=== PATIENT | male | born 1960 | race Caucasian/White ===

== ENCOUNTER 2023-05-27 11:26 | Outpatient (OUT) | payer OTHER, SELFPAY ==
[2023-05-27 12:18] LABS: Basophils Absolute Auto 0.1 10^3/uL (0.0-0.1); Basophils Percent Auto 1.2 % (0.2-2.0); Eosinophils Absolute Auto 0.2 10^3/uL (0.0-0.7); Eosinophils Percent Auto 4.2 % (0.9-7.0); Hematocrit 27.4 % (42.0-54.0); Hemoglobin 7.8 g/dL (14.0-18.0); Immature Granulocytes Abs Auto 0.02 10^3/uL (0.00-0.03); Immature Granulocytes Pct Auto 0.4 % (0.0-0.5); Lymphocytes Absolute Auto 0.8 10^3/uL (1.2-3.8); Lymphocytes Percent Auto 13.5 % (20.5-60.0); Mean Corpuscular HGB Conc 28.5 g/dL (29.9-35.2); Mean Corpuscular Volume 80.8 fL (80.0-94.0); Mean Platelet Volume 9.3 fL (9.5-13.5); Monocytes Absolute Auto 0.6 10^3/uL (0.3-0.8); Neutrophils Percent Auto 70.7 % (43.0-75.0); Platelet Count 340 10^3/uL (150-450); Red Blood Count 3.39 10^6/uL (4.70-6.10); Red Cell Distribution Width 17.1 % (11.0-15.0); White Blood Count 5.7 10^3/uL (4.0-11.0)
[2023-05-27 12:30] LABS: Estimated Average Glucose 105 mg/dL; Glycohemoglobin A1C 5.3 % (4.5-6.2)
[2023-05-27 13:09] LABS: Prostate Specific Antigen Scrn 0.81 ng/mL (<=4.00)
[2023-05-27 14:06] LABS: Alanine Aminotransferase 16 U/L (16-63); Albumin Globulin Ratio 0.8; Albumin Level 3.1 g/dL (3.4-5.0); Alkaline Phosphatase 70 U/L (46-116); Anion Gap 11.5; Aspartate Amino Transferase 13 U/L (15-37); BUN Creatinine Ratio 9.9; Bilirubin Total 0.7 mg/dL (0.2-1.0); Calcium 8.5 mg/dL (8.5-10.1); Carbon Dioxide 26.8 mmol/L (21.0-32.0); Chloride 106 mmol/L (98-107); Chol HDL Ratio 2.8; Cholesterol 82 mg/dL (<=200); Estimated GFR (African America >60 (>=60); Estimated GFR (Non-African Ame >60 (>=60); Free T3 2.83 pg/mL (2.18-3.98); Globulin 3.8 g/dL; Glucose 97 mg/dL (74-106); HDL Cholesterol 29 mg/dL (40-60); Potassium 4.3 mmol/L (3.5-5.1); Sodium 140 mmol/L (136-145); Thyroid Stimulating Hormone 1.428 uIU/mL (0.358-3.740); Total Protein 6.9 g/dL (6.4-8.2); Triglycerides 109 mg/dL (<=150); Uric Acid 5.7 mg/dL (3.5-7.2); VLDL CHOLESTEROL 21.8 mg/dL
[2023-05-28 12:09] LABS: Insulin 13.4 uIU/mL (2.6-24.9)
== END 2023-05-27 11:27 | disposition home or self-care (01) ==
LOC: LAB 11:34
PROVIDERS: PCP Family Medicine; Visit Provider Family Medicine
DX: Z00.00 Encounter for general adult medical examination without abnormal findings (principal); E78.5 Hyperlipidemia, unspecified; R73.09 Other abnormal glucose; Z12.5 Encounter for screening for malignant neoplasm of prostate; Z12.12 Encounter for screening for malignant neoplasm of rectum
CPT/HCPCS: 36415; 80053; 80061; 83036; 83525; 84436; 84443; 84481; 84550; 85025; G0103

== ENCOUNTER 2023-05-28 16:35 | Outpatient (OUT) | payer OTHER, SELFPAY ==
[2023-05-28 16:59] LABS: Basophils Absolute Auto 0.1 10^3/uL (0.0-0.1); Basophils Percent Auto 0.9 % (0.2-2.0); Eosinophils Absolute Auto 0.3 10^3/uL (0.0-0.7); Eosinophils Percent Auto 4.1 % (0.9-7.0); Hematocrit 25.9 % (42.0-54.0); Hemoglobin 7.2 g/dL (14.0-18.0); Immature Granulocytes Abs Auto 0.03 10^3/uL (0.00-0.03); Immature Granulocytes Pct Auto 0.5 % (0.0-0.5); Lymphocytes Absolute Auto 0.9 10^3/uL (1.2-3.8); Lymphocytes Percent Auto 14.6 % (20.5-60.0); Mean Corpuscular HGB Conc 27.8 g/dL (29.9-35.2); Mean Corpuscular Volume 80.2 fL (80.0-94.0); Mean Platelet Volume 9.1 fL (9.5-13.5); Monocytes Absolute Auto 0.6 10^3/uL (0.3-0.8); Neutrophils Absolute Auto 4.5 10^3/uL (1.4-6.5); Neutrophils Percent Auto 70.9 % (43.0-75.0); Platelet Count 341 10^3/uL (150-450); Red Blood Count 3.23 10^6/uL (4.70-6.10); Red Cell Distribution Width 17.3 % (11.0-15.0); White Blood Count 6.4 10^3/uL (4.0-11.0)
[2023-05-28 17:00] LABS: Mean Corpuscular Hemoglobin 22.3 pg (25.9-34.0)
[2023-05-28 17:08] LABS: INR 1.06; Partial Thromboplastin Time 29.2 sec (22.3-36.2); Prothrombin Time 11.2 sec (9.0-11.6)
== END 2023-05-28 16:36 | disposition home or self-care (01) ==
LOC: LAB 16:39
PROVIDERS: PCP Family Medicine; Visit Provider Family Medicine
DX: D64.9 Anemia, unspecified (principal)
CPT/HCPCS: 36415; 82728; 83540; 85025; 85610; 85730

== ENCOUNTER 2023-05-31 09:52 | Outpatient (OUT) | payer OTHER, SELFPAY ==
[2023-05-31 12:46] LABS: Hematocrit 25.1 % (42.0-54.0)
== END 2023-05-31 09:53 | disposition home or self-care (01) ==
LOC: LAB 09:52
PROVIDERS: PCP Family Medicine; Visit Provider Family Medicine
DX: D64.9 Anemia, unspecified (principal)
CPT/HCPCS: 36415; 85014; 85018; 86850; 86900; 86901

== ENCOUNTER 2023-06-11 07:40 | Outpatient (RCR) | payer OTHER, SELFPAY ==
[2023-06-02] VITALS (8 sets, daily range): BP systolic 146–177; BP diastolic 71–83; PULSE 59–67; RESP 14–18; TEMP 36.4–36.8; O2SAT 95–97
--- NOTE | 2023-06-02 11:02 | PC.NURSE ---
1020: Pt. to [facility] amb. for PRBC transfusion. VSS. #22 gauge iv initiated to right hand on first attempt. Blood drawn for labs. Flushes easily with no redness or edema. Pt. tolerated without c/o. Blood consent obtained, questions addressed.
--- NOTE | 2023-06-02 11:22 | PC.NURSE ---
1119: First unit PRBC initiated at this time. Lunch tray ordered. Pt. denies c/o.
[2023-06-02] MEDS: 0.9 % SODIUM CHLORIDE 250 ML 20 ML IV (11:26)
--- NOTE | 2023-06-02 12:23 | PC.NURSE ---
Pt. tolerating infusion without s&s of adverse reaction. Denies needsl.
--- NOTE | 2023-06-02 13:17 | PC.NURSE ---
1300: First unit PRBC completed without s&s of transfusion reaction. VSS. 1313: Second unit PRBC initiate at this time. Pt. denies needs or c/o.
--- NOTE | 2023-06-02 14:42 | PC.NURSE ---
1430: Pt. without c/o or needs. VSS.
--- NOTE | 2023-06-02 15:00 | PC.NURSE ---
1450: Second unit PRBC completed without s&s of transfusion reaction. IV d/c'd, pressure to site. Up to bathroom. 1455: Pt. without changes or c/o. D/c'd amb to home.
[2023-06-04 16:13] VITALS: BP 156/83; PULSE 56; RESP 16; TEMP 36.4; O2SAT 96
--- NOTE | 2023-06-04 16:16 | PC.NURSE ---
1520: Pt. to [facility] amb. for iron infusion. Seated in recliner. VSS. IV initiated to right hand. Flushes easily. Pt. tolerates without c/o. IV Injectafer initiated. Pt. given Pepsi. Denies needs. 1608: IV Injectafer completed without s&s of adverse reaction. IV d/c'd, pressure to site. 1609: Pt. d/c'd amb. to home.
[2023-06-11 11:00] VITALS: BP 178/78; PULSE 75; RESP 18; TEMP 36.9; O2SAT 96
== END 2023-07-01 23:59 | disposition home or self-care (01) ==
LOC: INF 07:40
PROVIDERS: PCP Family Medicine; Visit Provider Family Medicine
DX: D50.9 Iron deficiency anemia, unspecified (principal)
CPT/HCPCS: 36415; 36430; 96365; J1439; P9016

== ENCOUNTER 2023-06-17 06:36 | Outpatient (OUT) | payer OTHER, SELFPAY ==
--- NOTE | 2023-06-17 06:15 | NM_ITS ---
Patient: AYO ALICIA Exam Date: 06/17/2023 : 1960 Gender:M Ordering : DR Trevor Balderas . Admission #: [id number] Family : Order #: [id number] CLICK HERE TO VIEW EXAM RADIOLOGY REPORT PROCEDURE: NM TAIWO PERF SPECT REST STR COMPARISON: None. INDICATIONS: CHEST PAIN, FATIGUE TECHNIQUE: Exam Description: Stress/Rest one day protocol gated SPECT Rest Imagin.5 mCi Tc-99m Cardiolite IV on 06/17/2023 Stress Imaging 31.3 mCi Tc-99m Cardiolite IV on 06/17/2023 Exercise Protocol: Mandeep Heart Rate (bpm): Rest: 58 Max: 136 PMHR: 87 Blood Pressure: Rest: 152/88 Max: 222/98 Exercise Time: Minutes: 4 Seconds: 45 Stage Reached: Stage: 2 Mets 7.0 Symptoms: Rest and peak stress ECG findings were pending and the exercise portion of the study was pending per attending physician Dr. HAGAN . For more details please see separate cardiac stress test report. FINDINGS: QUALITY OF STUDY: Good. PERFUSION DEFECT: LOCATION: Basal inferior. Mid-inferior. SIZE: Small (1-2 segments). SEVERITY: Mild. TYPE: Persistent. WALL MOTION: Normal. LV SIZE: Normal. 107 mL. TID / TCD: None; 0.9 LVEF: Normal. Calculated EF 65%. SUMMARY: Myocardial perfusion imaging study has ABNORMAL findings. CONCLUSION: 1. Small fixed defect inferior wall, RCA distribution. No reversible ischemia 2. Pending exercise test Dictated by: Marquez Potter MD on 06/19/2023 at 10:55 Approved by: Marquez Potter MD on 06/19/2023 at 10:56
--- NOTE | 2023-06-18 17:53 | PM.STRESS ---
Stress Test Stress Test Allergies Allergy/AdvReac Type Severity Reaction Status Date / Time No Known Drug Allergies Allergy Verified 06/02/23 11:34 Requesting physician: Trevor Balderas Procedure: Exercise Cardiolite stress test General Information: Reason for Stress Test: Chest pain Cardiac History and Risk Factors: Afib. Resting 12 - Lead Electrocardiogram: Rate & rhythm: Sinus bradycardia at a rate of 58. [place]: Normal T-waves: Normal ST-segments:Normal Stress Test: Protocol: Mandeep protocol was followed, with injection of Cardiolite once target heart rate was achieved. Exercise capacity: Fair exercise capacity. Total exercise time of 4minutes 46seconds reached Mandeep stage 2 at 2.5MPH, 12% grade, & 7 METs. Blood pressure: Initial: 152/88, Maximum: 222/98, Recovery: 188/90 Rate & rhythm: Patient remained in Sinus rhythm during the exercise and recovery portions of the study.? The maximum heart rate was 136, which was 87% of the maximum predicted heart rate. Rare PACs. ST-segments & T-waves: There were no T-wave changes and no ST-segment changes when compared to the baseline EKG. Patient response/symptoms: There were no symptoms similar to the chief complaint. Interpretation: Normal exercise stress test. No reproducible symptoms. Cardiolite imaging interpretation will be reported separately. Clinical correlation required.?
== END 2023-06-17 06:37 | disposition home or self-care (01) ==
LOC: NM 06:37
PROVIDERS: PCP Family Medicine; Visit Provider Family Medicine
DX: R07.9 Chest pain, unspecified (principal)
CPT/HCPCS: 78452; 93017; A9500

== ENCOUNTER 2023-08-02 21:19 | Emergency (ER) | payer OTHER, SELFPAY ==
[2023-08-02 21:28] VITALS: BP 192/86; PULSE 59; RESP 16; TEMP 37.3; O2SAT 99; BMI 28.2
[2023-08-02 21:36] VITALS: PULSE 56
[2023-08-02 21:40] VITALS: BP 179/93; PULSE 60; RESP 16; O2SAT 100
--- NOTE | 2023-08-02 22:09 | ED_ITS ---
HPI - Chest Pain General Chief Complaint: Chest Pain Stated Complaint: CHEST PAIN Time Seen by Provider: 08/02/23 21:41 Source: patient Mode of arrival: Wheelchair History of Present Illness HPI narrative: past history of A. Fib s/p ablation. Past history of CAD s/p stent. States his BP has been elevated. Tonight presents with pressure across his chest and a headache. No nausea or vomiting. MD complaint: Reports chest heaviness Related Data Home Medications Medication Instructions Recorded Confirmed apixaban 2.5 mg tablet (Eliquis) 2.5 mg PO BID 06/02/23 06/02/23 atorvastatin 80 mg tablet 80 mg PO DAILY 06/02/23 06/02/23 lisinopril 10 mg tablet 10 mg PO DAILY 06/02/23 06/02/23 metoprolol tartrate 100 mg tablet 100 mg PO BID 06/02/23 06/02/23 pantoprazole 40 mg tablet,delayed 40 mg PO DAILY 06/02/23 06/02/23 release spironolactone 25 mg tablet 25 mg PO DAILY 06/02/23 06/02/23 Allergies Allergy/AdvReac Type Severity Reaction Status Date / Time No Known Drug Allergies Allergy Verified 06/02/23 11:34 Review of Systems ROS Status of ROS 10 or more systems reviewed and unremarkable except as noted in history and below [facility] Medical History (Updated 08/03/23 @ 01:53 by Wade Murphy MD) Anemia ?D64.9 - Anemia, unspecified (ICD-10) Atrial fibrillation ?I48.91 - Unspecified atrial fibrillation (ICD-10) Crohn's disease ?K50.90 - Crohn's disease, unspecified, without complications (ICD-10) Essential hypertension ?I10 - Essential (primary) hypertension (ICD-10) Surgical History (Updated 06/02/23 @ 12:22 by Barrie Tee) H/O esophagogastroduodenoscopy ?Z98.890 - Other specified postprocedural states (ICD-10) H/O neck surgery ?Z98.890 - Other specified postprocedural states (ICD-10) History of arthroscopic knee surgery ?Z98.890 - Other specified postprocedural states (ICD-10) History of cardiac radiofrequency ablation ?Z98.890 - Other specified postprocedural states (ICD-10) History of heart artery stent ?Z95.5 - Presence of coronary angioplasty implant and graft (ICD-10) History of lumbar surgery ?Z98.890 - Other specified postprocedural states (ICD-10) History of total knee arthroplasty ?Z96.659 - Presence of unspecified artificial knee joint (ICD-10) Hx of colonoscopy ?Z98.890 - Other specified postprocedural states (ICD-10) Exam Constitutional Vital Signs, click to edit/add: Last Vital Signs Temp 99.1 F 08/02/23 21:28 Pulse 60 08/03/23 01:45 Resp 20 08/03/23 01:45 BP 154/90 H 08/03/23 01:45 Pulse Ox 99 08/03/23 01:45 O2 Del Method Room Air 08/03/23 01:45 Common normals: no apparent distress, average body habitus, oriented x3, no limitations, healthy appearing, alert and well nourished Eye Common normals: EOMs intact bilaterally and conjunctivae normal Respiratory Common normals: normal respiratory effort, no retractions and no use of accessory muscles Cardio Common normals: regular rate, regular rhythm, S1 normal heart sound and S2 normal heart sound GI Common normals: Normal to inspection, nondistended, normoactive bowel sounds present, soft to palpation and non-tender Extremity Common normals: normal to inspection and full ROM Neuro Common normals: oriented x3, CN's II-XII intact bilaterally, moves all extremities and no focal motor deficits Psych Appearance: grossly normal Course Vital Signs Vital signs: Vital Signs Temperature 99.1 F 08/02/23 21:28 Pulse Rate 59 L 08/02/23 21:28 Respiratory Rate 16 08/02/23 21:28 Blood Pressure 192/86 H 08/02/23 21:28 Pulse Oximetry 99 08/02/23 21:28 Oxygen Delivery Method Room Air 08/02/23 21:28 Temperature 99.1 F 08/02/23 21:28 Pulse Rate 60 08/03/23 01:45 Respiratory Rate 20 08/03/23 01:45 Blood Pressure 154/90 H 08/03/23 01:45 Pulse Oximetry 99 08/03/23 01:45 Oxygen Delivery Method Room Air 08/03/23 01:45 MDM - Chest Pain MDM Narrative Medical decision making narrative: patient presented with hypertension, headache and pressure sensation of his chest. past history of CAD. We treated his HTN with one dose of Hydralazine and as his pressure came down the headache and chest pressure resolved. Serial troponin neg. EKG normal. no acute changes . Cxray clear. Discharged home and advised to follow up with his doctor regarding his BP Lab Data Labs: Lab Results 08/02/23 08/03/23 Range/Units 21:48 01:00 WBC 6.5 (4.0-11.0) 10^3/uL RBC 3.59 L (4.70-6.10) 10^6/uL Hgb 10.4 L (14.0-18.0) g/dL Hct 31.8 L (42.0-54.0) % MCV 88.6 (80.0-94.0) fL MCH 29.0 (25.9-34.0) pg MCHC 32.7 (29.9-35.2) g/dL RDW 18.6 H (11.0-15.0) % Plt Count 275 (150-450) 10^3/uL MPV 8.7 L (9.5-13.5) fL Neut % (Auto) 65.5 (43.0-75.0) % Lymph % (Auto) 20.6 (20.5-60.0) % [place] % (Auto) 9.7 (1.7-12.0) % Eos % (Auto) 2.8 (0.9-7.0) % Baso % (Auto) 1.1 (0.2-2.0) % Neut # (Auto) 4.3 (1.4-6.5) 10^3/uL Lymph # (Auto) 1.3 (1.2-3.8) 10^3/uL [place] # (Auto) 0.6 (0.3-0.8) 10^3/uL Eos # (Auto) 0.2 (0.0-0.7) 10^3/uL Baso # (Auto) 0.1 (0.0-0.1) 10^3/uL Abs Immat Gran (auto) 0.02 (0.00-0.03) 10^3/uL Imm/Tot Granulo (auto) 0.3 (0.0-0.5) % Sodium 140 (136-145) mmol/L Potassium 3.1 L (3.5-5.1) mmol/L Chloride 104 (98-107) mmol/L Carbon Dioxide 29.7 (21.0-32.0) mmol/L Anion Gap 9.4 BUN 11.0 (7.0-18.0) mg/dL Creatinine 0.87 (0.70-1.30) mg/dL Est GFR ( Amer) >60 (>=60) Est GFR (Non-Af Amer) >60 (>=60) BUN/Creatinine Ratio 12.6 Glucose 95 (74-106) mg/dL Calcium 7.9 L (8.5-10.1) mg/dL Troponin I High Sens 18.2 17.2 (4.0-76.1) pg/mL Imaging Data Chest x-ray: Radiologist's impression: signed Patient Location: ER Current Patient Location: ER Accession/Order Number: [id number] Exam Date: 08/02/2023 22:25 Report Date: 08/02/2023 22:41 At the request of: WADE MURPHY Procedure: XR chest 1V EXAMINATION: XR chest 1V HISTORY: Chest pain COMPARISON: Chest x-ray 10/21/2022 TECHNIQUE: Portable chest FINDINGS: The lung parenchyma is free of consolidation or infiltrate. Stable calcified pulmonary granuloma. No pneumothorax or pleural effusion. The cardiac, mediastinal and hilar contours are normal. The visualized osseous structures exhibit no gross abnormality. XR/XR chest 1V IMPRESSION: No acute ca Discharge Plan Discharge Chief Complaint: Chest Pain Clinical Impression: Hypertensive urgency, Chest pain Patient Disposition: Home, Self-Care Prescriptions / Home Meds: No Action Eliquis 2.5 mg tablet 2.5 mg PO BID spironolactone 25 mg tablet 25 mg PO DAILY atorvastatin 80 mg tablet 80 mg PO DAILY pantoprazole 40 mg tablet,delayed release (DR/EC) 40 mg PO DAILY lisinopril 10 mg tablet 10 mg PO DAILY metoprolol tartrate 100 mg tablet 100 mg PO BID Instructions: Chest Pain (ED), Hypertension (ED) Additional Instructions: follow up with Dr Balderas next week for recheck Stand Alone Forms: Portal Instructions Referrals: Trevor Balderas MD [Primary Care Provider] - 1 week
--- NOTE | 2023-08-02 22:12 | XR_ITS ---
The [address] [address] Patient Name: AYO ALICIA MRN: [id number] date: 1960 Sex: M Assigned Patient Location: ER Current Patient Location: ER Accession/Order Number: [id number] Exam Date: 08/02/2023 22:25 Report Date: 08/02/2023 22:41 At the request of: ELIU MADERA Procedure: XR chest 1V EXAMINATION: XR chest 1V HISTORY: Chest pain COMPARISON: Chest x-ray 10/21/2022 TECHNIQUE: Portable chest FINDINGS: The lung parenchyma is free of consolidation or infiltrate. Stable calcified pulmonary granuloma. No pneumothorax or pleural effusion. The cardiac, mediastinal and hilar contours are normal. The visualized osseous structures exhibit no gross abnormality. XR/XR chest 1V IMPRESSION: No acute cardiopulmonary abnormality. Electronically authenticated by: CUBA RO Date: 08/02/2023 22:41
--- NOTE | 2023-08-02 22:12 | ECG_ITS ---
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
[2023-08-02 22:18] VITALS: O2SAT 97
[2023-08-02 22:22] LABS: Basophils Absolute Auto 0.1 10^3/uL (0.0-0.1); Basophils Percent Auto 1.1 % (0.2-2.0); Eosinophils Absolute Auto 0.2 10^3/uL (0.0-0.7); Eosinophils Percent Auto 2.8 % (0.9-7.0); Hematocrit 31.8 % (42.0-54.0); Hemoglobin 10.4 g/dL (14.0-18.0); Immature Granulocytes Abs Auto 0.02 10^3/uL (0.00-0.03); Immature Granulocytes Pct Auto 0.3 % (0.0-0.5); Lymphocytes Absolute Auto 1.3 10^3/uL (1.2-3.8); Lymphocytes Percent Auto 20.6 % (20.5-60.0); Mean Corpuscular HGB Conc 32.7 g/dL (29.9-35.2); Mean Corpuscular Volume 88.6 fL (80.0-94.0); Mean Platelet Volume 8.7 fL (9.5-13.5); Monocytes Absolute Auto 0.6 10^3/uL (0.3-0.8); Monocytes Percent Auto 9.7 % (1.7-12.0); Neutrophils Absolute Auto 4.3 10^3/uL (1.4-6.5); Neutrophils Percent Auto 65.5 % (43.0-75.0); Platelet Count 275 10^3/uL (150-450); Red Blood Count 3.59 10^6/uL (4.70-6.10); Red Cell Distribution Width 18.6 % (11.0-15.0); White Blood Count 6.5 10^3/uL (4.0-11.0)
--- NOTE | 2023-08-02 22:28 | PC.NURSE ---
states aches mid sternal 5 / 10.
[2023-08-02] MEDS: HYDRALAZINE HCL 20 MG/ML VIAL 5 MG IVP (22:33)
[2023-08-02 22:35] LABS: Anion Gap 9.4; BUN Creatinine Ratio 12.6; Calcium 7.9 mg/dL (8.5-10.1); Carbon Dioxide 29.7 mmol/L (21.0-32.0); Chloride 104 mmol/L (98-107); Estimated GFR (African America >60 (>=60); Estimated GFR (Non-African Ame >60 (>=60); Glucose 95 mg/dL (74-106); Potassium 3.1 mmol/L (3.5-5.1); Sodium 140 mmol/L (136-145); Troponin I High Sensitivity 18.2 pg/mL (4.0-76.1)
[2023-08-02] MEDS: POTASSIUM CHLORIDE 10 MEQ ER TABLET 40 MEQ PO (23:27)
[2023-08-03 00:13] VITALS: BP 160/80
[2023-08-03 00:20] VITALS: BP 165/86; PULSE 66; RESP 16; O2SAT 98
[2023-08-03 00:55] VITALS: BP 143/80
[2023-08-03 01:22] LABS: Troponin I High Sensitivity 17.2 pg/mL (4.0-76.1)
[2023-08-03 01:45] VITALS: BP 154/90; PULSE 60; RESP 20; O2SAT 99
[2023-08-03 02:54] VITALS: BP 157/87; PULSE 67; RESP 18; O2SAT 97
== END 2023-08-03 02:20 | disposition home or self-care (01) ==
PROVIDERS: Emergency Provider Internal Medicine; PCP Family Medicine
DX: I16.0 Hypertensive urgency (principal); R07.9 Chest pain, unspecified; I25.10 Atherosclerotic heart disease of native coronary artery without angina pectoris; I48.91 Unspecified atrial fibrillation; K50.90 Crohn's disease, unspecified, without complications; Z98.890 Other specified postprocedural states; Z96.659 Presence of unspecified artificial knee joint; Z95.5 Presence of coronary angioplasty implant and graft; Z79.01 Long term (current) use of anticoagulants; Z79.899 Other long term (current) drug therapy
CPT/HCPCS: 36415; 71045; 80048; 84484; 85025; 93005; 96374; 99285

== ENCOUNTER 2023-08-26 09:34 | Outpatient (OUT) | payer OTHER, SELFPAY ==
[2023-08-26 10:07] LABS: Anion Gap 8.3; Calcium 8.7 mg/dL (8.5-10.1); Carbon Dioxide 31.2 mmol/L (21.0-32.0); Chloride 100 mmol/L (98-107); Estimated GFR (African America >60 (>=60); Estimated GFR (Non-African Ame >60 (>=60); Glucose 109 mg/dL (74-106); Potassium 3.5 mmol/L (3.5-5.1); Sodium 136 mmol/L (136-145)
== END 2023-08-26 09:35 | disposition home or self-care (01) ==
LOC: LAB 09:38
PROVIDERS: PCP Family Medicine; Visit Provider Nurse Practitioner Family
DX: I10 Essential (primary) hypertension (principal)
CPT/HCPCS: 36415; 80048

== ENCOUNTER 2023-09-18 13:07 | Outpatient (REF) | payer OTHER, SELFPAY ==
--- OUTSIDE RECORDS SUMMARY | 2023-09-18 13:11 | XMS_ITS | CCD ---
Author Name Unknown Address [address] [facility] [address] [place] [address] Organization [facility] Care Team Providers Care Bowling Alley Floors Installer Name Role Phone UNKNOWN, PHYSICIAN Primary Care Unavailable UNKNOWN, PHYSICIAN Referring Unavailable VIRAJ PAGANAB A Admitting Unavailable GLORIA PAGAN Attending Unavailable Perico Balderas Primary Care Physician MD Perico Balderas Primary Care Provider [phone] MD Enoch Robles Attending Provider Enoch Robles Unavailable Javid WILSON Attending Unavailable Perico Tubbs Referring Unavailabl e Javid WILSON Attending Unavailable ESTELLE ., DR RIVER Primary Care Unavailable NILL ., DR DIAZ Consulting Unavailable HOY ., DR RIVER Admitting Unavailable NILL ., DR DIAZ Attending Unavailable HOY ., DR RIVER Primary Care Unavailable HOY ., DR RIVER Admitting Unavailable HOY ., DR RIVER Consulting Unavailable HOY ., DR RIVER Attending Unavailable HOY ., DR RIVER Primary Care Unavailable NILL ., DR DIAZ Attending Unavailable NILL ., DR DIAZ Admitting Unavailable NILL ., DR DIAZ Consulting Unavailable JO LANG Consulting Unava ilable FAIZAY ., DR RIVER Primary Care Unavailable HOY ., DR RIVER Attending Unavailable HOY ., DR RIVER Consulting Unavailable HOY ., DR RIVER Admitting Unavailable DAVID, DR CUBA Mark Consulting Unavailable DARREN ELMORE Consulting Unavailable DARREN ELMORE Attending Unavailable HOY ., DR RIVER Primary Care Unavailable DARREN ELMORE Admitting Unavailable HOY ., DR RIVER Attending Unavailable HOY ., DR RIVER Primary Care Unavailable HOY ., DR RIVER Consulting Unavailable HOY ., DR RIVER Admitting Unavailable HOY ., DR RIVER Primary Care Unavailable HOY ., DR RIVER Attending Unavailable HOY ., DR RIVER Admitting Unavailable HOY ., DR RIVER Consulting Unavailable HOY ., DR RIVER Attending Unavailable HOY ., DR RIVER Admitting Unavailable HOY ., DR RIVER Primary Care Unavailable CUBA RO Consulting Unavailable HOY ., DR RIVER Attending Unavailable HOY ., DR RIVER Admitting Unavailable HOY ., DR RIVER Consulting Unavailable HOY ., DR RIVER Primary Care Unavailable ZICL MODI Consulting Unavailable CL POTTS Consulting Unavailable DARREN ELMORE Admitting Unavailable DARREN ELMORE Attending Unavailable HOY ., DR RIVER Primary Care Unavailable DARREN ELMORE Consulting Unavailable DEYVI, DR Michael Du Consulting Unavailable MISC, DR TRUJILLO Attending Unavailable HOY ., DR RIVER Primary Care Unavailable MISC, DR TRUJILLO Admitting Unavailable HOY ., DR RIVER Consulting Unavailable HOY ., DR RIVER Admitting Unavailable HOY ., DR RIVER Attending Unavailable HOY ., DR RIVER Primary Care Unavailable HOY ., DR RIVER Primary Care Unavailable DEYVI, DR Michael Du Consulting Unavailable DEYVI, DR Michael Du Attending Unavailable DEYVI, DR Michael Du Admitting Unavailable HOY ., DR RIVER Primary Care Unavailable NILL ., DR DIAZ Attending Unavailable NILL ., DR DIAZ Admitting Unavailable MEMPHIS, DR CUBA Mark Consulting Unavailable NILL ., DR DIAZ Consulting Unavailable HOY ., DR RIVER Attending Unavailable HOY ., DR RIVRE Primary Care Unavailable HOY ., DR RIVER Consulting Unavailable HOY ., DR RIVER Admitting Unavailable Enoch Robles Admitting UnavailPerico Lugo Primary Care Unavailable Enoch Robles Attending UnavailPerico Lugo Primary Care Unavailable Enoch Robles Attending UnavailEnoch Duffy Admitting UnavailMD Perico Lugo Primary Care Provider [phone] MD Enoch Robles Attending Provider Perico Balderas MD Primary Care Provider [phone] DARREN ELMORE Referring Unavailable DARREN ELMORE Attending Unavailable DARREN ELMORE Admitting Unavailable DARREN ELMORE Attending Unavailable CHELSI RUSSELL Attending Unavailable DARREN ELMORE Attending Unavailable PAULINE MELENDEZ Attending Unavailable ROEL BARAHONA Referring Unavailable PAULINE MELENDEZ Attending Unavailable DARREN ELMORE Referring Unavailable DARREN ELMORE Referring Unavailable LETHA MONTOYA Referring Unavailable PERICO BALDERAS Primary Care Unavailable CUBA TOMAS Referring Unavailable PERICO BALDERAS Primary Care Unavailable LETHA MONTOYA Admitting Unavailable LETHA MONTOYA Attending Unavailable ZOIE BARNHART Attending Unavailable PERICO BALDERAS Primary Care Unavailable Medications Current Medications Medication Drug Class(es) Dates Sig (Normalized) Sig (Original) acetaminophen 325 mg oral tablet (1 source) take 2 tablets by mouth every six hours as needed for pain acetaminophen (TYLENOL) 325 mg tablet Take 2 tablets (650 mg total) by mouth every 6 (six) hours as needed for pain. 0 Active apixaban 5 mg oral tablet (13 sources) Factor Xa Inhibitor Start: 04-01-2022 take 1 tablet by mouth twice daily Apixaban (Eliquis) 5 mg Tablet Active 5 MG PO Twice daily June 10, 2022 12:00am atorvastatin 80 mg oral tablet (13 sources) HMG-CoA Reductase Inhibitor Start: 04-23-2021 take 80 mg by mouth once daily Atorvastatin Active 80 MG PO Daily June 10, 2022 12:00am budesonide 3 mg delayed release oral capsule (6 sources) Corticosteroid Start: 08-13-2022 take 3 capsules by mouth every twenty-four hours Budesonide 3 MG 3 capsules Orally Once a day for 30 days Aug, Active doxazosin 4 mg oral tablet (1 source) alpha-Adrenergic César Start: 04-01-2022 take 1 tablet by mouth once daily doxazosin 4 mg Tab 4 mg = 1 tab(s), Oral, Daily, Refills(s) 0 Start Date: 04/01/22 Status: Ordered hyoscyamine sulfate 0.125 mg oral tablet (1 source) Start: 03-28-2022 take 1 tablet by mouth four times daily as needed for pain Levsin 0.125 mg SL Tab 0.125 mg = 1 tab(s), Oral, QID, PRN Pain, Refills(s) 0 Start Date: 03/28/22 Status: Ordered 24 hr isosorbide mononitrate 30 mg extended release oral tablet (3 sources) Nitrate Vasodilator Start: 06-10-2022 take 30 mg by mouth once daily Isosorbide Mononitrate Active 30 MG PO Daily June 10, 2022 12:00am Start: 04-01-2022 take 1 tablet by lorna th once daily in the morning isosorbide mononitrate 30 mg ER Tab 30 mg = 1 tab(s), Oral, qAM, Refills(s) 0 Start Date: 04/01/22 Status: Ordered lisinopril 20 mg oral tablet (2 sources) Angiotensin Converting Enzyme Inhibitor take 1 tablet by mouth every twenty-four hours Lisinopril 20 MG 1 tablet Orally Once a day Active meloxicam 15 mg oral tablet (3 sources) Nonsteroidal Anti-inflammatory Drug Start: 06-10-20 take 15 mg by mouth once daily Meloxicam Active 15 MG PO Daily June 10, 2022 12:00am Start: 02-02-2021 take 1 mg by mouth once daily meloxicam 15 mg oral tablet mg tab(s), Oral, Daily, Refills(s) 0 Start Date: 02/02/21 Status: Ordered metoprolol tartrate 50 mg oral tablet (13 sources) beta-Adrenergic César Start: 06-10-2022 take 50 mg by mouth once daily Metoprolol Tartrate Active 50 MG PO Daily June 10, 2022 12:00am Start: 04-01-2022 take 1 tablet by lorna th once daily Metoprolol tartrate 50 mg Tab 50 mg = 1 tab(s), Oral, Daily, Refills(s) 0 Start Date: 04/01/22 Status: Ordered take 1 tablet by lorna th every twelve hours Metoprolol Tartrate 50 MG 1 tablet with food Orally Twice a day Active take 1 tablet by lorna th in the morning, then take 1 tablet by mouth at bedtime metoprolol tartrate (LOPRESSOR) 100 mg tablet Take 1 tablet (100 mg total) by mouth in the morning and 1 tablet (100 mg total) before bedtime. 0 Active pantoprazole 20 mg delayed release oral tablet (13 sources) Proton Pump Inhibitor Start: 06-10-2022 take 20 mg by mouth once daily Pantoprazole Active 20 MG PO Daily June 10, 2022 12:00am Start: 04-23-2021 take 1 mg by mouth once daily Protonix 40 mg Tab-DR mg tab(s), Oral, Daily, Refills(s) 0 Start Date: 04/23/21 Status: Ordered sildenafil 100 mg oral tablet (1 source) Phosphodiesterase 5 Inhibitor Start: 02-02-2021 take 1 mg by mouth once daily Viagra 100 mg Tab mg tab(s), Oral, Daily, Refills(s) 0 Start Date: 02/02/21 Status: Ordered spironolactone 25 mg oral tablet (6 sources) Aldosterone Antagonist Start: 04-23-2023 take 1 tablet by mouth every twenty-four hours Spironolactone 25 MG 1 tablet Orally Once a day for 30 days Apr, Active Completed/Discontinued Medications Medication Drug Class(es) Dates Sig (Normalized) Sig (Original) sulfaSALAzine 500 mg oral tablet (9 sources) Aminosalicylate take 2 tablets by mouth every twelve hours sulfaSALAzine 500 MG 2 TABLETS Orally TWICE A DAY Not-Taking/PRN Problems Active Problems Problem Classification Problem Date Documented Da te Episodic/Chronic Acute and unspecified renal failure (1 source) Acute kidney failure, unspecified; Translations: [ACUTE KIDNEY FAILURE UNSPECIFIED] Onset: 10-28-2022 Episodic Cardiac dysrhythmias (9 sources) Unspecified atrial fibrillation; Translations: [Paroxysmal atrial fibrillation] Onset: 05-10-2022 Chronic Cataract (1 source) Cataract Onset: 09-16-2023 Congestive heart failure; nonhypertensive (1 source) Unspecified diastolic (congestive) heart failure; Translations: [UNSPECIFIED DIASTOLIC HEART FAILURE] Onset: 03-12-2022 Chronic Coronary atherosclerosis and other heart disease (5 sources) Atherosclerotic heart disease of [place] coronary artery without angina pectoris; Translations: [Coronary arteriosclerosis] Onset: 05-10-2022 08-27-2023 Chronic Deficiency and other anemia (8 sources) Anemia due to chronic blood loss; Translations: [Iron deficiency anemia secondary to blood loss (chronic)] Chronic Deficiency and other anemia (1 source) Iron deficiency anemia secondary to blood loss (chronic); Translations: [Iron deficiency anemia due to chronic blood loss] Chronic Deficiency and other anemia (10 sources) Iron deficiency anemia; Translations: [Iron deficiency anemia, unspecified] Onset: 04-01-2022 Episodic Deficiency and other anemia (9 sources) Iron deficiency anemia, unspecified; Translations: [IRON DEFICIENCY ANEMIA UNSPECIFIED] Onset: 07-11-2022 Episodic Diverticulosis and diverticulitis (1 source) Diverticulosis of large intestine without perforation or abscess without bleeding; Translations: [DVRTCLOS LG INT NO PERF/ABSC W/O BL] Onset: 05-10-2022 Chronic Essential hypertension (4 sources) Hypertensive disorder; Translations: [Essential (primary) hypertension] Onset: 09-24-2022 02-02-2021 Chronic Heart valve disorders (1 source) Rheumatic disorders of both mitral and aortic valves; Translations: [RHEUMATIC D/O MITRAL AORTIC VALVES] Onset: 05-10-2022 Chronic Hyperplasia of prostate (1 source) Benign prostatic hyperplasia without lower urinary tract symptoms; Translations: [BENIGN PROSTATIC HYPRPLASIA WO LUTS] Onset: 04-16-2022 Chronic Hypertension with complications and secondary hypertension (3 sources) Hypertensive heart disease with heart failure; Translations: [HTN HEART DISEASE W/HEART FAIL] Onset: 03-12-2022 Chronic Malaise and fatigue (1 source) Fatigue 02-02-2021 Episodic Osteoarthritis (1 source) Osteoarthritis 02-02-2021 Chronic Other aftercare (2 sources) Long-term current use of anticoagulant; Translations: [buttermaker continuous churn (current) use of anticoagulants] Onset: 04-01-2022 Episodic Other aftercare (1 source) buttermaker continuous churn (current) use of aspirin; Translations: [TIRE FABRICATOR CURRENT USE OF ASPIRIN] Onset: 10-28-2022 Episodic Other aftercare (1 source) Other penitentiary (current) drug therapy; Translations: [OTH RETIREMENT CURRENT DRUG THERAPY] Onset: 10-28-2022 Episodic Other gastrointestinal disorders (1 source) Irritable bowel syndrome without diarrhea; Translations: [IRRITABLE BOWEL SYND W/O DIARRHEA] Onset: 05-10-2022 Chronic Other lower respiratory disease (1 source) Shortness of breath; Translations: [SHORTNESS OF BREATH] Onset: 10-28-2022 Episodic Other male genital disorders (1 source) Impotence 02-02-2021 Chronic Other screening for suspected conditions (not mental disorders or infectious disease) (1 source) Abnormal findings on diagnostic imaging of other specified body structures; Translations: [ABNORML FIND DX IMG OTH BODY STRUC] Onset: 05-10-2022 Chronic Regional enteritis and ulcerative colitis (18 sources) Crohn's disease; Translations: [Crohn's disease, unspecified, without complications] Onset: 07-04-2022 Chronic Spondylosis; intervertebral disc disorders; other back problems (1 source) Cervical disc disorder 02-02-2021 Chronic Unclassified (1 source) Patient encounter status 04-23-2021 Unclassified (1 source) CONTACT W/AND (SUSP) EXPOS COVID-19; Translations: [CONTACT W/AND (SUSP) EXPOS COVID-19] Onset: 10-28-2022 Unclassified (3 sources) Other persistent atrial fibrillation; Translations: [OTHR PERSISTENT ATRIAL FIBRILLATION] Onset: 09-24-2022 Past or Other Problems Problem Classification Problem Date Documented Da te Episodic/Chronic Abdominal hernia (1 source) Diaphragmatic hernia without obstruction or gangrene; Translations: [DIAPH HERNIA W/O OBST/GANGRENE] Onset: 05-10-2022 Episodic Abdominal pain (18 sources) Periumbilical pain; Translations: [Periumbilical pain] Onset: 04-01-2022 Episodic Biliary tract disease (7 sources) Biliary calculus; Translations: [[place]] Onset: 04-16-2022 04-23-2021 Episodic Deficiency and other anemia (5 sources) Anemia, unspecified; Translations: [ANEMIA UNSPECIFIED] Onset: 03-12-2022 Episodic Lymphadenitis (1 source) Localized enlarged lymph nodes; Translations: [LOCALIZED ENLARGED LYMPH NODES] Onset: 04-16-2022 Episodic Nausea and vomiting (4 sources) Nausea; Translations: [Nausea] Onset: 04-01-2022 Episodic Noninfectious gastroenteritis (1 source) Noninfective gastroenteritis and colitis, unspecified; Translations: [NONINFECTIVE GE AND COLITIS UNS] Onset: 07-08-2022 Episodic Other aftercare (1 source) residential (current) use of anticoagulants; Translations: [RETIREMENT CURRNT USE ANTICOAGULANTS] Onset: 05-10-2022 Episodic Other gastrointestinal disorders (2 sources) Diarrhea, unspecified; Translations: [DIARRHEA UNSPECIFIED] Onset: 07-15-2022 Episodic Other gastrointestinal disorders (1 source) Change in bowel habit; Translations: [CHANGE IN BOWEL HABIT] Onset: 05-10-2022 Episodic Other gastrointestinal disorders (1 source) Ulcer of intestine; Translations: [Ulcer of intestine] Onset: 06-10-2022 Episodic Other screening for suspected conditions (not mental disorders or infectious disease) (8 sources) Other specified abnormal findings of blood chemistry; Translations: [Abnormal results of kidney function studies] Onset: 03-13-2022 Episodic Pleurisy; pneumothorax; pulmonary collapse (1 source) Pleural effusion, not elsewhere classified; Translations: [PLEURAL EFFUSION NEC] Onset: 04-16-2022 Episodic Results Test Name Value Interpretation Reference Range Facility 36on 09-11-2023 36 Can we please have him switch his metoprolol to carvedilol 25mg BID. Follow-up in clinic in [address]. [address] [facility] 36on 08-30-2023 36 Please let him know his recent labs show his kidney function is normal. Thank you [facility] HEMOGLOBINon 08-27-2023 Hemoglobin (Bld) [Mass/Vol] 12.3 g/dL Low 13.0-17.0 [facility] Comment on above: Performed By: #### 7 18-7 #### [facility] ([id number]) [address] [place] [address], [address] [place] [address] Hemoglobinon 08-27-2023 Hemoglobin (Bld) [Mass/Vol] 12.3 g/dL Low 13.0 - 17.0 g/dL [facility] Hemoglobin (Bld) [Mass/Vol]o n 08-27-2023 Interpretation and review of laboratory results Abnormal [facility] 36on 08-06-2023 36 Pt infomed appt made meds sent [facility] Orders Onlyon 08-06-2023 Orders Only [id number] Ayo Alicia 1960 M Date Provider Department Center 08/06/2023 Abdoulaye-MOUNIKA POMPA Family History Problem Relation Age of Onset Atrial fibrillation Mother Other Mother Other Mother Coronary artery disease Father Family Status - Relation Status Age at Mother Father [facility] 36on 08-04-2023 36 His blood pressure is too high. Please have him increase his lisinopril to 20mg daily (he can take 2 tablets of his current 10mg until this runs out). He will need follow-up BMP in 2 weeks. Follow-up in clinic in 3 months. Thanks [facility] Telephoneon 08-04-2023 Telephone [id number] WithAyo park 1960 M Date Provider Department Center 08/04/2023 MOUNIKA TREADWELL Family History Problem Relation Age of Onset Atrial fibrillation Mother Other Mother Other Mother Coronary artery disease Father Family Status - Relation Status Age at Mother Father [facility] 36on 07-02-2023 36 Patient needs phone call for BP check on 07/16/2023. Thanks. [facility] Office Visiton 07-02-2023 Follow-up visit [id number] WithAyo park 1960 M Date Provider Department Center 07/02/2023 CHELSI LINARES Family History Problem Relation Age of Onset Atrial fibrillation Mother Other Mother Other Mother Coronary artery disease Father Family Status - Relation Status Age at Mother Father Level of Service:62661 [place] OFFICE/OUTPATIENT ESTABLISHED MOD MDM 30-39 MIN [facility] Albumin [Mass/volume] in Ser um or Plasma by Bromocresol green (BCG) dye binding methoOrdered By: Enoch Robles on 04-23-2023 Albumin BCG dye [Mass/Vol] 3.8 g/dL 3.5-5.7 [facility] Basophils Auto (Bld) [#/Vol] Ordered By: Enoch Robles on 04-23-2023 Basophils (Bld) [#/Vol] 0.1 10*3/uL 0.0-0.2 [facility] Basophils/100 WBC Auto (Bld) Ordered By: Enoch Robles on 04-23-2023 Basophils/100 WBC (Bld) 0.8 % . [facility] Bilirubin.total [Mass/volume ] in Serum or PlasmaOrdered By: Enoch Robles on 04-23-2023 Bilirubin [Mass/Vol] 0.9 mg/dL 0.3-1.0 [facility] Calcium [Mass/volume] in Ser um or PlasmaOrdered By: Enoch Robles on 04-23-2023 Calcium [Mass/Vol] 8.7 mg/dL 8.6-10.3 [facility] Carbon dioxide, total [Moles /volume] in Serum or PlasmaOrdered By: Enoch Robles on 04-23-2023 CO2 [Moles/Vol] 29.7 mmol/L 21.0-31.0 [facility] Complete Blood Count Auto Di ffon 04-23-2023 Basophils (Bld) [#/Vol] 0.1 10*3/uL Normal 0.0-0.2 [facility] Comment on above: Order Comment: Reaso n for Exam Crohns disease Result Comment: PERF ORMED BY: [place] [address] PATHOLOGIST WET WASHER MACHINE ANIYA BRUCE M.D. Performed By: #### C BC, CMP #### [address] Basophils/100 WBC (Bld) 0.8 % Normal . [facility] Comment on above: Order Comment: Reaso n for Exam Crohns disease Performed By: #### C BC, CMP #### [facility] [address] [place] [address] [place] Eosinophils (Bld) [#/Vol] 0.1 10*3/uL Normal 0.0-0.45 [facility] Comment on above: Order Comment: Reaso n for Exam Crohns disease Performed By: #### C BC, CMP #### [address] Eosinophils/100 WBC (Bld) 1.4 % Normal . [facility] Comment on above: Order Comment: Reaso n for Exam Crohns disease Performed By: #### C BC, CMP #### [facility] [address] Erythrocyte distribution width (RBC) [Ratio] 19.1 % High 12.0-14.8 [facility] Comment on above: Order Comment: Reaso n for Exam Crohns disease Performed By: #### C BC, CMP #### [address] Hematocrit (Bld) [Volume fraction] 25.3 % Low 38.8-50.0 [facility] Comment on above: Order Comment: Reaso n for Exam Crohns disease Performed By: #### C BC, CMP #### [facility] [address] [place] [address] Hemoglobin (Bld) [Mass/Vol] 7.7 g/dL Low 13.0-17.0 [facility] Comment on above: Order Comment: Reaso n for Exam Crohns disease Performed By: #### C BC, CMP #### [address] Lymphocytes (Bld) [#/Vol] 0.7 10*3/uL Low 1.00-4.8 [facility] Comment on above: Order Comment: Reaso n for Exam Crohns disease Performed By: #### C BC, CMP #### [address] Lymphocytes/100 WBC (Bld) 7.2 % Normal . [facility] Comment on above: Order Comment: Reaso n for Exam Crohns disease Performed By: #### C BC, CMP #### [address] MCH (RBC) [Entitic mass] 22.0 pg Low 27.5-35.2 [facility] Comment on above: Order Comment: Reaso n for Exam Crohns disease Performed By: #### C BC, CMP #### [address] MCV (RBC) [Entitic vol] 72.5 fL Low 83.5-101 [facility] Comment on above: Order Comment: Reaso n for Exam Crohns disease Performed By: #### C BC, CMP #### [address] Mean Corpuscular HGB Conc 30.3 g/dL Low 32.5-35.6 [facility] Comment on above: Order Comment: Reaso n for Exam Crohns disease Performed By: #### C BC, CMP #### [address] Monocytes (Bld) [#/Vol] 0.8 10*3/uL Normal 0.0-0.8 [facility] Comment on above: Order Comment: Reaso n for Exam Crohns disease Performed By: #### C BC, CMP #### [facility] [address] [place] [address] [place] Monocytes/100 WBC (Bld) 8.0 % Normal . [facility] Comment on above: Order Comment: Reaso n for Exam Crohns disease Performed By: #### C BC, CMP #### [facility] [address] [place] [address] [place] Neutrophils (Bld) [#/Vol] 8.1 10*3/uL High 1.8-7.7 [facility] Comment on above: Order Comment: Reaso n for Exam Crohns disease Performed By: #### C BC, CMP #### [facility] [address] [place] [address] [place] Neutrophils/100 WBC (Bld) 82.6 % Normal . [facility] Comment on above: Order Comment: Reaso n for Exam Crohns disease Performed By: #### C BC, CMP #### [facility] [address] [place] [address] [place] NRBC% 0.1 /100{WBC} Normal 0-0.5 [facility] Comment on above: Order Comment: Reaso n for Exam Crohns disease Performed By: #### C BC, CMP #### [facility] [address] [place] [address] [place] Platelet mean volume (Bld) [Entitic vol] 7.5 fL Normal 6.6-10.1 [facility] Comment on above: Order Comment: Reaso n for Exam Crohns disease Performed By: #### C BC, CMP #### [facility] [address] [place] [address] [place] Platelets (Bld) [#/Vol] 359 10*3/uL Normal 150-450 [facility] Comment on above: Order Comment: Reaso n for Exam Crohns disease Performed By: #### C BC, CMP #### [facility] [address] [place] [address] [place] RBC (Bld) [#/Vol] 3.49 10*6/uL Low 3.90-5.60 [facility] Comment on above: Order Comment: Reaso n for Exam Crohns disease Performed By: #### C BC, CMP #### [facility] [address] WBC (Bld) [#/Vol] 9.8 10*3/uL Normal 4.1-10.5 [facility] Comment on above: Order Comment: Reaso n for Exam Crohns disease Performed By: #### C BC, CMP #### [facility] [address] [place] [id number] [facility] Comprehensive Metabolic Pane dianna 04-23-2023 Albumin [Mass/Vol] 3.174291 g/dL Normal 3.5-5.7 g/dL N [facility] [place] Other Bilirubin [Mass/Vol] 0.8202484 mg/dL Normal 0.3- 1.0 mg/dL [employer] Other Calcium [Mass/Vol] 8.8556160 mg/dL Normal 8.6-10 .3 mg/dL [employer] Other CO2 [Moles/Vol] 29.32635574 mmol/L Normal 21.0-3 1.0 mmol/L [employer] Other Creatinine [Mass/Vol] 1.77778662 mg/dL Normal 0. 70-1.30 mg/dL [employer] Other Potassium [Moles/Vol] 3.59632481 mmol/L Low 3 .5-5.1 mmol/L [employer] Other Protein [Mass/Vol] 6.309633 g/dL Low 6.4-8.9 g/dL N [facility] Other Comprehensive Metabolic Panel 2.2 g/dL [employer] Other Albumin [Mass/Vol] 3.8 g/dL Normal 3.5-5.7 [facility] Comment on above: Order Comment: Reaso n for Exam Crohns disease Performed By: #### C BC, CMP #### [facility] [address] Anion gap [Moles/Vol] 8.6 mmol/L Normal 6.0-15.0 [facility] Comment on above: Order Comment: Reaso n for Exam Crohns disease Performed By: #### C BC, CMP #### [facility] [address] Bilirubin [Mass/Vol] 0.9 mg/dL Normal 0.3-1.0 [facility] Comment on above: Order Comment: Reaso n for Exam Crohns disease Performed By: #### C BC, CMP #### [address] Calcium [Mass/Vol] 8.7 mg/dL Normal 8.6-10.3 [facility] Comment on above: Order Comment: Reaso n for Exam Crohns disease Performed By: #### C BC, CMP #### [address] CO2 [Moles/Vol] 29.7 mmol/L Normal 21.0-31.0 [facility] Comment on above: Order Comment: Reaso n for Exam Crohns disease Performed By: #### C BC, CMP #### [place] [address] [place] Creatinine [Mass/Vol] 1.08 mg/dL Normal 0.70-1.30 [facility] Comment on above: Order Comment: Reaso n for Exam Crohns disease Performed By: #### C BC, CMP #### [facility] [address] [place] [address] [place] GFR/1.73 sq M.predicted MDRD (S/P/Bld) [Vol rate/Area] mL/min/{1.73_m2} Normal [facility] Other Comment on above: Order Comment: Reaso n for Exam Crohns disease Performed By: #### C BC, CMP #### [address] [place] [address] [place] Globulin (S) [Mass/Vol] 2.2 g/dL Normal [facility] Comment on above: Order Comment: Reaso n for Exam Crohns disease Performed By: #### C BC, CMP #### [address] Potassium [Moles/Vol] 3.3 mmol/L Low 3.5-5.1 [facility] Comment on above: Order Comment: Reaso n for Exam Crohns disease Performed By: #### C BC, CMP #### [address] Protein [Mass/Vol] 6.0 g/dL Low 6.4-8.9 [facility] Comment on above: Order Comment: Reaso n for Exam Crohns disease Performed By: #### C BC, CMP #### [address] Comprehensive Metabolic Pane lOrdered By: Enoch Robles on 04-23-2023 Albumin/Globulin [Mass ratio] 1.7 {ratio} Normal [facility] Comment on above: Order Comment: Reaso n for Exam Crohns disease Performed By: #### C BC, CMP #### [address] ALP [Catalytic activity/Vol] 45 U/L Normal 34-104 [facility] Comment on above: Order Comment: Reaso n for Exam Crohns disease Result Comment: PERF ORMED BY: [place] [address] PATHOLOGIST W[employer] WASHER MACHINE ANIYA BRUCE M.D. Performed By: #### C BC, CMP #### [address] ALT [Catalytic activity/Vol] 12 U/L Normal 7-52 [facility] Comment on above: Order Comment: Reaso n for Exam Crohns disease Performed By: #### C BC, CMP #### [facility] [address] AST [Catalytic activity/Vol] 11 U/L Low 13-39 [facility] Comment on above: Order Comment: Reaso n for Exam Crohns disease Performed By: #### C BC, CMP #### [facility] [address] Chloride [Moles/Vol] 106 mmol/L Normal 98-107 [facility] Comment on above: Order Comment: Reaso n for Exam Crohns disease Performed By: #### C BC, CMP #### [facility] [address] Glucose [Mass/Vol] 140 mg/dL High 70-100 [facility] Comment on above: Order Comment: Reaso n for Exam Crohns disease Result Comment: Colt om Glucose Reference Range is dependent on time and content of last meal. Glucose of more than 200 mg/dL in a nonstressed, ambulatory subject supports the diagnosis of Diabetes Mellitus. ADA recommended reference range Performed By: #### C BC, CMP #### [facility] [address] ADA recommended refe rence rangeRandom Glucose Reference Range is dependent on time and content of last meal. Glucose of more than 200 mg/dL in a nonstressed, ambulatory subject supports the diagnosis of Diabetes Mellitus. Sodium [Moles/Vol] 141 mmol/L Normal 136-145 [facility] Comment on above: Order Comment: Reaso n for Exam Crohns disease Performed By: #### C BC, CMP #### [facility] [address] [place] [address] [place] Urea nitrogen [Mass/Vol] 15 mg/dL Normal 7-25 [facility] Comment on above: Order Comment: Reaso n for Exam Crohns disease Performed By: #### C BC, CMP #### [facility] [address] [place] [address] [place] Creatinine [Mass/volume] in Serum or PlasmaOrdered By: Enoch Robles on 04-23-2023 Creatinine [Mass/Vol] 1.08 mg/dL 0.70-1.30 [facility] Eosinophils Auto (Bld) [#/Vo l]Ordered By: Enoch Robles on 04-23-2023 Eosinophils (Bld) [#/Vol] 0.1 10*3/uL 0.0-0.45 [facility] Eosinophils/100 WBC Auto (Bl d)Ordered By: Enoch Robles on 04-23-2023 Eosinophils/100 WBC (Bld) 1.4 % . [facility] Erythrocyte distribution wid th Auto (RBC) [Ratio]Ordered By: Enoch Robles on 04-23-2023 Erythrocyte distribution width (RBC) [Ratio] 19.1 % 12.0-14.8 [facility] Globulin Calc (S) [Mass/Vol] Ordered By: Enoch Robles on 04-23-2023 Globulin (S) [Mass/Vol] 2.2 g/dL [facility] Hematocrit Auto (Bld) [Volum e fraction]Ordered By: Enoch Robles on 04-23-2023 Hematocrit (Bld) [Volume fraction] 25.3 % 38.8-50.0 [facility] Hemoglobin [Mass/volume] in BloodOrdered By: Enoch Robles on 04-23-2023 Hemoglobin (Bld) [Mass/Vol] 7.7 g/dL 13.0-17.0 [facility] Leukocytes [#/volume] correc miguel for nucleated erythrocytes in Blood by Automated counOrdered By: Enoch Robles on 04-23-2023 WBC corrected for nucl RBC Auto (Bld) [#/Vol] 9.8 10*3/uL 4.1-10.5 [facility] Lymphocytes Auto (Bld) [#/Vo l]Ordered By: Enoch Robles on 04-23-2023 Lymphocytes (Bld) [#/Vol] 0.7 10*3/uL 1.00-4.8 [facility] Lymphocytes/100 WBC Auto (Bl d)Ordered By: Enoch Robles on 04-23-2023 Lymphocytes/100 WBC (Bld) 7.2 % . [facility] MCH Auto (RBC) [Entitic mass ]Ordered By: Enoch Robles on 04-23-2023 MCH (RBC) [Entitic mass] 22.0 pg 27.5-35.2 [facility] MCHC Auto (RBC) [Mass/Vol]Or dered By: Enoch Robles on 04-23-2023 MCHC (RBC) [Mass/Vol] 30.3 g/dL 32.5-35.6 [facility] MCV Auto (RBC) [Entitic vol] Ordered By: Enoch Robles on 04-23-2023 MCV (RBC) [Entitic vol] 72.5 fL 83.5-101 [facility] Monocytes Auto (Bld) [#/Vol] Ordered By: Enoch Robles on 04-23-2023 Monocytes (Bld) [#/Vol] 0.8 10*3/uL 0.0-0.8 [facility] Monocytes/100 WBC Auto (Bld) Ordered By: Enoch Robles on 04-23-2023 Monocytes/100 WBC (Bld) 8.0 % . [facility] Neutrophils Auto (Bld) [#/Vo l]Ordered By: Enoch Robles on 04-23-2023 Neutrophils (Bld) [#/Vol] 8.1 10*3/uL 1.8-7.7 [facility] Neutrophils/100 WBC Auto (Bl d)Ordered By: Enoch Robles on 04-23-2023 Neutrophils/100 WBC (Bld) 82.6 % . [facility] No Panel InformationOrdered By: Enoch Robles on 04-23-2023 Estimated GFR (CKD-EPI) > 60.0 mL/Min [facility] Creatinine Clearance (Chem N/A [facility] Nucleated erythrocytes [Pres ence] in Blood by Automated countOrdered By: Enoch Robles on 04-23-2023 Nucleated RBC Auto Ql (Bld) 0.1 /100{WBC} 0-0.5 [facility] Platelet mean volume Auto (B ld) [Entitic vol]Ordered By: Enoch Robles on 04-23-2023 Platelet mean volume (Bld) [Entitic vol] 7.5 fL 6.6-10.1 [facility] Platelets Auto (Bld) [#/Vol] Ordered By: Enoch Robles on 04-23-2023 Platelets (Bld) [#/Vol] 359 10*3/uL 150-450 [facility] Potassium [Moles/volume] in Serum or PlasmaOrdered By: Enoch Robles on 04-23-2023 Potassium [Moles/Vol] 3.3 mmol/L 3.5-5.1 [facility] Protein [Mass/volume] in Ser um or PlasmaOrdered By: Enoch Robles on 04-23-2023 Protein [Mass/Vol] 6.0 g/dL 6.4-8.9 [facility] RBC Auto (Bld) [#/Vol]Ordere d By: Enoch Robles on 04-23-2023 RBC (Bld) [#/Vol] 3.49 10*6/uL 3.90-5.60 [facility] Serum or plasma anion gap de terminationOrdered By: Enoch Robles on 04-23-2023 Anion gap [Moles/Vol] 8.6 mmol/L 6.0-15.0 [facility] WBC Auto (Bld) [#/Vol]Ordere d By: Enoch Robles on 04-23-2023 WBC (Bld) [#/Vol] 9.8 10*3/uL 4.1-10.5 [facility] Office Visiton 02-18-2023 Follow-up visit [id number] Ayo Alicia 1960 [facility] Provider Department Center 02/18/2023 DARREN ROLLINS AMY Cannon Family History Problem Relation Age of Onset Atrial fibrillation Mother Other Mother Other Mother Coronary artery disease Father Family Status - Relation Status Age at Mother Father Level of Service:38437 [place] OFFICE/OUTPATIENT ESTABLISHED MOD [facility] 30-39 MIN Reason for Visit and Comments: Follow-up [[id number]] - 2 month follow up [facility] Follow-Upon 12-24-2022 Follow-Up [id number] Ayo Alicia 1960 [facility] Provider Department Center 12/24/2022 PAULINE ARIAS AMY Cannon Family History Problem Relation Age of Onset Atrial fibrillation Mother Other Mother Other Mother Coronary artery disease Father Family Status - Relation Status Age at Mother Father Level of Service:63424 [place] OFFICE/OUTPATIENT ESTABLISHED MOD MDM 30-39 MIN [facility] Telephoneon 12-12-2022 Telephone [id number] Ayo Alicia 1960 Date Provider Department Center 12/12/20221986-DANIELLA ABURTO [facility] Family History Problem Relation Age of Onset Atrial fibrillation Mother Other Mother Other Mother Coronary artery disease Father Family Status - Relation Status Age at Mother Father Reason for Visit and Comments: 3 week post ablation f/u [Other] [facility] Telephoneon 11-28-2022 Telephone [id number] Ayo Alicia Michael 1960 Date Provider Department Center 11/28/2022 1987-DANIELLA ABURTO [facility] Family History Problem Relation Age of Onset Atrial fibrillation Mother Other Mother Other Mother Coronary artery disease Father Family Status - Relation Status Age at Mother Father Reason for Visit and Comments: week f/u post ablation [Other] [facility] 29on 11-21-2022 29 Addendum created 11/21/22 1344 by Terry Kathleen MD Order list changed, Pharmacy for encounter modified [facility] Anesthesiaon 11-21-2022 Anesthesia [id number] Ayo Alicia Michael 1960 Provider Department Center 11/21/2022 TERRY [facility] Family History Problem Relation Age of Onset Atrial fibrillation Mother Other Mother Other Mother Coronary artery disease Father Family Status - Relation Status Age at Mother Father [facility] DSon 11-21-2022 DS Admission Admitted 11/21/2022 for Persistent atrial fibrillation ablation Discharge Diagnosis Atrial fibrillation ([facility]) Discharge Disposition Home or Self Care Discharge Medications Your medication list START taking these medications Instructions Last Dose Given Next Dose Due famotidine 20 mg tablet Commonly known as: Pepcid Take 1 tablet (20 mg) by mouth in the morning and at bedtime for 14 days. sucralfate 1 gram tablet Commonly known as: Carafate Take 1 tablet (1 g) by mouth in the morning, at noon, and at bedtime for 14 days. CONTINUE taking these medications Instructions Last Dose Given Next Dose Due apixaban 5 mg tablet Commonly known as: Eliquis Take 1 tablet (5 mg) by mouth in the morning and at bedtime. aspirin 81 mg EC tablet atorvastatin 80 mg tablet Commonly known as: Lipitor metoprolol tartrate 100 mg tablet Commonly known as: Lopressor Take 1 tablet (100 mg) by mouth in the morning. pantoprazole 40 mg EC tablet Commonly known as: ProtoNix predniSONE 20 mg tablet Commonly known as: Deltasone Where to Get Your Medications These medications were sent to [facility] - [place], [place] - [address] [place] [id number] famotidine 20 mg tablet sucralfate 1 gram tablet Activity Patient currently has no discharge activity orders Diet Patient currently has no discharge diet orders Allergies Patient has no known allergies. Hospital Course ATRIAL FIBRILLATION ABLATION PROCEDURE NOTE DATE OF PROCEDURE: 11/21/2022 PERFORMING PHYSICIAN: Dr. Darren Elmore LOGISTICS ACCOUNT MANAGER: Dr Bacilio Olmedo CONSENT: Patient NAME OF THE PROCEDURE: Pulmonary Vein Isolation and Comprehensive EP study. INDICATIONS FOR PROCEDURE: 1. Persistent atrial fibrillation. FLUROSCOPY: 3minute 38seconds/23mGy. EBL: 25cc SPECIMEN REMOVED: None PROCEDURES PERFORMED: 1. Sonosite guided venous access as noted below and images stored in PACS. 2. Comprehensive EP study and catheter ablation for persistent atrial fibrillation through the pulmonary vein isolation technique. This includes right atrial recording and pacing, His bundle recording and right ventricular recording and pacing. 3. Intracardiac EP 3D mapping. 4. Intracardiac echocardiogram 5. Left atrial and coronary sinus recording and pacing to assess ablation results. 6. Left heart pressure measurements and LV pacing and recording. 7. Induction of arrhythmia and testing of ablation results using intravenous adenosine infusion. 8. Fluroscopy. 9 CTI flutter ablation. 10. Arterial line placement. INDICATION: 62 yr. male with medical history significant for Persistent A-fib, CAD s/p LAD ERIC, hypertension, hyperlipidemia, history of mild to moderate MR and AR presenting to the EP lab for a elective Atrial fibrillation ablation. He was recently hospitalized at the [facility] for A-fib RVR and is markedly symptomatic. PROCEDURE NOTE: On the day of presentation, he was noted to be in Afib/flutter with RVR following which the NANCI was done to rule out INDY clot. Risks, benefits and alternatives of the procedure were discussed with the patient and family who agreed to proceed. Please refer to my consult note for details of the discussion and of indications. The patient was prepped and draped following which four venous access was procured on right side as noted below. Ultrasound was used to determine the course and patency of the femoral veins on both sides and they were noted to be patent and the image stored in PACS. After infiltration with 1% lidocaine, 4 venous sheaths were placed in the right as noted below and a radial arterial line was placed by Anesthesia team which did not work and so I placed one in the left femoral artery. DCCV was performed to cardiovert to SR. RFV: 8Fx3, [employer] Thermo[employer] SF Bi-Directional over SL1/ Vizigo, SL1: Pentaray, CS Catheter (EZ Steer). 11F: ICE catheter LFA: 4F for hemodynamic monitoring. Following venous access, heparin bolus was given followed by continuous intravenous drip to target ACT around 350. An intracardiac ultrasound catheter was inserted into the right atrium to examine the right atrial anatomy, atrial septum, pulmonary vein anatomy and to monitor for pericardial effusion and guide transseptal access. The LA and RA was only moderately dilated. At baseline, there was no pericardial effusion and no INDY clot but noted a very prominent Coumadin ridge. Esophagus was mapped using the [employer] 3D mapping software and noted to be towards the RSPV. Transeptal access was procured with ICE guidance using a SL-1 sheath and Kylah needle. LV pacing was performed and VA conduction was seen. Following this, pentaray catheter was advanced and the multipolar mapping performed of the LA creating a geometry as well as bipolar voltage assessment was made. The LA was noted to (more content not included)... Normal [facility] 11-21-2022 Attestation signed by Darren Elmore MD at 11/21/2022 8:23 AM By using the attestations below, the signing clinician agrees that I have read and verify that the documentation has been personally reviewed by me and ensure that the documentation accurately reflects the encounter. GC: I personally saw this patient on the day of the encounter, performed the akins portion(s) of the service and participated in the management and confirm the resident's documentation. Please note there may be an additional personal documentation from me. History Of Present Illness Ayo Alicia is a 62 y.o. male with medical history significant for Persistent A-fib, CAD s/p LAD ERIC, hypertension, hyperlipidemia, history of mild to moderate MR and AR presenting to the EP lab for a elective Atrial fibrillation ablation. He was recently hospitalized at the [facility] for A-fib RVR where he was started on a Cardizem infusion and Lanoxin with an ELIZABETH. He was diagnosed with Afib about 2 years back. He has noticed elevated heart rates with accompained chest pressure and Fitbit is reading Hrs in the 140s when he's sleeping or at rest. He was positive for sleep apnea 20 years ago, had uvula surgery Past Medical History He has a past medical history of Atrial fibrillation (CMS/HCC), Coronary artery disease, GERD (gastroesophageal reflux disease), Heart valve disease, Hyperlipidemia, Hypertension, and Obesity (BMI 30.0-34.9). Surgical History He has a past surgical history that includes Total knee arthroplasty (Right, 2020); Knee arthrodesis (Left); Back surgery; Cervical fusion; and Cardiac catheterization (N/A). Social History He reports that he has never smoked. He has never used smokeless tobacco. He reports current alcohol use. No history on file for drug use. Allergies Patient has no known allergies. Medications Medications Prior to Admission Medication Sig Dispense Refill Last Dose apixaban (Eliquis) 5 mg tablet Take 1 tablet (5 mg) by mouth in the morning and at bedtime. 180 tablet 3 Past Week aspirin 81 mg EC tablet Take 81 mg by mouth in the morning. Past Week atorvastatin (Lipitor) 80 mg tablet Take 80 mg by mouth at bedtime. Past Week metoprolol tartrate (Lopressor) 100 mg tablet Take 1 tablet (100 mg) by mouth in the morning. 30 tablet 3 Past Week pantoprazole (ProtoNix) 40 mg EC tablet Take 1 tablet by mouth in the morning. Past Week predniSONE (Deltasone) 20 mg tablet Take 60 mg by mouth in the morning. Past Week Review of Systems Constitutional: no fever, no night sweats, no significant weight gain, no significant weight loss, no chills, fatigue Eyes: No change in vision, photophobia, no recent eye infection ENMT Ears: no difficulty hearing, no ear pain, no tinnitus Nose: no frequent nosebleeds, no nose/sinus problems, no sinus problems, no nasal discharge, no change in taste, no change in voice Mouth/Throat: no sore throat, no bleeding gums, no snoring, no dry mouth, no mouth ulcers, no oral abnormalities, no teeth problems Cardiovascular: Positive for intermittent chest pain, dyspnea on exertion and palpitations. no arm pain on exertion, no shortness of breath when lying down, no palpitations, no known heart murmur, no edema, chest pain on exertion, shortness of breath when walking, PND/orthopnea, dizziness/lightheade dness, Respiratory: no cough, no coughing up blood, wheezing Gastrointestinal: No history of abdominal pain, no nausea or vomiting, no heartburn or peptic ulcer disease, no rectal bleeding or black stools Musculoskeletal: Positive for arthritis, back pain and joint pain. Skin: no abnormal mole, no jaundice, no rashes Neurologic: no loss of consciousness, no weakness, no numbness, no seizures, no dizziness, no headaches Hematologic/Lymphati c no swollen glands, no bruising Physical Exam Constitutional General Appearance: well-nourished, well-developed, appears stated age Level of Distress: comfortable Psychiatric Mental Status: alert, normal affect Orientation: oriented to time, place, and person Insight: good judgement Eyes Lids and Conjunctivae: non-injected, no xanthelasma ENMT Ears: no lesions on external ear Nose: no lesions on external nose Oropharynx: no cyanosis, no pallor Neck Neck: supple, trachea midline Carotid Arteries: bilateral normal upstroke, no bruits Jugular Veins: normal jugular venous pressure Thyroid: not enlarged Lungs Respiratory Effort: unlabored Chest Exam: normal curvature, no thoracic deformity Auscultation: clear, no wheezing, no rales, no rhonchi Cardiovascular Rate And Rhythm: regular Heart Sounds: normal S1, normal s2, no gallop Systolic Murmur: not heard Diastolic Murmur: not heard Extremities: no cyanosis, no edema, no peripher (more content not included)... Normal [facility] NURSNOTEon 11-21-2022 NURSNOTE Discharge instructions reviewed at bedside with patient . All questions answered at this time Maria Isabel Fonseca [employer] Normal [facility] NURSNOTE EKG at bedside Maria Isabel Fonseca [employer]IST Normal [facility] Orders Onlyon 11-21-2022 Orders Only [id number] EmersonAyo Michael 1960 M Date Provider Department Center 11/21/20221986-DANIELLA ABURTO [facility] Family History Problem Relation Age of Onset Atrial fibrillation Mother Other Mother Other Mother Coronary artery disease Father Family Status - Relation Status Age at Mother Father Normal [facility] POCT GLUCOSE METER UNSOLICIT ED RESULTSon 11-21-2022 Glucose [Mass/Vol] 144 mg/dL High 70-105 [facility] Comment on above: Result Comment: epaw low Performed By: #### L [id number] ####[facility] (BEAKER)[address] [place] [address] PROTIME-INRon 11-21-2022 INR IN PPP BY COAGULATION ASSAY 1.12 High 0.90-1.10 [facility] Comment on above: Result Comment: ACCC P RECOMMENDED INR FOR WARFARIN THERAPY CONDITION INR PROPHYLAXIS OF VENOUS THROMBOSIS 2-3 (HIGH-RISK SURGERY) TREATMENT OF VENOUS THROMBOSIS 2-3 TREATMENT OF PULMONARY EMBOLISM 2-3 PREVENTION OF SYSTEMIC EMBOLISM: 2-3 ACUTE MYOCARDIAL INFARCTION TISSUE HEART VALVES VALVULAR HEART DISEASE ATRIAL FIBRILLATION RECURRENT SYSTEMIC EMBOLISM MECHANICAL HEART VALVE 2.5-3.5 FROM: ORAL ANTICOAGULANTS. MECHANISM OF ACTION, CLINICAL EFFECTIVENESS, AND OPTIMAL THERAPEUTIC RANGE. CHEST 1995;108:231S-246S. Performed By: #### L [id number] ####[facility] (BEAKER)[address] [place] [address] PROTHROMBIN TIME (PT) IN PPP BY COAGULATION ASSAY 14.3 Seconds Normal 12.3-14.8 [facility] Comment on above: Performed By: #### L [id number] ####[facility] (BEAKER)[address] [place] [address] Office Visiton 11-08-2022 Follow-up visit [id number] Ayo Alicia 1960 M Date Provider Department Center 11/08/2022 PAULINE ARIAS [facility] Family History Problem Relation Age of Onset Atrial fibrillation Mother Other Mother Other Mother Coronary artery disease Father Family Status - Relation Status Age at Mother Father Level of Service:09400 [place] OFFICE/OUTPATIENT ESTABLISHED MOD MDM 30-39 MIN Reason for Visit and Comments: Atrial Fibrillation [80] H&P [Other] Normal [facility] CBC AUTO DIFFon 11-01-2022 BASO # 0.1 103/ul Normal 0.0-0.1 [facility] Comment on above: Performed By: #### C MREP #### [facility] [address] [address] [address] Sayda Kapoor Basophils/100 WBC (Bld) 0.7 % Normal 0.2-2.0 [facility] Comment on above: Performed By: #### C MREP #### [facility] [address] [address] [address] Sayda Kapoor EO # 0.1 103/ul Normal 0.0-0.7 [facility] Comment on above: Performed By: #### C MREP #### [facility] [address] [address] [address] Sayda Kapoor Eosinophils/100 WBC (Bld) 1.4 % Normal 0.9-7.0 [facility] Comment on above: Performed By: #### C MREP #### [facility] [address] [place] [address] Dr. Sayda Kapoor Erythrocyte distribution width (RBC) [Ratio] 15.9 % Critically high 11.0-15.0 [facility] Comment on above: Performed By: #### C MREP #### [facility] [address] [place] [address] Dr. Sayda Kapoor Hematocrit (Bld) [Volume fraction] 31.5 % Critically low 42.0-54.0 [facility] Comment on above: Performed By: #### C MREP #### [facility] [address] [place] [address] Dr. Sayda Kapoor Hemoglobin (Bld) [Mass/Vol] 9.1 g/dL Critically low 14.0-18.0 [facility] Comment on above: Performed By: #### C MREP #### [facility] [address] [place] [address] Dr. Sayda Kapoor IG # 0.20 10e3/ul Critically high 0.00-0.03 [facility] Comment on above: Performed By: #### C MREP #### [facility] Laboratory [address] [place] [address] Dr. Sayda Kapoor IG % 2.3 % Critically high 0.0-0.5 [facility] Comment on above: Performed By: #### C MREP #### [facility] Laboratory [address] [place] [address] Dr. Sayda Kapoor LYMPH # 0.8 103/ul Critically low 1.2-3.8 [facility] Comment on above: Performed By: #### C MREP #### [facility] Laboratory [address] [place] [address] Dr. Sayda Kapoor Lymphocytes/100 WBC (Bld) 9.4 % Critically low 20.5-60.0 [facility] Comment on above: Performed By: #### C MREP #### [facility] Laboratory [address] [place] [address] Dr. Sayda Kapoor MANUAL DIFF REQ NO Normal [facility] Comment on above: Performed By: #### C MREP #### [facility] Laboratory [address] [place] [address] Dr. Sayda Kapoor MCH (RBC) [Entitic mass] 22.9 pg Critically low 25.9-34.0 [facility] Comment on above: Performed By: #### C MREP #### [facility] Laboratory [address] [place] [address] Dr. Sayda Kapoor MCHC (RBC) [Mass/Vol] 28.9 g/dL Critically low 29.9-35.2 [facility] Comment on above: Performed By: #### C MREP #### [facility] Laboratory [address] [place] [address] Dr. Sadya Kapoor MCV (RBC) [Entitic vol] 79.1 fL Critically low 80.0-94. 0 [facility] Comment on above: Performed By: #### C MREP #### [facility] Laboratory [address] [place] [address] Dr. Sayda Kapoor MONO # 0.6 103/ul Normal 0.3-0.8 [facility] Comment on above: Performed By: #### C MREP #### [facility] Laboratory [address] [place] [address] Dr. Sayda Kapoor Monocytes/100 WBC (Bld) 7.2 % Normal 1.7-12.0 [facility] Comment on above: Performed By: #### C MREP #### [facility] Laboratory [address] [place] [address] Dr. Sayda Kapoor NEUT # 6.9 103/ul Critically high 1.4-6.5 [facility] Comment on above: Performed By: #### C MREP #### [facility] Laboratory [address] [place] [address] Dr. Sayda Kapoor Neutrophils/100 WBC (Bld) 79.0 % Critically high 43.0-75.0 [facility] Comment on above: Performed By: #### C MREP #### [facility] Laboratory [address] [place] [address] Dr. Sayda Kapoor Platelet mean volume (Bld) [Entitic vol] 9.1 fL Critically low 9.5-13.5 [facility] Comment on above: Performed By: #### C MREP #### [facility] [address] [place] [address] Dr. Sayda Kapoor PLT 416 103/ul Normal 150-450 [facility] Comment on above: Performed By: #### C MREP #### [facility] [address] [place] [address] Dr. Sayda Kapoor RBC 3.98 106/ul Critically low 4.70-6.10 [facility] Comment on above: Performed By: #### C MREP #### [facility] [address] [place] [address] Dr. Sayda Kapoor WBC 8.8 103/ul Normal 4.0-11.0 [facility] Comment on above: Performed By: #### C MREP #### [facility] [address] [place] [address] Dr. Sayda Kapoor PROF CHEM 8 (BAS METB)on Anion gap [Moles/Vol] 9.0 mmol/L Normal [facility] Comment on above: Performed By: #### B SECRET CODE EXPERT, CMP, LIPA, TONI #### [facility] Laboratory [address] [place] [address] Dr. Sayda Kapoor Calcium [Mass/Vol] 8.2 mg/dL Critically low 8.5-10.1 [facility] Comment on above: Performed By: #### B SECRET CODE EXPERT, CMP, LIPA, TONI #### [facility] Laboratory [address] [place] [address] Dr. Sayda Kapoor Chloride [Moles/Vol] 104 mmol/L Normal 98-107 [facility] Comment on above: Performed By: #### B SECRET CODE EXPERT, CMP, LIPA, TONI #### [facility] [address] [place] [address] Dr. Sayda Kapoor CO2 [Moles/Vol] 32.5 mmol/L Critically high 21.0-32.0 [facility] Comment on above: Performed By: #### B SECRET CODE EXPERT, CMP, LIPA, TONI #### [facility] Laboratory [address] [address] [address] Sayda Kapoor Creatinine [Mass/Vol] 0.93 mg/dL Normal 0.70-1.30 [facility] Comment on above: Performed By: #### B SECRET CODE EXPERT, CMP, LIPA, TONI #### [facility] [address] [address] [address] Sayda Kapoor EGFR-AF SWAZI >60 Normal >=60 [facility] Comment on above: Performed By: #### B SECRET CODE EXPERT, CMP, LIPA, TONI #### [facility] [address] [place] [address] Dr. Sayda Kapoor EGFR-NON AF SWAZI >60 Normal >=60 [facility] Comment on above: Performed By: #### B SECRET CODE EXPERT, CMP, LIPA, TONI #### [facility] [address] [place] [address] Dr. Sayda Kpaoor Glucose [Mass/Vol] 145 mg/dL Critically high 74-106 [facility] Comment on above: Performed By: #### B SECRET CODE EXPERT, CMP, LIPA, TONI #### [facility] [address] [place] [address] Dr. Sayda Kapoor Potassium [Moles/Vol] 3.5 mmol/L Normal 3.5-5.1 [facility] Comment on above: Performed By: #### B SECRET CODE EXPERT, CMP, LIPA, TONI #### [facility] [address] [address] [address] Sayda Kapoor Sodium [Moles/Vol] 142 mmol/L Normal 136-145 [facility] Comment on above: Performed By: #### B SECRET CODE EXPERT, CMP, LIPA, TONI #### [facility] [address] [address] [address] Sayda Kapoor Urea nitrogen [Mass/Vol] 20.0 mg/dL Critically high 7.0-18.0 [facility] Comment on above: Performed By: #### B SECRET CODE EXPERT, CMP, LIPA, TONI #### [facility] [address] [place] [address] Dr. Sayda Kapoor Urea nitrogen/Creatinine [Mass ratio] 21.5 mg/mg Normal [facility] Comment on above: Performed By: #### B SECRET CODE EXPERT, CMP, LIPA, TONI #### [facility] [address] [place] [address] Dr. Sayda Kapoor BNPon 10-23-2022 Natriuretic peptide B (Bld) [Mass/Vol] 2297.0 pg/mL Critically high <=900.0 [facility] Comment on above: Performed By: #### C MREP #### [facility] [address] [place] [address] Dr. Sayda Kapoor CBC AUTO DIFFon 10-23-2022 BASO # 0.1 103/ul Normal 0.0-0.1 [facility] Comment on above: Performed By: #### D IG #### [facility] [address] [place] [address] Dr. Sayda Kapoor Basophils/100 WBC (Bld) 0.7 % Normal 0.2-2.0 [facility] Comment on above: Performed By: #### D IG #### [facility] [address] [place] [address] Dr. Sayda Kapoor EO # 0.1 103/ul Normal 0.0-0.7 [facility] Comment on above: Performed By: #### D IG #### [facility] [address] [place] [address] Dr. Sayda Kapoor Eosinophils/100 WBC (Bld) 1.9 % Normal 0.9-7.0 [facility] Comment on above: Performed By: #### D IG #### [facility] [address] [place] [address] Dr. Sayda Kapoor Erythrocyte distribution width (RBC) [Ratio] 15.6 % Critically high 11.0-15.0 [facility] Comment on above: Performed By: #### D IG #### [facility] [address] [place] [address] Dr. Sayda Kapoor Hematocrit (Bld) [Volume fraction] 29.1 % Critically low 42.0-54.0 [facility] Comment on above: Performed By: #### D IG #### [facility] [address] [address] [address] Sayda Kapoor Hemoglobin (Bld) [Mass/Vol] 8.4 g/dL Critically low 14.0-18.0 [facility] Comment on above: Performed By: #### D IG #### [facility] [address] [place] [address] Dr. Sayda Kapoor IG # 0.06 10e3/ul Critically high 0.00-0.03 [facility] Comment on above: Performed By: #### D IG #### [facility] [address] [place] [address] Dr. Sayda Kapoor IG % 0.8 % Critically high 0.0-0.5 [facility] Comment on above: Performed By: #### D IG #### [facility] [address] [place] [address] Dr. Sayda Kapoor LYMPH # 1.1 103/ul Critically low 1.2-3.8 [facility] Comment on above: Performed By: #### D IG #### [facility] [address] [place] [address] Dr. Sayda Kapoor Lymphocytes/100 WBC (Bld) 14.8 % Critically low 20.5-60.0 [facility] Comment on above: Performed By: #### D IG #### [facility] [address] [place] [address] Dr. Sayda Kapoor MANUAL DIFF REQ NO Normal [facility] Comment on above: Performed By: #### D IG #### [facility] [address] [place] [address] Dr. Sayda Kapoor MCH (RBC) [Entitic mass] 23.3 pg Critically low 25.9-34.0 [facility] Comment on above: Performed By: #### D IG #### [facility] [address] [place] [address] Dr. Sayda Kapoor MCHC (RBC) [Mass/Vol] 28.9 g/dL Critically low 29.9-35.2 [facility] Comment on above: Performed By: #### D IG #### [facility] [address] [address] [address] Sayda Kapoor MCV (RBC) [Entitic vol] 80.6 fL Normal 80.0-94.0 [facility] Comment on above: Performed By: #### D IG #### [facility] [id number] Sayda Kapoor MONO # 0.7 103/ul Normal 0.3-0.8 [facility] Comment on above: Performed By: #### D IG #### [facility] [address] [address] [address] Sayda Kapoor Monocytes/100 WBC (Bld) 8.7 % Normal 1.7-12.0 [facility] Comment on above: Performed By: #### D IG #### [facility] [address] [address] [address] Sayda Kapoor NEUT # 5.5 103/ul Normal 1.4-6.5 [facility] Comment on above: Performed By: #### D IG #### [facility] [address] [address] [address] Sayda Kapoor Neutrophils/100 WBC (Bld) 73.1 % Normal 43.0-75.0 [facility] Comment on above: Performed By: #### D IG #### [facility] [address] [address] [address] Sayda Kapoor Platelet mean volume (Bld) [Entitic vol] 9.5 fL Normal 9.5-13.5 [facility] Comment on above: Performed By: #### D IG #### [facility] [address] [address] [address] Sayda Kapoor PLT 281 103/ul Normal 150-450 [facility] Comment on above: Performed By: #### D IG #### [facility] [address] [address] [address] Sayda Kapoor RBC 3.61 106/ul Critically low 4.70-6.10 [facility] Comment on above: Performed By: #### D IG #### [facility] [address] [place] [address] Dr. Sayda Kapoor WBC 7.6 103/ul Normal 4.0-11.0 [facility] Comment on above: Performed By: #### D IG #### [facility] [address] [place] [address] Dr. Sayda Kapoor DIGOXINon 10-23-2022 DIG 0.9 ng/mL Normal 0.9-2.0 [facility] Comment on above: Performed By: #### D IG #### [facility] [address] [place] [address] Dr. Sayda Kapoor PROF 14(COMP METB)on 023 Albumin [Mass/Vol] 2.4 g/dL Critically low 3.4-5.0 [facility] Comment on above: Performed By: #### C MREP #### [facility] [address] [place] [address] Dr. Sayda Kapoor Albumin/Globulin [Mass ratio] 0.9 {ratio} Normal [facility] Comment on above: Performed By: #### C MREP #### [facility] [address] [place] [address] Dr. Sayda Kapoor ALP [Catalytic activity/Vol] 62 U/L Normal 46-116 [facility] Comment on above: Performed By: #### C MREP #### [facility] [address] [place] [address] Dr. Sayda Kapoor ALT [Catalytic activity/Vol] 33 U/L Normal 16-63 [facility] Comment on above: Performed By: #### C MREP #### [facility] [address] [place] [address] Dr. Sayda Kapoor Anion gap [Moles/Vol] 8.2 mmol/L Normal [facility] Comment on above: Performed By: #### C MREP #### [facility] [address] [place] [address] Dr. Sayda Kapoor AST [Catalytic activity/Vol] 15 U/L Normal 15-37 [facility] Comment on above: Performed By: #### C MREP #### [facility] [address] [place] [address] Dr. Sayda Kapoor Bilirubin [Mass/Vol] 1.3 mg/dL Critically high 0.2-1.0 [facility] Comment on above: Performed By: #### C MREP #### [facility] [address] [place] [address] Dr. Sayda Kapoor Calcium [Mass/Vol] 7.6 mg/dL Critically low 8.5-10.1 [facility] Comment on above: Performed By: #### C MREP #### [facility] [address] [place] [address] Dr. Sayda Kapoor Chloride [Moles/Vol] 105 mmol/L Normal 98-107 [facility] Comment on above: Performed By: #### C MREP #### [facility] [address] [place] [address] Dr. Sayda Kapoor CO2 [Moles/Vol] 30.2 mmol/L Normal 21.0-32.0 [facility] Comment on above: Performed By: #### C MREP #### [facility] [address] [place] [address] Dr. Sayda Kapoor Creatinine [Mass/Vol] 1.07 mg/dL Normal 0.70-1.30 [facility] Comment on above: Performed By: #### C MREP #### [facility] [address] [place] [address] Dr. Sayda Kapoor EGFR-AF SWAZI >60 Normal >=60 [facility] Comment on above: Performed By: #### C MREP #### [facility] [address] [place] [address] Dr. Sayda Kapoor EGFR-NON AF SWAZI >60 Normal >=60 [facility] Comment on above: Performed By: #### C MREP #### [facility] [address] [place] [address] Dr. Sayda Kapoor Globulin (S) [Mass/Vol] 2.7 g/dL Normal T [facility] Comment on above: Performed By: #### C MREP #### [facility] [address] [place] [address] Dr. Sayda Kapoor Glucose [Mass/Vol] 101 mg/dL Normal 74-106 [facility] Comment on above: Performed By: #### C MREP #### [facility] [address] [place] [address] Dr. Sayda Kapoor Potassium [Moles/Vol] 3.4 mmol/L Critically low 3.5-5.1 [facility] Comment on above: Performed By: #### C MREP #### [facility] [address] [place] [address] Dr. Sayda Kapoor Protein [Mass/Vol] 5.1 g/dL Critically low 6.4-8.2 Th [facility] Comment on above: Performed By: #### C MREP #### [facility] [address] [place] [address] Dr. Sayda Kapoor Sodium [Moles/Vol] 140 mmol/L Normal 136-145 [facility] Comment on above: Performed By: #### C MREP #### [facility] [address] [place] [address] Dr. Sayda Kapoor Urea nitrogen [Mass/Vol] 20.0 mg/dL Critically high 7.0-18.0 [facility] Comment on above: Performed By: #### C MREP #### [facility] [address] [place] [address] Dr. Sayda Kapoor Urea nitrogen/Creatinine [Mass ratio] 18.7 mg/mg Normal [facility] Comment on above: Performed By: #### C MREP #### [facility] [address] [place] [address] Dr. Sayda Kapoor T3, TOTAL (TRIIODOTHYRONINE) on 10-23-2022 T3, TOTAL 93 ng/dL Normal 71-180 [facility] Comment on above: Performed By: #### B SECRET CODE EXPERT, CMP, LIPA, TONI #### [facility] [address] [place] [address] Dr. Sayda Kapoor BNPon 10-22-2022 Natriuretic peptide B (Bld) [Mass/Vol] 2419.0 pg/mL Critically high <=900.0 [facility] Comment on above: Performed By: #### B SECRET CODE EXPERT, CMP, LIPA, TONI #### [facility] [address] [address] [address] Sayda Kapoor CARDIAC BETTE 3-6on 3 CK [Catalytic activity/Vol] 88 U/L Normal 39-308 [facility] Comment on above: Performed By: #### Q NTTB #### [facility] [address] [place] [address] Dr. Sayda Kapoor CK.MB [Mass/Vol] 1.44 ng/mL Normal <=3.60 [facility] Comment on above: Performed By: #### Q NTTB #### [facility] [address] [place] [address] Dr. Sayda Kapoor HSTROP 15.1 pg/mL Normal 4.0-76.1 [facility] Comment on above: Result Comment: CUT- OFF POINTS HAVE BEEN ESTABLISHED BASED ON THE FOURTH UNIVERSAL DEFINITIONS OF MYOCARDIAL INFARCTION. THE UPPER REFERENCE LIMIT (URL) OF TROPONIN, DEFINED THE 99TH PERCENTILE OF cTnI DISTRIBUTION IN A REFERENCE POPULATION, HAS BEEN CONFIRMED THE DECISION THRESHOLD FOR [place] DIAGNOSIS. Performed By: #### Q NTTB #### [facility] [address] [place] [address] Dr. Sayda Kapoor CBC AUTO DIFFon 10-22-2022 BASO # 0.1 103/ul Normal 0.0-0.1 [facility] Comment on above: Performed By: #### C BC #### [facility] [address] [place] [address] Dr. Sayda Kapoor Basophils/100 WBC (Bld) 0.5 % Normal 0.2-2.0 [facility] Comment on above: Performed By: #### C BC #### [facility] [address] [place] [address] Dr. Sayda Kapoor EO # 0.2 103/ul Normal 0.0-0.7 [facility] Comment on above: Performed By: #### C BC #### [facility] [address] [place] [address] Dr. Sayda Kapoor Eosinophils/100 WBC (Bld) 1.8 % Normal 0.9-7.0 [facility] Comment on above: Performed By: #### C BC #### [facility] [address] [place] [address] Dr. Sayda Kapoor Erythrocyte distribution width (RBC) [Ratio] 15.7 % Critically high 11.0-15.0 [facility] Comment on above: Performed By: #### C BC #### [facility] [address] [place] [address] Dr. Sayda Kapoor Hematocrit (Bld) [Volume fraction] 27.0 % Critically low 42.0-54.0 [facility] Comment on above: Performed By: #### C BC #### [facility] [address] [place] [address] Dr. Sayda Kapoor Hemoglobin (Bld) [Mass/Vol] 7.9 g/dL Critically low 14.0-18.0 [facility] Comment on above: Performed By: #### C BC #### [facility] [address] [place] [address] Dr. Sayda Kapoor IG # 0.06 10e3/ul Critically high 0.00-0.03 [facility] Comment on above: Performed By: #### C BC #### [facility] [address] [place] [address] Dr. Sayda Kapoor IG % 0.6 % Critically high 0.0-0.5 [facility] Comment on above: Performed By: #### C BC #### [facility] [address] [place] [address] Dr. Sayda Kapoor LYMPH # 1.2 103/ul Normal 1.2-3.8 [facility] Comment on above: Performed By: #### C BC #### [facility] [address] [place] [address] Dr. Sayda Kapoor Lymphocytes/100 WBC (Bld) 13.0 % Critically low 20.5-60.0 [facility] Comment on above: Performed By: #### C BC #### [facility] [address] [place] [address] Dr. Sayda Kapoor MANUAL DIFF REQ NO Normal [facility] Comment on above: Performed By: #### C BC #### [facility] [address] [address] [address] Sayda Kapoor MCH (RBC) [Entitic mass] 23.1 pg Critically low 25.9-34.0 [facility] Comment on above: Performed By: #### C BC #### [facility] [address] [place] [address] Dr. Sayda Kapoor MCHC (RBC) [Mass/Vol] 29.3 g/dL Critically low 29.9-35.2 [facility] Comment on above: Performed By: #### C BC #### [facility] [address] [place] [address] Dr. Sayda Kapoor MCV (RBC) [Entitic vol] 78.9 fL Critically low 80.0-94. 0 [facility] Comment on above: Performed By: #### C BC #### [facility] [address] [place] [address] Dr. Sayda Kapoor MONO # 0.8 103/ul Normal 0.3-0.8 [facility] Comment on above: Performed By: #### C BC #### [facility] [address] [place] [address] Dr. Sayda Kapoor Monocytes/100 WBC (Bld) 8.0 % Normal 1.7-12.0 [facility] Comment on above: Performed By: #### C BC #### [facility] [address] [place] [address] Dr. Sayda Kapoor NEUT # 7.2 103/ul Critically high 1.4-6.5 [facility] Comment on above: Performed By: #### C BC #### [facility] [address] [place] [address] Dr. Sayda Kapoor Neutrophils/100 WBC (Bld) 76.1 % Critically high 43.0-75.0 [facility] Comment on above: Performed By: #### C BC #### [facility] [address] [place] [address] Dr. Sayda Kapoor Platelet mean volume (Bld) [Entitic vol] 9.9 fL Normal 9.5-13.5 [facility] Comment on above: Performed By: #### C BC #### [facility] [address] [place] [address] Dr. Sayda Kapoor PLT 320 103/ul Normal 150-450 [facility] Comment on above: Performed By: #### C BC #### [facility] [address] [place] [address] Dr. Sayda Kapoor RBC 3.42 106/ul Critically low 4.70-6.10 [facility] Comment on above: Performed By: #### C BC #### [facility] [address] [place] [address] Dr. Sayda Kapoor WBC 9.4 103/ul Normal 4.0-11.0 [facility] Comment on above: Performed By: #### C BC #### [facility] [address] [place] [address] Dr. Sayda Kapoor BASO # 0.0 103/ul Normal 0.0-0.1 [facility] Comment on above: Performed By: #### D IG #### [facility] [address] [place] [address] Dr. Sayda Kapoor Basophils/100 WBC (Bld) 0.4 % Normal 0.2-2.0 [facility] Comment on above: Performed By: #### D IG #### [facility] [address] [place] [address] Dr. Sayda Kapoor EO # 0.1 103/ul Normal 0.0-0.7 [facility] Comment on above: Performed By: #### D IG #### [facility] [address] [place] [address] Dr. Sayda Kapoor Eosinophils/100 WBC (Bld) 1.0 % Normal 0.9-7.0 [facility] Comment on above: Performed By: #### D IG #### [facility] [address] [place] [address] Dr. Sayda Kapoor Erythrocyte distribution width (RBC) [Ratio] 15.8 % Critically high 11.0-15.0 [facility] Comment on above: Performed By: #### D IG #### [facility] [address] [place] [address] Dr. Sayda Kapoor Hematocrit (Bld) [Volume fraction] 28.0 % Critically low 42.0-54.0 [facility] Comment on above: Performed By: #### D IG #### [facility] [address] [place] [address] Dr. Sayda Kapoor Hemoglobin (Bld) [Mass/Vol] 8.0 g/dL Critically low 14.0-18.0 [facility] Comment on above: Performed By: #### D IG #### [facility] [address] [place] [address] Dr. Sayda Kapoor IG # 0.03 10e3/ul Normal 0.00-0.03 [facility] Comment on above: Performed By: #### D IG #### [facility] [address] [place] [address] Dr. Sayda Kapoor IG % 0.4 % Normal 0.0-0.5 [facility] Comment on above: Performed By: #### D IG #### [facility] [address] [place] [address] Dr. Sayda Kapoor LYMPH # 1.2 103/ul Normal 1.2-3.8 [facility] Comment on above: Performed By: #### D IG #### [facility] [address] [place] [address] Dr. Sayda Kapoor Lymphocytes/100 WBC (Bld) 14.3 % Critically low 20.5-60.0 [facility] Comment on above: Performed By: #### D IG #### [facility] [address] [place] [address] Dr. Sayda Kapoor MANUAL DIFF REQ NO Normal [facility] Comment on above: Performed By: #### D IG #### [facility] [address] [place] [address] Dr. Sayda Kapoor MCH (RBC) [Entitic mass] 23.3 pg Critically low 25.9-34.0 [facility] Comment on above: Performed By: #### D IG #### [facility] [address] [address] [address] Sayda Kapoor MCHC (RBC) [Mass/Vol] 28.6 g/dL Critically low 29.9-35.2 [facility] Comment on above: Performed By: #### D IG #### [facility] [address] [address] [address] Sayda Kapoor MCV (RBC) [Entitic vol] 81.4 fL Normal 80.0-94.0 [facility] Comment on above: Performed By: #### D IG #### [facility] [address] [address] [address] Sayda Kapoor MONO # 0.6 103/ul Normal 0.3-0.8 [facility] Comment on above: Performed By: #### D IG #### [facility] [address] [place] [address] Dr. Sayda Kapoor Monocytes/100 WBC (Bld) 7.1 % Normal 1.7-12.0 [facility] Comment on above: Performed By: #### D IG #### [facility] [address] [address] [address] Sayda Kapoor NEUT # 6.2 103/ul Normal 1.4-6.5 [facility] Comment on above: Performed By: #### D IG #### [facility] [address] [place] [address] Dr. Sayda Kapoor Neutrophils/100 WBC (Bld) 76.8 % Critically high 43.0-75.0 [facility] Comment on above: Performed By: #### D IG #### [facility] [address] [address] [address] Sayda Kapoor Platelet mean volume (Bld) [Entitic vol] 9.5 fL Normal 9.5-13.5 [facility] Comment on above: Performed By: #### D IG #### [facility] [address] [address] [address] Sayda Kapoor PLT 252 103/ul Normal 150-450 [facility] Comment on above: Performed By: #### D IG #### [facility] [address] [place], [place] [address] Dr. Sayda Kapoor RBC 3.44 106/ul Critically low 4.70-6.10 [facility] Comment on above: Performed By: #### D IG #### [facility] [address] [place], [place] [address] Dr. Sayda Kapoor WBC 8.1 103/ul Normal 4.0-11.0 [facility] Comment on above: Performed By: #### D IG #### [facility] [id number] Sayda Kapoor CTA CHEST WO W CONon 023 CTA CHEST WO W CON EXAMINATION: CTA CHEST WO W CON HISTORY: Paroxysmal atrial fibrillation with rapid ventricular response COMPARISON: No relevant comparison available. TECHNIQUE: Multi-planar CT images were created with IV contrast. Axial, Coronal, and Sagittal images. Dose reduction techniques were achieved by using automated exposure control and/or adjustment of mA and/or kV according to patient size and/or use of iterative reconstruction technique. 3-D reconstruction was performed on a separate workstation. FINDINGS: VASCULATURE: No pulmonary embolism or abnormal opacity. LUNGS: A few calcified granulomas. A few small nodules versus focal infiltrates. Mild haziness throughout the parenchyma bilaterally. Stranding within lateral right lung base. PLEURA: Bilateral pleural effusions, 3.2 cm in thickness on right, 2.3 cm on left. XIN: No mass or adenopathy. MEDIASTINUM: No mass or adenopathy. CARDIAC: Atherosclerotic disease. No pericardial effusion. AORTA: No aneurysm or dissection. CHEST WALL: No mass or axillary adenopathy. BONES: No bone lesion or fracture. LIMITED ABDOMEN: No suspicious findings. Limited images of the upper abdomen. OTHER: Negative. IMPRESSION: 1. Moderate large bilateral pleural effusions with suspected mild bilateral atelectasis. Pulmonary edema. 2. Suspect chronic granulomatous disease. Consider follow-up imaging in 6 months to document stability. 3. Atherosclerotic coronary artery disease. No pericardial effusion. Electronically authenticated by: CL POTTS Date: 2022-10-22 09:30 Normal [facility] CULTURE URINEon 10-22-2022 CULTURE URINE Culture Observations: NO GROWTH. Normal [facility] Comment on above: Performed By: #### D IG #### [facility] [address] [place], [place] [address] Dr. Sayda Kapoor DIGOXINon 10-22-2022 DIG 1.4 ng/mL Normal 0.9-2.0 [facility] Comment on above: Performed By: #### B SECRET CODE EXPERT, CMP, LIPA, TONI #### [facility] [address] [place], [place] [address] Dr. Sayda Kapoor ECHOCARDIO M/2D COMPLETEon 0 10-22-2022 ECHOCARDIO M/2D COMPLETE Patient: AYO ALICIA Exam Date: 10/22/2022 : 1960 Gender:M Ordering : DR PERICO BALDERAS . Admission #: [id number] Family : DR GLORIA PAGAN M.D. Order #: [id number] CLICK HERE TO VIEW EXAM ECHOCARDIOGRAM REPORT PROCEDURE: CARDIO PULMONARY ECHOCARDIO M/2D COMP INDICATIONS: Atrial fibrillation, elevated BNP, hypertension COMPARISON: None. DESCRIPTION: COMPLETE ECHOCARDIOGRAM Real-time transthoracic echocardiography with 2D, M-mode, spectral and color flow Doppler performed. QUALITY: Technical quality was good. LEFT VENTRICLE: Normal chamber size. Mild concentric left ventricular hypertrophy. Normal systolic function. LV EF: Normal left ventricular ejection fraction, (55-60%). DIASTOLIC: Not adequately assessed due to heart rhythm. ATRIAL SEPTUM: Visually appears intact. LEFT ATRIUM: Moderate dilatation. RIGHT ATRIUM: Moderate dilatation. RIGHT VENTRICLE: Normal chamber size. Normal systolic function. TRICUSPID VALVE: Normal mobility and thickness. No stenosis with mild regurgitation. Doppler studies reveal moderately (45-60) elevated right sided pressures. RVSP 47 mmHg MITRAL VALVE: Mildly thickened with normal mobility. No evidence of mitral valve stenosis. There is no mitral annular calcification. Mild to moderate mitral regurgitation. AORTIC VALVE: Normal trileaflet appearance. No visible sclerosis. Normal leaflet mobility. No evidence of aortic valve stenosis. Trivial aortic regurgitation. AORTIC ROOT: Normal diameter and appearance. PULMONIC VALVE: Normal thickness and mobility. No stenosis. No regurgitation. PERICARDIUM: No evidence of pericardial effusion. IVC: IVC is dilated (2.8 cm) with partial collapse. PLEURA: CONCLUSION: 1. Mild concentric left ventricular hypertrophy. Normal left ventricular systolic function. LVEF is 55 to 60%. 2. Normal right ventricular size and systolic function. 3. Moderate biatrial dilatation. 4. Mild to moderate mitral regurgitation. 5. Mild tricuspid regurgitation. 6. Moderately elevated right-sided pressures. RVSP is 47 mmHg. 7. No pericardial effusion. Adult Echocardiography Procedure Report Left Ventricle LVEDD (3.7 - 5.6 cm): 4.63 cm LVESD (2.2 - 4.0 cm): 3.27 cm LVIVS thickness (0.6 - 1.2 cm): 1.23 cm LVPW thickness (0.5 - 1.0 cm): 1.24 cm LVOT Max Gradient: 4.76 mm[Hg], 4.01 mm[Hg] Peak Velocity (LVOT): 1.09 m/s, 1.00 m/s Mean Velocity (LVOT): 0.77 m/s, 0.71 m/s LVOT Diameter 2.29 cm Left Ventricular Ejection Fraction: 55-60 % Left Atrium LA Volume Index (2D A2C): 122.52 ml, 122.52 ml Left Atrium Systolic Dimension: 4.72 cm Mitral Valve Mitral Valve E-Wave Peak Velocity: 1.00 m/s, 1.09 m/s Right Ventricle Aorta AO Root Diam: 3.65 cm Aortic Valve AoV Area (Peak Andrew): 3.66 cm2, 3.63 cm2, 3.69 cm2 AoV Area (VTI): 3.38 cm2, 3.23 cm2, 3.57 cm2 Peak Velocity(Antegrade Flow): 1.24 m/s, 1.12 m/s Peak Gradient(Antegrade Flow): 6.15 mm[Hg], 5.03 mm[Hg] Mean Velocity(Antegrade Flow): 0.88 m/s, 0.86 m/s Mean Gradient(Antegrade Flow): 3.56 mm[Hg], 3.20 mm[Hg] Velocity Time Integral: 22.04 cm, 18.72 cm Tricuspid Valve Peak Velocity (Regurgitant Flow): 2.82 m/s Pulmonic Valve Peak Velocity: 0.96 m/s, 0.78 m/s, 0.92 m/s Peak Gradient: 3.66 mm[Hg], 2.42 mm[Hg], 3.39 mm[Hg] Right Atrium Right Atrium Systolic Pressure: 78.21 ml, 78.21 ml Dictated by: Tacos Whitney M.D. on 10/22/2022 at 16:36 Approved by: Tacos Whitney M.D. on 10/22/2022 at 16:41 Normal [facility] PROF 14(COMP METB)on 023 Albumin [Mass/Vol] 2.6 g/dL Critically low 3.4-5.0 [facility] Comment on above: Performed By: #### B SECRET CODE EXPERT, CMP, LIPA, TONI #### [facility] [address] [place] [address] Dr. Sayda Kapoor Albumin/Globulin [Mass ratio] 1.0 {ratio} Normal [facility] Comment on above: Performed By: #### B SECRET CODE EXPERT, CMP, LIPA, TONI #### [facility] [address] [place] [address] Dr. Sayda Kapoor ALP [Catalytic activity/Vol] 61 U/L Normal 46-116 [facility] Comment on above: Performed By: #### B SECRET CODE EXPERT, CMP, LIPA, TONI #### [facility] [address] [place] [address] Dr. Sayda Kapoor ALT [Catalytic activity/Vol] 37 U/L Normal 16-63 [facility] Comment on above: Performed By: #### B SECRET CODE EXPERT, CMP, LIPA, TONI #### [facility] [address] [place] [address] Dr. Sayda Kapoor Anion gap [Moles/Vol] 11.4 mmol/L Normal [facility] Comment on above: Performed By: #### B SECRET CODE EXPERT, CMP, LIPA, TONI #### [facility] [address] [place] [address] Dr. Sayda Kapoor AST [Catalytic activity/Vol] 20 U/L Normal 15-37 [facility] Comment on above: Performed By: #### B SECRET CODE EXPERT, CMP, LIPA, TONI #### [facility] [address] [place] [address] Dr. Sayda Kapoor Bilirubin [Mass/Vol] 1.4 mg/dL Critically high 0.2-1.0 [facility] Comment on above: Performed By: #### B SECRET CODE EXPERT, CMP, LIPA, TONI #### [facility] [address] [place] [address] Dr. Sayda Kapoor Calcium [Mass/Vol] 8.1 mg/dL Critically low 8.5-10.1 [facility] Comment on above: Performed By: #### B SECRET CODE EXPERT, CMP, LIPA, TONI #### [facility] [address] [place] [address] Dr. Sayda Kapoor Chloride [Moles/Vol] 104 mmol/L Normal 98-107 [facility] Comment on above: Performed By: #### B SECRET CODE EXPERT, CMP, LIPA, TONI #### [facility] [address] [place] [address] Dr. Sayda Kapoor CO2 [Moles/Vol] 27.6 mmol/L Normal 21.0-32.0 [facility] Comment on above: Performed By: #### B SECRET CODE EXPERT, CMP, LIPA, TONI #### [facility] [address] [place] [address] Dr. Sayda Kapoor Creatinine [Mass/Vol] 1.07 mg/dL Normal 0.70-1.30 [facility] Comment on above: Performed By: #### B SECRET CODE EXPERT, CMP, LIPA, TONI #### [facility] [address] [place] [address] Dr. Sayda Kapoor EGFR-AF SWAZI >60 Normal >=60 [facility] Comment on above: Performed By: #### B SECRET CODE EXPERT, CMP, LIPA, TONI #### [facility] [address] [place] [address] Dr. Sayda Kapoor EGFR-NON AF SWAZI >60 Normal >=60 [facility] Comment on above: Performed By: #### B SECRET CODE EXPERT, CMP, LIPA, TONI #### [facility] [address] [place] [address] Dr. Sayda Kapoor Globulin (S) [Mass/Vol] 2.5 g/dL Normal [facility] Comment on above: Performed By: #### B SECRET CODE EXPERT, CMP, LIPA, TONI #### [facility] [address] [place] [address] Dr. Sayda Kapoor Glucose [Mass/Vol] 96 mg/dL Normal 74-106 [facility] Comment on above: Performed By: #### B SECRET CODE EXPERT, CMP, LIPA, TONI #### [facility] [address] [place] [address] Dr. Sayda Kapoor Potassium [Moles/Vol] 4.0 mmol/L Normal 3.5-5.1 [facility] Comment on above: Performed By: #### B SECRET CODE EXPERT, CMP, LIPA, TONI #### [facility] [address] [place] [address] Dr. Sayda Kapoor Protein [Mass/Vol] 5.1 g/dL Critically low 6.4-8.2 [facility] Comment on above: Performed By: #### B SECRET CODE EXPERT, CMP, LIPA, TONI #### [facility] [address] [place] [address] Dr. Sayda Kapoor Sodium [Moles/Vol] 139 mmol/L Normal 136-145 [facility] Comment on above: Performed By: #### B SECRET CODE EXPERT, CMP, LIPA, TONI #### [facility] [address] [place] [address] Dr. Sayda Kapoor Urea nitrogen [Mass/Vol] 25.0 mg/dL Critically high 7.0-18.0 [facility] Comment on above: Performed By: #### B SECRET CODE EXPERT, CMP, LIPA, TONI #### [facility] [address] [place] [address] Dr. Sayda Kapoor Urea nitrogen/Creatinine [Mass ratio] 23.4 mg/mg Normal [facility] Comment on above: Performed By: #### B SECRET CODE EXPERT, CMP, LIPA, TONI #### [facility] [address] [place] [address] Dr. Sayda Kapoor UA RANDOM W/MICROSCOPICon BACTERIA NONE SEEN Normal NONE SEEN [facility] Comment on above: Performed By: #### D IG #### [facility] [address] [place] [address] Dr. Sayda Kapoor Bilirubin Ql (U) Negative Normal NEGATIVE [facility] Comment on above: Performed By: #### D IG #### [facility] [address] [place] [address] Dr. Sayda Kapoor CAST NONE SEEN Normal NONE SEEN [facility] Comment on above: Performed By: #### D IG #### [facility] [address] [address] [address] Sayda Kapoor Clarity (U) CLEAR Normal CLEAR [facility] Comment on above: Performed By: #### D IG #### [facility] [address] [address] [address] Sayda Kapoor Color (U) YELLOW Normal YELLOW [facility] Comment on above: Performed By: #### D IG #### [facility] [address] [place] [address] Dr. Sayda Kapoor Crystals LM Nom (Urine sed) NONE SEEN Normal NONE SEEN [facility] Comment on above: Performed By: #### D IG #### [facility] [address] [place] [address] Dr. Sayda Kapoor Epithelial cells LM Ql (Urine sed) NONE SEEN Normal NONE SEEN /RARE [facility] Comment on above: Performed By: #### D IG #### [facility] [address] [place] [address] Dr. Sayda Kapoor Glucose Ql (U) Negative Normal NEGATIVE [facility] Comment on above: Performed By: #### D IG #### [facility] [address] [place] [address] Dr. Sayda Kapoor Hemoglobin Ql (U) TRACE-INTACT Abnormal NEGATIVE [facility] Comment on above: Performed By: #### D IG #### [facility] [address] [address] [address] Sayda Kapoor Ketones Ql (U) Negative Normal NEGATIVE [facility] Comment on above: Performed By: #### D IG #### [facility] [address] [place] [address] Dr. Sayda Kapoor LEUKOCYTES Negative Normal NEGATIVE [facility] Comment on above: Performed By: #### D IG #### [facility] [address] [place] [address] Dr. Sayda Kapoor MUCOUS TRACE Abnormal NONE SEEN [facility] Comment on above: Performed By: #### D IG #### [facility] [address] [place] [address] Dr. Sayda Kapoor Nitrite Ql (U) Negative Normal NEGATIVE [facility] Comment on above: Performed By: #### D IG #### [facility] [address] [place] [address] Dr. Sayda Kapoor pH (U) 6.0 [pH] Normal 5-9 [facility] Comment on above: Performed By: #### D IG #### [facility] [address] [place] [address] Dr. Sayda Kapoor RBC 0-2 Normal 0-2 [facility] Comment on above: Performed By: #### D IG #### [facility] [address] [place] [address] Dr. Sayda Kapoor SPEC GRAVITY 1.020 Normal 1.005-<=1.02 5 [facility] Comment on above: Performed By: #### D IG #### [facility] [address] [place] [address] Dr. Sayda Kapoor UA PROTEIN 30 mg/dl Abnormal NEGATIVE/ TRACE [facility] Comment on above: Performed By: #### D IG #### [facility] [address] [place] [address] Dr. Sayda Kapoor Urobilinogen Qn (U) 1.0 {Rosi'U}/dL Normal 0.2 - 1. 0 [facility] Comment on above: Performed By: #### D IG #### [facility] [address] [place] [address] Dr. Sayda Kapoor WBC NONE SEEN Normal NONE SEEN [facility] Comment on above: Performed By: #### D IG #### [facility] [address] [place] [address] Dr. Sayda Kapoor BNPon 10-21-2022 Natriuretic peptide B (Bld) [Mass/Vol] 4504.0 pg/mL Critically high <=900.0 [facility] Comment on above: Performed By: #### Q NTTB #### [facility] [address] [place] [address] Dr. Sayda Kapoor CARDIAC BETTE 3-6on 3 CK [Catalytic activity/Vol] 111 U/L Normal 39-308 [facility] Comment on above: Performed By: #### C MREP #### [facility] [address] [place] [address] Dr. Sayda Kapoor CK.MB [Mass/Vol] 1.72 ng/mL Normal <=3.60 [facility] Comment on above: Performed By: #### C MREP #### [facility] [address] [place] [address] Dr. Sayda Kapoor HSTROP 15.2 pg/mL Normal 4.0-76.1 [facility] Comment on above: Result Comment: CUT- OFF POINTS HAVE BEEN ESTABLISHED BASED ON THE FOURTH UNIVERSAL DEFINITIONS OF MYOCARDIAL INFARCTION. THE UPPER REFERENCE LIMIT (URL) OF TROPONIN, DEFINED THE 99TH PERCENTILE OF cTnI DISTRIBUTION IN A REFERENCE POPULATION, HAS BEEN CONFIRMED THE DECISION THRESHOLD FOR [place] DIAGNOSIS. Performed By: #### C MREP #### [facility] [address] [place] [address] Dr. Sayda Kapoor CARDIAC BETTE ADMITon 023 CK [Catalytic activity/Vol] 114 U/L Normal 39-308 [facility] Comment on above: Performed By: #### Q NTTB #### [facility] [address] [place] [address] Dr. Sayda Kapoor CK.MB [Mass/Vol] 1.94 ng/mL Normal <=3.60 [facility] Comment on above: Performed By: #### Q NTTB #### [facility] [address] [place] [address] Dr. Sayda Kapoor HSTROP 17.4 pg/mL Normal 4.0-76.1 [facility] Comment on above: Result Comment: CUT- OFF POINTS HAVE BEEN ESTABLISHED BASED ON THE FOURTH UNIVERSAL DEFINITIONS OF MYOCARDIAL INFARCTION. THE UPPER REFERENCE LIMIT (URL) OF TROPONIN, DEFINED THE 99TH PERCENTILE OF cTnI DISTRIBUTION IN A REFERENCE POPULATION, HAS BEEN CONFIRMED THE DECISION THRESHOLD FOR [place] DIAGNOSIS. Performed By: #### Q NTTB #### [facility] [address] [place] [address] Dr. Sayda Kapoor TAIWO 105 ng/mL Critically high 16-96 [facility] Comment on above: Performed By: #### Q NTTB #### [facility] [address] [place] [address] Dr. Sayda Kapoor CBC AUTO DIFFon 10-21-2022 BASO # 0.0 103/ul Normal 0.0-0.1 [facility] Comment on above: Performed By: #### C MREP #### [facility] [address] [place] [address] Dr. Sayda Kapoor Basophils/100 WBC (Bld) 0.3 % Normal 0.2-2.0 [facility] Comment on above: Performed By: #### C MREP #### [facility] [address] [place] [address] Dr. Sayda Kapoor EO # 0.0 103/ul Normal 0.0-0.7 [facility] Comment on above: Performed By: #### C MREP #### [facility] [address] [place] [address] Dr. Sayda Kapoor Eosinophils/100 WBC (Bld) 0.1 % Critically low 0.9-7.0 [facility] Comment on above: Performed By: #### C MREP #### [facility] [address] [place] [address] Dr. Sayda Kapoor Erythrocyte distribution width (RBC) [Ratio] 15.6 % Critically high 11.0-15.0 [facility] Comment on above: Performed By: #### C MREP #### [facility] [address] [place] [address] Dr. Sayda Kapoor Hematocrit (Bld) [Volume fraction] 29.7 % Critically low 42.0-54.0 [facility] Comment on above: Performed By: #### C MREP #### [facility] [address] [place] [address] Dr. Sayda Kapoor Hemoglobin (Bld) [Mass/Vol] 8.7 g/dL Critically low 14.0-18.0 [facility] Comment on above: Performed By: #### C MREP #### [facility] [address] [address] [address] Sayda Kapoor IG # 0.06 10e3/ul Critically high 0.00-0.03 [facility] Comment on above: Performed By: #### C MREP #### [facility] [address] [address] [address] Sayda Kapoor IG % 0.6 % Critically high 0.0-0.5 [facility] Comment on above: Performed By: #### C MREP #### [facility] [address] [address] [address] Sayda Kapoor LYMPH # 1.0 103/ul Critically low 1.2-3.8 [facility] Comment on above: Performed By: #### C MREP #### [facility] [address] [place] [address] Dr. Sayda Kapoor Lymphocytes/100 WBC (Bld) 9.0 % Critically low 20.5-60.0 [facility] Comment on above: Performed By: #### C MREP #### [facility] [address] [place] [address] Dr. Sayda Kapoor MANUAL DIFF REQ NO Normal [facility] Comment on above: Performed By: #### C MREP #### [facility] [address] [place] [address] Dr. Sayda Kapoor MCH (RBC) [Entitic mass] 23.6 pg Critically low 25.9-34.0 [facility] Comment on above: Performed By: #### C MREP #### [facility] [address] [address] [address] Sayda Kapoor MCHC (RBC) [Mass/Vol] 29.3 g/dL Critically low 29.9-35.2 [facility] Comment on above: Performed By: #### C MREP #### [facility] [address] [address] [address] Sayda Kapoor MCV (RBC) [Entitic vol] 80.5 fL Normal 80.0-94.0 [facility] Comment on above: Performed By: #### C MREP #### [facility] [address] [address] [address] Sayda Kapoor MONO # 0.7 103/ul Normal 0.3-0.8 [facility] Comment on above: Performed By: #### C MREP #### [facility] [address] [place] [address] Dr. Sayda Kapoor Monocytes/100 WBC (Bld) 6.0 % Normal 1.7-12.0 [facility] Comment on above: Performed By: #### C MREP #### [facility] [address] [place] [address] Dr. Sayda Kapoor NEUT # 9.1 103/ul Critically high 1.4-6.5 [facility] Comment on above: Performed By: #### C MREP #### [facility] [address] [place] [address] Dr. Sayda Kapoor Neutrophils/100 WBC (Bld) 84.0 % Critically high 43.0-75.0 [facility] Comment on above: Performed By: #### C MREP #### [facility] [address] [place] [address] Dr. Sayda Kapoor Platelet mean volume (Bld) [Entitic vol] 10.1 fL Normal 9.5-13.5 [facility] Comment on above: Performed By: #### C MREP #### [facility] [address] [place] [address] Dr. Sayda Kapoor PLT 374 103/ul Normal 150-450 [facility] Comment on above: Performed By: #### C MREP #### [facility] [address] [place] [address] Dr. Sayda Kapoor RBC 3.69 106/ul Critically low 4.70-6.10 [facility] Comment on above: Performed By: #### C MREP #### [facility] [address] [place] [address] Dr. Sayda Kapoor WBC 10.8 103/ul Normal 4.0-11.0 [facility] Comment on above: Performed By: #### C MREP #### [facility] [address] [place] [address] Dr. Sayda Kapoor [facility] SARS-CoV-2 (COVID-19) RNA KAT+probe Ql (Unsp spec) Not detected Normal NOT DETECTED [facility] Comment on above: Result Comment: When diagnostic testing is negative, the possibility of a false negative should be considered in the context of a patient's recent exposures and the presence of clinical signs and symptoms consistent with SARS-CoV-2. This test is not yet approved or cleared by the [place] FDA. When there are no FDA-approved or cleared tests available, and other criteria are met, FDA can make tests available under an emergency access mechanism called an Emergency Use Authorization (EUA). The EUA for this test is supported by the Rail Engineer of Health and Human Service's declaration that circumstances exist to justify the emergency use of in vitro diagnostics for the detection and/or diagnosis of the virus that causes COVID-19. This EUA will remain in effect for the duration of the COVID-19 declaration justifying emergency of IVDs, unless it is terminated or revoked by the FDA (after which the test may no longer be used). Performed By: #### D IG #### [facility] [address] [place] [address] Dr. Sayda Kapoor LACTATE/LACTIC ACIDon 2022 Lactate [Moles/Vol] 2.5 mmol/L Critically high 0.4-1.9 [facility] Comment on above: Performed By: #### Q NTTB #### [facility] [address] [place] [address] Dr. Sayda Kapoor Lactate [Moles/Vol] 2.3 mmol/L Critically high 0.4-1.9 [facility] Comment on above: Performed By: #### B SECRET CODE EXPERT, CMP, LIPA, TONI #### [facility] [address] [place] [address] Dr. Sayda Kapoor PROF 14(COMP METB)on 023 Albumin [Mass/Vol] 2.8 g/dL Critically low 3.4-5.0 [facility] Comment on above: Performed By: #### Q NTTB #### [facility] [address] [place] [address] Dr. Sayda Kapoor Albumin/Globulin [Mass ratio] 0.9 {ratio} Normal [facility] Comment on above: Performed By: #### Q NTTB #### [facility] [address] [place] [address] Dr. Sayda Kapoor ALP [Catalytic activity/Vol] 66 U/L Normal 46-116 [facility] Comment on above: Performed By: #### Q NTTB #### [facility] [address] [place] [address] Dr. Sayda Kapoor ALT [Catalytic activity/Vol] 41 U/L Normal 16-63 [facility] Comment on above: Performed By: #### Q NTTB #### [facility] [address] [place] [address] Dr. Sayda Kapoor Anion gap [Moles/Vol] 11.9 mmol/L Normal [facility] Comment on above: Performed By: #### Q NTTB #### [facility] [address] [place] [address] Dr. Sayda Kapoor AST [Catalytic activity/Vol] 22 U/L Normal 15-37 [facility] Comment on above: Performed By: #### Q NTTB #### [facility] [address] [place] [address] Dr. Sayda Kapoor Bilirubin [Mass/Vol] 1.3 mg/dL Critically high 0.2-1.0 [facility] Comment on above: Performed By: #### Q NTTB #### [facility] [address] [place] [address] Dr. Sayda Kapoor Calcium [Mass/Vol] 8.1 mg/dL Critically low 8.5-10.1 [facility] Comment on above: Performed By: #### Q NTTB #### [facility] [address] [place] [address] Dr. Sayda Kapoor Chloride [Moles/Vol] 105 mmol/L Normal 98-107 [facility] Comment on above: Performed By: #### Q NTTB #### [facility] [address] [place] [address] Dr. Sayda Kapoor CO2 [Moles/Vol] 27.4 mmol/L Normal 21.0-32.0 [facility] Comment on above: Performed By: #### Q NTTB #### [facility] [address] [place] [address] Dr. Sayda Kapoor Creatinine [Mass/Vol] 1.44 mg/dL Critically high 0.70-1.30 [facility] Comment on above: Performed By: #### Q NTTB #### [facility] [address] [address] [address] Sayda Kapoor EGFR-AF SWAZI 60 mL/min/1.73m2 Normal >=60 [facility] Comment on above: Performed By: #### Q NTTB #### [facility] [address] [place] [address] Dr. Sayda Kapoor EGFR-NON AF SWAZI 50 mL/min/1.73m2 Critically low >=60 [facility] Comment on above: Performed By: #### Q NTTB #### [facility] [address] [place] [address] Dr. Sayda Kapoor Globulin (S) [Mass/Vol] 3.0 g/dL Normal [facility] Comment on above: Performed By: #### Q NTTB #### [facility] [address] [place] [address] Dr. Sayda Kapoor Glucose [Mass/Vol] 132 mg/dL Critically high 74-106 [facility] Comment on above: Performed By: #### Q NTTB #### [facility] [address] [place] [address] Dr. Sayda Kapoor Potassium [Moles/Vol] 4.3 mmol/L Normal 3.5-5.1 [facility] Comment on above: Performed By: #### Q NTTB #### [facility] [address] [place] [address] Dr. Sayda Kapoor Protein [Mass/Vol] 5.8 g/dL Critically low 6.4-8.2 [facility] Comment on above: Performed By: #### Q NTTB #### [facility] [address] [place] [address] Dr. Sayda Kapoor Sodium [Moles/Vol] 140 mmol/L Normal 136-145 [facility] Comment on above: Performed By: #### Q NTTB #### [facility] [address] [place] [address] Dr. Sayda Kapoor Urea nitrogen [Mass/Vol] 31.0 mg/dL Critically high 7.0-18.0 [facility] Comment on above: Performed By: #### Q NTTB #### [facility] [address] [place] [address] Dr. Sayda Kapoor Urea nitrogen/Creatinine [Mass ratio] 21.5 mg/mg Normal [facility] Comment on above: Performed By: #### Q NTTB #### [facility] [address] [place] [address] Dr. Sayda Kapoor T4on 10-21-2022 T4 [Mass/Vol] 5.00 ug/dL Normal 4.50-12.10 [facility] Comment on above: Performed By: #### Q NTTB #### [facility] [address] [place] [address] Dr. Sayda Kapoor TSHon 10-21-2022 TSH 0.918 uIU/mL Normal 0.358-3.740 [facility] Comment on above: Performed By: #### Q NTTB #### [facility] [address] [place] [address] Dr. Sayda Kapoor XR CHEST 1 Von 10-21-2022 XR CHEST 1 V EXAM: XR CHEST 1 V HISTORY: SHORTNESS OF BREATH COMPARISON: None. TECHNIQUE: Portable chest FINDINGS: IMPRESSION: Poor inspiratory effort. No focal consolidation or infiltrate. The heart is not enlarged. No pneumothorax or discrete pleural effusion. Electronically authenticated by: CUBA RO Date: 2022-10-21 18:09 Normal [facility] CREATININEon 10-19-2022 Creatinine [Mass/Vol] 1.21 mg/dL Normal 0.70-1.30 [facility] Comment on above: Performed By: #### B SECRET CODE EXPERT, CMP, LIPA, TONI #### [facility] [address] [place] [address] Dr. Sayda Kapoor EGFR-AF SWAZI >60 Normal >=60 [facility] Comment on above: Performed By: #### B SECRET CODE EXPERT, CMP, LIPA, TONI #### [facility] [address] [address] [address] Sayda Kapoor EGFR-NON AF SWAZI >60 Normal >=60 [facility] Comment on above: Performed By: #### B SECRET CODE EXPERT, CMP, LIPA, TONI #### [facility] [address] [address] [address] Sayda Kapoor Orders Onlyon 10-11-2022 Orders Only [id number] WithAyo park 1960 M Date Provider Department Center 10/11/2022 Abdoulaye-MOUNIKA POMPA AMY Cannon Family History Problem Relation Age of Onset Atrial fibrillation Mother Other Mother Other Mother Coronary artery disease Father Family Status - Relation Status Age at Mother Father Normal [facility] Prep for Procedureon 023 Prep for Procedure [id number] WithAyo park 1960 M Date Provider Department Center 10/01/2022 1987-DANIELLA ABURTO [facility] V[facility] CO HeartVAS Family History Problem Relation Age of Onset Atrial fibrillation Mother Other Mother Other Mother Coronary artery disease Father Family Status - Relation Status Age at Mother Father Normal [facility] Office Visiton 09-24-2022 Follow-up visit [id number] WithAyo park 1960 M Date Provider Department Center 09/24/2022 241-DARREN ELMORE AMY Cannon Family History Problem Relation Age of Onset Atrial fibrillation Mother Other Mother Other Mother Coronary artery disease Father Family Status - Relation Status Age at Mother Father Level of Service:82073 [place] OFFICE/OUTPATIENT NEW HIGH MDM 60-[address] [facility] Consultation Noteon 08-05-20 Consultation Note [id number] #[id number] Normal [facility] CBC AUTO DIFFon 07-26-2022 BASO # 0.1 103/ul Normal 0.0-0.1 [facility] Comment on above: Performed By: #### B SECRET CODE EXPERT, CMP, LIPA, TONI #### [facility] [address] [place] [address] Dr. Sayda Kapoor Basophils/100 WBC (Bld) 0.8 % Normal 0.2-2.0 [facility] Comment on above: Performed By: #### B SECRET CODE EXPERT, CMP, LIPA, TONI #### [facility] [address] [place] [address] Dr. Sayda Kapoor EO # 0.2 103/ul Normal 0.0-0.7 [facility] Comment on above: Performed By: #### B SECRET CODE EXPERT, CMP, LIPA, TONI #### [facility] [address] [place] [address] Dr. Sayda Kapoor Eosinophils/100 WBC (Bld) 2.9 % Normal 0.9-7.0 [facility] Comment on above: Performed By: #### B SECRET CODE EXPERT, CMP, LIPA, TOIN #### [facility] [address] [place] [address] Dr. Sayda Kapoor Erythrocyte distribution width (RBC) [Ratio] 14.3 % Normal 11.0-15.0 [facility] Comment on above: Performed By: #### B SECRET CODE EXPERT, CMP, LIPA, TONI #### [facility] [address] [place] [address] Dr. Sayda Kapoor Hematocrit (Bld) [Volume fraction] 31.5 % Critically low 42.0-54.0 [facility] Comment on above: Performed By: #### B SECRET CODE EXPERT, CMP, LIPA, TONI #### [facility] [address] [place] [address] Dr. Sayda Kapoor Hemoglobin (Bld) [Mass/Vol] 10.1 g/dL Critically low 14.0-18.0 [facility] Comment on above: Performed By: #### B SECRET CODE EXPERT, CMP, LIPA, TONI #### [facility] [address] [place] [address] Dr. Sayda Kapoor IG # 0.07 10e3/ul Critically high 0.00-0.03 [facility] Comment on above: Performed By: #### B SECRET CODE EXPERT, CMP, LIPA, TONI #### [facility] [address] [place] [address] Dr. Sayda Kapoor IG % 1.1 % Critically high 0.0-0.5 [facility] Comment on above: Performed By: #### B SECRET CODE EXPERT, CMP, LIPA, TONI #### [facility] [address] [place] [address] Dr. Sayda Kapoor LYMPH # 1.1 103/ul Critically low 1.2-3.8 [facility] Comment on above: Performed By: #### B SECRET CODE EXPERT, CMP, LIPA, TONI #### [facility] [address] [place] [address] Dr. Sayda Kapoor Lymphocytes/100 WBC (Bld) 17.1 % Critically low 20.5-60.0 [facility] Comment on above: Performed By: #### B SECRET CODE EXPERT, CMP, LIPA, TONI #### [facility] [address] [place] [address] Dr. Sayda Kapoor MANUAL DIFF REQ NO Normal [facility] Comment on above: Performed By: #### B SECRET CODE EXPERT, CMP, LIPA, TONI #### [facility] [address] [place] [address] Dr. Sayda Kapoor MCH (RBC) [Entitic mass] 27.2 pg Normal 25.9-34.0 [facility] Comment on above: Performed By: #### B SECRET CODE EXPERT, CMP, LIPA, TONI #### [facility] [address] [place] [address] Dr. Sayda Kapoor MCHC (RBC) [Mass/Vol] 32.1 g/dL Normal 29.9-35.2 [facility] Comment on above: Performed By: #### B SECRET CODE EXPERT, CMP, LIPA, TONI #### [facility] [address] [place] [address] Dr. Sayda Kapoor MCV (RBC) [Entitic vol] 84.7 fL Normal 80.0-94.0 [facility] Comment on above: Performed By: #### B SECRET CODE EXPERT, CMP, LIPA, TONI #### [facility] [address] [place] [address] Dr. Sayda Kapoor MONO # 0.7 103/ul Normal 0.3-0.8 [facility] Comment on above: Performed By: #### B SECRET CODE EXPERT, CMP, LIPA, TONI #### [facility] [address] [place] [address] Dr. Sayda Kapoor Monocytes/100 WBC (Bld) 10.4 % Normal 1.7-12.0 [facility] Comment on above: Performed By: #### B SECRET CODE EXPERT, CMP, LIPA, TONI #### [facility] [address] [place] [address] Dr. Sayda Kapoor NEUT # 4.5 103/ul Normal 1.4-6.5 [facility] Comment on above: Performed By: #### B SECRET CODE EXPERT, CMP, LIPA, TONI #### [facility] [address] [place] [address] Dr. Sayda Kapoor Neutrophils/100 WBC (Bld) 67.7 % Normal 43.0-75.0 [facility] Comment on above: Performed By: #### B SECRET CODE EXPERT, CMP, LIPA, TONI #### [facility] [address] [place] [address] Dr. Sayda Kapoor Platelet mean volume (Bld) [Entitic vol] 9.0 fL Critically low 9.5-13.5 [facility] Comment on above: Performed By: #### B SECRET CODE EXPERT, CMP, LIPA, TONI #### [facility] [address] [place] [address] Dr. Sayda Kapoor PLT 318 103/ul Normal 150-450 [facility] Comment on above: Performed By: #### B SECRET CODE EXPERT, CMP, LIPA, TONI #### [facility] [address] [place] [address] Dr. Sayda Kapoor RBC 3.72 106/ul Critically low 4.70-6.10 [facility] Comment on above: Performed By: #### B SECRET CODE EXPERT, CMP, LIPA, TONI #### [facility] [address] [place] [address] Dr. Sayda Kapoor WBC 6.6 103/ul Normal 4.0-11.0 [facility] Comment on above: Performed By: #### B SECRET CODE EXPERT, CMP, LIPA, TONI #### [facility] [address] [address] [address] Sayda Kapoor FERRITINon 07-26-2022 Ferritin [Mass/Vol] 19.0 ng/mL Critically low 26.0-388.0 [facility] Comment on above: Performed By: #### B SECRET CODE EXPERT, CMP, LIPA, TONI #### [facility] [address] [address] [address] Sayda Kapoor IRON AND TIBCon 07-26-2022 % SATURATION 10.0 % Normal [facility] Comment on above: Performed By: #### B SECRET CODE EXPERT, CMP, LIPA, TONI #### [facility] [address] [place] [address] Dr. Sayda Kapoor Iron [Mass/Vol] 30.0 ug/dL Critically low 65.0-175.0 [facility] Comment on above: Performed By: #### B SECRET CODE EXPERT, CMP, LIPA, TONI #### [facility] [address] [place] [address] Dr. Sayda Kapoor TIBC DIRECT 299.0 ug/dL Normal 250.0-450.0 [facility] Comment on above: Performed By: #### B SECRET CODE EXPERT, CMP, LIPA, TONI #### [facility] [address] [place] [address] Dr. Sayda Kapoor PANCREATIC ELASTASE FECALon 07-19-2022 Pancreatic Elastase, Fecal 466 ug Elast./g Normal >200 [facility] Comment on above: Result Comment: Serenity re Pancreatic Insufficiency: <100 Moderate Pancreatic Insufficiency: 100 - 200 Normal: >200 Performed By: #### C MREP #### [facility] [address] [place] [address] Dr. Sayda Kapoor BOWEL DISORDERS EVALUATION R ULE-OUT CASCon 07-18-2022 Antigliadin 1 units Normal 0-19 [facility] Comment on above: Result Comment: Nega tive 0 - 19 Weak Positive 20 - 30 Moderate to Strong Positive >30 . Performed By: #### B SECRET CODE EXPERT, CMP, LIPA, TONI #### [facility] [address] [place] [address] Dr. Sayda Kapoor Atypical pANCA Negative Normal Negative [facility] Comment on above: Performed By: #### B SECRET CODE EXPERT, CMP, LIPA, TONI #### [facility] [address] [address] [address] Sayda Kapoor Note: [place] continues Normal [facility] Comment on above: Performed By: #### B SECRET CODE EXPERT, CMP, LIPA, TONI #### [facility] [address] [address] [address] Sayda Kapoor Note: Comment Normal [facility] Comment on above: Result Comment: Sugg estive of irritable bowel syndrome (IBS). Careful evaluation of the patient's history, physical examination, and application of Jr III diagnostic criteria may help to rule in or rule out the diagnosis of IBS. Subsequent testing for Fecal Calprotectin (905008) may be recommended. If IBD is strongly suspected, subsequent testing with the Crohn's Disease Prognostic Profile (848229) that includes anti- glycan antibodies AMCA, ALCA, ACCA, and Sarbjit may aid in differential diagnosis. Performed By: #### B SECRET CODE EXPERT, CMP, LIPA, TONI #### [facility] [address] [place] [address] Dr. Sayda Kapoor Saccharomyces Cer. IgG <20.0 Normal 0.0-24.9 Th [facility] Comment on above: Result Comment: Nega tive <20.0 Equivocal 20.1 - 24.9 Positive >or= 25.0 Performed By: #### B SECRET CODE EXPERT, CMP, LIPA, TONI #### [facility] [address] [place] [address] Dr. Sayda Kapoor tTG/DGP SCR Negative Normal Negative [facility] Comment on above: Performed By: #### B SECRET CODE EXPERT, CMP, LIPA, TONI #### [facility] [address] [place] [address] Dr. Sayda Kapoor LACTOFERRIN FECAL QUANTon Lactoferrin, Fecal, Quant. 35.24 ug/mL(g) Critically high 0.00-7.24 [facility] Comment on above: Result Comment: Re sults verified by repeat testing . Baseline (normal) 0.00 - 7.24 Elevated >7.24 . An elevated result is indicative of the presence of fecal lactoferrin, a marker of intestinal inflammation. A normal result does not exclude the presence of intestinal inflammation. The test can be used as an in vitro diagnostic aid to distinguish patients with active inflammatory bowel disease (IBD) from those with non-inflammatory irritable bowel syndrome (IBS). Performed By: #### D IG #### [facility] [address] [place] [address] Dr. Sayda Kapoor QUANTIFERON TB GOLD PLUSon 1 09-15-2021 QuantiFERON Criteria Comment Normal [facility] Comment on above: Result Comment: Colt tiFERON-TB Gold Plus is a qualitative indirect test for M tuberculosis infection (including disease) and is intended for use in conjunction with risk assessment, radiography, and other medical and diagnostic evaluations. The QuantiFERON-TB Gold Plus result is determined by subtracting the Nil value from either TB antigen (Ag) value. The Mitogen tube serves as a control for the test. Performed By: #### Q NTTB #### [facility] [address] [place] [address] Dr. Sayda Kapoor QuantiFERON Incubation Incubation performed. Normal [facility] Comment on above: Performed By: #### Q NTTB #### [facility] [address] [place] [address] Dr. Sayda Kapoor QuantiFERON Mitogen Value 8.53 IU/mL Normal [facility] Comment on above: Performed By: #### Q NTTB #### [facility] [address] [place] [address] Dr. Sayda Kapoor QuantiFERON Nil Value 0.04 IU/mL Normal [facility] Comment on above: Performed By: #### Q NTTB #### [facility] [address] [place] [address] Dr. Sayda Kapoor QuantiFERON TB1 Ag Value 0.07 IU/mL [facility] Comment on above: Performed By: #### Q NTTB #### [facility] [address] [place] [address] Dr. Sayda Kapoor QuantiFERON TB2 Ag Value 0.04 IU/mL Normal [facility] Comment on above: Performed By: #### Q NTTB #### [facility] [address] [address] [address] Sayda Kapoor QuantiFERON-TB Gold Plus Negative Normal Negative [facility] Comment on above: Result Comment: No r esponse to M tuberculosis antigens detected. Infection with M tuberculosis is unlikely, but high risk individuals should be considered for additional testing (ATS/IDSA/CDC Clinical Practice Guidelines, 2017). The reference range is an Antigen minus Nil result of <0.35 IU/mL. Chemiluminescence immunoassay methodology Performed By: #### Q NTTB #### [facility] [address] [address] [address] Sayda Kapoor CALPROTECTIN, FECALon 2021 Calprotectin, Fecal 247 ug/g Critically high 0-120 [facility] Comment on above: Result Comment: Conc entration Interpretation Follow-Up <16 - 50 ug/g Normal None >50 -120 ug/g Borderline Re-evaluate in 4-6 weeks >120 ug/g Abnormal Repeat as clinically indicated Performed By: #### C MREP #### [facility] [address] [place] [address] Dr. Sayda Kapoor HEP B COREon 07-13-2022 Hep B Core Ab, Tot Negative Normal Negative [facility] Comment on above: Performed By: #### H BCORE #### [facility] [address] [place] [address] Dr. Sayda Kapoor HEP B SURFACE ANTIGEN SCREEN on 07-13-2022 HBsAg Screen Negative Normal Negative [facility] Comment on above: Performed By: #### B SECRET CODE EXPERT, CMP, LIPA, TONI #### [facility] [address] [address] [address] Sayda Kapoor CBC AUTO DIFFon 07-11-2022 BASO # 0.1 103/ul Normal 0.0-0.1 [facility] Comment on above: Performed By: #### C BC #### [facility] [address] [place] [address] Dr. Sayda Kapoor Basophils/100 WBC (Bld) 0.8 % Normal 0.2-2.0 [facility] Comment on above: Performed By: #### C BC #### [facility] [address] [address] [address] Sayda Kapoor EO # 0.2 103/ul Normal 0.0-0.7 [facility] Comment on above: Performed By: #### C BC #### [facility] [address] [place] [address] Dr. Sayda Kapoor Eosinophils/100 WBC (Bld) 3.3 % Normal 0.9-7.0 [facility] Comment on above: Performed By: #### C BC #### [facility] [address] [place] [address] Dr. Sayda Kapoor Erythrocyte distribution width (RBC) [Ratio] 14.6 % Normal 11.0-15.0 [facility] Comment on above: Performed By: #### C BC #### [facility] [address] [place] [address] Dr. Sayda Kapoor Hematocrit (Bld) [Volume fraction] 29.7 % Critically low 42.0-54.0 [facility] Comment on above: Performed By: #### C BC #### [facility] [address] [place] [address] Dr. Sayda Kapoor Hemoglobin (Bld) [Mass/Vol] 9.5 g/dL Critically low 14.0-18.0 [facility] Comment on above: Performed By: #### C BC #### [facility] [address] [place] [address] Dr. Sayda Kapoor IG # 0.03 10e3/ul Normal 0.00-0.03 [facility] Comment on above: Performed By: #### C BC #### [facility] [address] [place] [address] Dr. Sayda Kapoor IG % 0.4 % Normal 0.0-0.5 [facility] Comment on above: Performed By: #### C BC #### [facility] [address] [place] [address] Dr. Sayda Kapoor LYMPH # 1.0 103/ul Critically low 1.2-3.8 [facility] Comment on above: Performed By: #### C BC #### [facility] [address] [place] [address] Dr. Sayda Kapoor Lymphocytes/100 WBC (Bld) 13.6 % Critically low 20.5-60.0 [facility] Comment on above: Performed By: #### C BC #### [facility] [address] [place] [address] Dr. Sayda Kapoor MANUAL DIFF REQ NO Normal [facility] Comment on above: Performed By: #### C BC #### [facility] [address] [place] [address] Dr. Sayda Kapoor MCH (RBC) [Entitic mass] 27.6 pg Normal 25.9-34.0 [facility] Comment on above: Performed By: #### C BC #### [facility] [address] [place] [address] Dr. Sayda Kapoor MCHC (RBC) [Mass/Vol] 32.0 g/dL Normal 29.9-35.2 [facility] Comment on above: Performed By: #### C BC #### [facility] [address] [place] [address] Dr. Sayda Kapoor MCV (RBC) [Entitic vol] 86.3 fL Normal 80.0-94.0 [facility] Comment on above: Performed By: #### C BC #### [facility] [address] [place] [address] Dr. Sayda Kapoor MONO # 0.6 103/ul Normal 0.3-0.8 [facility] Comment on above: Performed By: #### C BC #### [facility] [address] [place] [address] Dr. Sayda Kapoor Monocytes/100 WBC (Bld) 8.6 % Normal 1.7-12.0 [facility] Comment on above: Performed By: #### C BC #### [facility] [address] [place] [address] Dr. Sayda Kapoor NEUT # 5.2 103/ul Normal 1.4-6.5 [facility] Comment on above: Performed By: #### C BC #### [facility] [address] [place] [address] Dr. Sayda Kapoor Neutrophils/100 WBC (Bld) 73.3 % Normal 43.0-75.0 [facility] Comment on above: Performed By: #### C BC #### [facility] [address] [place] [address] Dr. Sayda Kapoor Platelet mean volume (Bld) [Entitic vol] 8.9 fL Critically low 9.5-13.5 [facility] Comment on above: Performed By: #### C BC #### [facility] [address] [place] [address] Dr. Sayda Kapoor PLT 242 103/ul Normal 150-450 [facility] Comment on above: Performed By: #### C BC #### [facility] [address] [place] [address] Dr. Sayda Kapoor RBC 3.44 106/ul Critically low 4.70-6.10 [facility] Comment on above: Performed By: #### C BC #### [facility] [address] [place] [address] Dr. Sayda Kapoor WBC 7.1 103/ul Normal 4.0-11.0 [facility] Comment on above: Performed By: #### C BC #### [facility] [address] [place] [address] Dr. Sayda Kapoor CRPon 07-11-2022 CRP 0.5 mg/dL Normal <=1.0 [facility] Comment on above: Performed By: #### Q NTTB #### [facility] [address] [place] [address] Dr. Sayda Kapoor PROF 14(COMP METB)on 022 Albumin [Mass/Vol] 2.9 g/dL Critically low 3.4-5.0 [facility] Comment on above: Performed By: #### Q NTTB #### [facility] [address] [place] [address] Dr. Sayda Kapoor Albumin/Globulin [Mass ratio] 0.9 {ratio} Normal [facility] Comment on above: Performed By: #### Q NTTB #### [facility] [address] [address] [address] Sayda Kapoor ALP [Catalytic activity/Vol] 60 U/L Normal 46-116 [facility] Comment on above: Performed By: #### Q NTTB #### [facility] [address] [address] [address] Sayda Kapoor ALT [Catalytic activity/Vol] 15 U/L Critically low 16-63 [facility] Comment on above: Performed By: #### Q NTTB #### [facility] [address] [address] [address] Sayda Kapoor Anion gap [Moles/Vol] 8.6 mmol/L Normal [facility] Comment on above: Performed By: #### Q NTTB #### [facility] [address] [place] [address] Dr. Sayda Kapoor AST [Catalytic activity/Vol] 10 U/L Critically low 15-37 [facility] Comment on above: Performed By: #### Q NTTB #### [facility] [address] [place] [address] Dr. Sayda Kapoor Bilirubin [Mass/Vol] 0.3 mg/dL Normal 0.2-1.0 [facility] Comment on above: Performed By: #### Q NTTB #### [facility] [address] [place] [address] Dr. Sayda Kapoor Calcium [Mass/Vol] 8.4 mg/dL Critically low 8.5-10.1 Th [facility] Comment on above: Performed By: #### Q NTTB #### [facility] [address] [place] [address] Dr. Sayda Kapoor Chloride [Moles/Vol] 104 mmol/L Normal 98-107 [facility] Comment on above: Performed By: #### Q NTTB #### [facility] [address] [address] [address] Sayda Kapoor CO2 [Moles/Vol] 29.2 mmol/L Normal 21.0-32.0 [facility] Comment on above: Performed By: #### Q NTTB #### [facility] [address] [address] [address] Sayda Kapoor Creatinine [Mass/Vol] 1.04 mg/dL Normal 0.70-1.30 [facility] Comment on above: Performed By: #### Q NTTB #### [facility] [address] [address] [address] Sayda Kapoor EGFR-AF SWAZI >60 Normal >=60 [facility] Comment on above: Performed By: #### Q NTTB #### [facility] [address] [address] [address] Sayda Kapoor EGFR-NON AF SWAZI >60 Normal >=60 [facility] Comment on above: Performed By: #### Q NTTB #### [facility] [address] [place] [address] Dr. Sayda Kapoor Globulin (S) [Mass/Vol] 3.4 g/dL Normal T [facility] Comment on above: Performed By: #### Q NTTB #### [facility] [address] [place] [address] Dr. Sayda Kapoor Glucose [Mass/Vol] 93 mg/dL Normal 74-106 [facility] Comment on above: Performed By: #### Q NTTB #### [facility] [address] [place] [address] Dr. Sayda Kapoor Potassium [Moles/Vol] 3.8 mmol/L Normal 3.5-5.1 [facility] Comment on above: Performed By: #### Q NTTB #### [facility] [address] [place] [address] Dr. Sayda Kapoor Protein [Mass/Vol] 6.3 g/dL Critically low 6.4-8.2 Th [facility] Comment on above: Performed By: #### Q NTTB #### [facility] [address] [place] [address] Dr. Sayda Kapoor Sodium [Moles/Vol] 138 mmol/L Normal 136-145 [facility] Comment on above: Performed By: #### Q NTTB #### [facility] [address] [place] [address] Dr. Sayda Kapoor Urea nitrogen [Mass/Vol] 17.0 mg/dL Normal 7.0-18.0 [facility] Comment on above: Performed By: #### Q NTTB #### [facility] [address] [address] [address] Sayda Kapoor Urea nitrogen/Creatinine [Mass ratio] 16.3 mg/mg Normal [facility] Comment on above: Performed By: #### Q NTTB #### [facility] [address] [address] [address] Sayda Kapoor PROTIMEon 07-11-2022 INR Coag (PPP) [Relative time] 1.07 {INR} Normal [facility] Comment on above: Performed By: #### Q NTTB #### [facility] [address] [place] [address] Dr. Sayda Kapoor INR GUIDELINES SEE BELOW Normal [facility] Comment on above: Result Comment: SOPHIE RED INR: 2.0 - 3.0 CONDITIONS NOT LISTED BELOW 2.5 - 3.5 FOR PROSTHETIC HEART VALVE REPLACEMENT 2.5 - 3.5 RECURRENT THROMBOSIS Performed By: #### Q NTTB #### [facility] [address] [address] [address] Sayda Kapoor PT Coag (PPP) [Time] 11.5 s Normal 9.0-11.6 [facility] Comment on above: Performed By: #### Q NTTB #### [facility] [address] [place] [address] Dr. Sayda Kapoor SED RATE MEMPHISERGRENon 2021 SED RATE 16 mm/hr Normal <=20 [facility] Comment on above: Performed By: #### D IG #### [facility] [address] [address] [address] Sayda Kapoor Scanned GI Testingon 022 Scanned GI Testing [phone] [id number] #1.00CD:[id number] Normal [facility] CBC AUTO DIFFon 07-04-2022 BASO # 0.1 103/ul Normal 0.0-0.1 [facility] Comment on above: Performed By: #### C MREP #### [facility] [address] [address] [address] Sayda Kapoor Basophils/100 WBC (Bld) 0.6 % Normal 0.2-2.0 [facility] Comment on above: Performed By: #### C MREP #### [facility] [address] [address] [address] Sayda Kapoor EO # 0.2 103/ul Normal 0.0-0.7 [facility] Comment on above: Performed By: #### C MREP #### [facility] [address] [place] [address] Dr. Sayda Kapoor Eosinophils/100 WBC (Bld) 2.2 % Normal 0.9-7.0 [facility] Comment on above: Performed By: #### C MREP #### [facility] [address] [place] [address] Dr. Sayda Kapoor Erythrocyte distribution width (RBC) [Ratio] 14.7 % Normal 11.0-15.0 [facility] Comment on above: Performed By: #### C MREP #### [facility] [address] [place] [address] Dr. Sayda Kapoor Hematocrit (Bld) [Volume fraction] 31.9 % Critically low 42.0-54.0 [facility] Comment on above: Performed By: #### C MREP #### [facility] [address] [place] [address] Dr. Sayda Kapoor Hemoglobin (Bld) [Mass/Vol] 10.2 g/dL Critically low 14.0-18.0 [facility] Comment on above: Performed By: #### C MREP #### [facility] [address] [place] [address] Dr. Sayda Kapoor IG # 0.09 10e3/ul Critically high 0.00-0.03 [facility] Comment on above: Performed By: #### C MREP #### [facility] [address] [place] [address] Dr. Sayda Kapoor IG % 1.1 % Critically high 0.0-0.5 [facility] Comment on above: Performed By: #### C MREP #### [facility] [address] [place] [address] Dr. Sayda Kapoor LYMPH # 1.2 103/ul Normal 1.2-3.8 [facility] Comment on above: Performed By: #### C MREP #### [facility] [address] [address] [address] Sayda Kapoor Lymphocytes/100 WBC (Bld) 14.6 % Critically low 20.5-60.0 [facility] Comment on above: Performed By: #### C MREP #### [facility] [address] [place] [address] Dr. Sayda Kapoor MANUAL DIFF REQ NO Normal [facility] Comment on above: Performed By: #### C MREP #### [facility] [address] [place] [address] Dr. Sayda Kapoor MCH (RBC) [Entitic mass] 27.5 pg Normal 25.9-34.0 [facility] Comment on above: Performed By: #### C MREP #### [facility] [address] [place] [address] Dr. Sayda Kapoor MCHC (RBC) [Mass/Vol] 32.0 g/dL Normal 29.9-35.2 [facility] Comment on above: Performed By: #### C MREP #### [facility] [address] [place] [address] Dr. Sayda Kapoor MCV (RBC) [Entitic vol] 86.0 fL Normal 80.0-94.0 [facility] Comment on above: Performed By: #### C MREP #### [facility] [address] [place] [address] Dr. Sayda Kapoor MONO # 0.9 103/ul Critically high 0.3-0.8 [facility] Comment on above: Performed By: #### C MREP #### [facility] [address] [place] [address] Dr. Sayda Kapoor Monocytes/100 WBC (Bld) 10.4 % Normal 1.7-12.0 T [facility] Comment on above: Performed By: #### C MREP #### [facility] [address] [place] [address] Dr. Sayda Kapoor NEUT # 5.9 103/ul Normal 1.4-6.5 [facility] Comment on above: Performed By: #### C MREP #### [facility] [address] [place] [address] Dr. Sayda Kapoor Neutrophils/100 WBC (Bld) 71.1 % Normal 43.0-75.0 [facility] Comment on above: Performed By: #### C MREP #### [facility] [address] [place] [address] Dr. Sayda Kapoor Platelet mean volume (Bld) [Entitic vol] 8.8 fL Critically low 9.5-13.5 [facility] Comment on above: Performed By: #### C MREP #### [facility] [address] [place] [address] Dr. Sayda Kapoor PLT 252 103/ul Normal 150-450 [facility] Comment on above: Performed By: #### C MREP #### [facility] [address] [place] [address] Dr. Sayda Kapoor RBC 3.71 106/ul Critically low 4.70-6.10 [facility] Comment on above: Performed By: #### C MREP #### [facility] [address] [place] [address] Dr. Sayda Kapoor WBC 8.3 103/ul Normal 4.0-11.0 [facility] Comment on above: Performed By: #### C MREP #### [facility] [address] [place] [address] Dr. Sayda Kapoor CRPon 07-04-2022 CRP 1.8 mg/dL Critically high <=1.0 [facility] Comment on above: Performed By: #### B SECRET CODE EXPERT, CMP, LIPA, TONI #### [facility] [address] [place] [address] Dr. Sayda Kapoor PROF 14(COMP METB)on 022 Albumin [Mass/Vol] 3.0 g/dL Critically low 3.4-5.0 [facility] Comment on above: Performed By: #### B SECRET CODE EXPERT, CMP, LIPA, TONI #### [facility] [address] [place] [address] Dr. Sayda Kapoor Albumin/Globulin [Mass ratio] 1.0 {ratio} Normal [facility] Comment on above: Performed By: #### B SECRET CODE EXPERT, CMP, LIPA, TONI #### [facility] [address] [place] [address] Dr. Sayda Kaporo ALP [Catalytic activity/Vol] 54 U/L Normal 46-116 [facility] Comment on above: Performed By: #### B SECRET CODE EXPERT, CMP, LIPA, TONI #### [facility] [address] [place] [address] Dr. Sayda Kapoor ALT [Catalytic activity/Vol] 17 U/L Normal 16-63 [facility] Comment on above: Performed By: #### B SECRET CODE EXPERT, CMP, LIPA, TONI #### [facility] [address] [place] [address] Dr. Sayda Kapoor Anion gap [Moles/Vol] 6.8 mmol/L Normal [facility] Comment on above: Performed By: #### B SECRET CODE EXPERT, CMP, LIPA, TONI #### [facility] [address] [place] [address] Dr. Sayda Kapoor AST [Catalytic activity/Vol] 13 U/L Critically low 15-37 [facility] Comment on above: Performed By: #### B SECRET CODE EXPERT, CMP, LIPA, TONI #### [facility] [address] [place] [address] Dr. Sayda Kapoor Bilirubin [Mass/Vol] 0.5 mg/dL Normal 0.2-1.0 [facility] Comment on above: Performed By: #### B SECRET CODE EXPERT, CMP, LIPA, TONI #### [facility] [address] [place] [address] Dr. Sayda Kapoor Calcium [Mass/Vol] 8.3 mg/dL Critically low 8.5-10.1 Th [facility] Comment on above: Performed By: #### B SECRET CODE EXPERT, CMP, LIPA, TONI #### [facility] [address] [address] [address] Sayda Kapoor Chloride [Moles/Vol] 102 mmol/L Normal 98-107 [facility] Comment on above: Performed By: #### B SECRET CODE EXPERT, CMP, LIPA, TONI #### [facility] [address] [address] [address] Sayda Kapoor CO2 [Moles/Vol] 31.7 mmol/L Normal 21.0-32.0 [facility] Comment on above: Performed By: #### B SECRET CODE EXPERT, CMP, LIPA, TONI #### [facility] [address] [place] [address] Dr. Sayda Kapoor Creatinine [Mass/Vol] 1.03 mg/dL Normal 0.70-1.30 [facility] Comment on above: Performed By: #### B SECRET CODE EXPERT, CMP, LIPA, TONI #### [facility] [address] [place] [address] Dr. Sayda Kapoor EGFR-AF SWAZI >60 Normal >=60 [facility] Comment on above: Performed By: #### B SECRET CODE EXPERT, CMP, LIPA, TONI #### [facility] [address] [place] [address] Dr. Sayda Kapoor EGFR-NON AF SWAZI >60 Normal >=60 [facility] Comment on above: Performed By: #### B SECRET CODE EXPERT, CMP, LIPA, TONI #### [facility] [address] [place] [address] Dr. Sayda Kapoor Globulin (S) [Mass/Vol] 3.1 g/dL Normal T [facility] Comment on above: Performed By: #### B SECRET CODE EXPERT, CMP, LIPA, TONI #### [facility] [address] [place] [address] Dr. Sayda Kapoor Glucose [Mass/Vol] 102 mg/dL Normal 74-106 [facility] Comment on above: Performed By: #### B SECRET CODE EXPERT, CMP, LIPA, TONI #### [facility] [address] [place] [address] Dr. Sayda Kapoor Potassium [Moles/Vol] 3.5 mmol/L Normal 3.5-5.1 [facility] Comment on above: Performed By: #### B SECRET CODE EXPERT, CMP, LIPA, TONI #### [facility] [address] [place] [address] Dr. Sayda Kapoor Protein [Mass/Vol] 6.1 g/dL Critically low 6.4-8.2 Th [facility] Comment on above: Performed By: #### B SECRET CODE EXPERT, CMP, LIPA, TONI #### [facility] [address] [place] [address] Dr. Sayda Kapoor Sodium [Moles/Vol] 137 mmol/L Normal 136-145 [facility] Comment on above: Performed By: #### B SECRET CODE EXPERT, CMP, LIPA, TONI #### [facility] [address] [place] [address] Dr. Sayda Kapoor Urea nitrogen [Mass/Vol] 19.0 mg/dL Critically high 7.0-18.0 [facility] Comment on above: Performed By: #### B SECRET CODE EXPERT, CMP, LIPA, TONI #### [facility] [address] [place] [address] Dr. Sayda Kapoor Urea nitrogen/Creatinine [Mass ratio] 18.4 mg/mg Normal [facility] Comment on above: Performed By: #### B SECRET CODE EXPERT, CMP, LIPA, TONI #### [facility] [address] [place] [address] Dr. Sayda Kapoor SED RATE [facility] 2021 SED RATE 17 mm/hr Normal <=20 [facility] Comment on above: Performed By: #### C MREP #### [facility] [address] [place] [address] Dr. Sayda Kapoor Scanned GI Testingon 022 Scanned GI Testing [id number] #1.00CD:127 Normal [facility] Scanned GI Testing [id number] #1.00CD:127 Normal [facility] US SINGLE QUAD RT UPPERon US SINGLE QUAD RT UPPER EXAMINATION: US SINGLE QUAD RT UPPER HISTORY: Cholelithiasis without obstruction COMPARISON: 03/08/2022 FINDINGS: The liver is normal in size, contour and echotexture. Hepatopedal flow in the main portal vein. No pelvic mass. The gallbladder is normal in size. The wall measures 2.4 mm. Negative sonographic Orta sign. Multiple echogenic foci measuring up to 1.2 cm with acoustic shadowing, cholelithiasis. The common bile duct measures 7.2 mm, minimally prominent The visualized pancreas is normal The right kidney is normal in appearance measuring 10.2 x 6.7 x 5.5 cm IMPRESSION: Cholelithiasis without evidence of acute cholecystitis Mildly prominent common bile duct with no obstruction observed Electronically authenticated by: CUBA HERNANDEZ Date: 2022-06-23 16:17 Normal [facility] Outside Colonoscopyon 2021 Outside Colonoscopy [id number] #1.00CD:127 Normal [facility] Lab Reportson 05-07-2022 Lab Reports [id number] #1.00CD:127 Normal [facility]on SARS-CoV-2 (COVID-19) RNA KAT+probe Ql (Unsp spec) Not detected Normal NOT DETECTED [facility] Comment on above: Result Comment: This test is not yet approved or cleared by the [place] FDA. When there are no FDA-approved or cleared tests available, and other criteria are met, FDA can make tests available under an emergency access mechanism called an Emergency Use Authorization (EUA). The EUA for this test is supported by the Rail Engineer of Health and Human Service's (HHS's) declaration that circumstances exist to justify the emergency use of in vitro diagnostics for the detection and/or diagnosis of the virus that causes COVID-19. This EUA will remain in effect (meaning this test can be used) for the duration of the COVID-19 declaration justifying emergency of IVDs, unless it is terminated or revoked by FDA (after which the test may no longer be used). When diagnostic testing is negative, the possibility of a false negative should be considered in the context of a patient's recent exposures and the presence of clinical signs and symptoms consistent with SARS-CoV-2. Performed By: #### [facility] #### [facility] [address] [place], [place] [address] Dr. Sayda Kapoor Consent for Procedure/Surger yon 04-17-2022 Consent for Procedure/Surgery [id number]# 1.00CD:127 Normal [facility] RAD - CT Reporton 04-16-2022 RAD - CT Report [id number] #1.00CD:[address] [facility] [address] ABD/PELV W CONon 04-14-20 CT ABD/PELV W CON EXAMINATION: CT ABD/PELV W CON, 04/13/2022 8:34 AM EDT HISTORY: Abdominal pain COMPARISON: 12/12/2017 TECHNIQUE: CT scan of the abdomen and pelvis was performed with IV contrast. CT dose reduction technique was used, including Automated Exposure Control. FINDINGS: LUNG BASES: Peribronchial thickening. Bibasilar infiltrates right greater than left. 1.9 cm right and 1.2 cm left pleural effusions. Coronary atherosclerosis. LIVER: Diffuse hypoattenuation the liver suggesting hepatic steatosis BILIARY: Cholelithiasis. Small amount of pericholecystic fluid. PANCREAS: No lesion, fluid collection, ductal dilatation, or atrophy. SPLEEN: No enlargement or focal lesion. ADRENALS: No mass or enlargement. KIDNEYS: 4.4 cm left renal cyst. No hydronephrosis or obstructing nephrolithiasis. BOWEL/MESENTERY: Moderate amount of stool in the rectum which measures 5.7 cm transversely. Nonobstructive bowel gas pattern. Some mild groundglass attenuation in the right upper quadrant central mesentery with enlarged lymph nodes, the largest lymph node measures 2.5 x 1.37 m on axial image 59 AORTA/VASCULAR: No aortic aneurysm. Mild to moderate atherosclerosis RETROPERITONEUM: No mass or adenopathy. LYMPH NODES: No adenopathy. URINARY BLADDER: Enlarged prostate gland measuring 5.2 cm transversely PELVIC ORGANS: No visible mass. Pelvic organs appropriate for patient age. ABDOMINAL WALL: No mass or hernia. BONES: No bony lesion or fracture. OTHER: Negative. IMPRESSION: Cholelithiasis with pericholecystic fluid suggestive of cholecystitis Small bilateral pleural effusions with patchy right basilar infiltrate atelectasis favored over pneumonia Groundglass attenuation in the right upper mesentery with enlarged lymph nodes. The differential diagnosis would include inflammatory or infectious mesenteritis versus fibrosis with malignancy included in the differential diagnosis Enlarged prostate gland Moderate amount of stool in the rectum Electronically authenticated by: CUBA HERNANDEZ Date: 2022-04-14 14:28 Normal [facility] Consultation Noteon 04-09-20 Consultation Note [id number] #1.00CD:127 Normal [facility] General Surgery Office/Clini c Noteon 04-04-2022 General Surgery Office/Clinic Note Chief Complaint re-evaluate nausea and vomiting HPI Staff 62 year old male presents on consultation from Dr. Balderas to re-evaluate nausea and vomiting. Last evaluation completed 04/2021. RUQ US completed 03/08 with cholelithiasis and GB wall thickening. Angioplasty with stenting completed 12/2020. History of Present Illness 62 yo male with h/o a fib, on Eliquis, CAD, s/p angioplasty with stenting 12/2020, htn, cervical disc disease, osteoarthritis; presents for reevaluation of nausea and intermittent vomiting; intermittent loose stools; no blood or melena; occurs randomly, daily, no triggers; increased bloating; abdominal ache, cramps bilateral lower abdomen, some radiation to upper abd; lasts several hours; no real change with eating; no h/o jaundice or pancreatitis; repeat GB US with small stones, mild wall thickening, no ductal dilation; has cut out most fatty foods with no change in symptoms; no previous abdominal operations, no previous endoscopy; on ELiquis, Plavix and meloxicam daily; no fmhx of GI malignancy or IBD; no tobacco use. Review of Systems PHQ Score Initial Depression Screen Score: 0 ROS - Provider Constitutional: no fever, no sweats, no weight loss. Eyes: no glasses, no blurred vision, no visual loss. ENMT: no dentures, no hoarseness, no swallowing difficulties, no hearing loss, no ear infection(s), no nose bleeds. Cardiovascular: normal blood pressure, no chest pain, regular heartbeat, no heart murmur. Respiratory: no shortness of breath, no cough, no asthma, no wheezing. Gastrointestinal: yes nausea, yes vomiting, yes diarrhea, no constipation, no blood in stool, yes change in bowel habits, yes abdominal pain, no hepatitis. Genitourinary: no kidney stones, no urine infection, no dysuria. Musculoskeletal: yes pain, no weakness. Skin: no changing moles, no rash, no skin lumps. Neurologic: no seizures, no epilepsy, no headache. Psychiatric: no emotional or psychiatric problem. Heme/Lymph: no bleeding problems, no anemia, no blood clots, no transfusions. Allergy/Immunologic: no swollen lymph nodes/glands, no IV drug abuse. Other: Additional ROS info: Except as noted in the above Review of Systems and in the History of Present Illness, all other systems have been reviewed and are negative or noncontributory. Physical Exam Vitals & Measurements HR: 58(Peripheral) RR: 16 BP: 124/74 HT: 172.0 cm HT: 172 cm WT: 90.1 kg WT: 90.1 kg BMI: 30.46 HEENT: normal conjunctiva, sclera clear, no scleral icterus, EOM intact, PERRLA, oral mucosa moist without lesions. Neck: trachea midline, no mass, symmetric, no thyromegaly or nodules, no adenopathy Respiratory: lungs CTA, respirations non labored. Cardiovascular: regular rate and rhythm, no murmur, no pedal edema or varicosities. Gastrointestinal: soft, non distended, mild tenderness,epigastri um and bilateral lower abd; no masses, no palpable hernias, diastasis recti no, no hepatosplenomegaly; normal bs Lymphatic: no cervical adenopathy, Musculoskeletal: normal gait, digits and nails without infection, nodes, cyanosis, clubbing. Skin: no rashes, no lesions, no ulcers, no subcutaneous nodules, induration. Psychiatric/Neuro: oriented to time, place, person, judgement normal, affect appropriate for age, insight intact, no focal deficits. Tests: , x-rays reviewed, review of old records completed, Discussed surgical options, risks, and possible complications with patient. Assessment/Plan 1. Epigastric pain (R10.13: Epigastric pain) will obtain abdominal/pelvic ct scan for further evaluation; also proceed with EGD and colonoscopy; informed consent obtained. 2. Abdominal pain, RLQ (R10.31: Right lower quadrant pain) see # 1 3. Abdominal pain, periumbilical (R10.33: Periumbilical pain) see # 1 4. Change in bowel habits (R19.4: Change in bowel habit) see # 1 5. Iron deficiency anemia (D50.9: Iron deficiency anemia, unspecified) see # 1 6. Nausea (R11.0: Nausea) see # 1 7. Chronic anticoagulation (Z79.01: residential (current) use of anticoagulants) will check with Cardiology to see if Eliquis and Plavix can be held prior to endoscopy. Follow-up No qualifying data available Problem List/Past Medical History Ongoing Abdominal pain, periumbilical Abdominal pain, RLQ Antiplatelet or antithrombotic long-term use Aortic valve regurgitation Atrial fibrillation Cervical disc disease Change in bowel habits Cholelithiasis Chronic anticoagulation Chronic fatigue Coronary atherosclerosis Epigastric pain Gallstones Hypertension Impotence Iron deficiency anemia Mitral valve regurgitation Nausea Osteoarthritis RUQ pain Historical No qualifying data Procedure/Surgical History Angioplasty (12/2020), Insertion of stent into aorta (11/30/2020), Arthroscopy of knee, Cardiac catheterization, Cervical discectomy, Knee replacement, Tonsillectomy, Vasectomy. Medications atorvastatin 80 mg Tab, Oral, Daily clopidogrel 75 mg Tab, 7 (more content not included)... Normal [facility] Comment on above: Result Comment: Elec tronically Signed By: LAZARO DANGELO, Javid Du\.br\Date and Time Signed: 04/04/22 11:03 EDT Consultation Noteon 04-03-20 Consultation Note [id number] #1.00CD:127 Normal [facility] Ambulatory Visit Summaryon 0 04-01-2022 Ambulatory Visit Summary AYO ALICIA :1960 Visit Date:04/01/2022 Ambulatory Visit Instructions Your Diagnosis Abdominal pain, RLQ Abdominal pain, periumbilical Iron deficiency anemia Nausea Chronic anticoagulation Your Care Team Attending Physician - LAZARO DANGELO, Javid Du Primary Care Physician - Perico Balderas MD This Is Your Medications List apixaban (Eliquis 5 mg oral tablet) atorvastatin (atorvastatin 80 mg Tab) doxazosin (doxazosin 4 mg Tab) hyoscyamine (Levsin 0.125 mg SL Tab) isosorbide mononitrate (isosorbide mononitrate 30 mg ER Tab) meloxicam (meloxicam 15 mg oral tablet) metoprolol (Metoprolol tartrate 50 mg Tab) pantoprazole (Protonix 40 mg Tab-DR) sildenafil (Viagra 100 mg Tab) Procedures Performed Angioplasty (12/2020), Insertion of stent into aorta (11/30/2020), Arthroscopy of knee, Cardiac catheterization, Cervical discectomy, Knee replacement, Tonsillectomy, Vasectomy. Discharge Vitals Heart Rate (Peripheral) 58 Respiratory Rate 16 Blood Pressure 124/74 Height 172.0 cm Height 172 cm Weight 90.1 kg Weight 90.1 kg BMI 30.46 Medications What How Much When Instructions Unchanged apixaban (Eliquis 5 mg oral tablet) 1 Tablets By Mouth 2 times a day Unchanged atorvastatin (atorvastatin 80 mg Tab) By Mouth Every day Unchanged doxazosin (doxazosin 4 mg Tab) 1 Tablets By Mouth Every day Unchanged hyoscyamine (Levsin 0.125 mg SL Tab) 1 Tablets By Mouth 4 times a day as needed for Pain Unchanged isosorbide mononitrate (isosorbide mononitrate 30 mg ER Tab) 1 Tablets By Mouth Once a day (in the morning) Unchanged meloxicam (meloxicam 15 mg oral tablet) By Mouth Every day Unchanged metoprolol (Metoprolol tartrate 50 mg Tab) 1 Tablets By Mouth Every day Unchanged pantoprazole (Protonix 40 mg Tab-DR) By Mouth Every day Unchanged sildenafil (Viagra 100 mg Tab) By Mouth Every day Allergies No Known Allergies Problems Ongoing - Any problem that you are currently receiving treatment for. Abdominal pain, periumbilical Abdominal pain, RLQ Antiplatelet or antithrombotic long-term use Cervical disc disease Cholelithiasis Chronic anticoagulation Chronic fatigue Gallstones Hypertension Impotence Iron deficiency anemia Nausea Osteoarthritis RUQ pain Normal [facility] PROF 14(COMP METB)on 022 Albumin [Mass/Vol] 2.7 g/dL Critically low 3.4-5.0 Th [facility] Comment on above: Performed By: #### D IG #### [facility] [address] [place] [address] Dr. Sayda Kapoor Albumin/Globulin [Mass ratio] 0.9 {ratio} Normal [facility] Comment on above: Performed By: #### D IG #### [facility] [address] [place] [address] Dr. Sayda Kapoor ALP [Catalytic activity/Vol] 55 U/L Normal 46-116 [facility] Comment on above: Performed By: #### D IG #### [facility] [address] [place] [address] Dr. Sayda Kapoor ALT [Catalytic activity/Vol] 16 U/L Normal 16-63 [facility] Comment on above: Performed By: #### D IG #### [facility] [address] [place] [address] Dr. Sayda Kapoor Anion gap [Moles/Vol] 13.0 mmol/L Normal [facility] Comment on above: Performed By: #### D IG #### [facility] [address] [place] [address] Dr. Sayda Kapoor AST [Catalytic activity/Vol] 10 U/L Critically low 15-37 [facility] Comment on above: Performed By: #### D IG #### [facility] [address] [place] [address] Dr. Sayda Kapoor Bilirubin [Mass/Vol] 0.7 mg/dL Normal 0.2-1.0 [facility] Comment on above: Performed By: #### D IG #### [facility] [address] [place] [address] Dr. Sayda Kapoor Calcium [Mass/Vol] 7.4 mg/dL Critically low 8.5-10.1 [facility] Comment on above: Performed By: #### D IG #### [facility] [address] [place] [address] Dr. Sayda Kapoor Chloride [Moles/Vol] 110 mmol/L Critically high 98-107 [facility] Comment on above: Performed By: #### D IG #### [facility] [address] [place] [address] Dr. Sayda Kapoor CO2 [Moles/Vol] 25.1 mmol/L Normal 21.0-32.0 [facility] Comment on above: Performed By: #### D IG #### [facility] [address] [address] [address] Sayda Kapoor Creatinine [Mass/Vol] 1.16 mg/dL Normal 0.70-1.30 [facility] Comment on above: Performed By: #### D IG #### [facility] [address] [address] [address] Sayda Kapoor EGFR-AF SWAZI >60 Normal >=60 [facility] Comment on above: Performed By: #### D IG #### [facility] [address] [address] [address] Sayda Kapoor EGFR-NON AF SWAZI >60 Normal >=60 [facility] Comment on above: Performed By: #### D IG #### [facility] [address] [address] [address] Sayda Kapoor Globulin (S) [Mass/Vol] 3.0 g/dL Normal [facility] Comment on above: Performed By: #### D IG #### [facility] [address] [address] [address] Sayda Kapoor Glucose [Mass/Vol] 122 mg/dL Critically high 74-106 [facility] Comment on above: Performed By: #### D IG #### [facility] [address] [address] [address] Sayda Kapoor Potassium [Moles/Vol] 3.1 mmol/L Critically low 3.5-5.1 [facility] Comment on above: Performed By: #### D IG #### [facility] [address] [address] [address] Sayda Kapoor Protein [Mass/Vol] 5.7 g/dL Critically low 6.4-8.2 [facility] Comment on above: Performed By: #### D IG #### [facility] [address] [address] [address] Sayda Kapoor Sodium [Moles/Vol] 145 mmol/L Normal 136-145 [facility] Comment on above: Performed By: #### D IG #### [facility] [address] [address] [address] Sayda Kapoor Urea nitrogen [Mass/Vol] 16.0 mg/dL Normal 7.0-18.0 [facility] Comment on above: Performed By: #### D IG #### [facility] [address] [address] [address] Sayda Kapoor Urea nitrogen/Creatinine [Mass ratio] 13.8 mg/mg Normal [facility] Comment on above: Performed By: #### D IG #### [facility] [address] [address] [address] Sayda Kapoor Lab Reportson 03-18-2022 Lab Reports [id number]#1.00CD:127 Normal [facility] RAD - Ultrasound Reporton RAD - Ultrasound Report [id number] #1.00CD:127 Normal [facility] PROF 14(COMP METB)on 022 Albumin [Mass/Vol] 3.1 g/dL Critically low 3.4-5.0 [facility] Comment on above: Performed By: #### B SECRET CODE EXPERT, CMP, LIPA, TONI #### [facility] [address] [place] [address] Dr. Sayda Kapoor Albumin/Globulin [Mass ratio] 0.9 {ratio} Normal [facility] Comment on above: Performed By: #### B SECRET CODE EXPERT, CMP, LIPA, TONI #### [facility] [address] [place] [address] Dr. Sayda Kapoor ALP [Catalytic activity/Vol] 67 U/L Normal 46-116 [facility] Comment on above: Performed By: #### B SECRET CODE EXPERT, CMP, LIPA, TONI #### [facility] [address] [place] [address] Dr. Sayda Kapoor ALT [Catalytic activity/Vol] 25 U/L Normal 16-63 [facility] Comment on above: Performed By: #### B SECRET CODE EXPERT, CMP, LIPA, TONI #### [facility] [address] [place] [address] Dr. Sayda Kapoor Anion gap [Moles/Vol] 10.1 mmol/L Normal Th e [facility] Comment on above: Performed By: #### B SECRET CODE EXPERT, CMP, LIPA, TONI #### [facility] [address] [place] [address] Dr. Sayda Kapoor AST [Catalytic activity/Vol] 15 U/L Normal 15-37 [facility] Comment on above: Performed By: #### B SECRET CODE EXPERT, CMP, LIPA, TONI #### [facility] [address] [place] [address] Dr. Sayda Kapoor Bilirubin [Mass/Vol] 1.1 mg/dL Critically high 0.2-1.0 [facility] Comment on above: Performed By: #### B SECRET CODE EXPERT, CMP, LIPA, TONI #### [facility] [address] [place] [address] Dr. Sayda Kapoor Calcium [Mass/Vol] 8.7 mg/dL Normal 8.5-10.1 [facility] Comment on above: Performed By: #### B SECRET CODE EXPERT, CMP, LIPA, TONI #### [facility] [address] [place] [address] Dr. Sayda Kapoor Chloride [Moles/Vol] 103 mmol/L Normal 98-107 [facility] Comment on above: Performed By: #### B SECRET CODE EXPERT, CMP, LIPA, TONI #### [facility] [address] [place] [address] Dr. Sayda Kapoor CO2 [Moles/Vol] 28.7 mmol/L Normal 21.0-32.0 [facility] Comment on above: Performed By: #### B SECRET CODE EXPERT, CMP, LIPA, TONI #### [facility] [address] [place] [address] Dr. Sayda Kapoor Creatinine [Mass/Vol] 1.61 mg/dL Critically high 0.70-1.30 [facility] Comment on above: Performed By: #### B SECRET CODE EXPERT, CMP, LIPA, TOIN #### [facility] [address] [address] [address] Sayda Kapoor EGFR-AF SWAZI 53 mL/min/1.73m2 Critically low >=60 [facility] Comment on above: Performed By: #### B SECRET CODE EXPERT, CMP, LIPA, TONI #### [facility] [address] [place] [address] Dr. Sayda Kapoor EGFR-NON AF SWAZI 44 mL/min/1.73m2 Critically low >=60 [facility] Comment on above: Performed By: #### B SECRET CODE EXPERT, CMP, LIPA, TONI #### [facility] [address] [place] [address] Dr. Sayda Kapoor Globulin (S) [Mass/Vol] 3.6 g/dL Normal [facility] Comment on above: Performed By: #### B SECRET CODE EXPERT, CMP, LIPA, TONI #### [facility] [address] [place] [address] Dr. Sayda Kapoor Glucose [Mass/Vol] 130 mg/dL Critically high 74-106 [facility] Comment on above: Performed By: #### B SECRET CODE EXPERT, CMP, LIPA, TONI #### [facility] [address] [place] [address] Dr. Sayda Kapoor Potassium [Moles/Vol] 3.8 mmol/L Normal 3.5-5.1 [facility] Comment on above: Performed By: #### B SECRET CODE EXPERT, CMP, LIPA, TONI #### [facility] [address] [place] [address] Dr. Sayda Kapoor Protein [Mass/Vol] 6.7 g/dL Normal 6.4-8.2 [facility] Comment on above: Performed By: #### B SECRET CODE EXPERT, CMP, LIPA, TONI #### [facility] [address] [place] [address] Dr. Sayda Kapoor Sodium [Moles/Vol] 138 mmol/L Normal 136-145 [facility] Comment on above: Performed By: #### B SECRET CODE EXPERT, CMP, LIPA, TONI #### [facility] [address] [place] [address] Dr. Sayda Kapoor Urea nitrogen [Mass/Vol] 31.0 mg/dL Critically high 7.0-18.0 [facility] Comment on above: Performed By: #### B SECRET CODE EXPERT, CMP, LIPA, TONI #### [facility] [address] [place] [address] Dr. Sayda Kapoor Urea nitrogen/Creatinine [Mass ratio] 19.3 mg/mg Normal [facility] Comment on above: Performed By: #### B SECRET CODE EXPERT, CMP, LIPA, TONI #### [facility] [address] [place] [address] Dr. Sayda Kapoor AMYLASEon 03-08-2022 Amylase [Catalytic activity/Vol] 63 U/L Normal 25-115 [facility] Comment on above: Performed By: #### B SECRET CODE EXPERT, CMP, LIPA, TONI #### [facility] [address] [place] [address] Dr. Sayda Kapoor BNPon 03-08-2022 Natriuretic peptide B (Bld) [Mass/Vol] 47.0 pg/mL Normal <=900.0 [facility] Comment on above: Performed By: #### B SECRET CODE EXPERT, CMP, LIPA, TONI #### [facility] [address] [place] [address] Dr. Sayda Kapoor CBC AUTO DIFFon 03-08-2022 BASO # 0.0 103/ul Normal 0.0-0.1 [facility] Comment on above: Performed By: #### C MREP #### [facility] [address] [place] [address] Dr. Sayda Kapoor Basophils/100 WBC (Bld) 0.5 % Normal 0.2-2.0 [facility] Comment on above: Performed By: #### C MREP #### [facility] [address] [place] [address] Dr. Sayda Kapoor EO # 0.3 103/ul Normal 0.0-0.7 [facility] Comment on above: Performed By: #### C MREP #### [facility] [address] [place] [address] Dr. Sayda Kapoor Eosinophils/100 WBC (Bld) 3.1 % Normal 0.9-7.0 [facility] Comment on above: Performed By: #### C MREP #### [facility] [address] [address] [address] Sayda Kapoor Erythrocyte distribution width (RBC) [Ratio] 13.8 % Normal 11.0-15.0 [facility] Comment on above: Performed By: #### C MREP #### [facility] [address] [place] [address] Dr. Sayda Kapoor Hematocrit (Bld) [Volume fraction] 35.0 % Critically low 42.0-54.0 [facility] Comment on above: Performed By: #### C MREP #### [facility] [address] [place] [address] Dr. Sayda Kapoor Hemoglobin (Bld) [Mass/Vol] 11.3 g/dL Critically low 14.0-18.0 [facility] Comment on above: Performed By: #### C MREP #### [facility] [address] [place] [address] Dr. Sayda Kapoor IG # 0.05 10e3/ul Critically high 0.00-0.03 [facility] Comment on above: Performed By: #### C MREP #### [facility] [address] [place] [address] Dr. Sayda Kapoor IG % 0.6 % Critically high 0.0-0.5 [facility] Comment on above: Performed By: #### C MREP #### [facility] [address] [place] [address] Dr. Sayda Kapoor LYMPH # 1.0 103/ul Critically low 1.2-3.8 [facility] Comment on above: Performed By: #### C MREP #### [facility] [address] [place] [address] Dr. Sayda Kapoor Lymphocytes/100 WBC (Bld) 11.7 % Critically low 20.5-60.0 [facility] Comment on above: Performed By: #### C MREP #### [facility] [address] [place] [address] Dr. Sayda Kapoor MANUAL DIFF REQ NO Normal [facility] Comment on above: Performed By: #### C MREP #### [facility] [address] [place] [address] Dr. Sayda Kapoor MCH (RBC) [Entitic mass] 29.0 pg Normal 25.9-34.0 [facility] Comment on above: Performed By: #### C MREP #### [facility] [address] [place] [address] Dr. Sayda Kapoor MCHC (RBC) [Mass/Vol] 32.3 g/dL Normal 29.9-35.2 [facility] Comment on above: Performed By: #### C MREP #### [facility] [address] [place] [address] Dr. Sayda Kapoor MCV (RBC) [Entitic vol] 90.0 fL Normal 80.0-94.0 [facility] Comment on above: Performed By: #### C MREP #### [facility] [address] [place] [address] Dr. Sayda Kapoor MONO # 0.8 103/ul Normal 0.3-0.8 [facility] Comment on above: Performed By: #### C MREP #### [facility] [address] [place] [address] Dr. Sayda Kapoor Monocytes/100 WBC (Bld) 8.9 % Normal 1.7-12.0 [facility] Comment on above: Performed By: #### C MREP #### [facility] [address] [place] [address] Dr. Sayda Kapoor NEUT # 6.6 103/ul Critically high 1.4-6.5 [facility] Comment on above: Performed By: #### C MREP #### [facility] [address] [place] [address] Dr. Sayda Kapoor Neutrophils/100 WBC (Bld) 75.2 % Critically high 43.0-75.0 [facility] Comment on above: Performed By: #### C MREP #### [facility] [address] [place] [address] Dr. Sayda Kapoor Platelet mean volume (Bld) [Entitic vol] 8.9 fL Critically low 9.5-13.5 [facility] Comment on above: Performed By: #### C MREP #### [facility] [address] [place] [address] Dr. Sayda Kapoor PLT 317 103/ul Normal 150-450 [facility] Comment on above: Performed By: #### C MREP #### [facility] [address] [place] [address] Dr. Sayda Kapoor RBC 3.89 106/ul Critically low 4.70-6.10 [facility] Comment on above: Performed By: #### C MREP #### [facility] [address] [place] [address] Dr. Sayda Kapoor WBC 8.7 103/ul Normal 4.0-11.0 [facility] Comment on above: Performed By: #### C MREP #### [facility] [address] [place] [address] Dr. Sayda Kapoor IRONon 03-08-2022 Iron [Mass/Vol] 42.0 ug/dL Critically low 65.0-175.0 [facility] Comment on above: Performed By: #### B SECRET CODE EXPERT, CMP, LIPA, TONI #### [facility] [address] [place] [address] Dr. Sayda Kapoor LIPASEon 03-08-2022 Lipase [Catalytic activity/Vol] 80.0 U/L Normal 73.0-393.0 [facility] Comment on above: Performed By: #### B SECRET CODE EXPERT, CMP, LIPA, TONI #### [facility] [address] [place] [address] Dr. Sayda Kapoor PROF 14(COMP METB)on 022 Albumin [Mass/Vol] 3.3 g/dL Critically low 3.4-5.0 [facility] Comment on above: Performed By: #### B SECRET CODE EXPERT, CMP, LIPA, TONI #### [facility] [address] [place] [address] Dr. Sayda Kapoor Albumin/Globulin [Mass ratio] 0.8 {ratio} Normal [facility] Comment on above: Performed By: #### B SECRET CODE EXPERT, CMP, LIPA, TONI #### [facility] [address] [place] [address] Dr. Sayda Kapoor ALP [Catalytic activity/Vol] 70 U/L Normal 46-116 [facility] Comment on above: Performed By: #### B SECRET CODE EXPERT, CMP, LIPA, TONI #### [facility] [address] [place] [address] Dr. Sayda Kapoor ALT [Catalytic activity/Vol] 25 U/L Normal 16-63 [facility] Comment on above: Performed By: #### B SECRET CODE EXPERT, CMP, LIPA, TONI #### [facility] [address] [place] [address] Dr. Sayda Kapoor Anion gap [Moles/Vol] 13.7 mmol/L Normal [facility] Comment on above: Performed By: #### B SECRET CODE EXPERT, CMP, LIPA, TONI #### [facility] [address] [place] [address] Dr. Sayda Kapoor AST [Catalytic activity/Vol] 15 U/L Normal 15-37 [facility] Comment on above: Performed By: #### B SECRET CODE EXPERT, CMP, LIPA, TONI #### [facility] [address] [place] [address] Dr. Sayda Kapoor Bilirubin [Mass/Vol] 0.8 mg/dL Normal 0.2-1.0 [facility] Comment on above: Performed By: #### B SECRET CODE EXPERT, CMP, LIPA, TONI #### [facility] [address] [place] [address] Dr. Sayda Kapoor Calcium [Mass/Vol] 8.7 mg/dL Normal 8.5-10.1 [facility] Comment on above: Performed By: #### B SECRET CODE EXPERT, CMP, LIPA, TONI #### [facility] [address] [place] [address] Dr. Sayda Kapoor Chloride [Moles/Vol] 102 mmol/L Normal 98-107 [facility] Comment on above: Performed By: #### B SECRET CODE EXPERT, CMP, LIPA, TONI #### [facility] [address] [place] [address] Dr. Sayda Kpaoor CO2 [Moles/Vol] 28.1 mmol/L Normal 21.0-32.0 [facility] Comment on above: Performed By: #### B SECRET CODE EXPERT, CMP, LIPA, TONI #### [facility] [address] [place] [address] Dr. Sayda Kapoor Creatinine [Mass/Vol] 2.04 mg/dL Critically high 0.70-1.30 [facility] Comment on above: Performed By: #### B SECRET CODE EXPERT, CMP, LIPA, TONI #### [facility] [address] [place] [address] Dr. Sayda Kapoor EGFR-AF SWAZI 40 mL/min/1.73m2 Critically low >=60 [facility] Comment on above: Performed By: #### B SECRET CODE EXPERT, CMP, LIPA, TONI #### [facility] [address] [place] [address] Dr. Sayda Kapoor EGFR-NON AF SWAZI 33 mL/min/1.73m2 Critically low >=60 [facility] Comment on above: Performed By: #### B SECRET CODE EXPERT, CMP, LIPA, TONI #### [facility] [address] [place] [address] Dr. Sayda Kapoor Globulin (S) [Mass/Vol] 3.9 g/dL Normal [facility] Comment on above: Performed By: #### B SECRET CODE EXPERT, CMP, LIPA, TONI #### [facility] [address] [place] [address] Dr. Sayda Kapoor Glucose [Mass/Vol] 120 mg/dL Critically high 74-106 [facility] Comment on above: Performed By: #### B SECRET CODE EXPERT, CMP, LIPA, TONI #### [facility] [address] [place] [address] Dr. Sayda Kapoor Potassium [Moles/Vol] 3.8 mmol/L Normal 3.5-5.1 [facility] Comment on above: Performed By: #### B SECRET CODE EXPERT, CMP, LIPA, TONI #### [facility] [address] [place] [address] Dr. Sayda Kapoor Protein [Mass/Vol] 7.2 g/dL Normal 6.4-8.2 [facility] Comment on above: Performed By: #### B SECRET CODE EXPERT, CMP, LIPA, TONI #### [facility] [address] [address] [address] Sayda Kapoor Sodium [Moles/Vol] 140 mmol/L Normal 136-145 [facility] Comment on above: Performed By: #### B SECRET CODE EXPERT, CMP, LIPA, TONI #### [facility] [address] [address] [address] Sayda Kapoor Urea nitrogen [Mass/Vol] 38.0 mg/dL Critically high 7.0-18.0 [facility] Comment on above: Performed By: #### B SECRET CODE EXPERT, CMP, LIPA, TONI #### [facility] [address] [address] [address] Sayda Kapoor Urea nitrogen/Creatinine [Mass ratio] 18.6 mg/mg Normal [facility] Comment on above: Performed By: #### B SECRET CODE EXPERT, CMP, LIPA, TONI #### [facility] [address] [place] [address] Dr. Sayda Kapoor Physician Referralon 022 Physician Referral [id number] Normal [facility] US SINGLE QUAD RT UPPERon US SINGLE QUAD RT UPPER EXAMINATION: US SINGLE QUAD RT UPPER HISTORY: Cholelithiasis without obstruction ; right upper quadrant pain, nausea COMPARISON: Ultrasound right upper quadrant 04/17/2021 TECHNIQUE: Transabdominal evaluation of the right upper quadrant. FINDINGS: LIVER: Normal size and echotexture. Color Doppler demonstrates patent hepatic veins. PORTAL VEIN: Duplex Doppler demonstrates normal hepatopetal flow pattern with flow velocity averaging 34 cm/s. GALLBLADDER: Filled with stones. Abnormal wall thickening, 5 mm. No free fluid. BILIARY: Common bile duct is at upper limits of normal, 6 mm. No appreciable stones within the duct. PANCREASE: No visible mass, abnormal atrophy, or duct dilation. KIDNEY: No hydronephrosis. No visible mass or stones. Size: 10.2 x 5.4 x 5.8 cm IMPRESSION: 1. Cholelithiasis and abnormal gallbladder wall thickening; chronic versus acute cholecystitis. Patient denies tenderness while imaging over the gallbladder suggesting chronic cholecystitis. Electronically authenticated by: CL POTTS Date: 2022-03-08 17:27 Normal [facility] CNOVon 02-12-2021 CNOV Office Visit (UROLMN) AYO ALICIA ([id number]) 1960 M Date Time Provider Department 02/12/21 2:00 PM JESSE INFANTE UROBERTHA During your visit today, we recorded the following information about you: Pulse Respiration Blood pressure Weight 74/minute 16/minute 113/68 83.9 kg Jesse Infante MD 02/12/2021 2:58 PM Signed [facility] NEW PATIENT HISTORY AND PHYSICAL EXAM PATIENT INFO: Ayo Alicia 60 year old REFERRING M.D.: Hosea Rust [address] [place] [address] This consult was requested by Dr. Rust for an opinion regarding Peyronie's disease, and my final recommendations will be communicated to the requesting health care provider by way of the shared medical record for internal providers or letter via the [employer] for external providers. HISTORY CHIEF COMPLAINT: Peyronie's disease HPI: Per OV 01/26/21 Dr. Pagan- Pt states that he has noticed the curve about 3 years ago. Pt states that he is at 30 degree angle, pt is denying any severe pain with erections, just slight discomfort. Pt states that with the curve it makes it harder for him to ejaculate Chronic, ongoing for the past few years. no plaque palpated. Pt's picture shows a 50 degrees dorsal curvature Patient is currently taking Viagra. PSA (04/28/20)- 1.26 UA is negative GUROS: Force of Stream:Normal NOCTURIA: No Day Time Frequency: Normal Hesitancy: No Intermittency: No Incomplete Emptying: No Post void Dribbling: No Urinary Retention Hx: No Double Voiding: No Urgency: No Dysuria: No Incontinence history: No HISTORY OF FAMILY CANCER:No gross hematuria history: No Erectile dysfunction: Yes UTI Hx: No MEDICATIONS: Current Outpatient Medications Medication Sig - aspirin 325 mg tablet Take by mouth. - atorvastatin (LIPITOR) 80 mg tablet atorvastatin 80 mg tablet TAKE 1 TABLET BY MOUTH DAILY - buPROPion XL (WELLBUTRIN XL) 150 mg 24 hr tablet q 24 HR. - carvedilol (COREG) 12.5 mg tablet carvedilol 12.5 mg tablet TAKE 1 TABLET BY MOUTH TWICE DAILY - clopidogrel (PLAVIX) 75 mg tablet clopidogrel 75 mg tablet TAKE 1 TABLET BY MOUTH DAILY - lisinopril-hydroCHLO ROthiazide (PRINZIDE,ZESTORETIC ) 20-12.5 mg per tablet q 24 HR. - meloxicam (MOBIC) 15 mg tablet q 24 HR. - omeprazole (PRILOSEC) 40 mg capsule q 24 HR. - sildenafil (VIAGRA) 100 mg tablet No current facility-administere d medications for this visit. MEDICATION ALLERGIES: ALLERGIES No Known Allergies No past medical history on file. No past surgical history on file. Social History Tobacco Use - Smoking status: Never Smoker - Smokeless tobacco: Never Used Substance Use Topics - Alcohol use: Not on file - Drug use: Not on file REVIEW OF SYSTEMS: Constitutional: negative Eyes: negative Ear Nose and Throat: negative Cardiovascular: negative Respiratory: negative Gastrointestinal: negative Musculoskeletal: negative Integumentary: negative Neurological: negative Psychiatric: negative Endocrine: negative Hematologic/Lymphati c: negative Allergic/Immunologic : negative HPI: Patient is a 60 year old male who presents Today with Peyronie's disease. Patient states that Dr. Rust sent him. This started about 2.5 years ago and the first thing he noticed was the bend of the penis along with pain at the base. Currently when he has an erection it is not painful and it bends upwards. The cell phone photo shows 60 degrees of dorsal curvature. He states that he does not have trouble getting an erection but sometimes have problems maintaining an erection. Sometimes he takes Cialis and he feels it seems to help. Rigidity without medication is 8-85.10. Patient denies gross hematuria, dysuria, loss of appetite, N/V, heartburn, CP, SOB, constipation or diarrhea. He states that he has lost about 15 pounds since his knee replacement in therapy. He also states that he recently had a heart catheter. Patient states that there is not much discomfort as much as there is frustration. PHYSICAL EXAM: BP 113/68 Pulse 74 Resp 16 Wt 83.9 kg (185 lb) GENERAL:WNL nutrition, no deformities, healthy appearing ABDOMEN: Soft, nontender, nondistended, no masses. SKIN/LYMPH: No rash, lesions NEURO/PSYCH: No signs of depression, anxiety, or agitation EXTREMITIES: Extremities normal. No deformities, edema, clubbing or skin discoloration. GENITOURINARY: MALE EXAM: Circumcised. Along the top of the penis there is a long narrow dorsal plaque extending the entire length of the penis. Scrotum and testes are normal. ===== (more content not included)... Normal [facility] Urinalysison 02-12-2021 Bilirubin, Urine Negative Normal Negative [facility] Comment on above: Performed By: #### U A #### [facility] [address] [place], [place] [id number] Clarity (U) Clear Normal Clear [facility] Comment on above: Performed By: #### U A #### [facility] [address] [address] Color (U) Yellow Normal Yellow [facility] Comment on above: Performed By: #### U A #### [place] [address] Comments SEE COMMENT Normal [facility] Comment on above: Result Comment: Micr oscopic not warranted Performed By: #### U A #### [place] [address] Glucose Ql (U) Negative Normal Negative [facility] Comment on above: Performed By: #### U A #### [place] [address] Hemoglobin/Blood,Ur Negative Normal Negative [facility] Comment on above: Performed By: #### U A #### [id number] [place] [address] Ketones Ql (U) Negative Normal Negative [facility] Comment on above: Performed By: #### U A #### [place] [address] Leukest Negative Normal Negative [facility] Comment on above: Performed By: #### U A #### [place] [address] [id number] [place] [address] Nitrite Ql (U) Negative Normal Negative [facility] Comment on above: Performed By: #### U A #### [place] [address] [id number] [place] [address] pH (U) 5.0 [pH] Normal 5.0-8.0 [facility] Comment on above: Performed By: #### U A #### [place] [address] Protein, Urine Negative Normal Negative [facility] Comment on above: Performed By: #### U A #### [facility] [address] [place], [place] [address] Specific [place], Ur 1.019 Normal 1.005-1.030 [facility] Comment on above: Performed By: #### U A #### [facility] [address] [place], [place] [address] Urine Martín Comment SEE COMMENT Normal [facility] Comment on above: Result Comment: N/A Performed By: #### U A #### [facility] [address] [place], [place] [address] Urobilinogen (U) [Mass/Vol] Negative Normal Negative [facility] Comment on above: Performed By: #### U A #### [id number] [place], [place] [address] Cardiovascular Lab Reporton 01-26-2021 Cardiovascular Lab Report [facility] Patient Name: [facility] Ayo MR #: [id number] Department of Physician: Fatuma Garcia M.D. Division of Service Date: 01/26/2021 Cardiology Birthdate: 1960 Adult Cardiovascular Room #: [address] [place], [place] [address] Cardiovascular Laboratory Report FINAL IMPRESSIONS: 1. Severe, heavily calcific stenosis of the left anterior descending coronary artery successfully treated by intravascular lithotripsy and Synergy drug-eluting stent placement. 2. Severe proximal and mid vessel disease of a short posterior descending branch of the right coronary artery. 3. Moderate disease of the left circumflex coronary artery. 4. Normal global left ventricular systolic function by noninvasive imaging. RECOMMENDATIONS: 1. Aspirin 81 mg lifelong. 2. Plavix 75 mg daily for a minimum of 6 months. 3. Guideline directed medical therapy for coronary artery disease should include dual antiplatelet therapy, high-intensity statin therapy, a beta césar, +/- an angiotensin-converti ng enzyme inhibitor. 4. A fasting lipid profile and liver function tests will be checked in 6 to 8 weeks. 5. Will consider returns for elective revascularization of the posterior descending branch of the right coronary artery depending on clinical symptomatology; it is a small caliber, short vessel that subtends a small area of myocardium. 6. Follow up with [facility] in the [facility] in the next 2 to 3 weeks. 7. Follow up with his family physician as scheduled. PROCEDURES: Bilateral selective coronary angiography via right radial approach, intravascular lithotripsy using the SHOCKWAVE balloon, percutaneous Synergy drug-eluting stent placement. METHODS: After risks, benefits, and alternatives were explained, written informed consent was obtained. The patient was prepped and draped in usual sterile fashion over the right wrist and right groin. Using 1% lidocaine solution, local infiltration anesthesia was achieved over the right wrist. Using a micropuncture kit and a modified Seldinger technique access to the right radial artery was obtained. A 6-Icelandic glide sheath was inserted without difficulty. Bilateral selective coronary angiography was performed using a 6-Icelandic TIG catheter. After reviewing the images, it was elected to proceed with an interventional procedure. A 6-Icelandic XB3.0 guide catheter was advanced in over a J-wire and coaxially engaged into the left main ostium. A 0.014 Runthrough NS wire was advanced through the catheter across the suspect stenosis and positioned distally. Balloon angioplasty using a 3.0 x 15 mm noncompliant balloon revealed a persistent waist due to concentric heavy calcification. At this juncture it was elected to proceed with intravascular lithotripsy. The noncompliant balloon was removed. A 3.5 x 12 mm shockwave balloon was advanced in and intravascular lithotripsy performed in multiple runs. Repeat imaging showed an improved result. The residual stenosis was treated using a 3.5 x 24 mm Synergy drug-eluting stent. Postdilation was performed using a 4.0 x 15 mm noncompliant balloon. Repeat imaging showed an optimal result. The wire was removed. Final images showed JESSE-3 flow with no dissection, thrombus, or distal wire trauma. At this point, it was elected to conclude the procedure. All catheters were removed. The radial sheath was removed with application of a TR band per protocol to achieve optimal hemostasis. Overall, the patient tolerated the procedure well. There were no overt complications. He was to be transferred to the holding area in stable condition. FINDINGS: Hemodynamics. AO 139/88. LEFT VENTRICULOGRAPHY: This was not performed. Ejection fraction is normal by noninvasive imaging. CORONARY ARTERIES: Left main coronary artery: This arises from the left coronary cusp. It bifurcates into the left anterior descending and left circumflex coronary artery and shows mild plaque. Left anterior descending coronary artery: This shows a 30% ulcerated plaque proximally, baseline imaging shows an 80% concentric heavily calcific stenosis in the midportion of the vessel just distal to a small caliber 2nd diagonal. This was reduced to 0% by intravascular lithotripsy using the SHOCKWAVE balloon and placement of a 3.5 x 24 mm Synergy drug-eluting stent with postdilation as described above. The distal vessel shows diffuse caliber reduction and luminal irregularities. Final images showed JESSE-3 flow with no dissection, thrombus, or distal wire trauma. Left circumflex coronary artery: This is a codominant vessel giving rise to posterolateral branches. A large branching first obtuse marginal shows an ostial 50% and distal 60% stenosis, a small second obtuse marginal shows 80% stenosis and is less than 2 mm in (more content not included)... Normal [facility] CORONAVIRUS 2019 BY PCRon CORONAVIRUS 2019,PCR DETECTED Abnormal Not Detected [facility] ([place], [place]) Comment on above: Order Comment: COVID CALLED TO RICHARD , 07/21/2020 16:56 Result Comment: . This assay is designed to detect the N, ORF1ab and/or S genes of SARS-CoV-2 via nucleic acid amplification. A Negative (NOT DETECTED) result does not preclude 2019-nCoV infection since the adequacy of sample collection and/or low viral burden may result in presence of viral nucleic acids below the clinical sensitivity of this test method. Negative (NOT DETECTED) result should not be used as the sole basis for treatment or other patient management decisions. Rather negative results should be combined with clinical observations, patient history, and epidemiological information to make patient management decisions. Fact sheet for providers: https://www.fda.gov/media/027256/download Fact sheet for patients: https://www.fda.gov/media/380754/download This test has received FDA Emergency Use Authorization (EUA) and has been verified by [facility] ([facility]). This test is only authorized for the duration of time that circumstances exist to justify the authorization of the emergency use of in vitro diagnostic tests for the detection of SARS-CoV-2 virus and/or diagnosis of COVID-19 infection under section 564(b)(1) of the Act, 21 U.S.C. 360bbb-3(b)(1), unless the authorization is terminated or revoked sooner. [facility] is certified under CLIA-88 as qualified to perform high complexity testing. Testing is performed in the [facility] laboratories located at [address] [place] [address]. COVID CALLED TO RICHARD , 07/21/2020 16:56 Performed By: #### C OV19 #### [address] [place] [address] EMPLOYED IN HEALTHCARE? Unknown Normal [facility] Comment on above: Order Comment: COVID CALLED TO RICHARD , 07/21/2020 16:56 Performed By: #### C OV19 #### [address] [address] [address] [facility] [address] FIRST COVID NASAL SWAB TEST? Unknown Normal [facility] ([place], [place]) Comment on above: Order Comment: COVID CALLED TO RICHARD , 07/21/2020 16:56 Performed By: #### C OV19 #### [facility] [id number] [place] [address]. [place] [address] HOSPITALIZED (OR PLANNED TO BE ADMITTED)? Unknown Normal [facility] ([place], [place]) Comment on above: Order Comment: COVID CALLED TO RICHARD , 07/21/2020 16:56 Performed By: #### C OV19 #### [facility] [address] [facility] [address] ICU? Unknown Normal [facility] ([place], [place]) Comment on above: Order Comment: COVID CALLED TO RICHARD , 07/21/2020 16:56 Performed By: #### C OV19 #### [facility] [address] [facility] [address] RESIDENT IN CONGREGATE CARE SETTING? Unknown Normal [facility] ([place], [place]) Comment on above: Order Comment: COVID CALLED TO RICHARD , 07/21/2020 16:56 Performed By: #### C OV19 #### [facility] [address] [place] [address] SYMPTOMATIC DEFINED BY CDC? Unknown Normal [facility] ([place], [place]) Comment on above: Order Comment: COVID CALLED TO RICHARD , 07/21/2020 16:56 Performed By: #### C OV19 #### [facility] [address] [place] [address] Covid 19 Resultson 0 Covid 19 Results Adult POSITIVE COVID-19 Test Talking Points Your local Health Department may be in contact, as they are tracking all POSITIVE patients. Limit your contact with others (HOME ISOLATION). You should be home quarantined unless your local public health department tells you otherwise. If you do not hear from the public health department, you should remain in quarantine at home until it has been at least 10 days since symptoms started AND no fever for at least 24 hours without fever reducing medicine AND your symptoms are improving. If you are a employee, Employee Health will contact you for return to work instructions. As much as possible, stay in a specific room and away from other people in your home. Also, you should use a separate bathroom if possible. People who do not have a need to be in your home should not visit. Try to stay in places in the home that have good airflow. Allow getting fresh air when possible. It is very important to cover their mouth and nose with a tissue when coughing or sneezing. After coughing or sneezing or cleaning up used tissues, immediately wash your hands with soap and water for at least 20 seconds. If soap and water are not available, clean hands with an alcohol-based hand english composition teacher that contains at least 60% alcohol. Remember to clean your hands often. Avoid sharing personal household items such as dishes, drinking glasses, cups, eating utensils, towels, or bedding with other people or pets in your home. After you use these items, they should be washed with soap and water. Clean all high-touch surfaces (tabletops, doorknobs, bathroom fixtures, toilets, phones, keyboards, tablets, and bedside tables) every day with antibacterial cleaning solutions such as Lysol wipes, bleach, cleansers, etc. Immediately clean any surfaces that may have your blood, poop, or body fluids like tears, drool, urine, sweat, and mucous on them. Use antibacterial cleaning solutions such as Lysol wipes, bleach, cleansers, etc. Wash laundry thoroughly. Immediately remove and wash clothes or bedding that have blood, poop, or body fluids on them. Read and follow directions on labels of laundry detergent and/or clothing items. If possible, mask whenever you leave your room. Recommendations for those caring for someone with COVID-19 Wash your hands frequently with soap and water for 20 seconds or use an alcohol-based hand english composition teacher that contains at least 60% alcohol. Avoid touching your face Do not permit visitors who do not have an essential need to be in your home. Mask when caring for these individuals. Household members caring for a COVID-19 positive patient should consider self-quarantine for 14 days. If symptoms develop, testing for COVID-19 should be considered.. Revised 7.28.20 Electronic Signatures: [email or web address], [employer] (ADMIN) (Signature pending) Authored Last Updated: 21-Jul-2020 16:32 by PSCDenis, [employer]MS[employer] (ADMIN) Normal [facility] ([place], [place]) CORONAVIRUS 2019 BY PCRon Lab Specimen Source Nasal, Nasopharyngeal Normal [facility] ([place], [place]) Comment on above: Order Comment: COVID CALLED TO RICHARD 07/21/2020 16:56 Performed By: #### C OV19 #### [facility] [address] [place] [address] Vital Signs Date Time Vital Sign Value Performing Clinician Facility 09-11-2023 15:00-0500 Body height 172.72 cm Enoch Robles Other [facility] Other 09-11-2023 15:00-0500 Body mass index (BMI) [Ratio] 32.38 kg/m2 Enoch Robles Other [facility] Other 09-11-2023 15:00-0500 Body weight 96.62 kg Enoch Robles Other [facility] Other 08-27-2023 13:07-0500 Body height 172.7 cm [facility] 2 [facility] 08-27-2023 13:07-0500 Body mass index (BMI) [Ratio] 28.13 kg/m2 [facility] 2 [facility] [employer] [facility] 08-27-2023 13:07-0500 Body weight 83.92 kg [facility] 2 [facility] [employer] [facility] 04-23-2023 10:45-0400 Body height 172.72 cm Enoch Robles Other [facility] Other 04-23-2023 10:45-0400 Body mass index (BMI) [Ratio] 32.37 kg/m2 Enoch Deyvi Other [facility] Other 04-23-2023 10:45-0400 Body weight 96.57 kg Enoch Robles Other [facility] Other 04-23-2023 10:45-0400 Diastolic blood pressure 84 mm[Hg] Enoch Robles Other [facility] Other 04-23-2023 10:45-0400 Systolic blood pressure 184 mm[Hg] Enoch Deyvi Other [facility] Other 07-09-2022 15:30-0500 Body height 172.72 cm Enoch Robles Other [facility] Other 07-09-2022 15:30-0500 Body mass index (BMI) [Ratio] 27.52 kg/m2 Enoch Robles Other [facility] Other 07-09-2022 15:30-0500 Body weight 82.1 kg Enoch Robles Other [facility] Other 05-27-2022 15:44-0400 Body weight 0 kg MD Perico Balderas Work Phone: [facility] 04-01-2022 15:06-0400 Blood Pressure Location Javid NILL [facility] [place] 04-01-2022 15:06-0400 Diastolic blood pressure 74 mm[Hg] Javid NILL [facility] [place] 04-01-2022 15:06-0400 Heart rate 58 /min Javid NILL [facility] 04-01-2022 15:06-0400 Respiratory rate 16 /min Javid NILL [facility] 04-01-2022 15:06-0400 Systolic blood pressure 124 mm[Hg] Javid NILL [facility] Encounters Encounter Date Encounter Type Care Provider Facility Start: 09-16-2023 End: 09-16-2023 Evaluation and management of inpatient ZOIEYi BARNHART [facility] Start: 09-16-2023 End: 09-16-2023 Evaluation and management of inpatient LETHAASAF MONTOYA [facility] Start: 09-11-2023 End: 09-11-2023 ambulatory Enoch Robles Other [facility] Other Start: 09-11-2023 Office outpatient vi sit 25 minutes Enoch Robles [facility] Start: 08-27-2023 End: 08-28-2023 ambulatory CUBA TOMAS [facility] Start: 08-27-2023 Encounter for other preprocedural examination LETHA [facility] Start: 08-27-2023 End: 08-27-2023 Patient encounter procedure [facility] Pre-Admission Testing 2 [facility] - Pre Admit Comment on above: Preop examination (P rimary Dx); Coronary artery disease, unspecified vessel or lesion type, unspecified whether angina present, unspecified whether [place] or transplanted heart Start: 08-27-2023 End: 08-27-2023 Preprocedural examination done Pm 2 [facility] Start: 07-02-2023 End: 07-02-2023 [facility] Start: 05-19-2023 End: 05-19-2023 ambulatory Enoch Robles Other [facility] Other Start: 05-19-2023 Telephone encounter Enoch velazquez [facility] Start: 04-24-2023 End: 04-24-2023 ambulatory Enoch Robles Other [facility] Other Start: 04-24-2023 Telephone encounter Enoch velazquez [facility] Start: 04-23-2023 Office outpatient vi sit 25 minutes Enoch Robles [facility] Start: 04-23-2023 Telephone encounter Enoch velazquez [facility] Start: 04-23-2023 End: 04-23-2023 ambulatory Enoch Du Deyvi [facility] Other Start: 04-23-2023 End: 04-23-2023 Patient encounter procedure MD Perico Balderas Work Phone: [facility] [place] Work Phone: Start: 02-18-2023 End: 02-18-2023 ambulatory [facility] Start: 12-24-2022 End: 12-24-2022 [facility] Start: 11-21-2022 ambulatory [facility] Start: 11-21-2022 ambulatory [facility] Start: 11-21-2022 End: 11-21-2022 ambulatory [facility] Start: 11-13-2022 End: 11-14-[address] [facility] Start: 11-08-2022 End: 11-08-[address] [facility] Start: 11-04-2022 [facility] Start: 11-04-2022 [facility]cedural laboratory [facility] Start: 11-01-2022 End: 11-02-2022 ambulatory DARREN ELMORE Facility:[facility] Start: 11-01-2022 End: 11-02-2022 Encounter for preprocedural laboratory examination DARREN ELMORE Facility:[facility] Start: 10-24-2022 Encounter [facility] Start: 10-21-2022 End: 10-23-[address] PERICO BALDERAS . Facility:[facility] Start: 10-19-2022 End: 10-20-2022 ambulatory CL POTTS Facility:[facility] Start: 10-19-2022 End: 10-20-2022 Encounter for other preprocedural examination CL POTTS Facility:[facility] Start: 09-24-2022 End: 09-24-2022 [facility] Start: 09-05-2022 End: 09-05-2022 ambulatory Enoch Robles Other [facility] Other Start: 09-05-2022 Telephone encounter Enoch velazquez [facility] Start: 07-26-2022 End: 07-27-[address] Michael ROBLES Facility:[facility] Start: 07-24-2022 End: 07-24-2022 ambulatory Enoch Robles Other [facility] Other Start: 07-24-2022 Telephone encounter Enoch velazquez [facility] Start: 07-11-2022 End: 07-12-[address] PERICO BALDERAS . Facility:[facility] Start: 07-09-2022 End: 07-09-2022 ambulatory Enoch Robles Other [facility] Other Start: 07-09-2022 Office outpatient ne w 45 minutes Enoch Robles [facility] Start: 07-04-2022 End: 07-05-[address] PERICO BALDERAS . Facility:[facility] Start: 06-22-2022 End: 06-23-[address] PERICO BALDERAS . Facility:[facility] Start: 06-10-2022 End: 06-10-2022 ambulatory Perico Balderas Facility:[facility] Start: 06-10-2022 End: 06-10-2022 ambulatory MD Perico Balderas Work Phone: [facility] Work Phone: Start: 06-10-2022 End: 06-10-2022 Patient encounter procedure MD Perico Balderas Work Phone: [facility] Start: 05-27-2022 End: 05-27-2022 ambulatory Enoch Robles Other [facility] [employer] Other Start: 05-27-2022 Telephone encounter Enoch Lizama [facility] Start: 05-08-2022 End: 05-09-2022 ambulatory Javid WILSON Facility:[id number] Start: 05-04-2022 End: 05-05-[address] PERICO BALDERAS . Facility:[facility] Start: 04-13-2022 End: 04-14-[address] PERICO BALDERAS . Facility:[facility] Start: 04-01-2022 End: 04-01-2022 Patient encounter procedure Javid WILSON [facility] [place] Start: 04-01-2022 End: 04-02-2022 ambulatory Javid WILSON Facility:[facility] Start: 03-13-2022 End: 03-14-[address] PERICO BALDERAS . Facility:[facility] Start: 03-08-2022 End: 03-09-[address] PERICO BALDERAS . Facility: Start: 01-26-2021 End: 01-27-2021 ambulatory PHYSICIAN UNKNOWN Facility:[facility] Procedures Date Procedure Procedure Detail Performing Clinician Start: 06-10-2022 Capsule endoscopy MD Hopper Work Phone: Start: 12-30-2020 Angioplasty of blood vessel Javid NILL Start: 11-30-2020 Insertion of stent i nto aorta Javid NILL Arthroplasty of knee Javid NILL Arthroscopy of knee Javid NILL Cardiac catheterization Parmjit elkins NILL Excision of cervical intervertebral disc Javid NILL Comment on above: C6-C7 Tonsillectomy Javid NILL Vasectomy Javid NILL Plan of Treatment Date Care Activity Detail Author Start: 08-27-2024 Adult BMI Screening Adult BMI Screen ing [facility] Start: 08-27-2024 Tobacco Screening Tobacco Screening [facility] Start: 09-30-2023 End: 09-30-2023 Admission to same day surgery center 09/30/2023 3:00 PM EST - 09/30/2023 3:45 PM EST Surgery [facility] - Surgery [address] [place] [address] Letha Montoya MD [address] [place] [id number] EXTRACTION CATARACT INTRAOCULAR LENS [83565 (CPT )] [facility] Comment on above: EXTRACTION CATARACT INTRAOCULAR LENS [62130 (CPT )] Start: 09-30-2023 Subsequent hospital visit by physician 09/30/2023 3:00 PM EST Hospital Encounter [facility] Surgery [address] [place] [address] Letha Montoya MD [address] [place] [address] [id number] [facility] Start: 09-30-2023 End: 09-30-2023 Xcapsl ctrc rmvl insj io lens prosth w/o ecp EXTRACTION CATARACT INTRAOCULAR LENS cataract left eye 09/30/2023 3:00 PM EST [facility] Start: 09-29-2023 End: 09-29-2023 ambulatory 09/29/2023 4:00 PM EST Support Visit [facility] Admit [address] [place] [address] [facility] - Pre Admit Start: 09-16-2023 End: 09-16-2023 Admission to same day surgery center 09/16/2023 3:00 PM EST - 09/16/2023 3:45 PM EST Surgery [facility] Surgery [address] [place] [id number] Letha Montoya MD [address] [place] [address] [id number] EXTRACTION CATARACT INTRAOCULAR LENS [69589 (CPT )] [facility] Comment on above: EXTRACTION CATARACT INTRAOCULAR LENS [50879 (CPT )] Start: 09-16-2023 Subsequent hospital visit by physician 09/16/2023 3:00 PM EST Hospital Encounter [facility] Surgery [address] [place] [id number] Letha Montoya MD [address] [place] [id number] [facility] Start: 09-16-2023 End: 09-16-2023 Xcapsl ctrc rmvl insj io lens prosth w/o ecp EXTRACTION CATARACT INTRAOCULAR LENS cataract right eye 09/16/2023 3:00 PM EST [facility] Start: 05-02-2023 COVID-19 Vaccine ( season) COVID-19 Vaccine ( season) [facility] [employer] [facility] Start: 05-02-2023 Influenza vaccination Influenza Vacc ine [facility] Start: 06-10-2022 [facility] Start: 2009 Administration of varicella zoster vaccine Zoster (Shingles) Vaccine (1 of 2) [facility] Start: 1978 DTaP,Tdap and Td Vac cines (1 - Tdap) DTaP,Tdap and Td Vaccines (1 - Tdap) [facility] Start: 1977 Adult BMI Follow Up Plan Adult BMI Follow Up Plan [facility] Start: 1971 [facility] Payers Date Payer Category Payer Self-pay [id number] 2019 Unknown [employer] M [place] [employer] [id number] 2019-Present [phone] [address] [place] [address] [id number] 1959 Self-pay [id number] 1959 Unknown [id number] 1959 Unknown [id number] 2.16.840.1.343371.3.579.2.647 1959 Unknown [id number] 2.16.840.1.633320.3.579.2.727 1959 Unknown [id number] 2.16.840.1.721820.3.579.2.727 1959 Unknown [id number] 2.16.840.1.634933.3.579.2.593 1959 Unknown [id number] 2.16.840.1.349204.3.579.2.593 1959 Unknown [id number] 2.16.840.1.739661.3.579.2.593 1959 Unknown [id number] 2.16.840.1.831465.3.579.2.593 1959 Unknown [id number] 2.16.840.1.434450.3.579.2.593 1959 Unknown [id number] 2.16.840.1.389489.3.579.2.593 1959 Unknown [id number] 2.16.840.1.724534.3.579.2.593 1959 Unknown [id number] 2.16.840.1.805587.3.579.2.593 1959 Unknown [id number] 2.16.840.1.638723.3.579.2.593 1959 Unknown [id number] 2.16.840.1.448241.3.579.2.593 1959 Unknown [id number] 2.16.840.1.191876.3.579.2.593 1959 Unknown [id number] 2.16.840.1.631403.3.579.2.593 1959 Unknown [id number] 2.16.840.1.429569.3.579.2.593 1959 Unknown [id number] 2.16.840.1.229194.3.579.2.593 1959 Unknown [id number] 2.16.840.1.474986.3.579.2.593 1959 Unknown [id number] 2.16.840.1.030802.3.579.2.1286 1959 Unknown [id number] 2.16.840.1.851137.3.579.2.1286 1959 Unknown [id number] 2.16.840.1.452424.3.579.2.128 1959 Unknown [id number] 2.16.840.1.136647.3.579.2.1286 1959 Unknown [id number] 2.16.840.1.909308.3.579.2.1286 Unknown [id number] 2.16.840.1.783070.3.579.2.531 Unknown [id number] 2.16.840.1.506742.3.579.2.531 Social History Date Type Detail Facility Start: 04-01-2022 End: 08-27-2023 Tobacco smoking status Never smoked tobacco (finding) [facility] Tobacco smoking status Never [facility] Start: 09-26-2020 End: 08-27-2023 Sex Assigned At Male [facility] Start: 1960 Sex Assigned At Male [facility] Start: 08-27-2023 Tobacco use and exposure Smokeless tobacco non-user [facility] Start: 08-27-2023 Alcohol intake Ex-drinker (finding) [facility] Start: 09-26-2020 End: 08-27-2023 History of Social function [facility] Start: 08-27-2023 Alcohol Comment very rare [facility] Start: 1960 Sex Assigned At Not on file P [facility] Medical Equipment Procedure Code Equipment Code Equipment Origin al Text Equipment Identifier Dates Capsule endoscopy, for patency of lumen evaluation Video capsule endoscopy system [id number] [facility] Start: 06-10-2022 Goals Date Patient Goal Desired Activity /State Functional Status Date Assessment Result Facility 04-01-2022 Functional Status N/A [facility] Clinical Notes 02-12-2021 to 09-11-2023 Note Date & Type Note Facility 09-11-2023 Evaluation note Encounter Date Diagnosis Assessment Notes Sep, Crohns disease (ICD-10 - K50.90) Patient reports that he is not eating well Patient reports that he is having trouble getting his medication, his insurance will no longer be covering HUMARA, and he may need to change to a biosimilar Patient has many comorbidities Patient reports that he has had some improvement but is losing weight Patient is advised to have labs order today Patient did have some recent labs done at [facility] will obtain these reports Patient is to start Amjevita RTO 6 weeks [facility] Other 12-27-2023 Instructions* Patient Instructions* Supriya Morel RN - 08/27/2023 12:45 PM EST Preoperative Education Checklist- General Surgery date: 09/16/23 Surgery time: 3:00 p.m. Arrival time: 1:00 p.m. 1. Bring a photo ID and your insurance card with you the day of surgery. You will check in at the main [facility] registration desk as soon as you walk in the entrance. 2. If you have a Living Will/Durable Power of Pricing Intern for Health Care that is not on file here, please bring a copy the day of surgery. 3. Please wash your face with baby shampoo prior to procedure as instructed by your physician. 4. NO powder, lotion, perfume/cologne, aftershave, make-up, nail pakistani on at least one finger, deodorant, or hair products after you have bathed. 5. Nothing to eat or drink (not even water, gum, mints, or hard candy!) AFTER midnight prior to your surgery. 6. Take only medications that you are instructed to on the morning of surgery with a TINY SIP OF WATER. 7. If you have an inhaler, use it routinely. 8. Choose a responsible adult that will be able to drive you home when you are discharged from yourhospital stay for your surgery. You must NOT drive any vehicle or operate any machinery for 24 hours after surgery. 9. When you dress for your appointment, please wear comfortable clothing. 10. Do NOT wear jewelry, watches, or any piercings or metal for surgery. 11. Do NOT wear contact lenses for surgery- glasses are okay if needed. 12. The anesthesiologist will talk with you the day of surgery and will ask you to sign a Consent Form. 13. Refrain from smoking or any type of tobacco use for at least 8 hours or marijuana for 24 hours prior to arrival for your surgery. 14. Notify your surgeon if you develop any illness before your surgery. 15. If you have any questions prior to surgery, please call the Preadmission Testing office at [phone], Mon.-Fri. 7 a.m.-3 p.m. Leave a voicemail if needed. Pre-Surgery Instructions: Medication Instructions acetaminophen (TYLENOL) 325 mg tablet Stop taking 0 days prior to procedure apixaban (ELIQUIS) 5 mg tablet Check with prescribing doctor for instructions atorvastatin (LIPITOR) 80 mg tablet Stop taking 0 days prior to procedure lisinopriL (PRINIVIL,ZESTRIL) 20 mg tablet Take morning of procedure metoprolol tartrate (LOPRESSOR) 100 mg tablet Take morning of procedure pantoprazole (PROTONIX) 40 mg EC tablet Take morning of procedure spironolactone (ALDACTONE) 25 mg tablet Stop taking 0 days prior to procedure documented in this encounterUniversity [facility]12-27-[facility]23 Miscellaneous Notes* Perioperative Nursing Note - Supriya Morel RN - 08/27/2023 12:45 PM EST Preoperative Education Checklist- General Surgery date: 09/16/23 Surgery time: 3:00 p.m. Arrival time: 1:00 p.m. 1. Bring a photo ID and your insurance card with you the day of surgery. You will check in at the main lobby registration desk as soon as you walk in the entrance. 2. If you have a Living Will/Durable Power of Pricing Intern for Health Care that is not on file here, please bring a copy the day of surgery. 3. Please wash your face with baby shampoo prior to procedure as instructed by your physician. 4. NO powder, lotion, perfume/cologne, aftershave, make-up, nail pakistani on at least one finger, deodorant, or hair products after you have bathed. 5. Nothing to eat or drink (not even water, gum, mints, or hard candy!) AFTER midnight prior to your surgery. 6. Take only medications that you are instructed to on the morning of surgery with a TINY SIP OF WATER. 7. If you have an inhaler, use it routinely. 8. Choose a responsible adult that will be able to drive you home when you are discharged from yourhospital stay for your surgery. You must NOT drive any vehicle or operate any machinery for 24 hours after surgery. 9. When you dress for your appointment, please wear comfortable clothing. 10. Do NOT wear jewelry, watches, or any piercings or metal for surgery. 11. Do NOT wear contact lenses for surgery- glasses are okay if needed. 12. The anesthesiologist will talk with you the day of surgery and will ask you to sign a Consent Form. 13. Refrain from smoking or any type of tobacco use for at least 8 hours or marijuana for 24 hours prior to arrival for your surgery. 14. Notify your surgeon if you develop any illness before your surgery. 15. If you have any questions prior to surgery, please call the Preadmission Testing office at [phone], Mon.-Fri. 7 a.m.-3 p.m. Leave a voicemail if needed. Pre-Surgery Instructions: Medication Instructions acetaminophen (TYLENOL) 325 mg tablet Stop taking 0 days prior to procedure apixaban (ELIQUIS) 5 mg tablet Check with prescribing doctor for instructions atorvastatin (LIPITOR) 80 mg tablet Stop taking 0 days prior to procedure lisinopriL (PRINIVIL,ZESTRIL) 20 mg tablet Take morning of procedure metoprolol tartrate (LOPRESSOR) 100 mg tablet Take morning of procedure pantoprazole (PROTONIX) 40 mg EC tablet Take morning of procedure spironolactone (ALDACTONE) 25 mg tablet Stop taking 0 days prior to procedure * Perioperative Nursing Note - Supriya Morel RN - 08/27/2023 12:45 PM EST Surgical instructions reviewed. Patient verbalized understanding. documented in this encounterUniversity [facility]12-27-2023 Nurse Note* Perioperative Nursing Note - Supriya Morel RN - 08/27/2023 12:45 PM EST Preoperative Education Checklist- General Surgery date: 09/16/23 Surgery time: 3:00 p.m. Arrival time: 1:00 p.m. 1. Bring a photo ID and your insurance card with you the day of surgery. You will check in at the main lobby registration desk as soon as you walk in the entrance. 2. If you have a Living Will/Durable Power of Pricing Intern for Health Care that is not on file here, please bring a copy the day of surgery. 3. Please wash your face with baby shampoo prior to procedure as instructed by your physician. 4. NO powder, lotion, perfume/cologne, aftershave, make-up, nail pakistani on at least one finger, deodorant, or hair products after you have bathed. 5. Nothing to eat or drink (not even water, gum, mints, or hard candy!) AFTER midnight prior to your surgery. 6. Take only medications that you are instructed to on the morning of surgery with a TINY SIP OF WATER. 7. If you have an inhaler, use it routinely. 8. Choose a responsible adult that will be able to drive you home when you are discharged from yourhospital stay for your surgery. You must NOT drive any vehicle or operate any machinery for 24 hours after surgery. 9. When you dress for your appointment, please wear comfortable clothing. 10. Do NOT wear jewelry, watches, or any piercings or metal for surgery. 11. Do NOT wear contact lenses for surgery- glasses are okay if needed. 12. The anesthesiologist will talk with you the day of surgery and will ask you to sign a Consent Form. 13. Refrain from smoking or any type of tobacco use for at least 8 hours or marijuana for 24 hours prior to arrival for your surgery. 14. Notify your surgeon if you develop any illness before your surgery. 15. If you have any questions prior to surgery, please call the Preadmission Testing office at [phone], Mon.-Fri. 7 a.m.-3 p.m. Leave a voicemail if needed. Pre-Surgery Instructions: Medication Instructions acetaminophen (TYLENOL) 325 mg tablet Stop taking 0 days prior to procedure apixaban (ELIQUIS) 5 mg tablet Check with prescribing doctor for instructions atorvastatin (LIPITOR) 80 mg tablet Stop taking 0 days prior to procedure lisinopriL (PRINIVIL,ZESTRIL) 20 mg tablet Take morning of procedure metoprolol tartrate (LOPRESSOR) 100 mg tablet Take morning of procedure pantoprazole (PROTONIX) 40 mg EC tablet Take morning of procedure spironolactone (ALDACTONE) 25 mg tablet Stop taking 0 days prior to procedure [facility]12-27-2023 Nurse Note* Perioperative Nursing Note - Supriya Morel RN - 08/27/2023 12:45 PM EST Surgical instructions reviewed. Patient verbalized understanding. [facility] [id number] [facility]Cardiovascular Medicine [facility] SUB[facility] No chief complaint on file. Ayo Alicia is a 63 y.o. male here for follow-up. HPI PMHx: -CAD - ERIC to LAD 01/26/21 (cath also noted severe prox and mid vessel to a short PDA and moderate dz to LCx) -PAF/flutter s/p ablation -HTN -HLD -Aortic, mitral, tricuspid valve regurg 07/02/2023 He has been dealing with issues with his crohns. He was on steroids for a period of time. He developed significant weight gain and swelling. He was started on spironolactone for edema secondary to edema. Edema is now resolved. His PCP ordered a stress test for his on going fatigue and vague chest tightness symptoms. He was found to have anemia last month and he underwent iron transfusions. He notes that he felt a little better when he had these. He currently denies c/o CP, dyspnea, palpitations, dizziness. Patient Active Problem List Diagnosis Heart valve disease Hypertension Atrial fibrillation (CMS/HCC) Coronary artery disease Hyperlipidemia Chest pain Cholelithiasis Disorder of intervertebral disc of cervical spine Erectile dysfunction Fatigue Iron deficiency anemia residential current use of anticoagulant therapy Aortic valve regurgitation Nausea Osteoarthritis Paroxysmal atrial fibrillation with rapid ventricular response (CMS/HCC) Periumbilical abdominal pain Peyronie's disease Right lower quadrant abdominal pain Coronary atherosclerosis Right upper quadrant abdominal pain Essential hypertension Nonrheumatic mitral valve regurgitation Nonrheumatic tricuspid valve regurgitation Antiplatelet or antithrombotic long-term use Past Medical History: Diagnosis Date Atrial fibrillation (CMS/HCC) Coronary artery disease GERD (gastroesophageal reflux disease) Heart valve disease Hyperlipidemia Hypertension Obesity (BMI 30.0-34.9) Family History Problem Relation Name Age of Onset Atrial fibrillation Mother Other (pulmonary hypertension) Mother Other (heart valve disease) Mother Coronary artery disease Father Social History Tobacco Use Smoking status: Never Smokeless tobacco: Never Substance Use Topics Alcohol use: Yes Comment: occasional No Known Allergies ROS Constitutional: Positive for malaise/fatigue. Cardiovascular: Positive for chest pain, dyspnea on exertion and palpitations. Musculoskeletal: Positive for arthritis, back pain and joint pain. All other systems reviewed and are negative. OBJECTIVE Visit Vitals BP (!) 147/95 (BP Location: Left arm, Patient Position: Sitting) Pulse 78 Ht 1.727 m (5' 8 ) Wt 87.5 kg (193 lb) SpO2 98% BMI 29.35 kg/m??? Smoking Status Never BSA 2.05 m??? Medications: Current Outpatient Medications: atorvastatin (Lipitor) 80 mg tablet, TAKE 1 TABLET DAILY, Disp: 90 tablet, Rfl: 3 Eliquis 5 mg tablet, TAKE 1 TABLET IN THE MORNING AND AT BEDTIME, Disp: 180 tablet, Rfl: 3 lisinopril 10 mg tablet, Take 1 tablet (10 mg) by mouth in the morning., Disp: 90 tablet, Rfl: 3 metoprolol tartrate (Lopressor) 100 mg tablet, TAKE 1 TABLET IN THE MORNING AND AT BEDTIME, Disp: 180 tablet, Rfl: 3 pantoprazole (ProtoNix) 40 mg EC tablet, Take 1 tablet (40 mg) by mouth once daily as directed., Disp: 90 tablet, Rfl: 3 spironolactone (Aldactone) 25 mg tablet, Take by mouth once daily as directed., Disp: , Rfl: aspirin 81 mg EC tablet, Take 81 mg by mouth in the morning., Disp: , Rfl: budesonide EC (Entocort EC) 3 mg 24 hr capsule, Take 9 mg by mouth in the morning., Disp: , Rfl: Physical Exam Constitutional: Appearance: Normal appearance. He is normal weight. HENT: Head: Normocephalic and atraumatic. Right Ear: External ear normal. Left Ear: External ear normal. Eyes: Extraocular Movements: Extraocular movements intact. Pupils: Pupils are equal, round, and reactive to light. Neck: Vascular: No carotid bruit. Comments: No JVD Cardiovascular: Rate and Rhythm: Normal rate and regular rhythm. Pulses: Normal pulses. Heart sounds: Normal heart sounds. Pulmonary: Effort: Pulmonary effort is normal. Breath sounds: Normal breath sounds. Abdominal: General: Bowel sounds are normal. Palpations: Abdomen is soft. Musculoskeletal: General: Normal range of motion. Cervical back: Neck supple. Right lower leg: No edema. Left lower leg: No edema. Skin: General: Skin is warm and dry. Neurological: General: No focal deficit present. Mental Status: He is alert and oriented to person, place, and time. Psychiatric: Mood and Affect: Mood normal. Behavior: Behavior normal. Thought Content: Thought content normal. Judgment: Judgment normal. Labs/Testing/Procedures: 05/27/23 Hgb 7.8, plt 340 Cr 1.21, BUN 12, K 4.3, Na 140, eGFR >60, AST 13, ALT 16 HgbA1c 5.3 TC 32, trig 109, HDL 29, LDL 32 TSH 1.428 NM exercise stress test 06/17/2023 Small fixed defect inferior wall, RCA distribution. No reversible ische (more content not included)...[facility]11-01-2023 Note Patient here for abnormal stress test. It was done 2 weeks ago at [facility] and was ordered by Dr. Balderas. Says stress test was ordered because he's been very tired, with SOB and chest tightness. Has been feeling palpitations the past week or so. Sometimes forgets to take metoprolol and Eliquis in the evenings. Had labs in May 2023. He is taking spironolactone now. He says this was prescribed temporarily by his GI doctor to get rid of the swelling from a steroid. Review of Systems Constitutional: Positive for malaise/fatigue. Cardiovascular: Positive for chest pain, dyspnea on exertion and leg swelling (end of day). Musculoskeletal: Positive for arthritis, back pain and joint pain. Neurological: Positive for dizziness (occasional), headaches, light-headedness (occasional) and weakness. All other systems reviewed and are negative.[facility] 05-19-2023 Evaluation note* Encounter Date Diagnosis Assessment Notes Treatment Notes Treatment Clinical Notes May, Crohns disease (ICD-10 - K50.90) [facility] Other 08-24-2023 Evaluation note* Encounter Date Diagnosis Assessment Notes Treatment Notes Treatment Clinical Notes Apr, Iron deficiency anemia (ICD-10 - D50.9) [facility] Other 08-23-2023 Evaluation note* Encounter Date Diagnosis Assessment Notes Treatment Notes Treatment Clinical Notes Apr, Crohns disease (ICD-10 - K50.90) Pt is taking budesonide. Pt advised to start humira and stop budesonide. Labs ordered Pt RTO in 6 wks [facility] Other 06-20-2023 NotePatient is here today for a 2 month follow up Review of Systems Constitutional: Negative for malaise/fatigue. Cardiovascular: Positive for dyspnea on exertion (may be more related to his Chrohn's disease) and leg swelling. Negative for chest pain, cyanosis, irregular heartbeat, near-syncope, palpitations and syncope. Musculoskeletal: Positive for arthritis, back pain and joint pain. Neurological: Positive for dizziness (occasional), headaches (left-sided headache for last week or so -- doesn't seem to want to go away), light-headedness (occasional) and weakness (still has moments, but is getting better). Negative for excessive daytime sleepiness. All other systems reviewed and are negative. [facility] Consult Note Reason for visit: 1 month follow up s/p AFIB ablation HPI: patient here 1 month follow up s/p afib ablation on 11/21/22. States he feels much better than previous and has noticed a difference in fatigue/SOB at work. His blood pressure readings are in the 160s to 170s range. he is on metoprolol 100 mg twice daily. He denies chest pain, PARIS, LE edema, orthopnea EP Study 11/21/22 LA baseline (mmHg) 1st and 2nd 10/4 (HR 85bpm), 14/6 LA 600ms pacing (mmHg) 8/4 (prox CS), 8/4 (distal CS), 9/4 (HRA) LA 400ms pacing (mmHg) 12/4 AHms 74, 66 HVms 39, 46 VERPms 600/310, VA condunction+ AV Wenkebach ms 300 AH jump ms NA AVNERP ms Striaght to AERP AERP ms 600/210 POST PROCEDURE DIAGNOSIS 1. Persistent atrial fibrillation s/p PVI (WACA) 2. Atrial flutter s/p CTI ablation, confirmed block. 3. EP study revealing no retrograde accesory pathway. 4. No inducible arrhythmia with Adenosine. 5. Normal LA filling pressures with tachycardia. 6. Normal LA voltage. Prior HPI: Ayo Alicia is a 62 y.o. year old with past medical history of A-fib, CAD s/p LAD ERIC, hypertension, hyperlipidemia, history of mild to moderate MR and AR has been known to have fatigue. He has symptomatic AF with RVR. AF was Dx 2 years as per pt. He has noticed elevated heart rates with accompained chest pressure and Fitbit is reading Hrs in the 140s when he's sleeping or at rest. He was positive for sleep apnea 20 years ago, had uvula surgery for this. He has lots of GI issues and is believed to be Crohsn and on steroids. Tpday he is in SR by pulse check. PMH: Past Medical History: Diagnosis Date Atrial fibrillation (CMS/HCC) Coronary artery disease GERD (gastroesophageal reflux disease) Heart valve disease Hyperlipidemia Hypertension Obesity (BMI 30.0-34.9) PSH: Past Surgical History: Procedure Laterality Date BACK SURGERY TOOK OUT DISC FRAGMENTS CARDIAC CATHETERIZATION N/A 2020 ONE STENT INSERTION IN MAKER ARTERY CERVICAL FUSION PT DOES NOT KNOW LEVEL KNEE ARTHRODESIS Left 9 YRS AGO SEVERAL SCOPES TOTAL KNEE ARTHROPLASTY Right 2020 SH: Social Determinants of Health Tobacco Use: Low Risk Smoking Tobacco Use: Never Smokeless Tobacco Use: Never Passive Exposure: Not on file Alcohol Use: Not on file Financial Resource Strain: Not on file Food Insecurity: Not on file Transportation Needs: Not on file Physical Activity: Not on file Stress: Not on file Social Connections: Not on file Intimate Partner Violence: Not on file Depression: Not on file Housing Stability: Not on file Allergies: No Known Allergies Weight: 94.8kg Vitals: 02/18/23 1110 BP: 176/76 Pulse: SpO2: Meds: Current Outpatient Medications on File Prior to Visit Medication Sig Dispense Refill apixaban (Eliquis) 5 mg tablet Take 1 tablet (5 mg) by mouth in the morning and at bedtime. 180 tablet 3 aspirin 81 mg EC tablet Take 81 mg by mouth in the morning. atorvastatin (Lipitor) 80 mg tablet Take 80 mg by mouth at bedtime. budesonide EC (Entocort EC) 3 mg 24 hr capsule Take 9 mg by mouth in the morning. metoprolol tartrate (Lopressor) 100 mg tablet Take 1 tablet (100 mg) by mouth in the morning and at bedtime. 120 tablet 0 pantoprazole (ProtoNix) 40 mg EC tablet Take 1 tablet (40 mg) by mouth once daily as directed. 90 tablet 3 No current facility-administered medications on file prior to visit. ROS: Constitutional: Positive for malaise/fatigue. Cardiovascular: Positive for chest pain, dyspnea on exertion and palpitations. Musculoskeletal: Positive for arthritis, back pain and joint pain. Neurological: Positive for light-headedness. All other systems reviewed and are negative. Physical Exam: Constitutional General Appearance: well-nourished, well-developed, appears stated age Level of Distress: comfortable Psychiatric Mental Status: alert, normal affect Orientation: oriented to time, place, and person Insight: good judgement Eyes Lids and Conjunctivae: non-injected, no xanthelasma ENMT Ears: no lesions on external ear Nose: no lesions on external nose Oropharynx (more content not included)...[facility] 12-24-2022 NoteUT Cardiology Consult Note Reason for visit: 1 month follow up s/p AFIB ablation HPI: patient here 1 month follow up s/p afib ablation. States he feels much better than previous and has noticed a difference in fatigue/SOB at work. His groin site has healed well without concerns for bleeding or hematoma He denies chest pain, PARIS, LE edema, orthopnea ECG today is SR -- Previous 11/08/22 HPI: Ayo is here for H&P and consent for planned atrial fibrillation ablation. he has had no recent changes in past medical history or medications. he has a past medical history of A-fib, CAD s/p LAD ERIC, hypertension, hyperlipidemia, history of mild to moderate MR and AR . ECG today shows A-fib rate controlled. He was recently admitted to the [facility] for A-fib RVR where he was started on a Cardizem infusion and Lanoxin with an ELIZABETH. His troponins were reported negative. States he has been doing well and has not had any recent episodes that he is aware of similar to when he was admitted. With his echo done while he was there his RVSP was elevated. He denies chest pain, , Shortness of breath, [place], orthopnea. he has been doing well since discharge but can feel his A-fib. ------- HPI: Ayo Alicia is a 62 y.o. year old with past medical history of CAD and AF has been known to have fatigue. He has symptomatic AF with RVR. AF was Dx 2 years as per pt. He has noticed elevated heart rates with accompained chest pressure and Fitbit is reading Hrs in the 140s when he's sleeping or at rest. He was positive for sleep apnea 20 years ago, had uvula surgery for this. He has lots of GI issues and is believed to be Crohsn and on steroids. Tpday he is in SR by pulse check. PMH: Past Medical History: Diagnosis Date Atrial fibrillation (CMS/HCC) Coronary artery disease GERD (gastroesophageal reflux disease) Heart valve disease Hyperlipidemia Hypertension Obesity (BMI 30.0-34.9) PSH: Past Surgical History: Procedure Laterality Date BACK SURGERY TOOK OUT DISC FRAGMENTS CARDIAC CATHETERIZATION N/A 2020 ONE STENT INSERTION IN MAKER ARTERY CERVICAL FUSION PT DOES NOT KNOW LEVEL KNEE ARTHRODESIS Left 9 YRS AGO SEVERAL SCOPES TOTAL KNEE ARTHROPLASTY Right 2020 SH: Social Determinants of Health Tobacco Use: Low Risk Smoking Tobacco Use: Never Smokeless Tobacco Use: Never Passive Exposure: Not on file Alcohol Use: Not on file Financial Resource Strain: Not on file Food Insecurity: Not on file Transportation Needs: Not on file Physical Activity: Not on file Stress: Not on file Social Connections: Not on file Intimate Partner Violence: Not on file Depression: Not on file Housing Stability: Not on file Allergies: No Known Allergies Weight: No weight available There were no vitals filed for this visit. Meds: Current Outpatient Medications on File Prior to Visit Medication Sig Dispense Refill apixaban (Eliquis) 5 mg tablet Take 1 tablet (5 mg) by mouth in the morning and at bedtime. 180 tablet 3 aspirin 81 mg EC tablet Take 81 mg by mouth in the morning. atorvastatin (Lipitor) 80 mg tablet Take 80 mg by mouth at bedtime. budesonide EC (Entocort EC) 3 mg 24 hr capsule Take 9 mg by mouth in the morning. metoprolol tartrate (Lopressor) 100 mg tablet Take 1 tablet (100 mg) by mouth in the morning. 30 tablet 3 pantoprazole (ProtoNix) 40 mg EC tablet Take 1 tablet by mouth in the morning. famotidine (Pepcid) 20 mg tablet Take 1 tablet (20 mg) by mouth in the morning and at bedtime. 60 tablet 0 [DISCONTINUED] predniSONE (Deltasone) 20 mg tablet Take 60 mg by mouth in the morning. No current facility-administered medications on file prior to visit. ROS: Constitutional: Positive for malaise/fatigue. Cardiovascular: Positive for chest pain, dyspnea on exertion and palpitations. Musculoskeletal: Positive for arthritis, back pain and joint pain. Neurological: Positive for light-headedness. All other systems reviewed and are negative. Physical Exam: Constitutional General Appearance: well-nourished, well-developed, appears stated age Level of Distress: comfortable Psychiatric Mental Status: alert, normal affect Orientation: oriented to time, place, and person Insight: good judgement Eyes Lids and Conjunctivae: non-injected, no xanthelasma ENMT Ears: no lesions on external ear Nose: no lesions on external nose Oropharynx: no cyanosis, no pallor Neck Neck: supple, trachea midline Carotid Arteries: bilateral normal upstroke, no bruits Jugular Veins: normal jugular venous pressure Thyroid: not enlarged Lungs Respiratory Effort: unlabored Chest Exam: normal curvature, no thoracic deformi (more content not included)... [facility]04-25-2023 NoteAyo is here to follow up post afib ablation. He states he isn't feeling too bad. As time goes on, things seem to be improving (strength, etc.). Hasn't felt like he's had any afib episodes since the procedure. Review of Systems Constitutional: Negative for malaise/fatigue. Cardiovascular: Positive for dyspnea on exertion (may be more related to his Chrohn's disease) and leg swelling. Negative for chest pain, cyanosis, irregular heartbeat, near-syncope, palpitations and syncope. Musculoskeletal: Positive for arthritis, back pain and joint pain. Neurological: Positive for dizziness (occasional), headaches (left-sided headache for last week or so -- doesn't seem to want to go away), light-headedness (occasional) and weakness (still has moments, but is getting better). Negative for excessive daytime sleepiness. All other systems reviewed and are negative.[facility] 11-21-2022 NotePatient: Ayo Rodriguez Emerson Procedure Summary Date: 11/21/22 Room / Location: [facility] DIAL [facility]FFER 1 EP / [facility] (Cath) Anesthesia Start: 0832 Anesthesia Stop: 1214 Procedures: Ablation atrial fibrillation NANCI during EP case Cardioversion/defibrillation Diagnosis: Persistent atrial fibrillation (CMS/HCC) (Persistent atrial fibrillation (CMS/HCC) [I48.19]) Providers: Darren Elmore MD Responsible Provider: Terry Kathleen MD Anesthesia Type: general ASA Status: 3 Anesthesia Type: general Vitals Value Taken Time BP 158/77 11/21/22 1206 Temp 36.2 ???C (97.2 ???F) 11/21/22 1206 Pulse 91 11/21/22 1206 Resp 20 11/21/22 1206 SpO2 94 % 11/21/22 1206 Anesthesia Post Evaluation Patient location during evaluation: PACU Patient participation: complete - patient participated Level of consciousness: awake and alert Pain score: 0 Pain management: adequate Airway patency: patent Cardiovascular status: acceptable Respiratory status: acceptable Hydration status: acceptable Comments: Pt acceptable for discharge from PACU There were no known notable events for this encounter.[facility]03-23-2023 NoteATRIAL FIBRILLATION ABLATION PROCEDURE NOTE DATE OF PROCEDURE: 11/21/2022 PERFORMING PHYSICIAN: Dr. Darren Elmore LOGISTICS ACCOUNT MANAGER: Dr Bacilio Olmedo CONSENT: Patient NAME OF THE PROCEDURE: Pulmonary Vein Isolation and Comprehensive EP study. INDICATIONS FOR PROCEDURE: 1. Persistent atrial fibrillation. FLUROSCOPY: 3minute 38seconds/23mGy. EBL: 25cc SPECIMEN REMOVED: None PROCEDURES PERFORMED: 1. Sonosite guided venous access as noted below and images stored in PACS. 2. Comprehensive EP study and catheter ablation for persistent atrial fibrillation through the pulmonary vein isolation technique. This includes right atrial recording and pacing, His bundle recording and right ventricular recording and pacing. 3. Intracardiac EP 3D mapping. 4. Intracardiac echocardiogram 5. Left atrial and coronary sinus recording and pacing to assess ablation results. 6. Left heart pressure measurements and LV pacing and recording. 7. Induction of arrhythmia and testing of ablation results using intravenous adenosine infusion. 8. Fluroscopy. 9 CTI flutter ablation. 10. Arterial line placement. INDICATION: 62 yr. male with medical history significant for Persistent A-fib, CAD s/p LAD ERIC, hypertension, hyperlipidemia, history of mild to moderate MR and AR presenting to the EP lab for a elective Atrial fibrillation ablation. He was recently hospitalized at the [facility] for A-fib RVR and is markedly symptomatic. PROCEDURE NOTE: On the day of presentation, he was noted to be in Afib/flutter with RVR following which the NANCI was done to rule out INDY clot. Risks, benefits and alternatives of the procedure were discussed with the patient and family who agreed to proceed. Please refer to my consult note for details of the discussion and of indications. The patient was prepped and draped following which four venous access was procured on right side as noted below. Ultrasound was used to determine the course and patency of the femoral veins on both sides and they were noted to be patent and the image stored in PACS. After infiltration with 1% lidocaine, 4 venous sheaths were placed in the right as noted below and a radial arterial line was placed by Anesthesia team which did not work and so I placed one in the left femoral artery. DCCV was performed to cardiovert to SR. RFV: 8Fx3, [employer] ThermoCool SF Bi-Directional over SL1/ Vizigo, SL1: Pentaray, CS Catheter (EZ Steer). 11F: ICE catheter LFA: 4F for hemodynamic monitoring. Following venous access, heparin bolus was given followed by continuous intravenous drip to target ACT around 350. An intracardiac ultrasound catheter was inserted into the right atrium to examine the right atrial anatomy, atrial septum, pulmonary vein anatomy and to monitor for pericardial effusion and guide transseptal access. The LA and RA was only moderately dilated. At baseline, there was no pericardial effusion and no INDY clot but noted a very prominent Coumadin ridge. Esophagus was mapped using the EzyInsightsUND 3D mapping software and noted to be towards the RSPV. Transeptal access was procured with ICE guidance using a SL-1 sheath and Kylah needle. LV pacing was performed and VA conduction was seen. Following this, pentaray catheter was advanced and the multipolar mapping performed of the LA creating a geometry as well as bipolar voltage assessment was made. The LA was noted to be healthy. After FAM geometrywas performed, a 2nd transseptal was performed with an SL1 sheath using a Kylah needle. Following transseptal, the SL1 sheath was removed and Vizigo sheath was advanced over which the ablation catheter ST-SF thermocol ablation catheter was advanced. Ablation was then performed. A temperature probe was advanced to the middle of the LA to monitor the temperature. Ablation was performed using 40 pierce for 10-12s in the anterior LA and 5-8seconds in the posterior wall and roof area. After completion of the left sided WACA, no signals were noted in the LSPV or LIPV and entrance and exit block was noted. After this, I proceeded to perform ablation of the right-sided vein. Following right WACA, the veins were isolated. I ensured that on the anterior aspect of right WACA and in morelia area, phrenic capture was ruled out before any ablation was performed. A temperature elevation was noted from a baseline of 36.6 to 37.8C. After this, perivenous pacing was performed around each individual vein, ensuring there was isolation. Adenosine was given a 12 mg dose and AV block and hypotension was noted. No reconnection was seen. I proceeded to perform CTI ablation. Using ICE, the His and IVC junctions were marked with 3D CARTO mapping software. ICE revealed a eustachian valve and long CTI but no subeustachian pouch. Vizigo sheath was chi to the right side. Ablation was performed on the CTI line starting at the tricuspid valve aspect. 40W was utiliz (more content not included)...[facility]03-23-2023 NoteAirway Date/Time: 11/21/2022 8:53 AM Urgency: elective General Information and Staff Patient location during procedure: OR Performed: anesthesiologist Learner assisted: Dental resident, Dr. Hemant Mooney Indications and Patient Condition Indications for airway management: anesthesia Spontaneous Ventilation: absent Sedation level: deep Preoxygenated: yes Mask difficulty assessment: 1 - vent by mask Final Airway Details Final airway type: endotracheal airway Successful airway: ETT Cuffed: yes Successful intubation technique: video laryngoscopy Facilitating devices/methods: intubating stylet Endotracheal tube insertion site: oral Blade: Santiago Blade size: #3 ETT size (mm): 7.5 Cormack-Lehane Classification: grade I - full view of glottis Placement verified by: chest auscultation and capnometry Measured from: lips ETT to lips (cm): 22 Number of attempts at approach: 1 Number of other approaches attempted: 0 Additional Comments Potter made it difficult to get a good mask sealUnSycamore Medical Center03-23-2023 NoteArterial Line: Date/Time: 11/21/2022 7:50 AM An arterial line was placed Procedure performed using surface landmarks.in the pre-op for the following indication(s): continuous blood pressure monitoring and blood sampling needed. A 20 gauge (size), 1 and 3/4 inch (length), Arrow (type) catheter was placed, Seldinger technique used , into the Right radial artery, secured by Tegaderm, suture and tape (and biodesc). Events: patient tolerated procedure well with no complications. Staffing Performed: resident/PENS AND PENCILS DIPPER/CAA Anesthesiologist: Terry Kathleen MD Resident/PENS AND PENCILS DIPPER: Mc Ramos [facility]03-23-2023 NotePatient: Ayo Alicia Procedure Information Date/Time: 11/21/22 0800 Procedure: Ablation atrial fibrillation Location: [facility] DIAL [facility]FFER 1 EP / [facility] (Cath) Providers: Darren Elmore MD Relevant Problems Cardio (+) Aortic valve regurgitation (+) Atrial fibrillation (CMS/HCC) (+) Coronary artery disease (+) Coronary atherosclerosis (+) Essential hypertension (+) Hypertension (+) Nonrheumatic mitral valve regurgitation (+) Paroxysmal atrial fibrillation with rapid ventricular response (CMS/HCC) Circulatory (+) Nonrheumatic tricuspid valve regurgitation Musculoskeletal (+) Disorder of intervertebral disc of cervical spine Other (+) Hyperlipidemia Past Medical History: Diagnosis Date ??? Atrial fibrillation (CMS/HCC) ??? Coronary artery disease ??? Heart valve disease ??? Hyperlipidemia ??? Hypertension ??? Obesity (BMI 30.0-34.9) Past Surgical History: Procedure Laterality Date ??? BACK SURGERY TOOK OUT DISC FRAGMENTS ??? CARDIAC CATHETERIZATION N/A 2020 ONE STENT INSERTION IN MAKER ARTERY ??? CERVICAL FUSION PT DOES NOT KNOW LEVEL ??? KNEE ARTHRODESIS Left 9 YRS AGO SEVERAL SCOPES ??? TOTAL KNEE ARTHROPLASTY Right 2020 No Known Allergies Estimated Date of Delivery: None noted. Patient Active Problem List Diagnosis ??? Heart valve disease ??? Hypertension ??? Atrial fibrillation (CMS/HCC) ??? Coronary artery disease ??? Hyperlipidemia ??? Chest pain ??? Cholelithiasis ??? Disorder of intervertebral disc of cervical spine ??? Erectile dysfunction ??? Fatigue ??? Iron deficiency anemia ??? residential current use of anticoagulant therapy ??? Aortic valve regurgitation ??? Nausea ??? Osteoarthritis ??? Paroxysmal atrial fibrillation with rapid ventricular response (CMS/HCC) ??? Periumbilical abdominal pain ??? Peyronie's disease ??? Right lower quadrant abdominal pain ??? Coronary atherosclerosis ??? Right upper quadrant abdominal pain ??? Essential hypertension ??? Nonrheumatic mitral valve regurgitation ??? Nonrheumatic tricuspid valve regurgitation Clinical information reviewed: Tobacco Allergies Meds Problems Med Hx Surg Hx Fam Hx Soc Hx Echocardiogram 10/24/2021: Normal ventricular systolic function. Mild concentric left ventricular hypertrophy. No significant valvular dysfunction. No pericardial effusion ??? Lexiscan stress test 11/06/2021: Conclusion: 1. Inferior perfusion defect fixed defect favored; wall motion is normal 2. No reversible ischemia 3. EF is 72% 4. No EKG changes ??? echocardiogram from 01/24/21 LV systolic function normal ejection fraction 60 to 65% No wall motion abnormalities Moderate LVH RV normal size and function Mild to moderate mitral valve regurg, mild aortic valve regurg Physical Exam Airway Mallampati: II TM distance: >3 FB Neck ROM: full Cardiovascular Rhythm: irregular Dental Pulmonary Abdominal - normal exam Abdomen: soft Other findings: Nonsmoker; LAD coronary arterial stent. Anesthesia Plan ASA 3 general The patient is not a current smoker. Patient was previously instructed to abstain from smoking on day of procedure. Patient did not smoke on day of procedure. intravenous induction Anesthetic plan and risks discussed with patient. Use of blood products discussed with patient who consented to blood products. Plan discussed with resident. Additional Equipment RequestsUnSycamore Medical Center03-20-2023 Note- continue Lipitor 80 mgUnSycamore Medical Center03-20-2023 Note Hypertension is stable today - continue medicationUnSycamore Medical Center03-20-2023 Note- mild regurgitation per recent echo 10/2022UnSycamore [facility] Center 11-18-2022 Note- per echo 10/2022 mild to moderate regurgitationUnSycamore Medical Center03-20-2023 Note- history of mild regurgitation, none noted on recent echo 10/2022UnSycamore Medical Center03-20-2023 NoteCoronary artery disease is Stable -s/p PCI with ERIC to LAD 01/26/21 (cath also noted severe prox and mid vessel to a short PDA and moderate dz to LCx) -Continue statin, BB - he has history of being on Plavix which was supposedly stopped after EGD [facility]03-20-2023 [id number] 2 ( hypertension, CAD) - continue Eliquis 5 mg twice daily Toprol 100 mg daily - we will proceed with A-fib ablation - tolerating Eliquis without any concerns of bleedingUnSycamore Medical Center03-10-2023 NotePatient here for pre afib ablation H&P. He is scheduled with Dr. Elmore on 11/21/2022. Since last apt he was admitted to [facility] for afib w/ RVR. Still has intermittent chest pain, but denies bleeding on Eliquis. Review of Systems Constitutional: Positive for malaise/fatigue. Cardiovascular: Positive for chest pain, dyspnea on exertion, leg swelling and palpitations. Musculoskeletal: Positive for arthritis, back pain and joint pain. Neurological: Positive for light-headedness. All other systems reviewed and are negative.[facility] 11-08-2022 NoteUT Cardiology Consult Note Reason for visit: Afib ablation HP + consent HPI: Ayo is here for H&P and consent for planned atrial fibrillation ablation. he has had no recent changes in past medical history or medications. he has a past medical history of A-fib, CAD s/p LAD ERIC, hypertension, hyperlipidemia, history of mild to moderate MR and AR . ECG today shows A-fib rate controlled. He was recently admitted to the [facility] for A-fib RVR where he was started on a Cardizem infusion and Lanoxin with an ELIZABETH. His troponins were reported negative. States he has been doing well and has not had any recent episodes that he is aware of similar to when he was admitted. With his echo done while he was there his RVSP was elevated. He denies chest pain, , Shortness of breath, [place], orthopnea. he has been doing well since discharge but can feel his A-fib. ------- HPI: Ayo Alicia is a 62 y.o. year old with past medical history of CAD and AF has been known to have fatigue. He has symptomatic AF with RVR. AF was Dx 2 years as per pt. He has noticed elevated heart rates with accompained chest pressure and Fitbit is reading Hrs in the 140s when he's sleeping or at rest. He was positive for sleep apnea 20 years ago, had uvula surgery for this. He has lots of GI issues and is believed to be Crohsn and on steroids. Tpday he is in SR by pulse check. PMH: Past Medical History: Diagnosis Date Atrial fibrillation (CMS/HCC) Coronary artery disease Heart valve disease Hyperlipidemia Hypertension Obesity (BMI 30.0-34.9) PSH: Past Surgical History: Procedure Laterality Date BACK SURGERY TOOK OUT DISC FRAGMENTS CARDIAC CATHETERIZATION N/A 2020 ONE STENT INSERTION IN MAKER ARTERY CERVICAL FUSION PT DOES NOT KNOW LEVEL KNEE ARTHRODESIS Left 9 YRS AGO SEVERAL SCOPES TOTAL KNEE ARTHROPLASTY Right 2020 SH: Social Determinants of Health Tobacco Use: Low Risk Smoking Tobacco Use: Never Smokeless Tobacco Use: Never Passive Exposure: Not on file Alcohol Use: Not on file Financial Resource Strain: Not on file Food Insecurity: Not on file Transportation Needs: Not on file Physical Activity: Not on file Stress: Not on file Social Connections: Not on file Intimate Partner Violence: Not on file Depression: Not on file Housing Stability: Not on file Allergies: No Known Allergies Weight: 92.5kg Vitals: 11/08/22 0933 BP: 131/82 Pulse: 90 SpO2: 98% Meds: Current Outpatient Medications on File Prior to Visit Medication Sig Dispense Refill apixaban (Eliquis) 5 mg tablet Take 1 tablet (5 mg) by mouth in the morning and at bedtime. 180 tablet 3 aspirin 81 mg EC tablet Take 81 mg by mouth in the morning. atorvastatin (Lipitor) 80 mg tablet Take 80 mg by mouth at bedtime. metoprolol tartrate (Lopressor) 100 mg tablet Take 1 tablet (100 mg) by mouth in the morning and at bedtime. (Patient taking differently: Take 100 mg by mouth in the morning.) 180 tablet 3 pantoprazole (ProtoNix) 40 mg EC tablet Take 1 tablet by mouth in the morning. predniSONE (Deltasone) 20 mg tablet Take 60 mg by mouth in the morning. No current facility-administered medications on file prior to visit. ROS: Constitutional: Positive for malaise/fatigue. Cardiovascular: Positive for chest pain, dyspnea on exertion and palpitations. Musculoskeletal: Positive for arthritis, back pain and joint pain. Neurological: Positive for light-headedness. All other systems reviewed and are negative. Physical Exam: Constitutional General Appearance: well-nourished, well-developed, appears stated age Level of Distress: comfortable Psychiatric Mental Status: alert, normal affect Orientation: oriented to time, place, and person Insight: good judgement Eyes Lids and Conjunctivae: non-injected, no xanthelasma ENMT Ears: no lesions on external ear Nose: no lesions on external nose Oropharynx: no cyanosis, no pallor Neck Neck: supple, trachea midline Carotid Arteries: bilateral normal upstroke, no bruits Jugular Veins: normal jugular venous pressure Thyroid: not enlarged Lungs Respiratory Effort: unlabored Chest Exam: normal curvature, no thoracic deformity Auscultation: clear, no wheezing, no rales, no rhonchi Cardiovascular Rate And Rhythm: regular Heart Sounds: normal S1, normal s2, no gallop Systolic Murmur: not heard Diastolic Murmur: not heard Extremities: no cyanosis, no edema, no peripheral signs of emboli Peripheral Pulses Radial Pulse: normal Abdomen Inspection and Palpation: soft, non distended, no bruit, non tender Musculoskeletal Inspection: no joint swelling Neurologic Gait: normal gait Skin Inspection and Palpation: warm and dry Nails: no clubbing Labs: Labs from 11/01 (more content not included)...[facility] 10-11-2022 NotecreUnSycamore Medical Center01-24-2023 NoteUT Cardiology Consult Note Reason for visit: Afib HPI: Ayo Alicia is a 62 y.o. year old with past medical history of CAD and AF has been known to have fatigue. He has symptomatic AF with RVR. AF was Dx 2 years as per pt. He has noticed elevated heart rates with accompained chest pressure and Fitbit is reading Hrs in the 140s when he's sleeping or at rest. He was positive for sleep apnea 20 years ago, had uvula surgery for this. He has lots of GI issues and is believed to be Crohsn and on steroids. Tpday he is in SR by pulse check. Echocardiogram 10/24/2021: Normal ventricular systolic function. Mild concentric left ventricular hypertrophy. No significant valvular dysfunction. No pericardial effusion Lexiscan stress test 11/06/2021: Conclusion: 1. Inferior perfusion defect fixed defect favored; wall motion is normal 2. No reversible ischemia 3. EF is 72% 4. No EKG changes echocardiogram from 01/24/21 LV systolic function normal ejection fraction 60 to 65% No wall motion abnormalities Moderate LVH RV normal size and function Mild to moderate mitral valve regurg, mild aortic valve regurg Reviewed labs from 05/04/2021 CBC stable hemoglobin 11.7 slightly low BUN 18, creatinine 1.00 normal renal function Liver function normal Cholesterol 100, HDL 32, triglyceride 82, LDL 51.6 lipids are well controlled CVL 01/26/21 FINAL IMPRESSIONS: 1. Severe, heavily calcific stenosis of the left anterior descending coronary artery successfully treated by intravascular lithotripsy and Synergy drug-eluting stent placement. 2. Severe proximal and mid vessel disease of a short posterior descending branch of the right coronary artery. 3. Moderate disease of the left circumflex coronary artery. PMH: Past Medical History: Diagnosis Date Atrial fibrillation (CMS/HCC) Coronary artery disease Heart valve disease Hyperlipidemia Hypertension PSH: No past surgical history on file. SH: Social Determinants of Health Tobacco Use: Low Risk Smoking Tobacco Use: Never Smokeless Tobacco Use: Never Passive Exposure: Not on file Alcohol Use: Not on file Financial Resource Strain: Not on file Food Insecurity: Not on file Transportation Needs: Not on file Physical Activity: Not on file Stress: Not on file Social Connections: Not on file Intimate Partner Violence: Not on file Depression: Not on file Housing Stability: Not on file Allergies: No Known Allergies Weight: No results found for: PTWEIGHT Meds: Current Outpatient Medications on File Prior to Visit Medication Sig Dispense Refill apixaban (Eliquis) 5 mg tablet Take 1 tablet (5 mg) by mouth in the morning and at bedtime. 180 tablet 3 aspirin 81 mg EC tablet Take 81 mg by mouth in the morning. atorvastatin (Lipitor) 80 mg tablet Take 80 mg by mouth at bedtime. metoprolol tartrate (Lopressor) 100 mg tablet Take 1 tablet (100 mg) by mouth in the morning and at bedtime. (Patient taking differently: Take 100 mg by mouth in the morning.) 180 tablet 3 pantoprazole (ProtoNix) 40 mg EC tablet Take 1 tablet by mouth in the morning. sulfaSALAzine (Azulfidine) 500 mg tablet Take 1,000 mg by mouth in the morning. predniSONE (Deltasone) 20 mg tablet Take 60 mg by mouth in the morning. No current facility-administered medications on file prior to visit. ROS: Constitutional: Positive for malaise/fatigue. Cardiovascular: Positive for chest pain, dyspnea on exertion and palpitations. Musculoskeletal: Positive for arthritis, back pain and joint pain. Neurological: Positive for light-headedness. All other systems reviewed and are negative. Physical Exam: Constitutional General Appearance: well-nourished, well-developed, appears stated age Level of Distress: comfortable Psychiatric Mental Status: alert, normal affect Orientation: oriented to time, place, and person Insight: good judgement Eyes Lids and Conjunctivae: non-injected, no xanthelasma ENMT Ears: no lesions on external ear Nose: no lesions on external nose Oropharynx: no cyanosis, no pallor Neck Neck: supple, trachea midline Carotid Arteries: bilateral normal upstroke, no bruits Jugular Veins: normal jugular venous pressure Thyroid: not enlarged Lungs Respiratory Effort: unlabored Chest Exam: normal curvature, no thoracic deformity Auscultation: clear, no wheezing, no rales, no rhonchi Cardiovascular Rate And Rhythm: regular Heart Sounds: normal S1, normal s2, no gallop Systolic Murmur: not heard Diastolic Murmur: not heard Extremities: no cyanosis, no edema, no peripheral signs of emboli Peripheral Pulses Radial Pulse: normal Abdomen Inspection and Palpation: soft, non distended, no bruit, non tender Musculoskeletal Inspection: no joint swelling Neurologic Gait: normal gait Skin Inspection and Palpation: warm and dry Nails: no clubbing Labs: @LABRESULTS@ No results found for: CHOLESTEROL TOTAL, HDL, LDL CALC, (more content not included)...[facility]01-24-2023 NotePatient here for 1 mo follow up afib per Maryann Russell. Still has chest tightness, SOB, and palpitations. Denies bleeding on Eliquis. He is only taking metoprolol tartrate only daily. Review of Systems Constitutional: Positive for malaise/fatigue. Cardiovascular: Positive for chest pain, dyspnea on exertion and palpitations. Musculoskeletal: Positive for arthritis, back pain and joint pain. Neurological: Positive for light-headedness. All other systems reviewed and are negative.[facility] 07-24-2022 Evaluation note* Encounter Date Diagnosis Assessment Notes Treatment Notes Treatment Clinical Notes Jul, Iron deficiency anemia (ICD-10 - D50.9) [facility] Other 11-08-2022 Evaluation note* Encounter Date Diagnosis Assessment Notes Treatment Notes Treatment Clinical Notes Jul, Iron deficiency anemia (ICD-10 - D50.9) Jul, Crohns disease (ICD-10 - K50.90) CONTINUE SULFASALAZINE 2 TABLETS TWICE A DAY RTO 4 WEEKS Jul, Abdominal pain (ICD-10 - R10.9) Jul, Diarrhea (ICD-10 - R19.7) [facility] Other 09-07-2022 NoteOPERATIVE NOTE OPERATION DATE: 05/08/2022 PREOPERATIVE DIAGNOSIS: Epigastric and bilateral lower abdominal pain, nausea, vomiting. POSTOPERATIVE DIAGNOSIS: Hiatal hernia, redundant colon with spasm. PROCEDURE: EGD and colonoscopy to cecum. SURGEON: Javid Wilson M.D. ANESTHESIA: Monitored anesthesia care. ESTIMATED BLOOD LOSS: Zero. INDICATIONS AND CONSENT: Patient is a 62-year-old male with a history of intermittent epigastric abdominal pain as well as bowel changes and intermittent nausea, vomiting, also with iron deficiency anemia. Indications, risks, benefits, alternatives of proceeding with EGD and colonoscopy were explained extensively to the patient, including the risks of bleeding, aspiration, esophageal/gastric/duodenal or colonic perforation or anesthetic complications. All of his questions were answered. Informed consent was obtained. PROCEDURE: Patient brought to the operating room, placed in the supine position. General anesthesia was induced. A bite block was placed in the patient's mouth. Scope was inserted into the oropharynx. Under direct visualization, it was advanced into the esophagus, past the cricopharyngeus, down to the stomach. The stomach was insufflated with air. The pylorus was traversed down to the descending portion of the duodenum. There was no evidence of duodenitis or ulceration. There was no scarring within the pyloric channel. The scope was pulled back and retroflexed. There was noted to be a sliding type hiatal hernia. No gastric mucosal abnormalities. No ulcerations or gastritis. No old or new blood. The GE junction was noted at 40 cm. There was no distal esophagitis or Chamberlain's changes. Remainder of the esophagus was unremarkable. The scope was then withdrawn. The patient was then positioned for colonoscopy. Rectal exam was performed which showed no masses or blood. Scope was inserted into the anal canal. Under direct visualization was advanced. With the aid of abdominal compression, it was advanced to the cecum where cecal markings were clearly identified. Appendiceal orifice and ileocecal valve were photographed. There was noted to be a good prep with some liquid stool throughout the colon that was partially irrigated clear. The terminal ileum was unable to be intubated due to the angle. Upon withdrawal of the scope, mucosal surfaces were carefully examined. There were no mass lesions or polyps. No inflammatory changes or ulcerations. Mild sigmoid diverticulosis as well as some spasm of the sigmoid colon. The scope was retroflexed in the anal canal. There were noted to be prominent rectal veins. No significant hemorrhoidal disease. No ulcerations. No old or new blood. The scope was then withdrawn. Patient tolerated procedure well, was sent to recovery room in good condition. CC: Perico Balderas M.D.[facility] [id number] NoteHNO ID: [id number] Author: Jesse Infante MD Service: ? Author Type: Physician Type: Progress Notes Filed: 02/12/2021 2:58 PM Note Text: [facility] NEW PATIENT HISTORY AND PHYSICAL EXAM PATIENT INFO: Ayo Michael Withvivian 60 year old REFERRING M.D.: Hosea Rust [address] [place] [address] This consult was requested by Dr. Rust for an opinion regarding Peyronie's disease, and my final recommendations will be communicated to the requesting health care provider by way of the shared medical record for internal providers or letter via the [employer] for external providers. HISTORY CHIEF COMPLAINT: Peyronie's disease HPI: Per OV 01/26/21 Dr. Pagan- Pt states that he has noticed the curve about 3 years ago. Pt states that he is at 30 degree angle, pt is denying any severe pain with erections, just slight discomfort. Pt states that with the curve it makes it harder for him to ejaculate Chronic, ongoing for the past few years. no plaque palpated. Pt's picture shows a 50 degrees dorsal curvature Patient is currently taking Viagra. PSA (04/28/20)- 1.26 UA is negative GUROS: Force of Stream:Normal NOCTURIA: No Day Time Frequency: Normal Hesitancy: No Intermittency: No Incomplete Emptying: No Post void Dribbling: No Urinary Retention Hx: No Double Voiding: No Urgency: No Dysuria: No Incontinence history: No HISTORY OF FAMILY CANCER:No gross hematuria history: No Erectile dysfunction: Yes UTI Hx: No MEDICATIONS: Current Outpatient Medications Medication Sig - aspirin 325 mg tablet Take by mouth. - atorvastatin (LIPITOR) 80 mg tablet atorvastatin 80 mg tablet TAKE 1 TABLET BY MOUTH DAILY - buPROPion XL (WELLBUTRIN XL) 150 mg 24 hr tablet q 24 HR. - carvedilol (COREG) 12.5 mg tablet carvedilol 12.5 mg tablet TAKE 1 TABLET BY MOUTH TWICE DAILY - clopidogrel (PLAVIX) 75 mg tablet clopidogrel 75 mg tablet TAKE 1 TABLET BY MOUTH DAILY - lisinopril-hydroCHLOROthiazide (PRINZIDE,ZESTORETIC) 20-12.5 mg per tablet q 24 HR. - meloxicam (MOBIC) 15 mg tablet q 24 HR. - omeprazole (PRILOSEC) 40 mg capsule q 24 HR. - sildenafil (VIAGRA) 100 mg tablet No current facility-administered medications for this visit. MEDICATION ALLERGIES: ALLERGIES No Known Allergies No past medical history on file. No past surgical history on file. Social History Tobacco Use - Smoking status: Never Smoker - Smokeless tobacco: Never Used Substance Use Topics - Alcohol use: Not on file - Drug use: Not on file REVIEW OF SYSTEMS: Constitutional: negative Eyes: negative Ear Nose and Throat: negative Cardiovascular: negative Respiratory: negative Gastrointestinal: negative Musculoskeletal: negative Integumentary: negative Neurological: negative Psychiatric: negative Endocrine: negative Hematologic/Lymphatic: negative Allergic/Immunologic: negative HPI: Patient is a 60 year old male who presents Today with Peyronie's disease. Patient states that Dr. Rust sent him. This started about 2.5 years ago and the first thing he noticed was the bend of the penis along with pain at the base. Currently when he has an erection it is not painful and it bends upwards. The cell phone photo shows 60 degrees of dorsal curvature. He states that he does not have trouble getting an erection but sometimes have problems maintaining an erection. Sometimes he takes Cialis and he feels it seems to help. Rigidity without medication is 8-85.10. Patient denies gross hematuria, dysuria, loss of appetite, N/V, heartburn, CP, SOB, constipation or diarrhea. He states that he has lost about 15 pounds since his knee replacement in therapy. He also states that he recently had a heart catheter. Patient states that there is not much discomfort as much as there is frustration. PHYSICAL EXAM: BP 113/68 Pulse 74 Resp 16 Wt 83.9 kg (185 lb) GENERAL:WNL nutrition, no deformities, healthy appearing ABDOMEN: Soft, nontender, nondistended, no masses. SKIN/LYMPH: No rash, lesions NEURO/PSYCH: No signs of depression, anxiety, or agitation EXTREMITIES: Extremities normal. No deformities, edema, clubbing or skin discoloration. GENITOURINARY: MALE EXAM: Circumcised. Along the top of the penis there is a long narrow dorsal plaque extending the entire length of the penis. Scrotum and testes are normal. MEDICAL DECISION MAKING: (A1) IMPRESSION: (Diagnostic Possibilities) New 1) Peyronie's disease 2) Organic ED (A2) PLAN: (Management Options) Discussed procedures regarding peyronie's disease such as injections an (more content not included)...[facility]06-14-2021 NotePatient Outreach (UROLMN) AYO ALICIA ([id number]) 1960 M Date Time Provider Department 02/12/21 JESSE INFANTE During your visit today, we recorded the following information about you: Allergies As of Date: 02/12/2021 (No Known Allergies) Date Reviewed: 02/12/2021 Reviewed by: Jesse Infante MD - Fully Assessed Visit Diagnosis:Screening for genitourinary condition [Z13.89] Order(s):URINALYSIS, DIPSTICK ONLY [SQUA] Order #: [id number]. #:[id number] Prescriptions as of 02/12/2021 Sig: ASPIRIN 325 MG TABLET Take by mouth. ATORVASTATIN 80 MG TABLET atorvastatin 80 mg tablet T* BUPROPION XL 150 MG TAB q 24 HR. CARVEDILOL 12.5 MG TABLET carvedilol 12.5 mg tablet T* CLOPIDOGREL 75 MG TABLET clopidogrel 75 mg tablet TA* LISINOPRIL 20 MG-HYDROCHLOROT* q 24 HR. MELOXICAM 15 MG TABLET q 24 HR. OMEPRAZOLE 40 MG CAPSULE,MARIA G* q 24 HR. SILDENAFIL 100 MG TABLET Problem List As Of Date 02/12/2021 Noted Resolved Peyronie's disease [N48.6] 02/12/2021 ED (erectile dysfunction) of organic origin [N5*02/12/2021 Encounter Status:Closed by GUILLERMO, PRODUSER on 02/15/21[facility] Evaluation + Plan note No data available for this section [facility] [place] Evaluation noteNo assessment information available [facility] Work Phone: Evaluation noteNo InformationNortTorrance State Hospital [facility] Other Evaluation note* Diagnosis Preop examination- Primary Unspecified pre-operative examination Coronary artery disease, unspecified vessel or lesion type, unspecified whether angina present, unspecified whether [place] or transplanted heart documented in this encounter [facility] N[facility]ative - Reported* Type Description Date Surgical History knee replacement-right Surgical History knee arthroscopy-left Surgical History back surgery Surgical History Neck Surgery Surgical History ganglion cyst-left Surgical History heart stent [facility] Other History general Narrative - Reported* Type Description Date Medical History Afib Surgical History knee replacement-right Surgical History knee arthroscopy-left Surgical History back surgery Surgical History Neck Surgery Surgical History ganglion cyst-left Surgical History heart stent Surgical History cardiac ablasion [facility] Other Hospital Discharge instructions No data available for this section [facility] [place] Progress note No data available for this section [facility] [place] Summary Purpose Family History No Family History Records FoundNo Family History Records FoundNo Family History Records FoundNo Family History Records FoundNo Family History Records FoundNo Family History Records FoundNo Family History Records FoundNo Family History Records Found Advance Directives No Advanced Directives Records Found Advance Directive Response Recorded Date/ Time Advance Directives No January 22 9 1:32pm Chief Complaint and Reason for Visit Chief Complaint Iron Deficiency Anem ia, Nausea, Abdominal Pain, Ep Chief Complaint K50.90 Additional Source Comments (unrecognized sect ion and content) No Status Records FoundNo Status Records FoundNo Status Records FoundNo Status Records FoundNo Status Records FoundNo Status Records FoundNo Status Records FoundNo Status Records Found INFORMATION SOURCE (unrecogn ized section and content) DATE CREATED AUTHOR 07/22/2020 [facility] DATE CREATED AUTHOR AUTHOR'S ORGANIZ ATION 10/03/2021 [facility] DATE CREATED AUTHOR AUTHOR'S ORGANIZ ATION 12/15/2021 [facility] DATE CREATED AUTHOR AUTHOR'S ORGANIZ ATION [facility]/2022 [facility] DATE CREATED AUTHOR AUTHOR'S ORGANIZ ATION 11/06/2022 [facility] DATE CREATED AUTHOR AUTHOR'S ORGANIZ ATION 04/24/2023 [facility] DATE CREATED AUTHOR AUTHOR'S ORGANIZ ATION 09/12/2023 [facility] DATE CREATED AUTHOR AUTHOR'S ORGANIZ ATION 09/18/2023 [facility] Care Team (unrecognized sect ion and content) Team Status: Active Member Role Status Dates Perico Balderas MD Primary Care Provider Active Team Status: Inactive Member Role Status Dates Perico Balderas MD Primary Care Provider Active Enoch Robles MD Attending Provider Active [employer] Installer Relationship Specialty Start Date End Date Perico Balderas MD [address] [place] [address] PCP - General Family Medicine 08/27/23 REASON FOR VISIT (unrecogniz ed section and content) PER [facility] ADD ON FOR FOLLOW UP CAPSULE ON 06/10/2022 FOR IRON DEFICIENCY ANEMIA.labs per Dr. Perrin PPW PLEASEClinical Acute IllnessPatient here for 3 month follow upClinical Acute IllnessREFILLhumira approvedPatient here for follow up Crohns. Patient was to start Humira Goals (unrecognized section and content) Goals may be documented in a n alternate section FOR RECORDS PERTAINING TO PATIENTS WHO ARE OR HAVE BEEN ENROLLED IN A CHEMICAL DEPENDENCY/SUBSTANCEABUSE PROGRAM, SOME INFORMATION MAY BE OMITTED. This clinical summary was aggregated from multiple sources. Caution should be exercised in using it in the provision of clinical care. This summary normalizes information from multiple sources, and as a consequence, information in this document may materially change the coding, format and clinical context of patient data. In addition, data may be omitted in some cases. CLINICAL DECISIONS SHOULD BE BASED ON THE PRIMARY CLINICAL RECORDS. [facility] [employer] [facility]. provides no warranty or guarantee of the accuracy or completeness of information in this document.
[2023-09-23 00:07] LABS: Calprotectin, Fecal 559 ug/g (0-120)
[2023-09-24 15:10] LABS: Lactoferrin, Fecal, Quant. 15.61 ug/mL(g) (0.00-7.24)
== END 2023-09-18 13:08 | disposition home or self-care (01) ==
LOC: LAB 13:07
PROVIDERS: PCP Family Medicine; Visit Provider Internal Medicine
DX: K50.90 Crohn's disease, unspecified, without complications (principal)
CPT/HCPCS: 83631; 83993

== ENCOUNTER 2023-10-03 13:29 | Outpatient (OUT) | payer OTHER, SELFPAY ==
--- OUTSIDE RECORDS SUMMARY | 2023-10-03 13:36 | XMS_ITS | CCD ---
Author Name Unknown Address [address] [place] [address] Organization [facility] Care Team Providers Care Manager Harbor Name Role Phone UNKNOWN, PHYSICIAN Primary Care Unavailable UNKNOWN, PHYSICIAN Referring Unavailable VIRAJ PAGANAB A Admitting Unavailable VIRAJ PAGANAB A Attending Unavailable Perico Mccabe Primary Care Physician [phone] MD Perico Mccabe Primary Care Provider [phone] MD Enoch Carnes Attending Provider Enoch Carnes Unavailable [phone] Javid WILLIS Attending Unavailable Perico Tubbs Referring Unavailabl e Javid WILLIS Attending Unavailable ESTELLE ., DR RIVER Primary [...] Consulting Unavailable JO LANG Consulting Unava ilable ESTELLE ., DR RIVER Primary Care Unavailable HOY ., DR RIVER Attending Unavailable HOY ., DR RIVER Consulting Unavailable FAIZAY ., DR RIVER Admitting Unavailable DAVID, DR CUBA Mark Consulting Unavailable DARREN LABOY Consulting Unavailable DARREN LABOY Attending Unavailable HOY ., DR RIVER Primary Care Unavailable DARREN LABOY Admitting Unavailable HOY ., DR RIVER Attending [...] DR RIVER Primary Care Unavailable CUBA RO Unavailable HOY ., DR RIVER Attending Unavailable HOY ., DR RIVER Admitting Unavailable HOY ., DR RIVER Consulting Unavailable HOY ., DR RIVER Primary Care Unavailable ZIEBERCL Consulting Unavailable ZIEBER CL R Consulting Unavailable BENOITDARREN CRABTREE Admitting Unavailable DARREN LABOY Attending Unavailable HOY ., DR RIVER Primary Care Unavailable BENOITDARREN CRABTREE Consulting Unavailable DEYVI, DR Rose Du Consulting Unavailable MISC, DR TRUJILLO Attending Unavailable HOY ., DR RIVER Primary Care Unavailable MISC, DR TRUJILLO Admitting Unavailable HOY ., DR RIVER Consulting Unavailable HOY ., DR RIVER Admitting Unavailable HOY ., DR RIVER Attending Unavailable HOY ., DR RIVER Primary Care Unavailable HOY ., DR RIVER Primary Care Unavailable DEYVI, DR Rose Du Consulting Unavailable DEYVI, DR Rose Du Attending Unavailable DEYVI, DR Rose Du Admitting Unavailable HOY ., DR RIVER Primary Care Unavailable NILL ., DR DIAZ Attending Unavailable NILL ., DR DIAZ Admitting Unavailable [place], DR CUBA Mark Consulting Unavailable NILL ., DR DIAZ Consulting Unavailable HOY ., DR RIVER Attending Unavailable HOY ., DR RIVER Primary Care Unavailable HOY ., DR RIVER Consulting Unavailable HOY ., DR RIVER Admitting Unavailable Enoch Carnes Admitting UnavailPerico Lugo Primary Care Unavailable Enoch Carnes Attending UnavailPerico Lugo Primary Care Unavailable Enoch Carnes Attending UnavailEnoch Duffy Admitting UnavailMD Perico Lugo Primary Care Provider [phone] MD Enoch Carnes Attending Provider [phone] Perico Mccabe MD Primary Care Provider [phone] LETHA MONTOYA Referring Unavailable PERICO MCCABE Primary Care Unavailable CUBA TOMAS Referring Unavailable PERICO MCCABE Primary Care Unavailable LETHA MONTOYA Admitting Unavailable LETHA MONTOYA Attending Unavailable ZOIE BARNHART Attending Unavailable PERICO MCCABE Primary Care Unavailable DARREN LABOY Attending Unavailable PAULINE MELENDEZ Attending Unavailable PAULINE MELENDEZ Attending Unavailable DARREN LABOY Attending Unavailable DARREN LABOY Admitting Unavailable DARREN LABOY Attending Unavailable DARREN LABOY Referring Unavailable DARREN LABOY Referring Unavailable DARREN LABOY Referring Unavailable GLORIA PAGAN Attending Unavailable ROEL BARAHONA Referring Unavailable CHELSI RUSSELL Attending Unavailable Medications Current Medications Medication Drug Class(es) [...] disease (5 sources) Atherosclerotic heart disease of [place] coronary artery without angina pectoris; Translations: [Coronary [...] Onset: 09-24-2022 02-02-2021 Chronic Heart valve disorders (3 sources) Rheumatic disorders of both mitral and aortic valves; Translations: [Nonrheumatic aortic (valve) insufficiency] Onset: 05-10-2022 Chronic Hyperplasia of prostate (1 [...] sources) Long-term current use of anticoagulant; Translations: [prison (current) use of anticoagulants] Onset: 04-01-2022 Episodic Other aftercare (1 source) 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; Translations: [FPC CURRENT USE OF ASPIRIN] Onset: 10-28-2022 Episodic Other aftercare (1 source) Other fpc (current) drug therapy; Translations: [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] Onset: 10-28-2022 Episodic Other [...] Onset: 07-08-2022 Episodic Other aftercare (1 source) prison (current) use of anticoagulants; Translations: [FPC CURRNT USE ANTICOAGULANTS] Onset: 05-10-2022 Episodic Other [...] Test Name Value Interpretation Reference Range Facility Office Visiton 09-22-2023 Follow-up visit [id number] Ayo Alicia 1960 M Date Provider Department Center 09/22/2023 271-[facility] Family History Problem Relation Age of Onset Atrial fibrillation Mother Other Mother Other Mother Coronary artery disease Father Family Status - Relation Status Age at Mother Father Level of Service:06183 [place] OFFICE/OUTPATIENT ESTABLISHED MOD MDM 30 MIN Normal [facility] Orders Onlyon 09-17-2023 Orders Only [id number] Ayo Alicia 1960 Provider Department Center 09/17/2023 Shyanne-DARREN LABOY [facility] [place] Family History Problem Relation Age of Onset Atrial fibrillation Mother Other Mother Other Mother Coronary artery disease Father Family Status - Relation Status Age at Mother Father [facility] 36on 09-11-2023 36 Can we please have him switch his metoprolol to carvedilol 25mg BID. Follow-up in clinic in 2 weeks. Thank you [facility] 36on 08-30-2023 36 Please let him know his recent labs show his kidney function is normal. Thank you Normal [facility] HEMOGLOBINon 08-27-2023 Hemoglobin (Bld) [Mass/Vol] 12.3 g/dL Low 13.0-17.0 [facility] Comment on above: Performed By: #### 7 18-7 #### [facility] ([id number]) [address] [place] [address], [address] [place] [address] Hemoglobinon 08-27-2023 Hemoglobin (Bld) [Mass/Vol] 12.3 g/dL Low 13.0 - 17.0 g/dL [facility] Hemoglobin (Bld) [Mass/Vol]o n 08-27-2023 Interpretation and review of laboratory results Abnormal [facility] 36on 08-06-2023 36 Pt infomed appt made meds sent [facility] Orders Onlyon 08-06-2023 Orders Only [id number] Ayo Alicia Rose 1960 [facility] Provider Department Center 08/06/2023 MOUNIKA TREADWELL Family History Problem Relation Age of Onset Atrial fibrillation Mother Other Mother Other Mother Coronary artery disease Father Family Status - Relation Status Age at Mother Father [facility] 36on 08-04-2023 36 His blood pressure is too high. Please have him increase his lisinopril to 20mg daily (he can take 2 tablets of his current 10mg until this runs out). He will need follow-up BMP in 2 weeks. Follow-up in clinic in 3 months. Thanks [facility] Telephoneon 08-04-2023 Telephone [id number] EmersonAyo Rose 1960 [facility] Provider Department Center 08/04/2023 MOUNIKA TREADWELL Family History Problem Relation Age of Onset Atrial fibrillation Mother Other Mother Other Mother Coronary artery disease Father Family Status - Relation Status Age at Mother Father [facility] 36on 07-02-2023 36 Patient needs phone call for BP check on 07/16/2023. Thanks. [facility] Office Visiton 07-02-2023 Follow-up visit [id number] MarjorieAyo park Rose 1960 [facility] Provider Department Center 07/02/2023 CHELSI LINARES Family History Problem Relation Age of Onset Atrial fibrillation Mother Other Mother Other Mother Coronary artery disease Father Family Status - Relation Status Age at Mother Father Level of Service:52176 [place] OFFICE/OUTPATIENT ESTABLISHED MOD MDM 30-39 MIN [facility] Albumin [Mass/volume] in Ser um or Plasma by Bromocresol green (BCG) dye binding methoOrdered By: Enoch Carnes on 04-23-2023 Albumin BCG dye [Mass/Vol] 3.8 g/dL 3.5-5.7 [facility] Basophils Auto (Bld) [#/Vol] Ordered By: Enoch Carnes on 04-23-2023 Basophils (Bld) [#/Vol] 0.1 10*3/uL 0.0-0.2 [facility] Basophils/100 WBC Auto (Bld) Ordered By: Enoch Carnes on 04-23-2023 Basophils/100 WBC (Bld) 0.8 % . [facility] Bilirubin.total [Mass/volume ] in Serum or PlasmaOrdered By: Enoch Carnes on 04-23-2023 Bilirubin [Mass/Vol] 0.9 mg/dL 0.3-1.0 [facility] Calcium [Mass/volume] in Ser um or PlasmaOrdered By: Enoch Carnes on 04-23-2023 Calcium [Mass/Vol] 8.7 mg/dL 8.6-10.3 [facility] Carbon dioxide, total [Moles /volume] in Serum or PlasmaOrdered By: Enoch Carnes on 04-23-2023 CO2 [Moles/Vol] 29.7 mmol/L 21.0-31.0 [facility] Complete Blood Count Auto Di ffon 04-23-2023 Basophils (Bld) [#/Vol] 0.1 10*3/uL Normal 0.0-0.2 [facility] Comment on above: Order Comment: Reaso n for Exam Crohns disease Result Comment: PERF ORMED BY: [place] [address] PATHOLOGIST ETL DATABASE DEVELOPER ANIYA BRUCE M.D. Performed By: #### C BC, CMP #### [facility] [address] [place] [address] [place] Basophils/100 WBC (Bld) 0.8 % Normal . [facility] Comment on above: Order Comment: Reaso n for Exam Crohns disease Performed By: #### C BC, CMP #### [facility] [address] [place] [address] [place] Eosinophils (Bld) [#/Vol] 0.1 10*3/uL Normal 0.0-0.45 [facility] Comment on above: Order Comment: Reaso n for Exam Crohns disease Performed By: #### C BC, CMP #### [address] Eosinophils/100 WBC (Bld) 1.4 % Normal . [facility] Comment on above: Order Comment: Reaso n for Exam Crohns disease Performed By: #### C BC, CMP #### [address] Erythrocyte distribution width (RBC) [Ratio] 19.1 % High 12.0-14.8 [facility] Comment on above: Order Comment: Reaso n for Exam Crohns disease Performed By: #### C BC, CMP #### [address] Hematocrit (Bld) [Volume fraction] 25.3 % Low 38.8-50.0 [facility] Comment on above: Order Comment: Reaso n for Exam Crohns disease Performed By: #### C BC, CMP #### [address] Hemoglobin (Bld) [Mass/Vol] 7.7 g/dL Low 13.0-17.0 [facility] Comment on above: Order Comment: Reaso n for Exam Crohns disease Performed By: #### C BC, CMP #### [address] Lymphocytes (Bld) [#/Vol] 0.7 10*3/uL Low 1.00-4.8 [facility] Comment on above: Order Comment: Reaso n for Exam Crohns disease Performed By: #### C BC, CMP #### [address] Lymphocytes/100 WBC (Bld) 7.2 % Normal . [facility] Comment on above: Order Comment: Reaso n for Exam Crohns disease Performed By: #### C BC, CMP #### [address] MCH (RBC) [Entitic mass] 22.0 pg Low 27.5-35.2 [facility] Comment on above: Order Comment: Reaso n for Exam Crohns disease Performed By: #### C BC, CMP #### [facility] [address] [place] [address] [place] MCV (RBC) [Entitic vol] 72.5 fL Low 83.5-101 [facility] Comment on above: Order Comment: Reaso n for Exam Crohns disease Performed By: #### C BC, CMP #### [facility] [address] Mean Corpuscular HGB Conc 30.3 g/dL Low 32.5-35.6 [facility] Comment on above: Order Comment: Reaso n for Exam Crohns disease Performed By: #### C BC, CMP #### [address] Monocytes (Bld) [#/Vol] 0.8 10*3/uL Normal 0.0-0.8 [facility] Comment on above: Order Comment: Reaso n for Exam Crohns disease Performed By: #### C BC, CMP #### [facility] [address] [place] [address] [place] Monocytes/100 WBC (Bld) 8.0 % Normal . [facility] Comment on above: Order Comment: Reaso n for Exam Crohns disease Performed By: #### C BC, CMP #### [facility] [address] [place] [address] Neutrophils (Bld) [#/Vol] 8.1 10*3/uL High 1.8-7.7 [facility] Comment on above: Order Comment: Reaso n for Exam Crohns disease Performed By: #### C BC, CMP #### [facility] [address] [place] [address] [place] Neutrophils/100 WBC (Bld) 82.6 % Normal . [facility] Comment on above: Order Comment: Reaso n for Exam Crohns disease Performed By: #### C BC, CMP #### [facility] [address] [place] [address] [place] NRBC% 0.1 /100{WBC} Normal 0-0.5 [facility] Comment on above: Order Comment: Reaso n for Exam Crohns disease Performed By: #### C BC, CMP #### [facility] [address] Platelet mean volume (Bld) [Entitic vol] 7.5 fL Normal 6.6-10.1 [facility] Comment on above: Order Comment: Reaso n for Exam Crohns disease Performed By: #### C BC, CMP #### [facility] [address] Platelets (Bld) [#/Vol] 359 10*3/uL Normal 150-450 [facility] Comment on above: Order Comment: Reaso n for Exam Crohns disease Performed By: #### C BC, CMP #### [facility] [address] RBC (Bld) [#/Vol] 3.49 10*6/uL Low 3.90-5.60 [facility] Comment on above: Order Comment: Reaso n for Exam Crohns disease Performed By: #### C BC, CMP #### [facility] [address] WBC (Bld) [#/Vol] 9.8 10*3/uL Normal 4.1-10.5 [facility] Comment on above: Order Comment: Reaso n for Exam Crohns disease Performed By: #### C BC, CMP #### [facility] [address] Comprehensive Metabolic Pane dianna 04-23-2023 Albumin [Mass/Vol] 3.853710 g/dL Normal 3.5-5.7 g/dL [employer] Other Bilirubin [Mass/Vol] 0.2003625 mg/dL Normal 0.3- 1.0 mg/dL [employer] Other Calcium [Mass/Vol] 8.9133257 mg/dL Normal 8.6-10 .3 mg/dL [employer] Other CO2 [Moles/Vol] 29.98449259 mmol/L Normal 21.0-3 1.0 mmol/L [employer] Other Creatinine [Mass/Vol] 1.14259762 mg/dL Normal 0. 70-1.30 mg/dL [employer] Other Potassium [Moles/Vol] 3.83969687 mmol/L Low 3 .5-5.1 mmol/L [employer] Other Protein [Mass/Vol] 6.999734 g/dL Low 6.4-8.9 g/dL N [facility] [employer] Other Comprehensive Metabolic Panel 2.2 g/dL [facility] [employer] Other Albumin [Mass/Vol] 3.8 g/dL Normal 3.5-5.7 [facility] Comment on above: Order Comment: Reaso n for Exam Crohns disease Performed By: #### C BC, CMP #### [facility] [address] Anion gap [Moles/Vol] 8.6 mmol/L Normal 6.0-15.0 [facility] Comment on above: Order Comment: Reaso n for Exam Crohns disease Performed By: #### C BC, CMP #### [facility] [address] [place] [address] [place] Bilirubin [Mass/Vol] 0.9 mg/dL Normal 0.3-1.0 [facility] Comment on above: Order Comment: Reaso n for Exam Crohns disease Performed By: #### C BC, CMP #### [facility] [address] [place] [address] [place] Calcium [Mass/Vol] 8.7 mg/dL Normal 8.6-10.3 [facility] Comment on above: Order Comment: Reaso n for Exam Crohns disease Performed By: #### C BC, CMP #### [facility] [address] [place] [address] [place] CO2 [Moles/Vol] 29.7 mmol/L Normal 21.0-31.0 [facility] Comment on above: Order Comment: Reaso n for Exam Crohns disease Performed By: #### C BC, CMP #### [facility] [address] Creatinine [Mass/Vol] 1.08 mg/dL Normal 0.70-1.30 [facility] Comment on above: Order Comment: Reaso n for Exam Crohns disease Performed By: #### C BC, CMP #### [facility] [address] [place] [address] [place] GFR/1.73 sq M.predicted MDRD (S/P/Bld) [Vol rate/Area] mL/min/{1.73_m2} Normal [employer] Other Comment on above: Order Comment: Reaso n for Exam Crohns disease Performed By: #### C BC, CMP #### [facility] [address] [place] [address] Globulin (S) [Mass/Vol] 2.2 g/dL Normal [facility] Comment on above: Order Comment: Reaso n for Exam Crohns disease Performed By: #### C BC, CMP #### [facility] [address] [place] [address] Potassium [Moles/Vol] 3.3 mmol/L Low 3.5-5.1 [facility] Comment on above: Order Comment: Reaso n for Exam Crohns disease Performed By: #### C BC, CMP #### [facility] [address] [place] [address] Protein [Mass/Vol] 6.0 g/dL Low 6.4-8.9 [facility] Comment on above: Order Comment: Reaso n for Exam Crohns disease Performed By: #### C BC, CMP #### [facility] [address] Comprehensive Metabolic Pane lOrdered By: Enoch Carnes on 04-23-2023 Albumin/Globulin [Mass ratio] 1.7 {ratio} Normal [facility] Comment on above: Order Comment: Reaso n for Exam Crohns disease Performed By: #### C BC, CMP #### [facility] [address] ALP [Catalytic activity/Vol] 45 U/L Normal 34-104 [facility] Comment on above: Order Comment: Reaso n for Exam Crohns disease Result Comment: PERF ORMED BY: [place] [address] PATHOLOGIST ETL DATABASE DEVELOPER ANIYA BRUCE M.D. Performed By: #### C BC, CMP #### [address] ALT [Catalytic activity/Vol] 12 U/L Normal 7-52 [facility] Comment on above: Order Comment: Reaso n for Exam Crohns disease Performed By: #### C BC, CMP #### [address] AST [Catalytic activity/Vol] 11 U/L Low 13-39 [facility] Comment on above: Order Comment: Reaso n for Exam Crohns disease Performed By: #### C BC, CMP #### [address] Chloride [Moles/Vol] 106 mmol/L Normal 98-107 [facility] Comment on above: Order Comment: Reaso n for Exam Crohns disease Performed By: #### C BC, CMP #### [address] Glucose [Mass/Vol] 140 mg/dL High 70-100 [facility] Comment on above: Order Comment: Reaso n for Exam Crohns disease Result Comment: [place] om Glucose Reference Range is dependent on time and content of last meal. Glucose of more than 200 mg/dL in a nonstressed, ambulatory subject supports the diagnosis of Diabetes Mellitus. ADA recommended reference range Performed By: #### C BC, CMP #### [address] ADA recommended refe rence rangeRandom Glucose Reference Range is dependent on time and content of last meal. Glucose of more than 200 mg/dL in a nonstressed, ambulatory subject supports the diagnosis of Diabetes Mellitus. Sodium [Moles/Vol] 141 mmol/L Normal 136-145 [facility] Comment on above: Order Comment: Reaso n for Exam Crohns disease Performed By: #### C BC, CMP #### [facility] [address] Urea nitrogen [Mass/Vol] 15 mg/dL Normal 7-25 [facility] Comment on above: Order Comment: Reaso n for Exam Crohns disease Performed By: #### C BC, CMP #### [facility] [address] Creatinine [Mass/volume] in Serum or PlasmaOrdered By: Enoch Carnes on 04-23-2023 Creatinine [Mass/Vol] 1.08 mg/dL 0.70-1.30 [facility] Eosinophils Auto (Bld) [#/Vo l]Ordered By: Enoch Carnes on 04-23-2023 Eosinophils (Bld) [#/Vol] 0.1 10*3/uL 0.0-0.45 [facility] Eosinophils/100 WBC Auto (Bl d)Ordered By: Enoch Carnes on 04-23-2023 Eosinophils/100 WBC (Bld) 1.4 % . [facility] Erythrocyte distribution wid th Auto (RBC) [Ratio]Ordered By: Enoch Carnes on 04-23-2023 Erythrocyte distribution width (RBC) [Ratio] 19.1 % 12.0-14.8 [facility] Globulin Calc (S) [Mass/Vol] Ordered By: Enoch Carnes on 04-23-2023 Globulin (S) [Mass/Vol] 2.2 g/dL [facility] Hematocrit Auto (Bld) [Volum e fraction]Ordered By: Enoch Carnes on 04-23-2023 Hematocrit (Bld) [Volume fraction] 25.3 % 38.8-50.0 [facility] Hemoglobin [Mass/volume] in BloodOrdered By: Enoch Carnes on 04-23-2023 Hemoglobin (Bld) [Mass/Vol] 7.7 g/dL 13.0-17.0 [facility] Leukocytes [#/volume] correc miguel for nucleated erythrocytes in Blood by Automated counOrdered By: Enoch Carnes on 04-23-2023 WBC corrected for nucl RBC Auto (Bld) [#/Vol] 9.8 10*3/uL 4.1-10.5 [facility] Lymphocytes Auto (Bld) [#/Vo l]Ordered By: Enoch Carnes on 04-23-2023 Lymphocytes (Bld) [#/Vol] 0.7 10*3/uL 1.00-4.8 [facility] Lymphocytes/100 WBC Auto (Bl d)Ordered By: Enoch Carnes on 04-23-2023 Lymphocytes/100 WBC (Bld) 7.2 % . [facility] MCH Auto (RBC) [Entitic mass ]Ordered By: Enoch Carnes on 04-23-2023 MCH (RBC) [Entitic mass] 22.0 pg 27.5-35.2 [facility] MCHC Auto (RBC) [Mass/Vol]Or dered By: Enoch Carnes on 04-23-2023 MCHC (RBC) [Mass/Vol] 30.3 g/dL 32.5-35.6 [facility] MCV Auto (RBC) [Entitic vol] Ordered By: Enoch Carnes on 04-23-2023 MCV (RBC) [Entitic vol] 72.5 fL 83.5-101 [facility] Monocytes Auto (Bld) [#/Vol] Ordered By: Enoch Carnes on 04-23-2023 Monocytes (Bld) [#/Vol] 0.8 10*3/uL 0.0-0.8 [facility] Monocytes/100 WBC Auto (Bld) Ordered By: Enoch Carnes on 04-23-2023 Monocytes/100 WBC (Bld) 8.0 % . [facility] Neutrophils Auto (Bld) [#/Vo l]Ordered By: Enoch Carnes on 04-23-2023 Neutrophils (Bld) [#/Vol] 8.1 10*3/uL 1.8-7.7 [facility] Neutrophils/100 WBC Auto (Bl d)Ordered By: Enoch Carnes on 04-23-2023 Neutrophils/100 WBC (Bld) 82.6 % . [facility] No Panel InformationOrdered By: Enoch Carnes on 04-23-2023 Estimated GFR (CKD-EPI) > 60.0 mL/Min [facility] Creatinine Clearance (Chem N/A [facility] Nucleated erythrocytes [Pres ence] in Blood by Automated countOrdered By: Enoch Carnes on 04-23-2023 Nucleated RBC Auto Ql (Bld) 0.1 /100{WBC} 0-0.5 [facility] Platelet mean volume Auto (B ld) [Entitic vol]Ordered By: Enoch Carnes on 04-23-2023 Platelet mean volume (Bld) [Entitic vol] 7.5 fL 6.6-10.1 [facility] Platelets Auto (Bld) [#/Vol] Ordered By: Enoch Carnes on 04-23-2023 Platelets (Bld) [#/Vol] 359 10*3/uL 150-450 [facility] Potassium [Moles/volume] in Serum or PlasmaOrdered By: Enoch Carnes on 04-23-2023 Potassium [Moles/Vol] 3.3 mmol/L 3.5-5.1 [facility] Protein [Mass/volume] in Ser um or PlasmaOrdered By: Enoch Carnes on 04-23-2023 Protein [Mass/Vol] 6.0 g/dL 6.4-8.9 [facility] RBC Auto (Bld) [#/Vol]Ordere d By: Enoch Carnes on 04-23-2023 RBC (Bld) [#/Vol] 3.49 10*6/uL 3.90-5.60 [facility] Serum or plasma anion gap de terminationOrdered By: Enoch Carnes on 04-23-2023 Anion gap [Moles/Vol] 8.6 mmol/L 6.0-15.0 [facility] WBC Auto (Bld) [#/Vol]Ordere d By: Enoch Carnes on 04-23-2023 WBC (Bld) [#/Vol] 9.8 10*3/uL 4.1-10.5 [facility] Office Visiton 02-18-2023 Follow-up visit [id number] Ayo Alicia 1960 Date Provider Department Center 02/18/2023 DARREN ROLLINS CARD [facility] Family History Problem Relation Age of Onset Atrial fibrillation Mother Other Mother Other Mother Coronary artery disease Father Family Status - Relation Status Age at Mother Father Level of Service:25195 [place] OFFICE/OUTPATIENT ESTABLISHED MOD MDM 30-39 MIN Reason for Visit and Comments: Follow-up [570152] - 2 month follow up [facility] Follow-Upon 12-24-2022 Follow-Up [id number] Ayo Alicia Rose 1960 M Date Provider Department Center 12/24/2022 1596-PAULINE MELENDEZ CARD [facility] Family History Problem Relation Age of Onset Atrial fibrillation Mother Other Mother Other Mother Coronary artery disease Father Family Status - Relation Status Age at Mother Father Level of Service:64085 [place] OFFICE/OUTPATIENT ESTABLISHED MOD MDM 30-39 MIN [facility] Telephoneon 12-12-2022 Telephone [id number] EmersonAyo Rodriguez 1960 Date Provider Department Center 12/12/20221986-DANIELLA [facility] Family History Problem Relation Age of Onset Atrial fibrillation Mother Other Mother Other Mother Coronary artery disease Father Family Status - Relation Status Age at Mother Father Reason for Visit and Comments: 3 week post ablation f/u [Other] [facility] Telephoneon 11-28-2022 Telephone [id number] Ayo Alicia Rose 1960 Date Provider Department Center 11/28/2022 1987-DANIELLA ABURTO [facility] Family History Problem Relation Age of Onset Atrial fibrillation Mother Other Mother Other Mother Coronary artery disease Father Family Status - Relation Status Age at Mother Father Reason for Visit and Comments: week f/u post ablation [Other] [facility] 29on 11-21-2022 29 Addendum created 11/21/22 1344 by Terry Kathleen MD Order list changed, Pharmacy for encounter modified [facility] Anesthesiaon 11-21-2022 Anesthesia [id number] Ayo Alicia Rose 1960 Date Provider Department Center 11/21/2022 417TERRY LITTLEJOHN [facility] Family History Problem Relation Age of Onset Atrial fibrillation Mother Other Mother Other Mother Coronary artery disease Father Family Status - Relation Status Age at Mother Father Marvin [facility] DSon 11-21-2022 DS Admission Admitted 11/21/2022 for Persistent atrial fibrillation ablation Discharge Diagnosis Atrial fibrillation (CMS/HCC) Discharge Disposition Home or Self Care Discharge [...] Your Medications These medications were sent to [facility] [address] [address] famotidine 20 mg tablet sucralfate 1 gram tablet Activity Patient currently has no discharge activity orders Diet Patient currently has no discharge diet orders Allergies Patient has no known allergies. Hospital Course ATRIAL FIBRILLATION ABLATION PROCEDURE NOTE DATE OF PROCEDURE: 11/21/2022 PERFORMING PHYSICIAN: Dr. Darren Laboy DIRECTOR OF TESTING: Dr Bacilio Olmedo CONSENT: Patient NAME OF [...] was recently hospitalized at the [facility] for A-fib RVR and is [...] Coumadin ridge. Esophagus was mapped using the [employer] 3D mapping software and noted to be [...] was noted to (more content not included)... [place] 11-21-2022 Attestation signed by Darren Laboy MD at 11/21/2022 8:23 AM By using [...] was recently hospitalized at the [facility] for A-fib RVR where he [...] no peripher (more content not included)... Normal [facility] NURSNOTEon 11-21-2022 NURSNOTE Discharge instructions reviewed at bedside with patient . All questions answered at this time Maria Isabel Fonseca [place] Normal [facility] NURSNOTE EKG at bedside Maria Isabel Fonseca [place] Normal [facility] Orders Onlyon 11-21-2022 Orders Only [id number] Ayo Alicia 1960 M Date Provider Department Center 11/21/20221986-[facility] Family History Problem Relation Age of Onset Atrial fibrillation Mother Other Mother Other Mother Coronary artery disease Father Family Status - Relation Status Age at Mother Father Normal [facility] POCT GLUCOSE METER UNSOLICIT ED RESULTSon 11-21-2022 Glucose [Mass/Vol] 144 mg/dL High 70-105 [facility] Comment on above: Result Comment: epaw low Performed By: #### L [id number] ####[facility] ([facility]AKER)[address] [place] [address] PROTIME-INRon 11-21-2022 INR IN PPP BY COAGULATION ASSAY 1.12 High 0.90-1.10 [facility] Comment on above: Result Comment: ACCC [...] CHEST 1995;[id number]. Performed By: #### L [id number] ####[facility] [employer] [facility])[address] [place] [address] PROTHROMBIN TIME (PT) IN PPP BY COAGULATION ASSAY 14.3 Seconds Normal 12.3-14.8 [facility] Comment on above: Performed By: #### L [id number] ####[facility] LAB ([facility])[address] [place] [address] Office Visiton 11-08-2022 Follow-up visit [id number] Ayo Alicia 1960 M Date Provider Department Center 11/08/2022 Pato6-APULINE MELENDEZ Family History Problem Relation Age of Onset Atrial fibrillation Mother Other Mother Other Mother Coronary artery disease Father Family Status - Relation Status Age at Mother Father Level of Service:[id number] [place] OFFICE/OUTPATIENT ESTABLISHED MOD MDM 30-39 MIN Reason for Visit and Comments: Atrial Fibrillation [80] H&P [Other] Normal [facility] CBC AUTO DIFFon 11-01-2022 BASO # 0.1 103/ul Normal 0.0-0.1 [facility] Comment on above: Performed By: #### C MREP #### [facility] [address] [place] [address] Dr. Sayda Kapoor Basophils/100 WBC (Bld) 0.7 % Normal 0.2-2.0 [facility] Comment on above: Performed By: #### C MREP #### [facility] [address] [place] [address] Dr. Sayda Kapoor EO # 0.1 103/ul Normal 0.0-0.7 [facility] Comment on above: Performed By: #### C MREP #### [facility] [address] [place] [address] Dr. Sayda Kapoor Eosinophils/100 WBC (Bld) 1.4 % Normal 0.9-7.0 [facility] Comment on above: Performed By: #### C MREP #### [facility] [address] [place] [address] Dr. Sayda Kapoor Erythrocyte distribution width (RBC) [Ratio] 15.9 % Critically high 11.0-15.0 [facility] Comment on above: Performed By: #### C MREP #### [facility] [address] [place] [address] Dr. Sayda Kapoor Hematocrit (Bld) [Volume fraction] 31.5 % Critically low 42.0-54.0 [facility] Comment on above: Performed By: #### C MREP #### [facility] [address] [place] [address] Dr. Sayda Kapoor Hemoglobin (Bld) [Mass/Vol] 9.1 g/dL Critically low 14.0-18.0 [facility] Comment on above: Performed By: #### C MREP #### [facility] [address] [place] [address] Dr. Sayda Kapoor IG # 0.20 10e3/ul Critically high 0.00-0.03 [facility] Comment on above: Performed By: #### C MREP #### [facility] [address] [address] [address] Sayda Kapoor IG % 2.3 % Critically high 0.0-0.5 [facility] Comment on above: Performed By: #### C MREP #### [facility] [address] [address] [address] Sayda Kapoor LYMPH # 0.8 103/ul Critically low 1.2-3.8 [facility] Comment on above: Performed By: #### C MREP #### [facility] [address] [address] [address] Sayda Kapoor Lymphocytes/100 WBC (Bld) 9.4 % Critically low 20.5-60.0 [facility] Comment on above: Performed By: #### C MREP #### [facility] [address] [place] [address] Dr. Sayda Kapoor MANUAL DIFF REQ NO Normal [facility] Comment on above: Performed By: #### C MREP #### [facility] [address] [address] [address] Sayda Kapoor MCH (RBC) [Entitic mass] 22.9 pg Critically low 25.9-34.0 [facility] Comment on above: Performed By: #### C MREP #### [facility] [address] [place] [address] Dr. Sayda Kapoor MCHC (RBC) [Mass/Vol] 28.9 g/dL Critically low 29.9-35.2 [facility] Comment on above: Performed By: #### C MREP #### [facility] [address] [place] [address] Dr. Sayda Kapoor MCV (RBC) [Entitic vol] 79.1 fL Critically low 80.0-94. 0 [facility] Comment on above: Performed By: #### C MREP #### [facility] [address] [place] [address] Dr. Sayda Kapoor MONO # 0.6 103/ul Normal 0.3-0.8 [facility] Comment on above: Performed By: #### C MREP #### [facility] [address] [address] [address] Sayda Kapoor Monocytes/100 WBC (Bld) 7.2 % Normal 1.7-12.0 [facility] Comment on above: Performed By: #### C MREP #### [facility] [address] [place] [address] Dr. Sayda Kapoor NEUT # 6.9 103/ul Critically high 1.4-6.5 [facility] Comment on above: Performed By: #### C MREP #### [facility] [address] [place] [address] Dr. Sayda Kapoor Neutrophils/100 WBC (Bld) 79.0 % Critically high 43.0-75.0 [facility] Comment on above: Performed By: #### C MREP #### [facility] [address] [place] [address] Dr. Sayda Kapoor Platelet mean volume (Bld) [Entitic vol] 9.1 fL Critically low 9.5-13.5 [facility] Comment on above: Performed By: #### C MREP #### [facility] [address] [place] [address] Dr. Sayda Kapoor PLT 416 103/ul Normal 150-450 [facility] Comment on above: Performed By: #### C MREP #### [facility] [address] [place] [address] Dr. Sayda Kapoor RBC 3.98 106/ul Critically low 4.70-6.10 [facility] Comment on above: Performed By: #### C MREP #### [facility] [address] [place] [address] Dr. Sayda Kapoor WBC 8.8 103/ul Normal 4.0-11.0 [facility] Comment on above: Performed By: #### C MREP #### [facility] [address] [place] [address] Dr. Sayda Kapoor PROF CHEM 8 (BAS METB)on Anion gap [Moles/Vol] 9.0 mmol/L Normal [facility] Comment on above: Performed By: #### B DIETIST, CMP, LIPA, TONI #### [facility] [address] [place] [address] Dr. Sayda Kapoor Calcium [Mass/Vol] 8.2 mg/dL Critically low 8.5-10.1 [facility] Comment on above: Performed By: #### B DIETIST, CMP, LIPA, TONI #### [facility] [address] [place] [address] Dr. Sayda Kapoor Chloride [Moles/Vol] 104 mmol/L Normal 98-107 [facility] Comment on above: Performed By: #### B DIETIST, CMP, LIPA, TONI #### [facility] [address] [place] [address] Dr. Sayda Kapoor CO2 [Moles/Vol] 32.5 mmol/L Critically high 21.0-32.0 [facility] Comment on above: Performed By: #### B DIETIST, CMP, LIPA, TONI #### [facility] [address] [place] [address] Dr. Sayda Kapoor Creatinine [Mass/Vol] 0.93 mg/dL Normal 0.70-1.30 [facility] Comment on above: Performed By: #### B DIETIST, CMP, LIPA, TONI #### [facility] [address] [place] [address] Dr. Sayda Kapoor EGFR-AF SOUTH KOREAN >60 Normal >=60 [facility] Comment on above: Performed By: #### B DIETIST, CMP, LIPA, TONI #### [facility] [address] [place] [address] Dr. Sayda Kapoor EGFR-NON AF [place]OU[place]OREAN >60 Normal >=60 [facility] Comment on above: Performed By: #### B DIETIST, CMP, LIPA, TONI #### [facility] [address] [place] [address] Dr. Sayda Kapoor Glucose [Mass/Vol] 145 mg/dL Critically high 74-106 [facility] Comment on above: Performed By: #### B DIETIST, CMP, LIPA, TONI #### [facility] [address] [place] [address] Dr. Sayda Kapoor Potassium [Moles/Vol] 3.5 mmol/L Normal 3.5-5.1 [facility] Comment on above: Performed By: #### B DIETIST, CMP, LIPA, TONI #### [facility] [address] [place] [address] Dr. Sayda Kapoor Sodium [Moles/Vol] 142 mmol/L Normal 136-145 [facility] Comment on above: Performed By: #### B DIETIST, CMP, LIPA, TONI #### [facility] [address] [place] [address] Dr. Sayda Kapoor Urea nitrogen [Mass/Vol] 20.0 mg/dL Critically high 7.0-18.0 [facility] Comment on above: Performed By: #### B DIETIST, CMP, LIPA, TONI #### [facility] [address] [place] [address] Dr. Sayda Kapoor Urea nitrogen/Creatinine [Mass ratio] 21.5 mg/mg Normal [facility] Comment on above: Performed By: #### B DIETIST, CMP, LIPA, TONI #### [facility] [address] [place] [address] Dr. Sayda Kapoor BNPon 10-23-2022 Natriuretic peptide B (Bld) [Mass/Vol] 2297.0 pg/mL Critically high <=900.0 [facility] Comment on above: Performed By: #### C MREP #### [facility] [address] [place] [address] Dr. Sayda Kapoor CBC AUTO DIFFon 10-23-2022 BASO # 0.1 103/ul Normal 0.0-0.1 [facility] Comment on above: Performed By: #### D IG #### [facility] [address] [place] [address] Dr. Sayda Kapoor Basophils/100 WBC (Bld) 0.7 % Normal 0.2-2.0 [facility] Comment on above: Performed By: #### D IG #### [facility] [address] [place] [address] Dr. Sayda Kapoor EO # 0.1 103/ul Normal 0.0-0.7 [facility] Comment on above: Performed By: #### D IG #### [facility] [address] [address] [address] Sayda Kapoor Eosinophils/100 WBC (Bld) 1.9 % Normal 0.9-7.0 [facility] Comment on above: Performed By: #### D IG #### [facility] [address] [place] [address] Dr. Sayda Kapoor Erythrocyte distribution width (RBC) [Ratio] 15.6 % Critically high 11.0-15.0 [facility] Comment on above: Performed By: #### D IG #### [facility] [address] [place] [address] Dr. Sayda Kapoor Hematocrit (Bld) [Volume fraction] 29.1 % Critically low 42.0-54.0 [facility] Comment on above: Performed By: #### D IG #### [facility] [address] [place] [address] Dr. Sayda Kapoor Hemoglobin (Bld) [Mass/Vol] 8.4 g/dL Critically low 14.0-18.0 [facility] Comment on above: Performed By: #### D IG #### [facility] [address] [place] [address] Dr. Sayda Kapoor IG # 0.06 10e3/ul Critically high 0.00-0.03 [facility] Comment on above: Performed By: #### D IG #### [facility] [address] [place] [address] Dr. Sayda Kapoor IG % 0.8 % Critically high 0.0-0.5 [facility] Comment on above: Performed By: #### D IG #### [facility] [address] [address] [address] Sayda Kapoor LYMPH # 1.1 103/ul Critically low 1.2-3.8 [facility] Comment on above: Performed By: #### D IG #### [facility] [address] [place] [address] Dr. Sayda Kapoor Lymphocytes/100 WBC (Bld) 14.8 % Critically low 20.5-60.0 [facility] Comment on above: Performed By: #### D IG #### [facility] [address] [address] [address] Sayda Kapoor MANUAL DIFF REQ NO Normal [facility] Comment on above: Performed By: #### D IG #### [facility] [address] [address] [address] Sayda Kapoor MCH (RBC) [Entitic mass] 23.3 pg Critically low 25.9-34.0 [facility] Comment on above: Performed By: #### D IG #### [facility] [address] [place] [address] Dr. Sayda Kapoor MCHC (RBC) [Mass/Vol] 28.9 g/dL Critically low 29.9-35.2 [facility] Comment on above: Performed By: #### D IG #### [facility] [address] [place] [address] Dr. Sayda Kapoor MCV (RBC) [Entitic vol] 80.6 fL Normal 80.0-94.0 [facility] Comment on above: Performed By: #### D IG #### [facility] [address] [place] [address] Dr. Sayda Kapoor MONO # 0.7 103/ul Normal 0.3-0.8 [facility] Comment on above: Performed By: #### D IG #### [facility] [address] [place] [address] Dr. Sayda Kapoor Monocytes/100 WBC (Bld) 8.7 % Normal 1.7-12.0 [facility] Comment on above: Performed By: #### D IG #### [facility] [address] [place] [address] Dr. Sayda Kapoor NEUT # 5.5 103/ul Normal 1.4-6.5 [facility] Comment on above: Performed By: #### D IG #### [facility] [address] [place] [address] Dr. Sayda Kapoor Neutrophils/100 WBC (Bld) 73.1 % Normal 43.0-75.0 [facility] Comment on above: Performed By: #### D IG #### [facility] [address] [address] [address] Sayda Kapoor Platelet mean volume (Bld) [Entitic vol] 9.5 fL Normal 9.5-13.5 [facility] Comment on above: Performed By: #### D IG #### [facility] [address] [address] [address] Sayda Kapoor PLT 281 103/ul Normal 150-450 [facility] Comment on above: Performed By: #### D IG #### [facility] [address] [address] [address] Sayda Kapoor RBC 3.61 106/ul Critically low 4.70-6.10 [facility] Comment on above: Performed By: #### D IG #### [facility] [address] [place] [address] Dr. Sayda Kapoor WBC 7.6 103/ul Normal 4.0-11.0 [facility] Comment on above: Performed By: #### D IG #### [facility] [address] [place] [address] Dr. Sayda Kapoor DIGOXINon 10-23-2022 DIG 0.9 ng/mL Normal 0.9-2.0 [facility] Comment on above: Performed By: #### D IG #### [facility] [address] [place] [address] Dr. Sayda Kapoor PROF 14(COMP METB)on 023 Albumin [Mass/Vol] 2.4 g/dL Critically low 3.4-5.0 [facility] Comment on above: Performed By: #### C MREP #### [facility] [address] [address] [address] Sayda Kapoor Albumin/Globulin [Mass ratio] 0.9 {ratio} Normal [facility] Comment on above: Performed By: #### C MREP #### [facility] [address] [place] [address] Dr. Sayda Kapoor ALP [Catalytic activity/Vol] 62 U/L Normal 46-116 [facility] Comment on above: Performed By: #### C MREP #### [facility] [address] [address] [address] Sayda Kapoor ALT [Catalytic activity/Vol] 33 U/L Normal 16-63 [facility] Comment on above: Performed By: #### C MREP #### [facility] [address] [address] [address] Sayda Kapoor Anion gap [Moles/Vol] 8.2 mmol/L Normal [facility] Comment on above: Performed By: #### C MREP #### [facility] [address] [address] [address] Sayda Kapoor AST [Catalytic activity/Vol] 15 U/L Normal 15-37 [facility] Comment on above: Performed By: #### C MREP #### [facility] [address] [address] [address] Sayda Kapoor Bilirubin [Mass/Vol] 1.3 mg/dL Critically high 0.2-1.0 [facility] Comment on above: Performed By: #### C MREP #### [facility] [address] [address] [address] Sayda Kapoor Calcium [Mass/Vol] 7.6 mg/dL Critically low 8.5-10.1 [facility] Comment on above: Performed By: #### C MREP #### [facility] [address] [address] [address] Sayda Kapoor Chloride [Moles/Vol] 105 mmol/L Normal 98-107 [facility] Comment on above: Performed By: #### C MREP #### [facility] [address] [address] [address] Sayda Kapoor CO2 [Moles/Vol] 30.2 mmol/L Normal 21.0-32.0 [facility] Comment on above: Performed By: #### C MREP #### [facility] [address] [address] [address] Sayda Kapoor Creatinine [Mass/Vol] 1.07 mg/dL Normal 0.70-1.30 [facility] Comment on above: Performed By: #### C MREP #### [facility] [address] [address] [address] Sayda Kapoor EGFR-AF [place]OU[place] KORE[place] >60 Normal >=60 [facility] Comment on above: Performed By: #### C MREP #### [facility] [address] [address] [address] Sayda Kapoor EGFR-NON AF [place]ORE[place] >60 Normal >=60 [facility] Comment on above: Performed By: #### C MREP #### [facility] [address] [address] [address] Sayda Kapoor Globulin (S) [Mass/Vol] 2.7 g/dL Normal [facility] Comment on above: Performed By: #### C MREP #### [facility] [address] [address] [address] Sayda Kapoor Glucose [Mass/Vol] 101 mg/dL Normal 74-106 [facility] Comment on above: Performed By: #### C MREP #### [facility] [address] [address] [address] Sayda Kapoor Potassium [Moles/Vol] 3.4 mmol/L Critically low 3.5-5.1 [facility] Comment on above: Performed By: #### C MREP #### [facility] [address] [address] [address] Sayda Kapoor Protein [Mass/Vol] 5.1 g/dL Critically low 6.4-8.2 [facility] Comment on above: Performed By: #### C MREP #### [facility] [address] [address] [address] Sayda Kapoor Sodium [Moles/Vol] 140 mmol/L Normal 136-145 [facility] Comment on above: Performed By: #### C MREP #### [facility] [address] [address] [address] Sayda Kapoor Urea nitrogen [Mass/Vol] 20.0 mg/dL Critically high 7.0-18.0 [facility] Comment on above: Performed By: #### C MREP #### [facility] [address] [place] [address] Dr. Sayda Kapoor Urea nitrogen/Creatinine [Mass ratio] 18.7 mg/mg Normal [facility] Comment on above: Performed By: #### C MREP #### [facility] [address] [place] [address] Dr. Sayda Kapoor T3, TOTAL (TRIIODOTHYRONINE) on 10-23-2022 T3, TOTAL 93 ng/dL Normal 71-180 [facility] Comment on above: Performed By: #### B DIETIST, CMP, LIPA, TONI #### [facility] [address] [place] [address] Dr. Sayda Kapoor BNPon 10-22-2022 Natriuretic peptide B (Bld) [Mass/Vol] 2419.0 pg/mL Critically high <=900.0 [facility] Comment on above: Performed By: #### B DIETIST, CMP, LIPA, TONI #### [facility] [address] [place] [address] Dr. Sayda Kapoor CARDIAC BETTE 3-6on 3 CK [Catalytic activity/Vol] 88 U/L Normal 39-308 [facility] Comment on above: Performed By: #### Q NTTB #### [facility] [address] [place] [address] Dr. Sayda Kapoor CK.MB [Mass/Vol] 1.44 ng/mL Normal <=3.60 [facility] Comment on above: Performed By: #### Q NTTB #### [facility] [address] [place] [address] Dr. Sayda Kapoor HSTROP 15.1 pg/mL Normal 4.0-76.1 [facility] Comment on above: Result Comment: CUT- OFF POINTS HAVE BEEN ESTABLISHED BASED ON THE [employer] DEFINITIONS OF MYOCARDIAL INFARCTION. THE UPPER REFERENCE LIMIT (URL) OF TROPONIN, DEFINED THE 99TH PERCENTILE OF cTnI DISTRIBUTION IN A REFERENCE POPULATION, HAS BEEN CONFIRMED THE DECISION THRESHOLD FOR IN DIAGNOSIS. Performed By: #### Q NTTB #### [facility] [address] [place] [address] Dr. Sayda Kapoor CBC AUTO DIFFon 10-22-2022 BASO # 0.1 103/ul Normal 0.0-0.1 [facility] Comment on above: Performed By: #### C BC #### [facility] [address] [place] [address] Dr. Sayda Kapoor Basophils/100 WBC (Bld) 0.5 % Normal 0.2-2.0 [facility] Comment on above: Performed By: #### C BC #### [facility] [address] [place] [address] Dr. Sayda Kapoor EO # 0.2 103/ul Normal 0.0-0.7 [facility] Comment on above: Performed By: #### C BC #### [facility] [address] [place] [address] Dr. Sayda Kapoor Eosinophils/100 WBC (Bld) 1.8 % Normal 0.9-7.0 [facility] Comment on above: Performed By: #### C BC #### [facility] [address] [place] [address] Dr. Sayda Kapoor Erythrocyte distribution width (RBC) [Ratio] 15.7 % Critically high 11.0-15.0 [facility] Comment on above: Performed By: #### C BC #### [facility] [address] [place] [address] Dr. Sayda Kapoor Hematocrit (Bld) [Volume fraction] 27.0 % Critically low 42.0-54.0 [facility] Comment on above: Performed By: #### C BC #### [facility] [address] [place] [address] Dr. Sayda Kapoor Hemoglobin (Bld) [Mass/Vol] 7.9 g/dL Critically low 14.0-18.0 [facility] Comment on above: Performed By: #### C BC #### [facility] [address] [place] [address] Dr. Sayda Kapoor IG # 0.06 10e3/ul Critically high 0.00-0.03 [facility] Comment on above: Performed By: #### C BC #### [facility] [address] [place] [address] Dr. Sayda Kapoor IG % 0.6 % Critically high 0.0-0.5 [facility] Comment on above: Performed By: #### C BC #### [facility] [address] [place] [address] Dr. Sayda Kapoor LYMPH # 1.2 103/ul Normal 1.2-3.8 [facility] Comment on above: Performed By: #### C BC #### [facility] [address] [place] [address] Dr. Sayda Kapoor Lymphocytes/100 WBC (Bld) 13.0 % Critically low 20.5-60.0 [facility] Comment on above: Performed By: #### C BC #### [facility] [address] [place] [address] Dr. Sayda Kapoor MANUAL DIFF REQ NO Normal [facility] Comment on above: Performed By: #### C BC #### [facility] [address] [place] [address] Dr. Sayda Kapoor MCH (RBC) [Entitic mass] 23.1 pg Critically low 25.9-34.0 [facility] Comment on above: Performed By: #### C BC #### [facility] [address] [place] [address] Dr. Sayda Kapoor MCHC (RBC) [Mass/Vol] 29.3 g/dL Critically low 29.9-35.2 [facility] Comment on above: Performed By: #### C BC #### [facility] [address] [place] [address] Dr. Sayda Kapoor MCV (RBC) [Entitic vol] 78.9 fL Critically low 80.0-94. 0 [facility] Comment on above: Performed By: #### C BC #### [facility] [address] [place] [address] Dr. Sayda Kapoor MONO # 0.8 103/ul Normal 0.3-0.8 [facility] Comment on above: Performed By: #### C BC #### [facility] [address] [place] [address] Dr. Sayda Kapoor Monocytes/100 WBC (Bld) 8.0 % Normal 1.7-12.0 [facility] Comment on above: Performed By: #### C BC #### [facility] [address] [place] [address] Dr. Sayda Kapoor NEUT # 7.2 103/ul Critically high 1.4-6.5 [facility] Comment on above: Performed By: #### C BC #### [facility] [address] [place] [address] Dr. Sayda Kapoor Neutrophils/100 WBC (Bld) 76.1 % Critically high 43.0-75.0 [facility] Comment on above: Performed By: #### C BC #### [facility] [address] [place] [address] Dr. Sayda Kapoor Platelet mean volume (Bld) [Entitic vol] 9.9 fL Normal 9.5-13.5 [facility] Comment on above: Performed By: #### C BC #### [facility] [address] [place] [address] Dr. Sayda Kapoor PLT 320 103/ul Normal 150-450 [facility] Comment on above: Performed By: #### C BC #### [facility] [address] [place] [address] Dr. Sayda Kapoor RBC 3.42 106/ul Critically low 4.70-6.10 [facility] Comment on above: Performed By: #### C BC #### [facility] [address] [place] [address] Dr. Sayda Kapoor WBC 9.4 103/ul Normal 4.0-11.0 [facility] Comment on above: Performed By: #### C BC #### [facility] [address] [place] [address] Dr. Sayda Kapoor BASO # 0.0 103/ul Normal 0.0-0.1 [facility] Comment on above: Performed By: #### D IG #### [facility] [address] [place] [address] Dr. Sayda Kapoor Basophils/100 WBC (Bld) 0.4 % Normal 0.2-2.0 [facility] Comment on above: Performed By: #### D IG #### [facility] [address] [place] [address] Dr. Sayda Kapoor EO # 0.1 103/ul Normal 0.0-0.7 [facility] Comment on above: Performed By: #### D IG #### [facility] [address] [place] [address] Dr. Sayda Kapoor Eosinophils/100 WBC (Bld) 1.0 % Normal 0.9-7.0 [facility] Comment on above: Performed By: #### D IG #### [facility] [address] [place] [address] Dr. Sayda Kapoor Erythrocyte distribution width (RBC) [Ratio] 15.8 % Critically high 11.0-15.0 [facility] Comment on above: Performed By: #### D IG #### [facility] [address] [place] [address] Dr. Sayda Kapoor Hematocrit (Bld) [Volume fraction] 28.0 % Critically low 42.0-54.0 [facility] Comment on above: Performed By: #### D IG #### [facility] [address] [place] [address] Dr. Sayda Kapoor Hemoglobin (Bld) [Mass/Vol] 8.0 g/dL Critically low 14.0-18.0 [facility] Comment on above: Performed By: #### D IG #### [facility] [address] [place] [address] Dr. Sayda Kapoor IG # 0.03 10e3/ul Normal 0.00-0.03 [facility] Comment on above: Performed By: #### D IG #### [facility] [address] [place] [address] Dr. Sayda Kapoor IG % 0.4 % Normal 0.0-0.5 [facility] Comment on above: Performed By: #### D IG #### [facility] [address] [place] [address] Dr. Sayda Kapoor LYMPH # 1.2 103/ul Normal 1.2-3.8 [facility] Comment on above: Performed By: #### D IG #### [facility] [address] [address] [address] Sayda Kapoor Lymphocytes/100 WBC (Bld) 14.3 % Critically low 20.5-60.0 [facility] Comment on above: Performed By: #### D IG #### [facility] [address] [place] [address] Dr. Sayda Kapoor MANUAL DIFF REQ NO Normal [facility] Comment on above: Performed By: #### D IG #### [facility] [address] [place] [address] Dr. Sayda Kapoor MCH (RBC) [Entitic mass] 23.3 pg Critically low 25.9-34.0 [facility] Comment on above: Performed By: #### D IG #### [facility] [address] [place] [address] Dr. Sayda Kapoor MCHC (RBC) [Mass/Vol] 28.6 g/dL Critically low 29.9-35.2 [facility] Comment on above: Performed By: #### D IG #### [facility] [address] [place] [address] Dr. Sayda Kapoor MCV (RBC) [Entitic vol] 81.4 fL Normal 80.0-94.0 [facility] Comment on above: Performed By: #### D IG #### [facility] [address] [place] [address] Dr. Sayda Kapoor MONO # 0.6 103/ul Normal 0.3-0.8 [facility] Comment on above: Performed By: #### D IG #### [facility] [address] [place] [address] Dr. Sayda Kapoor Monocytes/100 WBC (Bld) 7.1 % Normal 1.7-12.0 [facility] Comment on above: Performed By: #### D IG #### [facility] [address] [place] [address] Dr. Sayda Kapoor NEUT # 6.2 103/ul Normal 1.4-6.5 [facility] Comment on above: Performed By: #### D IG #### [facility] [address] [address] [address] Sayda Kapoor Neutrophils/100 WBC (Bld) 76.8 % Critically high 43.0-75.0 [facility] Comment on above: Performed By: #### D IG #### [facility] [address] [address] [address] Sayda Kapoor Platelet mean volume (Bld) [Entitic vol] 9.5 fL Normal 9.5-13.5 [facility] Comment on above: Performed By: #### D IG #### [facility] [address] [id number] Sayda Kapoor PLT 252 103/ul Normal 150-450 [facility] Comment on above: Performed By: #### D IG #### [facility] [address] [place] [address] Dr. Sayda Kapoor RBC 3.44 106/ul Critically low 4.70-6.10 [facility] Comment on above: Performed By: #### D IG #### [facility] [address] [id number] Sayda Kapoor WBC 8.1 103/ul Normal 4.0-11.0 [facility] Comment on above: Performed By: #### D IG #### [facility] [address] [place] [address] Dr. Sayda Kapoor CTA CHEST WO W CONon 10-22- 023 CTA CHEST WO W CON EXAMINATION: [...] Date: 2022-10-22 09:30 Normal [facility] CULTURE URINEon 10-22-2022 CULTURE URINE Culture Observations: NO GROWTH. Normal [facility] Comment on above: Performed By: #### D IG #### [facility] [address] [place] [address] Dr. Sayda Kapoor DIGOXINon 10-22-2022 DIG 1.4 ng/mL Normal 0.9-2.0 [facility] Comment on above: Performed By: #### B DIETIST, CMP, LIPA, TONI #### [facility] [address] [address] [address] Sayda Kapoor ECHOCARDIO M/2D COMPLETEon 0 10-22-2022 ECHOCARDIO M/2D COMPLETE Patient: AYO ALICIA Exam Date: 10/22/2022 : 1960 Gender:M Ordering : DR PERICO MCCABE . Admission #: [id number] Family : DR GLORIA PAGAN M.D. Order #: [id number] CLICK HERE TO VIEW EXAM ECHOCARDIOGRAM REPORT [...] Whitney M.D. on 10/22/2022 at 16:41 Normal [facility] PROF 14(COMP METB)on 023 Albumin [Mass/Vol] 2.6 g/dL Critically low 3.4-5.0 [facility] Comment on above: Performed By: #### B DIETIST, CMP, LIPA, TONI #### [facility] [address] [place] [address] Dr. Sayda Kapoor Albumin/Globulin [Mass ratio] 1.0 {ratio} Normal [facility] Comment on above: Performed By: #### B DIETIST, CMP, LIPA, TONI #### [facility] [address] [place] [address] Dr. Sayda Kapoor ALP [Catalytic activity/Vol] 61 U/L Normal 46-116 [facility] Comment on above: Performed By: #### B DIETIST, CMP, LIPA, TONI #### [facility] [address] [place] [address] Dr. Sayda Kapoor ALT [Catalytic activity/Vol] 37 U/L Normal 16-63 [facility] Comment on above: Performed By: #### B DIETIST, CMP, LIPA, TONI #### [facility] [address] [place] [address] Dr. Sayda Kapoor Anion gap [Moles/Vol] 11.4 mmol/L Normal [facility] Comment on above: Performed By: #### B DIETIST, CMP, LIPA, TONI #### [facility] [address] [place] [address] Dr. Sayda Kapoor AST [Catalytic activity/Vol] 20 U/L Normal 15-37 [facility] Comment on above: Performed By: #### B DIETIST, CMP, LIPA, TONI #### [facility] [address] [place] [address] Dr. Sayda Kapoor Bilirubin [Mass/Vol] 1.4 mg/dL Critically high 0.2-1.0 [facility] Comment on above: Performed By: #### B DIETIST, CMP, LIPA, TONI #### [facility] [address] [place] [address] Dr. Sayda Kapoor Calcium [Mass/Vol] 8.1 mg/dL Critically low 8.5-10.1 [facility] Comment on above: Performed By: #### B DIETIST, CMP, LIPA, TONI #### [facility] [address] [place] [address] Dr. Sayda Kapoor Chloride [Moles/Vol] 104 mmol/L Normal 98-107 [facility] Comment on above: Performed By: #### B DIETIST, CMP, LIPA, TONI #### [facility] [address] [place] [address] Dr. Sayda Kapoor CO2 [Moles/Vol] 27.6 mmol/L Normal 21.0-32.0 [facility] Comment on above: Performed By: #### B DIETIST, CMP, LIPA, TONI #### [facility] [address] [place] [address] Dr. Sayda Kapoor Creatinine [Mass/Vol] 1.07 mg/dL Normal 0.70-1.30 [facility] Comment on above: Performed By: #### B DIETIST, CMP, LIPA, TONI #### [facility] [address] [place] [address] Dr. Sayda Kapoor EGFR-AF SOUTH KOREAN >60 Normal >=60 [facility] Comment on above: Performed By: #### B DIETIST, CMP, LIPA, TONI #### [facility] [address] [place] [address] Dr. Sayda Kapoor EGFR-NON AF [place]OU[place]OREAN >60 Normal >=60 [facility] Comment on above: Performed By: #### B DIETIST, CMP, LIPA, TONI #### [facility] [address] [place] [address] Dr. Sayda Kapoor Globulin (S) [Mass/Vol] 2.5 g/dL Normal [facility] Comment on above: Performed By: #### B DIETIST, CMP, LIPA, TONI #### [facility] [address] [place] [address] Dr. Sayda Kapoor Glucose [Mass/Vol] 96 mg/dL Normal 74-106 [facility] Comment on above: Performed By: #### B DIETIST, CMP, LIPA, TONI #### [facility] [address] [place] [address] Dr. Sayda Kapoor Potassium [Moles/Vol] 4.0 mmol/L Normal 3.5-5.1 [facility] Comment on above: Performed By: #### B DIETIST, CMP, LIPA, TONI #### [facility] [address] [place] [address] Dr. Sayda Kapoor Protein [Mass/Vol] 5.1 g/dL Critically low 6.4-8.2 [facility] Comment on above: Performed By: #### B DIETIST, CMP, LIPA, TONI #### [facility] [address] [place] [address] Dr. Sayda Kapoor Sodium [Moles/Vol] 139 mmol/L Normal 136-145 [facility] Comment on above: Performed By: #### B DIETIST, CMP, LIPA, TONI #### [facility] [address] [place] [address] Dr. Sayda Kapoor Urea nitrogen [Mass/Vol] 25.0 mg/dL Critically high 7.0-18.0 [facility] Comment on above: Performed By: #### B DIETIST, CMP, LIPA, TONI #### [facility] [address] [place] [address] Dr. Sayda Kapoor Urea nitrogen/Creatinine [Mass ratio] 23.4 mg/mg Normal [facility] Comment on above: Performed By: #### B DIETIST, CMP, LIPA, TONI #### [facility] [address] [place] [address] Dr. Sayda Kapoor UA RANDOM W/MICROSCOPICon BACTERIA NONE SEEN Normal NONE SEEN [facility] Comment on above: Performed By: #### D IG #### [facility] [address] [place] [address] Dr. Sayda Kapoor Bilirubin Ql (U) Negative Normal NEGATIVE [facility] Comment on above: Performed By: #### D IG #### [facility] [address] [place] [address] Dr. Sayda Kapoor CAST NONE SEEN Normal NONE SEEN [facility] Comment on above: Performed By: #### D IG #### [facility] [address] [place] [address] Dr. Sayda Kapoor Clarity (U) CLEAR Normal CLEAR [facility] Comment on above: Performed By: #### D IG #### [facility] [address] [place] [address] Dr. Sayda Kapoor Color (U) YELLOW Normal YELLOW [facility] Comment on above: Performed By: #### D IG #### [facility] [address] [place] [address] Dr. Sayda Kapoor Crystals LM Nom (Urine sed) NONE SEEN Normal NONE SEEN [facility] Comment on above: Performed By: #### D IG #### [facility] [address] [place] [address] Dr. Sayda Kapoor Epithelial cells LM Ql (Urine sed) NONE SEEN Normal NONE SEEN /RARE [facility] Comment on above: Performed By: #### D IG #### [facility] [address] [place] [address] Dr. Sayda Kapoor Glucose Ql (U) Negative Normal NEGATIVE [facility] Comment on above: Performed By: #### D IG #### [facility] [address] [place] [address] Dr. Sayda Kapoor Hemoglobin Ql (U) TRACE-INTACT Abnormal NEGATIVE [facility] Comment on above: Performed By: #### D IG #### [facility] [address] [place] [address] Dr. Sayda Kapoor Ketones Ql (U) Negative Normal NEGATIVE [facility] Comment on above: Performed By: #### D IG #### [facility] [address] [place] [address] Dr. Sayda Kapoor LEUKOCYTES Negative Normal NEGATIVE [facility] Comment on above: Performed By: #### D IG #### [facility] [address] [place] [address] Dr. Sayda Kapoor MUCOUS TRACE Abnormal NONE SEEN [facility] Comment on above: Performed By: #### D IG #### [facility] [address] [place] [address] Dr. Sayda Kapoor Nitrite Ql (U) Negative Normal NEGATIVE [facility] Comment on above: Performed By: #### D IG #### [facility] [address] [place] [address] Dr. Sayda Kapoor pH (U) 6.0 [pH] Normal 5-9 [facility] Comment on above: Performed By: #### D IG #### [facility] [address] [place] [address] Dr. Sayda Kapoor RBC 0-2 Normal 0-2 [facility] Comment on above: Performed By: #### D IG #### [facility] [address] [place] [address] Dr. Sayda Kapoor SPEC GRAVITY 1.020 Normal 1.005-<=1.02 5 [facility] Comment on above: Performed By: #### D IG #### [facility] [address] [place] [address] Dr. Sayda Kapoor UA PROTEIN 30 mg/dl Abnormal NEGATIVE/ TRACE [facility] Comment on above: Performed By: #### D IG #### [facility] [address] [place] [address] Dr. Sayda Kapoor Urobilinogen Qn (U) 1.0 {Rosi'U}/dL Normal 0.2 - 1. 0 [facility] Comment on above: Performed By: #### D IG #### [facility] [address] [place] [address] Dr. Sayda Kapoor WBC NONE SEEN Normal NONE SEEN [facility] Comment on above: Performed By: #### D IG #### [facility] [address] [place] [address] Dr. Sayda Kapoor BNPon 10-21-2022 Natriuretic peptide B (Bld) [Mass/Vol] 4504.0 pg/mL Critically high <=900.0 [facility] Comment on above: Performed By: #### Q NTTB #### [facility] [address] [place] [address] Dr. Sayda Kapoor CARDIAC BETTE 3-6on 3 CK [Catalytic activity/Vol] 111 U/L Normal 39-308 [facility] Comment on above: Performed By: #### C MREP #### [facility] [address] [place] [address] Dr. Sayda Kapoor CK.MB [Mass/Vol] 1.72 ng/mL Normal <=3.60 [facility] Comment on above: Performed By: #### C MREP #### [facility] [address] [place] [address] Dr. Sayda Kapoor HSTROP 15.2 pg/mL Normal 4.0-76.1 [facility] Comment on above: Result Comment: CUT- OFF POINTS HAVE BEEN ESTABLISHED BASED ON THE FOURTH UNIVERSAL DEFINITIONS OF MYOCARDIAL INFARCTION. THE UPPER REFERENCE LIMIT (URL) OF TROPONIN, DEFINED THE 99TH PERCENTILE OF cTnI DISTRIBUTION IN A REFERENCE POPULATION, HAS BEEN CONFIRMED THE DECISION THRESHOLD FOR IN DIAGNOSIS. Performed By: #### C MREP #### [facility] [address] [place] [address] Dr. Sayda Kapoor CARDIAC BETTE ADMITon 023 CK [Catalytic activity/Vol] 114 U/L Normal 39-308 [facility] Comment on above: Performed By: #### Q NTTB #### [facility] [address] [place] [address] Dr. Sayda Kapoor CK.MB [Mass/Vol] 1.94 ng/mL Normal <=3.60 [facility] Comment on above: Performed By: #### Q NTTB #### [facility] [address] [place] [address] Dr. Sayda Kapoor HSTROP 17.4 pg/mL Normal 4.0-76.1 [facility] Comment on above: Result Comment: CUT- OFF POINTS HAVE BEEN ESTABLISHED BASED ON THE FOURTH UNIVERSAL DEFINITIONS OF MYOCARDIAL INFARCTION. THE UPPER REFERENCE LIMIT (URL) OF TROPONIN, DEFINED THE 99TH PERCENTILE OF cTnI DISTRIBUTION IN A REFERENCE POPULATION, HAS BEEN CONFIRMED THE DECISION THRESHOLD FOR IN DIAGNOSIS. Performed By: #### Q NTTB #### [facility] [address] [place] [address] Dr. Sayda Kapoor TAIWO 105 ng/mL Critically high 16-96 [facility] Comment on above: Performed By: #### Q NTTB #### [facility] [address] [place] [address] Dr. Sayda Kapoor CBC AUTO DIFFon 10-21-2022 BASO # 0.0 103/ul Normal 0.0-0.1 [facility] Comment on above: Performed By: #### C MREP #### [facility] [address] [place] [address] Dr. Sayda Kapoor Basophils/100 WBC (Bld) 0.3 % Normal 0.2-2.0 [facility] Comment on above: Performed By: #### C MREP #### [facility] [address] [place] [address] Dr. Sayda Kapoor EO # 0.0 103/ul Normal 0.0-0.7 [facility] Comment on above: Performed By: #### C MREP #### [facility] [address] [place] [address] Dr. Sayda Kapoor Eosinophils/100 WBC (Bld) 0.1 % Critically low 0.9-7.0 [facility] Comment on above: Performed By: #### C MREP #### [facility] [address] [address] [address] Sayda Kapoor Erythrocyte distribution width (RBC) [Ratio] 15.6 % Critically high 11.0-15.0 [facility] Comment on above: Performed By: #### C MREP #### [facility] [address] [place] [address] Dr. Sayda Kapoor Hematocrit (Bld) [Volume fraction] 29.7 % Critically low 42.0-54.0 [facility] Comment on above: Performed By: #### C MREP #### [facility] [address] [place] [address] Dr. Sayda Kapoor Hemoglobin (Bld) [Mass/Vol] 8.7 g/dL Critically low 14.0-18.0 [facility] Comment on above: Performed By: #### C MREP #### [facility] [address] [place] [address] Dr. Sayda Kapoor IG # 0.06 10e3/ul Critically high 0.00-0.03 [facility] Comment on above: Performed By: #### C MREP #### [facility] [address] [place] [address] Dr. Sayda Kapoor IG % 0.6 % Critically high 0.0-0.5 [facility] Comment on above: Performed By: #### C MREP #### [facility] [address] [place] [address] Dr. Sayda Kapoor LYMPH # 1.0 103/ul Critically low 1.2-3.8 [facility] Comment on above: Performed By: #### C MREP #### [facility] [address] [place] [address] Dr. Sayda Kapoor Lymphocytes/100 WBC (Bld) 9.0 % Critically low 20.5-60.0 [facility] Comment on above: Performed By: #### C MREP #### [facility] [address] [place] [address] Dr. Sayda Kapoor MANUAL DIFF REQ NO Normal [facility] Comment on above: Performed By: #### C MREP #### [facility] [address] [address] [address] Sayda Kapoor MCH (RBC) [Entitic mass] 23.6 pg Critically low 25.9-34.0 [facility] Comment on above: Performed By: #### C MREP #### [facility] [address] [place] [address] Dr. Sayda Kapoor MCHC (RBC) [Mass/Vol] 29.3 g/dL Critically low 29.9-35.2 [facility] Comment on above: Performed By: #### C MREP #### [facility] [address] [place] [address] Dr. Sayda Kapoor MCV (RBC) [Entitic vol] 80.5 fL Normal 80.0-94.0 [facility] Comment on above: Performed By: #### C MREP #### [facility] [address] [place] [address] Dr. Sayda Kapoor MONO # 0.7 103/ul Normal 0.3-0.8 [facility] Comment on above: Performed By: #### C MREP #### [facility] [address] [place] [address] Dr. Sayda Kapoor Monocytes/100 WBC (Bld) 6.0 % Normal 1.7-12.0 [facility] Comment on above: Performed By: #### C MREP #### [facility] [address] [place] [address] Dr. Sayda Kapoor NEUT # 9.1 103/ul Critically high 1.4-6.5 [facility] Comment on above: Performed By: #### C MREP #### [facility] [address] [place] [address] Dr. Sayda Kapoor Neutrophils/100 WBC (Bld) 84.0 % Critically high 43.0-75.0 [facility] Comment on above: Performed By: #### C MREP #### [facility] [address] [place] [address] Dr. Sayda Kapoor Platelet mean volume (Bld) [Entitic vol] 10.1 fL Normal 9.5-13.5 [facility] Comment on above: Performed By: #### C MREP #### [facility] [address] [address] [address] Sayda Kapoor PLT 374 103/ul Normal 150-450 [facility] Comment on above: Performed By: #### C MREP #### [facility] [address] [address] [address] Sayda Kapoor RBC 3.69 106/ul Critically low 4.70-6.10 [facility] Comment on above: Performed By: #### C MREP #### [facility] [address] [address] [address] Sayda Kapoor WBC 10.8 103/ul Normal 4.0-11.0 [facility] Comment on above: Performed By: #### C MREP #### [facility] [address] [place] [address] Dr. Sayda Kapoor [facility]-03 SARS-CoV-2 (COVID-19) RNA KAT+probe Ql (Unsp spec) Not detected Normal NOT DETECTED [facility] Comment on above: Result Comment: [...] for this test is supported by the Regulatory Affairs Portfolio Leader of Health and Human Service's declaration that [...] By: #### D IG #### [facility] [address] [place] [address] Dr. Sayda Kpaoor LACTATE/LACTIC ACIDon 2022 Lactate [Moles/Vol] 2.5 mmol/L Critically high 0.4-1.9 [facility] Comment on above: Performed By: #### Q NTTB #### [facility] [address] [place] [address] Dr. Sayda Kapoor Lactate [Moles/Vol] 2.3 mmol/L Critically high 0.4-1.9 [facility] Comment on above: Performed By: #### B DIETIST, CMP, LIPA, TONI #### [facility] [address] [place] [address] Dr. Sayda Kapoor PROF 14(COMP METB)on 023 Albumin [Mass/Vol] 2.8 g/dL Critically low 3.4-5.0 [facility] Comment on above: Performed By: #### Q NTTB #### [facility] [address] [place] [address] Dr. Sayda Kapoor Albumin/Globulin [Mass ratio] 0.9 {ratio} Normal [facility] Comment on above: Performed By: #### Q NTTB #### [facility] [address] [place] [address] Dr. Sayda Kapoor ALP [Catalytic activity/Vol] 66 U/L Normal 46-116 [facility] Comment on above: Performed By: #### Q NTTB #### [facility] [address] [place] [address] Dr. Sayda Kapoor ALT [Catalytic activity/Vol] 41 U/L Normal 16-63 [facility] Comment on above: Performed By: #### Q NTTB #### [facility] [address] [place] [address] Dr. Sayda Kapoor Anion gap [Moles/Vol] 11.9 mmol/L Normal [facility] Comment on above: Performed By: #### Q NTTB #### [facility] [address] [place] [address] Dr. Sayda Kapoor AST [Catalytic activity/Vol] 22 U/L Normal 15-37 [facility] Comment on above: Performed By: #### Q NTTB #### [facility] [address] [address] [address] Sayda Kapoor Bilirubin [Mass/Vol] 1.3 mg/dL Critically high 0.2-1.0 [facility] Comment on above: Performed By: #### Q NTTB #### [facility] [address] [address] [address] Sayda Kapoor Calcium [Mass/Vol] 8.1 mg/dL Critically low 8.5-10.1 [facility] Comment on above: Performed By: #### Q NTTB #### [facility] [address] [address] [address] Sayda Kapoor Chloride [Moles/Vol] 105 mmol/L Normal 98-107 [facility] Comment on above: Performed By: #### Q NTTB #### [facility] [address] [place] [address] Dr. Sayda Kapoor CO2 [Moles/Vol] 27.4 mmol/L Normal 21.0-32.0 [facility] Comment on above: Performed By: #### Q NTTB #### [facility] [address] [place] [address] Dr. Sayda Kapoor Creatinine [Mass/Vol] 1.44 mg/dL Critically high 0.70-1.30 [facility] Comment on above: Performed By: #### Q NTTB #### [facility] [address] [place] [address] Dr. Sayda Kapoor EGFR-AF SOUTH KOREAN 60 mL/min/1.73m2 Normal >=60 [facility] Comment on above: Performed By: #### Q NTTB #### [facility] [address] [place] [address] Dr. Sayda Kapoor EGFR-NON AF [place]OU[place]ORE[place] 50 mL/min/1.73m2 Critically low >=60 [facility] Comment on above: Performed By: #### Q NTTB #### [facility] [address] [place] [address] Dr. Sayda Kapoor Globulin (S) [Mass/Vol] 3.0 g/dL Normal T [facility] Comment on above: Performed By: #### Q NTTB #### [facility] [address] [address] [address] Sayda Kapoor Glucose [Mass/Vol] 132 mg/dL Critically high 74-106 [facility] Comment on above: Performed By: #### Q NTTB #### [facility] [address] [address] [address] Sayda Kapoor Potassium [Moles/Vol] 4.3 mmol/L Normal 3.5-5.1 [facility] Comment on above: Performed By: #### Q NTTB #### [facility] [address] [address] [address] Sayda Kapoor Protein [Mass/Vol] 5.8 g/dL Critically low 6.4-8.2 [facility] Comment on above: Performed By: #### Q NTTB #### [facility] [address] [place] [address] Dr. Sayda Kapoor Sodium [Moles/Vol] 140 mmol/L Normal 136-145 [facility] Comment on above: Performed By: #### Q NTTB #### [facility] [address] [address] [address] Sayda Kapoor Urea nitrogen [Mass/Vol] 31.0 mg/dL Critically high 7.0-18.0 [facility] Comment on above: Performed By: #### Q NTTB #### [facility] [address] [place] [address] Dr. Sayda Kapoor Urea nitrogen/Creatinine [Mass ratio] 21.5 mg/mg Normal [facility] Comment on above: Performed By: #### Q NTTB #### [facility] [address] [address] [address] Sayda Kapoor T4on 10-21-2022 T4 [Mass/Vol] 5.00 ug/dL Normal 4.50-12.10 [facility] Comment on above: Performed By: #### Q NTTB #### [facility] [address] [place] [address] Dr. Sayda Kapoor TSHon 10-21-2022 TSH 0.918 uIU/mL Normal 0.358-3.740 [facility] Comment on above: Performed By: #### Q NTTB #### [facility] [address] [address] [address] Sayda Kapoor XR CHEST 1 Von 10-21-2022 XR CHEST 1 V EXAM: XR CHEST 1 V HISTORY: SHORTNESS OF BREATH COMPARISON: None. TECHNIQUE: Portable chest FINDINGS: IMPRESSION: Poor inspiratory effort. No focal consolidation or infiltrate. The heart is not enlarged. No pneumothorax or discrete pleural effusion. Electronically authenticated by: CUBA RO Date: 2022-10-21 18:09 Normal [facility] CREATININEon 10-19-2022 Creatinine [Mass/Vol] 1.21 mg/dL Normal 0.70-1.30 [facility] Comment on above: Performed By: #### B DIETIST, CMP, LIPA, TONI #### [facility] [address] [address] [address] Sayda Kapoor EGFR-AF SOUTH KOREAN >60 Normal >=60 [facility] Comment on above: Performed By: #### B DIETIST, CMP, LIPA, TONI #### [facility] [address] [address] [address] Sayda Kapoor EGFR-NON AF SOUTH KOREAN >60 Normal >=60 [facility] Comment on above: Performed By: #### B DIETIST, CMP, LIPA, TONI #### [facility] [address] [address] [address] Sayda Kapoor Orders Onlyon 10-11-2022 Orders Only [id number] Ayo Alicia 1960 Date Provider Department Center 10/11/2022 [id number] POMPA [facility] Family History Problem Relation Age of Onset Atrial fibrillation Mother Other Mother Other Mother Coronary artery disease Father Family Status - Relation Status Age at Mother Father Normal [facility] Prep for Procedureon 023 Prep for Procedure [id number] Ayo Alicia 1960 M Date Provider Department Center 10/01/2022 1987-[facility]ANIELLA [facility] Family History Problem Relation Age of Onset Atrial fibrillation Mother Other Mother Other Mother Coronary artery disease Father Family Status - Relation Status Age at Mother Father Normal [facility] Office Visiton 09-24-2022 Follow-up visit [id number] Ayo Alicia 1960 M Date Provider Department Center 09/24/2022 DARREN ROLLINS [facility] Family History Problem Relation Age of Onset Atrial fibrillation Mother Other Mother Other Mother Coronary artery disease Father Family Status - Relation Status Age at Mother Father Level of Service:06663 [place] OFFICE/OUTPATIENT NEW HIGH MDM 60-74 MINUTES Normal [facility] Consultation Noteon 08-05-20 Consultation Note [id number] #1.00CD:127 Normal [facility] CBC AUTO DIFFon 07-26-2022 BASO # 0.1 103/ul Normal 0.0-0.1 [facility] Comment on above: Performed By: #### B DIETIST, CMP, LIPA, TONI #### [facility] [address] [place] [address] Dr. Sayda Kapoor Basophils/100 WBC (Bld) 0.8 % Normal 0.2-2.0 [facility] Comment on above: Performed By: #### B DIETIST, CMP, LIPA, TONI #### [facility] [address] [place] [address] Dr. Sayda Kapoor EO # 0.2 103/ul Normal 0.0-0.7 [facility] Comment on above: Performed By: #### B DIETIST, CMP, LIPA, TONI #### [facility] [address] [place] [address] Dr. Sayda Kapoor Eosinophils/100 WBC (Bld) 2.9 % Normal 0.9-7.0 [facility] Comment on above: Performed By: #### B DIETIST, CMP, LIPA, TONI #### [facility] [address] [place] [address] Dr. Sayda Kapoor Erythrocyte distribution width (RBC) [Ratio] 14.3 % Normal 11.0-15.0 [facility] Comment on above: Performed By: #### B DIETIST, CMP, LIPA, TONI #### [facility] [address] [place] [address] Dr. Sayda Kapoor Hematocrit (Bld) [Volume fraction] 31.5 % Critically low 42.0-54.0 [facility] Comment on above: Performed By: #### B DIETIST, CMP, LIPA, TONI #### [facility] [address] [place] [address] Dr. Sayda Kapoor Hemoglobin (Bld) [Mass/Vol] 10.1 g/dL Critically low 14.0-18.0 [facility] Comment on above: Performed By: #### B DIETIST, CMP, LIPA, TONI #### [facility] [address] [place] [address] Dr. Sayda Kapoor IG # 0.07 10e3/ul Critically high 0.00-0.03 [facility] Comment on above: Performed By: #### B DIETIST, CMP, LIPA, TONI #### [facility] [address] [place] [address] Dr. Sayda Kapoor IG % 1.1 % Critically high 0.0-0.5 [facility] Comment on above: Performed By: #### B DIETIST, CMP, LIPA, TONI #### [facility] [address] [place] [address] Dr. Sayda Kapoor LYMPH # 1.1 103/ul Critically low 1.2-3.8 [facility] Comment on above: Performed By: #### B DIETIST, CMP, LIPA, TONI #### [facility] [address] [place] [address] Dr. Sayda Kapoor Lymphocytes/100 WBC (Bld) 17.1 % Critically low 20.5-60.0 [facility] Comment on above: Performed By: #### B DIETIST, CMP, LIPA, TONI #### [facility] [address] [place] [address] Dr. Sayda Kapoor MANUAL DIFF REQ NO Normal [facility] Comment on above: Performed By: #### B DIETIST, CMP, LIPA, TONI #### [facility] [address] [place] [address] Dr. Sayda Kapoor MCH (RBC) [Entitic mass] 27.2 pg Normal 25.9-34.0 [facility] Comment on above: Performed By: #### B DIETIST, CMP, LIPA, TONI #### [facility] [address] [place] [address] Dr. Sayda Kapoor MCHC (RBC) [Mass/Vol] 32.1 g/dL Normal 29.9-35.2 [facility] Comment on above: Performed By: #### B DIETIST, CMP, LIPA, TONI #### [facility] [address] [place] [address] Dr. Sayda Kapoor MCV (RBC) [Entitic vol] 84.7 fL Normal 80.0-94.0 [facility] Comment on above: Performed By: #### B DIETIST, CMP, LIPA, TONI #### [facility] [address] [place] [address] Dr. Sayda Kapoor MONO # 0.7 103/ul Normal 0.3-0.8 [facility] Comment on above: Performed By: #### B DIETIST, CMP, LIPA, TONI #### [facility] [address] [place] [address] Dr. Sayda Kapoor Monocytes/100 WBC (Bld) 10.4 % Normal 1.7-12.0 [facility] Comment on above: Performed By: #### B DIETIST, CMP, LIPA, TONI #### [facility] [address] [place] [address] Dr. Sayda Kapoor NEUT # 4.5 103/ul Normal 1.4-6.5 [facility] Comment on above: Performed By: #### B DIETIST, CMP, LIPA, TONI #### [facility] [address] [place] [address] Dr. Sayda Kapoor Neutrophils/100 WBC (Bld) 67.7 % Normal 43.0-75.0 [facility] Comment on above: Performed By: #### B DIETIST, CMP, LIPA, TONI #### [facility] [address] [place] [address] Dr. Sayda Kapoor Platelet mean volume (Bld) [Entitic vol] 9.0 fL Critically low 9.5-13.5 [facility] Comment on above: Performed By: #### B DIETIST, CMP, LIPA, TONI #### [facility] [address] [address] [address] Sayda Kapoor PLT 318 103/ul Normal 150-450 [facility] Comment on above: Performed By: #### B DIETIST, CMP, LIPA, TONI #### [facility] [address] [address] [address] Sayda Kapoor RBC 3.72 106/ul Critically low 4.70-6.10 [facility] Comment on above: Performed By: #### B DIETIST, CMP, LIPA, TONI #### [facility] [address] [address] [address] Sayda Kapoor WBC 6.6 103/ul Normal 4.0-11.0 [facility] Comment on above: Performed By: #### B DIETIST, CMP, LIPA, TONI #### [facility] [address] [place] [address] Dr. Sayda Kapoor FERRITINon 07-26-2022 Ferritin [Mass/Vol] 19.0 ng/mL Critically low 26.0-388.0 [facility] Comment on above: Performed By: #### B DIETIST, CMP, LIPA, TONI #### [facility] [address] [place] [address] Dr. Sayda Kapoor IRON AND TIBCon 07-26-2022 % SATURATION 10.0 % Normal [facility] Comment on above: Performed By: #### B DIETIST, CMP, LIPA, TONI #### [facility] [address] [place] [address] Dr. Sayda Kapoor Iron [Mass/Vol] 30.0 ug/dL Critically low 65.0-175.0 [facility] Comment on above: Performed By: #### B DIETIST, CMP, LIPA, TONI #### [facility] [address] [place] [address] Dr. Sayda Kapoor TIBC DIRECT 299.0 ug/dL Normal 250.0-450.0 [facility] Comment on above: Performed By: #### B DIETIST, CMP, LIPA, TONI #### [facility] [address] [address] [address] Sayda Kapoor PANCREATIC ELASTASE FECALon 07-19-2022 Pancreatic Elastase, Fecal 466 ug Elast./g Normal >200 [facility] Comment on above: Result Comment: Serenity re Pancreatic Insufficiency: <100 Moderate Pancreatic Insufficiency: 100 - 200 Normal: >200 Performed By: #### C MREP #### [facility] [address] [address] [address] Sayda Kapoor BOWEL DISORDERS EVALUATION R ULE-OUT CASCon 07-18-2022 Antigliadin 1 units Normal 0-19 [facility] Comment on above: Result Comment: Nega tive 0 - 19 Weak Positive 20 - 30 Moderate to Strong Positive >30 . Performed By: #### B DIETIST, CMP, LIPA, TONI #### [facility] [address] [address] [address] Sayda Kapoor Atypical pANCA Negative Normal Negative [facility] Comment on above: Performed By: #### B DIETIST, CMP, LIPA, TONI #### [facility] [address] [address] [address] Sayda Kapoor Note: [place] continues Normal [facility] Comment on above: Performed By: #### B DIETIST, CMP, LIPA, TONI #### [facility] [address] [address] [address] Sayda Kapoor Note: Comment Normal [facility] Comment on above: Result Comment: Sugg estive of irritable bowel syndrome (IBS). Careful evaluation of the patient's history, physical examination, and application of [place] III diagnostic criteria may help to rule in or rule out the diagnosis of IBS. Subsequent testing for Fecal Calprotectin (204620) may be recommended. If IBD is strongly suspected, subsequent testing with the Crohn's Disease Prognostic Profile (481122) that includes anti- glycan antibodies AMCA, ALCA, ACCA, and Sarbjit may aid in differential diagnosis. Performed By: #### B DIETIST, CMP, LIPA, TONI #### [facility] [address] [address] [address] Sayda Kapoor Saccharomyces Cer. IgG <20.0 Normal 0.0-24.9 Th e [facility] Comment on above: Result Comment: Nega tive <20.0 Equivocal 20.1 - 24.9 Positive >or= 25.0 Performed By: #### B DIETIST, CMP, LIPA, TONI #### [facility] [address] [place] [address] Dr. Sayda Kapoor tTG/DGP SCR Negative Normal Negative [facility] Comment on above: Performed By: #### B DIETIST, CMP, LIPA, TONI #### [facility] [address] [address] [address] Sayda Kapoor LACTOFERRIN FECAL QUANTon Lactoferrin, Fecal, Quant. 35.24 ug/mL(g) Critically high 0.00-7.24 [facility] Comment on above: Result Comment: Re sults [...] By: #### D IG #### [facility] [address] [place] [address] Dr. Sayda Kapoor QUANTIFERON TB GOLD PLUSon 1 09-15-2021 QuantiFERON Criteria Comment Normal [facility] Comment on above: Result Comment: Colt tiFERON-TB [...] By: #### Q NTTB #### [facility] [address] [place] [address] Dr. Sayda Kapoor QuantiFERON Incubation Incubation performed. Normal [facility] Comment on above: Performed By: #### Q NTTB #### [facility] [address] [place] [address] Dr. Sayda Kapoor QuantiFERON Mitogen Value 8.53 IU/mL Normal [facility] Comment on above: Performed By: #### Q NTTB #### [facility] [address] [place] [address] Dr. Sayda Kapoor QuantiFERON Nil Value 0.04 IU/mL Normal [facility] Comment on above: Performed By: #### Q NTTB #### [facility] [facility] [address] [place] [address] Dr. Sayda Kapoor QuantiFERON TB1 Ag Value 0.07 IU/mL Normal [facility] Comment on above: Performed By: #### Q NTTB #### [facility] [address] [place] [address] Dr. Sayda Kapoor QuantiFERON TB2 Ag Value 0.04 IU/mL Normal [facility] Comment on above: Performed By: #### Q NTTB #### [facility] [address] [place] [address] Dr. Sayda Kapoor QuantiFERON-TB Gold Plus Negative Normal Negative [facility] Comment on above: Result Comment: No r esponse to M tuberculosis antigens detected. Infection with M tuberculosis is unlikely, but high risk individuals should be considered for additional testing (ATS/IDSA/CDC Clinical Practice Guidelines, 2017). The reference range is an Antigen minus Nil result of <0.35 IU/mL. Chemiluminescence immunoassay methodology Performed By: #### Q NTTB #### [facility] [address] [place] [address] Dr. Sayda Kapoor CALPROTECTIN, FECALon 2021 Calprotectin, Fecal 247 ug/g Critically high 0-120 [facility] Comment on above: Result Comment: Conc entration Interpretation Follow-Up <16 - 50 ug/g Normal None >50 -120 ug/g Borderline Re-evaluate in 4-6 weeks >120 ug/g Abnormal Repeat as clinically indicated Performed By: #### C MREP #### [facility] [address] [place] [address] Dr. Sayda Kapoor HEP B COREon 07-13-2022 Hep B Core Ab, Tot Negative Normal Negative [facility] Comment on above: Performed By: #### H BCORE #### [facility] [address] [place] [address] Dr. Sayda Kapoor HEP B SURFACE ANTIGEN SCREEN on 07-13-2022 HBsAg Screen Negative Normal Negative [facility] Comment on above: Performed By: #### B DIETIST, CMP, LIPA, TONI #### [facility] [address] [place] [address] Dr. Sayda Kapoor CBC AUTO DIFFon 07-11-2022 BASO # 0.1 103/ul Normal 0.0-0.1 [facility] Comment on above: Performed By: #### C BC #### [facility] [address] [place] [address] Dr. Sayda Kapoor Basophils/100 WBC (Bld) 0.8 % Normal 0.2-2.0 [facility] Comment on above: Performed By: #### C BC #### [facility] [address] [place] [address] Dr. Sayda Kapoor EO # 0.2 103/ul Normal 0.0-0.7 [facility] Comment on above: Performed By: #### C BC #### [facility] [address] [place] [address] Dr. Sayda Kapoor Eosinophils/100 WBC (Bld) 3.3 % Normal 0.9-7.0 [facility] Comment on above: Performed By: #### C BC #### [facility] [address] [place] [address] Dr. Sayda Kapoor Erythrocyte distribution width (RBC) [Ratio] 14.6 % Normal 11.0-15.0 [facility] Comment on above: Performed By: #### C BC #### [facility] [address] [place] [address] Dr. Sayda Kapoor Hematocrit (Bld) [Volume fraction] 29.7 % Critically low 42.0-54.0 [facility] Comment on above: Performed By: #### C BC #### [facility] [address] [place] [address] Dr. Sayda Kapoor Hemoglobin (Bld) [Mass/Vol] 9.5 g/dL Critically low 14.0-18.0 [facility] Comment on above: Performed By: #### C BC #### [facility] [address] [place] [address] Dr. Sayda Kapoor IG # 0.03 10e3/ul Normal 0.00-0.03 [facility] Comment on above: Performed By: #### C BC #### [facility] [address] [place] [address] Dr. Sayda Kapoor IG % 0.4 % Normal 0.0-0.5 [facility] Comment on above: Performed By: #### C BC #### [facility] [address] [place] [address] Dr. Sayda Kapoor LYMPH # 1.0 103/ul Critically low 1.2-3.8 [facility] Comment on above: Performed By: #### C BC #### [facility] [address] [place] [address] Dr. Sayda Kapoor Lymphocytes/100 WBC (Bld) 13.6 % Critically low 20.5-60.0 [facility] Comment on above: Performed By: #### C BC #### [facility] [address] [place] [address] Dr. Sayda Kapoor MANUAL DIFF REQ NO Normal [facility] Comment on above: Performed By: #### C BC #### [facility] [address] [place] [address] Dr. Sayda Kapoor MCH (RBC) [Entitic mass] 27.6 pg Normal 25.9-34.0 [facility] Comment on above: Performed By: #### C BC #### [facility] [address] [place] [address] Dr. Sayda Kapoor MCHC (RBC) [Mass/Vol] 32.0 g/dL Normal 29.9-35.2 [facility] Comment on above: Performed By: #### C BC #### [facility] [address] [place] [address] Dr. Sayda Kapoor MCV (RBC) [Entitic vol] 86.3 fL Normal 80.0-94.0 [facility] Comment on above: Performed By: #### C BC #### [facility] [address] [place] [address] Dr. Sayda Kapoor MONO # 0.6 103/ul Normal 0.3-0.8 [facility] Comment on above: Performed By: #### C BC #### [facility] [address] [place] [address] Dr. Sayda Kapoor Monocytes/100 WBC (Bld) 8.6 % Normal 1.7-12.0 [facility] Comment on above: Performed By: #### C BC #### [facility] [address] [place] [address] Dr. Sayda Kapoor NEUT # 5.2 103/ul Normal 1.4-6.5 [facility] Comment on above: Performed By: #### C BC #### [facility] [address] [place] [address] Dr. Sayda Kapoor Neutrophils/100 WBC (Bld) 73.3 % Normal 43.0-75.0 [facility] Comment on above: Performed By: #### C BC #### [facility] [address] [place] [address] Dr. Sayda Kapoor Platelet mean volume (Bld) [Entitic vol] 8.9 fL Critically low 9.5-13.5 [facility] Comment on above: Performed By: #### C BC #### [facility] [address] [place] [address] Dr. Sayda Kapoor PLT 242 103/ul Normal 150-450 [facility] Comment on above: Performed By: #### C BC #### [facility] [address] [place], [place] [id number] Dr. Sayda Kapoor RBC 3.44 106/ul Critically low 4.70-6.10 [facility] Comment on above: Performed By: #### C BC #### [facility] [address] [place] [address] Dr. Sayda Kapoor WBC 7.1 103/ul Normal 4.0-11.0 [facility] Comment on above: Performed By: #### C BC #### [facility] [address] [address] [address] Sayda Kapoor CRPon 07-11-2022 CRP 0.5 mg/dL Normal <=1.0 [facility] Comment on above: Performed By: #### Q NTTB #### [facility] [address] [place] [address] Dr. Sayda Kapoor PROF 14(COMP METB)on 022 Albumin [Mass/Vol] 2.9 g/dL Critically low 3.4-5.0 Th e [facility] Comment on above: Performed By: #### Q NTTB #### [facility] [address] [place] [address] Dr. Sayda Kapoor Albumin/Globulin [Mass ratio] 0.9 {ratio} Normal [facility] Comment on above: Performed By: #### Q NTTB #### [facility] [address] [place] [address] Dr. Sayda Kapoor ALP [Catalytic activity/Vol] 60 U/L Normal 46-116 [facility] Comment on above: Performed By: #### Q NTTB #### [facility] [address] [place] [address] Dr. Sayda Kapoor ALT [Catalytic activity/Vol] 15 U/L Critically low 16-63 [facility] Comment on above: Performed By: #### Q NTTB #### [facility] [address] [place] [address] Dr. Sayda Kapoor Anion gap [Moles/Vol] 8.6 mmol/L Normal [facility] Comment on above: Performed By: #### Q NTTB #### [facility] [address] [place] [address] Dr. Sayda Kapoor AST [Catalytic activity/Vol] 10 U/L Critically low 15-37 [facility] Comment on above: Performed By: #### Q NTTB #### [facility] [address] [place] [address] Dr. Sayda Kapoor Bilirubin [Mass/Vol] 0.3 mg/dL Normal 0.2-1.0 [facility] Comment on above: Performed By: #### Q NTTB #### [facility] [address] [address] [address] Sayda Kapoor Calcium [Mass/Vol] 8.4 mg/dL Critically low 8.5-10.1 [facility] Comment on above: Performed By: #### Q NTTB #### [facility] [address] [address] [address] Sayda Kapoor Chloride [Moles/Vol] 104 mmol/L Normal 98-107 [facility] Comment on above: Performed By: #### Q NTTB #### [facility] [address] [address] [address] Sayda Kapoor CO2 [Moles/Vol] 29.2 mmol/L Normal 21.0-32.0 [facility] Comment on above: Performed By: #### Q NTTB #### [facility] [address] [address] [address] Sayda Kapoor Creatinine [Mass/Vol] 1.04 mg/dL Normal 0.70-1.30 [facility] Comment on above: Performed By: #### Q NTTB #### [facility] [address] [address] [address] Sayda Kapoor EGFR-AF SOU[place] KOREAN >60 Normal >=60 [facility] Comment on above: Performed By: #### Q NTTB #### [facility] [address] [address] [address] Sayda Kapoor EGFR-NON AF [place]ORE[place] >60 Normal >=60 [facility] Comment on above: Performed By: #### Q NTTB #### [facility] [address] [address] [address] Sayda Kapoor Globulin (S) [Mass/Vol] 3.4 g/dL Normal [facility] Comment on above: Performed By: #### Q NTTB #### [facility] [address] [address] [address] Sayda Kapoor Glucose [Mass/Vol] 93 mg/dL Normal 74-106 [facility] Comment on above: Performed By: #### Q NTTB #### [facility] [address] [address] [address] Sayda Kapoor Potassium [Moles/Vol] 3.8 mmol/L Normal 3.5-5.1 [facility] Comment on above: Performed By: #### Q NTTB #### [facility] [address] [address] [address] Sayda Kapoor Protein [Mass/Vol] 6.3 g/dL Critically low 6.4-8.2 [facility] Comment on above: Performed By: #### Q NTTB #### [facility] [address] [address] [address] Sayda Kapoor Sodium [Moles/Vol] 138 mmol/L Normal 136-145 [facility] Comment on above: Performed By: #### Q NTTB #### [facility] [address] [place] [address] Dr. Sayda Kapoor Urea nitrogen [Mass/Vol] 17.0 mg/dL Normal 7.0-18.0 [facility] Comment on above: Performed By: #### Q NTTB #### [facility] [address] [place] [address] Dr. Sayda Kapoor Urea nitrogen/Creatinine [Mass ratio] 16.3 mg/mg Normal [facility] Comment on above: Performed By: #### Q NTTB #### [facility] [address] [place] [address] Dr. Sayda Kapoor PROTIMEon 07-11-2022 INR Coag (PPP) [Relative time] 1.07 {INR} Normal [facility] Comment on above: Performed By: #### Q NTTB #### [facility] [address] [place] [address] Dr. Sayda Kapoor INR GUIDELINES SEE BELOW Normal [facility] Comment on above: Result Comment: SOPHIE RED INR: 2.0 - 3.0 CONDITIONS NOT LISTED BELOW 2.5 - 3.5 FOR PROSTHETIC HEART VALVE REPLACEMENT 2.5 - 3.5 RECURRENT THROMBOSIS Performed By: #### Q NTTB #### [facility] [address] [place] [address] Dr. Sayda Kapoor PT Coag (PPP) [Time] 11.5 s Normal 9.0-11.6 [facility] Comment on above: Performed By: #### Q NTTB #### [facility] [address] [place] [address] Dr. Sayda Kapoor SED RATE [facility] 2021 SED RATE 16 mm/hr Normal <=20 [facility] Comment on above: Performed By: #### D IG #### [facility] [address] [place] [address] Dr. Sayda Kapoor Scanned GI Testingon 022 Scanned GI Testing [id number] #[id number] Normal [facility] CBC AUTO DIFFon 07-04-2022 BASO # 0.1 103/ul Normal 0.0-0.1 [facility] Comment on above: Performed By: #### C MREP #### [facility] [address] [place] [address] Dr. Sayda Kapoor Basophils/100 WBC (Bld) 0.6 % Normal 0.2-2.0 [facility] Comment on above: Performed By: #### C MREP #### [facility] [address] [place] [address] Dr. Sayda Kapoor EO # 0.2 103/ul Normal 0.0-0.7 [facility] Comment on above: Performed By: #### C MREP #### [facility] [address] [place] [address] Dr. Sayda Kapoor Eosinophils/100 WBC (Bld) 2.2 % Normal 0.9-7.0 [facility] Comment on above: Performed By: #### C MREP #### [facility] [address] [place] [address] Dr. Sayda Kapoor Erythrocyte distribution width (RBC) [Ratio] 14.7 % Normal 11.0-15.0 [facility] Comment on above: Performed By: #### C MREP #### [facility] [address] [place] [address] Dr. Sayda Kapoor Hematocrit (Bld) [Volume fraction] 31.9 % Critically low 42.0-54.0 [facility] Comment on above: Performed By: #### C MREP #### [facility] [address] [place] [address] Dr. Sayda Kapoor Hemoglobin (Bld) [Mass/Vol] 10.2 g/dL Critically low 14.0-18.0 [facility] Comment on above: Performed By: #### C MREP #### [facility] [address] [place] [address] Dr. Sayda Kapoor IG # 0.09 10e3/ul Critically high 0.00-0.03 [facility] Comment on above: Performed By: #### C MREP #### [facility] [address] [place] [address] Dr. Sayda Kapoor IG % 1.1 % Critically high 0.0-0.5 [facility] Comment on above: Performed By: #### C MREP #### [facility] [address] [place] [address] Dr. Sayda Kapoor LYMPH # 1.2 103/ul Normal 1.2-3.8 [facility] Comment on above: Performed By: #### C MREP #### [facility] [address] [place] [address] Dr. Sayda Kapoor Lymphocytes/100 WBC (Bld) 14.6 % Critically low 20.5-60.0 [facility] Comment on above: Performed By: #### C MREP #### [facility] [address] [place] [address] Dr. Sayda Kapoor MANUAL DIFF REQ NO Normal [facility] Comment on above: Performed By: #### C MREP #### [facility] [address] [place] [address] Dr. Sayda Kapoor MCH (RBC) [Entitic mass] 27.5 pg Normal 25.9-34.0 [facility] Comment on above: Performed By: #### C MREP #### [facility] [address] [place] [address] Dr. Sayda Kapoor MCHC (RBC) [Mass/Vol] 32.0 g/dL Normal 29.9-35.2 [facility] Comment on above: Performed By: #### C MREP #### [facility] [address] [place] [address] Dr. Sayda Kapoor MCV (RBC) [Entitic vol] 86.0 fL Normal 80.0-94.0 [facility] Comment on above: Performed By: #### C MREP #### [facility] [address] [place] [address] Dr. Sayda Kapoor MONO # 0.9 103/ul Critically high 0.3-0.8 [facility] Comment on above: Performed By: #### C MREP #### [facility] [address] [place] [address] Dr. Sayda Kapoor Monocytes/100 WBC (Bld) 10.4 % Normal 1.7-12.0 [facility] Comment on above: Performed By: #### C MREP #### [facility] [address] [place] [address] Dr. Sayda Kapoor NEUT # 5.9 103/ul Normal 1.4-6.5 [facility] Comment on above: Performed By: #### C MREP #### [facility] [address] [place] [address] Dr. Sayda Kapoor Neutrophils/100 WBC (Bld) 71.1 % Normal 43.0-75.0 [facility] Comment on above: Performed By: #### C MREP #### [facility] [address] [place] [address] Dr. Sayda Kapoor Platelet mean volume (Bld) [Entitic vol] 8.8 fL Critically low 9.5-13.5 [facility] Comment on above: Performed By: #### C MREP #### [facility] [address] [place] [address] Dr. Sayda Kapoor PLT 252 103/ul Normal 150-450 [facility] Comment on above: Performed By: #### C MREP #### [facility] [address] [place] [address] Dr. Sayda Kapoor RBC 3.71 106/ul Critically low 4.70-6.10 [facility] Comment on above: Performed By: #### C MREP #### [facility] [address] [address] [address] Sayda Kapoor WBC 8.3 103/ul Normal 4.0-11.0 [facility] Comment on above: Performed By: #### C MREP #### [facility] [address] [address] [address] Sayda Kapoor CRPon 07-04-2022 CRP 1.8 mg/dL Critically high <=1.0 [facility] Comment on above: Performed By: #### B DIETIST, CMP, LIPA, TONI #### [facility] [address] [place] [address] Dr. Sayda Kapoor PROF 14(COMP METB)on 022 Albumin [Mass/Vol] 3.0 g/dL Critically low 3.4-5.0 [facility] Comment on above: Performed By: #### B DIETIST, CMP, LIPA, TONI #### [facility] [address] [place] [address] Dr. Sayda Kapoor Albumin/Globulin [Mass ratio] 1.0 {ratio} Normal [facility] Comment on above: Performed By: #### B DIETIST, CMP, LIPA, TONI #### [facility] [address] [place] [address] Dr. Sayda Kapoor ALP [Catalytic activity/Vol] 54 U/L Normal 46-116 [facility] Comment on above: Performed By: #### B DIETIST, CMP, LIPA, TONI #### [facility] [address] [place] [address] Dr. Sayda Kapoor ALT [Catalytic activity/Vol] 17 U/L Normal 16-63 [facility] Comment on above: Performed By: #### B DIETIST, CMP, LIPA, TONI #### [facility] [address] [place] [address] Dr. Sayda Kapoor Anion gap [Moles/Vol] 6.8 mmol/L Normal [facility] Comment on above: Performed By: #### B DIETIST, CMP, LIPA, TONI #### [facility] [address] [address] [address] Sayda Kapoor AST [Catalytic activity/Vol] 13 U/L Critically low 15-37 [facility] Comment on above: Performed By: #### B DIETIST, CMP, LIPA, TONI #### [facility] [address] [place] [address] Dr. Sayda Kapoor Bilirubin [Mass/Vol] 0.5 mg/dL Normal 0.2-1.0 [facility] Comment on above: Performed By: #### B DIETIST, CMP, LIPA, TONI #### [facility] [address] [place] [address] Dr. Sayda Kapoor Calcium [Mass/Vol] 8.3 mg/dL Critically low 8.5-10.1 [facility] Comment on above: Performed By: #### B DIETIST, CMP, LIPA, TONI #### [facility] [address] [place] [address] Dr. Sayda Kapoor Chloride [Moles/Vol] 102 mmol/L Normal 98-107 [facility] Comment on above: Performed By: #### B DIETIST, CMP, LIPA, TONI #### [facility] [address] [place] [address] Dr. Sayda Kapoor CO2 [Moles/Vol] 31.7 mmol/L Normal 21.0-32.0 [facility] Comment on above: Performed By: #### B DIETIST, CMP, LIPA, TONI #### [facility] [address] [place] [address] Dr. Sayda Kapoor Creatinine [Mass/Vol] 1.03 mg/dL Normal 0.70-1.30 [facility] Comment on above: Performed By: #### B DIETIST, CMP, LIPA, TONI #### [facility] [address] [place] [address] Dr. Sayda Kapoor EGFR-AF [place]OU[place]ORE[place] >60 Normal >=60 [facility] Comment on above: Performed By: #### B DIETIST, CMP, LIPA, TONI #### [facility] [address] [address] [address] Sayda Kapoor EGFR-NON AF [place]ORE[place] >60 Normal >=60 [facility] Comment on above: Performed By: #### B DIETIST, CMP, LIPA, TONI #### [facility] [address] [address] [address] Sayda Kapoor Globulin (S) [Mass/Vol] 3.1 g/dL Normal T [facility] Comment on above: Performed By: #### B DIETIST, CMP, LIPA, TONI #### [facility] [address] [place] [address] Dr. Sayda Kapoor Glucose [Mass/Vol] 102 mg/dL Normal 74-106 [facility] Comment on above: Performed By: #### B DIETIST, CMP, LIPA, TONI #### [facility] [address] [place] [address] Dr. Sayda Kapoor Potassium [Moles/Vol] 3.5 mmol/L Normal 3.5-5.1 [facility] Comment on above: Performed By: #### B DIETIST, CMP, LIPA, TONI #### [facility] [address] [place] [address] Dr. Sayda Kapoor Protein [Mass/Vol] 6.1 g/dL Critically low 6.4-8.2 [facility] Comment on above: Performed By: #### B DIETIST, CMP, LIPA, TONI #### [facility] [address] [place] [address] Dr. Sayda Kapoor Sodium [Moles/Vol] 137 mmol/L Normal 136-145 [facility] Comment on above: Performed By: #### B DIETIST, CMP, LIPA, TONI #### [facility] [address] [place] [address] Dr. Sayda Kapoor Urea nitrogen [Mass/Vol] 19.0 mg/dL Critically high 7.0-18.0 [facility] Comment on above: Performed By: #### B DIETIST, CMP, LIPA, TONI #### [facility] [address] [place] [address] Dr. Sayda Kapoor Urea nitrogen/Creatinine [Mass ratio] 18.4 mg/mg Normal [facility] Comment on above: Performed By: #### B DIETIST, CMP, LIPA, TONI #### [facility] [address] [place] [address] Dr. Sayda Kapoor SED RATE WESTERGRENon 2021 SED RATE 17 mm/hr Normal <=20 [facility] Comment on above: Performed By: #### C MREP #### [facility] [facility] [address] [place] [address] Dr. Sayda Kapoor Scanned GI Testingon 022 Scanned GI Testing [id number] #1.00CD:127 Normal [facility] Scanned GI Testing [id number] #1.00CD:127 Normal [facility] US SINGLE QUAD RT UPPERon US SINGLE [...] by: CUBA HERNANDEZ Date: 2022-06-23 16:17 Normal [facility] Outside Colonoscopyon 2021 Outside Colonoscopy [id number] #1.00CD:127 Normal [facility] Lab Reportson 05-07-2022 Lab Reports [id number] #1.00CD:127 Normal [facility] SARS-CoV-2 (COVID-19) RNA KAT+probe Ql (Unsp spec) Not detected Normal NOT DETECTED [facility] Comment on above: Result Comment: This test is not yet approved or cleared by the [place] FDA. When there are no FDA-approved or cleared tests available, and other criteria are met, FDA can make tests available under an emergency access mechanism called an Emergency Use Authorization (EUA). The EUA for this test is supported by the [place] of Health and Human Service's (HHS's) declaration [...] consistent with SARS-CoV-2. Performed By: #### C MREP #### [facility] [address] [place] [address] Dr. Sayda Kapoor Consent for Procedure/Surger yon 04-17-2022 Consent for Procedure/Surgery [id number]# 1.00CD:127 Normal [facility] RAD - CT Reporton 04-16-2022 RAD - CT Report [id number] #1.00CD:127 Normal [facility] CT ABD/PELV W CONon 04-14-[address] ABD/PELV W CON EXAMINATION: CT ABD/PELV [...] by: CUBA HERNANDEZ Date: 2022-04-14 14:28 Normal [facility] Consultation Noteon 04-09-20 Consultation Note [id number] #1.00CD:127 Normal [facility] General Surgery Office/Clini c Noteon 04-04-2022 General Surgery Office/Clinic Note Chief Complaint re-evaluate nausea and vomiting HPI Staff 62 year old male presents on consultation from Dr. Mccabe to re-evaluate nausea and vomiting. Last evaluation [...] see # 1 7. Chronic anticoagulation (Z79.01: prison (current) use of anticoagulants) will check with [...] Tab, 7 (more content not included)... Normal [facility] Comment on above: Result Comment: Elec tronically Signed By: LAZARO DANGELO, Javid Du\.br\Date and Time Signed: 04/04/22 11:03 EDT Consultation Noteon 04-03-20 Consultation Note [id number] #1.00CD:127 Normal [facility] Ambulatory Visit Summaryon 0 04-01-2022 Ambulatory Visit Summary AYO ALICIA :1960 Visit Date:04/01/2022 Ambulatory Visit Instructions Your Diagnosis Abdominal pain, RLQ Abdominal pain, periumbilical Iron deficiency anemia Nausea Chronic anticoagulation Your Care Team Attending Physician - LAZARO DANGELO, Javid Du Primary Care Physician - Perico Mccabe MD This Is Your Medications List apixaban [...] deficiency anemia Nausea Osteoarthritis RUQ pain Normal [facility] PROF 14(COMP METB)on 022 Albumin [Mass/Vol] 2.7 g/dL Critically low 3.4-5.0 [facility] Comment on above: Performed By: #### D IG #### [facility] [address] [place] [address] Dr. Sayda Kapoor Albumin/Globulin [Mass ratio] 0.9 {ratio} Normal [facility] Comment on above: Performed By: #### D IG #### [facility] [address] [place] [address] Dr. Sayda Kapoor ALP [Catalytic activity/Vol] 55 U/L Normal 46-116 [facility] Comment on above: Performed By: #### D IG #### [facility] [address] [place] [address] Dr. Sayda Kapoor ALT [Catalytic activity/Vol] 16 U/L Normal 16-63 [facility] Comment on above: Performed By: #### D IG #### [facility] [address] [place] [address] Dr. Sayda Kapoor Anion gap [Moles/Vol] 13.0 mmol/L Normal [facility] Comment on above: Performed By: #### D IG #### [facility] [address] [place] [address] Dr. Sayda Kapoor AST [Catalytic activity/Vol] 10 U/L Critically low 15-37 [facility] Comment on above: Performed By: #### D IG #### [facility] [address] [address] [address] Sayda Kapoor Bilirubin [Mass/Vol] 0.7 mg/dL Normal 0.2-1.0 [facility] Comment on above: Performed By: #### D IG #### [facility] [address] [place] [address] Dr. Sayda Kapoor Calcium [Mass/Vol] 7.4 mg/dL Critically low 8.5-10.1 [facility] Comment on above: Performed By: #### D IG #### [facility] [address] [place] [address] Dr. Sayda Kapoor Chloride [Moles/Vol] 110 mmol/L Critically high 98-107 [facility] Comment on above: Performed By: #### D IG #### [facility] [address] [place] [address] Dr. Sayda Kapoor CO2 [Moles/Vol] 25.1 mmol/L Normal 21.0-32.0 [facility] Comment on above: Performed By: #### D IG #### [facility] [address] [place] [address] Dr. Sayda Kapoor Creatinine [Mass/Vol] 1.16 mg/dL Normal 0.70-1.30 [facility] Comment on above: Performed By: #### D IG #### [facility] [address] [place] [address] Dr. Sayda Kapoor EGFR-AF SOU[place]ORE[place] >60 Normal >=60 [facility] Comment on above: Performed By: #### D IG #### [facility] [address] [place] [address] Dr. Sayda Kapoor EGFR-NON AF [place]ORE[place] >60 Normal >=60 [facility] Comment on above: Performed By: #### D IG #### [facility] [address] [place] [address] Dr. Sayda Kapoor Globulin (S) [Mass/Vol] 3.0 g/dL Normal [facility] Comment on above: Performed By: #### D IG #### [facility] [address] [place] [address] Dr. Sayda Kapoor Glucose [Mass/Vol] 122 mg/dL Critically high 74-106 [facility] Comment on above: Performed By: #### D IG #### [facility] [address] [place] [address] Dr. Sayda Kapoor Potassium [Moles/Vol] 3.1 mmol/L Critically low 3.5-5.1 [facility] Comment on above: Performed By: #### D IG #### [facility] [address] [place] [address] Dr. Sayda Kapoor Protein [Mass/Vol] 5.7 g/dL Critically low 6.4-8.2 [facility] Comment on above: Performed By: #### D IG #### [facility] [address] [place] [address] Dr. Sayda Kapoor Sodium [Moles/Vol] 145 mmol/L Normal 136-145 [facility] Comment on above: Performed By: #### D IG #### [facility] [address] [place] [address] Dr. Sayda Kapoor Urea nitrogen [Mass/Vol] 16.0 mg/dL Normal 7.0-18.0 [facility] Comment on above: Performed By: #### D IG #### [facility] [address] [place] [address] Dr. Sayda Kapoor Urea nitrogen/Creatinine [Mass ratio] 13.8 mg/mg Normal [facility] Comment on above: Performed By: #### D IG #### [facility] [address] [place] [address] Dr. Sayda Kapoor Lab Reportson 03-18-2022 Lab Reports [id number]#1.00CD:127 Normal [facility] RAD - Ultrasound Reporton RAD - Ultrasound Report [id number] #1.00CD:127 Normal [facility] PROF 14(COMP METB)on 022 Albumin [Mass/Vol] 3.1 g/dL Critically low 3.4-5.0 [facility] Comment on above: Performed By: #### B DIETIST, CMP, LIPA, TONI #### [facility] [address] [address] [address] Sayda Kapoor Albumin/Globulin [Mass ratio] 0.9 {ratio} Normal [facility] Comment on above: Performed By: #### B DIETIST, CMP, LIPA, TONI #### [facility] [address] [place] [address] Dr. Sayda Kapoor ALP [Catalytic activity/Vol] 67 U/L Normal 46-116 [facility] Comment on above: Performed By: #### B DIETIST, CMP, LIPA, TONI #### [facility] [address] [place] [address] Dr. Sayda Kapoor ALT [Catalytic activity/Vol] 25 U/L Normal 16-63 [facility] Comment on above: Performed By: #### B DIETIST, CMP, LIPA, TONI #### [facility] [address] [place] [address] Dr. Sayda Kapoor Anion gap [Moles/Vol] 10.1 mmol/L Normal [facility] Comment on above: Performed By: #### B DIETIST, CMP, LIPA, TONI #### [facility] [address] [place] [address] Dr. Sayda Kapoor AST [Catalytic activity/Vol] 15 U/L Normal 15-37 [facility] Comment on above: Performed By: #### B DIETIST, CMP, LIPA, TONI #### [facility] [address] [place] [address] Dr. Sayda Kapoor Bilirubin [Mass/Vol] 1.1 mg/dL Critically high 0.2-1.0 [facility] Comment on above: Performed By: #### B DIETIST, CMP, LIPA, TONI #### [facility] [address] [place] [address] Dr. Sayda Kapoor Calcium [Mass/Vol] 8.7 mg/dL Normal 8.5-10.1 [facility] Comment on above: Performed By: #### B DIETIST, CMP, LIPA, TONI #### [facility] [address] [place], [place] [id number] Dr. Sayda Kapoor Chloride [Moles/Vol] 103 mmol/L Normal 98-107 [facility] Comment on above: Performed By: #### B DIETIST, CMP, LIPA, TONI #### [facility] [address] [place] [address] Dr. Sayda Kapoor CO2 [Moles/Vol] 28.7 mmol/L Normal 21.0-32.0 [facility] Comment on above: Performed By: #### B DIETIST, CMP, LIPA, TONI #### [facility] [address] [place] [address] Dr. Sayda Kapoor Creatinine [Mass/Vol] 1.61 mg/dL Critically high 0.70-1.30 [facility] Comment on above: Performed By: #### B DIETIST, CMP, LIPA, TONI #### [facility] [address] [place] [address] Dr. Sayda Kapoor EGFR-AF [place]ORE[place] 53 mL/min/1.73m2 Critically low >=60 [facility] Comment on above: Performed By: #### B DIETIST, CMP, LIPA, TONI #### [facility] [address] [place] [address] Dr. Sayda Kapoor EGFR-NON AF [place] 44 mL/min/1.73m2 Critically low >=60 [facility] Comment on above: Performed By: #### B DIETIST, CMP, LIPA, TONI #### [facility] [address] [place] [address] Dr. Sayda Kapoor Globulin (S) [Mass/Vol] 3.6 g/dL Normal [facility] Comment on above: Performed By: #### B DIETIST, CMP, LIPA, TONI #### [facility] [address] [place] [address] Dr. Sayda Kapoor Glucose [Mass/Vol] 130 mg/dL Critically high 74-106 [facility] Comment on above: Performed By: #### B DIETIST, CMP, LIPA, TONI #### [facility] [address] [place] [address] Dr. Sayda Kapoor Potassium [Moles/Vol] 3.8 mmol/L Normal 3.5-5.1 [facility] Comment on above: Performed By: #### B DIETIST, CMP, LIPA, TONI #### [facility] [address] [place] [address] Dr. Sayda Kapoor Protein [Mass/Vol] 6.7 g/dL Normal 6.4-8.2 [facility] Comment on above: Performed By: #### B DIETIST, CMP, LIPA, TONI #### [facility] [address] [place] [address] Dr. Sayda Kapoor Sodium [Moles/Vol] 138 mmol/L Normal 136-145 [facility] Comment on above: Performed By: #### B DIETIST, CMP, LIPA, TONI #### [facility] [address] [place] [address] Dr. Sayda Kapoor Urea nitrogen [Mass/Vol] 31.0 mg/dL Critically high 7.0-18.0 [facility] Comment on above: Performed By: #### B DIETIST, CMP, LIPA, TONI #### [facility] [address] [place] [address] Dr. Sayda Kapoor Urea nitrogen/Creatinine [Mass ratio] 19.3 mg/mg Normal [facility] Comment on above: Performed By: #### B DIETIST, CMP, LIPA, TONI #### [facility] [address] [place] [address] Dr. Sayda Kapoor AMYLASEon 03-08-2022 Amylase [Catalytic activity/Vol] 63 U/L Normal 25-115 [facility] Comment on above: Performed By: #### B DIETIST, CMP, LIPA, TONI #### [facility] [address] [place] [address] Dr. Sayda Kapoor BNPon 03-08-2022 Natriuretic peptide B (Bld) [Mass/Vol] 47.0 pg/mL Normal <=900.0 [facility] Comment on above: Performed By: #### B DIETIST, CMP, LIPA, TONI #### [facility] [address] [place] [address] Dr. Sayda Kapoor CBC AUTO DIFFon 03-08-2022 BASO # 0.0 103/ul Normal 0.0-0.1 [facility] Comment on above: Performed By: #### C MREP #### [facility] [address] [place] [address] Dr. Sayda Kapoor Basophils/100 WBC (Bld) 0.5 % Normal 0.2-2.0 [facility] Comment on above: Performed By: #### C MREP #### [facility] [address] [place] [address] Dr. Sayda Kapoor EO # 0.3 103/ul Normal 0.0-0.7 [facility] Comment on above: Performed By: #### C MREP #### [facility] [address] [place] [address] Dr. Sayda Kapoor Eosinophils/100 WBC (Bld) 3.1 % Normal 0.9-7.0 [facility] Comment on above: Performed By: #### C MREP #### [facility] [address] [place] [address] Dr. Sayda Kapoor Erythrocyte distribution width (RBC) [Ratio] 13.8 % Normal 11.0-15.0 [facility] Comment on above: Performed By: #### C MREP #### [facility] [address] [place] [address] Dr. Sayda Kapoor Hematocrit (Bld) [Volume fraction] 35.0 % Critically low 42.0-54.0 [facility] Comment on above: Performed By: #### C MREP #### [facility] [address] [place] [address] Dr. Sayda Kapoor Hemoglobin (Bld) [Mass/Vol] 11.3 g/dL Critically low 14.0-18.0 [facility] Comment on above: Performed By: #### C MREP #### [facility] [address] [place] [address] Dr. Sayda Kapoor IG # 0.05 10e3/ul Critically high 0.00-0.03 [facility] Comment on above: Performed By: #### C MREP #### [facility] [address] [place] [address] Dr. Sayda Kapoor IG % 0.6 % Critically high 0.0-0.5 [facility] Comment on above: Performed By: #### C MREP #### [facility] [address] [address] [address] Sayda Kapoor LYMPH # 1.0 103/ul Critically low 1.2-3.8 [facility] Comment on above: Performed By: #### C MREP #### [facility] [address] [address] [address] Sayda Kapoor Lymphocytes/100 WBC (Bld) 11.7 % Critically low 20.5-60.0 [facility] Comment on above: Performed By: #### C MREP #### [facility] [address] [place] [address] Dr. Sayda Kapoor MANUAL DIFF REQ NO Normal [facility] Comment on above: Performed By: #### C MREP #### [facility] [address] [address] [address] Sayda Kapoor MCH (RBC) [Entitic mass] 29.0 pg Normal 25.9-34.0 [facility] Comment on above: Performed By: #### C MREP #### [facility] [address] [place] [address] Dr. Sayda Kapoor MCHC (RBC) [Mass/Vol] 32.3 g/dL Normal 29.9-35.2 [facility] Comment on above: Performed By: #### C MREP #### [facility] [address] [place] [address] Dr. Sayda Kapoor MCV (RBC) [Entitic vol] 90.0 fL Normal 80.0-94.0 [facility] Comment on above: Performed By: #### C MREP #### [facility] [address] [place] [address] Dr. Sayda Kapoor MONO # 0.8 103/ul Normal 0.3-0.8 [facility] Comment on above: Performed By: #### C MREP #### [facility] [address] [place] [address] Dr. Sayda Kapoor Monocytes/100 WBC (Bld) 8.9 % Normal 1.7-12.0 [facility] Comment on above: Performed By: #### C MREP #### [facility] [address] [address] [address] Sayda Kapoor NEUT # 6.6 103/ul Critically high 1.4-6.5 [facility] Comment on above: Performed By: #### C MREP #### [facility] [address] [address] [address] Sayda Kapoor Neutrophils/100 WBC (Bld) 75.2 % Critically high 43.0-75.0 [facility] Comment on above: Performed By: #### C MREP #### [facility] [address] [place] [address] Dr. Sayda Kapoor Platelet mean volume (Bld) [Entitic vol] 8.9 fL Critically low 9.5-13.5 [facility] Comment on above: Performed By: #### C MREP #### [facility] [address] [place] [address] Dr. Sayda Kapoor PLT 317 103/ul Normal 150-450 [facility] Comment on above: Performed By: #### C MREP #### [facility] [address] [place] [address] Dr. Sayda Kapoor RBC 3.89 106/ul Critically low 4.70-6.10 [facility] Comment on above: Performed By: #### C MREP #### [facility] [address] [place] [address] Dr. Sayda Kapoor WBC 8.7 103/ul Normal 4.0-11.0 [facility] Comment on above: Performed By: #### C MREP #### [facility] [address] [place] [address] Dr. Sayda Kapoor IRONon 03-08-2022 Iron [Mass/Vol] 42.0 ug/dL Critically low 65.0-175.0 [facility] Comment on above: Performed By: #### B DIETIST, CMP, LIPA, TONI #### [facility] [address] [place] [address] Dr. Sayda Kapoor LIPASEon 03-08-2022 Lipase [Catalytic activity/Vol] 80.0 U/L Normal 73.0-393.0 [facility] Comment on above: Performed By: #### B DIETIST, CMP, LIPA, TONI #### [facility] [address] [place] [address] Dr. Sayda Kapoor PROF 14(COMP METB)on 022 Albumin [Mass/Vol] 3.3 g/dL Critically low 3.4-5.0 [facility] Comment on above: Performed By: #### B DIETIST, CMP, LIPA, TONI #### [facility] [address] [place] [address] Dr. Sayda Kapoor Albumin/Globulin [Mass ratio] 0.8 {ratio} Normal [facility] Comment on above: Performed By: #### B DIETIST, CMP, LIPA, TONI #### [facility] [address] [place] [address] Dr. Sayda Kapoor ALP [Catalytic activity/Vol] 70 U/L Normal 46-116 [facility] Comment on above: Performed By: #### B DIETIST, CMP, LIPA, TONI #### [facility] [address] [place] [address] Dr. Sayda Kapoor ALT [Catalytic activity/Vol] 25 U/L Normal 16-63 [facility] Comment on above: Performed By: #### B DIETIST, CMP, LIPA, TONI #### [facility] [address] [place] [address] Dr. Sayda Kapoor Anion gap [Moles/Vol] 13.7 mmol/L Normal [facility] Comment on above: Performed By: #### B DIETIST, CMP, LIPA, TONI #### [facility] [address] [place] [address] Dr. Sayda Kapoor AST [Catalytic activity/Vol] 15 U/L Normal 15-37 [facility] Comment on above: Performed By: #### B DIETIST, CMP, LIPA, TONI #### [facility] [address] [place], [place] [id number] Dr. Sayda Kapoor Bilirubin [Mass/Vol] 0.8 mg/dL Normal 0.2-1.0 [facility] Comment on above: Performed By: #### B DIETIST, CMP, LIPA, TONI #### [facility] [address] [place] [address] Dr. Sayda Kapoor Calcium [Mass/Vol] 8.7 mg/dL Normal 8.5-10.1 [facility] Comment on above: Performed By: #### B DIETIST, CMP, LIPA, TONI #### [facility] [address] [place] [address] Dr. Sayda Kapoor Chloride [Moles/Vol] 102 mmol/L Normal 98-107 [facility] Comment on above: Performed By: #### B DIETIST, CMP, LIPA, TONI #### [facility] [address] [place] [address] Dr. Sayda Kapoor CO2 [Moles/Vol] 28.1 mmol/L Normal 21.0-32.0 [facility] Comment on above: Performed By: #### B DIETIST, CMP, LIPA, TONI #### [facility] [address] [place] [address] Dr. Sayda Kapoor Creatinine [Mass/Vol] 2.04 mg/dL Critically high 0.70-1.30 [facility] Comment on above: Performed By: #### B DIETIST, CMP, LIPA, TONI #### [facility] [address] [place] [address] Dr. Sayda Kapoor EGFR-AF [place]ORE[place] 40 mL/min/1.73m2 Critically low >=60 [facility] Comment on above: Performed By: #### B DIETIST, CMP, LIPA, TONI #### [facility] [address] [place] [address] Dr. Sayda Kapoor EGFR-NON AF [place] 33 mL/min/1.73m2 Critically low >=60 [facility] Comment on above: Performed By: #### B DIETIST, CMP, LIPA, TONI #### [facility] [address] [place] [address] Dr. Sayda Kapoor Globulin (S) [Mass/Vol] 3.9 g/dL Normal [facility] Comment on above: Performed By: #### B DIETIST, CMP, LIPA, TONI #### [facility] [address] [place] [address] Dr. Sayda Kapoor Glucose [Mass/Vol] 120 mg/dL Critically high 74-106 [facility] Comment on above: Performed By: #### B DIETIST, CMP, LIPA, TONI #### [facility] [address] [place] [address] Dr. Sayda Kapoor Potassium [Moles/Vol] 3.8 mmol/L Normal 3.5-5.1 [facility] Comment on above: Performed By: #### B DIETIST, CMP, LIPA, TONI #### [facility] [address] [place] [address] Dr. Sayda Kapoor Protein [Mass/Vol] 7.2 g/dL Normal 6.4-8.2 [facility] Comment on above: Performed By: #### B DIETIST, CMP, LIPA, TONI #### [facility] [address] [place] [address] Dr. Sayda Kapoor Sodium [Moles/Vol] 140 mmol/L Normal 136-145 [facility] Comment on above: Performed By: #### B DIETIST, CMP, LIPA, TONI #### [facility] [address] [place] [address] Dr. Sayda Kapoor Urea nitrogen [Mass/Vol] 38.0 mg/dL Critically high 7.0-18.0 [facility] Comment on above: Performed By: #### B DIETIST, CMP, LIPA, TONI #### [facility] [address] [place] [address] Dr. Sayda Kapoor Urea nitrogen/Creatinine [Mass ratio] 18.6 mg/mg Normal [facility] Comment on above: Performed By: #### B DIETIST, CMP, LIPA, TONI #### [facility] [address] [place] [address] Dr. Sayda Kapoor Physician Referralon 022 Physician Referral [id number] Normal Jairo [facility] US SINGLE QUAD RT UPPERon US [...] by: CL POTTS Date: 2022-03-08 17:27 Normal [facility] CNOVon 02-12-2021 CNOV Office Visit (UROLMN) AYO ALICIA ([id number]) 1960 Date Time Provider Department 02/12/21 2:00 PM JESSE INFANTE UROBERTHA During your visit today, we recorded the following information about you: Pulse Respiration Blood pressure Weight 74/minute 16/minute 113/68 83.9 kg Jesse Infante MD 02/12/2021 2:58 PM Signed [facility] NEW PATIENT HISTORY AND PHYSICAL EXAM PATIENT INFO: Ayo Alicia 60 year old REFERRING M.D.: Hosea Rust [address] [place] [address] This consult was requested by Dr. Rust for an opinion regarding Peyronie's disease, and my final recommendations will be communicated to the requesting health care provider by way of the shared medical record for internal providers or letter via the [email or web address] for external providers. HISTORY CHIEF [...] normal. ===== (more content not included)... Normal [facility] Urinalysison 02-12-2021 Bilirubin, Urine Negative Normal Negative [facility] Comment on above: Performed By: #### U A #### [place] [phone] Clarity (U) Clear Normal Clear [facility] Comment on above: Performed By: #### U A #### [place] [phone] Color (U) Yellow Normal Yellow [facility] Comment on above: Performed By: #### U A #### [place] [phone] Comments SEE COMMENT Normal [facility] Comment on above: Result Comment: Micr oscopic not warranted Performed By: #### U A #### [place] [phone] Glucose Ql (U) Negative Normal Negative [facility] Comment on above: Performed By: #### U A #### [place] [phone] Hemoglobin/Blood,Ur Negative Normal Negative [facility] Comment on above: Performed By: #### U A #### [place] [phone] Ketones Ql (U) Negative Normal Negative [facility] Comment on above: Performed By: #### U A #### [facility] [address], [place] [address] Leukest Negative Normal Negative [facility] Comment on above: Performed By: #### U A #### [facility] [address], [place] [address] Nitrite Ql (U) Negative Normal Negative [facility] Comment on above: Performed By: #### U A #### [place] [phone], [place] [address] pH (U) 5.0 [pH] Normal 5.0-8.0 [facility] Comment on above: Performed By: #### U A #### [address] [address] Protein, Urine Negative Normal Negative [facility] Comment on above: Performed By: #### U A #### [place] [id number] Specific [place], [place] 1.019 Normal 1.005-1.030 [facility] Comment on above: Performed By: #### U A #### [place] [phone], [place] [address] Urine Martín Comment SEE COMMENT Normal [facility] Comment on above: Result Comment: N/A Performed By: #### U A #### [place] [phone] Urobilinogen (U) [Mass/Vol] Negative Normal Negative [facility] Comment on above: Performed By: #### U A #### [address] [address] Cardiovascular Lab Report 01-26-2021 Cardiovascular Lab Report [facility] Patient Name: [facility] Ayo MR #: [id number] Department of Physician: Fatuma Garcia M.D. Division of Service Date: 01/26/2021 Cardiology Birthdate: 1960 Adult Cardiovascular Room #: [facility] Juancho Garcia. [place] [address] Cardiovascular Laboratory Report FINAL IMPRESSIONS: 1. Severe, [...] area of myocardium. 6. Follow up with [facility] Cardiology in the [facility] in the next 2 to 3 weeks. [...] the right radial artery was obtained. A 6-Hungarian glide sheath was inserted without difficulty. Bilateral selective coronary angiography was performed using a 6-Hungarian TIG catheter. After reviewing the images, it was elected to proceed with an interventional procedure. A 6-Hungarian XB3.0 guide catheter was advanced in over [...] in (more content not included)... Normal [facility] CORONAVIRUS 2019 BY PCRon CORONAVIRUS 2019,PCR DETECTED Abnormal Not Detected [facility] Comment on above: Order Comment: COVID CALLED [...] patient management decisions. Fact sheet for providers: https://www.fda.gov/media/525367/download Fact sheet for patients: https://www.fda.gov/media/813815/download This test has received FDA Emergency Use Authorization (EUA) and has been verified by [facility] ([facility]). This test is only authorized for the duration of time that circumstances exist to justify the authorization of the emergency use of in vitro diagnostic tests for the detection of SARS-CoV-2 virus and/or diagnosis of COVID-19 infection under section 564(b)(1) of the Act, 21 U.S.C. 360bbb-3(b)(1), unless the authorization is terminated or revoked sooner. [facility] is certified under CLIA-88 as qualified to perform high complexity testing. Testing is performed in the [facility] laboratories located at [address] [place] [address]. COVID CALLED TO RICHARD , 07/21/2020 16:56 Performed By: #### C OV19 #### [place] [address] EMPLOYED IN HEALTHCARE? Unknown Normal [facility] Comment on above: Order Comment: COVID CALLED TO RICHARD , 07/21/2020 16:56 Performed By: #### C OV19 #### [place] [id number] FIRST COVID NASAL SWAB TEST? Unknown Normal [facility] Comment on above: Order Comment: COVID CALLED TO RICHARD , 07/21/2020 16:56 Performed By: #### C OV19 #### [facility] [address] [place] [address] HOSPITALIZED (OR PLANNED TO BE ADMITTED)? Unknown Normal [facility] Comment on above: Order Comment: COVID CALLED TO RICHARD , 07/21/2020 16:56 Performed By: #### C OV19 #### [facility] [address] [place] [address] ICU? Unknown Normal [facility] Comment on above: Order Comment: COVID CALLED TO RICHARD , 07/21/2020 16:56 Performed By: #### C OV19 #### [facility] [address] [place] [phone] RESIDENT IN CONGREGATE CARE SETTING? Unknown Normal [facility] Comment on above: Order Comment: COVID CALLED TO RICHARD , 07/21/2020 16:56 Performed By: #### C OV19 #### [facility] [address] [place] [phone] SYMPTOMATIC DEFINED BY CDC? Unknown Normal [facility] Comment on above: Order Comment: COVID CALLED TO RICHARD , 07/21/2020 16:56 Performed By: #### C OV19 #### [facility] [address] [place] [id number] Covid 19 Resultson 0 Covid 19 Results [...] available, clean hands with an alcohol-based hand mining detail draftsperson that contains at least 60% alcohol. Remember [...] 20 seconds or use an alcohol-based hand mining detail draftsperson that contains at least 60% alcohol. Avoid touching your face Do not permit visitors who do not have an essential need to be in your home. Mask when caring for these individuals. Household members caring for a COVID-19 positive patient should consider self-quarantine for 14 days. If symptoms develop, testing for COVID-19 should be considered.. Revised 7.28.20 Electronic Signatures: Cortney Yatesices (ADMIN) (Signature pending) Authored Last Updated: 21-Jul-2020 16:32 by [place] [employer] (ADMIN) Normal [facility] CORONAVIRUS 2019 BY PCRon Lab Specimen Source Nasal, Nasopharyngeal Normal [facility] Comment on above: Order Comment: COVID CALLED TO RICHARD 07/21/2020 16:56 Performed By: #### C OV19 #### [facility] [address] [place] [address] Vital Signs Date Time Vital Sign Value Performing Clinician Facility 09-11-2023 15:00-0500 Body height 172.72 cm Enoch Carnes Other [facility] Other 09-11-2023 15:00-0500 Body mass index (BMI) [Ratio] 32.38 kg/m2 Enoch Carnes Other [facility] Other 09-11-2023 15:00-0500 Body weight 96.62 kg Enoch Carnes Other [facility] Other 08-27-2023 13:07-0500 Body height 172.7 cm Pm 2 [employer] 08-27-2023 13:07-0500 Body mass index (BMI) [Ratio] 28.13 kg/m2 [facility] 2 [employer] 08-27-2023 13:07-0500 Body weight 83.92 kg Pm 2 [employer] [facility] 04-23-2023 10:45-0400 Body height 172.72 cm Enoch Carnes Other [facility] Other 04-23-2023 10:45-0400 Body mass index (BMI) [Ratio] 32.37 kg/m2 Enoch Carnes Other [facility] Other 04-23-2023 10:45-0400 Body weight 96.57 kg Enoch Carnes Other [facility] Other 04-23-2023 10:45-0400 Diastolic blood pressure 84 mm[Hg] Enoch Carnes Other [facility] Other 04-23-2023 10:45-0400 Systolic blood pressure 184 mm[Hg] Enoch Carnes Other [facility] Other 07-09-2022 15:30-0500 Body height 172.72 cm Enoch Carnes Other [facility] Other 07-09-2022 15:30-0500 Body mass index (BMI) [Ratio] 27.52 kg/m2 Enoch Carnes Other [facility] Other 07-09-2022 15:30-0500 Body weight 82.1 kg Enoch Carnes Other [facility] Other 05-27-2022 15:44-0400 Body weight 0 kg MD Perico Mccabe Work Phone: [facility] 04-01-2022 15:06-0400 Blood Pressure Location Javid NILL [facility] 04-01-2022 15:06-0400 Diastolic blood pressure 74 mm[Hg] Javid NILL [facility] 04-01-2022 15:06-0400 Heart rate 58 /min Javid NILL [facility] 04-01-2022 15:06-0400 Respiratory rate 16 /min Javid NILL [facility] 04-01-2022 15:06-0400 Systolic blood pressure 124 mm[Hg] Javid NILL [facility] Encounters Encounter Date Encounter Type Care Provider Facility Start: 09-22-2023 End: 09-22-2023 ambulatory VIRAJAB YOSEF [facility] Start: 09-16-2023 End: 09-16-2023 Evaluation and management of inpatient ZOIE BARNHART [facility] Start: 09-16-2023 End: 09-16-2023 Evaluation and management of inpatient LETHA MONTOYA [facility] Start: 09-11-2023 End: 09-11-2023 ambulatory Enoch Carnes Other [facility] Other Start: 09-11-2023 Office outpatient vi sit 25 minutes Enoch Carnes [facility] Start: 08-27-2023 End: 08-28-2023 ambulatory CUBA TOMAS [facility] Start: 08-27-2023 Encounter for other preprocedural examination LETHA MONTOYA [facility] Start: 08-27-2023 End: 08-27-2023 Patient encounter procedure P[facility] Pre-Admission Testing 2 [facility] - Pre Admit Comment on above: Preop examination (P rimary Dx); Coronary artery disease, unspecified vessel or lesion type, unspecified whether angina present, unspecified whether cahuilla or transplanted heart Start: 08-27-2023 End: 08-27-2023 Preprocedural examination done Pm 2 [facility] Start: 07-02-2023 End: 07-02-2023 ambulatory CHELSI RUSSELL [facility] Start: 05-19-2023 End: 05-19-2023 ambulatory Enoch Carnes Other [facility] Other Start: 05-19-2023 Telephone encounter Enoch velazquez [facility] Start: 04-24-2023 End: 04-24-2023 ambulatory Enoch Carnes Other [facility] Other Start: 04-24-2023 Telephone encounter Enoch velazquez [facility] Start: 04-23-2023 Office outpatient vi sit 25 minutes Enoch Carnes [facility] Start: 04-23-2023 Telephone encounter Enoch Lizama ck [facility] Start: 04-23-2023 End: 04-23-2023 ambulatory Enoch Carnes [facility] Other Start: 04-23-2023 End: 04-23-2023 Patient encounter procedure MD Perico Mccabe Work Phone: [facility] [place] Work Phone: Start: 02-18-2023 End: 02-18-[address] [facility] Start: 12-24-2022 End: 12-24-2022 ambulatory [facility] Start: 11-21-[address] [facility] Start: 11-21-[address] [facility] Start: 11-21-2022 End: 11-21-[address] [facility] Start: 11-13-2022 End: 11-14-2022 ambulatory [facility] Start: 11-08-2022 End: 11-08-2022 ambulatory [facility] Start: 11-04-2022 [facility]counter [facility] Start: 11-04-2022 Encounter for preprocedural laboratory examination [facility] Start: 11-01-2022 End: 11-02-2022 ambulatory DARREN LABOY Facility:[facility] Start: 11-01-2022 End: 11-02-2022 Encounter for preprocedural laboratory examination DARREN LABOY Facility:[facility] Start: 10-24-2022 Encounter for other [facility]procedural [facility] Start: 10-21-2022 End: 10-23-[address] PERICO MCCABE . Facility:[facility] Start: 10-19-2022 End: 10-20-2022 ambulatory CL POTTS Facility:[facility] Start: 10-19-2022 End: 10-20-2022 Encounter for other preprocedural examination CL POTTS Facility:[facility] Start: 09-24-2022 End: 09-24-2022 ambulatory DARREN LABOY [facility] Start: 09-05-2022 End: 09-05-2022 ambulatory Enoch Carnes Other [facility] Other Start: 09-05-2022 Telephone encounter Enoch velazquez [facility] Start: 07-26-2022 End: 07-27-[address] Rose CARNES Facility:[facility] Start: 07-24-2022 End: 07-24-2022 ambulatory Enoch Carnes Other [facility] Other Start: 07-24-2022 Telephone encounter Enoch velazquez [facility] Start: 07-11-2022 End: 07-12-[address] PERICO MCCABE . Facility:[facility] Start: 07-09-2022 End: 07-09-2022 ambulatory Enoch Carnes Other [facility] Other Start: 07-09-2022 Office outpatient ne w 45 minutes Enoch Carnes [facility] Start: 07-04-2022 End: 07-05-[address] PERICO MCCABE . Facility:[facility] Start: 06-22-2022 End: 06-23-[address] PERICO MCCABE . Facility:[facility] Start: 06-10-2022 End: 06-10-2022 ambulatory Perico Mccabe Facility:[facility] Start: 06-10-2022 End: 06-10-2022 ambulatory MD Perico Mccabe Work Phone: [facility] Work Phone: Start: 06-10-2022 End: 06-10-2022 Patient encounter procedure MD Perico Mccabe Work Phone: [facility] Start: 05-27-2022 End: 05-27-2022 ambulatory Enoch Carnes Other [facility] Other Start: 05-27-2022 Telephone encounter Enoch Lizama ck [facility] Start: 05-08-2022 End: 05-09-2022 ambulatory Javid WILLIS Facility:[id number] Start: 05-04-2022 End: 05-05-[address] PERICO MCCABE . Facility: Start: 04-13-2022 End: 04-14-[address] PERICO MCCABE . Facility: Start: 04-01-2022 End: 04-01-2022 Patient encounter procedure Javid WILLIS [facility] Start: 04-01-2022 End: 04-02-2022 ambulatory Javid WILLIS Facility:[facility] Start: 03-13-2022 End: 03-14-[address] PERICO MCCABE . Facility: Start: 03-08-2022 End: 03-09-[address] PERICO MCCABE . Facility: Start: 01-26-2021 End: 01-27-2021 ambulatory PHYSICIAN UNKNOWN Facility:[facility] Procedures Date Procedure Procedure Detail Performing Clinician Start: 06-10-2022 Capsule endoscopy MD Hopper Work Phone: Start: 12-30-2020 Angioplasty of blood vessel Javid GLEZRose Start: 11-30-2020 Insertion of stent i nto aorta Javid GLEZL Arthroplasty of knee Javid NILL Arthroscopy of knee Javid GLEZL Cardiac catheterization Parmjit ulisesrose GLEZL Excision of cervical intervertebral disc Javid GLEZL Comment on above: C6-C7 Tonsillectomy Javid GLEZL Vasectomy Javid GLEZL Plan of Treatment Date Care Activity Detail Author Start: 08-27-2024 [facility] Start: 08-27-2024 Tobacco Screening Tobacco Screening [facility] Start: 09-30-2023 End: 09-30-2023 Admission to same day surgery center 09/30/2023 3:00 PM EST - 09/30/2023 3:45 PM EST Surgery [facility] [address] [place] [id number] Letha Montoya MD [address] [place] [address] [id number] EXTRACTION CATARACT INTRAOCULAR LENS [61085 (CPT )] [facility] Comment on above: EXTRACTION CATARACT INTRAOCULAR LENS [62004 (CPT )] Start: 09-30-2023 Subsequent hospital visit by physician 09/30/2023 3:00 PM EST Hospital Encounter [facility] [address] [place] [address] Letha Montoya MD [address] [place] [address] [id number] [facility] Start: 09-30-2023 End: 09-30-2023 Xcapsl ctrc rmvl insj io lens prosth w/o ecp EXTRACTION CATARACT INTRAOCULAR LENS cataract left eye 09/30/2023 3:00 PM EST [facility] Start: 09-29-2023 End: 09-29-2023 ambulatory 09/29/2023 4:00 PM EST Support Visit [facility] - Pre Admit [address] [place] [id number] [facility] Start: 09-16-2023 End: 09-16-2023 Admission to same day surgery center 09/16/2023 3:00 PM EST - 09/16/2023 3:45 PM EST Surgery [facility] [address] [facility] [place] [address] Letha Montoya MD [address] [place] [id number] EXTRACTION CATARACT INTRAOCULAR LENS [15437 (CPT )] [facility] Comment on above: EXTRACTION CATARACT INTRAOCULAR LENS [15001 (CPT )] Start: 09-16-2023 Subsequent hospital visit by physician 09/16/2023 3:00 PM EST Hospital Encounter [facility] Surgery [address] [place] [address] Letha Montoya MD [address] [place], [place] [id number] [facility] Start: 09-16-2023 End: 09-16-2023 Xcapsl ctrc rmvl insj io lens prosth w/o ecp EXTRACTION CATARACT INTRAOCULAR LENS cataract right eye 09/16/2023 3:00 PM EST [facility] Start: 05-02-2023 COVID-19 Vaccine ( season) COVID-19 Vaccine ( season) [facility] Start: 05-02-2023 Influenza vaccination Influenza Vacc ine [facility] Start: 06-10-2022 [facility] Start: 2009 Administration of varicella zoster vaccine Zoster (Shingles) Vaccine (1 of 2) [facility] Start: 1978 DTaP,Tdap and Td Vac cines (1 - Tdap) DTaP,Tdap and Td Vaccines (1 - Tdap) [facility] Start: 1977 Adult BMI Follow Up Plan Adult BMI Follow Up Plan [facility] Start: 1971 Depression Screening Depression Scre [facility] Payers Date Payer Category Payer Self-pay [id number] 2019 Unknown [employer] [place] [employer] [id number] 2019-Present [phone] [address] [place] [address] [id number] 1960 Self-pay [id number] 1959 Unknown [id number] 1960 Unknown [id number] 2.16.840.1.336737.3.579.2.647 1959 Unknown [id number] 2.16.840.1.092850.3.579.2.727 1959 Unknown [id number] 2.16.840.1.198682.3.579.2.727 1959 Unknown [id number] 2.16.840.1.428627.3.579.2.593 1959 Unknown [id number] 2.16.840.1.172972.3.579.2.593 1959 Unknown [id number] 2.16.840.1.379291.3.579.2.593 1959 Unknown [id number] 2.16.840.1.922448.3.579.2.593 1959 Unknown [id number] 2.16.840.1.862035.3.579.2.593 1959 Unknown [id number] 2.16.840.1.624440.3.579.2.593 1959 Unknown [id number] 2.16.840.1.861514.3.579.2.593 1959 Unknown [id number] 2.16.840.1.033940.3.579.2.593 1959 Unknown [id number] 2.16.840.1.364491.3.579.2.593 1959 Unknown [id number] 2.16.840.1.526120.3.579.2.593 1959 Unknown [id number] 2.16.840.1.782994.3.579.2.593 1959 Unknown [id number] 2.16.840.1.035018.3.579.2.593 1959 Unknown [id number] 2.16.840.1.894596.3.579.2.593 1959 Unknown [id number] 2.16.840.1.111988.3.579.2.593 1959 Unknown [id number] 2.16.840.1.849948.3.579.2.593 1959 Unknown [id number] 2.16.840.1.099898.3.579.2.1286 1959 Unknown [id number] 2.16.840.1.820798.3.579.2.1286 1959 Unknown [id number] 2.16.840.1.824678.3.579.2.1286 1959 Unknown [id number] 2.16.840.1.330948.3.579.2.1286 1959 Unknown [id number] 2.16.840.1.182633.3.579.2.1286 Unknown [id number] 2.16.840.1.665929.3.579.2.531 Unknown [id number] 2.16.840.1.230231.3.579.2.531 Social History Date Type Detail Facility Start: 04-01-2022 End: 08-27-2023 Tobacco smoking status Never smoked tobacco (finding) [facility] Tobacco smoking status Never Bijane [facility] Start: 09-26-2020 End: 08-27-2023 Sex Assigned At Male [facility] Start: 1960 Sex Assigned At Male [facility] Start: 08-27-2023 Tobacco use and exposure [facility]ok[facility] Start: 08-27-2023 Alcohol intake Ex-drinker (finding) [employer] Start: 09-26-2020 End: 08-27-2023 History of Social function [employer] Start: 08-27-2023 Alcohol Comment very rare [employer] Start: 1960 Sex Assigned At Not on file P [employer] Medical Equipment Procedure Code Equipment Code Equipment Origin al Text Equipment Identifier Dates Capsule endoscopy, for patency of lumen evaluation Video capsule endoscopy system ()[id number] FDA Start: 06-10-2022 Goals Date Patient Goal Desired Activity /State Functional Status Date Assessment Result Facility 04-01-2022 Functional Status N/A [facility] Clinical Notes 02-12-2021 to 09-22-2023 Note Date & Type Note Facility 09-22-2023 Note [facility] Cardiology Clinic Note Chief Complaint: Patient here for 2 mo follow up hypertension. Lisinopril was increased to 20mg daily about 6 weeks ago by Maryann Russell. Had follow up BMP end of Aug 2023. Patient called office 2 weeks ago to report BP still running very high, in the 170's-190's systolic. Maryann Russell then switched his metoprolol to carvedilol. He was seen in [facility] ED on 08/02/2023 for chest pain. HPI: Ayo Alicia is a 63 y.o. male With a history of coronary artery disease, prior PCI and stent placement most [id number], paroxysmal atrial fibrillation/flutter s/p ablation and hypertension here in routine follow-up 08/02/2023: Was seen in the emergency room with hypertension, headache and pressure sensation of the chest. Once his blood pressure was treated with 1 dose of hydralazine the pressure came down the headache and chest pain resolved. Serial troponins were negative. EKG was normal. No acute changes. Cardiology ROS: Review of Systems Constitutional: Positive for malaise/fatigue. Cardiovascular: Positive for chest pain (pressure, few and far between ), dyspnea on exertion and leg swelling (much better). Musculoskeletal: Positive for arthritis, back pain and joint pain. Neurological: Positive for light-headedness (occasional). All other systems reviewed and are negative. Past Medical History He has a past [...] No history on file for drug use. Family History Family History Problem Relation Name Age of Onset Atrial fibrillation Mother Other (pulmonary hypertension) Mother Other (heart valve disease) Mother Coronary artery disease Father Allergies Patient has no known allergies. Medications Current Outpatient Medications: aspirin 81 mg EC tablet, Take 81 mg by mouth in the morning., Disp: , Rfl: atorvastatin (Lipitor) 80 mg tablet, TAKE 1 TABLET DAILY, Disp: 90 tablet, Rfl: 3 budesonide EC (Entocort EC) 3 mg 24 hr capsule, Take 9 mg by mouth in the morning., Disp: , Rfl: carvedilol (Coreg) 25 mg tablet, Take 1 tablet (25 mg) by mouth with breakfast and with evening meal., Disp: 180 tablet, Rfl: 3 Eliquis 5 mg tablet, TAKE 1 TABLET IN THE MORNING AND AT BEDTIME, Disp: 180 tablet, Rfl: 3 lisinopril 10 mg tablet, Take 1 tablet (10 mg) by mouth in the morning., Disp: 90 tablet, Rfl: 3 lisinopril 20 mg tablet, Take 1 tablet (20 mg) by mouth in the morning., Disp: [...] once daily as directed., Disp: , Rfl: Last Recorded Vitals BP 130/80 (BP Location: Left arm, Patient Position: Sitting) Pulse 71 Ht 1.727 m (5' 8 ) Wt 81.2 kg (179 lb) SpO2 98% BMI 27.22 kg/m??? Physical Examination: GENERAL: alert and oriented x3, well developed, in no acute distress. HEAD: atraumatic, normocephalic. EYES: FÉLIX, EOMI. NECK: trachea midline, no JVD present, no carotid bruits present. CARDIAC: S1, S2 present. RRR. No murmur, rubs, or gallops. RESPIRATORY: CTAB, no increased effort of breathing, no rales, rhonchi, or wheezing. ABDOMEN: soft, nontender, nondistended. EXTREMITIES: no lower extremity edema, peripheral pulses are 2+ bilaterally. No rash/skin discoloration present. NEURO: strength/sensation equal and symmetric in bilateral upper and lower extremities. PSYCH: appropriate mood, affect, and judgement. INVESTIGATIONS: 05/27/23 Hgb 7.8, plt 340 Cr 1.21, BUN 12, K 4.3, Na 140, eGFR >60, AST 13, ALT 16 HgbA1c 5.3 TC 32, trig 109, HDL 29, LDL 32 TSH 1.428 NM exercise stress test 06/17/2023 Small fixed defect inferior wall, RCA distribution. No reversible ischemia - normal wall motion Normal exercise stress test. Admission on 11/21/2022, Discharged on 11/21/2022 Component Date Value Ref Range Status Ventricular Rate 11/21/2022 167 BPM Final QRS DURATION 11/21/2022 78 ms Final QT Interval 11/21/2022 262 ms Final QTC CALCULATION(BAZETT) 11/21/2022 437 ms Final R-[place] 11/21/2022 26 degrees Final T Wave [place] 11/21/2022 182 degrees Final Protime 11/21/2022 14.3 12.3 - 14.8 Seconds Final INR 11/21/2022 1.12 (H) 0.90 - 1.10 Final Glucose POC 11/21/2022 144 (H) 70 - 105 mg/dL Final Ventricular Rate (more content not included)... [facility] 09-11-2023 Evaluation note Encounter Date Diagnosis Assessment Notes 11 Levi, 2024 Crohns disease (ICD-10 - K50.90) Patient reports [...] did have some recent labs done at [facility] will obtain these reports Patient is to start Amjevita RTO 6 weeks [facility] Other 12-27-2023 Instructions* Patient Instructions* Supriya Morel [...] you have a Living Will/Durable Power of Repair [employer] for Health Care that is not on file here, please bring a copy the day of surgery. 3. Please wash your face with baby shampoo prior to procedure as instructed by your physician. 4. NO powder, lotion, perfume/cologne, aftershave, make-up, nail barbadian on at least one finger, deodorant, or [...] please call the Preadmission Testing office at [phone], Mon.-Fri. 7 a.m.-3 p.m. Leave a voicemail [...] to procedure documented in this encounterUniversity Hospitals Health System12-27-2023 Miscellaneous Notes* Perioperative Nursing Note - Supriya [...] you have a Living Will/Durable Power of [employer] for Health Care that is not on file here, please bring a copy the day of surgery. 3. Please wash your face with baby shampoo prior to procedure as instructed by your physician. 4. NO powder, lotion, perfume/cologne, aftershave, make-up, nail barbadian on at least one finger, deodorant, or [...] please call the Preadmission Testing office at [phone], Mon.-Fri. 7 a.m.-3 p.m. Leave a voicemail [...] verbalized understanding. documented in this encounterUniversity Hospitals Health System12-27-2023 Nurse Note* Perioperative Nursing Note - Supriya [...] you have a Living Will/Durable Power of Repair [employer] for Health Care that is not on file here, please bring a copy the day of surgery. 3. Please wash your face with baby shampoo prior to procedure as instructed by your physician. 4. NO powder, lotion, perfume/cologne, aftershave, make-up, nail barbadian on at least one finger, deodorant, or [...] please call the Preadmission Testing office at [phone], Mon.-Fri. 7 a.m.-3 p.m. Leave a voicemail [...] Stop taking 0 days prior to procedure [facility] [employer] website [id number] Nurse Note* Perioperative Nursing Note - Supriya Morel RN - 08/27/2023 12:45 PM EST Surgical instructions reviewed. Patient verbalized understanding. [facility] HospitalSt[facility] GamesOhio State East [id number] NotePatient here for abnormal stress test. It was done 2 weeks ago at [facility] and was ordered by Dr. Mccabe. Says stress test was ordered because he's [...] weakness. All other systems reviewed and are negative.[facility] 07-02-2023 NoteCardiovascular Medicine [facility] SUBJECTIVE No chief complaint on file. [...] spine Erectile dysfunction Fatigue Iron deficiency anemia prison current use of anticoagulant therapy Aortic valve [...] distribution. No reversible ische (more content not included)...[facility]09-18-2023 Evaluation note* Encounter Date Diagnosis Assessment Notes Treatment Notes Treatment Clinical Notes May, Crohns disease (ICD-10 - K50.90) [facility] Other 08-24-2023 Evaluation note* Encounter Date Diagnosis Assessment Notes Treatment Notes Treatment Clinical Notes Apr, Iron deficiency anemia (ICD-10 - D50.9) [facility] Other 08-23-2023 Evaluation note* Encounter Date Diagnosis Assessment Notes Treatment Notes Treatment Clinical Notes Apr, Crohns disease (ICD-10 - K50.90) Pt is taking budesonide. Pt advised to start humira and stop budesonide. Labs ordered Pt RTO in 6 wks [facility] Other 06-20-2023 NotePatient is here today for [...] All other systems reviewed and are negative. [facility] Consult Note Reason for visit: 1 [...] CS), 9/4 (HRA) LA 400ms pacing (mmHg) 12 AHms 74, 66 HVms 39, 46 VERPms [...] on external nose Oropharynx (more content not included)...[facility] 12-24-2022 Alona is here to follow up post afib [...] sleepiness. All other systems reviewed and are negative.[facility] 12-24-2022 NoteUT Cardiology Consult Note Reason [...] was recently admitted to the [facility] for A-fib RVR where he [...] believed to be Crohsn and on steroids. Tp he is in SR by pulse check. [...] no thoracic deformi (more content not included)... [facility]03-23-2023 NotePatient: Ayo Rodriguez Emerson Procedure Summary Date: 11/21/22 Room / Location: [facility] MANAGER CORPORATE COMMUNICATIONS 1 EP / [facility] (Cath) Anesthesia Start: 08 Anesthesia Stop: 1213 Procedures: Ablation atrial fibrillation NANCI during EP case Cardioversion/defibrillation Diagnosis: Persistent atrial fibrillation (CMS/HCC) (Persistent atrial fibrillation (CMS/HCC) [I48.19]) Providers: Darren Laboy MD Responsible Provider: Terry Kathleen MD Anesthesia [...] were no known notable events for this encounter.[facility]03-23-2023 NoteATRIAL FIBRILLATION ABLATION PROCEDURE NOTE DATE OF PROCEDURE: 11/21/2022 PERFORMING PHYSICIAN: Dr. Darren Laboy DIRECTOR OF TESTING: Dr Bacilio Olmedo CONSENT: Patient NAME OF [...] was recently hospitalized at the [facility] for A-fib RVR and is [...] Coumadin ridge. Esophagus was mapped using the [employer] 3D mapping software and noted to be [...] aspect. 40W was utiliz (more content not included)...[facility]03-23-2023 NoteAirway Date/Time: 11/21/2022 8:53 AM Urgency: [...] it difficult to get a good mask sealUnFayette County Memorial Hospital03-23-2023 NoteArterial Line: Date/Time: 11/21/2022 7:50 AM An [...] procedure well with no complications. Staffing Performed: resident/FOSTER CARE CASE MANAGER/CAA Anesthesiologist: Terry Kathleen MD Resident/FOSTER CARE CASE MANAGER: Mc Ramos, [facility]03-23-2023 NotePatient: Ayo Alicia Procedure Information Date/Time: 11/21/22 0800 Procedure: Ablation atrial fibrillation Location: [facility] MANAGER CORPORATE COMMUNICATIONS 1 EP / [facility] (Cath) Providers: Darren Laboy MD Relevant Problems Cardio (+) Aortic valve [...] ??? Fatigue ??? Iron deficiency anemia ??? 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 Aortic [...] products. Plan discussed with resident. Additional Equipment RequestsUnFayette County Memorial Hospital03-20-2023 Note- continue Lipitor 80 mgUnFayette County Memorial Hospital03-20-2023 Note Hypertension is stable today - continue medicationUnFayette County Memorial Hospital03-20-2023 Note- mild regurgitation per recent echo 10/2022UnFayette [facility] 11-18-2022 Note- per echo 10/2022 mild to moderate regurgitationUnFayette County Memorial Hospital03-20-2023 Note- history of mild regurgitation, none noted on recent echo 10/2022UnFayette County Memorial Hospital03-20-2023 NoteCoronary artery disease is Stable -s/p PCI with ERIC to LAD 01/26/21 (cath also noted severe prox and mid vessel to a short PDA and moderate dz to LCx) -Continue statin, BB - he has history of being on Plavix which was supposedly stopped after EGD [facility]03-20-2023 [id number] 2 ( hypertension, CAD) - continue Eliquis 5 mg twice daily Toprol 100 mg daily - we will proceed with A-fib ablation - tolerating Eliquis without any concerns of bleedingUnFayette County Memorial Hospital03-10-2023 NotePatient here for pre afib ablation H&P. He is scheduled with Dr. Laboy on 11/21/2022. Since last apt he was admitted to [facility] for afib w/ RVR. Still has intermittent chest pain, but denies bleeding on Eliquis. Review of Systems Constitutional: Positive for malaise/fatigue. Cardiovascular: Positive for chest pain, dyspnea on exertion, leg swelling and palpitations. Musculoskeletal: Positive for arthritis, back pain and joint pain. Neurological: Positive for light-headedness. All other systems reviewed and are negative.[facility] 11-08-2022 NoteUT Cardiology Consult Note Reason [...] was recently admitted to the [facility] for A-fib RVR where he was started on a Cardizem infusion and Lanoxin with an ELIZABEHT. His troponins were reported negative. States he [...] Labs: Labs from 11/01 (more content not included)...[facility] 10-11-2022 NotecreUnFayette County Memorial Hospital01-24-2023 NotePatient here for 1 mo follow [...] light-headedness. All other systems reviewed and are negative.[facility] 09-24-2022 NoteUT Cardiology Consult Note Reason for visit: [...] TOTAL, HDL, LDL CALC, (more content not included)...[facility]11-23-2022 Evaluation note* Encounter Date Diagnosis Assessment Notes Treatment Notes Treatment Clinical Notes Jul, Iron deficiency anemia (ICD-10 - D50.9) [facility] Other 11-08-2022 Evaluation note* Encounter Date Diagnosis Assessment Notes Treatment Notes Treatment Clinical Notes Jul, Iron deficiency anemia (ICD-10 - D50.9) Jul, Crohns disease (ICD-10 - K50.90) CONTINUE SULFASALAZINE 2 TABLETS TWICE A DAY RTO 4 WEEKS Jul, Abdominal pain (ICD-10 - R10.9) Jul, Diarrhea (ICD-10 - R19.7) [facility] Other 09-07-2022 NoteOPERATIVE NOTE OPERATION DATE: 05/08/2022 PREOPERATIVE DIAGNOSIS: Epigastric and bilateral lower abdominal pain, nausea, vomiting. POSTOPERATIVE DIAGNOSIS: Hiatal hernia, redundant colon with spasm. PROCEDURE: EGD and colonoscopy to cecum. SURGEON: Javid Willis M.D. ANESTHESIA: Monitored anesthesia care. ESTIMATED BLOOD [...] recovery room in good condition. CC: Perico Mccabe M.D.[facility]06-14-2021 NoteHNO ID: [id number] Author: Jesse Infante MD Service: ? Author Type: Physician Type: Progress Notes Filed: 02/12/2021 2:58 PM Note Text: [facility] NEW PATIENT HISTORY AND PHYSICAL EXAM PATIENT INFO: Ayo Alicia 60 year old REFERRING M.D.: Hosea Rust [address] [place] [address] This consult was requested by Dr. Rust for an opinion regarding Peyronie's disease, and my final recommendations will be communicated to the requesting health care provider by way of the shared medical record for internal providers or letter via the [email or web address] for external providers. HISTORY CHIEF [...] such as injections an (more content not included)...[facility]06-14-2021 NotePatient Outreach (UROLMN) AYO ALICIA ([id number]) 1960 M Date Time Provider Department 02/12/21 JESSE INFANTE During your visit today, we recorded the following information about you: Allergies As of Date: 02/12/2021 (No Known Allergies) Date Reviewed: 02/12/2021 Reviewed by: Jesse Infante MD - Fully Assessed Visit Diagnosis:Screening for genitourinary condition [Z13.89] Order(s):URINALYSIS, DIPSTICK ONLY [SQUA] Order #: [id number]. #:[id number] Prescriptions as of 02/12/2021 Sig: ASPIRIN 325 [...] of organic origin [N5*02/12/2021 Encounter Status:Closed by SUZY LIR on 02/15/21[facility] Evaluation + Plan note No data available for this section [facility] Surgery Adger Evaluation noteNo assessment information available [facility] Work Phone: Evaluation noteNo InformationNortWilkes-Barre General Hospital TrackTik Other Evaluation note* Diagnosis Preop examination- Primary Unspecified pre-operative examination Coronary artery disease, unspecified vessel or lesion type, unspecified whether angina present, unspecified whether cahuilla or transplanted heart documented in this encounter [facility]History general Narrative - Reported* Type Description Date Surgical History knee replacement-right Surgical History knee arthroscopy-left Surgical History back surgery Surgical History Neck Surgery Surgical History ganglion cyst-left Surgical History heart stent [facility] Other Hispvnx general Narrative - Reported* Type Description Date Medical History Afib Surgical History knee replacement-right Surgical History knee arthroscopy-left Surgical History back surgery Surgical History Neck Surgery Surgical History ganglion cyst-left Surgical History heart stent Surgical History cardiac ablasion [facility] Other Hospital Discharge instructions No data available for this section [facility] Surgery Adger Progress note No data available for this section [facility] General Surgery Adger Summary Purpose Family History No Family History [...] section and content) DATE CREATED AUTHOR [facility]/22/2020 [facility] DATE CREATED AUTHOR AUTHOR'S ORGANIZ ATION 10/03/2021 [facility] DATE CREATED AUTHOR AUTHOR'S ORGANIZ ATION 12/15/2021 [facility] DATE CREATED AUTHOR AUTHOR'S ORGANIZ ATION 08/05/2022 [facility] DATE CREATED AUTHOR AUTHOR'S ORGANIZ ATION 11/06/2022 [facility] DATE CREATED AUTHOR AUTHOR'S ORGANIZ ATION 04/24/2023 [facility] DATE CREATED AUTHOR AUTHOR'S ORGANIZ ATION 09/18/2023 [facility] DATE CREATED AUTHOR AUTHOR'S ORGANIZ ATION 09/22/2023 [facility] Care Team (unrecognized sect ion and content) Team Status: Active Member Role Status Dates Perico Mccabe MD Primary Care Provider Active Team Status: Inactive Member Role Status Dates Perico Mccabe MD Primary Care Provider Active Enoch Carnes MD Attending Provider Active Manager [place] Relationship Specialty Start Date End Date Perico Mccabe MD [address] [place] [address] PCP - General Family Medicine 08/27/23 REASON [...] BE BASED ON THE PRIMARY CLINICAL RECORDS. [facility]. provides no warranty or guarantee of the accuracy or completeness of information in this document.
--- NOTE | 2023-10-03 14:13 | CA_ITS ---
Patient Name: AYO ALICIA MR#: [id number] : 1960 Exam Date: 10/03/2023 Ordering Doctor: DR LINDSEY PAGAN M.D. ECHOCARDIOGRAM REPORT PROCEDURE: CA ECHO DOPPLER COMPLETE INDICATIONS: Mitral valve regurgitation, stent, hypertension COMPARISON: None. DESCRIPTION: COMPLETE ECHOCARDIOGRAM Real-time transthoracic echocardiography with 2D, M-mode, spectral and color flow Doppler performed. QUALITY: Technical quality was good. 68 , 180#, BSA 1.95 m2 LEFT VENTRICLE: Normal chamber size. Moderate concentric left ventricular hypertrophy. LV EF: Global left ventricular systolic function is normal; visually estimated ejection fraction is 55 to 60%. No significant wall motion abnormalities. DIASTOLIC: Diastolic function is indeterminate. ATRIAL SEPTUM: Poorly seen. LEFT ATRIUM: Moderate dilatation. RIGHT ATRIUM: Mild dilatation. RIGHT VENTRICLE: Normal chamber size. Normal right ventricular systolic function. TRICUSPID VALVE: Normal mobility and thickness. Mild regurgitation. Doppler studies reveal mildly (35-45) elevated right sided pressures. RVSP 38 mmHg MITRAL VALVE: Mildly thickened with normal mobility. No evidence of mitral valve stenosis. There is no mitral annular calcification. Mild mitral regurgitation. AORTIC VALVE: Normal trileaflet appearance. Thickened aortic valve. Normal leaflet mobility. No evidence of aortic valve stenosis. Trivial aortic regurgitation. AORTIC ROOT: Normal diameter and appearance. PULMONIC VALVE: Normal thickness and mobility. No stenosis. Trivial regurgitation. PERICARDIUM: No evidence of pericardial effusion. IVC: Not well visualized. CONCLUSION: 1. Global left ventricular systolic function is normal; visually estimated ejection fraction is 55 to 60% 2. Moderately increased left ventricular wall thickness 3. Biatrial enlargement 4. The right ventricle is normal in size and systolic function 5. Mild tricuspid regurgitation; mildly elevated right ventricular systolic pressures 6. Mild mitral regurgitation Adult Echocardiography Procedure Report Left Ventricle LVEDD (3.7 - 5.6 cm): 4.59 cm LVESD (2.2 - 4.0 cm): 3.01 cm LVIVS thickness (0.6 - 1.2 cm): 1.61 cm LVPW thickness (0.5 - 1.0 cm): 1.54 cm e': 0.06 m/s E - e': 10.99 LVOT Max Gradient: 3.23 mm[Hg] LVOT Area (cm2): 0.90 m/s Peak Velocity (LVOT): 0.90 m/s Mean Velocity (LVOT): 0.58 m/s LVOT Diameter 2.41 cm Left Atrium LA Volume Index (2D A2C): 46.73 ml/m2 Left Atrium Systolic Dimension: 4.08 cm Mitral Valve MV E to A Ratio: 1.05 Mitral Valve A-Wave Peak Velocity: 0.68 m/s Mitral Valve E-Wave Peak Velocity: 0.71 m/s Right Ventricle Aorta AO Root Diam: 3.67 cm Ascending Ao Diam: 3.56 cm Aortic Valve AoV Area (Peak Andrew): 4.30 cm2, 4.30 cm2 AoV Area (VTI): 4.43 cm2, 4.43 cm2 Peak Velocity(Antegrade Flow): 0.96 m/s Peak Gradient(Antegrade Flow): 3.65 mm[Hg] Mean Velocity(Antegrade Flow): 0.65 m/s Mean Gradient(Antegrade Flow): 1.98 mm[Hg] Velocity Time Integral: 22.91 cm Tricuspid Valve Peak Velocity (Regurgitant Flow): 2.72 m/s Pulmonic Valve Mean Gradient: 1.95 mm[Hg] Mean Velocity: 0.66 m/s Peak Velocity: 0.91 m/s, 0.91 m/s Peak Gradient: 3.32 mm[Hg], 3.32 mm[Hg] Right Atrium Right Atrium Systolic Pressure: 49.17 ml, 49.17 ml Dictated by: Lindsey Pagan M.D. on 10/03/2023 at 14:24 Approved by: Lindsey Pagan M.D. on 10/03/2023 at 14:51
== END 2023-10-03 13:30 | disposition home or self-care (01) ==
LOC: LAB 14:22 → CARD 14:30
PROVIDERS: PCP Family Medicine; Visit Provider Internal Medicine Interventional Cardiology
DX: I34.0 Nonrheumatic mitral (valve) insufficiency (principal); E78.5 Hyperlipidemia, unspecified
CPT/HCPCS: 93306

== ENCOUNTER 2023-10-04 07:40 | Outpatient (OUT) | payer OTHER, SELFPAY ==
--- OUTSIDE RECORDS SUMMARY | 2023-10-04 07:43 | XMS_ITS | CCD ---
Author Name Unknown Address [address] [place] [address] Organization [facility] Care Team Providers Care Lathe Puller Name Role Phone UNKNOWN, PHYSICIAN Primary Care Unavailable UNKNOWN, PHYSICIAN Referring Unavailable VIRAJ PAGANAB A Admitting Unavailable VIRAJ PAGANAB A Attending Unavailable Perico Mccabe Primary Care Physician MD Perico Mccabe Primary Care Provider [phone] MD Enoch Carnes Attending Provider Enoch Carnes Unavailable [phone] Javid WILLIS Attending Unavailable Perico Tubbs Referring [...] Unavailable NILL ., DR DIAZ Admitting Unavailable WOODBINE, DR CUBA Mark Consulting Unavailable NILL ., [...] Admitting UnavailMD Perico Lugo Primary Care Provider [phone] MD Enoch Carnes Attending Provider [phone] Perico Mccabe MD Primary Care Provider [phone] LETHA MONTOYA Referring Unavailable PERICO MCCABE Primary [...] disease (5 sources) 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; Translations: [Coronary [...] sources) Long-term current use of anticoagulant; Translations: [residential (current) use of anticoagulants] Onset: 04-01-2022 Episodic Other aftercare (1 source) 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; Translations: [[facility] CURRENT USE OF ASPIRIN] Onset: 10-28-2022 Episodic Other aftercare (1 source) Other snf (current) drug therapy; 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] Onset: 10-28-2022 Episodic Other [...] source) residential (current) use of anticoagulants; Translations: [[facility] CURRNT USE ANTICOAGULANTS] Onset: 05-10-2022 Episodic Other [...] Range Facility Office Visiton 09-22-2023 Follow-up visit [id number] Ayo Alicia 1960 M Date Provider Department Center 09/22/2023 271-GL[facility]IA P[facility] Family History Problem Relation Age of Onset Atrial fibrillation Mother Other Mother Other Mother Coronary artery disease Father Family Status - Relation Status Age at Mother Father Level of Service:67152 [place] OFFICE/OUTPATIENT ESTABLISHED MOD MDM 30 MIN Normal [facility] Orders Onlyon 09-17-2023 Orders Only [id number] Ayo Alicia 1960 Provider Department Center 09/17/2023 Shyanne-DARREN LABOY [facility] CARD [place] Count Family History Problem Relation Age of Onset Atrial fibrillation Mother Other Mother Other Mother Coronary artery disease Father Family Status - Relation Status Age at Mother Father [facility] 36on 09-11-2023 36 Can we please have him switch his metoprolol to carvedilol 25mg BID. Follow-up in clinic in 2 weeks. Thank you [facility] 36on 08-30-2023 36 Please let him know his recent labs show his kidney function is normal. Thank you Normal [facility] HEMOGLOBINon 08-27-2023 Hemoglobin (Bld) [Mass/Vol] 12.3 g/dL Low 13.0-17.[address] [facility] Comment on above: Performed By: #### 7 18-7 #### [facility] ([id number]) [address] [place] [address], [address] [place] [address] Hemoglobinon 08-27-2023 Hemoglobin (Bld) [Mass/Vol] 12.3 g/dL Low 13.0 - 17.0 g/dL [facility] Hemoglobin (Bld) [Mass/Vol]o n 08-27-2023 Interpretation and review of laboratory results Abnormal [facility] 36on 08-06-2023 36 Pt infomed appt made meds sent [facility] Orders Onlyon 08-06-2023 Orders Only [id number] Ayo Alicia Rose 1960 [facility] Provider Department Center 08/06/2023 MOUNIKA TREADWELL Family History Problem Relation Age of Onset Atrial fibrillation Mother Other Mother Other Mother Coronary artery disease Father Family Status - Relation Status Age at Mother Father [facility] 36on 08-04-2023 36 His blood pressure is too high. Please have him increase his lisinopril to 20mg daily (he can take 2 tablets of his current 10mg until this runs out). He will need follow-up BMP in 2 weeks. Follow-up in clinic in 3 months. Thanks [facility] Telephoneon 08-04-2023 Telephone [id number] EmersonAyo Rose 1960 [facility] Provider Department Center 08/04/2023 MOUNIKA TREADWELL Family History Problem Relation Age of Onset Atrial fibrillation Mother Other Mother Other Mother Coronary artery disease Father Family Status - Relation Status Age at Mother Father [facility] 36on 07-02-2023 36 Patient needs phone call for BP check on 07/16/2023. Thanks. [facility] Office Visiton 07-02-2023 Follow-up visit [id number] MarjorieAyo park Rose 1960 [facility] Provider Department Center 07/02/2023 CHELSI LINARES Family History Problem Relation Age of Onset Atrial fibrillation Mother Other Mother Other Mother Coronary artery disease Father Family Status - Relation Status Age at Mother Father Level of Service:59807 [place] OFFICE/OUTPATIENT ESTABLISHED MOD MDM 30-39 MIN [facility] Albumin [Mass/volume] in Ser um or Plasma by Bromocresol green (BCG) dye binding methoOrdered By: Enoch Carnes on 04-23-2023 Albumin BCG dye [Mass/Vol] 3.8 g/dL 3.5-5.7 [facility] Basophils Auto (Bld) [#/Vol] Ordered By: Enoch Carnes on 04-23-2023 Basophils (Bld) [#/Vol] 0.1 10*3/uL 0.0-0.2 [facility] Basophils/100 WBC Auto (Bld) Ordered By: Enoch Carnes on 04-23-2023 Basophils/100 WBC (Bld) 0.8 % . [facility] Bilirubin.total [Mass/volume ] in Serum or PlasmaOrdered By: Enoch Carnes on 04-23-2023 Bilirubin [Mass/Vol] 0.9 mg/dL 0.3-1.0 [facility] Calcium [Mass/volume] in Ser um or PlasmaOrdered By: Enoch Carnes on 04-23-2023 Calcium [Mass/Vol] 8.7 mg/dL 8.6-10.3 [facility] Carbon dioxide, total [Moles /volume] in Serum or PlasmaOrdered By: Enoch Carnes on 04-23-2023 CO2 [Moles/Vol] 29.7 mmol/L 21.0-31.0 [facility] Complete Blood Count Auto Di ffon 04-23-2023 Basophils (Bld) [#/Vol] 0.1 10*3/uL Normal 0.0-0.2 [facility] Comment on above: Order Comment: Reaso n for Exam Crohns disease Result Comment: PERF ORMED BY: [place] [address] PATHOLOGIST FINANCIAL SERVICES AUDITOR ANIYA BRUCE M.D. Performed By: #### C BC, CMP #### [facility] [address] [place] [address] [place] Basophils/100 WBC (Bld) 0.8 % Normal . [facility] Comment on above: Order Comment: Reaso n for Exam Crohns disease Performed By: #### C BC, CMP #### [facility] [address] [place] [address] [place] Eosinophils (Bld) [#/Vol] 0.1 10*3/uL Normal 0.0-0.45 [facility] Comment on above: Order Comment: Reaso n for Exam Crohns disease Performed By: #### C BC, CMP #### [address] Eosinophils/100 WBC (Bld) 1.4 % Normal . [facility] Comment on above: Order Comment: Reaso n for Exam Crohns disease Performed By: #### C BC, CMP #### [address] Erythrocyte distribution width (RBC) [Ratio] 19.1 % High 12.0-14.8 [facility] Comment on above: Order Comment: Reaso n for Exam Crohns disease Performed By: #### C BC, CMP #### [address] Hematocrit (Bld) [Volume fraction] 25.3 % Low 38.8-50.0 [facility] Comment on above: Order Comment: Reaso n for Exam Crohns disease Performed By: #### C BC, CMP #### [address] Hemoglobin (Bld) [Mass/Vol] 7.7 g/dL Low 13.0-17.0 [facility] Comment on above: Order Comment: Reaso n for Exam Crohns disease Performed By: #### C BC, CMP #### [address] Lymphocytes (Bld) [#/Vol] 0.7 10*3/uL Low 1.00-4.8 [facility] Comment on above: Order Comment: Reaso n for Exam Crohns disease Performed By: #### C BC, CMP #### [address] Lymphocytes/100 WBC (Bld) 7.2 % Normal . [facility] Comment on above: Order Comment: Reaso n for Exam Crohns disease Performed By: #### C BC, CMP #### [address] MCH (RBC) [Entitic mass] 22.0 pg Low 27.5-35.2 [facility] Comment on above: Order Comment: Reaso n for Exam Crohns disease Performed By: #### C BC, CMP #### [facility] [address] [place] [address] [place] MCV (RBC) [Entitic vol] 72.5 fL Low 83.5-101 [facility] Comment on above: Order Comment: Reaso n for Exam Crohns disease Performed By: #### C BC, CMP #### [facility] [address] Mean Corpuscular HGB Conc 30.3 g/dL Low 32.5-35.6 [facility] Comment on above: Order Comment: Reaso n for Exam Crohns disease Performed By: #### C BC, CMP #### [address] Monocytes (Bld) [#/Vol] 0.8 10*3/uL Normal 0.0-0.8 [facility] Comment on above: Order Comment: Reaso n for Exam Crohns disease Performed By: #### C BC, CMP #### [facility] [address] [place] [address] [place] Monocytes/100 WBC (Bld) 8.0 % Normal . [facility] Comment on above: Order Comment: Reaso n for Exam Crohns disease Performed By: #### C BC, CMP #### [facility] [address] [place] [address] Neutrophils (Bld) [#/Vol] 8.1 10*3/uL High 1.8-7.7 [facility] Comment on above: Order Comment: Reaso n for Exam Crohns disease Performed By: #### C BC, CMP #### [facility] [address] [place] [address] [place] Neutrophils/100 WBC (Bld) 82.6 % Normal . [facility] Comment on above: Order Comment: Reaso n for Exam Crohns disease Performed By: #### C BC, CMP #### [facility] [address] [place] [address] [place] NRBC% 0.1 /100{WBC} Normal 0-0.5 [facility] Comment on above: Order Comment: Reaso n for Exam Crohns disease Performed By: #### C BC, CMP #### [facility] [address] Platelet mean volume (Bld) [Entitic vol] 7.5 fL Normal 6.6-10.1 [facility] Comment on above: Order Comment: Reaso n for Exam Crohns disease Performed By: #### C BC, CMP #### [facility] [address] Platelets (Bld) [#/Vol] 359 10*3/uL Normal 150-450 [facility] Comment on above: Order Comment: Reaso n for Exam Crohns disease Performed By: #### C BC, CMP #### [facility] [address] RBC (Bld) [#/Vol] 3.49 10*6/uL Low 3.90-5.[address] [facility] Comment on above: Order Comment: Reaso n for Exam Crohns disease Performed By: #### C BC, CMP #### [facility] [address] WBC (Bld) [#/Vol] 9.8 10*3/uL Normal 4.1-10.5 [facility] Comment on above: Order Comment: Reaso n for Exam Crohns disease Performed By: #### C BC, CMP #### [facility] [address] Comprehensive Metabolic Pane dianna 04-23-2023 Albumin [Mass/Vol] 3.356448 g/dL Normal 3.5-5.7 g/dL N [employer] Other Bilirubin [Mass/Vol] 0.6160199 mg/dL Normal 0.3- 1.0 mg/dL [facility] Other Calcium [Mass/Vol] 8.4402499 mg/dL Normal 8.6-10 .3 mg/dL [facility] Other CO2 [Moles/Vol] 29.83779338 mmol/L Normal 21.0-3 1.0 mmol/L [facility] Other Creatinine [Mass/Vol] 1.01489401 mg/dL Normal 0. 70-1.30 mg/dL [employer] Other Potassium [Moles/Vol] 3.21809990 mmol/L Low 3 .5-5.1 mmol/L [facility] Other Protein [Mass/Vol] 6.219707 g/dL Low 6.4-8.9 g/dL N [facility] [employer] Other Comprehensive Metabolic Panel 2.2 g/dL [employer] Other Albumin [Mass/Vol] 3.8 g/dL Normal 3.5-5.7 [facility] Comment on above: Order Comment: Reaso n for Exam Crohns disease Performed By: #### C BC, CMP #### [facility] [address] Anion gap [Moles/Vol] 8.6 mmol/L Normal 6.0-15.0 [facility] Comment on above: Order Comment: Reaso n for Exam Crohns disease Performed By: #### C BC, CMP #### [facility] [address] [place] [address] [place] Bilirubin [Mass/Vol] 0.9 mg/dL Normal 0.3-1.0 [facility] Comment on above: Order Comment: Reaso n for Exam Crohns disease Performed By: #### C BC, CMP #### [facility] [address] [place] [address] [place] Calcium [Mass/Vol] 8.7 mg/dL Normal 8.6-10.3 [facility] Comment on above: Order Comment: Reaso n for Exam Crohns disease Performed By: #### C BC, CMP #### [facility] [address] [place] [address] [place] CO2 [Moles/Vol] 29.7 mmol/L Normal 21.0-31.0 [facility] Comment on above: Order Comment: Reaso n for Exam Crohns disease Performed By: #### C BC, CMP #### [facility] [address] Creatinine [Mass/Vol] 1.08 mg/dL Normal 0.70-1.30 [facility] Comment on above: Order Comment: Reaso n for Exam Crohns disease Performed By: #### C BC, CMP #### [facility] [address] [place] [address] [place] GFR/1.73 sq M.predicted MDRD (S/P/Bld) [Vol rate/Area] mL/min/{1.73_m2} Normal [facility] Other Comment on above: Order Comment: Reaso n for Exam Crohns disease Performed By: #### C BC, CMP #### [facility] [address] [place] [address] Globulin (S) [Mass/Vol] 2.2 g/dL Normal [facility] Comment on above: Order Comment: Reaso n for Exam Crohns disease Performed By: #### C BC, CMP #### [facility] [address] [place] [address] Potassium [Moles/Vol] 3.3 mmol/L Low 3.5-5.1 [facility] Comment on above: Order Comment: Reaso n for Exam Crohns disease Performed By: #### C BC, CMP #### [facility] [address] [place] [address] Protein [Mass/Vol] 6.0 g/dL Low 6.4-8.9 [facility] Comment on above: Order Comment: Reaso n for Exam Crohns disease Performed By: #### C BC, CMP #### [facility] [address] Comprehensive Metabolic Pane lOrdered By: Enoch Carnes on 04-23-2023 Albumin/Globulin [Mass ratio] 1.7 {ratio} Normal [facility] Comment on above: Order Comment: Reaso n for Exam Crohns disease Performed By: #### C BC, CMP #### [facility] [address] ALP [Catalytic activity/Vol] 45 U/L Normal 34-104 [facility] Comment on above: Order Comment: Reaso n for Exam Crohns disease Result Comment: PERF ORMED BY: [place] [address] PATHOLOGIST FINANCIAL SERVICES AUDITOR ANIYA BRUCE M.D. Performed By: #### C BC, CMP #### [address] ALT [Catalytic activity/Vol] 12 U/L Normal 7-52 [facility] Comment on above: Order Comment: Reaso n for Exam Crohns disease Performed By: #### C BC, CMP #### [address] AST [Catalytic activity/Vol] 11 U/L Low 13-39 [facility] Comment on above: Order Comment: Reaso n for Exam Crohns disease Performed By: #### C BC, CMP #### [address] Chloride [Moles/Vol] 106 mmol/L Normal 98-107 [facility] Comment on above: Order Comment: Reaso n for Exam Crohns disease Performed By: #### C BC, CMP #### [address] Glucose [Mass/Vol] 140 mg/dL High 70-100 [facility] Comment on above: Order Comment: Reaso n for Exam Crohns disease Result Comment: [place] om Glucose Reference Range is dependent on time and content of last meal. Glucose of more than 200 mg/dL in a nonstressed, ambulatory subject supports the diagnosis of Diabetes Mellitus. ADA recommended reference range Performed By: #### C BC, CMP #### [address] ADA recommended refe rence rangeRandom Glucose Reference Range is dependent on time and content of last meal. Glucose of more than 200 mg/dL in a nonstressed, ambulatory subject supports the diagnosis of Diabetes Mellitus. Sodium [Moles/Vol] 141 mmol/L Normal 136-145 [facility] Comment on above: Order Comment: Reaso n for Exam Crohns disease Performed By: #### C BC, CMP #### [facility] [address] Urea nitrogen [Mass/Vol] 15 mg/dL Normal 7-25 [facility] Comment on above: Order Comment: Reaso n for Exam Crohns disease Performed By: #### C BC, CMP #### [facility] [address] Creatinine [Mass/volume] in Serum or PlasmaOrdered By: Enoch Carnes on 04-23-2023 Creatinine [Mass/Vol] 1.08 mg/dL 0.70-1.30 [facility] Eosinophils Auto (Bld) [#/Vo l]Ordered By: Enoch Carnes on 04-23-2023 Eosinophils (Bld) [#/Vol] 0.1 10*3/uL 0.0-0.45 [facility] Eosinophils/100 WBC Auto (Bl d)Ordered By: Enoch Carnes on 04-23-2023 Eosinophils/100 WBC (Bld) 1.4 % . [facility] Erythrocyte distribution wid th Auto (RBC) [Ratio]Ordered By: Enoch Carnes on 04-23-2023 Erythrocyte distribution width (RBC) [Ratio] 19.1 % 12.0-14.8 [facility] Globulin Calc (S) [Mass/Vol] Ordered By: Enoch Carnes on 04-23-2023 Globulin (S) [Mass/Vol] 2.2 g/dL [facility] Hematocrit Auto (Bld) [Volum e fraction]Ordered By: Enoch Carnes on 04-23-2023 Hematocrit (Bld) [Volume fraction] 25.3 % 38.8-50.0 [facility] Hemoglobin [Mass/volume] in BloodOrdered By: Enoch Carnes on 04-23-2023 Hemoglobin (Bld) [Mass/Vol] 7.7 g/dL 13.0-17.0 [facility] Leukocytes [#/volume] correc miguel for nucleated erythrocytes in Blood by Automated counOrdered By: Enoch Carnes on 04-23-2023 WBC corrected for nucl RBC Auto (Bld) [#/Vol] 9.8 10*3/uL 4.1-10.5 [facility] Lymphocytes Auto (Bld) [#/Vo l]Ordered By: Enoch Carnes on 04-23-2023 Lymphocytes (Bld) [#/Vol] 0.7 10*3/uL 1.00-4.8 [facility] Lymphocytes/100 WBC Auto (Bl d)Ordered By: Enoch Carnes on 04-23-2023 Lymphocytes/100 WBC (Bld) 7.2 % . [facility] MCH Auto (RBC) [Entitic mass ]Ordered By: Enoch Carnes on 04-23-2023 MCH (RBC) [Entitic mass] 22.0 pg 27.5-35.2 [facility] MCHC Auto (RBC) [Mass/Vol]Or dered By: Enoch Carnes on 04-23-2023 MCHC (RBC) [Mass/Vol] 30.3 g/dL 32.5-35.[address] [facility] MCV Auto (RBC) [Entitic vol] Ordered By: Enoch Carnes on 04-23-2023 MCV (RBC) [Entitic vol] 72.5 fL 83.5-101 [facility] Monocytes Auto (Bld) [#/Vol] Ordered By: Enoch Carnes on 04-23-2023 Monocytes (Bld) [#/Vol] 0.8 10*3/uL 0.0-0.8 [facility] Monocytes/100 WBC Auto (Bld) Ordered By: Enoch Carnes on 04-23-2023 Monocytes/100 WBC (Bld) 8.0 % . [facility] Neutrophils Auto (Bld) [#/Vo l]Ordered By: Enoch Carnes on 04-23-2023 Neutrophils (Bld) [#/Vol] 8.1 10*3/uL 1.8-7.7 [facility] Neutrophils/100 WBC Auto (Bl d)Ordered By: Enoch Carnes on 04-23-2023 Neutrophils/100 WBC (Bld) 82.6 % . [facility] No Panel InformationOrdered By: Enoch Carnes on 04-23-2023 Estimated GFR (CKD-EPI) > 60.0 mL/Min [facility] Creatinine Clearance (Chem N/A [facility] Nucleated erythrocytes [Pres ence] in Blood by Automated countOrdered By: Enoch Carnes on 04-23-2023 Nucleated RBC Auto Ql (Bld) 0.1 /100{WBC} 0-0.5 [facility] Platelet mean volume Auto (B ld) [Entitic vol]Ordered By: Enoch Carnes on 04-23-2023 Platelet mean volume (Bld) [Entitic vol] 7.5 fL 6.6-10.1 [facility] Platelets Auto (Bld) [#/Vol] Ordered By: Enoch Carnes on 04-23-2023 Platelets (Bld) [#/Vol] 359 10*3/uL 150-450 [facility] Potassium [Moles/volume] in Serum or PlasmaOrdered By: Enoch Carnes on 04-23-2023 Potassium [Moles/Vol] 3.3 mmol/L 3.5-5.1 [facility] Protein [Mass/volume] in Ser um or PlasmaOrdered By: Enoch Carnes on 04-23-2023 Protein [Mass/Vol] 6.0 g/dL 6.4-8.9 [facility] RBC Auto (Bld) [#/Vol]Ordere d By: Enoch Carnes on 04-23-2023 RBC (Bld) [#/Vol] 3.49 10*6/uL 3.90-5.[address] [facility] Serum or plasma anion gap de terminationOrdered By: Enoch Carnes on 04-23-2023 Anion gap [Moles/Vol] 8.6 mmol/L 6.0-15.0 [facility] WBC Auto (Bld) [#/Vol]Ordere d By: Enoch Carnes on 04-23-2023 WBC (Bld) [#/Vol] 9.8 10*3/uL 4.1-10.5 [facility] Office Visiton 02-18-2023 Follow-up visit [id number] Ayo Alicia 1960 Date Provider Department Center 02/18/2023 DARREN ROLLINS [facility] Family History Problem Relation Age of Onset Atrial fibrillation Mother Other Mother Other Mother Coronary artery disease Father Family Status - Relation Status Age at Mother Father Level of Service:70903 [place] OFFICE/OUTPATIENT ESTABLISHED MOD MDM 30-39 MIN Reason for Visit and Comments: Follow-up [035460] - 2 month follow up [facility] Follow-Upon 12-24-2022 Follow-Up [id number] Ayo Alicia Rose 1960 M Date Provider Department Center 12/24/2022 1596-PAULINE MELENDZE CARD [facility] Family History Problem Relation Age of Onset Atrial fibrillation Mother Other Mother Other Mother Coronary artery disease Father Family Status - Relation Status Age at Mother Father Level of Service:19691 [place] OFFICE/OUTPATIENT ESTABLISHED MOD MDM 30-39 MIN [facility] Telephoneon 12-12-2022 Telephone [id number] EmersonAyo Rodriguez 1960 Date Provider Department Center 12/12/20221986-DANIELLA ABURTO [facility] Family History Problem Relation Age of Onset Atrial fibrillation Mother Other Mother Other Mother Coronary artery disease Father Family Status - Relation Status Age at Mother Father Reason for Visit and Comments: 3 week post ablation f/u [Other] [facility] Telephoneon 11-28-2022 Telephone [id number] Ayo Alicia Rose 1960 Date Provider Department Center 11/28/2022 1987-DANIELLA ABUTRO [facility] Family History Problem Relation Age of Onset Atrial fibrillation Mother Other Mother Other Mother Coronary artery disease Father Family Status - Relation Status Age at Mother Father Reason for Visit and Comments: week f/u post ablation [Other] [facility] 29on 11-21-2022 29 Addendum created 11/21/22 1344 by Terry Kathleen MD Order list changed, Pharmacy for encounter modified [facility] Anesthesiaon 11-21-2022 Anesthesia [id number] Ayo Alicia Rose 1960 Date Provider Department Center 11/21/2022 417TERRY LITTLEJOHN [facility] Family History Problem Relation Age of Onset Atrial fibrillation Mother Other Mother Other Mother Coronary artery disease Father Family Status - Relation Status Age at Mother Father Marvin [facility] DSon 11-21-2022 DS Admission Admitted 11/21/2022 for [...] Your Medications These medications were sent to [facility] [address] [address] famotidine 20 mg tablet sucralfate 1 gram tablet Activity Patient currently has no discharge activity orders Diet Patient currently has no discharge diet orders Allergies Patient has no known allergies. Hospital Course ATRIAL FIBRILLATION ABLATION PROCEDURE NOTE DATE OF PROCEDURE: 11/21/2022 PERFORMING PHYSICIAN: Dr. Darren Laboy LAMINATOR PREFORMS: Dr Bacilio Olmedo CONSENT: Patient NAME OF [...] ablation. He was recently hospitalized at the [facility] for A-fib RVR and is markedly symptomatic. [...] Coumadin ridge. Esophagus was mapped using the [employer] 3D mapping software and noted to be [...] was noted to (more content not included)... [facility] Attestation signed by Darren Laboy MD [...] ablation. He was recently hospitalized at the [facility] for A-fib RVR where he was started [...] no peripher (more content not included)... Normal [facility] NURSNOTEon 11-21-2022 NURSNOTE Discharge instructions reviewed at bedside with patient . All questions answered at this time Maria Isabel Fonseca COLLECTIONS CURATOR Normal [facility] NURSNOTE EKG at bedside Maria Isabel Fonseca COLLECTIONS CURATOR Normal [facility] Orders Onlyon 11-21-2022 Orders Only [id number] Ayo Alicia 1960 M Date Provider Department Center 11/21/20221986-DANIELLA ABURTO [facility] Family History Problem Relation Age of Onset Atrial fibrillation Mother Other Mother Other Mother Coronary artery disease Father Family Status - Relation Status Age at Mother Father Normal [facility] POCT GLUCOSE METER UNSOLICIT ED RESULTSon 11-21-2022 Glucose [Mass/Vol] 144 mg/dL High 70-105 [facility] Comment on above: Result Comment: epaw low Performed By: #### L [id number] ####[facility] ([facility])[address] [place] [address] PROTIME-INRon 11-21-2022 INR IN PPP BY COAGULATION ASSAY 1.12 High 0.90-1.10 [facility] Comment on above: Result Comment: ACCC P [...] CHEST 1995;108:[id number]. Performed By: #### L [id number] ####[facility] [facility] [place] [address] PROTHROMBIN TIME (PT) IN PPP BY COAGULATION ASSAY 14.3 Seconds Normal 12.3-14.8 [facility] Comment on above: Performed By: #### L [id number] ####[facility] ([facility])[address] [place] [address] Office Visiton 11-08-2022 Follow-up visit [id number] Ayo Alicia 1960 M Date Provider Department Center 11/08/2022 Pato6-PAULINE MELENDEZ Family History Problem Relation Age of Onset Atrial fibrillation Mother Other Mother Other Mother Coronary artery disease Father Family Status - Relation Status Age at Mother Father Level of Service:94997 OK OFFICE/OUTPATIENT ESTABLISHED MOD MDM 30-39 MIN Reason for Visit and Comments: Atrial Fibrillation [80] H&P [Other] Normal [facility] CBC AUTO DIFFon 11-01-2022 BASO # 0.1 103/ul Normal 0.0-0.1 [facility] Comment on above: Performed By: #### C MREP #### [facility] [address] [place] [address] Dr. Sayda Kapoor Basophils/100 WBC (Bld) 0.7 % Normal 0.2-2.0 [facility] Comment on above: Performed By: #### C MREP #### [facility] [address] [place] [address] Dr. Sayda Kapoor EO # 0.1 103/ul Normal 0.0-0.7 [facility] Comment on above: Performed By: #### C MREP #### [facility] [address] [place] [address] Dr. Sayda Kapoor Eosinophils/100 WBC (Bld) 1.4 % Normal 0.9-7.0 [facility] Comment on above: Performed By: #### C MREP #### [facility] [address] [place] [address] Dr. Sayda Kapoor Erythrocyte distribution width (RBC) [Ratio] 15.9 % Critically high 11.0-15.0 [facility] Comment on above: Performed By: #### C MREP #### [facility] [address] [place] [address] Dr. Sayda Kapoor Hematocrit (Bld) [Volume fraction] 31.5 % Critically low 42.0-54.0 [facility] Comment on above: Performed By: #### C MREP #### [facility] [address] [place] [address] Dr. Sayda Kapoor Hemoglobin (Bld) [Mass/Vol] 9.1 g/dL Critically low 14.0-18.0 [facility] Comment on above: Performed By: #### C MREP #### [facility] [address] [place] [address] Dr. Sayda Kapoor IG # 0.20 10e3/ul Critically high 0.00-0.03 [facility] Comment on above: Performed By: #### C MREP #### [facility] [address] [address] [address] Sayda Kapoor IG % 2.3 % Critically high 0.0-0.5 [facility] Comment on above: Performed By: #### C MREP #### [facility] [address] [address] [address] Sayda Kapoor LYMPH # 0.8 103/ul Critically low 1.2-3.8 [facility] Comment on above: Performed By: #### C MREP #### [facility] [address] [address] [address] Sayda Kapoor Lymphocytes/100 WBC (Bld) 9.4 % Critically low 20.5-60.0 [facility] Comment on above: Performed By: #### C MREP #### [facility] [address] [place] [address] Dr. Sayda Kapoor MANUAL DIFF REQ NO Normal [facility] Comment on above: Performed By: #### C MREP #### [facility] [address] [address] [address] Sayda Kapoor MCH (RBC) [Entitic mass] 22.9 pg Critically low 25.9-34.0 [facility] Comment on above: Performed By: #### C MREP #### [facility] [address] [place] [address] Dr. Sayda Kapoor MCHC (RBC) [Mass/Vol] 28.9 g/dL Critically low 29.9-35.2 [facility] Comment on above: Performed By: #### C MREP #### [facility] [address] [place] [address] Dr. Sayda Kapoor MCV (RBC) [Entitic vol] 79.1 fL Critically low 80.0-94. 0 [facility] Comment on above: Performed By: #### C MREP #### [facility] [address] [place] [address] Dr. Sayda Kapoor MONO # 0.6 103/ul Normal 0.3-0.8 [facility] Comment on above: Performed By: #### C MREP #### [facility] [address] [address] [address] Sayda Kapoor Monocytes/100 WBC (Bld) 7.2 % Normal 1.7-12.0 [facility] Comment on above: Performed By: #### C MREP #### [facility] [address] [place] [address] Dr. Sayda Kapoor NEUT # 6.9 103/ul Critically high 1.4-6.5 [facility] Comment on above: Performed By: #### C MREP #### [facility] [address] [place] [address] Dr. Sayda Kapoor Neutrophils/100 WBC (Bld) 79.0 % Critically high 43.0-75.0 [facility] Comment on above: Performed By: #### C MREP #### [facility] [address] [place] [address] Dr. Sayda Kapoor Platelet mean volume (Bld) [Entitic vol] 9.1 fL Critically low 9.5-13.5 [facility] Comment on above: Performed By: #### C MREP #### [facility] [address] [place] [address] Dr. Sayda Kapoor PLT 416 103/ul Normal 150-450 [facility] Comment on above: Performed By: #### C MREP #### [facility] [address] [place] [address] Dr. Sayda Kapoor RBC 3.98 106/ul Critically low 4.70-6.10 [facility] Comment on above: Performed By: #### C MREP #### [facility] [address] [place] [address] Dr. Sayda Kapoor WBC 8.8 103/ul Normal 4.0-11.0 [facility] Comment on above: Performed By: #### C MREP #### [facility] [address] [place] [address] Dr. Sayda Kapoor PROF CHEM 8 (BAS METB)on Anion gap [Moles/Vol] 9.0 mmol/L Normal [facility] Comment on above: Performed By: #### B ENOLOGIST, CMP, LIPA, TONI #### [facility] [address] [place] [address] Dr. Sayda Kapoor Calcium [Mass/Vol] 8.2 mg/dL Critically low 8.5-10.1 [facility] Comment on above: Performed By: #### B ENOLOGIST, CMP, LIPA, TONI #### [facility] [address] [place] [address] Dr. Sayda Kapoor Chloride [Moles/Vol] 104 mmol/L Normal 98-107 [facility] Comment on above: Performed By: #### B ENOLOGIST, CMP, LIPA, TONI #### [facility] [address] [place] [address] Dr. Sayda Kapoor CO2 [Moles/Vol] 32.5 mmol/L Critically high 21.0-32.0 [facility] Comment on above: Performed By: #### B ENOLOGIST, CMP, LIPA, TONI #### [facility] [address] [place] [address] Dr. Sayda Kapoor Creatinine [Mass/Vol] 0.93 mg/dL Normal 0.70-1.30 [facility] Comment on above: Performed By: #### B ENOLOGIST, CMP, LIPA, TONI #### [facility] [address] [place] [address] Dr. Sayda Kapoor EGFR-AF CITIZEN [place] >60 Normal >=[address] [facility] Comment on above: Performed By: #### B ENOLOGIST, CMP, LIPA, TONI #### [facility] [address] [place] [address] Dr. Sayda Kapoor EGFR-NON AF CITIZEN OF [place] >60 Normal >=60 [facility] Comment on above: Performed By: #### B ENOLOGIST, CMP, LIPA, TONI #### [facility] [address] [place] [address] Dr. Sayda Kapoor Glucose [Mass/Vol] 145 mg/dL Critically high 74-106 [facility] Comment on above: Performed By: #### B ENOLOGIST, CMP, LIPA, TONI #### [facility] [address] [place] [address] Dr. Sayda Kapoor Potassium [Moles/Vol] 3.5 mmol/L Normal 3.5-5.1 [facility] Comment on above: Performed By: #### B ENOLOGIST, CMP, LIPA, TONI #### [facility] [address] [place] [address] Dr. Sayda Kapoor Sodium [Moles/Vol] 142 mmol/L Normal 136-145 [facility] Comment on above: Performed By: #### B ENOLOGIST, CMP, LIPA, TONI #### [facility] [address] [place] [address] Dr. Sayda Kapoor Urea nitrogen [Mass/Vol] 20.0 mg/dL Critically high 7.0-18.0 [facility] Comment on above: Performed By: #### B ENOLOGIST, CMP, LIPA, TONI #### [facility] [address] [place] [address] Dr. Sayda Kapoor Urea nitrogen/Creatinine [Mass ratio] 21.5 mg/mg Normal [facility] Comment on above: Performed By: #### B ENOLOGIST, CMP, LIPA, TONI #### [facility] [address] [place] [address] Dr. Sayda Kapoor BNPon 10-23-2022 Natriuretic peptide B (Bld) [Mass/Vol] 2297.0 pg/mL Critically high <=900.0 [facility] Comment on above: Performed By: #### C MREP #### [facility] [address] [place] [address] Dr. Sayda Kaopor CBC AUTO DIFFon 10-23-2022 BASO # 0.1 103/ul Normal 0.0-0.1 [facility] Comment on above: Performed By: #### D IG #### [facility] [address] [place] [address] Dr. Sayda Kapoor Basophils/100 WBC (Bld) 0.7 % Normal 0.2-2.0 [facility] Comment on above: Performed By: #### D IG #### [facility] [address] [place] [address] Dr. Sayda Kapoor EO # 0.1 103/ul Normal 0.0-0.7 [facility] Comment on above: Performed By: #### D IG #### [facility] [address] [address] [address] Sayda Kapoor Eosinophils/100 WBC (Bld) 1.9 % Normal 0.9-7.0 [facility] Comment on above: Performed By: #### D IG #### [facility] [address] [place] [address] Dr. Sayda Kapoor Erythrocyte distribution width (RBC) [Ratio] 15.6 % Critically high 11.0-15.0 [facility] Comment on above: Performed By: #### D IG #### [facility] [address] [place] [address] Dr. Sayda Kapoor Hematocrit (Bld) [Volume fraction] 29.1 % Critically low 42.0-54.0 [facility] Comment on above: Performed By: #### D IG #### [facility] [address] [place] [address] Dr. Sayda Kapoor Hemoglobin (Bld) [Mass/Vol] 8.4 g/dL Critically low 14.0-18.0 [facility] Comment on above: Performed By: #### D IG #### [facility] [address] [place] [address] Dr. Sayda Kapoor IG # 0.06 10e3/ul Critically high 0.00-0.03 [facility] Comment on above: Performed By: #### D IG #### [facility] [address] [place] [address] Dr. Sayda Kapoor IG % 0.8 % Critically high 0.0-0.5 [facility] Comment on above: Performed By: #### D IG #### [facility] [address] [address] [address] Sayda Kapoor LYMPH # 1.1 103/ul Critically low 1.2-3.8 [facility] Comment on above: Performed By: #### D IG #### [facility] [address] [place] [address] Dr. Sayda Kapoor Lymphocytes/100 WBC (Bld) 14.8 % Critically low 20.5-60.0 [facility] Comment on above: Performed By: #### D IG #### [facility] [address] [address] [address] Sayda Kapoor MANUAL DIFF REQ NO Normal [facility] Comment on above: Performed By: #### D IG #### [facility] [address] [address] [address] Sayda Kapoor MCH (RBC) [Entitic mass] 23.3 pg Critically low 25.9-34.0 [facility] Comment on above: Performed By: #### D IG #### [facility] [address] [place] [address] Dr. Sayda Kapoor MCHC (RBC) [Mass/Vol] 28.9 g/dL Critically low 29.9-35.2 [facility] Comment on above: Performed By: #### D IG #### [facility] [address] [place] [address] Dr. Sayda Kapoor MCV (RBC) [Entitic vol] 80.6 fL Normal 80.0-94.0 [facility] Comment on above: Performed By: #### D IG #### [facility] [address] [place] [address] Dr. Sayda Kapoor MONO # 0.7 103/ul Normal 0.3-0.8 [facility] Comment on above: Performed By: #### D IG #### [facility] [address] [place] [address] Dr. Sayda Kapoor Monocytes/100 WBC (Bld) 8.7 % Normal 1.7-12.0 [facility] Comment on above: Performed By: #### D IG #### [facility] [address] [place] [address] Dr. Sayda Kapoor NEUT # 5.5 103/ul Normal 1.4-6.5 [facility] Comment on above: Performed By: #### D IG #### [facility] [address] [place] [address] Dr. Sayda Kapoor Neutrophils/100 WBC (Bld) 73.1 % Normal 43.0-75.0 [facility] Comment on above: Performed By: #### D IG #### [facility] [address] [address] [address] Sayda Kapoor Platelet mean volume (Bld) [Entitic vol] 9.5 fL Normal 9.5-13.5 [facility] Comment on above: Performed By: #### D IG #### [facility] [address] [address] [address] Sayda Kapoor PLT 281 103/ul Normal 150-450 [facility] Comment on above: Performed By: #### D IG #### [facility] [address] [address] [address] Sayda Kapoor RBC 3.61 106/ul Critically low 4.70-6.10 [facility] Comment on above: Performed By: #### D IG #### [facility] [address] [place] [address] Dr. Sayda Kapoor WBC 7.6 103/ul Normal 4.0-11.0 [facility] Comment on above: Performed By: #### D IG #### [facility] [address] [place] [address] Dr. Sayda Kapoor DIGOXINon 10-23-2022 DIG 0.9 ng/mL Normal 0.9-2.0 [facility] Comment on above: Performed By: #### D IG #### [facility] [address] [place] [address] Dr. Sayda Kapoor PROF 14(COMP METB)on 023 Albumin [Mass/Vol] 2.4 g/dL Critically low 3.4-5.0 [facility] Comment on above: Performed By: #### C MREP #### [facility] [address] [address] [address] Sayda Kapoor Albumin/Globulin [Mass ratio] 0.9 {ratio} Normal [facility] Comment on above: Performed By: #### C MREP #### [facility] [address] [place] [address] Dr. Sayda Kapoor ALP [Catalytic activity/Vol] 62 U/L Normal 46-116 [facility] Comment on above: Performed By: #### C MREP #### [facility] [address] [address] [address] Sayda Kapoor ALT [Catalytic activity/Vol] 33 U/L Normal 16-63 [facility] Comment on above: Performed By: #### C MREP #### [facility] [address] [address] [address] Sayda Kapoor Anion gap [Moles/Vol] 8.2 mmol/L Normal [facility] Comment on above: Performed By: #### C MREP #### [facility] [address] [address] [address] Sayda Kapoor AST [Catalytic activity/Vol] 15 U/L Normal 15-37 [facility] Comment on above: Performed By: #### C MREP #### [facility] [address] [address] [address] Sayda Kapoor Bilirubin [Mass/Vol] 1.3 mg/dL Critically high 0.2-1.0 [facility] Comment on above: Performed By: #### C MREP #### [facility] [address] [address] [address] Sayda Kapoor Calcium [Mass/Vol] 7.6 mg/dL Critically low 8.5-10.1 [facility] Comment on above: Performed By: #### C MREP #### [facility] [address] [address] [address] Sayda Kapoor Chloride [Moles/Vol] 105 mmol/L Normal 98-107 [facility] Comment on above: Performed By: #### C MREP #### [facility] [address] [address] [address] Sayda Kapoor CO2 [Moles/Vol] 30.2 mmol/L Normal 21.0-32.[address] [facility] Comment on above: Performed By: #### C MREP #### [facility] [address] [address] [address] Sayda Kapoor Creatinine [Mass/Vol] 1.07 mg/dL Normal 0.70-1.30 [facility] Comment on above: Performed By: #### C MREP #### [facility] [address] [address] [address] Sayda Kapoor EGFR-AF CITIZEN OF [place] >60 Normal >=[address] [facility] Comment on above: Performed By: #### C MREP #### [facility] [address] [address] [address] Sayda Kapoor EGFR-NON AF CITIZEN OF [place] >60 Normal >=60 [facility] Comment on above: Performed By: #### C MREP #### [facility] [address] [address] [address] Sayda Kapoor Globulin (S) [Mass/Vol] 2.7 g/dL Normal [facility] Comment on above: Performed By: #### C MREP #### [facility] [address] [address] [address] Sayda Kapoor Glucose [Mass/Vol] 101 mg/dL Normal 74-106 [facility] Comment on above: Performed By: #### C MREP #### [facility] [address] [address] [address] Sayda Kapoor Potassium [Moles/Vol] 3.4 mmol/L Critically low 3.5-5.1 [facility] Comment on above: Performed By: #### C MREP #### [facility] [address] [address] [address] Sayda Kapoor Protein [Mass/Vol] 5.1 g/dL Critically low 6.4-8.2 [facility] Comment on above: Performed By: #### C MREP #### [facility] [address] [address] [address] Sayad Kapoor Sodium [Moles/Vol] 140 mmol/L Normal 136-145 [facility] Comment on above: Performed By: #### C MREP #### [facility] [address] [address] [address] Sadya Kapoor Urea nitrogen [Mass/Vol] 20.0 mg/dL Critically high 7.0-18.0 [facility] Comment on above: Performed By: #### C MREP #### [facility] [address] [place] [address] Dr. Sayda Kapoor Urea nitrogen/Creatinine [Mass ratio] 18.7 mg/mg Normal [facility] Comment on above: Performed By: #### C MREP #### [facility] [address] [place] [address] Dr. Sayda Kapoor T3, TOTAL (TRIIODOTHYRONINE) on 10-23-2022 T3, TOTAL 93 ng/dL Normal 71-180 [facility] Comment on above: Performed By: #### B ENOLOGIST, CMP, LIPA, TONI #### [facility] [address] [place] [address] Dr. Sayda Kapoor BNPon 10-22-2022 Natriuretic peptide B (Bld) [Mass/Vol] 2419.0 pg/mL Critically high <=900.0 [facility] Comment on above: Performed By: #### B ENOLOGIST, CMP, LIPA, TONI #### [facility] [address] [place] [address] Dr. Sayda Kapoor CARDIAC BETTE 3-6on 3 CK [Catalytic activity/Vol] 88 U/L Normal 39-308 [facility] Comment on above: Performed By: #### Q NTTB #### [facility] [address] [place] [address] Dr. Sayda Kapoor CK.MB [Mass/Vol] 1.44 ng/mL Normal <=3.[address] [facility] Comment on above: Performed By: #### Q NTTB #### [facility] [address] [place] [address] Dr. Sayda Kapoor HSTROP 15.1 pg/mL Normal 4.0-76.1 [facility] Comment on above: Result Comment: CUT- OFF POINTS HAVE BEEN ESTABLISHED BASED ON THE FOURTH UNIVERSAL DEFINITIONS OF MYOCARDIAL INFARCTION. THE UPPER REFERENCE LIMIT (URL) OF TROPONIN, DEFINED THE 99TH PERCENTILE OF cTnI DISTRIBUTION IN A REFERENCE POPULATION, HAS BEEN CONFIRMED THE DECISION THRESHOLD FOR VT DIAGNOSIS. Performed By: #### Q NTTB #### [facility] [address] [place] [address] Dr. Sayda Kapoor CBC AUTO DIFFon 10-22-2022 BASO # 0.1 103/ul Normal 0.0-0.1 [facility] Comment on above: Performed By: #### C BC #### [facility] [address] [place] [address] Dr. Sayda Kapoor Basophils/100 WBC (Bld) 0.5 % Normal 0.2-2.0 [facility] Comment on above: Performed By: #### C BC #### [facility] [address] [place] [address] Dr. Sayda Kapoor EO # 0.2 103/ul Normal 0.0-0.7 [facility] Comment on above: Performed By: #### C BC #### [facility] [address] [place] [address] Dr. Sayda Kapoor Eosinophils/100 WBC (Bld) 1.8 % Normal 0.9-7.0 [facility] Comment on above: Performed By: #### C BC #### [facility] [address] [place] [address] Dr. Sayda Kapoor Erythrocyte distribution width (RBC) [Ratio] 15.7 % Critically high 11.0-15.0 [facility] Comment on above: Performed By: #### C BC #### [facility] [address] [place] [address] Dr. Sayda Kapoor Hematocrit (Bld) [Volume fraction] 27.0 % Critically low 42.0-54.0 [facility] Comment on above: Performed By: #### C BC #### [facility] [address] [place] [address] Dr. Sayda Kapoor Hemoglobin (Bld) [Mass/Vol] 7.9 g/dL Critically low 14.0-18.0 [facility] Comment on above: Performed By: #### C BC #### [facility] [address] [place] [address] Dr. Sayda Kapoor IG # 0.06 10e3/ul Critically high 0.00-0.03 [facility] Comment on above: Performed By: #### C BC #### [facility] [address] [place] [address] Dr. Sayda Kapoor IG % 0.6 % Critically high 0.0-0.5 [facility] Comment on above: Performed By: #### C BC #### [facility] [address] [place] [address] Dr. Sayda Kapoor LYMPH # 1.2 103/ul Normal 1.2-3.8 [facility] Comment on above: Performed By: #### C BC #### [facility] [address] [place] [address] Dr. Sayda Kapoor Lymphocytes/100 WBC (Bld) 13.0 % Critically low 20.5-60.0 [facility] Comment on above: Performed By: #### C BC #### [facility] [address] [place] [address] Dr. Sayda Kapoor MANUAL DIFF REQ NO Normal [facility] Comment on above: Performed By: #### C BC #### [facility] [address] [place] [address] Dr. Sayda Kapoor MCH (RBC) [Entitic mass] 23.1 pg Critically low 25.9-34.0 [facility] Comment on above: Performed By: #### C BC #### [facility] [address] [place] [address] Dr. Sayda Kapoor MCHC (RBC) [Mass/Vol] 29.3 g/dL Critically low 29.9-35.2 [facility] Comment on above: Performed By: #### C BC #### [facility] [address] [place] [address] Dr. Sayda Kapoor MCV (RBC) [Entitic vol] 78.9 fL Critically low 80.0-94. 0 [facility] Comment on above: Performed By: #### C BC #### [facility] [address] [place] [address] Dr. Sayda Kapoor MONO # 0.8 103/ul Normal 0.3-0.8 [facility] Comment on above: Performed By: #### C BC #### [facility] [address] [place] [address] Dr. Sayda Kapoor Monocytes/100 WBC (Bld) 8.0 % Normal 1.7-12.0 [facility] Comment on above: Performed By: #### C BC #### [facility] [address] [place] [address] Dr. Sayda Kapoor NEUT # 7.2 103/ul Critically high 1.4-6.5 [facility] Comment on above: Performed By: #### C BC #### [facility] [address] [place] [address] Dr. Sayda Kapoor Neutrophils/100 WBC (Bld) 76.1 % Critically high 43.0-75.0 [facility] Comment on above: Performed By: #### C BC #### [facility] [address] [place] [address] Dr. Sayda Kapoor Platelet mean volume (Bld) [Entitic vol] 9.9 fL Normal 9.5-13.5 [facility] Comment on above: Performed By: #### C BC #### [facility] [address] [place] [address] Dr. Sayda Kaporo PLT 320 103/ul Normal 150-450 [facility] Comment on above: Performed By: #### C BC #### [facility] [address] [place] [address] Dr. Sayda Kapoor RBC 3.42 106/ul Critically low 4.70-6.10 [facility] Comment on above: Performed By: #### C BC #### [facility] [address] [place] [address] Dr. Sayda Kapoor WBC 9.4 103/ul Normal 4.0-11.0 [facility] Comment on above: Performed By: #### C BC #### [facility] [address] [place] [address] Dr. Sayda Kapoor BASO # 0.0 103/ul Normal 0.0-0.1 [facility] Comment on above: Performed By: #### D IG #### [facility] [address] [place] [address] Dr. Sayda Kapoor Basophils/100 WBC (Bld) 0.4 % Normal 0.2-2.0 [facility] Comment on above: Performed By: #### D IG #### [facility] [address] [place] [address] Dr. Sayda Kapoor EO # 0.1 103/ul Normal 0.0-0.7 [facility] Comment on above: Performed By: #### D IG #### [facility] [address] [place] [address] Dr. Sayda Kapoor Eosinophils/100 WBC (Bld) 1.0 % Normal 0.9-7.0 [facility] Comment on above: Performed By: #### D IG #### [facility] [address] [place] [address] Dr. Sayda Kapoor Erythrocyte distribution width (RBC) [Ratio] 15.8 % Critically high 11.0-15.0 [facility] Comment on above: Performed By: #### D IG #### [facility] [address] [place] [address] Dr. Sayda Kapoor Hematocrit (Bld) [Volume fraction] 28.0 % Critically low 42.0-54.0 [facility] Comment on above: Performed By: #### D IG #### [facility] [address] [place] [address] Dr. Sayda Kapoor Hemoglobin (Bld) [Mass/Vol] 8.0 g/dL Critically low 14.0-18.0 [facility] Comment on above: Performed By: #### D IG #### [facility] [address] [place] [address] Dr. Sayda Kapoor IG # 0.03 10e3/ul Normal 0.00-0.03 [facility] Comment on above: Performed By: #### D IG #### [facility] [address] [place] [address] Dr. Sayda Kapoor IG % 0.4 % Normal 0.0-0.5 [facility] Comment on above: Performed By: #### D IG #### [facility] [address] [place] [address] Dr. Sayda Kapoor LYMPH # 1.2 103/ul Normal 1.2-3.8 [facility] Comment on above: Performed By: #### D IG #### [facility] [address] [address] [address] Sayda Kapoor Lymphocytes/100 WBC (Bld) 14.3 % Critically low 20.5-60.0 [facility] Comment on above: Performed By: #### D IG #### [facility] [address] [place] [address] Dr. Sayda Kapoor MANUAL DIFF REQ NO Normal [facility] Comment on above: Performed By: #### D IG #### [facility] [address] [place] [address] Dr. Sayda Kapoor MCH (RBC) [Entitic mass] 23.3 pg Critically low 25.9-34.0 [facility] Comment on above: Performed By: #### D IG #### [facility] [address] [place] [address] Dr. Sayda Kapoor MCHC (RBC) [Mass/Vol] 28.6 g/dL Critically low 29.9-35.2 [facility] Comment on above: Performed By: #### D IG #### [facility] [address] [place] [address] Dr. Sayda Kapoor MCV (RBC) [Entitic vol] 81.4 fL Normal 80.0-94.0 [facility] Comment on above: Performed By: #### D IG #### [facility] [address] [place] [address] Dr. Sayda Kapoor MONO # 0.6 103/ul Normal 0.3-0.8 [facility] Comment on above: Performed By: #### D IG #### [facility] [address] [place] [address] Dr. Sayad Kapoor Monocytes/100 WBC (Bld) 7.1 % Normal 1.7-12.0 [facility] Comment on above: Performed By: #### D IG #### [facility] [address] [place] [address] Dr. Sayda Kapoor NEUT # 6.2 103/ul Normal 1.4-6.5 [facility] Comment on above: Performed By: #### D IG #### [facility] [address] [address] [address] Sayda Kapoor Neutrophils/100 WBC (Bld) 76.8 % Critically high 43.0-75.0 [facility] Comment on above: Performed By: #### D IG #### [facility] [address] [address] [address] Sayda Kapoor Platelet mean volume (Bld) [Entitic vol] 9.5 fL Normal 9.5-13.5 [facility] Comment on above: Performed By: #### D IG #### [facility] [id number] Sayda Kapoor PLT 252 103/ul Normal 150-450 [facility] Comment on above: Performed By: #### D IG #### [facility] [address] [place] [address] Dr. Sayda Kapoor RBC 3.44 106/ul Critically low 4.70-6.10 [facility] Comment on above: Performed By: #### D IG #### [facility] [id number] Sayda Kapoor WBC 8.1 103/ul Normal 4.0-11.0 [facility] Comment on above: Performed By: #### D IG #### [facility] [address] [place] [address] Dr. Sayda Kapoor CTA CHEST WO W [...] CL POTTS Date: 2022-10-22 09:30 Normal [facility] CULTURE URINEon 10-22-2022 CULTURE URINE Culture Observations: NO GROWTH. Normal [facility] Comment on above: Performed By: #### D IG #### [facility] [address] [place] [address] Dr. Sayda Kapoor DIGOXINon 10-22-2022 DIG 1.4 ng/mL Normal 0.9-2.0 [facility] Comment on above: Performed By: #### B ENOLOGIST, CMP, LIPA, TONI #### [facility] [address] [address] [address] Sayda Kapoor ECHOCARDIO M/2D COMPLETEon 0 10-22-2022 ECHOCARDIO M/2D COMPLETE Patient: AYO ALICIA Exam Date: 10/22/2022 : 1960 Gender:M Ordering : DR PERICO MCCABE . Admission #: [id number] Family : DR GLORIA PAGAN M.D. Order #: [id number] CLICK HERE TO VIEW EXAM ECHOCARDIOGRAM REPORT [...] Whitney M.D. on 10/22/2022 at 16:41 Normal [facility] PROF 14(COMP METB)on 023 Albumin [Mass/Vol] 2.6 g/dL Critically low 3.4-5.0 [facility] Comment on above: Performed By: #### B ENOLOGIST, CMP, LIPA, TONI #### [facility] [address] [place] [address] Dr. Sayda Kapoor Albumin/Globulin [Mass ratio] 1.0 {ratio} Normal [facility] Comment on above: Performed By: #### B ENOLOGIST, CMP, LIPA, TONI #### [facility] [address] [place] [address] Dr. Sayda Kapoor ALP [Catalytic activity/Vol] 61 U/L Normal 46-116 [facility] Comment on above: Performed By: #### B ENOLOGIST, CMP, LIPA, TONI #### [facility] [address] [place] [address] Dr. Sayda Kapoor ALT [Catalytic activity/Vol] 37 U/L Normal 16-63 [facility] Comment on above: Performed By: #### B ENOLOGIST, CMP, LIPA, TONI #### [facility] [address] [place] [address] Dr. Sayda Kapoor Anion gap [Moles/Vol] 11.4 mmol/L Normal [facility] Comment on above: Performed By: #### B ENOLOGIST, CMP, LIPA, TONI #### [facility] [address] [place] [address] Dr. Sayda Kapoor AST [Catalytic activity/Vol] 20 U/L Normal 15-37 [facility] Comment on above: Performed By: #### B ENOLOGIST, CMP, LIPA, TONI #### [facility] [address] [place] [address] Dr. Sayda Kapoor Bilirubin [Mass/Vol] 1.4 mg/dL Critically high 0.2-1.0 [facility] Comment on above: Performed By: #### B ENOLOGIST, CMP, LIPA, TONI #### [facility] [address] [place] [address] Dr. Sayda Kapoor Calcium [Mass/Vol] 8.1 mg/dL Critically low 8.5-10.1 [facility] Comment on above: Performed By: #### B ENOLOGIST, CMP, LIPA, TONI #### [facility] [address] [place] [address] Dr. Sayda Kapoor Chloride [Moles/Vol] 104 mmol/L Normal 98-107 [facility] Comment on above: Performed By: #### B ENOLOGIST, CMP, LIPA, TONI #### [facility] [address] [place] [address] Dr. Sayda Kapoor CO2 [Moles/Vol] 27.6 mmol/L Normal 21.0-32.[address] [facility] Comment on above: Performed By: #### B ENOLOGIST, CMP, LIPA, TONI #### [facility] [address] [place] [address] Dr. Sayda Kapoor Creatinine [Mass/Vol] 1.07 mg/dL Normal 0.70-1.30 [facility] Comment on above: Performed By: #### B ENOLOGIST, CMP, LIPA, TONI #### [facility] [address] [place] [address] Dr. Sayda Kapoor EGFR-AF CITIZEN [place] >60 Normal >=[address] [facility] Comment on above: Performed By: #### B ENOLOGIST, CMP, LIPA, TONI #### [facility] [address] [place] [address] Dr. Sayda Kapoor EGFR-NON AF CITIZEN OF [place] >60 Normal >=60 [facility] Comment on above: Performed By: #### B ENOLOGIST, CMP, LIPA, TONI #### [facility] [address] [place] [address] Dr. Sayda Kapoor Globulin (S) [Mass/Vol] 2.5 g/dL Normal [facility] Comment on above: Performed By: #### B ENOLOGIST, CMP, LIPA, TONI #### [facility] [address] [place] [address] Dr. Sayda Kapoor Glucose [Mass/Vol] 96 mg/dL Normal 74-106 [facility] Comment on above: Performed By: #### B ENOLOGIST, CMP, LIPA, TONI #### [facility] [address] [place] [address] Dr. Sayda Kapoor Potassium [Moles/Vol] 4.0 mmol/L Normal 3.5-5.1 [facility] Comment on above: Performed By: #### B ENOLOGIST, CMP, LIPA, TONI #### [facility] [address] [place] [address] Dr. Sayda Kapoor Protein [Mass/Vol] 5.1 g/dL Critically low 6.4-8.2 [facility] Comment on above: Performed By: #### B ENOLOGIST, CMP, LIPA, TONI #### [facility] [address] [place] [address] Dr. Sayda Kapoor Sodium [Moles/Vol] 139 mmol/L Normal 136-145 [facility] Comment on above: Performed By: #### B ENOLOGIST, CMP, LIPA, TONI #### [facility] [address] [place] [address] Dr. Sayda Kapoor Urea nitrogen [Mass/Vol] 25.0 mg/dL Critically high 7.0-18.0 [facility] Comment on above: Performed By: #### B ENOLOGIST, CMP, LIPA, TONI #### [facility] [address] [place] [address] Dr. Sayda Kapoor Urea nitrogen/Creatinine [Mass ratio] 23.4 mg/mg Normal [facility] Comment on above: Performed By: #### B ENOLOGIST, CMP, LIPA, TONI #### [facility] [address] [place] [address] Dr. Sayda Kapoor UA RANDOM W/MICROSCOPICon BACTERIA NONE SEEN Normal NONE SEEN [facility] Comment on above: Performed By: #### D IG #### [facility] [address] [place] [address] Dr. Sayda Kapoor Bilirubin Ql (U) Negative Normal NEGATIVE [facility] Comment on above: Performed By: #### D IG #### [facility] [address] [place] [address] Dr. Sayda Kapoor CAST NONE SEEN Normal NONE SEEN [facility] Comment on above: Performed By: #### D IG #### [facility] [address] [place] [address] Dr. Sayda Kapoor Clarity (U) CLEAR Normal CLEAR [facility] Comment on above: Performed By: #### D IG #### [facility] [address] [place] [address] Dr. Sayda Kapoor Color (U) YELLOW Normal YELLOW [facility] Comment on above: Performed By: #### D IG #### [facility] [address] [place] [address] Dr. Sayda Kapoor Crystals LM Nom (Urine sed) NONE SEEN Normal NONE SEEN [facility] Comment on above: Performed By: #### D IG #### [facility] [address] [place] [address] Dr. Sayda Kapoor Epithelial cells LM Ql (Urine sed) NONE SEEN Normal NONE SEEN /RARE [facility] Comment on above: Performed By: #### D IG #### [facility] [address] [place] [address] Dr. Sayda Kapoor Glucose Ql (U) Negative Normal NEGATIVE [facility] Comment on above: Performed By: #### D IG #### [facility] [address] [place] [address] Dr. Sayda Kapoor Hemoglobin Ql (U) TRACE-INTACT Abnormal NEGATIVE [facility] Comment on above: Performed By: #### D IG #### [facility] [address] [place] [address] Dr. Sayda Kapoor Ketones Ql (U) Negative Normal NEGATIVE [facility] Comment on above: Performed By: #### D IG #### [facility] [address] [place] [address] Dr. Sayda Kapoor LEUKOCYTES Negative Normal NEGATIVE [facility] Comment on above: Performed By: #### D IG #### [facility] [address] [place] [address] Dr. Sayda Kapoor MUCOUS TRACE Abnormal NONE SEEN [facility] Comment on above: Performed By: #### D IG #### [facility] [address] [place] [address] Dr. Sayda Kapoor Nitrite Ql (U) Negative Normal NEGATIVE [facility] Comment on above: Performed By: #### D IG #### [facility] [address] [place] [address] Dr. Sayda Kapoor pH (U) 6.0 [pH] Normal 5-9 [facility] Comment on above: Performed By: #### D IG #### [facility] [address] [place] [address] Dr. Sayda Kapoor RBC 0-2 Normal 0-2 [facility] Comment on above: Performed By: #### D IG #### [facility] [address] [place] [address] Dr. Sayda Kapoor SPEC GRAVITY 1.020 Normal 1.005-<=1.02 5 [facility] Comment on above: Performed By: #### D IG #### [facility] [address] [place] [address] Dr. Sayda Kapoor UA PROTEIN 30 mg/dl Abnormal NEGATIVE/ TRACE [facility] Comment on above: Performed By: #### D IG #### [facility] [address] [place] [address] Dr. Sayda Kapoor Urobilinogen Qn (U) 1.0 {Rosi'U}/dL Normal 0.2 - 1. 0 [facility] Comment on above: Performed By: #### D IG #### [facility] [address] [place] [address] Dr. Sayda Kapoor WBC NONE SEEN Normal NONE SEEN [facility] Comment on above: Performed By: #### D IG #### [facility] [address] [place] [address] Dr. Sayda Kapoor BNPon 10-21-2022 Natriuretic peptide B (Bld) [Mass/Vol] 4504.0 pg/mL Critically high <=900.0 [facility] Comment on above: Performed By: #### Q NTTB #### [facility] [address] [place] [address] Dr. Sayda Kapoor CARDIAC BETTE 3-6on 3 CK [Catalytic activity/Vol] 111 U/L Normal 39-308 [facility] Comment on above: Performed By: #### C MREP #### [facility] [address] [place] [address] Dr. Sayda Kapoor CK.MB [Mass/Vol] 1.72 ng/mL Normal <=3.60 [facility] Comment on above: Performed By: #### C MREP #### [facility] [address] [place] [address] Dr. Sayda Kapoor HSTROP 15.2 pg/mL Normal 4.0-76.1 [facility] Comment on above: Result Comment: CUT- OFF POINTS HAVE BEEN ESTABLISHED BASED ON THE FOURTH UNIVERSAL DEFINITIONS OF MYOCARDIAL INFARCTION. THE UPPER REFERENCE LIMIT (URL) OF TROPONIN, DEFINED THE 99TH PERCENTILE OF cTnI DISTRIBUTION IN A REFERENCE POPULATION, HAS BEEN CONFIRMED THE DECISION THRESHOLD FOR VT DIAGNOSIS. Performed By: #### C MREP #### [facility] [address] [place] [address] Dr. Sayda Kapoor CARDIAC BETTE ADMITon 023 CK [Catalytic activity/Vol] 114 U/L Normal 39-308 [facility] Comment on above: Performed By: #### Q NTTB #### [facility] [address] [place] [address] Dr. Sayda Kapoor CK.MB [Mass/Vol] 1.94 ng/mL Normal <=3.60 [facility] Comment on above: Performed By: #### Q NTTB #### [facility] [address] [place] [address] Dr. Sayda Kapoor HSTROP 17.4 pg/mL Normal 4.0-76.1 [facility] Comment on above: Result Comment: CUT- OFF POINTS HAVE BEEN ESTABLISHED BASED ON THE FOURTH UNIVERSAL DEFINITIONS OF MYOCARDIAL INFARCTION. THE UPPER REFERENCE LIMIT (URL) OF TROPONIN, DEFINED THE 99TH PERCENTILE OF cTnI DISTRIBUTION IN A REFERENCE POPULATION, HAS BEEN CONFIRMED THE DECISION THRESHOLD FOR VT DIAGNOSIS. Performed By: #### Q NTTB #### [facility] [address] [place] [address] Dr. Sayda Kapoor TAIWO 105 ng/mL Critically high 16-96 [facility] Comment on above: Performed By: #### Q NTTB #### [facility] [address] [place] [address] Dr. Sayda Kapoor CBC AUTO DIFFon 10-21-2022 BASO # 0.0 103/ul Normal 0.0-0.1 [facility] Comment on above: Performed By: #### C MREP #### [facility] [address] [place] [address] Dr. Sayda Kapoor Basophils/100 WBC (Bld) 0.3 % Normal 0.2-2.0 [facility] Comment on above: Performed By: #### C MREP #### [facility] [address] [place] [address] Dr. Sayda Kapoor EO # 0.0 103/ul Normal 0.0-0.7 [facility] Comment on above: Performed By: #### C MREP #### [facility] [address] [place] [address] Dr. Sayda Kapoor Eosinophils/100 WBC (Bld) 0.1 % Critically low 0.9-7.0 [facility] Comment on above: Performed By: #### C MREP #### [facility] [address] [address] [address] Sayda Kapoor Erythrocyte distribution width (RBC) [Ratio] 15.6 % Critically high 11.0-15.0 [facility] Comment on above: Performed By: #### C MREP #### [facility] [address] [place] [address] Dr. Sayda Kapoor Hematocrit (Bld) [Volume fraction] 29.7 % Critically low 42.0-54.0 [facility] Comment on above: Performed By: #### C MREP #### [facility] [address] [place] [address] Dr. Sayda Kapoor Hemoglobin (Bld) [Mass/Vol] 8.7 g/dL Critically low 14.0-18.0 [facility] Comment on above: Performed By: #### C MREP #### [facility] [address] [place] [address] Dr. Sayda Kapoor IG # 0.06 10e3/ul Critically high 0.00-0.03 [facility] Comment on above: Performed By: #### C MREP #### [facility] [address] [place] [address] Dr. Sayda Kapoor IG % 0.6 % Critically high 0.0-0.5 [facility] Comment on above: Performed By: #### C MREP #### [facility] [address] [place] [address] Dr. Sayda Kapoor LYMPH # 1.0 103/ul Critically low 1.2-3.8 [facility] Comment on above: Performed By: #### C MREP #### [facility] [address] [place] [address] Dr. Sayda Kapoor Lymphocytes/100 WBC (Bld) 9.0 % Critically low 20.5-60.0 [facility] Comment on above: Performed By: #### C MREP #### [facility] [address] [place] [address] Dr. Sayda Kapoor MANUAL DIFF REQ NO Normal [facility] Comment on above: Performed By: #### C MREP #### [facility] [address] [address] [address] Sayda Kapoor MCH (RBC) [Entitic mass] 23.6 pg Critically low 25.9-34.0 [facility] Comment on above: Performed By: #### C MREP #### [facility] [address] [place] [address] Dr. Sayda Kapoor MCHC (RBC) [Mass/Vol] 29.3 g/dL Critically low 29.9-35.2 [facility] Comment on above: Performed By: #### C MREP #### [facility] [address] [place] [address] Dr. Sayda Kapoor MCV (RBC) [Entitic vol] 80.5 fL Normal 80.0-94.0 [facility] Comment on above: Performed By: #### C MREP #### [facility] [address] [place] [address] Dr. Sayda Kapoor MONO # 0.7 103/ul Normal 0.3-0.8 [facility] Comment on above: Performed By: #### C MREP #### [facility] [address] [place] [address] Dr. Sayda Kapoor Monocytes/100 WBC (Bld) 6.0 % Normal 1.7-12.0 [facility] Comment on above: Performed By: #### C MREP #### [facility] [address] [place] [address] Dr. Sayda Kapoor NEUT # 9.1 103/ul Critically high 1.4-6.5 [facility] Comment on above: Performed By: #### C MREP #### [facility] [address] [place] [address] Dr. Sayda Kapoor Neutrophils/100 WBC (Bld) 84.0 % Critically high 43.0-75.0 [facility] Comment on above: Performed By: #### C MREP #### [facility] [address] [place] [address] Dr. Sayda Kapoor Platelet mean volume (Bld) [Entitic vol] 10.1 fL Normal 9.5-13.5 [facility] Comment on above: Performed By: #### C MREP #### [facility] [address] [address] [address] Sayda Kapoor PLT 374 103/ul Normal 150-450 [facility] Comment on above: Performed By: #### C MREP #### [facility] [address] [address] [address] Sayda Kapoor RBC 3.69 106/ul Critically low 4.70-6.10 [facility] Comment on above: Performed By: #### C MREP #### [facility] [address] [address] [address] Sayda Kapoor WBC 10.8 103/ul Normal 4.0-11.0 [facility] Comment on above: Performed By: #### C MREP #### [facility] [address] [place] [address] Dr. Sayda Kapoor [facility] SARS-CoV-2 (COVID-19) RNA KAT+probe Ql (Unsp spec) Not detected Normal NOT DETECTED [facility] Comment on above: Result Comment: When diagnostic [...] for this test is supported by the Second Worker of Health and Human Service's declaration that [...] used). Performed By: #### D IG #### [facility] [address] [place] [address] Dr. Sayda Kapoor LACTATE/LACTIC ACIDon 2022 Lactate [Moles/Vol] 2.5 mmol/L Critically high 0.4-1.9 [facility] Comment on above: Performed By: #### Q NTTB #### [facility] [address] [place] [address] Dr. Sayda Kapoor Lactate [Moles/Vol] 2.3 mmol/L Critically high 0.4-1.9 [facility] Comment on above: Performed By: #### B ENOLOGIST, CMP, LIPA, TONI #### [facility] [address] [place] [address] Dr. Sayda Kapoor PROF 14(COMP METB)on 023 Albumin [Mass/Vol] 2.8 g/dL Critically low 3.4-5.0 [facility] Comment on above: Performed By: #### Q NTTB #### [facility] [address] [place] [address] Dr. Sayda Kapoor Albumin/Globulin [Mass ratio] 0.9 {ratio} Normal [facility] Comment on above: Performed By: #### Q NTTB #### [facility] [address] [place] [address] Dr. Sayda Kapoor ALP [Catalytic activity/Vol] 66 U/L Normal 46-116 [facility] Comment on above: Performed By: #### Q NTTB #### [facility] [address] [place] [address] Dr. Sayda Kapoor ALT [Catalytic activity/Vol] 41 U/L Normal 16-63 [facility] Comment on above: Performed By: #### Q NTTB #### [facility] [address] [place] [address] Dr. Sayda Kapoor Anion gap [Moles/Vol] 11.9 mmol/L Normal [facility] Comment on above: Performed By: #### Q NTTB #### [facility] [address] [place] [address] Dr. Sayda Kapoor AST [Catalytic activity/Vol] 22 U/L Normal 15-37 [facility] Comment on above: Performed By: #### Q NTTB #### [facility] [address] [address] [address] Sayda Kapoor Bilirubin [Mass/Vol] 1.3 mg/dL Critically high 0.2-1.0 [facility] Comment on above: Performed By: #### Q NTTB #### [facility] [address] [address] [address] Sayda Kapoor Calcium [Mass/Vol] 8.1 mg/dL Critically low 8.5-10.1 [facility] Comment on above: Performed By: #### Q NTTB #### [facility] [address] [address] [address] Sayda Kapoor Chloride [Moles/Vol] 105 mmol/L Normal 98-107 [facility] Comment on above: Performed By: #### Q NTTB #### [facility] [address] [place] [address] Dr. Sayda Kapoor CO2 [Moles/Vol] 27.4 mmol/L Normal 21.0-32.[address] [facility] Comment on above: Performed By: #### Q NTTB #### [facility] [address] [place] [address] Dr. Sayda Kapoor Creatinine [Mass/Vol] 1.44 mg/dL Critically high 0.70-1.30 [facility] Comment on above: Performed By: #### Q NTTB #### [facility] [address] [place] [address] Dr. Sayda Kapoor EGFR-AF [place]IZEN [place] 60 mL/min/1.73m2 Normal >=60 [facility] Comment on above: Performed By: #### Q NTTB #### [facility] [address] [place] [address] Dr. Sayda Kapoor EGFR-NON AF CITIZEN OF [place] 50 mL/min/1.73m2 Critically low >=60 [facility] Comment on above: Performed By: #### Q NTTB #### [facility] [address] [place] [address] Dr. Sayda Kapoor Globulin (S) [Mass/Vol] 3.0 g/dL Normal [facility] Comment on above: Performed By: #### Q NTTB #### [facility] [address] [address] [address] Sayda Kapoor Glucose [Mass/Vol] 132 mg/dL Critically high 74-106 [facility] Comment on above: Performed By: #### Q NTTB #### [facility] [address] [address] [address] Sayda Kapoor Potassium [Moles/Vol] 4.3 mmol/L Normal 3.5-5.1 [facility] Comment on above: Performed By: #### Q NTTB #### [facility] [address] [address] [address] Sayda Kapoor Protein [Mass/Vol] 5.8 g/dL Critically low 6.4-8.2 [facility] Comment on above: Performed By: #### Q NTTB #### [facility] [address] [place] [address] Dr. Sayda Kapoor Sodium [Moles/Vol] 140 mmol/L Normal 136-145 [facility] Comment on above: Performed By: #### Q NTTB #### [facility] [address] [address] [address] Sayda Kapoor Urea nitrogen [Mass/Vol] 31.0 mg/dL Critically high 7.0-18.0 [facility] Comment on above: Performed By: #### Q NTTB #### [facility] [address] [place] [address] Dr. Sayda Kapoor Urea nitrogen/Creatinine [Mass ratio] 21.5 mg/mg Normal [facility] Comment on above: Performed By: #### Q NTTB #### [facility] [address] [address] [address] Sayda Kapoor T4on 10-21-2022 T4 [Mass/Vol] 5.00 ug/dL Normal 4.50-12.10 [facility] Comment on above: Performed By: #### Q NTTB #### [facility] [address] [place] [address] Dr. Sayda Kapoor TSHon 10-21-2022 TSH 0.918 uIU/mL Normal 0.358-3.740 [facility] Comment on above: Performed By: #### Q NTTB #### [facility] [address] [address] [address] Sayda Kapoor XR CHEST 1 Von 10-21-2022 XR CHEST 1 V EXAM: XR CHEST 1 V HISTORY: SHORTNESS OF BREATH COMPARISON: None. TECHNIQUE: Portable chest FINDINGS: IMPRESSION: Poor inspiratory effort. No focal consolidation or infiltrate. The heart is not enlarged. No pneumothorax or discrete pleural effusion. Electronically authenticated by: CUBA RO Date: 2022-10-21 18:09 Normal [facility] CREATININEon 10-19-2022 Creatinine [Mass/Vol] 1.21 mg/dL Normal 0.70-1.30 [facility] Comment on above: Performed By: #### B ENOLOGIST, CMP, LIPA, TONI #### [facility] [address] [address] [address] Sayda Kapoor EGFR-AF CITIZEN OF [place] >60 Normal >=[address] [facility] Comment on above: Performed By: #### B ENOLOGIST, CMP, LIPA, TONI #### [facility] [address] [address] [address] Sayda Kapoor EGFR-NON AF CITIZEN OF [place] >60 Normal >=60 [facility] Comment on above: Performed By: #### B ENOLOGIST, CMP, LIPA, TONI #### [facility] [address] [address] [address] Sayda Kapoor Orders Onlyon 10-11-2022 Orders Only [id number] Ayo Alicia 1960 Date Provider Department Center 10/11/2022 [id number]-MOUNIKA POMPA [facility] Family History Problem Relation Age of Onset Atrial fibrillation Mother Other Mother Other Mother Coronary artery disease Father Family Status - Relation Status Age at Mother Father Normal [facility] Prep for Procedureon 023 Prep for Procedure [id number] Ayo Alicia 1960 M Date Provider Department Center 10/01/2022 1987-DANIELLA [facility] Family History Problem Relation Age of Onset Atrial fibrillation Mother Other Mother Other Mother Coronary artery disease Father Family Status - Relation Status Age at Mother Father Normal [facility] Office Visiton 09-24-2022 Follow-up visit [id number] Ayo Alicia 1960 M Date Provider Department Center 09/24/2022 DARREN ROLLINS [facility] Family History Problem Relation Age of Onset Atrial fibrillation Mother Other Mother Other Mother Coronary artery disease Father Family Status - Relation Status Age at Mother Father Level of Service:97440 [place] OFFICE/OUTPATIENT NEW HIGH MDM 60-74 MINUTES Normal [facility] Consultation Noteon 08-05-20 Consultation Note [id number] #[id number]:127 Normal [facility] CBC AUTO DIFFon 07-26-2022 BASO # 0.1 103/ul Normal 0.0-0.1 [facility] Comment on above: Performed By: #### B ENOLOGIST, CMP, LIPA, TONI #### [facility] [address] [place] [address] Dr. Sayda Kapoor Basophils/100 WBC (Bld) 0.8 % Normal 0.2-2.0 [facility] Comment on above: Performed By: #### B ENOLOGIST, CMP, LIPA, TONI #### [facility] [address] [place] [address] Dr. Sayda Kapoor EO # 0.2 103/ul Normal 0.0-0.7 [facility] Comment on above: Performed By: #### B ENOLOGIST, CMP, LIPA, TONI #### [facility] [address] [place] [address] Dr. Sayda Kapoor Eosinophils/100 WBC (Bld) 2.9 % Normal 0.9-7.0 [facility] Comment on above: Performed By: #### B ENOLOGIST, CMP, LIPA, TONI #### [facility] [address] [place] [address] Dr. Sayda Kapoor Erythrocyte distribution width (RBC) [Ratio] 14.3 % Normal 11.0-15.0 [facility] Comment on above: Performed By: #### B ENOLOGIST, CMP, LIPA, TONI #### [facility] [address] [place] [address] Dr. Sayda Kapoor Hematocrit (Bld) [Volume fraction] 31.5 % Critically low 42.0-54.0 [facility] Comment on above: Performed By: #### B ENOLOGIST, CMP, LIPA, TONI #### [facility] [address] [place] [address] Dr. Sayad Kapoor Hemoglobin (Bld) [Mass/Vol] 10.1 g/dL Critically low 14.0-18.0 [facility] Comment on above: Performed By: #### B ENOLOGIST, CMP, LIPA, TONI #### [facility] [address] [place] [address] Dr. Sayda Kapoor IG # 0.07 10e3/ul Critically high 0.00-0.03 [facility] Comment on above: Performed By: #### B ENOLOGIST, CMP, LIPA, TONI #### [facility] [address] [place] [address] Dr. Sayda Kapoor IG % 1.1 % Critically high 0.0-0.5 [facility] Comment on above: Performed By: #### B ENOLOGIST, CMP, LIPA, TONI #### [facility] [address] [place] [address] Dr. Sayda Kapoor LYMPH # 1.1 103/ul Critically low 1.2-3.8 [facility] Comment on above: Performed By: #### B ENOLOGIST, CMP, LIPA, TONI #### [facility] [address] [place] [address] Dr. Sayda Kapoor Lymphocytes/100 WBC (Bld) 17.1 % Critically low 20.5-60.0 [facility] Comment on above: Performed By: #### B ENOLOGIST, CMP, LIPA, TONI #### [facility] [address] [place] [address] Dr. Sayda Kapoor MANUAL DIFF REQ NO Normal [facility] Comment on above: Performed By: #### B ENOLOGIST, CMP, LIPA, TONI #### [facility] [address] [place] [address] Dr. Sayda Kapoor MCH (RBC) [Entitic mass] 27.2 pg Normal 25.9-34.0 [facility] Comment on above: Performed By: #### B ENOLOGIST, CMP, LIPA, TONI #### [facility] [address] [place] [address] Dr. Sayda Kapoor MCHC (RBC) [Mass/Vol] 32.1 g/dL Normal 29.9-35.2 [facility] Comment on above: Performed By: #### B ENOLOGIST, CMP, LIPA, TONI #### [facility] [address] [place] [address] Dr. Sayda Kapoor MCV (RBC) [Entitic vol] 84.7 fL Normal 80.0-94.0 [facility] Comment on above: Performed By: #### B ENOLOGIST, CMP, LIPA, TONI #### [facility] [address] [place] [address] Dr. Sayda Kapoor MONO # 0.7 103/ul Normal 0.3-0.8 [facility] Comment on above: Performed By: #### B ENOLOGIST, CMP, LIPA, TONI #### [facility] [address] [place] [address] Dr. Sayda Kapoor Monocytes/100 WBC (Bld) 10.4 % Normal 1.7-12.0 [facility] Comment on above: Performed By: #### B ENOLOGIST, CMP, LIPA, TONI #### [facility] [address] [place] [address] Dr. Sayda Kapoor NEUT # 4.5 103/ul Normal 1.4-6.5 [facility] Comment on above: Performed By: #### B ENOLOGIST, CMP, LIPA, TONI #### [facility] [address] [place] [address] Dr. Sayda Kapoor Neutrophils/100 WBC (Bld) 67.7 % Normal 43.0-75.0 [facility] Comment on above: Performed By: #### B ENOLOGIST, CMP, LIPA, TONI #### [facility] [address] [place] [address] Dr. Sayda Kapoor Platelet mean volume (Bld) [Entitic vol] 9.0 fL Critically low 9.5-13.5 [facility] Comment on above: Performed By: #### B ENOLOGIST, CMP, LIPA, TONI #### [facility] [address] [address] [address] Sayda Kapoor PLT 318 103/ul Normal 150-450 [facility] Comment on above: Performed By: #### B ENOLOGIST, CMP, LIPA, TONI #### [facility] [address] [address] [address] Sayda Kapoor RBC 3.72 106/ul Critically low 4.70-6.10 [facility] Comment on above: Performed By: #### B ENOLOGIST, CMP, LIPA, TONI #### [facility] [address] [address] [address] Sayda Kapoor WBC 6.6 103/ul Normal 4.0-11.0 [facility] Comment on above: Performed By: #### B ENOLOGIST, CMP, LIPA, TONI #### [facility] [address] [place] [address] Dr. Sayda Kapoor FERRITINon 07-26-2022 Ferritin [Mass/Vol] 19.0 ng/mL Critically low 26.0-388.0 [facility] Comment on above: Performed By: #### B ENOLOGIST, CMP, LIPA, TONI #### [facility] [address] [place] [address] Dr. Sayda Kapoor IRON AND TIBCon 07-26-2022 % SATURATION 10.0 % Normal [facility] Comment on above: Performed By: #### B ENOLOGIST, CMP, LIPA, TONI #### [facility] [address] [place] [address] Dr. Sayda Kapoor Iron [Mass/Vol] 30.0 ug/dL Critically low 65.0-175.0 [facility] Comment on above: Performed By: #### B ENOLOGIST, CMP, LIPA, TONI #### [facility] [address] [place] [address] Dr. Sayda Kapoor TIBC DIRECT 299.0 ug/dL Normal 250.0-450.0 [facility] Comment on above: Performed By: #### B ENOLOGIST, CMP, LIPA, TONI #### [facility] [address] [address] [address] Sayda Kapoor PANCREATIC ELASTASE FECALon 07-19-2022 Pancreatic Elastase, Fecal 466 ug Elast./g Normal >200 [facility] Comment on above: Result Comment: Serenity re Pancreatic Insufficiency: <100 Moderate Pancreatic Insufficiency: 100 - 200 Normal: >200 Performed By: #### C MREP #### [facility] [address] [address] [address] Sayda Kapoor BOWEL DISORDERS EVALUATION R ULE-OUT CASCon 07-18-2022 Antigliadin 1 units Normal 0-19 [facility] Comment on above: Result Comment: Nega tive 0 - 19 Weak Positive 20 - 30 Moderate to Strong Positive >30 . Performed By: #### B ENOLOGIST, CMP, LIPA, TONI #### [facility] [address] [address] [address] Sayda Kapoor Atypical pANCA Negative Normal Negative [facility] Comment on above: Performed By: #### B ENOLOGIST, CMP, LIPA, TONI #### [facility] [address] [address] [address] Sayda Kapoor Note: Kerman continues Normal [facility] Comment on above: Performed By: #### B ENOLOGIST, CMP, LIPA, TONI #### [facility] [address] [address] [address] Sayda Kapoor Note: Comment Normal [facility] Comment on above: Result Comment: Sugg estive of irritable bowel syndrome (IBS). Careful evaluation of the patient's history, physical examination, and application of Sanford III diagnostic criteria may help to rule in or rule out the diagnosis of IBS. Subsequent testing for Fecal Calprotectin (874492) may be recommended. If IBD is strongly suspected, subsequent testing with the Crohn's Disease Prognostic Profile (672071) that includes anti- glycan antibodies AMCA, ALCA, ACCA, and Sarbjit may aid in differential diagnosis. Performed By: #### B ENOLOGIST, CMP, LIPA, TONI #### [facility] [address] [address] [address] Sayda Kapoor Saccharomyces Cer. IgG <20.0 Normal 0.0-24.9 [facility] Comment on above: Result Comment: Nega tive <20.0 Equivocal 20.1 - 24.9 Positive >or= 25.0 Performed By: #### B ENOLOGIST, CMP, LIPA, TONI #### [facility] [address] [place] [address] Dr. Sayda Kapoor tTG/DGP SCR Negative Normal Negative [facility] Comment on above: Performed By: #### B ENOLOGIST, CMP, LIPA, TONI #### [facility] [address] [address] [address] Sayda Kapoor LACTOFERRIN FECAL QUANTon Lactoferrin, Fecal, Quant. 35.24 ug/mL(g) Critically high 0.00-7.24 [facility] Comment on above: Result Comment: Re sults [...] (IBS). Performed By: #### D IG #### [facility] [address] [place] [address] Dr. Sayda Kapoor QUANTIFERON TB GOLD PLUSon 1 09-15-2021 QuantiFERON Criteria Comment Normal [facility] Comment on above: Result Comment: Colt tiFERON-TB [...] test. Performed By: #### Q NTTB #### [facility] [address] [place] [address] Dr. Sayda Kapoor QuantiFERON Incubation Incubation performed. Normal [facility] Comment on above: Performed By: #### Q NTTB #### [facility] [address] [place] [address] Dr. Sayda Kapoor QuantiFERON Mitogen Value 8.53 IU/mL Normal [facility] Comment on above: Performed By: #### Q NTTB #### [facility] [address] [place] [address] Dr. Sayda Kapoor QuantiFERON Nil Value 0.04 IU/mL Normal [facility] Comment on above: Performed By: #### Q NTTB #### [facility] [address] [place] [address] Dr. Sayda Kapoor QuantiFERON TB1 Ag Value 0.07 IU/mL Normal [facility] Comment on above: Performed By: #### Q NTTB #### [facility] [address] [place] [address] Dr. Sayda Kapoor QuantiFERON TB2 Ag Value 0.04 IU/mL Normal [facility] Comment on above: Performed By: #### Q NTTB #### [facility] [address] [place] [address] Dr. Sayda Kapoor QuantiFERON-TB Gold Plus Negative Normal Negative [facility] Comment on above: Result Comment: No r esponse to M tuberculosis antigens detected. Infection with M tuberculosis is unlikely, but high risk individuals should be considered for additional testing (ATS/IDSA/CDC Clinical Practice Guidelines, 2017). The reference range is an Antigen minus Nil result of <0.35 IU/mL. Chemiluminescence immunoassay methodology Performed By: #### Q NTTB #### [facility] [address] [place] [address] Dr. Sayda Kapoor CALPROTECTIN, FECALon 2021 Calprotectin, Fecal 247 ug/g Critically high 0-120 [facility] Comment on above: Result Comment: Conc entration Interpretation Follow-Up <16 - 50 ug/g Normal None >50 -120 ug/g Borderline Re-evaluate in 4-6 weeks >120 ug/g Abnormal Repeat as clinically indicated Performed By: #### C MREP #### [facility] [address] [place] [address] Dr. Sayda Kapoor HEP B COREon 07-13-2022 Hep B Core Ab, Tot Negative Normal Negative [facility] Comment on above: Performed By: #### H BCORE #### [facility] [address] [place] [address] Dr. Sayda Kapoor HEP B SURFACE ANTIGEN SCREEN on 07-13-2022 HBsAg Screen Negative Normal Negative [facility] Comment on above: Performed By: #### B ENOLOGIST, CMP, LIPA, TONI #### [facility] [address] [place] [address] Dr. Sayda Kapoor CBC AUTO DIFFon 07-11-2022 BASO # 0.1 103/ul Normal 0.0-0.1 [facility] Comment on above: Performed By: #### C BC #### [facility] [address] [place] [address] Dr. Sayda Kapoor Basophils/100 WBC (Bld) 0.8 % Normal 0.2-2.0 [facility] Comment on above: Performed By: #### C BC #### [facility] [address] [place] [address] Dr. Sayda Kapoor EO # 0.2 103/ul Normal 0.0-0.7 [facility] Comment on above: Performed By: #### C BC #### [facility] [address] [place] [address] Dr. Sayda Kapoor Eosinophils/100 WBC (Bld) 3.3 % Normal 0.9-7.0 [facility] Comment on above: Performed By: #### C BC #### [facility] [address] [place] [address] Dr. Sayda Kapoor Erythrocyte distribution width (RBC) [Ratio] 14.6 % Normal 11.0-15.0 [facility] Comment on above: Performed By: #### C BC #### [facility] [address] [place] [address] Dr. Sayda Kapoor Hematocrit (Bld) [Volume fraction] 29.7 % Critically low 42.0-54.0 [facility] Comment on above: Performed By: #### C BC #### [facility] [address] [place] [address] Dr. Sayda Kapoor Hemoglobin (Bld) [Mass/Vol] 9.5 g/dL Critically low 14.0-18.0 [facility] Comment on above: Performed By: #### C BC #### [facility] [address] [place] [address] Dr. Sayda Kapoor IG # 0.03 10e3/ul Normal 0.00-0.03 [facility] Comment on above: Performed By: #### C BC #### [facility] [address] [place] [address] Dr. Sayda Kapoor IG % 0.4 % Normal 0.0-0.5 [facility] Comment on above: Performed By: #### C BC #### [facility] [address] [place] [address] Dr. Sayda Kapoor LYMPH # 1.0 103/ul Critically low 1.2-3.8 [facility] Comment on above: Performed By: #### C BC #### [facility] [address] [place] [address] Dr. Sayda Kapoor Lymphocytes/100 WBC (Bld) 13.6 % Critically low 20.5-60.0 [facility] Comment on above: Performed By: #### C BC #### [facility] [address] [place] [address] Dr. Sayda Kapoor MANUAL DIFF REQ NO Normal [facility] Comment on above: Performed By: #### C BC #### [facility] [address] [place] [address] Dr. Sayda Kapoor MCH (RBC) [Entitic mass] 27.6 pg Normal 25.9-34.0 [facility] Comment on above: Performed By: #### C BC #### [facility] [address] [place] [address] Dr. Sayda Kapoor MCHC (RBC) [Mass/Vol] 32.0 g/dL Normal 29.9-35.2 [facility] Comment on above: Performed By: #### C BC #### [facility] [address] [place] [address] Dr. Sayda Kapoor MCV (RBC) [Entitic vol] 86.3 fL Normal 80.0-94.0 [facility] Comment on above: Performed By: #### C BC #### [facility] [address] [place] [address] Dr. Sayda Kapoor MONO # 0.6 103/ul Normal 0.3-0.8 [facility] Comment on above: Performed By: #### C BC #### [facility] [address] [place] [address] Dr. Sayda Kapoor Monocytes/100 WBC (Bld) 8.6 % Normal 1.7-12.0 [facility] Comment on above: Performed By: #### C BC #### [facility] [address] [place] [address] Dr. Sayda Kapoor NEUT # 5.2 103/ul Normal 1.4-6.5 [facility] Comment on above: Performed By: #### C BC #### [facility] [address] [place] [address] Dr. Sayda Kapoor Neutrophils/100 WBC (Bld) 73.3 % Normal 43.0-75.0 [facility] Comment on above: Performed By: #### C BC #### [facility] [address] [place] [address] Dr. Sayda Kapoor Platelet mean volume (Bld) [Entitic vol] 8.9 fL Critically low 9.5-13.5 [facility] Comment on above: Performed By: #### C BC #### [facility] [address] [place] [address] Dr. Sayda Kapoor PLT 242 103/ul Normal 150-450 [facility] Comment on above: Performed By: #### C BC #### [facility] [address] [place], [place] [id number] Dr. Sayda Kapoor RBC 3.44 106/ul Critically low 4.70-6.10 [facility] Comment on above: Performed By: #### C BC #### [facility] [address] [place] [address] Dr. Sayda Kapoor WBC 7.1 103/ul Normal 4.0-11.0 [facility] Comment on above: Performed By: #### C BC #### [facility] [address] [address] [address] Sayda Kapoor CRPon 07-11-2022 CRP 0.5 mg/dL Normal <=1.0 [facility] Comment on above: Performed By: #### Q NTTB #### [facility] [address] [place] [address] Dr. Sayda Kapoor PROF 14(COMP METB)on 022 Albumin [Mass/Vol] 2.9 g/dL Critically low 3.4-5.0 [facility] Comment on above: Performed By: #### Q NTTB #### [facility] [address] [place] [address] Dr. Sayda Kapoor Albumin/Globulin [Mass ratio] 0.9 {ratio} Normal [facility] Comment on above: Performed By: #### Q NTTB #### [facility] [address] [place] [address] Dr. Sayda Kapoor ALP [Catalytic activity/Vol] 60 U/L Normal 46-116 [facility] Comment on above: Performed By: #### Q NTTB #### [facility] [address] [place] [address] Dr. Sayda Kapoor ALT [Catalytic activity/Vol] 15 U/L Critically low 16-63 [facility] Comment on above: Performed By: #### Q NTTB #### [facility] [address] [place] [address] Dr. Sayda Kapoor Anion gap [Moles/Vol] 8.6 mmol/L Normal [facility] Comment on above: Performed By: #### Q NTTB #### [facility] [address] [place] [address] Dr. Sayda Kapoor AST [Catalytic activity/Vol] 10 U/L Critically low 15-37 [facility] Comment on above: Performed By: #### Q NTTB #### [facility] [address] [place] [address] Dr. Sayda Kapoor Bilirubin [Mass/Vol] 0.3 mg/dL Normal 0.2-1.0 [facility] Comment on above: Performed By: #### Q NTTB #### [facility] [address] [address] [address] Sayda Kapoor Calcium [Mass/Vol] 8.4 mg/dL Critically low 8.5-10.1 [facility] Comment on above: Performed By: #### Q NTTB #### [facility] [address] [address] [address] Sayda Kapoor Chloride [Moles/Vol] 104 mmol/L Normal 98-107 [facility] Comment on above: Performed By: #### Q NTTB #### [facility] [address] [address] [address] Sayda Kapoor CO2 [Moles/Vol] 29.2 mmol/L Normal 21.0-32.[address] [facility] Comment on above: Performed By: #### Q NTTB #### [facility] [address] [address] [address] Sayda Kapoor Creatinine [Mass/Vol] 1.04 mg/dL Normal 0.70-1.30 [facility] Comment on above: Performed By: #### Q NTTB #### [facility] [address] [address] [address] Sayda Kapoor EGFR-AF [place]IZEN [place] >60 Normal >=[address] [facility] Comment on above: Performed By: #### Q NTTB #### [facility] [address] [address] [address] Sayda Kapoor EGFR-NON AF [place]IZEN OF [place] >60 Normal >=60 [facility] Comment on above: Performed By: #### Q NTTB #### [facility] [address] [address] [address] Sayda Kapoor Globulin (S) [Mass/Vol] 3.4 g/dL Normal [facility] Comment on above: Performed By: #### Q NTTB #### [facility] [address] [address] [address] Sayda Kapoor Glucose [Mass/Vol] 93 mg/dL Normal 74-106 [facility] Comment on above: Performed By: #### Q NTTB #### [facility] [address] [address] [address] Sayda Kapoor Potassium [Moles/Vol] 3.8 mmol/L Normal 3.5-5.1 [facility] Comment on above: Performed By: #### Q NTTB #### [facility] [address] [address] [address] Sayda Kapoor Protein [Mass/Vol] 6.3 g/dL Critically low 6.4-8.2 [facility] Comment on above: Performed By: #### Q NTTB #### [facility] Laboratory [address] [address] [address] Sayda Kapoor Sodium [Moles/Vol] 138 mmol/L Normal 136-145 [facility] Comment on above: Performed By: #### Q NTTB #### [facility] [address] [place] [address] Dr. Sayda Kapoor Urea nitrogen [Mass/Vol] 17.0 mg/dL Normal 7.0-18.0 [facility] Comment on above: Performed By: #### Q NTTB #### [facility] [address] [place] [address] Dr. Sayda Kapoor Urea nitrogen/Creatinine [Mass ratio] 16.3 mg/mg Normal [facility] Comment on above: Performed By: #### Q NTTB #### [facility] [address] [place] [address] Dr. Sayda Kapoor PROTIMEon 07-11-2022 INR Coag (PPP) [Relative time] 1.07 {INR} Normal [facility] Comment on above: Performed By: #### Q NTTB #### [facility] [address] [place] [address] Dr. Sayda Kapoor INR GUIDELINES SEE BELOW Normal [facility] Comment on above: Result Comment: SOPHIE RED INR: 2.0 - 3.0 CONDITIONS NOT LISTED BELOW 2.5 - 3.5 FOR PROSTHETIC HEART VALVE REPLACEMENT 2.5 - 3.5 RECURRENT THROMBOSIS Performed By: #### Q NTTB #### [facility] [address] [place] [address] Dr. Sayda Kapoor PT Coag (PPP) [Time] 11.5 s Normal 9.0-11.6 [facility] Comment on above: Performed By: #### Q NTTB #### [facility] [address] [place] [address] Dr. Sayda Kapoor SED RATE [facility] 2021 SED RATE 16 mm/hr Normal <=20 [facility] Comment on above: Performed By: #### D IG #### [facility] [address] [place] [address] Dr. Sayda Kapoor Scanned GI Testingon 022 Scanned GI Testing [id number] #1.00CD:127 Normal [facility] CBC AUTO DIFFon 07-04-2022 BASO # 0.1 103/ul Normal 0.0-0.1 [facility] Comment on above: Performed By: #### C MREP #### [facility] [address] [place] [address] Dr. Sayda Kapoor Basophils/100 WBC (Bld) 0.6 % Normal 0.2-2.0 [facility] Comment on above: Performed By: #### C MREP #### [facility] [address] [place] [address] Dr. Sayda Kapoor EO # 0.2 103/ul Normal 0.0-0.7 [facility] Comment on above: Performed By: #### C MREP #### [facility] [address] [place] [address] Dr. Sayda Kapoor Eosinophils/100 WBC (Bld) 2.2 % Normal 0.9-7.0 [facility] Comment on above: Performed By: #### C MREP #### [facility] [address] [place] [address] Dr. Sayda Kapoor Erythrocyte distribution width (RBC) [Ratio] 14.7 % Normal 11.0-15.0 [facility] Comment on above: Performed By: #### C MREP #### [facility] [address] [place] [address] Dr. Sayda Kapoor Hematocrit (Bld) [Volume fraction] 31.9 % Critically low 42.0-54.0 [facility] Comment on above: Performed By: #### C MREP #### [facility] [address] [place] [address] Dr. Sayda Kapoor Hemoglobin (Bld) [Mass/Vol] 10.2 g/dL Critically low 14.0-18.0 [facility] Comment on above: Performed By: #### C MREP #### [facility] [address] [place] [address] Dr. Sayda Kapoor IG # 0.09 10e3/ul Critically high 0.00-0.03 [facility] Comment on above: Performed By: #### C MREP #### [facility] [address] [place] [address] Dr. Sayda Kapoor IG % 1.1 % Critically high 0.0-0.5 [facility] Comment on above: Performed By: #### C MREP #### [facility] [address] [place] [address] Dr. Sayda Kapoor LYMPH # 1.2 103/ul Normal 1.2-3.8 [facility] Comment on above: Performed By: #### C MREP #### [facility] [address] [place] [address] Dr. Sayda Kapoor Lymphocytes/100 WBC (Bld) 14.6 % Critically low 20.5-60.0 [facility] Comment on above: Performed By: #### C MREP #### [facility] [address] [place] [address] Dr. Sayda Kapoor MANUAL DIFF REQ NO Normal [facility] Comment on above: Performed By: #### C MREP #### [facility] [address] [place] [address] Dr. Sayda Kapoor MCH (RBC) [Entitic mass] 27.5 pg Normal 25.9-34.0 [facility] Comment on above: Performed By: #### C MREP #### [facility] [address] [place] [address] Dr. Sayda Kapoor MCHC (RBC) [Mass/Vol] 32.0 g/dL Normal 29.9-35.2 [facility] Comment on above: Performed By: #### C MREP #### [facility] [address] [place] [address] Dr. Sayda Kapoor MCV (RBC) [Entitic vol] 86.0 fL Normal 80.0-94.0 [facility] Comment on above: Performed By: #### C MREP #### [facility] [address] [place] [address] Dr. Sayda Kapoor MONO # 0.9 103/ul Critically high 0.3-0.8 [facility] Comment on above: Performed By: #### C MREP #### [facility] [address] [place] [address] Dr. Sayda Kapoor Monocytes/100 WBC (Bld) 10.4 % Normal 1.7-12.0 [facility] Comment on above: Performed By: #### C MREP #### [facility] [address] [place] [address] Dr. Sayda Kapoor NEUT # 5.9 103/ul Normal 1.4-6.5 [facility] Comment on above: Performed By: #### C MREP #### [facility] [address] [place] [address] Dr. Sayda Kapoor Neutrophils/100 WBC (Bld) 71.1 % Normal 43.0-75.0 [facility] Comment on above: Performed By: #### C MREP #### [facility] [address] [place] [address] Dr. Sayda Kapoor Platelet mean volume (Bld) [Entitic vol] 8.8 fL Critically low 9.5-13.5 [facility] Comment on above: Performed By: #### C MREP #### [facility] [address] [place] [address] Dr. Sayda Kapoor PLT 252 103/ul Normal 150-450 [facility] Comment on above: Performed By: #### C MREP #### [facility] [address] [place] [address] Dr. Sayda Kapoor RBC 3.71 106/ul Critically low 4.70-6.10 [facility] Comment on above: Performed By: #### C MREP #### [facility] [address] [address] [address] Sayda Kapoor WBC 8.3 103/ul Normal 4.0-11.0 [facility] Comment on above: Performed By: #### C MREP #### [facility] [address] [address] [address] Sayda Kapoor CRPon 07-04-2022 CRP 1.8 mg/dL Critically high <=1.0 [facility] Comment on above: Performed By: #### B ENOLOGIST, CMP, LIPA, TONI #### [facility] [address] [place] [address] Dr. Sayda Kapoor PROF 14(COMP METB)on 022 Albumin [Mass/Vol] 3.0 g/dL Critically low 3.4-5.0 [facility] Comment on above: Performed By: #### B ENOLOGIST, CMP, LIPA, TONI #### [facility] [address] [place] [address] Dr. Sayda Kapoor Albumin/Globulin [Mass ratio] 1.0 {ratio} Normal [facility] Comment on above: Performed By: #### B ENOLOGIST, CMP, LIPA, TONI #### [facility] [address] [place] [address] Dr. Sayda Kapoor ALP [Catalytic activity/Vol] 54 U/L Normal 46-116 [facility] Comment on above: Performed By: #### B ENOLOGIST, CMP, LIPA, TONI #### [facility] [address] [place] [address] Dr. Sayda Kapoor ALT [Catalytic activity/Vol] 17 U/L Normal 16-63 [facility] Comment on above: Performed By: #### B ENOLOGIST, CMP, LIPA, TONI #### [facility] [address] [place] [address] Dr. Sayda Kapoor Anion gap [Moles/Vol] 6.8 mmol/L Normal [facility] Comment on above: Performed By: #### B ENOLOGIST, CMP, LIPA, TONI #### [facility] [address] [address] [address] Sayda Kapoor AST [Catalytic activity/Vol] 13 U/L Critically low 15-37 [facility] Comment on above: Performed By: #### B ENOLOGIST, CMP, LIPA, TONI #### [facility] [address] [place] [address] Dr. Sayda Kapoor Bilirubin [Mass/Vol] 0.5 mg/dL Normal 0.2-1.0 [facility] Comment on above: Performed By: #### B ENOLOGIST, CMP, LIPA, TONI #### [facility] [address] [place] [address] Dr. Sayda Kapoor Calcium [Mass/Vol] 8.3 mg/dL Critically low 8.5-10.1 [facility] Comment on above: Performed By: #### B ENOLOGIST, CMP, LIPA, TONI #### [facility] [address] [place] [address] Dr. Sayda Kapoor Chloride [Moles/Vol] 102 mmol/L Normal 98-107 [facility] Comment on above: Performed By: #### B ENOLOGIST, CMP, LIPA, TONI #### [facility] [address] [place] [address] Dr. Sayda Kapoor CO2 [Moles/Vol] 31.7 mmol/L Normal 21.0-32.0 [facility] Comment on above: Performed By: #### B ENOLOGIST, CMP, LIPA, TONI #### [facility] [address] [place] [address] Dr. Sayda Kapoor Creatinine [Mass/Vol] 1.03 mg/dL Normal 0.70-1.30 [facility] Comment on above: Performed By: #### B ENOLOGIST, CMP, LIPA, TONI #### [facility] [address] [place] [address] Dr. Sayda Kapoor EGFR-AF CITIZEN [place] >60 Normal >=60 [facility] Comment on above: Performed By: #### B ENOLOGIST, CMP, LIPA, TONI #### [facility] [address] [address] [address] Sayda Kapoor EGFR-NON AF CITIZEN OF [place] >60 Normal >=60 [facility] Comment on above: Performed By: #### B ENOLOGIST, CMP, LIPA, TONI #### [facility] [address] [address] [address] Sayda Kapoor Globulin (S) [Mass/Vol] 3.1 g/dL Normal [facility] Comment on above: Performed By: #### B ENOLOGIST, CMP, LIPA, TONI #### [facility] [address] [place] [address] Dr. Sayda Kapoor Glucose [Mass/Vol] 102 mg/dL Normal 74-106 [facility] Comment on above: Performed By: #### B ENOLOGIST, CMP, LIPA, TONI #### [facility] [address] [place] [address] Dr. Sayda Kapoor Potassium [Moles/Vol] 3.5 mmol/L Normal 3.5-5.1 [facility] Comment on above: Performed By: #### B ENOLOGIST, CMP, LIPA, TONI #### [facility] [address] [place] [address] Dr. Sayda Kapoor Protein [Mass/Vol] 6.1 g/dL Critically low 6.4-8.2 [facility] Comment on above: Performed By: #### B ENOLOGIST, CMP, LIPA, TONI #### [facility] [address] [place] [address] Dr. Sayda Kapoor Sodium [Moles/Vol] 137 mmol/L Normal 136-145 [facility] Comment on above: Performed By: #### B ENOLOGIST, CMP, LIPA, TONI #### [facility] [address] [place] [address] Dr. Sayda Kapoor Urea nitrogen [Mass/Vol] 19.0 mg/dL Critically high 7.0-18.0 [facility] Comment on above: Performed By: #### B ENOLOGIST, CMP, LIPA, TONI #### [facility] [address] [place] [address] Dr. Sayda Kapoor Urea nitrogen/Creatinine [Mass ratio] 18.4 mg/mg Normal [facility] Comment on above: Performed By: #### B ENOLOGIST, CMP, LIPA, TONI #### [facility] [address] [place] [address] Dr. Sayda Kapoor SED RATE WESTERGRENon 2021 SED RATE 17 mm/hr Normal <=20 [facility] Comment on above: Performed By: #### C MREP #### [facility] [address] [place] [address] Dr. Sayda Kapoor Scanned GI Testingon 022 Scanned GI Testing [id number] #1.00CD:127 Normal [facility] Scanned GI Testing [id number] #1.00CD:127 Normal [facility] US SINGLE QUAD RT UPPERon US SINGLE [...] no obstruction observed Electronically authenticated by: CUBA HERNANEDZ Date: 2022-06-23 16:17 Normal [facility] Outside Colonoscopyon 2021 Outside Colonoscopy [id number] #1.00CD:127 Normal [facility] Lab Reportson 05-07-2022 Lab Reports [id number] #1.00CD:127 Normal [facility]on SARS-CoV-2 (COVID-19) RNA KTA+probe Ql (Unsp spec) Not detected Normal NOT DETECTED [facility] Comment on above: Result Comment: This test is not yet approved or cleared by the [place] FDA. When there are no FDA-approved or cleared tests available, and other criteria are met, FDA can make tests available under an emergency access mechanism called an Emergency Use Authorization (EUA). The EUA for this test is supported by the [place] of Health and Human Service's (HHS's) declaration [...] SARS-CoV-2. Performed By: #### C MREP #### [facility] [address] [place] [address] Dr. Sayda Kapoor Consent for Procedure/Surger yon 04-17-2022 Consent for Procedure/Surgery [id number]# 1.00CD:127 Normal [facility] RAD - CT Reporton 04-16-2022 RAD - CT Report [id number] #1.00CD:127 Normal [facility] CT ABD/PELV W CONon 04-14-[address] [...] by: CUBA HERNANDEZ Date: 2022-04-14 14:28 Normal [facility] Consultation Noteon 04-09-20 Consultation Note [id number] #1.00CD:127 Normal [facility] General Surgery Office/Clini c Noteon 04-04-2022 General [...] Tab, 7 (more content not included)... Normal [facility] Comment on above: Result Comment: Elec tronically Signed By: LAZARO DANGELO, Javid Du\.br\Date and Time Signed: 04/04/22 11:03 EDT Consultation Noteon 04-03-20 Consultation Note [id number] #1.00CD:127 Normal [facility] Ambulatory Visit Summaryon 0 04-01-2022 Ambulatory Visit [...] deficiency anemia Nausea Osteoarthritis RUQ pain Normal [facility] PROF 14(COMP METB)on 022 Albumin [Mass/Vol] 2.7 g/dL Critically low 3.4-5.0 [facility] Comment on above: Performed By: #### D IG #### [facility] [address] [place] [address] Dr. Sayda Kapoor Albumin/Globulin [Mass ratio] 0.9 {ratio} Normal [facility] Comment on above: Performed By: #### D IG #### [facility] [address] [place] [address] Dr. Sayda Kapoor ALP [Catalytic activity/Vol] 55 U/L Normal 46-116 [facility] Comment on above: Performed By: #### D IG #### [facility] [address] [place] [address] Dr. Sayda Kapoor ALT [Catalytic activity/Vol] 16 U/L Normal 16-63 [facility] Comment on above: Performed By: #### D IG #### [facility] [address] [place] [address] Dr. Sayda Kapoor Anion gap [Moles/Vol] 13.0 mmol/L Normal [facility] Comment on above: Performed By: #### D IG #### [facility] [address] [place] [address] Dr. Sayda Kapoor AST [Catalytic activity/Vol] 10 U/L Critically low 15-37 [facility] Comment on above: Performed By: #### D IG #### [facility] [address] [address] [address] Sayda Kapoor Bilirubin [Mass/Vol] 0.7 mg/dL Normal 0.2-1.0 [facility] Comment on above: Performed By: #### D IG #### [facility] [address] [place] [address] Dr. Sayda Kapoor Calcium [Mass/Vol] 7.4 mg/dL Critically low 8.5-10.1 [facility] Comment on above: Performed By: #### D IG #### [facility] [address] [place] [address] Dr. Sayda Kapoor Chloride [Moles/Vol] 110 mmol/L Critically high 98-107 [facility] Comment on above: Performed By: #### D IG #### [facility] [address] [place] [address] Dr. Sayda Kapoor CO2 [Moles/Vol] 25.1 mmol/L Normal 21.0-32.[address] [facility] Comment on above: Performed By: #### D IG #### [facility] [address] [place] [address] Dr. Sayda Kapoor Creatinine [Mass/Vol] 1.16 mg/dL Normal 0.70-1.30 [facility] Comment on above: Performed By: #### D IG #### [facility] [address] [place] [address] Dr. Sayda Kapoor EGFR-AF CITIZ[place] >60 Normal >=[address] [facility] Comment on above: Performed By: #### D IG #### [facility] [address] [place] [address] Dr. Sayda Kapoor EGFR-NON AF CITIZEN OF [place] >60 Normal >=60 [facility] Comment on above: Performed By: #### D IG #### [facility] [address] [place] [address] Dr. Sayda Kapoor Globulin (S) [Mass/Vol] 3.0 g/dL Normal [facility] Comment on above: Performed By: #### D IG #### [facility] [address] [place] [address] Dr. Sayda Kapoor Glucose [Mass/Vol] 122 mg/dL Critically high 74-106 [facility] Comment on above: Performed By: #### D IG #### [facility] [address] [place] [address] Dr. Sayda Kapoor Potassium [Moles/Vol] 3.1 mmol/L Critically low 3.5-5.1 [facility] Comment on above: Performed By: #### D IG #### [facility] [address] [place] [address] Dr. Sayda Kpaoor Protein [Mass/Vol] 5.7 g/dL Critically low 6.4-8.2 [facility] Comment on above: Performed By: #### D IG #### [facility] [address] [place] [address] Dr. Sayda Kapoor Sodium [Moles/Vol] 145 mmol/L Normal 136-145 [facility] Comment on above: Performed By: #### D IG #### [facility] [address] [place] [address] Dr. Sayda Kapoor Urea nitrogen [Mass/Vol] 16.0 mg/dL Normal 7.0-18.0 [facility] Comment on above: Performed By: #### D IG #### [facility] [address] [place] [address] Dr. Sayda Kapoor Urea nitrogen/Creatinine [Mass ratio] 13.8 mg/mg Normal [facility] Comment on above: Performed By: #### D IG #### [facility] [address] [place] [address] Dr. Sayda Kapoor Lab Reportson 03-18-2022 Lab Reports [id number]#1.00CD:127 Normal [facility] RAD - Ultrasound Reporton RAD - Ultrasound Report [id number] #1.00CD:127 Normal [facility] PROF 14(COMP METB)on 022 Albumin [Mass/Vol] 3.1 g/dL Critically low 3.4-5.0 [facility] Comment on above: Performed By: #### B ENOLOGIST, CMP, LIPA, TONI #### [facility] [address] [address] [address] Sayda Kapoor Albumin/Globulin [Mass ratio] 0.9 {ratio} Normal [facility] Comment on above: Performed By: #### B ENOLOGIST, CMP, LIPA, TONI #### [facility] [address] [place] [address] Dr. Sayda Kapoor ALP [Catalytic activity/Vol] 67 U/L Normal 46-116 [facility] Comment on above: Performed By: #### B ENOLOGIST, CMP, LIPA, TONI #### [facility] [address] [place] [address] Dr. Sayda Kapoor ALT [Catalytic activity/Vol] 25 U/L Normal 16-63 [facility] Comment on above: Performed By: #### B ENOLOGIST, CMP, LIPA, TONI #### [facility] [address] [place] [address] Dr. Sayda Kapoor Anion gap [Moles/Vol] 10.1 mmol/L Normal [facility] Comment on above: Performed By: #### B ENOLOGIST, CMP, LIPA, TONI #### [facility] [address] [place] [address] Dr. Sayda Kapoor AST [Catalytic activity/Vol] 15 U/L Normal 15-37 [facility] Comment on above: Performed By: #### B ENOLOGIST, CMP, LIPA, TONI #### [facility] [address] [place] [address] Dr. Sayda Kapoor Bilirubin [Mass/Vol] 1.1 mg/dL Critically high 0.2-1.0 [facility] Comment on above: Performed By: #### B ENOLOGIST, CMP, LIPA, TONI #### [facility] [address] [place] [address] Dr. Sayda Kapoor Calcium [Mass/Vol] 8.7 mg/dL Normal 8.5-10.1 [facility] Comment on above: Performed By: #### B ENOLOGIST, CMP, LIPA, TONI #### [facility] [address] [place], [place] [id number] Dr. Sayda Kapoor Chloride [Moles/Vol] 103 mmol/L Normal 98-107 [facility] Comment on above: Performed By: #### B ENOLOGIST, CMP, LIPA, TONI #### [facility] [address] [place] [address] Dr. Sayda Kapoor CO2 [Moles/Vol] 28.7 mmol/L Normal 21.0-32.[address] [facility] Comment on above: Performed By: #### B ENOLOGIST, CMP, LIPA, TONI #### [facility] [address] [place] [address] Dr. Sayda Kapoor Creatinine [Mass/Vol] 1.61 mg/dL Critically high 0.70-1.30 [facility] Comment on above: Performed By: #### B ENOLOGIST, CMP, LIPA, TONI #### [facility] [address] [place] [address] Dr. Sayda Kapoor EGFR-AF [place]IZ[place] 53 mL/min/1.73m2 Critically low >=60 [facility] Comment on above: Performed By: #### B ENOLOGIST, CMP, LIPA, TONI #### [facility] [address] [place] [address] Dr. Sayda Kapoor EGFR-NON AF [place]IZEN OF [place] 44 mL/min/1.73m2 Critically low >=60 [facility] Comment on above: Performed By: #### B ENOLOGIST, CMP, LIPA, TONI #### [facility] [address] [place] [address] Dr. Sayda Kapoor Globulin (S) [Mass/Vol] 3.6 g/dL Normal [facility] Comment on above: Performed By: #### B ENOLOGIST, CMP, LIPA, TONI #### [facility] [address] [place] [address] Dr. Sayda Kapoor Glucose [Mass/Vol] 130 mg/dL Critically high 74-106 [facility] Comment on above: Performed By: #### B ENOLOGIST, CMP, LIPA, TONI #### [facility] [address] [place] [address] Dr. Sayda Kapoor Potassium [Moles/Vol] 3.8 mmol/L Normal 3.5-5.1 [facility] Comment on above: Performed By: #### B ENOLOGIST, CMP, LIPA, TONI #### [facility] [address] [place] [address] Dr. Sayda Kapoor Protein [Mass/Vol] 6.7 g/dL Normal 6.4-8.2 [facility] Comment on above: Performed By: #### B ENOLOGIST, CMP, LIPA, TONI #### [facility] [address] [place] [address] Dr. Sayda Kapoor Sodium [Moles/Vol] 138 mmol/L Normal 136-145 [facility] Comment on above: Performed By: #### B ENOLOGIST, CMP, LIPA, TONI #### [facility] [address] [place] [address] Dr. aSyda Kapoor Urea nitrogen [Mass/Vol] 31.0 mg/dL Critically high 7.0-18.0 [facility] Comment on above: Performed By: #### B ENOLOGIST, CMP, LIPA, TONI #### [facility] [address] [place] [address] Dr. Sayda Kapoor Urea nitrogen/Creatinine [Mass ratio] 19.3 mg/mg Normal [facility] Comment on above: Performed By: #### B ENOLOGIST, CMP, LIPA, TONI #### [facility] [address] [place] [address] Dr. Sayda Kapoor AMYLASEon 03-08-2022 Amylase [Catalytic activity/Vol] 63 U/L Normal 25-115 [facility] Comment on above: Performed By: #### B ENOLOGIST, CMP, LIPA, TONI #### [facility] [address] [place] [address] Dr. Sayda Kapoor BNPon 03-08-2022 Natriuretic peptide B (Bld) [Mass/Vol] 47.0 pg/mL Normal <=900.0 [facility] Comment on above: Performed By: #### B ENOLOGIST, CMP, LIPA, TONI #### [facility] [address] [place] [address] Dr. Sayda Kapoor CBC AUTO DIFFon 03-08-2022 BASO # 0.0 103/ul Normal 0.0-0.1 [facility] Comment on above: Performed By: #### C MREP #### [facility] [address] [place] [address] Dr. Sayda Kapoor Basophils/100 WBC (Bld) 0.5 % Normal 0.2-2.0 [facility] Comment on above: Performed By: #### C MREP #### [facility] [facility] [address] [place] [address] Dr. Sayda Kapoor EO # 0.3 103/ul Normal 0.0-0.7 [facility] Comment on above: Performed By: #### C MREP #### [facility] [address] [place] [address] Dr. Sayda Kapoor Eosinophils/100 WBC (Bld) 3.1 % Normal 0.9-7.0 [facility] Comment on above: Performed By: #### C MREP #### [facility] [address] [place] [address] Dr. Sayda Kapoor Erythrocyte distribution width (RBC) [Ratio] 13.8 % Normal 11.0-15.0 [facility] Comment on above: Performed By: #### C MREP #### [facility] [address] [place] [address] Dr. Sayda Kapoor Hematocrit (Bld) [Volume fraction] 35.0 % Critically low 42.0-54.0 [facility] Comment on above: Performed By: #### C MREP #### [facility] [address] [place] [address] Dr. Sayda Kapoor Hemoglobin (Bld) [Mass/Vol] 11.3 g/dL Critically low 14.0-18.0 [facility] Comment on above: Performed By: #### C MREP #### [facility] [address] [place] [address] Dr. Sayda Kapoor IG # 0.05 10e3/ul Critically high 0.00-0.03 [facility] Comment on above: Performed By: #### C MREP #### [facility] [address] [place] [address] Dr. Sayda Kapoor IG % 0.6 % Critically high 0.0-0.5 [facility] Comment on above: Performed By: #### C MREP #### [facility] [address] [address] [address] Sayda Kapoor LYMPH # 1.0 103/ul Critically low 1.2-3.8 [facility] Comment on above: Performed By: #### C MREP #### [facility] [address] [address] [address] Sayda Kapoor Lymphocytes/100 WBC (Bld) 11.7 % Critically low 20.5-60.0 [facility] Comment on above: Performed By: #### C MREP #### [facility] [address] [place] [address] Dr. Sayda Kapoor MANUAL DIFF REQ NO Normal [facility] Comment on above: Performed By: #### C MREP #### [facility] [address] [address] [address] Sayda Kapoor MCH (RBC) [Entitic mass] 29.0 pg Normal 25.9-34.0 [facility] Comment on above: Performed By: #### C MREP #### [facility] [address] [place] [address] Dr. Sayda Kapoor MCHC (RBC) [Mass/Vol] 32.3 g/dL Normal 29.9-35.2 [facility] Comment on above: Performed By: #### C MREP #### [facility] [address] [place] [address] Dr. Sayda Kapoor MCV (RBC) [Entitic vol] 90.0 fL Normal 80.0-94.0 [facility] Comment on above: Performed By: #### C MREP #### [facility] [address] [place] [address] Dr. Sayda Kapoor MONO # 0.8 103/ul Normal 0.3-0.8 [facility] Comment on above: Performed By: #### C MREP #### [facility] [address] [place] [address] Dr. Sayda Kapoor Monocytes/100 WBC (Bld) 8.9 % Normal 1.7-12.0 [facility] Comment on above: Performed By: #### C MREP #### [facility] [address] [address] [address] Sayda Kapoor NEUT # 6.6 103/ul Critically high 1.4-6.5 [facility] Comment on above: Performed By: #### C MREP #### [facility] [address] [address] [address] Sayda Kapoor Neutrophils/100 WBC (Bld) 75.2 % Critically high 43.0-75.0 [facility] Comment on above: Performed By: #### C MREP #### [facility] [address] [place] [address] Dr. Sayda Kapoor Platelet mean volume (Bld) [Entitic vol] 8.9 fL Critically low 9.5-13.5 [facility] Comment on above: Performed By: #### C MREP #### [facility] [address] [place] [address] Dr. Sayda Kapoor PLT 317 103/ul Normal 150-450 [facility] Comment on above: Performed By: #### C MREP #### [facility] [address] [place] [address] Dr. Sayda Kapoor RBC 3.89 106/ul Critically low 4.70-6.10 [facility] Comment on above: Performed By: #### C MREP #### [facility] [address] [place] [address] Dr. Sayda Kapoor WBC 8.7 103/ul Normal 4.0-11.0 [facility] Comment on above: Performed By: #### C MREP #### [facility] [address] [place] [address] Dr. Sayda Kapoor IRONon 03-08-2022 Iron [Mass/Vol] 42.0 ug/dL Critically low 65.0-175.0 [facility] Comment on above: Performed By: #### B ENOLOGIST, CMP, LIPA, TONI #### [facility] [address] [place] [address] Dr. Sayda Kapoor LIPASEon 03-08-2022 Lipase [Catalytic activity/Vol] 80.0 U/L Normal 73.0-393.0 [facility] Comment on above: Performed By: #### B ENOLOGIST, CMP, LIPA, TONI #### [facility] [address] [place] [address] Dr. Sayda Kapoor PROF 14(COMP METB)on 022 Albumin [Mass/Vol] 3.3 g/dL Critically low 3.4-5.0 [facility] Comment on above: Performed By: #### B ENOLOGIST, CMP, LIPA, TONI #### [facility] [address] [place] [address] Dr. Sayda Kapoor Albumin/Globulin [Mass ratio] 0.8 {ratio} Normal [facility] Comment on above: Performed By: #### B ENOLOGIST, CMP, LIPA, TONI #### [facility] [address] [place] [address] Dr. Sayda Kapoor ALP [Catalytic activity/Vol] 70 U/L Normal 46-116 [facility] Comment on above: Performed By: #### B ENOLOGIST, CMP, LIPA, TONI #### [facility] [address] [place] [address] Dr. Sayda Kapoor ALT [Catalytic activity/Vol] 25 U/L Normal 16-63 [facility] Comment on above: Performed By: #### B ENOLOGIST, CMP, LIPA, TONI #### [facility] [address] [place] [address] Dr. Sayda Kapoor Anion gap [Moles/Vol] 13.7 mmol/L Normal [facility] Comment on above: Performed By: #### B ENOLOGIST, CMP, LIPA, TONI #### [facility] [address] [place] [address] Dr. Sayda Kapoor AST [Catalytic activity/Vol] 15 U/L Normal 15-37 [facility] Comment on above: Performed By: #### B ENOLOGIST, CMP, LIPA, TONI #### [facility] [address] [place], [place] [id number] Dr. Sayda Kapoor Bilirubin [Mass/Vol] 0.8 mg/dL Normal 0.2-1.0 [facility] Comment on above: Performed By: #### B ENOLOGIST, CMP, LIPA, TONI #### [facility] [address] [place] [address] Dr. Sayda Kapoor Calcium [Mass/Vol] 8.7 mg/dL Normal 8.5-10.1 [facility] Comment on above: Performed By: #### B ENOLOGIST, CMP, LIPA, TONI #### [facility] [address] [place] [address] Dr. Sayda Kapoor Chloride [Moles/Vol] 102 mmol/L Normal 98-107 [facility] Comment on above: Performed By: #### B ENOLOGIST, CMP, LIPA, TONI #### [facility] [address] [place] [address] Dr. Sayda Kapoor CO2 [Moles/Vol] 28.1 mmol/L Normal 21.0-32.[address] [facility] Comment on above: Performed By: #### B ENOLOGIST, CMP, LIPA, TONI #### [facility] [address] [place] [address] Dr. Sayda Kapoor Creatinine [Mass/Vol] 2.04 mg/dL Critically high 0.70-1.30 [facility] Comment on above: Performed By: #### B ENOLOGIST, CMP, LIPA, TONI #### [facility] [address] [place] [address] Dr. Sayda Kapoor EGFR-AF [place]IZEN [place] 40 mL/min/1.73m2 Critically low >=60 [facility] Comment on above: Performed By: #### B ENOLOGIST, CMP, LIPA, TONI #### [facility] [address] [place] [address] Dr. Sayda Kapoor EGFR-NON AF CITIZEN OF [place] 33 mL/min/1.73m2 Critically low >=60 [facility] Comment on above: Performed By: #### B ENOLOGIST, CMP, LIPA, TONI #### [facility] [address] [place] [address] Dr. Sayda Kapoor Globulin (S) [Mass/Vol] 3.9 g/dL Normal [facility] Comment on above: Performed By: #### B ENOLOGIST, CMP, LIPA, TONI #### [facility] [address] [place] [address] Dr. Sayda Kapoor Glucose [Mass/Vol] 120 mg/dL Critically high 74-106 [facility] Comment on above: Performed By: #### B ENOLOGIST, CMP, LIPA, TONI #### [facility] [address] [place] [address] Dr. Sayda Kapoor Potassium [Moles/Vol] 3.8 mmol/L Normal 3.5-5.1 [facility] Comment on above: Performed By: #### B ENOLOGIST, CMP, LIPA, TONI #### [facility] [address] [place] [address] Dr. Sayda Kapoor Protein [Mass/Vol] 7.2 g/dL Normal 6.4-8.2 [facility] Comment on above: Performed By: #### B ENOLOGIST, CMP, LIPA, TONI #### [facility] [address] [place] [address] Dr. Sayda Kapoor Sodium [Moles/Vol] 140 mmol/L Normal 136-145 [facility] Comment on above: Performed By: #### B ENOLOGIST, CMP, LIPA, TONI #### [facility] [address] [place] [address] Dr. Sayda Kapoor Urea nitrogen [Mass/Vol] 38.0 mg/dL Critically high 7.0-18.0 [facility] Comment on above: Performed By: #### B ENOLOGIST, CMP, LIPA, TONI #### [facility] [address] [place] [address] Dr. Sayda Kapoor Urea nitrogen/Creatinine [Mass ratio] 18.6 mg/mg Normal [facility] Comment on above: Performed By: #### B ENOLOGIST, CMP, LIPA, TONI #### [facility] [address] [place] [address] Dr. Sayda Kapoor Physician Referralon 022 Physician Referral [id number] Normal [facility] US SINGLE QUAD RT UPPERon US [...] by: CL POTTS Date: 2022-03-08 17:27 Normal [facility] CNOVon 02-12-2021 CNOV Office Visit (UROLMN) AYO ALICIA ([id number]) 1960 Date Time Provider Department 02/12/21 2:00 PM JESSE INFANTE UROBERTHA During your visit today, we recorded the following information about you: Pulse Respiration Blood pressure Weight 74/minute 16/minute 113/68 83.9 kg Jesse Infante MD 02/12/2021 2:58 PM Signed [facility] NEW PATIENT HISTORY AND PHYSICAL EXAM PATIENT INFO: Ayo Alicia 60 year old REFERRING M.D.: Hosea Rust [address] [place] [address] This consult was requested by Dr. Rust for an opinion regarding Peyronie's disease, and my final recommendations will be communicated to the requesting health care provider by way of the shared medical record for internal providers or letter via the [employer] for external providers. HISTORY CHIEF [...] normal. ===== (more content not included)... [facility] 02-12-2021 Bilirubin, Urine Negative Normal Negative [facility] Comment on above: Performed By: #### U A #### [address] [place] [phone] Clarity (U) Clear Normal Clear [facility] Comment on above: Performed By: #### U A #### [address] [place] [phone] Color (U) Yellow Normal Yellow [facility] Comment on above: Performed By: #### U A #### [address] [place] [phone] Comments SEE COMMENT [facility] Comment on above: Result Comment: Micr oscopic not warranted Performed By: #### U A #### [address] [place] [phone] Glucose Ql (U) Negative Normal Negative [facility] Comment on above: Performed By: #### U A #### [address] [place] [phone] Hemoglobin/Blood,Ur Negative Normal Negative [facility] Comment on above: Performed By: #### U A #### [address] [phone] Ketones Ql (U) Negative Normal Negative [facility] Comment on above: Performed By: #### U A #### [facility] [address] [place], [place] [address] Leukest Negative Normal Negative [facility] Comment on above: Performed By: #### U A #### [facility] [address] [place], [place] [address] Nitrite Ql (U) Negative Normal Negative [facility] Comment on above: Performed By: #### U A #### [id number] [place], [place] [address] pH (U) 5.0 [pH] Normal 5.0-8.0 [facility] Comment on above: Performed By: #### U A #### [address] [address] Protein, Urine Negative Normal Negative [facility] Comment on above: Performed By: #### U A #### [address] [id number] Specific [place], Ur 1.019 Normal 1.005-1.030 [facility] Comment on above: Performed By: #### U A #### [id number] [place], [place] [address] Urine Martín Comment SEE COMMENT Normal [facility] Comment on above: Result Comment: N/A Performed By: #### U A #### [address] [phone] Urobilinogen (U) [Mass/Vol] Negative Normal Negative [facility] Comment on above: Performed By: #### U A #### [address] [address] Cardiovascular Lab Report 01-26-2021 Cardiovascular Lab Report [facility] Patient Name: [facility] Ayo MR #: [id number] Department of Physician: Fatuma Garcia M.D. Division of Service Date: 01/26/2021 Cardiology Birthdate: 1960 Adult Cardiovascular Room #: [facility] [address] [address] Cardiovascular Laboratory Report FINAL IMPRESSIONS: 1. Severe, [...] [facility] Cardiology in the [facility] in the next 2 to 3 [...] the right radial artery was obtained. A 6-[place]ine[place] glide sheath was inserted without difficulty. Bilateral selective coronary angiography was performed using a 6-[place]ine[place] TIG catheter. After reviewing the images, it was elected to proceed with an interventional procedure. A 6-[place]ine[place] XB3.0 guide catheter was advanced in over [...] in (more content not included)... Normal [facility] CORONAVIRUS 2019 BY PCRon CORONAVIRUS 2019,PCR DETECTED Abnormal Not Detected [facility] Comment on above: Order Comment: COVID CALLED [...] patient management decisions. Fact sheet for providers: https://www.fda.gov/media/774231/download Fact sheet for patients: https://www.fda.gov/media/403969/download This test has received FDA Emergency Use Authorization (EUA) and has been verified by [facility] ([facility]). This test is only authorized for the duration of time that circumstances exist to justify the authorization of the emergency use of in vitro diagnostic tests for the detection of SARS-CoV-2 virus and/or diagnosis of COVID-19 infection under section 564(b)(1) of the Act, 21 U.S.C. 360bbb-3(b)(1), unless the authorization is terminated or revoked sooner. [facility] is certified under CLIA-88 as qualified to perform high complexity testing. Testing is performed in the [facility] laboratories located at [address] [place] [address]. COVID CALLED TO RICHARD , 07/21/2020 16:56 Performed By: #### C OV19 #### [place] [address] EMPLOYED IN HEALTHCARE? Unknown Normal [facility] Comment on above: Order Comment: COVID CALLED TO RICHARD , 07/21/2020 16:56 Performed By: #### C OV19 #### [place] [id number] FIRST COVID NASAL SWAB TEST? Unknown Normal [facility] Comment on above: Order Comment: COVID CALLED TO RICHARD , 07/21/2020 16:56 Performed By: #### C OV19 #### [facility] [address] [place] [address] HOSPITALIZED (OR PLANNED TO BE ADMITTED)? Unknown Normal [facility] Comment on above: Order Comment: COVID CALLED TO RICHARD , 07/21/2020 16:56 Performed By: #### C OV19 #### [facility] [address] [place] [address] ICU? Unknown Normal [facility] Comment on above: Order Comment: COVID CALLED TO RICHARD , 07/21/2020 16:56 Performed By: #### C OV19 #### [facility] [address] [place] [id number] RESIDENT IN CONGREGATE CARE SETTING? Unknown Normal [facility] Comment on above: Order Comment: COVID CALLED TO RICHARD , 07/21/2020 16:56 Performed By: #### C OV19 #### [facility] [address] [place] [id number] SYMPTOMATIC DEFINED BY CDC? Unknown Normal [facility] Comment on above: Order Comment: COVID CALLED TO RICHARD , 07/21/2020 16:56 Performed By: #### C OV19 #### [facility] [address] [place] [id number] Covid 19 Resultson 0 Covid 19 Results [...] available, clean hands with an alcohol-based hand farmworker fryer farm that contains at least 60% alcohol. Remember [...] 20 seconds or use an alcohol-based hand farmworker fryer farm that contains at least 60% alcohol. Avoid [...] 21-Jul-2020 16:32 by [place] [employer] (ADMIN) Normal [facility] CORONAVIRUS 2019 BY PCRon Lab Specimen Source Nasal, Nasopharyngeal Normal [facility] Comment on above: Order Comment: COVID CALLED TO RICHARD 07/21/2020 16:56 Performed By: #### C OV19 #### [facility] [address] [place] [address] Vital Signs Date Time Vital Sign Value Performing Clinician Facility 09-11-2023 15:00-0500 Body height 172.72 cm Enoch Carnes Other [facility] Other 09-11-2023 15:00-0500 Body mass index (BMI) [Ratio] 32.38 kg/m2 Enoch Carnes Other [facility] Other 09-11-2023 15:00-0500 Body weight 96.62 kg Enoch Carnes Other [facility] Other 08-27-2023 13:07-0500 Body height 172.7 cm Pm 2 [facility] 08-27-2023 13:07-0500 Body mass index (BMI) [Ratio] 28.13 kg/m2 [facility] 08-27-2023 13:07-0500 Body weight 83.92 kg Pm 2 [employer] [facility] 04-23-2023 10:45-0400 Body height 172.72 cm Enoch Carnes Other [facility] Other 04-23-2023 10:45-0400 Body mass index (BMI) [Ratio] 32.37 kg/m2 Enoch Carnes Other [facility] Other 04-23-2023 10:45-0400 Body weight 96.57 kg Enoch Carnes Other [facility] Other 04-23-2023 10:45-0400 Diastolic blood pressure 84 mm[Hg] Enoch Carnes Other [facility] Other 04-23-2023 10:45-0400 Systolic blood pressure 184 mm[Hg] Enoch Carnes Other [facility] Other 07-09-2022 15:30-0500 Body height 172.72 cm Enoch Carnes Other [facility] Other 07-09-2022 15:30-0500 Body mass index (BMI) [Ratio] 27.52 kg/m2 Enoch Carnes Other [facility] Other 07-09-2022 15:30-0500 Body weight 82.1 kg Enoch Carnes Other [facility] Other 05-27-2022 15:44-0400 Body weight 0 kg MD Perico Mccabe Work Phone: [facility] 04-01-2022 15:06-0400 Blood Pressure Location Javid NILL [facility] [place] 04-01-2022 15:06-0400 Diastolic blood pressure 74 mm[Hg] Javid NILL [facility] [place] 04-01-2022 15:06-0400 Heart rate 58 /min Javid NILL [facility] [place] 04-01-2022 15:06-0400 Respiratory rate 16 /min Javid NILL [facility] [place] 04-01-2022 15:06-0400 Systolic blood pressure 124 mm[Hg] Javid NILL [facility] [place] Encounters Encounter Date Encounter Type Care Provider Facility Start: 09-22-2023 End: 09-22-2023 ambulatory VIRAJAB YOSEF [facility] Start: 09-16-2023 End: 09-16-2023 Evaluation and management of inpatient ZOIE BARNHART [facility] Start: 09-16-2023 End: 09-16-2023 Evaluation and management of inpatient LETHA MONTOYA [facility] Start: 09-11-2023 End: 09-11-2023 ambulatory Enoch Carnes Other [facility] Other Start: 09-11-2023 Office outpatient vi sit 25 minutes Enoch Carnes [facility] Start: 08-27-2023 End: 08-28-2023 ambulatory CUBA TOMAS [facility] Start: 08-27-2023 Encounter for other preprocedural examination LETHA MONTOYA [facility] Start: 08-27-2023 End: 08-27-2023 Patient encounter procedure [facility] Pre-Admission Testing 2 [facility] - Pre Admit Comment on above: Preop examination (P rimary Dx); Coronary artery disease, unspecified vessel or lesion type, unspecified whether angina present, unspecified whether burns paiute or transplanted heart Start: 08-27-2023 End: 08-27-2023 Preprocedural examination done Pm 2 [facility] Start: 07-02-2023 End: 07-02-2023 ambulatory CHELSI RUSSELL [facility] Start: 05-19-2023 End: 05-19-2023 ambulatory Enoch Carnes Other [facility] Other Start: 05-19-2023 Telephone encounter Enoch velazquez [facility] Start: 04-24-2023 End: 04-24-2023 ambulatory Enoch Carnes Other [facility] Other Start: 04-24-2023 Telephone encounter Enoch velazquez [facility] Start: 04-23-2023 Office outpatient vi sit 25 minutes Enoch Carnes [facility] Start: 04-23-2023 Telephone encounter Enoch Lizama ck [facility] Start: 04-23-2023 End: 04-23-2023 ambulatory Enoch Carnes [facility] Other Start: 04-23-2023 End: 04-23-2023 Patient encounter procedure MD Perico Mccabe Work Phone: [facility] [place] Work Phone: Start: 02-18-2023 End: 02-18-[address] [facility] Start: 12-24-2022 End: 12-24-2022 ambulatory [facility] Start: 11-21-[address] [facility] Start: 11-21-[address] [facility] Start: 11-21-2022 End: 11-21-[address] [facility] Start: 11-13-2022 End: 11-14-2022 ambulatory [facility] Start: 11-08-2022 End: 11-08-2022 ambulatory [facility] Start: 11-04-2022 [facility]: 11-04-[facility]22 Encounter for [facility]procedural laboratory [facility] Start: 11-01-2022 End: 11-02-2022 ambulatory DARREN LABOY Facility:[facility] Start: 11-01-2022 End: 11-02-2022 Encounter for preprocedural laboratory examination DARREN LABOY Facility:[facility] Start: 10-24-2022 Encounter for other [facility]ced[facility] Start: 10-21-2022 End: 10-23-[address] PERICO MCCABE . Facility:[facility] Start: 10-19-2022 End: 10-20-2022 ambulatory CL POTTS Facility:[facility] Start: 10-19-2022 End: 10-20-2022 Encounter for other preprocedural examination CL POTTS Facility:[facility] Start: 09-24-2022 End: 09-24-2022 ambulatory DARREN LABOY [facility] Start: 09-05-2022 End: 09-05-2022 ambulatory Enoch Carnes Other [facility] Other Start: 09-05-2022 Telephone encounter Enoch velazquez [facility] Start: 07-26-2022 End: 07-27-[address] Rose CARNES Facility:[facility] Start: 07-24-2022 End: 07-24-2022 ambulatory Enoch Carnes Other [facility] Other Start: 07-24-2022 Telephone encounter Enoch velazquez [facility] Start: 07-11-2022 End: 07-12-[address] PERICO MCCABE . Facility:[facility] Start: 07-09-2022 End: 07-09-2022 ambulatory Enoch Carnes Other [facility] Other Start: 07-09-2022 Office outpatient ne w 45 minutes Enoch Carnes [facility] Start: 07-04-2022 End: 07-05-[address] PERICO MCCABE . Facility:[facility] Start: 06-22-2022 End: 06-23-[address] PERICO MCCABE . Facility:[facility] Start: 06-10-2022 End: 06-10-2022 ambulatory Perico Mccabe Facility:[facility] Start: 06-10-2022 End: 06-10-2022 ambulatory MD Perico Mccabe Work Phone: [facility] Work Phone: Start: 06-10-2022 End: 06-10-2022 Patient encounter procedure MD Perico Mccabe Work Phone: [facility] Start: 05-27-2022 End: 05-27-2022 ambulatory Enoch Carnes Other [facility] Other Start: 05-27-2022 Telephone encounter Enoch Lizama ck [facility] Start: 05-08-2022 End: 05-09-2022 ambulatory Javid WILLIS Facility:[id number] Start: 05-04-2022 End: 05-05-[address] PERICO MCCABE . Facility: Start: 04-13-2022 End: 04-14-[address] PERICO MCCABE . Facility: Start: 04-01-2022 End: 04-01-2022 Patient encounter procedure Javid WILLIS [facility] [place] Start: 04-01-2022 End: 04-02-2022 ambulatory Javid WILLIS Facility:[facility] Start: 03-13-2022 End: 03-14-[address] PERICO [...] 08-27-2024 Adult [facility] Screening [facility] Start: 08-27-2024 Tobacco Screening Tobacco Screening [facility] Start: 09-30-2023 End: 09-30-2023 Admission to same day surgery center 09/30/2023 3:00 PM EST - 09/30/2023 3:45 PM EST Surgery [facility] - Surgery [address] [place] [id number] Letha Montoya MD [address] [place] [address] [phone] EXTRACTION CATARACT INTRAOCULAR LENS [24839 (CPT )] [facility] - Surgery Comment on above: EXTRACTION CATARACT INTRAOCULAR LENS [36165 (CPT )] Start: 09-30-2023 Subsequent hospital visit by physician 09/30/2023 3:00 PM EST Hospital Encounter [facility] - Surgery [address] [place] [address] Letha Montoya MD [address] [place] [phone] [facility] Surgery Start: 09-30-2023 End: 09-30-2023 Xcapsl ctrc rmvl insj io lens prosth w/o ecp EXTRACTION CATARACT INTRAOCULAR LENS cataract left eye 09/30/2023 3:[facility] Start: 09-29-2023 End: 09-29-2023 ambulatory 09/29/2023 4:00 PM EST Support Visit [facility] - Pre Admit [address] [place] [phone] [facility] - Pre Admit Start: 09-16-2023 End: 09-16-2023 Admission to same day surgery center 09/16/2023 3:00 PM EST - 09/16/2023 3:45 PM EST Surgery [facility] - Surgery [address] [facility] [place] [address] Letha Montoya MD [address] [place] [phone] EXTRACTION CATARACT INTRAOCULAR LENS [44067 (CPT )] [facility] Comment on above: EXTRACTION CATARACT INTRAOCULAR LENS [05457 (CPT )] Start: 09-16-2023 Subsequent hospital visit by physician 09/16/2023 3:00 PM EST Hospital Encounter [facility] Surgery [address] [place] [address] Letha Montoya MD [address], [place] [phone] [facility] Start: 09-16-2023 End: 09-16-2023 Xcapsl ctrc rmvl insj io lens prosth w/o ecp EXTRACTION CATARACT INTRAOCULAR LENS cataract right eye 09/16/2023 3:00 PM EST [facility] Start: 05-02-2023 COVID-19 Vaccine ( season) COVID-19 Vaccine ( season) [facility] Start: 05-02-2023 Influenza vaccination Influenza Vacc ine [facility] Start: 06-10-2022 [facility] Start: 2009 Administration of varicella zoster vaccine Zoster (Shingles) Vaccine (1 of 2) [facility] Start: 1978 DTaP,Tdap and Td Vac cines (1 - Tdap) DTaP,Tdap and Td Vaccines (1 - Tdap) [facility] Start: 1977 Adult BMI Follow Up Plan Adult BMI Follow Up Plan [facility] Start: 1971 Depression Screening Depression Scre [facility] Payers Date Payer Category Payer Self-pay [id number] 2019 Unknown [employer] [place] [employer] [id number] 2019-Present [phone] [address] [place] [address] [id number] 1959 Self-pay [id number] 1959 Unknown [id number] 1959 Unknown [id number] 2.16.840.1.738727.3.579.2.647 1959 Unknown [id number] 2.16.840.1.142127.3.579.2.727 1959 Unknown [id number] 2.16.840.1.074827.3.579.2.727 1959 Unknown [id number] 2.16.840.1.535384.3.579.2.593 1959 Unknown [id number] 2.16.840.1.000970.3.579.2.593 1959 Unknown [id number] 2.16.840.1.826632.3.579.2.593 1959 Unknown [id number] 2.16.840.1.093462.3.579.2.593 1959 Unknown [id number] 2.16.840.1.833500.3.579.2.593 1959 Unknown [id number] 2.16.840.1.994431.3.579.2.593 1959 Unknown [id number] 2.16.840.1.754632.3.579.2.593 1959 Unknown [id number] 2.16.840.1.510150.3.579.2.593 1959 Unknown [id number] 2.16.840.1.604902.3.579.2.593 1959 Unknown [id number] 2.16.840.1.741265.3.579.2.593 1959 Unknown [id number] 2.16.840.1.242230.3.579.2.593 1959 Unknown [id number] 2.16.840.1.883551.3.579.2.593 1959 Unknown [id number] 2.16.840.1.727008.3.579.2.593 1959 Unknown [id number] 2.16.840.1.561063.3.579.2.593 1959 Unknown [id number] 2.16.840.1.082454.3.579.2.593 1959 Unknown [id number] 2.16.840.1.602502.3.579.2.1286 1959 Unknown [id number] 2.16.840.1.260034.3.579.2.1286 1959 Unknown [id number] 2.16.840.1.582230.3.579.2.1286 1959 Unknown [id number] 2.16.840.1.588915.3.579.2.1286 1959 Unknown [id number] 2.16.840.1.613432.3.579.2.1286 Unknown [id number] 2.16.840.1.542885.3.579.2.531 Unknown [id number] 2.16.840.1.723875.3.579.2.531 Social History Date Type Detail Facility Start: 04-01-2022 End: 08-27-2023 Tobacco smoking status Never smoked tobacco (finding) [facility] [place] Tobacco smoking status Never [facility] [place] Start: 09-26-2020 End: 08-27-2023 Sex Assigned At Male [facility] [place] Start: 1960 Sex Assigned At Male [facility] Start: 08-27-2023 Tobacco use and exposure Smokeless tobacco [facility]-user [facility] Start: 08-27-2023 Alcohol intake Ex-drinker (finding) [employer] [facility] Start: 09-26-2020 End: 08-27-2023 History of Social function [employer] [facility] Start: 08-27-2023 Alcohol Comment very rare [employer] Start: 1960 Sex Assigned At Not on file [facility] [employer] [facility] Procedure Code Equipment Code Equipment Origin al Text Equipment Identifier Dates Capsule endoscopy, for patency of lumen evaluation Video capsule endoscopy system [id number] FDA Start: 06-10-2022 Goals Date Patient Goal Desired Activity /State Functional Status Date Assessment Result Facility 04-01-2022 Functional Status N/A [facility] General [facility] Clinical Notes 02-12-2021 to 09-22-2023 Note Date & Type Note Facility 09-22-2023 Note [facility] Cardiology Clinic Note Chief Complaint: Patient here for 2 mo follow up hypertension. Lisinopril was increased to 20mg daily about 6 weeks ago by Maryann Russell. Had follow up BMP end of Aug 2023. Patient called office 2 weeks ago to report BP still running very high, in the 170's-190's systolic. Maryann Russell then switched his metoprolol to carvedilol. He was seen in [facility] ED on 08/02/2023 for chest pain. HPI: Ayo Alicia is a 63 y.o. male With a history of coronary artery disease, prior PCI and stent placement most [id number], paroxysmal atrial fibrillation/flutter s/p ablation and hypertension [...] Final QTC CALCULATION(BAZETT) 11/21/2022 437 ms Final R-Glidden 11/21/2022 26 degrees Final T Wave Glidden 11/21/2022 182 degrees Final Protime 11/21/2022 14.3 12.3 - 14.8 Seconds Final INR 11/21/2022 1.12 (H) 0.90 - 1.10 Final Glucose POC 11/21/2022 144 (H) 70 - 105 mg/dL Final Ventricular Rate (more content not included)... [facility] 09-11-2023 Evaluation note Encounter Date Diagnosis Assessment [...] did have some recent labs done at [facility] will obtain these reports Patient is to start Amjevita RTO 6 weeks [facility] Other 12-27-2023 Instructions* Patient Instructions* Supriya Morel [...] you have a Living Will/Durable Power of Retail Sales Lead for Health Care that is not on file here, please bring a copy the day of surgery. 3. Please wash your face with baby shampoo prior to procedure as instructed by your physician. 4. NO powder, lotion, perfume/cologne, aftershave, make-up, nail sao tomean on at least one finger, deodorant, or [...] please call the Preadmission Testing office at [phone], Mon.-Fri. 7 a.m.-3 p.m. Leave a voicemail [...] days prior to procedure [facility] Miscellaneous Notes* Perioperative Nursing Note - Supriya [...] you have a Living Will/Durable Power of Retail Sales Lead for Health Care that is not on file here, please bring a copy the day of surgery. 3. Please wash your face with baby shampoo prior to procedure as instructed by your physician. 4. NO powder, lotion, perfume/cologne, aftershave, make-up, nail sao tomean on at least one finger, deodorant, or [...] please call the Preadmission Testing office at [phone], Mon.-Fri. 7 a.m.-3 p.m. Leave a voicemail [...] to procedure * Perioperative Nursing Note - Supirya Morel RN - 08/27/2023 12:45 PM EST Surgical instructions reviewed. Patient verbalized understanding. documented in this encounterWV[facility]12-27-2023 Nurse Note* Perioperative Nursing Note - Supriya [...] you have a Living Will/Durable Power of Retail Sales Lead for Health Care that is not on file here, please bring a copy the day of surgery. 3. Please wash your face with baby shampoo prior to procedure as instructed by your physician. 4. NO powder, lotion, perfume/cologne, aftershave, make-up, nail sao tomean on at least one finger, deodorant, or [...] please call the Preadmission Testing office at [phone], Mon.-Fri. 7 a.m.-3 p.m. Leave a voicemail [...] Stop taking 0 days prior to procedure [facility] [employer] [id number] Nurse Note* Perioperative Nursing Note - Supriya Morel RN - 08/27/2023 12:45 PM EST Surgical instructions reviewed. Patient verbalized understanding. [facility] [phone] NotePatient here for abnormal stress test. It was done 2 weeks ago at [facility] and was ordered by Dr. Mccabe. [...] weakness. All other systems reviewed and are negative.[facility] 07-02-2023 NoteCardiovascular Medicine [facility] SUBJECTIVE No chief complaint on file. [...] distribution. No reversible ische (more content not included)...[facility]09-18-2023 Evaluation note* Encounter Date Diagnosis Assessment Notes Treatment Notes Treatment Clinical Notes May, Crohns disease (ICD-10 - K50.90) [facility] Other 08-24-2023 Evaluation note* Encounter Date Diagnosis Assessment Notes Treatment Notes Treatment Clinical Notes Apr, Iron deficiency anemia (ICD-10 - D50.9) [facility] Other 08-23-2023 Evaluation note* Encounter Date Diagnosis Assessment Notes Treatment Notes Treatment Clinical Notes Apr, Crohns disease (ICD-10 - K50.90) Pt is taking budesonide. Pt advised to start humira and stop budesonide. Labs ordered Pt RTO in 6 wks [facility] Other 06-20-2023 NotePatient is here today for [...] All other systems reviewed and are negative. [place] [facility] Consult Note Reason for visit: 1 [...] on external nose Oropharynx (more content not included)...[facility] 12-24-2022 Alona is here to follow up [...] sleepiness. All other systems reviewed and are negative.[facility] 12-24-2022 NoteUT Cardiology Consult Note Reason for [...] controlled. He was recently admitted to the [facility] for A-fib RVR where he was started [...] no thoracic deformi (more content not included)... [facility]03-23-2023 NotePatient: Ayo Rodriguez Emerson Procedure Summary Date: 11/21/22 Room / Location: [facility] TECHNOLOGY PROGRAM MANAGER 1 EP / [facility] (Cath) Anesthesia Start: 08 Anesthesia [...] were no known notable events for this encounter.[facility]03-23-2023 NoteATRIAL FIBRILLATION ABLATION PROCEDURE NOTE DATE OF PROCEDURE: 11/21/2022 PERFORMING PHYSICIAN: Dr. Darren Laboy LAMINATOR PREFORMS: Dr Bacilio Olmedo CONSENT: Patient NAME OF [...] ablation. He was recently hospitalized at the [facility] for A-fib RVR and is markedly symptomatic. [...] Coumadin ridge. Esophagus was mapped using the [employer] 3D mapping software and noted to be [...] aspect. 40W was utiliz (more content not included)...[facility]03-23-2023 NoteAirway Date/Time: 11/21/2022 8:53 AM Urgency: elective [...] it difficult to get a good mask sealUnMercy Health Anderson Hospital03-23-2023 NoteArterial Line: Date/Time: 11/21/2022 7:50 AM [...] procedure well with no complications. Staffing Performed: resident/SOFTWARE SALES/CAA Anesthesiologist: Terry Kathleen MD Resident/SOFTWARE SALES: Mc Ramos, [facility]03-23-2023 NotePatient: Ayo Alicia Procedure Information Date/Time: 11/21/22 0800 Procedure: Ablation atrial fibrillation Location: [facility] TECHNOLOGY PROGRAM MANAGER 1 EP / [facility] (Cath) Providers: Darren Laboy MD [...] ??? Fatigue ??? Iron deficiency anemia ??? 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 Aortic [...] products. Plan discussed with resident. Additional Equipment RequestsUnMercy Health Anderson Hospital03-20-2023 Note- continue Lipitor 80 mgUnMercy Health Anderson Hospital03-20-2023 Note Hypertension is stable today - continue medicationUnMercy Health Anderson Hospital03-20-2023 Note- mild regurgitation per recent echo 10/2022UnMercy Health Anderson Hospital 11-18-2022 Note- per echo 10/2022 mild to moderate regurgitationUnMercy Health Anderson Hospital03-20-2023 Note- history of mild regurgitation, none noted on recent echo 10/2022UnMercy Health Anderson Hospital03-20-2023 NoteCoronary artery disease is Stable -s/p PCI with ERIC to LAD 01/26/21 (cath also noted severe prox and mid vessel to a short PDA and moderate dz to LCx) -Continue statin, BB - he has history of being on Plavix which was supposedly stopped after EGD [facility]03-20-2023 [id number] 2 ( hypertension, CAD) - continue Eliquis 5 mg twice daily Toprol 100 mg daily - we will proceed with A-fib ablation - tolerating Eliquis without any concerns of bleedingUnMercy Health Anderson Hospital03-10-2023 NotePatient here for pre afib ablation H&P. He is scheduled with Dr. Laboy on 11/21/2022. Since last apt he was admitted to [facility] for afib w/ RVR. Still has intermittent chest pain, but denies bleeding on Eliquis. Review of Systems Constitutional: Positive for malaise/fatigue. Cardiovascular: Positive for chest pain, dyspnea on exertion, leg swelling and palpitations. Musculoskeletal: Positive for arthritis, back pain and joint pain. Neurological: Positive for light-headedness. All other systems reviewed and are negative.[facility] 11-08-2022 NoteUT Cardiology Consult Note Reason for [...] controlled. He was recently admitted to the [facility] for A-fib RVR where he was started [...] Labs: Labs from 11/01 (more content not included)...[facility] 10-11-2022 NotecreUnMercy Health Anderson Hospital01-24-2023 NotePatient here for 1 mo follow [...] light-headedness. All other systems reviewed and are negative.[facility] 09-24-2022 NoteUT Cardiology Consult Note Reason for [...] TOTAL, HDL, LDL CALC, (more content not included)...[facility]11-23-2022 Evaluation note* Encounter Date Diagnosis Assessment Notes Treatment Notes Treatment Clinical Notes Jul, Iron deficiency anemia (ICD-10 - D50.9) [facility] Other 11-08-2022 Evaluation note* Encounter Date Diagnosis Assessment Notes Treatment Notes Treatment Clinical Notes Jul, Iron deficiency anemia (ICD-10 - D50.9) Jul, Crohns disease (ICD-10 - K50.90) CONTINUE SULFASALAZINE 2 TABLETS TWICE A DAY RTO 4 WEEKS Jul, Abdominal pain (ICD-10 - R10.9) Jul, Diarrhea (ICD-10 - R19.7) [facility] Other 09-07-2022 NoteOPERATIVE NOTE OPERATION DATE: 05/08/2022 [...] room in good condition. CC: Perico Mccabe M.D.[facility]06-14-2021 NoteHNO ID: [id number] Author: Jesse Infante MD Service: ? Author Type: Physician Type: Progress Notes Filed: 02/12/2021 2:58 PM Note Text: [facility] NEW PATIENT HISTORY AND PHYSICAL EXAM PATIENT INFO: Ayo Alicia 60 year old REFERRING M.D.: Hosea Rust [address] [place] [address] This consult was requested by Dr. Rust for an opinion regarding Peyronie's disease, and my final recommendations will be communicated to the requesting health care provider by way of the shared medical record for internal providers or letter via the [employer] for external providers. HISTORY CHIEF [...] such as injections an (more content not included)...[facility] NotePatient Outreach (UROLMN) AYO ALICIA ([id number]) 1960 M Date Time Provider Department 02/12/21 JESSE INFANTE During your visit today, we recorded the following information about you: Allergies As of Date: 02/12/2021 (No Known Allergies) Date Reviewed: 02/12/2021 Reviewed by: Jesse Infante MD - Fully Assessed Visit Diagnosis:Screening for genitourinary condition [Z13.89] Order(s):URINALYSIS, DIPSTICK ONLY [SQUA] Order #: [id number]. #:[id number] Prescriptions as of 02/12/2021 Sig: ASPIRIN 325 [...] [N5*02/12/2021 Encounter Status:Closed by SUZY LIR on 02/15/21[facility] Evaluation + Plan note No data available for this section [facility] [place] Evaluation noteNo assessment information available [facility] Work Phone: Evaluation noteNo InformationNortChan [facility] RingCaptcha Other Evaluation note* Diagnosis Preop examination- Primary Unspecified pre-operative examination Coronary artery disease, unspecified vessel or lesion type, unspecified whether angina present, unspecified whether burns paiute or transplanted heart documented in this encounter [facility] N[facility]ative - Reported* Type Description Date Surgical History knee replacement-right Surgical History knee arthroscopy-left Surgical History back surgery Surgical History Neck Surgery Surgical History ganglion cyst-left Surgical History heart stent [facility] Other Hisbqtz general Narrative - Reported* Type Description Date Medical History Afib Surgical History knee replacement-right Surgical History knee arthroscopy-left Surgical History back surgery Surgical History Neck Surgery Surgical History ganglion cyst-left Surgical History heart stent Surgical History cardiac ablasion [facility] Other Hospital Discharge instructions No data available for this section [facility] [place] Progress note No data available for this section [facility] [place] Summary Purpose Family History No Family History [...] section and content) DATE CREATED AUTHOR [facility]/22/2020 [facility] DATE CREATED AUTHOR AUTHOR'S ORGANIZ ATION 10/03/2021 [facility] DATE CREATED AUTHOR AUTHOR'S ORGANIZ ATION 12/15/2021 [facility] DATE CREATED AUTHOR AUTHOR'S ORGANIZ ATION 08/05/2022 [facility] DATE CREATED AUTHOR AUTHOR'S ORGANIZ ATION 11/06/2022 [facility] DATE CREATED AUTHOR AUTHOR'S ORGANIZ ATION 04/24/2023 [facility] DATE CREATED AUTHOR AUTHOR'S ORGANIZ ATION 09/18/2023 [facility] DATE CREATED AUTHOR AUTHOR'S ORGANIZ ATION 09/22/2023 [facility] Care Team (unrecognized sect ion and content) Team Status: Active Member Role Status Dates Perico Mccabe MD Primary Care Provider Active Team Status: Inactive Member Role Status Dates Perico Mccabe MD Primary Care Provider Active Enoch Carnes MD Attending Provider Active Lathe Puller Relationship Specialty Start Date End Date Perico Mccabe MD [address] [place] [address] PCP - General Family Medicine 08/27/23 REASON [...] BE BASED ON THE PRIMARY CLINICAL RECORDS. [employer] [facility]. provides no warranty or guarantee of the accuracy or completeness of information in this document.
[2023-10-04 08:37] LABS: Alanine Aminotransferase 17 U/L (16-63); Albumin Globulin Ratio 0.9; Albumin Level 3.2 g/dL (3.4-5.0); Alkaline Phosphatase 65 U/L (46-116); Aspartate Amino Transferase 14 U/L (15-37); Bilirubin Direct 0.2 mg/dL (0.0-0.2); Bilirubin Total 0.8 mg/dL (0.2-1.0); Globulin 3.5 g/dL; Total Protein 6.7 g/dL (6.4-8.2); Triglycerides 94 mg/dL (<=150)
[2023-10-04 08:38] LABS: Chol HDL Ratio 2.8; Cholesterol 105 mg/dL (<=200); HDL Cholesterol 37 mg/dL (40-60); VLDL CHOLESTEROL 18.8 mg/dL
== END 2023-10-04 07:41 | disposition home or self-care (01) ==
LOC: LAB 07:40
PROVIDERS: PCP Family Medicine; Visit Provider Internal Medicine Interventional Cardiology
DX: E78.5 Hyperlipidemia, unspecified (principal)
CPT/HCPCS: 36415; 80061; 80076

== ENCOUNTER 2024-04-06 13:06 | Outpatient (OUT) | payer MEDICARE, SELFPAY ==
[2024-04-06 13:37] LABS: Basophils Absolute Auto 0.1 10^3/uL (0.0-0.1); Basophils Percent Auto 1.3 % (0.2-2.0); Eosinophils Absolute Auto 0.2 10^3/uL (0.0-0.7); Eosinophils Percent Auto 3.8 % (0.9-7.0); Hematocrit 27.3 % (42.0-54.0); Hemoglobin 8.3 g/dL (14.0-18.0); Immature Granulocytes Abs Auto 0.01 10^3/uL (0.00-0.03); Immature Granulocytes Pct Auto 0.2 % (0.0-0.5); Lymphocytes Absolute Auto 1.3 10^3/uL (1.2-3.8); Lymphocytes Percent Auto 21.6 % (20.5-60.0); Mean Corpuscular HGB Conc 30.4 g/dL (29.9-35.2); Mean Corpuscular Volume 85.6 fL (80.0-94.0); Mean Platelet Volume 9.3 fL (9.5-13.5); Monocytes Absolute Auto 0.5 10^3/uL (0.3-0.8); Monocytes Percent Auto 8.5 % (1.7-12.0); Neutrophils Percent Auto 64.6 % (43.0-75.0); Platelet Count 309 10^3/uL (150-450); Red Blood Count 3.19 10^6/uL (4.70-6.10); Red Cell Distribution Width 14.8 % (11.0-15.0); White Blood Count 6.1 10^3/uL (4.0-11.0)
[2024-04-06 14:08] LABS: Percent Iron Saturation 6.5 %
[2024-04-06 14:10] LABS: Alanine Aminotransferase 14 U/L (16-63); Albumin Globulin Ratio 0.9; Albumin Level 2.9 g/dL (3.4-5.0); Alkaline Phosphatase 73 U/L (46-116); Anion Gap 12.5; Aspartate Amino Transferase 12 U/L (15-37); BUN Creatinine Ratio 18.1; Bilirubin Total 0.8 mg/dL (0.2-1.0); Calcium 8.3 mg/dL (8.5-10.1); Carbon Dioxide 28.4 mmol/L (21.0-32.0); Chloride 104 mmol/L (98-107); Estimated GFR (African America >60 (>=60); Estimated GFR (Non-African Ame >60 (>=60); Globulin 3.1 g/dL; Glucose 119 mg/dL (74-106); Potassium 3.9 mmol/L (3.5-5.1); Sodium 141 mmol/L (136-145)
== END 2024-04-06 13:07 | disposition home or self-care (01) ==
LOC: LAB 13:12
PROVIDERS: PCP Family Medicine; Visit Provider Internal Medicine Gastroenterology
DX: K50.90 Crohn's disease, unspecified, without complications (principal)
CPT/HCPCS: 36415; 80053; 82728; 83540; 83550; 83993; 85025

== ENCOUNTER 2024-12-07 13:50 | Outpatient (OUT) | payer MEDICARE, SELFPAY ==
[2024-12-07 14:39] LABS: Anion Gap 11.2; BUN Creatinine Ratio 9.5; Calcium 8.4 mg/dL (8.5-10.1); Carbon Dioxide 28.2 mmol/L (21.0-32.0); Chloride 103 mmol/L (98-107); Estimated GFR (African America >60 (>=60 mL/min/1.73m^2); Estimated GFR (Non-African Ame 57 (>=60 mL/min/1.73m^2); Glucose 145 mg/dL (74-106); Potassium 3.4 mmol/L (3.5-5.1); Sodium 139 mmol/L (136-145)
== END 2024-12-07 13:51 | disposition home or self-care (01) ==
LOC: LAB 13:55
PROVIDERS: PCP Family Medicine; Visit Provider Nurse Practitioner Family
DX: I10 Essential (primary) hypertension (principal)
CPT/HCPCS: 36415; 80048

== ENCOUNTER 2025-01-11 07:29 | Outpatient (OUT) | payer MEDICARE, SELFPAY ==
--- NOTE | 2025-01-11 | PCN_ITS ---
CARDIAC STRESS TEST Requesting Physician: Lindsey Pagan M.D. Procedure Date: 01/11/2025 REASON FOR TEST: Chest pain, shortness of breath. At baseline, patient was noted to have a resting heart rate of 63 beats per minute, with a blood pressure of 180/88 mm/Hg. Peak heart rate that was achieved was 137 beats per minute, with a blood pressure reading of 194/88 mm/Hg. This accounted for 88% of the expected heart rate. He exercised for a total period of 4 minutes and 12 seconds and achieved Stage 2 with maximum METS of 7 METS. Reason for termination was fatigue. At baseline, the patient was noted to have sinus rhythm with normal intervals and normal R-wave progression. There was an occasional PVC that was noted with Stage 1 exercise, which appeared to be a papillary muscle exit PVC, as well as another PVC that was noted of LVOT exit also was seen. At peak exercise, at Stage 2, there were no EKG changes suggestive of ischemia. Four minutes into the recovery phase, PACs were noted with a normal heart rate recovery. The Reddy treadmill score was between 5-10. IMPRESSION: 1. No EKG evidence of ischemia noted. Occasional PVCs of LVOT origin as well as papillary muscle exit noted. 2. No evidence of chronotropic incompetence. 3. The Reddy treadmill score is suggestive of a medium risk, which is indicative of a five year survival rate of approximately 90%. MTDD
--- NOTE | 2025-01-11 07:30 | NM_ITS ---
Patient Name: AYO ALICIA MR#: [id number] : 1960 Exam Date: 01/11/2025 Ordering Doctor: DR GLORIA PAGAN M.D. RADIOLOGY REPORT PROCEDURE: NM TAIWO PERF SPECT REST STR COMPARISON: None. INDICATIONS: CHEST PAIN, DYSPNEA, FATIGUE TECHNIQUE: Exam Description: Rest/Stress one day protocol gated SPECT Rest Imagin.2 mCi Tc-99m Cardiolite IV on 01/11/2025 Stress Imaging 30.8 mCi Tc-99m Cardiolite IV on 01/11/2025 Exercise Protocol: Mandeep Heart Rate (bpm): Rest: 63 Max: 137 PMHR: 88 Blood Pressure: Rest: 180/88 Max: 194/88 Exercise Time: Minutes: 4 Seconds: 12 Stage Reached: Stage: 2 Mets 7.0 Symptoms: Rest and peak stress ECG findings were pending, and the exercise portion of the study was pending per attending physician [facility]. For more details, please see separate cardiac stress test report. FINDINGS: QUALITY OF STUDY: Good PERFUSION DEFECT: LOCATION: N/A SIZE: N/A SEVERITY: N/A TYPE: N/A WALL MOTION: Normal wall motion LV SIZE: 144 mL. TID / TCD: 1.0 LVEF: Calculated EF 66%. SUMMARY: Myocardial perfusion imaging study is normal CONCLUSION: 1. Myocardial perfusion is normal 2. Normal global left ventricular systolic function 3. No evidence of transient ischemic dilatation Dictated by: Gloria Pagan M.D. on 01/12/2025 at 15:53 Approved by: Gloria Pagan M.D. on 01/12/2025 at 15:55
--- OUTSIDE RECORDS SUMMARY | 2025-01-11 07:32 | XMS_ITS | CCD ---
Author Organization [facility] Care Team Providers Care Data Entry Specialist Name Role Phone UNKNOWN, PHYSICIAN Primary Care Unavailable UNKNOWN, PHYSICIAN Referring Unavailable ELTAHAWY, EHAB A Admitting Unavailable YOSEF, EHAB A Attending Unavailable Perico Mccabe Primary Care Physician MD Perico Mccabe Primary Care Provider MD Enoch Carnes Attending Provider [phone] Enoch Carnes Unavailable [phone] Javid WILLIS Attending Unavailable Andrey PROVIDERPerico Referring Unavailabl e Javdi WILLIS Attending Unavailable FAIZAY ., DR RIVER Primary Care Unavailable NILL [...] Consulting Unavailable JO LANG Consulting Unava ilable HOY ., DR RIVER Primary Care Unavailable HOY ., DR RIVER Attending Unavailable HOY ., DR RIVER Consulting Unavailable HOY ., DR RIVER Admitting Unavailable DAVID, DR CUBA Mark Consulting Unavailable ROSALINA LABOY Consulting Unavailable ROSALINA LABOY Attending Unavailable HOY ., DR RIVER Primary Care Unavailable ROSALINA LABOY Admitting Unavailable HOY ., DR RIVER [...] HOY ., DR RIVER Primary Care Unavailable CL POTTS Consulting Unavailable CL POTTS R Consulting Unavailable ROSALINA LABOY Admitting Unavailable ROSALINA LABOY Attending Unavailable HOY ., DR RIVER Primary Care Unavailable BENOITROSALINA CRABTREE Consulting Unavailable DEYVI, DR Rose Du [...] Unavailable NILL ., DR DIAZ Admitting Unavailable BOAZ, DR CUBA Mark Consulting Unavailable NILL ., DR DIAZ Consulting Unavailable HOY ., DR RIVER Attending Unavailable HOY ., DR RIVER Primary Care Unavailable HOY ., DR RIVER Consulting Unavailable FAIZAY ., DR RIVER Admsupa Unavailable MD Perico Mccabe Primary Care Provider [phone] MD Enoch Carnes Attending Provider LETHA MONTOYA Referring Unavailable FAIZAYPERICO M Primary Care Unavailable CUBA TOMAS Referring Unavailable HOY, PERICO M Primary Care Unavailable LETHA OMNTOYA Admitting Unavailable LETHA MONTOYA Attending Unavailable ZOIE BARNHART Attending Unavailable HOY, PERICO M Primary Care Unavailable LETHA MONTOYA Admitting Unavailable LETHA MONTOYA Attending Unavailable ZOIE BARNHART Attending Unavailable PERICO MCCABE M Primary Care Unavailable MD Perico Mccabe Primary Care Provider [phone] DO Nelly Arias Attending Provider [phone] Enoch Carnes Admitting UnavailEnoch Duffy Attending Unavailbeth e Perico Mccabe Primary Care Unavailable Nelly Arias Admitting Unavailable Nelly Arias Attending Unavailable Perico Mccabe Primary Care Unavailable Perico Mccabe MD Primary Care Provider [phone] CUBA HAYWOOD Attending Unavailable CUBA HAYWOOD Admitting Unavailable PERICO MCCABE Primary Care Unavailable CUBA HAYWOOD Attending Unavailable PERICO MCCABE Primary Care Unavailable CUBA HAYWOOD Referring Unavailable CUBA HAYWOOD Attending Unavailable PERICO MCCABE Primary Care Unavailable CUBA HAYWOOD Referring Unavailable PEARL CALDERON Attending Unavailable PERICO MCCABE Primary Care Unavailable CUBA HAYWOOD Referring Unavailable PERICO MCCABE Primary Care Unavailable CUBA HAYWOOD Referring Unavailable PERICO MCCABE Primary Care Unavailable Perico Mccabe MD Primary Care Provider [phone] CHELSI KENT Attending Unavailable GLORIA PAGAN Attending Unavailable Medications Current Medications Medication Drug Class(es) Dates Sig (Normalized) Sig (Original) acetaminophen 500 mg oral tablet (5 sources) Start: 05-18-2024 take 2 tablets by mouth every six hours acetaminophen (TYLENOL) 500 mg tablet Take 2 tablets by mouth every 6 hours. 50 tablet 05/18/2024 Active take 2 tablets by [facility] every six hours as needed acetaminophen (TYLENOL) 325 mg tablet Ta ke 650 mg by mouth every 6 hours as needed. Active apixaban 5 mg oral tablet (20 sources) Factor Xa Inhibitor Start: 04-01-2022 take 1 tablet by mouth twice daily apixaban (ELIQUIS) 5 mg tab(s) Take 1 tablet by mouth two times a day. OK to resume on 05/19/2024 05/18/2024 Active aspirin 81 mg delayed release oral tablet (9 sources) Platelet Aggregation Inhibitor, Nonsteroidal Anti-inflammatory Drug Start: 01-12-2024 take 1 tablet by mouth once daily Aspirin 81 mg tablet,delayed release (DR/EC) Active 81 MG PO Daily January 12, 2024 12:00am Start: 02-02-2021 End: 04-30-2024 aspirin 325 mg tablet Take b y mouth. 02/02/2021 04/30/2024 Discontinued take 1 capsule by [facility] once daily aspirin 81 mg cap Take 81 mg by mouth once daily. Active atorvastatin 80 mg oral tablet (20 sources) HMG-CoA Reductase Inhibitor Start: 04-23-2021 take 1 tablet by mouth once daily Atorvastatin 80 mg Tablet Active 80 MG PO Daily June 10, 2022 12:00am Bacillus coagulan-calcium carb (DIGESTIVE ADVANTAGE PROBIOTIC) 2 billion cell- 140 mg cap (2 sources) Start: 05-19-2024 take 1 capsule by mouth once daily Bacillus coagulan-calcium carb (DIGESTIVE ADVANTAGE PROBIOTIC) 2 billion cell- 140 mg cap Take 1 capsule by mouth once daily. 30 capsule 05/19/2024 Active budesonide 3 mg delayed release oral capsule (6 sources) Corticosteroid Start: 08-13-2022 take 3 capsules by mouth every twenty-four hours Budesonide 3 MG 3 capsules Orally Once a day for 30 days Aug, Active carvedilol 25 mg oral tablet (8 sources) alpha-Adrenergic César, beta-Adrenergic César Start: 01-05-2024 End: 01-04-2025 take 1 tablet by mouth twice daily Carvedilol 25 mg tablet Active 25 MG PO Twice daily January 12, 2024 12:00am End: 04-30-2024 take 1 tablet by mouth twice daily carvedilol (COREG) 12.5 mg tablet carvedilol 12.5 mg tablet TAKE 1 TABLET BY MOUTH TWICE DAILY 04/30/2024 Discontinued doxazosin 4 mg oral tablet (1 source) [...] Refills(s) 0 Start Date: 03/28/22 Status: Ordered lisinopril 20 mg oral tablet (9 sources) Angiotensin Converting Enzyme Inhibitor Start: 06-02-2023 take 1 tablet by mouth once daily Lisinopril 20 mg tablet Active 20 MG PO Daily January 12, 2024 12:00am FreeTextSi tablet Orally Once a day; Note: Source Status: Taking; Provider: Deyvi Kendall ( ) methocarbamol 750 mg oral tablet (2 sources) Muscle Relaxant Start: 05-18-2024 take 1 tablet by mouth every eight hours as needed methocarbamol (ROBAXIN) 750 mg tablet Take 1 tablet by mouth three times a day as needed for muscle spasms. 15 tablet 05/18/2024 Active metroNIDAZOLE 500 mg oral tablet (3 sources) Nitroimidazole Antimicrobial Start: 04-29-2024 metroNIDAZOLE (FLAGYL) 500 mg tablet Take 1 tablet by mouth as directed. Take one tab at 6:00 p.m., another at 7:00 p.m. and the last one at 11:00 p.m., prior to surgery 3 tablet 04/29/2024 Active neomycin sulfate 500 mg oral tablet (3 sources) Aminoglycoside Antibacterial Start: 04-29-2024 neomycin 500 mg tablet Take 2 tablets by mouth as directed. Take two tabs at 6:00 p.m., 7:00 p.m. and 11:00 p.m., prior to surgery 6 tablet 04/29/2024 Active pantoprazole 20 mg delayed release oral tablet (20 sources) Proton Pump Inhibitor Start: 06-10-2022 take 1 tablet by mouth once daily Pantoprazole 20 mg Tablet,Delayed Release (Dr/Ec) Active 20 MG PO Daily June 10, 2022 12:00am Start: 04-23-2021 take 1 tablet by lorna th once daily pantoprazole DR (PROTONIX) 40 mg tablet Take 40 mg by mouth once daily. 04/23/2021 Active sildenafil 100 mg oral tablet (6 sources) Phosphodiesterase 5 Inhibitor Start: 01-12-2021 sildenafil (VIAGRA) 100 mg tablet 01/12/2021 Active spironolactone 25 mg oral tablet (7 sources) Aldosterone Antagonist Start: 04-23-2023 take 1 tablet by mouth every twenty-four hours Spironolactone 25 MG 1 tablet Orally Once a day for 30 days Apr, Active Completed/Discontinued Medications Medication Drug Class(es) Dates Sig (Normalized) Sig (Original) 0.4 ml adalimumab 100 mg/ml auto-injector (6 sources) Tumor Necrosis Factor César Start: 12-30-2023 End: 07-02-2024 Adalimumab (Humira(Cf) Pen) 40 mg/0.4 mL pen injector kit Discontinued 0 SUBCUT Q14D 6 90 December 30, 2023 12:00am July 02, 2024 8:37am inject one - 40 mg/0.4 mL pen every 2 weeks subcutaneously every 14 days; adalimumab (HUMI RA,CF, PEN IFOPBW-RA-CR) 80 mg/0.8 mL pen kit Inject 80 mg subcutaneously every 2 weeks. Active 24 hr buPROPion hydrochloride 150 mg extended release oral tablet (2 sources) Aminoketone Start: 02-02-2021 End: 04-30-2024 buPROPion XL (WELLBUTRIN XL) 150 mg 24 hr tablet q 24 HR. 02/02/2021 04/30/2024 Discontinued clopidogrel 75 mg oral tablet (2 sources) P2Y12 Platelet Inhibitor End: 04-30-2024 take 1 tablet by mouth once daily clopidogrel (PLAVIX) 75 mg tablet clopidogrel 75 mg tablet TAKE 1 TABLET BY MOUTH DAILY 04/30/2024 Discontinued hydroCHLOROthiazide 12.5 mg / lisinopril 20 mg oral tablet (2 sources) Thiazide Diuretic, Angiotensin Converting Enzyme Inhibitor Start: 02-02-2021 End: 04-30-2024 lisinopril-hydroC HLOROthiazide (PRINZIDE,ZESTORE TIC) 20-12.5 mg per tablet q 24 HR. 02/02/2021 04/30/2024 Discontinued 24 hr isosorbide mononitrate 30 mg extended release oral tablet (5 sources) Nitrate Vasodilator Start: 06-10-2022 End: 01-12-2024 take 1 tablet by mouth once daily, then take 1 tablet by mouth every twenty-four hours Isosorbide Mononitrate 30 mg Tablet Extended Release 24 Hr Discontinued 30 MG PO Daily June 10, 2022 12:00am January 12, 2024 10:30am Start: 04-01-2022 take 1 tablet by lorna th once daily in the morning isosorbide mononitrate 30 mg ER Tab 30 mg = 1 tab(s), Oral, qAM, Refills(s) 0 Start Date: 04/01/22 Status: Ordered meloxicam 15 mg oral tablet (7 sources) Nonsteroidal Anti-inflammatory Drug Start: 06-10-2022 End: 01-12-2024 take 1 tablet by mouth once daily Meloxicam 15 mg Tablet Discontinued 15 MG PO Daily June 10, 2022 12:00am January 12, 2024 10:30am Start: 02-02-2021 take 1 mg by mouth once daily meloxicam 15 mg oral tablet mg tab(s), Oral, Daily, Refills(s) 0 Start Date: 02/02/21 Status: Ordered Start: 02-02-2021 End: 04-30-2024 meloxicam (MOBIC) 15 mg tabl et q 24 HR. 02/02/2021 04/30/2024 Discontinued metoprolol tartrate 50 mg oral tablet (16 sources) beta-Adrenergic César Start: 06-10-2022 End: 01-12-2024 take 1 tablet by mouth once daily Metoprolol Tartrate 50 mg Tablet Discontinued 50 MG PO Daily June 10, 2022 12:00am January 12, 2024 10:30am Start: 04-01-2022 take 1 tablet by lorna [...] (100 mg total) before bedtime. 0 Active omeprazole 40 mg delayed release oral capsule (2 sources) Proton Pump Inhibitor Start: 02-02-2021 End: 04-30-2024 omeprazole (PRILOSEC) 40 mg capsule q 24 HR. 02/02/2021 04/30/2024 Discontinued sulfaSALAzine 500 mg oral tablet (10 sources) Aminosalicylate take 2 tablets by mouth every twelve hours sulfaSALAzine 500 MG 2 TABLETS Orally TWICE A DAY Not-Taking/PRN Problems Active Problems Problem Classification Problem Date Documented Da te Episodic/Chronic Abdominal pain (20 sources) Periumbilical pain; Translations: [Periumbilical pain] Onset: Episodic Acute and unspecified renal failure (1 source) Acute kidney failure, unspecified; Translations: [ACUTE KIDNEY FAILURE UNSPECIFIED] Onset: 3 Episodic Cardiac dysrhythmias (14 sources) Unspecified atrial fibrillation; Translations: [Atrial fibrillation] Onset: 2 Chronic Cataract (1 source) Cataract Onset: 4 Congestive heart failure; nonhypertensive (1 source) Unspecified diastolic (congestive) heart failure; Translations: [UNSPECIFIED DIASTOLIC HEART FAILURE] Onset: 2 Chronic Coronary atherosclerosis and other heart disease (12 sources) Atherosclerotic heart disease of [place] coronary artery without angina pectoris; Translations: [Coronary atherosclerosis] Onset: 2 04-30-2024 Chronic Deficiency and other anemia (9 sources) Anemia due to chronic blood loss; Translations: [Iron deficiency anemia secondary to blood loss (chronic)] Chronic Deficiency and other anemia (1 source) Iron deficiency anemia secondary to blood loss (chronic); Translations: [Iron deficiency anemia due to chronic blood loss] Chronic Deficiency and other anemia (13 sources) Iron deficiency anemia; Translations: [Iron deficiency anemia, unspecified] Onset: 2 Episodic Deficiency and other anemia (9 sources) Iron deficiency anemia, unspecified; Translations: [IRON DEFICIENCY ANEMIA UNSPECIFIED] Onset: 2 Episodic Disorders of lipid metabolism (7 sources) Hyperlipidemia; Translations: [Hyperlipidemia, unspecified] Onset: 4 04-30-2024 Chronic Diverticulosis and diverticulitis (1 source) Diverticulosis of large intestine without perforation or abscess without bleeding; Translations: [DVRTCLOS LG INT NO PERF/ABSC W/O BL] Onset: 2 Chronic Esophageal disorders (5 sources) Gastroesophageal reflux disease; Translations: [Gastro-esophageal reflux disease without esophagitis] 04-30-2024 Chronic Essential hypertension (11 sources) Hypertensive disorder; Translations: [Essential (primary) hypertension] Onset: 1 02-02-2021 Chronic Heart valve disorders (3 sources) Rheumatic disorders of both mitral and aortic valves; Translations: [Nonrheumatic mitral (valve) insufficiency] Onset: 2 Chronic Hyperplasia of prostate (1 source) Benign prostatic hyperplasia without lower urinary tract symptoms; Translations: [BENIGN PROSTATIC HYPRPLASIA WO LUTS] Onset: 2 Chronic Hypertension with complications and secondary hypertension (1 source) Hypertensive heart disease with heart failure; Translations: [HTN HEART DISEASE W/HEART FAIL] Onset: 2 Chronic Intestinal obstruction without hernia (1 source) Other intestinal obstruction unspecified as to partial versus complete obstruction; Translations: [Stricture of small intestine] 06-08-2024 Episodic Malaise and fatigue (1 source) Fatigue 02-02-2021 Episodic Osteoarthritis (1 source) Osteoarthritis 02-02-2021 Chronic Other aftercare (2 sources) Long-term current use of anticoagulant; Translations: [terminal superintendent (current) use of anticoagulants] Onset: 2 Episodic Other aftercare (1 source) senior care (current) use of aspirin; Translations: [WEB SITE MANAGER CURRENT USE OF ASPIRIN] Onset: 3 Episodic Other aftercare (1 source) Other half-way (current) drug therapy; Translations: [OTH HALF-WAY CURRENT DRUG THERAPY] Onset: 3 Episodic Other aftercare (2 sources) Surgical follow-up; Translations: [Encounter for follow-up examination after completed treatment for conditions other than malignant neoplasm] 06-04-2024 Episodic Other aftercare (1 source) Encounter for follow-up examination after completed treatment for conditions other than malignant neoplasm; Translations: [Follow-up examination after colorectal surgery] Onset: 4 Episodic Other connective tissue disease (2 sources) Ganglion cyst of left dorsal wrist; Translations: [Ganglion, left wrist] 01-12-2024 Episodic Other gastrointestinal disorders (1 source) Irritable bowel syndrome without diarrhea; Translations: [IRRITABLE BOWEL SYND W/O DIARRHEA] Onset: 2 Chronic Other lower respiratory disease (1 source) Shortness of breath; Translations: [SHORTNESS OF BREATH] Onset: 3 Episodic Other lower respiratory disease (2 sources) Other forms of dyspnea; Translations: [Other forms of dyspnea] Onset: 5 Episodic Other male genital disorders (1 source) Impotence 02-02-2021 Chronic Other male genital disorders (5 sources) Induratio penis plastica; Translations: [Induration penis plastica] Onset: 1 02-12-2021 Chronic Other male genital disorders (5 sources) Secondary erectile dysfunction; Translations: [Male erectile dysfunction, unspecified] Onset: 1 02-12-2021 Chronic Other nervous system disorders (1 source) Other acute postprocedural pain; Translations: [Post-op pain] Onset: 4 Episodic Other nutritional; endocrine; and metabolic disorders (2 sources) Unintentional weight loss; Translations: [Abnormal weight loss] 04-05-2024 Episodic Other nutritional; endocrine; and metabolic disorders (1 source) Abnormal weight loss; Translations: [Loss of weight] 04-05-2024 Episodic Other screening for suspected conditions (not mental disorders or infectious disease) (1 source) Abnormal findings on diagnostic imaging of other specified body structures; Translations: [ABNORML FIND DX IMG OTH BODY STRUC] Onset: 2 Chronic Regional enteritis and ulcerative colitis (20 sources) Crohn's disease; Translations: [Crohn's disease, unspecified, without complications] Onset: 2 Resolved: 4 Chronic Spondylosis; intervertebral disc disorders; other back problems (1 source) Cervical disc disorder 02-02-2021 Chronic Unclassified (1 source) Patient encounter status 04-23-2021 Unclassified (1 source) CONTACT W/AND (SUSP) EXPOS COVID-19; Translations: [CONTACT W/AND (SUSP) EXPOS COVID-19] Onset: 3 Unclassified (1 source) Other persistent atrial fibrillation; Translations: [OTHR PERSISTENT ATRIAL FIBRILLATION] Onset: 3 Past or Other Problems Problem Classification Problem Date Documented Da te Episodic/Chronic Abdominal hernia (1 source) Diaphragmatic hernia without obstruction or gangrene; Translations: [DIAPH HERNIA W/O OBST/GANGRENE] Onset: 05-10-2022 Episodic Biliary tract disease (7 sources) Biliary calculus; Translations: [[place]] Onset: 04-16-2022 04-23-2021 Episodic Deficiency and other anemia (5 sources) Anemia, unspecified; Translations: [ANEMIA UNSPECIFIED] Onset: 03-12-2022 Episodic Deficiency and other anemia (4 sources) Anemia; Translations: [Anemia, unspecified] Onset: 04-30-2024 04-30-2024 Episodic Lymphadenitis (1 source) Localized enlarged lymph nodes; Translations: [LOCALIZED ENLARGED LYMPH NODES] Onset: 04-16-2022 Episodic Nausea and vomiting (4 sources) Nausea; Translations: [Nausea] Onset: 04-01-2022 Episodic Noninfectious gastroenteritis (1 source) Noninfective gastroenteritis and colitis, unspecified; Translations: [NONINFECTIVE GE AND COLITIS UNS] Onset: 07-08-2022 Episodic Other aftercare (1 source) senior care (current) use of anticoagulants; Translations: [HALF-WAY CURRNT USE ANTICOAGULANTS] Onset: 05-10-2022 Episodic Other gastrointestinal disorders (2 sources) Diarrhea, unspecified; Translations: [DIARRHEA UNSPECIFIED] Onset: 07-15-2022 Episodic Other gastrointestinal disorders (1 source) Change in bowel habit; Translations: [CHANGE IN BOWEL HABIT] Onset: 05-10-2022 Episodic Other screening for suspected conditions (not mental disorders or infectious disease) (8 sources) Other specified abnormal findings of blood chemistry; Translations: [Abnormal results of kidney function studies] Onset: 03-13-2022 Episodic Pleurisy; pneumothorax; pulmonary collapse (1 source) Pleural effusion, not elsewhere classified; Translations: [PLEURAL EFFUSION NEC] Onset: 04-16-2022 Episodic Results Test Name Value Interpretation Reference Range Facility Office Visiton 01-04-2025 Follow-up visit [id number] Ayo Alicia 1960 M Date Provider Department Center 01/04/2025 [facility]-GLORIA PAGAN [facility] Family History Problem Relation Age of Onset Atrial fibrillation Mother Other Mother Other Mother Coronary artery disease Father Family Status - Relation Status Age at Mother Father Level of Service:31378 HI OFFICE/OUTPATIENT ESTABLISHED MOD MDM 30 MIN Reason for Visit and Comments: Follow-up [151176] - 6 month follow up Normal [facility] CNOVon 08-20-2024 CNOV Office Visit ([facility] ) AYO ALICIA ([id number]) 1960 M Date Time Provider Department 12/20/24 10:40 AM CUBA HAYWOOD [facility] During your visit today, we recorded the following information about you: Temperature Pulse Blood pressure 97.3 degrees 77/minute 150/71 Cuba Haywood MD 08/21/2024 10:03 PM Signed COLORECTAL SURGERY August 20, 2024 Ayo Alicia 64 year old Chief Complaint: post op, Crohn's disease History of Present Illness: Ayo Alicia is a 64 year old male presents today s/p Laparoscopic Ileocolic Resection (Partial Colectomy) on 05/13/24 due to Crohn's disease, retained endoscopy capsule. Operative Findings: Extremely thickened friable ileal mesentery, normal colon, capsule found stuck in distal ileum prior to stricture Surgical Pathology FINAL DIAGNOSIS Terminal ileum, cecum, and appendix, ileocecectomy: - Segment of small bowel with multiple strictures, patchy chronic active enteritis, ulcers, pyloric gland metaplasia, and inflammatory-type polyps. - Retained endoscopy capsule. - Appendix with fibrolipomatous obliteration. - Cecum with no diagnostic abnormality. - Benign lymph nodes with paracortical hyperplasia. - See comment. Doing well. No pain. Tolerating diet with good bowel function PAST MEDICAL HISTORY Diagnosis Date A-fib (HCC) CAD (coronary artery disease) Crohn's disease (HCC) GERD (gastroesophageal reflux disease) HLD (hyperlipidemia) HTN (hypertension) PAST SURGICAL HISTORY Procedure Laterality Date PAST SURGICAL HISTORY OF Neck and back sx PAST SURGICAL HISTORY OF removal of cyst in wrist TOTAL KNEE REPLACEMENT Current Outpatient Medications Medication Sig Dispense Refill apixaban (ELIQUIS) 5 mg tab(s) Take 1 tablet by mouth two times a day. OK to resume on 05/19/2024 acetaminophen (TYLENOL) 500 mg tablet Take 2 tablets by mouth every 6 hours. 50 tablet 0 Bacillus coagulan-calcium carb (DIGESTIVE ADVANTAGE PROBIOTIC) 2 billion cell- 140 mg cap Take 1 capsule by mouth once daily. 30 capsule 0 methocarbamol (ROBAXIN) 750 mg tablet Take 1 tablet by mouth three times a day as needed for muscle spasms. 15 tablet 0 adalimumab (HUMIRA,CF, PEN [id number]) 80 mg/0.8 mL pen kit Inject 80 mg subcutaneously every 2 weeks. carvedilol (COREG) 25 mg tablet Take 25 mg by mouth two times a day with meals. lisinopril (ZESTRIL) 20 mg tablet Take 20 mg by mouth once daily. pantoprazole DR (PROTONIX) 40 mg tablet Take 40 mg by mouth once daily. aspirin 81 mg cap Take 81 mg by mouth once daily. atorvastatin (LIPITOR) 80 mg tablet atorvastatin 80 mg tablet TAKE 1 TABLET BY MOUTH DAILY sildenafil (VIAGRA) 100 mg tablet No current facility-administered medications for this visit. ALLERGIES No Known Allergies FAMILY HISTORY Problem Relation Age of Onset Anesthesia Problems No Family History Social History Tobacco Use Smoking status: Never Smokeless tobacco: Never Vaping Use Vaping status: Never Used Substance Use Topics Alcohol use: Not Currently Drug use: Not Currently Physical Exam: BP 150/71 (BP Site: Right Arm, BP Position: Sitting, BP Cuff Size: Regular Adult) Pulse 77 Temp 36.3 ?C (97.3 ?F) SpO2 98% General Appearance: Well appearing, alert, in no acute distress, well-hydrated, well nourished. Abdomen: Soft, nontender, incisions well-healed Assessment Assessment and Plan: Ayo Alicia is a 64 year old male status post laparoscopic ileocolic resection, well recovered. No further restrictions. He can return to see me as needed Medical Decision Making: Data Reviewed: Tests AND Documents Reviewed/ordered: Review of prior notes from myself Review of prior operative reports Review of Pathology Review of Imaging: CT Abdomen, CT Pelvis Review of Labs: CBC, BMP Review of Procedures / Tests: Colonoscopy I have independently interpreted: CT Abdomen, CT Pelvis Risk of morbidity, mortality and/or complications of treatment plan: mauricio Haywood MD Colorectal Surgery Referring Provider: CUBA HAYWOOD [[id number]] Allergies As of Date: 08/20/2024 (No Known Allergies) Date Reviewed: 08/20/2024 Reviewed by: Arleen Jernigan, OCCA - Fully Assessed Reason for Visit: Post Op [174] Primary Visit Diagnosis:Follow-up examination after colorectal surgery [Z09] Prescriptions as of 08/21/2024 - apixaban (ELIQUIS) 5 mg tab(s) Take 1 tablet by mouth two times a day. OK to resume on 05/19/2024 - acetaminophen (TYLENOL) 500 mg tablet Take 2 tablets by mouth every 6 hours. - Bacillus coagulan-calcium carb (DIGESTIVE ADVANTAGE PROBIOTIC) 2 billion cell- 140 mg cap Take 1 capsule by mouth once daily. - methocarbamol (ROBAXIN) 750 mg tablet Take 1 tablet by mouth three times a day as needed for muscle spasms. - adalimumab (HUMIRA,CF, PEN [id number]) 80 mg/0.8 mL pen kit Inject 80 mg (more content not included)... Normal [facility] 36on 08-03-2024 36 Goal BP is <130/90, raghav with hx of heart disease. Recommend heart healthy diet and exercise. Also recommend we increase his lisinopril, we can go up to 30mg daily (1.5 tablets of his current 20mg Rx). Follow-up BMP in 2-[address]. [address] [facility] Office Visiton 07-20-2024 Follow-up visit [id number] Ayo Alicia 1960 M Date Provider Department Center 07/20/2024 [place]CHELSI KENT Hos Family History Problem Relation Age of Onset Atrial fibrillation Mother Other Mother Other Mother Coronary artery disease Father Family Status - Relation Status Age at Mother Father Level of Service:84277 HI OFFICE/OUTPATIENT ESTABLISHED MOD [facility] 30 MIN Reason for Visit and Comments: Coronary Artery Disease [187] Hypertension [435007] Hyperlipidemia [182] [facility] CNOVon 06-04-2024 [facility] Office Visit ([facility] ) YAO ALICIA ([id number]) 1960 M Date Time Provider Department 06/04/24 12:20 PM PEARL CALDERON [facility] During your visit today, we recorded the following information about you: Temperature Pulse Blood pressure 97.8 degrees 69/minute 137/99 Arleen Jernigan OCCA 06/04/2024 12:21 PM Signed What is the reason for your visit today? Post op Who is your referring physician? Are you having poor oral intake? NO Have you had unintentional weight loss of 15 lbs/7 Kg in the last 3-6 months? NO Bowels: regular or soft Wound: clean AND dry Temperature: No Drains: No Pearl Calderon APRN.CNP 06/04/2024 12:46 PM Signed COLORECTAL SURGERY June 04, 2024 Ayo Alicia 64 year old This consult was requested by Dr. Haywood and my final recommendations will be communicated to the requesting health care provider by way of the shared medical record for internal providers or letter via the [employer] Postal Service for external providers. Chief Complaint: post-op visit History of Present Illness: Ayo Alicia is a 64 year old male s/p a Laparoscopic Ileocolic Resection (Partial Colectomy) on 05/13/[address] Haywood for Crohn's disease, retained endoscopy capsule. He presents today for his post-op visit. Doing well today and feels much better. Pain is minimal and tolerable, he rarely takes Tylenol at this point. His right lower quadrant has been bothering him recently, he mowed 2 lawns in 1 day and that later that evening he started feeling right lower quadrant stabbing pain periodically. Denies fevers and chills, denies nausea, eating and drinking without pain or bloating which he is quite pleased about. Bowel movements are soft brown and nonbloody, denies diarrhea or constipation. After surgery he states has been the first time he is able to eat a full meal, stand up straight without discomfort, and does not have to take antacids after meals. He has been told by multiple friends and family how much better he looks. We discussed adhering to the lifting and activity restriction at this time. We discussed diet advancement. He reports that Dr. Haywood called him earlier today to discuss surgical pathology which she was happy about. He has an upcoming appointment with Dr. Arias next week. Surgical pathology FINAL DIAGNOSIS Terminal ileum, cecum, and appendix, ileocecectomy: - Segment of small bowel with multiple strictures, patchy chronic active enteritis, ulcers, pyloric gland metaplasia, and inflammatory-type polyps. - Retained endoscopy capsule. - Appendix with fibrolipomatous obliteration. - Cecum with no diagnostic abnormality. - Benign lymph nodes with paracortical hyperplasia. - See comment. PAST MEDICAL HISTORY Diagnosis Date A-fib (HCC) CAD (coronary artery disease) Crohn's disease (HCC) GERD (gastroesophageal reflux disease) HLD (hyperlipidemia) HTN (hypertension) PAST SURGICAL HISTORY Procedure Laterality Date PAST SURGICAL HISTORY OF Neck and back sx PAST SURGICAL HISTORY OF removal of cyst in wrist TOTAL KNEE REPLACEMENT Current Outpatient Medications Medication Sig Dispense Refill apixaban (ELIQUIS) 5 mg tab(s) Take 1 tablet by mouth two times a day. OK to resume on 05/19/2024 acetaminophen (TYLENOL) 500 mg tablet Take 2 tablets by mouth every 6 hours. 50 tablet 0 Bacillus coagulan-calcium carb (DIGESTIVE ADVANTAGE PROBIOTIC) 2 billion cell- 140 mg cap Take 1 capsule by mouth once daily. 30 capsule 0 methocarbamol (ROBAXIN) 750 mg tablet Take 1 tablet by mouth three times a day as needed for muscle spasms. 15 tablet 0 adalimumab (HUMIRA,CF, PEN [id number]) 80 mg/0.8 mL pen kit Inject 80 mg subcutaneously every 2 weeks. carvedilol (COREG) 25 mg tablet Take 25 mg by mouth two times a day with meals. lisinopril (ZESTRIL) 20 mg tablet Take 20 mg by mouth once daily. pantoprazole DR (PROTONIX) 40 mg tablet Take 40 mg by mouth once daily. aspirin 81 mg cap Take 81 mg by mouth once daily. atorvastatin (LIPITOR) 80 mg tablet atorvastatin 80 mg tablet TAKE 1 TABLET BY MOUTH DAILY sildenafil (VIAGRA) 100 mg tablet No current facility-administered medications for this visit. ALLERGIES No Known Allergies FAMILY HISTORY Problem Relation Age of Onset Anesthesia Problems No Family History Social History Tobacco Use Smoking status: Never Smokeless tobacco: Never Vaping Use Vaping status: Never Used Substance Use Topics Alcohol use: Not Currently Drug use: Not Currently Physical Exam: BP 137/99 (BP Site: Right Arm, BP Position: Sitting, BP Cuff Size: Regular Adult) Pulse 69 Temp 36.6 ?C (97.8 ?F) SpO2 99% General Appearance: Well appearing, alert, in no acute distress, well-hydrated, well nourished. Abdomen: Soft, nontender, nondistended. Incisions healing well and glue is gone. Mild tenderness in (more content not included)... Normal [facility] CNDSon 05-18-2024 CNDS HNO ID: [id number] Author: CUBA HAYWOOD MD Service: Colorectal Author Type: Nurse Practitioner Type: Discharge Summary Filed: 05/19/2024 08:46 Note Text: Attestation signed by Cuba Haywood MD at 05/19/2024 8:46 AM Attending Note As above Signature: Cuba Haywood MD Date: 05/19/2024 Time: 8:46 AM DISCHARGE SUMMARY PATIENT NAME: Ayo Alicia ADMISSION DATE: 05/13/2024 DISCHARGE DATE: 05/18/2024 ATTENDING PHYSICIAN: Cuba Haywood MD Code Status: Not on file Highest Readmission Risk Score: 14 The 30 day readmissions risk score is derived from an internally validated risk model which evaluates patient level characteristics, utilization history, medication orders and lab results up until the day of discharge. Patients with a score of 40 or above are considered highest risk for readmission. Specific patient level drivers will be listed at the bottom of the summary. CONSULTING TEAMS DURING HOSPITALIZATION: None Treatment Team: Attending Provider: Cuba Haywood MD REASON FOR HOSPITALIZATION: scheduled surgery DIAGNOSIS: Principal Problem (Resolved): Complication due to Crohn's disease (HCC) (POA: Yes) Active Problems: * No active hospital problems. * Colectomy SSI Bundle Reporting: Was this an elective case: Yes Which of the following did the patient complete pre-operatively? Combined Oral Antibiotic Bowel Prep OPERATIONS DURING HOSPITALIZATION: Laparoscopic Ileocolic Resection (Partial Colectomy) PROCEDURES DURING HOSPITALIZATION: No procedures performed HOSPITAL COURSE: Mr. Alicia is a 64 year old male who was admitted for scheduled surgery with Dr. Haywood - Laparoscopic Ileocolic Resection (Partial Colectomy). Post-op on the regular nursing floor. Pain well controlled. Labs and vital signs remained stable. DVT ppx while admitted, OK to resume eliquis at discharge on 05/19/2024. Diet advanced as tolerated, able to eat GI soft on 05/18/2024 without concern once distension improved. Bowel function with flatus and stools. Mobilized without concern. Perez removed and able to void freely. On 05/18/2024 he was discharged home with follow up scheduled. Transitions of Care Critical Issues: Ok to resume eliquis on 05/19/2024 LABS AND PROCEDURES PENDING AT DISCHARGE: Pathology Results (surgical) PATIENT CONDITION AT DISCHARGE: Stable DISCHARGE DISPOSITION: Home with Self Care Discharge Physical Exam: VITAL SIGNS: BP 160/73 Pulse 66 Temp 36.8 ?C (98.2 ?F) (Oral) Resp 16 Ht 172.7 cm (5' 8 ) Wt 79.4 kg (175 lb) SpO2 98% BMI 26.61 kg/m? INFORMATION PROVIDED TO PATIENT: discharge instructions ALLERGIES No Known Allergies DISCHARGE MEDICATION: Medication List START taking these medications lactobacillus rhamnosus 10 billion cell capsule Commonly known as: CULTURELLE Take 1 capsule by mouth once daily. Start taking on: May 19, 2024 methocarbamol 750 mg tablet Commonly known as: ROBAXIN Take 1 tablet by mouth three times a day as needed for muscle spasms. oxyCODONE IR 5 mg immediate release tablet Commonly known as: ROXICODONE Take 1 tablet by mouth every 6 hours as needed for up to 7 days. CHANGE how you take these medications acetaminophen 500 mg tablet Commonly known as: TYLENOL Take 2 tablets by mouth every 6 hours. What changed: medication strength how much to take when to take this reasons to take this apixaban 5 mg tab(s) Commonly known as: ELIQUIS Take 1 tablet by mouth two times a day. OK to resume on 05/19/2024 What changed: additional instructions CONTINUE taking these medications aspirin 81 mg Cap atorvastatin 80 mg tablet Commonly known as: LIPITOR carvedilol 25 mg tablet Commonly known as: COREG HUMIRA(CF) PEN [id number] 80 mg/0.8 mL pen kit Generic drug: adalimumab lisinopril 20 mg tablet Commonly known as: ZESTRIL PROTONIX 40 mg tablet Generic drug: pantoprazole DR sildenafil 100 mg tablet Commonly known as: VIAGRA STOP taking these medications metroNIDAZOLE 500 mg tablet Commonly known as: FLAGYL neomycin 500 mg tablet Where to Get Your Medications These medications were sent to [facility] [address] [place] [address] Hours: Friday-Friday: 7am-7pm, Sat: 9am-1pm acetaminophen 500 mg tablet lactobacillus rhamnosus 10 billion cell capsule methocarbamol 750 mg tablet oxyCODONE IR 5 mg immediate release tablet Future Appointments Date Time Provider Department Center 06/04/2024 12:20 PM Pearl Calderon APRN.DENTAL MECHANIC [facility] The patient's risk for 30-day readmission is determined using the following contributing factors: Pt variables contributing to increased readmission risk: 19 Most Recent BUN Result 10 Active Medication Orders (more content not included)... Normal [facility] THERAPY NTon 05-17-2024 THERAPY NT HNO ID: [id number] Author: ONEYDA EDWARDS, PT Service: Physical Therapy Author Type: Physical Therapist Type: Therapy (PT/OT/Speech/Resp) Filed: 05/17/2024 13:05 Note Text: PHYSICAL THERAPY MISSED VISIT SERVICE DATE: 05/17/2024 SERVICE TIME: 904 ROOM: [place] [address] Patient not seen due to pt ambulating independently per RN and OT ; will discharge PT order as patient has no further PT needs SIGNATURE: Oneyda Edwards, PT PATIENT NAME: Ayo Rodriguez Withem DATE: May 17, 2024 TIME: 1:04 PM [facility] THERAPY NT HNO ID: [id number] Author: BECCA MONTENEGRO OTR/Rose Service: Occupational Therapy Author Type: Occupational Therapist Type: Therapy (PT/OT/Speech/Resp) Filed: 05/17/2024 12:23 Note Text: OCCUPATIONAL THERAPY MISSED VISIT SERVICE DATE: 05/17/2024 SERVICE TIME: 1220 ROOM: [place] [address] Patient not seen due to Clinical Appropriateness (Pt ambulating unit independently. Pt reported to this therapist that he is doing well, and has no further need for OT. Pt agreeable to discharge at this time. No billable hours.). Pt discharged from OT at this time. SIGNATURE: LAURA Sosa/Rose PATIENT NAME: Ayo Rodriguez [place] DATE: May 17, 2024 TIME: 12:22 PM [facility] ALLIED HEALTHon 05-16-2024 ALLIED HEALTH HNO ID: [id number] Author: JEREMY MALDONADO RT(R) Service: ? Author Type: Technologist Type: Allied Health Filed: 05/16/2024 09:54 Note Text: Radiology Service Progress Note PATIENT NAME: Ayo Alicia DATE OF SERVICE: May 16, 2024 TIME: 9:53 AM PATIENT IDENTITY VERIFICATION COMPLETED USING TWO (2) IDENTIFIERS: Name and Date of confirmed by patient verbally and Name and Date of confirmed by identification band. FALL SCREENING: Has the patient had 2 falls in the last year or 1 fall with injury or currently using an Ambulatory Assistive Device (Walker, Cane, Wheelchair, Crutches, etc.)? Inpatient: Screened on floor PATIENT GENDER DATA: Male PATIENT RELEVANT IMPLANT DATA REVIEWED: Not Applicable PATIENT PRESENTS WITH AN IMPLANTABLE OR ATTACHED TECHNICAL SUPPORT INTERN: No RADIOLOGY DEPARTMENT: General X-ray: Exam(s) Completed: Abdomen X-Ray: Abdomen PERIPHERAL IV DATA: Not applicable SIGNED BY: RT Tonya(R) May 16, 2024 9:53 AM [facility] NURSING PROGon 05-16-2024 NURSING PROG HNO ID: [id number] Author: AFSANEH EDGE RN Service: Nursing Author Type: Registered Nurse Type: Nursing Progress Note Filed: 05/16/2024 11:03 Note Text: Daily Note: 0725: paged sent to [facility] regarding no lab order for AM. Awaiting response. 0733: per [facility], no labs needed at this time. [facility] XR ABDOMEN 1V SUPINEon 05-16 XR ABDOMEN 1V SUPINE * * *Final Report* * * DATE OF EXAM: May 16 2024 9:54AM FVX [id number] - XR ABDOMEN 1V SUPINE / PROCEDURE REASON: Ileus vs obstruction * * * * Physician Interpretation * * * * EXAMINATION: XR ABDOMEN 1V SUPINE CLINICAL HISTORY: Ileus vs obstruction, Nausea/Vomiting Technique: XR ABDOMEN 1V SUPINE -- with 1 views on 1 images Comparison: CT 04/16/2024 RESULT: Gaseous distention of several loops of small bowel measuring up to 3.1 cm. Gaseous distention of the transverse colon measuring up to 8.7 cm IMPRESSION: Gaseous distention of loops of large and small bowel. Could reflect postoperative ileus or obstruction Manufacturing Engineering Director: AARON Transcribe Date/Time: May 17 2024 7:20A Dictated by : SEBASTIEN ADORNO MD This examination was interpreted and the report reviewed and electronically signed by: SEBASTIEN ADORNO MD on May 17 2024 7:24AM EST [id number] Normal [facility] Basic metabolic 2000 panelon 05-15-2024 Anion gap [Moles/Vol] 8 mmol/L Normal 8-15 [facility] Comment on above: Order Comment: Speci men Type: TISSUE SPECIMEN Ordering Facility: [facility] Address: [address] [place] [address] Performed By: #### S #### [facility] CLIA [id number] [address] [place] [address] [place] [facility] CLIA [id number] [address] [place] [address] [place] Calcium [Mass/Vol] 8.3 mg/dL Low 8.5-10.2 [facility] Comment on above: Order Comment: Speci men Type: TISSUE SPECIMEN Ordering Facility: [facility] Address: [address] [place] [address] Performed By: #### S #### [facility] CLIA [id number] [address] [place] [address] [place] [facility] CLIA [id number] [address] [place] [address] [place] Chloride [Moles/Vol] 106 mmol/L Normal 98-107 [facility] Comment on above: Order Comment: Speci men Type: TISSUE SPECIMEN Ordering Facility: [facility] Address: [address] [place] [address] Performed By: #### S #### [facility] CLIA [id number] [address] [place] [address] [place] [facility] CLIA [id number] [address] [place] [address] [place] CO2 [Moles/Vol] 25 mmol/L Normal 22-30 [facility] Comment on above: Order Comment: Specgasper cho Type: TISSUE SPECIMEN Ordering Facility: [facility] Address: [address] [place] [address] Performed By: #### S #### [facility] CLIA [id number] [address] [place] [address] STATES [facility] CLIA [id number] [address] [place] [address] [place] Creatinine [Mass/Vol] 0.87 mg/dL Normal 0.73-1.22 [facility] Comment on above: Order Comment: Asuncion cho Type: TISSUE SPECIMEN Ordering Facility: [facility] Address: [address] [place] [address] Performed By: #### S #### [facility] CLIA [id number] [address] [place] [address] LAB CLIA [id number] [address] [place] [address] [place] Creatinine and Glomerular filtration rate.predicted panel (S/P/Bld) 96 mL/min/1.73m??? Normal >=60 [facility] Comment on above: Order Comment: Asuncion cho Type: TISSUE SPECIMEN Ordering Facility: [facility] Address: [address] [place] [address] Result Comment: Phyllis mated Glomerular Filtration Rate (eGFR) is calculated using the 2020 CKD-EPI creatinine equation. This equation utilizes serum creatinine, sex, and age as parameters. The creatinine assay has traceable calibration to isotope dilution-mass spectrometry. Refer to KDIGO guidelines for clinical interpretation. In patients with unstable renal function, e.g. those with acute kidney injury, the eGFR may not accurately reflect actual GFR. Performed By: #### S #### [facility] CLIA [id number] [address] [place] [address] [place] [facility] CLIA [id number] [address] [place] [address] [place] Glucose [Mass/Vol] 119 mg/dL High 74-99 [facility] Comment on above: Order Comment: Specgasper men Type: TISSUE SPECIMEN Ordering Facility: [facility] Address: [address] [place] [address] Result Comment: The [place] Diabetes Association (ADA) provides guidance for cutoff values for fasting glucose and random glucose. The ADA defines fasting as no caloric intake for at least 8 hours. Fasting plasma glucose results between 100 to 125 mg/dL indicate increased risk for diabetes (prediabetes). Fasting plasma glucose results greater than or equal to 126 mg/dL meet the criteria for diagnosis of diabetes. In the absence of unequivocal hyperglycemia, results should be confirmed by repeat testing. In a patient with classic symptoms of hyperglycemia or hyperglycemic crisis, random plasma glucose results greater than or equal to 200 mg/dL meet the criteria for diagnosis of diabetes. Reference: Standards of Medical Care in Diabetes 2016, [employer] Diabetes Association. Diabetes Care. 2016.39(Suppl 1). Performed By: #### S #### [facility] CLIA [id number] [address] [place] [address] [place] [facility] CLIA [id number] [address] [place] [address] [place] Potassium [Moles/Vol] 4.0 mmol/L Normal 3.7-5.1 [facility] Comment on above: Order Comment: Asuncion cho Type: TISSUE SPECIMEN Ordering Facility: [facility] Address: [address] [place] [address] Performed By: #### S #### [facility] CLIA [id number] [address] [place] [address] [place] [facility] CLIA [id number] [address] [place] [address] [place] Sodium [Moles/Vol] 139 mmol/L Normal 136-144 [facility] Comment on above: Order Comment: Asuncion cho Type: TISSUE SPECIMEN Ordering Facility: [facility] Address: [address] [place] [address] Performed By: #### S #### [facility] CLIA [id number] [address] [place] [address] [place] [facility] CLIA [id number] [address] [place] [address] [place] Urea nitrogen [Mass/Vol] 19 mg/dL Normal 9-24 [facility] Comment on above: Order Comment: Speci men Type: TISSUE SPECIMEN Ordering Facility: [facility] Address: [address] [place] [address] Performed By: #### S #### [facility] CLIA [id number] [address] [place] [address] [place] [facility] CLIA [id number] [address] [place] [address] [place] CBC W Auto Differential pane l (Bld)on 05-15-2024 Basophils (Bld) [#/Vol] 10*3/uL Normal <0.11 [facility] Comment on above: Order Comment: Speci men Type: TISSUE SPECIMEN Ordering Facility: [facility] Address: [address] [place] [address] Performed By: #### S #### [facility] CLIA [id number] [address] [place] [address] [place] [facility] CLIA [id number] [address] [place] [address] [place] Basophils/100 WBC (Bld) 0.2 % Normal [facility] Comment on above: Order Comment: Speci men Type: TISSUE SPECIMEN Ordering Facility: [facility] Address: [address] [place] [address] Performed By: #### S #### [facility] CLIA [id number] [address] [place] [address] [place] [facility] CLIA [id number] [address] [place] [address] [place] Differential cell count method Nom (Bld) Auto Normal [facility] Comment on above: Order Comment: Speci men Type: TISSUE SPECIMEN Ordering Facility: [facility] Address: [address] [place] [address] Performed By: #### S #### [facility] CLIA [id number] [address] [place] [address] [place] [facility] CLIA [id number] [address] [place] [address] [place] Eosinophils (Bld) [#/Vol] 0.07 10*3/uL Normal <0.46 [facility] Comment on above: Order Comment: Speci men Type: TISSUE SPECIMEN Ordering Facility: [facility] Address: [address] [place] [address] Performed By: #### S #### [facility] CLIA [id number] [address] [place] [address] [place] [facility] CLIA [id number] [address] [place] [address] [place] Eosinophils/100 WBC (Bld) 0.6 % Normal [facility] Comment on above: Order Comment: Speci men Type: TISSUE SPECIMEN Ordering Facility: [facility] Address: [address] [place] [address] Performed By: #### S #### [facility] CLIA [id number] [address] [place] [address] [place] [facility] CLIA [id number] [address] [place] [address] [place] Erythrocyte distribution width (RBC) [Ratio] 15.9 % High 11.5-15.0 [facility] Comment on above: Order Comment: Speci men Type: TISSUE SPECIMEN Ordering Facility: [facility] Address: [address] [place] [address] Performed By: #### S #### [facility] CLIA [id number] [address] [place] [address] [place] [facility] CLIA [id number] [address] [place] [address] [place] Hematocrit (Bld) [Volume fraction] 23.5 % Low 39.0-51.0 [facility] Comment on above: Order Comment: Speci men Type: TISSUE SPECIMEN Ordering Facility: [facility] Address: [address] [place] [address] Performed By: #### S #### [facility] CLIA [id number] [address] [place] [address] [place] [facility] CLIA [id number] [address] [place] [address] [place] Hemoglobin (Bld) [Mass/Vol] 7.1 g/dL Low 13.0-17.0 [facility] Comment on above: Order Comment: Speci men Type: TISSUE SPECIMEN Ordering Facility: [facility] Address: [address] [place] [address] Performed By: #### S #### [facility] CLIA [id number] [address] [place] [address] [place] [facility] CLIA [id number] [address] [place] [address] [place] Immature granulocytes (Bld) [#/Vol] 0.07 10*3/uL Normal <0.10 [facility] Comment on above: Order Comment: Speci men Type: TISSUE SPECIMEN Ordering Facility: [facility] Address: [address] [place] [address] Performed By: #### S #### [facility] IA [id number] [address] [place] [address] [place] [facility] [facility] CLIA [id number] [address] [place] [address] [place] Immature granulocytes/100 WBC (Bld) 0.6 % Normal [facility] Comment on above: Order Comment: Speci men Type: TISSUE SPECIMEN Ordering Facility: [facility] Address: [address] [place] [address] Performed By: #### S #### [facility] CLIA [id number] [address] [place] [address] [place] [facility] CLIA [id number] [address] [place] [address] [place] Lymphocytes (Bld) [#/Vol] 1.13 10*3/uL Normal 1.00-4.00 [facility] Comment on above: Order Comment: Speci men Type: TISSUE SPECIMEN Ordering Facility: [facility] Address: [address] [place] [address] Performed By: #### S #### [facility] CLIA [id number] [address] [place] [address] [place] [facility] CLIA [id number] [address] [place] [address] [place] Lymphocytes/100 WBC (Bld) 10.0 % Normal [facility] Comment on above: Order Comment: Speci men Type: TISSUE SPECIMEN Ordering Facility: [facility] Address: [address] [place] [address] Performed By: #### S #### [facility] CLIA [id number] [address] [place] [address] [place] [facility] CLIA [id number] [address] [place] [address] [place] MCH (RBC) [Entitic mass] 26.2 pg Normal 26.0-34.0 [facility] Comment on above: Order Comment: Speci men Type: TISSUE SPECIMEN Ordering Facility: [facility] Address: [address] [place] [address] Performed By: #### S #### [facility] CLIA [id number] [address] [place] [address] [place] [facility] CLIA [id number] [address] [place] [address] [place] MCHC (RBC) [Mass/Vol] 30.2 g/dL Low 30.5-36.0 [facility] Comment on above: Order Comment: Speci men Type: TISSUE SPECIMEN Ordering Facility: [facility] Address: [address] [place] [address] Performed By: #### S #### [facility] CLIA [id number] [address] [place] [address] [place] [facility] CLIA [id number] [address] [place] [address] [place] MCV (RBC) [Entitic vol] 86.7 fL Normal 80.0-100.0 [facility] Comment on above: Order Comment: Speci men Type: TISSUE SPECIMEN Ordering Facility: [facility] Address: [address] [place] [address] Performed By: #### S #### [facility] CLIA [id number] [address] [place] [address] [place] [facility] CLIA [id number] [address] [place] [address] [place] Monocytes (Bld) [#/Vol] 0.98 10*3/uL High <0.87 [facility] Comment on above: Order Comment: Speci men Type: TISSUE SPECIMEN Ordering Facility: [facility] Address: [address] [place] [address] Performed By: #### S #### [facility] CLIA [id number] [address] [place] [address] [place] [facility] CLIA [id number] [address] [place] [address] [place] Monocytes/100 WBC (Bld) 8.7 % Normal [facility] Comment on above: Order Comment: Speci men Type: TISSUE SPECIMEN Ordering Facility: [facility] Address: [address] [place] [address] Performed By: #### S #### [facility] CLIA [id number] [address] [place] [address] [place] [facility] CLIA [id number] [address] [place] [address] [place] Neutrophils (Bld) [#/Vol] 9.02 10*3/uL High 1.45-7.50 [facility] Comment on above: Order Comment: Speci men Type: TISSUE SPECIMEN Ordering Facility: [facility] Address: [address] [place] [address] Performed By: #### S #### [facility] CLIA [id number] [address] [place] [address] [place] [facility] CLIA [id number] [address] [place] [address] [place] Neutrophils/100 WBC (Bld) 79.9 % Normal [facility] Comment on above: Order Comment: Speci men Type: TISSUE SPECIMEN Ordering Facility: [facility] Address: [address] [place] [address] Performed By: #### S #### [facility] CLIA [id number] [address] [place] [address] [place] [facility] CLIA [id number] [address] [place] [address] [place] Nucleated RBC (Bld) [#/Vol] 10*3/uL Normal <0.01 [facility] Comment on above: Order Comment: Speci men Type: TISSUE SPECIMEN Ordering Facility: [facility] Address: [address] [place] [address] Performed By: #### S #### [facility] CLIA [id number] [address] [place] [address] [place] [facility] CLIA [id number] [address] [place] [address] [place] Nucleated RBC/100 WBC (Bld) [Ratio] 0.0 /100 WBC Normal [facility] Comment on above: Order Comment: Speci men Type: TISSUE SPECIMEN Ordering Facility: [facility] Address: [address] [place] [address] Performed By: #### S #### [facility] CLIA [id number] [address] [place] [address] [place] [facility] CLIA [id number] [address] [place] [address] [place] Platelet mean volume (Bld) [Entitic vol] 9.7 fL Normal 9.0-12.7 [facility] Comment on above: Order Comment: Speci men Type: TISSUE SPECIMEN Ordering Facility: [facility] Address: [address] [place] [address] Performed By: #### S #### [facility] CLIA [id number] [address] [place] [address] [place] [facility] CLIA [id number] [address] [place] [address] [place] Platelets (Bld) [#/Vol] 299 10*3/uL Normal 150-400 [facility] Comment on above: Order Comment: Speci men Type: TISSUE SPECIMEN Ordering Facility: [facility] Address: [address] [place] [address] Performed By: #### S #### [facility] CLIA [id number] [address] [place] [address] [place] [facility] CLIA [id number] [address] [place] [address] [place] RBC (Bld) [#/Vol] 2.71 10*6/uL Low 4.20-6.00 [facility] Comment on above: Order Comment: Speci men Type: TISSUE SPECIMEN Ordering Facility: [facility] Address: [address] [place] [address] Performed By: #### S #### [facility] CLIA [id number] [address] [place] [address] [place] [facility] CLIA [id number] [address] [place] [address] [place] WBC (Bld) [#/Vol] 11.29 10*3/uL High 3.70-11.00 [facility] Comment on above: Order Comment: Speci men Type: TISSUE SPECIMEN Ordering Facility: [facility] Address: [address] [place] [address] Performed By: #### S #### [facility] CLIA [id number] [address] [place] [address] [place] [facility] CLIA [id number] [address] [place] [address] [place] CBC panel Auto (Bld)on 05-15 Erythrocyte distribution width (RBC) [Ratio] 15.9 % High 11.5-15.0 [facility] Comment on above: Order Comment: Speci men Type: BLOOD SPECIMENOrdering Facility: [facility] Address: [address] [place] [address] Performed By: #### 5 8410-2 ####[facility] [id number] [address] [facility] Hematocrit (Bld) [Volume fraction] 27.6 % Low 39.0-51.0 [facility] Comment on above: Order Comment: Speci men Type: BLOOD SPECIMENOrdering Facility: [facility] Address: [address] [place] [address] Performed By: #### 5 8410-2 ####[facility] [id number] [address] [place] Hemoglobin (Bld) [Mass/Vol] 8.4 g/dL Low 13.0-17.0 [facility] Comment on above: Order Comment: Speci men Type: BLOOD SPECIMENOrdering Facility: [facility] Address: [address] [place] [address] Performed By: #### 5 8410-2 ####[facility] [id number] [address] [place] MCH (RBC) [Entitic mass] 26.3 pg Normal 26.0-34.0 [facility] Comment on above: Order Comment: Speci men Type: BLOOD SPECIMENOrdering Facility: [facility] Address: [address] [place] [address] Performed By: #### 5 8410-2 ####[facility]ORYCLIA [id number] [address] [place] MCHC (RBC) [Mass/Vol] 30.4 g/dL Low 30.5-36.0 [facility] Comment on above: Order Comment: Speci men Type: BLOOD SPECIMENOrdering Facility: [facility] Address: [address] [place] [address] Performed By: #### 5 8410-2 ####[facility]ORATORYCLIA [id number] [place] [id number] [place] MCV (RBC) [Entitic vol] 86.5 fL Normal 80.0-100.0 [facility] Comment on above: Order Comment: Speci men Type: BLOOD SPECIMENOrdering Facility: [facility] Address: [address] [place] [address] Performed By: #### 5 8410-2 ####[facility] [id number] [place] [address] [place] Nucleated RBC (Bld) [#/Vol] 10*3/uL Normal <0.01 [facility] Comment on above: Order Comment: Speci men Type: BLOOD SPECIMENOrdering Facility: [facility] Address: [address] [place] [address] Performed By: #### 5 8410-2 ####[facility] [id number] [place] [address] [place] Platelet mean volume (Bld) [Entitic vol] 9.2 fL Normal 9.0-12.7 [facility] Comment on above: Order Comment: Speci men Type: BLOOD SPECIMENOrdering Facility: [facility] Address: [address] [place] [address] Performed By: #### 5 8410-2 ####[facility] [id number] [place] [address] [place] Platelets (Bld) [#/Vol] 382 10*3/uL Normal 150-400 [facility] Comment on above: Order Comment: Speci men Type: BLOOD SPECIMENOrdering Facility: [facility] Address: [address] [place] [address] Performed By: #### 5 8410-2 ####[facility] [id number] [place] [address] [place] RBC (Bld) [#/Vol] 3.19 10*6/uL Low 4.20-6.00 [facility] Comment on above: Order Comment: Speci men Type: BLOOD SPECIMENOrdering Facility: [facility] Address: [address] [place] [address] Performed By: #### 5 8410-2 ####[facility] [id number] [place] [address] [place] WBC (Bld) [#/Vol] 12.88 10*3/uL High 3.70-11.00 [facility] Comment on above: Order Comment: Speci men Type: BLOOD SPECIMENOrdering Facility: [facility] Address: [address] [place] [address] Performed By: #### 5 8410-2 ####[facility]ORYCLIA [id number] [place] [address] [place] Magnesium SerPl-mCncon 05-15 Magnesium [Mass/Vol] 1.9 mg/dL Normal 1.7-2.3 [facility] Comment on above: Order Comment: Speci men Type: TISSUE SPECIMEN Ordering Facility: [facility] Address: [address] [place] [address] Performed By: #### S #### [facility] CLIA [id number] [address] [place] [address] [place] [facility] CLIA [id number] [address] [place] [address] [place] Basic metabolic 2000 panelon 05-14-2024 Anion gap [Moles/Vol] 11 mmol/L Normal 8-15 [facility] Comment on above: Order Comment: Speci men Type: BLOOD SPECIMENOrdering Facility: [facility] Address: [address] [place] [address] Performed By: #### 2 4321-2, 54156-4 ####[facility]ORYCLIA [id number] [place] [address] [place] Calcium [Mass/Vol] 8.3 mg/dL Low 8.5-10.2 [facility] Comment on above: Order Comment: Speci men Type: BLOOD SPECIMENOrdering Facility: [facility] Address: [address] [place] [address] Performed By: #### 2 4321-2, ####[facility]ATORYCLIA [id number] [place] [address] [place] Chloride [Moles/Vol] 104 mmol/L Normal 98-107 [facility] Comment on above: Order Comment: Speci men Type: BLOOD SPECIMENOrdering Facility: [facility] Address: [address] [place] [address] Performed By: #### 2 4321-2, ####[facility]ATORYCLIA [id number] [place] [id number] [place] CO2 [Moles/Vol] 22 mmol/L Normal 22-30 [facility] Comment on above: Order Comment: Speci men Type: BLOOD SPECIMENOrdering Facility: [facility] Address: [address] [place] [address] Performed By: #### 2 432-2, ####[facility]ORATORYCLIA [id number] [place] [id number] [place] Creatinine [Mass/Vol] 0.92 mg/dL Normal 0.73-1.22 [facility] Comment on above: Order Comment: Speci men Type: BLOOD SPECIMENOrdering Facility: [facility] Address: [address] [place] [address] Performed By: #### 2 432-2, ####[facility]ORATORYCLIA [id number] [place] [id number] [facility] Creatinine and Glomerular filtration rate.predicted panel (S/P/Bld) 92 mL/min/1.73m??? Normal >=60 [facility] Comment on above: Order Comment: Speci men Type: BLOOD SPECIMENOrdering Facility: [facility] Address: [address] [place] [address] Result Comment: Phyllis mated Glomerular Filtration Rate (eGFR) is calculated using the 2020 CKD-EPI creatinine equation. This equation utilizes serum creatinine, sex, and age as parameters. The creatinine assay has traceable calibration to isotope dilution-mass spectrometry. Refer to KDIGO guidelines for clinical interpretation. In patients with unstable renal function, e.g. those with acute kidney injury, the eGFR may not accurately reflect actual GFR. Performed By: #### 2 43209-02, ####[facility]ORYCLIA [id number] [place] [id number] [place] Glucose [Mass/Vol] 153 mg/dL High 74-99 [facility] Comment on above: Order Comment: Speci men Type: BLOOD SPECIMENOrdering Facility: [facility] Address: [address] [place] [address] Result Comment: The [place] Diabetes Association (ADA) provides guidance for cutoff values for fasting glucose and random glucose. The ADA defines fasting as no caloric intake for at least 8 hours. Fasting plasma glucose results between 100 to 125 mg/dL indicate increased risk for diabetes (prediabetes). Fasting plasma glucose results greater than or equal to 126 mg/dL meet the criteria for diagnosis of diabetes. In the absence of unequivocal hyperglycemia, results should be confirmed by repeat testing. In a patient with classic symptoms of hyperglycemia or hyperglycemic crisis, random plasma glucose results greater than or equal to 200 mg/dL meet the criteria for diagnosis of diabetes. Reference: Standards of Medical Care in Diabetes 2016, [employer] Diabetes Association. Diabetes Care. 2016.39(Suppl 1). Performed By: #### 2 4320-10, ####[facility]ORYCLIA [id number] [place] [id number] [place] Potassium [Moles/Vol] 4.2 mmol/L Normal 3.7-5.1 [facility] Comment on above: Order Comment: Speci men Type: BLOOD SPECIMENOrdering Facility: [facility] Address: [address] [place] [address] Performed By: #### 2 4320-10, ####[facility]ORYCLIA [id number] [place] [id number] [place] Sodium [Moles/Vol] 137 mmol/L Normal 136-144 [facility] Comment on above: Order Comment: Speci men Type: BLOOD SPECIMENOrdering Facility: [facility] Address: [address] [place] [address] Performed By: #### 2 4320-10, ####[facility]ORYCLIA [id number] [place] [id number] [place] Urea nitrogen [Mass/Vol] 17 mg/dL Normal 9- [facility] Comment on above: Order Comment: Speci men Type: BLOOD SPECIMENOrdering Facility: [facility] Address: [address] [place] [address] Performed By: #### 2 4321-2, ####[facility]ORYCLIA [id number] [place] [id number] [place] CBC W Auto Differential pane l (Bld)on 05-14-2024 Basophils (Bld) [#/Vol] 10*3/uL Normal <0.11 [facility] Comment on above: Order Comment: Speci men Type: TISSUE SPECIMEN Ordering Facility: [facility] Address: [address] [place] [address] Performed By: #### S #### [facility] CLIA [id number] [address] [place] [address] [place] [facility] CLIA [id number] [address] [place] [address] [place] Basophils/100 WBC (Bld) 0.1 % Normal [facility] Comment on above: Order Comment: Speci men Type: TISSUE SPECIMEN Ordering Facility: [facility] Address: [address] [place] [address] Performed By: #### S #### [facility] CLIA [id number] [address] [place] [address] [place] [facility] CLIA [id number] [address] [place] [address] [place] Differential cell count method Nom (Bld) Auto Normal [facility] Comment on above: Order Comment: Speci men Type: TISSUE SPECIMEN Ordering Facility: [facility] Address: [address] [place] [address] Performed By: #### S #### [facility] CLIA [id number] [address] [place] [address] [place] [facility] CLIA [id number] [address] [place] [address] [place] Eosinophils (Bld) [#/Vol] 10*3/uL Normal <0.46 [facility] Comment on above: Order Comment: Speci men Type: TISSUE SPECIMEN Ordering Facility: [facility] Address: [address] [place] [address] Performed By: #### S #### [facility] CLIA [id number] [address] [place] [address] [place] [facility] CLIA [id number] [address] [place] [address] [place] Eosinophils/100 WBC (Bld) 0.0 % Normal [facility] Comment on above: Order Comment: Speci men Type: TISSUE SPECIMEN Ordering Facility: [facility] Address: [address] [place] [address] Performed By: #### S #### [facility] CLIA [id number] [address] [place] [address] [place] [facility] CLIA [id number] [address] [place] [address] [place] Erythrocyte distribution width (RBC) [Ratio] 15.0 % Normal 11.5-15.0 [facility] Comment on above: Order Comment: Speci men Type: TISSUE SPECIMEN Ordering Facility: [facility] Address: [address] [place] [address] Performed By: #### S #### [facility] CLIA [id number] [address] [place] [address] [place] [facility] CLIA [id number] [address] [place] [address] [place] Hematocrit (Bld) [Volume fraction] 24.4 % Low 39.0-51.0 [facility] Comment on above: Order Comment: Speci men Type: TISSUE SPECIMEN Ordering Facility: [facility] Address: [address] [place] [address] Performed By: #### S #### [facility] CLIA [id number] [address] [place] [address] [place] [facility] CLIA [id number] [address] [place] [address] [place] Hemoglobin (Bld) [Mass/Vol] 7.7 g/dL Low 13.0-17.0 [facility] Comment on above: Order Comment: Speci men Type: TISSUE SPECIMEN Ordering Facility: [facility] Address: [address] [place] [address] Performed By: #### S #### [facility] CLIA [id number] [address] [place] [address] [place] [facility] CLIA [id number] [address] [place] [address] [place] Immature granulocytes (Bld) [#/Vol] 0.06 10*3/uL Normal <0.10 [facility] Comment on above: Order Comment: Speci men Type: TISSUE SPECIMEN Ordering Facility: [facility] Address: [address] [place] [address] Performed By: #### S #### [facility] CLIA [id number] [address] [place] [address] [place] [facility] CLIA [id number] [address] [place] [address] [place] Immature granulocytes/100 WBC (Bld) 0.5 % Normal [facility] Comment on above: Order Comment: Speci men Type: TISSUE SPECIMEN Ordering Facility: [facility] Address: [address] [place] [address] Performed By: #### S #### [facility] CLIA [id number] [address] [place] [address] [place] [facility] CLIA [id number] [address] [place] [address] [place] Lymphocytes (Bld) [#/Vol] 0.45 10*3/uL Low 1.00-4.00 [facility] Comment on above: Order Comment: Speci men Type: TISSUE SPECIMEN Ordering Facility: [facility] Address: [address] [place] [address] Performed By: #### S #### [facility] CLIA [id number] [address] [place] [address] [place] [facility] CLIA [id number] [address] [place] [address] [place] Lymphocytes/100 WBC (Bld) 3.7 % Normal [facility] Comment on above: Order Comment: Speci men Type: TISSUE SPECIMEN Ordering Facility: [facility] Address: [address] [place] [address] Performed By: #### S #### [facility] CLIA [id number] [address] [place] [address] [place] [facility] CLIA [id number] [address] [place] [address] [place] MCH (RBC) [Entitic mass] 26.6 pg Normal 26.0-34.0 [facility] Comment on above: Order Comment: Speci men Type: TISSUE SPECIMEN Ordering Facility: [facility] Address: [address] [place] [address] Performed By: #### S #### [facility] [place] [id number] [address] [place] [address] [place] [facility] CLIA [id number] [address] [place] [address] [place] MCHC (RBC) [Mass/Vol] 31.6 g/dL Normal 30.5-36.0 [facility] Comment on above: Order Comment: Speci men Type: TISSUE SPECIMEN Ordering Facility: [facility] Address: [address] [place] [address] Performed By: #### S #### [facility] IA [id number] [address] [place] [address] [place] [facility] CLIA [id number] [address] [place] [address] [place] MCV (RBC) [Entitic vol] 84.4 fL Normal 80.0-100.0 [facility] Comment on above: Order Comment: Speci men Type: TISSUE SPECIMEN Ordering Facility: [facility] Address: [address] [place] [address] Performed By: #### S #### [facility] CLIA [id number] [address] [place] [address] [place] [facility] CLIA [id number] [address] [place] [address] [place] Monocytes (Bld) [#/Vol] 0.92 10*3/uL High <0.87 [facility] Comment on above: Order Comment: Speci men Type: TISSUE SPECIMEN Ordering Facility: [facility] Address: [address] [place] [address] Performed By: #### S #### [facility] CLIA [id number] [address] [place] [address] [place] [facility] CLIA [id number] [address] [place] [address] [place] Monocytes/100 WBC (Bld) 7.6 % Normal [facility] Comment on above: Order Comment: Speci men Type: TISSUE SPECIMEN Ordering Facility: [facility] Address: [address] [place] [address] Performed By: #### S #### [facility] CLIA [id number] [address] [place] [address] [place] [facility] CLIA [id number] [address] [place] [address] [place] Neutrophils (Bld) [#/Vol] 10.69 10*3/uL High 1.45-7.50 [facility] Comment on above: Order Comment: Speci men Type: TISSUE SPECIMEN Ordering Facility: [facility] Address: [address] [place] [address] Performed By: #### S #### [facility] CLIA [id number] [address] [place] [address] [place] [facility] CLIA [id number] [address] [place] [address] [place] Neutrophils/100 WBC (Bld) 88.1 % Normal [facility] Comment on above: Order Comment: Speci men Type: TISSUE SPECIMEN Ordering Facility: [facility] Address: [address] [place] [address] Performed By: #### S #### [facility] CLIA [id number] [address] [place] [address] [place] [facility] CLIA [id number] [address] [place] [address] [place] Nucleated RBC (Bld) [#/Vol] 10*3/uL Normal <0.01 [facility] Comment on above: Order Comment: Speci men Type: TISSUE SPECIMEN Ordering Facility: [facility] Address: [address] [place] [address] Performed By: #### S #### [facility] CLIA [id number] [address] [place] [address] [place] [facility] CLIA [id number] [address] [place] [address] [place] Nucleated RBC/100 WBC (Bld) [Ratio] 0.0 /100 WBC Normal [facility] Comment on above: Order Comment: Speci men Type: TISSUE SPECIMEN Ordering Facility: [facility] Address: [address] [place] [address] Performed By: #### S #### [facility] CLIA [id number] [address] [place] [address] [place] [facility] CLIA [id number] [address] [place] [address] [place] Platelet mean volume (Bld) [Entitic vol] 9.5 fL Normal 9.0-12.7 [facility] Comment on above: Order Comment: Speci men Type: TISSUE SPECIMEN Ordering Facility: [facility] Address: [address] [place] [address] Performed By: #### S #### [facility] CLIA [id number] [address] [place] [address] [place] [facility] CLIA [id number] [address] [place] [address] [place] Platelets (Bld) [#/Vol] 291 10*3/uL Normal 150-400 [facility] Comment on above: Order Comment: Speci men Type: TISSUE SPECIMEN Ordering Facility: [facility] Address: [address] [place] [address] Performed By: #### S #### [facility] CLIA [id number] [address] [place] [address] [place] [facility] CLIA [id number] [address] [place] [address] [place] RBC (Bld) [#/Vol] 2.89 10*6/uL Low 4.20-6.00 [facility] Comment on above: Order Comment: Speci men Type: TISSUE SPECIMEN Ordering Facility: [facility] Address: [address] [place] [address] Performed By: #### S #### [facility] CLIA [id number] [address] [place] [address] [place] [facility] CLIA [id number] [address] [place] [address] [place] WBC (Bld) [#/Vol] 12.13 10*3/uL High 3.70-11.00 [facility] Comment on above: Order Comment: Speci men Type: TISSUE SPECIMEN Ordering Facility: [facility] Address: [address] [place] [address] Performed By: #### S #### [facility] CLIA [id number] [address] [place] [address] [place] [facility] CLIA [id number] [address] [place] [address] [place] CBC panel Auto (Bld)on 05-14 Erythrocyte distribution width (RBC) [Ratio] 15.4 % High 11.5-15.0 [facility] Comment on above: Order Comment: Speci men Type: BLOOD SPECIMENOrdering Facility: [facility] Address: [address] [place] [address] Performed By: #### 5 8410-2 ####[facility] [id number] [address] [place] Hematocrit (Bld) [Volume fraction] 26.3 % Low 39.0-51.0 [facility] Comment on above: Order Comment: Speci men Type: BLOOD SPECIMENOrdering Facility: [facility] Address: [address] [place] [address] Performed By: #### 5 8410-2 ####[facility]ORY[facility] [id number] [place] [address] [place] Hemoglobin (Bld) [Mass/Vol] 8.3 g/dL Low 13.0-17.0 [facility] Comment on above: Order Comment: Speci men Type: BLOOD SPECIMENOrdering Facility: [facility] Address: [address] [place] [address] Performed By: #### 5 8410-2 ####[facility]ORYCLIA [id number] [address] [place] MCH (RBC) [Entitic mass] 26.6 pg Normal 26.0-34.0 [facility] Comment on above: Order Comment: Speci men Type: BLOOD SPECIMENOrdering Facility: [facility] Address: [address] [place] [address] Performed By: #### 5 8410-2 ####[facility] [id number] [address] [place] MCHC (RBC) [Mass/Vol] 31.6 g/dL Normal 30.5-36.0 [facility] Comment on above: Order Comment: Speci men Type: BLOOD SPECIMENOrdering Facility: [facility] Address: [address] [place] [address] Performed By: #### 5 8410-2 ####[facility]ORYCLIA [id number] [place] [address] [place] MCV (RBC) [Entitic vol] 84.3 fL Normal 80.0-100.0 [facility] Comment on above: Order Comment: Speci men Type: BLOOD SPECIMENOrdering Facility: [facility] Address: [address] [place] [address] Performed By: #### 5 8410-2 ####[facility]ATORYCLIA [id number] [place] [id number] [place] Nucleated RBC (Bld) [#/Vol] 10*3/uL Normal <0.01 [facility] Comment on above: Order Comment: Speci men Type: BLOOD SPECIMENOrdering Facility: [facility] Address: [address] [place] [address] Performed By: #### 5 8410-2 ####[facility]ORYCLIA [id number] [address] [place] Platelet mean volume (Bld) [Entitic vol] 9.5 fL Normal 9.0-12.7 [facility] Comment on above: Order Comment: Speci men Type: BLOOD SPECIMENOrdering Facility: [facility] Address: [address] [place] [address] Performed By: #### 5 8410-2 ####[facility]ORYCLIA [id number] [place] [address] [place] Platelets (Bld) [#/Vol] 382 10*3/uL Normal 150-400 [facility] Comment on above: Order Comment: Speci men Type: BLOOD SPECIMENOrdering Facility: [facility] Address: [address] [place] [address] Performed By: #### 5 8410-2 ####[facility]ORYCLIA [id number] [place] [address] [place] RBC (Bld) [#/Vol] 3.12 10*6/uL Low 4.20-6.00 [facility] Comment on above: Order Comment: Speci men Type: BLOOD SPECIMENOrdering Facility: [facility] Address: [address] [place] [address] Performed By: #### 5 8410-2 ####[facility] [id number] [place] [id number] [place] WBC (Bld) [#/Vol] 17.27 10*3/uL High 3.70-11.00 [facility] Comment on above: Order Comment: Speci men Type: BLOOD SPECIMENOrdering Facility: [facility] Address: [address] [place] [address] Performed By: #### 5 8410-2 ####[facility] [id number] [place] [id number] [place] Magnesium SerPl-mCncon 05-14 Magnesium [Mass/Vol] 1.4 mg/dL Low 1.7-2.3 [facility] Comment on above: Order Comment: Speci men Type: BLOOD SPECIMENOrdering Facility: [facility] Address: [address] [place] [address] Performed By: #### 2 4321-2, 28323-5 ####[facility] [id number] [place] [id number] [place] NURSING PROGon 05-14-2024 NURSING PROG HNO ID: [id number] Author: LUI NGO RN Service: Nursing Author Type: Registered Nurse Type: Nursing Progress Note Filed: 05/14/2024 02:19 Note Text: 2131: pt AANDOx3. C/o 3/10 pain to abdomen. Denies nausea at this time. No flatus since surgery. Tolerating ice chips and popsicles. Midline and lap sites GABRIELA with glue. 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 Perez draining keith urine. A-fib on telemetry. Lungs diminished on RA. No needs at this time. Normal [facility] THERAPY NTon 05-14-2024 THERAPY NT HNO ID: [id number] Author: BECCA MONTENEGRO OTR/L Service: Occupational Therapy Author Type: Occupational Therapist Type: Therapy (PT/OT/Speech/Resp) Filed: 05/14/2024 10:52 Note Text: Occupational Therapy Evaluation Summary SERVICE DATE: 05/14/2024 SERVICE TIME: 0835 to 0900 ROOM: [place] [address] OT 6 Clicks Score: 22 Scheduled Surgery For Crohn's Stricture, S/P Laparoscopic Assisted Ileocolic Resection And Anastomosis 05/13/24 DISCHARGE RECOMMENDATIONS Home Pt has adequate support and social structure for reasonably safe discharge home at current level. Anticipated Discharge Needs: Physical Assist at Home Physical Assist at Home for: Cleaning, Laundry, Shopping, Transportation Recommended Discharge Equipment: Hand Held Shower, Long Handled Shoe Horn, Long Handled Sponge, [employer], Sock Aid, Shower Chair, To Be Determined ASSESSMENT Response to Therapy Interventions: Good Participation in Activities, Pain Pt plans to return home with family support PRECAUTIONS Abdominal, Bed/Chair Alarm, Diet Restrictions, Lines/Tubes/Drains, Fall Risk Clear Liquid Diet, Left Drop Foot CURRENT HOSPITAL COURSE Laparoscopic assisted ileocolic resection and anastomosis 05/13/24 Relevant Past Medical History: Crohn's, AF, anemia, HTN, HLD, GERD HOME LIVING Patient Lives With: Significant Other Comments: two level home, bed 2nd level, bath 1st level, stays in recliner much of the time on 1st level Assistance 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 Entry To Home: Stairs, With Rail Number Of Stairs Into Home: 3 Number Of Stairs To Bed/Bath: bedroom upstairs; full bathroom 1st level; often sleeps in recliner on 1st floor Stairs to Bed/Bath with: Unilateral Rail Tub/Shower Type: tub shower Laundry: 1st floor Equipment Owned: Cane, Walker- Wheeled PRIOR FUNCTIONAL LEVEL Within Functional Limits pt independent without device, indep ADL/IADL's; drives, retired Baseline Cognition: Oriented to self, Oriented to place, Oriented to time, Oriented to situation SUBJECTIVE I am OK COGNITION THERAPY DIAGNOSIS Reduced mobility-other, Decreased activities of daily living (ADL), Muscle Weakness (generalized) TREATMENT INTERVENTIONS Evaluation, Self Long Term Management (38877) Timed Code Treatment (minutes): 10 Skilled Treatment Time (minutes): 25 TRAINING AND EDUCATION PROVIDED Activity Adaptation/Fence Installer Helper y Strategies, Adaptive Equipment/DME, Assistive Device Use, Bed Mobility, Benefits of In-Hospital Mobility, Discharge Planning, Disease Specific Education, Energy Conservation, Expected Functional Level, Precautions/Restrictio ns, Role of Occupational Therapy, Positioning, Safety/Judgment, Standing Balance to Improve [place] with ADLs/Self-Care, Transfer - Bed to Chair, Transfer - Sit to Stand, Treatment Protocol Pt educated with role/benefit of OT services, discharge options, fall precautions, walker safety, recommended DME/AE, and provided printed material. Pt completed safe functional transfer from bed to chair with WW for support. Pt instructed with deep breathing techniques while seated at EOB, and educated with energy conservation techniques and pacing self as pertaining to ADL's. Pt educated regarding fall precautions in room, and requested Pt call staff for any assist. Pt verbalized understanding of all precautions. THERAPEUTIC SKILLS USED Activity Dosing, Cues for Sequencing/Proper Technique for Activity, Cuing Tactile, Cuing Verbal, Cuing Visual, Management of Critical Lines, Tubes and/or Drains, Teach-Back for Education, Therapeutic Use of Self FUNCTIONAL STATUS Activities of Daily Living Assist Level Additional Information Feeding Independent Grooming Modified Independent Bathing Upper Body Modified Independent Bathing Lower Body Minimal Assistance Dressing Upper Body Modified Independent Dressing Lower Body Minimal Assistance Toileting Stand By Assistance Mobility Assist Level Additional Information Bed Mobility Supine To Sit: Supervision Sit to Stand Supervision Stand to Sit Supervision Bed to Chair Supervision Bed To Chair Transfer Type: Stepping Bed To Chair Transfer Equipment: Wheeled Walker Toilet/Commode Shower Functional Mobility Supervision Functional Mobility Device: Wheeled Walker GOALS Patient will demonstrate progress with self-care, cognitive and/or coping needs identified to allow safe discharge to home with available support and/or physical assistance. Progress Toward Goals: Progressing as expected Rehab Potential: Good PLAN OT Frequency: One Additional Visit Plan for Next Visit: Bathing Training, Bed Mobility, Chair/Commode Transfer Training, Fall Prevention, Energy Conservation SIGNATURE: LAURA Sosa/Rose PATIENT NAME: Ayo Rodriguez [place] DATE: May 14, 2024 TIME: 10:51 AM Normal [facility] THERAPY NT HNO ID: [id number] Author: ONEYDA EDWARDS, PT Service: Physical Therapy Author Type: Physical Therapist Type: Therapy (PT/OT/Speech/Resp) Filed: 05/14/2024 09:57 Note Text: Physical Therapy Evaluation Summary SERVICE DATE: 05/14/2024 SERVICE TIME: 904 to 930 ROOM: [place] [address] PT 6 Clicks Score: 21 DISCHARGE RECOMMENDATIONS Home Recommended Discharge Equipment: No equipment needs anticipated ASSESSMENT Response to Therapy Interventions: Good Participation in Activities pt mvoes fairly well, using walker in the sotelo with cues for safety, hope to progress to no device; gait slow and steady- remote left foot drop, pt compensates well; educated in log roll and abdominal precautions as related to functional mobility PRECAUTIONS Abdominal, Bed/Chair Alarm, Diet Restrictions, Lines/Tubes/Drains, Fall Risk CURRENT HOSPITAL COURSE Laparoscopic assisted ileocolic resection and anastomosis 05/13/24 Relevant Past Medical History: Crohn's, AF, anemia, HTN, HLD, GERD HOME LIVING Patient Lives With: Significant Other Assistance 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) Entry To Home: Stairs, With Rail Number Of Stairs Into Home: 3 Number Of Stairs To Bed/Bath: bedroom upstairs; full bathroom 1st level; often sleeps in recliner on 1st floor Tub/Shower Type: tub shower Laundry: 1st floor Equipment Owned: Cane, Walker- Wheeled PRIOR FUNCTIONAL LEVEL Within Functional Limits pt independent without device, indep ADL/IADL's; drives, retired SUBJECTIVE pt pleasant and cooperative THERAPY DIAGNOSIS Reduced mobility-other, Muscle Weakness (generalized), General symptoms and signs-other TREATMENT INTERVENTIONS Evaluation, Gait Training (46614) Timed Code Treatment (minutes): 11 Skilled Treatment Time (minutes): 26 TRAINING AND EDUCATION PROVIDED Bed Mobility, Benefits of In-Hospital Mobility, Anatomy and Impact on Deficits, Gait Pattern, Reduction of Deviations, Falls Prevention, Expected Functional Level, Home Safety, Precautions/Restrictio ns, Role of Physical Therapy, Transfers, Standing Balance THERAPEUTIC SKILLS USED Activity Dosing, Cues for Sequencing/Proper Technique for Activity, Physical Assist, Postural Alignment Correction, Management of Critical Lines, Tubes and/or Drains FUNCTIONAL STATUS Bed Mobility Rolling: Stand By Assistance Supine To Sit: Stand By Assistance (cues for log roll) Scooting: Supervision Transfers Sit To Stand: Contact Guard Assistance Stand To Sit: Stand By Assistance Bed to Chair Gait Stand By Assistance Gait Device: Wheeled Walker General Deviations/Observation s: Eduarda decreased, Step length decreased (cues for posture) Gait Distance (feet): 150 Gait Deviations Left Lower Extremity: (increased left hip and knee flexion to compensate for foot drop) Stairs GOALS Patient will demonstrate progress with functional mobility to allow safe discharge to home with available support and/or physical assistance. Rehab Potential: Good Progress Toward Goals: Progressing as expected PLAN PT Frequency: 3 Times Per Week Treatment Interventions: Education, Self Care / Home Management, Strengthening, Functional Mobility Training Plan for Next Visit: Bed Mobility, Gait Training, Standing Tolerance, Sit to Stand Transfers SIGNATURE: Oneyda Edwards PT PATIENT NAME: Ayo Rodriguez [place] DATE: May 14, 2024 TIME: 9:57 AM [facility] ANES POSTPROC EVALon 024 ANES POSTPROC EVAL HNO ID: [id number] Author: ORLANDO TINSLEY MD Service: Anesthesiology Author Type: Anesthesiologist Type: Anesthesia Postprocedure Evaluation Filed: 05/13/2024 12:03 Note Text: POST ANESTHESIA EVALUATION NOTE : 1960 Procedure Summary Date: 05/13/24 Room / Location: [place] [address] / OR Anesthesia Start: 742 Anesthesia Stop: 1041 Procedure: LAPAROSCOPY COLECTOMY, PARTIAL, W/ REMOVAL TERMINAL ILEUM W/ ILEOCOLOSTOMY (Abdomen) Diagnosis: Crohn's disease of both small and large intestine without complication (HCC) (Crohn's disease of both small and large intestine without complication (HCC) [K50.80]) Surgeons: Cuba Haywood MD Responsible Provider: Orlando Tinsley MD Anesthesia Type: general ASA Status: 3 Anesthesia Type: general Airway Type: ETT Last Vitals Vitals Value Taken Time BP 124/69 05/13/24 1200 Temp 36.9 ?C (98.4 ?F) 05/13/24 1036 Pulse 63 05/13/24 1202 Resp 16 05/13/24 1202 SpO2 99 % 05/13/24 1202 Vitals shown include unfiled device data. Post Anesthesia Patient Status Patient Evaluation: PACU. PACU/ICU Patient Condition: stable. Neurological Status: aware and responsive. Pulmonary Status: breathing comfortably on room air Airway Control: returned to baseline unsupported. Cardiovascular Status: stable. Pain Management: clinically adequate Postoperative Hydration: acceptable. Intraoperative Events: no significant anesthesia events Post Operative Nausea/Vomiting Status: no significant post operative nausea or vomiting Recommendation: continue current plan of care. Anesthesia Observations No Documentation SIGNATURE: Orlando Tinsley MD PATIENT NAME: Ayo Rodirguez [place] DATE: May 13, 2024 TIME: 12:03 PM CSN: [id number] [facility] ANES PRE-OPon 05-13-2024 ANES PRE-OP HNO ID: [id number] Author: ORLANDO TINSLEY MD Service: Anesthesiology Author Type: Anesthesiologist Type: Anesthesia Preprocedure Evaluation Filed: 05/13/2024 07:27 Note Text: ANESTHESIOLOGY DAY OF SURGERY NOTE : 1960 Procedure Information Date/Time: 05/13/24729 Procedure: LAPAROSCOPY ENTERECTOMY RESECTION SMALL INTESTINE, SINGLE RESECTION AND ANASTOMOSIS (Abdomen) Location: [facility] / [facility] Surgeons: Cuba Haywood MD Estimated body mass index is 26.68 kg/m? as calculated from the following: Height as of 04/30/24: 172.7 cm (5' 8 ). Weight as of 04/30/24: 79.6 kg (175 lb 7.8 oz). Most recent hematocrit and potassium results: Hematocrit 26.4 04/30/2024 Potassium 4.5 04/30/2024 Relevant Problems No relevant active problems I - PHYSICAL EVALUATION AIRWAY Patient intubated: No. Tracheostomy tube not present Mallampati: II. TM distance: >3 FB. Neck ROM: full ROM without neurological symptoms. Mouth opening: adequate. Short neck: no. Thick neck: no DENTAL Dental findings: teeth intact. Additional exam findings: no II - ANESTHESIA PLAN ASA Score: 3 Anesthetic Plan: general Airway type: ETT The patient is not a current smoker. NPO Status: adequate Beta César Monitoring Plan Monitoring plan: standard ASA. Post Procedure Analgesic Plan Postoperative analgesic plan: multimodal analgesia. Informed Consent Anesthetic risks, benefits, alternatives, personnel and consent discussed: yes. Patient / Responsible Democrat agrees to proceed: yes Patient / Surrogate agrees to blood products: Yes Potential Anesthesia issues that may suggest increased risk of complications or contraindication to planned procedure: none. Vitals Value Taken Time BP 136/65 05/13/2457 Pulse Resp 18 05/13/2457 Temp 36.4 ?C (97.5 ?F) 05/13/24 0657 SpO2 98 % 05/13/24 0657 Facility-Administered Medications as of 05/13/2024 Medication Dose Route Frequency lidocaine (PF) 10 mg/mL (1 %) 1-2 mg injection (XYLOCAINE) 0.1-0.2 mL INTRADERMAL PRN lactated ringers iv infusion 5-30 mL/hr INTRAVENOUS CONTINUOUS NaCl 0.9% iv flush bag 20 mL INTRAVENOUS PRN cefTRIAXone 2 g in D5W 100 mL Vial-Bag (ROCEPHIN) 2 g INTRAVENOUS Pre-Op Once metroNIDAZOLE iv piggyback 500 mg in NaCl (iso-osmotic) 100 mL (FLAGYL) 500 mg INTRAVENOUS Pre-Op Once [COMPLETED] alvimopan 12 mg cap(s) (ENTEREG) 12 mg ORAL Pre-Op Once [COMPLETED] acetaminophen 1,000 mg tab(s) (TYLENOL) 1,000 mg ORAL Pre-Op Once [COMPLETED] gabapentin 300 mg cap(s) (NEURONTIN) 300 mg ORAL Pre-Op Once heparin 5,000 Units injection 5,000 Units SUBCUTANEOUS ONCE Outpatient Medications as of 05/13/2024 Medication Sig apixaban (ELIQUIS) 5 mg tab(s) Take 1 tablet by mouth two times a day. carvedilol (COREG) 25 mg tablet Take 25 mg by mouth two times a day with meals. lisinopril (ZESTRIL) 20 mg tablet Take 20 mg by mouth once daily. pantoprazole DR (PROTONIX) 40 mg tablet Take 40 mg by mouth once daily. metroNIDAZOLE (FLAGYL) 500 mg tablet Take 1 tablet by mouth as directed. Take one tab at 6:00 p.m., another at 7:00 p.m. and the last one at 11:00 p.m., prior to surgery neomycin 500 mg tablet Take 2 tablets by mouth as directed. Take two tabs at 6:00 p.m., 7:00 p.m. and 11:00 p.m., prior to surgery atorvastatin (LIPITOR) 80 mg tablet atorvastatin 80 mg tablet TAKE 1 TABLET BY MOUTH DAILY sildenafil (VIAGRA) 100 mg tablet I have interviewed and examined the patient. I have reviewed the medical record and/or the pre-anesthesia evaluation, pertinent labs, and test results. This contains updated information obtained within 48 hours of Surgery/Procedure. SIGNATURE: Orlando Tinsley MD PATIENT NAME: Ayo Rodriguez Withem DATE: May 13, 2024 TIME: 7:27 AM CSN: [id number] [facility] BRIEF OP NOTon 05-13-2024 BRIEF OP NOT HNO ID: [id number] Author: JOSE J JOHNS MD Service: Colorectal Author Type: Resident Type: Brief Op Note Filed: 05/13/2024 10:56 Note Text: [facility] BRIEF OP NOTE LOG ID: [id number] SURGERY/PROCEDURE DATE: 05/13/2024 INCISION/PROCEDURE START TIME: 8:27 AM INCISION CLOSE/PROCEDURE END TIME: 10:28 AM SURGEON(S)/PROCEDURALI ST(S) AND UPPER CUTTER(S): Surgeons and Role: * Cuba Haywood MD - Primary * Jose J Johns MD - Resident - Assisting No Additional Staff SURGERY/PROCEDURE(S): Laparoscopic assisted ileocolic resection and anastomosis ANESTHESIA: General FINDINGS: Retained capsule endoscopy pill at distal ileum. Lateral dissection of colon adhesions laparoscopically. Through midline incision, Ileocolic resection was performed. Friable thick mesentery with bleeding at ileocolic junction controlled. Received 2 units PRBC intraoperatively ESTIMATED BLOOD LOSS: 1 Liter SPECIMENS: ID Type Source Tests Collected by Time Destination A : terminal ileum AND CECUM Tissue Small Bowel, Terminal Ileum, Resection SURGICAL PATHOLOGY Cuba Haywood MD 05/13/2024 9:36 AM COMPLICATIONS: None PRE-OP/PRE-PROCEDURE DIAGNOSIS: Crohn's stricture POST-OP/POST-PROCEDURE DIAGNOSIS: Same as Preop SIGNATURE: Jose J Johns MD PATIENT NAME: Ayo Alicia DATE: May 13, 2024 TIME: 10:49 AM PAGER/CONTACT #: [facility] NURSING PROGon 05-13-2024 NURSING PROG HNO ID: [id number] Author: RENEE CAICEDO RN Service: ? Author Type: Registered Nurse Type: Nursing Progress Note Filed: 05/13/2024 13:40 Note Text: Transfer Note: PATIENT NAME: Ayo Alicia Patient Location: [place] [address]/AB3O-[id number] Room: [place] [address] Patient transferred into room/unit PK314 in stable condition. Actions taken: No futher actions taken at this time. Will continue to monitor and check with patient. [facility] NURSING PROG HNO ID: [id number] Author: DAMARI DAY RN Service: Nursing Author Type: Registered Nurse Type: Nursing Progress Note Filed: 05/13/2024 13:35 Note Text: Transfer Note: PATIENT NAME: Ayo Alicia Patient Location: [place] [address]/CP7F-94 Room: [place] [address] Patient transferred into room/unit [facility] room 314 in stable condition. Actions taken: No futher actions taken at this time. Will continue to monitor and check with patient. [facility] OPERATIVE NOon 05-13-2024 OPERATIVE NO HNO ID: [id number] Author: CUBA HAYWOOD MD Service: Colorectal Author Type: Physician Type: Operative Report Filed: 05/15/2024 18:24 Note Text: COLON AND RECTAL SURGERY OPERATIVE REPORT PATIENT NAME: Ayo Alicia ADMISSION DATE: 05/13/2024 LOG ID: [id number] SURGERY/PROCEDURE DATE: 05/13/2024 INCISION/PROCEDURE START TIME: 8:27 AM INCISION CLOSE/PROCEDURE END TIME: 10:28 AM AGE: [age] year old SEX: male SURGEON(S)/PROCEDURALI ST(S) AND UPPER CUTTER(S): Surgeons and Role: * Cuba Haywood MD - Primary * Jose J Johns MD - Resident - Assisting No Additional Staff ANESTHESIA: General PREOPERATIVE DIAGNOSIS (ES): Crohn's disease, retained endoscopy capsule POSTOPERATIVE DIAGNOSIS (ES): Crohn's disease, retained endoscopy capsule NAME OF OPERATION: Laparoscopic Ileocolic Resection (Partial Colectomy) INDICATIONS FOR PROCEDURE: Crohn's disease, retained endoscopy capsule OPERATIVE FINDINGS: Extremely thickened friable ileal mesentery, normal colon, capsule found stuck in distal ileum prior to stricture DESCRIPTION OF PROCEDURE: The patient was brought to the operating room and placed under general anesthesia in supine position. The abdomen was prepped and draped in normal sterile fashion. The patient received appropriate preop antibiotics and DVT prophylaxis. A surgical time-out was performed. The abdomen was entered using open insertion technique at the umbilicus. The 10 mm Llamas trocar was placed through this, and the abdomen was insufflated to 15 mmHg. 5 mm trocars were placed in the left upper quadrant, and left mid abdomen under direct visualization. The abdomen was inspected and the terminal ileum was noted to be extremely thickened with friable mesentery. This was too thick to dissect through, so decision was made to mobilize laterally and take the mesentery after extracorporealizing the specimen. The lateral attachments of the white line of Toldt were taken. The cecum was grasped and the grasper was locked. The umbilical port was then removed and the periumbilical incision was extended around the umbilicus and a wound retractor was placed within this incision. The specimen was then delivered out through the incision and oriented. The mesentery was divided to the terminal ileum and the ascending colon with a combination of Ligasure and 3-0 Prolene sutures. The mesentery was extremely friable and thickened, resulting in significant blood loss requiring two units or pRBC transfusion. The ileocolic pedicle was ligated. The ileum just proximal to the long stricture with capsule and the ascending colon were divided with JETHRO-80 purple stapler. A [id number] functional end-to-end anastomosis was created using a JETHRO 80 purple stapler. The common channel staple line was inspected and there was no evidence of bleeding. The resultant enterotomy was closed and specimen divided with a JETHRO 80 purple reload. A 3-0 Vicryl suture was placed at the crotch of the anastomosis. The transverse staple line was oversewn with a 3-0 PDS. The anastomosis was inspected and seen to be healthy, widely patent, and intact. We reduced it back into the abdomen. The fascia was then closed with running #1 PDS suture. The wound was irrigated and the skin was closed with 4-0 Monocryl sutures. ESTIMATED BLOOD LOSS: 1000 cc SPECIMENS: Small bowel and cecum DRAINS: None COMPLICATIONS: None INTRAOPERATIVE FLUIDS: See anesthesia record. SPONGE/INSTRUMENT/NEED LE COUNTS: Correct x2. PRESENCE STATEMENT: I was present for the entire procedure as I have dictated above. Cuba Haywood M.D. Department of Surgery Division of Colon and Rectal Surgery [facility] PT EDon 05-13-2024 PT ED HNO ID: [id number] Author: BECCA OZUNA RN Service: ? Author Type: Registered Nurse Type: Patient Education Filed: 05/13/2024 07:06 Note Text: PATIENT EDUCATION TOPIC: PROCEDURE / SURGERY: Pre-op Teaching: Logistics Protocols Complication Prevention PATIENT NAME: Ayo PATIENT LOCATION: [facility] OR POOL/[facility] OR POOL READINESS TO LEARN COGNITIVE ABILITY: Alert and oriented MOTIVATION TO LEARN: Interested FAMILY SUPPORT: Unable to assess - Family not present INSTRUCTION PROVIDED TO: Patient PATIENT LEARNS BEST BY: Individual Instruction Verbal Instruction FACTORS AFFECTING LEARNING: None PHYSICAL LIMITATIONS AFFECTING LEARNING: None LEARNING RESPONSE DIAGNOSIS: ADULT: PATIENT/FAMILY RESPONSE: Verbalizes understanding of: PRE-OPERATIVE INSTRUCTIONS-Correct action to take to follow pre-operative instructions METHOD OF INSTRUCTION: Individual instruction Verbal instruction FOLLOW-UP PLAN: Complete - No need for follow-up INSTRUCTIONAL AIDS USED: NA SUPPLEMENTAL MATERIAL PROVIDED TO PATIENT: None REFERRAL (RECOMMENDATION): None Electronically Signed By: Becca Ozuna [facility] SURGICAL PATHOLOGYon 024 ADDENDUM 1: [facility] Comment on above: Order Comment: Speci men Type: TISSUE SPECIMEN Ordering Facility: [facility] Address: [address] [place] [address] Result Comment: A CD 10 immunostain was inadvertently omitted from the final report. The result is negative in the lymphoid infiltrate. There is no change to the final diagnosis. Addendum electronically signed by Neda Clarke DO on 06/09/2024 at 3:03 PM Performed By: #### S #### [facility] CLIA [id number] [address] [place] [address] LAB CLIA [id number] [address] [place] [address] OF [facility] CASE REPORT [facility] Comment on above: Order Comment: Speci men Type: TISSUE SPECIMEN Ordering Facility: [facility] Address: [address] [place] [address] Result Comment: Surg [facility] Pathology Report Case: [id number] Authorizing Provider: Cuba Haywood MD Collected: 05/13/2024 09:36 AM Ordering Location: [facility] Received: 05/13/2024 10:04 AM Operating Room Pathologist: Beto Mosley MD Specimen: Small Bowel, Terminal Ileum, Resection, terminal ileum AND CECUM Performed By: #### S #### [facility] CLIA [id number] [address] [place] [address] LAB CLIA [id number] [address] [place] [address] CLINICAL HISTORY [facility] Comment on above: Order Comment: Speci men Type: TISSUE SPECIMEN Ordering Facility: [facility] Address: [address] [place] [address] Result Comment: Pre- op diagnosis: Crohn's disease of both small and large intestine without complication (HCC) [K50.80] Performed By: #### S #### [facility] CLIA [id number] STATES [place] [facility] LAB CLIA [id number] [address] [facility] DES[id number] DIAGNOSIS COMMENT [facility] Comment on above: Order Comment: Speci men Type: TISSUE SPECIMEN Ordering Facility: [facility] Address: [address] [place] [address] Result Comment: The histologic findings in the small bowel raise the possibility of diaphragm disease (chronic NSAID-associated injury) or cryptogenic multifocal ulcerating stenosing enteritis ( CMUSE ). Specific histologic features of Crohn's disease such as granulomas or transmural lymphoid aggregates are not identified. No fistula tracts are seen. There is no evidence of dysplasia or malignancy. Selected sections of lymph nodes (one section in block A16, one section in block A17) show partially effaced lymph node architecture by a proliferation of small monotonous lymphocytes with extension beyond the lymph node capsule. Immunohistochemistry performed on block A16 shows increased numbers of small CD3 positive T cells relative to CD20 positive B cells. The T cells are positive for BCL-2 and demonstrate a slightly elevated CD4:CD8 ratio without loss of CD2, CD5, or CD7. CD21 highlights a few residual RESIDENTIAL meshworks. CD20 stains fewer small B cells. CD8 stains background T cells. CD30 and ALK1 are negative. A small subset of T cells is positive for TIA1 and granzyme B. TCL1A is confined to the B cells. There is no significant PD-1, BCL6, ICOS, or CXCL13 staining. TdT is entirely negative. LY in situ hybridization is negative. The Ki-67 proliferative index is very low, less than 5%. The history of treatment with adalimumab is noted. The T-cell immunophenotype is normal. This could represent a skewed T-cell proliferation in the setting of immune therapy. PCR studies are negative for a clonal TR gene rearrangement. In summary, there is no evidence of lymphoma. This portion of the case is reviewed by Dr. Clarke from the section of Hematopathology. Laboratory Developed Test (LDT) Disclaimer: Performance characteristics of immunohistochemical, immunofluorescent and chromogenic in-situ hybridization tests have been determined by the performing laboratory within [facility]???[facility] Pathology and Laboratory Medicine Department ([facility], [facility], [facility], [facility], [facility], [facility], or [facility]) in a manner consistent with CLIA requirements. One or more of these tests have not been cleared or approved by the FDA. [facility] is regulated under CLIA as qualified to perform high-complexity testing. These tests are used for clinical purposes. They should not be regarded as investigational or for research. Positive and negative controls stain appropriately. Performed By: #### S #### [facility] CLIA [id number] [address] [place] [address] OF [facility] CLIA [id number] [address] [place] [address] FINAL DIAGNOSIS [facility] Comment on above: Order Comment: Speci men Type: TISSUE SPECIMEN Ordering Facility: [facility] Address: [address] [place] [address] Result Comment: Term inal ileum, cecum, and appendix, ileocecectomy: - Segment of small bowel with multiple strictures, patchy chronic active enteritis, ulcers, pyloric gland metaplasia, and inflammatory-type polyps. - Retained endoscopy capsule. - Appendix with fibrolipomatous obliteration. - Cecum with no diagnostic abnormality. - Benign lymph nodes with paracortical hyperplasia. - See comment. JERose 05/17/2024 Performed By: #### S #### [facility] CLIA [id number] [address] [place] [address] STATES OF [facility] CLIA [id number] [address] [place] [address] FINAL PERFORMING LAB [facility] Comment on above: Order Comment: Speci men Type: TISSUE SPECIMEN Ordering Facility: [facility] Address: [address] [place] [address] Result Comment: Diag nostic interpretation performed at [facility], [address] [place] [id number] CLIA# [id number] Detailer: Bette Mcmillan M.D. Performed By: #### S #### [facility] CLIA [id number] [address] [place] [id number] [place] [facility] LAB CLIA [id number] [address] [facility] DESK [id number] STATES [place] GROSS DESCRIPTION Normal [facility] Comment on above: Order Comment: Speci men Type: TISSUE SPECIMEN Ordering Facility: [facility] Address: [address] [place] [address] Result Comment: A. S mall Bowel, Terminal Ileum, Resection Received in formalin designated terminal ileum and cecum is a specimen consisting of a segment of small bowel (59.8 cm and ranges in circumference from 2 to 4.1 cm), portion of colon (5.5 cm in length by 9.5 cm in circumference), and appendix (4.8 cm in length by 0.5 cm in diameter). The proximal margin is inked blue, and the distal margin is inked orange. Within the lumen of the small bowel is an endoscopic camera measuring 2.4 x 1 x 1 cm. The camera has crusted material surrounding it and has inscribed PillCam SB 3 . Six strictures are identified within the small bowel. The first stricture is located 2.6 cm from the proximal margin, extends for a length of 0.5 cm and measures 3.1 cm in circumference. The second stricture is located 9.5 cm from the proximal margin, extends for a length of 1.7 cm, and measures 3 cm in circumference. The third stricture is located 20.5 cm from the proximal margin, extends for a length of 0.7 cm, and measures 2 cm in circumference. The fourth stricture is located 23.6 cm from the proximal margin, extends for a length of 12 cm, and measures 2.4 cm in circumference. The fifth stricture is located 44 cm from the proximal margin, extends for a length of 1.8 cm, and measures 2.6 cm in circumference. The sixth stricture is located 55 cm from the proximal margin, extends for a length of 1.5 cm, and measures 2.2 cm in circumference. At the ileocecal valve the circumference is 2.6 cm. The mucosal surface is alicea-pink and granular with flattened mucosal ridges and diffuse areas of pseudopolyp formation. Located 21.5 cm from the proximal margin and distal to the third stricture is a cobblestone area which measures 1.1 x 1.1 x 0.2 cm and surrounds an outpouched segment of bowel. The wall averages 0.3 cm in thickness and measures up to 0.5 cm at the areas of stricture. The wall of the bowel does not lie flat at the areas of stricture. The serosal surface is alicea-pink and smooth with creeping fat. No definitive ulcerations or fistula tracts are grossly appreciated. The mucosal surface of the colon is alicea-pink and smooth with normal mucosal ridges. The wall averages 0.2 cm in thickness. The serosal surface of the appendix is alicea-pink and smooth. Sectioning of the appendix reveals a pinpoint lumen devoid of fecalith, purulent material, or stones. The wall averages 0.1 cm in thickness, and no lesions or perforations are grossly appreciated. Sectioning of the attached soft tissue reveals multiple alicea-pink lymph nodes measuring up to 1 cm in greatest dimension. Manufacturing Quality Technician sections are submitted as follows: A1 perpendicular proximal and distal margins, A2 first stricture, A3 second stricture, A4 third stricture, A5 fourth stricture, transition from normal to stricture, A6 fourth stricture at 25 cm, A7 fourth stricture at 30 cm, A8 fourth stricture, transition from stricture to normal, A9 fifth stricture, A10 sixth stricture, A11-A12 cobbblestone area with outpouched bowel totally submitted, A13 ileocecal valve, A14 cecal pouch, A15 appendix, A16 lymph nodes. BF May 13, 2024 11:35 AM Gross examination performed at [facility], [address] [place] [address] CLIA # [id number] Additional sections are submitted as follows: A17 four intact lymph nodes, A18 four intact lymph nodes. WE May 20, 2024 7:50 AM Gross examination performed at [facility], [address] [place] [address] Performed By: #### S #### [facility] CLIA [id number] [place] [address] LAB CLIA [id number] [address] [facility] [place] [address] [place] T-CELL CLONALITY BIOMED2 [facility] Katerina 05-13-2024 T-CELL CLONALITY BIOMED2 OTHER Normal [facility] Comment on above: Order Comment: Speci men Type: TISSUE SPECIMEN Ordering Facility: [facility] Address: [address] [place] [address] Result Comment: [facility] Laboratory Accession Number: [id number] Case #: [id number] Block #: A16 Sample Description: Terminal Ileum And Cecum Sample Type: FFPET DNA Quality: GOOD (>=300 bp) Results: TCRB A (V-J1+J2): Non-clonal TCRB B (V-J2): Non-clonal TCRB C (D-J1+J2): Non-clonal TCRG D: Non-clonal Interpretation: A clonal rearrangement is NOT DETECTED (See comment). Comment: A clonal rearrangement was not detected by PCR using primer sets targeting the T-cell receptor beta (TCRB) or gamma (TCRG) chain loci. A negative result does not completely exclude the possibility of a monoclonal T-cell population. Methodology: DNA is isolated from the specimen provided and subjected to PCR amplification using a fluorescently labeled primers targeting the T-cell receptor beta (TCRB) and gamma (TCRG) chain loci ([employer], [place], [place]). Fluorescently labeled PCR products were analyzed by capillary gel electrophoresis. An additional PCR reaction directed at housekeeping genes was performed as a control for each sample to ensure adequate DNA quality. Limitations: 1) PCR may not detect all clonal rearrangements detectable by Southern blot analysis. 2) The sensitivity of the assay is affected by the intensity of the polyclonal background. The assay detects a clonal population of approximately 5% in a background of tonsil DNA. 3) Monoclonality is not equivalent to malignancy. Results of this test should be interpreted in the context of the clinical, histological, flow cytometric, and/or immunophenotypic information. 4) Detection of monoclonality with this assay usually indicates a monoclonal T-cell population; however, lineage assignment is not entirely reliable since some B-cell lymphomas and acute myeloid leukemias may have rearranged TCR genes. Disclaimer: This test was developed and its performance characteristics determined by [facility]'s Pathology and Laboratory Medicine Department. It has not been cleared or approved by the FDA. [facility] Department is regulated under CLIA as certified to perform high-complexity testing. This test is used for clinical purposes. It should not be regarded as investigational or for research. Testing and interpretation performed at [facility], [address] [place] [address]. CLIA Number: [id number] As reviewed by Neda Clarke MD Performed By: #### S #### [facility] CLIA [id number] [place] [address] [place] [facility] CLIA [id number] [address] [place] [address] Curtis 05-04-2024 CNPN Telephone (EDMOND) AYO ALICIA ([id number]) 1960 M Date Time Provider Department 05/04/24 DOLLY NELSON During your visit today, we recorded the following information about you: Dolly Nelson APRN.JOVANA 05/04/2024 12:44 PM Signed I saw this patient for pre-anesthesia on 04/30. He has Chronic anemia his Hemoglobin came back at 7.7. I was able to look in care everywhere and his last Hemoglobin was 04/06/2024 and it came back at 8.3. He does not follow with hematology. He only follows with PCP. He said this has been an ongoing issue and he did have an iron infusion about a year ago. He is asymptomatic. At this time I do not think there would be enough time for an iron infusion. I will CC blood Management to get their input. Unsure what your parameters would be in order to proceed. A type and screen has been completed. Would you like to postpone and have him get a series of infusions first or do you feel it is okay to proceed? 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 Just wanted to send an FYI. TANDS completed. If there are any issues with him continuing the ASA or anything else needed from my end please let me know. Thanks, Dolly Nelson APRN.Erna Bach LPN 05/07/2024 10:22 AM Signed Spoke with patient via phone call. Aware of anticoag instructions. No questions/concerns voiced. Erna Montoya LPN Allergies As of Date: 05/04/2024 (No Known Allergies) Date Reviewed: 04/30/2024 Reviewed by: Dolly Nelson APRN.JOVANA - Fully Assessed Reason for Visit: Anesthesia Consult [6467] Prescriptions as of 05/07/2024 - acetaminophen (TYLENOL) 325 mg tablet Take 650 mg by mouth every 6 hours as needed. - adalimumab (HUMIRA,CF, PEN [id number]) 80 mg/0.8 mL pen kit Inject 80 mg subcutaneously every 2 weeks. - apixaban (ELIQUIS) 5 mg tab(s) Take 1 tablet by mouth two times a day. - carvedilol (COREG) 25 mg tablet Take 25 mg by mouth two times a day with meals. - lisinopril (ZESTRIL) 20 mg tablet Take 20 mg by mouth once daily. - pantoprazole DR (PROTONIX) 40 mg tablet Take 40 mg by mouth once daily. - metroNIDAZOLE (FLAGYL) 500 mg tablet Take 1 tablet by mouth as directed. Take one tab at 6:00 p.m., another at 7:00 p.m. and the last one at 11:00 p.m., prior to surgery - neomycin 500 mg tablet Take 2 tablets by mouth as directed. Take two tabs at 6:00 p.m., 7:00 p.m. and 11:00 p.m., prior to surgery - aspirin 81 mg cap Take 81 mg by mouth once daily. - atorvastatin (LIPITOR) 80 mg tablet atorvastatin 80 mg tablet TAKE 1 TABLET BY MOUTH DAILY - sildenafil (VIAGRA) 100 mg tablet Problem List As Of Date 05/04/2024 Noted Resolved Peyronie's disease [N48.6] 02/12/2021 ED (erectile dysfunction) of organic origin [N5*02/12/2021 Anemia [D64.9] 04/30/2024 Atrial fibrillation (HCC) [I48.91] 04/30/2024 Atherosclerosis of coronary artery [I25.10] 04/30/2024 Crohn's disease (HCC) [K50.90] 07/04/2022 Hyperlipidemia [E78.5] 04/30/2024 Essential hypertension [I10] 02/12/2021 GERD (gastroesophageal reflux disease) [K21.9] Encounter Status:Closed by ERNA MONTOYA on 05/07/24 Normal [facility] CBC W Auto Differential pane l (Bld)on 04-30-2024 Basophils (Bld) [#/Vol] 0.04 10*3/uL Normal <0.11 [facility] Comment on above: Order Comment: Speci men Type: BLOOD SPECIMEN Ordering Facility: [facility] Address: [address] [place] [address] Performed By: #### 5 7021-8 #### [facility] CLIA [id number] [address] [place] [address] [place] Basophils/100 WBC (Bld) 0.7 % Normal [facility] Comment on above: Order Comment: Speci men Type: BLOOD SPECIMEN Ordering Facility: [facility] Address: [address] [place] [address] Performed By: #### 5 7021-8 #### [facility] CLIA [id number] [address] [place] [address] [place] Differential cell count method Nom (Bld) Auto Normal [facility] Comment on above: Order Comment: Speci men Type: BLOOD SPECIMEN Ordering Facility: [facility] Address: [address] [place] [address] Performed By: #### 5 7021-8 #### [facility] CLIA [id number] [address] [place] [address] [place] Eosinophils (Bld) [#/Vol] 0.21 10*3/uL Normal <0.46 [facility] Comment on above: Order Comment: Speci men Type: BLOOD SPECIMEN Ordering Facility: [facility] Address: [address] [place] [address] Performed By: #### 5 7021-8 #### [facility] CLIA [id number] [address] [place] [address] [place] Eosinophils/100 WBC (Bld) 3.6 % Normal [facility] Comment on above: Order Comment: Speci men Type: BLOOD SPECIMEN Ordering Facility: [facility] Address: [address] [place] [address] Performed By: #### 5 7021-8 #### [facility] CLIA [id number] [address] [place] [address] [place] Erythrocyte distribution width (RBC) [Ratio] 15.2 % High 11.5-15.0 [facility] Comment on above: Order Comment: Speci men Type: BLOOD SPECIMEN Ordering Facility: [facility] Address: [address] [place] [address] Performed By: #### 5 7021-8 #### [facility] CLIA [id number] [address] [place] [address] [place] Hematocrit (Bld) [Volume fraction] 26.4 % Low 39.0-51.0 [facility] Comment on above: Order Comment: Speci men Type: BLOOD SPECIMEN Ordering Facility: [facility] Address: [address] [place] [address] Performed By: #### 5 7021-8 #### [facility] CLIA [id number] [address] [place] [address] [place] Hemoglobin (Bld) [Mass/Vol] 7.7 g/dL Low 13.0-17.0 [facility] Comment on above: Order Comment: Speci men Type: BLOOD SPECIMEN Ordering Facility: [facility] Address: [address] [place] [address] Performed By: #### 5 7021-8 #### [facility] CLIA [id number] [address] [place] [address] [place] Immature granulocytes (Bld) [#/Vol] 0.03 10*3/uL Normal <0.10 [facility] Comment on above: Order Comment: Speci men Type: BLOOD SPECIMEN Ordering Facility: [facility] Address: [address] [place] [address] Performed By: #### 5 7021-8 #### [facility] CLIA [id number] [address] [place] [address] [place] Immature granulocytes/100 WBC (Bld) 0.5 % Normal [facility] Comment on above: Order Comment: Speci men Type: BLOOD SPECIMEN Ordering Facility: [facility] Address: [address] [place] [address] Performed By: #### 5 7021-8 #### [facility] CLIA [id number] [address] [place] [address] [place] Lymphocytes (Bld) [#/Vol] 1.32 10*3/uL Normal 1.00-4.00 [facility] Comment on above: Order Comment: Speci men Type: BLOOD SPECIMEN Ordering Facility: [facility] Address: [address] [place] [address] Performed By: #### 5 7021-8 #### [facility] CLIA [id number] [address] [place] [address] [place] Lymphocytes/100 WBC (Bld) 22.5 % Normal [facility] Comment on above: Order Comment: Speci men Type: BLOOD SPECIMEN Ordering Facility: [facility] Address: [address] [place] [address] Performed By: #### 5 7021-8 #### [facility] CLIA [id number] [address] [place] [address] [place] MCH (RBC) [Entitic mass] 25.3 pg Low 26.0-34.0 [facility] Comment on above: Order Comment: Speci men Type: BLOOD SPECIMEN Ordering Facility: [facility] Address: [address] [place] [address] Performed By: #### 5 7021-8 #### [facility] CLIA [id number] [address] [place] [address] [place] MCHC (RBC) [Mass/Vol] 29.2 g/dL Low 30.5-36.0 [facility] Comment on above: Order Comment: Speci men Type: BLOOD SPECIMEN Ordering Facility: [facility] Address: [address] [place] [address] Performed By: #### 5 7021-8 #### [facility] CLIA [id number] [address] [place] [address] [place] MCV (RBC) [Entitic vol] 86.8 fL Normal 80.0-100.0 [facility] Comment on above: Order Comment: Speci men Type: BLOOD SPECIMEN Ordering Facility: [facility] Address: [address] [place] [address] Performed By: #### 5 7021-8 #### [facility] CLIA [id number] [address] [place] [address] [place] Monocytes (Bld) [#/Vol] 0.62 10*3/uL Normal <0.87 [facility] Comment on above: Order Comment: Speci men Type: BLOOD SPECIMEN Ordering Facility: [facility] Address: [address] [place] [address] Performed By: #### 5 7021-8 #### [facility] CLIA [id number] [address] [place] [address] [place] Monocytes/100 WBC (Bld) 10.6 % Normal [facility] Comment on above: Order Comment: Speci men Type: BLOOD SPECIMEN Ordering Facility: [facility] Address: [address] [place] [address] Performed By: #### 5 7021-8 #### [facility] CLIA [id number] [address] [place] [address] [place] Neutrophils (Bld) [#/Vol] 3.64 10*3/uL Normal 1.45-7.50 [facility] Comment on above: Order Comment: Speci men Type: BLOOD SPECIMEN Ordering Facility: [facility] Address: [address] [place] [address] Performed By: #### 5 7021-8 #### [facility] CLIA [id number] [address] [place] [address] [place] Neutrophils/100 WBC (Bld) 62.1 % Normal [facility] Comment on above: Order Comment: Speci men Type: BLOOD SPECIMEN Ordering Facility: [facility] Address: [address] [place] [address] Performed By: #### 5 7021-8 #### [facility] CLIA [id number] [address] [place] [address] [place] Nucleated RBC (Bld) [#/Vol] 10*3/uL Normal <0.01 [facility] Comment on above: Order Comment: Speci men Type: BLOOD SPECIMEN Ordering Facility: [facility] Address: [address] [place] [address] Performed By: #### 5 7021-8 #### [facility] CLIA [id number] [address] [place] [address] [place] Nucleated RBC/100 WBC (Bld) [Ratio] 0.0 /100 WBC Normal [facility] Comment on above: Order Comment: Speci men Type: BLOOD SPECIMEN Ordering Facility: [facility] Address: [address] [place] [address] Performed By: #### 5 7021-8 #### [facility] CLIA [id number] [address] [place] [address] [place] Platelet mean volume (Bld) [Entitic vol] 10.1 fL Normal 9.0-12.7 [facility] Comment on above: Order Comment: Speci men Type: BLOOD SPECIMEN Ordering Facility: [facility] Address: [address] [place] [address] Performed By: #### 5 7021-8 #### [facility] CLIA [id number] [address] [place], [place] [address] [place] Platelets (Bld) [#/Vol] 300 10*3/uL Normal 150-400 [facility] Comment on above: Order Comment: Speci men Type: BLOOD SPECIMEN Ordering Facility: [facility] Address: [address] [place] [address] Performed By: #### 5 7021-8 #### [facility] CLIA [id number] [address] [place] [address] [place] RBC (Bld) [#/Vol] 3.04 10*6/uL Low 4.20-6.00 [facility] Comment on above: Order Comment: Speci men Type: BLOOD SPECIMEN Ordering Facility: [facility] Address: [address] [place] [address] Performed By: #### 5 7021-8 #### [facility] CLIA [id number] [address] [place] [address] [place] WBC (Bld) [#/Vol] 5.86 10*3/uL Normal 3.70-11.00 [facility] Comment on above: Order Comment: Speci men Type: BLOOD SPECIMEN Ordering Facility: [facility] Address: [address] [place] [address] Performed By: #### 5 7021-8 #### [facility] CLIA [id number] [address] [place], [place] [address] [place] CONFIRM BLOOD TYPEon 024 ABO A Normal [facility] Comment on above: Order Comment: Speci men Type: BLOOD SPECIMEN Ordering Facility: [facility] Address: [address] [place] [address] Performed By: #### C ONABO #### [facility] CLIA [id number] [address] [place] [address] [place] Rh Nom (Bld) Positive Normal [facility] Comment on above: Order Comment: Speci men Type: BLOOD SPECIMEN Ordering Facility: [facility] Address: [address] [place] [address] Performed By: #### C ONABO #### [facility] CLIA [id number] [address] [place] [address] [place] Comprehensive metabolic 2000 panelon 04-30-2024 Albumin [Mass/Vol] 3.6 g/dL Low 3.9-4.9 [facility] Comment on above: Order Comment: Speci men Type: BLOOD SPECIMEN Ordering Facility: [facility] Address: [address] [place] [address] Performed By: #### 2 4323-8 #### [facility] CLIA [id number] [address] [place] [address] [place] ALP [Catalytic activity/Vol] 59 U/L Normal 38-113 [facility] Comment on above: Order Comment: Speci men Type: BLOOD SPECIMEN Ordering Facility: [facility] Address: [address] [place] [address] Performed By: #### 2 4323-8 #### [facility] CLIA [id number] [address] [place] [address] [place] ALT [Catalytic activity/Vol] 8 U/L Low 10-54 [facility] Comment on above: Order Comment: Speci men Type: BLOOD SPECIMEN Ordering Facility: [facility] Address: [address] [place] [address] Performed By: #### 2 4323-8 #### [facility] CLIA [id number] [address] [place] [address] [place] Anion gap [Moles/Vol] 9 mmol/L Normal 8-15 [facility] Comment on above: Order Comment: Speci men Type: BLOOD SPECIMEN Ordering Facility: [facility] Address: [address] [place] [address] Performed By: #### 2 4323-8 #### [facility] CLIA [id number] [address] [place] [address] [place] AST [Catalytic activity/Vol] 16 U/L Normal 14-40 [facility] Comment on above: Order Comment: Speci men Type: BLOOD SPECIMEN Ordering Facility: [facility] Address: [address] [place] [address] Performed By: #### 2 4323-8 #### [facility] CLIA [id number] [address] [place] [address] [place] Bilirubin [Mass/Vol] 0.5 mg/dL Normal 0.2-1.3 [facility] Comment on above: Order Comment: Speci men Type: BLOOD SPECIMEN Ordering Facility: [facility] Address: [address] [place] [address] Performed By: #### 2 4323-8 #### [facility] CLIA [id number] [address] [place] [address] [place] Calcium [Mass/Vol] 8.3 mg/dL Low 8.5-10.2 [facility] Comment on above: Order Comment: Speci men Type: BLOOD SPECIMEN Ordering Facility: [facility] Address: [address] [place] [address] Performed By: #### 2 4323-8 #### [facility] CLIA [id number] [address] [place] [address] [place] Chloride [Moles/Vol] 106 mmol/L Normal 98-107 [facility] Comment on above: Order Comment: Speci men Type: BLOOD SPECIMEN Ordering Facility: [facility] Address: [address] [place] [address] Performed By: #### 2 4323-8 #### [facility] CLIA [id number] [address] [place] [address] [place] CO2 [Moles/Vol] 25 mmol/L Normal 22-30 [facility] Comment on above: Order Comment: Speci men Type: BLOOD SPECIMEN Ordering Facility: [facility] Address: [address] [place] [address] Performed By: #### 2 4323-8 #### [facility] CLIA [id number] [address] [place] [address] [place] Creatinine [Mass/Vol] 0.87 mg/dL Normal 0.73-1.22 [facility] Comment on above: Order Comment: Speci men Type: BLOOD SPECIMEN Ordering Facility: [facility] Address: [address] [place] [address] Performed By: #### 2 4323-8 #### [facility] CLIA [id number] [address] [place] [address] [place] Creatinine and Glomerular filtration rate.predicted panel (S/P/Bld) 96 mL/min/1.73m??? Normal >=60 [facility] Comment on above: Order Comment: Speci men Type: BLOOD SPECIMEN Ordering Facility: [facility] Address: [address] [place] [address] Result Comment: Phyllis mated Glomerular Filtration Rate (eGFR) is calculated using the 2020 CKD-EPI creatinine equation. This equation utilizes serum creatinine, sex, and age as parameters. The creatinine assay has traceable calibration to isotope dilution-mass spectrometry. Refer to KDIGO guidelines for clinical interpretation. In patients with unstable renal function, e.g. those with acute kidney injury, the eGFR may not accurately reflect actual GFR. Performed By: #### 2 4323-8 #### [facility] CLIA [id number] [address] [place] [address] [place] Glucose [Mass/Vol] 104 mg/dL High 74-99 [facility] Comment on above: Order Comment: Speci men Type: BLOOD SPECIMEN Ordering Facility: [facility] Address: [address] [place] [address] Result Comment: The [place] [employer] (ADA) provides guidance for cutoff values for fasting glucose and random glucose. The ADA defines fasting as no caloric intake for at least 8 hours. Fasting plasma glucose results between 100 to 125 mg/dL indicate increased risk for diabetes (prediabetes). Fasting plasma glucose results greater than or equal to 126 mg/dL meet the criteria for diagnosis of diabetes. In the absence of unequivocal hyperglycemia, results should be confirmed by repeat testing. In a patient with classic symptoms of hyperglycemia or hyperglycemic crisis, random plasma glucose results greater than or equal to 200 mg/dL meet the criteria for diagnosis of diabetes. Reference: Standards of Medical Care in Diabetes 2016, [employer] Diabetes Association. Diabetes Care. 2016.39(Suppl 1). Performed By: #### 2 4323-8 #### [facility] CLIA [id number] [address] [place] [address] [place] Potassium [Moles/Vol] 4.5 mmol/L Normal 3.7-5.1 [facility] Comment on above: Order Comment: Speci men Type: BLOOD SPECIMEN Ordering Facility: [facility] Address: [address] [place] [address] Performed By: #### 2 4323-8 #### [facility] CLIA [id number] [address] [place] [address] [place] Protein [Mass/Vol] 5.8 g/dL Low 6.3-8.0 [facility] Comment on above: Order Comment: Michaeli men Type: BLOOD SPECIMEN Ordering Facility: [facility] Address: [address] [place] [address] Performed By: #### 2 4323-8 #### [facility] CLIA [id number] [address] [place] [address] [place] Sodium [Moles/Vol] 140 mmol/L Normal 136-144 [facility] Comment on above: Order Comment: Speci men Type: BLOOD SPECIMEN Ordering Facility: [facility] Address: [address] [place] [address] Performed By: #### 2 4323-8 #### [facility] CLIA [id number] [address] [place] [address] [place] Urea nitrogen [Mass/Vol] 13 mg/dL Normal 9-24 [facility] Comment on above: Order Comment: Speci men Type: BLOOD SPECIMEN Ordering Facility: [facility] Address: [address] [place] [address] Performed By: #### 2 4323-8 #### [facility] CLIA [id number] [address] [place] [address] [place] ECG COMPLETEon 04-30-2024 ECG COMPLETE Ventricular Rate : 6 5 BPM Atrial Rate : 65 BPM P-R Interval : 150 ms QRS Duration : 90 ms Q-T Interval : 416 ms QTC Calculation(Bazett) : 432 ms Calculated P Grayling : -17 degrees Calculated R Grayling : 49 degrees Calculated T Grayling : 44 degrees NORMAL SINUS RHYTHM NORMAL ECG Confirmed by FIDEL WILLOUGHBY MD ([id number]) on 05/24/2024 9:51:42 AM NAME : AYO ALICIA PID : [id number] : 1960 Gender : Male Race : Unknown ORD : [id number] Procedure Date : Apr 30 2024 13:55:34 Edit Date : May 24 2024 09:57:32 Diagnosis: NORMAL SINUS RHYTHM NORMAL ECG Confirmed by FIDEL WILLOUGHBY MD ([id number]) on 05/24/2024 9:51:42 AM Test Reason : Z01.818 Pre-op evaluation Location : 145 : [facility] Overread By : FIDEL WILLOUGHBY MD Edited By : FIDEL WILLOUGHBY MD Referred By : CUBA HAYWOOD Acquired by : vanessa mayer Normal [facility] HISTORY PHYSICALon HISTORY PHYSICAL HNO ID: [id number] Author: DOLLY NELSON APRN.JOVANA Service: ? Author Type: Nurse Practitioner Type: H&P Filed: 05/07/2024 10:11 Note Text: HISTORY AND PHYSICAL EXAMINATION SERVICE DATE: 04/30/2024 SERVICE TIME: 1:44 PM PRIMARY CARE PHYSICIAN: Perico Mccabe MD REASON FOR VISIT: Ayo Alicia is a 64 year old male who is scheduled for LAPAROSCOPY ENTERECTOMY RESECTION SMALL INTESTINE, SINGLE RESECTION AND ANASTOMOSIS at the request of Dr. Cuba Haywood for consultation. My final recommendation will be communicated back to the requesting physician by way of shared medical record or letter. Assessment Patient has the following medical conditions which may affect juan daniel-operative course: Hyperlipidemia Assessment: On Statin Follows with PCP Atrial fibrillation (HCC) Assessment: Stable per last Cardiology OV note 01/04/2023 S/p Ablation 11/21/2022 On BB, ASA, and Eliquis- Will send letter for coag clearance Denies any palpitations or recurrence Follows with Dr[facility] Pagan @ [facility] Atherosclerosis of coronary artery Assessment: Stable S/p Stenting in 2020 On ASA, DOAC, AND Statin Negative stress test 06/17/2023 Follows with Cardiology at [facility] GERD (gastroesophageal reflux disease) Assessment: Controlled with PPI Essential hypertension Assessment: Stable on medication 145/75 in office today Follows with PCP Anemia Assessment: Chronically low > 1 year Current Hgb 7.7 Notified surgeon- okay to proceed TANDS Done Patient is asymptomatic Denies dizziness, lightheadedness, no signs of active bleeding Follows with PCP Reddy Activity Status Index: METS: Do moderate work around the house, such as vacuuming, sweeping floors, or carrying in groceries (3.50 METs) Climb a flight of stairs or walk up a hill (5.50 METs) DASI Score: 9 Patient denies any chest pain or undue shortness of breath with the above physical activity. STOP-Bang Score: Has or is being treated for high blood pressure Patient over 50 years old Male patient Denies snoring loudly Denies feeling tired, fatigued, or sleepy during the daytime Has not been observed to stop breathing or choking/gasping during sleep BMI less than or equal to 35 kg/m2 Does not have a large neck STOP-Bang Score: 3 [id number] Score: Age: 65-74 Sex: male CHF history: No Hypertension history: Yes Stroke/TIA/thromboembo lism history: No Vascular disease history: Yes Diabetes history: No [id number] Score: 3 ARISCAT Score: Age: 51-80 Preoperative SpO2: >=96% Preoperative anemia: Yes Duration of surgery: 2-3 hrs Emergency procedure: No ARISCAT Score: ANESTHESIA FINDINGS: Intubation History: No history of difficult intubation Significant Anesthesia Considerations: none Airway History: No history of difficult airway I - PHYSICAL EVALUATION AIRWAY Patient intubated: No. Tracheostomy tube not present Mallampati: I. TM distance: >3 FB. Neck ROM: full ROM without neurological symptoms. Mouth opening: adequate. Short neck: no. Thick neck: no Lip Bite Test: II Microretrognathia/Micr onagthia/Recessed Chin: No DENTAL Dental findings: teeth intact and missing tooth/teeth. Additional comments: +Implants . II - ANESTHESIA PLAN Beta César Monitoring Plan Post Procedure Analgesic Plan Prepared for surgery: This patient is optimally prepared for surgery pending pending DOS review. 05/04/2024 Update: See Tele enc to Dr. Haywood: I saw this patient for pre-anesthesia on 04/30. He has Chronic anemia his Hemoglobin came back at 7.7. I was able to look in care everywhere and his last Hemoglobin was 04/06/2024 and it came back at 8.3. He does not follow with hematology. He only follows with PCP. He said this has been an ongoing issue and he did have an iron infusion about a year ago. He is asymptomatic. At this time I do not think there would be enough time for an iron infusion. I will CC blood Management to get their input. Unsure what your parameters would be in order to proceed. A type and screen has been completed. Would you like to postpone and have him get a series of infusions first or do you feel it is okay to proceed? Cuba Haywood MD to Me Krupa Casillas RN Proceed with surgery 05/07/2024 Update: Rec's received from Cardiology patient okay to hold Eliquis x3 days but should continue ASA. Will notify patient. Sent FYI to Dr. Haywood. CONSULTS: Patient does not require consults for optimization at this time. The Following Tests/Procedures Have Been Initiated: Orders Placed This Encounter Type and Screen, 30 day Standing Status: Future Number of Occurrences: 1 Standing Expiration Date: 07/30/2024 Scheduling Instructions: A 30-day Type and Screen test has been ordered for you. This should be scheduled to be collected no earlier than 29 days before your scheduled procedure. If you receive blood products (red blood cells, platelets, plasma, cryoprecipit (more content not included)... Normal [facility] TYPE AND SCREEN,30 DAYon ABO A Normal [facility] Comment on above: Order Comment: Asuncion cho Type: BLOOD SPECIMEN Ordering Facility: [facility] Address: [address] [place] [address] Performed By: #### T SCR30 #### [facility] CLIA [id number] [address] [place] [address] [place] HISTORICAL AB SCR STATUS Negative Normal [facility] Comment on above: Order Comment: Asuncion cho Type: BLOOD SPECIMEN Ordering Facility: [facility] Address: [address] [place] [address] Performed By: #### T SCR30 #### [facility] CLIA [id number] [address] [place] [address] [place] Rh Nom (Bld) Positive Normal [facility] Comment on above: Order Comment: Asuncion cho Type: BLOOD SPECIMEN Ordering Facility: [facility] Address: [address] [place] [address] Performed By: #### T SCR30 #### [facility] CLIA [id number] [address] [place] [address] [place] CNOVon 04-28-2024 CNOV Office Visit ([facility] ) AYO ALICIA ([id number]) 1960 Date Time Provider Department 04/28/24 12:20 PM CUBA HAYWOOD [facility] During your visit today, we recorded the following information about you: Temperature Pulse Blood pressure Weight 97.5 degrees 61/minute 131/63 77.1 kg Height 1.727 m Cuba Haywood MD 04/29/2024 9:55 PM Signed COLORECTAL SURGERY April 28, 2024 Ayo Alicia 64 year old This consult was requested by Dr. Arias and my final recommendations will be communicated to the requesting health care provider by way of the shared medical record for internal providers or letter via the [employer] Postal Service for external providers. Chief Complaint: retained capsule History of Present Illness: Ayo Alicia is a 64 year old male presents today for evaluation of retained endoscopic camera. [facility] Scan on 04/22/2024 8:26 AM by Lisa Arreaga: [facility] CT ABD AND PEL [id number] - Tiny hiatal hernia - Cholelithiasis - Left renal cysts - No bowel or urinary tract obstruction - Wall thickening at hte distal ileum that could be activation of patients Crohn's disease, there is also some stranding and lymph nodes in the adjacent mesentery att the right upper quadrant - Diverticulosis - Segments of under distended left colon with apparent wall thickening - Suspected endoscopic camera within small bowel at the right upper quadrant 64-year-old male with history of Crohn's disease on [facility]. CT enterography as above. He had a capsule endoscopy test done over a year ago and there is a retained capsule No past medical history on file. No past surgical history on file. Current Outpatient Medications Medication Sig Dispense Refill aspirin 325 mg tablet Take by mouth. atorvastatin (LIPITOR) 80 mg tablet atorvastatin 80 mg tablet TAKE 1 TABLET BY MOUTH DAILY buPROPion XL (WELLBUTRIN XL) 150 mg 24 hr tablet q 24 HR. carvedilol (COREG) 12.5 mg tablet carvedilol 12.5 mg tablet TAKE 1 TABLET BY MOUTH TWICE DAILY clopidogrel (PLAVIX) 75 mg tablet clopidogrel 75 mg tablet TAKE 1 TABLET BY MOUTH DAILY lisinopril-hydroCHLORO thiazide (PRINZIDE,ZESTORETIC) 20-12.5 mg per tablet q 24 HR. meloxicam (MOBIC) 15 mg tablet q 24 HR. omeprazole (PRILOSEC) 40 mg capsule q 24 HR. sildenafil (VIAGRA) 100 mg tablet No current facility-administered medications for this visit. ALLERGIES No Known Allergies No family history on file. Social History Tobacco Use Smoking status: Never Smokeless tobacco: Never Physical Exam: BP 131/63 (BP Site: Right Arm, BP Position: Sitting) Pulse 61 Temp 36.4 ?C (97.5 ?F) Ht 172.7 cm (5' 8 ) Wt 77.1 kg (170 lb) SpO2 99% BMI 25.85 kg/m? General Appearance: Well appearing, alert, in no acute distress, well-hydrated, well nourished. Abdomen: Soft, nontender Assessment Assessment and Plan: Ayo Alicia is a 64 year old male with Crohn's disease and retained capsule endoscopy pill. Likely has a stricture contributing to this. Will plan for laparoscopic small bowel resection of this area. Consent obtained Medical Decision Making: Data Reviewed: Tests AND Documents Reviewed/ordered: Review of prior notes from Dr. Arias Review of Pathology Review of Imaging: CT Abdomen, CT Pelvis Review of Labs: CBC, BMP I have independently interpreted: CT Abdomen, CT Pelvis I have discussed Ayo Alicia's treatment plan and/or results with Dr. Arias. Risk of morbidity, mortality and/or complications of treatment plan: high Cuba Haywood MD Colorectal Surgery Allergies As of Date: 04/28/2024 (No Known Allergies) Date Reviewed: 04/28/2024 Reviewed by: Chanelle Turk OCCA - Fully Assessed Reason for Visit: New Patient [172] Cmt: retained capsule Primary Visit Diagnosis:Crohn's disease of both small and large intestine without complication (HCC) [K50.80] Order(s):COMPLETE BLOOD COUNT AND DIFFERENTIAL [SQCBCDIF] Order #: [id number] FUTURE COMPREHENSIVE METABOLIC PANEL [SQCMP] Order #: [id number] FUTURE metroNIDAZOLE (FLAGYL) 500 mg tabletTake 1 tablet by mouth as directed. Take one tab at 6:00 p.m., another at 7:00 p.m. and the last one at 11:00 p.m., prior to surgeryDisp: 3 tabletRfl: 0 neomycin 500 mg tabletTake 2 tablets by mouth as directed. Take two tabs at 6:00 p.m., 7:00 p.m. and 11:00 p.m., prior to surgeryDisp: 6 tabletRfl: 0 Prescriptions as of 04/29/2024 - metroNIDAZOLE (FLAGYL) 500 mg tablet Take 1 tablet by mouth as directed. Take one tab at 6:00 p.m., another at 7:00 p.m. and the last one at 11:00 p.m., prior to surgery - neomycin 500 mg tablet Take 2 tablets by mouth as directed. Take two tabs at 6:00 p.m., 7:00 p.m. and 11:00 p.m., prior to surgery - aspirin 81 mg cap Take 81 mg by mouth once daily. - aspirin 325 mg tablet Take by mouth. (more content not included)... Normal [facility] CT enterographyon 04-16-2024 CT enterography [facility] Main [place] [address] [place] [address] CT Scan Report Signed Patient: Ayo Alicia MR#: [id number] : 1960 Acct:[id number] Age/Sex: 64 / M ADM Date: 04/16/24 Loc: CT Room: Type: [facility] [address] Attending Dr: Nelly Arias DO Copies to: Nelly Arias DO Ordering Provider: Nelly Arias DO Date of Service: 04/16/24 CT/CT enterography: K50.90 - Crohn's disease, unspecified, without complications CT ENTEROGRAPHY OF THE ABDOMEN AND PELVIS WITH CONTRAST COMPARISON: None CLINICAL DATA: Crohn's disease. Spiral images were obtained through the abdomen pelvis following oral and intravenous administration of 90 mL of Isovue-300 using enterography protocol. This CT exam was performed using one or more following dose reduction techniques: Automated exposure control, adjustment of the mA and/or kV according to patient size, or use of iterative reconstruction technique. Limited cuts through the lung bases show no contributory pulmonary findings. There is a tiny hiatal hernia. Calcified gallstones are present, without pericholecystic inflammation. No intrahepatic masses are identified. Calcified splenic granulomas are seen. The pancreas and adrenal glands show no acute findings. There are symmetric bilateral renal nephrograms, without hydronephrosis. There are left renal cysts measuring up to 4.7 cm in diameter. There is a plaque involving the aorta, iliac and some of the proximal visceral arteries. There is hazy density within the mesentery at the right upper quadrant where there are small lymph nodes. No ascites is noted. The stomach is filled with fluid. The small bowel loops are not disproportionately distended though they contain fluid. There is a radiopaque structure within the small bowel loop at the right upper quadrant which adjacent to the gallbladder that could be an endoscopic camera. At the right lower abdomen/upper pelvis, the distal ileum shows mild wall thickening. This could be exacerbation of Crohn's disease. The colon contains some fluid though no significant stool. There is mild levoscoliotic curvature involving the spine as well as degenerative changes. There is associated stenosis, greatest at L3-4. Images through the pelvis show tiny umbilical hernia containing fat. There is no dilated small bowel. The above described distal ileal loop with wall thickening is seen. There is fluid within the distal colon. There is poor distention of the distal descending colon with apparent wall thickening. There are distal descending and sigmoid diverticula. No associated active inflammation is seen. The appendix is not obvious. The prostate is borderline prominent. The urinary bladder is not well distended for assessment. No ascites is seen. CT/CT enterography IMPRESSION: TINY HIATAL HERNIA. CHOLELITHIASIS. LEFT RENAL CYSTS. NO BOWEL OR URINARY TRACT OBSTRUCTION. WALL THICKENING AT THE DISTAL ILEUM THAT COULD BE ACTIVATION OF PATIENT'S CROHN'S DISEASE. THERE IS ALSO SOME STRANDING AND LYMPH NODES IN THE ADJACENT MESENTERY AT THE RIGHT UPPER QUADRANT. DIVERTICULOSIS. SEGMENTS OF UNDERDISTENDED LEFT COLON WITH APPARENT WALL THICKENING. SUSPECTED ENDOSCOPIC CAMERA WITHIN SMALL BOWEL AT THE RIGHT UPPER QUADRANT. Impression dictated by: Keiko Wan M.D.04/16/2024 2:55 PM Dictation Location: [place] [address] Transcribed By: [facility] 04/16/24 2027 Dictated By: Keiko Wan MD 04/16/24 1448 Signed By: 04/16/24 1457 Normal [facility] Creatinineon 04-16-2024 GFR/1.73 sq M.predicted MDRD (S/P/Bld) [Vol rate/Area] mL/min/{1.73_m2} Normal [facility] Comment on above: Result Comment: PERF ORMED BY: [place] [address] PATHOLOGIST [employer] ANIYA BRUCE M.D. Performed By: #### B UN, CREAT #### [facility] [address] [place] [address] Creatinine [Mass/volume] in Serum or PlasmaOrdered By: Nelly Arias on 04-16-2024 Creatinine [Mass/Vol] 0.98 mg/dL Normal 0.70-1.30 [facility] Comment on above: Performed By: #### B UN, CREAT #### [facility] [address] [place] [address] No Panel InformationOrdered By: Nelly Arias on 04-16-2024 Estimated GFR (CKD-EPI) > 60.0 mL/Min [facility] Creatinine Clearance (Chem N/A [facility] Urea nitrogen [Mass/volume] in Serum or PlasmaOrdered By: Nelly Arias on 04-16-2024 Urea nitrogen [Mass/Vol] 24 mg/dL Normal 7-25 [facility] Comment on above: Performed By: #### B UN, CREAT #### [facility] [address] [place] [address] HEMOGLOBINon 08-27-2023 Hemoglobin (Bld) [Mass/Vol] 12.3 g/dL Low 13.0-17.0 [facility] Comment on above: Performed By: #### 7 18-7 #### [facility] ([id number]) [address] [address], [address] [place] [address] Hemoglobinon 08-27-2023 Hemoglobin (Bld) [Mass/Vol] 12.3 g/dL Low 13.0 - 17.0 g/dL [facility] Hemoglobin (Bld) [Mass/Vol]o n 08-27-2023 Interpretation and review of laboratory results Abnormal [facility] Albumin [Mass/volume] in Ser um or Plasma by Bromocresol green (BCG) dye binding methoOrdered By: Enoch Carnes on 04-23-2023 Albumin BCG dye [Mass/Vol] 3.8 g/dL 3.5-5.7 [facility] Automated basophil %Ordered By: Enoch Carnes on 04-23-2023 Basophils/100 WBC (Bld) 0.8 % Normal . [facility] Comment on above: Order Comment: Reaso n for Exam Crohns disease Performed By: #### C BC, CMP #### [address] Automated basophil countOrde red By: Enoch Carnes on 04-23-2023 Basophils (Bld) [#/Vol] 0.1 10*3/uL Normal 0.0-0.2 [facility] Comment on above: Order Comment: Reaso n for Exam Crohns disease Result Comment: PERF ORMED BY: [place] [address] PATHOLOGIST [employer] ANIYA BRUCE M.D. Performed By: #### C BC, CMP #### [address] Automated blood monocyte cou ntOrdered By: Enoch Carnes on 04-23-2023 Monocytes (Bld) [#/Vol] 0.8 10*3/uL Normal 0.0-0.8 [facility] Comment on above: Order Comment: Reaso n for Exam Crohns disease Performed By: #### C BC, CMP #### [address] Automated eosinophil %Ordere d By: Enoch Carnes on 04-23-2023 Eosinophils/100 WBC (Bld) 1.4 % Normal . [facility] Comment on above: Order Comment: Reaso n for Exam Crohns disease Performed By: #### C BC, CMP #### [address] Automated eosinophil countOr dered By: Enoch Carnes on 04-23-2023 Eosinophils (Bld) [#/Vol] 0.1 10*3/uL Normal 0.0-0.45 [facility] Comment on above: Order Comment: Reaso n for Exam Crohns disease Performed By: #### C BC, CMP #### [facility] [address] Automated monocyte %Ordered By: Enoch Carnes on 04-23-2023 Monocytes/100 WBC (Bld) 8.0 % Normal . [facility] Comment on above: Order Comment: Reaso n for Exam Crohns disease Performed By: #### C BC, CMP #### [facility] [address] Automated neutrophil %Ordere d By: Enoch Carnes on 04-23-2023 Neutrophils/100 WBC (Bld) 82.6 % Normal . [facility] Comment on above: Order Comment: Reaso n for Exam Crohns disease Performed By: #### C BC, CMP #### [facility] [address] Bilirubin.total [Mass/volume ] in Serum or PlasmaOrdered By: Enoch Carnes on 04-23-2023 Bilirubin [Mass/Vol] 0.9 mg/dL Normal 0.3-1.0 [facility] Comment on above: Order Comment: Reaso n for Exam Crohns disease Performed By: #### C BC, CMP #### [address] Calcium [Mass/volume] in Ser um or PlasmaOrdered By: Enoch Carnes on 04-23-2023 Calcium [Mass/Vol] 8.7 mg/dL Normal 8.6-10.3 [facility] Comment on above: Order Comment: Reaso n for Exam Crohns disease Performed By: #### C BC, CMP #### [facility] [address] [place] [id number] [place] Carbon dioxide, total [Moles /volume] in Serum or PlasmaOrdered By: Enoch Carnes on 04-23-2023 CO2 [Moles/Vol] 29.7 mmol/L Normal 21.0-31.0 [facility] Comment on above: Order Comment: Reaso n for Exam Crohns disease Performed By: #### C BC, CMP #### [place] [address] [place] Complete Blood Count Auto Di ffon 04-23-2023 Mean Corpuscular HGB Conc 30.3 g/dL Low 32.5-35.6 [facility] Comment on above: Order Comment: Reaso n for Exam Crohns disease Performed By: #### C BC, CMP #### [facility] [address] [place] [id number] [facility] NRBC% 0.1 /100{WBC} Normal 0-0.5 [facility] Comment on above: Order Comment: Reaso n for Exam Crohns disease Performed By: #### C BC, CMP #### [facility] [address] [place] [id number] [facility] Comprehensive Metabolic Pane dianna 04-23-2023 Albumin [Mass/Vol] 3.905987 g/dL Normal 3.5-5.7 g/dL [facility] [employer] Other Bilirubin [Mass/Vol] 0.6662316 mg/dL Normal 0.3- 1.0 mg/dL [facility] Other Calcium [Mass/Vol] 8.5815455 mg/dL Normal 8.6-10 .3 mg/dL [facility] Other CO2 [Moles/Vol] 29.33409632 mmol/L Normal 21.0-3 1.0 mmol/L [facility] Other Creatinine [Mass/Vol] 1.54253077 mg/dL Normal 0. 70-1.30 mg/dL [facility] Other Potassium [Moles/Vol] 3.49823322 mmol/L Low 3 .5-5.1 mmol/L [facility] Other Protein [Mass/Vol] 6.690374 g/dL Low 6.4-8.9 g/dL [facility] Other Comprehensive Metabolic Panel 2.2 g/dL [facility] Other Albumin [Mass/Vol] 3.8 g/dL Normal 3.5-5.7 [facility] Comment on above: Order Comment: Reaso n for Exam Crohns disease Performed By: #### C BC, CMP #### [facility] [address] [place] [address] [place] GFR/1.73 sq M.predicted MDRD (S/P/Bld) [Vol rate/Area] mL/min/{1.73_m2} Normal [facility] Other Comment on above: Order Comment: Reaso n for Exam Crohns disease Performed By: #### C BC, CMP #### [facility] [address] Comprehensive Metabolic Pane lOrdered By: Enoch Carnes on 04-23-2023 Albumin/Globulin [Mass ratio] 1.7 {ratio} Normal [facility] Comment on above: Order Comment: Reaso n for Exam Crohns disease Performed By: #### C BC, CMP #### [address] ALP [Catalytic activity/Vol] 45 U/L Normal 34-104 [facility] Comment on above: Order Comment: Reaso n for Exam Crohns disease Result Comment: PERF ORMED BY: [place] [address] PATHOLOGIST [employer] ANIYA BRUCE M.D. Performed By: #### C BC, CMP #### [address] ALT [Catalytic activity/Vol] 12 U/L Normal 7-52 [facility] Comment on above: Order Comment: Reaso n for Exam Crohns disease Performed By: #### C BC, CMP #### [facility] [address] AST [Catalytic activity/Vol] 11 U/L Low 13-39 [facility] Comment on above: Order Comment: Reaso n for Exam Crohns disease Performed By: #### C BC, CMP #### [address] Chloride [Moles/Vol] 106 mmol/L Normal 98-107 [facility] Comment on above: Order Comment: Reaso n for Exam Crohns disease Performed By: #### C BC, CMP #### [facility] [address] Glucose [Mass/Vol] 140 mg/dL High 70-100 [facility] Comment on above: ADA recommended refe rence rangeRandom Glucose Reference Range is dependent on time and content of last meal. Glucose of more than 200 mg/dL in a nonstressed, ambulatory subject supports the diagnosis of Diabetes Mellitus. Order Comment: Reaso n for Exam Crohns disease Result Comment: [place] om Glucose Reference Range is dependent on time and content of last meal. Glucose of more than 200 mg/dL in a nonstressed, ambulatory subject supports the diagnosis of Diabetes Mellitus. ADA recommended reference range Performed By: #### C BC, CMP #### [address] Sodium [Moles/Vol] 141 mmol/L Normal 136-145 [facility] Comment on above: Order Comment: Reaso n for Exam Crohns disease Performed By: #### C BC, CMP #### [address] Urea nitrogen [Mass/Vol] 15 mg/dL Normal 7-25 [facility] Comment on above: Order Comment: Reaso n for Exam Crohns disease Performed By: #### C BC, CMP #### [address] Creatinine [Mass/volume] in Serum or PlasmaOrdered By: Enoch Carnes on 04-23-2023 Creatinine [Mass/Vol] 1.08 mg/dL Normal 0.70-1.30 [facility] Comment on above: Order Comment: Reaso n for Exam Crohns disease Performed By: #### C BC, CMP #### [place] [address] [place] Erythrocyte distribution wid th [Ratio] by Automated countOrdered By: Enoch Carnes on 04-23-2023 Erythrocyte distribution width (RBC) [Ratio] 19.1 % High 12.0-14.8 [facility] Comment on above: Order Comment: Reaso n for Exam Crohns disease Performed By: #### C BC, CMP #### [address] Erythrocytes [#/volume] in B lood by Automated countOrdered By: Enoch Carnes on 04-23-2023 RBC (Bld) [#/Vol] 3.49 10*6/uL Low 3.90-5.60 [facility] Comment on above: Order Comment: Reaso n for Exam Crohns disease Performed By: #### C BC, CMP #### [address] Hematocrit [Volume Fraction] of Blood by Automated countOrdered By: Enoch Carnes on 04-23-2023 Hematocrit (Bld) [Volume fraction] 25.3 % Low 38.8-50.0 [facility] Comment on above: Order Comment: Reaso n for Exam Crohns disease Performed By: #### C BC, CMP #### [address] Hemoglobin [Mass/volume] in BloodOrdered By: Enoch Carnes on 04-23-2023 Hemoglobin (Bld) [Mass/Vol] 7.7 g/dL Low 13.0-17.0 [facility] Comment on above: Order Comment: Reaso n for Exam Crohns disease Performed By: #### C BC, CMP #### [address] Leukocytes [#/volume] correc miguel for nucleated erythrocytes in Blood by Automated counOrdered By: Enoch Carnes on 04-23-2023 WBC corrected for nucl RBC Auto (Bld) [#/Vol] 9.8 10*3/uL 4.1-10.5 [facility] Leukocytes [#/volume] in Blo od by Automated countOrdered By: Enoch Carnes on 04-23-2023 WBC (Bld) [#/Vol] 9.8 10*3/uL Normal 4.1-10.5 [facility] Comment on above: Order Comment: Reaso n for Exam Crohns disease Performed By: #### C BC, CMP #### [place] [address] [place] Lymphocytes [#/volume] in Bl ood by Automated countOrdered By: Enoch Carnes on 04-23-2023 Lymphocytes (Bld) [#/Vol] 0.7 10*3/uL Low 1.00-4.8 [facility] Comment on above: Order Comment: Reaso n for Exam Crohns disease Performed By: #### C BC, CMP #### [address] Lymphocytes/100 leukocytes i n Blood by Automated countOrdered By: Enoch Carnes on 04-23-2023 Lymphocytes/100 WBC (Bld) 7.2 % Normal . [facility] Comment on above: Order Comment: Reaso n for Exam Crohns disease Performed By: #### C BC, CMP #### [address] MCH [Entitic mass] by Automa miguel countOrdered By: Enoch Carnes on 04-23-2023 MCH (RBC) [Entitic mass] 22.0 pg Low 27.5-35.2 [facility] Comment on above: Order Comment: Reaso n for Exam Crohns disease Performed By: #### C BC, CMP #### [address] MCHC Auto (RBC) [Mass/Vol]Or dered By: Enoch Carnes on 04-23-2023 MCHC (RBC) [Mass/Vol] 30.3 g/dL 32.5-35.6 [facility] MCV [Entitic volume] by Auto mated countOrdered By: Enoch Carnes on 04-23-2023 MCV (RBC) [Entitic vol] 72.5 fL Low 83.5-101 [facility] Comment on above: Order Comment: Reaso n for Exam Crohns disease Performed By: #### C BC, CMP #### [address] Neutrophils [#/volume] in Bl ood by Automated countOrdered By: Enoch Carnes on 04-23-2023 Neutrophils (Bld) [#/Vol] 8.1 10*3/uL High 1.8-7.7 [facility] Comment on above: Order Comment: Reaso n for Exam Crohns disease Performed By: #### C BC, CMP #### [facility] [address] [place] [address] No Panel InformationOrdered By: Enoch Carnes on 04-23-2023 Estimated GFR (CKD-EPI) > 60.0 mL/Min [facility] Creatinine Clearance (Chem N/A [facility] Nucleated erythrocytes [Pres ence] in Blood by Automated countOrdered By: Enoch Carnes on 04-23-2023 Nucleated RBC Auto Ql (Bld) 0.1 /100{WBC} 0-0.5 [facility] Platelet mean volume [Entiti c volume] in Blood by Automated countOrdered By: Enoch Carnes on 04-23-2023 Platelet mean volume (Bld) [Entitic vol] 7.5 fL Normal 6.6-10.1 [facility] Comment on above: Order Comment: Reaso n for Exam Crohns disease Performed By: #### C BC, CMP #### [address] Platelets [#/volume] in Bloo d by Automated countOrdered By: Enoch Carnes on 04-23-2023 Platelets (Bld) [#/Vol] 359 10*3/uL Normal 150-450 [facility] Comment on above: Order Comment: Reaso n for Exam Crohns disease Performed By: #### C BC, CMP #### [facility] [address] [place] [address] [place] Potassium [Moles/volume] in Serum or PlasmaOrdered By: Enoch Carnes on 04-23-2023 Potassium [Moles/Vol] 3.3 mmol/L Low 3.5-5.1 [facility] Comment on above: Order Comment: Reaso n for Exam Crohns disease Performed By: #### C BC, CMP #### [place] [address] [place] Protein [Mass/volume] in Ser um or PlasmaOrdered By: Enoch Carnes on 04-23-2023 Protein [Mass/Vol] 6.0 g/dL Low 6.4-8.9 [facility] Comment on above: Order Comment: Reaso n for Exam Crohns disease Performed By: #### C BC, CMP #### [address] Serum globulin measurement b y calculation (mass/volume)Ordered By: Enoch Carnes on 04-23-2023 Globulin (S) [Mass/Vol] 2.2 g/dL Normal [facility] Comment on above: Order Comment: Reaso n for Exam Crohns disease Performed By: #### C BC, CMP #### [address] Serum or plasma anion gap de terminationOrdered By: Enoch Carnes on 04-23-2023 Anion gap [Moles/Vol] 8.6 mmol/L Normal 6.0-15.0 [facility] Comment on above: Order Comment: Reaso n for Exam Crohns disease Performed By: #### C BC, CMP #### [facility] [address] [place] [address] CBC AUTO DIFFon 11-01-2022 BASO # 0.1 103/ul Normal 0.0-0.1 [facility] Comment on above: Performed By: #### C MREP #### [facility] [address] [place] [address] Dr. Sayda Kapoor Basophils/100 WBC (Bld) 0.7 % Normal 0.2-2.0 [facility] Comment on above: Performed By: #### C MREP #### [facility] [address] [address] [address] Sayda Kapoor EO # 0.1 103/ul Normal 0.0-0.7 [facility] Comment on above: Performed By: #### C MREP #### [facility] [address] [address] [address] Sayda Kapoor Eosinophils/100 WBC (Bld) 1.4 % Normal 0.9-7.0 [facility] Comment on above: Performed By: #### C MREP #### [facility] [address] [address] [address] Sayda Kapoor Erythrocyte distribution width (RBC) [Ratio] 15.9 % Critically high 11.0-15.0 [facility] Comment on above: Performed By: #### C MREP #### [facility] [address] [place] [address] Dr. Sayda Kapoor Hematocrit (Bld) [Volume fraction] 31.5 % Critically low 42.0-54.0 [facility] Comment on above: Performed By: #### C MREP #### [facility] [address] [place] [address] Dr. Sayda Kapoor Hemoglobin (Bld) [Mass/Vol] 9.1 g/dL Critically low 14.0-18.0 [facility] Comment on above: Performed By: #### C MREP #### [facility] [address] [place] [address] Dr. Sayda Kapoor IG # 0.20 10e3/ul Critically high 0.00-0.03 [facility] Comment on above: Performed By: #### C MREP #### [facility] [address] [place] [address] Dr. Sayda Kapoor IG % 2.3 % Critically high 0.0-0.5 [facility] Comment on above: Performed By: #### C MREP #### [facility] [address] [place] [address] Dr. Sayda Kapoor LYMPH # 0.8 103/ul Critically low 1.2-3.8 [facility] Comment on above: Performed By: #### C MREP #### [facility] [address] [place] [address] Dr. Sayda Kapoor Lymphocytes/100 WBC (Bld) 9.4 % Critically low 20.5-60.0 [facility] Comment on above: Performed By: #### C MREP #### [facility] [address] [place] [address] Dr. Sayda Kapoor MANUAL DIFF REQ NO Normal [facility] Comment on above: Performed By: #### C MREP #### [facility] [address] [address] [address] Sayda Kapoor MCH (RBC) [Entitic mass] 22.9 pg Critically low 25.9-34.0 [facility] Comment on above: Performed By: #### C MREP #### [facility] [address] [place] [address] Dr. Sayda Kapoor MCHC (RBC) [Mass/Vol] 28.9 g/dL Critically low 29.9-35.2 [facility] Comment on above: Performed By: #### C MREP #### [facility] [address] [place] [address] Dr. Sayda Kapoor MCV (RBC) [Entitic vol] 79.1 fL Critically low 80.0-94.0 [facility] Comment on above: Performed By: #### C MREP #### [facility] [address] [place] [address] Dr. Sayda Kapoor MONO # 0.6 103/ul Normal 0.3-0.8 [facility] Comment on above: Performed By: #### C MREP #### [facility] [address] [place] [address] Dr. Sayda Kapoor Monocytes/100 WBC (Bld) 7.2 % Normal 1.7-12.0 [facility] Comment on above: Performed By: #### C MREP #### [facility] [address] [place] [address] Dr. Sayda Kapoor NEUT # 6.9 103/ul Critically high 1.4-6.5 [facility] Comment on above: Performed By: #### C MREP #### [facility] [address] [place] [address] Dr. Sayda Kapoor Neutrophils/100 WBC (Bld) 79.0 % Critically high 43.0-75.0 [facility] Comment on above: Performed By: #### C MREP #### [facility] [address] [place] [address] Dr. Sayda Kapoor Platelet mean volume (Bld) [Entitic vol] 9.1 fL Critically low 9.5-13.5 [facility] Comment on above: Performed By: #### C MREP #### [facility] [address] [address] [address] Sayda Kapoor PLT 416 103/ul Normal 150-450 [facility] Comment on above: Performed By: #### C MREP #### [facility] [address] [address] [address] Sayda Kapoor RBC 3.98 106/ul Critically low 4.70-6.10 [facility] Comment on above: Performed By: #### C MREP #### [facility] [address] [address] [address] Sayda Kapoor WBC 8.8 103/ul Normal 4.0-11.0 [facility] Comment on above: Performed By: #### C MREP #### [facility] [address] [place] [address] Dr. Sayda Kapoor PROF CHEM 8 (BAS METB)on Anion gap [Moles/Vol] 9.0 mmol/L Normal [facility] Comment on above: Performed By: #### B BULK FILLER, CMP, LIPA, TONI #### [facility] [address] [place] [address] Dr. Sayda Kapoor Calcium [Mass/Vol] 8.2 mg/dL Critically low 8.5-10.1 [facility] Comment on above: Performed By: #### B BULK FILLER, CMP, LIPA, TONI #### [facility] [address] [place] [address] Dr. Sayda Kapoor Chloride [Moles/Vol] 104 mmol/L Normal 98-107 [facility] Comment on above: Performed By: #### B BULK FILLER, CMP, LIPA, TONI #### [facility] [address] [address] [address] Sayda Kapoor CO2 [Moles/Vol] 32.5 mmol/L Critically high 21.0-32.0 [facility] Comment on above: Performed By: #### B BULK FILLER, CMP, LIPA, TONI #### [facility] [address] [place] [address] Dr. Sayda Kapoor Creatinine [Mass/Vol] 0.93 mg/dL Normal 0.70-1.30 [facility] Comment on above: Performed By: #### B BULK FILLER, CMP, LIPA, TONI #### [facility] [address] [place] [address] Dr. Sayda Kapoor EGFR-AF EGYPTIAN >60 Normal >=60 [facility] Comment on above: Performed By: #### B BULK FILLER, CMP, LIPA, TONI #### [facility] [address] [place] [address] Dr. Sayda Kapoor EGFR-NON AF EGYPTIAN >60 Normal >=60 [facility] Comment on above: Performed By: #### B BULK FILLER, CMP, LIPA, TONI #### [facility] [address] [place] [address] Dr. Sayda Kapoor Glucose [Mass/Vol] 145 mg/dL Critically high 74-106 [facility] Comment on above: Performed By: #### B BULK FILLER, CMP, LIPA, TONI #### [facility] [address] [place] [address] Dr. Sayda Kapoor Potassium [Moles/Vol] 3.5 mmol/L Normal 3.5-5.1 [facility] Comment on above: Performed By: #### B BULK FILLER, CMP, LIPA, TONI #### [facility] [address] [place] [address] Dr. Sayda Kapoor Sodium [Moles/Vol] 142 mmol/L Normal 136-145 [facility] Comment on above: Performed By: #### B BULK FILLER, CMP, LIPA, TONI #### [facility] [address] [place] [address] Dr. Sayda Kapoor Urea nitrogen [Mass/Vol] 20.0 mg/dL Critically high 7.0-18.0 [facility] Comment on above: Performed By: #### B BULK FILLER, CMP, LIPA, TONI #### [facility] [address] [place] [address] Dr. Sayda Kapoor Urea nitrogen/Creatinine [Mass ratio] 21.5 mg/mg Normal [facility] Comment on above: Performed By: #### B BULK FILLER, CMP, LIPA, TONI #### [facility] [address] [place] [address] Dr. Sayda Kapoor BNPon 10-23-2022 Natriuretic peptide B (Bld) [Mass/Vol] 2297.0 pg/mL Critically high <=900.0 [facility] Comment on above: Performed By: #### C MREP #### [facility] [address] [place] [address] Dr. Sayda Kapoor CBC AUTO DIFFon 10-23-2022 BASO # 0.1 103/ul Normal 0.0-0.1 [facility] Comment on above: Performed By: #### D IG #### [facility] [address] [place] [address] Dr. Sayda Kapoor Basophils/100 WBC (Bld) 0.7 % Normal 0.2-2.0 [facility] Comment on above: Performed By: #### D IG #### [facility] [address] [place] [address] Dr. Sayda Kapoor EO # 0.1 103/ul Normal 0.0-0.7 [facility] Comment on above: Performed By: #### D IG #### [facility] [address] [place] [address] Dr. Sayda Kapoor Eosinophils/100 WBC (Bld) 1.9 % Normal 0.9-7.0 [facility] Comment on above: Performed By: #### D IG #### [facility] [address] [place] [address] Dr. Sayda Kapoor Erythrocyte distribution width (RBC) [Ratio] 15.6 % Critically high 11.0-15.0 [facility] Comment on above: Performed By: #### D IG #### [facility] [address] [place] [address] Dr. Sayda Kapoor Hematocrit (Bld) [Volume fraction] 29.1 % Critically low 42.0-54.0 [facility] Comment on above: Performed By: #### D IG #### [facility] [address] [place] [address] Dr. Sayda Kapoor Hemoglobin (Bld) [Mass/Vol] 8.4 g/dL Critically low 14.0-18.0 [facility] Comment on above: Performed By: #### D IG #### [facility] [address] [place] [address] Dr. Sayda Kapoor IG # 0.06 10e3/ul Critically high 0.00-0.03 [facility] Comment on above: Performed By: #### D IG #### [facility] [address] [place] [address] Dr. Sayda Kapoor IG % 0.8 % Critically high 0.0-0.5 [facility] Comment on above: Performed By: #### D IG #### [facility] [address] [place] [address] Dr. Sayda Kapoor LYMPH # 1.1 103/ul Critically low 1.2-3.[address] [facility] Comment on above: Performed By: #### D IG #### [facility] [address] [place] [address] Dr. Sayda Kapoor Lymphocytes/100 WBC (Bld) 14.8 % Critically low 20.5-60.0 [facility] Comment on above: Performed By: #### D IG #### [facility] [address] [place] [address] Dr. Sayda Kapoor MANUAL DIFF REQ NO Normal [facility] Comment on above: Performed By: #### D IG #### [facility] [address] [address] [address] Sayda Kapoor MCH (RBC) [Entitic mass] 23.3 pg Critically low 25.9-34.0 [facility] Comment on above: Performed By: #### D IG #### [facility] [address] [address] [address] Sayda Kapoor MCHC (RBC) [Mass/Vol] 28.9 g/dL Critically low 29.9-35.2 [facility] Comment on above: Performed By: #### D IG #### [facility] [address] [place] [address] Dr. Sayda Kapoor MCV (RBC) [Entitic vol] 80.6 fL Normal 80.0-94.0 [facility] Comment on above: Performed By: #### D IG #### [facility] [address] [address] [address] Sayda Kapoor MONO # 0.7 103/ul Normal 0.3-0.8 [facility] Comment on above: Performed By: #### D IG #### [facility] [address] [address] [address] Sayda Kapoor Monocytes/100 WBC (Bld) 8.7 % Normal 1.7-12.0 [facility] Comment on above: Performed By: #### D IG #### [facility] [address] [place] [address] Dr. Sayda Kapoor NEUT # 5.5 103/ul Normal 1.4-6.5 [facility] Comment on above: Performed By: #### D IG #### [facility] [address] [place] [address] Dr. Sayda Kapoor Neutrophils/100 WBC (Bld) 73.1 % Normal 43.0-75.0 [facility] Comment on above: Performed By: #### D IG #### [facility] [address] [place] [address] Dr. Sayda Kapoor Platelet mean volume (Bld) [Entitic vol] 9.5 fL Normal 9.5-13.5 [facility] Comment on above: Performed By: #### D IG #### [facility] [address] [place] [address] Dr. Sayda Kapoor PLT 281 103/ul Normal 150-450 [facility] Comment on above: Performed By: #### D IG #### [facility] [address] [place] [address] Dr. Sayda Kapoor RBC 3.61 106/ul Critically low 4.70-6.10 [facility] Comment on above: Performed By: #### D IG #### [facility] [address] [address] [address] Sayda Kapoor WBC 7.6 103/ul Normal 4.0-11.0 [facility] Comment on above: Performed By: #### D IG #### [facility] [address] [place] [address] Dr. Sayda Kapoor DIGOXINon 10-23-2022 DIG 0.9 ng/mL Normal 0.9-2.0 [facility] Comment on above: Performed By: #### D IG #### [facility] [address] [place] [address] Dr. Sayda Kapoor PROF 14(COMP METB)on 023 Albumin [Mass/Vol] 2.4 g/dL Critically low 3.4-5.0 [facility] e [facility] Comment on above: Performed By: #### C MREP #### [facility] [address] [place] [address] Dr. Sayda Kapoor Albumin/Globulin [Mass ratio] 0.9 {ratio} Normal [facility] Comment on above: Performed By: #### C MREP #### [facility] [address] [place] [address] Dr. Sayda Kapoor ALP [Catalytic activity/Vol] 62 U/L Normal 46-116 [facility] Comment on above: Performed By: #### C MREP #### [facility] [address] [place] [address] Dr. Sayda Kapoor ALT [Catalytic activity/Vol] 33 U/L Normal 16-63 [facility] Comment on above: Performed By: #### C MREP #### [facility] [address] [place] [address] Dr. Sayda Kapoor Anion gap [Moles/Vol] 8.2 mmol/L Normal [facility] Comment on above: Performed By: #### C MREP #### [facility] [address] [place] [address] Dr. Sayda Kapoor AST [Catalytic activity/Vol] 15 U/L Normal 15-37 [facility] Comment on above: Performed By: #### C MREP #### [facility] [address] [place] [address] Dr. Sayda Kapoor Bilirubin [Mass/Vol] 1.3 mg/dL Critically high 0.2-1.0 [facility] Comment on above: Performed By: #### C MREP #### [facility] [address] [address] [address] Sayda Kapoor Calcium [Mass/Vol] 7.6 mg/dL Critically low 8.5-10.1 [facility] Comment on above: Performed By: #### C MREP #### [facility] [address] [address] [address] Sayda Kapoor Chloride [Moles/Vol] 105 mmol/L Normal 98-107 [facility] Comment on above: Performed By: #### C MREP #### [facility] [address] [address] [address] Sayda Kapoor CO2 [Moles/Vol] 30.2 mmol/L Normal 21.0-32.0 [facility] Comment on above: Performed By: #### C MREP #### [facility] [address] [place] [address] Dr. Sayda Kapoor Creatinine [Mass/Vol] 1.07 mg/dL Normal 0.70-1.30 [facility] Comment on above: Performed By: #### C MREP #### [facility] [address] [place] [address] Dr. Sayda Kapoor EGFR-AF EGYPTIAN >60 Normal >=60 [facility] Comment on above: Performed By: #### C MREP #### [facility] [address] [place] [address] Dr. Sayda Kapoor EGFR-NON AF EGYPTIAN >60 Normal >=60 [facility] Comment on above: Performed By: #### C MREP #### [facility] [address] [address] [address] Sayda Kapoor Globulin (S) [Mass/Vol] 2.7 g/dL Normal [facility] Comment on above: Performed By: #### C MREP #### [facility] [address] [address] [address] Sayda Kapoor Glucose [Mass/Vol] 101 mg/dL Normal 74-106 [facility] Comment on above: Performed By: #### C MREP #### [facility] [address] [address] [address] Sayda Kapoor Potassium [Moles/Vol] 3.4 mmol/L Critically low 3.5-5.1 [facility] Comment on above: Performed By: #### C MREP #### [facility] [address] [place] [address] Dr. Sayda Kapoor Protein [Mass/Vol] 5.1 g/dL Critically low 6.4-8.2 [facility] Comment on above: Performed By: #### C MREP #### [facility] [address] [address] [address] Sayda Kapoor Sodium [Moles/Vol] 140 mmol/L Normal 136-145 [facility] Comment on above: Performed By: #### C MREP #### [facility] [address] [place] [address] Dr. Sayda Kapoor Urea nitrogen [Mass/Vol] 20.0 mg/dL Critically high 7.0-18.0 [facility] Comment on above: Performed By: #### C MREP #### [facility] [address] [place] [address] Dr. Sayda Kapoor Urea nitrogen/Creatinine [Mass ratio] 18.7 mg/mg Normal [facility] Comment on above: Performed By: #### C MREP #### [facility] [address] [place] [address] Dr. Sayda Kapoor T3, TOTAL (TRIIODOTHYRONINE) on 10-23-2022 T3, TOTAL 93 ng/dL Normal 71-180 [facility] Comment on above: Performed By: #### B BULK FILLER, CMP, LIPA, TONI #### [facility] [address] [place] [address] Dr. Sayda Kapoor BNPon 10-22-2022 Natriuretic peptide B (Bld) [Mass/Vol] 2419.0 pg/mL Critically high <=900.0 [facility] Comment on above: Performed By: #### B BULK FILLER, CMP, LIPA, TONI #### [facility] [address] [place] [address] Dr. Sayda Kapoor CARDIAC BETTE 3-6on 3 CK [Catalytic activity/Vol] 88 U/L Normal 39-308 [facility] Comment on above: Performed By: #### Q NTTB #### [facility] [address] [place] [address] Dr. Sayda Kapoor CK.MB [Mass/Vol] 1.44 ng/mL Normal <=3.60 [facility] Comment on above: Performed By: #### Q NTTB #### [facility] [address] [place] [address] Dr. Sayda Kapoor HSTROP 15.1 pg/mL Normal 4.0-76.1 [facility] Comment on above: Result Comment: CUT- OFF POINTS HAVE BEEN ESTABLISHED BASED ON THE FOURTH UNIVERSAL DEFINITIONS OF MYOCARDIAL INFARCTION. THE UPPER REFERENCE LIMIT (URL) OF TROPONIN, DEFINED THE 99TH PERCENTILE OF cTnI DISTRIBUTION IN A REFERENCE POPULATION, HAS BEEN CONFIRMED THE DECISION THRESHOLD FOR AK DIAGNOSIS. Performed By: #### Q NTTB #### [facility] [address] [place] [address] Dr. Sayda Kapoor CBC AUTO DIFFon 10-22-2022 BASO # 0.1 103/ul Normal 0.0-0.1 [facility] Comment on above: Performed By: #### C BC #### [facility] [address] [place] [address] Dr. Sayda Kapoor Basophils/100 WBC (Bld) 0.5 % Normal 0.2-2.0 [facility] Comment on above: Performed By: #### C BC #### [facility] [address] [place] [address] Dr. Sayda Kapoor EO # 0.2 103/ul Normal 0.0-0.7 [facility] Comment on above: Performed By: #### C BC #### [facility] [address] [place] [address] Dr. Sayda Kapoor Eosinophils/100 WBC (Bld) 1.8 % Normal 0.9-7.0 [facility] Comment on above: Performed By: #### C BC #### [facility] [address] [place] [address] Dr. Sayda Kapoor Erythrocyte distribution width (RBC) [Ratio] 15.7 % Critically high 11.0-15.0 [facility] Comment on above: Performed By: #### C BC #### [facility] [address] [place] [address] Dr. Sayda Kapoor Hematocrit (Bld) [Volume fraction] 27.0 % Critically low 42.0-54.0 [facility] Comment on above: Performed By: #### C BC #### [facility] [address] [place] [address] Dr. Sayda Kapoor Hemoglobin (Bld) [Mass/Vol] 7.9 g/dL Critically low 14.0-18.0 [facility] Comment on above: Performed By: #### C BC #### [facility] [address] [place] [address] Dr. Sayda Kapoor IG # 0.06 10e3/ul Critically high 0.00-0.03 [facility] Comment on above: Performed By: #### C BC #### [facility] [address] [place] [address] Dr. Sayda Kapoor IG % 0.6 % Critically high 0.0-0.5 [facility] Comment on above: Performed By: #### C BC #### [facility] [address] [place] [address] Dr. Sayda Kapoor LYMPH # 1.2 103/ul Normal 1.2-3.8 [facility] Comment on above: Performed By: #### C BC #### [facility] [address] [place] [address] Dr. Sayda Kapoor Lymphocytes/100 WBC (Bld) 13.0 % Critically low 20.5-60.0 [facility] Comment on above: Performed By: #### C BC #### [facility] [address] [place] [address] Dr. Sayda Kapoor MANUAL DIFF REQ NO Normal [facility] Comment on above: Performed By: #### C BC #### [facility] [address] [place] [address] Dr. Sayda Kapoor MCH (RBC) [Entitic mass] 23.1 pg Critically low 25.9-34.0 [facility] Comment on above: Performed By: #### C BC #### [facility] [address] [place] [address] Dr. Sayda Kapoor MCHC (RBC) [Mass/Vol] 29.3 g/dL Critically low 29.9-35.2 [facility] Comment on above: Performed By: #### C BC #### [facility] [address] [place] [address] Dr. Sayda Kapoor MCV (RBC) [Entitic vol] 78.9 fL Critically low 80.0-94.0 [facility] Comment on above: Performed By: #### C BC #### [facility] [address] [place] [address] Dr. Sayda Kapoor MONO # 0.8 103/ul Normal 0.3-0.8 [facility] Comment on above: Performed By: #### C BC #### [facility] [address] [place] [address] Dr. Sayda Kapoor Monocytes/100 WBC (Bld) 8.0 % Normal 1.7-12.0 [facility] Comment on above: Performed By: #### C BC #### [facility] [address] [place] [address] Dr. Sayda Kapoor NEUT # 7.2 103/ul Critically high 1.4-6.5 [facility] Comment on above: Performed By: #### C BC #### [facility] [address] [place] [address] Dr. Sayda Kapoor Neutrophils/100 WBC (Bld) 76.1 % Critically high 43.0-75.0 [facility] Comment on above: Performed By: #### C BC #### [facility] [address] [place] [address] Dr. Sayda Kapoor Platelet mean volume (Bld) [Entitic vol] 9.9 fL Normal 9.5-13.5 [facility] Comment on above: Performed By: #### C BC #### [facility] [address] [place] [address] Dr. Sayda Kapoor PLT 320 103/ul Normal 150-450 [facility] Comment on above: Performed By: #### C BC #### [facility] [address] [place] [address] Dr. Sayda Kapoor RBC 3.42 106/ul Critically low 4.70-6.10 [facility] Comment on above: Performed By: #### C BC #### [facility] [address] [place] [address] Dr. Syada Kapoor WBC 9.4 103/ul Normal 4.0-11.0 [facility] Comment on above: Performed By: #### C BC #### [facility] [address] [place] [address] Dr. Sayda Kapoor BASO # 0.0 103/ul Normal 0.0-0.1 [facility] Comment on above: Performed By: #### D IG #### [facility] [facility] [address] [place] [address] Dr. Sayda Kapoor Basophils/100 WBC (Bld) 0.4 % Normal 0.2-2.0 [facility] Comment on above: Performed By: #### D IG #### [facility] [address] [place] [address] Dr. Sayda Kapoor EO # 0.1 103/ul Normal 0.0-0.7 [facility] Comment on above: Performed By: #### D IG #### [facility] [address] [place] [address] Dr. Sayda Kapoor Eosinophils/100 WBC (Bld) 1.0 % Normal 0.9-7.0 [facility] Comment on above: Performed By: #### D IG #### [facility] [address] [place] [address] Dr. Sayda Kapoor Erythrocyte distribution width (RBC) [Ratio] 15.8 % Critically high 11.0-15.0 [facility] Comment on above: Performed By: #### D IG #### [facility] [address] [place] [address] Dr. Sayda Kapoor Hematocrit (Bld) [Volume fraction] 28.0 % Critically low 42.0-54.0 [facility] Comment on above: Performed By: #### D IG #### [facility] [address] [place] [address] Dr. Sayda Kapoor Hemoglobin (Bld) [Mass/Vol] 8.0 g/dL Critically low 14.0-18.0 [facility] Comment on above: Performed By: #### D IG #### [facility] [address] [place] [address] Dr. Sayda Kapoor IG # 0.03 10e3/ul Normal 0.00-0.03 [facility] Comment on above: Performed By: #### D IG #### [facility] [address] [place] [address] Dr. Sayda Kapoor IG % 0.4 % Normal 0.0-0.5 [facility] Comment on above: Performed By: #### D IG #### [facility] [address] [place] [address] Dr. Sayda Kapoor LYMPH # 1.2 103/ul Normal 1.2-3.8 [facility] Comment on above: Performed By: #### D IG #### [facility] [address] [place] [address] Dr. Sayda Kapoor Lymphocytes/100 WBC (Bld) 14.3 % Critically low 20.5-60.0 [facility] Comment on above: Performed By: #### D IG #### [facility] [address] [place] [address] Dr. Sayda Kapoor MANUAL DIFF REQ NO Normal [facility] Comment on above: Performed By: #### D IG #### [facility] [address] [place] [address] Dr. Sayda Kapoor MCH (RBC) [Entitic mass] 23.3 pg Critically low 25.9-34.0 [facility] Comment on above: Performed By: #### D IG #### [facility] [address] [place] [address] Dr. Sayda Kapoor MCHC (RBC) [Mass/Vol] 28.6 g/dL Critically low 29.9-35.2 [facility] Comment on above: Performed By: #### D IG #### [facility] [address] [address] [address] Sayda Kapoor MCV (RBC) [Entitic vol] 81.4 fL Normal 80.0-94.0 [facility] Comment on above: Performed By: #### D IG #### [facility] [address] [address] [address] Sayda Kapoor MONO # 0.6 103/ul Normal 0.3-0.8 [facility] Comment on above: Performed By: #### D IG #### [facility] [address] [address] [address] Sayda Kapoor Monocytes/100 WBC (Bld) 7.1 % Normal 1.7-12.0 [facility] Comment on above: Performed By: #### D IG #### [facility] [address] [address] [address] Sayda Kapoor NEUT # 6.2 103/ul Normal 1.4-6.5 [facility] Comment on above: Performed By: #### D IG #### [facility] [address] [address] [address] Sayda Kapoor Neutrophils/100 WBC (Bld) 76.8 % Critically high 43.0-75.0 [facility] Comment on above: Performed By: #### D IG #### [facility] [address] [address] [address] Sayda Kapoor Platelet mean volume (Bld) [Entitic vol] 9.5 fL Normal 9.5-13.5 [facility] Comment on above: Performed By: #### D IG #### [facility] [address] [address] [address] Sayda Kapoor PLT 252 103/ul Normal 150-450 [facility] Comment on above: Performed By: #### D IG #### [facility] [address] [address] [address] Sayda Kapoor RBC 3.44 106/ul Critically low 4.70-6.10 [facility] Comment on above: Performed By: #### D IG #### [facility] [address] [address] [address] Sayda Kapoor WBC 8.1 103/ul Normal 4.0-11.0 [facility] Comment on above: Performed By: #### D IG #### [facility] [address] [address] [address] Sayda Kapoor CTA CHEST WO W CONon 023 CTA CHEST WO W CON EXAMINATION: CTA TILA ST WO W CON HISTORY: Paroxysmal atrial fibrillation [...] CL POTTS Date: 2022-10-22 09:30 Normal The [facility] CULTURE URINEon 10-22-2022 CULTURE URINE Culture Observations : NO GROWTH. Normal [facility] Comment on above: Performed By: #### D IG #### [facility] [address] [address] [address] Sayda Kapoor DIGOXINon 10-22-2022 DIG 1.4 ng/mL Normal 0.9-2.0 [facility] Comment on above: Performed By: #### B BULK FILLER, CMP, LIPA, TONI #### [facility] [address] [address] [address] Sayda Kapoor ECHOCARDIO M/2D COMPLETEon 0 10-22-2022 ECHOCARDIO M/2D COMPLETE Patient: AYO ALICIA Exam Date: 10/22/2022 : 1960 Gender:M Ordering : DR PERICO MCCABE . Admission #: [id number] Family : DR GLORIA PAGAN M.D. Order #: [id number] CLICK HERE TO VIEW EXAM ECHOCARDIOGRAM REPORT [...] Tacos Whitney M.D. on 10/22/2022 at 16:41 [facility] PROF 14(COMP METB)on 023 Albumin [Mass/Vol] 2.6 g/dL Critically low 3.4-5.0 [facility] Comment on above: Performed By: #### B BULK FILLER, CMP, LIPA, TONI #### [facility] [address] [place] [address] Dr. Sayda Kapoor Albumin/Globulin [Mass ratio] 1.0 {ratio} Normal [facility] Comment on above: Performed By: #### B BULK FILLER, CMP, LIPA, TONI #### [facility] [address] [place] [address] Dr. Sayda Kapoor ALP [Catalytic activity/Vol] 61 U/L Normal 46-116 [facility] Comment on above: Performed By: #### B BULK FILLER, CMP, LIPA, TONI #### [facility] [address] [place] [address] Dr. Sayda Kapoor ALT [Catalytic activity/Vol] 37 U/L Normal 16-63 [facility] Comment on above: Performed By: #### B BULK FILLER, CMP, LIPA, TONI #### [facility] [address] [place] [address] Dr. Sayda Kapoor Anion gap [Moles/Vol] 11.4 mmol/L Normal Th [facility] Comment on above: Performed By: #### B BULK FILLER, CMP, LIPA, TONI #### [facility] [address] [place] [address] Dr. Sayda Kapoor AST [Catalytic activity/Vol] 20 U/L Normal 15-37 [facility] Comment on above: Performed By: #### B BULK FILLER, CMP, LIPA, TONI #### [facility] [address] [place] [address] Dr. Sayda Kapoor Bilirubin [Mass/Vol] 1.4 mg/dL Critically high 0.2-1.0 [facility] Comment on above: Performed By: #### B BULK FILLER, CMP, LIPA, TNOI #### [facility] [address] [place] [address] Dr. Sayda Kapoor Calcium [Mass/Vol] 8.1 mg/dL Critically low 8.5-10.1 [facility] Comment on above: Performed By: #### B BULK FILLER, CMP, LIPA, TONI #### [facility] [address] [address] [address] Sayda Kapoor Chloride [Moles/Vol] 104 mmol/L Normal 98-107 [facility] Comment on above: Performed By: #### B BULK FILLER, CMP, LIPA, TONI #### [facility] [address] [address] [address] Sayda Kapoor CO2 [Moles/Vol] 27.6 mmol/L Normal 21.0-32.0 [facility] Comment on above: Performed By: #### B BULK FILLER, CMP, LIPA, TONI #### [facility] [address] [place] [address] Dr. Sayda Kapoor Creatinine [Mass/Vol] 1.07 mg/dL Normal 0.70-1.30 [facility] Comment on above: Performed By: #### B BULK FILLER, CMP, LIPA, TONI #### [facility] [address] [place] [address] Dr. Sayda Kapoor EGFR-AF EGYPTIAN >60 Normal >=60 [facility] Comment on above: Performed By: #### B BULK FILLER, CMP, LIPA, TONI #### [facility] [address] [place] [address] Dr. Sayda Kapoor EGFR-NON AF EGYPTIAN >60 Normal >=60 [facility] Comment on above: Performed By: #### B BULK FILLER, CMP, LIPA, TONI #### [facility] [address] [place] [address] Dr. Sayda Kapoor Globulin (S) [Mass/Vol] 2.5 g/dL Normal [facility] Comment on above: Performed By: #### B BULK FILLER, CMP, LIPA, TONI #### [facility] [address] [place] [address] Dr. Sayda Kapoor Glucose [Mass/Vol] 96 mg/dL Normal 74-106 [facility] Comment on above: Performed By: #### B BULK FILLER, CMP, LIPA, TONI #### [facility] [address] [place] [address] Dr. Sayda Kapoor Potassium [Moles/Vol] 4.0 mmol/L Normal 3.5-5.1 [facility] Comment on above: Performed By: #### B BULK FILLER, CMP, LIPA, TONI #### [facility] [address] [place] [address] Dr. Sayda Kapoor Protein [Mass/Vol] 5.1 g/dL Critically low 6.4-8.2 Th [facility] Comment on above: Performed By: #### B BULK FILLER, CMP, LIPA, TONI #### [facility] [address] [place] [address] Dr. Sayda Kapoor Sodium [Moles/Vol] 139 mmol/L Normal 136-145 [facility] Comment on above: Performed By: #### B BULK FILLER, CMP, LIPA, TONI #### [facility] [address] [place] [address] Dr. Sayda Kapoor Urea nitrogen [Mass/Vol] 25.0 mg/dL Critically high 7.0-18.0 [facility] Comment on above: Performed By: #### B BULK FILLER, CMP, LIPA, TONI #### [facility] [address] [place] [address] Dr. Sayda Kapoor Urea nitrogen/Creatinine [Mass ratio] 23.4 mg/mg Normal [facility] Comment on above: Performed By: #### B BULK FILLER, CMP, LIPA, TONI #### [facility] [address] [place] [address] Dr. Sayda Kapoor UA RANDOM W/MICROSCOPICon BACTERIA NONE SEEN Normal NONE SEEN [facility] Comment on above: Performed By: #### D IG #### [facility] [address] [place] [address] Dr. Sayda Kapoor Bilirubin Ql (U) Negative Normal NEGATIVE [facility] Comment on above: Performed By: #### D IG #### [facility] [address] [place] [address] Dr. Sayda Kapoor CAST NONE SEEN Normal NONE SEEN [facility] Comment on above: Performed By: #### D IG #### [facility] [address] [place] [address] Dr. Sayda Kapoor Clarity (U) CLEAR Normal CLEAR [facility] Comment on above: Performed By: #### D IG #### [facility] [address] [place] [address] Dr. Sayda Kapoor Color (U) YELLOW Normal YELLOW [facility] Comment on above: Performed By: #### D IG #### [facility] [address] [place] [address] Dr. Sayda Kapoor Crystals LM Nom (Urine sed) NONE SEEN Normal NONE SEEN [facility] Comment on above: Performed By: #### D IG #### [facility] [address] [place] [address] Dr. Sayda Kapoor Epithelial cells LM Ql (Urine sed) NONE SEEN Normal NONE SEEN /RARE [facility] Comment on above: Performed By: #### D IG #### [facility] [address] [place] [address] Dr. Sayda Kapoor Glucose Ql (U) Negative Normal NEGATIVE [facility] Comment on above: Performed By: #### D IG #### [facility] [address] [place] [address] Dr. Sayda Kapoor Hemoglobin Ql (U) TRACE-INTACT Abnormal NEGATIVE [facility] Comment on above: Performed By: #### D IG #### [facility] [address] [place] [address] Dr. Sayda Kapoor Ketones Ql (U) Negative Normal NEGATIVE [facility] Comment on above: Performed By: #### D IG #### [facility] [address] [place] [address] Dr. Sayda Kapoor LEUKOCYTES Negative Normal NEGATIVE [facility] Comment on above: Performed By: #### D IG #### [facility] [address] [place] [address] Dr. Sayda Kapoor MUCOUS TRACE Abnormal NONE SEEN [facility] Comment on above: Performed By: #### D IG #### [facility] [address] [place] [address] Dr. Sayda Kapoor Nitrite Ql (U) Negative Normal NEGATIVE [facility] Comment on above: Performed By: #### D IG #### [facility] [address] [place] [address] Dr. Sayda Kapoor pH (U) 6.0 [pH] Normal 5-9 [facility] Comment on above: Performed By: #### D IG #### [facility] [address] [place] [address] Dr. Sayda Kapoor RBC 0-2 Normal 0-2 [facility] Comment on above: Performed By: #### D IG #### [facility] [address] [place] [address] Dr. Sayda Kapoor SPEC GRAVITY 1.020 Normal 1.005-<=1.0 25 [facility] Comment on above: Performed By: #### D IG #### [facility] [address] [place] [address] Dr. Sayda Kapoor UA PROTEIN 30 mg/dl Abnormal NEGATIVE/ TRACE [facility] Comment on above: Performed By: #### D IG #### [facility] [address] [place] [address] Dr. Sayda Kapoor Urobilinogen Qn (U) 1.0 {Rosi'U}/dL Normal 0.2 - 1. 0 [facility] Comment on above: Performed By: #### D IG #### [facility] [address] [place] [address] Dr. Sayda Kapoor WBC NONE SEEN Normal NONE SEEN [facility] Comment on above: Performed By: #### D IG #### [facility] [address] [place] [address] Dr. Sayda Kapoor BNPon 10-21-2022 Natriuretic peptide B (Bld) [Mass/Vol] 4504.0 pg/mL Critically high <=900.0 [facility] Comment on above: Performed By: #### Q NTTB #### [facility] [address] [place] [address] Dr. Sayda Kapoor CARDIAC BETTE 3-6on 3 CK [Catalytic activity/Vol] 111 U/L Normal 39-308 [facility] Comment on above: Performed By: #### C MREP #### [facility] [address] [address] [address] Sayda Kapoor CK.MB [Mass/Vol] 1.72 ng/mL Normal <=3.60 [facility] Comment on above: Performed By: #### C MREP #### [facility] [address] [address] [address] Sayda Kapoor HSTROP 15.2 pg/mL Normal 4.0-76.1 [facility] Comment on above: Result Comment: CUT- OFF POINTS HAVE BEEN ESTABLISHED BASED ON THE FOURTH UNIVERSAL DEFINITIONS OF MYOCARDIAL INFARCTION. THE UPPER REFERENCE LIMIT (URL) OF TROPONIN, DEFINED THE 99TH PERCENTILE OF cTnI DISTRIBUTION IN A REFERENCE POPULATION, HAS BEEN CONFIRMED THE DECISION THRESHOLD FOR AK DIAGNOSIS. Performed By: #### C MREP #### [facility] [address] [place] [address] Dr. Sayda Kapoor CARDIAC BETTE ADMITon 023 CK [Catalytic activity/Vol] 114 U/L Normal 39-308 [facility] Comment on above: Performed By: #### Q NTTB #### [facility] [address] [place] [address] Dr. Sayda Kapoor CK.MB [Mass/Vol] 1.94 ng/mL Normal <=3.60 [facility] Comment on above: Performed By: #### Q NTTB #### [facility] [address] [place] [address] Dr. Sayda Kapoor HSTROP 17.4 pg/mL Normal 4.0-76.1 [facility] Comment on above: Result Comment: CUT- OFF POINTS HAVE BEEN ESTABLISHED BASED ON THE FOURTH UNIVERSAL DEFINITIONS OF MYOCARDIAL INFARCTION. THE UPPER REFERENCE LIMIT (URL) OF TROPONIN, DEFINED THE 99TH PERCENTILE OF cTnI DISTRIBUTION IN A REFERENCE POPULATION, HAS BEEN CONFIRMED THE DECISION THRESHOLD FOR AK DIAGNOSIS. Performed By: #### Q NTTB #### [facility] [address] [place] [address] Dr. Sayda Kapoor TAIWO 105 ng/mL Critically high 16-96 [facility] Comment on above: Performed By: #### Q NTTB #### [facility] [address] [place] [address] Dr. Sayda Kapoor CBC AUTO DIFFon 10-21-2022 BASO # 0.0 103/ul Normal 0.0-0.1 [facility] Comment on above: Performed By: #### C MREP #### [facility] [address] [place] [address] Dr. Sayda Kapoor Basophils/100 WBC (Bld) 0.3 % Normal 0.2-2.0 [facility] Comment on above: Performed By: #### C MREP #### [facility] [address] [place] [address] Dr. Sayda Kapoor EO # 0.0 103/ul Normal 0.0-0.7 [facility] Comment on above: Performed By: #### C MREP #### [facility] [address] [place] [address] Dr. Sayda Kapoor Eosinophils/100 WBC (Bld) 0.1 % Critically low 0.9-7.0 [facility] Comment on above: Performed By: #### C MREP #### [facility] [address] [place] [address] Dr. Sayda Kapoor Erythrocyte distribution width (RBC) [Ratio] 15.6 % Critically high 11.0-15.0 [facility] Comment on above: Performed By: #### C MREP #### [facility] [address] [place] [address] Dr. Sayda Kapoor Hematocrit (Bld) [Volume fraction] 29.7 % Critically low 42.0-54.0 [facility] Comment on above: Performed By: #### C MREP #### [facility] [address] [place] [address] Dr. Sayda Kapoor Hemoglobin (Bld) [Mass/Vol] 8.7 g/dL Critically low 14.0-18.0 [facility] Comment on above: Performed By: #### C MREP #### [facility] [address] [place] [address] Dr. Sayda Kapoor IG # 0.06 10e3/ul Critically high 0.00-0.03 [facility] Comment on above: Performed By: #### C MREP #### [facility] [address] [address] [address] Sayda Kapoor IG % 0.6 % Critically high 0.0-0.5 [facility] Comment on above: Performed By: #### C MREP #### [facility] [address] [address] [address] Sayda Kapoor LYMPH # 1.0 103/ul Critically low 1.2-3.[address] [facility] Comment on above: Performed By: #### C MREP #### [facility] [address] [address] [address] Sayda Kapoor Lymphocytes/100 WBC (Bld) 9.0 % Critically low 20.5-60.0 [facility] Comment on above: Performed By: #### C MREP #### [facility] [address] [place] [address] Dr. Sayda Kapoor MANUAL DIFF REQ NO Normal [facility] Comment on above: Performed By: #### C MREP #### [facility] [address] [address] [address] Sayda Kapoor MCH (RBC) [Entitic mass] 23.6 pg Critically low 25.9-34.0 [facility] Comment on above: Performed By: #### C MREP #### [facility] [address] [place] [address] Dr. Sayda Kapoor MCHC (RBC) [Mass/Vol] 29.3 g/dL Critically low 29.9-35.2 [facility] Comment on above: Performed By: #### C MREP #### [facility] [address] [address] [address] Sayda Kapoor MCV (RBC) [Entitic vol] 80.5 fL Normal 80.0-94.0 [facility] Comment on above: Performed By: #### C MREP #### [facility] [address] [address] [address] Sayda Kapoor MONO # 0.7 103/ul Normal 0.3-0.8 [facility] Comment on above: Performed By: #### C MREP #### [facility] [address] [address] [address] Sayda Kapoor Monocytes/100 WBC (Bld) 6.0 % Normal 1.7-12.0 [facility] Comment on above: Performed By: #### C MREP #### [facility] [address] [place] [address] Dr. Sayda Kapoor NEUT # 9.1 103/ul Critically high 1.4-6.5 [facility] Comment on above: Performed By: #### C MREP #### [facility] [address] [place] [address] Dr. Sayda Kapoor Neutrophils/100 WBC (Bld) 84.0 % Critically high 43.0-75.0 [facility] Comment on above: Performed By: #### C MREP #### [facility] [address] [place] [address] Dr. Sayda Kapoor Platelet mean volume (Bld) [Entitic vol] 10.1 fL Normal 9.5-13.5 [facility] Comment on above: Performed By: #### C MREP #### [facility] [address] [place] [address] Dr. Sayda Kapoor PLT 374 103/ul Normal 150-450 [facility] Comment on above: Performed By: #### C MREP #### [facility] [address] [place] [address] Dr. Sayda Kapoor RBC 3.69 106/ul Critically low 4.70-6.10 [facility] Comment on above: Performed By: #### C MREP #### [facility] [address] [place] [address] Dr. Sayda Kapoor WBC 10.8 103/ul Normal 4.0-11.0 [facility] Comment on above: Performed By: #### C MREP #### [facility] [address] [place] [address] Dr. Sayda Kapoor Covid-19 PCR ([facility])on 10-03 SARS-CoV-2 (COVID-19) RNA KAT+probe Ql (Unsp spec) Not detected Normal NOT DETECTED [facility] Comment on above: Result Comment: When [...] for this test is supported by the [place] of [employer] and Human Service's declaration that [...] used). Performed By: #### D IG #### [facility] [address] [place] [address] Dr. Sayda Kapoor LACTATE/LACTIC ACIDon 2022 Lactate [Moles/Vol] 2.5 mmol/L Critically high 0.4-1.9 [facility] Comment on above: Performed By: #### Q NTTB #### [facility] [address] [place] [address] Dr. Sayda Kapoor Lactate [Moles/Vol] 2.3 mmol/L Critically high 0.4-1.9 [facility] Comment on above: Performed By: #### B BULK FILLER, CMP, LIPA, TONI #### [facility] [address] [place] [address] Dr. Sayda Kapoor PROF 14(COMP METB)on 023 Albumin [Mass/Vol] 2.8 g/dL Critically low 3.4-5.0 Th e [facility] Comment on above: Performed By: #### Q NTTB #### [facility] [address] [place] [address] Dr. Sayda Kapoor Albumin/Globulin [Mass ratio] 0.9 {ratio} Normal [facility] Comment on above: Performed By: #### Q NTTB #### [facility] [address] [address] [address] Sayda Kapoor ALP [Catalytic activity/Vol] 66 U/L Normal 46-116 [facility] Comment on above: Performed By: #### Q NTTB #### [facility] [address] [address] [address] Sayda Kapoor ALT [Catalytic activity/Vol] 41 U/L Normal 16-63 [facility] Comment on above: Performed By: #### Q NTTB #### [facility] [address] [address] [address] Sayda Kapoor Anion gap [Moles/Vol] 11.9 mmol/L Normal [facility] Comment on above: Performed By: #### Q NTTB #### [facility] [address] [place] [address] Dr. Sayda Kapoor AST [Catalytic activity/Vol] 22 U/L Normal 15-37 [facility] Comment on above: Performed By: #### Q NTTB #### [facility] [address] [place] [address] Dr. Sayda Kapoor Bilirubin [Mass/Vol] 1.3 mg/dL Critically high 0.2-1.0 [facility] Comment on above: Performed By: #### Q NTTB #### [facility] [address] [place] [address] Dr. Sayda Kapoor Calcium [Mass/Vol] 8.1 mg/dL Critically low 8.5-10.1 [facility] Comment on above: Performed By: #### Q NTTB #### [facility] [address] [place] [address] Dr. Sayda Kapoor Chloride [Moles/Vol] 105 mmol/L Normal 98-107 [facility] Comment on above: Performed By: #### Q NTTB #### [facility] [address] [address] [address] Sayda Kapoor CO2 [Moles/Vol] 27.4 mmol/L Normal 21.0-32.0 [facility] Comment on above: Performed By: #### Q NTTB #### [facility] [address] [address] [address] Sayda Kapoor Creatinine [Mass/Vol] 1.44 mg/dL Critically high 0.70-1.30 [facility] Comment on above: Performed By: #### Q NTTB #### [facility] [address] [address] [address] Sayda Kapoor EGFR-AF EGYPTIAN 60 mL/min/1.73m2 Normal >=60 [facility] Comment on above: Performed By: #### Q NTTB #### [facility] [address] [address] [address] Sayda Kapoor EGFR-NON AF EGYPTIAN 50 mL/min/1.73m2 Critically low >=60 [facility] Comment on above: Performed By: #### Q NTTB #### [facility] [address] [address] [address] Sayda Kapoor Globulin (S) [Mass/Vol] 3.0 g/dL Normal [facility] Comment on above: Performed By: #### Q NTTB #### [facility] [address] [address] [address] Sayda Kapoor Glucose [Mass/Vol] 132 mg/dL Critically high 74-106 [facility] Comment on above: Performed By: #### Q NTTB #### [facility] [address] [address] [address] Sayda Kapoor Potassium [Moles/Vol] 4.3 mmol/L Normal 3.5-5.1 [facility] Comment on above: Performed By: #### Q NTTB #### [facility] [address] [address] [address] Sayda Kapoor Protein [Mass/Vol] 5.8 g/dL Critically low 6.4-8.2 [facility] Comment on above: Performed By: #### Q NTTB #### [facility] [address] [address] [address] Sayda Kapoor Sodium [Moles/Vol] 140 mmol/L Normal 136-145 [facility] Comment on above: Performed By: #### Q NTTB #### [facility] [address] [address] [address] Sayda Kapoor Urea nitrogen [Mass/Vol] 31.0 mg/dL Critically high 7.0-18.0 [facility] Comment on above: Performed By: #### Q NTTB #### [facility] [address] [address] [address] Sayda Kapoor Urea nitrogen/Creatinine [Mass ratio] 21.5 mg/mg Normal [facility] Comment on above: Performed By: #### Q NTTB #### [facility] [address] [place] [address] Dr. Sayda Kapoor T4on 10-21-2022 T4 [Mass/Vol] 5.00 ug/dL Normal 4.50-12.10 The [facility] Comment on above: Performed By: #### Q NTTB #### [facility] [address] [place] [address] Dr. Sayda Kapoor TSHon 10-21-2022 TSH 0.918 uIU/mL Normal 0.358-3.740 [facility] Comment on above: Performed By: #### Q NTTB #### [facility] [address] [place] [address] Dr. Sayda Kapoor XR CHEST 1 Von 10-21-2022 XR CHEST 1 V EXAM: XR CHEST 1 V HISTORY: SHORTNESS OF BREATH COMPARISON: None. TECHNIQUE: Portable chest FINDINGS: IMPRESSION: Poor inspiratory effort. No focal consolidation or infiltrate. The heart is not enlarged. No pneumothorax or discrete pleural effusion. Electronically authenticated by: CUBA RO Date: 2022-10-21 18:09 Normal The [facility] CREATININEon 10-19-2022 Creatinine [Mass/Vol] 1.21 mg/dL Normal 0.70-1.30 The [facility] Comment on above: Performed By: #### B BULK FILLER, CMP, LIPA, TONI #### [facility] [address] [place] [address] Dr. Sayda Kapoor EGFR-AF EGYPTIAN >60 Normal >=60 [facility] Comment on above: Performed By: #### B BULK FILLER, CMP, LIPA, TONI #### [facility] [address] [place] [address] Dr. Sayda Kapoor EGFR-NON AF EGYPTIAN >60 Normal >=60 [facility] Comment on above: Performed By: #### B BULK FILLER, CMP, LIPA, TONI #### [facility] [address] [place] [address] Dr. Sayda Kapoor Consultation Noteon 08-05-20 22 Consultation Note [id number]:[id number] Normal [facility] CBC AUTO DIFFon 07-26-2022 BASO # 0.1 103/ul Normal 0.0-0.1 [facility] Comment on above: Performed By: #### B BULK FILLER, CMP, LIPA, TONI #### [facility] [address] [place] [address] Dr. Sayda Kapoor Basophils/100 WBC (Bld) 0.8 % Normal 0.2-2.0 [facility] Comment on above: Performed By: #### B BULK FILLER, CMP, LIPA, TONI #### [facility] [address] [place] [address] Dr. Sayda Kapoor EO # 0.2 103/ul Normal 0.0-0.7 [facility] Comment on above: Performed By: #### B BULK FILLER, CMP, LIPA, TONI #### [facility] [address] [place] [address] Dr. Sayda Kapoor Eosinophils/100 WBC (Bld) 2.9 % Normal 0.9-7.0 [facility] Comment on above: Performed By: #### B BULK FILLER, CMP, LIPA, TONI #### [facility] [address] [place] [address] Dr. Sayda Kapoor Erythrocyte distribution width (RBC) [Ratio] 14.3 % Normal 11.0-15.0 The [facility] Comment on above: Performed By: #### B BULK FILLER, CMP, LIPA, TONI #### [facility] [address] [place] [address] Dr. Sayda Kapoor Hematocrit (Bld) [Volume fraction] 31.5 % Critically low 42.0-54.0 [facility] Comment on above: Performed By: #### B BULK FILLER, CMP, LIPA, TONI #### [facility] [address] [place] [address] Dr. Sayda Kapoor Hemoglobin (Bld) [Mass/Vol] 10.1 g/dL Critically low 14.0-18.0 [facility] Comment on above: Performed By: #### B BULK FILLER, CMP, LIPA, TONI #### [facility] [address] [place] [address] Dr. Sayda Kapoor IG # 0.07 10e3/ul Critically high 0.00-0.03 [facility] Comment on above: Performed By: #### B BULK FILLER, CMP, LIPA, TONI #### [facility] [address] [place] [address] Dr. Sayda Kapoor IG % 1.1 % Critically high 0.0-0.5 The [facility] Comment on above: Performed By: #### B BULK FILLER, CMP, LIPA, TONI #### [facility] [address] [place] [address] Dr. Sayda Kapoor LYMPH # 1.1 103/ul Critically low 1.2-3.8 The [facility] Comment on above: Performed By: #### B BULK FILLER, CMP, LIPA, TONI #### [facility] [address] [place] [address] Dr. Sayda Kapoor Lymphocytes/100 WBC (Bld) 17.1 % Critically low 20.5-60.0 The [facility] Comment on above: Performed By: #### B BULK FILLER, CMP, LIPA, TONI #### [facility] [address] [place] [address] Dr. Sayda Kapoor MANUAL DIFF REQ NO Normal [facility] Comment on above: Performed By: #### B BULK FILLER, CMP, LIPA, TONI #### [facility] [address] [place] [address] Dr. Sayda Kapoor MCH (RBC) [Entitic mass] 27.2 pg Normal 25.9-34.0 [facility] Comment on above: Performed By: #### B BULK FILLER, CMP, LIPA, TONI #### [facility] [address] [place] [address] Dr. Sayda Kapoor MCHC (RBC) [Mass/Vol] 32.1 g/dL Normal 29.9-35.2 [facility] Comment on above: Performed By: #### B BULK FILLER, CMP, LIPA, TONI #### [facility] [address] [place] [address] Dr. Sayda Kapoor MCV (RBC) [Entitic vol] 84.7 fL Normal 80.0-94.0 The [facility] Comment on above: Performed By: #### B BULK FILLER, CMP, LIPA, TONI #### [facility] [address] [place] [address] Dr. Sayda Kapoor MONO # 0.7 103/ul Normal 0.3-0.8 The [facility] Comment on above: Performed By: #### B BULK FILLER, CMP, LIPA, TONI #### [facility] [address] [place] [address] Dr. Sayda Kapoor Monocytes/100 WBC (Bld) 10.4 % Normal 1.7-12.0 [facility] Comment on above: Performed By: #### B BULK FILLER, CMP, LIPA, TONI #### [facility] [address] [place] [address] Dr. Sayda Kapoor NEUT # 4.5 103/ul Normal 1.4-6.5 [facility] Comment on above: Performed By: #### B BULK FILLER, CMP, LIPA, TONI #### [facility] [address] [place] [address] Dr. Sayda Kapoor Neutrophils/100 WBC (Bld) 67.7 % Normal 43.0-75.0 [facility] Comment on above: Performed By: #### B BULK FILLER, CMP, LIPA, TONI #### [facility] [address] [place] [address] Dr. Sayda Kapoor Platelet mean volume (Bld) [Entitic vol] 9.0 fL Critically low 9.5-13.5 [facility] Comment on above: Performed By: #### B BULK FILLER, CMP, LIPA, TONI #### [facility] [address] [address] [address] Sayda Kapoor PLT 318 103/ul Normal 150-450 [facility] Comment on above: Performed By: #### B BULK FILLER, CMP, LIPA, TONI #### [facility] [address] [address] [address] Sayda Kapoor RBC 3.72 106/ul Critically low 4.70-6.10 [facility] Comment on above: Performed By: #### B BULK FILLER, CMP, LIPA, TONI #### [facility] [address] [place] [address] Dr. Sayda Kapoor WBC 6.6 103/ul Normal 4.0-11.0 [facility] Comment on above: Performed By: #### B BULK FILLER, CMP, LIPA, TONI #### [facility] [address] [place] [address] Dr. Sayda Kapoor FERRITINon 07-26-2022 Ferritin [Mass/Vol] 19.0 ng/mL Critically low 26.0-388.0 [facility] Comment on above: Performed By: #### B BULK FILLER, CMP, LIPA, TONI #### [facility] [address] [place] [address] Dr. Sayda Kapoor IRON AND TIBCon 07-26-2022 % SATURATION 10.0 % Normal [facility] Comment on above: Performed By: #### B BULK FILLER, CMP, LIPA, TONI #### [facility] [address] [place] [address] Dr. Sayda Kapoor Iron [Mass/Vol] 30.0 ug/dL Critically low 65.0-175.0 [facility] Comment on above: Performed By: #### B BULK FILLER, CMP, LIPA, TONI #### [facility] [address] [place] [address] Dr. Sayda Kapoor TIBC DIRECT 299.0 ug/dL Normal 250.0-450.0 [facility] Comment on above: Performed By: #### B BULK FILLER, CMP, LIPA, TONI #### [facility] [address] [place] [address] Dr. Sayda Kapoor PANCREATIC ELASTASE FECALon 07-19-2022 Pancreatic Elastase, Fecal 466 ug Elast./g Normal >200 [facility] Comment on above: Result Comment: Serenity re Pancreatic Insufficiency: <100 Moderate Pancreatic Insufficiency: 100 - 200 Normal: >200 Performed By: #### C MREP #### [facility] [address] [address] [address] Sayda Kapoor BOWEL DISORDERS EVALUATION R ULE-OUT CASCon 07-18-2022 Antigliadin 1 units Normal 0-19 [facility] Comment on above: Result Comment: Nega tive 0 - 19 Weak Positive 20 - 30 Moderate to Strong Positive >30 . Performed By: #### B BULK FILLER, CMP, LIPA, TONI #### [facility] [address] [address] [address] Sayda Kapoor Atypical pANCA Negative Normal Negative [facility] Comment on above: Performed By: #### B BULK FILLER, CMP, LIPA, TONI #### [facility] [address] [address] [address] Sayda Kapoor Note: [place] continues Normal [facility] Comment on above: Performed By: #### B BULK FILLER, CMP, LIPA, TONI #### [facility] [address] [address] [address] Sayda Kapoor Note: Comment Normal [facility] Comment on above: Result Comment: Sugg estive of irritable bowel syndrome (IBS). Careful evaluation of the patient's history, physical examination, and application of [place] III diagnostic criteria may help to rule in or rule out the diagnosis of IBS. Subsequent testing for Fecal Calprotectin (970981) may be recommended. If IBD is strongly suspected, subsequent testing with the Crohn's Disease Prognostic Profile (638305) that includes anti- glycan antibodies AMCA, ALCA, ACCA, and Sarbjit may aid in differential diagnosis. Performed By: #### B BULK FILLER, CMP, LIPA, TONI #### [facility] [address] [address] [address] Sayda Kapoor Saccharomyces Cer. IgG <20.0 Normal 0.0-24.9 [facility] Comment on above: Result Comment: Nega tive <20.0 Equivocal 20.1 - 24.9 Positive >or= 25.0 Performed By: #### B BULK FILLER, CMP, LIPA, TONI #### [facility] [address] [address] [address] Sayda Kapoor tTG/DGP SCR Negative Normal Negative [facility] Comment on above: Performed By: #### B BULK FILLER, CMP, LIPA, TONI #### [facility] [address] [address] [address] Sayda Kapoor LACTOFERRIN FECAL QUANTon Lactoferrin, Fecal, Quant. 35.24 ug/mL(g) Critically high 0.00-7.24 [facility] Comment on above: Result Comment: [...] (IBS). Performed By: #### D IG #### [facility] [address] [place] [address] Dr. Sayda Kapoor QUANTIFERON TB GOLD PLUSon 1 09-15-2021 QuantiFERON Criteria Comment Normal [facility] Comment on above: Result Comment: [...] test. Performed By: #### Q NTTB #### [facility] [address] [place] [address] Dr. Sayda Kapoor QuantiFERON Incubation Incubation performed. Normal [facility] Comment on above: Performed By: #### Q NTTB #### [facility] [address] [address] [address] Sayda Kapoor QuantiFERON Mitogen Value 8.53 IU/mL Normal [facility] Comment on above: Performed By: #### Q NTTB #### [facility] [address] [address] [address] Sayda Kapoor QuantiFERON Nil Value 0.04 IU/mL Normal [facility] Comment on above: Performed By: #### Q NTTB #### [facility] [address] [place] [address] Dr. Sayda Kapoor QuantiFERON TB1 Ag Value 0.07 IU/mL Normal [facility] Comment on above: Performed By: #### Q NTTB #### [facility] [address] [place] [address] Dr. Sayda Kapoor QuantiFERON TB2 Ag Value 0.04 IU/mL Normal [facility] Comment on above: Performed By: #### Q NTTB #### [facility] [address] [place] [address] Dr. Sayda Kapoor QuantiFERON-TB Gold Plus Negative Normal Negative [facility] Comment on above: Result Comment: No r esponse to M tuberculosis antigens detected. Infection with M tuberculosis is unlikely, but high risk individuals should be considered for additional testing (ATS/IDSA/CDC Clinical Practice Guidelines, 2017). The reference range is an Antigen minus Nil result of <0.35 IU/mL. Chemiluminescence immunoassay methodology Performed By: #### Q NTTB #### [facility] [address] [place] [address] Dr. Sayda Kapoor CALPROTECTIN, FECALon 2021 Calprotectin, Fecal 247 ug/g Critically high 0-120 [facility] Comment on above: Result Comment: Conc entration Interpretation Follow-Up <16 - 50 ug/g Normal None >50 -120 ug/g Borderline Re-evaluate in 4-6 weeks >120 ug/g Abnormal Repeat as clinically indicated Performed By: #### C MREP #### [facility] [address] [place] [address] Dr. Sayda Kapoor HEP B COREon 07-13-2022 Hep B Core Ab, Tot Negative Normal Negative [facility] Comment on above: Performed By: #### H BCORE #### [facility] [address] [place] [address] Dr. Sayda Kapoor HEP B SURFACE ANTIGEN SCREEN on 07-13-2022 HBsAg Screen Negative Normal Negative [facility] Comment on above: Performed By: #### B BULK FILLER, CMP, LIPA, TONI #### [facility] [address] [address] [address] Sayda Kapoor CBC AUTO DIFFon 07-11-2022 BASO # 0.1 103/ul Normal 0.0-0.1 [facility] Comment on above: Performed By: #### C BC #### [facility] [address] [address] [address] Sayda Kapoor Basophils/100 WBC (Bld) 0.8 % Normal 0.2-2.0 [facility] Comment on above: Performed By: #### C BC #### [facility] [address] [place] [address] Dr. Sayda Kapoor EO # 0.2 103/ul Normal 0.0-0.7 The [facility] Comment on above: Performed By: #### C BC #### [facility] [address] [address] [address] Sayda Kapoor Eosinophils/100 WBC (Bld) 3.3 % Normal 0.9-7.0 [facility] Comment on above: Performed By: #### C BC #### [facility] [address] [place] [address] Dr. Sayda Kapoor Erythrocyte distribution width (RBC) [Ratio] 14.6 % Normal 11.0-15.0 The [facility] Comment on above: Performed By: #### C BC #### [facility] [address] [place] [address] Dr. Sayda Kapoor Hematocrit (Bld) [Volume fraction] 29.7 % Critically low 42.0-54.0 [facility] Comment on above: Performed By: #### C BC #### [facility] [address] [address] [address] Sayda Kapoor Hemoglobin (Bld) [Mass/Vol] 9.5 g/dL Critically low 14.0-18.0 The [facility] Comment on above: Performed By: #### C BC #### [facility] [address] [address] [address] Sayda Kapoor IG # 0.03 10e3/ul Normal 0.00-0.03 [facility] Comment on above: Performed By: #### C BC #### [facility] [address] [address] [address] Sayda Kapoor IG % 0.4 % Normal 0.0-0.5 [facility] Comment on above: Performed By: #### C BC #### [facility] [address] [place] [address] Dr. Sayda Kapoor LYMPH # 1.0 103/ul Critically low 1.2-3.[address] [facility] Comment on above: Performed By: #### C BC #### [facility] [address] [place] [address] Dr. Sayda Kapoor Lymphocytes/100 WBC (Bld) 13.6 % Critically low 20.5-60.0 [facility] Comment on above: Performed By: #### C BC #### [facility] [address] [place] [address] Dr. Sayda Kapoor MANUAL DIFF REQ NO Normal [facility] Comment on above: Performed By: #### C BC #### [facility] [address] [place] [address] Dr. Sayda Kapoor MCH (RBC) [Entitic mass] 27.6 pg Normal 25.9-34.0 [facility] Comment on above: Performed By: #### C BC #### [facility] [address] [place] [address] Dr. Sayda Kapoor MCHC (RBC) [Mass/Vol] 32.0 g/dL Normal 29.9-35.2 [facility] Comment on above: Performed By: #### C BC #### [facility] [address] [place] [address] Dr. Sayda Kapoor MCV (RBC) [Entitic vol] 86.3 fL Normal 80.0-94.0 [facility] Comment on above: Performed By: #### C BC #### [facility] [address] [place] [address] Dr. Sayda Kapoor MONO # 0.6 103/ul Normal 0.3-0.8 The [facility] Comment on above: Performed By: #### C BC #### [facility] [address] [place] [address] Dr. Sayda Kapoor Monocytes/100 WBC (Bld) 8.6 % Normal 1.7-12.0 The [facility] Comment on above: Performed By: #### C BC #### [facility] [address] [place] [address] Dr. Sayda Kapoor NEUT # 5.2 103/ul Normal 1.4-6.5 The [facility] Comment on above: Performed By: #### C BC #### [facility] [address] [place] [address] Dr. Sayda Kapoor Neutrophils/100 WBC (Bld) 73.3 % Normal 43.0-75.0 The [facility] Comment on above: Performed By: #### C BC #### [facility] [address] [place] [address] Dr. Sayda Kapoor Platelet mean volume (Bld) [Entitic vol] 8.9 fL Critically low 9.5-13.5 The [facility] Comment on above: Performed By: #### C BC #### [facility] [address] [place] [address] Dr. Sayda Kapoor PLT 242 103/ul Normal 150-450 [facility] Comment on above: Performed By: #### C BC #### [facility] [address] [place] [address] Dr. Sayda Kapoor RBC 3.44 106/ul Critically low 4.70-6.10 [facility] Comment on above: Performed By: #### C BC #### [facility] [address] [place] [address] Dr. Sayda Kapoor WBC 7.1 103/ul Normal 4.0-11.0 The [facility] Comment on above: Performed By: #### C BC #### [facility] [address] [place] [address] Dr. Sayda Kapoor CRPon 07-11-2022 CRP 0.5 mg/dL Normal <=1.0 [facility] Comment on above: Performed By: #### Q NTTB #### [facility] [address] [place] [address] Dr. Sayda Kapoor PROF 14(COMP METB)on 022 Albumin [Mass/Vol] 2.9 g/dL Critically low 3.4-5.0 Th e [facility] Comment on above: Performed By: #### Q NTTB #### [facility] [address] [place] [address] Dr. Sayda Kapoor Albumin/Globulin [Mass ratio] 0.9 {ratio} Normal [facility] Comment on above: Performed By: #### Q NTTB #### [facility] [address] [place] [address] Dr. Sayda Kapoor ALP [Catalytic activity/Vol] 60 U/L Normal 46-116 [facility] Comment on above: Performed By: #### Q NTTB #### [facility] [address] [place] [address] Dr. Sayda Kapoor ALT [Catalytic activity/Vol] 15 U/L Critically low 16-63 [facility] Comment on above: Performed By: #### Q NTTB #### [facility] [address] [place] [address] Dr. Sayda Kapoor Anion gap [Moles/Vol] 8.6 mmol/L Normal [facility] Comment on above: Performed By: #### Q NTTB #### [facility] [address] [place] [address] Dr. Sayda Kapoor AST [Catalytic activity/Vol] 10 U/L Critically low 15-37 [facility] Comment on above: Performed By: #### Q NTTB #### [facility] [address] [place] [address] Dr. Sayda Kapoor Bilirubin [Mass/Vol] 0.3 mg/dL Normal 0.2-1.0 [facility] Comment on above: Performed By: #### Q NTTB #### [facility] [address] [place] [address] Dr. Sayda Kapoor Calcium [Mass/Vol] 8.4 mg/dL Critically low 8.5-10.1 Th e [facility] Comment on above: Performed By: #### Q NTTB #### [facility] [address] [place] [address] Dr. Sayda Kapoor Chloride [Moles/Vol] 104 mmol/L Normal 98-107 [facility] Comment on above: Performed By: #### Q NTTB #### [facility] [address] [address] [address] Sayda Kapoor CO2 [Moles/Vol] 29.2 mmol/L Normal 21.0-32.0 [facility] Comment on above: Performed By: #### Q NTTB #### [facility] [address] [place] [address] Dr. Sayda Kapoor Creatinine [Mass/Vol] 1.04 mg/dL Normal 0.70-1.30 [facility] Comment on above: Performed By: #### Q NTTB #### [facility] [address] [place] [address] Dr. Sayda Kapoor EGFR-AF EGYPTIAN >60 Normal >=60 [facility] Comment on above: Performed By: #### Q NTTB #### [facility] [address] [place] [address] Dr. Sayda Kapoor EGFR-NON AF EGYPTIAN >60 Normal >=60 [facility] Comment on above: Performed By: #### Q NTTB #### [facility] [address] [place] [address] Dr. Sayda Kapoor Globulin (S) [Mass/Vol] 3.4 g/dL Normal [facility] Comment on above: Performed By: #### Q NTTB #### [facility] [address] [place] [address] Dr. Sayda Kapoor Glucose [Mass/Vol] 93 mg/dL Normal 74-106 [facility] Comment on above: Performed By: #### Q NTTB #### [facility] [address] [place] [address] Dr. Sayda Kapoor Potassium [Moles/Vol] 3.8 mmol/L Normal 3.5-5.1 [facility] Comment on above: Performed By: #### Q NTTB #### [facility] [address] [place] [address] Dr. Sayda Kapoor Protein [Mass/Vol] 6.3 g/dL Critically low 6.4-8.2 Th e [facility] Comment on above: Performed By: #### Q NTTB #### [facility] [address] [place] [address] Dr. Sayda Kapoor Sodium [Moles/Vol] 138 mmol/L Normal 136-145 [facility] Comment on above: Performed By: #### Q NTTB #### [facility] [address] [place] [address] Dr. Sayda Kapoor Urea nitrogen [Mass/Vol] 17.0 mg/dL Normal 7.0-18.0 [facility] Comment on above: Performed By: #### Q NTTB #### [facility] [address] [place] [address] Dr. Sayda Kapoor Urea nitrogen/Creatinine [Mass ratio] 16.3 mg/mg Normal [facility] Comment on above: Performed By: #### Q NTTB #### [facility] [address] [place] [address] Dr. Sayda Kapoor PROTIMEon 07-11-2022 INR Coag (PPP) [Relative time] 1.07 {INR} Normal [facility] Comment on above: Performed By: #### Q NTTB #### [facility] [address] [place] [address] Dr. Sayda Kapoor INR GUIDELINES SEE BELOW Normal [facility] Comment on above: Result Comment: SOPHIE RED INR: 2.0 - 3.0 CONDITIONS NOT LISTED BELOW 2.5 - 3.5 FOR PROSTHETIC HEART VALVE REPLACEMENT 2.5 - 3.5 RECURRENT THROMBOSIS Performed By: #### Q NTTB #### [facility] [address] [place] [address] Dr. Sayda Kapoor PT Coag (PPP) [Time] 11.5 s Normal 9.0-11.6 [facility] Comment on above: Performed By: #### Q NTTB #### [facility] [address] [address] [address] Sayda Kapoor [facility] SED R[facility] 16 mm/hr Normal <=20 [facility] Comment on above: Performed By: #### D IG #### [facility] [address] [address] [address] Sayda Kapoor Scanned GI Testingon 022 Scanned GI Testing [id number] 0CD:127 Normal [facility] CBC AUTO DIFFon 07-04-2022 BASO # 0.1 103/ul Normal 0.0-0.1 [facility] Comment on above: Performed By: #### C MREP #### [facility] [address] [place] [address] Dr. Sayda Kapoor Basophils/100 WBC (Bld) 0.6 % Normal 0.2-2.0 [facility] Comment on above: Performed By: #### C MREP #### [facility] [address] [address] [address] Sayda Kapoor EO # 0.2 103/ul Normal 0.0-0.7 [facility] Comment on above: Performed By: #### C MREP #### [facility] [address] [place] [address] Dr. Sayda Kapoor Eosinophils/100 WBC (Bld) 2.2 % Normal 0.9-7.0 [facility] Comment on above: Performed By: #### C MREP #### [facility] [address] [address] [address] Sayda Kapoor Erythrocyte distribution width (RBC) [Ratio] 14.7 % Normal 11.0-15.0 [facility] Comment on above: Performed By: #### C MREP #### [facility] [address] [place] [address] Dr. Sayda Kapoor Hematocrit (Bld) [Volume fraction] 31.9 % Critically low 42.0-54.0 [facility] Comment on above: Performed By: #### C MREP #### [facility] [address] [place] [address] Dr. Sayda Kapoor Hemoglobin (Bld) [Mass/Vol] 10.2 g/dL Critically low 14.0-18.0 [facility] Comment on above: Performed By: #### C MREP #### [facility] [address] [place] [address] Dr. Sayda Kapoor IG # 0.09 10e3/ul Critically high 0.00-0.03 [facility] Comment on above: Performed By: #### C MREP #### [facility] [address] [place] [address] Dr. Sayda Kapoor IG % 1.1 % Critically high 0.0-0.5 [facility] Comment on above: Performed By: #### C MREP #### [facility] [address] [place] [address] Dr. Sayda Kapoor LYMPH # 1.2 103/ul Normal 1.2-3.8 [facility] Comment on above: Performed By: #### C MREP #### [facility] [address] [place] [address] Dr. Sayda Kapoor Lymphocytes/100 WBC (Bld) 14.6 % Critically low 20.5-60.0 [facility] Comment on above: Performed By: #### C MREP #### [facility] [address] [place] [address] Dr. Sayda Kapoor MANUAL DIFF REQ NO Normal [facility] Comment on above: Performed By: #### C MREP #### [facility] [address] [place] [address] Dr. Sayda Kapoor MCH (RBC) [Entitic mass] 27.5 pg Normal 25.9-34.0 [facility] Comment on above: Performed By: #### C MREP #### [facility] [address] [place] [address] Dr. Sayda Kapoor MCHC (RBC) [Mass/Vol] 32.0 g/dL Normal 29.9-35.2 [facility] Comment on above: Performed By: #### C MREP #### [facility] [address] [address] [address] Sayda Kapoor MCV (RBC) [Entitic vol] 86.0 fL Normal 80.0-94.0 [facility] Comment on above: Performed By: #### C MREP #### [facility] [address] [place] [address] Dr. Sayda Kapoor MONO # 0.9 103/ul Critically high 0.3-0.8 [facility] Comment on above: Performed By: #### C MREP #### [facility] [address] [place] [address] Dr. Sayda Kapoor Monocytes/100 WBC (Bld) 10.4 % Normal 1.7-12.0 [facility] Comment on above: Performed By: #### C MREP #### [facility] [address] [place] [address] Dr. Sayda Kapoor NEUT # 5.9 103/ul Normal 1.4-6.5 [facility] Comment on above: Performed By: #### C MREP #### [facility] [address] [place] [address] Dr. Sayda Kapoor Neutrophils/100 WBC (Bld) 71.1 % Normal 43.0-75.0 [facility] Comment on above: Performed By: #### C MREP #### [facility] [address] [place] [address] Dr. Sayda Kapoor Platelet mean volume (Bld) [Entitic vol] 8.8 fL Critically low 9.5-13.5 [facility] Comment on above: Performed By: #### C MREP #### [facility] [address] [place] [address] Dr. Sayda Kapoor PLT 252 103/ul Normal 150-450 [facility] Comment on above: Performed By: #### C MREP #### [facility] [address] [place] [address] Dr. Sayda Kapoor RBC 3.71 106/ul Critically low 4.70-6.10 [facility] Comment on above: Performed By: #### C MREP #### [facility] [address] [place] [address] Dr. Sayda Kapoor WBC 8.3 103/ul Normal 4.0-11.0 [facility] Comment on above: Performed By: #### C MREP #### [facility] [address] [place] [address] Dr. Sayda Kapoor CRPon 07-04-2022 CRP 1.8 mg/dL Critically high <=1.0 [facility] Comment on above: Performed By: #### B BULK FILLER, CMP, LIPA, TONI #### [facility] [address] [place] [address] Dr. Sayda Kapoor PROF 14(COMP METB)on 022 Albumin [Mass/Vol] 3.0 g/dL Critically low 3.4-5.0 [facility] Comment on above: Performed By: #### B BULK FILLER, CMP, LIPA, TONI #### [facility] [address] [place] [address] Dr. Sayda Kapoor Albumin/Globulin [Mass ratio] 1.0 {ratio} Normal [facility] Comment on above: Performed By: #### B BULK FILLER, CMP, LIPA, TONI #### [facility] [address] [place] [address] Dr. Sayda Kapoor ALP [Catalytic activity/Vol] 54 U/L Normal 46-116 [facility] Comment on above: Performed By: #### B BULK FILLER, CMP, LIPA, TONI #### [facility] [address] [place] [address] Dr. Sayda Kapoor ALT [Catalytic activity/Vol] 17 U/L Normal 16-63 [facility] Comment on above: Performed By: #### B BULK FILLER, CMP, LIPA, TONI #### [facility] [address] [place] [address] Dr. Sayda Kapoor Anion gap [Moles/Vol] 6.8 mmol/L Normal [facility] Comment on above: Performed By: #### B BULK FILLER, CMP, LIPA, TONI #### [facility] [address] [place] [address] Dr. Sayda Kapoor AST [Catalytic activity/Vol] 13 U/L Critically low 15-37 [facility] Comment on above: Performed By: #### B BULK FILLER, CMP, LIPA, TONI #### [facility] [address] [place] [address] Dr. Sayda Kapoor Bilirubin [Mass/Vol] 0.5 mg/dL Normal 0.2-1.0 [facility] Comment on above: Performed By: #### B BULK FILLER, CMP, LIPA, TONI #### [facility] [address] [place] [address] Dr. Sayda Kapoor Calcium [Mass/Vol] 8.3 mg/dL Critically low 8.5-10.1 Th [facility] Comment on above: Performed By: #### B BULK FILLER, CMP, LIPA, TONI #### [facility] [address] [place] [address] Dr. Sayda Kapoor Chloride [Moles/Vol] 102 mmol/L Normal 98-107 [facility] Comment on above: Performed By: #### B BULK FILLER, CMP, LIPA, TONI #### [facility] [address] [place] [address] Dr. Sayda Kapoor CO2 [Moles/Vol] 31.7 mmol/L Normal 21.0-32.0 [facility] Comment on above: Performed By: #### B BULK FILLER, CMP, LIPA, TONI #### [facility] [address] [place] [address] Dr. Sayda Kapoor Creatinine [Mass/Vol] 1.03 mg/dL Normal 0.70-1.30 [facility] Comment on above: Performed By: #### B BULK FILLER, CMP, LIPA, TONI #### [facility] [address] [place] [address] Dr. Sayda Kapoor EGFR-AF EGYPTIAN >60 Normal >=60 [facility] Comment on above: Performed By: #### B BULK FILLER, CMP, LIPA, TONI #### [facility] [address] [place] [address] Dr. Sayda Kapoor EGFR-NON AF EGYPTIAN >60 Normal >=60 [facility] Comment on above: Performed By: #### B BULK FILLER, CMP, LIPA, TONI #### [facility] [address] [address] [address] Sayda Kapoor Globulin (S) [Mass/Vol] 3.1 g/dL Normal [facility] Comment on above: Performed By: #### B BULK FILLER, CMP, LIPA, TONI #### [facility] [address] [place] [address] Dr. Sayda Kapoor Glucose [Mass/Vol] 102 mg/dL Normal 74-106 [facility] Comment on above: Performed By: #### B BULK FILLER, CMP, LIPA, TONI #### [facility] [address] [address] [address] Sayda Kapoor Potassium [Moles/Vol] 3.5 mmol/L Normal 3.5-5.1 [facility] Comment on above: Performed By: #### B BULK FILLER, CMP, LIPA, TONI #### [facility] [address] [place] [address] Dr. Sayda Kapoor Protein [Mass/Vol] 6.1 g/dL Critically low 6.4-8.2 [facility] Comment on above: Performed By: #### B BULK FILLER, CMP, LIPA, TONI #### [facility] [address] [place] [address] Dr. Sayda Kapoor Sodium [Moles/Vol] 137 mmol/L Normal 136-145 [facility] Comment on above: Performed By: #### B BULK FILLER, CMP, LIPA, TONI #### [facility] [address] [place] [address] Dr. Sayda Kapoor Urea nitrogen [Mass/Vol] 19.0 mg/dL Critically high 7.0-18.0 [facility] Comment on above: Performed By: #### B BULK FILLER, CMP, LIPA, TONI #### [facility] [address] [place] [address] Dr. Sayda Kapoor Urea nitrogen/Creatinine [Mass ratio] 18.4 mg/mg Normal [facility] Comment on above: Performed By: #### B BULK FILLER, CMP, LIPA, TONI #### [facility] [address] [address] [address] Sayda Kapoor SED RATE WESTERGRENon 2021 SED RATE 17 mm/hr Normal <=20 [facility] Comment on above: Performed By: #### C MREP #### [facility] [address] [place], [place] [id number] Dr. Sayda Kapoor Scanned GI Testingon 022 Scanned GI Testing [id number] 0CD:127 Normal [facility] Scanned GI Testing [id number] 0CD:127 Normal [facility] US SINGLE QUAD RT UPPERon US [...] CUBA HERNANDEZ Date: 2022-06-23 16:17 Normal [facility] Outside Colonoscopyon 2021 Outside Colonoscopy [id number] 0CD:127 Normal [facility] Lab Reportson 05-07-2022 Lab Reports [id number] 0CD:127 Normal [facility] Covid-19 PCR (CVDTB)on SARS-CoV-2 (COVID-19) RNA KAT+probe Ql (Unsp spec) Not detected Normal NOT DETECTED [facility] Comment on above: Result Comment: This test is not yet approved or cleared by the [place] FDA. When there are no FDA-approved or cleared tests available, and other criteria are met, FDA can make tests available under an emergency access mechanism called an Emergency Use Authorization (EUA). The EUA for this test is supported by the [place] of Health and Human Service's (HHS's) declaration [...] consistent with SARS-CoV-2. Performed By: #### C [facility] #### [facility] [address] [place] [address] Dr. Sayda Kapoor Consent for Procedure/Surger yon 04-17-2022 Consent for Procedure/Surgery [id number] CD:127 Normal [facility] RAD - CT Reporton 04-16-2022 RAD - CT Report [id number]#1.0 0CD:127 Normal [facility] CT ABD/PELV W CONon 04-14-20 CT [...] by: CUBA HERNANDEZ Date: 2022-04-14 14:28 Normal [facility] Consultation Noteon 04-09-20 22 Consultation Note [id number] 0CD:127 Normal [facility] General Surgery Office/Clini c Noteon 04-04-2022 [...] or varicosities. Gastrointestinal: soft, non distended, mild tenderness,epigastrium and bilateral lower abd; no masses, no [...] see # 1 7. 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 Normal [facility] Comment on above: Result Comment: Elec tronically Signed By: LAZARO DANGELO, Javid Desai\Date and Time Signed: 04/04/22 11:03 EDT Consultation Noteon 04-03-20 Consultation Note [id number] 0CD:127 Normal [facility] Ambulatory Visit Summaryon 0 04-01-2022 Ambulatory Visit Summary AYO ALICIA :1960 Visit Date:04/01/2022 Ambulatory Visit Instructions Your Diagnosis Abdominal pain, RLQ Abdominal pain, periumbilical Iron deficiency anemia Nausea Chronic anticoagulation Your Care Team Attending Physician - LAZARO DANGELO, Javid Du Primary Care Physician - Andrey DANGELO, Perico This Is Your Medications List apixaban (Eliquis [...] deficiency anemia Nausea Osteoarthritis RUQ pain Normal [facility] PROF 14(COMP METB)on 022 Albumin [Mass/Vol] 2.7 g/dL Critically low 3.4-5.0 [facility] Comment on above: Performed By: #### D IG #### [facility] [address] [place] [address] Dr. Sayda Kapoor Albumin/Globulin [Mass ratio] 0.9 {ratio} Normal [facility] Comment on above: Performed By: #### D IG #### [facility] [address] [address] [address] Sayda Kapoor ALP [Catalytic activity/Vol] 55 U/L Normal 46-116 [facility] Comment on above: Performed By: #### D IG #### [facility] [address] [address] [address] Sayda Kapoor ALT [Catalytic activity/Vol] 16 U/L Normal 16-63 [facility] Comment on above: Performed By: #### D IG #### [facility] [address] [address] [address] Sayda Kapoor Anion gap [Moles/Vol] 13.0 mmol/L Normal [facility] Comment on above: Performed By: #### D IG #### [facility] [address] [address] [address] Sayda Kapoor AST [Catalytic activity/Vol] 10 U/L Critically low 15-37 [facility] Comment on above: Performed By: #### D IG #### [facility] [address] [address] [address] Sayda Kapoor Bilirubin [Mass/Vol] 0.7 mg/dL Normal 0.2-1.0 [facility] Comment on above: Performed By: #### D IG #### [facility] [address] [address] [address] Sayda Kapoor Calcium [Mass/Vol] 7.4 mg/dL Critically low 8.5-10.1 Th [facility] Comment on above: Performed By: #### D IG #### [facility] [address] [address] [address] Sayda Kapoor Chloride [Moles/Vol] 110 mmol/L Critically high 98-107 [facility] Comment on above: Performed By: #### D IG #### [facility] [address] [address] [address] Sayda Kapoor CO2 [Moles/Vol] 25.1 mmol/L Normal 21.0-32.0 [facility] Comment on above: Performed By: #### D IG #### [facility] [address] [place] [address] Dr. Sayda Kapoor Creatinine [Mass/Vol] 1.16 mg/dL Normal 0.70-1.30 [facility] Comment on above: Performed By: #### D IG #### [facility] [address] [address] [address] Sayda Kapoor EGFR-AF EGYPTIAN >60 Normal >=60 [facility] Comment on above: Performed By: #### D IG #### [facility] [address] [address] [address] Sayda Kapoor EGFR-NON AF EGYPTIAN >60 Normal >=60 [facility] Comment on above: Performed By: #### D IG #### [facility] [address] [address] [address] Sayda Kapoor Globulin (S) [Mass/Vol] 3.0 g/dL Normal [facility] Comment on above: Performed By: #### D IG #### [facility] [address] [address] [address] Sayda Kapoor Glucose [Mass/Vol] 122 mg/dL Critically high 74-106 [facility] Comment on above: Performed By: #### D IG #### [facility] [address] [address] [address] Sayda Kapoor Potassium [Moles/Vol] 3.1 mmol/L Critically low 3.5-5.1 [facility] Comment on above: Performed By: #### D IG #### [facility] [address] [address] [address] Sayda Kapoor Protein [Mass/Vol] 5.7 g/dL Critically low 6.4-8.2 Th [facility] Comment on above: Performed By: #### D IG #### [facility] [address] [address] [address] Sayda Kapoor Sodium [Moles/Vol] 145 mmol/L Normal 136-145 [facility] Comment on above: Performed By: #### D IG #### [facility] [address] [address] [address] Sayda Kapoor Urea nitrogen [Mass/Vol] 16.0 mg/dL Normal 7.0-18.0 [facility] Comment on above: Performed By: #### D IG #### [facility] [address] [address] [address] Syada Kapoor Urea nitrogen/Creatinine [Mass ratio] 13.8 mg/mg Normal [facility] Comment on above: Performed By: #### D IG #### [facility] [address] [address] [address] Sayda Kapoor Lab Reportson 03-18-2022 Lab Reports [id number] .[id number]:127 Normal [facility] RAD - Ultrasound Reporton RAD - Ultrasound Report [id number] 0CD:127 Normal [facility] PROF 14(COMP METB)on 022 Albumin [Mass/Vol] 3.1 g/dL Critically low 3.4-5.0 [facility] Comment on above: Performed By: #### B BULK FILLER, CMP, LIPA, TONI #### [facility] [address] [address] [address] Sayda Kapoor Albumin/Globulin [Mass ratio] 0.9 {ratio} Normal [facility] Comment on above: Performed By: #### B BULK FILLER, CMP, LIPA, TONI #### [facility] [address] [place] [address] Dr. Sayda Kapoor ALP [Catalytic activity/Vol] 67 U/L Normal 46-116 [facility] Comment on above: Performed By: #### B BULK FILLER, CMP, LIPA, TONI #### [facility] [address] [place] [address] Dr. Sayda Kapoor ALT [Catalytic activity/Vol] 25 U/L Normal 16-63 [facility] Comment on above: Performed By: #### B BULK FILLER, CMP, LIPA, TNOI #### [facility] [address] [place] [address] Dr. Sayda Kapoor Anion gap [Moles/Vol] 10.1 mmol/L Normal [facility] Comment on above: Performed By: #### B BULK FILLER, CMP, LIPA, TONI #### [facility] [address] [place] [address] Dr. Sayda Kapoor AST [Catalytic activity/Vol] 15 U/L Normal 15-37 [facility] Comment on above: Performed By: #### B BULK FILLER, CMP, LIPA, TONI #### [facility] [address] [place] [address] Dr. Sayda Kapoor Bilirubin [Mass/Vol] 1.1 mg/dL Critically high 0.2-1.0 [facility] Comment on above: Performed By: #### B BULK FILLER, CMP, LIPA, TONI #### [facility] [address] [place] [address] Dr. Sayda Kapoor Calcium [Mass/Vol] 8.7 mg/dL Normal 8.5-10.1 [facility] Comment on above: Performed By: #### B BULK FILLER, CMP, LIPA, TONI #### [facility] [address] [place] [address] Dr. Sayda Kapoor Chloride [Moles/Vol] 103 mmol/L Normal 98-107 [facility] Comment on above: Performed By: #### B BULK FILLER, CMP, LIPA, TONI #### [facility] [address] [place] [address] Dr. Sayda Kapoor CO2 [Moles/Vol] 28.7 mmol/L Normal 21.0-32.0 [facility] Comment on above: Performed By: #### B BULK FILLER, CMP, LIPA, TONI #### [facility] [address] [place] [address] Dr. Sayda Kapoor Creatinine [Mass/Vol] 1.61 mg/dL Critically high 0.70-1.30 [facility] Comment on above: Performed By: #### B BULK FILLER, CMP, LIPA, TONI #### [facility] [address] [place] [address] Dr. Sayda Kapoor EGFR-AF EGYPTIAN 53 mL/min/1.73m2 Critically low >=60 [facility] Comment on above: Performed By: #### B BULK FILLER, CMP, LIPA, TONI #### [facility] [address] [place] [address] Dr. Sayda Kapoor EGFR-NON AF EGYPTIAN 44 mL/min/1.73m2 Critically low >=60 [facility] Comment on above: Performed By: #### B BULK FILLER, CMP, LIPA, TONI #### [facility] [address] [place] [address] Dr. Sayda Kapoor Globulin (S) [Mass/Vol] 3.6 g/dL Normal [facility] Comment on above: Performed By: #### B BULK FILLER, CMP, LIPA, TONI #### [facility] [address] [place] [address] Dr. Sayda Kapoor Glucose [Mass/Vol] 130 mg/dL Critically high 74-106 [facility] Comment on above: Performed By: #### B BULK FILLER, CMP, LIPA, TONI #### [facility] [address] [place] [address] Dr. Sayda Kapoor Potassium [Moles/Vol] 3.8 mmol/L Normal 3.5-5.1 [facility] Comment on above: Performed By: #### B BULK FILLER, CMP, LIPA, TONI #### [facility] [address] [place] [address] Dr. Sayda Kapoor Protein [Mass/Vol] 6.7 g/dL Normal 6.4-8.2 [facility] Comment on above: Performed By: #### B BULK FILLER, CMP, LIPA, TONI #### [facility] [address] [place] [address] Dr. Sayda Kapoor Sodium [Moles/Vol] 138 mmol/L Normal 136-145 [facility] Comment on above: Performed By: #### B BULK FILLER, CMP, LIPA, TONI #### [facility] [address] [place] [address] Dr. Sayda Kapoor Urea nitrogen [Mass/Vol] 31.0 mg/dL Critically high 7.0-18.0 [facility] Comment on above: Performed By: #### B BULK FILLER, CMP, LIPA, TONI #### [facility] [address] [place] [address] Dr. Sayda Kapoor Urea nitrogen/Creatinine [Mass ratio] 19.3 mg/mg Normal [facility] Comment on above: Performed By: #### B BULK FILLER, CMP, LIPA, TONI #### [facility] [address] [place] [address] Dr. Sayda Kapoor AMYLASEon 03-08-2022 Amylase [Catalytic activity/Vol] 63 U/L Normal 25-115 [facility] Comment on above: Performed By: #### B BULK FILLER, CMP, LIPA, TONI #### [facility] [address] [place] [address] Dr. Sayda Kapoor BNPon 03-08-2022 Natriuretic peptide B (Bld) [Mass/Vol] 47.0 pg/mL Normal <=900.0 [facility] Comment on above: Performed By: #### B BULK FILLER, CMP, LIPA, TONI #### [facility] [address] [place] [address] Dr. Sayda Kapoor CBC AUTO DIFFon 03-08-2022 BASO # 0.0 103/ul Normal 0.0-0.1 [facility] Comment on above: Performed By: #### C MREP #### [facility] [address] [address] [address] Sayda Kapoor Basophils/100 WBC (Bld) 0.5 % Normal 0.2-2.0 [facility] Comment on above: Performed By: #### C MREP #### [facility] [address] [address] [address] Sayda Kapoor EO # 0.3 103/ul Normal 0.0-0.7 [facility] Comment on above: Performed By: #### C MREP #### [facility] [facility] [address] [place] [address] Dr. Sayda Kapoor Eosinophils/100 WBC (Bld) 3.1 % Normal 0.9-7.0 [facility] Comment on above: Performed By: #### C MREP #### [facility] [address] [place] [address] Dr. Sayda Kapoor Erythrocyte distribution width (RBC) [Ratio] 13.8 % Normal 11.0-15.0 [facility] Comment on above: Performed By: #### C MREP #### [facility] [address] [place] [address] Dr. Sayda Kapoor Hematocrit (Bld) [Volume fraction] 35.0 % Critically low 42.0-54.0 [facility] Comment on above: Performed By: #### C MREP #### [facility] [address] [place] [address] Dr. Sayda Kapoor Hemoglobin (Bld) [Mass/Vol] 11.3 g/dL Critically low 14.0-18.0 [facility] Comment on above: Performed By: #### C MREP #### [facility] [address] [place] [address] Dr. Sayda Kapoor IG # 0.05 10e3/ul Critically high 0.00-0.03 [facility] Comment on above: Performed By: #### C MREP #### [facility] [address] [place] [address] Dr. Sayda Kapoor IG % 0.6 % Critically high 0.0-0.5 [facility] Comment on above: Performed By: #### C MREP #### [facility] [address] [address] [address] Sayda Kapoor LYMPH # 1.0 103/ul Critically low 1.2-3.[address] [facility] Comment on above: Performed By: #### C MREP #### [facility] [address] [address] [address] Sayda Kapoor Lymphocytes/100 WBC (Bld) 11.7 % Critically low 20.5-60.0 [facility] Comment on above: Performed By: #### C MREP #### [facility] [address] [address] [address] Sayda Kapoor MANUAL DIFF REQ NO Normal [facility] Comment on above: Performed By: #### C MREP #### [facility] [address] [place] [address] Dr. Sayda Kapoor MCH (RBC) [Entitic mass] 29.0 pg Normal 25.9-34.0 [facility] Comment on above: Performed By: #### C MREP #### [facility] [address] [place] [address] Dr. Sayda Kapoor MCHC (RBC) [Mass/Vol] 32.3 g/dL Normal 29.9-35.2 [facility] Comment on above: Performed By: #### C MREP #### [facility] [address] [place] [address] Dr. Sayda Kapoor MCV (RBC) [Entitic vol] 90.0 fL Normal 80.0-94.0 [facility] Comment on above: Performed By: #### C MREP #### [facility] [address] [place] [address] Dr. Sayda Kapoor MONO # 0.8 103/ul Normal 0.3-0.8 [facility] Comment on above: Performed By: #### C MREP #### [facility] [address] [address] [address] Sayda Kapoor Monocytes/100 WBC (Bld) 8.9 % Normal 1.7-12.0 [facility] Comment on above: Performed By: #### C MREP #### [facility] [address] [address] [address] Sayda Kapoor NEUT # 6.6 103/ul Critically high 1.4-6.5 [facility] Comment on above: Performed By: #### C MREP #### [facility] [address] [address] [address] Sayda Kapoor Neutrophils/100 WBC (Bld) 75.2 % Critically high 43.0-75.0 [facility] Comment on above: Performed By: #### C MREP #### [facility] [address] [address] [address] Sayda Kapoor Platelet mean volume (Bld) [Entitic vol] 8.9 fL Critically low 9.5-13.5 [facility] Comment on above: Performed By: #### C MREP #### [facility] [address] [address] [address] Sayda Kapoor PLT 317 103/ul Normal 150-450 [facility] Comment on above: Performed By: #### C MREP #### [facility] [address] [address] [address] Sayda Kapoor RBC 3.89 106/ul Critically low 4.70-6.10 [facility] Comment on above: Performed By: #### C MREP #### [facility] [address] [address] [address] Sayda Kapoor WBC 8.7 103/ul Normal 4.0-11.0 [facility] Comment on above: Performed By: #### C MREP #### [facility] [address] [address] [address] Sayda Kapoor IRONon 03-08-2022 Iron [Mass/Vol] 42.0 ug/dL Critically low 65.0-175.0 [facility] Comment on above: Performed By: #### B BULK FILLER, CMP, LIPA, TONI #### [facility] [address] [address] [address] Sayda Kapoor LIPASEon 03-08-2022 Lipase [Catalytic activity/Vol] 80.0 U/L Normal 73.0-393.0 [facility] Comment on above: Performed By: #### B BULK FILLER, CMP, LIPA, TONI #### [facility] [address] [place] [address] Dr. Sayda Kapoor PROF 14(COMP METB)on 022 Albumin [Mass/Vol] 3.3 g/dL Critically low 3.4-5.0 [facility] Comment on above: Performed By: #### B BULK FILLER, CMP, LIPA, TONI #### [facility] [address] [place] [address] Dr. Sayda Kapoor Albumin/Globulin [Mass ratio] 0.8 {ratio} Normal [facility] Comment on above: Performed By: #### B BULK FILLER, CMP, LIPA, TONI #### [facility] [address] [place] [address] Dr. Sayda Kapoor ALP [Catalytic activity/Vol] 70 U/L Normal 46-116 [facility] Comment on above: Performed By: #### B BULK FILLER, CMP, LIPA, TONI #### [facility] [address] [place] [address] Dr. Sayda Kapoor ALT [Catalytic activity/Vol] 25 U/L Normal 16-63 [facility] Comment on above: Performed By: #### B BULK FILLER, CMP, LIPA, TONI #### [facility] [address] [place] [address] Dr. Sayda Kapoor Anion gap [Moles/Vol] 13.7 mmol/L Normal [facility] Comment on above: Performed By: #### B BULK FILLER, CMP, LIPA, TONI #### [facility] [address] [place] [address] Dr. Sayda Kapoor AST [Catalytic activity/Vol] 15 U/L Normal 15-37 [facility] Comment on above: Performed By: #### B BULK FILLER, CMP, LIPA, TONI #### [facility] [address] [place] [address] Dr. Sayda Kapoor Bilirubin [Mass/Vol] 0.8 mg/dL Normal 0.2-1.0 [facility] Comment on above: Performed By: #### B BULK FILLER, CMP, LIPA, TONI #### [facility] [address] [place] [address] Dr. Sayda Kapoor Calcium [Mass/Vol] 8.7 mg/dL Normal 8.5-10.1 [facility] Comment on above: Performed By: #### B BULK FILLER, CMP, LIPA, TONI #### [facility] [address] [place] [address] Dr. Sayda Kapoor Chloride [Moles/Vol] 102 mmol/L Normal 98-107 [facility] Comment on above: Performed By: #### B BULK FILLER, CMP, LIPA, TONI #### [facility] [address] [place] [address] Dr. Sayda Kapoor CO2 [Moles/Vol] 28.1 mmol/L Normal 21.0-32.0 [facility] Comment on above: Performed By: #### B BULK FILLER, CMP, LIPA, TONI #### [facility] [address] [place] [address] Dr. Sayda Kapoor Creatinine [Mass/Vol] 2.04 mg/dL Critically high 0.70-1.30 [facility] Comment on above: Performed By: #### B BULK FILLER, CMP, LIPA, TONI #### [facility] [address] [place] [address] Dr. Sayda Kapoor EGFR-AF EGYPTIAN 40 mL/min/1.73m2 Critically low >=60 [facility] Comment on above: Performed By: #### B BULK FILLER, CMP, LIPA, TONI #### [facility] [address] [place] [address] Dr. Sayda Kapoor EGFR-NON AF EGYPTIAN 33 mL/min/1.73m2 Critically low >=60 [facility] Comment on above: Performed By: #### B BULK FILLER, CMP, LIPA, TONI #### [facility] [address] [place] [address] Dr. Sayda Kapoor Globulin (S) [Mass/Vol] 3.9 g/dL Normal [facility] Comment on above: Performed By: #### B BULK FILLER, CMP, LIPA, TONI #### [facility] [address] [place] [address] Dr. Sayda Kapoor Glucose [Mass/Vol] 120 mg/dL Critically high 74-106 [facility] Comment on above: Performed By: #### B BULK FILLER, CMP, LIPA, TONI #### [facility] [address] [place] [address] Dr. Sayda Kapoor Potassium [Moles/Vol] 3.8 mmol/L Normal 3.5-5.1 [facility] Comment on above: Performed By: #### B BULK FILLER, CMP, LIPA, TONI #### [facility] [address] [place] [address] Dr. Sayda Kapoor Protein [Mass/Vol] 7.2 g/dL Normal 6.4-8.2 [facility] Comment on above: Performed By: #### B BULK FILLER, CMP, LIPA, TONI #### [facility] [address] [place] [address] Dr. Sayda Kapoor Sodium [Moles/Vol] 140 mmol/L Normal 136-145 [facility] Comment on above: Performed By: #### B BULK FILLER, CMP, LIPA, TONI #### [facility] [address] [place] [address] Dr. Sayda Kapoor Urea nitrogen [Mass/Vol] 38.0 mg/dL Critically high 7.0-18.0 [facility] Comment on above: Performed By: #### B BULK FILLER, CMP, LIPA, TONI #### [facility] [address] [place] [address] Dr. Sayda Kapoor Urea nitrogen/Creatinine [Mass ratio] 18.6 mg/mg Normal [facility] Comment on above: Performed By: #### B BULK FILLER, CMP, LIPA, TONI #### [facility] [address] [place] [address] Dr. Sayda Kapoor Physician Referralon 022 Physician Referral [id number] Normal [facility] US SINGLE QUAD RT UPPERon US [...] by: CL POTTS Date: 2022-03-08 17:27 Normal [facility] Cardiovascular Lab Reporton 01-26-2021 Cardiovascular Lab Report [facility] Patient Name: [facility] Ayo MR #: [id number] Department of Physician: Fatuma Garcia M.D. Division of Service Date: 01/26/2021 Cardiology Birthdate: 1960 Adult Cardiovascular Room #: [facility] [address] [place] [address] Cardiovascular Laboratory Report FINAL IMPRESSIONS: 1. Severe, [...] statin therapy, a beta césar, +/- an angiotensin-converting enzyme inhibitor. 4. A fasting lipid profile and liver function tests will be checked in 6 to 8 weeks. 5. Will consider returns for elective revascularization of the posterior descending branch of the right coronary artery depending on clinical symptomatology; it is a small caliber, short vessel that subtends a small area of myocardium. 6. Follow up with [facility] Cardiology in the [facility] in the next 2 to 3 [...] the right radial artery was obtained. A 6-Hong Konger glide sheath was inserted without difficulty. Bilateral selective coronary angiography was performed using a 6-Hong Konger TIG catheter. After reviewing the images, it was elected to proceed with an interventional procedure. A 6-Hong Konger XB3.0 guide catheter was advanced in over [...] He was to be transferred to the [facility] area in stable condition. FINDINGS: Hemodynamics. AO [...] in (more content not included)... Normal [facility] CORONAVIRUS 2019 BY PCRon CORONAVIRUS 2019,PCR DETECTED Abnormal Not Detected [facility] Comment on above: Order Comment: COVID [...] patient management decisions. Fact sheet for providers: https://www.fda.gov/media/286540/download Fact sheet for patients: https://www.fda.gov/media/401054/download This test has received FDA Emergency Use Authorization (EUA) and has been verified by [facility] ([facility]). This test is only authorized for the duration of time that circumstances exist to justify the authorization of the emergency use of in vitro diagnostic tests for the detection of SARS-CoV-2 virus and/or diagnosis of COVID-19 infection under section 564(b)(1) of the Act, 21 U.S.C. 360bbb-3(b)(1), unless the authorization is terminated or revoked sooner. [facility] is certified under CLIA-88 as qualified to perform high complexity testing. Testing is performed in the [facility] laboratories located at [address] [place] [address]. COVID CALLED TO RICHARD , 07/21/2020 16:56 Performed By: #### C OV19 #### [facility] [address] [place] [address] EMPLOYED IN HEALTHCARE? Unknown Normal [facility] Comment on above: Order Comment: COVID CALLED TO RICHARD , 07/21/2020 16:56 Performed By: #### C OV19 #### [place] [address] [place] [address] FIRST COVID NASAL SWAB TEST? Unknown Normal [facility] Comment on above: Order Comment: COVID CALLED TO RICHARD , 07/21/2020 16:56 Performed By: #### C OV19 #### [facility] [address] [place] [address] HOSPITALIZED (OR PLANNED TO BE ADMITTED)? Unknown Normal [facility] Comment on above: Order Comment: COVID CALLED TO RICHARD , 07/21/2020 16:56 Performed By: #### C OV19 #### [facility] [address] [place] [address] ICU? Unknown Normal [facility] Comment on above: Order Comment: COVID CALLED TO RICHARD , 07/21/2020 16:56 Performed By: #### C OV19 #### [facility] [address] [place] [address] RESIDENT IN CONGREGATE CARE SETTING? Unknown Normal [facility] Comment on above: Order Comment: COVID CALLED TO RICHARD , 07/21/2020 16:56 Performed By: #### C OV19 #### [facility] [address] [place] [address] SYMPTOMATIC DEFINED BY CDC? Unknown Normal [facility] Comment on above: Order Comment: COVID CALLED TO RICHARD , 07/21/2020 16:56 Performed By: #### C OV19 #### [facility] [address] [place] [address] Covid 19 Resultson 0 Covid 19 Results [...] available, clean hands with an alcohol-based hand superintendent quarry that contains at least 60% alcohol. Remember [...] 20 seconds or use an alcohol-based hand superintendent quarry that contains at least 60% alcohol. Avoid touching your face Do not permit visitors who do not have an essential need to be in your home. Mask when caring for these individuals. Household members caring for a COVID-19 positive patient should consider self-quarantine for 14 days. If symptoms develop, testing for COVID-19 should be considered.. Revised 7.28.20 Electronic Signatures: PSCMServmadhuri, [employer] (ADMIN) (Signature pending) Authored Last Updated: 21-Jul-2020 16:32 by [employer]SCMServmadhuri [employer] (ADMIN) Normal [facility] CORONAVIRUS 2019 BY PCRon Lab Specimen Source Nasal, Nasopharyngeal Normal [facility] Comment on above: Order Comment: COVID CALLED TO RICHARD , 07/21/2020 16:56 Performed By: #### C OV19 #### [facility] [address] [place] [address] Vital Signs Date Time Vital Sign Value Performing Clinician Facility 12-06-2024 13:13-0400 Body height 172.72 cm [facility] 12-06-2024 13:13-0400 Body mass index (BMI) [Ratio] 30.4 kg/m2 [facility] 12-06-2024 13:13-0400 Body weight 90.71 kg [facility] 08-20-2024 10:37-0500 Body temperature 97.3 [degF] Cuba Haywood MD Work Phone: [facility] 08-20-2024 10:37-0500 Diastolic blood pressure 71 mm[Hg] Cuba Haywood MD Work Phone: [facility] 08-20-2024 10:37-0500 Heart rate 77 /min Cuba Haywood MD Work Phone: [facility] 08-20-2024 10:37-0500 SaO2% (BldA) [Mass fraction] 98 % Cuba Haywood MD Work Phone: [facility] 08-20-2024 10:37-0500 Systolic blood pressure 150 mm[Hg] Cuba Haywood MD Work Phone: [facility] 06-04-2024 12:19-0400 Body temperature 97.81 [degF] Pearl Calderon ENVELOPE PATTERNMAKER.DENTAL MECHANIC Work Phone: [facility] 06-04-2024 12:19-0400 Diastolic blood pressure 99 mm[Hg] Pearl Calderon ENVELOPE PATTERNMAKER.DENTAL MECHANIC Work Phone: [facility] Comment on above: states stressed from driving 06-04-2024 12:19-0400 Heart rate 69 /min Pearl Calderon ENVELOPE PATTERNMAKER.DENTAL MECHANIC Work Phone: [facility] 06-04-2024 12:19-0400 SaO2% (BldA) [Mass fraction] 99 % Pearl Calderon ENVELOPE PATTERNMAKER.DENTAL MECHANIC Work Phone: [facility] 06-04-2024 12:19-0400 Systolic blood pressure 137 mm[Hg] Pearl Calderon ENVELOPE PATTERNMAKER.DENTAL MECHANIC Work Phone: [facility] Comment on above: states stressed from driving 04-30-2024 14:23-0400 Diastolic blood pressure 75 mm[Hg] Pacc 1 Work Phone: [facility] 04-30-2024 14:23-0400 Systolic blood pressure 145 mm[Hg] Pacc 1 Work Phone: [facility] 04-30-2024 13:37-0400 Body height 172.7 cm Pacc 1 Work Phone: [facility] 04-30-2024 13:37-0400 Body mass index (BMI) [Ratio] 26.68 kg/m2 Pacc 1 Work Phone: [facility] 04-30-2024 13:37-0400 Body temperature 98.29 [degF] Pacc 1 Work Phone: [facility] 04-30-2024 13:37-0400 Body weight 79.6 kg Pac 1 Work Phone: [facility] 04-30-2024 13:37-0400 Heart rate 66 /min Pac 1 Work Phone: [facility] 04-30-2024 13:37-0400 SaO2% (BldA) [Mass fraction] 98 % Pac 1 Work Phone: [facility] 04-28-2024 12:22-0400 Body height 172.7 cm Cuba Haywood MD Work Phone: [facility] 04-28-2024 12:22-0400 Body mass index (BMI) [Ratio] 25.85 kg/m2 Cuba Haywood MD Work Phone: [facility] 04-28-2024 12:22-0400 Body temperature 97.5 [degF] Cuba Haywood MD Work Phone: [facility] 04-28-2024 12:22-0400 Body weight 77.11 kg Cuba Haywood MD Work Phone: [facility] 04-28-2024 12:22-0400 Diastolic blood pressure 63 mm[Hg] Cuba Haywood MD Work Phone: [facility] 04-28-2024 12:22-0400 Heart rate 61 /min Cuba Haywood MD Work Phone: [facility] 04-28-2024 12:22-0400 SaO2% (BldA) [Mass fraction] 99 % Cuba Hayowod MD Work Phone: [facility] 04-28-2024 12:22-0400 Systolic blood pressure 131 mm[Hg] Cuba Haywood MD Work Phone: [facility] 04-05-2024 10:21-0400 Body height 172.72 cm MD Perico Mccabe Work Phone: [facility] 04-05-2024 10:21-0400 Body mass index (BMI) [Ratio] 25.8 kg/m2 MD Perico Mccabe Work Phone: [facility] 04-05-2024 10:21-0400 Body weight 77.11 kg MD Perico Mccabe Work Phone: [facility] 09-11-2023 15:00-0500 Body height 172.72 cm Enoch Carnes Other [employer] Other 09-11-2023 15:00-0500 Body mass index (BMI) [Ratio] 32.38 kg/m2 Enoch Carnes Other [employer] Other 09-11-2023 15:00-0500 Body weight 96.62 kg Enoch Carnes Other [employer] Other 08-27-2023 13:07-0500 Body height 172.7 cm Pm 2 [employer] 08-27-2023 13:07-0500 Body mass index (BMI) [Ratio] 28.13 kg/m2 Pm 2 [employer] 08-27-2023 13:07-0500 Body weight 83.92 kg Pm 2 [employer] 04-23-2023 10:45-0400 Body height 172.72 cm Enoch Carnes Other [employer] Other 04-23-2023 10:45-0400 Body mass index (BMI) [Ratio] 32.37 kg/m2 Enoch Carnes Other [employer] Other 04-23-2023 10:45-0400 Body weight 96.57 kg Enoch Carnes Other [employer] Other 04-23-2023 10:45-0400 Diastolic blood pressure 84 mm[Hg] Enoch Carnes Other [employer] Other 04-23-2023 10:45-0400 Systolic blood pressure 184 mm[Hg] nEoch Carnes Other [facility] [employer] Other 07-09-2022 15:30-0500 Body height 172.72 cm Enoch Carnes Other [facility] [employer] Other 07-09-2022 15:30-0500 Body mass index (BMI) [Ratio] 27.52 kg/m2 Enoch Carnes Other [facility] [employer] Other 07-09-2022 15:30-0500 Body weight 82.1 kg Encoh Carnes Other [facility] [employer] Other 05-27-2022 15:44-0400 Body weight 0 kg MD Perico Mccabe Work Phone: [facility] 04-01-2022 15:06-0400 Blood Pressure Location Javid NILL [facility] [place] 04-01-2022 15:06-0400 Diastolic blood pressure 74 mm[Hg] Javid NILL [facility] [place] 04-01-2022 15:06-0400 Heart rate 58 /min Javid NILL [facility] [place] 04-01-2022 15:06-0400 Respiratory rate 16 /min Javid NILL [facility] [place] 04-01-2022 15:06-0400 Systolic blood pressure 124 mm[Hg] Javid NILL [facility] [place] Encounters Encounter Date Encounter Type Care Provider Facility Start: 01-04-2025 End: 01-04-2025 ambulatory AB [facility] Start: 12-06-2024 End: 12-06-2024 ambulatory [facility] Work Phone: Start: 12-06-2024 End: 12-06-2024 Patient encounter procedure [facility] Work Phone: Start: 08-20-2024 End: 08-20-2024 ambulatory CUBA HAYWOOD Facility:[facility] Start: 08-20-2024 End: 08-20-2024 Patient encounter procedure Cuba Haywood MD Work Phone: Colorectal Surgery Comment on above: Follow-up examinatio n after colorectal surgery (Primary Dx) Start: 07-20-2024 End: 07-20-2024 ambulatory [facility] Start: 06-04-2024 End: 06-04-2024 ambulatory CUBA HAYWOOD Facility:[facility] Start: 06-04-2024 End: 06-04-2024 Patient encounter procedure Pearl Calderon APRN.CNP Work Phone: Colorectal Surgery Comment on above: Follow-up examinatio n after colorectal surgery (Primary Dx) Start: 05-13-2024 End: 05-18-2024 Evaluation and management of inpatient CUBA HAYWOOD Facility:[facility] Start: 05-04-2024 End: 05-07-2024 Telephone encounter Dolly Nelson APRN.CNP Work Phone: Pre Anesthesia Comment on above: Anesthesia Consult Start: 04-30-2024 End: 04-30-2024 Admission to establishment Pacc Rush 1 Work Phone: Pre Anesthesia Start: 04-30-2024 End: 04-30-2024 Anesthesia consultation Pacc Rush 1 Work Phone: Pre Anesthesia Comment on above: Pre-op evaluation (P rimary Dx); Hyperlipidemia, unspecified hyperlipidemia type; Atrial fibrillation, unspecified type (HCC); Atherosclerosis of [place] coronary artery of [place] heart, unspecified whether angina present; Gastroesophageal reflux disease, unspecified whether esophagitis present; Essential hypertension Start: 04-30-2024 End: 04-30-2024 Preprocedural examination done [place] [address] Work Phone: [facility] Work Phone: Start: 04-30-2024 End: 04-30-2024 ambulatory CUBA HAYWOOD Facility:[facility] Start: 04-30-2024 Encounter for other preprocedural examination CUBA HAYWOOD [facility] Start: 04-28-2024 End: 04-28-2024 ambulatory CUBA HAYWOOD Facility:[facility] Start: 04-28-2024 End: 04-28-2024 Patient encounter procedure Cuba Haywood MD Work Phone: Colorectal Surgery Comment on above: Crohn's disease of b oth small and large intestine without complication (HCC) (Primary Dx) Start: 04-16-2024 End: 04-16-2024 Patient encounter procedure MD Perico Mccabe Work Phone: [facility] [place] Work Phone: Start: 04-16-2024 End: 04-16-2024 ambulatory MD Perico Mccabe Work Phone: [facility] Work Phone: Start: 04-05-2024 End: 04-05-2024 Patient encounter procedure MD Perico Mccabe Work Phone: [facility] Work Phone: Start: 10-01-2023 End: 10-01-2023 Evaluation and management of inpatient ZOIEYi BARNHART [facility] Start: 09-30-2023 End: 09-30-2023 Evaluation and management of inpatient LETHAASAF MONTOYA [facility] Start: 09-16-2023 End: 09-16-2023 Evaluation and management of inpatient ZOIE D [facility] Start: 09-16-2023 End: 09-16-2023 Evaluation and management of inpatient [facility] [facility] Start: 09-11-2023 End: 09-11-2023 ambulatory Enoch Carnes Other [facility] Other Start: 09-11-2023 Office outpatient vi sit 25 minutes Enoch Carnes [facility] Start: 09-11-2023 Telephone encounter Enoch velazquez [facility] Start: 08-27-2023 End: 08-28-2023 ambulatory CUBA Sandoval THOM [facility] Start: 08-27-2023 Encounter for other preprocedural examination LETHA MONTOYA [facility] Start: 08-27-2023 End: 08-27-2023 Patient encounter procedure [facility] Pre-Admission Testing 2 [facility] - Pre Admit Comment on above: Preop examination (P rimary Dx); Coronary artery disease, unspecified vessel or lesion type, unspecified whether angina present, unspecified whether [place] or transplanted heart Start: 08-27-2023 End: 08-27-2023 Preprocedural examination done Pm 2 [facility] Start: 05-19-2023 End: 05-19-2023 ambulatory Enoch Carnes Other [facility] Other Start: 05-19-2023 Telephone encounter Enoch velazquez [facility] Start: 04-24-2023 End: 04-24-2023 ambulatory Enoch Carnes Other [facility] Other Start: 04-24-2023 Telephone encounter Enoch velazquez [facility] Start: 04-23-2023 Office outpatient vi sit 25 minutes Enoch Carnes [facility] Start: 04-23-2023 Telephone encounter Enoch velazquez [facility] Start: 04-23-2023 End: 04-23-2023 Patient encounter procedure MD Perico Mccabe Work Phone: [facility] [place] Work Phone: Start: 04-23-2023 End: 04-23-2023 ambulatory MD Perico Mccabe Work Phone: [facility] Other Start: 11-04-2022 Encounter for other preprocedural examination ROSALINA LABOY [facility] Start: 11-04-2022 Encounter for preprocedural laboratory examination ROSALINA LABOY [facility] Start: 11-01-2022 End: 11-02-2022 ambulatory ROSALINA LABOY Facility:[facility] Start: 11-01-2022 End: 11-02-2022 Encounter for preprocedural laboratory examination ROSALINA LABOY Facility:[facility] Start: 10-24-2022 Encounter for other preprocedural examination ROSALINA LABOY [facility] Start: 10-21-2022 End: 10-23-[address] PERICO MCCABE . Facility:[facility] Start: 10-19-2022 End: 10-20-2022 ambulatory CL POTTS Facility:[facility] Start: 10-19-2022 End: 10-20-2022 Encounter for other preprocedural examination CL POTTS Facility:[facility] Start: 09-05-2022 End: 09-05-2022 ambulatory Enoch Carnes Other [facility] Other Start: 09-05-2022 Telephone encounter Enoch velazquez [facility] Start: 07-26-2022 End: 07-27-[address] Rose CARNES Facility:[facility] Start: 07-24-2022 End: 07-24-2022 ambulatory Enoch Carnes Other [facility] Other Start: 07-24-2022 Telephone encounter Enoch velazquez [facility] Start: 07-11-2022 End: 07-12-[address] PERICO MCCABE . Facility:[facility] Start: 07-09-2022 End: 07-09-2022 ambulatory Enoch Carnes Other [facility] Other Start: 07-09-2022 Office outpatient ne w 45 minutes Enoch Carnes [facility] Start: 07-04-2022 End: 07-05-[address] PERICO MCCABE . Facility:[facility] Start: 06-22-2022 End: 06-23-[address] PERICO MCCABE . Facility:[facility] Start: 06-10-2022 End: 06-10-2022 ambulatory MD Perico Mccabe Work Phone: [facility] Work Phone: Start: 06-10-2022 End: 06-10-2022 Patient encounter procedure MD Perico Mccabe Work Phone: [facility] Start: 05-27-2022 End: 05-27-2022 ambulatory Enoch Carnes Other [facility] Other Start: 05-27-2022 Telephone encounter Enoch Lizama [facility] Start: 05-08-2022 End: 05-09-2022 ambulatory Javid WILLIS Facility:[id number] Start: 05-04-2022 End: 05-05-[address] PERICO MCCABE . Facility: Start: 04-13-2022 End: 04-14-[address] PERICO MCCABE . Facility:[facility] Start: 04-01-2022 End: 04-01-2022 Patient encounter procedure Javid WILLIS [facility] [place] Start: 04-01-2022 End: 04-02-2022 ambulatory Javid WILLIS Facility:[facility] Start: 03-13-2022 End: 03-14-[address] PERICO MCCABE . Facility: Start: 03-08-2022 End: 03-09-[address] PERICO MCCABE . Facility:[facility] Start: 01-26-2021 End: 01-27-2021 ambulatory PHYSICIAN UNKNOWN Facility:[facility] Procedures Date Procedure Procedure Detail Performing Clinician Start: 04-30-2024 Antibody screen CUBA NOGUERA Comment on above: Order Comment: Speci men Type: BLOOD SPECIMEN Ordering Facility: [facility] Address: [address] [place] [address] Performed By: #### T [id number] #### CC [facility] BLOOD B[facility] [id number] [place] [address] [place] Start: 04-16-2024 CT of small intestine Lori River Andrey Work Phone: Start: 06-10-2022 Capsule endoscopy MD Hopper Work Phone: Start: 12-30-2020 Angioplasty of blood vessel Javid NILL Start: 11-30-2020 Insertion of stent i nto aorta Javid NILL Arthroplasty of knee Javid NILL Arthroscopy of knee Javid NILL Cardiac catheterization Parmjit aerose NILL Excision of cervical intervertebral disc Javid NILL Comment on above: C6-C7 Tonsillectomy Javid NILL Vasectomy Javid NILL Plan of Treatment Date Care Activity Detail Author Start: 05-15-2027 Diabetes Screening Diabetes Screenin [facility] Start: 04-30-2027 Diabetes Screening Diabetes Screenin [facility] Start: 08-27-2024 Adult BMI Screening Adult BMI Screen ing [facility] Start: 08-27-2024 Tobacco Screening Tobacco Screening [facility] Start: 08-20-2024 End: 08-20-2024 Patient encounter procedure 08/20/2024 10:40 AM EST Office Visit Colorectal Surgery [facility] [address] [address] [place], [place] [id number] Cuba Haywood MD [address] [place] [address] EST 3 mo f/u Open Vinh Hand Assist Ileocolic resection Colorectal Surgery Comment on above: EST 3 mo f/u Open La o Hand Assist Ileocolic resection Start: 05-13-2024 End: 05-13-2024 Admission to same day surgery center 05/13/2024 7:30 AM EDT - 05/13/2024 9:50 AM EDT Surgery [facility] Room [address] [id number] [place] [address] [address] LAPAROSCOPY ENTERECTOMY RESECTION SMALL INTESTINE, SINGLE RESECTION AND ANASTOMOSIS [facility] Comment on above: LAPAROSCOPY ENTERECT DAVID RESECTION SMALL INTESTINE, SINGLE RESECTION AND ANASTOMOSIS Start: 05-13-2024 End: 05-13-2024 Laps enterect rescj 1 small intest rescj & clark LAPAROSCOPY ENTERECTOMY RESECTION SMALL INTESTINE, SINGLE RESECTION AND ANASTOMOSIS Crohn's disease of both small and large intestine without complication (HCC) 05/13/2024 7:30 AM EDT [facility] Start: 05-13-2024 Subsequent hospital visit by physician 05/13/2024 7:30 AM EDT Hospital Encounter [facility] Operating Room [address] [place], [place] [id number] [place] [address] [address] Crohn's disease of both small and large intestine without complication (HCC) [K50.80] [facility] Comment on above: Crohn's disease of b oth small and large intestine without complication (HCC) [K50.80] Start: 05-02-2024 Covid-19 Vaccine ( season) Covid-19 Vaccine ( season) [facility] Start: 05-02-2024 Covid-19 Vaccine ( season) Covid-19 Vaccine ( season) [facility] Start: 05-02-2024 Influenza vaccination Influenza Vacc ine (#1) [facility] Start: 04-30-2024 End: 07-30-2024 CONFIRM BLOOD TYPE [facility] Comment on above: Expected: 04/30/2024 , Expires: 07/30/2024 Start: 04-30-2024 End: 07-30-2024 TYPE AND SCREEN,[address] [facility] Work Phone: Comment on above: Expected: 04/30/2024 , Expires: 07/30/2024 Start: 04-30-2024 End: 04-30-2024 Anesthesia consultation 04/30/2024 1:40 PM EDT PAT Pre Anesthesia [address] [place] [address] 1, Pacc Rush [address] [place] [address] LAPAROSCOPY ENTERECTOMY RESECTION SMALL INTESTINE, SINGLE RESECTION AND ANASTOMOSIS [7410] - Abdomen - N/A Pre Anesthesia Comment on above: LAPAROSCOPY ENTERECT DAVID RESECTION SMALL INTESTINE, SINGLE RESECTION AND ANASTOMOSIS [7410] - Abdomen - N/A Start: 04-29-2024 End: 07-29-2024 CBC W Auto Differential panel - Blood COMPLETE BLOOD COUNT AND DIFFERENTIAL Lab Routine Crohn's disease of both small and large intestine without complication (HCC) Expected: 04/29/2024 (Approximate), Expires: 07/29/[address] [facility] Work Phone: Comment on above: Expected: 04/29/2024 (Approximate), Expires: 07/29/2024 Start: 04-29-2024 End: 07-29-2024 Comprehensive metabolic 2000 panel - Serum or Plasma COMPREHENSIVE METABOLIC PANEL Lab Routine Crohn's disease of both small and large intestine without complication (HCC) Expected: 04/29/2024 (Approximate), Expires: 07/29/2024 [facility] Comment on above: Expected: 04/29/2024 (Approximate), Expires: 07/29/2024 Start: 2024 Advance Directive Discussion Advance Directive Discussion [facility] Start: 2024 Pneumococcal Vaccine : 65+ (1 of 1 - PCV) Pneumococcal Vaccine: 65+ (1 of 1 - PCV) [facility] Start: 09-30-2023 End: 09-30-2023 Admission to same day surgery center 09/30/2023 3:00 PM EST - 09/30/2023 3:45 PM EST Surgery [facility] - Surgery [address] [place] [id number] Letha Montoya MD [address] [place] [address] EXTRACTION CATARACT INTRAOCULAR LENS [79723 (CPT )] [facility] Comment on above: EXTRACTION CATARACT INTRAOCULAR LENS [68910 (CPT )] Start: 09-30-2023 Subsequent hospital visit by physician 09/30/2023 3:00 PM EST Hospital Encounter [facility] Surgery [address] [place] [phone] Letha Montoya MD [address] [place] [phone] [facility] Start: 09-30-2023 End: 09-30-2023 Xcapsl ctrc rmvl insj io lens prosth w/o ecp EXTRACTION CATARACT INTRAOCULAR LENS cataract left eye 09/30/2023 3:00 PM EST [facility] Start: 09-29-2023 End: 09-29-2023 ambulatory 09/29/2023 4:00 PM EST Support Visit [facility] Admit [address] [place] [address] [facility] Pre Admit Start: 09-16-2023 End: 09-16-2023 Admission to same day surgery center 09/16/2023 3:00 PM EST - 09/16/2023 3:[address] [facility] Surgery [address] [place] [phone] Letha Montoya MD [address] [place] [address] [phone] EXTRACTION CATARACT INTRAOCULAR LENS [49103 (CPT )] [facility] Comment on above: EXTRACTION CATARACT INTRAOCULAR LENS [79864 (CPT )] Start: 09-16-2023 Subsequent hospital visit by physician 09/16/2023 3:00 PM EST Hospital Encounter [facility] Surgery [address] [place] [address] Letha Montoya MD [address] [place] [address] [facility] Start: 09-16-2023 End: 09-16-2023 Xcapsl ctrc rmvl insj io lens prosth w/o ecp EXTRACTION CATARACT INTRAOCULAR LENS cataract right eye 09/16/2023 3:00 PM [facility] Start: 05-02-2023 Covid-19 Vaccine ( season) Covid-19 Vaccine ( season) [facility] Start: 05-02-2023 Influenza vaccination Influenza Vacc ine [facility] Start: 06-10-2022 [facility] Start: 2019 RSV Vaccine (1 - 1-d ose 60+ series) RSV Vaccine (1 - 1-dose 60+ series) [facility] Start: 2019 RSV Vaccine (1 - Ris k 60-74 years 1-dose series) RSV Vaccine (1 - Risk 60-74 years 1-dose series) [facility] Start: 2014 Prostate specific antigen measurement Prostate Cancer Screening Discussion [facility] Start: 2009 Administration of varicella zoster vaccine Zoster (Shingles) Vaccine (1 of 2) [facility] Start: 2009 Shingrix Vaccine (1 of 2) Shingrix Vaccine (1 of 2) [facility] Start: 2004 Diabetes Screening Diabetes Screenin g [facility] Start: 2004 Screening for malign ant neoplasm of colon [facility] Start: 1994 Lipid panel Lipid Screening [facility] Start: 1978 DTaP,Tdap and Td Vaccines (1 - Tdap) DTaP,Tdap and Td Vaccines (1 - Tdap) [facility] Start: 1978 Pneumococcal Vaccine : 50+ (1 of 2 - PCV) Pneumococcal Vaccine: 50+ (1 of 2 - PCV) [facility] Start: 1978 Shingrix Vaccine (1 of 2) Shingrix Vaccine (1 of 2) [facility] Start: 1978 Urine microalbumin profile DTaP,Tdap,Td Vaccine (1 - Tdap) [facility] Start: 1977 Adult BMI Follow Up Plan Adult BMI Follow Up Plan [facility] Start: 1977 Annual PCP Team 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 Disease Visit Annual PCP Team Chronic Disease Visit [facility] Start: 1977 Anxiety Screening Anxiety Screening [facility] Start: 1977 BP Controlled (<130/80) BP Controlle d (<130/80) [facility] Start: 1977 Depression Screening Depression Scre ening [facility] Start: 1977 Hepatitis B surface antibody level LDL Cholesterol [facility] Start: 1977 Hepatitis C screening Hepatitis C Sc reening [facility] Start: 1977 HIV screening HIV Screening [facility] Start: 1971 Depression Screening Depression Scre ing [facility] Start: 1965 Pneumococcal Vaccine : 65+ (1 of 2 - PCV) Pneumococcal Vaccine: 65+ (1 of 2 - PCV) [facility] ECG COMPLETE ECG COMPLETE ECG Routine Pre-op evaluation Ordered: 04/30/2024 [facility] Comment on above: Ordered: 04/30/2024 Payers Date Payer Category Payer Medicare [facility] MEDICARE [facility] MEDICARE ADVANTAGE PPO [id number] 2024-Present [phone] [address] [address] [place] [address] PPO [id number] 2024 Private Health Insurance [id number] 2023 Self-pay [id number] 2019 Unknown [employer] M MO [employer] [id number] 2019-Present [phone] [address] [place] [address] [id number] 1959 Self-pay [id number] 1959 Unknown [id number] 1959 Unknown [id number] 2.16.840.1.208026.3.579.2. 647 1959 Unknown [id number] 2.16.840.1.397732.3.579.2. 727 1959 Unknown [id number] 2.16.840.1.616500.3.579.2. 727 1959 Unknown [id number] 2.16.840.1.938841.3.579.2. 593 1959 Unknown [id number] 2.16.840.1.389918.3.579.2. 593 1959 Unknown [id number] 2.16.840.1.646000.3.579.2. 593 1959 Unknown [id number] 2.16.840.1.548051.3.579.2. 593 1959 Unknown [id number] 2.16.840.1.823020.3.579.2. 593 1959 Unknown [id number] 2.16.840.1.611545.3.579.2. 593 1959 Unknown [id number] 2.16.840.1.936389.3.579.2. 593 1959 Unknown [id number] 2.16.840.1.032901.3.579.2. 593 1959 Unknown [id number] 2.16.840.1.880151.3.579.2. 593 1959 Unknown [id number] 2.16.840.1.576978.3.579.2. 593 1959 Unknown [id number] 2.16.840.1.713920.3.579.2. 593 1959 Unknown [id number] 2.16.840.1.905614.3.579.2. 593 1959 Unknown [id number] 2.16.840.1.809368.3.579.2. 593 1959 Unknown [id number] 2.16.840.1.714506.3.579.2. 593 1959 Unknown [id number] 2.16.840.1.735040.3.579.2. 593 1959 Unknown [id number] 2.16.840.1.379902.3.579.2. 1286 1959 Unknown [id number] 2.16.840.1.445926.3.579.2. 1286 1959 Unknown [id number] 2.16.840.1.941916.3.579.2. 1286 1959 Unknown [id number] 2.16.840.1.577786.3.579.2. 128 1959 Unknown [id number] 2.16.840.1.922805.3.579.2. 1286 1959 Unknown [id number] 2.16.840.1.043049.3.579.2. 1286 1959 Unknown [id number] 2.16.840.1.230520.3.579.2. 1286 1959 Unknown [id number] 2.16.840.1.910459.3.579.2. 1286 Unknown Brent BC/PEDRITO [id number] Unknown [id number] 2.16.840.1.462008.3.579.2. 531 Unknown [id number] 2.16.840.1.395623.3.579.2. 531 Social History Date Type Detail Facility Start: 04-01-2022 End: 12-06-2024 Tobacco smoking status Never smoked tobacco (finding) [facility] [place] Tobacco smoking status Never [facility] [place] Start: 09-26-2020 End: 04-29-2024 Sex Assigned At Male [facility] [place] Start: 1960 Sex Assigned At Male Kristin [facility] Start: 01-12-2024 [facility] smoking consumption unknown (finding) [facility] Start: 02-12-2021 End: 08-27-2023 Tobacco use and exposure Smokeless tobacco non-user [facility] Start: 08-27-2023 End: 04-29-2024 Alcoholic beverage intake [facility] Start: 09-26-2020 End: 04-29-2024 History of Social function [facility] Start: 1960 Sex assigned at Not on file P Taptu Has the [employer], or [employer] threatened to shut off services in your home in past 12Mo No [facility] (I/We) worried [facility] (my/our) food would run out before (I/we) got money to buy more. Never true [facility] Start: 08-27-2023 Alcohol Comment [facility] Start: 12-06-2024 Sex Male (finding) [facility] Medical Equipment Procedure Code Equipment Code Equipment Origin al Text Equipment Identifier Dates Capsule endoscopy, for patency of lumen evaluation Video capsule endoscopy system [id number] [facility] Start: 06-10-2022 Goals Date Patient Goal Desired Activity /State Functional Status Date Assessment Result Facility 04-01-2022 Functional Status N/A [facility] [place] Clinical Notes 05-08-2022 to 01-04-2025 Cuba Haywood MD - 08/20/2024 10:40 AM Pearl Lizarraga APRN.DENTAL MECHANIC - 06/04/2024 12:20 PM Arleen Tanner OCCA - 06/04/2024 12:19 PM Arleen Tanner, TIMOTHYA - 06/04/2024 12:19 PM EDT Note Date & Type Note Facility 01-04-2025 Note [facility] Cardiology Clinic Note Chief Complaint: HPI: Ayo Alicia is a 64 y.o. male with a history of coronary artery disease, prior PCI/stent placement, dyslipidemia and hypertension here due to blood pressure issues. Apparently, the episode where his blood pressure was in the 70s to 80s systolic, had not eaten very well or kept up with fluid intake. He has a lot of stress at work; he is looking forward to retiring in November 30. He feels that a lot of the stress at work is worsening his blood pressure as well as his Crohn's disease. UPDATE 01/04/2025 Doing well Overall; he does have episodic chest pressure when he overexerts. He is also concerned that has been a lot more fatigued than usual. No orthopnea, no paroxysmal external dyspnea, no lower extremity edema. Cardiology ROS: Review of Systems Constitutional: Positive for malaise/fatigue. Musculoskeletal: Positive for arthritis, back pain, joint pain and myalgias. Gastrointestinal: Positive for abdominal pain. Neurological: Positive for light-headedness ( occasional ). All other systems reviewed and are negative. [...] no known allergies. Medications Current Outpatient Medications: apixaban (Eliquis) 5 mg tablet, Take 1 tablet (5 mg) by mouth in the morning and at bedtime., Disp: 180 tablet, Rfl: 3 aspirin 81 mg EC tablet, Take 81 mg by mouth in the morning., Disp: , Rfl: atorvastatin (Lipitor) 80 mg tablet, TAKE 1 TABLET BY MOUTH IN THE MORNING, Disp: 90 tablet, Rfl: 3 carvedilol (Coreg) 25 mg tablet, Take 1 tablet (25 mg) by mouth with breakfast and with evening meal., Disp: 28 tablet, Rfl: 0 Humira,CF, Pen 40 mg/0.4 mL pen injector kit pen-injector, , Disp: , Rfl: lisinopril 20 mg tablet, TAKE 1 TABLET BY MOUTH IN THE MORNING, Disp: 90 tablet, Rfl: 3 pantoprazole (ProtoNix) 40 mg EC tablet, TAKE 1 TABLET BY MOUTH ONCE DAILY DIRECTED, Disp: 90 tablet, Rfl: 3 spironolactone (Aldactone) 25 mg tablet, Take by mouth once daily as directed., Disp: , Rfl: Last Recorded Vitals BP 150/90 (BP Location: Left arm, Patient Position: Sitting, BP Cuff Size: Adult) Pulse 64 Resp 12 Ht 1.727 m (5' 8 ) Wt 91.4 kg (201 lb 9.6 oz) SpO2 98% BMI 30.65 kg/m??? Physical Examination: GENERAL: alert and oriented [...] normal wall motion Normal exercise stress test. Echo 10/22/2022: Conclusion: 1. Mild concentric left ventricular hypertrophy, normal left ventricle systolic function, LVEF 55 to 60% 2. Normal right RV systolic function and size 3. Moderate biatrial dilatation 4. Mild to moderate mitral regurgitation 5. Mild tricuspid regurgitation. 6. Moderately elevated right-sided pressures RVSP 47 mmHg 7. No pericardial effusion Echocardiogram 10/24/2021: Normal ventricular systolic function. Mild concentric left ventricular hypertrophy. No significant valvular dysfunction. No pericardial effusion Lexiscan stress test 11/06/2021: Conclusion: 1. Inferior perfusion defect fixed defect favored; wall motion is normal 2. No reversible ischemia 3. EF is 72% 4. No EKG changes CVL 01/26/21 FINAL IMPRESSIONS: 1. Severe, heavily calcific stenosis of the left anterior descending coronary artery successfully treated by intravascular lithotripsy and (more content not included)... [facility] 08-20-2024 History of Presen t illness Narrative COLORECTAL SURGERY August 20, 2024 Ayo Alicia 64 year old Chief Complaint: post op, Crohn's disease History of Present Illness: Ayo Alicia is a 64 year old male presents today s/p Laparoscopic Ileocolic Resection (Partial Colectomy) on 05/13/24 due to Crohn's disease, retained endoscopy capsule. Operative Findings: Extremely thickened friable ileal mesentery, normal colon, capsule found stuck in distal ileum prior to stricture Surgical Pathology FINAL DIAGNOSIS Terminal ileum, cecum, and appendix, ileocecectomy: - Segment of small bowel with multiple strictures, patchy chronic active enteritis, ulcers, pyloric gland metaplasia, and inflammatory-type polyps. - Retained endoscopy capsule. - Appendix with fibrolipomatous obliteration. - Cecum with no diagnostic abnormality. - Benign lymph nodes with paracortical hyperplasia. - See comment. Doing well. No pain. Tolerating diet with good bowel function PAST MEDICAL HISTORY Diagnosis Date A-fib (HCC) CAD (coronary artery disease) Crohn's disease (HCC) GERD (gastroesophageal reflux disease) HLD (hyperlipidemia) HTN (hypertension) PAST SURGICAL HISTORY Procedure Laterality Date PAST SURGICAL HISTORY OF Neck and back sx PAST SURGICAL HISTORY OF removal of cyst in wrist TOTAL KNEE REPLACEMENT Current Outpatient Medications Medication Sig Dispense Refill apixaban (ELIQUIS) 5 mg tab(s) Take 1 tablet by mouth two times a day. OK to resume on 05/19/2024 acetaminophen (TYLENOL) 500 mg tablet Take 2 tablets by mouth every 6 hours. 50 tablet 0 Bacillus coagulan-calcium carb (DIGESTIVE ADVANTAGE PROBIOTIC) 2 billion cell- 140 mg cap Take 1 capsule by mouth once daily. 30 capsule 0 methocarbamol (ROBAXIN) 750 mg tablet Take 1 tablet by mouth three times a day as needed for muscle spasms. 15 tablet 0 adalimumab (HUMIRA,CF, PEN [id number]-LS-YK) 80 mg/0.8 mL pen kit Inject 80 mg subcutaneously every 2 weeks. carvedilol (COREG) 25 mg tablet Take 25 mg by mouth two times a day with meals. lisinopril (ZESTRIL) 20 mg tablet Take 20 mg by mouth once daily. pantoprazole DR (PROTONIX) 40 mg tablet Take 40 mg by mouth once daily. aspirin 81 mg cap Take 81 mg by mouth once daily. atorvastatin (LIPITOR) 80 mg tablet atorvastatin 80 mg tablet TAKE 1 TABLET BY MOUTH DAILY sildenafil (VIAGRA) 100 mg tablet No current facility-administered medications for this visit. ALLERGIES No Known Allergies FAMILY HISTORY Problem Relation Age of Onset Anesthesia Problems No Family History Social History Tobacco Use Smoking status: Never Smokeless tobacco: Never Vaping Use Vaping status: Never Used Substance Use Topics Alcohol use: Not Currently Drug use: Not Currently Physical Exam: BP 150/71 (BP Site: Right Arm, BP Position: Sitting, BP Cuff Size: Regular Adult) Pulse 77 Temp 36.3 C (97.3 F) SpO2 98% General Appearance: Well appearing, alert, in no acute distress, well-hydrated, well nourished. Abdomen: Soft, nontender, incisions well-healed Assessment Assessment and Plan: Ayo Alicia is a 64 year old male status post laparoscopic ileocolic resection, well recovered. No further restrictions. He can return to see me as needed Medical Decision Making: Data Reviewed: Tests & Documents Reviewed/ordered: Review of prior notes from myself Review of prior operative reports Review of Pathology Review of Imaging: CT Abdomen, CT Pelvis Review of Labs: CBC, BMP Review of Procedures / Tests: Colonoscopy I have independently interpreted: CT Abdomen, CT Pelvis Risk of morbidity, mortality and/or complications of treatment plan: mauricio Haywood MD Colorectal Surgery documented in this encounter [facility] 08-20-2024 Note HNO ID: [id number] Author: CUBA HAYWOOD MD Service: ? Author Type: Physician Type: Progress Notes Filed: 08/21/2024 22:03 Note Text: COLORECTAL SURGERY August 20, 2024 Ayo Alicia 64 year old Chief Complaint: post op, Crohn's disease History of Present Illness: Ayo Alicia is a 64 year old male presents today s/p Laparoscopic Ileocolic Resection (Partial Colectomy) on 05/13/24 due to Crohn's disease, retained endoscopy capsule. Operative Findings: Extremely thickened friable ileal mesentery, normal colon, capsule found stuck in distal ileum prior to stricture Surgical Pathology FINAL DIAGNOSIS Terminal ileum, cecum, and appendix, ileocecectomy: - Segment of small bowel with multiple strictures, patchy chronic active enteritis, ulcers, pyloric gland metaplasia, and inflammatory-type polyps. - Retained endoscopy capsule. - Appendix with fibrolipomatous obliteration. - Cecum with no diagnostic abnormality. - Benign lymph nodes with paracortical hyperplasia. - See comment. Doing well. No pain. Tolerating diet with good bowel function PAST MEDICAL HISTORY Diagnosis Date A-fib (HCC) CAD (coronary artery disease) Crohn's disease (HCC) GERD (gastroesophageal reflux disease) HLD (hyperlipidemia) HTN (hypertension) PAST SURGICAL HISTORY Procedure Laterality Date PAST SURGICAL HISTORY OF Neck and back sx PAST SURGICAL HISTORY OF removal of cyst in wrist TOTAL KNEE REPLACEMENT Current Outpatient Medications Medication Sig Dispense Refill apixaban (ELIQUIS) 5 mg tab(s) Take 1 tablet by mouth two times a day. OK to resume on 05/19/2024 acetaminophen (TYLENOL) 500 mg tablet Take 2 tablets by mouth every 6 hours. 50 tablet 0 Bacillus coagulan-calcium carb (DIGESTIVE ADVANTAGE PROBIOTIC) 2 billion cell- 140 mg cap Take 1 capsule by mouth once daily. 30 capsule 0 methocarbamol (ROBAXIN) 750 mg tablet Take 1 tablet by mouth three times a day as needed for muscle spasms. 15 tablet 0 adalimumab (HUMIRA,CF, PEN [id number]) 80 mg/0.8 mL pen kit Inject 80 mg subcutaneously every 2 weeks. carvedilol (COREG) 25 mg tablet Take 25 mg by mouth two times a day with meals. lisinopril (ZESTRIL) 20 mg tablet Take 20 mg by mouth once daily. pantoprazole DR (PROTONIX) 40 mg tablet Take 40 mg by mouth once daily. aspirin 81 mg cap Take 81 mg by mouth once daily. atorvastatin (LIPITOR) 80 mg tablet atorvastatin 80 mg tablet TAKE 1 TABLET BY MOUTH DAILY sildenafil (VIAGRA) 100 mg tablet No current facility-administered medications for this visit. ALLERGIES No Known Allergies FAMILY HISTORY Problem Relation Age of Onset Anesthesia Problems No Family History Social History Tobacco Use Smoking status: Never Smokeless tobacco: Never Vaping Use Vaping status: Never Used Substance Use Topics Alcohol use: Not Currently Drug use: Not Currently Physical Exam: BP 150/71 (BP Site: Right Arm, BP Position: Sitting, BP Cuff Size: Regular Adult) Pulse 77 Temp 36.3 ?C (97.3 ?F) SpO2 98% General Appearance: Well appearing, alert, in no acute distress, well-hydrated, well nourished. Abdomen: Soft, nontender, incisions well-healed Assessment Assessment and Plan: Ayo Alicia is a 64 year old male status post laparoscopic ileocolic resection, well recovered. No further restrictions. He can return to see me as needed Medical Decision Making: Data Reviewed: Tests AND Documents Reviewed/ordered: Review of prior notes from myself Review of prior operative reports Review of Pathology Review of Imaging: CT Abdomen, CT Pelvis Review of Labs: CBC, BMP Review of Procedures / Tests: Colonoscopy I have independently interpreted: CT Abdomen, CT Pelvis Risk of morbidity, mortality and/or complications of treatment plan: mauricio Haywood MD Colorectal Surgery [facility] 07-20-2024 Note Pt is here for [facility]. Review of Systems Constitutional: Positive for malaise/fatigue. Musculoskeletal: Positive for arthritis, back pain, joint pain and myalgias. Gastrointestinal: Positive for abdominal pain. Neurological: Positive for light-headedness ( occasional ). All other systems reviewed and are negative. [facility] 07-20-2024 Note Cardiovascular Medic [facility] SUBJECTIVE Chief Complaint Patient presents with Coronary Artery Disease Hypertension Hyperlipidemia Ayo Alicia is a 64 y.o. male here for follow-up. HPI PMHx: -CAD - ERIC to LAD 01/26/21 (cath also noted severe prox and mid vessel to a short PDA and moderate dz to LCx) -PAF/flutter s/p ablation -HTN -HLD -Aortic, mitral, tricuspid valve regurg 07/20/2024 Since last seen, he had colon surgery. They removed part of his colon and the retained endoscopy capsule. His sx's have been much improved. He has been doing well from a cardiac standpoint. He got some palpitations while raking leaves the other day. This is the most active he has been in the past 2 years. He hasn't been checking BP at home recently. He has some occasional dizziness if he stands too quickly. He has leg swelling, stable. Denies CP, dyspnea, orthopnea, PND, syncope. Patient Active Problem List Diagnosis Heart valve disease Hypertension Atrial fibrillation (CMS/HCC) Coronary artery disease Hyperlipidemia Chest pain Cholelithiasis Disorder of intervertebral disc of cervical spine Erectile dysfunction Fatigue Iron deficiency anemia senior care current use of anticoagulant therapy Aortic valve [...] Known Allergies ROS Constitutional: Positive for malaise/fatigue. Musculoskeletal: Positive for arthritis, back pain, joint pain and myalgias. Gastrointestinal: Positive for abdominal pain. Neurological: Positive for light-headedness ( occasional ). All other systems reviewed and are negative. OBJECTIVE Visit Vitals BP 152/72 (BP Location: Right arm, Patient Position: Sitting) Pulse 68 Ht 1.727 m (5' 8 ) Wt 88.5 kg (195 lb) SpO2 98% BMI 29.65 kg/m??? Smoking Status Never BSA 2.06 m??? Medications: Current Outpatient Medications: apixaban (Eliquis) 5 mg tablet, Take 1 tablet (5 mg) by mouth in the morning and at bedtime., Disp: 180 tablet, Rfl: 3 aspirin 81 mg EC tablet, Take 81 mg by mouth in the morning., Disp: , Rfl: atorvastatin (Lipitor) 80 mg tablet, Take 1 tablet (80 mg) by mouth in the morning., Disp: 90 tablet, Rfl: 3 carvedilol (Coreg) 25 mg tablet, Take 1 tablet (25 mg) by mouth with breakfast and with evening meal., Disp: 28 tablet, Rfl: 0 lisinopril 20 mg tablet, Take 1 tablet (20 mg) by mouth in the morning., Disp: 90 tablet, Rfl: 3 pantoprazole (ProtoNix) 40 mg EC tablet, Take 1 tablet (40 mg) by mouth once daily as directed., Disp: 90 tablet, Rfl: 3 Humira,CF, Pen 40 mg/0.4 mL pen injector kit pen-injector, , Disp: , Rfl: spironolactone (Aldactone) 25 mg tablet, Take by mouth once daily as directed., Disp: , Rfl: Physical Exam Constitutional: Appearance: [...] Cervical back: Neck supple. Right lower leg: Edema present. Left lower leg: Edema present. Comments: +1 BLE pitting edema Skin: General: Skin is warm and dry. Neurological: General: No focal deficit present. Mental Status: He is alert and oriented to person, place, and time. Psychiatric: Mood and Affect: Mood normal. Behavior: Behavior normal. Thought Content: Thought content normal. Judgment: Judgment normal. Labs: 04/06/2024 WBC 6.1, hgb 8.3, plt 309 Cr 0.94, BUN 17, K 3.9, Na 141, eGFR>60, AST 12, ALT 14 05/27/23 Hgb (more content not included)... [facility] 06-04-2024 History of Presen t illness Narrative COLORECTAL SURGERY June 04, 2024 Ayo Alicia 64 year old This consult was requested by Dr. Haywood and my final recommendations will be communicated to the requesting health care provider by way of the shared medical record for internal providers or letter via the [employer] for external providers. Chief Complaint: post-op visit History of Present Illness: Ayo Alicia is a 64 year old male s/p a Laparoscopic Ileocolic Resection (Partial Colectomy) on 05/13/[address] Haywood for Crohn's disease, retained endoscopy capsule. He presents today for his post-op visit. Doing well today and feels much better. Pain is minimal and tolerable, he rarely takes Tylenol at this point. His right lower quadrant has been bothering him recently, he mowed 2 lawns in 1 day and that later that evening he started feeling right lower quadrant stabbing pain periodically. Denies fevers and chills, denies nausea, eating and drinking without pain or bloating which he is quite pleased about. Bowel movements are soft brown and nonbloody, denies diarrhea or constipation. After surgery he states has been the first time he is able to eat a full meal, stand up straight without discomfort, and does not have to take antacids after meals. He has been told by multiple friends and family how much better he looks. We discussed adhering to the lifting and activity restriction at this time. We discussed diet advancement. He reports that Dr. Haywood called him earlier today to discuss surgical pathology which she was happy about. He has an upcoming appointment with Dr. Arias next week. Surgical pathology FINAL DIAGNOSIS Terminal ileum, cecum, and appendix, ileocecectomy: - Segment of small bowel with multiple strictures, patchy chronic active enteritis, ulcers, pyloric gland metaplasia, and inflammatory-type polyps. - Retained endoscopy capsule. - Appendix with fibrolipomatous obliteration. - Cecum with no diagnostic abnormality. - Benign lymph nodes with paracortical hyperplasia. - See comment. PAST MEDICAL HISTORY Diagnosis Date A-fib (HCC) CAD (coronary artery disease) Crohn's disease (HCC) GERD (gastroesophageal reflux disease) HLD (hyperlipidemia) HTN (hypertension) PAST SURGICAL HISTORY Procedure Laterality Date PAST SURGICAL HISTORY OF Neck and back sx PAST SURGICAL HISTORY OF removal of cyst in wrist TOTAL KNEE REPLACEMENT Current Outpatient Medications Medication Sig Dispense Refill apixaban (ELIQUIS) 5 mg tab(s) Take 1 tablet by mouth two times a day. OK to resume on 05/19/2024 acetaminophen (TYLENOL) 500 mg tablet Take 2 tablets by mouth every 6 hours. 50 tablet 0 Bacillus coagulan-calcium carb (DIGESTIVE ADVANTAGE PROBIOTIC) 2 billion cell- 140 mg cap Take 1 capsule by mouth once daily. 30 capsule 0 methocarbamol (ROBAXIN) 750 mg tablet Take 1 tablet by mouth three times a day as needed for muscle spasms. 15 tablet 0 adalimumab (HUMIRA,CF, PEN [id number]) 80 mg/0.8 mL pen kit Inject 80 mg subcutaneously every 2 weeks. carvedilol (COREG) 25 mg tablet Take 25 mg by mouth two times a day with meals. lisinopril (ZESTRIL) 20 mg tablet Take 20 mg by mouth once daily. pantoprazole DR (PROTONIX) 40 mg tablet Take 40 mg by mouth once daily. aspirin 81 mg cap Take 81 mg by mouth once daily. atorvastatin (LIPITOR) 80 mg tablet atorvastatin 80 mg tablet TAKE 1 TABLET BY MOUTH DAILY sildenafil (VIAGRA) 100 mg tablet No current facility-administered medications for this visit. ALLERGIES No Known Allergies FAMILY HISTORY Problem Relation Age of Onset Anesthesia Problems No Family History Social History Tobacco Use Smoking status: Never Smokeless tobacco: Never Vaping Use Vaping status: Never Used Substance Use Topics Alcohol use: Not Currently Drug use: Not Currently Physical Exam: BP 137/99 (BP Site: Right Arm, BP Position: Sitting, BP Cuff Size: Regular Adult) Pulse 69 Temp 36.6 C (97.8 F) SpO2 99% General Appearance: Well appearing, alert, in no acute distress, well-hydrated, well nourished. Abdomen: Soft, nontender, nondistended. Incisions healing well and glue is gone. Mild tenderness in the right lower quadrant Assessment Assessment and Plan: Ayo Alicia is a 64 year old male s/p a Laparoscopic Ileocolic Resection (Partial Colectomy) on 05/13/2024. -doing well post-op, expected recovery course. -If right lower quadrant pain worsens at all he will call for evaluation. Recommended to remain on lifting and activity restriction for full 6 weeks. -OK to slowly advance diet as tolerated. -continue lifting and activity restrictions for 4-6 weeks post-op. -continue probiotics for 1 month post-op. -further follow up with Dr. Haywood in 3 months, scheduled for the patient today. -continue to follow with Dr. Arias gastroenterology, appointment early next week. Medical Decision Making: Data Reviewed: Tests & Documents Reviewed/ordered: Review of prior notes from hospitalization Review of prior operative reports Review of Pathology I have independently interpreted: n/a I have discussed Ayo Alicia's treatment plan and/or results with the patient, Dr. Haywood. Risk of morbidity, mortality and/or complications of treatment plan: lindsay Calderon APRN.CNP Colorectal Surgery documented in this encounter [facility] 06-04-2024 Note HNO ID: [id number] Author: PEARL CALDERON APRN.CNP Service: ? Author Type: Nurse Practitioner Type: Progress Notes Filed: 06/04/2024 12:46 Note Text: COLORECTAL SURGERY June 04, 2024 Ayo Alicia 64 year old This consult was requested by Dr. Haywood and my final recommendations will be communicated to the requesting health care provider by way of the shared medical record for internal providers or letter via the [employer] for external providers. Chief Complaint: post-op visit History of Present Illness: Ayo Alicia is a 64 year old male s/p a Laparoscopic Ileocolic Resection (Partial Colectomy) on 05/13/[address] Haywood for Crohn's disease, retained endoscopy capsule. He presents today for his post-op visit. Doing well today and feels much better. Pain is minimal and tolerable, he rarely takes Tylenol at this point. His right lower quadrant has been bothering him recently, he mowed 2 lawns in 1 day and that later that evening he started feeling right lower quadrant stabbing pain periodically. Denies fevers and chills, denies nausea, eating and drinking without pain or bloating which he is quite pleased about. Bowel movements are soft brown and nonbloody, denies diarrhea or constipation. After surgery he states has been the first time he is able to eat a full meal, stand up straight without discomfort, and does not have to take antacids after meals. He has been told by multiple friends and family how much better he looks. We discussed adhering to the lifting and activity restriction at this time. We discussed diet advancement. He reports that Dr. Haywood called him earlier today to discuss surgical pathology which she was happy about. He has an upcoming appointment with Dr. Arias next week. Surgical pathology FINAL DIAGNOSIS Terminal ileum, cecum, and appendix, ileocecectomy: - Segment of small bowel with multiple strictures, patchy chronic active enteritis, ulcers, pyloric gland metaplasia, and inflammatory-type polyps. - Retained endoscopy capsule. - Appendix with fibrolipomatous obliteration. - Cecum with no diagnostic abnormality. - Benign lymph nodes with paracortical hyperplasia. - See comment. PAST MEDICAL HISTORY Diagnosis Date A-fib (HCC) CAD (coronary artery disease) Crohn's disease (HCC) GERD (gastroesophageal reflux disease) HLD (hyperlipidemia) HTN (hypertension) PAST SURGICAL HISTORY Procedure Laterality Date PAST SURGICAL HISTORY OF Neck and back sx PAST SURGICAL HISTORY OF removal of cyst in wrist TOTAL KNEE REPLACEMENT Current Outpatient Medications Medication Sig Dispense Refill apixaban (ELIQUIS) 5 mg tab(s) Take 1 tablet by mouth two times a day. OK to resume on 05/19/2024 acetaminophen (TYLENOL) 500 mg tablet Take 2 tablets by mouth every 6 hours. 50 tablet 0 Bacillus coagulan-calcium carb (DIGESTIVE ADVANTAGE PROBIOTIC) 2 billion cell- 140 mg cap Take 1 capsule by mouth once daily. 30 capsule 0 methocarbamol (ROBAXIN) 750 mg tablet Take 1 tablet by mouth three times a day as needed for muscle spasms. 15 tablet 0 adalimumab (HUMIRA,CF, PEN [id number]) 80 mg/0.8 mL pen kit Inject 80 mg subcutaneously every 2 weeks. carvedilol (COREG) 25 mg tablet Take 25 mg by mouth two times a day with meals. lisinopril (ZESTRIL) 20 mg tablet Take 20 mg by mouth once daily. pantoprazole DR (PROTONIX) 40 mg tablet Take 40 mg by mouth once daily. aspirin 81 mg cap Take 81 mg by mouth once daily. atorvastatin (LIPITOR) 80 mg tablet atorvastatin 80 mg tablet TAKE 1 TABLET BY MOUTH DAILY sildenafil (VIAGRA) 100 mg tablet No current facility-administered medications for this visit. ALLERGIES No Known Allergies FAMILY HISTORY Problem Relation Age of Onset Anesthesia Problems No Family History Social History Tobacco Use Smoking status: Never Smokeless tobacco: Never Vaping Use Vaping status: Never Used Substance Use Topics Alcohol use: Not Currently Drug use: Not Currently Physical Exam: BP 137/99 (BP Site: Right Arm, BP Position: Sitting, BP Cuff Size: Regular Adult) Pulse 69 Temp 36.6 ?C (97.8 ?F) SpO2 99% General Appearance: Well appearing, alert, in no acute distress, well-hydrated, well nourished. Abdomen: Soft, nontender, nondistended. Incisions healing well and glue is gone. Mild tenderness in the right lower quadrant Assessment Assessment and Plan: Ayo Alicia is a 64 year old male s/p a Laparoscopic Ileocolic Resection (Partial Colectomy) on 05/13/2024. -doing well post-op, expected recovery course. -If right lower quadrant pain worsens at all he will call for evaluation. Recommended to remain on lifting and activity restriction for full 6 weeks. -OK to slowly advance diet as tolerated. -continue lifting and activity restrictions for 4-6 weeks post-op. -continue probiotics for 1 month post-op. -further follow up with Dr. Haywood in 3 months, scheduled (more content not included)... [facility] 06-04-2024 Nurse Note What is the reason for your visit today? Post op Who is your referring physician? Are you having poor oral intake? NO Have you had unintentional weight loss of 15 lbs/7 Kg in the last 3-6 months? NO Bowels: regular or soft Wound: clean & dry Temperature: No Drains: No [facility] 06-04-2024 Nurse Note What is the reason for your visit today? Post op Who is your referring physician? Are you having poor oral intake? NO Have you had unintentional weight loss of 15 lbs/7 Kg in the last 3-6 months? NO Bowels: regular or soft Wound: clean & dry Temperature: No Drains: No documented in this encounter [facility] 05-18-2024 Note HNO ID: [id number] Author: ?, ?, ? Service: ? Author Type: ? Type: Plan of Care Filed: 05/18/2024 18:00 Note Text: PHARMACY BEDSIDE DELIVERY SERVICE Patient Name: Ayo Alicia The marked outpatient medications were Filled at: [facility] and delivered to the patient's bedside to [place] [id number]. Medication List START taking these medications DIGESTIVE ADVANTAGE PROBIOTIC 2 billion cell- 140 mg Cap Generic drug: Bacillus coagulan-calcium carb Take 1 capsule by mouth once daily. Start taking on: May 19, 2024 methocarbamol 750 mg tablet Commonly known as: ROBAXIN Take 1 tablet by mouth three times a day as needed for muscle spasms. oxyCODONE IR 5 mg immediate release tablet Commonly known as: ROXICODONE Take 1 tablet by mouth every 6 hours as needed for up to 7 days. CHANGE how you take these medications acetaminophen 500 mg tablet Commonly known as: TYLENOL Take 2 tablets by mouth every 6 hours. What changed: medication strength how much to take when to take this reasons to take this apixaban 5 mg tab(s) Commonly known as: ELIQUIS Take 1 tablet by mouth two times a day. OK to resume on 05/19/2024 What changed: additional instructions CONTINUE taking these medications aspirin 81 mg Cap atorvastatin 80 mg tablet Commonly known as: LIPITOR carvedilol 25 mg tablet Commonly known as: COREG HUMIRA(CF) PEN [id number] 80 mg/0.8 mL pen kit Generic drug: adalimumab lisinopril 20 mg tablet Commonly known as: ZESTRIL PROTONIX 40 mg tablet Generic drug: pantoprazole DR sildenafil 100 mg tablet Commonly known as: VIAGRA You might also be taking other medications not listed above. If you have questions about any of your other medications, talk to the person who prescribed them or your Primary Care Provider. STOP taking these medications metroNIDAZOLE 500 mg tablet Commonly known as: FLAGYL neomycin 500 mg tablet Lis Herbert PAGER: [phone] May 18, 2024 5:59 PM [facility] 05-18-2024 Note HNO ID: [id number] Author: NASIM JENKINS LSW Service: Care Management Author Type: Industrial Services Worker Type: Care Mgt Progress Note Filed: 05/18/2024 13:22 Note Text: CARE MANAGEMENT DISCHARGE NOTE SERVICE DATE: May 18, 2024 SERVICE TIME: 1:15 Admission Date: 05/13/2024 LOS: 5 days Discharge Arrangement Discharge Arrangement: Home with Self Care Services Arranged Medical Services: Other: See Comment (NA) Caregiver Assessment Caregiver is ready, willing and able to meet the patient's needs as recommended by the inter-professional team: No Caregiver needed Transportation Arrangements Transportation Arrangements: Car Handoff Communication: Handoff to: Primary Care Physician Primary Care Physician Name/Phone: Perico Mccabe MD [phone] Additional Information: Patient is ambulating the sotelo unassisted with no DME. No skilled needs. SIGNATURE: FIDELINA Lara PATIENT NAME: Ayo Alicia DATE: May 18, 2024 TIME: 1:20 PM CONTACT #: [phone] IMM Follow Up Copy Given: Yes Copy given to:: Patient Method: In Person [facility] 05-18-2024 Note HNO ID: [id number] Author: AMADA PETTIT MD Service: Colorectal Author Type: Resident Type: Progress Notes Filed: 05/18/2024 07:59 Note Text: COLORECTAL SURGERY PROGRESS NOTE Patient name: Ayo Alicia Date of : 1960 Admission date: 05/13/2024 ASSESSMENT AND PLAN: Ayo Alicia is a 64 year old male with PMHx of HTN, HLD, CAD on ASA 81, A FIB (on Eliquis), GERD, and Crohn's disease (diagnosed 2021) on Humira who underwent capsule endoscopy in 2021 with retained capsule at terminal ileum, with course notable for intermittent obstructive symptoms following this procedure. He presented 05/13/24 for elective resection of affected bowel and is now 5 Days Post-Op s/p laparoscopic assisted ileocolic resection with ileocolic anastomosis. He remains afebrile and hemodynamically stable with pain well controlled. Postoperative course notable for ileus with x1 episode of emesis on 05/15. He has since had return of bowel function with abdominal distension improved. Anticipate discharge home today if diet advancement tolerated. - Follow up 05/13 OR pathology - Pain: Multimodal pain regimen - CV: VS monitoring; home carvedilol, atorvastatin - Pulm: Minimize use of supplemental oxygen, encourage IS - FEN: GIS, supplements, electrolyte repletion PRN - GI: PRN antiemetics - Renal: Monitor UOP, trend BUN/Cr - Heme: No indication for transfusion, trend H/H - ID: No indication for antimicrobials - MSK: PT/OT; Encourage ambulation, OOB - VTE Ppx: SCDs, Lovenox; hold home Eliquis (will resume on 05/19 if discharged) - Disposition: RNF - anticipate discharge this afternoon if diet tolerated Plan of care discussed with staff. Amada Pettit MD General Surgery Resident, PGY-2 05/18/2024 7:57 AM Pager: [phone] SUBJECTIVE: - No acute events overnight - Afebrile, hemodynamically stable - Pain well controlled - Tolerated full liquids without nausea or emesis - Passing flatus, x2 BMs recorded OBJECTIVE: Physical Exam: BP 160/73 Pulse 66 Temp 36.8 ?C (98.2 ?F) (Oral) Resp 16 Ht 172.7 cm (5' 8 ) Wt 79.4 kg (175 lb) SpO2 98% BMI 26.61 kg/m? Body mass index is 26.61 kg/m?. General: Resting in bed. No acute distress. Heart: Regular rate and rhythm. Lungs: Unlabored respirations on room air. Symmetric chest rise. Abdomen: Soft, mildly distended but significantly improved from prior. Remains nontender. No rebound, guarding, or rigidity. Midline and laparoscopic incisions well-approximated, clean, and dry. Extremities: Warm and well-perfused. No gross deformity. Intake and Output (past 24h): Intake/Output Summary (Last 24 hours) at 05/18/2024 0757 Last data filed at 05/18/2024 0509 Gross per 24 hour Intake 320 ml Output 0 ml Net 320 ml LDAs: Lines, Drains, and Airways Line Duration Peripheral 05/13/24 0718 Left Hand 5 days Peripheral 05/13/24 0905 Right Hand 18 Gauge 4 days Recent Labs: Recent Labs 05/15/24 1855 WBC 12.88* HB 8.4* HCT 27.6* PLT 382 [facility] 05-17-2024 Note HNO ID: [id number] Author: AMADA PETTIT MD Service: Colorectal Author Type: Resident Type: Progress Notes Filed: 05/17/2024 08:20 Note Text: COLORECTAL SURGERY PROGRESS NOTE Patient name: Ayo Alicia Date of : 1960 Admission date: 05/13/2024 ASSESSMENT AND PLAN: Ayo Alicia is a 64 year old male with PMHx of HTN, HLD, CAD on ASA 81, A FIB (on Eliquis), GERD, and Crohn's disease (diagnosed 2021) on Humira who underwent capsule endoscopy in 2021 with retained capsule at terminal ileum, with course notable for intermittent obstructive symptoms following this procedure. He presented 05/13/24 for elective resection of affected bowel and is now 4 Days Post-Op s/p laparoscopic assisted ileocolic resection with ileocolic anastomosis. He remains afebrile and hemodynamically stable with pain well controlled. Postoperative course notable for ileus with x1 episode of emesis on 05/15. He has since had return of bowel function with several bowel movements recorded yesterday, although abdomen remains distended. Will advance diet and continue to monitor. - Follow up 05/13 OR pathology - Pain: Multimodal pain regimen - CV: VS monitoring; home carvedilol, atorvastatin - Pulm: Minimize use of supplemental oxygen, encourage IS - FEN: FLD, HLIV, supplements, electrolyte repletion PRN - GI: PRN antiemetics, d/c Entereg - Renal: Monitor UOP, trend BUN/Cr - Heme: No indication for transfusion, trend H/H - ID: No indication for antimicrobials - MSK: PT/OT; Encourage ambulation, OOB - VTE Ppx: SCDs, Lovenox; hold home Eliquis - Disposition: RNF Plan of care discussed with staff. Amada Pettit MD General Surgery Resident, PGY-2 05/17/2024 5:58 AM Pager: [phone] SUBJECTIVE: - No acute events overnight - Afebrile, hemodynamically stable - Pain well controlled - Tolerated clear liquids without nausea or emesis - Passing inconsistent flatus, x7 loose BMs recorded OBJECTIVE: Physical Exam: BP 121/64 Pulse 62 Temp 36.9 ?C (98.4 ?F) (Oral) Resp 16 Ht 172.7 cm (5' 8 ) Wt 79.4 kg (175 lb) SpO2 98% BMI 26.61 kg/m? Body mass index is 26.61 kg/m?. General: Resting in bed. No acute distress. Heart: Regular rate and rhythm. Lungs: Unlabored respirations on room air. Symmetric chest rise. Abdomen: Soft, moderately distended but nontender. No rebound, guarding, or rigidity. Midline and laparoscopic incisions well-approximated, clean, and dry. Extremities: Warm and well-perfused. No gross deformity. Intake and Output (past 24h): Intake/Output Summary (Last 24 hours) at 05/17/2024 0558 Last data filed at 05/17/2024 0458 Gross per 24 hour Intake 2571 ml Output 1000 ml Net 1571 ml LDAs: Lines, Drains, and Airways Line Duration Peripheral 05/13/24 0718 Left Hand 3 days Peripheral 05/13/24 0905 Right Hand 18 Gauge 3 days Recent Labs: Recent Labs 05/15/24 1855 05/15/24 0544 05/14/24 1152 WBC 12.88* 11.29* 17.27* HB 8.4* 7.1* 8.3* HCT 27.6* 23.5* 26.3* PLT 382 299 382 NA -- 139 -- K -- 4.0 -- CHLOR -- 106 -- CO2 -- 25 -- CREAT -- 0.87 -- BUN -- 19 -- GLUC -- 119* -- MG -- 1.9 -- CA -- 8.3* -- [facility] 05-16-2024 Note HNO ID: [id number] Author: VANITA CLAIRE RN Service: Care Management Author Type: Registered Nurse Type: Care Mgt Progress Note Filed: 05/16/2024 16:09 Note Text: CARE MANAGEMENT PROGRESS NOTE SERVICE DATE: 05/16/2024 SERVICE TIME: 4:07 PM LOS: 3 days Post-Acute Discharge Planning Patient Goal(s): General wellness [place] of Choice Explained: Yes post-Acute Discharge Plan: CM met with pt at bedside. Pt agreeable to visit. PT rec Home PT. Choices HC agencies provided to pt and referrals sent in [facility]. Will need F2F order. Several attempts to contact surg resident certified personal finance counselor for order. SIGNATURE: Vanita Claire RN PATIENT NAME: Ayo Rodriguez Withem DATE: May 16, 2024 TIME: 4:07 PM PAGER/CONTACT #: [phone] [facility] 05-16-2024 Note HNO ID: [id number] Author: VANITA CLAIRE RN Service: Care Management Author Type: Registered Nurse Type: Care Mgt Progress Note Filed: 05/16/2024 15:19 Note Text: CARE MANAGEMENT PROGRESS NOTE SERVICE DATE: 05/16/2024 SERVICE TIME: 3:17 PM LOS: 3 days Post-Acute Discharge Planning Patient Goal(s): General wellness [place] of Choice Explained: Yes Post-Acute Discharge Plan: PT rec Home PT. CM met with pt at bedside. Pt is agreeable to HC PT. Unable to reach surgery for HC order. Bedside RN stated she will try to reach surgical services asst for HC order. SIGNATURE: Vanita Claire RN PATIENT NAME: Ayo Rodriguez Withem DATE: May 16, 2024 TIME: 3:17 PM PAGER/CONTACT #: [phone] [facility] 05-16-2024 Note HNO ID: [id number] Author: AMADA PETTIT MD Service: Colorectal Author Type: Resident Type: Progress Notes Filed: 05/16/2024 09:13 Note Text: Attestation signed by Cierra Rizzo MD at 05/16/2024 9:38 AM I evaluated the patient and personally participated in the akins components. I agree with the resident's findings and plan with the following revisions and/or additions: Having bowel function but still distended. Will keep on clears today and likely GIS tomorrow. Ambulate/OOB Signature: Cierra Rizzo MD Service Date: 05/16/2024 Service Time: 9:38 AM COLORECTAL SURGERY PROGRESS NOTE Patient name: Ayo Alicia Date of : 1960 Admission date: 05/13/2024 ASSESSMENT AND PLAN: Ayo Alicia is a 64 year old male with PMHx of HTN, HLD, CAD on ASA 81, A FIB (on Eliquis), GERD, and Crohn's disease (diagnosed 2021) on Humira who underwent capsule endoscopy in 2021 with retained capsule at terminal ileum, with course notable for intermittent obstructive symptoms following this procedure. He presented 05/13/24 for elective resection of affected bowel and is now 3 Days Post-Op s/p laparoscopic assisted ileocolic resection with ileocolic anastomosis. He remains afebrile and hemodynamically stable with pain well controlled. Postoperative course notable for ileus with x1 episode of emesis on 05/15. Abdominal distension persistent today although symptoms improving. Will continue clear liquids and continue to monitor. - Follow up 05/13 OR pathology - Pain: Multimodal pain regimen - CV: VS monitoring; home carvedilol, atorvastatin - Pulm: Minimize use of supplemental oxygen, encourage IS - FEN: CLD, mIVFs, electrolyte repletion PRN - GI: PRN antiemetics, scheduled Entereg - Renal: Monitor UOP, trend BUN/Cr - Heme: No indication for transfusion, trend H/H - ID: No indication for antimicrobials - Endocrine: Accuchecks, SSI - MSK: PT/OT; Encourage ambulation, OOB - VTE Ppx: SCDs, Lovenox; hold home Eliquis - Disposition: RNF Plan of care discussed with staff. Amada Pettit MD General Surgery Resident, PGY-2 05/16/2024 9:02 AM Pager: [phone] SUBJECTIVE: - No acute events overnight - Afebrile, hemodynamically stable - Pain well controlled - Reports x1 episode of emesis yesterday morning, has since tolerated small volume clear liquids with intermittent but mild nausea - Denies recurrence of emesis, dry heaving, or belching - Passing minimal flatus with x2-3 small volume loose BMs OBJECTIVE: Physical Exam: BP 139/79 Pulse 70 Temp 36.6 ?C (97.9 ?F) (Oral) Resp 16 Ht 172.7 cm (5' 8 ) Wt 79.4 kg (175 lb) SpO2 97% BMI 26.61 kg/m? Body mass index is 26.61 kg/m?. General: Resting in bed. No acute distress. Heart: Regular rate and rhythm. Lungs: Unlabored respirations on room air. Symmetric chest rise. Abdomen: Soft, moderately distended. Mild juan daniel-incisional tenderness to palpation. No rebound, guarding, or rigidity. Midline and laparoscopic incisions well-approximated, clean, and dry. Extremities: Warm and well-perfused. No gross deformity. Intake and Output (past 24h): Intake/Output Summary (Last 24 hours) at 05/16/2024 0902 Last data filed at 05/16/2024 0844 Gross per 24 hour Intake 2925 ml Output 1600 ml Net 1325 ml LDAs: Lines, Drains, and Airways Line Duration Peripheral 05/13/24 0718 Left Hand 3 days Peripheral 05/13/24 0905 Right Hand 18 Gauge 2 days Recent Labs: Recent Labs 05/15/24 1855 05/15/24 0544 05/14/24 1152 05/14/24 0530 WBC 12.88* 11.29* 17.27* 12.13* HB 8.4* 7.1* 8.3* 7.7* HCT 27.6* 23.5* 26.3* 24.4* PLT 382 299 382 291 NA -- 139 -- 137 K -- 4.0 -- 4.2 CHLOR -- 106 -- 104 CO2 -- 25 -- 22 CREAT -- 0.87 -- 0.92 BUN -- 19 -- 17 GLUC -- 119* -- 153* MG -- 1.9 -- 1.4* CA -- 8.3* -- 8.3* [facility] 05-15-2024 Note HNO ID: [id number] Author: HARRISON RIVERA DO Service: Colorectal Author Type: Resident Type: Progress Notes Filed: 05/15/2024 08:59 Note Text: Attestation signed by Cierra Rizzo MD at 05/15/2024 9:45 AM I evaluated the patient and personally participated in the akins components. I agree with the resident's findings and plan with the following revisions and/or additions: Awaiting RBF, and distended on exam, advise pt to self regulate clears. OOB/ambulate . Hgb stable- no more labs Signature: Cierra Rizzo MD Service Date: 05/15/2024 SURGICAL SERVICES POSTOP PROGRESS NOTE SERVICE DATE: May 15, 2024 SERVICE TIME: 8:55 AM Surgery: Laparoscopic assisted ileocolic resection and anastomosis Assessment/Plan: Ayo Alicia is a 64 year old male with history of retained capsule endoscopy with intermittent obstructive symptoms and concern for now s/p Laparoscopic assisted ileocolic resection and anastomosis on 05/13/24. - Pain: Multimodal pain regimen, D/C HOOK AND EYE ATTACHER - CV: Repeat Hb today at noon. VS monitoring, telemetry - Pulm: Minimize use of supplemental oxygen, encourage IS - FEN: CLD 2/2 to persistent distension, mIVFs, electrolyte repletion PRN - GI: PRN antiemetics - Renal: Monitor UOP, trend BUN/Cr - Heme: No indication for transfusion, trend H/H - ID: No indication for antbx, no need for daily labs - MSK: Encourage ambulation, OOB - VTE Ppx: SCDs, SQH - Disposition: RNF, discharge pending diet advancement and decrease in bloating Plan of care discussed with staff. Harrison Rivera DO, PhD General Surgery Resident, PGY-6 Pager: [phone] Subjective INTERVAL HISTORY OF PRESENT ILLNESS: No acute events overnight, pain well controlled, abdomen appropriately tender Current Facility-Administered Medications Medication Dose Route Frequency NaCl 0.9% iv flush bag 20 mL INTRAVENOUS PRN lactated ringers iv infusion 75 mL/hr INTRAVENOUS CONTINUOUS alvimopan 12 mg cap(s) (ENTEREG) 12 mg ORAL BID ondansetron (PF) 4 mg injection (ZOFRAN) 4 mg INTRAVENOUS q 6 H PRN acetaminophen 1,000 mg tab(s) (TYLENOL) 1,000 mg ORAL q 6 H gabapentin 300 mg cap(s) (NEURONTIN) 300 mg ORAL q 8 H naloxone 0.1 mg injection (NARCAN) 0.1 mg INTRAVENOUS q 2 MIN PRN HYDROmorphone HOOK AND EYE ATTACHER 0.5 mg/mL in NaCl 0.9% 100 mL INTRAVENOUS CONTINUOUS lactobacillus rhamnosus 10 billion cell (CULTURELLE) capsule 1 capsule ORAL DAILY atorvastatin 80 mg tab(s) (LIPITOR) 80 mg ORAL AT BEDTIME enoxaparin 40 mg injection (LOVENOX) 40 mg SUBCUTANEOUS q 24 HR Objective BP 136/76 Pulse 72 Temp (Src) 99 (Oral) Resp 16 Ht 5' 8 (1.73m) Wt 175 lb (79.4kg) SpO2 98% BMI 26.61 kg/(m2). Physical Exam Performed GENERAL: Alert, no distress, cooperative LUNGS: on RA, lungs not auscultated CARDIAC: regular rate over last 24 hours ABDOMEN: abdomen soft and appropriately tender, non distended EXTREMITIES: Extremities normal, no deformities, edema, clubbing or skin discoloration. Good capillary refill. No ulcers WOUND: surgical incision covered with skin glue, well appearing DATA: Diagnostic tests reviewed for today's visit: WBC (k/uL) Date Value 05/15/2024 11.29 (H) RBC (m/uL) Date Value 05/15/2024 2.71 (L) Hemoglobin (g/dL) Date Value 05/15/2024 7.1 (L) Hematocrit (%) Date Value 05/15/2024 23.5 (L) MCV (fL) Date Value 05/15/2024 86.7 MCH (pg) Date Value 05/15/2024 26.2 MCHC (g/dL) Date Value 05/15/2024 30.2 (L) RDW-CV (%) Date Value 05/15/2024 15.9 (H) Platelet Count (k/uL) Date Value 05/15/2024 299 MPV (fL) Date Value 05/15/2024 9.7 Glucose (mg/dL) Date Value 05/15/2024 119 (H) BUN (mg/dL) Date Value 05/15/2024 19 Creatinine (mg/dL) Date Value 05/15/2024 0.87 Sodium (mmol/L) Date Value 05/15/2024 139 Potassium (mmol/L) Date Value 05/15/2024 4.0 Chloride (mmol/L) Date Value 05/15/2024 106 CO2 (mmol/L) Date Value 05/15/2024 25 Protein, Total (g/dL) Date Value 04/30/2024 5.8 (L) Albumin (g/dL) Date Value 04/30/2024 3.6 (L) Calcium, Total (mg/dL) Date Value 05/15/2024 8.3 (L) Alkaline Phosphatase (U/L) Date Value 04/30/2024 59 Bilirubin, Total (mg/dL) Date Value 04/30/2024 0.5 AST (U/L) Date Value 04/30/2024 16 ALT (U/L) Date Value 04/30/2024 8 (L) URINALYSIS Specific Volin, Ur Date Value Ref Range Status 02/12/2021 1.019 1.005 - 1.030 Final Glucose, Urine Date Value Ref Range Status 02/12/2021 Negative Negative mg/dL Final Bilirubin, Urine Date Value Ref Range Status 02/12/2021 Negative Negative Final Ketones, Urine Date Value Ref Range Status 02/12/2021 Negative Negative Final Hemoglobin/Blood,Ur Date Value Ref Range Status 02/12/2021 Negative Negative Final Protein, Urine Date Value R (more content not included)... [facility] 05-14-2024 Note HNO ID: [id number] Author: NASIM JENKINS LSW Service: Care Management Author Type: Industrial Services Worker Type: Care Mgt Initial Assessment Filed: 05/14/2024 12:40 Note Text: CARE MANAGEMENT: ASSESSMENT AND DISCHARGE PLAN SERVICE DATE: May 14, 2024 SERVICE TIME: 11:30 PCP: Perico Mccabe MD Primary Contact: Extended Emergency Contact Information Primary Emergency Contact: Nicol Morataya Mobile Relation: Significant other Admission Status: Inpatient Insurance Provider: [employer] MEDICARE ADVANTAGE PPO Discharge Planning requested by: Per Department Practice Potential Transition Plans No Services Indicated Advance Directives Current Advance Directive: Health Care Power of Aircraft Line Assembler In Chart: No Crown Blocker Attempted to Assist with AD Completion: Yes Action: Education Provided Current Living Arrangements and Support Lives with: Spouse/significant other Type of Residence: Private Residence (House) Does the patient have to climb stairs at home?: stairs within the home Support: Spouse/significant other, Children, Family members How do you manage to accomplish the following: Independent: Ambulation;Transportation to appointments/community;Bathe/Sh ower;Dress;Meals/Meal Prep;Going to the bathroom;Medication Management Current Services/Equipment Current Post-Acute Service(s): DME Current DME Type: Walker, Cane Discharge Planning Patient Goal(s): General wellness [place] of Choice Explained: [place] of Choice Given: No Reason Not Given: No placements necessary Are you interested in bedside delivery of your medications? Yes Discharge Planning Participant(s): Patient Patient/Family Comments: Caregiver Assessment: Caregiver is ready, willing and able to meet the patient's needs as recommended by the inter-professional team: No Caregiver needed Transport at Discharge: Transportation Arrangements: Car Needs Prior to Discharge: Needs Prior to Discharge: Ready for Discharge Post-Acute Discharge Plan: NA Patient is independent and lives with his girlfriend Nicol and one of her adult sons. 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 Per patient he is and has 2 children - a son and daughter. Per patient his son is his POA. No forms in the chart at this time. Patients dad about 3 years ago, his mom lives close by. No skilled needs. HCPOA [place] on file within [facility] and verified to be current as of date/time of this note: No Legal Next of Kin Hierarchy per [place] Revised Code: not in the chart - per patient his son has the forms Majority of Adult Children (consensus if possible) son and daughter Parents mom Majority of Adult Siblings (consensus if possible) sister Nearest Blood Relative FIDELINA Lara May 14, 2024 SIGNATURE: FIDELINA Lara PATIENT NAME: Ayo Alicia DATE: May 14, 2024 TIME: 12:32 PM CONTACT #: [phone] [facility] 05-14-2024 Note HNO ID: [id number] Author: HARRISON RIVERA DO Service: Colorectal Author Type: Resident Type: Progress Notes Filed: 05/14/2024 10:47 Note Text: SURGICAL SERVICES POSTOP PROGRESS NOTE SERVICE DATE: May 14, 2024 SERVICE TIME: 10:42 AM Surgery: Laparoscopic assisted ileocolic resection and anastomosis Assessment/Plan: Ayo Alicia is a 64 year old male with history of retained capsule endoscopy with intermittent obstructive symptoms and concern for now s/p Laparoscopic assisted ileocolic resection and anastomosis on 05/13/24. - Pain: Multimodal pain regimen - CV: Repeat Hb today at noon. VS monitoring, telemetry - Pulm: Minimize use of supplemental oxygen, encourage IS - FEN: CLD, mIVFs, electrolyte repletion PRN - GI: PRN antiemetics - Renal: D/C perez, Monitor UOP, trend BUN/Cr - Heme: No indication for transfusion, trend H/H - ID: IV Zosyn - MSK: Encourage ambulation, OOB - VTE Ppx: SCDs, SQH - Disposition: [facility] Plan of care discussed with staff. Harrison Rivera DO, PhD General Surgery Resident, PGY-6 Pager: [phone] Subjective INTERVAL HISTORY OF PRESENT ILLNESS: No acute events overnight, pain well controlled, abdomen appropriately tender Current Facility-Administered Medications Medication Dose Route Frequency NaCl 0.9% iv flush bag 20 mL INTRAVENOUS PRN lactated ringers iv infusion 75 mL/hr INTRAVENOUS CONTINUOUS alvimopan 12 mg cap(s) (ENTEREG) 12 mg ORAL BID ondansetron (PF) 4 mg injection (ZOFRAN) 4 mg INTRAVENOUS q 6 H PRN acetaminophen 1,000 mg tab(s) (TYLENOL) 1,000 mg ORAL q 6 H gabapentin 300 mg cap(s) (NEURONTIN) 300 mg ORAL q 8 H naloxone 0.1 mg injection (NARCAN) 0.1 mg INTRAVENOUS q 2 MIN PRN HYDROmorphone HOOK AND EYE ATTACHER 0.5 mg/mL in NaCl 0.9% 100 mL INTRAVENOUS CONTINUOUS lactobacillus rhamnosus 10 billion cell (CULTURELLE) capsule 1 capsule ORAL DAILY atorvastatin 80 mg tab(s) (LIPITOR) 80 mg ORAL AT BEDTIME magnesium sulfate iv piggyback in sterile water 2 g 50 mL 2 g INTRAVENOUS ONCE Objective BP 140/73 Pulse 83 Temp (Src) 98.1 (Oral) Resp 17 Ht 5' 8 (1.73m) Wt 175 lb (79.4kg) SpO2 100% BMI 26.61 kg/(m2). Physical Exam Performed GENERAL: Alert, no distress, cooperative LUNGS: on RA, lungs not auscultated CARDIAC: regular rate over last 24 hours ABDOMEN: abdomen soft and appropriately tender, non distended EXTREMITIES: Extremities normal, no deformities, edema, clubbing or skin discoloration. Good capillary refill. No ulcers WOUND: surgical incision covered with skin glue, well appearing DATA: Diagnostic tests reviewed for today's visit: WBC (k/uL) Date Value 05/14/2024 12.13 (H) RBC (m/uL) Date Value 05/14/2024 2.89 (L) Hemoglobin (g/dL) Date Value 05/14/2024 7.7 (L) Hematocrit (%) Date Value 05/14/2024 24.4 (L) MCV (fL) Date Value 05/14/2024 84.4 MCH (pg) Date Value 05/14/2024 26.6 MCHC (g/dL) Date Value 05/14/2024 31.6 RDW-CV (%) Date Value 05/14/2024 15.0 Platelet Count (k/uL) Date Value 05/14/2024 291 MPV (fL) Date Value 05/14/2024 9.5 Glucose (mg/dL) Date Value 05/14/2024 153 (H) BUN (mg/dL) Date Value 05/14/2024 17 Creatinine (mg/dL) Date Value 05/14/2024 0.92 Sodium (mmol/L) Date Value 05/14/2024 137 Potassium (mmol/L) Date Value 05/14/2024 4.2 Chloride (mmol/L) Date Value 05/14/2024 104 CO2 (mmol/L) Date Value 05/14/2024 22 Protein, Total (g/dL) Date Value 04/30/2024 5.8 (L) Albumin (g/dL) Date Value 04/30/2024 3.6 (L) Calcium, Total (mg/dL) Date Value 05/14/2024 8.3 (L) Alkaline Phosphatase (U/L) Date Value 04/30/2024 59 Bilirubin, Total (mg/dL) Date Value 04/30/2024 0.5 AST (U/L) Date Value 04/30/2024 16 ALT (U/L) Date Value 04/30/2024 8 (L) URINALYSIS Specific Volin, Ur Date Value Ref Range Status 02/12/2021 1.019 1.005 - 1.030 Final Glucose, Urine Date Value Ref Range Status 02/12/2021 Negative Negative mg/dL Final Bilirubin, Urine Date Value Ref Range Status 02/12/2021 Negative Negative Final Ketones, Urine Date Value Ref Range Status 02/12/2021 Negative Negative Final Hemoglobin/Blood,Ur Date Value Ref Range Status 02/12/2021 Negative Negative Final Protein, Urine Date Value Ref Range Status 02/12/2021 Negative Negative Final [facility] 05-13-2024 Note HNO ID: [id number] Author: ROHIT DEL CID APRN.BRIMMING MACHINE OPERATOR Service: Anesthesiology Author Type: Nurse Refrigeration Insulator Type: Anesthesia Procedure Notes Filed: 05/13/2024 09:27 Note Text: ANESTHESIOLOGY PROCEDURE NOTE PIV General Information Procedure Start Time/Medication Administration: 05/13/2024 9:05 AM Procedure End Time: 05/13/2024 9:06 AM Patient Location: OR Staffing BRIMMING MACHINE OPERATOR: Rohit Del Cid APRN.BRIMMING MACHINE OPERATOR Performed by: ESSENCE Preparation Sterility Preparation: hand hygiene performed prior to procedure Site Prep: Chloraprep Procedure Details Indication: need for IV access Needle Size/Type: 18 gauge angiocath Orientation: Right Location: Hand Imaging Guidance Used: No SIGNATURE: Rohit Del Cid APRN.CRNA PATIENT NAME: Ayo Rodriguez Withem DATE: May 13, 2024 TIME: 9:27 AM CSN: [id number] [facility] 05-13-2024 Note HNO ID: [id number] Author: ROHIT DEL CID APRN.CRNA Service: Anesthesiology Author Type: Nurse Refrigeration Insulator Type: Anesthesia Procedure Notes Filed: 05/13/2024 08:33 Note Text: ANESTHESIOLOGY PROCEDURE NOTE Airway General Information Procedure Start Time/Medication Administration: 05/13/2024 7:55 AM Procedure End Time: 05/13/2024 7:56 AM Patient location during procedure: OR Patient identity confirmed: arm band Staffing BRIMMING MACHINE OPERATOR: Rohit Del Cid APRN.BRIMMING MACHINE OPERATOR Performed by: ESSENCE Indications and Patient Condition Indications for airway management: anesthesia Preoxygenated: yes anesthesia circuit Method: sleep Difficult Mask: No Airway Accessory: oral airway (100mm) Final Airway Details Final airway type: endotracheal airway Final Endotracheal Airway: ETT Cuffed: yes Successful intubation technique: direct laryngoscopy Devices used: intubating stylet Endotracheal tube insertion site: oral Blade: Hector Blade size: #4 ETT size (mm): 7.5 Measurement (cm): 23 Placement verified by: capnometry Cormack-Lehane Classification: grade I - full view of glottis Number of attempts at approach: 1 Failed airway: no Unrecognized esophageal intubation: no Airway not difficult Comments Teeth and lips as per pre-op assessment SIGNATURE: Rohit Del Cid APRN.CRNA PATIENT NAME: Ayo Rodriguez Withem DATE: May 13, 2024 TIME: 8:32 AM CSN: [id number] [facility] 05-07-2024 Telephone encounter Note Spoke with patient via phone call. Aware of anticoag instructions. No questions/concerns voiced. Erna Montoya LPN [facility] 05-07-2024 Miscellaneous Notes Spoke with patient via phone call. Aware of anticoag instructions. No questions/concerns voiced. Erna Montoya LPN I just received fax from cardiology patient okay to stop Eliquis 3 days prior to procedure but he would like him to continue the ASA (PACC FOOD SAFETY AUDITOR please call and relay this message to patient). Just wanted to send an FYI. T&S completed. If there are any issues with him continuing the ASA or anything else needed from my end please let me know. Thanks, Dolly Nelson APRN.JOVANA I saw this patient for pre-anesthesia on 04/30. He has Chronic anemia his Hemoglobin came back at 7.7. I was able to look in care everywhere and his last Hemoglobin was 04/06/2024 and it came back at 8.3. He does not follow with hematology. He only follows with PCP. He said this has been an ongoing issue and he did have an iron infusion about a year ago. He is asymptomatic. At this time I do not think there would be enough time for an iron infusion. I will CC blood Management to get their input. Unsure what your parameters would be in order to proceed. A type and screen has been completed. Would you like to postpone and have him get a series of infusions first or do you feel it is okay to proceed? Thank you, Lidya documented in this encounter [facility] 05-07-2024 Telephone encounter Note I just received fax from cardiology patient okay to stop Eliquis 3 days prior to procedure but he would like him to continue the ASA ([facility] [employer]AF[employer] please call and relay this message to patient). Just wanted to send an FYI. T&S completed. If there are any issues with him continuing the ASA or anything else needed from my end please let me know. Thanks, Dolly Nelson APRN.JOVANA [facility] 05-04-2024 Telephone encounter Note I saw this patient for pre-anesthesia on 04/30. He has Chronic anemia his Hemoglobin came back at 7.7. I was able to look in care everywhere and his last Hemoglobin was 04/06/2024 and it came back at 8.3. He does not follow with hematology. He only follows with PCP. He said this has been an ongoing issue and he did have an iron infusion about a year ago. He is asymptomatic. At this time I do not think there would be enough time for an iron infusion. I will CC blood Management to get their input. Unsure what your parameters would be in order to proceed. A type and screen has been completed. Would you like to postpone and have him get a series of infusions first or do you feel it is okay to proceed? Thank you, Lidya T [facility] 04-30-2024 History and physical note HISTORY AND PHYSICAL EXAMINATION SERVICE DATE: 04/30/2024 SERVICE TIME: 1:44 PM PRIMARY CARE PHYSICIAN: Perico Mccabe MD REASON FOR VISIT: Ayo Alicia is a 64 year old male who is scheduled for LAPAROSCOPY ENTERECTOMY RESECTION SMALL INTESTINE, SINGLE RESECTION AND ANASTOMOSIS at the request of Dr. Cuba Haywood for consultation. My final recommendation will be communicated back to the requesting physician by way of shared medical record or letter. Assessment Patient has the following medical conditions which may affect juan daniel-operative course: Hyperlipidemia Assessment: On Statin Follows with PCP Atrial fibrillation (HCC) Assessment: Stable per last Cardiology OV note 01/04/2023 S/p Ablation 11/21/2022 On BB, ASA, and Eliquis- Will send letter for coag clearance Denies any palpitations or recurrence Follows with Dr. Pagan @ [facility] Atherosclerosis of coronary artery Assessment: Stable S/p Stenting in 2020 On ASA, DOAC, & Statin Negative stress test 06/17/2023 Follows with Cardiology at [facility] GERD (gastroesophageal reflux disease) Assessment: Controlled with PPI Essential hypertension Assessment: Stable on medication 145/75 in office today Follows with PCP Red[facility] Activity Status Index: METS: Do moderate work around the house, such as vacuuming, sweeping floors, or carrying in groceries (3.50 METs) Climb a flight of stairs or walk up a hill (5.50 METs) DASI Score: 9 Patient denies any chest pain or undue shortness of breath with the above physical activity. STOP-Bang Score: Has or is being treated for high blood pressure Patient over 50 years old Male patient Denies snoring loudly Denies feeling tired, fatigued, or sleepy during the daytime Has not been observed to stop breathing or choking/gasping during sleep BMI less than or equal to 35 kg/m^2 Does not have a large neck STOP-Bang Score: 3 [id number] Score: Age: 65-74 Sex: male CHF history: No Hypertension history: Yes Stroke/TIA/thromboembolism history: No Vascular disease history: Yes Diabetes history: No [id number] Score: 3 ARISCAT Score: Age: 51-80 Preoperative SpO2: >=96% Preoperative anemia: Yes Duration of surgery: 2-3 hrs Emergency procedure: No ARISCAT Score: ANESTHESIA FINDINGS: Intubation History: No history of difficult intubation Significant Anesthesia Considerations: none Airway History: No history of difficult airway I - PHYSICAL EVALUATION AIRWAY Patient intubated: No. Tracheostomy tube not present Mallampati: I. TM distance: >3 FB. Neck ROM: full ROM without neurological symptoms. Mouth opening: adequate. Short neck: no. Thick neck: no Lip Bite Test: II Microretrognathia/Micronagthia/ Recessed Chin: No DENTAL Dental findings: teeth intact and missing tooth/teeth. Additional comments: +Implants . II - ANESTHESIA PLAN Beta César Monitoring Plan Post Procedure Analgesic Plan Prepared for surgery: This patient is optimally prepared for surgery pending LABS and EKG and coag clearance. cheryle rec's? CONSULTS: Patient does not require consults for optimization at this time. The Following Tests/Procedures Have Been Initiated: Orders Placed This Encounter Type and Screen, 30 day Standing Status: Future Number of Occurrences: 1 Standing Expiration Date: 07/30/2024 Scheduling Instructions: A 30-day Type and Screen test has been ordered for you. This should be scheduled to be collected no earlier than 29 days before your scheduled procedure. If you receive blood products (red blood cells, platelets, plasma, cryoprecipitate) at any point before your procedure or are a female and become , please inform your provider. This test will be canceled, and a standard type and screen will need to be ordered to be collected within 3 days of your procedure. Order Specific Question: [facility] or Procedure: Answer: [facility] Order Specific Question: Status of surgery/procedure: Answer: Scheduled Order Specific Question: Date of surgery/procedure: Answer: 05/13/2024 Confirm Blood Type Standing Status: Future Number of Occurrences: 1 Standing Expiration Date: 07/30/2024 Order Specific Question: Did Blood Bank direct you to place this order: Answer: No - Presurgical Workflow acetaminophen (TYLENOL) 325 mg tablet Sig: Take 650 mg by mouth every 6 hours as needed. adalimumab (HUMIRA,CF, PEN [id number]) 80 mg/0.8 mL pen kit Sig: Inject 80 mg subcutaneously every 2 weeks. apixaban (ELIQUIS) 5 mg tab(s) Sig: Take 1 tablet by mouth two times a day. carvedilol (COREG) 25 mg tablet Sig: Take 25 mg by mouth two times a day with meals. lisinopril (ZESTRIL) 20 mg tablet Sig: Take 20 mg by mouth once daily. pantoprazole DR (PROTONIX) 40 mg tablet Sig: Take 40 mg by mouth once daily. ECG (IN OFFICE) , +Labs ordered per surgical team Planned Anesthetic: Per anesthesia choice Subjective CHIEF COMPLAINT: Crohn's Disease HPI: 64 year old year old presents to [facility] for evaluation. Patient has Crohn's disease with retained endoscopic camera. He reports intermittent abd pain especially when lifting items. Has elected for surgical intervention. PAST MEDICAL HISTORY No date: A-fib (HCC) No date: CAD (coronary artery disease) No date: Crohn's disease (HCC) No date: GERD (gastroesophageal reflux disease) No date: HLD (hyperlipidemia) No date: HTN (hypertension) PAST SURGICAL HISTORY No date: PAST SURGICAL HISTORY OF Comment: Neck and back sx No date: PAST SURGICAL HISTORY OF Comment: removal of cyst in wrist No date: TOTAL KNEE REPLACEMENT FAMILY HISTORY Problem Relation Age of Onset Anesthesia Problems No Family History SOCIAL HISTORY: Social History Tobacco Use Smoking status: Never Smokeless tobacco: Never Vaping Use Vaping status: Never Used Substance Use Topics Alcohol use: Not Currently Drug use: Not Currently Prior to Admission medications as of 04/30/24 1427 Medication Sig Last Dose Taking acetaminophen (TYLENOL) 325 mg tablet Take 650 mg by mouth every 6 hours as needed. Taking Yes adalimumab (HUMIRA,CF, PEN [id number]) 80 mg/0.8 mL pen kit Inject 80 mg subcutaneously every 2 weeks. Taking Yes apixaban (ELIQUIS) 5 mg tab(s) Take 1 tablet by mouth two times a day. Taking Yes carvedilol (COREG) 25 mg tablet Take 25 mg by mouth two times a day with meals. Taking Yes lisinopril (ZESTRIL) 20 mg tablet Take 20 mg by mouth once daily. Taking Yes pantoprazole DR (PROTONIX) 40 mg tablet Take 40 mg by mouth once daily. Taking Yes metroNIDAZOLE (FLAGYL) 500 mg tablet Take 1 tablet by mouth as directed. Take one tab at 6:00 p.m., another at 7:00 p.m. and the last one at 11:00 p.m., prior to surgery Taking Yes neomycin 500 mg tablet Take 2 tablets by mouth as directed. Take two tabs at 6:00 p.m., 7:00 p.m. and 11:00 p.m., prior to surgery Taking Yes aspirin 81 mg cap Take 81 mg by mouth once daily. Taking Yes atorvastatin (LIPITOR) 80 mg tablet atorvastatin 80 mg tablet TAKE 1 TABLET BY MOUTH DAILY Taking Yes sildenafil (VIAGRA) 100 mg tablet Taking Yes No medication comments found. ALLERGIES No Known Allergies Covid Immunization Dates Overdue - Covid-19 Vaccine () Overdue since 05/02/2023 08/27/2021 Imm Admin: COVID-19 vaccine, unspecified formulation 01/12/2021 Imm Admin: COVID-19 vaccine, unspecified formulation 12/21/2020 Imm Admin: COVID-19 vaccine, unspecified formulation REVIEW OF SYSTEMS: PAIN ASSESSMENT: General: No weight loss, malaise or fevers. Neuro: No history of TIA's, stroke, INSULATING MACHINE OPERATOR tumor, impaired sensorium, hemiplegia, paraplegia or quadraplegia. No neurological symptoms or problems. Respiratory: No history of current cough or dyspnea, or pneumonia in the past 6 weeks. No history of respiratory/pulmonary symptoms or problems. Cardiovascular: Negative for Recent AK, Angina, Chest Pain, PVD, DVT/PE +CAD s/p stent x1 2020 +AFIB s/p Ablation 2022 +HTN +HLD GI: +See HPI +GERD : Negative for dysuria, incontinence, hematuria, and hesitancy Endocrine: No history of diabetes. Has not taken steroids within the past 30 days. No history of endocrinological symptoms or problems. Hematology: Chronic anti-coagulation / platelet meds (Aspirin, DOAC) Oncology: No history of CA metastasis, chemo within 30 days, or radiotherapy within 90 days. Has not lost 10% of body wt in 6 months. No history of oncological symptoms or problems. Psych: No history of psychiatric symptoms or problems. Musculoskeletal: See HPI Skin: Negative for lesions, rash and itching. Objective PHYSICAL EXAM: VITALS: BP 145/75 Pulse 66 Temp 98.3 Ht 5' 8 (1.73m) Wt 175 lb 7.8 oz (79.6kg) SpO2 98% BMI 26.69 kg/(m^2). General: Alert and oriented Skin: Normal color, no rash, no lesions. HEENT: EOM, pupils equal, round and reactive. Cardiovascular: Normal S1 & S2, no rubs, murmurs or gallops. No JVD. Pulse regular. Lungs: Normal breath sounds, no wheezes or crackles. Abdomen: Soft, non-tender, no rigidity. Extremities: No deformity, no edema or tenderness, no joint swelling or clubbing. Neurological: Normal cognition and motor skills. Pulses: Carotid and radial pulses normal +2. Diagnostic tests reviewed for today's visit: Lab Value Units Date High Low HB No results within date range. HCT No results within date range. WBC No results within date range. PLT No results within date range. NA No results within date range. K No results within date range. GLUC No results within date range. BUN No results within date range. CREAT No results within date range. PTSEC No results within date range. INR No results within date range. APTT No results within date range. ALT No results within date range. AST No results within date range. TBILI No results within date range. TSH No results within date range. No results found for: HBA1C No results found for this or any previous visit (from the past 8760 hour(s)). NM exercise stress test 06/17/2023 Small fixed defect inferior wall, RCA distribution. No reversible ischemia - normal wall motion Normal exercise stress test. Echo 10/22/2022: Conclusion: 1. Mild concentric left ventricular hypertrophy, normal left ventricle systolic function, LVEF 55 to 60% 2. Normal right RV systolic function and size 3. Moderate biatrial dilatation 4. Mild to moderate mitral regurgitation 5. Mild tricuspid regurgitation. 6. Moderately elevated right-sided pressures RVSP 47 mmHg 7. No pericardial effusion No new labs or tests Instructions Given to Patient: Instructions located in the after visit summary. Patient given verbal and written preop instructions and voices comprehension and compliance. SIGNATURE: Dolly Nelson APRN.CNP PATIENT NAME: Ayo Alicia DATE: 04/30/2024 TIME: 2:08 PM [facility] 04-30-2024 History and physical note HISTORY AND PHYSICAL EXAMINATION SERVICE DATE: 04/30/2024 SERVICE TIME: 1:44 PM PRIMARY CARE PHYSICIAN: Perico Mccabe MD REASON FOR VISIT: Ayo Alicia is a 64 year old male who is scheduled for LAPAROSCOPY ENTERECTOMY RESECTION SMALL INTESTINE, SINGLE RESECTION AND ANASTOMOSIS at the request of Dr. Cuba Haywood for consultation. My final recommendation will be communicated back to the requesting physician by way of shared medical record or letter. Assessment Patient has the following medical conditions which may affect juan daniel-operative course: Hyperlipidemia Assessment: On Statin Follows with PCP Atrial fibrillation (HCC) Assessment: Stable per last Cardiology OV note 01/04/2023 S/p Ablation 11/21/2022 On BB, ASA, and Eliquis- Will send letter for coag clearance Denies any palpitations or recurrence Follows with Dr. Pagan @ [facility] Atherosclerosis of coronary artery Assessment: Stable S/p Stenting in 2020 On ASA, DOAC, & Statin Negative stress test 06/17/2023 Follows with Cardiology at [facility] GERD (gastroesophageal reflux disease) Assessment: Controlled with PPI Essential hypertension Assessment: Stable on medication 145/75 in office today Follows with PCP Reddy Activity Status Index: METS: Do moderate work around the house, such as vacuuming, sweeping floors, or carrying in groceries (3.50 METs) Climb a flight of stairs or walk up a hill (5.50 METs) DASI Score: 9 Patient denies any chest pain or undue shortness of breath with the above physical activity. STOP-Bang Score: Has or is being treated for high blood pressure Patient over 50 years old Male patient Denies snoring loudly Denies feeling tired, fatigued, or sleepy during the daytime Has not been observed to stop breathing or choking/gasping during sleep BMI less than or equal to 35 kg/m^2 Does not have a large neck STOP-Bang Score: 3 [id number] Score: Age: 65-74 Sex: male CHF history: No Hypertension history: Yes Stroke/TIA/thromboembolism history: No Vascular disease history: Yes Diabetes history: No [id number] Score: 3 ARISCAT Score: Age: 51-80 Preoperative SpO2: >=96% Preoperative anemia: Yes Duration of surgery: 2-3 hrs Emergency procedure: No ARISCAT Score: ANESTHESIA FINDINGS: Intubation History: No history of difficult intubation Significant Anesthesia Considerations: none Airway History: No history of difficult airway I - PHYSICAL EVALUATION AIRWAY Patient intubated: No. Tracheostomy tube not present Mallampati: I. TM distance: >3 FB. Neck ROM: full ROM without neurological symptoms. Mouth opening: adequate. Short neck: no. Thick neck: no Lip Bite Test: II Microretrognathia/Micronagthia/ Recessed Chin: No DENTAL Dental findings: teeth intact and missing tooth/teeth. Additional comments: +Implants . II - ANESTHESIA PLAN Beta César Monitoring Plan Post Procedure Analgesic Plan Prepared for surgery: This patient is optimally prepared for surgery pending LABS and EKG and coag clearance. cheryle rec's? CONSULTS: Patient does not require consults for optimization at this time. The Following Tests/Procedures Have Been Initiated: Orders Placed This Encounter Type and Screen, 30 day Standing Status: Future Number of Occurrences: 1 Standing Expiration Date: 07/30/2024 Scheduling Instructions: A 30-day Type and Screen test has been ordered for you. This should be scheduled to be collected no earlier than 29 days before your scheduled procedure. If you receive blood products (red blood cells, platelets, plasma, cryoprecipitate) at any point before your procedure or are a female and become , please inform your provider. This test will be canceled, and a standard type and screen will need to be ordered to be collected within 3 days of your procedure. Order Specific Question: [facility] or Procedure: Answer: [facility] Order Specific Question: Status of surgery/procedure: Answer: Scheduled Order Specific Question: Date of surgery/procedure: Answer: 05/13/2024 Confirm Blood Type Standing Status: Future Number of Occurrences: 1 Standing Expiration Date: 07/30/2024 Order Specific Question: Did Blood Bank direct you to place this order: Answer: No - Presurgical Workflow acetaminophen (TYLENOL) 325 mg tablet Sig: Take 650 mg by mouth every 6 hours as needed. adalimumab (HUMIRA,CF, PEN [id number]) 80 mg/0.8 mL pen kit Sig: Inject 80 mg subcutaneously every 2 weeks. apixaban (ELIQUIS) 5 mg tab(s) Sig: Take 1 tablet by mouth two times a day. carvedilol (COREG) 25 mg tablet Sig: Take 25 mg by mouth two times a day with meals. lisinopril (ZESTRIL) 20 mg tablet Sig: Take 20 mg by mouth once daily. pantoprazole DR (PROTONIX) 40 mg tablet Sig: Take 40 mg by mouth once daily. ECG (IN OFFICE) , +Labs ordered per surgical team Planned Anesthetic: Per anesthesia choice Subjective CHIEF COMPLAINT: Crohn's Disease HPI: 64 year old year old presents to [facility] for evaluation. Patient has Crohn's disease with retained endoscopic camera. He reports intermittent abd pain especially when lifting items. Has elected for surgical intervention. PAST MEDICAL HISTORY No date: A-fib (HCC) No date: CAD (coronary artery disease) No date: Crohn's disease (HCC) No date: GERD (gastroesophageal reflux disease) No date: HLD (hyperlipidemia) No date: HTN (hypertension) PAST SURGICAL HISTORY No date: PAST SURGICAL HISTORY OF Comment: Neck and back sx No date: PAST SURGICAL HISTORY OF Comment: removal of cyst in wrist No date: TOTAL KNEE REPLACEMENT FAMILY HISTORY Problem Relation Age of Onset Anesthesia Problems No Family History SOCIAL HISTORY: Social History Tobacco Use Smoking status: Never Smokeless tobacco: Never Vaping Use Vaping status: Never Used Substance Use Topics Alcohol use: Not Currently Drug use: Not Currently Prior to Admission medications as of 04/30/24 1427 Medication Sig Last Dose Taking acetaminophen (TYLENOL) 325 mg tablet Take 650 mg by mouth every 6 hours as needed. Taking Yes adalimumab (HUMIRA,CF, PEN [id number]) 80 mg/0.8 mL pen kit Inject 80 mg subcutaneously every 2 weeks. Taking Yes apixaban (ELIQUIS) 5 mg tab(s) Take 1 tablet by mouth two times a day. Taking Yes carvedilol (COREG) 25 mg tablet Take 25 mg by mouth two times a day with meals. Taking Yes lisinopril (ZESTRIL) 20 mg tablet Take 20 mg by mouth once daily. Taking Yes pantoprazole DR (PROTONIX) 40 mg tablet Take 40 mg by mouth once daily. Taking Yes metroNIDAZOLE (FLAGYL) 500 mg tablet Take 1 tablet by mouth as directed. Take one tab at 6:00 p.m., another at 7:00 p.m. and the last one at 11:00 p.m., prior to surgery Taking Yes neomycin 500 mg tablet Take 2 tablets by mouth as directed. Take two tabs at 6:00 p.m., 7:00 p.m. and 11:00 p.m., prior to surgery Taking Yes aspirin 81 mg cap Take 81 mg by mouth once daily. Taking Yes atorvastatin (LIPITOR) 80 mg tablet atorvastatin 80 mg tablet TAKE 1 TABLET BY MOUTH DAILY Taking Yes sildenafil (VIAGRA) 100 mg tablet Taking Yes No medication comments found. ALLERGIES No Known Allergies Covid Immunization Dates Overdue - Covid-19 Vaccine () Overdue since 05/02/2023 08/27/2021 Imm Admin: COVID-19 vaccine, unspecified formulation 01/12/2021 Imm Admin: COVID-19 vaccine, unspecified formulation 12/21/2020 Imm Admin: COVID-19 vaccine, unspecified formulation REVIEW OF SYSTEMS: PAIN ASSESSMENT: General: No weight loss, malaise or fevers. Neuro: No history of TIA's, stroke, INSULATING MACHINE OPERATOR tumor, impaired sensorium, hemiplegia, paraplegia or quadraplegia. No neurological symptoms or problems. Respiratory: No history of current cough or dyspnea, or pneumonia in the past 6 weeks. No history of respiratory/pulmonary symptoms or problems. Cardiovascular: Negative for Recent AK, Angina, Chest Pain, PVD, DVT/PE +CAD s/p stent x1 2020 +AFIB s/p Ablation 2022 +HTN +HLD GI: +See HPI +GERD : Negative for dysuria, incontinence, hematuria, and hesitancy Endocrine: No history of diabetes. Has not taken steroids within the past 30 days. No history of endocrinological symptoms or problems. Hematology: Chronic anti-coagulation / platelet meds (Aspirin, DOAC) Oncology: No history of CA metastasis, chemo within 30 days, or radiotherapy within 90 days. Has not lost 10% of body wt in 6 months. No history of oncological symptoms or problems. Psych: No history of psychiatric symptoms or problems. Musculoskeletal: See HPI Skin: Negative for lesions, rash and itching. Objective PHYSICAL EXAM: VITALS: BP 145/75 Pulse 66 Temp 98.3 Ht 5' 8 (1.73m) Wt 175 lb 7.8 oz (79.6kg) SpO2 98% BMI 26.69 kg/(m^2). General: Alert and oriented Skin: Normal color, no rash, no lesions. HEENT: EOM, pupils equal, round and reactive. Cardiovascular: Normal S1 & S2, no rubs, murmurs or gallops. No JVD. Pulse regular. Lungs: Normal breath sounds, no wheezes or crackles. Abdomen: Soft, non-tender, no rigidity. Extremities: No deformity, no edema or tenderness, no joint swelling or clubbing. Neurological: Normal cognition and motor skills. Pulses: Carotid and radial pulses normal +2. Diagnostic tests reviewed for today's visit: Lab Value Units Date High Low HB No results within date range. HCT No results within date range. WBC No results within date range. PLT No results within date range. NA No results within date range. K No results within date range. GLUC No results within date range. BUN No results within date range. CREAT No results within date range. PTSEC No results within date range. INR No results within date range. APTT No results within date range. ALT No results within date range. AST No results within date range. TBILI No results within date range. TSH No results within date range. No results found for: HBA1C No results found for this or any previous visit (from the past 8760 hour(s)). NM exercise stress test 06/17/2023 Small fixed defect inferior wall, RCA distribution. No reversible ischemia - normal wall motion Normal exercise stress test. Echo 10/22/2022: Conclusion: 1. Mild concentric left ventricular hypertrophy, normal left ventricle systolic function, LVEF 55 to 60% 2. Normal right RV systolic function and size 3. Moderate biatrial dilatation 4. Mild to moderate mitral regurgitation 5. Mild tricuspid regurgitation. 6. Moderately elevated right-sided pressures RVSP 47 mmHg 7. No pericardial effusion No new labs or tests Instructions Given to Patient: Instructions located in the after visit summary. Patient given verbal and written preop instructions and voices comprehension and compliance. SIGNATURE: Dolly Nelson APRN.CNP PATIENT NAME: Ayo Rodriguez Withem DATE: 04/30/2024 TIME: 2:08 PM documented in this encounter [facility] 04-30-2024 Instructions Dolly Nelson APRN.CNP - 04/30/2024 8:09 AM EDT PATIENT PREOPERATIVE INSTRUCTIONS Your Surgeon has scheduled you for your procedure at this surgery center: [facility]: [phone] --[id number] [address]. Please check in on the 1st floor at registration desk 6. Please read below carefully for your personalized instructions. Dietary Restrictions: - Follow surgeons instructions Medications: Unless instructed differently below, stay on all of your medications until your surgery. Approved medications to take the morning of surgery with a sip of water: Pantoprazole & Carvedilol DO NOT TAKE YOUR LISINOPRIL THE NIGHT BEFORE OR MORNING OF SURGERY. If you take any medications for erectile dysfunction-Cialis (Tadalafil), Levitra, Staxyn (Vardenafil) Viagra (Sildenenafil please do not take these for 48 hours before surgery. If you start any new medications after today's visit, please contact the surgeon's office. Blood Thinning Medications: - Stop NSAIDS (Ibuprofen, Advil, Aleve, Motrin, Celebrex, Mobic, etc.) 7 days before surgery, as directed by your surgeon. - Stop Aspirin 7 days before surgery, as directed by your surgeon. -Stop Eliquis 3 days prior to procedure - Stop Vitamin E, ALL multi-vitamins, herbals and dietary supplements 7 days before surgery. - You may take Tylenol (Acetaminophen) or any of your pain medications that do not contain aspirin or NSAIDS as needed. Important Reminders: - If you are prescribed inhalers for breathing, continue using them. - Candy, mints, and tobacco products are NOT permitted the morning of surgery. - Hearing aids, dentures and glasses may be worn the morning of surgery. - NO jewelry, body piercings, makeup, hairpins or contacts are to be worn the day of surgery. If you develop symptoms such as a fever, cold, or flu, or have other changes to your health within TWO DAYS of scheduled surgery or the morning of surgery, please contact the surgery center above. Personal Belongings: -Please have photo ID and insurance cards. -If you do not have a copy of advance directives on file with us, please bring a copy with you on the day of surgery. - Leave ALL valuables and money at home or with family members. For Outpatient Procedures: - YOU MUST HAVE A RESPONSIBLE BANANA ROOM CUTTER TAKE YOU HOME. A SKEINER OR PERSONNEL QUALITY ASSURANCE AUDITOR CANNOT BE MADE A RESPONSIBLE BANANA ROOM CUTTER. - We recommend that a responsible person stays with you overnight to take care of you. - You cannot stay in a hotel alone after outpatient surgery. You will not be permitted to have your surgery, if you do not have someone to take care of you. Arrival Time for Surgery: - The Surgery Center or hospital where you are having surgery will call the afternoon before surgery (or Friday for Friday surgery) with a scheduled arrival time. - If you have not heard by 4 pm, please contact the surgery center above. Please be aware that emergency situations arise, which may delay or change your surgical time. If this happens, we will notify you as soon as possible and regret any inconvenience. If you already have an Advance Directive, please fax a copy to [phone] or email to for it to be added to your chart. If you do not have an Advance Directive, you can find the appropriate form and more information at [email or web address]. We recommend that you complete the Advance Directive form found on the website and bring it with you the day of your surgery. It can be witnessed and scanned into your chart that day. Dolly Nelson APRN.CNP documented in this encounter [facility] 04-28-2024 History of Presen t illness Narrative COLORECTAL SURGERY April 28, 2024 Ayo Alicia 64 year old This consult was requested by Dr. Arias and my final recommendations will be communicated to the requesting health care provider by way of the shared medical record for internal providers or letter via the [employer] for external providers. Chief Complaint: retained capsule History of Present Illness: Ayo Alicia is a 64 year old male presents today for evaluation of retained endoscopic camera. Crohn's disease - dx [address] enterography 04/16/24 Scan on 04/22/2024 8:26 AM by Lisa Arreaga: [facility] CT ABD & PEL [phone] - Tiny hiatal hernia - Cholelithiasis - Left renal cysts - No bowel or urinary tract obstruction - Wall thickening at hte distal ileum that could be activation of patients Crohn's disease, there is also some stranding and lymph nodes in the adjacent mesentery att the right upper quadrant - Diverticulosis - Segments of under distended left colon with apparent wall thickening - Suspected endoscopic camera within small bowel at the right upper quadrant 64-year-old male with history of Crohn's disease on Humira. CT enterography as above. He had a capsule endoscopy test done over a year ago and there is a retained capsule No past medical history on file. No past surgical history on file. Current Outpatient Medications Medication Sig Dispense Refill aspirin 325 mg tablet Take by mouth. atorvastatin (LIPITOR) 80 mg tablet atorvastatin 80 mg tablet TAKE 1 TABLET BY MOUTH DAILY buPROPion XL (WELLBUTRIN XL) 150 mg 24 hr tablet q 24 HR. carvedilol (COREG) 12.5 mg tablet carvedilol 12.5 mg tablet TAKE 1 TABLET BY MOUTH TWICE DAILY clopidogrel (PLAVIX) 75 mg tablet clopidogrel 75 mg tablet TAKE 1 TABLET BY MOUTH DAILY lisinopril-hydroCHLOROthiazide (PRINZIDE,ZESTORETIC) 20-12.5 mg per tablet q 24 HR. meloxicam (MOBIC) 15 mg tablet q 24 HR. omeprazole (PRILOSEC) 40 mg capsule q 24 HR. sildenafil (VIAGRA) 100 mg tablet No current facility-administered medications for this visit. ALLERGIES No Known Allergies No family history on file. Social History Tobacco Use Smoking status: Never Smokeless tobacco: Never Physical Exam: BP 131/63 (BP Site: Right Arm, BP Position: Sitting) Pulse 61 Temp 36.4 C (97.5 F) Ht 172.7 cm (5' 8 ) Wt 77.1 kg (170 lb) SpO2 99% BMI 25.85 kg/m General Appearance: Well appearing, alert, in no acute distress, well-hydrated, well nourished. Abdomen: Soft, nontender Assessment Assessment and Plan: Ayo Alicia is a 64 year old male with Crohn's disease and retained capsule endoscopy pill. Likely has a stricture contributing to this. Will plan for laparoscopic small bowel resection of this area. Consent obtained Medical Decision Making: Data Reviewed: Tests & Documents Reviewed/ordered: Review of prior notes from Dr. Arias Review of Pathology Review of Imaging: CT Abdomen, CT Pelvis Review of Labs: CBC, BMP I have independently interpreted: CT Abdomen, CT Pelvis I have discussed Ayo Alicia's treatment plan and/or results with Dr. Arias. Risk of morbidity, mortality and/or complications of treatment plan: high Cuba Haywood MD Colorectal Surgery documented in this encounter [facility] 04-28-2024 Note HNO ID: [id number] Author: CUBA HAYWOOD MD Service: ? Author Type: Physician Type: Progress Notes Filed: 04/29/2024 21:55 Note Text: COLORECTAL SURGERY April 28, 2024 Ayo Alicia 64 year old This consult was requested by Dr. Arias and my final recommendations will be communicated to the requesting health care provider by way of the shared medical record for internal providers or letter via the [employer] for external providers. Chief Complaint: retained capsule History of Present Illness: Ayo Alicia is a 64 year old male presents today for evaluation of retained endoscopic camera. Crohn's disease - dx [address] enterography 04/16/24 Scan on 04/22/2024 8:26 AM by Lisa Arreaga: [facility] CT ABD AND PEL [phone] - Tiny hiatal hernia - Cholelithiasis - Left renal cysts - No bowel or urinary tract obstruction - Wall thickening at hte distal ileum that could be activation of patients Crohn's disease, there is also some stranding and lymph nodes in the adjacent mesentery att the right upper quadrant - Diverticulosis - Segments of under distended left colon with apparent wall thickening - Suspected endoscopic camera within small bowel at the right upper quadrant 64-year-old male [facility]. He had a capsule endoscopy test done over a year ago and there is a retained capsule No past medical history on file. No past surgical history on file. Current Outpatient Medications Medication Sig Dispense Refill aspirin 325 mg tablet Take by mouth. atorvastatin (LIPITOR) 80 mg tablet atorvastatin 80 mg tablet TAKE 1 TABLET BY MOUTH DAILY buPROPion XL (WELLBUTRIN XL) 150 mg 24 hr tablet q 24 HR. carvedilol (COREG) 12.5 mg tablet carvedilol 12.5 mg tablet TAKE 1 TABLET BY MOUTH TWICE DAILY clopidogrel (PLAVIX) 75 mg tablet clopidogrel 75 mg tablet TAKE 1 TABLET BY MOUTH DAILY lisinopril-hydroCHLOROthiazide (PRINZIDE,ZESTORETIC) 20-12.5 mg per tablet q 24 HR. meloxicam (MOBIC) 15 mg tablet q 24 HR. omeprazole (PRILOSEC) 40 mg capsule q 24 HR. sildenafil (VIAGRA) 100 mg tablet No current facility-administered medications for this visit. ALLERGIES No Known Allergies No family history on file. Social History Tobacco Use Smoking status: Never Smokeless tobacco: Never Physical Exam: BP 131/63 (BP Site: Right Arm, BP Position: Sitting) Pulse 61 Temp 36.4 ?C (97.5 ?F) Ht 172.7 cm (5' 8 ) Wt 77.1 kg (170 lb) SpO2 99% BMI 25.85 kg/m? General Appearance: Well appearing, alert, in no acute distress, well-hydrated, well nourished. Abdomen: Soft, nontender Assessment Assessment and Plan: Ayo Alicia is a 64 year old male with Crohn's disease and retained capsule endoscopy pill. Likely has a stricture contributing to this. Will plan for laparoscopic small bowel resection of this area. Consent obtained Medical Decision Making: Data Reviewed: Tests AND Documents Reviewed/ordered: Review of prior notes from Dr. Arias Review of Pathology Review of Imaging: CT Abdomen, CT Pelvis Review of Labs: CBC, BMP I have independently interpreted: CT Abdomen, CT Pelvis I have discussed Ayo Alicia's treatment plan and/or results with Dr. Arias. Risk of morbidity, mortality and/or complications of treatment plan: high Cuba Haywood MD Colorectal Surgery [facility] 09-11-2023 Evaluation note Encounter Date Diagnosis [...] some recent labs done at [facility] will obtain these reports Patient is to start Amjevita RTO 6 weeks [facility] Other 12-27-2023 Instructions* Patient Instructions* Supriya Morel [...] you have a Living Will/Durable Power of Aircraft Line Assembler for Health Care that is not on file here, please bring a copy the day of surgery. 3. Please wash your face with baby shampoo prior to procedure as instructed by your physician. 4. NO powder, lotion, perfume/cologne, aftershave, make-up, nail [place] on at least one finger, deodorant, or [...] please call the [facility] office at [phone], Mon.-Fri. 7 a.m.-3 p.m. Leave a voicemail [...] days prior to procedure documented in this encounterOhio[facility] HospitalSnapfinger, Inc. [facility] [id number] Miscellaneous Notes* Perioperative Nursing Note - Supriya [...] you have a Living Will/Durable Power of Aircraft Line Assembler for Health Care that is not on file here, please bring a copy the day of surgery. 3. Please wash your face with baby shampoo prior to procedure as instructed by your physician. 4. NO powder, lotion, perfume/cologne, aftershave, make-up, nail [place] on at least one finger, deodorant, or [...] please call the [facility] office at [phone], Mon.-Fri. 7 a.m.-3 p.m. Leave a voicemail [...] reviewed. Patient verbalized understanding. [facility] Nurse [facility]* Perioperative Nursing Note - [...] you have a Living Will/Durable Power of Aircraft Line Assembler for Health Care that is not on file here, please bring a copy the day of surgery. 3. Please wash your face with baby shampoo prior to procedure as instructed by your physician. 4. NO powder, lotion, perfume/cologne, aftershave, make-up, nail [place] on at least one finger, deodorant, or [...] please call the [facility] office at [phone], Mon.-Fri. 7 a.m.-3 p.m. Leave a voicemail [...] Stop taking 0 days prior to procedure [facility] [employer]12-27-2023 Nurse Note* Perioperative Nursing Note - Supriya Morel RN - 08/27/2023 12:45 PM EST Surgical instructions reviewed. Patient verbalized understanding. [facility] [employer]09-18-2023 Evaluation note* Encounter Date Diagnosis Assessment Notes Treatment Notes Treatment Clinical Notes May, Crohns disease (ICD-10 - K50.90) [facility] Other 08-24-2023 Evaluation note* Encounter Date Diagnosis Assessment Notes Treatment Notes Treatment Clinical Notes Apr, Iron deficiency anemia (ICD-10 - D50.9) [facility] Other 08-23-2023 Evaluation note* Encounter Date Diagnosis Assessment Notes Treatment Notes Treatment Clinical Notes Apr, Crohns disease (ICD-10 - K50.90) Pt is taking budesonide. Pt advised to start humira and stop budesonide. Labs ordered Pt RTO in 6 wks [facility] Other 11-23-2022 Evaluation note* Encounter Date Diagnosis Assessment Notes Treatment Notes Treatment Clinical Notes Jul, Iron deficiency anemia (ICD-10 - D50.9) [facility] Other 11-08-2022 Evaluation note* Encounter Date Diagnosis Assessment Notes Treatment Notes Treatment Clinical Notes Jul, Iron deficiency anemia (ICD-10 - D50.9) Jul, Crohns disease (ICD-10 - K50.90) CONTINUE SULFASALAZINE 2 TABLETS TWICE A DAY RTO 4 WEEKS Jul, Abdominal pain (ICD-10 - R10.9) Jul, Diarrhea (ICD-10 - R19.7) [facility] Other 09-07-2022 NoteOPERATIVE NOTE OPERATION DATE: 05/08/2022 [...] room in good condition. CC: Perico Mccabe M.D.[facility] note No data available for this section [facility] General Surgery [place] Evaluation noteNo assessment information available [facility] [employer] Work Phone: Evaluation noteNo InformationNort People to Remember Other Evaluation note* Diagnosis Onset Date Resolution Status Abdominal pain acute Crohn's disease acute Weight loss, non-intentional acute [facility] Work Phone: Evaluation note* Diagnosis Crohn's disease of both small and large intestine without complication (HCC)- Primary Regional enteritis of small intestine with large intestine Crohn's disease of both small and large intestine without complication (HCC) Regional enteritis of small intestine with large intestine documented in this encounter [facility] note* Diagnosis Pre-op evaluation- Primary Preoperative examination, unspecified Hyperlipidemia, unspecified hyperlipidemia type Atrial fibrillation, unspecified type (HCC) Atherosclerosis of [place] coronary artery of [place] heart, unspecified whether angina present Gastroesophageal reflux disease, unspecified whether esophagitis present Essential hypertension Unspecified essential hypertension Crohn's disease of both small and large intestine without complication (HCC) Regional enteritis of small intestine with large intestine * Assessment & Plan Note - Dolly Nelson APRN.CNP - 04/30/2024 2:54 PM EDT Associated Problem(s): Essential hypertension Assessment: Stable on medication 145/75 in office today Follows with PCP * Assessment & Plan Note - Dolly Nelson APRN.CNP - 04/30/2024 2:52 PM EDT Associated Problem(s): GERD (gastroesophageal reflux disease) Assessment: Controlled with PPI * Assessment & Plan Note - Dolly Nelson APRN.CNP - 04/30/2024 2:03 PM EDT Associated Problem(s): Atherosclerosis of coronary artery Assessment: Stable S/p Stenting in 2020 On ASA, DOAC, & Statin Negative stress test 06/17/2023 Follow[facility] * Assessment & Plan Note - Dolly Nelson APRN.CNP - 04/30/2024 2:01 PM EDT Associated Problem(s): Atrial fibrillation (HCC) Assessment: Stable per last Cardiology [facility] note 01/04/2023 S/p Ablation 11/21/2022 On BB, ASA, and Eliquis- Will send letter for coag clearance Denies any palpitations or recurrence Follows with Dr[facility] Pagan @ [facility] * Assessment & Plan Note - Dolly Nelson APRN.CNP - 04/30/2024 1:47 PM EDT Associated Problem(s): Hyperlipidemia Assessment: On Statin Follows with PCP documented in this encounter [facility] note* Diagnosis Pre-op evaluation- Primary Preoperative examination, unspecified Hyperlipidemia, unspecified hyperlipidemia type Atrial fibrillation, unspecified type (HCC) Atherosclerosis of [place] coronary artery of [place] heart, unspecified whether angina present Gastroesophageal reflux disease, unspecified whether esophagitis present Essential hypertension Unspecified essential hypertension Anemia, unspecified type Follow-up examination after colorectal surgery- Primary Follow-up examination, following other surgery documented in this encounter [facility] note* Diagnosis Pre-op evaluation- Primary Preoperative examination, unspecified Hyperlipidemia, unspecified hyperlipidemia type Atrial fibrillation, unspecified type (HCC) Atherosclerosis of [place] coronary artery of [place] heart, unspecified whether angina present Gastroesophageal reflux disease, unspecified whether esophagitis present Essential hypertension Unspecified essential hypertension Anemia, unspecified type Follow-up examination after colorectal surgery- Primary Follow-up examination, following other surgery documented in this encounter [facility] note* Diagnosis Preop examination- Primary Unspecified pre-operative examination Coronary artery disease, unspecified vessel or lesion type, unspecified whether angina present, unspecified whether [place] or transplanted heart [facility] N[facility]ative - Reported* Type Description Date Surgical History knee replacement-right Surgical History knee arthroscopy-left Surgical History back surgery Surgical History Neck Surgery Surgical History ganglion cyst-left Surgical History heart stent [facility] Other History general Narrative - Reported* Type Description Date Medical History Afib Surgical History knee replacement-right Surgical History knee arthroscopy-left Surgical History back surgery Surgical History Neck Surgery Surgical History ganglion cyst-left Surgical History heart stent Surgical History cardiac ablasion [facility] Other Hospital Discharge instructions No data available for this section [facility] General Surgery [place] Progress note No data available for this section [facility] General Surgery [place] Reason for referral (narrative)* Outpatient Procedure (Routine) - New Request Specialty Diagnoses / Procedures Referred By Contac t Referred [facility] Diagnoses Pre-op evaluation Procedures ECG COMPLETE ECG ROUTINE ECG W/LEAST 12 LDS W/I&R Dolly Nelson APRN.CNP [address] [place] [address] [facility] [place] [address] [place] [address] Referral ID Status Reason Start Date Expiration Date Visits Requested Visits Authorized [id number] New Request Auto-Generat ed Referral 04/30/2024 04/30/2025 1 1 [facility] Summary Purpose Family History No Family History [...] Nausea, Abdominal Pain, Ep Chief Complaint K50.90 Chief Complaint 3 month follow up K50.90 Reason for Visit Abdominal pain Crohn's disease Weight loss, non-intentional Chief Complaint Admit Date 6 month follow up December 06, 2024 12:4 8pm Additional Source Comments (unrecognized sect ion and content) No Status Records FoundNo Status Records FoundNo Status Records FoundNo Status Records FoundNo Status Records FoundNo Status Records FoundNo Status Records FoundNo Status Records FoundNo Status Records Found INFORMATION SOURCE (unrecogn ized section and content) DATE CREATED AUTHOR 07/22/2020 [facility] DATE CREATED AUTHOR AUTHOR'S ORGANIZ ATION 12/15/2021 [facility] DATE CREATED AUTHOR AUTHOR'S ORGANIZ ATION 08/05/2022 [facility] DATE CREATED AUTHOR AUTHOR'S ORGANIZ ATION 11/06/2022 [facility] DATE CREATED AUTHOR AUTHOR'S ORGANIZ ATION 10/05/2023 [facility] DATE CREATED AUTHOR AUTHOR'S ORGANIZ ATION 04/17/2024 [facility] DATE CREATED AUTHOR AUTHOR'S ORGANIZ ATION 06/11/2024 [facility] DATE CREATED AUTHOR AUTHOR'S ORGANIZ ATION 08/23/2024 [facility] DATE CREATED AUTHOR AUTHOR'S ORGANIZ ATION 01/07/2025 [facility] Care Team (unrecognized sect ion and content) Team Status: Active Member Role Status Dates Perico Mccabe MD Primary Care Provider Active Team Status: Inactive Member Role Status Dates Perico Mccabe MD Primary Care Provider Active Enoch Carnes MD Attending Provider Active Team Status: Inactive Member Role Status Dates Perico Mccabe MD Primary Care Provider Active Start: April 05, 2024 End: April 05, 2024 Nelly Arias DO Attending Provider Active St art: April 05, 2024 End: April 05, 2024 Team Status: Inactive Member Role Status Dates Perico Mccabe MD Primary Care Provider Active Start: April 16, 2024 End: April 16, 2024 Nelly Arias DO Attending Provider Active St art: April 16, 2024 End: April 16, 2024 Data Entry Specialist Relationship Specialty Start Date End Date Perico Mccabe MD PCP - General Family Medicine 02/14/14 Data Entry Specialist Relationship Specialty Start Date End Date Perico Mccabe MD PCP - General Family Medicine 02/14/14 Data Entry Specialist Relationship Specialty Start Date End Date Perico Mccabe MD PCP - General Family Medicine 02/14/14 Data Entry Specialist Relationship Specialty Start Date End Date Perico Mccabe MD PCP - General Family Medicine 02/14/14 Data Entry Specialist Relationship Specialty Start Date End Date Perico Mccabe MD PCP - General Family Medicine 02/14/14 Data Entry Specialist Relationship Specialty Start Date End Date Perico Mccabe MD [address] [place] [address] PCP - General Family Medicine 08/27/23 Team Status: Inactive Member Role Status Dates Perico Mccabe MD Primary Care Provider Active Start: December 06, 2024 End: December 06, 2024 Nelly Arias DO Attending Provider Active St art: December 06, 2024 End: December 06, 2024 REASON FOR VISIT (unrecogniz ed section and content) Reason Comments New Patient retained capsule Reason Comments Anesthesia Consult Reason Comments Anesthesia Consult Reason Comments Post Op Follow Up Reason Comments Post Op Goals (unrecognized section and content) Goals may be documented in a n alternate section Source Comments (unrecognize d section and content) In the event this informatio n is protected by the Federal Confidentiality of Alcohol and Drug Abuse Patient Records regulations: The Federal rules restrict any use of the information to criminally investigate or prosecute any alcohol or drug abuse patient.[facility] the event this information is protected by the Federal Confidentiality of Alcohol and Drug Abuse Patient Records regulations: The Federal rules restrict any use of the information to criminally investigate or prosecute any alcohol or drug abuse patient.[facility] the event this information is protected by the Federal Confidentiality of Alcohol and Drug Abuse Patient Records regulations: The Federal rules restrict any use of the information to criminally investigate or prosecute any alcohol or drug abuse patient.[facility] the event this information is protected by the Federal Confidentiality of Alcohol and Drug Abuse Patient Records regulations: The Federal rules restrict any use of the information to criminally investigate or prosecute any alcohol or drug abuse patient.[facility] the event this information is protected by the Federal Confidentiality of Alcohol and Drug Abuse Patient Records regulations: The Federal rules restrict any use of the information to criminally investigate or prosecute any alcohol or drug abuse patient.[facility] FOR RECORDS PERTAINING TO PATIENTS WHO ARE [...] BE BASED ON THE PRIMARY CLINICAL RECORDS. [facility] [employer] [facility]. provides no warranty or guarantee of the accuracy or completeness of information in this document.
--- NOTE | 2025-01-11 10:07 | PC.NURSE ---
Nursing Note Cardiac Stress Test Reviewed: Medication, allergies and patient history reviewed. Stress Test: [ x] Patient tolerated stress test well. [ ] Patient unable to tolerate walking on treadmill. Switched to Lexiscan stress test. [ x] No chest pain noted per patient [ ] Chest pain that resolved prior to leaving stress lab. [ ] No dyspnea noted. [ x] Dyspnea that resolved prior to leaving stress lab. [x ] Patient left stress lab asymptomatic and hemodynamically stable. [ ] Patient taken to the Emergency Room due to non-resolving symptoms following stress test. [ x] Patient achieved target heart rate. [ ] Patient unable to achieve target heart rate. [ ] Aminophylline administered as reversal agent to Lexiscan (Regadenoson). [ ] Nitro administered. Nursing Comments:Pt had cardiolite test done and tolerated well. No CP only SOB that he states is normal h\for him with activity. Pt ambulated to cafeteria for breakfast prior to second set of images.
== END 2025-01-11 07:30 | disposition home or self-care (01) ==
LOC: NM 07:29
PROVIDERS: PCP Family Medicine; Visit Provider Internal Medicine Interventional Cardiology
DX: R06.09 Other forms of dyspnea (principal)
CPT/HCPCS: 78452; 93017; A9500

== ENCOUNTER 2025-04-30 08:15 | Outpatient (OUT) | payer MEDICARE, SELFPAY ==
--- OUTSIDE RECORDS SUMMARY | 2025-04-30 08:19 | XMS_ITS | CCD ---
Author Organization [facility] Care Team Providers Care Strap Stitcher Name Role Phone UNKNOWN, PHYSICIAN Primary Care Unavailable UNKNOWN, PHYSICIAN Referring Unavailable ELTAHAWY, EHAB A Admitting Unavailable YOSEF, EHAB A Attending Unavailable Perico Mccabe Primary Care Physician MD Perico Mccabe Primary Care Provider MD Enoch Carnes Attending Provider [phone] Enoch Carnes Unavailable Javid WILLIS Attending Unavailable Andrey PROVIDERPerico Referring Unavailabl e Javid WILLIS Attending Unavailable FAIZAY ., DR RIVER [...] Unavailable NILL ., DR DIAZ Admitting Unavailable NASH, DR CUBA Mark Consulting Unavailable NILL ., DR DIAZ Consulting Unavailable HOY ., DR RIVER Attending Unavailable HOY ., DR RIVER Primary Care Unavailable HOY ., DR RIVER Consulting Unavailable FAIZAY ., DR RIVER Admsupa Unavailable MD Perico Mccabe Primary Care Provider [phone] MD Enoch Carnes Attending Provider LETHA MONTOYA [...] Unavailable MD Perico Mccabe Primary Care Provider [phone] DO Nelly Arias Attending Provider Enoch Carnes Admitting UnavailEnoch Duffy Attending Unavailbeth e Perico Mccabe Primary Care Unavailable Nelly Arias Admitting Unavailable Nelly Arias Attending Unavailable Perico Mccabe Primary Care Unavailable Perico Mccabe MD Primary Care Provider [phone] CUBA HAYWOOD Attending Unavailable CUBA HAYWOOD Admitting [...] Unavailable Perico Mccabe MD Primary Care Provider [phone] CHELSI KENT Attending Unavailable GLORIA PAGAN Attending Unavailable Medications Current Medications Medication Drug Class(es) Dates Sig (Normalized) Sig (Original) acetaminophen 500 mg oral tablet (5 sources) Start: 05-18-2024 take 2 tablets by mouth every six hours acetaminophen (TYLENOL) 500 mg tablet Take 2 tablets by mouth every 6 hours. 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] Onset: 2 Episodic Other aftercare (1 source) penitentiary (current) use of aspirin; Translations: [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] Onset: 3 Episodic Other aftercare (1 source) Other skilled nursing (current) drug therapy; Translations: [OTH SNF CURRENT DRUG THERAPY] Onset: 3 Episodic Other [...] Onset: 07-08-2022 Episodic Other aftercare (1 source) 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; Translations: [SNF CURRNT USE ANTICOAGULANTS] Onset: 05-10-2022 Episodic Other [...] Range Facility Office Visiton 01-04-2025 Follow-up visit [id number] Ayo Alicia 1960 M Date Provider Department Center 01/04/2025 [facility]-GLORIA PAGAN [facility] Family History Problem Relation Age of Onset Atrial fibrillation Mother Other Mother Other Mother Coronary artery disease Father Family Status - Relation Status Age at Mother Father Level of Service:21982 [place] OFFICE/OUTPATIENT ESTABLISHED MOD MDM 30 MIN Reason for Visit and Comments: Follow-up [462444] - 6 month follow up [facility] CNOVon 08-20-2024 CNOV Office Visit ([facility] ) AYO ALICIA ([id number]) 1960 M Date Time Provider Department 12/20/24 10:40 AM CUBA HAYWOOD [facility] During your visit today, we recorded the [...] spasms. 15 tablet 0 adalimumab (HUMIRA,CF, PEN AMHIPT-GV-UZ) 80 mg/0.8 mL pen kit Inject 80 [...] MD Colorectal Surgery Referring Provider: CUBA HAYWOOD [[id number]] Allergies As of Date: 08/20/2024 (No Known [...] for muscle spasms. - adalimumab (HUMIRA,CF, PEN WVATVB-GS-IV) 80 mg/0.8 mL pen kit Inject 80 mg (more content not included)... Normal [facility] 36on 08-03-2024 36 Goal BP is <130/90, raghav with hx of heart disease. Recommend heart healthy diet and exercise. Also recommend we increase his lisinopril, we can go up to 30mg daily (1.5 tablets of his current 20mg Rx). Follow-up BMP in 2-3 weeks. Thanks [facility] Office Visiton 07-20-2024 Follow-up visit [id number] Ayo Alicia 1960 M Date Provider Department Center 07/20/2024 [facility] Family History Problem Relation Age of Onset Atrial fibrillation Mother Other Mother Other Mother Coronary artery disease Father Family Status - Relation Status Age at Mother Father Level of Service:[id number] [place] OFFICE/OUTPATIENT ESTABLISHED MOD [facility] 30 MIN Reason for Visit and Comments: Coronary Artery Disease [187] Hypertension [850452] Hyperlipidemia [182] [facility] CNOVon 06-04-2024 [facility] Office Visit ([facility] ) AYO ALICIA ([id number]) 1960 M Date Time Provider Department 06/04/24 12:20 PM PEARL CALDERON [facility] During your visit today, we recorded the [...] for internal providers or letter via the [employer] for external providers. Chief Complaint: [...] spasms. 15 tablet 0 adalimumab (HUMIRA,CF, PEN GVPGYE-RE-VI) 80 mg/0.8 mL pen kit Inject 80 [...] tenderness in (more content not included)... Normal [facility] CNDSon 05-18-2024 CNDS HNO ID: [id number] Author: CUBA HAYWOOD MD Service: Colorectal Author [...] tablet Commonly known as: COREG HUMIRA(CF) PEN RHZGKQ-HD-CC 80 mg/0.8 mL pen kit Generic drug: adalimumab lisinopril 20 mg tablet Commonly known as: ZESTRIL PROTONIX 40 mg tablet Generic drug: pantoprazole DR sildenafil 100 mg tablet Commonly known as: VIAGRA STOP taking these medications metroNIDAZOLE 500 mg tablet Commonly known as: FLAGYL neomycin 500 mg tablet Where to Get Your Medications These medications were sent to [facility] [address] [place] [address] Hours: Friday-Friday: 7am-7pm, Sat: 9am-1pm acetaminophen 500 mg tablet lactobacillus rhamnosus 10 billion cell capsule methocarbamol 750 mg tablet oxyCODONE IR 5 mg immediate release tablet Future Appointments Date Time Provider Department Center 06/04/2024 12:20 PM Pearl Calderon APRN.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 [facility] THERAPY NTon 05-17-2024 THERAPY NT HNO ID: [id number] Author: ONEYDA EDWARDS, PT Service: Physical Therapy Author Type: Physical Therapist Type: Therapy (PT/OT/Speech/Resp) Filed: 05/17/2024 13:05 Note Text: PHYSICAL THERAPY MISSED VISIT SERVICE DATE: 05/17/2024 SERVICE TIME: 904 ROOM: [place] [address] Patient not seen due to pt ambulating independently per RN and OT ; will discharge PT order as patient has no further PT needs SIGNATURE: Oneyda Edwards, PT PATIENT NAME: Ayo Rodriguez Withem DATE: May 17, 2024 TIME: 1:04 PM [facility] THERAPY NT HNO ID: [id number] Author: BECCA MONTENEGRO OTR/Rose Service: Occupational Therapy Author Type: Occupational Therapist Type: Therapy (PT/OT/Speech/Resp) Filed: 05/17/2024 12:23 Note Text: OCCUPATIONAL THERAPY MISSED VISIT SERVICE DATE: 05/17/2024 SERVICE TIME: 1220 ROOM: [place] [address] Patient not seen due to Clinical Appropriateness (Pt ambulating unit independently. Pt reported to this therapist that he is doing well, and has no further need for OT. Pt agreeable to discharge at this time. No billable hours.). Pt discharged from OT at this time. SIGNATURE: LAURA Sosa/Rose PATIENT NAME: Ayo Rodriguez Withem DATE: May 17, 2024 TIME: 12:22 PM [facility] ALLIED HEALTHon 05-16-2024 ALLIED HEALTH HNO ID: [id number] Author: JEREMY MALDONADO RT(R) Service: ? Author [...] PATIENT PRESENTS WITH AN IMPLANTABLE OR ATTACHED BELL CAPTAIN: No RADIOLOGY DEPARTMENT: General X-ray: Exam(s) Completed: Abdomen X-Ray: Abdomen PERIPHERAL IV DATA: Not applicable SIGNED BY: RT Tonya(R) May 16, 2024 9:53 AM [facility] NURSING PROGon 05-16-2024 NURSING PROG HNO ID: [id number] Author: AFSANEH EDGE RN Service: Nursing Author Type: Registered Nurse Type: Nursing Progress Note Filed: 05/16/2024 11:03 Note Text: Daily Note: 0725: paged sent to [facility] regarding no lab order for AM. Awaiting response. 0733: per [facility], no labs needed at this time. [facility] XR ABDOMEN 1V SUPINEon 05-16 XR ABDOMEN [...] bowel. Could reflect postoperative ileus or obstruction Convict Guard: AARON Transcribe Date/Time: May 17 2024 7:20A Dictated by : SEBASTIEN ADORNO MD This examination was interpreted and the report reviewed and electronically signed by: SEBASTIEN ADORNO MD on May 17 2024 7:24AM EST [id number] Normal [facility] Basic metabolic 2000 panelon 05-15-2024 Anion gap [Moles/Vol] 8 mmol/L Normal 8-15 [facility] Comment on above: Order Comment: Speci men Type: TISSUE SPECIMEN Ordering Facility: [facility] Address: [address] [place] [address] Performed By: #### S #### [facility] CLIA [id number] [address] [place] [address] [place] [facility] CLIA [id number] [address] [place] [address] [place] Calcium [Mass/Vol] 8.3 mg/dL Low 8.5-10.2 [facility] Comment on above: Order Comment: Speci men Type: TISSUE SPECIMEN Ordering Facility: [facility] Address: [address] [place] [address] Performed By: #### S #### [facility] CLIA [id number] [address] [place] [address] [place] [facility] CLIA [id number] [address] [place] [address] [place] Chloride [Moles/Vol] 106 mmol/L Normal 98-107 [facility] Comment on above: Order Comment: Speci men Type: TISSUE SPECIMEN Ordering Facility: [facility] Address: [address] [place] [address] Performed By: #### S #### [facility] CLIA [id number] [address] [place] [address] [place] [facility] CLIA [id number] [address] [place] [address] [place] CO2 [Moles/Vol] 25 mmol/L Normal 22-30 [facility] Comment on above: Order Comment: Specgasper cho Type: TISSUE SPECIMEN Ordering Facility: [facility] Address: [address] [place] [address] Performed By: #### S #### [facility] CLIA [id number] [address] [place] [address] STATES [facility] CLIA [id number] [address] [place] [address] [place] Creatinine [Mass/Vol] 0.87 mg/dL Normal 0.73-1.22 [facility] Comment on above: Order Comment: Asuncion cho Type: TISSUE SPECIMEN Ordering Facility: [facility] Address: [address] [place] [address] Performed By: #### S #### [facility] CLIA [id number] [address] [place] [address] LAB CLIA [id number] [address] [place] [address] [place] Creatinine and Glomerular filtration rate.predicted panel (S/P/Bld) 96 mL/min/1.73m??? Normal >=60 [facility] Comment on above: Order Comment: Asuncion cho Type: TISSUE SPECIMEN Ordering Facility: [facility] Address: [address] [place] [address] Result Comment: Phyllis mated Glomerular Filtration Rate [...] actual GFR. Performed By: #### S #### [facility] CLIA [id number] [address] [place] [address] [place] [facility] CLIA [id number] [address] [place] [address] [place] Glucose [Mass/Vol] 119 mg/dL High 74-99 [facility] Comment on above: Order Comment: Specgasper men Type: TISSUE SPECIMEN Ordering Facility: [facility] Address: [address] [place] [address] Result Comment: The [place] Diabetes Association (ADA) provides guidance for cutoff [...] Standards of Medical Care in Diabetes 2016, [place] [employer]. Diabetes Care. 2016.39(Suppl 1). Performed By: #### S #### [facility] CLIA [id number] [address] [place] [address] [place] [facility] CLIA [id number] [address] [place] [address] [place] Potassium [Moles/Vol] 4.0 mmol/L Normal 3.7-5.1 [facility] Comment on above: Order Comment: Asuncion cho Type: TISSUE SPECIMEN Ordering Facility: [facility] Address: [address] [place] [address] Performed By: #### S #### [facility] CLIA [id number] [address] [place] [address] [place] [facility] CLIA [id number] [address] [place] [address] [place] Sodium [Moles/Vol] 139 mmol/L Normal 136-144 [facility] Comment on above: Order Comment: Asuncion cho Type: TISSUE SPECIMEN Ordering Facility: [facility] Address: [address] [place] [address] Performed By: #### S #### [facility] CLIA [id number] [address] [place] [address] [place] [facility] CLIA [id number] [address] [place] [address] [place] Urea nitrogen [Mass/Vol] 19 mg/dL Normal 9-24 [facility] Comment on above: Order Comment: Speci men Type: TISSUE SPECIMEN Ordering Facility: [facility] Address: [address] [place] [address] Performed By: #### S #### [facility] CLIA [id number] [address] [place] [address] [place] [facility] CLIA [id number] [address] [place] [address] [place] CBC W Auto Differential pane l (Bld)on 05-15-2024 Basophils (Bld) [#/Vol] 10*3/uL Normal <0.11 [facility] Comment on above: Order Comment: Speci men Type: TISSUE SPECIMEN Ordering Facility: [facility] Address: [address] [place] [address] Performed By: #### S #### [facility] CLIA [id number] [address] [place] [address] [place] [facility] CLIA [id number] [address] [place] [address] [place] Basophils/100 WBC (Bld) 0.2 % Normal [facility] Comment on above: Order Comment: Speci men Type: TISSUE SPECIMEN Ordering Facility: [facility] Address: [address] [place] [address] Performed By: #### S #### [facility] CLIA [id number] [address] [place] [address] [place] [facility] CLIA [id number] [address] [place] [address] [place] Differential cell count method Nom (Bld) Auto Normal [facility] Comment on above: Order Comment: Speci men Type: TISSUE SPECIMEN Ordering Facility: [facility] Address: [address] [place] [address] Performed By: #### S #### [facility] CLIA [id number] [address] [place] [address] [place] [facility] CLIA [id number] [address] [place] [address] [place] Eosinophils (Bld) [#/Vol] 0.07 10*3/uL Normal <0.46 [facility] Comment on above: Order Comment: Speci men Type: TISSUE SPECIMEN Ordering Facility: [facility] Address: [address] [place] [address] Performed By: #### S #### [facility] CLIA [id number] [address] [place] [address] [place] [facility] CLIA [id number] [address] [place] [address] [place] Eosinophils/100 WBC (Bld) 0.6 % Normal [facility] Comment on above: Order Comment: Speci men Type: TISSUE SPECIMEN Ordering Facility: [facility] Address: [address] [place] [address] Performed By: #### S #### [facility] CLIA [id number] [address] [place] [address] [place] [facility] CLIA [id number] [address] [place] [address] [place] Erythrocyte distribution width (RBC) [Ratio] 15.9 % High 11.5-15.0 [facility] Comment on above: Order Comment: Speci men Type: TISSUE SPECIMEN Ordering Facility: [facility] Address: [address] [place] [address] Performed By: #### S #### [facility] CLIA [id number] [address] [place] [address] [place] [facility] CLIA [id number] [address] [place] [address] [place] Hematocrit (Bld) [Volume fraction] 23.5 % Low 39.0-51.0 [facility] Comment on above: Order Comment: Speci men Type: TISSUE SPECIMEN Ordering Facility: [facility] Address: [address] [place] [address] Performed By: #### S #### [facility] CLIA [id number] [address] [place] [address] [place] [facility] CLIA [id number] [address] [place] [address] [place] Hemoglobin (Bld) [Mass/Vol] 7.1 g/dL Low 13.0-17.0 [facility] Comment on above: Order Comment: Speci men Type: TISSUE SPECIMEN Ordering Facility: [facility] Address: [address] [place] [address] Performed By: #### S #### [facility] CLIA [id number] [address] [place] [address] [place] [facility] CLIA [id number] [address] [place] [address] [place] Immature granulocytes (Bld) [#/Vol] 0.07 10*3/uL Normal <0.10 [facility] Comment on above: Order Comment: Speci men Type: TISSUE SPECIMEN Ordering Facility: [facility] Address: [address] [place] [address] Performed By: #### S #### [facility] [place] [id number] [address] [place] [address] [place] [facility] CLIA [id number] [address] [place] [address] [place] Immature granulocytes/100 WBC (Bld) 0.6 % Normal [facility] Comment on above: Order Comment: Speci men Type: TISSUE SPECIMEN Ordering Facility: [facility] Address: [address] [place] [address] Performed By: #### S #### [facility] CLIA [id number] [address] [place] [address] [place] [facility] CLIA [id number] [address] [place] [address] [place] Lymphocytes (Bld) [#/Vol] 1.13 10*3/uL Normal 1.00-4.00 [facility] Comment on above: Order Comment: Speci men Type: TISSUE SPECIMEN Ordering Facility: [facility] Address: [address] [place] [address] Performed By: #### S #### [facility] CLIA [id number] [address] [place] [address] [place] [facility] CLIA [id number] [address] [place] [address] [place] Lymphocytes/100 WBC (Bld) 10.0 % Normal [facility] Comment on above: Order Comment: Speci men Type: TISSUE SPECIMEN Ordering Facility: [facility] Address: [address] [place] [address] Performed By: #### S #### [facility] CLIA [id number] [address] [place] [address] [place] [facility] CLIA [id number] [address] [place] [address] [place] MCH (RBC) [Entitic mass] 26.2 pg Normal 26.0-34.0 [facility] Comment on above: Order Comment: Speci men Type: TISSUE SPECIMEN Ordering Facility: [facility] Address: [address] [place] [address] Performed By: #### S #### [facility] CLIA [id number] [address] [place] [address] [place] [facility] CLIA [id number] [address] [place] [address] [place] MCHC (RBC) [Mass/Vol] 30.2 g/dL Low 30.5-36.0 [facility] Comment on above: Order Comment: Speci men Type: TISSUE SPECIMEN Ordering Facility: [facility] Address: [address] [place] [address] Performed By: #### S #### [facility] CLIA [id number] [address] [place] [address] [place] [facility] CLIA [id number] [address] [place] [address] [place] MCV (RBC) [Entitic vol] 86.7 fL Normal 80.0-100.0 [facility] Comment on above: Order Comment: Speci men Type: TISSUE SPECIMEN Ordering Facility: [facility] Address: [address] [place] [address] Performed By: #### S #### [facility] CLIA [id number] [address] [place] [address] [place] [facility] CLIA [id number] [address] [place] [address] [place] Monocytes (Bld) [#/Vol] 0.98 10*3/uL High <0.87 [facility] Comment on above: Order Comment: Speci men Type: TISSUE SPECIMEN Ordering Facility: [facility] Address: [address] [place] [address] Performed By: #### S #### [facility] CLIA [id number] [address] [place] [address] [place] [facility] CLIA [id number] [address] [place] [address] [place] Monocytes/100 WBC (Bld) 8.7 % Normal [facility] Comment on above: Order Comment: Speci men Type: TISSUE SPECIMEN Ordering Facility: [facility] Address: [address] [place] [address] Performed By: #### S #### [facility] CLIA [id number] [address] [place] [address] [place] [facility] CLIA [id number] [address] [place] [address] [place] Neutrophils (Bld) [#/Vol] 9.02 10*3/uL High 1.45-7.50 [facility] Comment on above: Order Comment: Speci men Type: TISSUE SPECIMEN Ordering Facility: [facility] Address: [address] [place] [address] Performed By: #### S #### [facility] CLIA [id number] [address] [place] [address] [place] [facility] CLIA [id number] [address] [place] [address] [place] Neutrophils/100 WBC (Bld) 79.9 % Normal [facility] Comment on above: Order Comment: Speci men Type: TISSUE SPECIMEN Ordering Facility: [facility] Address: [address] [place] [address] Performed By: #### S #### [facility] CLIA [id number] [address] [place] [address] [place] [facility] CLIA [id number] [address] [place] [address] [place] Nucleated RBC (Bld) [#/Vol] 10*3/uL Normal <0.01 [facility] Comment on above: Order Comment: Speci men Type: TISSUE SPECIMEN Ordering Facility: [facility] Address: [address] [place] [address] Performed By: #### S #### [facility] CLIA [id number] [address] [place] [address] [place] [facility] CLIA [id number] [address] [place] [address] [place] Nucleated RBC/100 WBC (Bld) [Ratio] 0.0 /100 WBC Normal [facility] Comment on above: Order Comment: Speci men Type: TISSUE SPECIMEN Ordering Facility: [facility] Address: [address] [place] [address] Performed By: #### S #### [facility] CLIA [id number] [address] [place] [address] [place] [facility] CLIA [id number] [address] [place] [address] [place] Platelet mean volume (Bld) [Entitic vol] 9.7 fL Normal 9.0-12.7 [facility] Comment on above: Order Comment: Speci men Type: TISSUE SPECIMEN Ordering Facility: [facility] Address: [address] [place] [address] Performed By: #### S #### [facility] CLIA [id number] [address] [place] [address] [place] [facility] CLIA [id number] [address] [place] [address] [place] Platelets (Bld) [#/Vol] 299 10*3/uL Normal 150-400 [facility] Comment on above: Order Comment: Speci men Type: TISSUE SPECIMEN Ordering Facility: [facility] Address: [address] [place] [address] Performed By: #### S #### [facility] CLIA [id number] [address] [place] [address] [place] [facility] CLIA [id number] [address] [place] [address] [place] RBC (Bld) [#/Vol] 2.71 10*6/uL Low 4.20-6.00 [facility] Comment on above: Order Comment: Speci men Type: TISSUE SPECIMEN Ordering Facility: [facility] Address: [address] [place] [address] Performed By: #### S #### [facility] CLIA [id number] [address] [place] [address] [place] [facility] CLIA [id number] [address] [place] [address] [place] WBC (Bld) [#/Vol] 11.29 10*3/uL High 3.70-11.00 [facility] Comment on above: Order Comment: Speci men Type: TISSUE SPECIMEN Ordering Facility: [facility] Address: [address] [place] [address] Performed By: #### S #### [facility] CLIA [id number] [address] [place] [address] [place] [facility] CLIA [id number] [address] [place] [address] [place] CBC panel Auto (Bld)on 05-15 Erythrocyte distribution width (RBC) [Ratio] 15.9 % High 11.5-15.0 [facility] Comment on above: Order Comment: Speci men Type: BLOOD SPECIMENOrdering Facility: [facility] Address: [address] [place] [address] Performed By: #### 5 8410-2 ####[facility] [id number] [address] [facility] Hematocrit (Bld) [Volume fraction] 27.6 % Low 39.0-51.0 [facility] Comment on above: Order Comment: Speci men Type: BLOOD SPECIMENOrdering Facility: [facility] Address: [address] [place] [address] Performed By: #### 5 8410-2 ####[facility] [id number] [address] [place] Hemoglobin (Bld) [Mass/Vol] 8.4 g/dL Low 13.0-17.0 [facility] Comment on above: Order Comment: Speci men Type: BLOOD SPECIMENOrdering Facility: [facility] Address: [address] [place] [address] Performed By: #### 5 8410-2 ####[facility]ORY[facility] [id number] [address] [place] MCH (RBC) [Entitic mass] 26.3 pg Normal 26.0-34.0 [facility] Comment on above: Order Comment: Speci men Type: BLOOD SPECIMENOrdering Facility: [facility] Address: [address] [place] [address] Performed By: #### 5 8410-2 ####[facility]ORY[facility] [id number] [address] [place] MCHC (RBC) [Mass/Vol] 30.4 g/dL Low 30.5-36.0 [facility] Comment on above: Order Comment: Speci men Type: BLOOD SPECIMENOrdering Facility: [facility] Address: [address] [place] [address] Performed By: #### 5 8410-2 ####[facility]ORYCLIA [id number] [place] [id number] [place] MCV (RBC) [Entitic vol] 86.5 fL Normal 80.0-100.0 [facility] Comment on above: Order Comment: Speci men Type: BLOOD SPECIMENOrdering Facility: [facility] Address: [address] [place] [address] Performed By: #### 5 8410-2 ####[facility] [id number] [place] [address] [place] Nucleated RBC (Bld) [#/Vol] 10*3/uL Normal <0.01 [facility] Comment on above: Order Comment: Speci men Type: BLOOD SPECIMENOrdering Facility: [facility] Address: [address] [place] [address] Performed By: #### 5 8410-2 ####[facility] [id number] [place] [address] [place] Platelet mean volume (Bld) [Entitic vol] 9.2 fL Normal 9.0-12.7 [facility] Comment on above: Order Comment: Speci men Type: BLOOD SPECIMENOrdering Facility: [facility] Address: [address] [place] [address] Performed By: #### 5 8410-2 ####[facility] [id number] [place] [address] [place] Platelets (Bld) [#/Vol] 382 10*3/uL Normal 150-400 [facility] Comment on above: Order Comment: Speci men Type: BLOOD SPECIMENOrdering Facility: [facility] Address: [address] [place] [address] Performed By: #### 5 8410-2 ####[facility] [id number] [place] [address] [place] RBC (Bld) [#/Vol] 3.19 10*6/uL Low 4.20-6.00 [facility] Comment on above: Order Comment: Speci men Type: BLOOD SPECIMENOrdering Facility: [facility] Address: [address] [place] [address] Performed By: #### 5 8410-2 ####[facility]ORYCLIA [id number] [place] [address] [place] WBC (Bld) [#/Vol] 12.88 10*3/uL High 3.70-11.00 [facility] Comment on above: Order Comment: Speci men Type: BLOOD SPECIMENOrdering Facility: [facility] Address: [address] [place] [address] Performed By: #### 5 8410-2 ####[facility]ORYCLIA [id number] [place] [address] [place] Magnesium SerPl-mCncon 05-15 Magnesium [Mass/Vol] 1.9 mg/dL Normal 1.7-2.3 [facility] Comment on above: Order Comment: Speci men Type: TISSUE SPECIMEN Ordering Facility: [facility] Address: [address] [place] [address] Performed By: #### S #### [facility] CLIA [id number] [address] [place] [address] [place] [facility] CLIA [id number] [address] [place] [address] [place] Basic metabolic 2000 panelon 05-14-2024 Anion gap [Moles/Vol] 11 mmol/L Normal 8-15 [facility] Comment on above: Order Comment: Speci men Type: BLOOD SPECIMENOrdering Facility: [facility] Address: [address] [place] [address] Performed By: #### 2 4321-2, 42847-9 ####[facility]ORYCLIA [id number] [place] [address] [place] Calcium [Mass/Vol] 8.3 mg/dL Low 8.5-10.2 [facility] Comment on above: Order Comment: Speci men Type: BLOOD SPECIMENOrdering Facility: [facility] Address: [address] [place] [address] Performed By: #### 2 4321-2, ####[facility]ORATORYCLIA [id number] [place] [address] [place] Chloride [Moles/Vol] 104 mmol/L Normal 98-107 [facility] Comment on above: Order Comment: Speci men Type: BLOOD SPECIMENOrdering Facility: [facility] Address: [address] [place] [address] Performed By: #### 2 4321-2, ####[facility]ORYCLIA [id number] [place] [id number] [place] CO2 [Moles/Vol] 22 mmol/L Normal 22-30 [facility] Comment on above: Order Comment: Speci men Type: BLOOD SPECIMENOrdering Facility: [facility] Address: [address] [place] [address] Performed By: #### 2 432-2, ####[facility]ORYCLIA [id number] [place] [id number] [place] Creatinine [Mass/Vol] 0.92 mg/dL Normal 0.73-1.22 [facility] Comment on above: Order Comment: Speci men Type: BLOOD SPECIMENOrdering Facility: [facility] Address: [address] [place] [address] Performed By: #### 2 432-2, ####[facility]ATORYCLIA [id number] [place] [id number] [facility] Creatinine and Glomerular filtration rate.predicted panel (S/P/Bld) 92 mL/min/1.73m??? Normal >=60 [facility] Comment on above: Order Comment: Speci men Type: BLOOD SPECIMENOrdering Facility: [facility] Address: [address] [place] [address] Result Comment: Phyllis mated Glomerular Filtration Rate [...] Performed By: #### 2 43209-02, ####[facility]ORYCLIA [id number] [place] [id number] [place] Glucose [Mass/Vol] 153 mg/dL High 74-99 [facility] Comment on above: Order Comment: Speci men Type: BLOOD SPECIMENOrdering Facility: [facility] Address: [address] [place] [address] Result Comment: The [place] [employer] (ADA) provides guidance for cutoff [...] Standards of Medical Care in Diabetes 2016, [place] [employer]. Diabetes Care. 2016.39(Suppl 1). Performed By: #### 2 4320-10, ####[facility]ORYCLIA [id number] [place] [id number] [place] Potassium [Moles/Vol] 4.2 mmol/L Normal 3.7-5.1 [facility] Comment on above: Order Comment: Speci men Type: BLOOD SPECIMENOrdering Facility: [facility] Address: [address] [place] [address] Performed By: #### 2 4320-10, ####[facility]ORYCLIA [id number] [place] [id number] [place] Sodium [Moles/Vol] 137 mmol/L Normal 136-144 [facility] Comment on above: Order Comment: Speci men Type: BLOOD SPECIMENOrdering Facility: [facility] Address: [address] [place] [address] Performed By: #### 2 4320-10, ####[facility] [id number] [place] [id number] [place] Urea nitrogen [Mass/Vol] 17 mg/dL Normal 9- [facility] Comment on above: Order Comment: Speci men Type: BLOOD SPECIMENOrdering Facility: [facility] Address: [address] [place] [address] Performed By: #### 2 4321-2, ####[facility]ORYCLIA [id number] [place] [id number] [place] CBC W Auto Differential pane l (Bld)on 05-14-2024 Basophils (Bld) [#/Vol] 10*3/uL Normal <0.11 [facility] Comment on above: Order Comment: Speci men Type: TISSUE SPECIMEN Order[facility]: [facility] Address: [address] [place] [address] Performed By: #### S #### [facility] CLIA [id number] [address] [place] [address] [place] [facility] CLIA [id number] [address] [place] [address] [place] Basophils/100 WBC (Bld) 0.1 % Normal [facility] Comment on above: Order Comment: Speci men Type: TISSUE SPECIMEN [facility] Address: [address] [place] [address] Performed By: #### S #### [facility] CLIA [id number] [address] [place] [address] [place] [facility] CLIA [id number] [address] [place] [address] [place] Differential cell count method Nom (Bld) Auto Normal [facility] Comment on above: Order Comment: Speci men Type: TISSUE SPECIMEN [facility] Address: [address] [place] [address] Performed By: #### S #### [facility] CLIA [id number] [address] [place] [address] [place] [facility] CLIA [id number] [address] [place] [address] [place] Eosinophils (Bld) [#/Vol] 10*3/uL Normal <0.46 [facility] Comment on above: Order Comment: Speci men Type: TISSUE SPECIMEN Order[facility]: [facility] Address: [address] [place] [address] Performed By: #### S #### [facility] CLIA [id number] [address] [place] [address] [place] [facility] CLIA [id number] [address] [place] [address] [place] Eosinophils/100 WBC (Bld) 0.0 % Normal [facility] Comment on above: Order Comment: Speci men Type: TISSUE SPECIMEN Order[facility] Facility: [facility] Address: [address] [place] [address] Performed By: #### S #### [facility] CLIA [id number] [address] [place] [address] [place] [facility] CLIA [id number] [address] [place] [address] [place] Erythrocyte distribution width (RBC) [Ratio] 15.0 % Normal 11.5-15.0 [facility] Comment on above: Order Comment: Speci men Type: TISSUE SPECIMEN Order[facility]: [facility] Address: [address] [place] [address] Performed By: #### S #### [facility] CLIA [id number] [address] [place] [address] [place] [facility] CLIA [id number] [address] [place] [address] [place] Hematocrit (Bld) [Volume fraction] 24.4 % Low 39.0-51.0 [facility] Comment on above: Order Comment: Speci men Type: TISSUE SPECIMEN Order[facility]: [facility] Address: [address] [place] [address] Performed By: #### S #### [facility] CLIA [id number] [address] [place] [address] [place] [facility] CLIA [id number] [address] [place] [address] [place] Hemoglobin (Bld) [Mass/Vol] 7.7 g/dL Low 13.0-17.0 [facility] Comment on above: Order Comment: Speci men Type: TISSUE SPECIMEN [facility] Address: [address] [place] [address] Performed By: #### S #### [facility] CLIA [id number] [address] [place] [address] [place] [facility] CLIA [id number] [address] [place] [address] [place] Immature granulocytes (Bld) [#/Vol] 0.06 10*3/uL Normal <0.10 [facility] Comment on above: Order Comment: Speci men Type: TISSUE SPECIMEN [facility]: [facility] Address: [address] [place] [address] Performed By: #### S #### [facility] CLIA [id number] [address] [place] [address] [place] [facility] CLIA [id number] [address] [place] [address] [place] Immature granulocytes/100 WBC (Bld) 0.5 % Normal [facility] Comment on above: Order Comment: Speci men Type: TISSUE SPECIMEN [facility]: [facility] Address: [address] [place] [address] Performed By: #### S #### [facility] CLIA [id number] [address] [place] [address] [place] [facility] CLIA [id number] [address] [place] [address] [place] Lymphocytes (Bld) [#/Vol] 0.45 10*3/uL Low 1.00-4.00 [facility] Comment on above: Order Comment: Speci men Type: TISSUE SPECIMEN Order[facility]: [facility] Address: [address] [place] [address] Performed By: #### S #### [facility] CLIA [id number] [address] [place] [address] [place] [facility] CLIA [id number] [address] [place] [address] [place] Lymphocytes/100 WBC (Bld) 3.7 % Normal [facility] Comment on above: Order Comment: Speci men Type: TISSUE SPECIMEN Order[facility] Facility: [facility] Address: [address] [place] [address] Performed By: #### S #### [facility] CLIA [id number] [address] [place] [address] [place] [facility] CLIA [id number] [address] [place] [address] [place] MCH (RBC) [Entitic mass] 26.6 pg Normal 26.0-34.0 [facility] Comment on above: Order Comment: Speci men Type: TISSUE SPECIMEN [facility] Address: [address] [place] [address] Performed By: #### S #### [facility] [place] [id number] [address] [place] [address] [place] [facility] CLIA [id number] [address] [place] [address] [place] MCHC (RBC) [Mass/Vol] 31.6 g/dL Normal 30.5-36.0 [facility] Comment on above: Order Comment: Speci men Type: TISSUE SPECIMEN Order[facility]: [facility] Address: [address] [place] [address] Performed By: #### S #### [facility] IA [id number] [address] [place] [address] [place] [facility] CLIA [id number] [address] [place] [address] [place] MCV (RBC) [Entitic vol] 84.4 fL Normal 80.0-100.0 [facility] Comment on above: Order Comment: Speci men Type: TISSUE SPECIMEN Order[facility]: [facility] Address: [address] [place] [address] Performed By: #### S #### [facility] CLIA [id number] [address] [place] [address] [place] [facility] CLIA [id number] [address] [place] [address] [place] Monocytes (Bld) [#/Vol] 0.92 10*3/uL High <0.87 [facility] Comment on above: Order Comment: Speci men Type: TISSUE SPECIMEN Order[facility]: [facility] Address: [address] [place] [address] Performed By: #### S #### [facility] CLIA [id number] [address] [place] [address] [place] [facility] CLIA [id number] [address] [place] [address] [place] Monocytes/100 WBC (Bld) 7.6 % Normal [facility] Comment on above: Order Comment: Speci men Type: TISSUE SPECIMEN [facility]: [facility] Address: [address] [place] [address] Performed By: #### S #### [facility] CLIA [id number] [address] [place] [address] [place] [facility] CLIA [id number] [address] [place] [address] [place] Neutrophils (Bld) [#/Vol] 10.69 10*3/uL High 1.45-7.50 [facility] Comment on above: Order Comment: Speci men Type: TISSUE SPECIMEN [facility]: [facility] Address: [address] [place] [address] Performed By: #### S #### [facility] CLIA [id number] [address] [place] [address] [place] [facility] CLIA [id number] [address] [place] [address] [place] Neutrophils/100 WBC (Bld) 88.1 % Normal [facility] Comment on above: Order Comment: Speci men Type: TISSUE SPECIMEN [facility] Facility: [facility] Address: [address] [place] [address] Performed By: #### S #### [facility] CLIA [id number] [address] [place] [address] [place] [facility] CLIA [id number] [address] [place] [address] [place] Nucleated RBC (Bld) [#/Vol] 10*3/uL Normal <0.01 [facility] Comment on above: Order Comment: Speci men Type: TISSUE SPECIMEN [facility]: [facility] Address: [address] [place] [address] Performed By: #### S #### [facility] CLIA [id number] [address] [place] [address] [place] [facility] CLIA [id number] [address] [place] [address] [place] Nucleated RBC/100 WBC (Bld) [Ratio] 0.0 /100 WBC Normal [facility] Comment on above: Order Comment: Speci men Type: TISSUE SPECIMEN Order[facility]: [facility] Address: [address] [place] [address] Performed By: #### S #### [facility] CLIA [id number] [address] [place] [address] [place] [facility] CLIA [id number] [address] [place] [address] [place] Platelet mean volume (Bld) [Entitic vol] 9.5 fL Normal 9.0-12.7 [facility] Comment on above: Order Comment: Speci men Type: TISSUE SPECIMEN Order[facility] Facility: [facility] Address: [address] [place] [address] Performed By: #### S #### [facility] CLIA [id number] [address] [place] [address] [place] [facility] CLIA [id number] [address] [place] [address] [place] Platelets (Bld) [#/Vol] 291 10*3/uL Normal 150-400 [facility] Comment on above: Order Comment: Speci men Type: TISSUE SPECIMEN [facility]: [facility] Address: [address] [place] [address] Performed By: #### S #### [facility] CLIA [id number] [address] [place] [address] [place] [facility] CLIA [id number] [address] [place] [address] [place] RBC (Bld) [#/Vol] 2.89 10*6/uL Low 4.20-6.00 [facility] Comment on above: Order Comment: Speci men Type: TISSUE SPECIMEN Order[facility] Facility: [facility] Address: [address] [place] [address] Performed By: #### S #### [facility] CLIA [id number] [address] [place] [address] [place] [facility] CLIA [id number] [address] [place] [address] [place] WBC (Bld) [#/Vol] 12.13 10*3/uL High 3.70-11.00 [facility] Comment on above: Order Comment: Speci men Type: TISSUE SPECIMEN Order[facility] Facility: [facility] Address: [address] [place] [address] Performed By: #### S #### [facility] CLIA [id number] [address] [place] [address] [place] [facility] CLIA [id number] [address] [place] [address] [place] CBC panel Auto (Bld)on 05-14 Erythrocyte distribution width (RBC) [Ratio] 15.4 % High 11.5-15.0 [facility] Comment on above: Order Comment: Speci men Type: BLOOD SPECIMENOrdering Facility: [facility] Address: [address] [place] [address] Performed By: #### 5 8410-2 ####[facility]ORYCLIA [id number] [address] [place] Hematocrit (Bld) [Volume fraction] 26.3 % Low 39.0-51.0 [facility] Comment on above: Order Comment: Speci men Type: BLOOD SPECIMENOrdering Facility: [facility] Address: [address] [place] [address] Performed By: #### 5 8410-2 ####[facility] LABORATORYCLIA [id number] [place] [address] [place] Hemoglobin (Bld) [Mass/Vol] 8.3 g/dL Low 13.0-17.0 [facility] Comment on above: Order Comment: Speci men Type: BLOOD SPECIMENOrdering Facility: [facility] Address: [address] [place] [address] Performed By: #### 5 8410-2 ####[facility] LABORATORYCLIA [id number] [address] [place] MCH (RBC) [Entitic mass] 26.6 pg Normal 26.0-34.0 [facility] Comment on above: Order Comment: Speci men Type: BLOOD SPECIMENOrdering Facility: [facility] Address: [address] [place] [address] Performed By: #### 5 8410-2 ####DEVIN LABORATORYCLIA [id number] [address] [place] MCHC (RBC) [Mass/Vol] 31.6 g/dL Normal 30.5-36.0 [facility] Comment on above: Order Comment: Speci men Type: BLOOD SPECIMENOrdering Facility: [facility] Address: [address] [place] [address] Performed By: #### 5 8410-2 ####[facility]ORATORYCLIA [id number] [place] [address] [place] MCV (RBC) [Entitic vol] 84.3 fL Normal 80.0-100.0 [facility] Comment on above: Order Comment: Speci men Type: BLOOD SPECIMENOrdering Facility: [facility] Address: [address] [place] [address] Performed By: #### 5 8410-2 ####[facility]ORATORYCLIA [id number] [place] [id number] [place] Nucleated RBC (Bld) [#/Vol] 10*3/uL Normal <0.01 [facility] Comment on above: Order Comment: Speci men Type: BLOOD SPECIMENOrdering Facility: [facility] Address: [address] [place] [address] Performed By: #### 5 8410-2 ####[facility]ORATORYCLIA [id number] [address] [place] Platelet mean volume (Bld) [Entitic vol] 9.5 fL Normal 9.0-12.7 [facility] Comment on above: Order Comment: Speci men Type: BLOOD SPECIMENOrdering Facility: [facility] Address: [address] [place] [address] Performed By: #### 5 8410-2 ####[facility]ORATORYCLIA [id number] [place] [address] [place] Platelets (Bld) [#/Vol] 382 10*3/uL Normal 150-400 [facility] Comment on above: Order Comment: Speci men Type: BLOOD SPECIMENOrdering Facility: [facility] Address: [address] [place] [address] Performed By: #### 5 8410-2 ####[facility]ORATORYCLIA [id number] [place] [address] [place] RBC (Bld) [#/Vol] 3.12 10*6/uL Low 4.20-6.00 [facility] Comment on above: Order Comment: Speci men Type: BLOOD SPECIMENOrdering Facility: [facility] Address: [address] [place] [address] Performed By: #### 5 8410-2 ####[facility]ATORYCLIA [id number] [place] [address] [place] WBC (Bld) [#/Vol] 17.27 10*3/uL High 3.70-11.00 [facility] Comment on above: Order Comment: Speci men Type: BLOOD SPECIMENOrdering Facility: [facility] Address: [address] [place] [address] Performed By: #### 5 8410-2 ####[facility]ORYCLIA [id number] [place] [address] [place] Magnesium SerPl-mCncon 05-14 Magnesium [Mass/Vol] 1.4 mg/dL Low 1.7-2.3 [facility] Comment on above: Order Comment: Speci men Type: BLOOD SPECIMENOrdering Facility: [facility] Address: [address] [place] [address] Performed By: #### 2 4321-2, 76880-0 ####[facility]ORYCLIA [id number] [place] [address] [place] NURSING PROGon 05-14-2024 NURSING PROG HNO ID: [id number] Author: LUI NGO RN Service: Nursing Author Type: Registered Nurse Type: Nursing Progress Note Filed: 05/14/2024 02:19 Note Text: 2131: pt AANDOx3. C/o 3/10 pain to abdomen. Denies nausea at this time. No flatus since surgery. Tolerating ice chips and popsicles. 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 Perez draining keith urine. A-fib on telemetry. Lungs diminished on RA. No needs at this time. 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) Comments: Sig Other works FT Entry To [...] Muscle Weakness (generalized) TREATMENT INTERVENTIONS Evaluation, Self Custodial Management (60602) Timed Code Treatment (minutes): 10 Skilled Treatment Time (minutes): 25 TRAINING AND EDUCATION PROVIDED Activity Adaptation/Linux Engineer y Strategies, Adaptive Equipment/DME, Assistive Device Use, Bed Mobility, Benefits of In-Hospital Mobility, Discharge Planning, Disease Specific Education, Energy Conservation, Expected Functional Level, Precautions/Restrictio ns, Role of Occupational Therapy, Positioning, Safety/Judgment, Standing Balance to Improve [place] with ADLs/Self-Care, Transfer - Bed to Chair, [...] May 14, 2024 TIME: 10:51 AM Normal [facility] THERAPY NT HNO ID: [id number] Author: ONEYDA EDWARDS, PT Service: Physical Therapy Author Type: Physical Therapist Type: Therapy (PT/OT/Speech/Resp) Filed: 05/14/2024 09:57 Note Text: Physical Therapy Evaluation Summary SERVICE DATE: 05/14/2024 SERVICE TIME: 904 to 930 ROOM: [place] [address] PT 6 Clicks Score: 21 DISCHARGE RECOMMENDATIONS [...] Significant Other Assistance Available: 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) Entry To Home: Stairs, With Rail Number [...] and signs-other TREATMENT INTERVENTIONS Evaluation, Gait Training (83263) Timed Code Treatment (minutes): 11 Skilled Treatment [...] DATE: May 14, 2024 TIME: 9:57 AM [facility] ANES POSTPROC EVALon 024 ANES POSTPROC EVAL HNO ID: [id number] Author: ORLANDO TINSLEY MD Service: Anesthesiology Author Type: Anesthesiologist Type: Anesthesia Postprocedure Evaluation Filed: 05/13/2024 12:03 Note Text: POST ANESTHESIA EVALUATION NOTE : 1960 Procedure Summary Date: 05/13/24 Room / Location: [place] [address] / OR Anesthesia Start: 742 Anesthesia Stop: [...] Rodriguez Withem DATE: May 13, 2024 TIME: 12:03 PM CSN: [id number] [facility] ANES PRE-OPon 05-13-2024 ANES PRE-OP HNO ID: [id number] Author: ORLANDO TINSLEY MD Service: Anesthesiology Author [...] and consent discussed: yes. Patient / Responsible Constitution Party agrees to proceed: yes Patient / Surrogate [...] May 13, 2024 TIME: 7:27 AM CSN: [id number] [facility] BRIEF OP NOTon 05-13-2024 BRIEF OP NOT HNO ID: [id number] Author: JOSE J JOHNS MD Service: Colorectal Author Type: Resident Type: Brief Op Note Filed: 05/13/2024 10:56 Note Text: DDSI BRIEF OP NOTE LOG ID: [id number] SURGERY/PROCEDURE DATE: 05/13/2024 INCISION/PROCEDURE START TIME: 8:27 AM INCISION CLOSE/PROCEDURE END TIME: 10:28 AM SURGEON(S)/PROCEDURALI ST(S) AND BACK UP WORKER(S): Surgeons and Role: * Cuba Haywood MD [...] 13, 2024 TIME: 10:49 AM PAGER/CONTACT #: [facility] NURSING PROGon 05-13-2024 NURSING PROG HNO ID: [id number] Author: RENEE CAICEDO RN Service: ? Author Type: Registered Nurse Type: Nursing Progress Note Filed: 05/13/2024 13:40 Note Text: Transfer Note: PATIENT NAME: Ayo Alicia Patient Location: [place] [address]/[id number] Room: [place] [address] Patient transferred into room/unit PK314 in stable condition. Actions taken: No futher actions taken at this time. Will continue to monitor and check with patient. [facility] NURSING PROG HNO ID: [id number] Author: DAMARI DAY RN Service: Nursing Author Type: Registered Nurse Type: Nursing Progress Note Filed: 05/13/2024 13:35 Note Text: Transfer Note: PATIENT NAME: Ayo Alicia Patient Location: [place] [address]/[id number] Room: [place] [address] [facility] in stable condition. Actions taken: No futher actions taken at this time. Will continue to monitor and check with patient. Normal [facility] OPERATIVE NOon 05-13-2024 OPERATIVE NO HNO ID: [id number] Author: CUBA HAYWOOD MD Service: Colorectal Author Type: Physician Type: Operative Report Filed: 05/15/2024 18:24 Note Text: COLON AND RECTAL SURGERY OPERATIVE REPORT PATIENT NAME: Ayo Alicia ADMISSION DATE: 05/13/2024 LOG ID: [id number] SURGERY/PROCEDURE DATE: 05/13/2024 INCISION/PROCEDURE START TIME: 8:27 AM INCISION CLOSE/PROCEDURE END TIME: 10:28 AM AGE: [age] year old SEX: male SURGEON(S)/PROCEDURALI ST(S) AND BACK UP WORKER(S): Surgeons and Role: * Cuba Haywood MD [...] were divided with JETHRO-80 purple stapler. A xxub-wa-mkav functional end-to-end anastomosis was created using a [...] Surgery Division of Colon and Rectal Surgery [facility] PT EDon 05-13-2024 PT ED HNO ID: [id number] Author: BECCA OZUNA RN Service: ? Author [...] (RECOMMENDATION): None Electronically Signed By: Becca Ozuna [facility] SURGICAL PATHOLOGYon 024 ADDENDUM 1: [facility] Comment on above: Order Comment: Speci men Type: TISSUE SPECIMEN [facility] Address: [address] [place] [address] Result Comment: A CD 10 immunostain was inadvertently omitted from the final report. The result is negative in the lymphoid infiltrate. There is no change to the final diagnosis. Addendum electronically signed by Neda Clarke DO on 06/09/2024 at 3:03 PM Performed By: #### S #### [facility] CLIA [id number] [address] [place] [address] LAB CLIA [id number] [address] [place] [address] OF [facility] CASE REPORT [facility] Comment on above: Order Comment: Speci men Type: TISSUE SPECIMEN [facility] Address: [address] [place] [address] Result Comment: Surg [facility] Pathology Report Case: [id number] Authorizing Provider: Cuba Haywood MD Collected: 05/13/2024 09:36 AM Ordering Location: [facility] Received: 05/13/2024 10:04 AM Operating Room Pathologist: Beto Mosley MD Specimen: Small Bowel, Terminal Ileum, Resection, terminal ileum AND CECUM Performed By: #### S #### [facility] CLIA [id number] [address] [place] [address] LAB CLIA [id number] [address] [place] [address] CLINICAL HISTORY Normal [facility] Comment on above: Order Comment: Speci men Type: TISSUE SPECIMEN [facility] Address: [address] [place] [address] Result Comment: Pre- op diagnosis: Crohn's disease of both small and large intestine without complication (HCC) [K50.80] Performed By: #### S #### [facility] CLIA [id number] [place] [facility] CLIA [id number] [address] [facility] DESK [id number] DIAGNOSIS COMMENT Normal [facility] Comment on above: Order Comment: Speci men Type: TISSUE SPECIMEN [facility] Address: [address] [place] [address] Result Comment: The histologic findings in the [...] or CD7. CD21 highlights a few residual USP meshworks. CD20 stains fewer small B cells. [...] been determined by the performing laboratory within [facility]???s Josafat Naranjo Pathology and Laboratory Medicine Department ([facility], [facility], [facility], [facility], [facility], [facility], or [facility]) in a manner consistent with CLIA requirements. One or more of these tests have not been cleared or approved by the FDA. [facility] is regulated under CLIA as qualified to perform high-complexity testing. These tests are used for clinical purposes. They should not be regarded as investigational or for research. Positive and negative controls stain appropriately. 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 - Retained endoscopy capsule. - Appendix with fibrolipomatous obliteration. - Cecum with no diagnostic abnormality. - Benign lymph nodes with paracortical hyperplasia. - See comment. JERose 05/17/2024 Performed By: #### S #### [facility] CLIA [id number] [address] [place] [address] STATES OF [facility] LAB CLIA [id number] [address] [place] [address] FINAL PERFORMING LAB Normal [facility] Comment on above: Order Comment: Speci men Type: TISSUE SPECIMEN [facility] Address: [address] [place] [address] Result Comment: Diag nostic interpretation performed at [facility], [address] [place] [id number] CLIA# [id number] Veneer Clipper: Bette Mcmillan M.D. Performed By: #### S #### [facility] CLIA [id number] [place] [id number] [place] [facility] CLIA [id number] [address] [facility] DESK [id number] [place] GROSS DESCRIPTION Normal [facility] Comment on above: Order Comment: Speci men Type: TISSUE SPECIMEN [facility] Address: [address] [place] [address] Result Comment: A. S mall Bowel, Terminal [...] up to 1 cm in greatest dimension. Electrical Controls Assembler sections are submitted as follows: A1 perpendicular [...] 2024 11:35 AM Gross examination performed at [facility], [address] [place] [address] CLIA # [id number] Additional sections are submitted as follows: A17 four intact lymph nodes, A18 four intact lymph nodes. WE May 20, 2024 7:50 AM Gross examination performed at [facility], [address] [place] [address] Performed By: #### S #### [facility] CLIA [id number] [place] [address] LAB CLIA [id number] [address] [facility] [place] [address] [place] T-CELL CLONALITY BIOMED2 [facility] Katerina 05-13-2024 T-CELL CLONALITY BIOMED2 OTHER Normal [facility] Comment on above: Order Comment: Speci men Type: TISSUE SPECIMEN [facility] Address: [address] [place] [address] Result Comment: [facility] Accession Number: [id number] Case #: [id number] Block #: A16 Sample Description: Terminal Ileum [...] beta (TCRB) and gamma (TCRG) chain loci ([place], [place], [place]). Fluorescently labeled PCR products were analyzed [...] developed and its performance characteristics determined by [facility]'s Pathology and Laboratory Medicine Department. It has not been cleared or approved by the FDA. [facility]'s Pathology and Laboratory Medicine Department is regulated under CLIA as certified to perform high-complexity testing. This test is used for clinical purposes. It should not be regarded as investigational or for research. Testing and interpretation performed at [facility], [address] [place] [address]. 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 - adalimumab (HUMIRA,CF, PEN [id number]) 80 mg/0.8 mL pen kit Inject 80 [...] Status:Closed by ERNA MONTOYA on 05/07/24 Normal [facility] CBC W Auto Differential pane l (Bld)on 04-30-2024 Basophils (Bld) [#/Vol] 0.04 10*3/uL Normal <0.11 [facility] Comment on above: Order Comment: Speci men Type: BLOOD SPECIMEN [facility] Address: [address] [place] [address] Performed By: #### 5 7021-8 #### [facility] CLIA [id number] [address] [place] [address] [place] Basophils/100 WBC (Bld) 0.7 % Normal [facility] Comment on above: Order Comment: Speci men Type: BLOOD SPECIMEN [facility] Address: [address] [place] [address] Performed By: #### 5 7021-8 #### [facility] CLIA [id number] [address] [place] [address] [place] Differential cell count method Nom (Bld) Auto Normal [facility] Comment on above: Order Comment: Speci men Type: BLOOD SPECIMEN [facility] Address: [address] [place] [address] Performed By: #### 5 7021-8 #### [facility] CLIA [id number] [address] [place] [address] [place] Eosinophils (Bld) [#/Vol] 0.21 10*3/uL Normal <0.46 [facility] Comment on above: Order Comment: Speci men Type: BLOOD SPECIMEN [facility] Address: [address] [place] [address] Performed By: #### 5 7021-8 #### [facility] CLIA [id number] [address] [place] [address] [place] Eosinophils/100 WBC (Bld) 3.6 % Normal [facility] Comment on above: Order Comment: Speci men Type: BLOOD SPECIMEN [facility] Address: [address] [place] [address] Performed By: #### 5 7021-8 #### [facility] CLIA [id number] [address] [place] [address] [place] Erythrocyte distribution width (RBC) [Ratio] 15.2 % High 11.5-15.0 [facility] Comment on above: Order Comment: Speci men Type: BLOOD SPECIMEN [facility] Address: [address] [place] [address] Performed By: #### 5 7021-8 #### [facility] CLIA [id number] [address] [place] [address] [place] Hematocrit (Bld) [Volume fraction] 26.4 % Low 39.0-51.0 [facility] Comment on above: Order Comment: Speci men Type: BLOOD SPECIMEN [facility] Address: [address] [place] [address] Performed By: #### 5 7021-8 #### [facility] CLIA [id number] [address] [place] [address] [place] Hemoglobin (Bld) [Mass/Vol] 7.7 g/dL Low 13.0-17.0 [facility] Comment on above: Order Comment: Speci men Type: BLOOD SPECIMEN [facility] Address: [address] [place] [address] Performed By: #### 5 7021-8 #### [facility] CLIA [id number] [address] [place] [address] [place] Immature granulocytes (Bld) [#/Vol] 0.03 10*3/uL Normal <0.10 [facility] Comment on above: Order Comment: Speci men Type: BLOOD SPECIMEN [facility] Address: [address] [place] [address] Performed By: #### 5 7021-8 #### [facility] CLIA [id number] [address] [place] [address] [place] Immature granulocytes/100 WBC (Bld) 0.5 % Normal [facility] Comment on above: Order Comment: Speci men Type: BLOOD SPECIMEN [facility] Address: [address] [place] [address] Performed By: #### 5 7021-8 #### [facility] CLIA [id number] [address] [place] [address] [place] Lymphocytes (Bld) [#/Vol] 1.32 10*3/uL Normal 1.00-4.00 [facility] Comment on above: Order Comment: Speci men Type: BLOOD SPECIMEN [facility] Address: [address] [place] [address] Performed By: #### 5 7021-8 #### [facility] CLIA [id number] [address] [place] [address] [place] Lymphocytes/100 WBC (Bld) 22.5 % Normal [facility] Comment on above: Order Comment: Speci men Type: BLOOD SPECIMEN [facility] Address: [address] [place] [address] Performed By: #### 5 7021-8 #### [facility] CLIA [id number] [address] [place] [address] [place] MCH (RBC) [Entitic mass] 25.3 pg Low 26.0-34.0 [facility] Comment on above: Order Comment: Speci men Type: BLOOD SPECIMEN [facility] Address: [address] [place] [address] Performed By: #### 5 7021-8 #### [facility] CLIA [id number] [address] [place] [address] [place] MCHC (RBC) [Mass/Vol] 29.2 g/dL Low 30.5-36.0 [facility] Comment on above: Order Comment: Speci men Type: BLOOD SPECIMEN [facility] Address: [address] [place] [address] Performed By: #### 5 7021-8 #### [facility] CLIA [id number] [address] [place] [address] [place] MCV (RBC) [Entitic vol] 86.8 fL Normal 80.0-100.0 [facility] Comment on above: Order Comment: Speci men Type: BLOOD SPECIMEN [facility] Address: [address] [place] [address] Performed By: #### 5 7021-8 #### [facility] CLIA [id number] [address] [place] [address] [place] Monocytes (Bld) [#/Vol] 0.62 10*3/uL Normal <0.87 [facility] Comment on above: Order Comment: Speci men Type: BLOOD SPECIMEN [facility] Address: [address] [place] [address] Performed By: #### 5 7021-8 #### [facility] CLIA [id number] [address] [place] [address] [place] Monocytes/100 WBC (Bld) 10.6 % Normal [facility] Comment on above: Order Comment: Speci men Type: BLOOD SPECIMEN [facility] Address: [address] [place] [address] Performed By: #### 5 7021-8 #### [facility] CLIA [id number] [address] [place] [address] [place] Neutrophils (Bld) [#/Vol] 3.64 10*3/uL Normal 1.45-7.50 [facility] Comment on above: Order Comment: Speci men Type: BLOOD SPECIMEN [facility] Address: [address] [place] [address] Performed By: #### 5 7021-8 #### [facility] CLIA [id number] [address] [place] [address] [place] Neutrophils/100 WBC (Bld) 62.1 % Normal [facility] Comment on above: Order Comment: Speci men Type: BLOOD SPECIMEN [facility] Address: [address] [place] [address] Performed By: #### 5 7021-8 #### [facility] CLIA [id number] [address] [place] [address] [place] Nucleated RBC (Bld) [#/Vol] 10*3/uL Normal <0.01 [facility] Comment on above: Order Comment: Speci men Type: BLOOD SPECIMEN [facility] Address: [address] [place] [address] Performed By: #### 5 7021-8 #### [facility] CLIA [id number] [address] [place] [address] [place] Nucleated RBC/100 WBC (Bld) [Ratio] 0.0 /100 WBC Normal [facility] Comment on above: Order Comment: Speci men Type: BLOOD SPECIMEN [facility] Address: [address] [place] [address] Performed By: #### 5 7021-8 #### [facility] CLIA [id number] [address] [place] [address] [place] Platelet mean volume (Bld) [Entitic vol] 10.1 fL Normal 9.0-12.7 [facility] Comment on above: Order Comment: Speci men Type: BLOOD SPECIMEN Ordering Facility: [facility] Address: [address] [place] [address] Performed By: #### 5 7021-8 #### [facility] CLIA [id number] [address] [place], [place] [id number] [place] Platelets (Bld) [#/Vol] 300 10*3/uL Normal 150-400 [facility] Comment on above: Order Comment: Speci men Type: BLOOD SPECIMEN Ordering Facility: [facility] Address: [address] [place] [address] Performed By: #### 5 7021-8 #### [facility] CLIA [id number] [address] [place] [address] [place] RBC (Bld) [#/Vol] 3.04 10*6/uL Low 4.20-6.00 [facility] Comment on above: Order Comment: Speci men Type: BLOOD SPECIMEN Ordering Facility: [facility] Address: [address] [place] [address] Performed By: #### 5 7021-8 #### [facility] CLIA [id number] [address] [place] [address] [place] WBC (Bld) [#/Vol] 5.86 10*3/uL Normal 3.70-11.00 [facility] Comment on above: Order Comment: Speci men Type: BLOOD SPECIMEN Ordering Facility: [facility] Address: [address] [place] [address] Performed By: #### 5 7021-8 #### [facility] CLIA [id number] [address] [place], [place] [address] [place] CONFIRM BLOOD TYPEon 024 ABO A Normal [facility] Comment on above: Order Comment: Speci men Type: BLOOD SPECIMEN Ordering Facility: [facility] Address: [address] [place] [address] Performed By: #### C ONABO #### [facility] CLIA [id number] [address] [place] [address] [place] Rh Nom (Bld) Positive Normal [facility] Comment on above: Order Comment: Speci men Type: BLOOD SPECIMEN Ordering Facility: [facility] Address: [address] [place] [address] Performed By: #### C ONABO #### [facility] CLIA [id number] [address] [place] [address] [place] Comprehensive metabolic 2000 panelon 04-30-2024 Albumin [Mass/Vol] 3.6 g/dL Low 3.9-4.9 [facility] Comment on above: Order Comment: Speci men Type: BLOOD SPECIMEN Ordering Facility: [facility] Address: [address] [place] [address] Performed By: #### 2 4323-8 #### [facility] CLIA [id number] [address] [place] [address] [place] ALP [Catalytic activity/Vol] 59 U/L Normal 38-113 [facility] Comment on above: Order Comment: Speci men Type: BLOOD SPECIMEN Ordering Facility: [facility] Address: [address] [place] [address] Performed By: #### 2 4323-8 #### [facility] CLIA [id number] [address] [place] [address] [place] ALT [Catalytic activity/Vol] 8 U/L Low 10-54 [facility] Comment on above: Order Comment: Speci men Type: BLOOD SPECIMEN Ordering Facility: [facility] Address: [address] [place] [address] Performed By: #### 2 4323-8 #### [facility] CLIA [id number] [address] [place] [address] [place] Anion gap [Moles/Vol] 9 mmol/L Normal 8-15 [facility] Comment on above: Order Comment: Speci men Type: BLOOD SPECIMEN Ordering Facility: [facility] Address: [address] [place] [address] Performed By: #### 2 4323-8 #### [facility] CLIA [id number] [address] [place] [address] [place] AST [Catalytic activity/Vol] 16 U/L Normal 14-40 [facility] Comment on above: Order Comment: Speci men Type: BLOOD SPECIMEN Ordering Facility: [facility] Address: [address] [place] [address] Performed By: #### 2 4323-8 #### [facility] CLIA [id number] [address] [place] [address] [place] Bilirubin [Mass/Vol] 0.5 mg/dL Normal 0.2-1.3 [facility] Comment on above: Order Comment: Speci men Type: BLOOD SPECIMEN Ordering Facility: [facility] Address: [address] [place] [address] Performed By: #### 2 4323-8 #### [facility] CLIA [id number] [address] [place] [address] [place] Calcium [Mass/Vol] 8.3 mg/dL Low 8.5-10.2 [facility] Comment on above: Order Comment: Speci men Type: BLOOD SPECIMEN Ordering Facility: [facility] Address: [address] [place] [address] Performed By: #### 2 4323-8 #### [facility] CLIA [id number] [address] [place] [address] [place] Chloride [Moles/Vol] 106 mmol/L Normal 98-107 [facility] Comment on above: Order Comment: Speci men Type: BLOOD SPECIMEN Ordering Facility: [facility] Address: [address] [place] [address] Performed By: #### 2 4323-8 #### [facility] CLIA [id number] [address] [place] [address] [place] CO2 [Moles/Vol] 25 mmol/L Normal 22-30 [facility] Comment on above: Order Comment: Speci men Type: BLOOD SPECIMEN Ordering Facility: [facility] Address: [address] [place] [address] Performed By: #### 2 4323-8 #### [facility] CLIA [id number] [address] [place] [address] [place] Creatinine [Mass/Vol] 0.87 mg/dL Normal 0.73-1.22 [facility] Comment on above: Order Comment: Speci men Type: BLOOD SPECIMEN Ordering Facility: [facility] Address: [address] [place] [address] Performed By: #### 2 4323-8 #### [facility] CLIA [id number] [address] [place] [address] [place] Creatinine and Glomerular filtration rate.predicted panel (S/P/Bld) 96 mL/min/1.73m??? Normal >=60 [facility] Comment on above: Order Comment: Speci men Type: BLOOD SPECIMEN Ordering Facility: [facility] Address: [address] [place] [address] Result Comment: Phyllis mated Glomerular Filtration Rate [...] GFR. Performed By: #### 2 4323-8 #### [facility] CLIA [id number] [address] [place] [address] [place] Glucose [Mass/Vol] 104 mg/dL High 74-99 [facility] Comment on above: Order Comment: Speci men Type: BLOOD SPECIMEN Ordering Facility: [facility] Address: [address] [place] [address] Result Comment: The [place] Diabetes Association (ADA) provides guidance for cutoff [...] Standards of Medical Care in Diabetes 2016, [place] [employer]. Diabetes Care. 2016.39(Suppl 1). Performed By: #### 2 4323-8 #### [facility] CLIA [id number] [address] [place] [address] [place] Potassium [Moles/Vol] 4.5 mmol/L Normal 3.7-5.1 [facility] Comment on above: Order Comment: Speci men Type: BLOOD SPECIMEN Ordering Facility: [facility] Address: [address] [place] [address] Performed By: #### 2 4323-8 #### [facility] CLIA [id number] [address] [place] [address] [place] Protein [Mass/Vol] 5.8 g/dL Low 6.3-8.0 [facility] Comment on above: Order Comment: Michaeli men Type: BLOOD SPECIMEN Ordering Facility: [facility] Address: [address] [place] [address] Performed By: #### 2 4323-8 #### [facility] CLIA [id number] [address] [place] [address] [place] Sodium [Moles/Vol] 140 mmol/L Normal 136-144 [facility] Comment on above: Order Comment: Speci men Type: BLOOD SPECIMEN Ordering Facility: [facility] Address: [address] [place] [address] Performed By: #### 2 4323-8 #### [facility] CLIA [id number] [address] [place] [address] [place] Urea nitrogen [Mass/Vol] 13 mg/dL Normal 9-24 [facility] Comment on above: Order Comment: Speci men Type: BLOOD SPECIMEN Ordering Facility: [facility] Address: [address] [place] [address] Performed By: #### 2 4323-8 #### [facility] CLIA [id number] [address] [place] [address] [place] ECG COMPLETEon 04-30-2024 ECG COMPLETE Ventricular Rate : 6 5 BPM Atrial Rate : 65 BPM P-R Interval : 150 ms QRS Duration : 90 ms Q-T Interval : 416 ms QTC Calculation(Bazett) : 432 ms Calculated P [place] : -17 degrees Calculated R [place] : 49 degrees Calculated T [place] : 44 degrees NORMAL SINUS RHYTHM NORMAL ECG Confirmed by FIDEL WILLOUGHBY MD ([id number]) on 05/24/2024 9:51:42 AM NAME : AYO ALICIA PID : [id number] : 1960 Gender : Male Race : Unknown ORD : [id number] Procedure Date : Apr 30 2024 13:55:34 [...] [place] Acquired by : vanessa mayer Normal [facility] HISTORY PHYSICALon HISTORY PHYSICAL HNO ID: [id number] Author: DOLLY NELSON APRN.JOVANA Service: ? Author [...] or recurrence Follows with Dr. Pagan @ [place] Atherosclerosis of coronary artery Assessment: Stable S/p Stenting in 2020 On ASA, DOAC, AND Statin Negative stress test 06/17/2023 Follows with Cardiology at [place] GERD (gastroesophageal reflux disease) Assessment: Controlled with [...] have a large neck STOP-Bang Score: 3 [id number] Score: Age: 65-74 Sex: male CHF history: No Hypertension history: Yes Stroke/TIA/thromboembo lism history: No Vascular disease history: Yes Diabetes history: No [id number] Score: 3 ARISCAT Score: Age: 51-80 Preoperative [...] plasma, cryoprecipit (more content not included)... Normal [facility] TYPE AND SCREEN,30 DAYon ABO A Normal [facility] Comment on above: Order Comment: Asuncion cho Type: BLOOD SPECIMEN Ordering Facility: [facility] Address: [address] [place] [address] Performed By: #### T SCR30 #### [facility] CLIA [id number] [address] [place] [address] [place] HISTORICAL AB SCR STATUS Negative Normal [facility] Comment on above: Order Comment: Asuncion cho Type: BLOOD SPECIMEN Ordering Facility: [facility] Address: [address] [place] [address] Performed By: #### T SCR30 #### [facility] CLIA [id number] [address] [place] [address] [place] Rh Nom (Bld) Positive Normal [facility] Comment on above: Order Comment: Asuncion cho Type: BLOOD SPECIMEN Ordering Facility: [facility] Address: [address] [place] [address] Performed By: #### T SCR30 #### [facility] CLIA [id number] [address] [place] [address] [place] CNOVon 04-28-2024 CNOV Office Visit ([facility] ) AYO ALICIA ([id number]) 1960 Date Time Provider Department 04/28/24 12:20 PM CUBA HAYWOOD [facility] During your visit today, we recorded the [...] for internal providers or letter via the [employer] for external providers. Chief Complaint: retained capsule History of Present Illness: Ayo Alicia is a 64 year old male presents today for evaluation of retained endoscopic camera. Crohn's disease - [facility] 04/16/24 Scan on 04/22/2024 8:26 AM by Lisa Arreaga: [facility] CT ABD AND PEL [phone] - Tiny hiatal hernia - Cholelithiasis - [...] BLOOD COUNT AND DIFFERENTIAL [SQCBCDIF] Order #: [id number] FUTURE COMPREHENSIVE METABOLIC PANEL [SQCMP] Order #: [id number] FUTURE metroNIDAZOLE (FLAGYL) 500 mg tabletTake 1 [...] by mouth. (more content not included)... Normal [facility] CT enterographyon 04-16-2024 CT enterography [facility] [place] [address] [place] [address] CT Scan Report Signed Patient: Ayo Alicia MR#: [id number] : 1960 Acct:[id number] Age/Sex: 64 / M ADM Date: 04/16/24 Loc: CT Room: Type: [facility] Attending Dr: Nelly Arias DO Copies to: [...] Keiko Wan M.D.04/16/2024 2:55 PM Dictation Location: [place] [address] Transcribed By: [facility] 04/16/24 1926 Dictated By: Keiko Wan MD 04/16/24 1447 Signed By: 04/16/24 145 Normal [facility] Creatinineon 04-16-2024 GFR/1.73 sq M.predicted MDRD (S/P/Bld) [Vol rate/Area] mL/min/{1.73_m2} Normal [facility] Comment on above: Result Comment: PERF ORMED BY: [place] [address] PATHOLOGIST PATTERN KEEPER ANIYA BRUCE M.D. Performed By: #### B UN, CREAT #### [facility] [address] [place] [address] Creatinine [Mass/volume] in Serum or PlasmaOrdered By: Nelly Arias on 04-16-2024 Creatinine [Mass/Vol] 0.98 mg/dL Normal 0.70-1.[address] [facility] Comment on above: Performed By: #### B UN, CREAT #### [facility] [address] [place] [address] No Panel InformationOrdered By: Nelly Arias on 04-16-2024 Estimated GFR (CKD-EPI) > 60.0 mL/Min [facility] Creatinine Clearance (Chem N/A [facility] Urea nitrogen [Mass/volume] in Serum or PlasmaOrdered By: Nelly Arias on 04-16-2024 Urea nitrogen [Mass/Vol] 24 mg/dL Normal 7-25 [facility] Comment on above: Performed By: #### B UN, CREAT #### [facility] [address] [place] [address] HEMOGLOBINon 08-27-2023 Hemoglobin (Bld) [Mass/Vol] 12.3 g/dL Low 13.0-17.0 [facility] Comment on above: Performed By: #### 7 18-7 #### [facility] ([id number]) [address], [address] [place] [address] Hemoglobinon 08-27-2023 Hemoglobin (Bld) [Mass/Vol] 12.3 g/dL Low 13.0 - 17.0 g/dL [facility] Hemoglobin (Bld) [Mass/Vol]o n 08-27-2023 Interpretation and review of laboratory results Abnormal [facility] Albumin [Mass/volume] in Ser um or Plasma by Bromocresol green (BCG) dye binding methoOrdered By: Enoch Carnes on 04-23-2023 Albumin BCG dye [Mass/Vol] 3.8 g/dL 3.5-5.7 [facility] Automated basophil %Ordered By: Enoch Carnes on 04-23-2023 Basophils/100 WBC (Bld) 0.8 % Normal . [facility] Comment on above: Order Comment: Reaso n for Exam Crohns disease Performed By: #### C BC, CMP #### [address] Automated basophil countOrde red By: Enoch Carnes on 04-23-2023 Basophils (Bld) [#/Vol] 0.1 10*3/uL Normal 0.0-0.2 [facility] Comment on above: Order Comment: Reaso n for Exam Crohns disease Result Comment: PERF ORMED BY: [place] [address] PATHOLOGIST PATTERN KEEPER ANIYA BRUCE M.D. Performed By: #### C BC, CMP #### [address] Automated blood monocyte cou ntOrdered By: Enoch Carnes on 04-23-2023 Monocytes (Bld) [#/Vol] 0.8 10*3/uL Normal 0.0-0.8 [facility] Comment on above: Order Comment: Reaso n for Exam Crohns disease Performed By: #### C BC, CMP #### [address] Automated eosinophil %Ordere d By: Enoch Carnes on 04-23-2023 Eosinophils/100 WBC (Bld) 1.4 % Normal . [facility] Comment on above: Order Comment: Reaso n for Exam Crohns disease Performed By: #### C BC, CMP #### [address] Automated eosinophil countOr dered By: Enoch Carnes on 04-23-2023 Eosinophils (Bld) [#/Vol] 0.1 10*3/uL Normal 0.0-0.45 [facility] Comment on above: Order Comment: Reaso n for Exam Crohns disease Performed By: #### C BC, CMP #### [facility] [address] Automated monocyte %Ordered By: Enoch Carnes on 04-23-2023 Monocytes/100 WBC (Bld) 8.0 % Normal . [facility] Comment on above: Order Comment: Reaso n for Exam Crohns disease Performed By: #### C BC, CMP #### [facility] [address] Automated neutrophil %Ordere d By: Enoch Carnes on 04-23-2023 Neutrophils/100 WBC (Bld) 82.6 % Normal . [facility] Comment on above: Order Comment: Reaso n for Exam Crohns disease Performed By: #### C BC, CMP #### [facility] [address] Bilirubin.total [Mass/volume ] in Serum or PlasmaOrdered By: Enoch Carnse on 04-23-2023 Bilirubin [Mass/Vol] 0.9 mg/dL Normal 0.3-1.0 [facility] Comment on above: Order Comment: Reaso n for Exam Crohns disease Performed By: #### C BC, CMP #### [address] Calcium [Mass/volume] in Ser um or PlasmaOrdered By: Enoch Carnes on 04-23-2023 Calcium [Mass/Vol] 8.7 mg/dL Normal 8.6-10.3 [facility] Comment on above: Order Comment: Reaso n for Exam Crohns disease Performed By: #### C BC, CMP #### [facility] [address] [place] [id number] [place] Carbon dioxide, total [Moles /volume] in Serum or PlasmaOrdered By: Enoch Carnes on 04-23-2023 CO2 [Moles/Vol] 29.7 mmol/L Normal 21.0-31.0 [facility] Comment on above: Order Comment: Reaso n for Exam Crohns disease Performed By: #### C BC, CMP #### [place] [address] [place] Complete Blood Count Auto Di ffon 04-23-2023 Mean Corpuscular HGB Conc 30.3 g/dL Low 32.5-35.6 [facility] Comment on above: Order Comment: Reaso n for Exam Crohns disease Performed By: #### C BC, CMP #### [facility] [address] [place] [id number] [facility] NRBC% 0.1 /100{WBC} Normal 0-0.5 [facility] Comment on above: Order Comment: Reaso n for Exam Crohns disease Performed By: #### C BC, CMP #### [facility] [address] [place] [phone] [facility] Comprehensive Metabolic Pane dianna 04-23-2023 Albumin [Mass/Vol] 3.833625 g/dL Normal 3.5-5.7 g/dL [facility] [employer] Other Bilirubin [Mass/Vol] 0.0785029 mg/dL Normal 0.3- 1.0 mg/dL [employer] Other Calcium [Mass/Vol] 8.8067823 mg/dL Normal 8.6-10 .3 mg/dL [employer] Other CO2 [Moles/Vol] 29.71741497 mmol/L Normal 21.0-3 1.0 mmol/L [employer] Other Creatinine [Mass/Vol] 1.08304795 mg/dL Normal 0. 70-1.30 mg/dL [employer] Other Potassium [Moles/Vol] 3.66415050 mmol/L Low 3 .5-5.1 mmol/L [employer] Other Protein [Mass/Vol] 6.209129 g/dL Low 6.4-8.9 g/dL [employer] Other Comprehensive Metabolic Panel 2.2 g/dL [employer] Other Albumin [Mass/Vol] 3.8 g/dL Normal 3.5-5.7 [facility] Comment on above: Order Comment: Reaso n for Exam Crohns disease Performed By: #### C BC, CMP #### [facility] [address] [place] [address] [place] GFR/1.73 sq M.predicted MDRD (S/P/Bld) [Vol rate/Area] mL/min/{1.73_m2} Normal [employer] Other Comment on above: Order Comment: Reaso n for Exam Crohns disease Performed By: #### C BC, CMP #### [facility] [address] Comprehensive Metabolic Pane lOrdered By: Enoch Carnes on 04-23-2023 Albumin/Globulin [Mass ratio] 1.7 {ratio} Normal [facility] Comment on above: Order Comment: Reaso n for Exam Crohns disease Performed By: #### C BC, CMP #### [address] ALP [Catalytic activity/Vol] 45 U/L Normal 34-104 [facility] Comment on above: Order Comment: Reaso n for Exam Crohns disease Result Comment: PERF ORMED BY: [place] [address] PATHOLOGIST PATTERN KEEPER ANIYA BRUCE M.D. Performed By: #### C BC, CMP #### [address] ALT [Catalytic activity/Vol] 12 U/L Normal 7-52 [facility] Comment on above: Order Comment: Reaso n for Exam Crohns disease Performed By: #### C BC, CMP #### [facility] [address] AST [Catalytic activity/Vol] 11 U/L Low 13-39 [facility] Comment on above: Order Comment: Reaso n for Exam Crohns disease Performed By: #### C BC, CMP #### [address] Chloride [Moles/Vol] 106 mmol/L Normal 98-107 [facility] Comment on above: Order Comment: Reaso n for Exam Crohns disease Performed By: #### C BC, CMP #### [facility] [address] Glucose [Mass/Vol] 140 mg/dL High 70-100 [facility] Comment on above: ADA recommended refe rence rangeRandom Glucose Reference Range is dependent on time and content of last meal. Glucose of more than 200 mg/dL in a nonstressed, ambulatory subject supports the diagnosis of Diabetes Mellitus. Order Comment: Reaso n for Exam Crohns disease Result Comment: [place] Glucose Reference Range is dependent on time and content of last meal. Glucose of more than 200 mg/dL in a nonstressed, ambulatory subject supports the diagnosis of Diabetes Mellitus. ADA recommended reference range Performed By: #### C BC, CMP #### [address] Sodium [Moles/Vol] 141 mmol/L Normal 136-145 [facility] Comment on above: Order Comment: Reaso n for Exam Crohns disease Performed By: #### C BC, CMP #### [address] Urea nitrogen [Mass/Vol] 15 mg/dL Normal 7-25 [facility] Comment on above: Order Comment: Reaso n for Exam Crohns disease Performed By: #### C BC, CMP #### [address] Creatinine [Mass/volume] in Serum or PlasmaOrdered By: Enoch Carnes on 04-23-2023 Creatinine [Mass/Vol] 1.08 mg/dL Normal 0.70-1.[address] [facility] Comment on above: Order Comment: Reaso n for Exam Crohns disease Performed By: #### C BC, CMP #### [place] [address] [place] Erythrocyte distribution wid th [Ratio] by Automated countOrdered By: Enoch Carnes on 04-23-2023 Erythrocyte distribution width (RBC) [Ratio] 19.1 % High 12.0-14.8 [facility] Comment on above: Order Comment: Reaso n for Exam Crohns disease Performed By: #### C BC, CMP #### [address] Erythrocytes [#/volume] in B lood by Automated countOrdered By: Enoch Carnes on 04-23-2023 RBC (Bld) [#/Vol] 3.49 10*6/uL Low 3.90-5.60 [facility] Comment on above: Order Comment: Reaso n for Exam Crohns disease Performed By: #### C BC, CMP #### [address] Hematocrit [Volume Fraction] of Blood by Automated countOrdered By: Enoch Carnes on 04-23-2023 Hematocrit (Bld) [Volume fraction] 25.3 % Low 38.8-50.0 [facility] Comment on above: Order Comment: Reaso n for Exam Crohns disease Performed By: #### C BC, CMP #### [address] Hemoglobin [Mass/volume] in BloodOrdered By: Enoch Carnes on 04-23-2023 Hemoglobin (Bld) [Mass/Vol] 7.7 g/dL Low 13.0-17.0 [facility] Comment on above: Order Comment: Reaso n for Exam Crohns disease Performed By: #### C BC, CMP #### [address] Leukocytes [#/volume] correc miguel for nucleated erythrocytes in Blood by Automated counOrdered By: Enoch Carnes on 04-23-2023 WBC corrected for nucl RBC Auto (Bld) [#/Vol] 9.8 10*3/uL 4.1-10.5 [facility] Leukocytes [#/volume] in Blo od by Automated countOrdered By: Enoch Carnes on 04-23-2023 WBC (Bld) [#/Vol] 9.8 10*3/uL Normal 4.1-10.5 [facility] Comment on above: Order Comment: Reaso n for Exam Crohns disease Performed By: #### C BC, CMP #### [place] [address] [place] Lymphocytes [#/volume] in Bl ood by Automated countOrdered By: Enoch Carnes on 04-23-2023 Lymphocytes (Bld) [#/Vol] 0.7 10*3/uL Low 1.00-4.8 [facility] Comment on above: Order Comment: Reaso n for Exam Crohns disease Performed By: #### C BC, CMP #### [address] Lymphocytes/100 leukocytes i n Blood by Automated countOrdered By: Enoch Carnes on 04-23-2023 Lymphocytes/100 WBC (Bld) 7.2 % Normal . [facility] Comment on above: Order Comment: Reaso n for Exam Crohns disease Performed By: #### C BC, CMP #### [address] MCH [Entitic mass] by Automa miguel countOrdered By: Enoch Carnes on 04-23-2023 MCH (RBC) [Entitic mass] 22.0 pg Low 27.5-35.2 [facility] Comment on above: Order Comment: Reaso n for Exam Crohns disease Performed By: #### C BC, CMP #### [address] MCHC Auto (RBC) [Mass/Vol]Or dered By: Enoch Carnes on 04-23-2023 MCHC (RBC) [Mass/Vol] 30.3 g/dL 32.5-35.[address] [facility] MCV [Entitic volume] by Auto mated countOrdered By: Enoch Carnes on 04-23-2023 MCV (RBC) [Entitic vol] 72.5 fL Low 83.5-101 [facility] Comment on above: Order Comment: Reaso n for Exam Crohns disease Performed By: #### C BC, CMP #### [address] Neutrophils [#/volume] in Bl ood by Automated countOrdered By: Enoch Carnes on 04-23-2023 Neutrophils (Bld) [#/Vol] 8.1 10*3/uL High 1.8-7.7 [facility] Comment on above: Order Comment: Reaso n for Exam Crohns disease Performed By: #### C BC, CMP #### [facility] [address] [place] [address] No Panel InformationOrdered By: Enoch Carnes on 04-23-2023 Estimated GFR (CKD-EPI) > 60.0 mL/Min [facility] Creatinine Clearance (Chem N/A [facility] Nucleated erythrocytes [Pres ence] in Blood by Automated countOrdered By: Enoch Carnes on 04-23-2023 Nucleated RBC Auto Ql (Bld) 0.1 /100{WBC} 0-0.5 [facility] Platelet mean volume [Entiti c volume] in Blood by Automated countOrdered By: Enoch Carnes on 04-23-2023 Platelet mean volume (Bld) [Entitic vol] 7.5 fL Normal 6.6-10.1 [facility] Comment on above: Order Comment: Reaso n for Exam Crohns disease Performed By: #### C BC, CMP #### [address] Platelets [#/volume] in Bloo d by Automated countOrdered By: Enoch Carnes on 04-23-2023 Platelets (Bld) [#/Vol] 359 10*3/uL Normal 150-450 [facility] Comment on above: Order Comment: Reaso n for Exam Crohns disease Performed By: #### C BC, CMP #### [facility] [address] [place] [address] [place] Potassium [Moles/volume] in Serum or PlasmaOrdered By: Enoch Carnes on 04-23-2023 Potassium [Moles/Vol] 3.3 mmol/L Low 3.5-5.[address] [facility] Comment on above: Order Comment: Reaso n for Exam Crohns disease Performed By: #### C BC, CMP #### [place] [address] [place] Protein [Mass/volume] in Ser um or PlasmaOrdered By: Enoch Carnes on 04-23-2023 Protein [Mass/Vol] 6.0 g/dL Low 6.4-8.9 [facility] Comment on above: Order Comment: Reaso n for Exam Crohns disease Performed By: #### C BC, CMP #### [address] Serum globulin measurement b y calculation (mass/volume)Ordered By: Enoch Carnes on 04-23-2023 Globulin (S) [Mass/Vol] 2.2 g/dL Normal [facility] Comment on above: Order Comment: Reaso n for Exam Crohns disease Performed By: #### C BC, CMP #### [address] Serum or plasma anion gap de terminationOrdered By: Enoch Carnes on 04-23-2023 Anion gap [Moles/Vol] 8.6 mmol/L Normal 6.0-15.[address] [facility] Comment on above: Order Comment: Reaso n for Exam Crohns disease Performed By: #### C BC, CMP #### [facility] [address] [place] [address] CBC AUTO DIFFon 11-01-2022 BASO # 0.1 103/ul Normal 0.0-0.1 [facility] Comment on above: Performed By: #### C MREP #### [facility] [address] [place] [address] Dr. Sayda Kapoor Basophils/100 WBC (Bld) 0.7 % Normal 0.2-2.0 [facility] Comment on above: Performed By: #### C MREP #### [facility] [address] [address] [address] Sayda Kapoor EO # 0.1 103/ul Normal 0.0-0.7 [facility] Comment on above: Performed By: #### C MREP #### [facility] [address] [address] [address] Sayda Kapoor Eosinophils/100 WBC (Bld) 1.4 % Normal 0.9-7.0 [facility] Comment on above: Performed By: #### C MREP #### [facility] [address] [address] [address] Sayda Kapoor Erythrocyte distribution width (RBC) [Ratio] 15.9 % Critically high 11.0-15.0 [facility] Comment on above: Performed By: #### C MREP #### [facility] [address] [place] [address] Dr. Sayda Kapoor Hematocrit (Bld) [Volume fraction] 31.5 % Critically low 42.0-54.0 [facility] Comment on above: Performed By: #### C MREP #### [facility] [address] [place] [address] Dr. Sayda Kapoor Hemoglobin (Bld) [Mass/Vol] 9.1 g/dL Critically low 14.0-18.0 [facility] Comment on above: Performed By: #### C MREP #### [facility] [address] [place] [address] Dr. Sayda Kapoor IG # 0.20 10e3/ul Critically high 0.00-0.03 [facility] Comment on above: Performed By: #### C MREP #### [facility] [address] [place] [address] Dr. Sayda Kapoor IG % 2.3 % Critically high 0.0-0.5 [facility] Comment on above: Performed By: #### C MREP #### [facility] [address] [place] [address] Dr. Sayda Kapoor LYMPH # 0.8 103/ul Critically low 1.2-3.8 [facility] Comment on above: Performed By: #### C MREP #### [facility] [address] [place] [address] Dr. Sayda Kapoor Lymphocytes/100 WBC (Bld) 9.4 % Critically low 20.5-60.0 [facility] Comment on above: Performed By: #### C MREP #### [facility] [address] [place] [address] Dr. Sayda Kapoor MANUAL DIFF REQ NO Normal [facility] Comment on above: Performed By: #### C MREP #### [facility] [address] [address] [address] Sayda Kapoor MCH (RBC) [Entitic mass] 22.9 pg Critically low 25.9-34.0 [facility] Comment on above: Performed By: #### C MREP #### [facility] [address] [place] [address] Dr. Sayda Kapoor MCHC (RBC) [Mass/Vol] 28.9 g/dL Critically low 29.9-35.2 [facility] Comment on above: Performed By: #### C MREP #### [facility] [address] [place] [address] Dr. Sayda Kapoor MCV (RBC) [Entitic vol] 79.1 fL Critically low 80.0-94.0 [facility] Comment on above: Performed By: #### C MREP #### [facility] [address] [place] [address] Dr. Sayda Kapoor MONO # 0.6 103/ul Normal 0.3-0.8 [facility] Comment on above: Performed By: #### C MREP #### [facility] [address] [place] [address] Dr. Sayda Kapoor Monocytes/100 WBC (Bld) 7.2 % Normal 1.7-12.0 [facility] Comment on above: Performed By: #### C MREP #### [facility] [address] [place] [address] Dr. Sayda Kapoor NEUT # 6.9 103/ul Critically high 1.4-6.5 [facility] Comment on above: Performed By: #### C MREP #### [facility] [address] [place] [address] Dr. Sayda Kapoor Neutrophils/100 WBC (Bld) 79.0 % Critically high 43.0-75.0 [facility] Comment on above: Performed By: #### C MREP #### [facility] [address] [place] [address] Dr. Sayda Kapoor Platelet mean volume (Bld) [Entitic vol] 9.1 fL Critically low 9.5-13.5 [facility] Comment on above: Performed By: #### C MREP #### [facility] [address] [address] [address] Sayda Kapoor PLT 416 103/ul Normal 150-450 [facility] Comment on above: Performed By: #### C MREP #### [facility] [address] [address] [address] Sayda Kapoor RBC 3.98 106/ul Critically low 4.70-6.10 [facility] Comment on above: Performed By: #### C MREP #### [facility] [address] [address] [address] Sayda Kapoor WBC 8.8 103/ul Normal 4.0-11.0 [facility] Comment on above: Performed By: #### C MREP #### [facility] [address] [place] [address] Dr. Sayda Kapoor PROF CHEM 8 (BAS METB)on Anion gap [Moles/Vol] 9.0 mmol/L Normal [facility] Comment on above: Performed By: #### B RAMP LEAD, CMP, LIPA, TONI #### [facility] [address] [place] [address] Dr. Sayda Kapoor Calcium [Mass/Vol] 8.2 mg/dL Critically low 8.5-10.1 [facility] Comment on above: Performed By: #### B RAMP LEAD, CMP, LIPA, TONI #### [facility] [address] [place] [address] Dr. Sayda Kapoor Chloride [Moles/Vol] 104 mmol/L Normal 98-107 [facility] Comment on above: Performed By: #### B RAMP LEAD, CMP, LIPA, TONI #### [facility] [address] [address] [address] Sayda Kapoor CO2 [Moles/Vol] 32.5 mmol/L Critically high 21.0-32.0 [facility] Comment on above: Performed By: #### B RAMP LEAD, CMP, LIPA, TONI #### [facility] [address] [place] [address] Dr. Sayda Kapoor Creatinine [Mass/Vol] 0.93 mg/dL Normal 0.70-1.30 [facility] Comment on above: Performed By: #### B RAMP LEAD, CMP, LIPA, TONI #### [facility] [address] [place] [address] Dr. Sayda Kapoor EGFR-AF KENYAN >60 Normal >=60 [facility] Comment on above: Performed By: #### B RAMP LEAD, CMP, LIPA, TONI #### [facility] [address] [place] [address] Dr. Sayda Kapoor EGFR-NON AF KENYAN >60 Normal >=60 [facility] Comment on above: Performed By: #### B RAMP LEAD, CMP, LIPA, TONI #### [facility] [address] [place] [address] Dr. Sayda Kapoor Glucose [Mass/Vol] 145 mg/dL Critically high 74-106 [facility] Comment on above: Performed By: #### B RAMP LEAD, CMP, LIPA, TONI #### [facility] [address] [place] [address] Dr. Sayda Kapoor Potassium [Moles/Vol] 3.5 mmol/L Normal 3.5-5.1 [facility] Comment on above: Performed By: #### B RAMP LEAD, CMP, LIPA, TONI #### [facility] [address] [place] [address] Dr. Sayda Kapoor Sodium [Moles/Vol] 142 mmol/L Normal 136-145 [facility] Comment on above: Performed By: #### B RAMP LEAD, CMP, LIPA, TONI #### [facility] [address] [place] [address] Dr. Sayda Kapoor Urea nitrogen [Mass/Vol] 20.0 mg/dL Critically high 7.0-18.0 [facility] Comment on above: Performed By: #### B RAMP LEAD, CMP, LIPA, TONI #### [facility] [address] [place] [address] Dr. Sayda Kapoor Urea nitrogen/Creatinine [Mass ratio] 21.5 mg/mg Normal [facility] Comment on above: Performed By: #### B RAMP LEAD, CMP, LIPA, TONI #### [facility] [address] [place] [address] Dr. Sayda Kapoor BNPon 10-23-2022 Natriuretic peptide B (Bld) [Mass/Vol] 2297.0 pg/mL Critically high <=900.0 [facility] Comment on above: Performed By: #### C MREP #### [facility] [address] [place] [address] Dr. Sayda Kapoor CBC AUTO DIFFon 10-23-2022 BASO # 0.1 103/ul Normal 0.0-0.1 [facility] Comment on above: Performed By: #### D IG #### [facility] [address] [place] [address] Dr. Sayda Kapoor Basophils/100 WBC (Bld) 0.7 % Normal 0.2-2.0 [facility] Comment on above: Performed By: #### D IG #### [facility] [address] [place] [address] Dr. Sayda Kapoor EO # 0.1 103/ul Normal 0.0-0.7 [facility] Comment on above: Performed By: #### D IG #### [facility] [address] [place] [address] Dr. Sayda Kapoor Eosinophils/100 WBC (Bld) 1.9 % Normal 0.9-7.0 [facility] Comment on above: Performed By: #### D IG #### [facility] [address] [place] [address] Dr. Sayda Kapoor Erythrocyte distribution width (RBC) [Ratio] 15.6 % Critically high 11.0-15.0 [facility] Comment on above: Performed By: #### D IG #### [facility] [address] [place] [address] Dr. Sayda Kapoor Hematocrit (Bld) [Volume fraction] 29.1 % Critically low 42.0-54.0 [facility] Comment on above: Performed By: #### D IG #### [facility] [address] [place] [address] Dr. Sayda Kapoor Hemoglobin (Bld) [Mass/Vol] 8.4 g/dL Critically low 14.0-18.0 [facility] Comment on above: Performed By: #### D IG #### [facility] [address] [place] [address] Dr. Sayda Kapoor IG # 0.06 10e3/ul Critically high 0.00-0.03 [facility] Comment on above: Performed By: #### D IG #### [facility] [address] [place] [address] Dr. Sayda Kapoor IG % 0.8 % Critically high 0.0-0.5 [facility] Comment on above: Performed By: #### D IG #### [facility] [address] [place] [address] Dr. Sayda Kapoor LYMPH # 1.1 103/ul Critically low 1.2-3.8 [facility] Comment on above: Performed By: #### D IG #### [facility] [address] [place] [address] Dr. Sayda Kapoor Lymphocytes/100 WBC (Bld) 14.8 % Critically low 20.5-60.0 [facility] Comment on above: Performed By: #### D IG #### [facility] [address] [place] [address] Dr. Sayda Kapoor MANUAL DIFF REQ NO Normal [facility] Comment on above: Performed By: #### D IG #### [facility] [address] [address] [address] Sayda Kapoor MCH (RBC) [Entitic mass] 23.3 pg Critically low 25.9-34.0 [facility] Comment on above: Performed By: #### D IG #### [facility] [address] [address] [address] Sayda Kapoor MCHC (RBC) [Mass/Vol] 28.9 g/dL Critically low 29.9-35.2 [facility] Comment on above: Performed By: #### D IG #### [facility] [address] [place] [address] Dr. Sayda Kapoor MCV (RBC) [Entitic vol] 80.6 fL Normal 80.0-94.0 [facility] Comment on above: Performed By: #### D IG #### [facility] [address] [address] [address] Sayda Kapoor MONO # 0.7 103/ul Normal 0.3-0.8 [facility] Comment on above: Performed By: #### D IG #### [facility] [address] [address] [address] Sayda Kapoor Monocytes/100 WBC (Bld) 8.7 % Normal 1.7-12.0 [facility] Comment on above: Performed By: #### D IG #### [facility] [address] [place] [address] Dr. Sayda Kapoor NEUT # 5.5 103/ul Normal 1.4-6.5 [facility] Comment on above: Performed By: #### D IG #### [facility] [address] [place] [address] Dr. Sayda Kapoor Neutrophils/100 WBC (Bld) 73.1 % Normal 43.0-75.0 [facility] Comment on above: Performed By: #### D IG #### [facility] [address] [place] [address] Dr. Sayda Kapoor Platelet mean volume (Bld) [Entitic vol] 9.5 fL Normal 9.5-13.5 [facility] Comment on above: Performed By: #### D IG #### [facility] [address] [place] [address] Dr. Sayda Kapoor PLT 281 103/ul Normal 150-450 [facility] Comment on above: Performed By: #### D IG #### [facility] [address] [place] [address] Dr. Sayda Kapoor RBC 3.61 106/ul Critically low 4.70-6.10 [facility] Comment on above: Performed By: #### D IG #### [facility] [address] [address] [address] Sayda Kapoor WBC 7.6 103/ul Normal 4.0-11.0 [facility] Comment on above: Performed By: #### D IG #### [facility] [address] [place] [address] Dr. Sayda Kapoor DIGOXINon 10-23-2022 DIG 0.9 ng/mL Normal 0.9-2.0 [facility] Comment on above: Performed By: #### D IG #### [facility] [address] [place] [address] Dr. Sayda Kapoor PROF 14(COMP METB)on 023 Albumin [Mass/Vol] 2.4 g/dL Critically low 3.4-5.0 [facility] Comment on above: Performed By: #### C MREP #### [facility] [address] [place] [address] Dr. Sayda Kapoor Albumin/Globulin [Mass ratio] 0.9 {ratio} Normal [facility] Comment on above: Performed By: #### C MREP #### [facility] [address] [place] [address] Dr. Sayda Kapoor ALP [Catalytic activity/Vol] 62 U/L Normal 46-116 [facility] Comment on above: Performed By: #### C MREP #### [facility] [address] [place] [address] Dr. Sayda Kapoor ALT [Catalytic activity/Vol] 33 U/L Normal 16-63 [facility] Comment on above: Performed By: #### C MREP #### [facility] [address] [place] [address] Dr. Sayda Kapoor Anion gap [Moles/Vol] 8.2 mmol/L Normal [facility] Comment on above: Performed By: #### C MREP #### [facility] [address] [place] [address] Dr. Sayda Kapoor AST [Catalytic activity/Vol] 15 U/L Normal 15-37 [facility] Comment on above: Performed By: #### C MREP #### [facility] [address] [place] [address] Dr. Sayda Kapoor Bilirubin [Mass/Vol] 1.3 mg/dL Critically high 0.2-1.0 [facility] Comment on above: Performed By: #### C MREP #### [facility] [address] [address] [address] Sayda Kapoor Calcium [Mass/Vol] 7.6 mg/dL Critically low 8.5-10.1 [facility] Comment on above: Performed By: #### C MREP #### [facility] [address] [address] [address] Sayda Kapoor Chloride [Moles/Vol] 105 mmol/L Normal 98-107 [facility] Comment on above: Performed By: #### C MREP #### [facility] [address] [address] [address] Sayda Kapoor CO2 [Moles/Vol] 30.2 mmol/L Normal 21.0-32.0 [facility] Comment on above: Performed By: #### C MREP #### [facility] [address] [place] [address] Dr. Sayda Kapoor Creatinine [Mass/Vol] 1.07 mg/dL Normal 0.70-1.30 [facility] Comment on above: Performed By: #### C MREP #### [facility] [address] [place] [address] Dr. Sayda Kapoor EGFR-AF KENYAN >60 Normal >=60 [facility] Comment on above: Performed By: #### C MREP #### [facility] [address] [place] [address] Dr. Sayda Kapoor EGFR-NON AF KENYAN >60 Normal >=60 [facility] Comment on above: Performed By: #### C MREP #### [facility] [address] [address] [address] Sayda Kapoor Globulin (S) [Mass/Vol] 2.7 g/dL Normal [facility] Comment on above: Performed By: #### C MREP #### [facility] [address] [address] [address] Sayda Kapoor Glucose [Mass/Vol] 101 mg/dL Normal 74-106 [facility] Comment on above: Performed By: #### C MREP #### [facility] [address] [address] [address] Sayda Kapoor Potassium [Moles/Vol] 3.4 mmol/L Critically low 3.5-5.1 [facility] Comment on above: Performed By: #### C MREP #### [facility] [address] [place] [address] Dr. Sayda Kapoor Protein [Mass/Vol] 5.1 g/dL Critically low 6.4-8.2 [facility] Comment on above: Performed By: #### C MREP #### [facility] [address] [address] [address] Sayda Kapoor Sodium [Moles/Vol] 140 mmol/L Normal 136-145 [facility] Comment on above: Performed By: #### C MREP #### [facility] [address] [place] [address] Dr. Sayda Kapoor Urea nitrogen [Mass/Vol] 20.0 mg/dL Critically high 7.0-18.0 [facility] Comment on above: Performed By: #### C MREP #### [facility] [address] [place] [address] Dr. Sayda Kapoor Urea nitrogen/Creatinine [Mass ratio] 18.7 mg/mg Normal [facility] Comment on above: Performed By: #### C MREP #### [facility] [address] [place] [address] Dr. Sayda Kapoor T3, TOTAL (TRIIODOTHYRONINE) on 10-23-2022 T3, TOTAL 93 ng/dL Normal 71-180 [facility] Comment on above: Performed By: #### B RAMP LEAD, CMP, LIPA, TONI #### [facility] [address] [place] [address] Dr. Sayda Kapoor BNPon 10-22-2022 Natriuretic peptide B (Bld) [Mass/Vol] 2419.0 pg/mL Critically high <=900.0 [facility] Comment on above: Performed By: #### B RAMP LEAD, CMP, LIPA, TONI #### [facility] [address] [place] [address] Dr. Sayda Kapoor CARDIAC BETTE 3-6on 3 CK [Catalytic activity/Vol] 88 U/L Normal 39-308 [facility] Comment on above: Performed By: #### Q NTTB #### [facility] [address] [place] [address] Dr. Sayda Kapoor CK.MB [Mass/Vol] 1.44 ng/mL Normal <=3.60 [facility] Comment on above: Performed By: #### Q NTTB #### [facility] [address] [place] [address] Dr. Sayda Kapoor HSTROP 15.1 pg/mL Normal 4.0-76.1 [facility] Comment on above: Result Comment: CUT- OFF POINTS HAVE BEEN ESTABLISHED BASED ON THE FOURTH UNIVERSAL DEFINITIONS OF MYOCARDIAL INFARCTION. THE UPPER REFERENCE LIMIT (URL) OF TROPONIN, DEFINED THE 99TH PERCENTILE OF cTnI DISTRIBUTION IN A REFERENCE POPULATION, HAS BEEN CONFIRMED THE DECISION THRESHOLD FOR TX DIAGNOSIS. Performed By: #### Q NTTB #### [facility] [address] [place] [address] Dr. Sayda Kapoor CBC AUTO DIFFon 10-22-2022 BASO # 0.1 103/ul Normal 0.0-0.1 [facility] Comment on above: Performed By: #### C BC #### [facility] [address] [place] [address] Dr. Sayda Kapoor Basophils/100 WBC (Bld) 0.5 % Normal 0.2-2.0 [facility] Comment on above: Performed By: #### C BC #### [facility] [address] [place] [address] Dr. Sayda Kapoor EO # 0.2 103/ul Normal 0.0-0.7 [facility] Comment on above: Performed By: #### C BC #### [facility] [address] [place] [address] Dr. Sayda Kapoor Eosinophils/100 WBC (Bld) 1.8 % Normal 0.9-7.0 [facility] Comment on above: Performed By: #### C BC #### [facility] [address] [place] [address] Dr. Sayda Kapoor Erythrocyte distribution width (RBC) [Ratio] 15.7 % Critically high 11.0-15.0 [facility] Comment on above: Performed By: #### C BC #### [facility] [address] [place] [address] Dr. Sayda Kapoor Hematocrit (Bld) [Volume fraction] 27.0 % Critically low 42.0-54.0 [facility] Comment on above: Performed By: #### C BC #### [facility] [address] [place] [address] Dr. Sayda Kapoor Hemoglobin (Bld) [Mass/Vol] 7.9 g/dL Critically low 14.0-18.0 [facility] Comment on above: Performed By: #### C BC #### [facility] [address] [place] [address] Dr. Sayda Kapoor IG # 0.06 10e3/ul Critically high 0.00-0.03 [facility] Comment on above: Performed By: #### C BC #### [facility] [address] [place] [address] Dr. Sayda Kapoor IG % 0.6 % Critically high 0.0-0.5 [facility] Comment on above: Performed By: #### C BC #### [facility] [address] [place] [address] Dr. Sayda Kapoor LYMPH # 1.2 103/ul Normal 1.2-3.8 [facility] Comment on above: Performed By: #### C BC #### [facility] [address] [place] [address] Dr. Sayda Kapoor Lymphocytes/100 WBC (Bld) 13.0 % Critically low 20.5-60.0 [facility] Comment on above: Performed By: #### C BC #### [facility] [address] [place] [address] Dr. Sayda Kapoor MANUAL DIFF REQ NO Normal [facility] Comment on above: Performed By: #### C BC #### [facility] [address] [place] [address] Dr. Sayda Kapoor MCH (RBC) [Entitic mass] 23.1 pg Critically low 25.9-34.0 [facility] Comment on above: Performed By: #### C BC #### [facility] [address] [place] [address] Dr. Sayda Kapoor MCHC (RBC) [Mass/Vol] 29.3 g/dL Critically low 29.9-35.2 [facility] Comment on above: Performed By: #### C BC #### [facility] [address] [place] [address] Dr. Sayda Kapoor MCV (RBC) [Entitic vol] 78.9 fL Critically low 80.0-94.0 [facility] Comment on above: Performed By: #### C BC #### [facility] [address] [place] [address] Dr. Sayda Kapoor MONO # 0.8 103/ul Normal 0.3-0.8 [facility] Comment on above: Performed By: #### C BC #### [facility] [address] [place] [address] Dr. Sayda Kapoor Monocytes/100 WBC (Bld) 8.0 % Normal 1.7-12.0 [facility] Comment on above: Performed By: #### C BC #### [facility] [address] [place] [address] Dr. Sayda Kapoor NEUT # 7.2 103/ul Critically high 1.4-6.5 [facility] Comment on above: Performed By: #### C BC #### [facility] [address] [place] [address] Dr. Sayda Kapoor Neutrophils/100 WBC (Bld) 76.1 % Critically high 43.0-75.0 [facility] Comment on above: Performed By: #### C BC #### [facility] [address] [place] [address] Dr. Sayda Kapoor Platelet mean volume (Bld) [Entitic vol] 9.9 fL Normal 9.5-13.5 [facility] Comment on above: Performed By: #### C BC #### [facility] [address] [place] [address] Dr. Sayda Kapoor PLT 320 103/ul Normal 150-450 [facility] Comment on above: Performed By: #### C BC #### [facility] [address] [place] [address] Dr. Sayda Kapoor RBC 3.42 106/ul Critically low 4.70-6.10 [facility] Comment on above: Performed By: #### C BC #### [facility] [address] [place] [address] Dr. Sayda Kapoor WBC 9.4 103/ul Normal 4.0-11.0 [facility] Comment on above: Performed By: #### C BC #### [facility] [address] [place] [address] Dr. Sayda Kapoor BASO # 0.0 103/ul Normal 0.0-0.1 [facility] Comment on above: Performed By: #### D IG #### [facility] [address] [place] [address] Dr. Sayda Kapoor Basophils/100 WBC (Bld) 0.4 % Normal 0.2-2.0 [facility] Comment on above: Performed By: #### D IG #### [facility] [address] [place] [address] Dr. Sayda Kapoor EO # 0.1 103/ul Normal 0.0-0.7 [facility] Comment on above: Performed By: #### D IG #### [facility] [address] [place] [address] Dr. Sayda Kapoor Eosinophils/100 WBC (Bld) 1.0 % Normal 0.9-7.0 [facility] Comment on above: Performed By: #### D IG #### [facility] [address] [place] [address] Dr. Sayda Kapoor Erythrocyte distribution width (RBC) [Ratio] 15.8 % Critically high 11.0-15.0 [facility] Comment on above: Performed By: #### D IG #### [facility] [address] [place] [address] Dr. Sayda Kapoor Hematocrit (Bld) [Volume fraction] 28.0 % Critically low 42.0-54.0 [facility] Comment on above: Performed By: #### D IG #### [facility] [address] [place] [address] Dr. Sayda Kapoor Hemoglobin (Bld) [Mass/Vol] 8.0 g/dL Critically low 14.0-18.0 [facility] Comment on above: Performed By: #### D IG #### [facility] [address] [place] [address] Dr. Sayda Kapoor IG # 0.03 10e3/ul Normal 0.00-0.03 [facility] Comment on above: Performed By: #### D IG #### [facility] [address] [place] [address] Dr. Sayda Kapoor IG % 0.4 % Normal 0.0-0.5 [facility] Comment on above: Performed By: #### D IG #### [facility] [address] [place] [address] Dr. Sayda Kapoor LYMPH # 1.2 103/ul Normal 1.2-3.8 [facility] Comment on above: Performed By: #### D IG #### [facility] [address] [place] [address] Dr. Sayda Kapoor Lymphocytes/100 WBC (Bld) 14.3 % Critically low 20.5-60.0 [facility] Comment on above: Performed By: #### D IG #### [facility] [address] [place] [address] Dr. Sayda Kapoor MANUAL DIFF REQ NO Normal [facility] Comment on above: Performed By: #### D IG #### [facility] [address] [place] [address] Dr. Sayda Kapoor MCH (RBC) [Entitic mass] 23.3 pg Critically low 25.9-34.0 [facility] Comment on above: Performed By: #### D IG #### [facility] [address] [place] [address] Dr. Sayda Kapoor MCHC (RBC) [Mass/Vol] 28.6 g/dL Critically low 29.9-35.2 [facility] Comment on above: Performed By: #### D IG #### [facility] [address] [address] [address] Sayda Kapoor MCV (RBC) [Entitic vol] 81.4 fL Normal 80.0-94.0 [facility] Comment on above: Performed By: #### D IG #### [facility] [address] [address] [address] Sayda Kapoor MONO # 0.6 103/ul Normal 0.3-0.8 [facility] Comment on above: Performed By: #### D IG #### [facility] [address] [address] [address] Sayda Kapoor Monocytes/100 WBC (Bld) 7.1 % Normal 1.7-12.0 [facility] Comment on above: Performed By: #### D IG #### [facility] [address] [address] [address] Sayda Kapoor NEUT # 6.2 103/ul Normal 1.4-6.5 [facility] Comment on above: Performed By: #### D IG #### [facility] [address] [address] [address] Sayda Kapoor Neutrophils/100 WBC (Bld) 76.8 % Critically high 43.0-75.0 [facility] Comment on above: Performed By: #### D IG #### [facility] [address] [address] [address] Sayda Kapoor Platelet mean volume (Bld) [Entitic vol] 9.5 fL Normal 9.5-13.5 [facility] Comment on above: Performed By: #### D IG #### [facility] [address] [address] [address] Sayda Kapoor PLT 252 103/ul Normal 150-450 [facility] Comment on above: Performed By: #### D IG #### [facility] [address] [address] [address] Sayda Kapoor RBC 3.44 106/ul Critically low 4.70-6.10 [facility] Comment on above: Performed By: #### D IG #### [facility] [address] [address] [address] Sayda Kapoor WBC 8.1 103/ul Normal 4.0-11.0 [facility] Comment on above: Performed By: #### D IG #### [facility] [address] [address] [address] Sayda Kapoor CTA CHEST WO W [...] CL POTTS Date: 2022-10-22 09:30 Normal [facility] CULTURE URINEon 10-22-2022 CULTURE URINE Culture Observations : NO GROWTH. Normal [facility] Comment on above: Performed By: #### D IG #### [facility] [address] [address] [address] Sayda Kapoor DIGOXINon 10-22-2022 DIG 1.4 ng/mL Normal 0.9-2.0 [facility] Comment on above: Performed By: #### B RAMP LEAD, CMP, LIPA, TONI #### [facility] [address] [address] [address] Sayda Kapoor ECHOCARDIO M/2D COMPLETEon 0 10-22-2022 ECHOCARDIO M/2D COMPLETE Patient: AYO ALICIA Exam Date: 10/22/2022 : 1960 Gender:M Ordering : DR PERICO MCCABE . Admission #: [id number] Family : DR GLORIA PAGAN M.D. Order #: [id number] CLICK HERE TO VIEW EXAM ECHOCARDIOGRAM REPORT [...] Whitney M.D. on 10/22/2022 at 16:41 [facility] PROF 14(COMP METB)on 023 Albumin [Mass/Vol] 2.6 g/dL Critically low 3.4-5.0 [facility] Comment on above: Performed By: #### B RAMP LEAD, CMP, LIPA, TONI #### [facility] [address] [place] [address] Dr. Sayda Kapoor Albumin/Globulin [Mass ratio] 1.0 {ratio} Normal [facility] Comment on above: Performed By: #### B RAMP LEAD, CMP, LIPA, TONI #### [facility] [address] [place] [address] Dr. Sayda Kapoor ALP [Catalytic activity/Vol] 61 U/L Normal 46-116 [facility] Comment on above: Performed By: #### B RAMP LEAD, CMP, LIPA, TONI #### [facility] [address] [place] [address] Dr. Sayda Kapoor ALT [Catalytic activity/Vol] 37 U/L Normal 16-63 [facility] Comment on above: Performed By: #### B RAMP LEAD, CMP, LIPA, TONI #### [facility] [address] [place] [address] Dr. Sayda Kapoor Anion gap [Moles/Vol] 11.4 mmol/L Normal [facility] Comment on above: Performed By: #### B RAMP LEAD, CMP, LIPA, TOIN #### [facility] [address] [place] [address] Dr. Sayda Kapoor AST [Catalytic activity/Vol] 20 U/L Normal 15-37 [facility] Comment on above: Performed By: #### B RAMP LEAD, CMP, LIPA, TONI #### [facility] [address] [place] [address] Dr. Sayda Kapoor Bilirubin [Mass/Vol] 1.4 mg/dL Critically high 0.2-1.0 [facility] Comment on above: Performed By: #### B RAMP LEAD, CMP, LIPA, TONI #### [facility] [address] [place] [address] Dr. Sayda Kapoor Calcium [Mass/Vol] 8.1 mg/dL Critically low 8.5-10.1 [facility] Comment on above: Performed By: #### B RAMP LEAD, CMP, LIPA, TONI #### [facility] [address] [address] [address] Sayda Kapoor Chloride [Moles/Vol] 104 mmol/L Normal 98-107 [facility] Comment on above: Performed By: #### B RAMP LEAD, CMP, LIPA, TONI #### [facility] [address] [address] [address] Sayda Kapoor CO2 [Moles/Vol] 27.6 mmol/L Normal 21.0-32.0 [facility] Comment on above: Performed By: #### B RAMP LEAD, CMP, LIPA, TONI #### [facility] [address] [place] [address] Dr. Sayda Kapoor Creatinine [Mass/Vol] 1.07 mg/dL Normal 0.70-1.30 [facility] Comment on above: Performed By: #### B RAMP LEAD, CMP, LIPA, TONI #### [facility] [address] [place] [address] Dr. Sayda Kapoor EGFR-AF KENYAN >60 Normal >=60 [facility] Comment on above: Performed By: #### B RAMP LEAD, CMP, LIPA, TONI #### [facility] [address] [place] [address] Dr. Sayda Kapoor EGFR-NON AF KENYAN >60 Normal >=60 [facility] Comment on above: Performed By: #### B RAMP LEAD, CMP, LIPA, TONI #### [facility] [address] [place] [address] Dr. Sayda Kapoor Globulin (S) [Mass/Vol] 2.5 g/dL Normal [facility] Comment on above: Performed By: #### B RAMP LEAD, CMP, LIPA, TONI #### [facility] [address] [place] [address] Dr. Sayda Kapoor Glucose [Mass/Vol] 96 mg/dL Normal 74-106 [facility] Comment on above: Performed By: #### B RAMP LEAD, CMP, LIPA, TONI #### [facility] [address] [place] [address] Dr. Sayda Kapoor Potassium [Moles/Vol] 4.0 mmol/L Normal 3.5-5.1 [facility] Comment on above: Performed By: #### B RAMP LEAD, CMP, LIPA, TONI #### [facility] [address] [place] [address] Dr. Sayda Kapoor Protein [Mass/Vol] 5.1 g/dL Critically low 6.4-8.2 [facility] Comment on above: Performed By: #### B RAMP LEAD, CMP, LIPA, TONI #### [facility] [address] [place] [address] Dr. Sayda Kapoor Sodium [Moles/Vol] 139 mmol/L Normal 136-145 [facility] Comment on above: Performed By: #### B RAMP LEAD, CMP, LIPA, TONI #### [facility] [address] [place] [address] Dr. Sayda Kapoor Urea nitrogen [Mass/Vol] 25.0 mg/dL Critically high 7.0-18.0 [facility] Comment on above: Performed By: #### B RAMP LEAD, CMP, LIPA, TONI #### [facility] [address] [place] [address] Dr. Sayda Kapoor Urea nitrogen/Creatinine [Mass ratio] 23.4 mg/mg Normal [facility] Comment on above: Performed By: #### B RAMP LEAD, CMP, LIPA, TONI #### [facility] [address] [place] [address] Dr. Sayda Kapoor UA RANDOM W/MICROSCOPICon BACTERIA NONE SEEN Normal NONE SEEN [facility] Comment on above: Performed By: #### D IG #### [facility] [address] [place] [address] Dr. Sayda Kapoor Bilirubin Ql (U) Negative Normal NEGATIVE [facility] Comment on above: Performed By: #### D IG #### [facility] [address] [place] [address] Dr. Sayda Kapoor CAST NONE SEEN Normal NONE SEEN [facility] Comment on above: Performed By: #### D IG #### [facility] [address] [place] [address] Dr. Sayda Kapoor Clarity (U) CLEAR Normal CLEAR [facility] Comment on above: Performed By: #### D IG #### [facility] [address] [place] [address] Dr. Sayda Kapoor Color (U) YELLOW Normal YELLOW [facility] Comment on above: Performed By: #### D IG #### [facility] [address] [place] [address] Dr. Sayda Kapoor Crystals LM Nom (Urine sed) NONE SEEN Normal NONE SEEN [facility] Comment on above: Performed By: #### D IG #### [facility] [address] [place] [address] Dr. Sayda Kapoor Epithelial cells LM Ql (Urine sed) NONE SEEN Normal NONE SEEN /RARE [facility] Comment on above: Performed By: #### D IG #### [facility] [address] [place] [address] Dr. Sayda Kapoor Glucose Ql (U) Negative Normal NEGATIVE [facility] Comment on above: Performed By: #### D IG #### [facility] [address] [place] [address] Dr. Sayda Kapoor Hemoglobin Ql (U) TRACE-INTACT Abnormal NEGATIVE [facility] Comment on above: Performed By: #### D IG #### [facility] [address] [place] [address] Dr. Sayda Kapoor Ketones Ql (U) Negative Normal NEGATIVE [facility] Comment on above: Performed By: #### D IG #### [facility] [address] [place] [address] Dr. Sayda Kapoor LEUKOCYTES Negative Normal NEGATIVE [facility] Comment on above: Performed By: #### D IG #### [facility] [address] [place] [address] Dr. Sayda Kapoor MUCOUS TRACE Abnormal NONE SEEN [facility] Comment on above: Performed By: #### D IG #### [facility] [address] [place] [address] Dr. Sayda Kapoor Nitrite Ql (U) Negative Normal NEGATIVE [facility] Comment on above: Performed By: #### D IG #### [facility] [address] [place] [address] Dr. Sayda Kapoor pH (U) 6.0 [pH] Normal 5-9 [facility] Comment on above: Performed By: #### D IG #### [facility] [address] [place] [address] Dr. Sayda Kapoor RBC 0-2 Normal 0-2 [facility] Comment on above: Performed By: #### D IG #### [facility] [address] [place] [address] Dr. Sayda Kapoor SPEC GRAVITY 1.020 Normal 1.005-<=1.0 25 [facility] Comment on above: Performed By: #### D IG #### [facility] [address] [place] [address] Dr. Sayda Kapoor UA PROTEIN 30 mg/dl Abnormal NEGATIVE/ TRACE [facility] Comment on above: Performed By: #### D IG #### [facility] [address] [place] [address] Dr. Sayda Kapoor Urobilinogen Qn (U) 1.0 {Rosi'U}/dL Normal 0.2 - 1. 0 [facility] Comment on above: Performed By: #### D IG #### [facility] [address] [place] [address] Dr. Sayda Kapoor WBC NONE SEEN Normal NONE SEEN [facility] Comment on above: Performed By: #### D IG #### [facility] [address] [place] [address] Dr. Sayda Kapoor BNPon 10-21-2022 Natriuretic peptide B (Bld) [Mass/Vol] 4504.0 pg/mL Critically high <=900.0 [facility] Comment on above: Performed By: #### Q NTTB #### [facility] [address] [place] [address] Dr. Sayda Kapoor CARDIAC BETTE 3-6on 3 CK [Catalytic activity/Vol] 111 U/L Normal 39-308 [facility] Comment on above: Performed By: #### C MREP #### [facility] [address] [address] [address] Sayda Kapoor CK.MB [Mass/Vol] 1.72 ng/mL Normal <=3.60 [facility] Comment on above: Performed By: #### C MREP #### [facility] [address] [address] [address] Sayda Kapoor HSTROP 15.2 pg/mL Normal 4.0-76.1 [facility] Comment on above: Result Comment: CUT- OFF POINTS HAVE BEEN ESTABLISHED BASED ON THE FOURTH UNIVERSAL DEFINITIONS OF MYOCARDIAL INFARCTION. THE UPPER REFERENCE LIMIT (URL) OF TROPONIN, DEFINED THE 99TH PERCENTILE OF cTnI DISTRIBUTION IN A REFERENCE POPULATION, HAS BEEN CONFIRMED THE DECISION THRESHOLD FOR TX DIAGNOSIS. Performed By: #### C MREP #### [facility] [address] [place] [address] Dr. Sayda Kapoor CARDIAC BETTE ADMITon 023 CK [Catalytic activity/Vol] 114 U/L Normal 39-308 [facility] Comment on above: Performed By: #### Q NTTB #### [facility] [address] [place] [address] Dr. Sayda Kapoor CK.MB [Mass/Vol] 1.94 ng/mL Normal <=3.60 [facility] Comment on above: Performed By: #### Q NTTB #### [facility] [address] [place] [address] Dr. Sayda Kapoor HSTROP 17.4 pg/mL Normal 4.0-76.1 [facility] Comment on above: Result Comment: CUT- OFF POINTS HAVE BEEN ESTABLISHED BASED ON THE FOURTH UNIVERSAL DEFINITIONS OF MYOCARDIAL INFARCTION. THE UPPER REFERENCE LIMIT (URL) OF TROPONIN, DEFINED THE 99TH PERCENTILE OF cTnI DISTRIBUTION IN A REFERENCE POPULATION, HAS BEEN CONFIRMED THE DECISION THRESHOLD FOR TX DIAGNOSIS. Performed By: #### Q NTTB #### [facility] [address] [place] [address] Dr. Sayda Kapoor TAIWO 105 ng/mL Critically high 16-96 [facility] Comment on above: Performed By: #### Q NTTB #### [facility] [address] [place] [address] Dr. Sayda Kapoor CBC AUTO DIFFon 10-21-2022 BASO # 0.0 103/ul Normal 0.0-0.1 [facility] Comment on above: Performed By: #### C MREP #### [facility] [address] [place] [address] Dr. Sayda Kapoor Basophils/100 WBC (Bld) 0.3 % Normal 0.2-2.0 [facility] Comment on above: Performed By: #### C MREP #### [facility] [address] [place] [address] Dr. Sayda Kapoor EO # 0.0 103/ul Normal 0.0-0.7 [facility] Comment on above: Performed By: #### C MREP #### [facility] [address] [place] [address] Dr. Sayda Kapoor Eosinophils/100 WBC (Bld) 0.1 % Critically low 0.9-7.0 [facility] Comment on above: Performed By: #### C MREP #### [facility] [address] [place] [address] Dr. Sayda Kapoor Erythrocyte distribution width (RBC) [Ratio] 15.6 % Critically high 11.0-15.0 [facility] Comment on above: Performed By: #### C MREP #### [facility] [address] [place] [address] Dr. Sayda Kapoor Hematocrit (Bld) [Volume fraction] 29.7 % Critically low 42.0-54.0 [facility] Comment on above: Performed By: #### C MREP #### [facility] [address] [place] [address] Dr. Sayda Kapoor Hemoglobin (Bld) [Mass/Vol] 8.7 g/dL Critically low 14.0-18.0 [facility] Comment on above: Performed By: #### C MREP #### [facility] [address] [place] [address] Dr. Sayda Kapoor IG # 0.06 10e3/ul Critically high 0.00-0.03 [facility] Comment on above: Performed By: #### C MREP #### [facility] [address] [address] [address] Sayda Kapoor IG % 0.6 % Critically high 0.0-0.5 [facility] Comment on above: Performed By: #### C MREP #### [facility] [address] [address] [address] Sayda Kapoor LYMPH # 1.0 103/ul Critically low 1.2-3.8 [facility] Comment on above: Performed By: #### C MREP #### [facility] [address] [address] [address] Sayda Kapoor Lymphocytes/100 WBC (Bld) 9.0 % Critically low 20.5-60.0 [facility] Comment on above: Performed By: #### C MREP #### [facility] [address] [place] [address] Dr. Sayda Kapoor MANUAL DIFF REQ NO Normal [facility] Comment on above: Performed By: #### C MREP #### [facility] [address] [address] [address] Sayda Kapoor MCH (RBC) [Entitic mass] 23.6 pg Critically low 25.9-34.0 [facility] Comment on above: Performed By: #### C MREP #### [facility] [address] [place] [address] Dr. Sayda Kapoor MCHC (RBC) [Mass/Vol] 29.3 g/dL Critically low 29.9-35.2 [facility] Comment on above: Performed By: #### C MREP #### [facility] [address] [address] [address] Sayda Kapoor MCV (RBC) [Entitic vol] 80.5 fL Normal 80.0-94.0 [facility] Comment on above: Performed By: #### C MREP #### [facility] [address] [address] [address] Sayda Kapoor MONO # 0.7 103/ul Normal 0.3-0.8 [facility] Comment on above: Performed By: #### C MREP #### [facility] [address] [address] [address] Sayda Kapoor Monocytes/100 WBC (Bld) 6.0 % Normal 1.7-12.0 [facility] Comment on above: Performed By: #### C MREP #### [facility] [address] [place] [address] Dr. Sayda Kapoor NEUT # 9.1 103/ul Critically high 1.4-6.5 [facility] Comment on above: Performed By: #### C MREP #### [facility] [address] [place] [address] Dr. Sayda Kapoor Neutrophils/100 WBC (Bld) 84.0 % Critically high 43.0-75.0 [facility] Comment on above: Performed By: #### C MREP #### [facility] [address] [place] [address] Dr. Sayda Kapoor Platelet mean volume (Bld) [Entitic vol] 10.1 fL Normal 9.5-13.5 [facility] Comment on above: Performed By: #### C MREP #### [facility] [address] [place] [address] Dr. Sayda Kapoor PLT 374 103/ul Normal 150-450 [facility] Comment on above: Performed By: #### C MREP #### [facility] [address] [place] [address] Dr. Sayda Kapoor RBC 3.69 106/ul Critically low 4.70-6.10 [facility] Comment on above: Performed By: #### C MREP #### [facility] [address] [place] [address] Dr. Sayda Kapoor WBC 10.8 103/ul Normal 4.0-11.0 [facility] Comment on above: Performed By: #### C MREP #### [facility] [address] [place] [address] Dr. Sayda Kapoor Covid-19 PCR ([facility])on 10-03 SARS-CoV-2 (COVID-19) RNA KAT+probe Ql (Unsp spec) Not detected Normal NOT DETECTED [facility] Comment on above: Result Comment: When diagnostic [...] for this test is supported by the [employer] Operator of Health and Human Service's declaration that [...] used). Performed By: #### D IG #### [facility] [address] [place] [address] Dr. Sayda Kapoor LACTATE/LACTIC ACIDon 2022 Lactate [Moles/Vol] 2.5 mmol/L Critically high 0.4-1.9 [facility] Comment on above: Performed By: #### Q NTTB #### [facility] [address] [place] [address] Dr. Sayda Kapoor Lactate [Moles/Vol] 2.3 mmol/L Critically high 0.4-1.9 [facility] Comment on above: Performed By: #### B RAMP LEAD, CMP, LIPA, TONI #### [facility] [address] [place] [address] Dr. Sayda Kapoor PROF 14(COMP METB)on 023 Albumin [Mass/Vol] 2.8 g/dL Critically low 3.4-5.0 [facility] Comment on above: Performed By: #### Q NTTB #### [facility] [address] [place] [address] Dr. Sayda Kapoor Albumin/Globulin [Mass ratio] 0.9 {ratio} Normal [facility] Comment on above: Performed By: #### Q NTTB #### [facility] [address] [address] [address] Sayda Kapoor ALP [Catalytic activity/Vol] 66 U/L Normal 46-116 [facility] Comment on above: Performed By: #### Q NTTB #### [facility] [address] [address] [address] Sayda Kapoor ALT [Catalytic activity/Vol] 41 U/L Normal 16-63 [facility] Comment on above: Performed By: #### Q NTTB #### [facility] [address] [address] [address] Sayda Kapoor Anion gap [Moles/Vol] 11.9 mmol/L Normal [facility] Comment on above: Performed By: #### Q NTTB #### [facility] [address] [place] [address] Dr. Sayda Kapoor AST [Catalytic activity/Vol] 22 U/L Normal 15-37 [facility] Comment on above: Performed By: #### Q NTTB #### [facility] [address] [place] [address] Dr. Sayda Kapoor Bilirubin [Mass/Vol] 1.3 mg/dL Critically high 0.2-1.0 [facility] Comment on above: Performed By: #### Q NTTB #### [facility] [address] [place] [address] Dr. Sayda Kapoor Calcium [Mass/Vol] 8.1 mg/dL Critically low 8.5-10.1 [facility] Comment on above: Performed By: #### Q NTTB #### [facility] [address] [place] [address] Dr. Sayda Kapoor Chloride [Moles/Vol] 105 mmol/L Normal 98-107 [facility] Comment on above: Performed By: #### Q NTTB #### [facility] [address] [address] [address] Sayda Kapoor CO2 [Moles/Vol] 27.4 mmol/L Normal 21.0-32.0 [facility] Comment on above: Performed By: #### Q NTTB #### [facility] [address] [address] [address] Sayda Kapoor Creatinine [Mass/Vol] 1.44 mg/dL Critically high 0.70-1.30 [facility] Comment on above: Performed By: #### Q NTTB #### [facility] [address] [address] [address] Sayda Kapoor EGFR-AF KENYAN 60 mL/min/1.73m2 Normal >=60 [facility] Comment on above: Performed By: #### Q NTTB #### [facility] [address] [address] [address] Sayda Kapoor EGFR-NON AF KENYAN 50 mL/min/1.73m2 Critically low >=60 [facility] Comment on above: Performed By: #### Q NTTB #### [facility] [address] [address] [address] Sayda Kapoor Globulin (S) [Mass/Vol] 3.0 g/dL Normal [facility] Comment on above: Performed By: #### Q NTTB #### [facility] [address] [address] [address] Sayda Kapoor Glucose [Mass/Vol] 132 mg/dL Critically high 74-106 [facility] Comment on above: Performed By: #### Q NTTB #### [facility] [address] [address] [address] Sayda Kapoor Potassium [Moles/Vol] 4.3 mmol/L Normal 3.5-5.1 [facility] Comment on above: Performed By: #### Q NTTB #### [facility] [address] [address] [address] Sayda Kapoor Protein [Mass/Vol] 5.8 g/dL Critically low 6.4-8.2 [facility] Comment on above: Performed By: #### Q NTTB #### [facility] [address] [address] [address] Sayda Kapoor Sodium [Moles/Vol] 140 mmol/L Normal 136-145 [facility] Comment on above: Performed By: #### Q NTTB #### [facility] [address] [address] [address] Sayda Kapoor Urea nitrogen [Mass/Vol] 31.0 mg/dL Critically high 7.0-18.0 [facility] Comment on above: Performed By: #### Q NTTB #### [facility] [address] [address] [address] Sayda Kapoor Urea nitrogen/Creatinine [Mass ratio] 21.5 mg/mg Normal [facility] Comment on above: Performed By: #### Q NTTB #### [facility] [address] [place] [address] Dr. Sayda Kapoor T4on 10-21-2022 T4 [Mass/Vol] 5.00 ug/dL Normal 4.50-12.10 [facility] Comment on above: Performed By: #### Q NTTB #### [facility] [address] [place] [address] Dr. Sayda Kapoor TSHon 10-21-2022 TSH 0.918 uIU/mL Normal 0.358-3.740 [facility] Comment on above: Performed By: #### Q NTTB #### [facility] [address] [place] [address] Dr. Sayda Kapoor XR CHEST 1 Von 10-21-2022 XR CHEST 1 V EXAM: XR CHEST 1 V HISTORY: SHORTNESS OF BREATH COMPARISON: None. TECHNIQUE: Portable chest FINDINGS: IMPRESSION: Poor inspiratory effort. No focal consolidation or infiltrate. The heart is not enlarged. No pneumothorax or discrete pleural effusion. Electronically authenticated by: CUBA RO Date: 2022-10-21 18:09 Normal [facility] CREATININEon 10-19-2022 Creatinine [Mass/Vol] 1.21 mg/dL Normal 0.70-1.30 [facility] Comment on above: Performed By: #### B RAMP LEAD, CMP, LIPA, TONI #### [facility] [address] [place] [address] Dr. Sayda Kapoor EGFR-AF KENYAN >60 Normal >=60 [facility] Comment on above: Performed By: #### B RAMP LEAD, CMP, LIPA, TONI #### [facility] [address] [place] [address] Dr. Sayda Kapoor EGFR-NON AF KENYAN >60 Normal >=60 [facility] Comment on above: Performed By: #### B RAMP LEAD, CMP, LIPA, TONI #### [facility] [address] [place] [address] Dr. Sayda Kapoor Consultation Noteon 08-05-20 22 Consultation Note [id number] 0CD:[id number] Normal [facility] CBC AUTO DIFFon 07-26-2022 BASO # 0.1 103/ul Normal 0.0-0.1 [facility] Comment on above: Performed By: #### B RAMP LEAD, CMP, LIPA, TONI #### [facility] [address] [place] [address] Dr. Sayda Kapoor Basophils/100 WBC (Bld) 0.8 % Normal 0.2-2.0 [facility] Comment on above: Performed By: #### B RAMP LEAD, CMP, LIPA, TONI #### [facility] [address] [place] [address] Dr. Sayda Kapoor EO # 0.2 103/ul Normal 0.0-0.7 [facility] Comment on above: Performed By: #### B RAMP LEAD, CMP, LIPA, TONI #### [facility] [address] [place] [address] Dr. Sayda Kapoor Eosinophils/100 WBC (Bld) 2.9 % Normal 0.9-7.0 [facility] Comment on above: Performed By: #### B RAMP LEAD, CMP, LIPA, TONI #### [facility] [address] [place] [address] Dr. Sayda Kapoor Erythrocyte distribution width (RBC) [Ratio] 14.3 % Normal 11.0-15.0 [facility] Comment on above: Performed By: #### B RAMP LEAD, CMP, LIPA, TONI #### [facility] [address] [place] [address] Dr. Sayda Kapoor Hematocrit (Bld) [Volume fraction] 31.5 % Critically low 42.0-54.0 [facility] Comment on above: Performed By: #### B RAMP LEAD, CMP, LIPA, TONI #### [facility] [address] [place] [address] Dr. Sayda Kapoor Hemoglobin (Bld) [Mass/Vol] 10.1 g/dL Critically low 14.0-18.0 [facility] Comment on above: Performed By: #### B RAMP LEAD, CMP, LIPA, TONI #### [facility] [address] [place] [address] Dr. Sayda Kapoor IG # 0.07 10e3/ul Critically high 0.00-0.03 [facility] Comment on above: Performed By: #### B RAMP LEAD, CMP, LIPA, TONI #### [facility] [address] [place] [address] Dr. Sayda Kapoor IG % 1.1 % Critically high 0.0-0.5 [facility] Comment on above: Performed By: #### B RAMP LEAD, CMP, LIPA, TONI #### [facility] [address] [place] [address] Dr. Sayda Kapoor LYMPH # 1.1 103/ul Critically low 1.2-3.8 [facility] Comment on above: Performed By: #### B RAMP LEAD, CMP, LIPA, TONI #### [facility] [address] [place] [address] Dr. Sayda Kapoor Lymphocytes/100 WBC (Bld) 17.1 % Critically low 20.5-60.0 [facility] Comment on above: Performed By: #### B RAMP LEAD, CMP, LIPA, TONI #### [facility] [address] [place] [address] Dr. Sayda Kapoor MANUAL DIFF REQ NO Normal [facility] Comment on above: Performed By: #### B RAMP LEAD, CMP, LIPA, TONI #### [facility] [address] [place] [address] Dr. Sayda Kapoor MCH (RBC) [Entitic mass] 27.2 pg Normal 25.9-34.0 [facility] Comment on above: Performed By: #### B RAMP LEAD, CMP, LIPA, TONI #### [facility] [address] [place] [address] Dr. Sayda Kapoor MCHC (RBC) [Mass/Vol] 32.1 g/dL Normal 29.9-35.2 [facility] Comment on above: Performed By: #### B RAMP LEAD, CMP, LIPA, TONI #### [facility] [address] [place] [address] Dr. Sayda Kapoor MCV (RBC) [Entitic vol] 84.7 fL Normal 80.0-94.0 [facility] Comment on above: Performed By: #### B RAMP LEAD, CMP, LIPA, TONI #### [facility] [address] [place] [address] Dr. Sayda Kapoor MONO # 0.7 103/ul Normal 0.3-0.8 [facility] Comment on above: Performed By: #### B RAMP LEAD, CMP, LIPA, TONI #### [facility] [address] [place] [address] Dr. Sayda Kapoor Monocytes/100 WBC (Bld) 10.4 % Normal 1.7-12.0 [facility] Comment on above: Performed By: #### B RAMP LEAD, CMP, LIPA, TONI #### [facility] [address] [place] [address] Dr. Sayda Kapoor NEUT # 4.5 103/ul Normal 1.4-6.5 [facility] Comment on above: Performed By: #### B RAMP LEAD, CMP, LIPA, TONI #### [facility] [address] [place] [address] Dr. Sayda Kapoor Neutrophils/100 WBC (Bld) 67.7 % Normal 43.0-75.0 [facility] Comment on above: Performed By: #### B RAMP LEAD, CMP, LIPA, TONI #### [facility] [address] [place] [address] Dr. Sayda Kapoor Platelet mean volume (Bld) [Entitic vol] 9.0 fL Critically low 9.5-13.5 [facility] Comment on above: Performed By: #### B RAMP LEAD, CMP, LIPA, TONI #### [facility] [address] [address] [address] Sayda Kapoor PLT 318 103/ul Normal 150-450 [facility] Comment on above: Performed By: #### B RAMP LEAD, CMP, LIPA, TONI #### [facility] [address] [address] [address] Sayda Kapoor RBC 3.72 106/ul Critically low 4.70-6.10 [facility] Comment on above: Performed By: #### B RAMP LEAD, CMP, LIPA, TONI #### [facility] [address] [place] [address] Dr. Sayda Kapoor WBC 6.6 103/ul Normal 4.0-11.0 [facility] Comment on above: Performed By: #### B RAMP LEAD, CMP, LIPA, TONI #### [facility] [address] [place] [address] Dr. Sayda Kapoor FERRITINon 07-26-2022 Ferritin [Mass/Vol] 19.0 ng/mL Critically low 26.0-388.0 [facility] Comment on above: Performed By: #### B RAMP LEAD, CMP, LIPA, TONI #### [facility] [address] [place] [address] Dr. Sayda Kapoor IRON AND TIBCon 07-26-2022 % SATURATION 10.0 % Normal [facility] Comment on above: Performed By: #### B RAMP LEAD, CMP, LIPA, TONI #### [facility] [address] [place] [address] Dr. Sayda Kapoor Iron [Mass/Vol] 30.0 ug/dL Critically low 65.0-175.0 [facility] Comment on above: Performed By: #### B RAMP LEAD, CMP, LIPA, TONI #### [facility] [address] [place] [address] Dr. Sayda Kapoor TIBC DIRECT 299.0 ug/dL Normal 250.0-450.0 [facility] Comment on above: Performed By: #### B RAMP LEAD, CMP, LIPA, TONI #### [facility] [address] [place] [address] Dr. Sayda Kapoor PANCREATIC ELASTASE FECALon 07-19-2022 Pancreatic Elastase, Fecal 466 ug Elast./g Normal >200 [facility] Comment on above: Result Comment: Serenity re Pancreatic Insufficiency: <100 Moderate Pancreatic Insufficiency: 100 - 200 Normal: >200 Performed By: #### C MREP #### [facility] [address] [address] [address] Sayda Kapoor BOWEL DISORDERS EVALUATION R ULE-OUT CASCon 07-18-2022 Antigliadin 1 units Normal 0-19 [facility] Comment on above: Result Comment: Nega tive 0 - 19 Weak Positive 20 - 30 Moderate to Strong Positive >30 . Performed By: #### B RAMP LEAD, CMP, LIPA, TONI #### [facility] [address] [address] [address] Sayda Kapoor Atypical pANCA Negative Normal Negative [facility] Comment on above: Performed By: #### B RAMP LEAD, CMP, LIPA, TONI #### [facility] [address] [address] [address] Sayda Kapoor Note: [facility] continues Normal [facility] Comment on above: Performed By: #### B RAMP LEAD, CMP, LIPA, TONI #### [facility] [address] [address] [address] Sayda Kapoor Note: Comment Normal [facility] Comment on above: Result Comment: Sugg estive of irritable bowel syndrome (IBS). Careful evaluation of the patient's history, physical examination, and application of [place] III diagnostic criteria may help to rule in or rule out the diagnosis of IBS. Subsequent testing for Fecal Calprotectin (345589) may be recommended. If IBD is strongly suspected, subsequent testing with the Crohn's Disease Prognostic Profile (115881) that includes anti- glycan antibodies AMCA, ALCA, ACCA, and Sarbjit may aid in differential diagnosis. Performed By: #### B RAMP LEAD, CMP, LIPA, TONI #### [facility] [address] [address] [address] Sayda Kapoor Saccharomyces Cer. IgG <20.0 Normal 0.0-24.9 [facility] Comment on above: Result Comment: Nega tive <20.0 Equivocal 20.1 - 24.9 Positive >or= 25.0 Performed By: #### B RAMP LEAD, CMP, LIPA, TONI #### [facility] [address] [address] [address] Sayda Kapoor tTG/DGP SCR Negative Normal Negative [facility] Comment on above: Performed By: #### B RAMP LEAD, CMP, LIPA, TONI #### [facility] [address] [address] [address] Sayda Kapoor LACTOFERRIN FECAL QUANTon Lactoferrin, Fecal, Quant. 35.24 ug/mL(g) Critically high 0.00-7.24 [facility] Comment on above: Result Comment: Re [...] (IBS). Performed By: #### D IG #### [facility] [address] [place] [address] Dr. Sayda Kapoor QUANTIFERON TB GOLD PLUSon 1 09-15-2021 QuantiFERON Criteria Comment Normal [facility] Comment on above: Result Comment: Colt [...] test. Performed By: #### Q NTTB #### [facility] [address] [place] [address] Dr. Sayda Kapoor QuantiFERON Incubation Incubation performed. Normal [facility] Comment on above: Performed By: #### Q NTTB #### [facility] [address] [address] [address] Sayda Kapoor QuantiFERON Mitogen Value 8.53 IU/mL Normal [facility] Comment on above: Performed By: #### Q NTTB #### [facility] [address] [address] [address] Sayda Kapoor QuantiFERON Nil Value 0.04 IU/mL Normal [facility] Comment on above: Performed By: #### Q NTTB #### [facility] [address] [place] [address] Dr. Sayda Kapoor QuantiFERON TB1 Ag Value 0.07 IU/mL Normal [facility] Comment on above: Performed By: #### Q NTTB #### [facility] [address] [place] [address] Dr. Sayda Kapoor QuantiFERON TB2 Ag Value 0.04 IU/mL Normal [facility] Comment on above: Performed By: #### Q NTTB #### [facility] [address] [place] [address] Dr. Sayda Kapoor QuantiFERON-TB Gold Plus Negative Normal Negative [facility] Comment on above: Result Comment: No r esponse to M tuberculosis antigens detected. Infection with M tuberculosis is unlikely, but high risk individuals should be considered for additional testing (ATS/IDSA/CDC Clinical Practice Guidelines, 2017). The reference range is an Antigen minus Nil result of <0.35 IU/mL. Chemiluminescence immunoassay methodology Performed By: #### Q NTTB #### [facility] [address] [place] [address] Dr. Sayda Kapoor CALPROTECTIN, FECALon 2021 Calprotectin, Fecal 247 ug/g Critically high 0-120 [facility] Comment on above: Result Comment: Conc entration Interpretation Follow-Up <16 - 50 ug/g Normal None >50 -120 ug/g Borderline Re-evaluate in 4-6 weeks >120 ug/g Abnormal Repeat as clinically indicated Performed By: #### C MREP #### [facility] [address] [place] [address] Dr. Sayda Kapoor HEP B COREon 07-13-2022 Hep B Core Ab, Tot Negative Normal Negative [facility] Comment on above: Performed By: #### H BCORE #### [facility] [address] [place] [address] Dr. Sayda Kapoor HEP B SURFACE ANTIGEN SCREEN on 07-13-2022 HBsAg Screen Negative Normal Negative [facility] Comment on above: Performed By: #### B RAMP LEAD, CMP, LIPA, TONI #### [facility] [address] [address] [address] Sayda Kapoor CBC AUTO DIFFon 07-11-2022 BASO # 0.1 103/ul Normal 0.0-0.1 [facility] Comment on above: Performed By: #### C BC #### [facility] [address] [address] [address] Sayda Kapoor Basophils/100 WBC (Bld) 0.8 % Normal 0.2-2.0 [facility] Comment on above: Performed By: #### C BC #### [facility] [address] [place] [address] Dr. Sayda Kapoor EO # 0.2 103/ul Normal 0.0-0.7 [facility] Comment on above: Performed By: #### C BC #### [facility] [address] [address] [address] Sayda Kapoor Eosinophils/100 WBC (Bld) 3.3 % Normal 0.9-7.0 [facility] Comment on above: Performed By: #### C BC #### [facility] [address] [place] [address] Dr. Sayda Kapoor Erythrocyte distribution width (RBC) [Ratio] 14.6 % Normal 11.0-15.0 [facility] Comment on above: Performed By: #### C BC #### [facility] [address] [place] [address] Dr. Sayda Kapoor Hematocrit (Bld) [Volume fraction] 29.7 % Critically low 42.0-54.0 [facility] Comment on above: Performed By: #### C BC #### [facility] [address] [address] [address] Sayda Kapoor Hemoglobin (Bld) [Mass/Vol] 9.5 g/dL Critically low 14.0-18.0 [facility] Comment on above: Performed By: #### C BC #### [facility] [address] [address] [address] Sayda Kapoor IG # 0.03 10e3/ul Normal 0.00-0.03 [facility] Comment on above: Performed By: #### C BC #### [facility] [address] [address] [address] Sayda Kapoor IG % 0.4 % Normal 0.0-0.5 [facility] Comment on above: Performed By: #### C BC #### [facility] [address] [place] [address] Dr. Sayda Kapoor LYMPH # 1.0 103/ul Critically low 1.2-3.8 [facility] Comment on above: Performed By: #### C BC #### [facility] [address] [place] [address] Dr. Sayda Kapoor Lymphocytes/100 WBC (Bld) 13.6 % Critically low 20.5-60.0 [facility] Comment on above: Performed By: #### C BC #### [facility] [address] [place] [address] Dr. Sayda Kapoor MANUAL DIFF REQ NO Normal [facility] Comment on above: Performed By: #### C BC #### [facility] [address] [place] [address] Dr. Sayda Kapoor MCH (RBC) [Entitic mass] 27.6 pg Normal 25.9-34.0 [facility] Comment on above: Performed By: #### C BC #### [facility] [address] [place] [address] Dr. Sayda Kapoor MCHC (RBC) [Mass/Vol] 32.0 g/dL Normal 29.9-35.2 [facility] Comment on above: Performed By: #### C BC #### [facility] [address] [place] [address] Dr. Sayda Kapoor MCV (RBC) [Entitic vol] 86.3 fL Normal 80.0-94.0 [facility] Comment on above: Performed By: #### C BC #### [facility] [address] [place] [address] Dr. Sayda Kapoor MONO # 0.6 103/ul Normal 0.3-0.8 [facility] Comment on above: Performed By: #### C BC #### [facility] [address] [place] [address] Dr. Sayda Kapoor Monocytes/100 WBC (Bld) 8.6 % Normal 1.7-12.0 [facility] Comment on above: Performed By: #### C BC #### [facility] [address] [place] [address] Dr. Sayda Kapoor NEUT # 5.2 103/ul Normal 1.4-6.5 [facility] Comment on above: Performed By: #### C BC #### [facility] [address] [place] [address] Dr. Sayda Kapoor Neutrophils/100 WBC (Bld) 73.3 % Normal 43.0-75.0 [facility] Comment on above: Performed By: #### C BC #### [facility] [address] [place] [address] Dr. Sayda Kapoor Platelet mean volume (Bld) [Entitic vol] 8.9 fL Critically low 9.5-13.5 [facility] Comment on above: Performed By: #### C BC #### [facility] [address] [place] [address] Dr. Sayda Kapoor PLT 242 103/ul Normal 150-450 [facility] Comment on above: Performed By: #### C BC #### [facility] [address] [place] [address] Dr. Sayda Kapoor RBC 3.44 106/ul Critically low 4.70-6.10 [facility] Comment on above: Performed By: #### C BC #### [facility] [address] [place] [address] Dr. Sayda Kapoor WBC 7.1 103/ul Normal 4.0-11.0 [facility] Comment on above: Performed By: #### C BC #### [facility] [address] [place] [address] Dr. Sayda Kapoor CRPon 07-11-2022 CRP 0.5 mg/dL Normal <=1.0 [facility] Comment on above: Performed By: #### Q NTTB #### [facility] [address] [place] [address] Dr. Sayda Kapoor PROF 14(COMP METB)on 022 Albumin [Mass/Vol] 2.9 g/dL Critically low 3.4-5.0 [facility] Comment on above: Performed By: #### Q NTTB #### [facility] [address] [place] [address] Dr. Sayda Kapoor Albumin/Globulin [Mass ratio] 0.9 {ratio} Normal [facility] Comment on above: Performed By: #### Q NTTB #### [facility] [address] [place] [address] Dr. Sayda Kapoor ALP [Catalytic activity/Vol] 60 U/L Normal 46-116 [facility] Comment on above: Performed By: #### Q NTTB #### [facility] [address] [place] [address] Dr. Sayda Kapoor ALT [Catalytic activity/Vol] 15 U/L Critically low 16-63 [facility] Comment on above: Performed By: #### Q NTTB #### [facility] [address] [place] [address] Dr. Sayda Kapoor Anion gap [Moles/Vol] 8.6 mmol/L Normal [facility] Comment on above: Performed By: #### Q NTTB #### [facility] [address] [place] [address] Dr. Sayda Kapoor AST [Catalytic activity/Vol] 10 U/L Critically low 15-37 [facility] Comment on above: Performed By: #### Q NTTB #### [facility] [address] [place] [address] Dr. Sayda Kapoor Bilirubin [Mass/Vol] 0.3 mg/dL Normal 0.2-1.0 [facility] Comment on above: Performed By: #### Q NTTB #### [facility] [address] [place] [address] Dr. Sayda Kapoor Calcium [Mass/Vol] 8.4 mg/dL Critically low 8.5-10.1 [facility] Comment on above: Performed By: #### Q NTTB #### [facility] [address] [place] [address] Dr. Sayda Kapoor Chloride [Moles/Vol] 104 mmol/L Normal 98-107 [facility] Comment on above: Performed By: #### Q NTTB #### [facility] [address] [address] [address] Sayda Kapoor CO2 [Moles/Vol] 29.2 mmol/L Normal 21.0-32.0 [facility] Comment on above: Performed By: #### Q NTTB #### [facility] [address] [place] [address] Dr. Sayda Kapoor Creatinine [Mass/Vol] 1.04 mg/dL Normal 0.70-1.30 [facility] Comment on above: Performed By: #### Q NTTB #### [facility] [address] [place] [address] Dr. Sayda Kapoor EGFR-AF KENYAN >60 Normal >=60 [facility] Comment on above: Performed By: #### Q NTTB #### [facility] [address] [place] [address] Dr. Sayda Kapoor EGFR-NON AF KENYAN >60 Normal >=60 [facility] Comment on above: Performed By: #### Q NTTB #### [facility] [address] [place] [address] Dr. Sayda Kapoor Globulin (S) [Mass/Vol] 3.4 g/dL Normal [facility] Comment on above: Performed By: #### Q NTTB #### [facility] [address] [place] [address] Dr. Sayda Kapoor Glucose [Mass/Vol] 93 mg/dL Normal 74-106 [facility] Comment on above: Performed By: #### Q NTTB #### [facility] [address] [place] [address] Dr. Sayda Kapoor Potassium [Moles/Vol] 3.8 mmol/L Normal 3.5-5.1 [facility] Comment on above: Performed By: #### Q NTTB #### [facility] [address] [place] [address] Dr. Sayda Kapoor Protein [Mass/Vol] 6.3 g/dL Critically low 6.4-8.2 [facility] Comment on above: Performed By: #### Q NTTB #### [facility] [address] [place] [address] Dr. Sayda Kapoor Sodium [Moles/Vol] 138 mmol/L Normal 136-145 [facility] Comment on above: Performed By: #### Q NTTB #### [facility] [address] [place] [address] Dr. Sayda Kapoor Urea nitrogen [Mass/Vol] 17.0 mg/dL Normal 7.0-18.0 [facility] Comment on above: Performed By: #### Q NTTB #### [facility] [address] [place] [address] Dr. Sayda Kapoor Urea nitrogen/Creatinine [Mass ratio] 16.3 mg/mg Normal [facility] Comment on above: Performed By: #### Q NTTB #### [facility] [address] [place] [address] Dr. Sayda Kapoor PROTIMEon 07-11-2022 INR Coag (PPP) [Relative time] 1.07 {INR} Normal [facility] Comment on above: Performed By: #### Q NTTB #### [facility] [address] [place] [address] Dr. Sayda Kapoor INR GUIDELINES SEE BELOW Normal [facility] Comment on above: Result Comment: SOPHIE RED INR: 2.0 - 3.0 CONDITIONS NOT LISTED BELOW 2.5 - 3.5 FOR PROSTHETIC HEART VALVE REPLACEMENT 2.5 - 3.5 RECURRENT THROMBOSIS Performed By: #### Q NTTB #### [facility] [address] [place] [address] Dr. Sayda Kapoor PT Coag (PPP) [Time] 11.5 s Normal 9.0-11.6 [facility] Comment on above: Performed By: #### Q NTTB #### [facility] [address] [address] [address] [facility] mm/hr Normal <=20 [facility] Comment on above: Performed By: #### D IG #### [facility] [address] [address] [address] Sayda Kapoor Scanned GI Testingon 022 Scanned GI Testing [id number]#1.0 0CD:127 Normal [facility] CBC AUTO DIFFon 07-04-2022 BASO # 0.1 103/ul Normal 0.0-0.1 [facility] Comment on above: Performed By: #### C MREP #### [facility] [address] [place] [address] Dr. Sayda Kapoor Basophils/100 WBC (Bld) 0.6 % Normal 0.2-2.0 [facility] Comment on above: Performed By: #### C MREP #### [facility] [address] [address] [address] Sayda Kapoor EO # 0.2 103/ul Normal 0.0-0.7 [facility] Comment on above: Performed By: #### C MREP #### [facility] [address] [place] [address] Dr. Sayda Kapoor Eosinophils/100 WBC (Bld) 2.2 % Normal 0.9-7.0 [facility] Comment on above: Performed By: #### C MREP #### [facility] [address] [address] [address] Sayda Kapoor Erythrocyte distribution width (RBC) [Ratio] 14.7 % Normal 11.0-15.0 [facility] Comment on above: Performed By: #### C MREP #### [facility] [address] [place] [address] Dr. Sayda Kapoor Hematocrit (Bld) [Volume fraction] 31.9 % Critically low 42.0-54.0 [facility] Comment on above: Performed By: #### C MREP #### [facility] [address] [place] [address] Dr. Sayda Kapoor Hemoglobin (Bld) [Mass/Vol] 10.2 g/dL Critically low 14.0-18.0 [facility] Comment on above: Performed By: #### C MREP #### [facility] [address] [place] [address] Dr. Sayda Kapoor IG # 0.09 10e3/ul Critically high 0.00-0.03 [facility] Comment on above: Performed By: #### C MREP #### [facility] [address] [place] [address] Dr. Sayda Kapoor IG % 1.1 % Critically high 0.0-0.5 [facility] Comment on above: Performed By: #### C MREP #### [facility] [address] [place] [address] Dr. Sayda Kapoor LYMPH # 1.2 103/ul Normal 1.2-3.8 [facility] Comment on above: Performed By: #### C MREP #### [facility] [address] [place] [address] Dr. Sayda Kapoor Lymphocytes/100 WBC (Bld) 14.6 % Critically low 20.5-60.0 [facility] Comment on above: Performed By: #### C MREP #### [facility] [address] [place] [address] Dr. Sayda Kapoor MANUAL DIFF REQ NO Normal [facility] Comment on above: Performed By: #### C MREP #### [facility] [address] [place] [address] Dr. Sayda Kapoor MCH (RBC) [Entitic mass] 27.5 pg Normal 25.9-34.0 [facility] Comment on above: Performed By: #### C MREP #### [facility] [address] [place] [address] Dr. Sayda Kapoor MCHC (RBC) [Mass/Vol] 32.0 g/dL Normal 29.9-35.2 [facility] Comment on above: Performed By: #### C MREP #### [facility] [address] [address] [address] Sayda Kapoor MCV (RBC) [Entitic vol] 86.0 fL Normal 80.0-94.0 [facility] Comment on above: Performed By: #### C MREP #### [facility] [address] [place] [address] Dr. Sayda Kapoor MONO # 0.9 103/ul Critically high 0.3-0.8 [facility] Comment on above: Performed By: #### C MREP #### [facility] [address] [place] [address] Dr. Sayda Kapoor Monocytes/100 WBC (Bld) 10.4 % Normal 1.7-12.0 [facility] Comment on above: Performed By: #### C MREP #### [facility] [address] [place] [address] Dr. Sayda Kapoor NEUT # 5.9 103/ul Normal 1.4-6.5 [facility] Comment on above: Performed By: #### C MREP #### [facility] [address] [place] [address] Dr. Sayda Kapoor Neutrophils/100 WBC (Bld) 71.1 % Normal 43.0-75.0 [facility] Comment on above: Performed By: #### C MREP #### [facility] [address] [place] [address] Dr. Sayda Kapoor Platelet mean volume (Bld) [Entitic vol] 8.8 fL Critically low 9.5-13.5 [facility] Comment on above: Performed By: #### C MREP #### [facility] [address] [place] [address] Dr. Sayda Kapoor PLT 252 103/ul Normal 150-450 [facility] Comment on above: Performed By: #### C MREP #### [facility] [address] [place] [address] Dr. Sayda Kapoor RBC 3.71 106/ul Critically low 4.70-6.10 [facility] Comment on above: Performed By: #### C MREP #### [facility] [address] [place] [address] Dr. Sayda Kapoor WBC 8.3 103/ul Normal 4.0-11.0 [facility] Comment on above: Performed By: #### C MREP #### [facility] [address] [place] [address] Dr. Sayda Kapoor CRPon 07-04-2022 CRP 1.8 mg/dL Critically high <=1.0 [facility] Comment on above: Performed By: #### B RAMP LEAD, CMP, LIPA, TONI #### [facility] [address] [place] [address] Dr. Sayda Kapoor PROF 14(COMP METB)on 022 Albumin [Mass/Vol] 3.0 g/dL Critically low 3.4-5.0 [facility] Comment on above: Performed By: #### B RAMP LEAD, CMP, LIPA, TONI #### [facility] [address] [place] [address] Dr. Sayda Kapoor Albumin/Globulin [Mass ratio] 1.0 {ratio} Normal [facility] Comment on above: Performed By: #### B RAMP LEAD, CMP, LIPA, OTNI #### [facility] [address] [place] [address] Dr. Sayda Kapoor ALP [Catalytic activity/Vol] 54 U/L Normal 46-116 [facility] Comment on above: Performed By: #### B RAMP LEAD, CMP, LIPA, TONI #### [facility] [address] [place] [address] Dr. Sayda Kapoor ALT [Catalytic activity/Vol] 17 U/L Normal 16-63 [facility] Comment on above: Performed By: #### B RAMP LEAD, CMP, LIPA, TONI #### [facility] [address] [place] [address] Dr. Sayda Kapoor Anion gap [Moles/Vol] 6.8 mmol/L Normal [facility] Comment on above: Performed By: #### B RAMP LEAD, CMP, LIPA, TONI #### [facility] [address] [place] [address] Dr. Sayda Kapoor AST [Catalytic activity/Vol] 13 U/L Critically low 15-37 [facility] Comment on above: Performed By: #### B RAMP LEAD, CMP, LIPA, TONI #### [facility] [address] [place] [address] Dr. Sayda Kapoor Bilirubin [Mass/Vol] 0.5 mg/dL Normal 0.2-1.0 [facility] Comment on above: Performed By: #### B RAMP LEAD, CMP, LIPA, TONI #### [facility] [address] [place] [address] Dr. Sayda Kapoor Calcium [Mass/Vol] 8.3 mg/dL Critically low 8.5-10.1 [facility] Comment on above: Performed By: #### B RAMP LEAD, CMP, LIPA, TONI #### [facility] [address] [place] [address] Dr. Sayda Kapoor Chloride [Moles/Vol] 102 mmol/L Normal 98-107 [facility] Comment on above: Performed By: #### B RAMP LEAD, CMP, LIPA, TONI #### [facility] [address] [place] [address] Dr. Sayda Kapoor CO2 [Moles/Vol] 31.7 mmol/L Normal 21.0-32.0 [facility] Comment on above: Performed By: #### B RAMP LEAD, CMP, LIPA, TONI #### [facility] [address] [place] [address] Dr. Sayda Kapoor Creatinine [Mass/Vol] 1.03 mg/dL Normal 0.70-1.30 [facility] Comment on above: Performed By: #### B RAMP LEAD, CMP, LIPA, TONI #### [facility] [address] [place] [address] Dr. Sayda Kapoor EGFR-AF KENYAN >60 Normal >=60 [facility] Comment on above: Performed By: #### B RAMP LEAD, CMP, LIPA, TONI #### [facility] [address] [place] [address] Dr. Sayda Kapoor EGFR-NON AF KENYAN >60 Normal >=60 [facility] Comment on above: Performed By: #### B RAMP LEAD, CMP, LIPA, TONI #### [facility] [address] [address] [address] Sayda Kapoor Globulin (S) [Mass/Vol] 3.1 g/dL Normal [facility] Comment on above: Performed By: #### B RAMP LEAD, CMP, LIPA, TONI #### [facility] [address] [place] [address] Dr. Sayda Kapoor Glucose [Mass/Vol] 102 mg/dL Normal 74-106 [facility] Comment on above: Performed By: #### B RAMP LEAD, CMP, LIPA, TONI #### [facility] [address] [address] [address] Sayda Kapoor Potassium [Moles/Vol] 3.5 mmol/L Normal 3.5-5.1 [facility] Comment on above: Performed By: #### B RAMP LEAD, CMP, LIPA, TONI #### [facility] [address] [place] [address] Dr. Sayda Kapoor Protein [Mass/Vol] 6.1 g/dL Critically low 6.4-8.2 [facility] Comment on above: Performed By: #### B RAMP LEAD, CMP, LIPA, TONI #### [facility] [address] [place] [address] Dr. Sayda Kapoor Sodium [Moles/Vol] 137 mmol/L Normal 136-145 [facility] Comment on above: Performed By: #### B RAMP LEAD, CMP, LIPA, TONI #### [facility] [address] [place] [address] Dr. Sayda Kapoor Urea nitrogen [Mass/Vol] 19.0 mg/dL Critically high 7.0-18.0 [facility] Comment on above: Performed By: #### B RAMP LEAD, CMP, LIPA, TONI #### [facility] [address] [place] [address] Dr. Sayda Kapoor Urea nitrogen/Creatinine [Mass ratio] 18.4 mg/mg Normal [facility] Comment on above: Performed By: #### B RAMP LEAD, CMP, LIPA, TONI #### [facility] [address] [address] [address] Sayda Kapoor SED RATE WESTERGRENon 2021 SED RATE 17 mm/hr Normal <=20 [facility] Comment on above: Performed By: #### C MREP #### [facility] [address] [place], [place] [address] Dr. Sayda Kapoor Scanned GI Testingon 022 Scanned GI Testing [id number]#1.0 0CD:127 Normal [facility] Scanned GI Testing [id number]#1.0 0CD:127 Normal [facility] US SINGLE QUAD RT UPPERon [...] CUBA HERNANDEZ Date: 2022-06-23 16:17 Normal [facility] Outside Colonoscopyon 2021 Outside Colonoscopy [id number]#1.0 0CD:127 Normal [facility] Lab Reportson 05-07-2022 Lab Reports [id number]#1.0 0CD:127 Normal [facility] Covid-19 PCR (CVDTB)on SARS-CoV-2 (COVID-19) RNA KAT+probe Ql (Unsp spec) Not detected Normal NOT DETECTED [facility] Comment on above: Result Comment: This test is not yet approved or cleared by the [place] FDA. When there are no FDA-approved or cleared tests available, and other criteria are met, FDA can make tests available under an emergency access mechanism called an Emergency Use Authorization (EUA). The EUA for this test is supported by the [place] of Health and Human Service's (HHS's) declaration [...] consistent with SARS-CoV-2. Performed By: #### C [facility] #### [facility] [address] [place] [address] Dr. Sayda Kapoor Consent for Procedure/Surger yon 04-17-2022 Consent for Procedure/Surgery [id number] CD:127 Normal [facility] RAD - CT Reporton 04-16-2022 RAD - CT Report [id number]#1.0 0CD:127 Normal [facility] CT ABD/PELV W CONon 04-14-20 CT ABD/PELV [...] by: CUBA HERNANDEZ Date: 2022-04-14 14:28 Normal [facility] Consultation Noteon 04-09-20 22 Consultation Note [id number]#1.0 0CD:127 Normal [facility] General Surgery Office/Clini c Noteon [...] # 1 7. 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 Normal [facility] Comment on above: Result Comment: Elec tronically Signed By: LAZARO DANGELO, Javid Desai\Date and Time Signed: 04/04/22 11:03 EDT Consultation Noteon 04-03-20 Consultation Note [id number]#1.0 0CD:127 Normal [facility] Ambulatory Visit Summaryon 0 04-01-2022 [...] deficiency anemia Nausea Osteoarthritis RUQ pain Normal [facility] PROF 14(COMP METB)on 022 Albumin [Mass/Vol] 2.7 g/dL Critically low 3.4-5.0 [facility] Comment on above: Performed By: #### D IG #### [facility] [address] [place] [address] Dr. Sayda Kapoor Albumin/Globulin [Mass ratio] 0.9 {ratio} Normal [facility] Comment on above: Performed By: #### D IG #### [facility] [address] [address] [address] Sayda Kapoor ALP [Catalytic activity/Vol] 55 U/L Normal 46-116 [facility] Comment on above: Performed By: #### D IG #### [facility] [address] [address] [address] Sayda Kapoor ALT [Catalytic activity/Vol] 16 U/L Normal 16-63 [facility] Comment on above: Performed By: #### D IG #### [facility] [address] [address] [address] Sayda Kapoor Anion gap [Moles/Vol] 13.0 mmol/L Normal [facility] Comment on above: Performed By: #### D IG #### [facility] [address] [address] [address] Sayda Kapoor AST [Catalytic activity/Vol] 10 U/L Critically low 15-37 [facility] Comment on above: Performed By: #### D IG #### [facility] [address] [address] [address] Sayda Kapoor Bilirubin [Mass/Vol] 0.7 mg/dL Normal 0.2-1.0 [facility] Comment on above: Performed By: #### D IG #### [facility] [address] [address] [address] Sayda Kapoor Calcium [Mass/Vol] 7.4 mg/dL Critically low 8.5-10.1 [facility] Comment on above: Performed By: #### D IG #### [facility] [address] [address] [address] Sayda Kapoor Chloride [Moles/Vol] 110 mmol/L Critically high 98-107 [facility] Comment on above: Performed By: #### D IG #### [facility] [address] [address] [address] Sayda Kapoor CO2 [Moles/Vol] 25.1 mmol/L Normal 21.0-32.0 [facility] Comment on above: Performed By: #### D IG #### [facility] [address] [place] [address] Dr. Sayda Kapoor Creatinine [Mass/Vol] 1.16 mg/dL Normal 0.70-1.30 [facility] Comment on above: Performed By: #### D IG #### [facility] [address] [address] [address] Sayda Kapoor EGFR-AF KENYAN >60 Normal >=60 [facility] Comment on above: Performed By: #### D IG #### [facility] [address] [address] [address] Sayda Kapoor EGFR-NON AF KENYAN >60 Normal >=60 [facility] Comment on above: Performed By: #### D IG #### [facility] [address] [address] [address] Sayda Kapoor Globulin (S) [Mass/Vol] 3.0 g/dL Normal [facility] Comment on above: Performed By: #### D IG #### [facility] [address] [address] [address] Sayda Kapoor Glucose [Mass/Vol] 122 mg/dL Critically high 74-106 [facility] Comment on above: Performed By: #### D IG #### [facility] [address] [address] [address] Sayda Kapoor Potassium [Moles/Vol] 3.1 mmol/L Critically low 3.5-5.1 [facility] Comment on above: Performed By: #### D IG #### [facility] [address] [address] [address] Sayda Kapoor Protein [Mass/Vol] 5.7 g/dL Critically low 6.4-8.2 [facility] Comment on above: Performed By: #### D IG #### [facility] [address] [address] [address] Sayda Kapoor Sodium [Moles/Vol] 145 mmol/L Normal 136-145 [facility] Comment on above: Performed By: #### D IG #### [facility] [address] [address] [address] Sayda Kapoor Urea nitrogen [Mass/Vol] 16.0 mg/dL Normal 7.0-18.0 [facility] Comment on above: Performed By: #### D IG #### [facility] [address] [address] [address] Sayda Kapoor Urea nitrogen/Creatinine [Mass ratio] 13.8 mg/mg Normal [facility] Comment on above: Performed By: #### D IG #### [facility] [address] [address] [address] Sayda Kapoor Lab Reportson 03-18-2022 Lab Reports [id number] .00CD:127 Normal [facility] RAD - Ultrasound Reporton RAD - Ultrasound Report [id number] 0CD:127 Normal [facility] PROF 14(COMP METB)on 022 Albumin [Mass/Vol] 3.1 g/dL Critically low 3.4-5.0 [facility] Comment on above: Performed By: #### B RAMP LEAD, CMP, LIPA, TONI #### [facility] [address] [address] [address] Sayda Kapoor Albumin/Globulin [Mass ratio] 0.9 {ratio} Normal [facility] Comment on above: Performed By: #### B RAMP LEAD, CMP, LIPA, TONI #### [facility] [address] [place] [address] Dr. Sayda Kapoor ALP [Catalytic activity/Vol] 67 U/L Normal 46-116 [facility] Comment on above: Performed By: #### B RAMP LEAD, CMP, LIPA, TONI #### [facility] [address] [place] [address] Dr. Sayda Kapoor ALT [Catalytic activity/Vol] 25 U/L Normal 16-63 [facility] Comment on above: Performed By: #### B RAMP LEAD, CMP, LIPA, TONI #### [facility] [address] [place] [address] Dr. Sayda Kapoor Anion gap [Moles/Vol] 10.1 mmol/L Normal [facility] Comment on above: Performed By: #### B RAMP LEAD, CMP, LIPA, TONI #### [facility] [address] [place] [address] Dr. Sayda Kapoor AST [Catalytic activity/Vol] 15 U/L Normal 15-37 [facility] Comment on above: Performed By: #### B RAMP LEAD, CMP, LIPA, TONI #### [facility] [address] [place] [address] Dr. Sayda Kapoor Bilirubin [Mass/Vol] 1.1 mg/dL Critically high 0.2-1.0 [facility] Comment on above: Performed By: #### B RAMP LEAD, CMP, LIPA, TONI #### [facility] [address] [place] [address] Dr. Sayda Kapoor Calcium [Mass/Vol] 8.7 mg/dL Normal 8.5-10.1 [facility] Comment on above: Performed By: #### B RAMP LEAD, CMP, LIPA, TONI #### [facility] [address] [place] [address] Dr. Sayda Kapoor Chloride [Moles/Vol] 103 mmol/L Normal 98-107 [facility] Comment on above: Performed By: #### B RAMP LEAD, CMP, LIPA, TONI #### [facility] [address] [place] [address] Dr. Sayda Kapoor CO2 [Moles/Vol] 28.7 mmol/L Normal 21.0-32.0 [facility] Comment on above: Performed By: #### B RAMP LEAD, CMP, LIPA, TONI #### [facility] [address] [place] [address] Dr. Sayda Kapoor Creatinine [Mass/Vol] 1.61 mg/dL Critically high 0.70-1.30 [facility] Comment on above: Performed By: #### B RAMP LEAD, CMP, LIPA, TONI #### [facility] [address] [place] [address] Dr. Sayda Kapoor EGFR-AF KENYAN 53 mL/min/1.73m2 Critically low >=60 [facility] Comment on above: Performed By: #### B RAMP LEAD, CMP, LIPA, TONI #### [facility] [address] [place] [address] Dr. Sayda Kapoor EGFR-NON AF KENYAN 44 mL/min/1.73m2 Critically low >=60 [facility] Comment on above: Performed By: #### B RAMP LEAD, CMP, LIPA, TONI #### [facility] [address] [place] [address] Dr. Sayda Kapoor Globulin (S) [Mass/Vol] 3.6 g/dL Normal [facility] Comment on above: Performed By: #### B RAMP LEAD, CMP, LIPA, TONI #### [facility] [address] [place] [address] Dr. Sayda Kapoor Glucose [Mass/Vol] 130 mg/dL Critically high 74-106 [facility] Comment on above: Performed By: #### B RAMP LEAD, CMP, LIPA, TONI #### [facility] [address] [place] [address] Dr. Sayda Kapoor Potassium [Moles/Vol] 3.8 mmol/L Normal 3.5-5.1 [facility] Comment on above: Performed By: #### B RAMP LEAD, CMP, LIPA, TONI #### [facility] [address] [place] [address] Dr. Sayda Kapoor Protein [Mass/Vol] 6.7 g/dL Normal 6.4-8.2 [facility] Comment on above: Performed By: #### B RAMP LEAD, CMP, LIPA, TONI #### [facility] [address] [place] [address] Dr. Sayda Kapoor Sodium [Moles/Vol] 138 mmol/L Normal 136-145 [facility] Comment on above: Performed By: #### B RAMP LEAD, CMP, LIPA, TONI #### [facility] [address] [place] [address] Dr. Sayda Kapoor Urea nitrogen [Mass/Vol] 31.0 mg/dL Critically high 7.0-18.0 [facility] Comment on above: Performed By: #### B RAMP LEAD, CMP, LIPA, TONI #### [facility] [address] [place] [address] Dr. Sayda Kapoor Urea nitrogen/Creatinine [Mass ratio] 19.3 mg/mg Normal [facility] Comment on above: Performed By: #### B RAMP LEAD, CMP, LIPA, TONI #### [facility] [address] [place] [address] Dr. Sayda Kapoor AMYLASEon 03-08-2022 Amylase [Catalytic activity/Vol] 63 U/L Normal 25-115 [facility] Comment on above: Performed By: #### B RAMP LEAD, CMP, LIPA, TONI #### [facility] [address] [place] [address] Dr. Sayda Kapoor BNPon 03-08-2022 Natriuretic peptide B (Bld) [Mass/Vol] 47.0 pg/mL Normal <=900.0 [facility] Comment on above: Performed By: #### B RAMP LEAD, CMP, LIPA, TONI #### [facility] [address] [place] [address] Dr. Sayda Kapoor CBC AUTO DIFFon 03-08-2022 BASO # 0.0 103/ul Normal 0.0-0.1 [facility] Comment on above: Performed By: #### C MREP #### [facility] [address] [address] [address] Sayda Kapoor Basophils/100 WBC (Bld) 0.5 % Normal 0.2-2.0 [facility] Comment on above: Performed By: #### C MREP #### [facility] [address] [address] [address] Sayda Kapoor EO # 0.3 103/ul Normal 0.0-0.7 [facility] Comment on above: Performed By: #### C MREP #### [facility] [address] [place] [address] Dr. Sayda Kapoor Eosinophils/100 WBC (Bld) 3.1 % Normal 0.9-7.0 [facility] Comment on above: Performed By: #### C MREP #### [facility] [address] [place] [address] Dr. Sayda Kapoor Erythrocyte distribution width (RBC) [Ratio] 13.8 % Normal 11.0-15.0 [facility] Comment on above: Performed By: #### C MREP #### [facility] [address] [place] [address] Dr. Sayda Kapoor Hematocrit (Bld) [Volume fraction] 35.0 % Critically low 42.0-54.0 [facility] Comment on above: Performed By: #### C MREP #### [facility] [address] [place] [address] Dr. Sayda Kapoor Hemoglobin (Bld) [Mass/Vol] 11.3 g/dL Critically low 14.0-18.0 [facility] Comment on above: Performed By: #### C MREP #### [facility] [address] [place] [address] Dr. Sayda Kapoor IG # 0.05 10e3/ul Critically high 0.00-0.03 [facility] Comment on above: Performed By: #### C MREP #### [facility] [address] [place] [address] Dr. Sayda Kapoor IG % 0.6 % Critically high 0.0-0.5 [facility] Comment on above: Performed By: #### C MREP #### [facility] [address] [address] [address] Sayda Kapoor LYMPH # 1.0 103/ul Critically low 1.2-3.8 [facility] Comment on above: Performed By: #### C MREP #### [facility] [address] [address] [address] Sayda Kapoor Lymphocytes/100 WBC (Bld) 11.7 % Critically low 20.5-60.0 [facility] Comment on above: Performed By: #### C MREP #### [facility] [address] [address] [address] Sayda Kapoor MANUAL DIFF REQ NO Normal [facility] Comment on above: Performed By: #### C MREP #### [facility] [address] [place] [address] Dr. Sadya Kapoor MCH (RBC) [Entitic mass] 29.0 pg Normal 25.9-34.0 [facility] Comment on above: Performed By: #### C MREP #### [facility] [address] [place] [address] Dr. Sayda Kapoor MCHC (RBC) [Mass/Vol] 32.3 g/dL Normal 29.9-35.2 [facility] Comment on above: Performed By: #### C MREP #### [facility] [address] [place] [address] Dr. Sayda Kapoor MCV (RBC) [Entitic vol] 90.0 fL Normal 80.0-94.0 [facility] Comment on above: Performed By: #### C MREP #### [facility] [address] [place] [address] Dr. Sayda Kapoor MONO # 0.8 103/ul Normal 0.3-0.8 [facility] Comment on above: Performed By: #### C MREP #### [facility] [address] [address] [address] Sayda Kapoor Monocytes/100 WBC (Bld) 8.9 % Normal 1.7-12.0 [facility] Comment on above: Performed By: #### C MREP #### [facility] [address] [address] [address] Sayda Kapoor NEUT # 6.6 103/ul Critically high 1.4-6.5 [facility] Comment on above: Performed By: #### C MREP #### [facility] [address] [address] [address] Sayda Kapoor Neutrophils/100 WBC (Bld) 75.2 % Critically high 43.0-75.0 [facility] Comment on above: Performed By: #### C MREP #### [facility] [address] [address] [address] Sayda Kapoor Platelet mean volume (Bld) [Entitic vol] 8.9 fL Critically low 9.5-13.5 [facility] Comment on above: Performed By: #### C MREP #### [facility] [address] [address] [address] Sayda Kapoor PLT 317 103/ul Normal 150-450 [facility] Comment on above: Performed By: #### C MREP #### [facility] [address] [address] [address] Sayda Kapoor RBC 3.89 106/ul Critically low 4.70-6.10 [facility] Comment on above: Performed By: #### C MREP #### [facility] [address] [address] [address] Sayda Kapoor WBC 8.7 103/ul Normal 4.0-11.0 [facility] Comment on above: Performed By: #### C MREP #### [facility] [address] [address] [address] Sayda Kapoor IRONon 03-08-2022 Iron [Mass/Vol] 42.0 ug/dL Critically low 65.0-175.0 [facility] Comment on above: Performed By: #### B RAMP LEAD, CMP, LIPA, TONI #### [facility] [address] [address] [address] Sayda Kapoor LIPASEon 03-08-2022 Lipase [Catalytic activity/Vol] 80.0 U/L Normal 73.0-393.0 [facility] Comment on above: Performed By: #### B RAMP LEAD, CMP, LIPA, TONI #### [facility] [address] [place] [address] Dr. Sayda Kapoor PROF 14(COMP METB)on 022 Albumin [Mass/Vol] 3.3 g/dL Critically low 3.4-5.0 [facility] Comment on above: Performed By: #### B RAMP LEAD, CMP, LIPA, TONI #### [facility] [address] [place] [address] Dr. Sayda Kapoor Albumin/Globulin [Mass ratio] 0.8 {ratio} Normal [facility] Comment on above: Performed By: #### B RAMP LEAD, CMP, LIPA, TONI #### [facility] [address] [place] [address] Dr. Sayda Kapoor ALP [Catalytic activity/Vol] 70 U/L Normal 46-116 [facility] Comment on above: Performed By: #### B RAMP LEAD, CMP, LIPA, TONI #### [facility] [address] [place] [address] Dr. Sayda Kapoor ALT [Catalytic activity/Vol] 25 U/L Normal 16-63 [facility] Comment on above: Performed By: #### B RAMP LEAD, CMP, LIPA, TONI #### [facility] [address] [place] [address] Dr. Sayda Kapoor Anion gap [Moles/Vol] 13.7 mmol/L Normal [facility] Comment on above: Performed By: #### B RAMP LEAD, CMP, LIPA, TONI #### [facility] [address] [place] [address] Dr. Sayda Kapoor AST [Catalytic activity/Vol] 15 U/L Normal 15-37 [facility] Comment on above: Performed By: #### B RAMP LEAD, CMP, LIPA, TONI #### [facility] [address] [place] [address] Dr. Sayda Kapoor Bilirubin [Mass/Vol] 0.8 mg/dL Normal 0.2-1.0 [facility] Comment on above: Performed By: #### B RAMP LEAD, CMP, LIPA, TONI #### [facility] [address] [place] [address] Dr. Sayda Kapoor Calcium [Mass/Vol] 8.7 mg/dL Normal 8.5-10.1 [facility] Comment on above: Performed By: #### B RAMP LEAD, CMP, LIPA, TONI #### [facility] [address] [place] [address] Dr. Sayda Kapoor Chloride [Moles/Vol] 102 mmol/L Normal 98-107 [facility] Comment on above: Performed By: #### B RAMP LEAD, CMP, LIPA, TONI #### [facility] [address] [place] [address] Dr. Sayda Kapoor CO2 [Moles/Vol] 28.1 mmol/L Normal 21.0-32.0 [facility] Comment on above: Performed By: #### B RAMP LEAD, CMP, LIPA, TONI #### [facility] [address] [place] [address] Dr. Sayda Kapoor Creatinine [Mass/Vol] 2.04 mg/dL Critically high 0.70-1.30 [facility] Comment on above: Performed By: #### B RAMP LEAD, CMP, LIPA, TONI #### [facility] [address] [place] [address] Dr. Sayda Kapoor EGFR-AF KENYAN 40 mL/min/1.73m2 Critically low >=60 [facility] Comment on above: Performed By: #### B RAMP LEAD, CMP, LIPA, TONI #### [facility] [address] [place] [address] Dr. Sayda Kapoor EGFR-NON AF KENYAN 33 mL/min/1.73m2 Critically low >=60 [facility] Comment on above: Performed By: #### B RAMP LEAD, CMP, LIPA, TONI #### [facility] [address] [place] [address] Dr. Sayda Kapoor Globulin (S) [Mass/Vol] 3.9 g/dL Normal [facility] Comment on above: Performed By: #### B RAMP LEAD, CMP, LIPA, TONI #### [facility] [address] [place] [address] Dr. Sayda Kapoor Glucose [Mass/Vol] 120 mg/dL Critically high 74-106 [facility] Comment on above: Performed By: #### B RAMP LEAD, CMP, LIPA, TONI #### [facility] [address] [place] [address] Dr. Sayda Kapoor Potassium [Moles/Vol] 3.8 mmol/L Normal 3.5-5.1 [facility] Comment on above: Performed By: #### B RAMP LEAD, CMP, LIPA, TONI #### [facility] [address] [place] [address] Dr. Sayda Kapoor Protein [Mass/Vol] 7.2 g/dL Normal 6.4-8.2 [facility] Comment on above: Performed By: #### B RAMP LEAD, CMP, LIPA, TONI #### [facility] [address] [place] [address] Dr. Sayda Kapoor Sodium [Moles/Vol] 140 mmol/L Normal 136-145 [facility] Comment on above: Performed By: #### B RAMP LEAD, CMP, LIPA, TONI #### [facility] [address] [place] [address] Dr. Sayda Kapoor Urea nitrogen [Mass/Vol] 38.0 mg/dL Critically high 7.0-18.0 [facility] Comment on above: Performed By: #### B RAMP LEAD, CMP, LIPA, TONI #### [facility] [address] [place] [address] Dr. Sayda Kapoor Urea nitrogen/Creatinine [Mass ratio] 18.6 mg/mg Normal [facility] Comment on above: Performed By: #### B RAMP LEAD, CMP, LIPA, TONI #### [facility] [address] [place] [address] Dr. Sayda Kapoor Physician Referralon 022 Physician Referral [phone] [id number] Normal [facility] US SINGLE QUAD RT UPPERon [...] CL POTTS Date: 2022-03-08 17:27 Normal [facility] Reporton 01-26-2021 Cardiovascular Lab Report [facility] Patient Name: [facility] Ayo MR #: [id number] Department of Physician: Fatuma Garcia M.D. Division of Service Date: 01/26/2021 Cardiology Birthdate: 1960 Adult Cardiovascular Room #: [facility] [address] [place] [address] Cardiovascular Laboratory Report FINAL IMPRESSIONS: 1. Severe, [...] area of myocardium. 6. Follow up with [facility] Cardiology in the [facility] in the next 2 to 3 [...] the right radial artery was obtained. A 6-Malian glide sheath was inserted without difficulty. Bilateral selective coronary angiography was performed using a 6-Malian TIG catheter. After reviewing the images, it was elected to proceed with an interventional procedure. A 6-Malian XB3.0 guide catheter was advanced in over [...] He was to be transferred to the [facility] in stable condition. FINDINGS: Hemodynamics. AO [...] in (more content not included)... Normal [facility] CORONAVIRUS 2019 BY PCRon CORONAVIRUS 2019,PCR DETECTED Abnormal Not Detected [facility] Comment on above: Order Comment: COVID [...] patient management decisions. Fact sheet for providers: https://www.fda.gov/media/343176/download Fact sheet for patients: https://www.fda.gov/media/227348/download This test has received FDA Emergency Use Authorization (EUA) and has been verified by [facility] ([facility]). This test is only authorized for the duration of time that circumstances exist to justify the authorization of the emergency use of in vitro diagnostic tests for the detection of SARS-CoV-2 virus and/or diagnosis of COVID-19 infection under section 564(b)(1) of the Act, 21 U.S.C. 360bbb-3(b)(1), unless the authorization is terminated or revoked sooner. [facility] is certified under CLIA-88 as qualified to perform high complexity testing. Testing is performed in the [facility] laboratories [place] at [address] [place] [address]. COVID CALLED TO RICHARD , 07/21/2020 16:56 Performed By: #### C OV19 #### [facility] [address] [place] [address] EMPLOYED IN HEALTHCARE? Unknown Normal [facility] Comment on above: Order Comment: COVID CALLED TO RICHARD , 07/21/2020 16:56 Performed By: #### C OV19 #### [place] [address] [place] [address] FIRST COVID NASAL SWAB TEST? Unknown Normal [facility] Comment on above: Order Comment: COVID CALLED TO RICHARD , 07/21/2020 16:56 Performed By: #### C OV19 #### [facility] [address] [place] [address] HOSPITALIZED (OR PLANNED TO BE ADMITTED)? Unknown Normal [facility] Comment on above: Order Comment: COVID CALLED TO RICHARD , 07/21/2020 16:56 Performed By: #### C OV19 #### [facility] [address] [place] [address] ICU? Unknown Normal [facility] Comment on above: Order Comment: COVID CALLED TO RICHARD , 07/21/2020 16:56 Performed By: #### C OV19 #### [facility] [address] [place] [address] RESIDENT IN CONGREGATE CARE SETTING? Unknown Normal [facility] Comment on above: Order Comment: COVID CALLED TO RICHARD , 07/21/2020 16:56 Performed By: #### C OV19 #### [facility] [address] [place] [address] SYMPTOMATIC DEFINED BY CDC? Unknown Normal [facility] Comment on above: Order Comment: COVID CALLED TO RICHARD , 07/21/2020 16:56 Performed By: #### C OV19 #### [facility] [address] [place] [address] Covid 19 Resultson 0 Covid 19 Results [...] available, clean hands with an alcohol-based hand parachute supervisor that contains at least 60% alcohol. Remember [...] 20 seconds or use an alcohol-based hand parachute supervisor that contains at least 60% alcohol. Avoid [...] 21-Jul-2020 16:32 by [employer] (ADMIN) Normal [facility] CORONAVIRUS 2019 BY PCRon Lab Specimen Source Nasal, Nasopharyngeal Normal [facility] Comment on above: Order Comment: COVID CALLED TO RICHARD , 07/21/2020 16:56 Performed By: #### C OV19 #### [facility] [address] [place] [address] Vital Signs Date Time Vital Sign Value Performing Clinician Facility 12-06-2024 13:13-0400 Body height 172.72 cm [facility] 12-06-2024 13:13-0400 Body mass index (BMI) [Ratio] 30.4 kg/m2 [facility] 12-06-2024 13:13-0400 Body weight 90.71 kg [facility] 08-20-2024 10:37-0500 Body temperature 97.3 [degF] Cuba Haywood MD Work Phone: [facility] 08-20-2024 10:37-0500 Diastolic blood pressure 71 mm[Hg] Cuba Haywood MD Work Phone: [facility] 08-20-2024 10:37-0500 Heart rate 77 /min Cuba Haywood MD Work Phone: [facility] 08-20-2024 10:37-0500 SaO2% (BldA) [Mass fraction] 98 % Cuba Haywood MD Work Phone: [facility] 08-20-2024 10:37-0500 Systolic blood pressure 150 mm[Hg] Cuba Haywood MD Work Phone: [facility] 06-04-2024 12:19-0400 Body temperature 97.81 [degF] Pearl Calderon MANAGER ORDER.CHECKERING MACHINE ADJUSTER Work Phone: [facility] 06-04-2024 12:19-0400 Diastolic blood pressure 99 mm[Hg] Pearl Calderon MANAGER ORDER.CHECKERING MACHINE ADJUSTER Work Phone: [facility] Comment on above: states stressed from driving 06-04-2024 12:19-0400 Heart rate 69 /min Pearl Calderon MANAGER ORDER.CHECKERING MACHINE ADJUSTER Work Phone: [facility] 06-04-2024 12:19-0400 SaO2% (BldA) [Mass fraction] 99 % Pearl Calderon MANAGER ORDER.CHECKERING MACHINE ADJUSTER Work Phone: [facility] 06-04-2024 12:19-0400 Systolic blood pressure 137 mm[Hg] Pearl Calderon MANAGER ORDER.CHECKERING MACHINE ADJUSTER Work Phone: [facility] Comment on above: states stressed from driving 04-30-2024 14:23-0400 Diastolic blood pressure 75 mm[Hg] Pacc 1 Work Phone: [facility] 04-30-2024 14:23-0400 Systolic blood pressure 145 mm[Hg] Pacc 1 Work Phone: [facility] 04-30-2024 13:37-0400 Body height 172.7 cm Pacc 1 Work Phone: [facility] 04-30-2024 13:37-0400 Body mass index (BMI) [Ratio] 26.68 kg/m2 Pacc 1 Work Phone: [facility] 04-30-2024 13:37-0400 Body temperature 98.29 [degF] Pacc 1 Work Phone: [facility] 04-30-2024 13:37-0400 Body weight 79.6 kg Pac 1 Work Phone: [facility] 04-30-2024 13:37-0400 Heart rate 66 /min Pac 1 Work Phone: [facility] 04-30-2024 13:37-0400 SaO2% (BldA) [Mass fraction] 98 % Pac 1 Work Phone: [facility] 04-28-2024 12:22-0400 Body height 172.7 cm Cuba Haywood MD Work Phone: [facility] 04-28-2024 12:22-0400 Body mass index (BMI) [Ratio] 25.85 kg/m2 Cuba Haywood MD Work Phone: [facility] 04-28-2024 12:22-0400 Body temperature 97.5 [degF] Cuba Haywood MD Work Phone: [facility] 04-28-2024 12:22-0400 Body weight 77.11 kg Cuba Haywood MD Work Phone: [facility] 04-28-2024 12:22-0400 Diastolic blood pressure 63 mm[Hg] Cuba Haywood MD Work Phone: [facility] 04-28-2024 12:22-0400 Heart rate 61 /min Cuba Haywood MD Work Phone: [facility] 04-28-2024 12:22-0400 SaO2% (BldA) [Mass fraction] 99 % Cuba Haywood MD Work Phone: [facility] 04-28-2024 12:22-0400 Systolic blood pressure 131 mm[Hg] Cuba Haywood MD Work Phone: [facility] 04-05-2024 10:21-0400 Body height 172.72 cm MD Perico Mccabe Work Phone: [facility] 04-05-2024 10:21-0400 Body mass index (BMI) [Ratio] 25.8 kg/m2 MD Perico Mccabe Work Phone: [facility] 04-05-2024 10:21-0400 Body weight 77.11 kg MD Perico Mccabe Work Phone: [facility] 09-11-2023 15:00-0500 Body height 172.72 cm Enoch Carnes Other [employer] Other 09-11-2023 15:00-0500 Body mass index (BMI) [Ratio] 32.38 kg/m2 Enoch Carnes Other [employer] Other 09-11-2023 15:00-0500 Body weight 96.62 kg Enoch Carnes Other [employer] Other 08-27-2023 13:07-0500 Body height 172.7 cm Pm 2 [employer] 08-27-2023 13:07-0500 Body mass index (BMI) [Ratio] 28.13 kg/m2 Pm 2 [employer] 08-27-2023 13:07-0500 Body weight 83.92 kg Pm 2 [employer] 04-23-2023 10:45-0400 Body height 172.72 cm Enoch Carnes Other [employer] Other 04-23-2023 10:45-0400 Body mass index (BMI) [Ratio] 32.37 kg/m2 Enoch Carnes Other [employer] Other 04-23-2023 10:45-0400 Body weight 96.57 kg Enoch Carnes Other [employer] Other 04-23-2023 10:45-0400 Diastolic blood pressure 84 mm[Hg] Enoch Carnes Other [employer] Other 04-23-2023 10:45-0400 Systolic blood pressure 184 mm[Hg] Enoch Carnes Other [facility] [employer] Other 07-09-2022 15:30-0500 Body height 172.72 cm Enoch Carnes Other [facility] [employer] Other 07-09-2022 15:30-0500 Body mass index (BMI) [Ratio] 27.52 kg/m2 Enoch Carnes Other [facility] [employer] Other 07-09-2022 15:30-0500 Body weight 82.1 kg Enoch Carnes Other [facility] [employer] Other 05-27-2022 15:44-0400 Body weight 0 kg MD Perico Mccabe Work Phone: [facility] 04-01-2022 15:06-0400 Blood Pressure Location Javid NILL [facility] [place] 04-01-2022 15:06-0400 Diastolic blood pressure 74 mm[Hg] Javid NILL [facility] [place] 04-01-2022 15:06-0400 Heart rate 58 /min Javid NILL [facility] [place] 04-01-2022 15:06-0400 Respiratory rate 16 /min Javid NILL [facility] [place] 04-01-2022 15:06-0400 Systolic blood pressure 124 mm[Hg] Javid NILL [facility] [place] Encounters Encounter Date Encounter Type Care Provider Facility Start: 01-04-2025 End: 01-04-2025 ambulatory [facility] Start: 12-06-2024 End: 12-06-2024 ambulatory [facility] Work Phone: Start: 12-06-2024 End: 12-06-2024 Patient encounter procedure [facility] Work Phone: Start: 08-20-2024 End: 08-20-2024 ambulatory CUBA HAYWOOD Facility:[facility] Start: 08-20-2024 End: 08-20-2024 Patient encounter procedure Cuba Haywood MD Work Phone: Colorectal Surgery Comment on above: Follow-up examinatio n after colorectal surgery (Primary Dx) Start: 07-20-2024 End: 07-20-2024 ambulatory [facility] Start: 06-04-2024 End: 06-04-2024 ambulatory CUBA HAYWOOD Facility:[facility] Start: 06-04-2024 End: 06-04-2024 Patient encounter procedure Pearl Calderon APRN.CNP Work Phone: Colorectal Surgery Comment on above: Follow-up examinatio n after colorectal surgery (Primary Dx) Start: 05-13-2024 End: 05-18-2024 Evaluation and management of inpatient CUBA HAYWOOD Facility:[facility] Start: 05-04-2024 End: 05-07-2024 Telephone encounter Dolly Nelson APRN.CNP Work Phone: Pre Anesthesia Comment on above: Anesthesia Consult Start: 04-30-2024 End: 04-30-2024 Admission to establishment [facility]acc [place] 1 Work Phone: Pre Anesthesia Start: 04-30-2024 End: 04-30-2024 Anesthesia consultation [facility] [place] 1 Work Phone: Pre Anesthesia Comment on above: Pre-op evaluation (P rimary Dx); Hyperlipidemia, unspecified hyperlipidemia type; Atrial fibrillation, unspecified type (HCC); Atherosclerosis of [place] coronary artery of [place] heart, unspecified whether angina present; Gastroesophageal reflux disease, unspecified whether esophagitis present; Essential hypertension Start: 04-30-2024 End: 04-30-2024 Preprocedural examination done [place] [address] Work Phone: [facility] Work Phone: Start: 04-30-2024 End: 04-30-2024 ambulatory CUBA HAYWOOD Facility:[facility] Start: 04-30-2024 Encounter for other preprocedural examination CUBA HAYWOOD [facility] Start: 04-28-2024 End: 04-28-2024 ambulatory CUBA HAYWOOD Facility:[facility] Start: 04-28-2024 End: 04-28-2024 Patient encounter procedure Cuba Haywood MD Work Phone: Colorectal Surgery Comment on above: Crohn's disease of b oth small and large intestine without complication (HCC) (Primary Dx) Start: 04-16-2024 End: 04-16-2024 Patient encounter procedure MD Perico Mccabe Work Phone: [facility] [place] Work Phone: Start: 04-16-2024 End: 04-16-2024 ambulatory MD Perico Mccabe Work Phone: [facility] Work Phone: Start: 04-05-2024 End: 04-05-2024 Patient encounter procedure MD Perico Mccabe Work Phone: [facility] Work Phone: Start: 10-01-2023 End: 10-01-2023 Evaluation and management of inpatient ZOIEYi BARNHART [facility] Start: 09-30-2023 End: 09-30-2023 Evaluation and management of inpatient LETHAASAF MONTOYA [facility] Start: 09-16-2023 End: 09-16-2023 Evaluation and management of inpatient ZOIE D [facility] Start: 09-16-2023 End: 09-16-2023 Evaluation and management of inpatient LETHA MONTOYA [facility] Start: 09-11-2023 End: 09-11-2023 ambulatory Enoch Carnes Other [employer] Other Start: 09-11-2023 Office outpatient vi sit 25 minutes Enoch Carnes [facility] Start: 09-11-2023 Telephone encounter Enoch velazquez [facility] Start: 08-27-2023 End: 08-28-2023 ambulatory CUBA Sandoval THOM [facility] Start: 08-27-2023 Encounter for other preprocedural examination LETHA MONTOYA [facility] Start: 08-27-2023 End: 08-27-2023 Patient encounter procedure [facility] Pre-Admission Testing [facility] Comment on above: Preop examination (P rimary Dx); Coronary artery disease, unspecified vessel or lesion type, unspecified whether angina present, unspecified whether [place] or transplanted heart Start: 08-27-2023 End: 08-27-2023 Preprocedural examination done Pm 2 [facility] Start: 05-19-2023 End: 05-19-2023 ambulatory Enoch Carnes Other [employer] Other Start: 05-19-2023 Telephone encounter Enoch velazquez [facility] Start: 04-24-2023 End: 04-24-2023 ambulatory Enoch Carnes Other [employer] Other Start: 04-24-2023 Telephone encounter Enoch velazquez [facility] Start: 04-23-2023 Office outpatient vi sit 25 minutes Enoch Carnes [facility] Start: 04-23-2023 Telephone encounter Enoch velazquez [facility] Start: 04-23-2023 End: 04-23-2023 Patient encounter procedure MD Perico Mccabe Work Phone: [facility] [place] Work Phone: Start: 04-23-2023 End: 04-23-2023 ambulatory MD Perico Mccabe Work Phone: [employer] Other Start: 11-04-2022 Encounter for other preprocedural examination ROSALINA LABOY [facility] Start: 11-04-2022 Encounter for preprocedural laboratory examination ROSALINA LABOY [facility] Start: 11-01-2022 End: 11-02-2022 ambulatory ROSALINA LABOY Facility:[facility] Start: 11-01-2022 End: 11-02-2022 Encounter for preprocedural laboratory examination ROSALINA LABOY Facility:[facility] Start: 10-24-2022 Encounter for other preprocedural examination ROSALINA LABOY [facility] Start: 10-21-2022 End: 10-23-[address] PERICO MCCABE . Facility:[facility] Start: 10-19-2022 End: 10-20-2022 ambulatory CL POTTS Facility:[facility] Start: 10-19-2022 End: 10-20-2022 Encounter for other preprocedural examination CL POTTS Facility:[facility] Start: 09-05-2022 End: 09-05-2022 ambulatory Enoch Carnes Other [employer] Other Start: 09-05-2022 Telephone encounter Enoch velazquez [facility] Start: 07-26-2022 End: 07-27-[address] Rose CARNES Facility:[facility] Start: 07-24-2022 End: 07-24-2022 ambulatory Enoch Carnes Other [employer] Other Start: 07-24-2022 Telephone encounter Enoch velazquez [facility] Start: 07-11-2022 End: 07-12-[address] PERICO MCCABE . Facility:[facility] Start: 07-09-2022 End: 07-09-2022 ambulatory Enoch Carnes Other [employer] Other Start: 07-09-2022 Office outpatient ne w 45 minutes Enoch Carnes [facility] Start: 07-04-2022 End: 07-05-[address] PERICO MCCABE . Facility:[facility] Start: 06-22-2022 End: 06-23-[address] PERICO MCCABE . Facility:[facility] Start: 06-10-2022 End: 06-10-2022 ambulatory MD Perico Mccabe Work Phone: [facility] Work Phone: Start: 06-10-2022 End: 06-10-2022 Patient encounter procedure MD Perico Mccabe Work Phone: [facility] Start: 05-27-2022 End: 05-27-2022 ambulatory Enoch Carnes Other [employer] Other Start: 05-27-2022 Telephone encounter Enoch Lizama [facility] Start: 05-08-2022 End: 05-09-2022 ambulatory Javid WILLIS Facility:CD:[id number] Start: 05-04-2022 End: 05-05-[address] PERICO MCCABE . Facility: Start: 04-13-2022 End: 04-14-[address] PERICO CMCABE . Facility:[facility] Start: 04-01-2022 End: 04-01-2022 Patient encounter procedure Javid WILLIS [facility] [place] Start: 04-01-2022 End: 04-02-2022 ambulatory Javid WILLIS Facility:[facility] Start: 03-13-2022 End: 03-14-[address] PERICO MCCABE . Facility: Start: 03-08-2022 End: 03-09-[address] PERICO MCCABE . Facility:[facility] Start: 01-26-2021 End: 01-27-2021 ambulatory PHYSICIAN UNKNOWN Facility:[facility] Procedures Date Procedure Procedure Detail Performing Clinician Start: 04-30-2024 Antibody screen CUBA NOGUERA Comment on above: Order Comment: Speci men Type: BLOOD SPECIMEN Ordering Facility: [facility] Address: [address] [place] [address] Performed By: #### T [id number] #### [facility] BLOOD BANK [facility] [id number] [place] [address] [place] Start: 04-16-2024 CT of [...] Author Start: 05-15-2027 Diabetes Screening Diabetes Screenin [facility] Start: 04-30-2027 Diabetes Screening Diabetes Screenin [facility] Start: 08-27-2024 Adult BMI Screening Adult BMI Screen ing [facility] Start: 08-27-2024 Tobacco Screening Tobacco Screening [facility] Start: 08-20-2024 End: 08-20-2024 Patient encounter procedure 08/20/2024 10:40 AM EST Office Visit Colorectal Surgery [address] [place], [place] [id number] Cuba Haywood MD [address] [place] [address] EST 3 mo f/u Open Malay Hand Assist Ileocolic resection Colorectal Surgery Comment on above: EST 3 mo f/u Open La o Hand Assist Ileocolic resection Start: 05-13-2024 End: 05-13-2024 Admission to same day surgery center 05/13/2024 7:30 AM EDT - 05/13/2024 9:50 AM EDT Surgery [facility] Operating Room [address] [place] [id number] [place] [address] [address] LAPAROSCOPY ENTERECTOMY RESECTION SMALL INTESTINE, SINGLE RESECTION AND ANASTOMOSIS [facility] Comment on above: LAPAROSCOPY ENTERECT [...] physician 05/13/2024 7:30 AM EDT Hospital Encounter [facility] Operating Room [address] [place], [place] [id number] [place] [address] [address] Crohn's disease of both small and large intestine without complication (HCC) [K50.80] [facility] Comment on above: Crohn's disease of b oth small and large intestine without complication (HCC) [K50.80] Start: 05-02-2024 Covid-19 Vaccine ( season) Covid-19 Vaccine ( season) [facility] Start: 05-02-2024 Covid-19 Vaccine ( season) Covid-19 Vaccine ( season) [facility] Start: 05-02-2024 Influenza vaccination Influenza Vacc ine (#1) [facility] Start: 04-30-2024 End: 07-30-2024 CONFIRM BLOOD TYPE [facility] Comment on above: Expected: 04/30/2024 , Expires: 07/30/2024 Start: 04-30-2024 End: 07-30-2024 TYPE AND SCREEN,30 DAY [facility] Work Phone: Comment on above: Expected: 04/30/2024 , Expires: 07/30/2024 Start: 04-30-2024 End: 04-30-2024 Anesthesia consultation 04/30/2024 1:40 PM EDT PAT Pre Anesthesia [address] [place] [address] 1, Pacc [place] [address] [place] [address] LAPAROSCOPY ENTERECTOMY RESECTION SMALL INTESTINE, SINGLE RESECTION [...] complication (HCC) Expected: 04/29/2024 (Approximate), Expires: 07/29/2024 [facility] Work Phone: Comment on above: Expected: 04/29/2024 (Approximate), Expires: 07/29/2024 Start: 04-29-2024 End: 07-29-2024 Comprehensive metabolic 2000 panel - Serum or Plasma COMPREHENSIVE METABOLIC PANEL Lab Routine Crohn's disease of both small and large intestine without complication (HCC) Expected: 04/29/2024 (Approximate), Expires: 07/29/2024 [facility] Comment on above: Expected: 04/29/2024 (Approximate), Expires: 07/29/2024 Start: 2024 Advance Directive Discussion Advance Directive Discussion [facility] Start: 2024 Pneumococcal Vaccine : 65+ (1 of 1 - PCV) Pneumococcal Vaccine: 65+ (1 of 1 - PCV) [facility] Start: 09-30-2023 End: 09-30-2023 Admission to same day surgery center 09/30/2023 3:00 PM EST - 09/30/2023 3:45 PM EST Surgery [facility] - Surgery [address] [place] [phone] Letha Montoya MD [address] [place] [address] EXTRACTION CATARACT INTRAOCULAR LENS [23204 (CPT )] [facility] Comment on above: EXTRACTION CATARACT INTRAOCULAR LENS [28445 (CPT )] Start: 09-30-2023 Subsequent hospital visit by physician 09/30/2023 3:00 PM EST Hospital Encounter [facility] [address] [place] [phone] Letha Mnotoya MD [address] [place] [address] [phone] [facility] Start: 09-30-2023 End: 09-30-2023 Xcapsl ctrc rmvl insj io lens prosth w/o ecp EXTRACTION CATARACT INTRAOCULAR LENS cataract left eye 09/30/2023 3:00 PM EST [facility] Start: 09-29-2023 End: 09-29-2023 ambulatory 09/29/2023 4:00 PM EST Support Visit [facility] Admit [address] [place] [address] [facility] Start: 09-16-2023 End: 09-16-2023 Admission to same day surgery center 09/16/2023 3:00 PM EST - 09/16/2023 3:45 PM EST Surgery [facility] [address] [place] [phone] Letha Montoya MD [address] [place] [address] [phone] EXTRACTION CATARACT INTRAOCULAR LENS [83778 (CPT )] [facility] Comment on above: EXTRACTION CATARACT INTRAOCULAR LENS [83569 (CPT )] Start: 09-16-2023 Subsequent hospital visit by physician 09/16/2023 3:00 PM EST Hospital Encounter [facility] [address] [place] [address] Letha Montoya MD [address] [place] [address] [facility] Start: 09-16-2023 End: 09-16-2023 Xcapsl ctrc rmvl insj io lens prosth w/o ecp EXTRACTION CATARACT INTRAOCULAR LENS cataract right eye 09/16/2023 3:00 PM [facility] Start: 05-02-2023 Covid-19 Vaccine ( season) Covid-19 Vaccine ( season) [facility] Start: 05-02-2023 Influenza vaccination Influenza Vacc ine [facility] Start: 06-10-2022 [facility] Start: 2019 RSV Vaccine (1 - 1-d ose 60+ series) RSV Vaccine (1 - 1-dose 60+ series) [facility] Start: 2019 RSV Vaccine (1 - Ris k 60-74 years 1-dose series) RSV Vaccine (1 - Risk 60-74 years 1-dose series) [facility] Start: 2014 Prostate specific antigen measurement Prostate Cancer Screening Discussion [facility] Start: 2009 Administration of varicella zoster vaccine Zoster (Shingles) Vaccine (1 of 2) [facility] Start: 2009 Shingrix Vaccine (1 of 2) Shingrix Vaccine (1 of 2) [facility] Start: 2004 Diabetes Screening Diabetes Screenin g [facility] Start: 2004 Screening for malign ant neoplasm of colon [facility] Start: 1994 Lipid panel Lipid Screening [facility] Start: 1978 DTaP,Tdap and Td Vaccines (1 - Tdap) DTaP,Tdap and Td Vaccines (1 - Tdap) [facility] Start: 1978 Pneumococcal Vaccine : 50+ (1 of 2 - PCV) Pneumococcal Vaccine: 50+ (1 of 2 - PCV) [facility] Start: 1978 Shingrix Vaccine (1 of 2) Shingrix Vaccine (1 of 2) [facility] Start: 1978 Urine microalbumin profile DTaP,Tdap,Td Vaccine (1 - Tdap) [facility] Start: 1977 Adult BMI Follow Up Plan Adult BMI Follow Up Plan [facility] Start: [address] Recorder cindy Disease Visit Annual PCP Team Chronic Disease Visit [facility] Start: 1977 Anxiety Screening Anxiety Screening [facility] Start: 1977 BP Controlled (<130/80) BP Controlle d (<130/80) [facility] Start: 1977 Depression Screening Depression Scre ening [facility] Start: 1977 Hepatitis B surface antibody level LDL Cholesterol [facility] Start: 1977 Hepatitis C screening Hepatitis C Sc reening [facility] Start: 1977 HIV screening HIV Screening [facility] Start: 1971 Depression Screening Depression Scre ing [facility] Start: 1965 Pneumococcal Vaccine : 65+ (1 of 2 - PCV) Pneumococcal Vaccine: 65+ (1 of 2 - PCV) [facility] ECG COMPLETE ECG COMPLETE ECG Routine Pre-op evaluation Ordered: 04/30/2024 [facility] Comment on above: Ordered: 04/30/2024 Payers Date Payer Category Payer Medicare [facility] MEDICARE [facility] MEDICARE ADVANTAGE PPO [id number] 2024-Present [phone] [address] [address] [place] [address] PPO [id number] 2024 Private Health Insurance [id number] 2023 Self-pay [id number] 2019 Unknown [employer] M MO SUPERMED [id number] 2019-Present [phone] [address] [place] [address] [id number] 1959 Self-pay [id number] 1959 Unknown [id number] 1959 Unknown [id number] 2.16.840.1.339114.3.579.2. 647 1959 Unknown [id number] 2.16.840.1.629359.3.579.2. 727 1959 Unknown [id number] 2.16.840.1.717587.3.579.2. 727 1959 Unknown [id number] 2.16.840.1.892226.3.579.2. 593 1959 Unknown [id number] 2.16.840.1.371233.3.579.2. 593 1959 Unknown [id number] 2.16.840.1.124997.3.579.2. 593 1959 Unknown [id number] 2.16.840.1.872225.3.579.2. 593 1959 Unknown [id number] 2.16.840.1.791389.3.579.2. 593 1959 Unknown [id number] 2.16.840.1.164402.3.579.2. 593 1959 Unknown [id number] 2.16.840.1.080448.3.579.2. 593 1959 Unknown [id number] 2.16.840.1.585876.3.579.2. 593 1959 Unknown [id number] 2.16.840.1.530658.3.579.2. 593 1959 Unknown [id number] 2.16.840.1.397689.3.579.2. 593 1959 Unknown [id number] 2.16.840.1.976864.3.579.2. 593 1959 Unknown [id number] 2.16.840.1.517725.3.579.2. 593 1959 Unknown [id number] 2.16.840.1.359644.3.579.2. 593 1959 Unknown [id number] 2.16.840.1.621467.3.579.2. 593 1959 Unknown [id number] 2.16.840.1.659718.3.579.2. 593 1959 Unknown [id number] 2.16.840.1.937219.3.579.2. 1286 1959 Unknown [id number] 2.16.840.1.082285.3.579.2. 1286 1959 Unknown [id number] 2.16.840.1.705906.3.579.2. 1286 1959 Unknown [id number] 2.16.840.1.169934.3.579.2. 128 1959 Unknown [id number] 2.16.840.1.585707.3.579.2. 1286 1959 Unknown [id number] 2.16.840.1.024217.3.579.2. 1286 1959 Unknown [id number] 2.16.840.1.046530.3.579.2. 1286 1959 Unknown [id number] 2.16.840.1.297507.3.579.2. 1286 Unknown Brent BC/PEDRITO [id number] Unknown [id number] 2.16.840.1.445101.3.579.2. 531 Unknown [id number] 2.16.840.1.185467.3.579.2. 531 Social History Date Type Detail Facility Start: 04-01-2022 End: 12-06-2024 Tobacco smoking status Never smoked tobacco (finding) [facility] [place] Tobacco smoking status Never [facility] [place] Start: 09-26-2020 End: 04-29-2024 Sex Assigned At Male Anegl [facility] [place] Start: 1960 Sex Assigned At Male Kristin [facility] Start: 01-12-2024 [facility] unknown (finding) [facility] Start: 02-12-2021 End: 08-27-2023 Tobacco use and exposure Smokeless tobacco non-user [facility] Start: 08-27-2023 End: 04-29-2024 Alcoholic beverage intake [facility] Start: 09-26-2020 End: 04-29-2024 History of Social function [facility] Start: 1960 Sex assigned at Not on file [employer] Has the [employer], or [employer] threatened to shut off services in your home in past 12Mo No [facility] (I/We) worried [facility] (my/our) food would run out before (I/we) got money to buy more. Never true [facility] Start: 08-27-2023 Alcohol Comment very rare [facility] Start: 12-06-2024 Sex Male (finding) [facility] Medical Equipment Procedure Code Equipment Code Equipment Origin al Text Equipment Identifier Dates Capsule endoscopy, for patency of lumen evaluation Video capsule endoscopy system ([id number] [facility] Start: 06-10-2022 Goals Date Patient Goal Desired Activity /State Functional Status Date Assessment Result Facility 04-01-2022 Functional Status N/A [facility] [place] Clinical Notes 05-08-2022 to 01-04-2025 Cuba Haywood MD - 08/20/2024 10:40 AM Pearl Lizarraga APRN.CHECKERING MACHINE ADJUSTER - 06/04/2024 12:20 PM Arleen Tanner OCCA - 06/04/2024 12:19 PM Arleen Tanner, TIMOTHYA - 06/04/2024 12:19 PM EDT Note Date & Type Note Facility 01-04-2025 Note [facility] Cardiology Clinic Note Chief Complaint: HPI: Ayo [...] intravascular lithotripsy and (more content not included)... [facility] 08-20-2024 History of Presen t [...] spasms. 15 tablet 0 adalimumab (HUMIRA,CF, PEN EBHBFI-[id number]) 80 mg/0.8 mL pen kit Inject 80 [...] MD Colorectal Surgery documented in this encounter [facility] 08-20-2024 Note HNO ID: [id number] Author: CUBA HAYWOOD MD Service: ? Author [...] spasms. 15 tablet 0 adalimumab (HUMIRA,CF, PEN LYNNEL-YK-DS) 80 mg/0.8 mL pen kit Inject 80 [...] treatment plan: mauricio Haywood MD Colorectal Surgery [facility] 07-20-2024 Note Pt is here for [facility] follow up. Review of Systems Constitutional: Positive for malaise/fatigue. Musculoskeletal: Positive for arthritis, back pain, joint pain and myalgias. Gastrointestinal: Positive for abdominal pain. Neurological: Positive for light-headedness ( occasional ). All other systems reviewed and are negative. 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 [facility] 06-04-2024 History of Presen t illness Narrative COLORECTAL SURGERY June 04, 2024 Ayo Alicia 64 year old This consult was requested by Dr. Haywood and my final recommendations will be communicated to the requesting health care provider by way of the shared medical record for internal providers or letter via the [employer] for external providers. Chief Complaint: [...] spasms. 15 tablet 0 adalimumab (HUMIRA,CF, PEN PSLCZY-KL-GZ) 80 mg/0.8 mL pen kit Inject 80 [...] APRN.CNP Colorectal Surgery documented in this encounter [facility] 06-04-2024 Note HNO ID: [id number] Author: PEARL CALDERON APRN.CNP Service: ? Author Type: Nurse Practitioner Type: Progress Notes Filed: 06/04/2024 12:46 Note Text: COLORECTAL SURGERY June 04, 2024 Ayo Alicia 64 year old This consult was requested by Dr. Haywood and my final recommendations will be communicated to the requesting health care provider by way of the shared medical record for internal providers or letter via the [employer] for external providers. Chief Complaint: [...] spasms. 15 tablet 0 adalimumab (HUMIRA,CF, PEN YZHVJW-MK-DO) 80 mg/0.8 mL pen kit Inject 80 [...] 3 months, scheduled (more content not included)... [facility] 06-04-2024 Nurse Note What is the reason for your visit today? Post op Who is your referring physician? Are you having poor oral intake? NO Have you had unintentional weight loss of 15 lbs/7 Kg in the last 3-6 months? NO Bowels: regular or soft Wound: clean & dry Temperature: No Drains: No [facility] 06-04-2024 Nurse Note What is the reason for your visit today? Post op Who is your referring physician? Are you having poor oral intake? NO Have you had unintentional weight loss of 15 lbs/7 Kg in the last 3-6 months? NO Bowels: regular or soft Wound: clean & dry Temperature: No Drains: No documented in this encounter [facility] 05-18-2024 Note HNO ID: [id number] Author: ?, ?, ? Service: ? Author Type: ? Type: Plan of Care Filed: 05/18/2024 18:00 Note Text: PHARMACY BEDSIDE DELIVERY SERVICE Patient Name: Ayo Alicia The marked outpatient medications were Filled at: [facility] and delivered to the patient's bedside to [place] [address]. Medication List START taking these medications DIGESTIVE [...] tablet Commonly known as: COREG HUMIRA(CF) PEN NTOVHH-RX-BY 80 mg/0.8 mL pen kit Generic drug: [...] neomycin 500 mg tablet Lis Herbert PAGER: [phone] May 18, 2024 5:59 PM [facility] 05-18-2024 Note HNO ID: [id number] Author: NASIM JENKINS LSW Service: Care Management Author Type: Flight Kitchen Manager Type: Care Mgt Progress Note Filed: 05/18/2024 [...] Primary Care Physician Name/Phone: Perico Mccabe MD [phone] Additional Information: Patient is ambulating the sotelo unassisted with no DME. No skilled needs. SIGNATURE: FIDELINA Lara PATIENT NAME: Ayo Alicia DATE: May 18, 2024 TIME: 1:20 PM CONTACT #: [phone] IMM Follow Up Copy Given: Yes Copy given to:: Patient Method: In Person [facility] 05-18-2024 Note HNO ID: [id number] Author: AMADA PETTIT MD Service: Colorectal Author [...] Surgery Resident, PGY-2 05/18/2024 7:57 AM Pager: [phone] SUBJECTIVE: - No acute events overnight - [...] 12.88* HB 8.4* HCT 27.6* PLT 382 [facility] 05-17-2024 Note HNO ID: [id number] Author: AMADA PETTIT MD Service: Colorectal Author [...] Surgery Resident, PGY-2 05/17/2024 5:58 AM Pager: [phone] SUBJECTIVE: - No acute events overnight - [...] -- 1.9 -- CA -- 8.3* -- [facility] 05-16-2024 Note HNO ID: [id number] Author: VANITA CLAIRE RN Service: Care Management Author Type: Registered Nurse Type: Care Mgt Progress Note Filed: 05/16/2024 16:09 Note Text: CARE MANAGEMENT PROGRESS NOTE SERVICE DATE: 05/16/2024 SERVICE TIME: 4:07 PM LOS: 3 days Post-Acute Discharge Planning Patient Goal(s): General wellness [place] of Choice Explained: Yes post-Acute Discharge Plan: CM met with pt at bedside. Pt agreeable to visit. PT rec Home PT. Choices HC agencies provided to pt and referrals sent in [facility]. Will need F2F order. Several attempts to contact surg resident animal surgeon for order. SIGNATURE: Vanita Claire RN PATIENT NAME: Ayo Rodriguez [place] DATE: May 16, 2024 TIME: 4:07 PM PAGER/CONTACT #: [phone] [facility] 05-16-2024 Note HNO ID: [id number] Author: VANITA CLAIRE RN Service: Care Management Author Type: Registered Nurse Type: Care Mgt Progress Note Filed: 05/16/2024 15:19 Note Text: CARE MANAGEMENT PROGRESS NOTE SERVICE DATE: 05/16/2024 SERVICE TIME: 3:17 PM LOS: 3 days Post-Acute Discharge Planning Patient Goal(s): General wellness [place] of Choice Explained: Yes Post-Acute Discharge Plan: PT rec Home PT. CM met with pt at bedside. Pt is agreeable to HC PT. Unable to reach surgery for HC order. Bedside RN stated she will try to reach assistant professor surgical technology for HC order. SIGNATURE: Vanita Claire RN PATIENT NAME: Ayo Rodriguez [place] DATE: May 16, 2024 TIME: 3:17 PM PAGER/CONTACT #: [phone] [facility] 05-16-2024 Note HNO ID: [id number] Author: AMADA PETTIT MD Service: Colorectal Author [...] Surgery Resident, PGY-2 05/16/2024 9:02 AM Pager: [phone] SUBJECTIVE: - No acute events overnight - [...] -- 1.4* CA -- 8.3* -- 8.3* [facility] 05-15-2024 Note HNO ID: [id number] Author: HARRISON RIVERA DO Service: Colorectal Author [...] 05/13/24. - Pain: Multimodal pain regimen, D/C BRIDGE CRANE OPERATOR - CV: Repeat Hb today at noon. [...] bloating Plan of care discussed with staff. Harrsion Rivera DO, PhD General Surgery Resident, PGY-6 Pager: [phone] Subjective INTERVAL HISTORY OF PRESENT ILLNESS: No [...] mg INTRAVENOUS q 2 MIN PRN HYDROmorphone BRIDGE CRANE OPERATOR 0.5 mg/mL in NaCl 0.9% 100 mL [...] Date Value 04/30/2024 8 (L) URINALYSIS Specific [place], Ur Date Value Ref Range Status 02/12/2021 [...] Date Value R (more content not included)... 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 Per patient he is and has 2 children - a son and daughter. Per patient his son is his POA. No forms in the chart at this time. Patients dad about 3 years ago, his mom lives close by. No skilled needs. HCPOA [place] on file within [employer] and verified to be current as of date/time of this note: No Legal Next of Kin Hierarchy per [place] Revised Code: not in the chart - per patient his son has the forms Majority of Adult Children (consensus if possible) son and daughter Parents mom Majority of Adult Siblings (consensus if possible) sister Nearest Blood Relative FIDELINA Lara May 14, 2024 SIGNATURE: FIDELINA Lara PATIENT NAME: Ayo Alicia DATE: May 14, 2024 TIME: 12:32 PM CONTACT #: [phone] [facility] 05-14-2024 Note HNO ID: [id number] Author: HARRISON RIVERA DO Service: Colorectal Author [...] - VTE Ppx: SCDs, SQH - Disposition: [facility] Plan of care discussed with staff. Harrison Rivera DO, PhD General Surgery Resident, PGY-6 Pager: [phone] Subjective INTERVAL HISTORY OF PRESENT ILLNESS: No [...] mg INTRAVENOUS q 2 MIN PRN HYDROmorphone BRIDGE CRANE OPERATOR 0.5 mg/mL in NaCl 0.9% 100 mL [...] Date Value 04/30/2024 8 (L) URINALYSIS Specific Cowg[place], Ur Date Value Ref Range Status 02/12/2021 [...] Ref Range Status 02/12/2021 Negative Negative Final [facility] 05-13-2024 Note HNO ID: [id number] Author: ROHIT DEL CID APRN.JOURNEYMAN OPERATOR ASSISTANT Service: Anesthesiology Author Type: Nurse Utility Tractor Operator Type: Anesthesia Procedure Notes Filed: 05/13/2024 09:27 Note Text: ANESTHESIOLOGY PROCEDURE NOTE PIV General Information Procedure Start Time/Medication Administration: 05/13/2024 9:05 AM Procedure End Time: 05/13/2024 9:06 AM Patient Location: OR Staffing JOURNEYMAN OPERATOR ASSISTANT: Rohit Del Cid APRN.JOURNEYMAN OPERATOR ASSISTANT Performed by: ESSENCE Preparation Sterility Preparation: hand hygiene performed prior to procedure Site Prep: Chloraprep Procedure Details Indication: need for IV access Needle Size/Type: 18 gauge angiocath Orientation: Right Location: Hand Imaging Guidance Used: No SIGNATURE: Rohit Del Cid APRN.CRNA PATIENT NAME: Ayo Rodriguez Withem DATE: May 13, 2024 TIME: 9:27 AM CSN: [id number] [facility] 05-13-2024 Note HNO ID: [id number] Author: ROHIT DEL CID APRN.CRNA Service: Anesthesiology Author Type: Nurse Utility Tractor Operator Type: Anesthesia Procedure Notes Filed: 05/13/2024 08:33 Note Text: ANESTHESIOLOGY PROCEDURE NOTE Airway General Information Procedure Start Time/Medication Administration: 05/13/2024 7:55 AM Procedure End Time: 05/13/2024 7:56 AM Patient location during procedure: OR Patient identity confirmed: arm band Staffing JOURNEYMAN OPERATOR ASSISTANT: Rohit Del Cid APRN.JOURNEYMAN OPERATOR ASSISTANT Performed by: ESSENCE Indications and Patient Condition [...] May 13, 2024 TIME: 8:32 AM CSN: [id number] [facility] 05-07-2024 Telephone encounter Note Spoke with patient via phone call. Aware of anticoag instructions. No questions/concerns voiced. Erna Montoya LPN [facility] 05-07-2024 Miscellaneous Notes Spoke with patient via phone call. Aware of anticoag instructions. No questions/concerns voiced. Erna Montoya LPN I just received fax from cardiology patient okay to stop Eliquis 3 days prior to procedure but he would like him to continue the ASA (PACC EMPLOYMENT PROGRAM REPRESENTATIVE please call and relay this message to [...] Thank you, Lidya documented in this encounter [facility] 05-07-2024 Telephone encounter Note I just received fax from cardiology patient okay to stop Eliquis 3 days prior to procedure but he would like him to continue the ASA (PACC EMPLOYMENT PROGRAM REPRESENTATIVE please call and relay this message to patient). Just wanted to send an FYI. T&S completed. If there are any issues with him continuing the ASA or anything else needed from my end please let me know. Thanks, Dolly Nelson APRN.JOVANA [facility] 05-04-2024 Telephone encounter Note I saw this [...] okay to proceed? Thank you, Lidya T [facility] 04-30-2024 History and physical note HISTORY AND [...] or recurrence Follows with Dr. Pagan @ [place] Atherosclerosis of coronary artery Assessment: Stable S/p Stenting in 2020 On ASA, DOAC, & Statin Negative stress test 06/17/2023 Follows with Cardiology at [place] GERD (gastroesophageal reflux disease) Assessment: Controlled with [...] have a large neck STOP-Bang Score: 3 [id number] Score: Age: 65-74 Sex: male CHF history: No Hypertension history: Yes Stroke/TIA/thromboembolism history: No Vascular disease history: Yes Diabetes history: No [id number] Score: 3 ARISCAT Score: Age: 51-80 Preoperative [...] [facility] or Procedure: Answer: [place] Order Specific Question: Status of surgery/procedure: Answer: [...] 6 hours as needed. adalimumab (HUMIRA,CF, PEN [id number]-RA-IX) 80 mg/0.8 mL pen kit Sig: Inject [...] as needed. Taking Yes adalimumab (HUMIRA,CF, PEN BAHQUB-AF-AZ) 80 mg/0.8 mL pen kit Inject 80 [...] fevers. Neuro: No history of TIA's, stroke, HEALTH EDUCATION ASSISTANT tumor, impaired sensorium, hemiplegia, paraplegia or quadraplegia. No neurological symptoms or problems. Respiratory: No history of current cough or dyspnea, or pneumonia in the past 6 weeks. No history of respiratory/pulmonary symptoms or problems. Cardiovascular: Negative for Recent TX, Angina, Chest Pain, PVD, DVT/PE +CAD s/p [...] Ayo Alicia DATE: 04/30/2024 TIME: 2:08 PM [facility] 04-30-2024 History and physical note HISTORY AND [...] or recurrence Follows with Dr. Pagan @ [place] Atherosclerosis of coronary artery Assessment: Stable S/p Stenting in 2020 On ASA, DOAC, & Statin Negative stress test 06/17/2023 Follows with Cardiology at [place] GERD (gastroesophageal reflux disease) Assessment: Controlled with [...] have a large neck STOP-Bang Score: 3 [id number] Score: Age: 65-74 Sex: male CHF history: No Hypertension history: Yes Stroke/TIA/thromboembolism history: No Vascular disease history: Yes Diabetes history: No [id number] Score: 3 ARISCAT Score: Age: 51-80 Preoperative [...] pending LABS and EKG and coag clearance. cheyrle rec's? CONSULTS: Patient does not require consults [...] [facility] or Procedure: Answer: [place] Order Specific Question: Status of surgery/procedure: Answer: [...] 6 hours as needed. adalimumab (HUMIRA,CF, PEN ROQQIO-YR-OK) 80 mg/0.8 mL pen kit Sig: Inject [...] as needed. Taking Yes adalimumab (HUMIRA,CF, PEN IKBTYH-MX-EM) 80 mg/0.8 mL pen kit Inject 80 [...] fevers. Neuro: No history of TIA's, stroke, HEALTH EDUCATION ASSISTANT tumor, impaired sensorium, hemiplegia, paraplegia or quadraplegia. No neurological symptoms or problems. Respiratory: No history of current cough or dyspnea, or pneumonia in the past 6 weeks. No history of respiratory/pulmonary symptoms or problems. Cardiovascular: Negative for Recent TX, Angina, Chest Pain, PVD, DVT/PE +CAD s/p [...] TIME: 2:08 PM documented in this encounter [facility] 04-30-2024 Instructions Dolly Nelson APRN.CNP - 04/30/2024 8:09 AM EDT PATIENT PREOPERATIVE INSTRUCTIONS Your Surgeon has scheduled you for your procedure at this surgery center: [facility]: [phone] --[address] [address]. Please check in on the 1st floor [...] Procedures: - YOU MUST HAVE A RESPONSIBLE ELECTRICAL EQUIPMENT ASSEMBLER TAKE YOU HOME. A RADIOLOGY RESIDENT OR CHANGE CONTROL SPECIALIST CANNOT BE MADE A RESPONSIBLE ELECTRICAL EQUIPMENT ASSEMBLER. - We recommend that a responsible person [...] Advance Directive, please fax a copy to [phone] or email to for it to be [...] Dolly Nelson APRN.CNP documented in this encounter [facility] 04-28-2024 History of Presen t illness Narrative COLORECTAL SURGERY April 28, 2024 Ayo Alicia 64 year old This consult was requested by Dr. Arias and my final recommendations will be communicated to the requesting health care provider by way of the shared medical record for internal providers or letter via the [employer] for external providers. Chief Complaint: retained capsule History of Present Illness: Ayo Alicia is a 64 year old male presents today for evaluation of retained endoscopic camera. Crohn's disease - dx [address] enterography 04/16/24 Scan on 04/22/2024 8:26 AM by Lisa Arreaga: [facility] CT ABD & PEL [id number] - Tiny hiatal hernia - Cholelithiasis - [...] MD Colorectal Surgery documented in this encounter [facility] 04-28-2024 Note HNO ID: [id number] Author: CUBA HAYWOOD MD Service: ? Author Type: Physician Type: Progress Notes Filed: 04/29/2024 21:55 Note Text: COLORECTAL SURGERY April 28, 2024 Ayo Alicia 64 year old This consult was requested by Dr. Arias and my final recommendations will be communicated to the requesting health care provider by way of the shared medical record for internal providers or letter via the [employer] for external providers. Chief Complaint: retained capsule History of Present Illness: Ayo Alicia is a 64 year old male presents today for evaluation of retained endoscopic camera. Crohn's disease - dx [address] enterography 04/16/24 Scan on 04/22/2024 8:26 AM by Lisa Arreaga: [facility] CT ABD AND PEL [phone] - Tiny hiatal hernia - Cholelithiasis - [...] male with history of [facility]'s [facility] enterography as above. He had a [...] plan: high Cuba Haywood MD Colorectal Surgery [facility] 09-11-2023 Evaluation note Encounter Date Diagnosis Assessment [...] some recent labs done at [facility] will obtain these reports Patient is to start Amjevita RTO 6 weeks [employer] Other 12-27-2023 Instructions* Patient Instructions* Supriya Morel [...] you have a Living Will/Durable Power of Silk Presser for Health Care that is not on file here, please bring a copy the day of surgery. 3. Please wash your face with baby shampoo prior to procedure as instructed by your physician. 4. NO powder, lotion, perfume/cologne, aftershave, make-up, nail ukrainian on at least one finger, deodorant, or [...] please call the Preadmission Testing office at [phone], Mon.-Fri. 7 a.m.-3 p.m. Leave a voicemail [...] prior to procedure documented [facility]Khwjkz[facility]67 Miscellaneous Notes* Perioperative Nursing Note - Supriya [...] you have a Living Will/Durable Power of Silk Presser for Health Care that is not on file here, please bring a copy the day of surgery. 3. Please wash your face with baby shampoo prior to procedure as instructed by your physician. 4. NO powder, lotion, perfume/cologne, aftershave, make-up, nail ukrainian on at least one finger, deodorant, or [...] please call the Preadmission Testing office at [phone], Mon.-Fri. 7 a.m.-3 p.m. Leave a voicemail [...] reviewed. Patient verbalized understanding. [facility]* Perioperative Nursing Note - [...] you have a Living Will/Durable Power of Silk Presser for Health Care that is not on file here, please bring a copy the day of surgery. 3. Please wash your face with baby shampoo prior to procedure as instructed by your physician. 4. NO powder, lotion, perfume/cologne, aftershave, make-up, nail ukrainian on at least one finger, deodorant, or [...] please call the Preadmission Testing office at [phone], Mon.-Fri. 7 a.m.-3 p.m. Leave a voicemail [...] Stop taking 0 days prior to procedure [facility] [employer]12-27-2023 Nurse Note* Perioperative Nursing Note - Supriya Morel RN - 08/27/2023 12:45 PM EST Surgical instructions reviewed. Patient verbalized understanding. [facility] [employer]09-18-2023 Evaluation note* Encounter Date Diagnosis Assessment Notes Treatment Notes Treatment Clinical Notes May, Crohns disease (ICD-10 - K50.90) [employer] Other 08-24-2023 Evaluation note* Encounter Date Diagnosis Assessment Notes Treatment Notes Treatment Clinical Notes Apr, Iron deficiency anemia (ICD-10 - D50.9) [employer] Other 08-23-2023 Evaluation note* Encounter Date Diagnosis Assessment Notes Treatment Notes Treatment Clinical Notes Apr, Crohns disease (ICD-10 - K50.90) Pt is taking budesonide. Pt advised to start humira and stop budesonide. Labs ordered Pt RTO in 6 wks [employer] Other 11-23-2022 Evaluation note* Encounter Date Diagnosis Assessment Notes Treatment Notes Treatment Clinical Notes Jul, Iron deficiency anemia (ICD-10 - D50.9) [employer] Other 11-08-2022 Evaluation note* Encounter Date Diagnosis Assessment Notes Treatment Notes Treatment Clinical Notes Jul, Iron deficiency anemia (ICD-10 - D50.9) Jul, Crohns disease (ICD-10 - K50.90) CONTINUE SULFASALAZINE 2 TABLETS TWICE A DAY RTO 4 WEEKS Jul, Abdominal pain (ICD-10 - R10.9) Jul, Diarrhea (ICD-10 - R19.7) [employer] Other 09-07-2022 NoteOPERATIVE NOTE OPERATION DATE: 05/08/2022 [...] in good condition. CC: Perico Mccabe M.D.The [facility]healthEvaluation + Plan note No data available for this section [facility] [place] Evaluation noteNo assessment information available [facility] [employer] Work Phone: Evaluation noteNo InformationNort [employer] Other Evaluation note* Diagnosis Onset Date Resolution Status Abdominal pain acute Crohn's disease acute Weight loss, non-intentional acute [facility] Work Phone: Evaluation note* Diagnosis Crohn's disease of both small and large intestine without complication (HCC)- Primary Regional enteritis of small intestine with large intestine Crohn's disease of both small and large intestine without complication (HCC) Regional enteritis of small intestine with large intestine documented in this encounter [facility] note* Diagnosis Pre-op evaluation- Primary Preoperative examination, unspecified Hyperlipidemia, unspecified hyperlipidemia type Atrial fibrillation, unspecified type (HCC) Atherosclerosis of ugashik coronary artery of ugash[place] heart, unspecified whether angina present Gastroesophageal reflux [...] stress test 06/17/2023 Follows [place] * Assessment & Plan Note - Dolly Nelson APRN.CNP - 04/30/2024 2:01 PM EDT Associated Problem(s): Atrial fibrillation (HCC) Assessment: Stable per last Cardiology OV note 01/04/2023 S/p Ablation 11/21/2022 On BB, ASA, and Eliquis- Will send letter for coag clearance Denies any palpitations or recurrence Follows with Dr. Pagan @ [place] * Assessment & Plan Note - Dolly Nelson APRN.CNP - 04/30/2024 1:47 PM EDT Associated Problem(s): Hyperlipidemia Assessment: On Statin Follows with PCP documented in this encounter [facility] note* Diagnosis Pre-op evaluation- Primary Preoperative examination, unspecified Hyperlipidemia, unspecified hyperlipidemia type Atrial fibrillation, unspecified type (HCC) Atherosclerosis of ugashik coronary artery of ugashik heart, unspecified whether angina present Gastroesophageal reflux disease, unspecified whether esophagitis present Essential hypertension Unspecified essential hypertension Anemia, unspecified type Follow-up examination after colorectal surgery- Primary Follow-up examination, following other surgery documented in this encounter [facility] note* Diagnosis Pre-op evaluation- Primary Preoperative examination, unspecified Hyperlipidemia, unspecified hyperlipidemia type Atrial fibrillation, unspecified type (HCC) Atherosclerosis of ugash[place] coronary artery of [place]ash[place] heart, unspecified whether angina present Gastroesophageal reflux disease, unspecified whether esophagitis present Essential hypertension Unspecified essential hypertension Anemia, unspecified type Follow-up examination after colorectal surgery- Primary Follow-up examination, following other surgery documented in this encounter [facility] note* Diagnosis Preop examination- Primary Unspecified pre-operative examination Coronary artery disease, unspecified vessel or lesion type, unspecified whether angina present, unspecified whether [place] or transplanted heart [facility] N[facility]ative - Reported* Type Description Date Surgical History knee replacement-right Surgical History knee arthroscopy-left Surgical History back surgery Surgical History Neck Surgery Surgical History ganglion cyst-left Surgical History heart stent [employer] Other History general Narrative - Reported* Type Description Date Medical History Afib Surgical History knee replacement-right Surgical History knee arthroscopy-left Surgical History back surgery Surgical History Neck Surgery Surgical History ganglion cyst-left Surgical History heart stent Surgical History cardiac ablasion [employer] Other Hospital Discharge instructions No data available for this section [facility] [place] Progress note No data available for this section [facility] [place] Reason for referral (narrative)* Outpatient Procedure (Routine) - New Request Specialty Diagnoses / Procedures Referred By Contac t Referred To [facility] Diagnoses Pre-op evaluation Procedures ECG COMPLETE ECG ROUTINE ECG W/LEAST 12 LDS W/I&R Dolly Nelson APRN.CNP [address] [place] [address] [facility] [address] [place] [address] Referral ID Status Reason Start Date Expiration Date Visits Requested Visits Authorized [id number] New Request Auto-Generat ed Referral 04/30/2024 04/30/2025 1 1 [facility] Summary Purpose Family History No Family History [...] section and content) DATE CREATED AUTHOR 07/22/2020 [facility] DATE CREATED AUTHOR AUTHOR'S ORGANIZ ATION 12/15/2021 [facility] DATE CREATED AUTHOR AUTHOR'S ORGANIZ ATION 08/05/2022 [facility] DATE CREATED AUTHOR AUTHOR'S ORGANIZ ATION 11/06/2022 [facility] DATE CREATED AUTHOR AUTHOR'S ORGANIZ ATION 10/05/2023 [facility] DATE CREATED AUTHOR AUTHOR'S ORGANIZ ATION 04/17/2024 [facility] DATE CREATED AUTHOR AUTHOR'S ORGANIZ ATION 06/11/2024 [facility] DATE CREATED AUTHOR AUTHOR'S ORGANIZ ATION 08/23/2024 [facility] DATE CREATED AUTHOR AUTHOR'S ORGANIZ ATION 01/07/2025 [facility] Care Team (unrecognized sect ion and content) [...] April 16, 2024 End: April 16, 2024 Strap Stitcher Relationship Specialty Start Date End Date Perico Mccabe MD PCP - General Family Medicine 02/14/14 Strap Stitcher Relationship Specialty Start Date End Date Perico Mccabe MD PCP - General Family Medicine 02/14/14 Strap Stitcher Relationship Specialty Start Date End Date Perico Mccabe MD PCP - General Family Medicine 02/14/14 Strap Stitcher Relationship Specialty Start Date End Date Perico Mccabe MD PCP - General Family Medicine 02/14/14 Strap Stitcher Relationship Specialty Start Date End Date Perico Mccabe MD PCP - General Family Medicine 02/14/14 Strap Stitcher Relationship Specialty Start Date End Date Perico Mccabe MD [address] [place] [address] PCP - General Family Medicine 08/27/23 Team [...] or prosecute any alcohol or drug abuse patient.[facility] HospitalIn the event this information is protected by the Federal Confidentiality of Alcohol and Drug Abuse Patient Records regulations: The Federal rules restrict any use of the information to criminally investigate or prosecute any alcohol or drug abuse patient.[facility] HospitalIn the event this information is protected by the Federal Confidentiality of Alcohol and Drug Abuse Patient Records regulations: The Federal rules restrict any use of the information to criminally investigate or prosecute any alcohol or drug abuse patient.[facility] HospitalIn the event this information is protected by the Federal Confidentiality of Alcohol and Drug Abuse Patient Records regulations: The Federal rules restrict any use of the information to criminally investigate or prosecute any alcohol or drug abuse patient.[facility] HospitalIn the event this information is protected by the Federal Confidentiality of Alcohol and Drug Abuse Patient Records regulations: The Federal rules restrict any use of the information to criminally investigate or prosecute any alcohol or drug abuse patient.[facility] FOR RECORDS PERTAINING TO PATIENTS WHO ARE [...] BE BASED ON THE PRIMARY CLINICAL RECORDS. [facility] [employer] [facility]. provides no warranty or guarantee of the accuracy or completeness of information in this document.
[2025-04-30 08:45] LABS: Hematocrit 25.7 % (42.0-54.0); Hemoglobin 7.1 g/dL (14.0-18.0); Immature Granulocytes Abs Auto 0.02 10^3/uL (0.00-0.03); Immature Granulocytes Pct Auto 0.3 % (0.0-0.5); Lymphocytes Absolute Auto 1.1 10^3/uL (1.2-3.8); Mean Corpuscular HGB Conc 27.6 g/dL (29.9-35.2); Mean Corpuscular Hemoglobin 20.5 pg (25.9-34.0); Mean Corpuscular Volume 74.1 fL (80.0-94.0); Platelet Count 343 10^3/uL (150-450); Red Blood Count 3.47 10^6/uL (4.70-6.10); White Blood Count 6.4 10^3/uL (4.0-11.0)
[2025-04-30 10:30] LABS: Alanine Aminotransferase 17 U/L (16-63); Albumin Globulin Ratio 0.8; Albumin Level 3.2 g/dL (3.4-5.0); Alkaline Phosphatase 82 U/L (46-116); Anion Gap 13.0; Aspartate Amino Transferase 15 U/L (15-37); Blood Urea Nitrogen 11.0 mg/dL (7.0-18.0); Calcium 8.3 mg/dL (8.5-10.1); Carbon Dioxide 27.9 mmol/L (21.0-32.0); Chloride 104 mmol/L (98-107); Cholesterol 68 mg/dL (<=200); Estimated GFR (African America >60 (>=60 mL/min/1.73m^2); Estimated GFR (Non-African Ame >60 (>=60 mL/min/1.73m^2); Free T3 2.70 pg/mL (2.18-3.98); Globulin 4.2 g/dL; Glucose 101 mg/dL (74-106); HDL Cholesterol 34 mg/dL (40-60); NT Pro B Type Natriuretic Pept 415.0 pg/mL (<=900.0); Potassium 3.9 mmol/L (3.5-5.1); Sodium 141 mmol/L (136-145); Thyroid Stimulating Hormone 1.877 uIU/mL (0.358-3.740); Total Protein 7.4 g/dL (6.4-8.2); Triglycerides 54 mg/dL (<=150); VLDL CHOLESTEROL 10.8 mg/dL
== END 2025-04-30 08:16 | disposition home or self-care (01) ==
PROVIDERS: PCP Family Medicine; Visit Provider Family Medicine
DX: K50.919 Crohn's disease, unspecified, with unspecified complications (principal); I11.0 Hypertensive heart disease with heart failure; R07.9 Chest pain, unspecified; M79.606 Pain in leg, unspecified; E78.5 Hyperlipidemia, unspecified; R73.09 Other abnormal glucose; R53.83 Other fatigue; Z12.5 Encounter for screening for malignant neoplasm of prostate; I50.30 Unspecified diastolic (congestive) heart failure
CPT/HCPCS: 36415; 80053; 80061; 83036; 83525; 83880; 84436; 84443; 84481; 84484; 85025; G0103

== ENCOUNTER 2025-05-04 11:55 | Outpatient (OUT) | payer MEDICARE, SELFPAY ==
--- OUTSIDE RECORDS SUMMARY | 2025-05-04 11:59 | XMS_ITS | Clinical Summary ---
Author Organization [facility] Address [address] [place] [address] Care Team Providers Care Gas Meter Installer Name Role Phone Unavailable Primary Care Provider Unavailabl e Social History Tobacco Use Types Packs/Day Years Used Date Smoking Tobacco: Never Assessed Sex and Gender Information Value Date Recorded Sex Assigned at Not on file Legal Sex Male 7:03 PM EDT Gender Identity Not on file Sexual Orientation Not on file Last Filed Vital Signs Vital Sign Reading Time Taken Comments Blood Pressure - - Pulse - - Temperature - - Respiratory Rate - - Oxygen Saturation - - Inhaled Oxygen Concentration - - Weight 83.5 kg (184 lb) 09/12/2021 12:00 PM EST Height 172.7 cm (5' 8 ) 09/12/2021 12:00 PM EST Body Mass Index 27.98 09/12/2021 12:00 PM EST Plan of Treatment Not on file Insurance [employer]
--- OUTSIDE RECORDS SUMMARY | 2025-05-04 11:59 | XMS_ITS | Clinical Summary ---
Author Organization [facility] [facility] tem Address [id number] [address] [place] [address] Care Team Providers Care Electrical Lineman Name Role Phone Trevor Balderas MD Primary Care Provider [phone] Allergies No known active allergies Medications spironolactone (ALDACTONE) 25 mg tablet Take 1 tablet (25 mg total) by mouth in the morning. Active atorvastatin (LIPITOR) 80 mg tablet Take 1 tablet (80 mg total) by mouth in the morning. Active lisinopriL (PRINIVIL,ZESTR IL) 20 mg tablet Take 1 tablet (20 mg total) by mouth in the morning. Active apixaban (ELIQUIS) 5 mg tablet Take 1 tablet (5 mg total) by mouth in the morning and 1 tablet (5 mg total) before bedtime. Active pantoprazole (PROTONIX) 40 mg EC tablet Take 1 tablet (40 mg total) by mouth in the morning. Active metoprolol tartrate (LOPRESSOR) 100 mg tablet Take 1 tablet (100 mg total) by mouth in the morning and 1 tablet (100 mg total) before bedtime. Active acetaminophen (TYLENOL) 325 mg tablet Take 2 tablets (650 mg total) by mouth every 6 (six) hours as needed for pain. Active Active Problems No known active problems Family History Medical History Relation Name Comments Heart disease Father Hypertension Father Parkinsonism Father Hypertension Mother Relation Name Status Comments Father Mother Alive Social History Tobacco Use Types Packs/Day Years Used Date Smoking Tobacco: Never Smokeless Tobacco: Never Tobacco Cessation:Counseling Given: Not Answered Alcohol Use Standard Drinks/Week Comments Not Currently 0 (1 standard drink = 0.6 oz pur e alcohol) very rare Childcare Answer Date Recorded Childcare Unknown 09/26/2020 Employment Answer Date Recorded Employment Unknown 09/26/2020 Purpose - Life Answer Date Recorded Purpose and direction in life Unknown Sex and Gender Information Value Date Recorded Sex Assigned at Not on file Legal Sex Male 11:57 AM EDT Gender Identity Not on file Sexual Orientation Not on file Last Filed Vital Signs Vital Sign Reading Time Taken Comments Blood Pressure 156/93 09/30/2023 2:55 PM EST Pulse 75 09/30/2023 2:55 PM EST Temperature 36.8 C (98.2 F) 09/16/2023 1:49 PM EST Respiratory Rate 8 09/30/2023 2:55 PM EST Oxygen Saturation 99% 09/30/2023 2:55 PM EST Inhaled Oxygen Concentration - - Weight 81.6 kg (180 lb) 09/16/2023 1:49 PM EST Height 172.7 cm (5' 8 ) 09/16/2023 1:49 PM EST Body Mass Index 27.37 09/16/2023 1:49 PM EST Plan of Treatment Health Maintenance Due Date Last Done Comments Depression Screening 1971 DTaP,Tdap and Td Vaccines (1 - Tdap) 1978 Zoster (Shingles) Vaccine (1 of 2) 2009 Fall Risk Screening 2024 COVID-19 Vaccine (2023-2 5 season) 2024 08/27/2021, 01/12/2021, 12/21/2020 Adult BMI Screening 09/16/2024 09/16/2023 Tobacco Screening 09/30/2024 09/30/2023 Influenza Vaccine 05/02/2025 Medical Devices Implanted Type Area Furniture Rental Consultant Device Identifier Shelf Expiration Date Model / Serial / Lot [employer] Iol Implanted:Qty: 1 on 09/16/2023 by Diamond Montoya MD at [facility] Lens Right: [employer] 03/11/2027 [id number] 24.0 / [id number] / NA Lens Iol [id number] [place] - [id number] Implanted:Qty: 1 on 09/30/2023 by Diamond Montoya MD at [facility] Lens [employer] 03/23/2027 [id number] / [id number] / N/A Insurance [employer] Care Teams Electrical Lineman Relationship Specialty Start Date End Date Trevor Balderas MD PCP - General Family Medicine 08/27/23
--- OUTSIDE RECORDS SUMMARY | 2025-05-04 11:59 | XMS_ITS | Clinical Summary ---
Author Organization [facility] Address [address] [place] [address] Phone Care Team Providers Care Spark Plug Tester Name Role Phone Trevor Balderas MD Primary Care Provider [phone] Social History Tobacco Use Types Packs/Day Years Used Date Smoking Tobacco: Never Assessed Sex and Gender Information Value Date Recorded Sex Assigned at Not on file Legal Sex Male 2:24 PM EST Gender Identity Not on file Sexual Orientation Not on file Last Filed Vital Signs Vital Sign Reading Time Taken Comments Blood Pressure 138/80 07/20/2020 12:38 PM EST Pulse 88 07/20/2020 12:38 PM EST Temperature 2.8 C (37 F) 07/20/2020 12:38 PM EST Respiratory Rate 18 07/20/2020 12:38 PM EST Oxygen Saturation 98% 07/20/2020 12:38 PM EST Inhaled Oxygen Concentration - - Weight - - Height - - Body Mass Index - - Plan of Treatment Not on file Care Teams Spark Plug Tester Relationship Specialty Start Date End Date Trevor Balderas MD [address] [place] [address] PCP - General 07/20/20
--- OUTSIDE RECORDS SUMMARY | 2025-05-04 11:59 | XMS_ITS | Encounter Summary ---
Author Organization [facility] Address [address] [place] [id number] Care Team Providers Care Commercial Hvac Service Technician Name Role Phone Trevor Balderas MD Primary Care Provider [phone] Source Comments In the event this information is protected by the Federal Confidentiality of Alcohol and Drug AbusePatient Records regulations: The Federal rules restrict any use of the information to criminally investigate or prosecute any alcohol or drug abuse patient.[facility] Encounter Details Date Type Department Care Team (Late st Contact Info) Description 07/26/2024 [place] [address] Provider, [facility] C: Surgical Follow Up- PLEASE RESPOND Social History Tobacco Use Types Packs/Day Years Used Date Smoking Tobacco: Never Smokeless Tobacco: Never Alcohol Use Standard Drinks/Week Comments Not Currently 0 (1 standard drink = 0.6 oz pur e alcohol) [facility] Utilities Answer Date Recorded In the past 12 months has e electric, gas, oil, or water company threatened to shut off services in your home? No 05/14/2024 Hunger Vital Sign Answer Date Recorded Within the past 12 months, y ou worried that your food would run out before you got the money to buy more. Never true 05/14/20 24 Within the past 12 months, t he food you bought just didn't last and you didn't have money to get more. Never true 05/14/2024 PRAPARE - Transportation Answer Date Re corded In the past 12 months, has l ack of transportation kept you from medical appointments or from getting medications? No 05/02 In the past 12 months, has l ack of transportation kept you from meetings, work, or from getting things needed for daily living? No 05/14/2024 Housing Stability Vital Sign Answer Betito e Recorded In the last 12 months, was t here a time when you were not able to pay the mortgage or rent on time? No 05/14/2024 In the past 12 months, how m any times have you moved where you were living? 1 05/14/2024 At any time in the past 12 m [facility], were you homeless or living in a group home (including now)? No 05/14/2024 Area Deprivation Index Answer Date Сергей rded National Score (1-100), lower number is lower ri sk 89 04/28/2024 State Score (1-10), lower number is lower risk 8 04/28/2024 Data from: https://www.neighborhoodatlas.medicine.[facility].edu/. Last address used for calculation [address] 04/28/2024 Sex and Gender Information Value Date Recorded Sex Assigned at Not on file Legal Sex Male 12:16 PM EDT Gender Identity Not on file Sexual Orientation Not on file documented as of this encounter Functional Status * Are you deaf or do you have serious difficulty hearing? Answer Date of Assessment Author No 05/18/2024 9:57 AM Michelle Fernandez RN * Are you blind or do you have serious difficulty seeing, even when wearing glasses? Answer Date of Assessment Author No 05/18/2024 9:57 AM Michelle Fernandez RN * Do you have serious difficulty walking or climbing stairs? Answer Date of Assessment Author No 05/18/2024 9:57 AM Michelle Fernandez RN * Do you have difficulty dressing or bathing? Answer Date of Assessment Author No 05/18/2024 9:57 AM Michelle Fernandez RN * Because of a physical, mental, or emotional condition, do you have difficulty doing errands alone such as visiting a doctor's office or shopping? Answer Date of Assessment Author Yes 05/18/2024 9:57 AM Michelle Fernandez RN documented as of this encounter Mental Status * Because of a physical, mental, or emotional condition, do you have serious difficulty concentrating, remembering, or making decisions? Answer Entry Date Author No 05/18/2024 9:57 AM Michelle Fernandez RN documented in this encounter Plan of Treatment Not on file documented as of this encounter Visit Diagnoses Not on filedocumented in this encounter Care Teams Commercial Hvac Service Technician Relationship Specialty Start Date End Date Trevor Balderas MD PCP - General Family Medicine 02/14/14 documented as of this encounter
--- OUTSIDE RECORDS SUMMARY | 2025-05-04 11:59 | XMS_ITS | Clinical Summary ---
Author Organization [facility] Address [address] [place], [place] [id number] Care Team Providers Care Consulting Solution Director Name Role Phone Trevor Balderas MD Primary Care Provider [phone] Allergies No known active allergies Medications atorvastatin (LIPITOR) 80 mg tablet atorvastatin 80 mg tablet TAKE 1 TABLET BY MOUTH DAILY Active sildenafil (VIAGRA) 100 mg tablet 1 Active aspirin 81 mg cap Take 81 mg by mouth once daily. Active adalimumab (HUMIRA,CF, PEN [id number]) 80 mg/0.8 mL pen kit Inject 80 mg subcutaneously every 2 weeks. Active lisinopril (ZESTRIL) 20 mg tablet Take 20 mg by mouth once daily. [address] (PROTONIX) 40 mg tablet Take 40 mg by mouth once daily. 1 Active apixaban (ELIQUIS) 5 mg tab(s) Take 1 tablet by mouth two times a day. OK to resume on 05/19/2024 4 Active acetaminophen (TYLENOL) 500 mg tablet Take 2 tablets by mouth every 6 hours. 50 tablet 05/18/2024 12:26 PM EDT 4 Active Bacillus coagulan-calci um carb (DIGESTIVE ADVANTAGE PROBIOTIC) 2 billion cell- 140 mg cap Take 1 capsule by mouth once daily. 30 capsule 05/18/2024 12:26 PM EDT 4 Active methocarbamol (ROBAXIN) 750 mg tablet Take 1 tablet by mouth three times a day as needed for muscle spasms. 15 tablet 05/18/2024 12:26 PM EDT 4 Active Active Problems Problem Noted Date Diagnosed Date Anemia 04/30/2024 Assessment & Plan (05/07/2024 10:08 AM EDT): Assessment: Chronically low > 1 year Current Hgb 7.7 Notified surgeon- okay to proceed T&S Done Patient is asymptomatic Denies dizziness, lightheadedness, no signs of active bleeding Follows with PCP Atrial fibrillation 04/30/2024 Overview (04/30/2024): Last Assessment & Plan: [id number] 2 ( hypertension, CAD) - continue Eliquis 5 mg twice daily Toprol 100 mg daily - we will proceed with A-fib ablation - tolerating Eliquis without any concerns of bleeding Assessment & Plan (04/30/2024 2:01 PM EDT): Assessment: Stable per last Cardiology OV note 01/04/2023 S/p Ablation 11/21/2022 On BB, ASA, and Eliquis- Will send letter for coag clearance Denies any palpitations or recurrence Follows with Dr. Pagan @ [facility] Atherosclerosis of coronary artery 04/30/2024 Overview (04/30/2024): Last Assessment & Plan: Coronary artery disease is Stable -s/p PCI with ERIC to LAD 01/26/21 (cath also noted severe prox and mid vessel to a short PDA and moderate dz to LCx) -Continue statin, BB - he has history of being on Plavix which was supposedly stopped after EGD Assessment & Plan (04/30/2024 2:03 PM EDT): Assessment: Stable S/p Stenting in 2020 On ASA, DOAC, & Statin Negative stress test 06/17/2023 Follows with Cardiology at [facility] Hyperlipidemia 04/30/2024 Overview (04/30/2024): Last Assessment & Plan: - continue Lipitor 80 mg Assessment & Plan (04/30/2024 1:47 PM EDT): Assessment: On Statin Follows with PCP Crohn's disease 07/04/2022 Peyronie's disease 02/12/2021 ED (erectile dysfunction) of organic origin 01/30 Essential hypertension 02/12/2021 Overview (04/30/2024): Last Assessment & Plan: Hypertension is stable today - continue medication Assessment & Plan (04/30/2024 2:54 PM EDT): Assessment: Stable on medication 145/75 in office today Follows with PCP GERD (gastroesophageal reflux disease) Assessment & Plan (04/30/2024 2:52 PM EDT): Assessment: Controlled with PPI Resolved Problems Problem Noted Date Diagnosed Date Resolved Date Complication due to Crohn's disease 05/13/2024 05/18/2024 Family History Medical History Relation Comments Anesthesia Problems No Family History Social History Tobacco Use Types Packs/Day Years Used Date Smoking Tobacco: Never Smokeless Tobacco: Never Tobacco Cessation:Counseling Given: Not Answered Alcohol Use Standard Drinks/Week Comments Not Currently 0 (1 standard drink = 0.6 oz pur e alcohol) [facility] Utilities Answer Date Recorded In the past 12 months has th e [employer], gas, oil, or water [employer] threatened to shut off services in your [...] any time in the past 12 m [facility], were you homeless or living in a retirement (including now)? No 05/14/2024 Area Deprivation Index Answer Date Сергей rded National Score (1-100), lower number is lower ri sk 89 04/28/2024 State Score (1-10), lower number is lower risk 8 04/28/2024 Data from: https://www.neighborhoodatlas.[facility].edu/. Last address used for calculation [address] 04/28/2024 Sex and Gender Information Value Date Recorded Sex Assigned at Not on file Legal Sex Male 12:16 PM EDT Gender Identity Not on file Sexual Orientation Not on file Last Filed Vital Signs Vital Sign Reading Time Taken Comments Blood Pressure 150/71 08/20/2024 10:37 AM EST Pulse 77 08/20/2024 10:37 AM EST Temperature 36.3 C (97.3 F) 08/20/2024 10:37 AM EST Respiratory Rate 16 05/18/2024 7:08 AM EDT Oxygen Saturation 98% 08/20/2024 10:37 AM EST Inhaled Oxygen Concentration - - Weight 79.4 kg (175 lb) 05/13/2024 1:39 PM EDT Height 172.7 cm (5' 8 ) 05/13/2024 1:39 PM EDT Body Mass Index 26.61 05/13/2024 1:39 PM EDT Plan of Treatment Health Maintenance Due Date Last Done Comments Annual PCP Team Chronic Disease Visit 1977 Anxiety Screening 1977 Depression Screening 1977 Hepatitis C Screening 1977 LDL Cholesterol 1977 DTaP,Tdap,Td Vaccine (1 - Tdap) 1978 Pneumococcal Vaccine: 50+ (1 of 2 - PCV) 1978 Shingrix Vaccine (1 of 2) [address] Colonography 2004 Cologuard (FIT-DNA) 2004 Colonoscopy 2004 Colorectal Cancer Screening 2004 Fecal Occult Blood 2004 Prostate Cancer Screening Discussion 2004 Sigmoidoscopy 2004 RSV Vaccine (1 - Risk 60-74 years 1-dose series) 2019 Advance Directive Discussion 09/01/2024 Medicare Advantage Annual We llness Visit 09/01/2024 Influenza Vaccine (#1) 2025 Diabetes Screening 05/15/2027 05/15/2024, 0 05/14/2024, 04/30/2024 Procedures Procedure Name Priority Date/Time Associated Diagnosis Comments BASIC METABOLIC PANEL Routine 05/15/2024 5:44 AM EDT from Last 3 Months or Most Recently Relevant to Health Maintenance Results * (ABNORMAL) BASIC METABOLIC PANEL (05/15/2024 5:44 AM EDT) Glucose 119(H) 74 - 99 mg/dL 05/15/2024 7:15 AM EDT [facility] Comment: The [place] Diabetes Association (ADA) provides guidance for cutoff [...] Standards of Medical Care in Diabetes 2016, [place] [employer] Association. Diabetes Care. 2016.39(Suppl 1). BUN 19 9 - 24 mg/dL 05/15/2024 7:15 AM EDT [facility] Creatinine 0.87 0.73 - 1.22 mg/dL 05/15/2024 7:15 AM EDT [facility] Sodium 139 136 - 144 mmol/L 05/15/2024 7:15 AM EDT [facility] Potassium 4.0 3.7 - 5.1 mmol/L 05/15/2024 7:15 AM EDT [facility] Chloride 106 98 - 107 mmol/L 05/15/2024 7:15 AM EDT [facility] CO2 25 22 - 30 mmol/L 05/15/2024 7:15 AM EDT [facility] Anion Gap 8 8 - 15 mmol/L 05/15/2024 7:15 AM EDT [facility] Calcium, Total 8.3(L) 8.5 - 10.2 mg/dL 05/15/2024 7:15 AM EDT [facility] Estimated Glomerular Filtration Rate 96 >=60 mL/min/1. 73m 05/15/2024 7:15 AM EDT [facility] Comment:Estimated Glomerular Filtration Rate (eGFR) is calculated using the 2020 CKD-EPI creatinine equation. This equation utilizes serum creatinine, sex, and age as parameters. The creatinine assay has traceable calibration to isotope dilution- mass spectrometry. Refer to KDIGO guidelines for clinical interpretation. In patients with unstable renal function, e.g. those with acute kidney injury, the eGFR may not accurately reflect actual GFR. Blood BLOOD SPECIMEN / Unknown Venipuncture / Unknown 05/15/2024 5:44 AM EDT 05/15/2024 6:35 AM EDT Marquez Villarreal MD LABORATORY Final Result [facility] [address] [place] [address], from Last 3 Months or Most Recently Relevant to Health Maintenance Insurance MEDICARE ADVANTAGE PPO Care Teams Consulting Solution Director Relationship Specialty Start Date End Date Trevor Balderas MD PCP - General Family Medicine 02/14/14
--- OUTSIDE RECORDS SUMMARY | 2025-05-04 11:59 | XMS_ITS | Encounter Summary ---
Author Organization [facility] Address [address] [place] [address] Care Team Providers Care Snaker Driving Horses Name Role Phone Trevor Balderas MD Primary Care Provider [phone] Enoch Robles MD Unavailable [phone] Reason for Visit * Reason Comments Med Refill Encounter Details Date Type Department Care Team ([facility] st Contact Info) Description 06/09/2023 Refill [facility] [address] [place] [address] Andre Lyon MD [address] [place] [address] Paroxysmal atrial fibrillation (CMS/HCC) Social History Tobacco Use Types Packs/Day Years Used Date Smoking Tobacco: Never Smokeless Tobacco: Never Alcohol Use Standard Drinks/Week Comments Yes 0 (1 standard drink = 0.6 oz pur e alcohol) occasional Sex and Gender Information Value Date Recorded Sex Assigned at Male 12/31/2024 10:38 AM EDT Legal Sex Male 12:36 AM EDT Gender Identity Male 12/31/2024 10:38 AM EDT Sexual Orientation Heterosexual or Straight 10/2024 10:38 AM EDT documented as of this encounter Plan of Treatment Not on file documented as of this encounter Visit Diagnoses Diagnosis Paroxysmal atrial fibrillation (CMS/HCC) Atrial fibrillation documented in this encounter Care Teams Snaker Driving Horses Relationship Specialty Start Date End Date Trevor Balderas MD [address] [place] [address] PCP - General 05/22/22 Enoch Robles MD [address] [place] [address] [address] Referring Physician Gastroenterology 08/12/22 documented as of this encounter
--- OUTSIDE RECORDS SUMMARY | 2025-05-04 11:59 | XMS_ITS | Clinical Summary ---
Author Organization [facility] Address [address] [place] [address] Care Team Providers Care Nursing Informatics Analyst Name Role Phone Trevor Balderas MD Primary Care Provider [phone] Enoch Robles MD Unavailable [phone] Allergies No known active allergies Medications aspirin 81 mg EC tablet Take 81 mg by mouth in the morning. Active apixaban (Eliquis) 5 mg tabletIndications :Paroxysmal atrial fibrillation (CMS/HCC) Take 1 tablet (5 mg) by mouth in the morning and at bedtime. 180 tablet 3 4 Active atorvastatin (Lipitor) 80 mg tabletIndications :Coronary artery disease due to lipid rich plaque TAKE 1 TABLET BY MOUTH IN THE MORNING 90 tablet 3 5 Active lisinopril 20 mg tabletIndications :Essential hypertension TAKE 1 TABLET BY MOUTH IN THE MORNING 90 tablet 3 5 Active pantoprazole (ProtoNix) 40 mg EC tabletIndications :Gastroesophageal reflux disease without esophagitis TAKE 1 TABLET BY MOUTH ONCE DAILY DIRECTED 90 tablet 3 5 Active carvedilol (Coreg) 25 mg tabletIndications :Essential hypertension TAKE 1 TABLET BY MOUTH WITH MORNING AND EVENING MEALS 180 tablet 1 5 Active Active Problems Problem Noted Date Diagnosed Date GERD (gastroesophageal reflux disease) 5 Anemia 04/30/2024 Antiplatelet or antithrombotic long-term use Nonrheumatic mitral valve regurgitation 11/19/19 23 Assessment & Plan (11/18/2022 1:10 PM EDT): - per echo 10/2022 mild to moderate regurgitation Nonrheumatic tricuspid valve regurgitation 11/18 Assessment & Plan (11/18/2022 1:10 PM EDT): - mild regurgitation per recent echo 10/2022 Cholelithiasis 09/24/2022 Disorder of intervertebral disc of cervical spin e 09/24/2022 Fatigue 09/24/2022 Iron deficiency anemia 09/24/2022 group home current use of anticoagulant therapy 0 09/24/2022 Nausea 09/24/2022 Osteoarthritis 09/24/2022 Periumbilical abdominal pain 09/24/2022 Right lower quadrant abdominal pain 09/24/2022 Right upper quadrant abdominal pain 09/24/2022 Crohn's disease 07/04/2022 Paroxysmal atrial fibrillati on with rapid ventricular response 10/19/2021 Aortic valve regurgitation 02/13/2021 Assessment & Plan (11/18/2022 1:09 PM EDT): - history of mild regurgitation, none noted on recent echo 10/2022 Erectile dysfunction 02/12/2021 Peyronie's disease 02/12/2021 Coronary atherosclerosis 02/12/2021 Essential hypertension 02/12/2021 Assessment & Plan (11/18/2022 1:10 PM EDT): Hypertension is stable today - continue medication Chest pain 01/22/2021 Heart valve disease Hypertension Atrial fibrillation Assessment & Plan (11/18/2022 1:09 PM EDT): [id number] 2 ( hypertension, CAD) - continue Eliquis 5 mg twice daily Toprol 100 mg daily - we will proceed with A-fib ablation - tolerating Eliquis without any concerns of bleeding Coronary artery disease Assessment & Plan (11/18/2022 1:09 PM EDT): Coronary artery disease is Stable -s/p PCI with ERIC to LAD 01/26/21 (cath also noted severe prox and mid vessel to a short PDA and moderate dz to LCx) -Continue statin, BB - he has history of being on Plavix which was supposedly stopped after EGD Hyperlipidemia Assessment & Plan (11/18/2022 1:11 PM EDT): - continue Lipitor 80 mg Encounters Date Type Department Care Team Description 03/25/2025 Refill [facility] [address] [place] [address] Lindsey Pagan MD Essential hypertension from Last 3 Months Immunizations Immunization Administration Dates Next Due Unspecified Sars-Cov-2 Vaccination 08/27/2021,,12/21/2020 Family History Medical History Relation Name Comments Coronary artery disease Father Atrial fibrillation Mother heart valve disease Mother pulmonary hypertension Mother Relation Name Status Comments Father Mother Social History Tobacco Use Types Packs/Day Years Used Date Smoking Tobacco: Never Smokeless Tobacco: Never Tobacco Cessation:Counseling Given: Not Answered Alcohol Use Standard Drinks/Week Comments Yes 0 (1 standard drink = 0.6 oz pur e alcohol) occasional [place] Safety & Environment Answer Date Rec orded Fear of Current or Ex-Partner Not on file Emotionally Abused Not on file 10/23/2023 Physically Abused Not on file 10/23/2023 Sexually Abused Not on file 10/23/2023 Physically or Sexually Abused Not on file Sex and Gender Information Value Date Recorded Sex Assigned at Male 12/31/2024 10:38 AM EDT Legal Sex Male 12:36 AM EDT Gender Identity Male 12/31/2024 10:38 AM EDT Sexual Orientation Heterosexual or Straight 10/2024 10:38 AM EDT Last Filed Vital Signs Vital Sign Reading Time Taken Comments Blood Pressure 150/90 01/04/2025 1:49 PM EDT Pulse 64 01/04/2025 1:49 PM EDT Temperature 36.2 C (97.2 F) 11/21/2022 12:06 PM EDT Respiratory Rate 12 01/04/2025 1:49 PM EDT Oxygen Saturation 98% 01/04/2025 1:49 PM EDT Inhaled Oxygen Concentration - - Weight 91.4 kg (201 lb 9.6 oz) 01/04/2025 1:49 P M EDT Height 172.7 cm (5' 8 ) 01/04/2025 1:49 PM EDT Body Mass Index 30.65 01/04/2025 1:49 PM EDT Plan of Treatment Health Maintenance Due Date Last Done Comments CT Colonography 1959 Colonoscopy 1959 Colorectal Cancer Screening 1959 FIT-DNA 1959 FIT 1959 FOBT 1960 Medicare Annual Wellness (AWV) 1959 Sigmoidoscopy 1959 Depression Screening 1971 Pneumococcal Vaccine: 50+ Years (1 of 2 - PCV) 1978 Adult Tetanus 1981 Zoster Vaccines (1 of 2) 2009 Fall Risk Screening 2024 COVID-19 Vaccine ( season) 2024 08/27/2021, 08/27/2021, 01/12/2021, Additional history exists Influenza Vaccine (#1) 2025 HIB Vaccines Aged Out No longer eligi ble based on patient's age to complete this topic HPV Vaccines Aged Out No longer eligi ble based on patient's age to complete this topic IPV Vaccines Aged Out No longer eligi ble based on patient's age to complete this topic Meningococcal B Vaccine Aged Out No l onger eligible based on patient's age to complete this topic Meningococcal Vaccine Aged Out No dianna jefferson eligible based on patient's age to complete this topic Rotavirus Vaccines Aged Out No longer eligible based on patient's age to complete this topic Insurance [employer] MEDICARE Advance Directives * Full Code (Latest Code Status on File) Date Activated Date Inactivated Comments 11/21/2022 12:21 PM 11/21/2022 6:32 PM Care Teams Nursing Informatics Analyst Relationship Specialty [place] [address] [place] [address] [address] [address] PCP - General 05/22/22 Enoch Robles MD [address] [place], [place] [id number] Referring Physician Gastroenterology 08/12/22
--- NOTE | 2025-05-04 12:00 | CA_ITS ---
[facility] [place] Test Date: 2025-05-04 Pat Name: AYO ALICIA Department: Room: - Gender: Male Telescope Maintenance: Carmen Toussaint : 1960 Requested By: PERICO MCCABE Order Number: [id number] Reading MD: JARON NUÑEZ M.D. Interpretive Statements Summary of the findings: Right leg: SHADI= 1.42; TBI= 1.01. Doppler waveforms demonstrate multiphasic flow at the posterior tibial and dorsalis pedis arteries. Left leg: SHADI= 1.37; TBI= 1.23. Doppler waveforms demonstrate multiphasic flow at the posterior tibial and dorsalis pedis arteries. Segmental pressures: Segmental pressures show calcified non-compressible vessels bilaterally. Pulse volume recordings: PVRs at the high thigh, below knee, and ankle levels show normal waveforms. Conclusion: Calcified non-compressible vessels in the lower extremities. Arterial duplex ultrasound is recommended for better assessment. Electronically Signed On 05-04-2025 14:27:11 EDT by JARON NUÑEZ M.D.
--- OUTSIDE RECORDS SUMMARY | 2025-05-04 16:22 | XMS_ITS | CCD ---
Author Organization [facility] Care Team Providers Care Fountain Manager Name Role Phone UNKNOWN, PHYSICIAN Primary Care Unavailable UNKNOWN, PHYSICIAN Referring Unavailable ELTAHAWY, EHAB A Admitting Unavailable YOSEF, EHAB A Attending Unavailable Perico Mccabe Primary Care Physician MD Perico Mccabe Primary Care Provider [phone] MD Enoch Carnes Attending Provider Enoch Carnes Unavailable [phone] Javid WILLIS Attending Unavailable Andrey PROVIDERPerico Referring [...] Unavailable NILL ., DR DIAZ Admitting Unavailable CAMPO SECO, DR CUBA Mark Consulting Unavailable NILL ., DR DIAZ Consulting Unavailable HOY ., DR RIVER Attending Unavailable HOY ., DR RIVER Primary Care Unavailable HOY ., DR RIVER Consulting Unavailable FAIZAY ., DR RIVER Admsupa Unavailable MD Perico Mccabe Primary Care Provider [phone] MD Enoch Carnes Attending Provider LETHA MONTOYA [...] Unavailable MD Perico Mccabe Primary Care Provider [phone] Nelly Arias Attending Provider Enoch Carnes Admitting UnavailEnoch Duffy Attending Unavailbeth e Perico Mccabe Primary Care Unavailable Nelly Arias Admitting Unavailable Nelly Arias Attending Unavailable Perico Mccabe Primary Care Unavailable Perico Mccabe MD Primary Care Provider [phone] CUBA HAYWOOD Attending Unavailable CUBA HAYWOOD Admitting [...] Unavailable Perico Mccabe MD Primary Care Provider [phone] CHELSI KENT Attending Unavailable GLORIA PAGAN Attending Unavailable Medications Current Medications Medication Drug Class(es) Dates Sig (Normalized) Sig (Original) acetaminophen 500 mg oral tablet (5 sources) Start: 05-18-2024 take 2 tablets by mouth every six hours acetaminophen (TYLENOL) 500 mg tablet Take 2 tablets by mouth every 6 hours. 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; Translations: [CHCF CURRENT USE OF ASPIRIN] Onset: 3 Episodic Other aftercare (1 source) Other fpc (current) drug therapy; Translations: [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 CURRENT DRUG THERAPY] Onset: 3 Episodic Other [...] Onset: 07-08-2022 Episodic Other aftercare (1 source) 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; Translations: [CHCF CURRNT USE ANTICOAGULANTS] Onset: 05-10-2022 Episodic Other [...] Range Facility Office Visiton 01-04-2025 Follow-up visit [id number] Ayo Alicia 1960 M Date Provider Department Center 01/04/2025 [facility]GLORIA PAGAN [facility] Family History Problem Relation Age of Onset Atrial fibrillation Mother Other Mother Other Mother Coronary artery disease Father Family Status - Relation Status Age at Mother Father Level of Service:85816 [place] OFFICE/OUTPATIENT ESTABLISHED MOD MDM 30 MIN Reason for Visit and Comments: Follow-up [673228] - 6 month follow up Normal [facility] CNOVon 08-20-2024 CNOV Office Visit ([facility] ) AYO ALICIA ([id number]) 1960 M Date Time Provider Department 12/20/24 10:40 AM CUBA HAYWOOD [facility] During your visit today, we recorded the [...] spasms. 15 tablet 0 adalimumab (HUMIRA,CF, PEN ETIVBD-TS-JF) 80 mg/0.8 mL pen kit Inject 80 [...] MD Colorectal Surgery Referring Provider: CUBA HAYWOOD [[id number]] Allergies As of Date: 08/20/2024 (No Known [...] for muscle spasms. - adalimumab (HUMIRA,CF, PEN RTGVDL-AH-SR) 80 mg/0.8 mL pen kit Inject 80 mg (more content not included)... Normal [facility] 36on 08-03-2024 36 Goal BP is <130/90, raghav with hx of heart disease. Recommend heart healthy diet and exercise. Also recommend we increase his lisinopril, we can go up to 30mg daily (1.5 tablets of his current 20mg Rx). Follow-up BMP in 2-3 weeks. Thanks [facility] Office Visiton 07-20-2024 Follow-up visit [id number] Ayo Alicia 1960 M Date Provider Department Center 07/20/2024 [facility] Family History Problem Relation Age of Onset Atrial fibrillation Mother Other Mother Other Mother Coronary artery disease Father Family Status - Relation Status Age at Mother Father Level of Service:60727 [place] OFFICE/OUTPATIENT ESTABLISHED MOD [facility] 30 MIN Reason for Visit and Comments: Coronary Artery Disease [187] Hypertension [499103] Hyperlipidemia [182] [facility] CNOVon 06-04-2024 [facility] Office Visit ([facility] ) AYO ALICIA ([id number]) 1960 M Date Time Provider Department 06/04/24 12:20 PM PEARL CALDERON [facility] During your visit today, we recorded the [...] for internal providers or letter via the [employer] for external providers. Chief Complaint: [...] spasms. 15 tablet 0 adalimumab (HUMIRA,CF, PEN QISGLT-WQ-LX) 80 mg/0.8 mL pen kit Inject 80 [...] tenderness in (more content not included)... Normal [facility] CNDSon 05-18-2024 CNDS HNO ID: [id number] Author: CUBA HAYWOOD MD Service: Colorectal Author [...] tablet Commonly known as: COREG HUMIRA(CF) PEN EXPAAF-AV-DJ 80 mg/0.8 mL pen kit Generic drug: adalimumab lisinopril 20 mg tablet Commonly known as: ZESTRIL PROTONIX 40 mg tablet Generic drug: pantoprazole DR sildenafil 100 mg tablet Commonly known as: VIAGRA STOP taking these medications metroNIDAZOLE 500 mg tablet Commonly known as: FLAGYL neomycin 500 mg tablet Where to Get Your Medications These medications were sent to [facility] [address] [place] [address] Hours: Friday-Friday: 7am-7pm, Sat: 9am-1pm acetaminophen 500 mg tablet lactobacillus rhamnosus 10 billion cell capsule methocarbamol 750 mg tablet oxyCODONE IR 5 mg immediate release tablet Future Appointments Date Time Provider Department Center 06/04/2024 12:20 PM Pearl Calderon APRN.SERVICES MGR [facility] The patient's risk for 30-day readmission is determined using the following contributing factors: Pt variables contributing to increased readmission risk: 19 Most Recent BUN Result 10 Active Medication Orders (more content not included)... Normal [facility] THERAPY NTon 05-17-2024 THERAPY NT HNO ID: [id number] Author: ONEYDA EDWARDS, PT Service: Physical Therapy Author Type: Physical Therapist Type: Therapy (PT/OT/Speech/Resp) Filed: 05/17/2024 13:05 Note Text: PHYSICAL THERAPY MISSED VISIT SERVICE DATE: 05/17/2024 SERVICE TIME: 904 ROOM: [place] [address] Patient not seen due to pt ambulating independently per RN and OT ; will discharge PT order as patient has no further PT needs SIGNATURE: Oneyda Edwards, PT PATIENT NAME: Ayo Rodriguez Withem DATE: May 17, 2024 TIME: 1:04 PM [facility] THERAPY NT HNO ID: [id number] Author: BECCA MONTENEGRO OTR/Rose Service: Occupational Therapy Author Type: Occupational Therapist Type: Therapy (PT/OT/Speech/Resp) Filed: 05/17/2024 12:23 Note Text: OCCUPATIONAL THERAPY MISSED VISIT SERVICE DATE: 05/17/2024 SERVICE TIME: 1220 ROOM: [place] [address] Patient not seen due to Clinical Appropriateness (Pt ambulating unit independently. Pt reported to this therapist that he is doing well, and has no further need for OT. Pt agreeable to discharge at this time. No billable hours.). Pt discharged from OT at this time. SIGNATURE: LAURA Sosa/Rose PATIENT NAME: Ayo Rodriguez [place] DATE: May 17, 2024 TIME: 12:22 PM [facility] ALLIED HEALTHon 05-16-2024 ALLIED HEALTH HNO ID: [id number] Author: JEREMY MALDONADO RT(R) Service: ? Author [...] PATIENT PRESENTS WITH AN IMPLANTABLE OR ATTACHED REDRAWER: No RADIOLOGY DEPARTMENT: General X-ray: Exam(s) Completed: Abdomen X-Ray: Abdomen PERIPHERAL IV DATA: Not applicable SIGNED BY: RT Tonya(R) May 16, 2024 9:53 AM [facility] NURSING PROGon 05-16-2024 NURSING PROG HNO ID: [id number] Author: AFSANEH EDGE RN Service: Nursing Author Type: Registered Nurse Type: Nursing Progress Note Filed: 05/16/2024 11:03 Note Text: Daily Note: 0725: paged sent to [facility] regarding no lab order for AM. Awaiting response. 0733: per [facility], no labs needed at this time. [facility] XR ABDOMEN 1V SUPINEon 05-16 XR ABDOMEN [...] bowel. Could reflect postoperative ileus or obstruction Environmental Attorney: AARON Transcribe Date/Time: May 17 2024 7:20A Dictated by : SEBASTIEN ADORNO MD This examination was interpreted and the report reviewed and electronically signed by: SEBASTIEN ADORNO MD on May 17 2024 7:24AM EST [id number] Normal [facility] Basic metabolic 2000 panelon 05-15-2024 Anion gap [Moles/Vol] 8 mmol/L Normal 8-15 [facility] Comment on above: Order Comment: Speci men Type: TISSUE SPECIMEN Ordering Facility: [facility] Address: [address] [place] [address] Performed By: #### S #### [facility] CLIA [id number] [address] [place] [address] [place] [facility] CLIA [id number] [address] [place] [address] [place] Calcium [Mass/Vol] 8.3 mg/dL Low 8.5-10.2 [facility] Comment on above: Order Comment: Speci men Type: TISSUE SPECIMEN Ordering Facility: [facility] Address: [address] [place] [address] Performed By: #### S #### [facility] CLIA [id number] [address] [place] [address] [place] [facility] CLIA [id number] [address] [place] [address] [place] Chloride [Moles/Vol] 106 mmol/L Normal 98-107 [facility] Comment on above: Order Comment: Speci men Type: TISSUE SPECIMEN Ordering Facility: [facility] Address: [address] [place] [address] Performed By: #### S #### [facility] CLIA [id number] [address] [place] [address] [place] [facility] CLIA [id number] [address] [place] [address] [place] CO2 [Moles/Vol] 25 mmol/L Normal 22-30 [facility] Comment on above: Order Comment: Specgasper cho Type: TISSUE SPECIMEN Ordering Facility: [facility] Address: [address] [place] [address] Performed By: #### S #### [facility] CLIA [id number] [address] [place] [address] STATES [facility] CLIA [id number] [address] [place] [address] [place] Creatinine [Mass/Vol] 0.87 mg/dL Normal 0.73-1.22 [facility] Comment on above: Order Comment: Asuncion cho Type: TISSUE SPECIMEN Ordering Facility: [facility] Address: [address] [place] [address] Performed By: #### S #### [facility] CLIA [id number] [address] [place] [address] LAB CLIA [id number] [address] [place] [address] [place] Creatinine and Glomerular filtration rate.predicted panel (S/P/Bld) 96 mL/min/1.73m??? Normal >=60 [facility] Comment on above: Order Comment: Asuncion cho Type: TISSUE SPECIMEN Ordering Facility: [facility] Address: [address] [place] [address] Result Comment: Phyllis mated Glomerular Filtration Rate [...] actual GFR. Performed By: #### S #### [facility] CLIA [id number] [address] [place] [address] [place] [facility] CLIA [id number] [address] [place] [address] [place] Glucose [Mass/Vol] 119 mg/dL High 74-99 [facility] Comment on above: Order Comment: Specgasper men Type: TISSUE SPECIMEN Ordering Facility: [facility] Address: [address] [place] [address] Result Comment: The [place] Diabetes Association (ADA) provides guidance for cutoff [...] Standards of Medical Care in Diabetes 2016, [place] [employer]. Diabetes Care. 2016.39(Suppl 1). Performed By: #### S #### [facility] CLIA [id number] [address] [place] [address] [place] [facility] CLIA [id number] [address] [place] [address] [place] Potassium [Moles/Vol] 4.0 mmol/L Normal 3.7-5.1 [facility] Comment on above: Order Comment: Asuncion cho Type: TISSUE SPECIMEN Ordering Facility: [facility] Address: [address] [place] [address] Performed By: #### S #### [facility] CLIA [id number] [address] [place] [address] [place] [facility] CLIA [id number] [address] [place] [address] [place] Sodium [Moles/Vol] 139 mmol/L Normal 136-144 [facility] Comment on above: Order Comment: Asuncion cho Type: TISSUE SPECIMEN Ordering Facility: [facility] Address: [address] [place] [address] Performed By: #### S #### [facility] CLIA [id number] [address] [place] [address] [place] [facility] CLIA [id number] [address] [place] [address] [place] Urea nitrogen [Mass/Vol] 19 mg/dL Normal 9-24 [facility] Comment on above: Order Comment: Speci men Type: TISSUE SPECIMEN Ordering Facility: [facility] Address: [address] [place] [address] Performed By: #### S #### [facility] CLIA [id number] [address] [place] [address] [place] [facility] CLIA [id number] [address] [place] [address] [place] CBC W Auto Differential pane l (Bld)on 05-15-2024 Basophils (Bld) [#/Vol] 10*3/uL Normal <0.11 [facility] Comment on above: Order Comment: Speci men Type: TISSUE SPECIMEN Ordering Facility: [facility] Address: [address] [place] [address] Performed By: #### S #### [facility] CLIA [id number] [address] [place] [address] [place] [facility] CLIA [id number] [address] [place] [address] [place] Basophils/100 WBC (Bld) 0.2 % Normal [facility] Comment on above: Order Comment: Speci men Type: TISSUE SPECIMEN Ordering Facility: [facility] Address: [address] [place] [address] Performed By: #### S #### [facility] CLIA [id number] [address] [place] [address] [place] [facility] CLIA [id number] [address] [place] [address] [place] Differential cell count method Nom (Bld) Auto Normal [facility] Comment on above: Order Comment: Speci men Type: TISSUE SPECIMEN Ordering Facility: [facility] Address: [address] [place] [address] Performed By: #### S #### [facility] CLIA [id number] [address] [place] [address] [place] [facility] CLIA [id number] [address] [place] [address] [place] Eosinophils (Bld) [#/Vol] 0.07 10*3/uL Normal <0.46 [facility] Comment on above: Order Comment: Speci men Type: TISSUE SPECIMEN Ordering Facility: [facility] Address: [address] [place] [address] Performed By: #### S #### [facility] CLIA [id number] [address] [place] [address] [place] [facility] CLIA [id number] [address] [place] [address] [place] Eosinophils/100 WBC (Bld) 0.6 % Normal [facility] Comment on above: Order Comment: Speci men Type: TISSUE SPECIMEN Ordering Facility: [facility] Address: [address] [place] [address] Performed By: #### S #### [facility] CLIA [id number] [address] [place] [address] [place] [facility] CLIA [id number] [address] [place] [address] [place] Erythrocyte distribution width (RBC) [Ratio] 15.9 % High 11.5-15.0 [facility] Comment on above: Order Comment: Speci men Type: TISSUE SPECIMEN Ordering Facility: [facility] Address: [address] [place] [address] Performed By: #### S #### [facility] CLIA [id number] [address] [place] [address] [place] [facility] CLIA [id number] [address] [place] [address] [place] Hematocrit (Bld) [Volume fraction] 23.5 % Low 39.0-51.0 [facility] Comment on above: Order Comment: Speci men Type: TISSUE SPECIMEN Ordering Facility: [facility] Address: [address] [place] [address] Performed By: #### S #### [facility] CLIA [id number] [address] [place] [address] [place] [facility] CLIA [id number] [address] [place] [address] [place] Hemoglobin (Bld) [Mass/Vol] 7.1 g/dL Low 13.0-17.0 [facility] Comment on above: Order Comment: Speci men Type: TISSUE SPECIMEN Ordering Facility: [facility] Address: [address] [place] [address] Performed By: #### S #### [facility] CLIA [id number] [address] [place] [address] [place] [facility] CLIA [id number] [address] [place] [address] [place] Immature granulocytes (Bld) [#/Vol] 0.07 10*3/uL Normal <0.10 [facility] Comment on above: Order Comment: Speci men Type: TISSUE SPECIMEN Ordering Facility: [facility] Address: [address] [place] [address] Performed By: #### S #### [facility] IA [id number] [address] [place] [address] [place] [facility] CLIA [id number] [address] [place] [address] [place] Immature granulocytes/100 WBC (Bld) 0.6 % Normal [facility] Comment on above: Order Comment: Speci men Type: TISSUE SPECIMEN Ordering Facility: [facility] Address: [address] [place] [address] Performed By: #### S #### [facility] CLIA [id number] [address] [place] [address] [place] [facility] CLIA [id number] [address] [place] [address] [place] Lymphocytes (Bld) [#/Vol] 1.13 10*3/uL Normal 1.00-4.00 [facility] Comment on above: Order Comment: Speci men Type: TISSUE SPECIMEN Ordering Facility: [facility] Address: [address] [place] [address] Performed By: #### S #### [facility] CLIA [id number] [address] [place] [address] [place] [facility] CLIA [id number] [address] [place] [address] [place] Lymphocytes/100 WBC (Bld) 10.0 % Normal [facility] Comment on above: Order Comment: Speci men Type: TISSUE SPECIMEN Ordering Facility: [facility] Address: [address] [place] [address] Performed By: #### S #### [facility] CLIA [id number] [address] [place] [address] [place] [facility] CLIA [id number] [address] [place] [address] [place] MCH (RBC) [Entitic mass] 26.2 pg Normal 26.0-34.0 [facility] Comment on above: Order Comment: Speci men Type: TISSUE SPECIMEN Ordering Facility: [facility] Address: [address] [place] [address] Performed By: #### S #### [facility] CLIA [id number] [address] [place] [address] [place] [facility] CLIA [id number] [address] [place] [address] [place] MCHC (RBC) [Mass/Vol] 30.2 g/dL Low 30.5-36.0 [facility] Comment on above: Order Comment: Speci men Type: TISSUE SPECIMEN Ordering Facility: [facility] Address: [address] [place] [address] Performed By: #### S #### [facility] CLIA [id number] [address] [place] [address] [place] [facility] CLIA [id number] [address] [place] [address] [place] MCV (RBC) [Entitic vol] 86.7 fL Normal 80.0-100.0 [facility] Comment on above: Order Comment: Speci men Type: TISSUE SPECIMEN Ordering Facility: [facility] Address: [address] [place] [address] Performed By: #### S #### [facility] CLIA [id number] [address] [place] [address] [place] [facility] CLIA [id number] [address] [place] [address] [place] Monocytes (Bld) [#/Vol] 0.98 10*3/uL High <0.87 [facility] Comment on above: Order Comment: Speci men Type: TISSUE SPECIMEN Ordering Facility: [facility] Address: [address] [place] [address] Performed By: #### S #### [facility] CLIA [id number] [address] [place] [address] [place] [facility] CLIA [id number] [address] [place] [address] [place] Monocytes/100 WBC (Bld) 8.7 % Normal [facility] Comment on above: Order Comment: Speci men Type: TISSUE SPECIMEN Ordering Facility: [facility] Address: [address] [place] [address] Performed By: #### S #### [facility] CLIA [id number] [address] [place] [address] [place] [facility] CLIA [id number] [address] [place] [address] [place] Neutrophils (Bld) [#/Vol] 9.02 10*3/uL High 1.45-7.50 [facility] Comment on above: Order Comment: Speci men Type: TISSUE SPECIMEN Ordering Facility: [facility] Address: [address] [place] [address] Performed By: #### S #### [facility] CLIA [id number] [address] [place] [address] [place] [facility] CLIA [id number] [address] [place] [address] [place] Neutrophils/100 WBC (Bld) 79.9 % Normal [facility] Comment on above: Order Comment: Speci men Type: TISSUE SPECIMEN Ordering Facility: [facility] Address: [address] [place] [address] Performed By: #### S #### [facility] CLIA [id number] [address] [place] [address] [place] [facility] CLIA [id number] [address] [place] [address] [place] Nucleated RBC (Bld) [#/Vol] 10*3/uL Normal <0.01 [facility] Comment on above: Order Comment: Speci men Type: TISSUE SPECIMEN Ordering Facility: [facility] Address: [address] [place] [address] Performed By: #### S #### [facility] CLIA [id number] [address] [place] [address] [place] [facility] CLIA [id number] [address] [place] [address] [place] Nucleated RBC/100 WBC (Bld) [Ratio] 0.0 /100 WBC Normal [facility] Comment on above: Order Comment: Speci men Type: TISSUE SPECIMEN Ordering Facility: [facility] Address: [address] [place] [address] Performed By: #### S #### [facility] CLIA [id number] [address] [place] [address] [place] [facility] CLIA [id number] [address] [place] [address] [place] Platelet mean volume (Bld) [Entitic vol] 9.7 fL Normal 9.0-12.7 [facility] Comment on above: Order Comment: Speci men Type: TISSUE SPECIMEN Ordering Facility: [facility] Address: [address] [place] [address] Performed By: #### S #### [facility] CLIA [id number] [address] [place] [address] [place] [facility] CLIA [id number] [address] [place] [address] [place] Platelets (Bld) [#/Vol] 299 10*3/uL Normal 150-400 [facility] Comment on above: Order Comment: Speci men Type: TISSUE SPECIMEN Ordering Facility: [facility] Address: [address] [place] [address] Performed By: #### S #### [facility] CLIA [id number] [address] [place] [address] [place] [facility] CLIA [id number] [address] [place] [address] [place] RBC (Bld) [#/Vol] 2.71 10*6/uL Low 4.20-6.00 [facility] Comment on above: Order Comment: Speci men Type: TISSUE SPECIMEN Ordering Facility: [facility] Address: [address] [place] [address] Performed By: #### S #### [facility] CLIA [id number] [address] [place] [address] [place] [facility] CLIA [id number] [address] [place] [address] [place] WBC (Bld) [#/Vol] 11.29 10*3/uL High 3.70-11.00 [facility] Comment on above: Order Comment: Speci men Type: TISSUE SPECIMEN Ordering Facility: [facility] Address: [address] [place] [address] Performed By: #### S #### [facility] CLIA [id number] [address] [place] [address] [place] [facility] CLIA [id number] [address] [place] [address] [place] CBC panel Auto (Bld)on 05-15 Erythrocyte distribution width (RBC) [Ratio] 15.9 % High 11.5-15.0 [facility] Comment on above: Order Comment: Speci men Type: BLOOD SPECIMENOrdering Facility: [facility] Address: [address] [place] [address] Performed By: #### 5 8410-2 ####[facility] [id number] [address] [facility] Hematocrit (Bld) [Volume fraction] 27.6 % Low 39.0-51.0 [facility] Comment on above: Order Comment: Speci men Type: BLOOD SPECIMENOrdering Facility: [facility] Address: [address] [place] [address] Performed By: #### 5 8410-2 ####[facility] [id number] [address] [place] Hemoglobin (Bld) [Mass/Vol] 8.4 g/dL Low 13.0-17.0 [facility] Comment on above: Order Comment: Speci men Type: BLOOD SPECIMENOrdering Facility: [facility] Address: [address] [place] [address] Performed By: #### 5 8410-2 ####[facility] [id number] [address] [place] MCH (RBC) [Entitic mass] 26.3 pg Normal 26.0-34.0 [facility] Comment on above: Order Comment: Speci men Type: BLOOD SPECIMENOrdering Facility: [facility] Address: [address] [place] [address] Performed By: #### 5 8410-2 ####[facility] LABORATORYCLIA [id number] [address] [place] MCHC (RBC) [Mass/Vol] 30.4 g/dL Low 30.5-36.0 [facility] Comment on above: Order Comment: Speci men Type: BLOOD SPECIMENOrdering Facility: [facility] Address: [address] [place] [address] Performed By: #### 5 8410-2 ####[facility] LABORATORYCLIA [id number] [place] [id number] [place] MCV (RBC) [Entitic vol] 86.5 fL Normal 80.0-100.0 [facility] Comment on above: Order Comment: Speci men Type: BLOOD SPECIMENOrdering Facility: [facility] Address: [address] [place] [address] Performed By: #### 5 8410-2 ####[facility] [id number] [place] [address] [place] Nucleated RBC (Bld) [#/Vol] 10*3/uL Normal <0.01 [facility] Comment on above: Order Comment: Speci men Type: BLOOD SPECIMENOrdering Facility: [facility] Address: [address] [place] [address] Performed By: #### 5 8410-2 ####[facility] [id number] [place] [address] [place] Platelet mean volume (Bld) [Entitic vol] 9.2 fL Normal 9.0-12.7 [facility] Comment on above: Order Comment: Speci men Type: BLOOD SPECIMENOrdering Facility: [facility] Address: [address] [place] [address] Performed By: #### 5 8410-2 ####[facility] [id number] [place] [address] [place] Platelets (Bld) [#/Vol] 382 10*3/uL Normal 150-400 [facility] Comment on above: Order Comment: Speci men Type: BLOOD SPECIMENOrdering Facility: [facility] Address: [address] [place] [address] Performed By: #### 5 8410-2 ####[facility] [id number] [place] [address] [place] RBC (Bld) [#/Vol] 3.19 10*6/uL Low 4.20-6.00 [facility] Comment on above: Order Comment: Speci men Type: BLOOD SPECIMENOrdering Facility: [facility] Address: [address] [place] [address] Performed By: #### 5 8410-2 ####[facility] [id number] [place] [address] [place] WBC (Bld) [#/Vol] 12.88 10*3/uL High 3.70-11.00 [facility] Comment on above: Order Comment: Speci men Type: BLOOD SPECIMENOrdering Facility: [facility] Address: [address] [place] [address] Performed By: #### 5 8410-2 ####[facility] [id number] [place] [address] [place] Magnesium SerPl-mCncon 05-15 Magnesium [Mass/Vol] 1.9 mg/dL Normal 1.7-2.3 [facility] Comment on above: Order Comment: Speci men Type: TISSUE SPECIMEN Ordering Facility: [facility] Address: [address] [place] [address] Performed By: #### S #### [facility] CLIA [id number] [address] [place] [address] [place] [facility] CLIA [id number] [address] [place] [address] [place] Basic metabolic 2000 panelon 05-14-2024 Anion gap [Moles/Vol] 11 mmol/L Normal 8-15 [facility] Comment on above: Order Comment: Speci men Type: BLOOD SPECIMENOrdering Facility: [facility] Address: [address] [place] [address] Performed By: #### 2 4321-2, 46530-3 ####[facility]ORYCLIA [id number] [place] [address] [place] Calcium [Mass/Vol] 8.3 mg/dL Low 8.5-10.2 [facility] Comment on above: Order Comment: Speci men Type: BLOOD SPECIMENOrdering Facility: [facility] Address: [address] [place] [address] Performed By: #### 2 4321-2, ####[facility] LABORATORYCLIA [id number] [place] [address] [place] Chloride [Moles/Vol] 104 mmol/L Normal 98-107 [facility] Comment on above: Order Comment: Speci men Type: BLOOD SPECIMENOrdering Facility: [facility] Address: [address] [place] [address] Performed By: #### 2 4321-2, ####[facility] LABORATORYCLIA [id number] [place] [id number] [place] CO2 [Moles/Vol] 22 mmol/L Normal 22-30 [facility] Comment on above: Order Comment: Speci men Type: BLOOD SPECIMENOrdering Facility: [facility] Address: [address] [place] [address] Performed By: #### 2 432-2, ####[facility] LABORATORYCLIA [id number] [place] [id number] [place] Creatinine [Mass/Vol] 0.92 mg/dL Normal 0.73-1.22 [facility] Comment on above: Order Comment: Speci men Type: BLOOD SPECIMENOrdering Facility: [facility] Address: [address] [place] [address] Performed By: #### 2 432-2, ####[facility] LABORATORYCLIA [id number] [place] [id number] [facility] Creatinine and Glomerular filtration rate.predicted panel (S/P/Bld) 92 mL/min/1.73m??? Normal >=60 [facility] Comment on above: Order Comment: Speci men Type: BLOOD SPECIMENOrdering Facility: [facility] Address: [address] [place] [address] Result Comment: Phyllis mated Glomerular Filtration Rate [...] Performed By: #### 2 43209-02, ####[facility]ORYCLIA [id number] [place] [id number] [place] Glucose [Mass/Vol] 153 mg/dL High 74-99 [facility] Comment on above: Order Comment: Speci men Type: BLOOD SPECIMENOrdering Facility: [facility] Address: [address] [place] [address] Result Comment: The [place] [employer] (ADA) provides guidance for cutoff [...] Standards of Medical Care in Diabetes 2016, [place] [employer]. Diabetes Care. 2016.39(Suppl 1). Performed By: #### 2 4320-10, ####[facility]ORYCLIA [id number] [place] [id number] [place] Potassium [Moles/Vol] 4.2 mmol/L Normal 3.7-5.1 [facility] Comment on above: Order Comment: Speci men Type: BLOOD SPECIMENOrdering Facility: [facility] Address: [address] [place] [address] Performed By: #### 2 4320-10, ####[facility]ORYCLIA [id number] [place] [id number] [place] Sodium [Moles/Vol] 137 mmol/L Normal 136-144 [facility] Comment on above: Order Comment: Speci men Type: BLOOD SPECIMENOrdering Facility: [facility] Address: [address] [place] [address] Performed By: #### 2 4320-10, ####[facility] [id number] [place] [id number] [place] Urea nitrogen [Mass/Vol] 17 mg/dL Normal 9- [facility] Comment on above: Order Comment: Speci men Type: BLOOD SPECIMENOrdering Facility: [facility] Address: [address] [place] [address] Performed By: #### 2 4321-2, ####[facility] [id number] [place] [id number] [place] CBC W Auto Differential pane l (Bld)on 05-14-2024 Basophils (Bld) [#/Vol] 10*3/uL Normal <0.11 [facility] Comment on above: Order Comment: Speci men Type: TISSUE SPECIMEN Ordering Facility: [facility] Address: [address] [place] [address] Performed By: #### S #### [facility] CLIA [id number] [address] [place] [address] [place] [facility] CLIA [id number] [address] [place] [address] [place] Basophils/100 WBC (Bld) 0.1 % Normal [facility] Comment on above: Order Comment: Speci men Type: TISSUE SPECIMEN Ordering Facility: [facility] Address: [address] [place] [address] Performed By: #### S #### [facility] CLIA [id number] [address] [place] [address] [place] [facility] CLIA [id number] [address] [place] [address] [place] Differential cell count method Nom (Bld) Auto Normal [facility] Comment on above: Order Comment: Speci men Type: TISSUE SPECIMEN Ordering Facility: [facility] Address: [address] [place] [address] Performed By: #### S #### [facility] CLIA [id number] [address] [place] [address] [place] [facility] CLIA [id number] [address] [place] [address] [place] Eosinophils (Bld) [#/Vol] 10*3/uL Normal <0.46 [facility] Comment on above: Order Comment: Speci men Type: TISSUE SPECIMEN Ordering Facility: [facility] Address: [address] [place] [address] Performed By: #### S #### [facility] CLIA [id number] [address] [place] [address] [place] [facility] CLIA [id number] [address] [place] [address] [place] Eosinophils/100 WBC (Bld) 0.0 % Normal [facility] Comment on above: Order Comment: Speci men Type: TISSUE SPECIMEN Ordering Facility: [facility] Address: [address] [place] [address] Performed By: #### S #### [facility] CLIA [id number] [address] [place] [address] [place] [facility] CLIA [id number] [address] [place] [address] [place] Erythrocyte distribution width (RBC) [Ratio] 15.0 % Normal 11.5-15.0 [facility] Comment on above: Order Comment: Speci men Type: TISSUE SPECIMEN Ordering Facility: [facility] Address: [address] [place] [address] Performed By: #### S #### [facility] CLIA [id number] [address] [place] [address] [place] [facility] CLIA [id number] [address] [place] [address] [place] Hematocrit (Bld) [Volume fraction] 24.4 % Low 39.0-51.0 [facility] Comment on above: Order Comment: Speci men Type: TISSUE SPECIMEN Ordering Facility: [facility] Address: [address] [place] [address] Performed By: #### S #### [facility] CLIA [id number] [address] [place] [address] [place] [facility] CLIA [id number] [address] [place] [address] [place] Hemoglobin (Bld) [Mass/Vol] 7.7 g/dL Low 13.0-17.0 [facility] Comment on above: Order Comment: Speci men Type: TISSUE SPECIMEN Ordering Facility: [facility] Address: [address] [place] [address] Performed By: #### S #### [facility] CLIA [id number] [address] [place] [address] [place] [facility] CLIA [id number] [address] [place] [address] [place] Immature granulocytes (Bld) [#/Vol] 0.06 10*3/uL Normal <0.10 [facility] Comment on above: Order Comment: Speci men Type: TISSUE SPECIMEN Ordering Facility: [facility] Address: [address] [place] [address] Performed By: #### S #### [facility] CLIA [id number] [address] [place] [address] [place] [facility] CLIA [id number] [address] [place] [address] [place] Immature granulocytes/100 WBC (Bld) 0.5 % Normal [facility] Comment on above: Order Comment: Speci men Type: TISSUE SPECIMEN Ordering Facility: [facility] Address: [address] [place] [address] Performed By: #### S #### [facility] CLIA [id number] [address] [place] [address] [place] [facility] CLIA [id number] [address] [place] [address] [place] Lymphocytes (Bld) [#/Vol] 0.45 10*3/uL Low 1.00-4.00 [facility] Comment on above: Order Comment: Speci men Type: TISSUE SPECIMEN Ordering Facility: [facility] Address: [address] [place] [address] Performed By: #### S #### [facility] CLIA [id number] [address] [place] [address] [place] [facility] CLIA [id number] [address] [place] [address] [place] Lymphocytes/100 WBC (Bld) 3.7 % Normal [facility] Comment on above: Order Comment: Speci men Type: TISSUE SPECIMEN Ordering Facility: [facility] Address: [address] [place] [address] Performed By: #### S #### [facility] CLIA [id number] [address] [place] [address] [place] [facility] CLIA [id number] [address] [place] [address] [place] MCH (RBC) [Entitic mass] 26.6 pg Normal 26.0-34.0 [facility] Comment on above: Order Comment: Speci men Type: TISSUE SPECIMEN Ordering Facility: [facility] Address: [address] [place] [address] Performed By: #### S #### [facility] [place] [id number] [address] [place] [address] [place] [facility] CLIA [id number] [address] [place] [address] [place] MCHC (RBC) [Mass/Vol] 31.6 g/dL Normal 30.5-36.0 [facility] Comment on above: Order Comment: Speci men Type: TISSUE SPECIMEN Ordering Facility: [facility] Address: [address] [place] [address] Performed By: #### S #### [facility] [place] [id number] [address] [place] [address] [place] [facility] CLIA [id number] [address] [place] [address] [place] MCV (RBC) [Entitic vol] 84.4 fL Normal 80.0-100.0 [facility] Comment on above: Order Comment: Speci men Type: TISSUE SPECIMEN Ordering Facility: [facility] Address: [address] [place] [address] Performed By: #### S #### [facility] CLIA [id number] [address] [place] [address] [place] [facility] CLIA [id number] [address] [place] [address] [place] Monocytes (Bld) [#/Vol] 0.92 10*3/uL High <0.87 [facility] Comment on above: Order Comment: Speci men Type: TISSUE SPECIMEN Ordering Facility: [facility] Address: [address] [place] [address] Performed By: #### S #### [facility] CLIA [id number] [address] [place] [address] [place] [facility] CLIA [id number] [address] [place] [address] [place] Monocytes/100 WBC (Bld) 7.6 % Normal [facility] Comment on above: Order Comment: Speci men Type: TISSUE SPECIMEN Ordering Facility: [facility] Address: [address] [place] [address] Performed By: #### S #### [facility] CLIA [id number] [address] [place] [address] [place] [facility] CLIA [id number] [address] [place] [address] [place] Neutrophils (Bld) [#/Vol] 10.69 10*3/uL High 1.45-7.50 [facility] Comment on above: Order Comment: Speci men Type: TISSUE SPECIMEN Ordering Facility: [facility] Address: [address] [place] [address] Performed By: #### S #### [facility] CLIA [id number] [address] [place] [address] [place] [facility] CLIA [id number] [address] [place] [address] [place] Neutrophils/100 WBC (Bld) 88.1 % Normal [facility] Comment on above: Order Comment: Speci men Type: TISSUE SPECIMEN Ordering Facility: [facility] Address: [address] [place] [address] Performed By: #### S #### [facility] CLIA [id number] [address] [place] [address] [place] [facility] CLIA [id number] [address] [place] [address] [place] Nucleated RBC (Bld) [#/Vol] 10*3/uL Normal <0.01 [facility] Comment on above: Order Comment: Speci men Type: TISSUE SPECIMEN Ordering Facility: [facility] Address: [address] [place] [address] Performed By: #### S #### [facility] CLIA [id number] [address] [place] [address] [place] [facility] CLIA [id number] [address] [place] [address] [place] Nucleated RBC/100 WBC (Bld) [Ratio] 0.0 /100 WBC Normal [facility] Comment on above: Order Comment: Speci men Type: TISSUE SPECIMEN Ordering Facility: [facility] Address: [address] [place] [address] Performed By: #### S #### [facility] CLIA [id number] [address] [place] [address] [place] [facility] CLIA [id number] [address] [place] [address] [place] Platelet mean volume (Bld) [Entitic vol] 9.5 fL Normal 9.0-12.7 [facility] Comment on above: Order Comment: Speci men Type: TISSUE SPECIMEN Ordering Facility: [facility] Address: [address] [place] [address] Performed By: #### S #### [facility] CLIA [id number] [address] [place] [address] [place] [facility] CLIA [id number] [address] [place] [address] [place] Platelets (Bld) [#/Vol] 291 10*3/uL Normal 150-400 [facility] Comment on above: Order Comment: Speci men Type: TISSUE SPECIMEN Ordering Facility: [facility] Address: [address] [place] [address] Performed By: #### S #### [facility] CLIA [id number] [address] [place] [address] [place] [facility] CLIA [id number] [address] [place] [address] [place] RBC (Bld) [#/Vol] 2.89 10*6/uL Low 4.20-6.00 [facility] Comment on above: Order Comment: Speci men Type: TISSUE SPECIMEN Ordering Facility: [facility] Address: [address] [place] [address] Performed By: #### S #### [facility] CLIA [id number] [address] [place] [address] [place] [facility] CLIA [id number] [address] [place] [address] [place] WBC (Bld) [#/Vol] 12.13 10*3/uL High 3.70-11.00 [facility] Comment on above: Order Comment: Speci men Type: TISSUE SPECIMEN Ordering Facility: [facility] Address: [address] [place] [address] Performed By: #### S #### [facility] CLIA [id number] [address] [place] [address] [place] [facility] CLIA [id number] [address] [place] [address] [place] CBC panel Auto (Bld)on 05-14 Erythrocyte distribution width (RBC) [Ratio] 15.4 % High 11.5-15.0 [facility] Comment on above: Order Comment: Speci men Type: BLOOD SPECIMENOrdering Facility: [facility] Address: [address] [place] [address] Performed By: #### 5 8410-2 ####[facility]ORYCLIA [id number] [address] [place] Hematocrit (Bld) [Volume fraction] 26.3 % Low 39.0-51.0 [facility] Comment on above: Order Comment: Speci men Type: BLOOD SPECIMENOrdering Facility: [facility] Address: [address] [place] [address] Performed By: #### 5 8410-2 ####[facility] LABORATORYCLIA [id number] [place] [address] [place] Hemoglobin (Bld) [Mass/Vol] 8.3 g/dL Low 13.0-17.0 [facility] Comment on above: Order Comment: Speci men Type: BLOOD SPECIMENOrdering Facility: [facility] Address: [address] [place] [address] Performed By: #### 5 8410-2 ####[facility] LABORATORYCLIA [id number] [address] [place] MCH (RBC) [Entitic mass] 26.6 pg Normal 26.0-34.0 [facility] Comment on above: Order Comment: Speci men Type: BLOOD SPECIMENOrdering Facility: [facility] Address: [address] [place] [address] Performed By: #### 5 8410-2 ####DEVIN LABORATORYCLIA [id number] [address] [place] MCHC (RBC) [Mass/Vol] 31.6 g/dL Normal 30.5-36.0 [facility] Comment on above: Order Comment: Speci men Type: BLOOD SPECIMENOrdering Facility: [facility] Address: [address] [place] [address] Performed By: #### 5 8410-2 ####[facility] LABORATORYCLIA [id number] [place] [address] [place] MCV (RBC) [Entitic vol] 84.3 fL Normal 80.0-100.0 [facility] Comment on above: Order Comment: Speci men Type: BLOOD SPECIMENOrdering Facility: [facility] Address: [address] [place] [address] Performed By: #### 5 8410-2 ####[facility] FOR REHABILITATION LABORATORYCLIA [id number] [place] [id number] [place] Nucleated RBC (Bld) [#/Vol] 10*3/uL Normal <0.01 [facility] Comment on above: Order Comment: Speci men Type: BLOOD SPECIMENOrdering Facility: [facility] Address: [address] [place] [address] Performed By: #### 5 8410-2 ####[facility] LABORATORYCLIA [id number] [address] [place] Platelet mean volume (Bld) [Entitic vol] 9.5 fL Normal 9.0-12.7 [facility] Comment on above: Order Comment: Speci men Type: BLOOD SPECIMENOrdering Facility: [facility] Address: [address] [place] [address] Performed By: #### 5 8410-2 ####[facility] LABORATORYCLIA [id number] [place] [address] [place] Platelets (Bld) [#/Vol] 382 10*3/uL Normal 150-400 [facility] Comment on above: Order Comment: Speci men Type: BLOOD SPECIMENOrdering Facility: [facility] Address: [address] [place] [address] Performed By: #### 5 8410-2 ####[facility] LABORATORYCLIA [id number] [place] [address] [place] RBC (Bld) [#/Vol] 3.12 10*6/uL Low 4.20-6.00 [facility] Comment on above: Order Comment: Speci men Type: BLOOD SPECIMENOrdering Facility: [facility] Address: [address] [place] [address] Performed By: #### 5 8410-2 ####[facility] LABORATORYCLIA [id number] [place] [id number] [place] WBC (Bld) [#/Vol] 17.27 10*3/uL High 3.70-11.00 [facility] Comment on above: Order Comment: Speci men Type: BLOOD SPECIMENOrdering Facility: [facility] Address: [address] [place] [address] Performed By: #### 5 8410-2 ####[facility] LABORATORYCLIA [id number] [place] [address] [place] Magnesium SerPl-mCncon 05-14 Magnesium [Mass/Vol] 1.4 mg/dL Low 1.7-2.3 [facility] Comment on above: Order Comment: Speci men Type: BLOOD SPECIMENOrdering Facility: [facility] Address: [address] [place] [address] Performed By: #### 2 4321-2, 57328-1 ####[facility] LABORATORYCLIA [id number] [place] [id number] [place] NURSING PROGon 05-14-2024 NURSING PROG HNO ID: [id number] Author: LUI NGO RN Service: Nursing Author Type: Registered Nurse Type: Nursing Progress Note Filed: 05/14/2024 02:19 Note Text: 2131: pt AANDOx3. C/o 3/10 pain to abdomen. Denies nausea at this time. No flatus since surgery. Tolerating ice chips and popsicles. Midline and lap sites GABRIELA with glue. Dilaudid RULES EXAMINER in use. Perez draining keith urine. A-fib on telemetry. Lungs diminished on RA. No needs at this time. 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 Entry To [...] Muscle Weakness (generalized) TREATMENT INTERVENTIONS Evaluation, Self Residential Management (30134) Timed Code Treatment (minutes): 10 Skilled Treatment Time (minutes): 25 TRAINING AND EDUCATION PROVIDED Activity Adaptation/Can Cutter y Strategies, Adaptive Equipment/DME, Assistive Device Use, Bed Mobility, Benefits of In-Hospital Mobility, Discharge Planning, Disease Specific Education, Energy Conservation, Expected Functional Level, Precautions/Restrictio ns, Role of Occupational Therapy, Positioning, Safety/Judgment, Standing Balance to Improve [place] with ADLs/Self-Care, Transfer - Bed to Chair, [...] May 14, 2024 TIME: 10:51 AM Normal [facility] THERAPY NT HNO ID: [id number] Author: ONEYDA EDWARDS, PT Service: Physical Therapy Author Type: Physical Therapist Type: Therapy (PT/OT/Speech/Resp) Filed: 05/14/2024 09:57 Note Text: Physical Therapy Evaluation Summary SERVICE DATE: 05/14/2024 SERVICE TIME: 904 to 930 ROOM: [place] [address] PT 6 Clicks Score: 21 DISCHARGE RECOMMENDATIONS [...] Significant Other 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) Entry To Home: Stairs, With Rail Number [...] and signs-other TREATMENT INTERVENTIONS Evaluation, Gait Training (76668) Timed Code Treatment (minutes): 11 Skilled Treatment [...] DATE: May 14, 2024 TIME: 9:57 AM [facility] ANES POSTPROC EVALon 024 ANES POSTPROC EVAL HNO ID: [id number] Author: ORLANDO TINSLEY MD Service: Anesthesiology Author Type: Anesthesiologist Type: Anesthesia Postprocedure Evaluation Filed: 05/13/2024 12:03 Note Text: POST ANESTHESIA EVALUATION NOTE : 1960 Procedure Summary Date: 05/13/24 Room / Location: [place] [address] / OR Anesthesia Start: 742 Anesthesia Stop: [...] May 13, 2024 TIME: 12:03 PM CSN: [id number] [facility] ANES PRE-OPon 05-13-2024 ANES PRE-OP HNO ID: [id number] Author: ORLANDO TINSLEY MD Service: Anesthesiology Author [...] May 13, 2024 TIME: 7:27 AM CSN: [id number] [facility] BRIEF OP NOTon 05-13-2024 BRIEF OP NOT HNO ID: [id number] Author: JOSE J JOHNS MD Service: Colorectal Author Type: Resident Type: Brief Op Note Filed: 05/13/2024 10:56 Note Text: DDSI BRIEF OP NOTE LOG ID: [id number] SURGERY/PROCEDURE DATE: 05/13/2024 INCISION/PROCEDURE START TIME: 8:27 AM INCISION CLOSE/PROCEDURE END TIME: 10:28 AM SURGEON(S)/PROCEDURALI ST(S) AND ASSOCIATE SCIENTIST(S): Surgeons and Role: * Cuba Haywood MD [...] 13, 2024 TIME: 10:49 AM PAGER/CONTACT #: [facility] NURSING PROGon 05-13-2024 NURSING PROG HNO ID: [id number] Author: RENEE CAICEDO RN Service: ? Author Type: Registered Nurse Type: Nursing Progress Note Filed: 05/13/2024 13:40 Note Text: Transfer Note: PATIENT NAME: Ayo Alicia Patient Location: [place] [address]/RX4L-56 Room: [place] [address] Patient transferred into room/unit PK314 in stable condition. Actions taken: No futher actions taken at this time. Will continue to monitor and check with patient. [facility] NURSING PROG HNO ID: [id number] Author: DAMARI DAY RN Service: Nursing Author Type: Registered Nurse Type: Nursing Progress Note Filed: 05/13/2024 13:35 Note Text: Transfer Note: PATIENT NAME: Ayo Alicia Patient Location: [place] [address]/SH9X-90 Room: [place] [address] Patient transferred into room/unit [facility] room 314 in stable condition. Actions taken: No futher actions taken at this time. Will continue to monitor and check with patient. Normal [facility] OPERATIVE NOon 05-13-2024 OPERATIVE NO HNO ID: [id number] Author: CUBA HAYWOOD MD Service: Colorectal Author Type: Physician Type: Operative Report Filed: 05/15/2024 18:24 Note Text: COLON AND RECTAL SURGERY OPERATIVE REPORT PATIENT NAME: Ayo Alicia ADMISSION DATE: 05/13/2024 LOG ID: [id number] SURGERY/PROCEDURE DATE: 05/13/2024 INCISION/PROCEDURE START TIME: 8:27 AM INCISION CLOSE/PROCEDURE END TIME: 10:28 AM AGE: [age] year old SEX: male SURGEON(S)/PROCEDURALI ST(S) AND ASSOCIATE SCIENTIST(S): Surgeons and Role: * Cuba Haywood MD [...] were divided with JETHRO-80 purple stapler. A sgyg-my-izvt functional end-to-end anastomosis was created using a [...] Surgery Division of Colon and Rectal Surgery [facility] PT EDon 05-13-2024 PT ED HNO ID: [id number] Author: BECCA OZUNA RN Service: ? Author [...] (RECOMMENDATION): None Electronically Signed By: Becca Ozuna [facility] SURGICAL PATHOLOGYon 024 ADDENDUM 1: [facility] Comment on above: Order Comment: Speci men Type: TISSUE SPECIMEN [facility] Address: [address] [place] [address] Result Comment: A CD 10 immunostain was inadvertently omitted from the final report. The result is negative in the lymphoid infiltrate. There is no change to the final diagnosis. Addendum electronically signed by Neda Clarke DO on 06/09/2024 at 3:03 PM Performed By: #### S #### [facility] CLIA [id number] [address] [place] [address] LAB CLIA [id number] [address] [place] [address] OF [facility] REPORT [facility] Comment on above: Order Comment: Speci men Type: TISSUE SPECIMEN [facility] Address: [address] [place] [address] Result Comment: Surg [facility] Pathology Report Case: [id number] Authorizing Provider: Cuba Haywood MD Collected: 05/13/2024 09:36 AM Ordering Location: [facility] Received: 05/13/2024 10:04 AM Operating Room Pathologist: Beto Mosley MD Specimen: Small Bowel, Terminal Ileum, Resection, terminal ileum AND CECUM Performed By: #### S #### [facility] CLIA [id number] [address] [place] [address] LAB CLIA [id number] [address] [place] [address] CLINICAL HISTORY Normal [facility] Comment on above: Order Comment: Speci men Type: TISSUE SPECIMEN [facility] Address: [address] [place] [address] Result Comment: Pre- op diagnosis: Crohn's disease of both small and large intestine without complication (HCC) [K50.80] Performed By: #### S #### [facility] CLIA [id number] [place] [facility] CLIA [id number] [address] [facility] [id number] DIAGNOSIS COMMENT Normal [facility] Comment on above: Order Comment: Speci men Type: TISSUE SPECIMEN [facility] Address: [address] [place] [address] Result Comment: The histologic findings in the [...] or CD7. CD21 highlights a few residual LONGTERM meshworks. CD20 stains fewer small B cells. [...] been determined by the performing laboratory within [facility]???s Josafat Naranjo Pathology and Laboratory Medicine Department ([facility], [facility], [facility], [facility], [facility], [facility], or [facility]) in a manner consistent with CLIA requirements. One or more of these tests have not been cleared or approved by the FDA. [facility] is regulated under CLIA as qualified to perform high-complexity testing. These tests are used for clinical purposes. They should not be regarded as investigational or for research. Positive and negative controls stain appropriately. Performed By: #### S #### [facility] CLIA [id number] [address] [place] [address] OF [facility] CLIA [id number] [address] [place] [address] FINAL DIAGNOSIS Normal [facility] Comment on above: Order Comment: Speci men Type: TISSUE SPECIMEN [facility] Address: [address] [place] [address] Result Comment: Term inal ileum, cecum, and appendix, ileocecectomy: - Segment of small bowel with multiple strictures, patchy chronic active enteritis, ulcers, pyloric gland metaplasia, and inflammatory-type polyps. - Retained endoscopy capsule. - Appendix with fibrolipomatous obliteration. - Cecum with no diagnostic abnormality. - Benign lymph nodes with paracortical hyperplasia. - See comment. JERose 05/17/2024 Performed By: #### S #### [facility] CLIA [id number] [address] [place] [address] STATES OF [facility] CLIA [id number] [address] [place] [address] FINAL PERFORMING LAB Normal [facility] Comment on above: Order Comment: Speci men Type: TISSUE SPECIMEN [facility] Address: [address] [place] [address] Result Comment: Diag nostic interpretation performed at [facility], [address] [place] [id number] CLIA# [id number] [employer]: Bette Mcmillan M.D. Performed By: #### S #### [facility] CLIA [id number] [address] [place] [id number] [place] [facility] CLIA [id number] [address] [facility] [id number] [place] GROSS DESCRIPTION Normal [facility] Comment on above: Order Comment: Speci men Type: TISSUE SPECIMEN [facility] Address: [address] [place] [address] Result Comment: A. S mall Bowel, Terminal [...] up to 1 cm in greatest dimension. Container Washer sections are submitted as follows: A1 perpendicular [...] 2024 11:35 AM Gross examination performed at [facility], [address] [place] [address] CLIA # [id number] Additional sections are submitted as follows: A17 four intact lymph nodes, A18 four intact lymph nodes. WE May 20, 2024 7:50 AM Gross examination performed at [facility], [address] [place] [address] Performed By: #### S #### [facility] CLIA [id number] [place] [address] LAB CLIA [id number] [address] [facility] [place] [address] [place] [facility]ONAL[facility] BIOMED2 [facility] Katerina 05-13-2024 T-CELL CLONALITY BIOMED2 OTHER Normal [facility] Comment on above: Order Comment: Speci men Type: TISSUE SPECIMEN [facility] Address: [address] [place] [address] Result Comment: [facility] Accession Number: [id number] Case #: [id number] Block #: A16 Sample Description: Terminal Ileum [...] beta (TCRB) and gamma (TCRG) chain loci ([employer], [place], [place]). Fluorescently labeled PCR products were analyzed [...] developed and its performance characteristics determined by [facility]'s Pathology and Laboratory Medicine Department. It has not been cleared or approved by the FDA. [facility]'s Pathology and Laboratory Medicine Department is regulated under CLIA as certified to perform high-complexity testing. This test is used for clinical purposes. It should not be regarded as investigational or for research. Testing and interpretation performed at [facility], [address] [place] [address]. 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 - adalimumab (HUMIRA,CF, PEN TLGYBD-ZS-CV) 80 mg/0.8 mL pen kit Inject 80 [...] Status:Closed by ERNA MONTOYA on 05/07/24 Normal [facility] CBC W Auto Differential pane l (Bld)on 04-30-2024 Basophils (Bld) [#/Vol] 0.04 10*3/uL Normal <0.11 [facility] Comment on above: Order Comment: Speci men Type: BLOOD SPECIMEN [facility] Address: [address] [place] [address] Performed By: #### 5 7021-8 #### [facility] CLIA [id number] [address] [place] [address] [place] Basophils/100 WBC (Bld) 0.7 % Normal [facility] Comment on above: Order Comment: Speci men Type: BLOOD SPECIMEN [facility] Address: [address] [place] [address] Performed By: #### 5 7021-8 #### [facility] CLIA [id number] [address] [place] [address] [place] Differential cell count method Nom (Bld) Auto Normal [facility] Comment on above: Order Comment: Speci men Type: BLOOD SPECIMEN [facility] Address: [address] [place] [address] Performed By: #### 5 7021-8 #### [facility] CLIA [id number] [address] [place] [address] [place] Eosinophils (Bld) [#/Vol] 0.21 10*3/uL Normal <0.46 [facility] Comment on above: Order Comment: Speci men Type: BLOOD SPECIMEN [facility] Address: [address] [place] [address] Performed By: #### 5 7021-8 #### [facility] CLIA [id number] [address] [place] [address] [place] Eosinophils/100 WBC (Bld) 3.6 % Normal [facility] Comment on above: Order Comment: Speci men Type: BLOOD SPECIMEN [facility] Address: [address] [place] [address] Performed By: #### 5 7021-8 #### [facility] CLIA [id number] [address] [place] [address] [place] Erythrocyte distribution width (RBC) [Ratio] 15.2 % High 11.5-15.0 [facility] Comment on above: Order Comment: Speci men Type: BLOOD SPECIMEN [facility] Address: [address] [place] [address] Performed By: #### 5 7021-8 #### [facility] CLIA [id number] [address] [place] [address] [place] Hematocrit (Bld) [Volume fraction] 26.4 % Low 39.0-51.0 [facility] Comment on above: Order Comment: Speci men Type: BLOOD SPECIMEN [facility] Address: [address] [place] [address] Performed By: #### 5 7021-8 #### [facility] CLIA [id number] [address] [place] [address] [place] Hemoglobin (Bld) [Mass/Vol] 7.7 g/dL Low 13.0-17.0 [facility] Comment on above: Order Comment: Speci men Type: BLOOD SPECIMEN [facility] Address: [address] [place] [address] Performed By: #### 5 7021-8 #### [facility] CLIA [id number] [address] [place] [address] [place] Immature granulocytes (Bld) [#/Vol] 0.03 10*3/uL Normal <0.10 [facility] Comment on above: Order Comment: Speci men Type: BLOOD SPECIMEN [facility] Address: [address] [place] [address] Performed By: #### 5 7021-8 #### [facility] CLIA [id number] [address] [place] [address] [place] Immature granulocytes/100 WBC (Bld) 0.5 % Normal [facility] Comment on above: Order Comment: Speci men Type: BLOOD SPECIMEN [facility] Address: [address] [place] [address] Performed By: #### 5 7021-8 #### [facility] CLIA [id number] [address] [place] [address] [place] Lymphocytes (Bld) [#/Vol] 1.32 10*3/uL Normal 1.00-4.00 [facility] Comment on above: Order Comment: Speci men Type: BLOOD SPECIMEN [facility] Address: [address] [place] [address] Performed By: #### 5 7021-8 #### [facility] CLIA [id number] [address] [place] [address] [place] Lymphocytes/100 WBC (Bld) 22.5 % Normal [facility] Comment on above: Order Comment: Speci men Type: BLOOD SPECIMEN [facility] Address: [address] [place] [address] Performed By: #### 5 7021-8 #### [facility] CLIA [id number] [address] [place] [address] [place] MCH (RBC) [Entitic mass] 25.3 pg Low 26.0-34.0 [facility] Comment on above: Order Comment: Speci men Type: BLOOD SPECIMEN [facility] Address: [address] [place] [address] Performed By: #### 5 7021-8 #### [facility] CLIA [id number] [address] [place] [address] [place] MCHC (RBC) [Mass/Vol] 29.2 g/dL Low 30.5-36.0 [facility] Comment on above: Order Comment: Speci men Type: BLOOD SPECIMEN [facility] Address: [address] [place] [address] Performed By: #### 5 7021-8 #### [facility] CLIA [id number] [address] [place] [address] [place] MCV (RBC) [Entitic vol] 86.8 fL Normal 80.0-100.0 [facility] Comment on above: Order Comment: Speci men Type: BLOOD SPECIMEN [facility]ing [facility]: [facility] Address: [address] [place] [address] Performed By: #### 5 7021-8 #### [facility] CLIA [id number] [address] [place] [address] [place] Monocytes (Bld) [#/Vol] 0.62 10*3/uL Normal <0.87 [facility] Comment on above: Order Comment: Speci men Type: BLOOD SPECIMEN [facility]ing [facility]: [facility] Address: [address] [place] [address] Performed By: #### 5 7021-8 #### [facility] CLIA [id number] [address] [place] [address] [place] Monocytes/100 WBC (Bld) 10.6 % Normal [facility] Comment on above: Order Comment: Speci men Type: BLOOD SPECIMEN [facility]ing [facility]: [facility] Address: [address] [place] [address] Performed By: #### 5 7021-8 #### [facility] CLIA [id number] [address] [place] [address] [place] Neutrophils (Bld) [#/Vol] 3.64 10*3/uL Normal 1.45-7.50 [facility] Comment on above: Order Comment: Speci men Type: BLOOD SPECIMEN Ordering Facility: [facility] Address: [address] [place] [address] Performed By: #### 5 7021-8 #### [facility] CLIA [id number] [address] [place] [address] [place] Neutrophils/100 WBC (Bld) 62.1 % Normal [facility] Comment on above: Order Comment: Speci men Type: BLOOD SPECIMEN Ordering Facility: [facility] Address: [address] [place] [address] Performed By: #### 5 7021-8 #### [facility] CLIA [id number] [address] [place] [address] [place] Nucleated RBC (Bld) [#/Vol] 10*3/uL Normal <0.01 [facility] Comment on above: Order Comment: Speci men Type: BLOOD SPECIMEN Ordering Facility: [facility] Address: [address] [place] [address] Performed By: #### 5 7021-8 #### [facility] CLIA [id number] [address] [place] [address] [place] Nucleated RBC/100 WBC (Bld) [Ratio] 0.0 /100 WBC Normal [facility] Comment on above: Order Comment: Speci men Type: BLOOD SPECIMEN Ordering Facility: [facility] Address: [address] [place] [address] Performed By: #### 5 7021-8 #### [facility] CLIA [id number] [address] [place] [address] [place] Platelet mean volume (Bld) [Entitic vol] 10.1 fL Normal 9.0-12.7 [facility] Comment on above: Order Comment: Speci men Type: BLOOD SPECIMEN Ordering Facility: [facility] Address: [address] [place] [address] Performed By: #### 5 7021-8 #### [facility] CLIA [id number] [address] [place], [place] [id number] [place] Platelets (Bld) [#/Vol] 300 10*3/uL Normal 150-400 [facility] Comment on above: Order Comment: Speci men Type: BLOOD SPECIMEN Ordering Facility: [facility] Address: [address] [place] [address] Performed By: #### 5 7021-8 #### [address] [facility] CLIA [id number] [address] [place] [address] [place] RBC (Bld) [#/Vol] 3.04 10*6/uL Low 4.20-6.00 [facility] Comment on above: Order Comment: Speci men Type: BLOOD SPECIMEN Ordering Facility: [facility] Address: [address] [place] [address] Performed By: #### 5 7021-8 #### [facility] CLIA [id number] [address] [place] [address] [place] WBC (Bld) [#/Vol] 5.86 10*3/uL Normal 3.70-11.00 [facility] Comment on above: Order Comment: Speci men Type: BLOOD SPECIMEN Ordering Facility: [facility] Address: [address] [place] [address] Performed By: #### 5 7021-8 #### [facility] CLIA [id number] [address] [place], [place] [address] [place] CONFIRM BLOOD TYPEon 024 ABO A Normal [facility] Comment on above: Order Comment: Speci men Type: BLOOD SPECIMEN Ordering Facility: [facility] Address: [address] [place] [address] Performed By: #### C ONABO #### [facility] CLIA [id number] [address] [place] [address] [place] Rh Nom (Bld) Positive Normal [facility] Comment on above: Order Comment: Speci men Type: BLOOD SPECIMEN Ordering Facility: [facility] Address: [address] [place] [address] Performed By: #### C ONABO #### [facility] CLIA [id number] [address] [place] [address] [place] Comprehensive metabolic 2000 panelon 04-30-2024 Albumin [Mass/Vol] 3.6 g/dL Low 3.9-4.9 [facility] Comment on above: Order Comment: Speci men Type: BLOOD SPECIMEN Ordering Facility: [facility] Address: [address] [place] [address] Performed By: #### 2 4323-8 #### [facility] CLIA [id number] [address] [place] [address] [place] ALP [Catalytic activity/Vol] 59 U/L Normal 38-113 [facility] Comment on above: Order Comment: Speci men Type: BLOOD SPECIMEN Ordering Facility: [facility] Address: [address] [place] [address] Performed By: #### 2 4323-8 #### [facility] CLIA [id number] [address] [place] [address] [place] ALT [Catalytic activity/Vol] 8 U/L Low 10-54 [facility] Comment on above: Order Comment: Speci men Type: BLOOD SPECIMEN Ordering Facility: [facility] Address: [address] [place] [address] Performed By: #### 2 4323-8 #### [facility] CLIA [id number] [address] [place] [address] [place] Anion gap [Moles/Vol] 9 mmol/L Normal 8-15 [facility] Comment on above: Order Comment: Speci men Type: BLOOD SPECIMEN Ordering Facility: [facility] Address: [address] [place] [address] Performed By: #### 2 4323-8 #### [facility] CLIA [id number] [address] [place] [address] [place] AST [Catalytic activity/Vol] 16 U/L Normal 14-40 [facility] Comment on above: Order Comment: Speci men Type: BLOOD SPECIMEN Ordering Facility: [facility] Address: [address] [place] [address] Performed By: #### 2 4323-8 #### [facility] CLIA [id number] [address] [place] [address] [place] Bilirubin [Mass/Vol] 0.5 mg/dL Normal 0.2-1.3 [facility] Comment on above: Order Comment: Speci men Type: BLOOD SPECIMEN Ordering Facility: [facility] Address: [address] [place] [address] Performed By: #### 2 4323-8 #### [facility] CLIA [id number] [address] [place] [address] [place] Calcium [Mass/Vol] 8.3 mg/dL Low 8.5-10.2 [facility] Comment on above: Order Comment: Speci men Type: BLOOD SPECIMEN Ordering Facility: [facility] Address: [address] [place] [address] Performed By: #### 2 4323-8 #### [facility] CLIA [id number] [address] [place] [address] [place] Chloride [Moles/Vol] 106 mmol/L Normal 98-107 [facility] Comment on above: Order Comment: Speci men Type: BLOOD SPECIMEN Ordering Facility: [facility] Address: [address] [place] [address] Performed By: #### 2 4323-8 #### [facility] CLIA [id number] [address] [place] [address] [place] CO2 [Moles/Vol] 25 mmol/L Normal 22-30 [facility] Comment on above: Order Comment: Speci men Type: BLOOD SPECIMEN Ordering Facility: [facility] Address: [address] [place] [address] Performed By: #### 2 4323-8 #### [facility] CLIA [id number] [address] [place] [address] [place] Creatinine [Mass/Vol] 0.87 mg/dL Normal 0.73-1.22 [facility] Comment on above: Order Comment: Speci men Type: BLOOD SPECIMEN Ordering Facility: [facility] Address: [address] [place] [address] Performed By: #### 2 4323-8 #### [facility] CLIA [id number] [address] [place] [address] [place] Creatinine and Glomerular filtration rate.predicted panel (S/P/Bld) 96 mL/min/1.73m??? Normal >=60 [facility] Comment on above: Order Comment: Speci men Type: BLOOD SPECIMEN Ordering Facility: [facility] Address: [address] [place] [address] Result Comment: Phyllis mated Glomerular Filtration Rate [...] GFR. Performed By: #### 2 4323-8 #### [facility] CLIA [id number] [address] [place] [address] [place] Glucose [Mass/Vol] 104 mg/dL High 74-99 [facility] Comment on above: Order Comment: Speci men Type: BLOOD SPECIMEN Ordering Facility: [facility] Address: [address] [place] [address] Result Comment: The [place] Diabetes Association (ADA) provides guidance for cutoff [...] Standards of Medical Care in Diabetes 2016, [place] [employer]. Diabetes Care. 2016.39(Suppl 1). Performed By: #### 2 4323-8 #### [facility] CLIA [id number] [address] [place] [address] [place] Potassium [Moles/Vol] 4.5 mmol/L Normal 3.7-5.1 [facility] Comment on above: Order Comment: Speci men Type: BLOOD SPECIMEN Ordering Facility: [facility] Address: [address] [place] [address] Performed By: #### 2 4323-8 #### [facility] CLIA [id number] [address] [place] [address] [place] Protein [Mass/Vol] 5.8 g/dL Low 6.3-8.0 [facility] Comment on above: Order Comment: Michaeli men Type: BLOOD SPECIMEN Ordering Facility: [facility] Address: [address] [place] [address] Performed By: #### 2 4323-8 #### [facility] CLIA [id number] [address] [place] [address] [place] Sodium [Moles/Vol] 140 mmol/L Normal 136-144 [facility] Comment on above: Order Comment: Speci men Type: BLOOD SPECIMEN Ordering Facility: [facility] Address: [address] [place] [address] Performed By: #### 2 4323-8 #### [facility] CLIA [id number] [address] [place] [address] [place] Urea nitrogen [Mass/Vol] 13 mg/dL Normal 9-24 [facility] Comment on above: Order Comment: Speci men Type: BLOOD SPECIMEN Ordering Facility: [facility] Address: [address] [place] [address] Performed By: #### 2 4323-8 #### [facility] CLIA [id number] [address] [place] [address] [place] ECG COMPLETEon 04-30-2024 ECG COMPLETE Ventricular Rate : 6 5 BPM Atrial Rate : 65 BPM P-R Interval : 150 ms QRS Duration : 90 ms Q-T Interval : 416 ms QTC Calculation(Bazett) : 432 ms Calculated P Withee : -17 degrees Calculated R Withee : 49 degrees Calculated T Withee : 44 degrees NORMAL SINUS RHYTHM NORMAL ECG Confirmed by FIDEL WILLOUGHBY MD ([id number]) on 05/24/2024 9:51:42 AM NAME : AYO ALICIA PID : [id number] : 1960 Gender : Male Race : Unknown ORD : [id number] Procedure Date : Apr 30 2024 13:55:34 [...] [place] Acquired by : vanessa mayer Normal [facility] HISTORY PHYSICALon HISTORY PHYSICAL HNO ID: [id number] Author: DOLLY NELSON APRN.JOVANA Service: ? Author [...] or recurrence Follows with Dr. Pagan @ [place] Atherosclerosis of coronary artery Assessment: Stable S/p Stenting in 2020 On ASA, DOAC, AND Statin Negative stress test 06/17/2023 Follows with Cardiology at [facility] GERD (gastroesophageal reflux disease) Assessment: Controlled with [...] have a large neck STOP-Bang Score: 3 [id number] Score: Age: 65-74 Sex: male CHF history: No Hypertension history: Yes Stroke/TIA/thromboembo lism history: No Vascular disease history: Yes Diabetes history: No [id number] Score: 3 ARISCAT Score: Age: 51-80 Preoperative [...] plasma, cryoprecipit (more content not included)... Normal [facility] TYPE AND SCREEN,30 DAYon ABO A Normal [facility] Comment on above: Order Comment: Asuncion cho Type: BLOOD SPECIMEN Ordering Facility: [facility] Address: [address] [place] [address] Performed By: #### T SCR30 #### [facility] CLIA [id number] [address] [place] [address] [place] HISTORICAL AB SCR STATUS Negative Normal [facility] Comment on above: Order Comment: Asuncion cho Type: BLOOD SPECIMEN Ordering Facility: [facility] Address: [address] [place] [address] Performed By: #### T SCR30 #### [facility] CLIA [id number] [address] [place] [address] [place] Rh Nom (Bld) Positive Normal [facility] Comment on above: Order Comment: Asuncion cho Type: BLOOD SPECIMEN Ordering Facility: [facility] Address: [address] [place] [address] Performed By: #### T SCR30 #### [facility] CLIA [id number] [address] [place] [address] [place] CNOVon 04-28-2024 CNOV Office Visit ([facility] ) AYO ALICIA ([id number]) 1960 Date Time Provider Department 04/28/24 12:20 PM CUBA HAYWOOD [facility] During your visit today, we recorded the [...] for internal providers or letter via the [employer] for external providers. Chief Complaint: retained capsule History of Present Illness: Ayo Alicia is a 64 year old male presents today for evaluation of retained endoscopic camera. [facility]'s [facility] 04/16/24 Scan on 04/22/2024 8:26 AM by Lisa Arreaga: [facility] CT ABD AND PEL [id number] - Tiny hiatal hernia - Cholelithiasis - [...] BLOOD COUNT AND DIFFERENTIAL [SQCBCDIF] Order #: [id number] FUTURE COMPREHENSIVE METABOLIC PANEL [SQCMP] Order #: [id number] FUTURE metroNIDAZOLE (FLAGYL) 500 mg tabletTake 1 [...] by mouth. (more content not included)... Normal [facility] CT enterographyon 04-16-2024 CT enterography [facility] Main [place] [address] [place] [address] CT Scan Report Signed Patient: Ayo Alicia MR#: [id number] : 1960 Acct:[id number] Age/Sex: 64 / M ADM Date: 04/16/24 Loc: CT Room: Type: [facility] Attending Dr: Nelly Arias DO Copies to: [...] Keiko Wan M.D.04/16/2024 2:55 PM Dictation Location: [place] [address] Transcribed By: [facility] 04/16/24 1297 Dictated By: Keiko Wan MD 04/16/24 1449 Signed By: 04/16/24 145 Normal [facility] Creatinineon 04-16-2024 GFR/1.73 sq M.predicted MDRD (S/P/Bld) [Vol rate/Area] mL/min/{1.73_m2} Normal [facility] Comment on above: Result Comment: PERF ORMED BY: [place] [address] PATHOLOGIST [employer] ANIYA BRUCE M.D. Performed By: #### B UN, CREAT #### [facility] [address] [place] [address] Creatinine [Mass/volume] in Serum or PlasmaOrdered By: Nelly Arias on 04-16-2024 Creatinine [Mass/Vol] 0.98 mg/dL Normal 0.70-1.30 [facility] Comment on above: Performed By: #### B UN, CREAT #### [facility] [address] [place] [address] No Panel InformationOrdered By: Nelly Arias on 04-16-2024 Estimated GFR (CKD-EPI) > 60.0 mL/Min [facility] Creatinine Clearance (Chem N/A [facility] Urea nitrogen [Mass/volume] in Serum or PlasmaOrdered By: Nelly Arias on 04-16-2024 Urea nitrogen [Mass/Vol] 24 mg/dL Normal 7-[address] [facility] Comment on above: Performed By: #### B UN, CREAT #### [facility] [address] [place] [address] HEMOGLOBINon 08-27-2023 Hemoglobin (Bld) [Mass/Vol] 12.3 g/dL Low 13.0-17.0 [facility] Comment on above: Performed By: #### 7 18-7 #### [facility] ([id number]) [address], [address] [place] [address] Hemoglobinon 08-27-2023 Hemoglobin (Bld) [Mass/Vol] 12.3 g/dL Low 13.0 - 17.0 g/dL [facility] Hemoglobin (Bld) [Mass/Vol]o n 08-27-2023 Interpretation and review of laboratory results Abnormal [facility] Albumin [Mass/volume] in Ser um or Plasma by Bromocresol green (BCG) dye binding methoOrdered By: Enoch Carnes on 04-23-2023 Albumin BCG dye [Mass/Vol] 3.8 g/dL 3.5-5.[address] [facility] Automated basophil %Ordered By: Enoch Carnes on 04-23-2023 Basophils/100 WBC (Bld) 0.8 % Normal . [facility] Comment on above: Order Comment: Reaso n for Exam Crohns disease Performed By: #### C BC, CMP #### [address] Automated basophil countOrde red By: Enoch Carnes on 04-23-2023 Basophils (Bld) [#/Vol] 0.1 10*3/uL Normal 0.0-0.[address] [facility] Comment on above: Order Comment: Reaso n for Exam Crohns disease Result Comment: PERF ORMED BY: [place] [address] PATHOLOGIST [employer] ANIYA BRUCE M.D. Performed By: #### C BC, CMP #### [address] Automated blood monocyte cou ntOrdered By: Enoch Carnes on 04-23-2023 Monocytes (Bld) [#/Vol] 0.8 10*3/uL Normal 0.0-0.[address] [facility] Comment on above: Order Comment: Reaso n for Exam Crohns disease Performed By: #### C BC, CMP #### [address] Automated eosinophil %Ordere d By: Enoch Carnes on 04-23-2023 Eosinophils/100 WBC (Bld) 1.4 % Normal . [facility] Comment on above: Order Comment: Reaso n for Exam Crohns disease Performed By: #### C BC, CMP #### [address] Automated eosinophil countOr dered By: Enoch Carnes on 04-23-2023 Eosinophils (Bld) [#/Vol] 0.1 10*3/uL Normal 0.0-0.[address] [facility] Comment on above: Order Comment: Reaso n for Exam Crohns disease Performed By: #### C BC, CMP #### [facility] [address] Automated monocyte %Ordered By: Enoch Carnes on 04-23-2023 Monocytes/100 WBC (Bld) 8.0 % Normal . [facility] Comment on above: Order Comment: Reaso n for Exam Crohns disease Performed By: #### C BC, CMP #### [facility] [address] Automated neutrophil %Ordere d By: Enoch Carnes on 04-23-2023 Neutrophils/100 WBC (Bld) 82.6 % Normal . [facility] Comment on above: Order Comment: Reaso n for Exam Crohns disease Performed By: #### C BC, CMP #### [facility] [address] Bilirubin.total [Mass/volume ] in Serum or PlasmaOrdered By: Enoch Carnes on 04-23-2023 Bilirubin [Mass/Vol] 0.9 mg/dL Normal 0.3-1.0 [facility] Comment on above: Order Comment: Reaso n for Exam Crohns disease Performed By: #### C BC, CMP #### [address] Calcium [Mass/volume] in Ser um or PlasmaOrdered By: Enoch Carnes on 04-23-2023 Calcium [Mass/Vol] 8.7 mg/dL Normal 8.6-10.3 [facility] Comment on above: Order Comment: Reaso n for Exam Crohns disease Performed By: #### C BC, CMP #### [facility] [address] [place] [id number] [place] Carbon dioxide, total [Moles /volume] in Serum or PlasmaOrdered By: Enoch Carnes on 04-23-2023 CO2 [Moles/Vol] 29.7 mmol/L Normal 21.0-31.0 [facility] Comment on above: Order Comment: Reaso n for Exam Crohns disease Performed By: #### C BC, CMP #### [place] [address] [place] Complete Blood Count Auto Di ffon 04-23-2023 Mean Corpuscular HGB Conc 30.3 g/dL Low 32.5-35.6 [facility] Comment on above: Order Comment: Reaso n for Exam Crohns disease Performed By: #### C BC, CMP #### [facility] [address] [place] [id number] [facility] NRBC% 0.1 /100{WBC} Normal 0-0.5 [facility] Comment on above: Order Comment: Reaso n for Exam Crohns disease Performed By: #### C BC, CMP #### [facility] [address] [place] [id number] [facility] Comprehensive Metabolic Pane dianna 04-23-2023 Albumin [Mass/Vol] 3.011441 g/dL Normal 3.5-5.7 g/dL [facility] Other Bilirubin [Mass/Vol] 0.2718513 mg/dL Normal 0.3- 1.0 mg/dL [employer] Other Calcium [Mass/Vol] 8.9794570 mg/dL Normal 8.6-10 .3 mg/dL [employer] Other CO2 [Moles/Vol] 29.99341769 mmol/L Normal 21.0-3 1.0 mmol/L [employer] Other Creatinine [Mass/Vol] 1.42643489 mg/dL Normal 0. 70-1.30 mg/dL [employer] Other Potassium [Moles/Vol] 3.64697703 mmol/L Low 3 .5-5.1 mmol/L [employer] Other Protein [Mass/Vol] 6.770004 g/dL Low 6.4-8.9 g/dL [employer] Other Comprehensive Metabolic Panel 2.2 g/dL [employer] Other Albumin [Mass/Vol] 3.8 g/dL Normal 3.5-5.7 [facility] Comment on above: Order Comment: Reaso n for Exam Crohns disease Performed By: #### C BC, CMP #### [facility] [address] [place] [address] [place] GFR/1.73 sq M.predicted MDRD (S/P/Bld) [Vol rate/Area] mL/min/{1.73_m2} Normal [employer] Other Comment on above: Order Comment: Reaso n for Exam Crohns disease Performed By: #### C BC, CMP #### [facility] [address] Comprehensive Metabolic Pane lOrdered By: Enoch Carnes on 04-23-2023 Albumin/Globulin [Mass ratio] 1.7 {ratio} Normal [facility] Comment on above: Order Comment: Reaso n for Exam Crohns disease Performed By: #### C BC, CMP #### [address] ALP [Catalytic activity/Vol] 45 U/L Normal 34-[address] [facility] Comment on above: Order Comment: Reaso n for Exam Crohns disease Result Comment: PERF ORMED BY: [place] [address] PATHOLOGIST [employer] ANIYA BRUCE M.D. Performed By: #### C BC, CMP #### [address] ALT [Catalytic activity/Vol] 12 U/L Normal 7-[address] [facility] Comment on above: Order Comment: Reaso n for Exam Crohns disease Performed By: #### C BC, CMP #### [facility] [address] AST [Catalytic activity/Vol] 11 U/L Low 13-[address] [facility] Comment on above: Order Comment: Reaso n for Exam Crohns disease Performed By: #### C BC, CMP #### [address] Chloride [Moles/Vol] 106 mmol/L Normal 98-107 [facility] Comment on above: Order Comment: Reaso n for Exam Crohns disease Performed By: #### C BC, CMP #### [facility] [address] Glucose [Mass/Vol] 140 mg/dL High 70-100 [facility] Comment on above: ADA recommended refe rence rangeRandom Glucose Reference Range is dependent on time and content of last meal. Glucose of more than 200 mg/dL in a nonstressed, ambulatory subject supports the diagnosis of Diabetes Mellitus. Order Comment: Reaso n for Exam Crohns disease Result Comment: [place] om Glucose Reference Range is dependent on time and content of last meal. Glucose of more than 200 mg/dL in a nonstressed, ambulatory subject supports the diagnosis of Diabetes Mellitus. ADA recommended reference range Performed By: #### C BC, CMP #### [address] Sodium [Moles/Vol] 141 mmol/L Normal 136-145 [facility] Comment on above: Order Comment: Reaso n for Exam Crohns disease Performed By: #### C BC, CMP #### [address] Urea nitrogen [Mass/Vol] 15 mg/dL Normal 7-[address] [facility] Comment on above: Order Comment: Reaso n for Exam Crohns disease Performed By: #### C BC, CMP #### [address] Creatinine [Mass/volume] in Serum or PlasmaOrdered By: Enoch Carnes on 04-23-2023 Creatinine [Mass/Vol] 1.08 mg/dL Normal 0.70-1.30 [facility] Comment on above: Order Comment: Reaso n for Exam Crohns disease Performed By: #### C BC, CMP #### [place] [address] [place] Erythrocyte distribution wid th [Ratio] by Automated countOrdered By: Enoch Carnes on 04-23-2023 Erythrocyte distribution width (RBC) [Ratio] 19.1 % High 12.0-14.[address] [facility] Comment on above: Order Comment: Reaso n for Exam Crohns disease Performed By: #### C BC, CMP #### [address] Erythrocytes [#/volume] in B lood by Automated countOrdered By: Enoch Carnes on 04-23-2023 RBC (Bld) [#/Vol] 3.49 10*6/uL Low 3.90-5.60 [facility] Comment on above: Order Comment: Reaso n for Exam Crohns disease Performed By: #### C BC, CMP #### [address] Hematocrit [Volume Fraction] of Blood by Automated countOrdered By: Enoch Carnes on 04-23-2023 Hematocrit (Bld) [Volume fraction] 25.3 % Low 38.8-50.[address] [facility] Comment on above: Order Comment: Reaso n for Exam Crohns disease Performed By: #### C BC, CMP #### [address] Hemoglobin [Mass/volume] in BloodOrdered By: Enoch Carnes on 04-23-2023 Hemoglobin (Bld) [Mass/Vol] 7.7 g/dL Low 13.0-17.[address] [facility] Comment on above: Order Comment: Reaso n for Exam Crohns disease Performed By: #### C BC, CMP #### [address] Leukocytes [#/volume] correc miguel for nucleated erythrocytes in Blood by Automated counOrdered By: Enoch Carnes on 04-23-2023 WBC corrected for nucl RBC Auto (Bld) [#/Vol] 9.8 10*3/uL 4.1-10.[address] [facility] Leukocytes [#/volume] in Blo od by Automated countOrdered By: Enoch Carnes on 04-23-2023 WBC (Bld) [#/Vol] 9.8 10*3/uL Normal 4.1-10.5 [facility] Comment on above: Order Comment: Reaso n for Exam Crohns disease Performed By: #### C BC, CMP #### [place] [address] [place] Lymphocytes [#/volume] in Bl ood by Automated countOrdered By: Enoch Carnes on 04-23-2023 Lymphocytes (Bld) [#/Vol] 0.7 10*3/uL Low 1.00-4.[address] [facility] Comment on above: Order Comment: Reaso n for Exam Crohns disease Performed By: #### C BC, CMP #### [address] Lymphocytes/100 leukocytes i n Blood by Automated countOrdered By: Enoch Carnes on 04-23-2023 Lymphocytes/100 WBC (Bld) 7.2 % Normal . [facility] Comment on above: Order Comment: Reaso n for Exam Crohns disease Performed By: #### C BC, CMP #### [address] MCH [Entitic mass] by Automa miguel countOrdered By: Enoch Carnes on 04-23-2023 MCH (RBC) [Entitic mass] 22.0 pg Low 27.5-35.[address] [facility] Comment on above: Order Comment: Reaso n for Exam Crohns disease Performed By: #### C BC, CMP #### [address] MCHC Auto (RBC) [Mass/Vol]Or dered By: Enoch Carnes on 04-23-2023 MCHC (RBC) [Mass/Vol] 30.3 g/dL 32.5-35.6 [facility] MCV [Entitic volume] by Auto mated countOrdered By: Enoch Carnes on 04-23-2023 MCV (RBC) [Entitic vol] 72.5 fL Low 83.5-[address] [facility] Comment on above: Order Comment: Reaso n for Exam Crohns disease Performed By: #### C BC, CMP #### [address] Neutrophils [#/volume] in Bl ood by Automated countOrdered By: Enoch Carnes on 04-23-2023 Neutrophils (Bld) [#/Vol] 8.1 10*3/uL High 1.8-7.[address] [facility] Comment on above: Order Comment: Reaso n for Exam Crohns disease Performed By: #### C BC, CMP #### [facility] [address] [place] [address] No Panel InformationOrdered By: Enoch Carnes on 04-23-2023 Estimated GFR (CKD-EPI) > 60.0 mL/Min [facility] Creatinine Clearance (Chem N/A [facility] Nucleated erythrocytes [Pres ence] in Blood by Automated countOrdered By: Enoch Carnes on 04-23-2023 Nucleated RBC Auto Ql (Bld) 0.1 /100{WBC} 0-0.[address] [facility] Platelet mean volume [Entiti c volume] in Blood by Automated countOrdered By: Enoch Carnes on 04-23-2023 Platelet mean volume (Bld) [Entitic vol] 7.5 fL Normal 6.6-10.[address] [facility] Comment on above: Order Comment: Reaso n for Exam Crohns disease Performed By: #### C BC, CMP #### [address] Platelets [#/volume] in Bloo d by Automated countOrdered By: Enoch Carnes on 04-23-2023 Platelets (Bld) [#/Vol] 359 10*3/uL Normal 150-[address] [facility] Comment on above: Order Comment: Reaso n for Exam Crohns disease Performed By: #### C BC, CMP #### [facility] [address] [place] [address] [place] Potassium [Moles/volume] in Serum or PlasmaOrdered By: Enoch Carnes on 04-23-2023 Potassium [Moles/Vol] 3.3 mmol/L Low 3.5-5.1 [facility] Comment on above: Order Comment: Reaso n for Exam Crohns disease Performed By: #### C BC, CMP #### [place] [address] [place] Protein [Mass/volume] in Ser um or PlasmaOrdered By: Enoch Carnes on 04-23-2023 Protein [Mass/Vol] 6.0 g/dL Low 6.4-8.9 [facility] Comment on above: Order Comment: Reaso n for Exam Crohns disease Performed By: #### C BC, CMP #### [address] Serum globulin measurement b y calculation (mass/volume)Ordered By: Enoch Carnes on 04-23-2023 Globulin (S) [Mass/Vol] 2.2 g/dL Normal [facility] Comment on above: Order Comment: Reaso n for Exam Crohns disease Performed By: #### C BC, CMP #### [address] Serum or plasma anion gap de terminationOrdered By: Enoch Carnes on 04-23-2023 Anion gap [Moles/Vol] 8.6 mmol/L Normal 6.0-15.0 [facility] Comment on above: Order Comment: Reaso n for Exam Crohns disease Performed By: #### C BC, CMP #### [facility] [address] [place] [address] CBC AUTO DIFFon 11-01-2022 BASO # 0.1 103/ul Normal 0.0-0.1 [facility] Comment on above: Performed By: #### C MREP #### [facility] [address] [place] [address] Dr. Sayda Kapoor Basophils/100 WBC (Bld) 0.7 % Normal 0.2-2.0 [facility] Comment on above: Performed By: #### C MREP #### [facility] [address] [address] [address] Sayda Kapoor EO # 0.1 103/ul Normal 0.0-0.7 [facility] Comment on above: Performed By: #### C MREP #### [facility] [address] [address] [address] Sayda Kapoor Eosinophils/100 WBC (Bld) 1.4 % Normal 0.9-7.0 [facility] Comment on above: Performed By: #### C MREP #### [facility] [address] [address] [address] Sayda Kapoor Erythrocyte distribution width (RBC) [Ratio] 15.9 % Critically high 11.0-15.0 [facility] Comment on above: Performed By: #### C MREP #### [facility] [address] [place] [address] Dr. Sayda Kapoor Hematocrit (Bld) [Volume fraction] 31.5 % Critically low 42.0-54.0 [facility] Comment on above: Performed By: #### C MREP #### [facility] [address] [place] [address] Dr. Sayda Kapoor Hemoglobin (Bld) [Mass/Vol] 9.1 g/dL Critically low 14.0-18.0 [facility] Comment on above: Performed By: #### C MREP #### [facility] [address] [place] [address] Dr. Sayda Kapoor IG # 0.20 10e3/ul Critically high 0.00-0.03 [facility] Comment on above: Performed By: #### C MREP #### [facility] [address] [place] [address] Dr. Sayda Kapoor IG % 2.3 % Critically high 0.0-0.5 [facility] Comment on above: Performed By: #### C MREP #### [facility] [address] [place] [address] Dr. Sayda Kapoor LYMPH # 0.8 103/ul Critically low 1.2-3.8 [facility] Comment on above: Performed By: #### C MREP #### [facility] [address] [place] [address] Dr. Sayda Kapoor Lymphocytes/100 WBC (Bld) 9.4 % Critically low 20.5-60.0 [facility] Comment on above: Performed By: #### C MREP #### [facility] [address] [place] [address] Dr. Sayda Kapoor MANUAL DIFF REQ NO Normal [facility] Comment on above: Performed By: #### C MREP #### [facility] [address] [address] [address] Sayda Kapoor MCH (RBC) [Entitic mass] 22.9 pg Critically low 25.9-34.0 [facility] Comment on above: Performed By: #### C MREP #### [facility] [address] [place] [address] Dr. Sayda Kapoor MCHC (RBC) [Mass/Vol] 28.9 g/dL Critically low 29.9-35.[address] [facility] Comment on above: Performed By: #### C MREP #### [facility] [address] [place] [address] Dr. Sayda Kapoor MCV (RBC) [Entitic vol] 79.1 fL Critically low 80.0-94.0 [facility] Comment on above: Performed By: #### C MREP #### [facility] [address] [place] [address] Dr. Sayda Kapoor MONO # 0.6 103/ul Normal 0.3-0.8 [facility] Comment on above: Performed By: #### C MREP #### [facility] [address] [place] [address] Dr. Sayda Kapoor Monocytes/100 WBC (Bld) 7.2 % Normal 1.7-12.0 [facility] Comment on above: Performed By: #### C MREP #### [facility] [address] [place] [address] Dr. Sayda Kapoor NEUT # 6.9 103/ul Critically high 1.4-6.5 [facility] Comment on above: Performed By: #### C MREP #### [facility] [address] [place] [address] Dr. Sayda Kapoor Neutrophils/100 WBC (Bld) 79.0 % Critically high 43.0-75.[address] [facility] Comment on above: Performed By: #### C MREP #### [facility] [address] [place] [address] Dr. Sayda Kapoor Platelet mean volume (Bld) [Entitic vol] 9.1 fL Critically low 9.5-13.[address] [facility] Comment on above: Performed By: #### C MREP #### [facility] [address] [address] [address] Sayda Kapoor PLT 416 103/ul Normal 150-450 [facility] Comment on above: Performed By: #### C MREP #### [facility] [address] [address] [address] Sayda Kapoor RBC 3.98 106/ul Critically low 4.70-6.10 [facility] Comment on above: Performed By: #### C MREP #### [facility] [address] [address] [address] Sayda Kapoor WBC 8.8 103/ul Normal 4.0-11.0 [facility] Comment on above: Performed By: #### C MREP #### [facility] [address] [place] [address] Dr. Sayda Kapoor PROF CHEM 8 (BAS METB)on Anion gap [Moles/Vol] 9.0 mmol/L Normal [facility] Comment on above: Performed By: #### B ENVIRONMENTAL WEB CRAWLER, CMP, LIPA, TONI #### [facility] [address] [place] [address] Dr. Sayda Kapoor Calcium [Mass/Vol] 8.2 mg/dL Critically low 8.5-10.1 [facility] Comment on above: Performed By: #### B ENVIRONMENTAL WEB CRAWLER, CMP, LIPA, TONI #### [facility] [address] [place] [address] Dr. Sayda Kapoor Chloride [Moles/Vol] 104 mmol/L Normal 98-107 [facility] Comment on above: Performed By: #### B ENVIRONMENTAL WEB CRAWLER, CMP, LIPA, TONI #### [facility] [address] [address] [address] Sayda Kapoor CO2 [Moles/Vol] 32.5 mmol/L Critically high 21.0-32.0 [facility] Comment on above: Performed By: #### B ENVIRONMENTAL WEB CRAWLER, CMP, LIPA, TONI #### [facility] [address] [place] [address] Dr. Sayda Kapoor Creatinine [Mass/Vol] 0.93 mg/dL Normal 0.70-1.30 [facility] Comment on above: Performed By: #### B ENVIRONMENTAL WEB CRAWLER, CMP, LIPA, TONI #### [facility] [address] [place] [address] Dr. Sayda Kapoor EGFR-AF BULGARIAN >60 Normal >=60 [facility] Comment on above: Performed By: #### B ENVIRONMENTAL WEB CRAWLER, CMP, LIPA, TONI #### [facility] [address] [place] [address] Dr. Sayda Kapoor EGFR-NON AF BULGARIAN >60 Normal >=60 [facility] Comment on above: Performed By: #### B ENVIRONMENTAL WEB CRAWLER, CMP, LIPA, TONI #### [facility] [address] [place] [address] Dr. Sayda Kapoor Glucose [Mass/Vol] 145 mg/dL Critically high 74-106 [facility] Comment on above: Performed By: #### B ENVIRONMENTAL WEB CRAWLER, CMP, LIPA, TONI #### [facility] [address] [place] [address] Dr. Sayda Kapoor Potassium [Moles/Vol] 3.5 mmol/L Normal 3.5-5.1 [facility] Comment on above: Performed By: #### B ENVIRONMENTAL WEB CRAWLER, CMP, LIPA, TONI #### [facility] [address] [place] [address] Dr. Sayda Kapoor Sodium [Moles/Vol] 142 mmol/L Normal 136-145 [facility] Comment on above: Performed By: #### B ENVIRONMENTAL WEB CRAWLER, CMP, LIPA, TONI #### [facility] [address] [place] [address] Dr. Sayda Kapoor Urea nitrogen [Mass/Vol] 20.0 mg/dL Critically high 7.0-18.0 [facility] Comment on above: Performed By: #### B ENVIRONMENTAL WEB CRAWLER, CMP, LIPA, TONI #### [facility] [address] [place] [address] Dr. Sayda Kapoor Urea nitrogen/Creatinine [Mass ratio] 21.5 mg/mg Normal [facility] Comment on above: Performed By: #### B ENVIRONMENTAL WEB CRAWLER, CMP, LIPA, TONI #### [facility] [address] [place] [address] Dr. Sayda Kapoor BNPon 10-23-2022 Natriuretic peptide B (Bld) [Mass/Vol] 2297.0 pg/mL Critically high <=900.0 [facility] Comment on above: Performed By: #### C MREP #### [facility] [address] [place] [address] Dr. Sayda Kapoor CBC AUTO DIFFon 10-23-2022 BASO # 0.1 103/ul Normal 0.0-0.1 [facility] Comment on above: Performed By: #### D IG #### [facility] [address] [place] [address] Dr. Sayda Kapoor Basophils/100 WBC (Bld) 0.7 % Normal 0.2-2.0 [facility] Comment on above: Performed By: #### D IG #### [facility] [address] [place] [address] Dr. Sayda Kapoor EO # 0.1 103/ul Normal 0.0-0.[address] [facility] Comment on above: Performed By: #### D IG #### [facility] [address] [place] [address] Dr. Sayda Kapoor Eosinophils/100 WBC (Bld) 1.9 % Normal 0.9-7.0 [facility] Comment on above: Performed By: #### D IG #### [facility] [address] [place] [address] Dr. Sayda Kapoor Erythrocyte distribution width (RBC) [Ratio] 15.6 % Critically high 11.0-15.[address] [facility] Comment on above: Performed By: #### D IG #### [facility] [address] [place] [address] Dr. Sayda Kapoor Hematocrit (Bld) [Volume fraction] 29.1 % Critically low 42.0-54.0 [facility] Comment on above: Performed By: #### D IG #### [facility] [address] [place] [address] Dr. Sayda Kapoor Hemoglobin (Bld) [Mass/Vol] 8.4 g/dL Critically low 14.0-18.0 [facility] Comment on above: Performed By: #### D IG #### [facility] [address] [place] [address] Dr. Sayda Kapoor IG # 0.06 10e3/ul Critically high 0.00-0.03 [facility] Comment on above: Performed By: #### D IG #### [facility] [address] [place] [address] Dr. Sayda Kapoor IG % 0.8 % Critically high 0.0-0.5 [facility] Comment on above: Performed By: #### D IG #### [facility] [address] [place] [address] Dr. Sayda Kapoor LYMPH # 1.1 103/ul Critically low 1.2-3.8 [facility] Comment on above: Performed By: #### D IG #### [facility] [address] [place] [address] Dr. Sayda Kapoor Lymphocytes/100 WBC (Bld) 14.8 % Critically low 20.5-60.0 [facility] Comment on above: Performed By: #### D IG #### [facility] [address] [place] [address] Dr. Sayda Kapoor MANUAL DIFF REQ NO Normal [facility] Comment on above: Performed By: #### D IG #### [facility] [address] [address] [address] Sayda Kapoor MCH (RBC) [Entitic mass] 23.3 pg Critically low 25.9-34.0 [facility] Comment on above: Performed By: #### D IG #### [facility] [address] [address] [address] Sayda Kapoor MCHC (RBC) [Mass/Vol] 28.9 g/dL Critically low 29.9-35.2 [facility] Comment on above: Performed By: #### D IG #### [facility] [address] [place] [address] Dr. Sayda Kapoor MCV (RBC) [Entitic vol] 80.6 fL Normal 80.0-94.0 [facility] Comment on above: Performed By: #### D IG #### [facility] [address] [address] [address] Sayda Kapoor MONO # 0.7 103/ul Normal 0.3-0.8 [facility] Comment on above: Performed By: #### D IG #### [facility] [address] [address] [address] Sayda Kapoor Monocytes/100 WBC (Bld) 8.7 % Normal 1.7-12.0 [facility] Comment on above: Performed By: #### D IG #### [facility] [address] [place] [address] Dr. Sayda Kapoor NEUT # 5.5 103/ul Normal 1.4-6.5 [facility] Comment on above: Performed By: #### D IG #### [facility] [address] [place] [address] Dr. Sayda Kapoor Neutrophils/100 WBC (Bld) 73.1 % Normal 43.0-75.0 [facility] Comment on above: Performed By: #### D IG #### [facility] [address] [place] [address] Dr. Sayda Kapoor Platelet mean volume (Bld) [Entitic vol] 9.5 fL Normal 9.5-13.5 [facility] Comment on above: Performed By: #### D IG #### [facility] [address] [place] [address] Dr. Sayda Kapoor PLT 281 103/ul Normal 150-[address] [facility] Comment on above: Performed By: #### D IG #### [facility] [address] [place] [address] Dr. Sayda Kapoor RBC 3.61 106/ul Critically low 4.70-6.10 [facility] Comment on above: Performed By: #### D IG #### [facility] [address] [address] [address] Sayda Kapoor WBC 7.6 103/ul Normal 4.0-11.[address] [facility] Comment on above: Performed By: #### D IG #### [facility] [address] [place] [address] Dr. Sayda Kapoor DIGOXINon 10-23-2022 DIG 0.9 ng/mL Normal 0.9-2.0 [facility] Comment on above: Performed By: #### D IG #### [facility] [address] [place] [address] Dr. Sayda Kapoor PROF 14(COMP METB)on 023 Albumin [Mass/Vol] 2.4 g/dL Critically low 3.4-5.[address] [facility] Comment on above: Performed By: #### C MREP #### [facility] [address] [place] [address] Dr. Sayda Kapoor Albumin/Globulin [Mass ratio] 0.9 {ratio} Normal [facility] Comment on above: Performed By: #### C MREP #### [facility] [address] [place] [address] Dr. Sayda Kapoor ALP [Catalytic activity/Vol] 62 U/L Normal 46-116 [facility] Comment on above: Performed By: #### C MREP #### [facility] [address] [place] [address] Dr. Sayda Kapoor ALT [Catalytic activity/Vol] 33 U/L Normal 16-63 [facility] Comment on above: Performed By: #### C MREP #### [facility] [address] [place] [address] Dr. Sayda Kapoor Anion gap [Moles/Vol] 8.2 mmol/L Normal [facility] Comment on above: Performed By: #### C MREP #### [facility] [address] [place] [address] Dr. Sayda Kapoor AST [Catalytic activity/Vol] 15 U/L Normal 15-37 [facility] Comment on above: Performed By: #### C MREP #### [facility] [address] [place] [address] Dr. Sayda Kapoor Bilirubin [Mass/Vol] 1.3 mg/dL Critically high 0.2-1.0 [facility] Comment on above: Performed By: #### C MREP #### [facility] [address] [address] [address] Sayda Kapoor Calcium [Mass/Vol] 7.6 mg/dL Critically low 8.5-10.1 Th [facility] Comment on above: Performed By: #### C MREP #### [facility] [address] [address] [address] Sayda Kapoor Chloride [Moles/Vol] 105 mmol/L Normal 98-107 [facility] Comment on above: Performed By: #### C MREP #### [facility] [address] [address] [address] Sayda Kapoor CO2 [Moles/Vol] 30.2 mmol/L Normal 21.0-32.0 [facility] Comment on above: Performed By: #### C MREP #### [facility] [address] [place] [address] Dr. Sayda Kapoor Creatinine [Mass/Vol] 1.07 mg/dL Normal 0.70-1.30 [facility] Comment on above: Performed By: #### C MREP #### [facility] [address] [place] [address] Dr. Sayda Kapoor EGFR-AF BULGARIAN >60 Normal >=60 [facility] Comment on above: Performed By: #### C MREP #### [facility] [address] [place] [address] Dr. Sayda Kapoor EGFR-NON AF BULGARIAN >60 Normal >=60 [facility] Comment on above: Performed By: #### C MREP #### [facility] [address] [address] [address] Sayda Kapoor Globulin (S) [Mass/Vol] 2.7 g/dL Normal [facility] Comment on above: Performed By: #### C MREP #### [facility] [address] [address] [address] Sayda Kapoor Glucose [Mass/Vol] 101 mg/dL Normal 74-106 [facility] Comment on above: Performed By: #### C MREP #### [facility] [address] [address] [address] Sayda Kapoor Potassium [Moles/Vol] 3.4 mmol/L Critically low 3.5-5.1 [facility] Comment on above: Performed By: #### C MREP #### [facility] [address] [place] [address] Dr. Sayda Kapoor Protein [Mass/Vol] 5.1 g/dL Critically low 6.4-8.2 Th [facility] Comment on above: Performed By: #### C MREP #### [facility] [address] [address] [address] Sayda Kapoor Sodium [Moles/Vol] 140 mmol/L Normal 136-145 [facility] Comment on above: Performed By: #### C MREP #### [facility] [address] [place] [address] Dr. Sayda Kapoor Urea nitrogen [Mass/Vol] 20.0 mg/dL Critically high 7.0-18.0 [facility] Comment on above: Performed By: #### C MREP #### [facility] [address] [place] [address] Dr. Sayda Kapoor Urea nitrogen/Creatinine [Mass ratio] 18.7 mg/mg Normal [facility] Comment on above: Performed By: #### C MREP #### [facility] [address] [place] [address] Dr. Sayda Kapoor T3, TOTAL (TRIIODOTHYRONINE) on 10-23-2022 T3, TOTAL 93 ng/dL Normal 71-180 [facility] Comment on above: Performed By: #### B ENVIRONMENTAL WEB CRAWLER, CMP, LIPA, TONI #### [facility] [address] [place] [address] Dr. Sayda Kapoor BNPon 10-22-2022 Natriuretic peptide B (Bld) [Mass/Vol] 2419.0 pg/mL Critically high <=900.0 [facility] Comment on above: Performed By: #### B ENVIRONMENTAL WEB CRAWLER, CMP, LIPA, TONI #### [facility] [address] [place] [address] Dr. Sayda Kapoor CARDIAC BETTE 3-6on 3 CK [Catalytic activity/Vol] 88 U/L Normal 39-[address] [facility] Comment on above: Performed By: #### Q NTTB #### [facility] [address] [place] [address] Dr. Sayda Kapoor CK.MB [Mass/Vol] 1.44 ng/mL Normal <=3.60 [facility] Comment on above: Performed By: #### Q NTTB #### [facility] [address] [place] [address] Dr. Sayda Kapoor HSTROP 15.1 pg/mL Normal 4.0-76.[address] [facility] Comment on above: Result Comment: CUT- OFF POINTS HAVE BEEN ESTABLISHED BASED ON THE FOURTH UNIVERSAL DEFINITIONS OF MYOCARDIAL INFARCTION. THE UPPER REFERENCE LIMIT (URL) OF TROPONIN, DEFINED THE 99TH PERCENTILE OF cTnI DISTRIBUTION IN A REFERENCE POPULATION, HAS BEEN CONFIRMED THE DECISION THRESHOLD FOR MO DIAGNOSIS. Performed By: #### Q NTTB #### [facility] [address] [place] [address] Dr. Sayda Kapoor CBC AUTO DIFFon 10-22-2022 BASO # 0.1 103/ul Normal 0.0-0.1 [facility] Comment on above: Performed By: #### C BC #### [facility] [address] [place] [address] Dr. Sayda Kapoor Basophils/100 WBC (Bld) 0.5 % Normal 0.2-2.0 [facility] Comment on above: Performed By: #### C BC #### [facility] [facility] [address] [place] [address] Dr. Sayda Kapoor EO # 0.2 103/ul Normal 0.0-0.[address] [facility] Comment on above: Performed By: #### C BC #### [facility] [address] [place] [address] Dr. Sayda Kapoor Eosinophils/100 WBC (Bld) 1.8 % Normal 0.9-7.[address] [facility] Comment on above: Performed By: #### C BC #### [facility] [address] [place] [address] Dr. Sayda Kapoor Erythrocyte distribution width (RBC) [Ratio] 15.7 % Critically high 11.0-15.0 [facility] Comment on above: Performed By: #### C BC #### [facility] [address] [place] [address] Dr. Sayda Kapoor Hematocrit (Bld) [Volume fraction] 27.0 % Critically low 42.0-54.0 [facility] Comment on above: Performed By: #### C BC #### [facility] [address] [place] [address] Dr. Sayda Kapoor Hemoglobin (Bld) [Mass/Vol] 7.9 g/dL Critically low 14.0-18.0 [facility] Comment on above: Performed By: #### C BC #### [facility] [address] [place] [address] Dr. Sayda Kapoor IG # 0.06 10e3/ul Critically high 0.00-0.03 [facility] Comment on above: Performed By: #### C BC #### [facility] [address] [place] [address] Dr. Sayda Kapoor IG % 0.6 % Critically high 0.0-0.5 [facility] Comment on above: Performed By: #### C BC #### [facility] [address] [place] [address] Dr. Sayda Kapoor LYMPH # 1.2 103/ul Normal 1.2-3.8 [facility] Comment on above: Performed By: #### C BC #### [facility] [address] [place] [address] Dr. Sayda Kapoor Lymphocytes/100 WBC (Bld) 13.0 % Critically low 20.5-60.0 [facility] Comment on above: Performed By: #### C BC #### [facility] [address] [place] [address] Dr. Sayda Kapoor MANUAL DIFF REQ NO Normal [facility] Comment on above: Performed By: #### C BC #### [facility] [address] [place] [address] Dr. Sayda Kapoor MCH (RBC) [Entitic mass] 23.1 pg Critically low 25.9-34.0 [facility] Comment on above: Performed By: #### C BC #### [facility] [address] [place] [address] Dr. Sayda Kapoor MCHC (RBC) [Mass/Vol] 29.3 g/dL Critically low 29.9-35.2 [facility] Comment on above: Performed By: #### C BC #### [facility] [address] [place] [address] Dr. Sayda Kapoor MCV (RBC) [Entitic vol] 78.9 fL Critically low 80.0-94.0 [facility] Comment on above: Performed By: #### C BC #### [facility] [address] [place] [address] Dr. Sadya Kapoor MONO # 0.8 103/ul Normal 0.3-0.8 [facility] Comment on above: Performed By: #### C BC #### [facility] [address] [place] [address] Dr. Sayda Kapoor Monocytes/100 WBC (Bld) 8.0 % Normal 1.7-12.0 [facility] Comment on above: Performed By: #### C BC #### [facility] [address] [place] [address] Dr. Sayda Kapoor NEUT # 7.2 103/ul Critically high 1.4-6.5 [facility] Comment on above: Performed By: #### C BC #### [facility] [address] [place] [address] Dr. Sayda Kapoor Neutrophils/100 WBC (Bld) 76.1 % Critically high 43.0-75.0 [facility] Comment on above: Performed By: #### C BC #### [facility] [address] [place] [address] Dr. Sayda Kapoor Platelet mean volume (Bld) [Entitic vol] 9.9 fL Normal 9.5-13.5 [facility] Comment on above: Performed By: #### C BC #### [facility] [address] [place] [address] Dr. Sayda Kapoor PLT 320 103/ul Normal 150-[address] [facility] Comment on above: Performed By: #### C BC #### [facility] [address] [place] [address] Dr. Sayda Kapoor RBC 3.42 106/ul Critically low 4.70-6.10 [facility] Comment on above: Performed By: #### C BC #### [facility] [address] [place] [address] Dr. Sayda Kapoor WBC 9.4 103/ul Normal 4.0-11.0 [facility] Comment on above: Performed By: #### C BC #### [facility] [address] [place] [address] Dr. Sayda Kapoor BASO # 0.0 103/ul Normal 0.0-0.1 [facility] Comment on above: Performed By: #### D IG #### [facility] [address] [place] [address] Dr. Sayda Kapoor Basophils/100 WBC (Bld) 0.4 % Normal 0.2-2.0 [facility] Comment on above: Performed By: #### D IG #### [facility] [address] [place] [address] Dr. Sayda Kapoor EO # 0.1 103/ul Normal 0.0-0.7 [facility] Comment on above: Performed By: #### D IG #### [facility] [address] [place] [address] Dr. Sayda Kapoor Eosinophils/100 WBC (Bld) 1.0 % Normal 0.9-7.0 [facility] Comment on above: Performed By: #### D IG #### [facility] [address] [place] [address] Dr. Sayda Kaopor Erythrocyte distribution width (RBC) [Ratio] 15.8 % Critically high 11.0-15.0 [facility] Comment on above: Performed By: #### D IG #### [facility] [address] [place] [address] Dr. Sayda Kapoor Hematocrit (Bld) [Volume fraction] 28.0 % Critically low 42.0-54.0 [facility] Comment on above: Performed By: #### D IG #### [facility] [address] [place] [address] Dr. Sayda Kapoor Hemoglobin (Bld) [Mass/Vol] 8.0 g/dL Critically low 14.0-18.0 [facility] Comment on above: Performed By: #### D IG #### [facility] [address] [place] [address] Dr. Sayda Kapoor IG # 0.03 10e3/ul Normal 0.00-0.03 [facility] Comment on above: Performed By: #### D IG #### [facility] [address] [place] [address] Dr. Sayda Kapoor IG % 0.4 % Normal 0.0-0.5 [facility] Comment on above: Performed By: #### D IG #### [facility] [address] [place] [address] Dr. Sayda Kapoor LYMPH # 1.2 103/ul Normal 1.2-3.8 [facility] Comment on above: Performed By: #### D IG #### [facility] [address] [place] [address] Dr. Sayda Kapoor Lymphocytes/100 WBC (Bld) 14.3 % Critically low 20.5-60.0 [facility] Comment on above: Performed By: #### D IG #### [facility] [address] [place] [address] Dr. Sayda Kapoor MANUAL DIFF REQ NO Normal [facility] Comment on above: Performed By: #### D IG #### [facility] [address] [place] [address] Dr. Sayda Kapoor MCH (RBC) [Entitic mass] 23.3 pg Critically low 25.9-34.0 [facility] Comment on above: Performed By: #### D IG #### [facility] [address] [place] [address] Dr. Sayda Kapoor MCHC (RBC) [Mass/Vol] 28.6 g/dL Critically low 29.9-35.2 [facility] Comment on above: Performed By: #### D IG #### [facility] [address] [address] [address] Sayda Kapoor MCV (RBC) [Entitic vol] 81.4 fL Normal 80.0-94.0 [facility] Comment on above: Performed By: #### D IG #### [facility] [address] [address] [address] Sayda Kapoor MONO # 0.6 103/ul Normal 0.3-0.8 [facility] Comment on above: Performed By: #### D IG #### [facility] [address] [address] [address] Sayda Kapoor Monocytes/100 WBC (Bld) 7.1 % Normal 1.7-12.0 [facility] Comment on above: Performed By: #### D IG #### [facility] [address] [address] [address] Sayda Kapoor NEUT # 6.2 103/ul Normal 1.4-6.5 [facility] Comment on above: Performed By: #### D IG #### [facility] [address] [address] [address] Sayda Kapoor Neutrophils/100 WBC (Bld) 76.8 % Critically high 43.0-75.0 [facility] Comment on above: Performed By: #### D IG #### [facility] [address] [address] [address] Sayda Kapoor Platelet mean volume (Bld) [Entitic vol] 9.5 fL Normal 9.5-13.5 [facility] Comment on above: Performed By: #### D IG #### [facility] [address] [address] [address] Sayda Kapoor PLT 252 103/ul Normal 150-[address] [facility] Comment on above: Performed By: #### D IG #### [facility] [address] [address] [address] Sayda Kapoor RBC 3.44 106/ul Critically low 4.70-6.10 [facility] Comment on above: Performed By: #### D IG #### [facility] [address] [address] [address] Sayda Kapoor WBC 8.1 103/ul Normal 4.0-11.0 [facility] Comment on above: Performed By: #### D IG #### [facility] [address] [address] [address] Sayda Kapoor CTA CHEST WO W [...] CL POTTS Date: 2022-10-22 09:[address] [facility] CULTURE URINEon 10-22-2022 CULTURE URINE Culture Observations : NO GROWTH. Normal [facility] Comment on above: Performed By: #### D IG #### [facility] [address] [address] [address] Sayda Kapoor DIGOXINon 10-22-2022 DIG 1.4 ng/mL Normal 0.9-2.0 [facility] Comment on above: Performed By: #### B ENVIRONMENTAL WEB CRAWLER, CMP, LIPA, TONI #### [facility] [address] [address] [address] Sayda Kapoor ECHOCARDIO M/2D COMPLETEon 0 10-22-2022 ECHOCARDIO M/2D COMPLETE Patient: AYO ALICIA Exam Date: 10/22/2022 : 1960 Gender:M Ordering : DR PERICO MCCABE . Admission #: [id number] Family : DR GLORIA PAGAN M.D. Order #: [id number] CLICK HERE TO VIEW EXAM ECHOCARDIOGRAM REPORT [...] Tacos Whitney M.D. on 10/22/2022 at 16:41 [facility] PROF 14(COMP METB)on 023 Albumin [Mass/Vol] 2.6 g/dL Critically low 3.4-5.0 [facility] Comment on above: Performed By: #### B ENVIRONMENTAL WEB CRAWLER, CMP, LIPA, TONI #### [facility] [address] [place] [address] Dr. Sayda Kapoor Albumin/Globulin [Mass ratio] 1.0 {ratio} Normal [facility] Comment on above: Performed By: #### B ENVIRONMENTAL WEB CRAWLER, CMP, LIPA, TONI #### [facility] [address] [place] [address] Dr. Sayda Kapoor ALP [Catalytic activity/Vol] 61 U/L Normal 46-116 [facility] Comment on above: Performed By: #### B ENVIRONMENTAL WEB CRAWLER, CMP, LIPA, TONI #### [facility] [address] [place] [address] Dr. Sayda Kapoor ALT [Catalytic activity/Vol] 37 U/L Normal 16-63 [facility] Comment on above: Performed By: #### B ENVIRONMENTAL WEB CRAWLER, CMP, LIPA, TONI #### [facility] [address] [place] [address] Dr. Sayda Kapoor Anion gap [Moles/Vol] 11.4 mmol/L Normal Th [facility] Comment on above: Performed By: #### B ENVIRONMENTAL WEB CRAWLER, CMP, LIPA, TONI #### [facility] [address] [place] [address] Dr. Sayda Kapoor AST [Catalytic activity/Vol] 20 U/L Normal 15-37 [facility] Comment on above: Performed By: #### B ENVIRONMENTAL WEB CRAWLER, CMP, LIPA, TONI #### [facility] [address] [place] [address] Dr. Sayda Kapoor Bilirubin [Mass/Vol] 1.4 mg/dL Critically high 0.2-1.0 [facility] Comment on above: Performed By: #### B ENVIRONMENTAL WEB CRAWLER, CMP, LIPA, TONI #### [facility] [address] [place] [address] Dr. Sayda Kapoor Calcium [Mass/Vol] 8.1 mg/dL Critically low 8.5-10.1 [facility] Comment on above: Performed By: #### B ENVIRONMENTAL WEB CRAWLER, CMP, LIPA, TONI #### [facility] [address] [address] [address] Sayda Kapoor Chloride [Moles/Vol] 104 mmol/L Normal 98-107 [facility] Comment on above: Performed By: #### B ENVIRONMENTAL WEB CRAWLER, CMP, LIPA, TONI #### [facility] [address] [address] [address] Sayda Kapoor CO2 [Moles/Vol] 27.6 mmol/L Normal 21.0-32.0 [facility] Comment on above: Performed By: #### B ENVIRONMENTAL WEB CRAWLER, CMP, LIPA, TONI #### [facility] [address] [place] [address] Dr. Sayda Kapoor Creatinine [Mass/Vol] 1.07 mg/dL Normal 0.70-1.30 [facility] Comment on above: Performed By: #### B ENVIRONMENTAL WEB CRAWLER, CMP, LIPA, TONI #### [facility] [address] [place] [address] Dr. Sayda Kapoor EGFR-AF BULGARIAN >60 Normal >=60 [facility] Comment on above: Performed By: #### B ENVIRONMENTAL WEB CRAWLER, CMP, LIPA, TONI #### [facility] [address] [place] [address] Dr. Syada Kapoor EGFR-NON AF BULGARIAN >60 Normal >=60 [facility] Comment on above: Performed By: #### B ENVIRONMENTAL WEB CRAWLER, CMP, LIPA, TONI #### [facility] [address] [place] [address] Dr. Sayda Kapoor Globulin (S) [Mass/Vol] 2.5 g/dL Normal [facility] Comment on above: Performed By: #### B ENVIRONMENTAL WEB CRAWLER, CMP, LIPA, TONI #### [facility] [address] [place] [address] Dr. Sayda Kapoor Glucose [Mass/Vol] 96 mg/dL Normal 74-106 [facility] Comment on above: Performed By: #### B ENVIRONMENTAL WEB CRAWLER, CMP, LIPA, TONI #### [facility] [address] [place] [address] Dr. Sayda Kapoor Potassium [Moles/Vol] 4.0 mmol/L Normal 3.5-5.1 [facility] Comment on above: Performed By: #### B ENVIRONMENTAL WEB CRAWLER, CMP, LIPA, TONI #### [facility] [address] [place] [address] Dr. Sayda Kapoor Protein [Mass/Vol] 5.1 g/dL Critically low 6.4-8.2 Th [facility] Comment on above: Performed By: #### B ENVIRONMENTAL WEB CRAWLER, CMP, LIPA, TONI #### [facility] [address] [place] [address] Dr. Sayda Kapoor Sodium [Moles/Vol] 139 mmol/L Normal 136-145 [facility] Comment on above: Performed By: #### B ENVIRONMENTAL WEB CRAWLER, CMP, LIPA, TONI #### [facility] [address] [place] [address] Dr. Sayda Kapoor Urea nitrogen [Mass/Vol] 25.0 mg/dL Critically high 7.0-18.0 [facility] Comment on above: Performed By: #### B ENVIRONMENTAL WEB CRAWLER, CMP, LIPA, TONI #### [facility] [address] [place] [address] Dr. Sayda Kapoor Urea nitrogen/Creatinine [Mass ratio] 23.4 mg/mg Normal [facility] Comment on above: Performed By: #### B ENVIRONMENTAL WEB CRAWLER, CMP, LIPA, TONI #### [facility] [address] [place] [address] Dr. Sayda Kapoor UA RANDOM W/MICROSCOPICon BACTERIA NONE SEEN Normal NONE SEEN [facility] Comment on above: Performed By: #### D IG #### [facility] [address] [place] [address] Dr. Sayda Kapoor Bilirubin Ql (U) Negative Normal NEGATIVE [facility] Comment on above: Performed By: #### D IG #### [facility] [address] [place] [address] Dr. Sayda Kapoor CAST NONE SEEN Normal NONE SEEN [facility] Comment on above: Performed By: #### D IG #### [facility] [address] [place] [address] Dr. Sayda Kapoor Clarity (U) CLEAR Normal CLEAR [facility] Comment on above: Performed By: #### D IG #### [facility] [address] [place] [address] Dr. Sayda Kapoor Color (U) YELLOW Normal YELLOW [facility] Comment on above: Performed By: #### D IG #### [facility] [address] [place] [address] Dr. Sayda Kapoor Crystals LM Nom (Urine sed) NONE SEEN Normal NONE SEEN [facility] Comment on above: Performed By: #### D IG #### [facility] [address] [place] [address] Dr. Sayda Kapoor Epithelial cells LM Ql (Urine sed) NONE SEEN Normal NONE SEEN /RARE [facility] Comment on above: Performed By: #### D IG #### [facility] [address] [place] [address] Dr. Sayda Kapoor Glucose Ql (U) Negative Normal NEGATIVE [facility] Comment on above: Performed By: #### D IG #### [facility] [address] [place] [address] Dr. Sayda Kapoor Hemoglobin Ql (U) TRACE-INTACT Abnormal NEGATIVE [facility] Comment on above: Performed By: #### D IG #### [facility] [address] [place] [address] Dr. Sayda Kapoor Ketones Ql (U) Negative Normal NEGATIVE [facility] Comment on above: Performed By: #### D IG #### [facility] [address] [place] [address] Dr. Sayda Kapoor LEUKOCYTES Negative Normal NEGATIVE [facility] Comment on above: Performed By: #### D IG #### [facility] [address] [place] [address] Dr. Sayda Kapoor MUCOUS TRACE Abnormal NONE SEEN [facility] Comment on above: Performed By: #### D IG #### [facility] [address] [place] [address] Dr. Sayda Kapoor Nitrite Ql (U) Negative Normal NEGATIVE [facility] Comment on above: Performed By: #### D IG #### [facility] [address] [place] [address] Dr. Sayda Kapoor pH (U) 6.0 [pH] Normal 5-[address] [facility] Comment on above: Performed By: #### D IG #### [facility] [address] [place] [address] Dr. Sayda Kapoor RBC 0-2 Normal 0-[address] [facility] Comment on above: Performed By: #### D IG #### [facility] [address] [place] [address] Dr. Sayda Kapoor SPEC GRAVITY 1.020 Normal 1.005-<=1.0 25 [facility] Comment on above: Performed By: #### D IG #### [facility] [address] [place] [address] Dr. Sayda Kapoor UA PROTEIN 30 mg/dl Abnormal NEGATIVE/ TRACE [facility] Comment on above: Performed By: #### D IG #### [facility] [address] [place] [address] Dr. Sayda Kapoor Urobilinogen Qn (U) 1.0 {Rosi'U}/dL Normal 0.2 - 1. [address] [facility] Comment on above: Performed By: #### D IG #### [facility] [address] [place] [address] Dr. Sayda Kapoor WBC NONE SEEN Normal NONE SEEN [facility] Comment on above: Performed By: #### D IG #### [facility] [address] [place] [address] Dr. Sayda Kapoor BNPon 10-21-2022 Natriuretic peptide B (Bld) [Mass/Vol] 4504.0 pg/mL Critically high <=900.[address] [facility] Comment on above: Performed By: #### Q NTTB #### [facility] [address] [place] [address] Dr. Sayda Kapoor CARDIAC BETTE 3-6on 3 CK [Catalytic activity/Vol] 111 U/L Normal 39-[address] [facility] Comment on above: Performed By: #### C MREP #### [facility] [address] [address] [address] Sayda Kapoor CK.MB [Mass/Vol] 1.72 ng/mL Normal <=3.60 [facility] Comment on above: Performed By: #### C MREP #### [facility] [address] [address] [address] Sayda Kapoor HSTROP 15.2 pg/mL Normal 4.0-76.[address] [facility] Comment on above: Result Comment: CUT- OFF POINTS HAVE BEEN ESTABLISHED BASED ON THE FOURTH UNIVERSAL DEFINITIONS OF MYOCARDIAL INFARCTION. THE UPPER REFERENCE LIMIT (URL) OF TROPONIN, DEFINED THE 99TH PERCENTILE OF cTnI DISTRIBUTION IN A REFERENCE POPULATION, HAS BEEN CONFIRMED THE DECISION THRESHOLD FOR MO DIAGNOSIS. Performed By: #### C MREP #### [facility] [address] [place] [address] Dr. Sayda Kapoor CARDIAC BETTE ADMITon 023 CK [Catalytic activity/Vol] 114 U/L Normal 39-308 [facility] Comment on above: Performed By: #### Q NTTB #### [facility] [address] [place] [address] Dr. Sayda Kapoor CK.MB [Mass/Vol] 1.94 ng/mL Normal <=3.60 [facility] Comment on above: Performed By: #### Q NTTB #### [facility] [address] [place] [address] Dr. Sayda Kapoor HSTROP 17.4 pg/mL Normal 4.0-76.[address] [facility] Comment on above: Result Comment: CUT- OFF POINTS HAVE BEEN ESTABLISHED BASED ON THE FOURTH UNIVERSAL DEFINITIONS OF MYOCARDIAL INFARCTION. THE UPPER REFERENCE LIMIT (URL) OF TROPONIN, DEFINED THE 99TH PERCENTILE OF cTnI DISTRIBUTION IN A REFERENCE POPULATION, HAS BEEN CONFIRMED THE DECISION THRESHOLD FOR MO DIAGNOSIS. Performed By: #### Q NTTB #### [facility] [address] [place] [address] Dr. Sayda Kapoor TAIWO 105 ng/mL Critically high 16-96 [facility] Comment on above: Performed By: #### Q NTTB #### [facility] [address] [place] [address] Dr. Sayda Kapoor CBC AUTO DIFFon 10-21-2022 BASO # 0.0 103/ul Normal 0.0-0.1 [facility] Comment on above: Performed By: #### C MREP #### [facility] [facility] [address] [place] [address] Dr. Sayda Kapoor Basophils/100 WBC (Bld) 0.3 % Normal 0.2-2.0 [facility] Comment on above: Performed By: #### C MREP #### [facility] [address] [place] [address] Dr. Sayda Kapoor EO # 0.0 103/ul Normal 0.0-0.7 [facility] Comment on above: Performed By: #### C MREP #### [facility] [address] [place] [address] Dr. Sayda Kapoor Eosinophils/100 WBC (Bld) 0.1 % Critically low 0.9-7.0 [facility] Comment on above: Performed By: #### C MREP #### [facility] [address] [place] [address] Dr. Sayda Kapoor Erythrocyte distribution width (RBC) [Ratio] 15.6 % Critically high 11.0-15.0 [facility] Comment on above: Performed By: #### C MREP #### [facility] [address] [place] [address] Dr. Sayda Kapoor Hematocrit (Bld) [Volume fraction] 29.7 % Critically low 42.0-54.0 [facility] Comment on above: Performed By: #### C MREP #### [facility] [address] [place] [address] Dr. Sayda Kapoor Hemoglobin (Bld) [Mass/Vol] 8.7 g/dL Critically low 14.0-18.0 [facility] Comment on above: Performed By: #### C MREP #### [facility] [address] [place] [address] Dr. Sayda Kapoor IG # 0.06 10e3/ul Critically high 0.00-0.03 [facility] Comment on above: Performed By: #### C MREP #### [facility] [address] [address] [address] Sayda Kapoor IG % 0.6 % Critically high 0.0-0.5 [facility] Comment on above: Performed By: #### C MREP #### [facility] [address] [address] [address] Sayda Kapoor LYMPH # 1.0 103/ul Critically low 1.2-3.8 [facility] Comment on above: Performed By: #### C MREP #### [facility] [address] [address] [address] Sayda Kapoor Lymphocytes/100 WBC (Bld) 9.0 % Critically low 20.5-60.0 [facility] Comment on above: Performed By: #### C MREP #### [facility] [address] [place] [address] Dr. Sayda Kapoor MANUAL DIFF REQ NO Normal [facility] Comment on above: Performed By: #### C MREP #### [facility] [address] [address] [address] Sayda Kapoor MCH (RBC) [Entitic mass] 23.6 pg Critically low 25.9-34.0 [facility] Comment on above: Performed By: #### C MREP #### [facility] [address] [place] [address] Dr. Sayda Kapoor MCHC (RBC) [Mass/Vol] 29.3 g/dL Critically low 29.9-35.2 [facility] Comment on above: Performed By: #### C MREP #### [facility] [address] [address] [address] Sayda Kapoor MCV (RBC) [Entitic vol] 80.5 fL Normal 80.0-94.0 [facility] Comment on above: Performed By: #### C MREP #### [facility] [address] [address] [address] Sayda Kapoor MONO # 0.7 103/ul Normal 0.3-0.8 [facility] Comment on above: Performed By: #### C MREP #### [facility] [address] [address] [address] Sayda Kapoor Monocytes/100 WBC (Bld) 6.0 % Normal 1.7-12.0 [facility] Comment on above: Performed By: #### C MREP #### [facility] [address] [place] [address] Dr. Sayda Kapoor NEUT # 9.1 103/ul Critically high 1.4-6.5 [facility] Comment on above: Performed By: #### C MREP #### [facility] [address] [place] [address] Dr. Sayda Kapoor Neutrophils/100 WBC (Bld) 84.0 % Critically high 43.0-75.0 [facility] Comment on above: Performed By: #### C MREP #### [facility] [address] [place] [address] Dr. Sayda Kapoor Platelet mean volume (Bld) [Entitic vol] 10.1 fL Normal 9.5-13.5 [facility] Comment on above: Performed By: #### C MREP #### [facility] [address] [place] [address] Dr. Sayda Kapoor PLT 374 103/ul Normal 150-[address] [facility] Comment on above: Performed By: #### C MREP #### [facility] [address] [place] [address] Dr. Sayda Kapoor RBC 3.69 106/ul Critically low 4.70-6.10 [facility] Comment on above: Performed By: #### C MREP #### [facility] [address] [place] [address] Dr. Sayda Kapoor WBC 10.8 103/ul Normal 4.0-11.[address] [facility] Comment on above: Performed By: #### C MREP #### [facility] [address] [place] [address] Dr. Sayda Kapoor Covid-19 PCR ([facility])on 10-03 SARS-CoV-2 (COVID-19) RNA KAT+probe Ql (Unsp spec) Not detected Normal NOT DETECTED [facility] Comment on above: Result Comment: [...] for this test is supported by the Apprenticeship Representative of Health and Human Service's declaration that [...] used). Performed By: #### D IG #### [facility] [address] [place] [address] Dr. Sayda Kapoor LACTATE/LACTIC ACIDon 2022 Lactate [Moles/Vol] 2.5 mmol/L Critically high 0.4-1.9 [facility] Comment on above: Performed By: #### Q NTTB #### [facility] [address] [place] [address] Dr. Sayda Kapoor Lactate [Moles/Vol] 2.3 mmol/L Critically high 0.4-1.9 [facility] Comment on above: Performed By: #### B ENVIRONMENTAL WEB CRAWLER, CMP, LIPA, TONI #### [facility] [address] [place] [address] Dr. Sayda Kapoor PROF 14(COMP METB)on 023 Albumin [Mass/Vol] 2.8 g/dL Critically low 3.4-5.[address] [facility] Comment on above: Performed By: #### Q NTTB #### [facility] [address] [place] [address] Dr. Sayda Kapoor Albumin/Globulin [Mass ratio] 0.9 {ratio} Normal [facility] Comment on above: Performed By: #### Q NTTB #### [facility] [address] [address] [address] Sayda Kapoor ALP [Catalytic activity/Vol] 66 U/L Normal 46-116 [facility] Comment on above: Performed By: #### Q NTTB #### [facility] [address] [address] [address] Sayda Kapoor ALT [Catalytic activity/Vol] 41 U/L Normal 16-63 [facility] Comment on above: Performed By: #### Q NTTB #### [facility] [address] [address] [address] Sayda Kapoor Anion gap [Moles/Vol] 11.9 mmol/L Normal [facility] Comment on above: Performed By: #### Q NTTB #### [facility] [address] [place] [address] Dr. Sayda Kapoor AST [Catalytic activity/Vol] 22 U/L Normal 15-37 [facility] Comment on above: Performed By: #### Q NTTB #### [facility] [address] [place] [address] Dr. Sayda Kapoor Bilirubin [Mass/Vol] 1.3 mg/dL Critically high 0.2-1.0 [facility] Comment on above: Performed By: #### Q NTTB #### [facility] [address] [place] [address] Dr. Sayda Kapoor Calcium [Mass/Vol] 8.1 mg/dL Critically low 8.5-10.1 [facility] Comment on above: Performed By: #### Q NTTB #### [facility] [address] [place] [address] Dr. Sayda Kapoor Chloride [Moles/Vol] 105 mmol/L Normal 98-107 [facility] Comment on above: Performed By: #### Q NTTB #### [facility] [address] [address] [address] Sayda Kapoor CO2 [Moles/Vol] 27.4 mmol/L Normal 21.0-32.0 [facility] Comment on above: Performed By: #### Q NTTB #### [facility] [address] [address] [address] Sayda Kapoor Creatinine [Mass/Vol] 1.44 mg/dL Critically high 0.70-1.30 [facility] Comment on above: Performed By: #### Q NTTB #### [facility] [address] [address] [address] Sayda Kapoor EGFR-AF BULGARIAN 60 mL/min/1.73m2 Normal >=60 [facility] Comment on above: Performed By: #### Q NTTB #### [facility] [address] [address] [address] Sayda Kapoor EGFR-NON AF BULGARIAN 50 mL/min/1.73m2 Critically low >=60 [facility] Comment on above: Performed By: #### Q NTTB #### [facility] [address] [address] [address] Sayda Kapoor Globulin (S) [Mass/Vol] 3.0 g/dL Normal [facility] Comment on above: Performed By: #### Q NTTB #### [facility] [address] [address] [address] Sayda Kapoor Glucose [Mass/Vol] 132 mg/dL Critically high 74-106 [facility] Comment on above: Performed By: #### Q NTTB #### [facility] [address] [address] [address] Sayda Kapoor Potassium [Moles/Vol] 4.3 mmol/L Normal 3.5-5.1 [facility] Comment on above: Performed By: #### Q NTTB #### [facility] [address] [address] [address] Sayda Kapoor Protein [Mass/Vol] 5.8 g/dL Critically low 6.4-8.2 [facility] Comment on above: Performed By: #### Q NTTB #### [facility] [address] [address] [address] Sayda Kapoor Sodium [Moles/Vol] 140 mmol/L Normal 136-145 [facility] Comment on above: Performed By: #### Q NTTB #### [facility] [address] [address] [address] Sayda Kapoor Urea nitrogen [Mass/Vol] 31.0 mg/dL Critically high 7.0-18.0 [facility] Comment on above: Performed By: #### Q NTTB #### [facility] [address] [address] [address] Sayda Kapoor Urea nitrogen/Creatinine [Mass ratio] 21.5 mg/mg Normal [facility] Comment on above: Performed By: #### Q NTTB #### [facility] [address] [place] [address] Dr. Sayda Kapoor T4on 10-21-2022 T4 [Mass/Vol] 5.00 ug/dL Normal 4.50-12.10 [facility] Comment on above: Performed By: #### Q NTTB #### [facility] [address] [place] [address] Dr. Sayda Kapoor TSHon 10-21-2022 TSH 0.918 uIU/mL Normal 0.358-3.740 [facility] Comment on above: Performed By: #### Q NTTB #### [facility] [address] [place] [address] Dr. Sayda Kapoor XR CHEST 1 Von 10-21-2022 XR CHEST 1 V EXAM: XR CHEST 1 V HISTORY: SHORTNESS OF BREATH COMPARISON: None. TECHNIQUE: Portable chest FINDINGS: IMPRESSION: Poor inspiratory effort. No focal consolidation or infiltrate. The heart is not enlarged. No pneumothorax or discrete pleural effusion. Electronically authenticated by: CUBA RO Date: 2022-10-21 18:[address] [facility] CREATININEon 10-19-2022 Creatinine [Mass/Vol] 1.21 mg/dL Normal 0.70-1.[address] [facility] Comment on above: Performed By: #### B ENVIRONMENTAL WEB CRAWLER, CMP, LIPA, TONI #### [facility] [address] [place] [address] Dr. Sayda Kapoor EGFR-AF BULGARIAN >60 Normal >=60 [facility] Comment on above: Performed By: #### B ENVIRONMENTAL WEB CRAWLER, CMP, LIPA, TONI #### [facility] [address] [place] [address] Dr. Sayda Kapoor EGFR-NON AF BULGARIAN >60 Normal >=[address] [facility] Comment on above: Performed By: #### B ENVIRONMENTAL WEB CRAWLER, CMP, LIPA, TONI #### [facility] [address] [place] [address] Dr. Sayda Kapoor Consultation Noteon 08-05-20 22 Consultation Note [id number]#[id number] 0CD:[id number] Normal [facility] CBC AUTO DIFFon 07-26-2022 BASO # 0.1 103/ul Normal 0.0-0.1 [facility] Comment on above: Performed By: #### B ENVIRONMENTAL WEB CRAWLER, CMP, LIPA, TONI #### [facility] [address] [place] [address] Dr. Sayda Kapoor Basophils/100 WBC (Bld) 0.8 % Normal 0.2-2.0 [facility] Comment on above: Performed By: #### B ENVIRONMENTAL WEB CRAWLER, CMP, LIPA, TONI #### [facility] [address] [place] [address] Dr. Sayda Kapoor EO # 0.2 103/ul Normal 0.0-0.7 [facility] Comment on above: Performed By: #### B ENVIRONMENTAL WEB CRAWLER, CMP, LIPA, TONI #### [facility] [address] [place] [address] Dr. Sayda Kapoor Eosinophils/100 WBC (Bld) 2.9 % Normal 0.9-7.0 [facility] Comment on above: Performed By: #### B ENVIRONMENTAL WEB CRAWLER, CMP, LIPA, TONI #### [facility] [address] [place] [address] Dr. Sayda Kapoor Erythrocyte distribution width (RBC) [Ratio] 14.3 % Normal 11.0-15.[address] [facility] Comment on above: Performed By: #### B ENVIRONMENTAL WEB CRAWLER, CMP, LIPA, TONI #### [facility] [address] [place] [address] Dr. Sayda Kapoor Hematocrit (Bld) [Volume fraction] 31.5 % Critically low 42.0-54.0 [facility] Comment on above: Performed By: #### B ENVIRONMENTAL WEB CRAWLER, CMP, LIPA, TONI #### [facility] [address] [place] [address] Dr. Sayda Kapoor Hemoglobin (Bld) [Mass/Vol] 10.1 g/dL Critically low 14.0-18.0 [facility] Comment on above: Performed By: #### B ENVIRONMENTAL WEB CRAWLER, CMP, LIPA, TONI #### [facility] [address] [place] [address] Dr. Sayda Kapoor IG # 0.07 10e3/ul Critically high 0.00-0.03 [facility] Comment on above: Performed By: #### B ENVIRONMENTAL WEB CRAWLER, CMP, LIPA, TONI #### [facility] [address] [place] [address] Dr. Sayda Kapoor IG % 1.1 % Critically high 0.0-0.5 [facility] Comment on above: Performed By: #### B ENVIRONMENTAL WEB CRAWLER, CMP, LIPA, TONI #### [facility] [address] [place] [address] Dr. Sayda Kapoor LYMPH # 1.1 103/ul Critically low 1.2-3.8 [facility] Comment on above: Performed By: #### B ENVIRONMENTAL WEB CRAWLER, CMP, LIPA, TONI #### [facility] [address] [place] [address] Dr. Sayda Kapoor Lymphocytes/100 WBC (Bld) 17.1 % Critically low 20.5-60.[address] [facility] Comment on above: Performed By: #### B ENVIRONMENTAL WEB CRAWLER, CMP, LIPA, TONI #### [facility] [address] [place] [address] Dr. Sayda Kapoor MANUAL DIFF REQ NO Normal [facility] Comment on above: Performed By: #### B ENVIRONMENTAL WEB CRAWLER, CMP, LIPA, TONI #### [facility] [address] [place] [address] Dr. Sayda Kapoor MCH (RBC) [Entitic mass] 27.2 pg Normal 25.9-34.0 [facility] Comment on above: Performed By: #### B ENVIRONMENTAL WEB CRAWLER, CMP, LIPA, TNOI #### [facility] [address] [place] [address] Dr. Sayda Kapoor MCHC (RBC) [Mass/Vol] 32.1 g/dL Normal 29.9-35.[address] [facility] Comment on above: Performed By: #### B ENVIRONMENTAL WEB CRAWLER, CMP, LIPA, TONI #### [facility] [address] [place] [address] Dr. Sayda Kapoor MCV (RBC) [Entitic vol] 84.7 fL Normal 80.0-94.[address] [facility] Comment on above: Performed By: #### B ENVIRONMENTAL WEB CRAWLER, CMP, LIPA, TONI #### [facility] [address] [place] [address] Dr. Sayda Kapoor MONO # 0.7 103/ul Normal 0.3-0.[address] [facility] Comment on above: Performed By: #### B ENVIRONMENTAL WEB CRAWLER, CMP, LIPA, TONI #### [facility] [address] [place] [address] Dr. Sayda Kapoor Monocytes/100 WBC (Bld) 10.4 % Normal 1.7-12.0 [facility] Comment on above: Performed By: #### B ENVIRONMENTAL WEB CRAWLER, CMP, LIPA, TONI #### [facility] [address] [place] [address] Dr. Sayda Kapoor NEUT # 4.5 103/ul Normal 1.4-6.5 [facility] Comment on above: Performed By: #### B ENVIRONMENTAL WEB CRAWLER, CMP, LIPA, TONI #### [facility] [address] [place] [address] Dr. Sayda Kapoor Neutrophils/100 WBC (Bld) 67.7 % Normal 43.0-75.[address] [facility] Comment on above: Performed By: #### B ENVIRONMENTAL WEB CRAWLER, CMP, LIPA, TONI #### [facility] [address] [place] [address] Dr. Sayda Kapoor Platelet mean volume (Bld) [Entitic vol] 9.0 fL Critically low 9.5-13.5 [facility] Comment on above: Performed By: #### B ENVIRONMENTAL WEB CRAWLER, CMP, LIPA, TONI #### [facility] [address] [address] [address] Sayda Kapoor PLT 318 103/ul Normal 150-450 [facility] Comment on above: Performed By: #### B ENVIRONMENTAL WEB CRAWLER, CMP, LIPA, TONI #### [facility] [address] [address] [address] Sayda Kapoor RBC 3.72 106/ul Critically low 4.70-6.10 [facility] Comment on above: Performed By: #### B ENVIRONMENTAL WEB CRAWLER, CMP, LIPA, TONI #### [facility] [address] [place] [address] Dr. Sayda Kapoor WBC 6.6 103/ul Normal 4.0-11.0 [facility] Comment on above: Performed By: #### B ENVIRONMENTAL WEB CRAWLER, CMP, LIPA, TONI #### [facility] [address] [place] [address] Dr. Sayda Kapoor FERRITINon 07-26-2022 Ferritin [Mass/Vol] 19.0 ng/mL Critically low 26.0-388.0 [facility] Comment on above: Performed By: #### B ENVIRONMENTAL WEB CRAWLER, CMP, LIPA, TONI #### [facility] [address] [place] [address] Dr. Sayda Kapoor IRON AND TIBCon 07-26-2022 % SATURATION 10.0 % Normal [facility] Comment on above: Performed By: #### B ENVIRONMENTAL WEB CRAWLER, CMP, LIPA, TONI #### [facility] [address] [place] [address] Dr. Sayda Kapoor Iron [Mass/Vol] 30.0 ug/dL Critically low 65.0-175.0 [facility] Comment on above: Performed By: #### B ENVIRONMENTAL WEB CRAWLER, CMP, LIPA, TONI #### [facility] [address] [place] [address] Dr. Sayda Kapoor TIBC DIRECT 299.0 ug/dL Normal 250.0-450.0 [facility] Comment on above: Performed By: #### B ENVIRONMENTAL WEB CRAWLER, CMP, LIPA, TONI #### [facility] [address] [place] [address] Dr. Sayda Kapoor PANCREATIC ELASTASE FECALon 07-19-2022 Pancreatic Elastase, Fecal 466 ug Elast./g Normal >200 [facility] Comment on above: Result Comment: Serenity re Pancreatic Insufficiency: <100 Moderate Pancreatic Insufficiency: 100 - 200 Normal: >200 Performed By: #### C MREP #### [facility] [address] [address] [address] Sayda Kapoor BOWEL DISORDERS EVALUATION R ULE-OUT CASCon 07-18-2022 Antigliadin 1 units Normal 0-19 [facility] Comment on above: Result Comment: Nega tive 0 - 19 Weak Positive 20 - 30 Moderate to Strong Positive >30 . Performed By: #### B ENVIRONMENTAL WEB CRAWLER, CMP, LIPA, TONI #### [facility] [address] [address] [address] Sayda Kapoor Atypical pANCA Negative Normal Negative [facility] Comment on above: Performed By: #### B ENVIRONMENTAL WEB CRAWLER, CMP, LIPA, TONI #### [facility] [address] [address] [address] Sayda Kapoor Note: [place] continues Normal [facility] Comment on above: Performed By: #### B ENVIRONMENTAL WEB CRAWLER, CMP, LIPA, TONI #### [facility] [address] [address] [address] Sayda Kapoor Note: Comment Normal [facility] Comment on above: Result Comment: Sugg estive of irritable bowel syndrome (IBS). Careful evaluation of the patient's history, physical examination, and application of Jr III diagnostic criteria may help to rule in or rule out the diagnosis of IBS. Subsequent testing for Fecal Calprotectin (972826) may be recommended. If IBD is strongly suspected, subsequent testing with the Crohn's Disease Prognostic Profile (683309) that includes anti- glycan antibodies AMCA, ALCA, ACCA, and Sarbjit may aid in differential diagnosis. Performed By: #### B ENVIRONMENTAL WEB CRAWLER, CMP, LIPA, TONI #### [facility] [address] [address] [address] Sayda Kapoor Saccharomyces Cer. IgG <20.0 Normal 0.0-24.9 [facility] Comment on above: Result Comment: Nega tive <20.0 Equivocal 20.1 - 24.9 Positive >or= 25.0 Performed By: #### B ENVIRONMENTAL WEB CRAWLER, CMP, LIPA, TONI #### [facility] [address] [address] [address] Sayda Kapoor tTG/DGP SCR Negative Normal Negative [facility] Comment on above: Performed By: #### B ENVIRONMENTAL WEB CRAWLER, CMP, LIPA, TONI #### [facility] [address] [address] [address] Sayda Kapoor LACTOFERRIN FECAL QUANTon Lactoferrin, Fecal, Quant. 35.24 ug/mL(g) Critically high 0.00-7.24 [facility] Comment on above: Result Comment: Re sults [...] (IBS). Performed By: #### D IG #### [facility] [address] [place] [address] Dr. Sayda Kapoor QUANTIFERON TB GOLD PLUSon 1 09-15-2021 QuantiFERON Criteria Comment Normal [facility] Comment on above: Result Comment: Colt tiFERON-TB [...] test. Performed By: #### Q NTTB #### [facility] [address] [place] [address] Dr. Sayda Kapoor QuantiFERON Incubation Incubation performed. Normal [facility] Comment on above: Performed By: #### Q NTTB #### [facility] [address] [address] [address] Sayda Kapoor QuantiFERON Mitogen Value 8.53 IU/mL Normal [facility] Comment on above: Performed By: #### Q NTTB #### [facility] [address] [address] [address] Sayda Kapoor QuantiFERON Nil Value 0.04 IU/mL Normal [facility] Comment on above: Performed By: #### Q NTTB #### [facility] [address] [place] [address] Dr. Sayda Kapoor QuantiFERON TB1 Ag Value 0.07 IU/mL Normal [facility] Comment on above: Performed By: #### Q NTTB #### [facility] [address] [place] [address] Dr. Sayda Kapoor QuantiFERON TB2 Ag Value 0.04 IU/mL Normal [facility] Comment on above: Performed By: #### Q NTTB #### [facility] [address] [place] [address] Dr. Sayda Kapoor QuantiFERON-TB Gold Plus Negative Normal Negative [facility] Comment on above: Result Comment: No r esponse to M tuberculosis antigens detected. Infection with M tuberculosis is unlikely, but high risk individuals should be considered for additional testing (ATS/IDSA/CDC Clinical Practice Guidelines, 2017). The reference range is an Antigen minus Nil result of <0.35 IU/mL. Chemiluminescence immunoassay methodology Performed By: #### Q NTTB #### [facility] [address] [place] [address] Dr. Sayda Kapoor CALPROTECTIN, FECALon 2021 Calprotectin, Fecal 247 ug/g Critically high 0-120 [facility] Comment on above: Result Comment: Conc entration Interpretation Follow-Up <16 - 50 ug/g Normal None >50 -120 ug/g Borderline Re-evaluate in 4-6 weeks >120 ug/g Abnormal Repeat as clinically indicated Performed By: #### C MREP #### [facility] [address] [place] [address] Dr. Sayda Kapoor HEP B COREon 07-13-2022 Hep B Core Ab, Tot Negative Normal Negative [facility] Comment on above: Performed By: #### H BCORE #### [facility] [address] [place] [address] Dr. Sayda Kapoor HEP B SURFACE ANTIGEN SCREEN on 07-13-2022 HBsAg Screen Negative Normal Negative [facility] Comment on above: Performed By: #### B ENVIRONMENTAL WEB CRAWLER, CMP, LIPA, TONI #### [facility] [address] [address] [address] Sayda Kapoor CBC AUTO DIFFon 07-11-2022 BASO # 0.1 103/ul Normal 0.0-0.1 [facility] Comment on above: Performed By: #### C BC #### [facility] [address] [address] [address] Sayda Kapoor Basophils/100 WBC (Bld) 0.8 % Normal 0.2-2.0 [facility] Comment on above: Performed By: #### C BC #### [facility] [address] [place] [address] Dr. Sayda Kapoor EO # 0.2 103/ul Normal 0.0-0.[address] [facility] Comment on above: Performed By: #### C BC #### [facility] [address] [address] [address] Sayda Kapoor Eosinophils/100 WBC (Bld) 3.3 % Normal 0.9-7.0 [facility] Comment on above: Performed By: #### C BC #### [facility] [address] [place] [address] Dr. Sayda Kapoor Erythrocyte distribution width (RBC) [Ratio] 14.6 % Normal 11.0-15.[address] [facility] Comment on above: Performed By: #### C BC #### [facility] [address] [place] [address] Dr. Sayda Kapoor Hematocrit (Bld) [Volume fraction] 29.7 % Critically low 42.0-54.0 [facility] Comment on above: Performed By: #### C BC #### [facility] [address] [address] [address] Sayda Kapoor Hemoglobin (Bld) [Mass/Vol] 9.5 g/dL Critically low 14.0-18.[address] [facility] Comment on above: Performed By: #### C BC #### [facility] [address] [address] [address] Sayda Kapoor IG # 0.03 10e3/ul Normal 0.00-0.03 [facility] Comment on above: Performed By: #### C BC #### [facility] [address] [address] [address] Sayda Kapoor IG % 0.4 % Normal 0.0-0.5 [facility] Comment on above: Performed By: #### C BC #### [facility] [address] [place] [address] Dr. Sayda Kapoor LYMPH # 1.0 103/ul Critically low 1.2-3.8 [facility] Comment on above: Performed By: #### C BC #### [facility] [address] [place] [address] Dr. Sayda Kapoor Lymphocytes/100 WBC (Bld) 13.6 % Critically low 20.5-60.0 [facility] Comment on above: Performed By: #### C BC #### [facility] [address] [place] [address] Dr. Sayda Kapoor MANUAL DIFF REQ NO Normal [facility] Comment on above: Performed By: #### C BC #### [facility] [address] [place] [address] Dr. Sayda Kapoor MCH (RBC) [Entitic mass] 27.6 pg Normal 25.9-34.0 [facility] Comment on above: Performed By: #### C BC #### [facility] [address] [place] [address] Dr. Sayda Kapoor MCHC (RBC) [Mass/Vol] 32.0 g/dL Normal 29.9-35.2 [facility] Comment on above: Performed By: #### C BC #### [facility] [address] [place] [address] Dr. Sayda Kapoor MCV (RBC) [Entitic vol] 86.3 fL Normal 80.0-94.0 [facility] Comment on above: Performed By: #### C BC #### [facility] [address] [place] [address] Dr. Sayda Kapoor MONO # 0.6 103/ul Normal 0.3-0.[address] [facility] Comment on above: Performed By: #### C BC #### [facility] [address] [place] [address] Dr. Sayda Kapoor Monocytes/100 WBC (Bld) 8.6 % Normal 1.7-12.[address] [facility] Comment on above: Performed By: #### C BC #### [facility] [address] [place] [address] Dr. Sayda Kapoor NEUT # 5.2 103/ul Normal 1.4-6.[address] [facility] Comment on above: Performed By: #### C BC #### [facility] [address] [place] [address] Dr. Sayda Kapoor Neutrophils/100 WBC (Bld) 73.3 % Normal 43.0-75.[address] [facility] Comment on above: Performed By: #### C BC #### [facility] [address] [place] [address] Dr. Sayda Kapoor Platelet mean volume (Bld) [Entitic vol] 8.9 fL Critically low 9.5-13.[address] [facility] Comment on above: Performed By: #### C BC #### [facility] [address] [place] [address] Dr. Sayda Kapoor PLT 242 103/ul Normal 150-[address] [facility] Comment on above: Performed By: #### C BC #### [facility] [address] [place] [address] Dr. Sayda Kapoor RBC 3.44 106/ul Critically low 4.70-6.10 [facility] Comment on above: Performed By: #### C BC #### [facility] [address] [place] [address] Dr. Sayda Kapoor WBC 7.1 103/ul Normal 4.0-11.[address] [facility] Comment on above: Performed By: #### C BC #### [facility] [address] [place] [address] Dr. Sayda Kapoor CRPon 07-11-2022 CRP 0.5 mg/dL Normal <=1.0 [facility] Comment on above: Performed By: #### Q NTTB #### [facility] [address] [place] [address] Dr. Sayda Kapoor PROF 14(COMP METB)on 022 Albumin [Mass/Vol] 2.9 g/dL Critically low 3.4-5.[address] [facility] Comment on above: Performed By: #### Q NTTB #### [facility] [address] [place] [address] Dr. Sayda Kapoor Albumin/Globulin [Mass ratio] 0.9 {ratio} Normal [facility] Comment on above: Performed By: #### Q NTTB #### [facility] [address] [place] [address] Dr. Sayda Kapoor ALP [Catalytic activity/Vol] 60 U/L Normal 46-116 [facility] Comment on above: Performed By: #### Q NTTB #### [facility] [address] [place] [address] Dr. Sayda Kapoor ALT [Catalytic activity/Vol] 15 U/L Critically low 16-63 [facility] Comment on above: Performed By: #### Q NTTB #### [facility] [address] [place] [address] Dr. Sayda Kapoor Anion gap [Moles/Vol] 8.6 mmol/L Normal [facility] Comment on above: Performed By: #### Q NTTB #### [facility] [address] [place] [address] Dr. Sayda Kapoor AST [Catalytic activity/Vol] 10 U/L Critically low 15-37 [facility] Comment on above: Performed By: #### Q NTTB #### [facility] [address] [place] [address] Dr. Sayda Kapoor Bilirubin [Mass/Vol] 0.3 mg/dL Normal 0.2-1.0 [facility] Comment on above: Performed By: #### Q NTTB #### [facility] [address] [place] [address] Dr. Sayda Kapoor Calcium [Mass/Vol] 8.4 mg/dL Critically low 8.5-10.[address] [facility] Comment on above: Performed By: #### Q NTTB #### [facility] [address] [place] [address] Dr. Sayda Kapoor Chloride [Moles/Vol] 104 mmol/L Normal 98-107 [facility] Comment on above: Performed By: #### Q NTTB #### [facility] [address] [address] [address] Sayda Kapoor CO2 [Moles/Vol] 29.2 mmol/L Normal 21.0-32.0 [facility] Comment on above: Performed By: #### Q NTTB #### [facility] [address] [place] [address] Dr. Sayda Kapoor Creatinine [Mass/Vol] 1.04 mg/dL Normal 0.70-1.30 [facility] Comment on above: Performed By: #### Q NTTB #### [facility] [address] [place] [address] Dr. Sayda Kapoor EGFR-AF BULGARIAN >60 Normal >=60 [facility] Comment on above: Performed By: #### Q NTTB #### [facility] [address] [place] [address] Dr. Sayda Kapoor EGFR-NON AF BULGARIAN >60 Normal >=60 [facility] Comment on above: Performed By: #### Q NTTB #### [facility] [address] [place] [address] Dr. Sayda Kapoor Globulin (S) [Mass/Vol] 3.4 g/dL Normal [facility] Comment on above: Performed By: #### Q NTTB #### [facility] [address] [place] [address] Dr. Sayda Kapoor Glucose [Mass/Vol] 93 mg/dL Normal 74-106 [facility] Comment on above: Performed By: #### Q NTTB #### [facility] [address] [place] [address] Dr. Sayda Kapoor Potassium [Moles/Vol] 3.8 mmol/L Normal 3.5-5.1 [facility] Comment on above: Performed By: #### Q NTTB #### [facility] [address] [place] [address] Dr. Sayda Kapoor Protein [Mass/Vol] 6.3 g/dL Critically low 6.4-8.[address] [facility] Comment on above: Performed By: #### Q NTTB #### [facility] [address] [place] [address] Dr. Sayda Kapoor Sodium [Moles/Vol] 138 mmol/L Normal 136-145 [facility] Comment on above: Performed By: #### Q NTTB #### [facility] [address] [place] [address] Dr. Sayda Kapoor Urea nitrogen [Mass/Vol] 17.0 mg/dL Normal 7.0-18.0 [facility] Comment on above: Performed By: #### Q NTTB #### [facility] [address] [place] [address] Dr. Sayda Kapoor Urea nitrogen/Creatinine [Mass ratio] 16.3 mg/mg Normal [facility] Comment on above: Performed By: #### Q NTTB #### [facility] [address] [place] [address] Dr. Sayda Kapoor PROTIMEon 07-11-2022 INR Coag (PPP) [Relative time] 1.07 {INR} Normal [facility] Comment on above: Performed By: #### Q NTTB #### [facility] [address] [place] [address] Dr. Sayda Kapoor INR GUIDELINES SEE BELOW Normal [facility] Comment on above: Result Comment: SOPHIE RED INR: 2.0 - 3.0 CONDITIONS NOT LISTED BELOW 2.5 - 3.5 FOR PROSTHETIC HEART VALVE REPLACEMENT 2.5 - 3.5 RECURRENT THROMBOSIS Performed By: #### Q NTTB #### [facility] [address] [place] [address] Dr. Sayda Kapoor PT Coag (PPP) [Time] 11.5 s Normal 9.0-11.6 [facility] Comment on above: Performed By: #### Q NTTB #### [facility] [address] [address] [address] Sayda Kapoor SED RATE WESTSIERRA TUCSONRENon 2021 SED RATE 16 mm/hr Normal <=20 [facility] Comment on above: Performed By: #### D IG #### [facility] [address] [address] [address] Sayda Kapoor Scanned GI Testingon 022 Scanned GI Testing [id number] Normal [facility] CBC AUTO DIFFon 07-04-2022 BASO # 0.1 103/ul Normal 0.0-0.1 [facility] Comment on above: Performed By: #### C MREP #### [facility] [address] [place] [address] Dr. Sayda Kapoor Basophils/100 WBC (Bld) 0.6 % Normal 0.2-2.0 [facility] Comment on above: Performed By: #### C MREP #### [facility] [address] [address] [address] Sayda Kapoor EO # 0.2 103/ul Normal 0.0-0.7 [facility] Comment on above: Performed By: #### C MREP #### [facility] [address] [place] [address] Dr. Sayda Kapoor Eosinophils/100 WBC (Bld) 2.2 % Normal 0.9-7.[address] [facility] Comment on above: Performed By: #### C MREP #### [facility] [address] [address] [address] Sayda Kapoor Erythrocyte distribution width (RBC) [Ratio] 14.7 % Normal 11.0-15.0 [facility] Comment on above: Performed By: #### C MREP #### [facility] [address] [place] [address] Dr. Sayda Kapoor Hematocrit (Bld) [Volume fraction] 31.9 % Critically low 42.0-54.0 [facility] Comment on above: Performed By: #### C MREP #### [facility] [address] [place] [address] Dr. Sayda Kapoor Hemoglobin (Bld) [Mass/Vol] 10.2 g/dL Critically low 14.0-18.0 [facility] Comment on above: Performed By: #### C MREP #### [facility] [address] [place] [address] Dr. Sayda Kapoor IG # 0.09 10e3/ul Critically high 0.00-0.03 [facility] Comment on above: Performed By: #### C MREP #### [facility] [address] [place] [address] Dr. Sayda Kapoor IG % 1.1 % Critically high 0.0-0.5 [facility] Comment on above: Performed By: #### C MREP #### [facility] [address] [place] [address] Dr. Sayda Kapoor LYMPH # 1.2 103/ul Normal 1.2-3.8 [facility] Comment on above: Performed By: #### C MREP #### [facility] [address] [place] [address] Dr. Sayda Kapoor Lymphocytes/100 WBC (Bld) 14.6 % Critically low 20.5-60.0 [facility] Comment on above: Performed By: #### C MREP #### [facility] [address] [place] [address] Dr. Sayda Kapoor MANUAL DIFF REQ NO Normal [facility] Comment on above: Performed By: #### C MREP #### [facility] [address] [place] [address] Dr. Sayda Kapoor MCH (RBC) [Entitic mass] 27.5 pg Normal 25.9-34.[address] [facility] Comment on above: Performed By: #### C MREP #### [facility] [address] [place] [address] Dr. Sayda Kapoor MCHC (RBC) [Mass/Vol] 32.0 g/dL Normal 29.9-35.[address] [facility] Comment on above: Performed By: #### C MREP #### [facility] [address] [address] [address] Sayda Kapoor MCV (RBC) [Entitic vol] 86.0 fL Normal 80.0-94.0 [facility] Comment on above: Performed By: #### C MREP #### [facility] [address] [place] [address] Dr. Sayda Kapoor MONO # 0.9 103/ul Critically high 0.3-0.8 [facility] Comment on above: Performed By: #### C MREP #### [facility] [address] [place] [address] Dr. Sayda Kapoor Monocytes/100 WBC (Bld) 10.4 % Normal 1.7-12.0 [facility] Comment on above: Performed By: #### C MREP #### [facility] [address] [place] [address] Dr. Sayda Kapoor NEUT # 5.9 103/ul Normal 1.4-6.5 [facility] Comment on above: Performed By: #### C MREP #### [facility] [address] [place] [address] Dr. Sayda Kapoor Neutrophils/100 WBC (Bld) 71.1 % Normal 43.0-75.0 [facility] Comment on above: Performed By: #### C MREP #### [facility] [address] [place] [address] Dr. Sayda Kapoor Platelet mean volume (Bld) [Entitic vol] 8.8 fL Critically low 9.5-13.[address] [facility] Comment on above: Performed By: #### C MREP #### [facility] [address] [place] [address] Dr. Sayda Kapoor PLT 252 103/ul Normal 150-[address] [facility] Comment on above: Performed By: #### C MREP #### [facility] [address] [place] [address] Dr. Sayda Kapoor RBC 3.71 106/ul Critically low 4.70-6.10 [facility] Comment on above: Performed By: #### C MREP #### [facility] [address] [place] [address] Dr. Sayda Kapoor WBC 8.3 103/ul Normal 4.0-11.0 [facility] Comment on above: Performed By: #### C MREP #### [facility] [address] [place] [address] Dr. Sayda Kapoor CRPon 07-04-2022 CRP 1.8 mg/dL Critically high <=1.0 [facility] Comment on above: Performed By: #### B ENVIRONMENTAL WEB CRAWLER, CMP, LIPA, TONI #### [facility] [address] [place] [address] Dr. Sayda Kapoor PROF 14(COMP METB)on 022 Albumin [Mass/Vol] 3.0 g/dL Critically low 3.4-5.0 [facility] Comment on above: Performed By: #### B ENVIRONMENTAL WEB CRAWLER, CMP, LIPA, TONI #### [facility] [address] [place] [address] Dr. Sayda Kapoor Albumin/Globulin [Mass ratio] 1.0 {ratio} Normal [facility] Comment on above: Performed By: #### B ENVIRONMENTAL WEB CRAWLER, CMP, LIPA, TONI #### [facility] [address] [place] [address] Dr. Sayda Kapoor ALP [Catalytic activity/Vol] 54 U/L Normal 46-[address] [facility] Comment on above: Performed By: #### B ENVIRONMENTAL WEB CRAWLER, CMP, LIPA, TONI #### [facility] [address] [place] [address] Dr. Sayda Kapoor ALT [Catalytic activity/Vol] 17 U/L Normal 16-63 [facility] Comment on above: Performed By: #### B ENVIRONMENTAL WEB CRAWLER, CMP, LIPA, TONI #### [facility] [address] [place] [address] Dr. Sayda Kapoor Anion gap [Moles/Vol] 6.8 mmol/L Normal [facility] Comment on above: Performed By: #### B ENVIRONMENTAL WEB CRAWLER, CMP, LIPA, TONI #### [facility] [address] [place] [address] Dr. Sayda Kapoor AST [Catalytic activity/Vol] 13 U/L Critically low 15-37 [facility] Comment on above: Performed By: #### B ENVIRONMENTAL WEB CRAWLER, CMP, LIPA, TONI #### [facility] [address] [place] [address] Dr. Sayda Kapoor Bilirubin [Mass/Vol] 0.5 mg/dL Normal 0.2-1.0 [facility] Comment on above: Performed By: #### B ENVIRONMENTAL WEB CRAWLER, CMP, LIPA, TONI #### [facility] [address] [place] [address] Dr. Sayda Kapoor Calcium [Mass/Vol] 8.3 mg/dL Critically low 8.5-10.1 Th [facility] Comment on above: Performed By: #### B ENVIRONMENTAL WEB CRAWLER, CMP, LIPA, TONI #### [facility] [address] [place] [address] Dr. Sayda Kapoor Chloride [Moles/Vol] 102 mmol/L Normal 98-107 [facility] Comment on above: Performed By: #### B ENVIRONMENTAL WEB CRAWLER, CMP, LIPA, TONI #### [facility] [address] [place] [address] Dr. Sayda Kapoor CO2 [Moles/Vol] 31.7 mmol/L Normal 21.0-32.0 [facility] Comment on above: Performed By: #### B ENVIRONMENTAL WEB CRAWLER, CMP, LIPA, TONI #### [facility] [address] [place] [address] Dr. Sayda Kapoor Creatinine [Mass/Vol] 1.03 mg/dL Normal 0.70-1.30 [facility] Comment on above: Performed By: #### B ENVIRONMENTAL WEB CRAWLER, CMP, LIPA, TONI #### [facility] [address] [place] [address] Dr. Sayda Kapoor EGFR-AF BULGARIAN >60 Normal >=60 [facility] Comment on above: Performed By: #### B ENVIRONMENTAL WEB CRAWLER, CMP, LIPA, TONI #### [facility] [address] [place] [address] Dr. Sayda Kapoor EGFR-NON AF BULGARIAN >60 Normal >=60 [facility] Comment on above: Performed By: #### B ENVIRONMENTAL WEB CRAWLER, CMP, LIPA, TONI #### [facility] [address] [address] [address] Sayda Kapoor Globulin (S) [Mass/Vol] 3.1 g/dL Normal [facility] Comment on above: Performed By: #### B ENVIRONMENTAL WEB CRAWLER, CMP, LIPA, TONI #### [facility] [address] [place] [address] Dr. Sayda Kapoor Glucose [Mass/Vol] 102 mg/dL Normal 74-106 [facility] Comment on above: Performed By: #### B ENVIRONMENTAL WEB CRAWLER, CMP, LIPA, TONI #### [facility] [address] [address] [address] Sayda Kapoor Potassium [Moles/Vol] 3.5 mmol/L Normal 3.5-5.1 [facility] Comment on above: Performed By: #### B ENVIRONMENTAL WEB CRAWLER, CMP, LIPA, TONI #### [facility] [facility] [address] [place] [address] Dr. Sayda Kapoor Protein [Mass/Vol] 6.1 g/dL Critically low 6.4-8.2 [facility] Comment on above: Performed By: #### B ENVIRONMENTAL WEB CRAWLER, CMP, LIPA, TONI #### [facility] [address] [place] [address] Dr. Sayda Kapoor Sodium [Moles/Vol] 137 mmol/L Normal 136-145 [facility] Comment on above: Performed By: #### B ENVIRONMENTAL WEB CRAWLER, CMP, LIPA, TONI #### [facility] [address] [place] [address] Dr. Sayda Kapoor Urea nitrogen [Mass/Vol] 19.0 mg/dL Critically high 7.0-18.0 [facility] Comment on above: Performed By: #### B ENVIRONMENTAL WEB CRAWLER, CMP, LIPA, TONI #### [facility] [address] [place] [address] Dr. Sayda Kapoor Urea nitrogen/Creatinine [Mass ratio] 18.4 mg/mg Normal [facility] Comment on above: Performed By: #### B ENVIRONMENTAL WEB CRAWLER, CMP, LIPA, TONI #### [facility] [address] [address] [address] Sayda Kapoor SED RATE WESTERGRENon 2021 SED RATE 17 mm/hr Normal <=20 [facility] Comment on above: Performed By: #### C MREP #### [facility] [address] [place], [place] [address] Dr. Sayda Kapoor Scanned GI Testingon 022 Scanned GI Testing [id number]#1.0 0CD:127 Normal [facility] Scanned GI Testing [id number] 0CD:127 Normal [facility] US SINGLE QUAD RT UPPERon US [...] CUBA HERNANDEZ Date: 2022-06-23 16:17 Normal [facility] Outside Colonoscopyon 2021 Outside Colonoscopy [id number]#1.0 0CD:127 Normal [facility] Lab Reportson 05-07-2022 Lab Reports [id number]#1.0 0CD:127 Normal [facility] Covid-19 PCR (CVDTB)on SARS-CoV-2 (COVID-19) RNA KAT+probe Ql (Unsp spec) Not detected Normal NOT DETECTED [facility] Comment on above: Result Comment: This test is not yet approved or cleared by the [place] FDA. When there are no FDA-approved or cleared tests available, and other criteria are met, FDA can make tests available under an emergency access mechanism called an Emergency Use Authorization (EUA). The EUA for this test is supported by the [place] of Health and Human Service's (HHS's) declaration [...] consistent with SARS-CoV-2. Performed By: #### C [facility] #### [facility] [address] [place] [address] Dr. Sayda Kapoor Consent for Procedure/Surger yon 04-17-2022 Consent for Procedure/Surgery [id number] CD:127 Normal [facility] RAD - CT Reporton 04-16-2022 RAD - CT Report [id number]#1.0 0CD:127 Normal [facility] CT ABD/PELV W CONon 04-14-20 CT [...] by: CUBA HERNANDEZ Date: 2022-04-14 14:28 Normal [facility] Consultation Noteon 04-09-20 22 Consultation Note [id number]#1.0 0CD:127 Normal [facility] General Surgery Office/Clini c Noteon 04-04-2022 [...] see # 1 7. 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 Normal [facility] Comment on above: Result Comment: Elec tronically Signed By: LAZARO DANGELO, Javid Desai\Date and Time Signed: 04/04/22 11:03 EDT Consultation Noteon 04-03-20 Consultation Note [id number] 0CD:127 Normal [facility] Ambulatory Visit Summaryon 0 04-01-2022 Ambulatory [...] deficiency anemia Nausea Osteoarthritis RUQ pain Normal [facility] PROF 14(COMP METB)on 022 Albumin [Mass/Vol] 2.7 g/dL Critically low 3.4-5.0 [facility] Comment on above: Performed By: #### D IG #### [facility] [address] [place] [address] Dr. Sayda Kapoor Albumin/Globulin [Mass ratio] 0.9 {ratio} Normal [facility] Comment on above: Performed By: #### D IG #### [facility] [address] [address] [address] Sayda Kapoor ALP [Catalytic activity/Vol] 55 U/L Normal 46-116 [facility] Comment on above: Performed By: #### D IG #### [facility] [address] [address] [address] Sayda Kapoor ALT [Catalytic activity/Vol] 16 U/L Normal 16-63 [facility] Comment on above: Performed By: #### D IG #### [facility] [address] [address] [address] Sayda Kapoor Anion gap [Moles/Vol] 13.0 mmol/L Normal [facility] Comment on above: Performed By: #### D IG #### [facility] [address] [address] [address] Sayda Kapoor AST [Catalytic activity/Vol] 10 U/L Critically low 15-37 [facility] Comment on above: Performed By: #### D IG #### [facility] [address] [address] [address] Sayda Kapoor Bilirubin [Mass/Vol] 0.7 mg/dL Normal 0.2-1.0 [facility] Comment on above: Performed By: #### D IG #### [facility] [address] [address] [address] Sayda Kapoor Calcium [Mass/Vol] 7.4 mg/dL Critically low 8.5-10.1 [facility] Comment on above: Performed By: #### D IG #### [facility] [address] [address] [address] Sayda Kapoor Chloride [Moles/Vol] 110 mmol/L Critically high 98-107 [facility] Comment on above: Performed By: #### D IG #### [facility] [address] [address] [address] Sayda Kapoor CO2 [Moles/Vol] 25.1 mmol/L Normal 21.0-32.0 [facility] Comment on above: Performed By: #### D IG #### [facility] [address] [place] [address] Dr. Sayda Kapoor Creatinine [Mass/Vol] 1.16 mg/dL Normal 0.70-1.30 [facility] Comment on above: Performed By: #### D IG #### [facility] [address] [address] [address] Sayda Kapoor EGFR-AF BULGARIAN >60 Normal >=60 [facility] Comment on above: Performed By: #### D IG #### [facility] [address] [address] [address] Sayda Kapoor EGFR-NON AF BULGARIAN >60 Normal >=60 [facility] Comment on above: Performed By: #### D IG #### [facility] [address] [address] [address] Sayda Kapoor Globulin (S) [Mass/Vol] 3.0 g/dL Normal [facility] Comment on above: Performed By: #### D IG #### [facility] [address] [address] [address] Sayda Kapoor Glucose [Mass/Vol] 122 mg/dL Critically high 74-106 [facility] Comment on above: Performed By: #### D IG #### [facility] [address] [address] [address] Sayda Kapoor Potassium [Moles/Vol] 3.1 mmol/L Critically low 3.5-5.1 [facility] Comment on above: Performed By: #### D IG #### [facility] [address] [address] [address] Sayda Kapoor Protein [Mass/Vol] 5.7 g/dL Critically low 6.4-8.2 [facility] Comment on above: Performed By: #### D IG #### [facility] [address] [address] [address] Sayda Kapoor Sodium [Moles/Vol] 145 mmol/L Normal 136-145 [facility] Comment on above: Performed By: #### D IG #### [facility] [address] [address] [address] Sayda Kapoor Urea nitrogen [Mass/Vol] 16.0 mg/dL Normal 7.0-18.0 [facility] Comment on above: Performed By: #### D IG #### [facility] [address] [address] [address] Sayda Kapoor Urea nitrogen/Creatinine [Mass ratio] 13.8 mg/mg Normal [facility] Comment on above: Performed By: #### D IG #### [facility] [address] [address] [address] Sayda Kapoor Lab Reportson 03-18-2022 Lab Reports [id number] .00CD:127 Normal [facility] RAD - Ultrasound Reporton RAD - Ultrasound Report [id number]#1.0 0CD:127 Normal [facility] PROF 14(COMP METB)on 022 Albumin [Mass/Vol] 3.1 g/dL Critically low 3.4-5.0 [facility] Comment on above: Performed By: #### B ENVIRONMENTAL WEB CRAWLER, CMP, LIPA, TONI #### [facility] [address] [address] [address] Sayda Kapoor Albumin/Globulin [Mass ratio] 0.9 {ratio} Normal [facility] Comment on above: Performed By: #### B ENVIRONMENTAL WEB CRAWLER, CMP, LIPA, TONI #### [facility] [address] [place] [address] Dr. Sayda Kapoor ALP [Catalytic activity/Vol] 67 U/L Normal 46-116 [facility] Comment on above: Performed By: #### B ENVIRONMENTAL WEB CRAWLER, CMP, LIPA, TONI #### [facility] [address] [place] [address] Dr. Sayda Kapoor ALT [Catalytic activity/Vol] 25 U/L Normal 16-63 [facility] Comment on above: Performed By: #### B ENVIRONMENTAL WEB CRAWLER, CMP, LIPA, TONI #### [facility] [address] [place] [address] Dr. Sayda Kapoor Anion gap [Moles/Vol] 10.1 mmol/L Normal [facility] Comment on above: Performed By: #### B ENVIRONMENTAL WEB CRAWLER, CMP, LIPA, TONI #### [facility] [address] [place] [address] Dr. Sayda Kapoor AST [Catalytic activity/Vol] 15 U/L Normal 15-37 [facility] Comment on above: Performed By: #### B ENVIRONMENTAL WEB CRAWLER, CMP, LIPA, TONI #### [facility] [address] [place] [address] Dr. Sayda Kapoor Bilirubin [Mass/Vol] 1.1 mg/dL Critically high 0.2-1.0 [facility] Comment on above: Performed By: #### B ENVIRONMENTAL WEB CRAWLER, CMP, LIPA, TONI #### [facility] [address] [place] [address] Dr. Sayda Kapoor Calcium [Mass/Vol] 8.7 mg/dL Normal 8.5-10.1 [facility] Comment on above: Performed By: #### B ENVIRONMENTAL WEB CRAWLER, CMP, LIPA, TONI #### [facility] [address] [place] [address] Dr. Sayda Kapoor Chloride [Moles/Vol] 103 mmol/L Normal 98-107 [facility] Comment on above: Performed By: #### B ENVIRONMENTAL WEB CRAWLER, CMP, LIPA, TONI #### [facility] [address] [place] [address] Dr. Sayda Kapoor CO2 [Moles/Vol] 28.7 mmol/L Normal 21.0-32.0 [facility] Comment on above: Performed By: #### B ENVIRONMENTAL WEB CRAWLER, CMP, LIPA, TONI #### [facility] [address] [place] [address] Dr. Sayda Kapoor Creatinine [Mass/Vol] 1.61 mg/dL Critically high 0.70-1.30 [facility] Comment on above: Performed By: #### B ENVIRONMENTAL WEB CRAWLER, CMP, LIPA, TONI #### [facility] [address] [place] [address] Dr. Sayda Kapoor EGFR-AF BULGARIAN 53 mL/min/1.73m2 Critically low >=60 [facility] Comment on above: Performed By: #### B ENVIRONMENTAL WEB CRAWLER, CMP, LIPA, TONI #### [facility] [address] [place] [address] Dr. Sayda Kapoor EGFR-NON AF BULGARIAN 44 mL/min/1.73m2 Critically low >=60 [facility] Comment on above: Performed By: #### B ENVIRONMENTAL WEB CRAWLER, CMP, LIPA, TONI #### [facility] [address] [place] [address] Dr. Sayda Kapoor Globulin (S) [Mass/Vol] 3.6 g/dL Normal [facility] Comment on above: Performed By: #### B ENVIRONMENTAL WEB CRAWLER, CMP, LIPA, TONI #### [facility] [address] [place] [address] Dr. Sayda Kapoor Glucose [Mass/Vol] 130 mg/dL Critically high 74-106 [facility] Comment on above: Performed By: #### B ENVIRONMENTAL WEB CRAWLER, CMP, LIPA, TONI #### [facility] [address] [place] [address] Dr. Sayda Kapoor Potassium [Moles/Vol] 3.8 mmol/L Normal 3.5-5.1 [facility] Comment on above: Performed By: #### B ENVIRONMENTAL WEB CRAWLER, CMP, LIPA, TONI #### [facility] [address] [place] [address] Dr. Sayda Kapoor Protein [Mass/Vol] 6.7 g/dL Normal 6.4-8.2 [facility] Comment on above: Performed By: #### B ENVIRONMENTAL WEB CRAWLER, CMP, LIPA, TONI #### [facility] [address] [place] [address] Dr. Sayda Kapoor Sodium [Moles/Vol] 138 mmol/L Normal 136-145 [facility] Comment on above: Performed By: #### B ENVIRONMENTAL WEB CRAWLER, CMP, LIPA, TONI #### [facility] [address] [place] [address] Dr. Sayda Kapoor Urea nitrogen [Mass/Vol] 31.0 mg/dL Critically high 7.0-18.0 [facility] Comment on above: Performed By: #### B ENVIRONMENTAL WEB CRAWLER, CMP, LIPA, TONI #### [facility] [address] [place] [address] Dr. Sayda Kapoor Urea nitrogen/Creatinine [Mass ratio] 19.3 mg/mg Normal [facility] Comment on above: Performed By: #### B ENVIRONMENTAL WEB CRAWLER, CMP, LIPA, TONI #### [facility] [address] [place] [address] Dr. Sayda Kapoor AMYLASEon 03-08-2022 Amylase [Catalytic activity/Vol] 63 U/L Normal 25-[address] [facility] Comment on above: Performed By: #### B ENVIRONMENTAL WEB CRAWLER, CMP, LIPA, TONI #### [facility] [address] [place] [address] Dr. Sayda Kapoor BNPon 03-08-2022 Natriuretic peptide B (Bld) [Mass/Vol] 47.0 pg/mL Normal <=900.[address] [facility] Comment on above: Performed By: #### B ENVIRONMENTAL WEB CRAWLER, CMP, LIPA, TONI #### [facility] [address] [place] [address] Dr. Sayda Kapoor CBC AUTO DIFFon 03-08-2022 BASO # 0.0 103/ul Normal 0.0-0.1 [facility] Comment on above: Performed By: #### C MREP #### [facility] [address] [address] [address] Sayda Kapoor Basophils/100 WBC (Bld) 0.5 % Normal 0.2-2.0 [facility] Comment on above: Performed By: #### C MREP #### [facility] [address] [address] [address] Sayda Kapoor EO # 0.3 103/ul Normal 0.0-0.7 [facility] Comment on above: Performed By: #### C MREP #### [facility] [address] [place] [address] Dr. Sayda Kapoor Eosinophils/100 WBC (Bld) 3.1 % Normal 0.9-7.0 [facility] Comment on above: Performed By: #### C MREP #### [facility] [address] [place] [address] Dr. Sayda Kapoor Erythrocyte distribution width (RBC) [Ratio] 13.8 % Normal 11.0-15.0 [facility] Comment on above: Performed By: #### C MREP #### [facility] [address] [place] [address] Dr. Sayda Kapoor Hematocrit (Bld) [Volume fraction] 35.0 % Critically low 42.0-54.0 [facility] Comment on above: Performed By: #### C MREP #### [facility] [address] [place] [address] Dr. Sayda Kapoor Hemoglobin (Bld) [Mass/Vol] 11.3 g/dL Critically low 14.0-18.0 [facility] Comment on above: Performed By: #### C MREP #### [facility] [address] [place] [address] Dr. Sayda Kapoor IG # 0.05 10e3/ul Critically high 0.00-0.03 [facility] Comment on above: Performed By: #### C MREP #### [facility] [address] [place] [address] Dr. Sayda Kapoor IG % 0.6 % Critically high 0.0-0.5 [facility] Comment on above: Performed By: #### C MREP #### [facility] [address] [address] [address] Sayda Kapoor LYMPH # 1.0 103/ul Critically low 1.2-3.8 [facility] Comment on above: Performed By: #### C MREP #### [facility] [address] [address] [address] Sayda Kapoor Lymphocytes/100 WBC (Bld) 11.7 % Critically low 20.5-60.0 [facility] Comment on above: Performed By: #### C MREP #### [facility] [address] [address] [address] Sayda Kapoor MANUAL DIFF REQ NO Normal [facility] Comment on above: Performed By: #### C MREP #### [facility] [address] [place] [address] Dr. Sayda Kapoor MCH (RBC) [Entitic mass] 29.0 pg Normal 25.9-34.0 [facility] Comment on above: Performed By: #### C MREP #### [facility] [address] [place] [address] Dr. Sayda Kapoor MCHC (RBC) [Mass/Vol] 32.3 g/dL Normal 29.9-35.2 [facility] Comment on above: Performed By: #### C MREP #### [facility] [address] [place] [address] Dr. Sayda Kapoor MCV (RBC) [Entitic vol] 90.0 fL Normal 80.0-94.0 [facility] Comment on above: Performed By: #### C MREP #### [facility] [address] [place] [address] Dr. Sayda Kapoor MONO # 0.8 103/ul Normal 0.3-0.8 [facility] Comment on above: Performed By: #### C MREP #### [facility] [address] [address] [address] Sayda Kapoor Monocytes/100 WBC (Bld) 8.9 % Normal 1.7-12.0 [facility] Comment on above: Performed By: #### C MREP #### [facility] [address] [address] [address] Sayda Kapoor NEUT # 6.6 103/ul Critically high 1.4-6.5 [facility] Comment on above: Performed By: #### C MREP #### [facility] [address] [address] [address] Sayda Kapoor Neutrophils/100 WBC (Bld) 75.2 % Critically high 43.0-75.0 [facility] Comment on above: Performed By: #### C MREP #### [facility] [address] [address] [address] Sayda Kapoor Platelet mean volume (Bld) [Entitic vol] 8.9 fL Critically low 9.5-13.5 [facility] Comment on above: Performed By: #### C MREP #### [facility] [address] [address] [address] Sayda Kapoor PLT 317 103/ul Normal 150-450 [facility] Comment on above: Performed By: #### C MREP #### [facility] [address] [address] [address] Sayda Kapoor RBC 3.89 106/ul Critically low 4.70-6.10 [facility] Comment on above: Performed By: #### C MREP #### [facility] [address] [address] [address] Sayda Kapoor WBC 8.7 103/ul Normal 4.0-11.0 [facility] Comment on above: Performed By: #### C MREP #### [facility] [address] [address] [address] Sayda Kapoor IRONon 03-08-2022 Iron [Mass/Vol] 42.0 ug/dL Critically low 65.0-175.0 [facility] Comment on above: Performed By: #### B ENVIRONMENTAL WEB CRAWLER, CMP, LIPA, TONI #### [facility] [address] [address] [address] Sayda Kapoor LIPASEon 03-08-2022 Lipase [Catalytic activity/Vol] 80.0 U/L Normal 73.0-393.0 [facility] Comment on above: Performed By: #### B ENVIRONMENTAL WEB CRAWLER, CMP, LIPA, TONI #### [facility] [address] [place] [address] Dr. Sayda Kapoor PROF 14(COMP METB)on 022 Albumin [Mass/Vol] 3.3 g/dL Critically low 3.4-5.0 [facility] Comment on above: Performed By: #### B ENVIRONMENTAL WEB CRAWLER, CMP, LIPA, TONI #### [facility] [address] [place] [address] Dr. Sayda Kapoor Albumin/Globulin [Mass ratio] 0.8 {ratio} Normal [facility] Comment on above: Performed By: #### B ENVIRONMENTAL WEB CRAWLER, CMP, LIPA, TONI #### [facility] [address] [place] [address] Dr. Sayda Kapoor ALP [Catalytic activity/Vol] 70 U/L Normal 46-116 [facility] Comment on above: Performed By: #### B ENVIRONMENTAL WEB CRAWLER, CMP, LIPA, TONI #### [facility] [address] [place] [address] Dr. Sayda Kapoor ALT [Catalytic activity/Vol] 25 U/L Normal 16-63 [facility] Comment on above: Performed By: #### B ENVIRONMENTAL WEB CRAWLER, CMP, LIPA, TONI #### [facility] [address] [place] [address] Dr. Sayda Kapoor Anion gap [Moles/Vol] 13.7 mmol/L Normal [facility] Comment on above: Performed By: #### B ENVIRONMENTAL WEB CRAWLER, CMP, LIPA, TONI #### [facility] [address] [place] [address] Dr. Sayda Kapoor AST [Catalytic activity/Vol] 15 U/L Normal 15-37 [facility] Comment on above: Performed By: #### B ENVIRONMENTAL WEB CRAWLER, CMP, LIPA, TONI #### [facility] [address] [place] [address] Dr. Sayda Kapoor Bilirubin [Mass/Vol] 0.8 mg/dL Normal 0.2-1.0 [facility] Comment on above: Performed By: #### B ENVIRONMENTAL WEB CRAWLER, CMP, LIPA, TONI #### [facility] [address] [place] [address] Dr. Sayda Kapoor Calcium [Mass/Vol] 8.7 mg/dL Normal 8.5-10.1 [facility] Comment on above: Performed By: #### B ENVIRONMENTAL WEB CRAWLER, CMP, LIPA, TONI #### [facility] [address] [place] [address] Dr. Sayda Kapoor Chloride [Moles/Vol] 102 mmol/L Normal 98-107 [facility] Comment on above: Performed By: #### B ENVIRONMENTAL WEB CRAWLER, CMP, LIPA, TONI #### [facility] [address] [place] [address] Dr. Sayda Kapoor CO2 [Moles/Vol] 28.1 mmol/L Normal 21.0-32.0 [facility] Comment on above: Performed By: #### B ENVIRONMENTAL WEB CRAWLER, CMP, LIPA, TONI #### [facility] [address] [place] [address] Dr. Sayda Kapoor Creatinine [Mass/Vol] 2.04 mg/dL Critically high 0.70-1.30 [facility] Comment on above: Performed By: #### B ENVIRONMENTAL WEB CRAWLER, CMP, LIPA, TONI #### [facility] [address] [place] [address] Dr. Sayda Kapoor EGFR-AF BULGARIAN 40 mL/min/1.73m2 Critically low >=60 [facility] Comment on above: Performed By: #### B ENVIRONMENTAL WEB CRAWLER, CMP, LIPA, TONI #### [facility] [address] [place] [address] Dr. Sayda Kapoor EGFR-NON AF BULGARIAN 33 mL/min/1.73m2 Critically low >=60 [facility] Comment on above: Performed By: #### B ENVIRONMENTAL WEB CRAWLER, CMP, LIPA, TONI #### [facility] [address] [place] [address] Dr. Sayda Kapoor Globulin (S) [Mass/Vol] 3.9 g/dL Normal [facility] Comment on above: Performed By: #### B ENVIRONMENTAL WEB CRAWLER, CMP, LIPA, TONI #### [facility] [address] [place] [address] Dr. Sayda Kapoor Glucose [Mass/Vol] 120 mg/dL Critically high 74-106 [facility] Comment on above: Performed By: #### B ENVIRONMENTAL WEB CRAWLER, CMP, LIPA, TONI #### [facility] [address] [place] [address] Dr. Sayda Kapoor Potassium [Moles/Vol] 3.8 mmol/L Normal 3.5-5.1 [facility] Comment on above: Performed By: #### B ENVIRONMENTAL WEB CRAWLER, CMP, LIPA, TONI #### [facility] [address] [place] [address] Dr. Sayda Kapoor Protein [Mass/Vol] 7.2 g/dL Normal 6.4-8.2 [facility] Comment on above: Performed By: #### B ENVIRONMENTAL WEB CRAWLER, CMP, LIPA, TONI #### [facility] [address] [place] [address] Dr. Sayda Kapoor Sodium [Moles/Vol] 140 mmol/L Normal 136-145 [facility] Comment on above: Performed By: #### B ENVIRONMENTAL WEB CRAWLER, CMP, LIPA, TONI #### [facility] [address] [place] [address] Dr. Sayda Kapoor Urea nitrogen [Mass/Vol] 38.0 mg/dL Critically high 7.0-18.0 [facility] Comment on above: Performed By: #### B ENVIRONMENTAL WEB CRAWLER, CMP, LIPA, TONI #### [facility] [address] [place] [address] Dr. Sayda Kapoor Urea nitrogen/Creatinine [Mass ratio] 18.6 mg/mg Normal [facility] Comment on above: Performed By: #### B ENVIRONMENTAL WEB CRAWLER, CMP, LIPA, TONI #### [facility] [address] [place] [address] Dr. Sayda Kapoor Physician Referralon 022 Physician Referral [phone] [id number] Normal [facility] US SINGLE QUAD RT UPPERon US [...] CL POTTS Date: 2022-03-08 17:27 [address] [facility] Cardiovascular Lab Reporton 01-26-2021 Cardiovascular Lab Report [facility] Patient Name: [facility] Ayo MR #: [id number] Department of Physician: Fatuma Garcia M.D. Division of Service Date: 01/26/2021 Cardiology Birthdate: 1960 Adult Cardiovascular Room #: [facility] [address] [facility]. [place] [address] Cardiovascular Laboratory Report FINAL IMPRESSIONS: 1. Severe, [...] area of myocardium. 6. Follow up with [facility] Cardiology in the [facility] in the next 2 to 3 [...] the right radial artery was obtained. A 6-[place] glide sheath was inserted without difficulty. Bilateral selective coronary angiography was performed using a 6-[place] TIG catheter. After reviewing the images, it was elected to proceed with an interventional procedure. A 6-[place] XB3.0 guide catheter was advanced in over [...] He was to be transferred to the [facility] area in stable condition. FINDINGS: Hemodynamics. [...] in (more content not included)... Normal The [facility] CORONAVIRUS 2019 BY PCRon CORONAVIRUS 2019,PCR DETECTED Abnormal Not Detected [facility] Comment on above: Order Comment: COVID [...] patient management decisions. Fact sheet for providers: https://www.fda.gov/media/677016/download Fact sheet for patients: https://www.fda.gov/media/078490/download This test has received FDA Emergency Use Authorization (EUA) and has been verified by [facility] ([facility]). This test is only authorized for the duration of time that circumstances exist to justify the authorization of the emergency use of in vitro diagnostic tests for the detection of SARS-CoV-2 virus and/or diagnosis of COVID-19 infection under section 564(b)(1) of the Act, 21 U.S.C. 360bbb-3(b)(1), unless the authorization is terminated or revoked sooner. [facility] is certified under CLIA-88 as qualified to perform high complexity testing. Testing is performed in the [facility] laboratories located at [address] [place] [address]. COVID CALLED TO RICHARD , 07/21/2020 16:56 Performed By: #### C OV19 #### [facility] [address] [place] [address] EMPLOYED IN HEALTHCARE? Unknown Normal [facility] Comment on above: Order Comment: COVID CALLED TO RICHARD , 07/21/2020 16:56 Performed By: #### C OV19 #### [place] [address] [place] [address] FIRST COVID NASAL SWAB TEST? Unknown Normal [facility] Comment on above: Order Comment: COVID CALLED TO RICHARD , 07/21/2020 16:56 Performed By: #### C OV19 #### [facility] [address] [place] [address] HOSPITALIZED (OR PLANNED TO BE ADMITTED)? Unknown Normal [facility] Comment on above: Order Comment: COVID CALLED TO RICHARD , 07/21/2020 16:56 Performed By: #### C OV19 #### [facility] [address] [place] [address] ICU? Unknown Normal [facility] Comment on above: Order Comment: COVID CALLED TO RICHARD , 07/21/2020 16:56 Performed By: #### C OV19 #### [facility] [address] [place] [address] RESIDENT IN CONGREGATE CARE SETTING? Unknown Normal [facility] Comment on above: Order Comment: COVID CALLED TO RICHARD , 07/21/2020 16:56 Performed By: #### C OV19 #### [facility] [address] [place] [address] SYMPTOMATIC DEFINED BY CDC? Unknown Normal [facility] Comment on above: Order Comment: COVID CALLED TO RICHARD , 07/21/2020 16:56 Performed By: #### C OV19 #### [facility] [address] [place] [address] Covid 19 Resultson 0 Covid 19 Results [...] available, clean hands with an alcohol-based hand pig lead melter helper that contains at least 60% alcohol. Remember [...] 20 seconds or use an alcohol-based hand pig lead melter helper that contains at least 60% alcohol. Avoid [...] 21-Jul-2020 16:32 by PSCMServmadhuri [employer] (ADMIN) Normal [facility] CORONAVIRUS 2019 BY PCRon Lab Specimen Source Nasal, Nasopharyngeal Normal [facility] Comment on above: Order Comment: COVID CALLED TO RICHARD , 07/21/2020 16:56 Performed By: #### C OV19 #### [facility] [address] [place] [address] Vital Signs Date Time Vital Sign Value Performing Clinician Facility 12-06-2024 13:13-0400 Body height 172.72 cm [facility] 12-06-2024 13:13-0400 Body mass index (BMI) [Ratio] 30.4 kg/m2 [facility] 12-06-2024 13:13-0400 Body weight 90.71 kg [facility] 08-20-2024 10:37-0500 Body temperature 97.3 [degF] Cuba Haywood MD Work Phone: [facility] 08-20-2024 10:37-0500 Diastolic blood pressure 71 mm[Hg] Cuba Haywood MD Work Phone: [facility] 08-20-2024 10:37-0500 Heart rate 77 /min Cuba Haywood MD Work Phone: [facility] 08-20-2024 10:37-0500 SaO2% (BldA) [Mass fraction] 98 % Cuba Haywood MD Work Phone: [facility] 08-20-2024 10:37-0500 Systolic blood pressure 150 mm[Hg] Cuba Haywood MD Work Phone: [facility] 06-04-2024 12:19-0400 Body temperature 97.81 [degF] Pearl Calderon CAT SCAN TECHNOLOGIST.SERVICES MGR Work Phone: [facility] 06-04-2024 12:19-0400 Diastolic blood pressure 99 mm[Hg] Pearl Calderon CAT SCAN TECHNOLOGIST.SERVICES MGR Work Phone: [facility] Comment on above: states stressed from driving 06-04-2024 12:19-0400 Heart rate 69 /min Pearl Calderon CAT SCAN TECHNOLOGIST.SERVICES MGR Work Phone: [facility] 06-04-2024 12:19-0400 SaO2% (BldA) [Mass fraction] 99 % Pearl Calderon CAT SCAN TECHNOLOGIST.SERVICES MGR Work Phone: [facility] 06-04-2024 12:19-0400 Systolic blood pressure 137 mm[Hg] Pearl Calderon CAT SCAN TECHNOLOGIST.SERVICES MGR Work Phone: [facility] Comment on above: states stressed from driving 04-30-2024 14:23-0400 Diastolic blood pressure 75 mm[Hg] Pacc 1 Work Phone: [facility] 04-30-2024 14:23-0400 Systolic blood pressure 145 mm[Hg] Pacc 1 Work Phone: [facility] 04-30-2024 13:37-0400 Body height 172.7 cm Pacc 1 Work Phone: [facility] 04-30-2024 13:37-0400 Body mass index (BMI) [Ratio] 26.68 kg/m2 Pacc 1 Work Phone: [facility] 04-30-2024 13:37-0400 Body temperature 98.29 [degF] Pacc 1 Work Phone: [facility] 04-30-2024 13:37-0400 Body weight 79.6 kg Pac 1 Work Phone: [facility] 04-30-2024 13:37-0400 Heart rate 66 /min Pac 1 Work Phone: [facility] 04-30-2024 13:37-0400 SaO2% (BldA) [Mass fraction] 98 % Pac 1 Work Phone: [facility] 04-28-2024 12:22-0400 Body height 172.7 cm Cuba Haywood MD Work Phone: [facility] 04-28-2024 12:22-0400 Body mass index (BMI) [Ratio] 25.85 kg/m2 Cuba Haywood MD Work Phone: [facility] 04-28-2024 12:22-0400 Body temperature 97.5 [degF] Cuba Haywood MD Work Phone: [facility] 04-28-2024 12:22-0400 Body weight 77.11 kg Cuba Haywood MD Work Phone: [facility] 04-28-2024 12:22-0400 Diastolic blood pressure 63 mm[Hg] Cuba Haywood MD Work Phone: [facility] 04-28-2024 12:22-0400 Heart rate 61 /min Cuba Haywood MD Work Phone: [facility] 04-28-2024 12:22-0400 SaO2% (BldA) [Mass fraction] 99 % Cuba Haywood MD Work Phone: [facility] 04-28-2024 12:22-0400 Systolic blood pressure 131 mm[Hg] Cuba Haywood MD Work Phone: [facility] 04-05-2024 10:21-0400 Body height 172.72 cm MD Perico Mccabe Work Phone: [facility] 04-05-2024 10:21-0400 Body mass index (BMI) [Ratio] 25.8 kg/m2 MD Perico Mccabe Work Phone: [facility] 04-05-2024 10:21-0400 Body weight 77.11 kg MD Perico Mccabe Work Phone: [facility] 09-11-2023 15:00-0500 Body height 172.72 cm Enoch Carnes Other [employer] Other 09-11-2023 15:00-0500 Body mass index (BMI) [Ratio] 32.38 kg/m2 Enoch Carnes Other [employer] Other 09-11-2023 15:00-0500 Body weight 96.62 kg Enoch Carnes Other [employer] Other 08-27-2023 13:07-0500 Body height 172.7 cm Pm 2 [employer] 08-27-2023 13:07-0500 Body mass index (BMI) [Ratio] 28.13 kg/m2 Pm 2 [employer] 08-27-2023 13:07-0500 Body weight 83.92 kg Pm 2 [employer] 04-23-2023 10:45-0400 Body height 172.72 cm Enoch Carnes Other [employer] Other 04-23-2023 10:45-0400 Body mass index (BMI) [Ratio] 32.37 kg/m2 Enoch Carnes Other [employer] Other 04-23-2023 10:45-0400 Body weight 96.57 kg Enoch Carnes Other [employer] Other 04-23-2023 10:45-0400 Diastolic blood pressure 84 mm[Hg] Enoch Carnes Other [employer] Other 04-23-2023 10:45-0400 Systolic blood pressure 184 mm[Hg] Enoch Carnes Other [facility] [employer] Other 07-09-2022 15:30-0500 Body height 172.72 cm Enoch Carnes Other [facility] [employer] Other 07-09-2022 15:30-0500 Body mass index (BMI) [Ratio] 27.52 kg/m2 Enoch Carnes Other [facility] [employer] Other 07-09-2022 15:30-0500 Body weight 82.1 kg Enoch Carnes Other [facility] [employer] Other 05-27-2022 15:44-0400 Body weight 0 kg MD Perico Mccabe Work Phone: [facility] 04-01-2022 15:06-0400 Blood Pressure Location Javid NILL [facility] [place] 04-01-2022 15:06-0400 Diastolic blood pressure 74 mm[Hg] Javid NILL [facility] [place] 04-01-2022 15:06-0400 Heart rate 58 /min Javid NILL [facility] [place] 04-01-2022 15:06-0400 Respiratory rate 16 /min Javid NILL [facility] [place] 04-01-2022 15:06-0400 Systolic blood pressure 124 mm[Hg] Javid NILL [facility] [place] Encounters Encounter Date Encounter Type Care Provider Facility Start: 01-04-2025 End: 01-04-2025 ambulatory AB [facility] Start: 12-06-2024 End: 12-06-2024 ambulatory [facility] Work Phone: Start: 12-06-2024 End: 12-06-2024 Patient encounter procedure [facility] Work Phone: Start: 08-20-2024 End: 08-20-2024 ambulatory CUBA HAYWOOD Facility:[facility] Start: 08-20-2024 End: 08-20-2024 Patient encounter procedure Cuba Haywood MD Work Phone: Colorectal Surgery Comment on above: Follow-up examinatio n after colorectal surgery (Primary Dx) Start: 07-20-2024 End: 07-20-2024 ambulatory [facility] Start: 06-04-2024 End: 06-04-2024 ambulatory CUBA HAYWOOD Facility:[facility] Start: 06-04-2024 End: 06-04-2024 Patient encounter procedure Pearl Calderon APRN.CNP Work Phone: Colorectal Surgery Comment on above: Follow-up examinatio n after colorectal surgery (Primary Dx) Start: 05-13-2024 End: 05-18-2024 Evaluation and management of inpatient CUBA HAYWOOD Facility:[facility] Start: 05-04-2024 End: 05-07-2024 Telephone encounter Dolly Nelson APRN.CNP Work Phone: Pre Anesthesia Comment on above: Anesthesia Consult Start: 04-30-2024 End: 04-30-2024 Admission to establishment Pacc [facility] 1 Work Phone: Pre Anesthesia Start: 04-30-2024 End: 04-30-2024 Anesthesia consultation [facility] Work Phone: Pre Anesthesia Comment on above: Pre-op evaluation (P rimary Dx); Hyperlipidemia, unspecified hyperlipidemia type; Atrial fibrillation, unspecified type (HCC); Atherosclerosis of eyak coronary artery of eyak heart, unspecified whether angina present; Gastroesophageal reflux disease, unspecified whether esophagitis present; Essential hypertension Start: 04-30-2024 End: 04-30-2024 Preprocedural examination done [place] [address] Work Phone: [facility] Work Phone: Start: 04-30-2024 End: 04-30-2024 ambulatory CUBA HAYWOOD Facility:[facility] Start: 04-30-2024 Encounter for other preprocedural examination CUBA HAYWOOD [facility] Start: 04-28-2024 End: 04-28-2024 ambulatory CUBA HAYWOOD Facility:[facility] Start: 04-28-2024 End: 04-28-2024 Patient encounter procedure Cuba Haywood MD Work Phone: Colorectal Surgery Comment on above: Crohn's disease of b oth small and large intestine without complication (HCC) (Primary Dx) Start: 04-16-2024 End: 04-16-2024 Patient encounter procedure MD Perico Mccabe Work Phone: [facility] [place] Work Phone: Start: 04-16-2024 End: 04-16-2024 ambulatory MD Perico Mccabe Work Phone: [facility] Work Phone: Start: 04-05-2024 End: 04-05-2024 Patient encounter procedure MD Perico Mccabe Work Phone: [facility] [place] [facility] Work Phone: Start: 10-01-2023 End: 10-01-2023 Evaluation and management of inpatient ZOIEYi BARNHART [facility] Start: 09-30-2023 End: 09-30-2023 Evaluation and management of inpatient LETHAASAF MONTOYA [facility] Start: 09-16-2023 End: 09-16-2023 Evaluation and management of inpatient ZOIE D [facility] Start: 09-16-2023 End: 09-16-2023 Evaluation and management of inpatient LETHA MONTOYA [facility] Start: 09-11-2023 End: 09-11-2023 ambulatory Enoch Carnes Other [employer] Other Start: 09-11-2023 Office outpatient vi sit 25 minutes Enoch Carnes [facility] Start: 09-11-2023 Telephone encounter Enoch velazquez [facility] Start: 08-27-2023 End: 08-28-2023 ambulatory CUBA Sandoval THOM [facility] Start: 08-27-2023 Encounter for other preprocedural examination LETHA MONTOYA [facility] Start: 08-27-2023 End: 08-27-2023 Patient encounter procedure [facility] Pre-Admission Testing 2 [facility] - Pre Admit Comment on above: Preop examination (P rimary Dx); Coronary artery disease, unspecified vessel or lesion type, unspecified whether angina present, unspecified whether eyak or transplanted heart Start: 08-27-2023 End: 08-27-2023 Preprocedural examination done Pm 2 [facility] Start: 05-19-2023 End: 05-19-2023 ambulatory Enoch Carnes Other [employer] Other Start: 05-19-2023 Telephone encounter Enoch velazquez [facility] Start: 04-24-2023 End: 04-24-2023 ambulatory Enoch Carnes Other [employer] Other Start: 04-24-2023 Telephone encounter Enoch velazquez [facility] Start: 04-23-2023 Office outpatient vi sit 25 minutes Enoch Carnes [facility] Start: 04-23-2023 Telephone encounter Enoch velazquez [facility] Start: 04-23-2023 End: 04-23-2023 Patient encounter procedure MD Perico Mccabe Work Phone: [facility] [place] Work Phone: Start: 04-23-2023 End: 04-23-2023 ambulatory MD Perico Mccabe Work Phone: [employer] Other Start: 11-04-2022 Encounter for other preprocedural examination ROSALINA LABOY [facility] Start: 11-04-2022 Encounter for preprocedural laboratory examination ROSALINA LABOY [facility] Start: 11-01-2022 End: 11-02-2022 ambulatory ROSALINA LABOY Facility:[facility] Start: 11-01-2022 End: 11-02-2022 Encounter for preprocedural laboratory examination ROSALINA LABOY Facility:[facility] Start: 10-24-2022 Encounter for other preprocedural examination ROSALINA LABOY [facility] Start: 10-21-2022 End: 10-23-[address] PERICO MCCABE . Facility:[facility] Start: 10-19-2022 End: 10-20-2022 ambulatory CL POTTS Facility:[facility] Start: 10-19-2022 End: 10-20-2022 Encounter for other preprocedural examination CL POTTS Facility:[facility] Start: 09-05-2022 End: 09-05-2022 ambulatory Enoch Carnes Other [employer] Other Start: 09-05-2022 Telephone encounter Enoch velazquez [facility] Start: 07-26-2022 End: 07-27-[address] Rose CARNES Facility:[facility] Start: 07-24-2022 End: 07-24-2022 ambulatory Enoch Carnes Other [employer] Other Start: 07-24-2022 Telephone encounter Enoch velazquez [facility] Start: 07-11-2022 End: 07-12-[address] PERICO MCCABE . Facility:[facility] Start: 07-09-2022 End: 07-09-2022 ambulatory Enoch Carnes Other [employer] Other Start: 07-09-2022 Office outpatient ne w 45 minutes Enoch Carnes [facility] Start: 07-04-2022 End: 07-05-[address] PERICO MCCABE . Facility:[facility] Start: 06-22-2022 End: 06-23-[address] PERICO MCCABE . Facility:[facility] Start: 06-10-2022 End: 06-10-2022 ambulatory MD Perico Mccabe Work Phone: [facility] Work Phone: Start: 06-10-2022 End: 06-10-2022 Patient encounter procedure MD Perico Mccabe Work Phone: [facility] Start: 05-27-2022 End: 05-27-2022 ambulatory Enoch Carnes Other [employer] Other Start: 05-27-2022 Telephone encounter Enoch Lizama [facility] Start: 05-08-2022 End: 05-09-2022 ambulatory Javid WILLIS Facility:CD:[id number] Start: 05-04-2022 End: 05-05-[address] PERICO MCCABE . Facility: Start: 04-13-2022 End: 04-14-[address] PERICO MCCABE . Facility:[facility] Start: 04-01-2022 End: 04-01-2022 Patient encounter procedure Javid WILLIS [facility] [place] Start: 04-01-2022 End: 04-02-2022 ambulatory Javid WILLIS Facility:[facility] Start: 03-13-2022 End: 03-14-[address] PERICO MCCABE . Facility: Start: 03-08-2022 End: 03-09-[address] PERICO MCCABE . Facility:[facility] Start: 01-26-2021 End: 01-27-2021 ambulatory PHYSICIAN UNKNOWN Facility:[facility] Procedures Date Procedure Procedure Detail Performing Clinician Start: 04-30-2024 Antibody screen CUBA NOGUERA Comment on above: Order Comment: Speci men Type: BLOOD SPECIMEN Ordering Facility: [facility] Address: [address] [place] [address] Performed By: #### T [id number] #### CC [facility] BLOOD BANK [facility] [id number] [address] [place] [address] [place] Start: 04-16-2024 CT of [...] Author Start: 05-15-2027 Diabetes Screening Diabetes Screenin [facility] Start: 04-30-2027 Diabetes Screening Diabetes Screenin [facility] Start: 08-27-2024 Adult BMI Screening Adult BMI Screen ing [facility] Start: 08-27-2024 Tobacco Screening Tobacco Screening [facility] Start: 08-20-2024 End: 08-20-2024 Patient encounter procedure 08/20/2024 10:40 AM EST Office Visit Colorectal Surgery [address] [place], [place] [id number] Cuba Haywood MD [address] [place] [address] EST 3 mo f/u Open [place] Hand Assist Ileocolic resection Colorectal Surgery Comment on above: EST 3 mo f/u Open [place] Hand Assist Ileocolic resection Start: 05-13-2024 End: 05-13-2024 Admission to same day surgery center 05/13/2024 7:30 AM EDT - 05/13/2024 9:50 AM EDT Surgery [facility] Operating Room [address] [place] [id number] [place] [address] [address] LAPAROSCOPY ENTERECTOMY RESECTION SMALL INTESTINE, SINGLE RESECTION AND ANASTOMOSIS [facility] Comment on above: LAPAROSCOPY [...] physician 05/13/2024 7:30 AM EDT Hospital Encounter [facility] [address] [place], [place] [id number] [place] [id number] [address] Crohn's disease of both small and large intestine without complication (HCC) [K50.80] [facility] Comment on above: Crohn's disease of b oth small and large intestine without complication (HCC) [K50.80] Start: 05-02-2024 Covid-19 Vaccine ( season) Covid-19 Vaccine ( season) [facility] Start: 05-02-2024 Covid-19 Vaccine ( season) Covid-19 Vaccine ( season) [facility] Start: 05-02-2024 Influenza vaccination Influenza Vacc ine (#1) [facility] Start: 04-30-2024 End: 07-30-2024 CONFIRM BLOOD TYPE [facility] Comment on above: Expected: 04/30/2024 , Expires: 07/30/2024 Start: 04-30-2024 End: 07-30-2024 TYPE AND SCREEN,30 DAY [facility] Work Phone: Comment on above: Expected: 04/30/2024 , Expires: 07/30/2024 Start: 04-30-2024 End: 04-30-2024 Anesthesia consultation 04/30/2024 1:40 PM EDT PAT Pre Anesthesia [address] [place] [address] 1, Pacc [place] [address] [place] [address] LAPAROSCOPY ENTERECTOMY RESECTION SMALL INTESTINE, SINGLE RESECTION [...] complication (HCC) Expected: 04/29/2024 (Approximate), Expires: 07/29/2024 [facility] Work Phone: Comment on above: Expected: 04/29/2024 (Approximate), Expires: 07/29/2024 Start: 04-29-2024 End: 07-29-2024 Comprehensive metabolic 2000 panel - Serum or Plasma COMPREHENSIVE METABOLIC PANEL Lab Routine Crohn's disease of both small and large intestine without complication (HCC) Expected: 04/29/2024 (Approximate), Expires: 07/29/2024 [facility] Comment on above: Expected: 04/29/2024 (Approximate), Expires: 07/29/2024 Start: 2024 Advance Directive Discussion Advance Directive Discussion [facility] Start: 2024 Pneumococcal Vaccine : 65+ (1 of 1 - PCV) Pneumococcal Vaccine: 65+ (1 of 1 - PCV) [facility] Start: 09-30-2023 End: 09-30-2023 Admission to same day surgery center 09/30/2023 3:00 PM EST - 09/30/2023 3:45 PM EST Surgery [facility] - Surgery [address] [place] [phone] Letha Montoya MD [address] [place] [address] EXTRACTION CATARACT INTRAOCULAR LENS [44562 (CPT )] [facility] Comment on above: EXTRACTION CATARACT INTRAOCULAR LENS [62277 (CPT )] Start: 09-30-2023 Subsequent hospital visit by physician 09/30/2023 3:00 PM EST Hospital Encounter [facility] [address] [place] [phone] Letha Montoya MD [address] [place] [address] [phone] [facility] Start: 09-30-2023 End: 09-30-2023 Xcapsl ctrc rmvl insj io lens prosth w/o ecp EXTRACTION CATARACT INTRAOCULAR LENS cataract left eye 09/30/2023 3:00 PM EST [facility] Start: 09-29-2023 End: 09-29-2023 ambulatory 09/29/2023 4:00 PM EST Support Visit [facility] Admit [address] [place] [address] [facility] Pre Admit Start: 09-16-2023 End: 09-16-2023 Admission to same day surgery center 09/16/2023 3:00 PM EST - 09/16/2023 3:45 PM EST Surgery [facility] [address] [place] [phone] Letha Montoya MD [address] [place] [address] [phone] EXTRACTION CATARACT INTRAOCULAR LENS [26144 (CPT )] [facility] Comment on above: EXTRACTION CATARACT INTRAOCULAR LENS [50552 (CPT )] Start: 09-16-2023 Subsequent hospital visit by physician 09/16/2023 3:00 PM EST Hospital Encounter [facility] [address] [place] [address] Letha Montoya MD [address] [place] [address] [facility] Start: 09-16-2023 End: 09-16-2023 Xcapsl ctrc rmvl insj io lens prosth w/o ecp EXTRACTION CATARACT INTRAOCULAR LENS cataract right eye 09/16/2023 3:00 PM [facility] Start: 05-02-2023 Covid-19 Vaccine ( season) Covid-19 Vaccine ( season) [facility] Start: 05-02-2023 Influenza vaccination Influenza Vacc ine [facility] Start: 06-10-[address] [facility] Start: 2019 RSV Vaccine (1 - 1-d ose 60+ series) RSV Vaccine (1 - 1-dose 60+ series) [facility] Start: 2019 RSV Vaccine (1 - Ris k 60-74 years 1-dose series) RSV Vaccine (1 - Risk 60-74 years 1-dose series) [facility] Start: 2014 Prostate specific antigen measurement Prostate Cancer Screening Discussion [facility] Start: 2009 Administration of varicella zoster vaccine Zoster (Shingles) Vaccine (1 of 2) [facility] Start: 2009 Shingrix Vaccine (1 of 2) Shingrix Vaccine (1 of 2) [facility] Start: 2004 Diabetes Screening Diabetes Screenin g [facility] Start: 2004 Screening for malign ant neoplasm of colon [facility] Start: 1994 Lipid panel Lipid Screening [facility] Start: 1978 DTaP,Tdap and Td Vaccines (1 - Tdap) DTaP,Tdap and Td Vaccines (1 - Tdap) [facility] Start: 1978 Pneumococcal Vaccine : 50+ (1 of 2 - PCV) Pneumococcal Vaccine: 50+ (1 of 2 - PCV) [facility] Start: 1978 Shingrix Vaccine (1 of 2) Shingrix Vaccine (1 of 2) [facility] Start: 1978 Urine microalbumin profile DTaP,Tdap,Td Vaccine (1 - Tdap) [facility] Start: 1977 Adult BMI Follow Up Plan Adult BMI Follow Up Plan [facility] Start: 1977 Annual PCP Team Laboratory Administrative Director cindy Disease Visit Annual PCP Team Chronic Disease Visit [facility] Start: 1977 Anxiety Screening Anxiety Screening [facility] Start: 1977 BP Controlled (<130/80) BP Controlle d (<130/80) [facility] Start: 1977 Depression Screening Depression Scre ening [facility] Start: 1977 Hepatitis B surface antibody level LDL Cholesterol [facility] Start: 1977 Hepatitis C screening Hepatitis C Sc reening [facility] Start: 1977 HIV screening [facility] Start: 1971 Depression Screening Depression Scre ing [facility] Start: 1965 Pneumococcal Vaccine : 65+ (1 of 2 - PCV) Pneumococcal Vaccine: 65+ (1 of 2 - PCV) [facility] ECG COMPLETE ECG COMPLETE ECG Routine Pre-op evaluation Ordered: 04/30/2024 [facility] Comment on above: Ordered: 04/30/2024 Payers Date Payer Category Payer Medicare [facility] PPO [id number] 2024-Present [phone] [address] [address] [place] [address] PPO [id number] 2024 Private Health Insurance [id number] 2023 Self-pay [id number] 2019 Unknown [employer] M [place] SUPERMED [id number] 2019-Present [phone] [address] [place] [address] [id number] 1959 Self-pay [id number] 1959 Unknown [id number] 1959 Unknown [id number] 2.16.840.1.467207.3.579.2. 647 1959 Unknown [id number] 2.16.840.1.050442.3.579.2. 727 1959 Unknown [id number] 2.16.840.1.614556.3.579.2. 727 1959 Unknown [id number] 2.16.840.1.721584.3.579.2. 593 1959 Unknown [id number] 2.16.840.1.557574.3.579.2. 593 1959 Unknown [id number] 2.16.840.1.573393.3.579.2. 593 1959 Unknown [id number] 2.16.840.1.015345.3.579.2. 593 1959 Unknown [id number] 2.16.840.1.058316.3.579.2. 593 1959 Unknown [id number] 2.16.840.1.983285.3.579.2. 593 1959 Unknown [id number] 2.16.840.1.966689.3.579.2. 593 1959 Unknown [id number] 2.16.840.1.348470.3.579.2. 593 1959 Unknown [id number] 2.16.840.1.972910.3.579.2. 593 1959 Unknown [id number] 2.16.840.1.969198.3.579.2. 593 1959 Unknown [id number] 2.16.840.1.081173.3.579.2. 593 1959 Unknown [id number] 2.16.840.1.357536.3.579.2. 593 1959 Unknown [id number] 2.16.840.1.730431.3.579.2. 593 1959 Unknown [id number] 2.16.840.1.461649.3.579.2. 593 1959 Unknown [id number] 2.16.840.1.457962.3.579.2. 593 1959 Unknown [id number] 2.16.840.1.791245.3.579.2. 1286 1959 Unknown [id number] 2.16.840.1.612418.3.579.2. 1286 1959 Unknown [id number] 2.16.840.1.005241.3.579.2. 1286 1959 Unknown [id number] 2.16.840.1.724680.3.579.2. 128 1959 Unknown [id number] 2.16.840.1.513197.3.579.2. 1286 1959 Unknown [id number] 2.16.840.1.078655.3.579.2. 1286 1959 Unknown [id number] 2.16.840.1.918985.3.579.2. 1286 1959 Unknown [id number] 2.16.840.1.154057.3.579.2. 1286 Unknown Brent BC/PEDRITO [id number] Unknown [id number] 2.16.840.1.263422.3.579.2. 531 Unknown [id number] 2.16.840.1.204186.3.579.2. 531 Social History Date Type Detail Facility Start: 04-01-2022 End: 12-06-2024 Tobacco smoking status Never smoked tobacco (finding) [facility] [place] Tobacco smoking status Never [facility] [place] Start: 09-26-2020 End: 04-29-2024 Sex Assigned At Male [facility] [place] Start: 1960 Sex Assigned At Male Kristin [facility] Start: 01-12-2024 [facility] (finding[facility] Start: 02-12-2021 End: 08-27-2023 Tobacco use and exposure Smokeless tobacco non-user [facility] [employer] Start: 08-27-2023 End: 04-29-2024 Alcoholic beverage intake [facility]finding[facility] Start: 09-26-2020 End: 04-29-2024 History of Social function [facility] Start: 1960 Sex assigned at Not on file P [employer] Has the [employer], or [employer] threatened to shut off services in your home in past 12Mo No [facility] (I/We) worried [facility] (my/our) food would run out before (I/we) got money to buy more. Never true [facility] Start: 08-27-2023 Alcohol Comment very rare [facility] Start: 12-06-2024 Sex Male (finding) [facility] Equipment Procedure Code Equipment Code Equipment Origin al Text Equipment Identifier Dates Capsule endoscopy, for patency of lumen evaluation Video capsule endoscopy system ([id number] [facility] Start: 06-10-2022 Goals Date Patient Goal Desired Activity /State Functional Status Date Assessment Result Facility 04-01-2022 Functional Status N/A [facility] [place] Clinical Notes 05-08-2022 to 01-04-2025 Cuba Haywood MD - 08/20/2024 10:40 AM Pearl Lizarraga APRN.SERVICES MGR - 06/04/2024 12:20 PM Arleen Tanner OCCA - 06/04/2024 12:19 PM Arleen Tanner, TIMOTHYA - 06/04/2024 12:19 PM EDT Note Date & Type Note Facility 01-04-2025 Note [facility] Cardiology Clinic Note Chief Complaint: HPI: [...] intravascular lithotripsy and (more content not included)... [facility] 08-20-2024 History of Presen t illness Narrative [...] spasms. 15 tablet 0 adalimumab (HUMIRA,CF, PEN JPEDED-SZ-SP) 80 mg/0.8 mL pen kit Inject 80 [...] MD Colorectal Surgery documented in this encounter [facility] 08-20-2024 Note HNO ID: [id number] Author: CUBA HAYWOOD MD Service: ? Author [...] spasms. 15 tablet 0 adalimumab (HUMIRA,CF, PEN LCEHDB-UL-ZH) 80 mg/0.8 mL pen kit Inject 80 [...] treatment plan: mauricio Haywood MD Colorectal Surgery [facility] 07-20-2024 Note Pt is here for [facility] follow up. Review of Systems Constitutional: Positive for malaise/fatigue. Musculoskeletal: Positive for arthritis, back pain, joint pain and myalgias. Gastrointestinal: Positive for abdominal pain. Neurological: Positive for light-headedness ( occasional ). All other systems reviewed and are negative. [facility] 07-20-2024 Note Cardiovascular Medic [facility] SUBJECTIVE Chief Complaint Patient presents with Coronary Artery Disease Hypertension Hyperlipidemia Ayo Alicia is a 64 y.o. male here for follow-up. HPI PMHx: -CAD - EIRC to LAD 01/26/21 (cath also noted severe [...] spine Erectile dysfunction Fatigue Iron deficiency anemia USP current use of anticoagulant therapy Aortic valve [...] 14 05/27/23 Hgb (more content not included)... [facility] 06-04-2024 History of Presen t illness Narrative COLORECTAL SURGERY June 04, 2024 Ayo Alicia 64 year old This consult was requested by Dr. Haywood and my final recommendations will be communicated to the requesting health care provider by way of the shared medical record for internal providers or letter via the [employer] for external providers. Chief Complaint: [...] spasms. 15 tablet 0 adalimumab (HUMIRA,CF, PEN UYQKJB-CQ-ZS) 80 mg/0.8 mL pen kit Inject 80 [...] APRN.CNP Colorectal Surgery documented in this encounter [facility] 06-04-2024 Note HNO ID: [id number] Author: PEARL CALDERON APRN.CNP Service: ? Author Type: Nurse Practitioner Type: Progress Notes Filed: 06/04/2024 12:46 Note Text: COLORECTAL SURGERY June 04, 2024 Ayo Alicia 64 year old This consult was requested by Dr. Haywood and my final recommendations will be communicated to the requesting health care provider by way of the shared medical record for internal providers or letter via the [employer] for external providers. Chief Complaint: [...] spasms. 15 tablet 0 adalimumab (HUMIRA,CF, PEN WGNVOR-SP-MU) 80 mg/0.8 mL pen kit Inject 80 [...] 3 months, scheduled (more content not included)... [facility] 06-04-2024 Nurse Note What is the reason for your visit today? Post op Who is your referring physician? Are you having poor oral intake? NO Have you had unintentional weight loss of 15 lbs/7 Kg in the last 3-6 months? NO Bowels: regular or soft Wound: clean & dry Temperature: No Drains: No [facility] 06-04-2024 Nurse Note What is the reason for your visit today? Post op Who is your referring physician? Are you having poor oral intake? NO Have you had unintentional weight loss of 15 lbs/7 Kg in the last 3-6 months? NO Bowels: regular or soft Wound: clean & dry Temperature: No Drains: No documented in this encounter [facility] 05-18-2024 Note HNO ID: [id number] Author: ?, ?, ? Service: ? Author Type: ? Type: Plan of Care Filed: 05/18/2024 18:00 Note Text: PHARMACY BEDSIDE DELIVERY SERVICE Patient Name: Ayo Alicia The marked outpatient medications were Filled at: [facility] and delivered to the patient's bedside to [place] [address]. Medication List START taking these medications DIGESTIVE [...] tablet Commonly known as: COREG HUMIRA(CF) PEN FREVRW-KO-AO 80 mg/0.8 mL pen kit Generic drug: [...] neomycin 500 mg tablet Lis Herbert PAGER: [phone] May 18, 2024 5:59 PM [facility] 05-18-2024 Note HNO ID: [id number] Author: NASIM JENKINS LSW Service: Care Management Author Type: Construction Foreman Type: Care Mgt Progress Note Filed: 05/18/2024 [...] Primary Care Physician Name/Phone: Perico Mccabe MD [phone] Additional Information: Patient is ambulating the sotelo unassisted with no DME. No skilled needs. SIGNATURE: FIDELINA Lara PATIENT NAME: Ayo Alicia DATE: May 18, 2024 TIME: 1:20 PM CONTACT #: [phone] IMM Follow Up Copy Given: Yes Copy given to:: Patient Method: In Person [facility] 05-18-2024 Note HNO ID: [id number] Author: AMADA PETTIT MD Service: Colorectal Author [...] Surgery Resident, PGY-2 05/18/2024 7:57 AM Pager: [phone] SUBJECTIVE: - No acute events overnight - [...] 12.88* HB 8.4* HCT 27.6* PLT 382 [facility] 05-17-2024 Note HNO ID: [id number] Author: AMADA PETTIT MD Service: Colorectal Author [...] Surgery Resident, PGY-2 05/17/2024 5:58 AM Pager: [phone] SUBJECTIVE: - No acute events overnight - [...] -- 1.9 -- CA -- 8.3* -- [facility] 05-16-2024 Note HNO ID: [id number] Author: VANITA CLAIRE RN Service: Care Management Author Type: Registered Nurse Type: Care Mgt Progress Note Filed: 05/16/2024 16:09 Note Text: CARE MANAGEMENT PROGRESS NOTE SERVICE DATE: 05/16/2024 SERVICE TIME: 4:07 PM LOS: 3 days Post-Acute Discharge Planning Patient Goal(s): General wellness [place]urch[place] of Choice Explained: Yes post-Acute Discharge Plan: CM met with pt at bedside. Pt agreeable to visit. PT rec Home PT. Choices HC agencies provided to pt and referrals sent in [facility]. Will need F2F order. Several attempts to contact surg resident termite control servicer for order. SIGNATURE: Vanita Claire RN PATIENT NAME: Ayo Rodriguez [place] DATE: May 16, 2024 TIME: 4:07 PM PAGER/CONTACT #: [phone] [facility] 05-16-2024 Note HNO ID: [id number] Author: VANITA CLAIRE RN Service: Care Management Author Type: Registered Nurse Type: Care Mgt Progress Note Filed: 05/16/2024 15:19 Note Text: CARE MANAGEMENT PROGRESS NOTE SERVICE DATE: 05/16/2024 SERVICE TIME: 3:17 PM LOS: 3 days Post-Acute Discharge Planning Patient Goal(s): General wellness [place]urch[place] of Choice Explained: Yes Post-Acute Discharge Plan: PT rec Home PT. CM met with pt at bedside. Pt is agreeable to HC PT. Unable to reach surgery for HC order. Bedside RN stated she will try to reach surgical nurse for HC order. SIGNATURE: Vanita Claire RN PATIENT NAME: Ayo Rodriguez [place] DATE: May 16, 2024 TIME: 3:17 PM PAGER/CONTACT #: [phone] [facility] 05-16-2024 Note HNO ID: [id number] Author: AMADA PETTIT MD Service: Colorectal Author [...] Surgery Resident, PGY-2 05/16/2024 9:02 AM Pager: [phone] SUBJECTIVE: - No acute events overnight - [...] -- 1.4* CA -- 8.3* -- 8.3* [facility] 05-15-2024 Note HNO ID: [id number] Author: HARRISON RIVERA DO Service: Colorectal Author [...] 05/13/24. - Pain: Multimodal pain regimen, D/C RULES EXAMINER - CV: Repeat Hb today at noon. [...] DO, PhD General Surgery Resident, PGY-6 Pager: [phone] Subjective INTERVAL HISTORY OF PRESENT ILLNESS: No [...] mg INTRAVENOUS q 2 MIN PRN HYDROmorphone RULES EXAMINER 0.5 mg/mL in NaCl 0.9% 100 mL [...] Date Value 04/30/2024 8 (L) URINALYSIS Specific [place], Ur Date Value Ref Range Status 02/12/2021 [...] Date Value R (more content not included)... 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 Per patient he is and has 2 children - a son and daughter. Per patient his son is his POA. No forms in the chart at this time. Patients dad about 3 years ago, his mom lives close by. No skilled needs. HCPOA [place] on file within [employer] and verified to be current as of date/time of this note: No Legal Next of Kin Hierarchy per [place] Revised Code: not in the chart - per patient his son has the forms Majority of Adult Children (consensus if possible) son and daughter Parents mom Majority of Adult Siblings (consensus if possible) sister Nearest Blood Relative FIDELINA Lara May 14, 2024 SIGNATURE: FIDELINA Lara PATIENT NAME: Ayo Alicia DATE: May 14, 2024 TIME: 12:32 PM CONTACT #: [phone] [facility] 05-14-2024 Note HNO ID: [id number] Author: HARRISON RIVERA DO Service: Colorectal Author [...] - VTE Ppx: SCDs, SQH - Disposition: [facility] Plan of care discussed with staff. Harrison Rivera DO, PhD General Surgery Resident, PGY-6 Pager: [phone] Subjective INTERVAL HISTORY OF PRESENT ILLNESS: No [...] mg INTRAVENOUS q 2 MIN PRN HYDROmorphone RULES EXAMINER 0.5 mg/mL in NaCl 0.9% 100 mL [...] Date Value 04/30/2024 8 (L) URINALYSIS Specific [place], Ur Date Value Ref Range Status 02/12/2021 [...] Ref Range Status 02/12/2021 Negative Negative Final [facility] 05-13-2024 Note HNO ID: [id number] Author: ROHIT DEL CID APRN.INFECTION PREVENTIONIST Service: Anesthesiology Author Type: Nurse Face Hardener Type: Anesthesia Procedure Notes Filed: 05/13/2024 09:27 Note Text: ANESTHESIOLOGY PROCEDURE NOTE PIV General Information Procedure Start Time/Medication Administration: 05/13/2024 9:05 AM Procedure End Time: 05/13/2024 9:06 AM Patient Location: OR Staffing INFECTION PREVENTIONIST: Rohit Del Cid APRN.INFECTION PREVENTIONIST Performed by: ESSENCE Preparation Sterility Preparation: hand hygiene performed prior to procedure Site Prep: Chloraprep Procedure Details Indication: need for IV access Needle Size/Type: 18 gauge angiocath Orientation: Right Location: Hand Imaging Guidance Used: No SIGNATURE: Rohit Del Cid APRN.CRNA PATIENT NAME: Ayo Rodriguez [place] DATE: May 13, 2024 TIME: 9:27 AM CSN: [id number] [facility] 05-13-2024 Note HNO ID: [id number] Author: ROHIT DEL CID APRN.CRNA Service: Anesthesiology Author Type: Nurse Face Hardener Type: Anesthesia Procedure Notes Filed: 05/13/2024 08:33 Note Text: ANESTHESIOLOGY PROCEDURE NOTE Airway General Information Procedure Start Time/Medication Administration: 05/13/2024 7:55 AM Procedure End Time: 05/13/2024 7:56 AM Patient location during procedure: OR Patient identity confirmed: arm band Staffing INFECTION PREVENTIONIST: Rohit Del Cid APRN.INFECTION PREVENTIONIST Performed by: ESSENCE Indications and Patient Condition [...] May 13, 2024 TIME: 8:32 AM CSN: [id number] [facility] 05-07-2024 Telephone encounter Note Spoke with patient via phone call. Aware of anticoag instructions. No questions/concerns voiced. Erna Montoya LPN [facility] 05-07-2024 Miscellaneous Notes Spoke with patient via phone call. Aware of anticoag instructions. No questions/concerns voiced. Erna Montoya LPN I just received fax from cardiology patient okay to stop Eliquis 3 days prior to procedure but he would like him to continue the ASA (PACC ETL APPLICATION DEVELOPER please call and relay this message to [...] Thank you, Lidya documented in this encounter [facility] 05-07-2024 Telephone encounter Note I just received fax from cardiology patient okay to stop Eliquis 3 days prior to procedure but he would like him to continue the ASA (PACC ETL APPLICATION DEVELOPER please call and relay this message to patient). Just wanted to send an FYI. T&S completed. If there are any issues with him continuing the ASA or anything else needed from my end please let me know. Thanks, Dolly Nelson APRN.JOVANA [facility] 05-04-2024 Telephone encounter Note I saw this [...] okay to proceed? Thank you, Lidya T [facility] 04-30-2024 History and physical note HISTORY AND [...] or recurrence Follows with Dr. Pagan @ [facility] Atherosclerosis of coronary artery Assessment: Stable S/p Stenting in 2020 On ASA, DOAC, & Statin Negative stress test 06/17/2023 Follows with Cardiology at [facility] GERD (gastroesophageal reflux disease) Assessment: Controlled with [...] have a large neck STOP-Bang Score: 3 [id number] Score: Age: 65-74 Sex: male CHF history: No Hypertension history: Yes Stroke/TIA/thromboembolism history: No Vascular disease history: Yes Diabetes history: No [id number] Score: 3 ARISCAT Score: Age: 51-80 Preoperative [...] [facility] or Procedure: Answer: [facility] Order Specific Question: Status of surgery/procedure: Answer: [...] 6 hours as needed. adalimumab (HUMIRA,CF, PEN MPZISM-HY-NW) 80 mg/0.8 mL pen kit Sig: Inject [...] as needed. Taking Yes adalimumab (HUMIRA,CF, PEN LWXRRP-EF-AO) 80 mg/0.8 mL pen kit Inject 80 [...] fevers. Neuro: No history of TIA's, stroke, CRISIS NURSE tumor, impaired sensorium, hemiplegia, paraplegia or quadraplegia. No neurological symptoms or problems. Respiratory: No history of current cough or dyspnea, or pneumonia in the past 6 weeks. No history of respiratory/pulmonary symptoms or problems. Cardiovascular: Negative for Recent MO, Angina, Chest Pain, PVD, DVT/PE +CAD s/p [...] Ayo Alicia DATE: 04/30/2024 TIME: 2:08 PM [facility] 04-30-2024 History and physical note HISTORY AND [...] or recurrence Follows with Dr. Pagan @ [place] Atherosclerosis of coronary artery Assessment: Stable S/p Stenting in 2020 On ASA, DOAC, & Statin Negative stress test 06/17/2023 Follows with Cardiology at [place] GERD (gastroesophageal reflux disease) Assessment: Controlled with [...] have a large neck STOP-Bang Score: 3 [id number]-BJDu Score: Age: 65-74 Sex: male CHF history: No Hypertension history: Yes Stroke/TIA/thromboembolism history: No Vascular disease history: Yes Diabetes history: No SLO8LF5-GVRq Score: 3 ARISCAT Score: Age: 51-80 Preoperative [...] [facility] or Procedure: Answer: [place] Order Specific Question: Status of surgery/procedure: Answer: [...] 6 hours as needed. adalimumab (HUMIRA,CF, PEN CIKVDW-VR-AK) 80 mg/0.8 mL pen kit Sig: Inject [...] as needed. Taking Yes adalimumab (HUMIRA,CF, PEN ZGLVOS-EH-GF) 80 mg/0.8 mL pen kit Inject 80 [...] fevers. Neuro: No history of TIA's, stroke, CRISIS NURSE tumor, impaired sensorium, hemiplegia, paraplegia or quadraplegia. No neurological symptoms or problems. Respiratory: No history of current cough or dyspnea, or pneumonia in the past 6 weeks. No history of respiratory/pulmonary symptoms or problems. Cardiovascular: Negative for Recent MO, Angina, Chest Pain, PVD, DVT/PE +CAD s/p [...] TIME: 2:08 PM documented in this encounter [facility] 04-30-2024 Instructions Dolly Nelson APRN.CNP - 04/30/2024 8:09 AM EDT PATIENT PREOPERATIVE INSTRUCTIONS Your Surgeon has scheduled you for your procedure at this surgery center: [facility]: [phone] --[address] [address]. Please check in on the 1st floor [...] Procedures: - YOU MUST HAVE A RESPONSIBLE HARVEST WORKER FRUIT TAKE YOU HOME. A NETWORK CONTROL OPERATOR OR OUTBOUND TELEMARKETING REPRESENTATIVE CANNOT BE MADE A RESPONSIBLE HARVEST WORKER FRUIT. - We recommend that a responsible person [...] Advance Directive, please fax a copy to [phone] or email to for it to be [...] Dolly Nelson APRN.CNP documented in this encounter [facility] 04-28-2024 History of Presen t illness Narrative COLORECTAL SURGERY April 28, 2024 Ayo Alicia 64 year old This consult was requested by Dr. Arias and my final recommendations will be communicated to the requesting health care provider by way of the shared medical record for internal providers or letter via the [employer] for external providers. Chief Complaint: retained capsule History of Present Illness: Ayo Alicia is a 64 year old male presents today for evaluation of retained endoscopic camera. Crohn's disease - dx [address] enterography 04/16/24 Scan on 04/22/2024 8:26 AM by Lisa Arreaga: [facility] CT ABD & PEL [phone] - Tiny hiatal hernia - Cholelithiasis - [...] MD Colorectal Surgery documented in this encounter [facility] 04-28-2024 Note HNO ID: [id number] Author: CUAB HAYWOOD MD Service: ? Author Type: Physician Type: Progress Notes Filed: 04/29/2024 21:55 Note Text: COLORECTAL SURGERY April 28, 2024 Ayo Alicia 64 year old This consult was requested by Dr. Arias and my final recommendations will be communicated to the requesting health care provider by way of the shared medical record for internal providers or letter via the [employer] for external providers. Chief Complaint: retained capsule History of Present Illness: Ayo Alicia is a 64 year old male presents today for evaluation of retained endoscopic camera. Crohn's disease - dx [address] enterography 04/16/24 Scan on 04/22/2024 8:26 AM by Lisa Arreaga: [facility] CT ABD AND PEL [phone] - Tiny hiatal hernia - Cholelithiasis - [...] [facility]. He had a [...] plan: high Cuba Haywood MD Colorectal Surgery [facility] 09-11-2023 Evaluation note Encounter Date Diagnosis [...] did have some recent labs done at [facility] will obtain these reports Patient is to start Amjevita RTO 6 weeks [employer] Other 12-27-2023 Instructions* Patient Instructions* Supriya Morel [...] you have a Living Will/Durable Power of Bottle Assembler for Health Care that is not on file here, please bring a copy the day of surgery. 3. Please wash your face with baby shampoo prior to procedure as instructed by your physician. 4. NO powder, lotion, perfume/cologne, aftershave, make-up, nail vietnamese on at least one finger, deodorant, or [...] please call the Pread[facility] Testing office at [phone], Mon.-Fri. 7 a.m.-3 p.m. Leave a voicemail [...] days prior to procedure [facility] [id number] Miscellaneous Notes* Perioperative Nursing Note - Supriya [...] you have a Living Will/Durable Power of Bottle Assembler for Health Care that is not on file here, please bring a copy the day of surgery. 3. Please wash your face with baby shampoo prior to procedure as instructed by your physician. 4. NO powder, lotion, perfume/cologne, aftershave, make-up, nail vietnamese on at least one finger, deodorant, or [...] please call the Preadmission Testing office at [phone], Mon.-Fri. 7 a.m.-3 p.m. Leave a voicemail [...] reviewed. Patient verbalized understanding. [facility]* Perioperative Nursing Note - Supriya [...] you have a Living Will/Durable Power of Bottle Assembler for Health Care that is not on file here, please bring a copy the day of surgery. 3. Please wash your face with baby shampoo prior to procedure as instructed by your physician. 4. NO powder, lotion, perfume/cologne, aftershave, make-up, nail vietnamese on at least one finger, deodorant, or [...] please call the Preadmission Testing office at [phone], Mon.-Fri. 7 a.m.-3 p.m. Leave a voicemail [...] Stop taking 0 days prior to procedure [facility] [employer]12-27-2023 Nurse Note* Perioperative Nursing Note - Supriya Morel RN - 08/27/2023 12:45 PM EST Surgical instructions reviewed. Patient verbalized understanding. [facility] [employer]09-18-2023 Evaluation note* Encounter Date Diagnosis Assessment Notes Treatment Notes Treatment Clinical Notes May, Crohns disease (ICD-10 - K50.90) [employer] Other 08-24-2023 Evaluation note* Encounter Date Diagnosis Assessment Notes Treatment Notes Treatment Clinical Notes Apr, Iron deficiency anemia (ICD-10 - D50.9) [employer] Other 08-23-2023 Evaluation note* Encounter Date Diagnosis Assessment Notes Treatment Notes Treatment Clinical Notes Apr, Crohns disease (ICD-10 - K50.90) Pt is taking budesonide. Pt advised to start humira and stop budesonide. Labs ordered Pt RTO in 6 wks [employer] Other 11-23-2022 Evaluation note* Encounter Date Diagnosis Assessment Notes Treatment Notes Treatment Clinical Notes Jul, Iron deficiency anemia (ICD-10 - D50.9) [employer] Other 11-08-2022 Evaluation note* Encounter Date Diagnosis Assessment Notes Treatment Notes Treatment Clinical Notes Jul, Iron deficiency anemia (ICD-10 - D50.9) Jul, Crohns disease (ICD-10 - K50.90) CONTINUE SULFASALAZINE 2 TABLETS TWICE A DAY RTO 4 WEEKS Jul, Abdominal pain (ICD-10 - R10.9) Jul, Diarrhea (ICD-10 - R19.7) [employer] Other 09-07-2022 NoteOPERATIVE NOTE OPERATION DATE: 05/08/2022 [...] in good condition. CC: Perico Mccabe M.D.[facility] Plan note No data available for this section [facility] [place] Evaluation noteNo assessment information available [facility] [employer] Work Phone: Evaluation noteNo InformationNort [employer] Other Evaluation note* Diagnosis Onset Date Resolution Status Abdominal pain acute Crohn's disease acute Weight loss, non-intentional acute [facility] Work Phone: Evaluation note* Diagnosis Crohn's disease of both small and large intestine without complication (HCC)- Primary Regional enteritis of small intestine with large intestine Crohn's disease of both small and large intestine without complication (HCC) Regional enteritis of small intestine with large intestine documented in this encounter [facility] note* Diagnosis Pre-op evaluation- Primary Preoperative examination, unspecified Hyperlipidemia, unspecified hyperlipidemia type Atrial fibrillation, unspecified type (HCC) Atherosclerosis of eyak coronary artery of eyak heart, unspecified whether angina present Gastroesophageal reflux [...] stress test 06/17/2023 Follows with Cardiology [place] * Assessment & Plan Note - Dolly Nelson APRN.CNP - 04/30/2024 2:01 PM EDT Associated Problem(s): Atrial fibrillation (HCC) Assessment: Stable per last Cardiology OV note 01/04/2023 S/p Ablation 11/21/2022 On BB, ASA, and Eliquis- Will send letter for coag clearance Denies any palpitations or recurrence Follows with Dr. Pagan @ [place] * Assessment & Plan Note - Dolly Nelson APRN.CNP - 04/30/2024 1:47 PM EDT Associated Problem(s): Hyperlipidemia Assessment: On Statin Follows with PCP documented in this encounter [facility] note* Diagnosis Pre-op evaluation- Primary Preoperative examination, unspecified Hyperlipidemia, unspecified hyperlipidemia type Atrial fibrillation, unspecified type (HCC) Atherosclerosis of eyak coronary artery of eyak heart, unspecified whether angina present Gastroesophageal reflux disease, unspecified whether esophagitis present Essential hypertension Unspecified essential hypertension Anemia, unspecified type Follow-up examination after colorectal surgery- Primary Follow-up examination, following other surgery documented in this encounter [facility] note* Diagnosis Pre-op evaluation- Primary Preoperative examination, unspecified Hyperlipidemia, unspecified hyperlipidemia type Atrial fibrillation, unspecified type (HCC) Atherosclerosis of eyak coronary artery of eyak heart, unspecified whether angina present Gastroesophageal reflux disease, unspecified whether esophagitis present Essential hypertension Unspecified essential hypertension Anemia, unspecified type Follow-up examination after colorectal surgery- Primary Follow-up examination, following other surgery documented in this encounter [facility] note* Diagnosis Preop examination- Primary Unspecified pre-operative examination Coronary artery disease, unspecified vessel or lesion type, unspecified whether angina present, unspecified whether eyak or transplanted heart [facility] N[facility] - Reported* Type Description Date Surgical History knee replacement-right Surgical History knee arthroscopy-left Surgical History back surgery Surgical History Neck Surgery Surgical History ganglion cyst-left Surgical History heart stent [employer] Other History general Narrative - Reported* Type Description Date Medical History Afib Surgical History knee replacement-right Surgical History knee arthroscopy-left Surgical History back surgery Surgical History Neck Surgery Surgical History ganglion cyst-left Surgical History heart stent Surgical History cardiac ablasion [employer] Other Hospital Discharge instructions No data available for this section [facility] [place] Progress note No data available for this section [facility] [place] Reason for referral (narrative)* Outpatient Procedure (Routine) - New Request Specialty Diagnoses / Procedures Referred By Contac t Referred To [facility] Diagnoses Pre-op evaluation Procedures ECG COMPLETE ECG ROUTINE ECG W/LEAST 12 LDS W/I&R Dolly Nelson APRN.CNP [address] [place] [address] [facility] [address] [place] [address] Referral ID Status Reason Start Date Expiration Date Visits Requested Visits Authorized [id number] New Request Auto-Generat ed Referral 04/30/2024 04/30/2025 1 1 [facility] Summary Purpose Family History No Family History [...] section and content) DATE CREATED AUTHOR 07/22/2020 [facility] DATE CREATED AUTHOR AUTHOR'S ORGANIZ ATION 12/15/2021 [facility] DATE CREATED AUTHOR AUTHOR'S ORGANIZ ATION 08/05/2022 [facility] DATE CREATED AUTHOR AUTHOR'S ORGANIZ ATION 11/06/2022 [facility] DATE CREATED AUTHOR AUTHOR'S ORGANIZ ATION 10/05/2023 [facility] DATE CREATED AUTHOR AUTHOR'S ORGANIZ ATION 04/17/2024 [facility] DATE CREATED AUTHOR AUTHOR'S ORGANIZ ATION 06/11/2024 [facility] DATE CREATED AUTHOR AUTHOR'S ORGANIZ ATION 08/23/2024 [facility] DATE CREATED AUTHOR AUTHOR'S ORGANIZ ATION 01/07/2025 [facility] Care Team (unrecognized sect ion and [...] April 16, 2024 End: April 16, 2024 Fountain Manager Relationship Specialty Start Date End Date Perico Mccabe MD PCP - General Family Medicine 02/14/14 Fountain Manager Relationship Specialty Start Date End Date Perico Mccabe MD PCP - General Family Medicine 02/14/14 Fountain Manager Relationship Specialty Start Date End Date Perico Mccabe MD PCP - General Family Medicine 02/14/14 Fountain Manager Relationship Specialty Start Date End Date Perico Mccabe MD PCP - General Family Medicine 02/14/14 Fountain Manager Relationship Specialty Start Date End Date Perico Mccabe MD PCP - General Family Medicine 02/14/14 Fountain Manager Relationship Specialty Start Date End Date Perico Mccabe MD [address] [place] [address] PCP - General Family Medicine 08/27/23 Team Status: Inactive Member Role Status Dates Perico Mccabe MD Primary Care Provider Active Start: December 06, 2024 End: December 06, 2024 Nelly Arisa DO Attending Provider Active St art: December [...] or prosecute any alcohol or drug abuse patient.[facility] RehabilitationIn the event this information is protected by the Federal Confidentiality of Alcohol and Drug Abuse Patient Records regulations: The Federal rules restrict any use of the information to criminally investigate or prosecute any alcohol or drug abuse patient.[facility] RehabilitationIn the event this information is protected by the Federal Confidentiality of Alcohol and Drug Abuse Patient Records regulations: The Federal rules restrict any use of the information to criminally investigate or prosecute any alcohol or drug abuse patient.[facility] RehabilitationIn the event this information is protected by the Federal Confidentiality of Alcohol and Drug Abuse Patient Records regulations: The Federal rules restrict any use of the information to criminally investigate or prosecute any alcohol or drug abuse patient.[facility] RehabilitationIn the event this information is protected by the Federal Confidentiality of Alcohol and Drug Abuse Patient Records regulations: The Federal rules restrict any use of the information to criminally investigate or prosecute any alcohol or drug abuse patient.[facility] FOR RECORDS PERTAINING TO PATIENTS WHO ARE [...] BE BASED ON THE PRIMARY CLINICAL RECORDS. [facility] [email or web address] [facility]. provides no warranty or guarantee of the accuracy or completeness of information in this document.
== END 2025-05-04 11:56 | disposition home or self-care (01) ==
LOC: CARD 11:55
PROVIDERS: PCP Family Medicine; Visit Provider Family Medicine
DX: I73.9 Peripheral vascular disease, unspecified (principal); M79.606 Pain in leg, unspecified; D64.9 Anemia, unspecified
CPT/HCPCS: 36415; 82728; 83540; 83550; 85025; 86850; 86900; 86901; 93923

== ENCOUNTER 2025-05-20 11:41 | Outpatient (RCR) | payer MEDICARE, SELFPAY ==
[2025-05-04 14:04] LABS: Hematocrit 25.9 % (42.0-54.0); Hemoglobin 7.1 g/dL (14.0-18.0); Immature Granulocytes Abs Auto 0.02 10^3/uL (0.00-0.03); Immature Granulocytes Pct Auto 0.3 % (0.0-0.5); Lymphocytes Absolute Auto 1.2 10^3/uL (1.2-3.8); Mean Corpuscular HGB Conc 27.4 g/dL (29.9-35.2); Mean Corpuscular Hemoglobin 20.3 pg (25.9-34.0); Mean Corpuscular Volume 74.0 fL (80.0-94.0); Platelet Count 363 10^3/uL (150-450); Red Blood Count 3.50 10^6/uL (4.70-6.10); White Blood Count 6.7 10^3/uL (4.0-11.0)
[2025-05-04 15:22] LABS: Iron 19.0 ug/dL (65.0-175.0); Percent Iron Saturation 4.8 %; Total Iron Binding Capacity 393.0 ug/dL (250.0-450.0)
[2025-05-04 15:37] LABS: Ferritin 8.0 ng/mL (26.0-388.0)
[2025-05-05] VITALS (7 sets, daily range): BP systolic 151–200; BP diastolic 73–94; PULSE 58–83; TEMP 36.6–36.8; O2SAT 95–98
[2025-05-05] MEDS: FUROSEMIDE 20 MG/2 ML VIAL IVP (13:40)
[2025-05-06 14:41] LABS: Iron 31.0 ug/dL (65.0-175.0); Percent Iron Saturation 7.6 %; Total Iron Binding Capacity 407.0 ug/dL (250.0-450.0)
[2025-05-06 15:17] LABS: Ferritin 18.0 ng/mL (26.0-388.0)
[2025-05-13 11:55] VITALS: BP 186/91; PULSE 66; TEMP 36.7; O2SAT 96
[2025-05-13] MEDS: FERRIC CARBOXYMALTOSE 750 MG in 0.9 % SODIUM CHLORIDE 250 ML 795 MG IV (12:22)
[2025-05-20 12:02] VITALS: BP 173/88; PULSE 74; TEMP 36.8; O2SAT 98
[2025-05-20] MEDS: FERRIC CARBOXYMALTOSE 750 MG in 0.9 % SODIUM CHLORIDE 250 ML 795 MG IV (12:08)
== END 2025-06-01 08:07 | disposition home or self-care (01) ==
LOC: LAB 11:41
PROVIDERS: PCP Family Medicine; Visit Provider Family Medicine
DX: D64.9 Anemia, unspecified (principal)
CPT/HCPCS: 36415; 36430; 82728; 83540; 83550; 85025; 86850; 86900; 86901; 86923; J1439; J1938; P9016

== ENCOUNTER 2025-08-04 11:48 | Outpatient (OUT) | payer MEDICARE, SELFPAY ==
--- OUTSIDE RECORDS SUMMARY | 2025-08-04 11:51 | XMS_ITS | Clinical Summary ---
Author Organization [employer] [facility] tem Address [id number] [address] [place] [address] Care Team Providers Care Sewer And Cutter Finger Buff Material Name Role Phone Trevor Balderas MD Primary Care Provider [phone] Allergies No known active allergies Medications MedicationSigDispense QuantityRefillsLast FilledStart DateEnd DateStatus spironolactone (ALDACTONE) 25 mg tablet Take 1 tablet (25 mg total) by mouth in the morning.Active atorvastatin (LIPITOR) 80 mg tablet Take 1 tablet (80 mg total) by mouth in the morning.Active lisinopriL (PRINIVIL,ZESTRIL) 20 mg tablet Take 1 tablet (20 mg total) by mouth in the morning.Active apixaban (ELIQUIS) 5 mg tablet Take 1 tablet (5 mg total) by mouth in the morning and 1 tablet (5 mg total) before bedtime.Active pantoprazole (PROTONIX) 40 mg EC tablet Take 1 tablet (40 mg total) by mouth in the morning.Active metoprolol tartrate (LOPRESSOR) 100 mg tablet Take 1 tablet (100 mg total) by mouth in the morning and 1 tablet (100 mg total) before bedtime.Active acetaminophen (TYLENOL) 325 mg tablet Take 2 tablets (650 mg total) by mouth every 6 (six) hours as needed for pain. Active Active Problems No known active problems Family History Medical HistoryRelationNameCommentsHeart diseaseFatherHypertensionFather ParkinsonismFatherHypertensionMotherRelationNameStatusCommentsFatherDeceased MotherAlive Social History Tobacco UseTypesPacks/DayYears UsedDateSmoking Tobacco: NeverSmokeless Tobacco: Never Tobacco Cessation:Counseling Given: Not Answered Alcohol UseStandard Drinks/WeekCommentsNot Currently0 (1 standard drink = 0.6 oz pure alcohol)very rareChildcareAnswerDate FogzsgklCoggqnzqtOjmtzvr23/26/2021 EmploymentAnswerDate LmfoluusKfqngyjizbTqlmyoa99/26/2021urpose - LifeAnswerDate RecordedPurpose and direction in zigqJxqhrjz92/26/2021ex and Gender Information ValueDate RecordedSex Assigned at BirthNot on fileLegal ClqIaqm5204/06/2015 11:57 AM EDTGender IdentityNot on fileSexual OrientationNot on file Last Filed Vital Signs Vital SignReadingTime TakenCommentsBlood Fwtbuhsu696/9309/30/2023 2:55 PM EST Fxaig661009/30/2023 2:55 PM AOFJncvhdxacya25.8 ??C (98.2 ??F)09/16/2023 1:49 PM ESTRespiratory Iwrp44509/30/2023 2:55 PM ESTOxygen Swxduevfhm21%09/30/2023 2:55 PM ESTInhaled Oxygen Concentration--Sgcmws67.6 kg (180 lb)09/16/2023 1:49 PM EST Iqgxnk730.7 cm (5' 8 )09/16/2023 1:49 PM ESTBody Mass Index27.37009/16/2023 1:49 PM EST Plan of Treatment Health MaintenanceDue DateLast DoneCommentsDepression Azjahsouj34/01/1971 DTaP,Tdap and Td Vaccines (1 - Tdap)1978Zoster (Shingles) Vaccine (1 of 2) 2009Fall Risk Klryjmjuj01/01/2024dult BMI Piprltxrq92 Tobacco Xqipabtib11/OVID-19 Vaccine (4 - season) /, 01/12/2021, 12/21/2020Influenza Xoxbyza3505/02/2025RSV ( or age 60+ yrs) (1 - 1-dose 75+ series)2034 Medical Devices ImplantedTypeAreaManufacturerDevice IdentifierShelf Expiration DateModel / Serial / LotClareon Iol Implanted:Qty: 1 on 09/16/2023 [facility] [employer]03/11/2027SY60WF 24.0 / [id number] / NALens Iol Sy60wf.240 Maxim - [id number] - [id number] Implanted:Qty: 1 on 09/30/2023 [facility]03/23/2027SY60WF / [id number] / N/A Insurance Care Teams Team MemberRelationshipSpecialtyStart DateEnd Trevor Balderas MD PCP - GeneralFamily Hoonjflk65/27/23
--- OUTSIDE RECORDS SUMMARY | 2025-08-04 11:51 | XMS_ITS | Encounter Summary ---
Author Organization [facility] Address [address] [place], [place] [id number] Care Team Providers Care Pick Up Worker Name Role Phone Trevor Balderas MD Primary Care Provider [phone] Source Comments In the event this information is protected by the Federal Confidentiality of Alcohol and Drug AbusePatient Records regulations: The Federal rules restrict any use of the information to criminally investigate or prosecute any alcohol or drug abuse patient.[facility] Encounter Details DateTypeDepartmentCare Team (Latest Contact Info)Iupspbqpzei94/26/2025Telephone Colorectal Surgery [address] [place], [place] [id number] [place] [address] [place], [place] [id number] Social History Tobacco UseTypesPacks/DayYears UsedDateSmoking Tobacco: NeverSmokeless Tobacco: NeverAlcohol UseStandard Drinks/WeekCommentsNot Currently0 (1 standard drink = 0.6 oz pure alcohol)[facility] UtilitiesAnswerDate RecordedIn the past 12 months has the electric, gas, oil, or water company threatened to shut off services in your home?No05/14/2024Hunger Vital SignAnswerDate RecordedWithin the past 12 months, you worried that your food would run out before you got the money to buymore. Never true05/14/2024Within the past 12 months, the food you bought just didn't last and you didn't have money to get more.Never true05/14/2024RAPARE - TransportationAnswerDate RecordedIn the past 12 months, has lack of transportation kept you from medical appointments or from getting medications?No 05/14/2024In the past 12 months, has lack of transportation kept you from meetings, work, or from getting things needed for daily living?No05/14/2024 Housing Stability Vital SignAnswerDate RecordedIn the last 12 months, was there a time when you were not able to pay the mortgage or rent on time?No05/14/2024In the past 12 months, how many times have you moved where you were living?1 05/14/2024t any time in the past 12 months, were you homeless or living in a snf (including now)?No05/14/2024rea Deprivation IndexAnswerDate Recorded National Score (1-100), lower number is lower utys529404/28/2024State Score (1- 10), lower number is lower ejgj108ata from: https://www.neighborhoodatlas.medicine.[facility].edu/. Last address used for ktmhjejzs[address]04/28/2024Sex and Gender InformationValueDate RecordedSex Assigned at BirthNot on fileLegal AxeNrsp4702/14/2014 12:16 PM EDTGender Identity Not on fileSexual OrientationNot on filedocumented as of this encounter Functional Status * Are you deaf or do you have serious difficulty hearing?AnswerDate of ZvckyewpcdBudnxtVq67/17/2024 9:57 AM Teri Posada RN * Are you blind or do you have serious difficulty seeing, even when wearing glasses?AnswerDate of EzabvctwfrKjaogsOm02/17/2024 9:57 AM Teri Posada RN * Do you have serious difficulty walking or climbing stairs?AnswerDate of KlvsismyzzBhagdyIp23/17/2024 9:57 AM Teri Posada RN * Do you have difficulty dressing or bathing?AnswerDate of AssessmentAuthorNo 05/18/2024 9:57 AM Teri Posada RN * Because of a physical, mental, or emotional condition, do you have difficulty doing errands alone such as visiting a doctor's office or shopping?AnswerDate of FdwjnzizxoDrkiszNqc76/17/2024 9:57 AM Teri Posada RN documented as of this encounter Mental Status * Because of a physical, mental, or emotional condition, do you have serious difficulty concentrating, remembering, or making decisions?AnswerEntry Date ChmwgeQw34/17/2024 9:57 AM Teri Posada RN documented in this encounter Miscellaneous Notes * Telephone Encounter - Keiko Brown RN - 07/29/2025 8:00 AM EST Records received: Scan on 07/27/2025 11:19 AM by Provider, External, PAKitC: Miscellaneous Correspondence Established patient of Dr Villarreal. Will assist in coordinating follow up appointment. -Colonoscopy 07/07/2025 on page 6-7 on scanned doc -Pathology on pg 8-9 on scanned doc -CT from [facility] 06/22/2025. * Telephone Encounter - Chanelle Turk OCCA - 07/27/2025 4:26 PM EST Referral from Dr. Arias to Dr. Villarreal. DX: colon polyp. Scanned order to [facility] 07/27/25. documented in this encounter Plan of Treatment DateTypeDepartmentCare Team (Latest Contact Info)Smexvgwsfxe57/19/2025 1:00 PM ESTOffice Visit Colorectal Surgery [address] [place] [address] [place] [address] [place], [place] [phone] colon polyp. ??Referral from Dr. Arias.documented as of this encounter Visit Diagnoses Not on filedocumented in this encounter Care Teams Team MemberRelationshipSpecialtyStart DateEnd Date Trevor Balderas MD PCP - GeneralFamily Medicine02/14/14documented as of this encounter
--- OUTSIDE RECORDS SUMMARY | 2025-08-04 11:51 | XMS_ITS | Encounter Summary ---
Author Organization [facility] Address [address] [place], [place] [address] Care Team Providers Care Medicare Sales Representative Name Role Phone Trevor Balderas MD Primary Care Provider [phone] Source Comments In the event this information is protected by the Federal Confidentiality of Alcohol and Drug AbusePatient Records regulations: The Federal rules restrict any use of the information to criminally investigate or prosecute any alcohol or drug abuse patient.[facility] Encounter Details DateTypeDepartmentCare Team (Latest Contact Info)Audkhtjmssa02/02/2025Telephone Colorectal Surgery [address] [place], [place] [phone] [place] [address] [place] [address] Social History Tobacco UseTypesPacks/DayYears UsedDateSmoking Tobacco: NeverSmokeless Tobacco: NeverAlcohol UseStandard Drinks/WeekCommentsNot Currently0 (1 standard drink = 0.6 oz pure alcohol)[facility] UtilitiesAnswerDate RecordedIn the past 12 months has [...] or living in a group home (including now)?No05/14/2024rea Deprivation IndexAnswerDate Recorded National Score (1-100), lower number is lower zvqw912804/28/2024State Score (1- 10), lower number is lower xpqf408ata from: https://www.neighborhoodatlas.medicine.[facility].edu/. Last address used for [address]04/28/2024Sex and Gender InformationValueDate RecordedSex Assigned at BirthNot on fileLegal JrxOjtq1802/14/2014 12:16 PM EDTGender Identity Not on fileSexual OrientationNot on filedocumented as of this encounter Functional Status * Are you deaf or do you have serious difficulty hearing?AnswerDate of GralwwjovhLazxmyXe42/17/2024 9:57 AM Teri Posada RN * Are you blind or do you have serious difficulty seeing, even when wearing glasses?AnswerDate of TwqkrgbyywQuwmdyPm51/17/2024 9:57 AM Teri Posada RN * Do you have serious difficulty walking or climbing stairs?AnswerDate of GmjphlzmwtVmtslzLq38/17/2024 9:57 AM Teri Posada RN * Do you have difficulty dressing or bathing?AnswerDate of AssessmentAuthorNo 05/18/2024 9:57 AM Teri Posada RN * Because of a physical, mental, or emotional condition, do you have difficulty doing errands alone such as visiting a doctor's office or shopping?AnswerDate of YnwlcrupohXurhsnMim36/17/2024 9:57 AM Teri Posada RN documented as of this encounter Mental Status * Because of a physical, mental, or emotional condition, do you have serious difficulty concentrating, remembering, or making decisions?AnswerEntry Date UgaojsFm25/17/2024 9:57 AM Teri Posada RN documented in this encounter Miscellaneous Notes * Telephone Encounter - Kaitlin Montoya RN - 08/02/2025 9:30 AM EST Called patient and left voice message telling him we received documentation from Dr. Arias that the patient needs to be seen again by Dr. Villarreal for a colon polyp. Asked him to please call our office or respond to the My Chart message I sent so we may get him scheduled to see Dr. Villarreal. documented in this encounter Plan of Treatment DateTypeDepartmentCare Team (Latest Contact Info)Usxysefzgvj31/19/2025 1:00 PM ESTOffice Visit Colorectal Surgery [address] [place], [place] [phone] [place] [address] [place] [address] colon polyp. ??Referral from Dr. Arias.documented as of this encounter Visit Diagnoses Not on filedocumented in this encounter Care Teams Team MemberRelationshipSpecialtyStart DateEnd Date Trevor Balderas MD PCP - GeneralFamily Medicine02/14/14documented as of this encounter
--- OUTSIDE RECORDS SUMMARY | 2025-08-04 11:52 | XMS_ITS | Clinical Summary ---
Author Organization [facility] Address [address] [place] [address] Care Team Providers Care Gasoline Tractor Operator Name Role Phone Trevor Balderas MD Primary Care Provider [phone] Enoch Robles MD Unavailable [phone] Allergies No known active allergies Medications MedicationSigDispense QuantityRefillsLast FilledStart DateEnd DateStatus aspirin 81 mg EC tablet Take 81 mg by mouth in the morning.Active atorvastatin (Lipitor) 80 mg tablet Indications:Coronary artery disease due to lipid rich plaqueTAKE 1 TABLET BY MOUTH IN THE MORNING 90 tablet 3035Active pantoprazole (ProtoNix) 40 mg EC tablet Indications:Gastroesophageal reflux disease without esophagitisTAKE 1 TABLET BY MOUTH ONCE DAILY DIRECTED 90 tablet 3045Active carvedilol (Coreg) 25 mg tablet Indications:Essential hypertensionTAKE 1 TABLET BY MOUTH WITH MORNING AND EVENING MEALS 180 tablet 1075Active Eliquis 5 mg tablet Indications:Paroxysmal atrial fibrillation (CMS/HCC)TAKE 1 TABLET BY MOUTH IN THE MORNING AND AT BEDTIME 180 tablet 3095Active sildenafil (Revatio) 20 mg tablet Take 20 mg by mouth if needed.5Active lisinopril 40 mg tablet Indications:Essential hypertensionTake 1 tablet (40 mg) by mouth in the morning. 90 tablet 5Active lisinopril 20 mg tablet Indications:Essential hypertensionTAKE 1 TABLET BY MOUTH IN THE MORNING 90 tablet Discontinued(Reorder) Active Problems ProblemNoted DateDiagnosed DateCongenital malrotation of wzvotppxt92/17/2025 Diaphragmatic jqxhyv5507/18/20251531Xeeukje51/17/2025Ganglion cyst of dorsum of left wrist07/18/2025Hypertensive heart gcnyvls8107/18/2025Leg pain07/18/2025Overweight 07/18/2025Shoulder impingement fvfvkupr55/17/2025Stricture of small intestine 07/18/2025Unspecified age-related hnufeduq39/17/2025Weight loss, non-intentional 07/18/2025GERD (gastroesophageal reflux disease)01/04/20256001Fiwkue03/30/2024 Antiplatelet or antithrombotic long-term use02/18/2023Nonrheumatic mitral valve zuucogpkpnrqz23/20/2023 Assessment & Plan (11/18/2022 1:10 PM EDT): - per echo 10/2022 mild to moderate regurgitation Nonrheumatic tricuspid valve mgqhirljjqmjf22/20/2023 Assessment & Plan (11/18/2022 1:10 PM EDT): - mild regurgitation per recent echo 10/2022 Ajfxirgpoebroh86/24/2023isorder of intervertebral disc of cervical spine 09/24/20224923Alpcwza51/24/2023Iron deficiency essddl4309/24/2022Long term current use of anticoagulant hkhtrfr9209/24/20226117Lygkfn70/24/8535Ycreslbmuqezlu97/24/2023 Periumbilical abdominal pain09/24/2022Right lower quadrant abdominal pain 09/24/2022Right upper quadrant abdominal pain09/24/2022rohn's exgzqfx4207/04/2022 Paroxysmal atrial fibrillation with rapid ventricular tzugfsis74/18/2022ortic valve kgrgecqqjznqu38/15/2021 Assessment & Plan (11/18/2022 1:09 PM EDT): - history of mild regurgitation, none noted on recent echo 10/2022 Erectile ycsltkocldm33/14/2021eyronie's rstjzip2002/12/2021oronary lgnkihytjtwppji17/14/2021ssential zsowgsfvxnkh07/14/2021 Assessment & Plan (11/18/2022 1:10 PM EDT): Hypertension is stable today - continue medication Chest pain01/22/2021Heart valve diseaseHypertensionAtrial fibrillation Assessment & Plan (11/18/2022 1:09 PM EDT): ONM2CJ7-DEEl 2 ( hypertension, CAD) - continue Eliquis [...] EDT): - continue Lipitor 80 mg Encounters DateTypeDepartmentCare LmumAcmnfochrzj90/18/2025 1:20 PM ESTFollow-Up [place] [address] [place] [phone] Winnie Russell CNP Essential hypertension (Primary Dx); Nonrheumatic mitral valve regurgitation; Mixed hyperlipidemia; Paroxysmal atrial fibrillation (CMS/HCC); Coronary artery disease involving [place] coronary artery of [place] heart without angina pectoris; Other hiedojkkgk36/08/2025Ref[facility] [address] [place] [address] Lindsey Pagan MD Paroxysmal atrial fibrillation (CMS/HCC) (Primary Dx)from Last 3 Months Immunizations ImmunizationAdministration DatesNext DueUnspecified Sars-Cov-2 Vaccination 08/27/2021,01/12/2021,12/21/2020 Family History Medical HistoryRelationNameCommentsCoronary artery diseaseFatherAtrial fibrillationMotherheart valve diseaseMotherpulmonary hypertensionMotherRelation NameStatusCommentsFatherMother Social History Tobacco UseTypesPacks/DayYears UsedDateSmoking Tobacco: NeverSmokeless Tobacco: Never Tobacco Cessation:Counseling Given: Not Answered Alcohol UseStandard Drinks/WeekCommentsYes0 (1 standard drink = 0.6 oz pure alcohol)occasionalUT Safety & EnvironmentAnswerDate RecordedFear of Current or Ex-PartnerNot on file10/23/2023Emotionally AbusedNot on file10/23/2023hysically AbusedNot on 10/23/2023Sexually AbusedNot on file10/23/2023hysically or Sexually AbusedNot on file10/23/2023Sex and Gender InformationValueDate Recorded Sex Assigned at RfnjtXika66/02/2025 10:38 AM EDTLegal WbfKcbe5302/28/2022 12:36 AM EDTGender VqmzgpfeZzqc61/02/2025 10:38 AM EDTSexual OrientationHeterosexual or Pxhyreeu34/02/2025 10:38 AM EDT Last Filed Vital Signs Vital SignReadingTime TakenCommentsBlood Ymzigmvk077/9011 1:49 PM EST Hazll009007/19/2025 1:10 PM NLEIsyljvzzfxw12.2 ??C (97.2 ??F)11/21/2022 12:06 PM EDTRespiratory Avam300801/04/2025 1:49 PM EDTOxygen Xpfadzzilb93%07/19/2025 1:10 PM ESTInhaled Oxygen Concentration--Jouwfk38.5 kg (204 lb)07/19/2025 1:10 PM EST Yebwkd996.7 cm (5' 8 )07/19/2025 1:10 PM ESTBody Mass Index31.02109/18/2024 1:10 PM EST Plan of Treatment DateTypeDepartmentCare Team (Latest Contact Info)Drdvsqdpkcq21/20/2026 1:00 PM ESTOffice [facility] [address] [place] [address] Winnie Russell, ASSISTANT AT SURGERY [address] [facility] [place] [address] Health MaintenanceDue DateLast DoneCommentsCT Nhsadgtwphmr1959Colonoscopy 1959Colorectal Cancer Xkqomales1959FIT-DNA1959FIT1959 FOBT1959Medicare Annual Wellness (AWV)03/01/19597025Ypfavtpslldlr1959 Depression Zzqxzokso12/01/1971Pneumococcal Vaccine: 50+ Years (1 of 2 - PCV) 1978Adult Wwzflan4503/01/1981Zoster Vaccines (1 of 2)2009Fall Risk Mucjamfmd43/01/2024COVID-19 Vaccine (2024- season), 08/27/2021, 01/12/2021, Additional history existsInfluenza Vaccine (#1) 05/02/2025HIB VaccinesAged OutNo longer eligible based on patient's age to complete this topicHPV VaccinesAged OutNo longer eligible based on patient's age to complete this topicIPV VaccinesAged OutNo longer eligible based on patient's age to complete this topicMeningococcal B VaccineAged OutNo longer eligible based on patient's age to complete this topicMeningococcal VaccineAged OutNo longer eligible based on patient's age to complete this topicRotavirus Vaccines Aged OutNo longer eligible based on patient's age to complete this topic Insurance Advance Directives * Full Code (Latest Code Status on File) Date ActivatedDate InactivatedComments11/21/2022 12:21 PM3/ 6:32 PM Care Teams Team MemberRelationshipSpecialtyStart DateEnd Trevor Balderas MD [address] [facility] [address] [address] PCP - General05/22/22 Enoch Robles MD [address] [place] [address] [address] Referring BkbydprtpAxipjdvoharzzlyf51/12/22
--- OUTSIDE RECORDS SUMMARY | 2025-08-04 11:52 | XMS_ITS | Encounter Summary ---
Author Organization [facility] Address [address] [place], [place] [id number] Care Team Providers Care Toaster Element Repairer Name Role Phone Trevor Balderas MD Primary Care Provider [phone] Source Comments In the event this information is protected by the Federal Confidentiality of Alcohol and Drug AbusePatient Records regulations: The Federal rules restrict any use of the information to criminally investigate or prosecute any alcohol or drug abuse patient.[facility] Encounter Details DateTypeDepartmentCare Team (Latest Contact Info)Xwkjafpgwmd02/02/2025 Patient Msg Colorectal Surgery [address] [place] [phone] Provider, Ccf appt with Dr. Villarreal Social History Tobacco UseTypesPacks/DayYears UsedDateSmoking Tobacco: NeverSmokeless Tobacco: NeverAlcohol UseStandard Drinks/WeekCommentsNot Currently0 (1 standard drink = 0.6 oz pure alcohol)[facility] UtilitiesAnswerDate RecordedIn the past 12 months has the [employer], gas, oil, or water [employer] threatened to shut off services in your home?No05/14/2024Hunger Vital SignAnswerDate RecordedWithin the past 12 months, you worried that your food would run out before you got the money to buymore. Never true09/13/2024Within the past 12 months, the food you [...] were you homeless or living in a fci (including now)?No05/14/2024rea Deprivation IndexAnswerDate Recorded National Score (1-100), lower number is lower koai214804/28/2024State Score (1- 10), lower number is lower qwhd568ata from: https://www.neighborhoodatlas.medicine.[facility].edu/. Last address used for ria[address]04/28/[address]24Sex and Gender InformationValueDate RecordedSex Assigned at BirthNot on fileLegal IfiXjwf3902/14/2014 12:16 PM EDTGender Identity Not on fileSexual OrientationNot on filedocumented as of this encounter Functional Status * Are you deaf or do you have serious difficulty hearing?AnswerDate of UknepathkpCbdgtpHh50/17/2024 9:57 AM Teri Posada RN * Are you blind or do you have serious difficulty seeing, even when wearing glasses?AnswerDate of SplxaaufdkTtrwvrFk47/17/2024 9:57 AM Teri Posada RN * Do you have serious difficulty walking or climbing stairs?AnswerDate of GfhdjpmiueDxfshaKl21/17/2024 9:57 AM Teri Posada RN * Do you have difficulty dressing or bathing?AnswerDate of AssessmentAuthorNo 05/18/2024 9:57 AM Teri Posada RN * Because of a physical, mental, or emotional condition, do you have difficulty doing errands alone such as visiting a doctor's office or shopping?AnswerDate of EpvdrncikwLuujaoMyh56/17/2024 9:57 AM Teri Posada RN documented as of this encounter Mental Status * Because of a physical, mental, or emotional condition, do you have serious difficulty concentrating, remembering, or making decisions?AnswerEntry Date HglcnwCt81/17/2024 9:57 AM Teri Posada RN documented in this encounter Plan of Treatment DateTypeDepartmentCare Team (Latest Contact Info)Lsnuafsdvvs62/19/2025 1:00 PM ESTOffice Visit Colorectal Surgery [address] [place] [address], [place] [phone] [place] [address] [place] [address] colon polyp. ??Referral from Dr. Arias.documented as of this encounter Visit Diagnoses Not on filedocumented in this encounter Care Teams Team MemberRelationshipSpecialtyStart DateEnd Date Trevor Balderas MD PCP - GeneralFamily Medicine02/14/14documented as of this encounter
--- OUTSIDE RECORDS SUMMARY | 2025-08-04 11:52 | XMS_ITS | Clinical Summary ---
Author Organization [facility] Address [address] [place], [place] [address] Care Team Providers Care Test Clerk Name Role Phone Trevor Balderas MD Primary Care Provider [phone] Allergies No known active allergies Medications MedicationSigDispense QuantityRefillsLast FilledStart DateEnd DateStatus atorvastatin (LIPITOR) 80 mg tablet atorvastatin 80 mg tablet TAKE 1 TABLET BY MOUTH DAILYActive sildenafil (VIAGRA) 100 mg tablet 01/12/2021ctive aspirin 81 mg cap Take 81 mg by mouth once daily.Active adalimumab (HUMIRA,CF, PEN JAJCBB-DL-JM) 80 mg/0.8 mL pen kit Inject 80 mg subcutaneously every 2 weeks.Active lisinopril (ZESTRIL) 20 mg tablet Take 20 mg by mouth once daily.06/02/2023ctive pantoprazole DR (PROTONIX) 40 mg tablet Take 40 mg by mouth once daily.04/23/2021ctive apixaban (ELIQUIS) 5 mg tab(s) Take 1 tablet by mouth two times a day. OK to resume on Active acetaminophen (TYLENOL) 500 mg tablet Take 2 tablets by mouth every 6 hours. 50 tablet 05/18/2024 12:26 PM EDT05/18/2024ctive Bacillus coagulan-calcium carb (DIGESTIVE ADVANTAGE PROBIOTIC) 2 billion cell- 140 mg cap Take 1 capsule by mouth once daily. 30 capsule 05/18/2024 12:26 PM EDT05/19/2024ctive methocarbamol (ROBAXIN) 750 mg tablet Take 1 tablet by mouth three times a day as needed for muscle spasms. 15 tablet 05/18/2024 12:26 PM EDT05/18/2024ctive Active Problems ProblemNoted DateDiagnosed IdieTfzqdd24/30/2024 Assessment & Plan (05/07/2024 10:08 AM EDT): Assessment: Chronically low > 1 year Current Hgb 7.7 Notified surgeon- okay to proceed T&S Done Patient is asymptomatic Denies dizziness, lightheadedness, no signs of active bleeding Follows with PCP Atrial ywdlhrbdmlbi34/30/2024 Overview (04/30/2024): Last Assessment & Plan: IJF1AO1-ZVGi 2 ( hypertension, CAD) - continue Eliquis [...] or recurrence Follows with Dr. Pagan @ [place] Atherosclerosis of coronary xzhudo3504/30/2024 Overview (04/30/2024): Last Assessment & Plan: Coronary [...] stress test 06/17/2023 Follows with Cardiology at [facility] Uukzjtqlddwypf48/30/2024 Overview (04/30/2024): Last Assessment & Plan: - continue Lipitor 80 mg Assessment & Plan (04/30/2024 1:47 PM EDT): Assessment: On Statin Follows with PCP Crohn's fluxmps6707/04/2022eyronie's elohbut5002/12/2021D (erectile dysfunction) of organic eoanvd6802/12/2021ssential ymkdawcpzqqo63/14/2021 Overview (04/30/2024): Last Assessment & Plan: Hypertension is stable today - continue medication Assessment & Plan (04/30/2024 2:54 PM EDT): Assessment: Stable on medication 145/75 in office today Follows with PCP GERD (gastroesophageal reflux disease) Assessment & Plan (04/30/2024 2:52 PM EDT): Assessment: Controlled with PPI Resolved Problems ProblemNoted DateDiagnosed DateResolved DateComplication due to Crohn's disease / Encounters DateTypeDepartmentCare RrapUronafncsas24/02/2025 Patient Msg Colorectal Surgery [address] [facility] [address] [place] [address] Provider, Ccf appt with Dr. Villarreal08/02/2025Telephone Colorectal Surgery [address] [place] [phone] Marquez Villarreal MD 07/27/2025Telephone Colorectal Surgery [address] [facility] [address] [place] [phone] Marquez Villarreal MD from Last 3 Months Family History Medical HistoryRelationCommentsAnesthesia ProblemsNo Family History Social History Tobacco UseTypesPacks/DayYears UsedDateSmoking Tobacco: NeverSmokeless Tobacco: Never Tobacco Cessation:Counseling Given: Not Answered Alcohol UseStandard Drinks/WeekCommentsNot Currently0 (1 standard drink = 0.6 oz pure alcohol)[facility] UtilitiesAnswerDate RecordedIn the past 12 months has the [employer], gas, oil, or water [employer] threatened to shut off services in your [...] homeless or living in a retirement (including now)?No05/14/2024rea Deprivation IndexAnswerDate Recorded National Score (1-100), lower number is lower bnjl325504/28/2024State Score (1- 10), lower number is lower omzn34504/28/2024ata from: https://www.neighborhoodatlas.medicine.[facility].edu/. Last address used for ol[address]04/28/[address]24Sex and Gender InformationValueDate RecordedSex Assigned at BirthNot on fileLegal McmFsme0002/14/2014 12:16 PM EDTGender Identity Not on fileSexual OrientationNot on file Last Filed Vital Signs Vital SignReadingTime TakenCommentsBlood Onwlgevp472/7108/20/2024 10:37 AM EST Qzvqz263708/20/2024 10:37 AM YZPCmcsvtzuujz48.3 ??C (97.3 ??F)08/20/2024 10:37 AM ESTRespiratory Nrcd518705/18/2024 7:08 AM EDTOxygen Geebzkkvua53%08/20/2024 10:37 AM ESTInhaled Oxygen Concentration--Kbstmy11.4 kg (175 lb)05/13/2024 1:39 PM EDT Tktbhl871.7 cm (5' 8 )05/13/2024 1:39 PM EDTBody Mass Index26.6109 1:39 PM EDT Plan of Treatment DateTypeDepartmentCare Team (Latest Contact Info)Symbaibuoda97/19/2025 1:00 PM ESTOffice Visit Colorectal Surgery [address] [place] [address] [place] [address] [place], [place] [phone] colon polyp. ??Referral from Dr. Arias.Health MaintenanceDue DateLast DoneComments Annual PCP Team Chronic Disease Visit1977Anxiety Pgoosaffv94/01/1977 Depression Qyqxfjydk57/01/1977Hepatitis C Evezntfoi77/01/1977LDL Cholesterol 1977DTaP,Tdap,Td Vaccine (1 - Tdap)1978Pneumococcal Vaccine: 50+ (1 of 2 - PCV)1978Shingrix Vaccine (1 of 2)1978Lipid Screening 1994CT Emmljrxyvxij62/01/2004Cologuard (FIT-DNA)2004Colonoscopy 2004Colorectal Cancer Oijstkmur58/01/2004Fecal Occult Blood2004 Prostate Cancer Screening Xgvzlxrlgo64/01/5238Hosgduwtbgvsh38/01/2004RSV Vaccine (1 - Risk 60-74 years 1-dose series)2019Advance Directive Discussion 09/01/2024Medicare Advantage Annual Wellness Visit09/01/2024ovid-19 Vaccine (2024- season), 01/12/2021, 12/21/2020Influenza Vaccine (#1)2025Diabetes Zqpfmfcdu78/, 05/14/2024, 04/30/2024 Procedures Procedure NamePriorityDate/TimeAssociated DiagnosisCommentsXR OUTSIDE CD DICOM VYNQOX7406/22/2025 CT OUTSIDE CD DICOM UCRNKW8406/22/2025 BASIC METABOLIC GEWOEGcxfhky99/14/2024 5:44 AM EDT from Last 3 Months or Most Recently Relevant to Health Maintenance Results * OT-CT enterography IMPORT (06/22/2025)Anatomical RegionLateralityModalityOther Specimen (Source)Anatomical Location / LateralityCollection Method / Volume Collection TimeReceived Time06/22/2025 Narrative 08/04/2025 12:32 AM EST Images were obtained outside of [facility] Procedure Note Provider, [facility] - 08/04/2025 Images were obtained outside of [facility] Authorizing ProviderResult TypeResult StatusCcf ProviderRADIOLOGYFinal Result * SR-CT enterography IMPORT (06/22/2025)Anatomical RegionLateralityModalityOther Specimen (Source)Anatomical Location / LateralityCollection Method / Volume Collection TimeReceived Time06/22/2025 Narrative 07/30/2025 9:55 AM EST Images were obtained outside of [facility] Procedure Note Provider, [facility] - 07/30/2025 Images were obtained outside of [facility] Authorizing ProviderResult TypeResult StatusCcf ProviderRADIOLOGYFinal Result * (ABNORMAL) BASIC METABOLIC PANEL (05/15/2024 5:44 AM EDT)ComponentValueRef RangeTest MethodAnalysis TimePerformed AtPathologist SsahgvreaFdhzmbp423(H)74 - 99 mg/dL05/15/2024 7:15 AM EDTFAIRVIEW LABORATORYComment: The [place] Diabetes Association (ADA) provides guidance for cutoff values for fasting glucose andrandom glucose. The ADA defines fasting as no [...] Standards of Medical Care in Diabetes 2016, [place] Diabetes Association. Diabetes Care. 2016.39(Suppl 1). ZFS848 - 24 mg/dL05/15/2024 7:15 AM EDTFAIRVIEW LABORATORYCreatinine0.870.73 - 1.22 mg/dL05/15/2024 7:15 AM EDTFAIRVIEW VJJJOHNKACTfpavg508573 - 144 mmol/L 05/15/2024 7:15 AM EDTFAIRVIEW LABORATORYPotassium4.03.7 - 5.1 mmol/L05/15/2024 7:15 AM EDTFAIRVIEW YHGMRZAPTEHhrszcjy25640 - 107 mmol/L05/15/2024 7:15 AM EDT [facility] KIIBHUOLEAOL49898 - 30 mmol/L05/15/2024 7:15 AM EDTFAIRVIEW LABORATORY Anion Gap88 - 15 mmol/L05/15/2024 7:15 AM EDTFAIRVIEW LABORATORYCalcium, Total 8.3(L)8.5 - 10.2 mg/dL05/15/2024 7:15 AM EDTFAIRVIEW LABORATORYEstimated Glomerular Filtration Rate96>=60 mL/min/1.73m 05/15/2024 7:15 AM EDTFAIRVIEW LABORATORYComment:Estimated Glomerular Filtration Rate (eGFR) is calculated using the 2020 CKD-EPI creatinine equation. This equation utilizes serum creatinine, sex, and age as parameters. The creatinine assay has traceable calibration to isotope dilution-mass spectrometry. Refer to KDIGO guidelines for clinical interpretation. In patients with unstable renal function, e.g. those with acute kidney injury, the eGFRmay not accurately reflect actual GFR.Specimen (Source)Anatomical Location / LateralityCollection Method / VolumeCollection TimeReceived TimeBloodBLOOD SPECIMEN / Unknown Venipuncture / Crpntno6605/15/2024 5:44 AM EDT05/15/2024 6:35 AM EDT Narrative Authorizing ProviderResult TypeResult StatusDavirae Villarreal MDLABORATORYFinal Result Performing OrganizationAddressCity/State/ZIP CodePhone Number [facility] [address] [place] [address], from Last 3 Months or Most Recently Relevant to Health Maintenance Insurance MemberSubscriberPlan / Payer (Effective 2024-Present)Name:Terrance Norman Michael Relation to Subscriber:SelfName:Terrance Norman Payer ID:[id number] (NAIC) Type:PP Address: [place] [phone] Care Teams Team MemberRelationshipSpecialtyStart DateEnd Date Trevor Balderas MD PCP - GeneralFamily Medicine02/14/14
--- OUTSIDE RECORDS SUMMARY | 2025-08-04 11:52 | XMS_ITS | Clinical Summary ---
Author Organization [facility] Address [address] [place] [address] Care Team Providers Care Dietist Name Role Phone Unavailable Primary Care Provider Unavailabl e Social History Tobacco UseTypesPacks/DayYears UsedDateSmoking Tobacco: Never AssessedSex and Gender InformationValueDate RecordedSex Assigned at BirthNot on fileLegal Sex Male11/13/2022 7:03 PM EDTGender IdentityNot on fileSexual OrientationNot on file Last Filed Vital Signs Vital SignReadingTime TakenCommentsBlood Pressure--Pulse--Temperature-- Respiratory Rate--Oxygen Saturation--Inhaled Oxygen Concentration--Ktupte85.5 kg (184 lb)09/12/2021 12:00 PM JUKOmtpfd238.7 cm (5' 8 )09/12/2021 12:00 PM ESTBody Mass Index27.98009/12/2021 12:00 PM EST Plan of Treatment Not on file Insurance
--- OUTSIDE RECORDS SUMMARY | 2025-08-04 11:53 | XMS_ITS | Clinical Summary ---
Author Organization [facility] Address [address] [place] [address] Phone Care Team Providers Care Sample Steamer Name Role Phone Trevor Balderas MD Primary Care Provider [phone] Social History Tobacco UseTypesPacks/DayYears UsedDateSmoking Tobacco: Never AssessedSex and Gender InformationValueDate RecordedSex Assigned at BirthNot on fileLegal Sex Male07/26/2022 2:24 PM ESTGender IdentityNot on fileSexual OrientationNot on file Last Filed Vital Signs Vital SignReadingTime TakenCommentsBlood Rlhtwyus418/80109/19/2019 12:38 PM EST Zkqxu320607/20/2020 12:38 PM ESTTemperature2.8 ??C (37 ??F)07/20/2020 12:38 PM EST Respiratory Ypol141509/19/2019 12:38 PM ESTOxygen Zczdsdrrib72%07/20/2020 12:38 PM ESTInhaled Oxygen Concentration--Weight--Height--Body Mass Index-- Plan of Treatment Not on file Care Teams Team MemberRelationshipSpecialtyStart DateEnd Trevor Balderas MD [address] [facility] [place] [address] PCP - Dxyijxg35/19/20
--- OUTSIDE RECORDS SUMMARY | 2025-08-04 11:53 | XMS_ITS | Patient Health Record ---
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 Name Role Phone Thanh Mccabe Primary Care Provider Allergies No Known Allergies Results Component Value Reference Range Notes BNP Reviewed date:05/02/2025 02:43:54 PM Interpretation: Performing Lab: Notes/Report: [facility] , NT Pro B Type Natriuretic Pept 415.0 <=900.0 pg /mL Performing Lab:see note - [facility] LBPROF CHEM 8 (BAS METB) Reviewed date:12/07/2024 03:45:04 PM Interpretation: Performing Lab: Notes/Report: [facility] ,Mckeig013412-693 mmol/LPotassium3.43.5-5.1 mmol/EShjruebw25021-657 mmol/LCarbon Jccoscm99.221.0-32.0 mmol/LAnion Gap11.1Wseubdm34494-585 mg/dLBlood Urea Zihtvdkt31.07.0-18.0 mg/dLCreatinine1.260.70-1.30 mg/dLEstimated GFR ( Rosemary>60>=60 mL/min/1.73m 2Estimated GFR (Non- Ame57>=60 mL/min/1.73m 2 BUN Creatinine Ratio9.8Pdzgmib4.48.5-10.1 mg/dLPerforming Lab:see note - [facility] LBCBC AUTO DIFF Reviewed date:05/02/2025 02:43:54 PM Interpretation: Performing Lab: Notes/Report: [facility] ,White Blood Count6.44.0-11.0 10 3/uLRed Blood Count3.474.70-6.10 10 6/uL Hemoglobin7.114.0-18.0 g/uPCkjudfparw82.742.0-54.0 %Mean Corpuscular Dxctxl34.1 80.0-94.0 fLMean Corpuscular Sqbhcllxyp82.525.9-34.0 pgMean Corpuscular HGB Conc 27.629.9-35.2 g/dLRed Cell Distribution Width18.111.0-15.0 %Platelet Ghdxs331 150-450 10 3/uLMean Platelet Volume9.09.5-13.5 fLNeutrophils Percent Auto69.4 43.0-75.0 %Lymphocytes Percent Auto17.520.5-60.0 %Monocytes Percent Auto8.31.7- 12.0 %Eosinophils Percent Auto3.60.9-7.0 %Basophils Percent Auto0.90.2-2.0 % Immature Granulocytes Pct Auto0.30.0-0.5 %Neutrophils Absolute Auto4.41.4-6.5 10 3/uLLymphocytes Absolute Auto1.11.2-3.8 10 3/uLMonocytes Absolute Auto0.50.3-0.8 10 3/uLEosinophils Absolute Auto0.20.0-0.7 10 3/uLBasophils Absolute Auto0.10.0- 0.1 10 3/uLImmature Granulocytes Abs Auto0.020.00-0.03 10 3/uLPerforming Lab:see noteML - [facility] LBGLYCOHEMOGLOBIN A1C Reviewed date:05/02/2025 02:43:54 PM Interpretation: Performing Lab: Notes/Report: [facility] ,Glycohemoglobin A1C5.84.5-6.2 % ADA RECOMMENDED LIMIT 4.0 - 6.0 ADA THERAPEUTIC TARGET < 7.0 ACTION SUGGESTED > 7.0 Estimated Average Eroypdc130Drjsegulxv Lab:see noteML - [facility] LB INSULIN Reviewed date:05/04/2025 12:41:24 PM Interpretation: Performing Lab: Notes/Report: [facility] ,Aylhygx83.32.6-24.9 uIU/mL [address] [place], [place] [id number] Vp Lab: Chalo Levine PhD, Phone: [phone] Performed at: [facility] LabFormerly [facility]forming [facility] LBPROF 14(COMP METB) Reviewed date:05/02/2025 02:43:54 PM Interpretation: Performing Lab: Notes/Report: [facility] ,Epaven400475-425 mmol/LPotassium3.93.5-5.1 mmol/RYjmqodda21352-221 mmol/LCarbon Mfjcgvx56.921.0-32.0 mmol/LAnion Gap13.2Kclhdxq74070-475 mg/dLBlood Urea Xnjwvlog48.07.0-18.0 mg/dLCreatinine1.080.70-1.30 mg/dLEstimated GFR ( Rosemary>60>=60 mL/min/1.73m 2Estimated GFR (Non- Lori>60>=60 mL/min/1.73m 2BUN Creatinine Ratio10.4Tlpetor6.38.5-10.1 mg/dLBilirubin Total1.30.2-1.0 mg/dL Aspartate Amino Wzgirncstis7319-11 U/LAlanine Qraqiowfpyrztjfr6675-35 U/L Alkaline Qqliuatzhsh9672-082 U/LTotal Protein7.46.4-8.2 g/dLAlbumin Level3.23.4- 5.0 g/dLGlobulin4.2Albumin Globulin Ratio0.8Performing Lab:see note - [facility] LBPSA SCREENING Reviewed date:05/02/2025 02:43:54 PM Interpretation: Performing Lab: Notes/Report: [facility] ,Prostate Specific Antigen Scrn0.98<=4.00 ng/mLPerforming Lab:see note - [facility] LBT4 Reviewed date:05/02/2025 02:43:54 PM Interpretation: Performing Lab: Notes/Report: [facility] ,T4 Thyroxine4.704.50-12.10 ug/dLPerforming Lab:see note - [facility] LBTSH Reviewed date:05/02/2025 02:43:54 PM Interpretation: Performing Lab: Notes/Report: [facility] ,Thyroid Stimulating Hormone1.8770.358-3.740 uIU/mLPerforming Lab:see noteML - [facility] LBTroponin I High Sensitivity Reviewed date:05/02/2025 02:43:54 PM Interpretation: Performing Lab: Notes/Report: [facility] ,Troponin I High Bzesxlzyrlt94.44.0-76.1 pg/mL USED IN ISOLATION BUT SHOULD BE INTERPRETED IN CONJUNCTION DIAGNOSIS. HAS BEEN CONFIRMED THE DECISION THRESHOLD FOR PR WITH OTHER DIAGNOSTIC AND CLINICAL INFORMATION. REFERENCE LIMIT (URL) OF TROPONIN, DEFINED THE 99TH PERCENTILE OF cTnI DISTRIBUTION IN A REFERENCE POPULATION, NOTE: HIGH-SENSITIVITY TROPONIN ASSAY IS NOT INTENDED TO BE CUT-OFF POINTS HAVE BEEN ESTABLISHED BASED ON THE FOURTH 99TH PERCENTILE = 76.2 PG/ML UNIVERSAL DEFINITION OF MYOCARDIAL INFARCTION. THE UPPER Performing Lab:see noteML - [facility] LBCBC AUTO DIFF Reviewed date:05/04/2025 06:19:43 PM Interpretation: Performing Lab: Notes/Report: [facility] ,White Blood Count6.74.0-11.0 10 3/uLRed Blood Count3.504.70-6.10 10 6/uL Hemoglobin7.114.0-18.0 g/aBDzmvmxztmy94.942.0-54.0 %Mean Corpuscular Agmvcd47.0 80.0-94.0 fLMean Corpuscular Mzidkpvmmk92.325.9-34.0 pgMean Corpuscular HGB Conc 27.429.9-35.2 g/dLRed Cell Distribution Width18.611.0-15.0 %Platelet Neiac910 150-450 10 3/uLMean Platelet Volume9.69.5-13.5 fLNeutrophils Percent Auto68.1 43.0-75.0 %Lymphocytes Percent Auto18.620.5-60.0 %Monocytes Percent Auto8.41.7- 12.0 %Eosinophils Percent Auto3.50.9-7.0 %Basophils Percent Auto1.10.2-2.0 % Immature Granulocytes Pct Auto0.30.0-0.5 %Neutrophils Absolute Auto4.51.4-6.5 10 3/uLLymphocytes Absolute Auto1.21.2-3.8 10 3/uLMonocytes Absolute Auto0.60.3-0.8 10 3/uLEosinophils Absolute Auto0.20.0-0.7 10 3/uLBasophils Absolute Auto0.10.0- 0.1 10 3/uLImmature Granulocytes Abs Auto0.020.00-0.03 10 3/uLPerforming Lab:[facility] LBFERRITIN Reviewed date:05/04/2025 06:19:43 PM Interpretation: Performing Lab: Notes/Report: [facility] ,Ferritin8.026.0-388.0 ng/mLPerforming Lab:see [facility] LB IRON AND TIBC Reviewed date:05/04/2025 06:19:43 PM Interpretation: Performing Lab: Notes/Report: [facility] ,Iron19.065.0-175.0 ug/dLTotal Iron Binding Sfqozhjk215.0250.0-450.0 ug/dL Percent Iron Saturation4.8Performing Lab:see note - [facility] LB Packed Red Blood Cells Reviewed date:05/05/2025 04:52:45 PM Interpretation: Performing Lab: Notes/Report:Packed Red Blood Cells [id number] AP TRANSFUSED 05/05/25 1350 [id number] [facility] TRANSFUSED 05/05/25 1210 Type and Screen Reviewed date:05/05/2025 04:52:45 PM Interpretation: Performing Lab: Notes/Report: [facility] ,Blood TypeA PositiveAntibody ScreenNEGATIVECA segmental UE or LE LEONEL Reviewed date:05/04/2025 06:19:43 PM Interpretation: Performing Lab: Notes/Report: Source Facility: [facility]-[address] [place] [address] [place] [address] Cardiology Report Signed Patient: TERRANCE ALICIA MR#: [id number] : 1960 Acct:[id number] Age/Sex: 65 / M ADM Date: 05/04/25 Loc: CARD Attending Dr: Perico Mccabe M.D. Ordering Physician: Perico Mccabe M.D. Date of Service: 05/04/25 Procedure(s): CA segmental UE or LE LEONEL Accession Number(s): [id number] cc: Perico Mccabe M.D. 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 Interpretive Statements Summary of the findings: Right leg: SHADI= 1.42; TBI= 1.01. Doppler waveforms demonstrate multiphasic flow at the posterior tibial and dorsalis pedis arteries. Left leg: SHADI= 1.37; TBI= 1.23. Doppler waveforms demonstrate multiphasic flow at the posterior tibial and dorsalis pedis arteries. Segmental pressures: Segmental pressures show calcified non-compressible vessels bilaterally. Pulse volume recordings: PVRs at the high thigh, below knee, and ankle levels show normal waveforms. Conclusion: Calcified non-compressible vessels in the lower extremities. Arterial duplex ultrasound is recommended for better assessment. Electronically Signed On 05-04-2025 14:27:11 EDT by JARON NUÑEZ M.D. Dictated By: JARON NUÑEZ Signed By: 05/04/25 1427 05/04/25 1427 DD/ 1346 TD/TT: Sample Builder:IRON AND TIBC Reviewed date:05/07/2025 04:57:36 PM Interpretation: Performing Lab: Notes/Report: [facility] ,Iron31.065.0-175.0 ug/dLTotal Iron Binding Yfcskfdc644.0250.0-450.0 ug/dL Percent Iron Saturation7.6Performing Lab:see noteML - [facility] LB LIPID PROFILE Reviewed date:05/02/2025 02:43:54 PM Interpretation: Performing Lab: Notes/Report: [facility] ,Ruyjtdzbnwgbr03<=150 mg/iOMnuniktcjcf61<=200 mg/dLHDL Ggdbtlhztad2671-51 mg/dL <40 mg/dl - HIGH CARDIOVASCULAR RISK > or =60 mg/dl - LOW CARDIOVASCULAR RISK LDL Cholesterol Dfotunejla46.0 <100 mg/dl OPTIMAL 100-129 mg/dl NEAR OR ABOVE OPTIMAL >190 mg/dl VERY HIGH 160-189 mg/dl HIGH 130-159 mg/dl BORDERLINE HIGH VLDL CGNAGLHBQDJ15.8Chol HDL Ratio2.0 7.1 - 11.0 MODERATE RISK 4.4 - 7.1 AVERAGE RISK 3.3 - 4.4 LOW RISK >11.0 HIGH RISK Performing Lab:see noteML - [facility] LBFREE T3 Reviewed date:05/02/2025 02:43:54 PM Interpretation: Performing Lab: Notes/Report: [facility] ,[facility] T32.702.18-3.98 pg/mLPerforming Lab:see noteML - [facility] LB NM juana perf SPECT rest str Reviewed date:01/12/2025 07:37:01 PM Interpretation: Performing Lab: Notes/Report: Source Facility: [place] [address] Nuclear Medicine Report Signed Patient: TERRANCE ALICIA MR#: [id number] : 1960 Acct:[id number] Age/Sex: 64 / M ADM Date: 01/11/25 Loc: NM Attending Dr: Lindsey Navas M.D. Ordering Physician: Lindsey Navas M.D. Date of Service: 01/11/25 Procedure(s): NM juana perf SPECT rest str Accession Number(s): [id number] cc: Lindsey Navas M.D.; Perico Mccabe M.D. Patient Name: TERRANCE ALICIA MR#: [id number] : 1960 Exam Date: 01/11/2025 Ordering Doctor: DR LINDSEY NAVAS M.D. RADIOLOGY REPORT PROCEDURE: NM JUANA PERF SPECT REST STR COMPARISON: None. INDICATIONS: CHEST PAIN, DYSPNEA, FATIGUE TECHNIQUE: Exam Description: Rest/Stress one day protocol gated SPECT Rest Imagin.2 mCi Tc-99m Cardiolite IV on 01/11/2025 Stress Imaging 30.8 mCi Tc-99m Cardiolite IV on 01/11/2025 Exercise Protocol: Mandeep Heart Rate (bpm): Rest: 63 Max: 137 PMHR: 88 Blood Pressure: Rest: 180/88 Max: 194/88 Exercise Time: Minutes: 4 Seconds: 12 Stage Reached: Stage: 2 Mets 7.0 Symptoms: Rest and peak stress ECG findings were pending, and the exercise portion of the study was pending per attending physician [facility]. For more details, please see separate cardiac stress test report. FINDINGS: QUALITY OF STUDY: Good PERFUSION DEFECT: LOCATION: N/A SIZE: N/A SEVERITY: N/A TYPE: N/A WALL MOTION: Normal wall motion LV SIZE: 144 mL. TID / TCD: 1.0 LVEF: Calculated EF 66%. SUMMARY: Myocardial perfusion imaging study is normal CONCLUSION: 1. Myocardial perfusion is normal 2. Normal global left ventricular systolic function 3. No evidence of transient ischemic dilatation Dictated by: Lindsey Navas M.D. on 01/12/2025 at 15:53 Approved by: Lindsey Navas M.D. on 01/12/2025 at 15:55 Dictated By: Lindsey Navas M.D. Signed By: 01/12/25 1557 DD/ 1556 TD/TT: Sample Builder:FERRITIN Reviewed date:05/07/2025 04:57:36 PM Interpretation: Performing Lab: Notes/Report: [facility] ,Wwcvdurl90.026.0-388.0 ng/mLPerforming Lab:see noteML - [facility] LB Reason For Referral No Information Medications Medication SIG (Take, Route, Frequency, Duration) Notes Start Date End Date Status Lisinopril 20 MG 1 tablet Orally Once a day ActivePoly-Iron 150 150 MG1 capsule Orally Daily; Duration: 30 days05/27/2023 ActiveAtorvastatin Calcium 80 MG1 tablet Orally Once a dayActivePantoprazole Sodium 40 MG1 tablet Orally bidActiveCarvedilol 25 MG1 tablet with food Orally Twice a dayActiveLasix 40 MG1 tablet Orally Once a day; Duration: 4 days 5ActiveSildenafil Citrate 20 MG1 tablet Orally once every 72 hours PRN; Duration: 90 days5ActiveAspirin Adult Low Dose 81 MG1 tablet Orally Once a dayActiveApixaban 5 MG1 tablet Orally Twice a dayActive Social History Tobacco Use: Social History Observation Description Date Details (start date - stop date) Never Smoker NA - NA Tobacco Use/Smoking Question Answer Notes Patient is a nonsmoker Alcohol Screen (Audit-C) Question Answer Notes Did you have a drink containing alcohol in the p ast year? Yes How often did you have 6 or more drinks on one occasion in the past year?Never (0 point)How many drinks did you have on a typical day when you were drinking in the past year?1 or 2 drinks (0 point)How often did you have a drink containing alcohol in the past year?Less than monthly (1 point)Hsrdos6Jxgslwyfbknxxi Negative Problems Problem Type SNOMED Code ICD Code Onset Dates Problem Status W/U Status Risk Notes Problem Age-related cataract (57194533) Unspecified age-related cataract (H25.9) ActiveconfirmedProblemHypertensive heart failure (24560728)Hypertensive heart disease with heart failure (I11.0)ActiveconfirmedProblemDiaphragmatic hernia (13830430)Diaphragmatic hernia without obstruction or gangrene (K44.9)Active confirmedProblemCrohn's disease (22656895)Crohn's disease, unspecified, with unspecified complications (K50.919)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)ActiveconfirmedProblemChest pain (75230247)Chest pain (R07.9)Active confirmedProblemHypertension (82475792)Hypertension (I10)ActiveconfirmedProblem Atrial fibrillation (disorder) (43881688)Afib (I48.91)ActiveconfirmedProblem Anemia (383550978)Anemia (D64.9)ActiveconfirmedProblemDyspnea (209221315)Dyspnea (R06.00)ActiveconfirmedProblemOsteoarthritis of knee (924933661)Osteoarthritis of knee (M17.9)ActiveconfirmedProblemChronic fatigue syndrome (83022739)Chronic fatigue (R53.82)ActiveconfirmedProblemWell adult (116415962)Well adult (Z00.00) ActiveconfirmedProblemLeg pain (45348088)Leg pain (M79.606)Activeconfirmed ProblemCholelithiasis (188426494)Cholelithiases (K80.20)ActiveconfirmedProblem Near syncope (224347520)Near syncope (R55)ActiveconfirmedProblemInduratio penis plastica (3141449)Peyronie disease (N48.6)ActiveconfirmedProblemOverweight (827443871)Over weight (E66.3)ActiveconfirmedProblemErectile dysfunction (disorder) (586196222)Impotence (N52.9)ActiveconfirmedProblemShoulder impingement syndrome (048367338)Shoulder impingement syndrome (M75.40)Active confirmedProblemStricture of small intestine (5881299276)Stricture of small intestine (K56.699)Activeconfirmed Vital Signs Heart Rate 72 /min 04/28/2025 Uzeyilmr43 %04/28/2025lood pressure eweaoewae08 mm Hg04/28/20252208Estsyy10 in 04/28/2025lood pressure lwcqnmni999 mm Hg04/28/20250392Ilopso328.6 lbs04/28/2025MI 31.71 kg/m204/28/2025 Procedures Procedure Date Ordered Date Performed Result Body Sit e SHADI Segmental Pressure Study of Lower Extremity 04/28/2025 N/A Encounters Encounter Location Date Provider Diagnosis [facility] [address] [place] [address] 05/03/2025 Thanh Hoy Anemia D64.9 [facility] [address] [place] [address] 05/04/2025 Thanh Hoy Anemia D64.9 [facility] [address] [place] [address] 05/07/2025 Thanh Hoy [facility] [place] [address] [facility] [place] [address]/Doug HoyLeg pain 729.[facility] [place] [address]/[place] [address] [place] [facility] [place] [address]/09/2024Doug HoyAnemia D64.9[address] [place] [address] 10/13/2024Doug HoyAcute non-recurrent sinusitis, unspecified location J01.90 ; Nasal congestion R09.81 ; Cervical arthritis M46.92 and Leg pain 729.[address] [place] [address]/ Thanh HoyCrohn's disease, unspecified, with unspecified complications K50.919 ; Hypertensive heart disease with heart failure I11.0 ; Chest pain R07.9 and Leg pain M79.606 Assessments Encounter Date Diagnosis (ICD Code) Assessment Notes Treatment Notes Treatment Clinical Notes Section Notes 10/13/2024 Acute non-recurrent sinusitis, unspecified location (ICD-10 - J01.90) Rest and drink more liquids, especially water. You may use a humidifier or vaporizer to help keep the drainage moist. Izur-zbz-hszmjmb Nasal Saline may help the stuffy and runny nose. Use Ibuprofen and or Tylenol as needed for fever, chills, body aches or pain. Children 5 years old should not be given vdhd-sge-ixhhskk cough and cold medications such as guaifenesin and dextromethorphan. If you're over age 5, you may try esoj-hjm-pyxyfco cold medications such as guaifenesin and dextromethorphan, or multi-symptom cold reliever such as Dayquil to help reduce the symptoms. Antibiotics have been pre scribed. You should take these until completed and follow the directions. Antibiotics can sometimescause upset stomach, and in rare cases, serious allergic reactions or serious gastrointestinal problems. If you start having severe abdominal pain, severe vomiting, or bloody diarrhea, you should be r eevaluated by your physician or urgent care immediately. Follow up with your Primary Care Provider or return to clinic if symptoms do not improve within 3-5 days10/13/2024Nasal congestion (ICD-10 - R09.81)5Crohn's disease, unspecified, with unspecified complications (ICD-10 - K50.919)04/28/2025 Hypertensive heart disease with heart failure (ICD-10 - I11.0)10/20/2024Leg pain (ICD9-CM - 729.5)5Anemia (ICD-10 - D64.9)5Anemia (ICD-10 - D64.9)5Anemia (ICD-10 - D64.9)5Chest pain (ICD-10 - R07.9) 5Cervical arthritis (ICD-10 - M46.92)10/13/2024Leg pain (ICD9-CM - 729.5)skipping chol med fo a week04/28/2025Leg pain (ICD-10 - M79.606) Plan Of Treatment Pending Test Test Name Order Date Exercise Stress Nuclear Test 05/27/2023 CMP (COMPLETE METABOLIC PANEL) 3 HEMOGLOBIN A1C (GLYCO) 05/27/2023 HEMOGLOBIN A1C (GLYCO) 04/28/2025 INSULIN, TOTAL 04/28/2025 INSULIN, TOTAL 05/27/2023 LIPID PANEL (CHOL/TRIG/HDL/LDL) 05/27/20 23 LIPID PANEL (CHOL/TRIG/HDL/LDL) 04/28/20 25 CBC WITH DIFF (EXP 07/2025) 05/27/2023 PSA, PROSTATE-SPECIFIC ANTIGEN 3 URIC ACID 05/27/2023 FECAL OCCULT BLOOD 05/02/2025 CBC W/AUTO DIFF 05/27/2023 CBC W/AUTO DIFF 05/04/2025 High Sensitivity Troponin 04/28/2025 STOOL OCCULT BLOOD 05/27/2023 IRON, TIBC AND FERRITIN 05/03/2025 PROTIME 05/27/2023 THYROID PANEL (T4/TSH/FREE T3) 3 THYROID PANEL (T4/TSH/FREE T3) 5 PSA, SCREENING 04/28/2025 SHADI Segmental Pressure Study of Lower Ex tremity 04/28/2025 CMP (COMP MET ABBOTT) w/eGFR CKD-EPI 2024 CBC WITH DIFF 04/28/2025 Insurance Providers Payer Name Payer Address Payer Phone Subscriber Number Group Number Insured Name Patient Relationship to Insured Coverage Start Date Coverage End Date [employer] [address] [address] [place] [phone] [id number] Poli Alicia - patient is the insured Medical (General) History Medical History History ICD Code Persistent atrial fibrillation I48.19 Atrial flutter I48.92 Afib I48.91 Over weight E66.3 Cholelithiases K80.20 Near syncope R55 Osteoarthritis of knee M17.9 Peyronie disease N48.6 Impotence N52.9 Shoulder impingement syndrome M75.40 Dyspnea R06.00 Hypertension I10 Chronic fatigue R53.82 Surgical History Surgery Date(Month/Year) Left Cataract extraction with intraocula r lens implant 09/10/2023 arthroscopy right knee herniated disc / s/p disectomytonsillectomyvasectomyheart cathRight Cataract extraction with intraocular lens implant09/2023EGD/lumaeplgyzo40/6/25
--- OUTSIDE RECORDS SUMMARY | 2025-08-04 11:56 | XMS_ITS | CCD ---
Author Organization [facility] Care Team Providers Care Radio Aerial Installer Name Role Phone UNKNOWN, PHYSICIAN Primary Care Unavailable UNKNOWN, PHYSICIAN Referring Unavailable ELTAHAWY, EHAB A Admitting Unavailable YOSEF, EHAB A Attending Unavailable Perico Mccabe Primary Care Physician MD Perico Mccabe Primary Care Provider MD Enoch Neal Attending Provider Enoch Neal Unavailable Javid WILLIS Attending Unavailable Andrey PROVIDERPerico [...] Primary Care Unavailable ZICL MODI Consulting Unavailable JARAD POTTSEN R Consulting Unavailable ROSALINA LABOY Admitting Unavailable ROSALINA LABOY Attending Unavailable HOY ., DR RIVER Primary Care Unavailable BENOITROSALINA Caceres Consulting Unavailable DEYVI, DR Rose Du Consulting [...] Unavailable NILL ., DR DIAZ Admitting Unavailable [facility], DR CUBA Mark Consulting Unavailable NILL ., DR DIAZ Consulting Unavailable HOY ., DR RIVER Attending Unavailable HOY ., DR RIVER Primary Care Unavailable HOY ., DR RIVER Consulting Unavailable FAIZAY ., DR RIVER Admsupa Unavailable MD Perico Mccabe Primary Care Provider [phone] MD Enoch Neal Attending Provider LETHA MONTOYA Referring Unavailable PERICO MCCABE Primary Care Unavailable CUBA TOMAS Referring Unavailable HOPERICO Encarnacion M Primary Care Unavailable LETHA MONTOYA Admitting Unavailable LETHA MONTOYA Attending Unavailable ZOIE BARNHART Attending Unavailable PERICO MCCABE Primary Care Unavailable LETHA MONTOYA Admitting Unavailable LETHA MONTOYA Attending Unavailable ZOIE BARNHART Attending Unavailable PERICO MCCABE Primary Care Unavailable MD Perico Mccabe Primary Care Provider [phone] DO Nelly Arias Attending Provider Perico Mccabe MD Primary Care Provider [phone] CUBA HAYWOOD Attending Unavailable CUBA HAYWOOD Admitting [...] Unavailable Perico Mccabe MD Primary Care Provider [phone] CHELSI KENT Attending Unavailable GLORIA PAGAN Attending Unavailable Perico Mccabe MD Primary Care Provider [phone] Ly Nelly LOOMIS Attending Provider Perico Mccabe MD Primary Care Provider [phone] Ly Nelly LOOMIS Attending Provider [phone] Ly Nelly LOOMIS Other Provider Perico Mccabe Primary Care Unavailable Nelly Arias Attending Unavailable [place], Nelly Rose Admitting Unavailable Nelly Arias Attending Unavailable Aden Ariase Rose Admitting Unavailable Perico Mccabe Primary Care Unavailable Medications Current Medications MedicationDrug Class(es)DatesSig (Normalized)Sig (Original)acetaminophen 500 mg oral tablet (5 sources)Start: 24-89-9319hqwc 2 tablets by mouth every six hoursacetaminophen (TYLENOL) 500 mg tablet Take 2 tablets by mouth every 6 hours. 50 tablet 05/18/2024 Activetake 2 tablets by mouth every six hours as neededacetaminophen (TYLENOL) 325 mg tablet Take 650 mg by mouth every 6 hours as needed. Active apixaban 5 mg oral tablet (20 sources)Factor Xa InhibitorStart: 73-11-9975jfyk 1 tablet by mouth twice dailyApixaban (Eliquis) 5 mg Tablet Active 5 MG PO Twice daily June 09, 2022 11:00pm Complies with drug therapyaspirin 81 mg delayed release oral tablet (12 sources)Platelet Aggregation Inhibitor, Nonsteroidal Anti-inflammatory Drug Start: 97-31-2473edag 1 tablet by mouth once dailyAspirin 81 mg tablet,delayed release (DR/EC) Active 81 MG PO Daily January 11, 2024 11:00pm Complies with drug therapyStart: 02-02-2021 End: 51-58-3081spxufac 325 mg tablet Take by mouth. 02/02/2021 04/30/2024 Discontinuedtake 1 capsule by mouth once dailyaspirin 81 mg cap Take 81 mg by mouth once daily. Activeatorvastatin 80 mg oral tablet (20 sources)HMG-CoA Reductase InhibitorStart: 97-93-3960qyqr 1 tablet by mouth once dailyAtorvastatin 80 mg Tablet Active 80 MG PO Daily June 09, 2022 11:00pm Complies with drug therapyBacillus coagulan-calcium carb (DIGESTIVE ADVANTAGE PROBIOTIC) 2 billion cell- 140 mg cap (2 sources)Start: 33-63-4160wjcp 1 capsule by mouth once dailyBacillus coagulan- calcium carb (DIGESTIVE ADVANTAGE PROBIOTIC) 2 billion cell- 140 mg cap Take 1 capsule by mouth once daily. 30 capsule 05/19/2024 Activebudesonide 3 mg delayed release oral capsule (6 sources)CorticosteroidStart: 07-77-8943mjak 3 capsules by mouth every twenty- four hoursBudesonide 3 MG 3 capsules Orally Once a day for 30 days Aug, Activecarvedilol 25 mg oral tablet (11 sources)alpha-Adrenergic César, beta-Adrenergic BlockerStart: 01-05-2024 End: 90-42-5780xlsk 1 tablet by mouth twice dailyCarvedilol 25 mg tablet Active 25 MG PO Twice daily January 11, 2024 11:00pm Complies with drug therapy End: 24-69-9040oufm 1 tablet by mouth twice dailycarvedilol (COREG) 12.5 mg tablet carvedilol 12.5 mg tablet TAKE 1 TABLET BY MOUTH TWICE DAILY 04/30/2024 Discontinueddoxazosin 4 mg oral tablet (1 source)alpha-Adrenergic BlockerStart: 25-82-0498waja 1 tablet by mouth once dailydoxazosin 4 mg Tab 4 mg = 1 tab(s), Oral, Daily, Refills(s) 0 Start Date: 04/01/22 Status: Orderedhyoscyamine sulfate 0.125 mg oral tablet (1 source)Start: 36-00-0456ujls 1 tablet by mouth four times daily as needed for painLevsin 0.125 mg SL Tab 0.125 mg = 1 tab(s), Oral, QID, PRN Pain, Refills(s) 0 Start Date: 03/28/22 Status: Orderedlisinopril 20 mg oral tablet (12 sources)Angiotensin Converting Enzyme InhibitorStart: 11-64-7790odnm 1 tablet by mouth once dailyLisinopril 20 mg tablet Active 20 MG PO Daily January 11, 2024 11:00pm FreeTextSi tablet Orally Once a day; Note: Source Status: Taking; Provider: Deyvi Kendall ( ) Complies with drug therapymethocarbamol 750 mg oral tablet (2 sources)Muscle RelaxantStart: 55-91-8286esyn 1 tablet by mouth every eight hours as neededmethocarbamol (ROBAXIN) 750 mg tablet Take 1 tablet by mouth three times a day as needed for musclespasms. 15 tablet 05/18/2024 Active metroNIDAZOLE 500 mg oral tablet (3 sources)Nitroimidazole AntimicrobialStart: 28-45-1474qfsvyPAYFNWFT (FLAGYL) 500 mg tablet Take 1 tablet by mouth as directed. Take one tab at 6:00 p.m., another at 7:00 p.m. and the last one at 11:00 p.m., prior to surgery 3 tablet 04/29/2024 Activeneomycin sulfate 500 mg oral tablet (3 sources)Aminoglycoside AntibacterialStart: 30-40-8445hodggtgv 500 mg tablet Take 2 tablets by mouth as directed. Take two tabs at 6:00 p.m., 7:00 p.m. and 11:00 p.m., prior to surgery 6 tablet 04/29/2024 Activepantoprazole 20 mg delayed release oral tablet (20 sources)Proton Pump InhibitorStart: 69-03-1559qtmr 1 tablet by mouth once dailyPantoprazole 20 mg Tablet,Delayed Release (Dr/Ec) Active 20 MG PO Daily June 09, 2022 11:00pm Complies with drug therapyStart: 34-80-6819quuu 1 tablet by mouth once dailypantoprazole DR (PROTONIX) 40 mg tablet Take 40 mg by mouth once daily. 04/23/2021 Activesildenafil 100 mg oral tablet (6 sources)Phosphodiesterase 5 InhibitorStart: 79-66-6351xvcndayphf (VIAGRA) 100 mg tablet 01/12/2021 Activespironolactone 25 mg oral tablet (7 sources)Aldosterone AntagonistStart: 89-61-3282ytej 1 tablet by mouth every twenty-four hoursSpironolactone 25 MG 1 tablet Orally Once a day for 30 days Apr, Active Completed/Discontinued Medications MedicationDrug Class(es)DatesSig (Normalized)Sig (Original)0.4 ml adalimumab 100 mg/ml auto-injector (9 sources)Tumor Necrosis Factor BlockerStart: 12-30-2023 End: 60-12-5876Zgbyukrvko (Humira(Cf) Pen) 40 mg/0.4 mL pen injector kit Discontinued 0 SUBCUT Q14D 6 90 3 December 29, 2023 11:00pm July 02, 2024 7:37am inject one - 40 mg/0.4 mL pen every 2 weeks subcutaneously every 14 days; adalimumab (HUMIRA,CF, PEN UIHTMA-HN-TQ) 80 mg/0.8 mL pen kit Inject 80 mg subcutaneously every 2 weeks. Wfsqvi20 hr buPROPion hydrochloride 150 mg extended release oral tablet (2 sources)AminoketoneStart: 02-02-2021 End: 96-84-9835lrITVXnby XL (WELLBUTRIN XL) 150 mg 24 hr tablet q 24 HR. 02/02/2021 04/30/2024 Discontinuedclopidogrel 75 mg oral tablet (2 sources)P2Y12 Platelet Inhibitor End: 05-99-4597lseg 1 tablet by mouth once dailyclopidogrel (PLAVIX) 75 mg tablet clopidogrel 75 mg tablet TAKE 1 TABLET BY MOUTH DAILY 04/30/2024 D iscontinuedhydroCHLOROthiazide 12.5 mg / lisinopril 20 mg oral tablet (2 sources)Thiazide Diuretic, Angiotensin Converting Enzyme InhibitorStart: 02-02-2021 End: 36-59-0802rpmaoucpil-hydroCHLOROthiazide (PRINZIDE,ZESTORETIC) 20-12.5 mg per tablet q 24 HR. 02/02/2021 04/30/2024 Rbfpadvxikae46 hr isosorbide mononitrate 30 mg extended release oral tablet (8 sources)Nitrate VasodilatorStart: 06-10-2022 End: 96-21-5607sloi 1 tablet by mouth once daily, then take 1 tablet by mouth every twenty-four hoursIsosorbide Mononitrate 30 mg Tablet Extended Release 24 Hr Discontinued 30 MG PO Daily June 11:00pm January 12, 2024 9:30am Start: 87-86-2426huex 1 tablet by mouth once daily in the morningisosorbide mononitrate 30 mg ER Tab 30 mg = 1 tab(s), Oral, qAM, Refills(s) 0 Start Date: 04/01/22 Status: Orderedmeloxicam 15 mg oral tablet (10 sources)Nonsteroidal Anti-inflammatory DrugStart: 06-10-2022 End: 23-34-9354zhqy 1 tablet by mouth once dailyMeloxicam 15 mg Tablet Discontinued 15 MG PO Daily June 09, 2022 11:00pm January 12, 2024 9:30am Start: 21-32-5500dplh 1 mg by mouth once dailymeloxicam 15 mg oral tablet mg tab(s), Oral, Daily, Refills(s) 0 Start Date: 02/02/21 Status: OrderedStart: 02-02-2021 End: 61-65-0154vrhsakbgc (MOBIC) 15 mg tablet q 24 HR. 02/02/2021 04/30/2024 Discontinuedmetoprolol tartrate 50 mg oral tablet (19 sources)beta-Adrenergic BlockerStart: 06-10-2022 End: 25-68-1108gduo 1 tablet by mouth once dailyMetoprolol Tartrate 50 mg Tablet Discontinued 50 MG PO Daily June 09, 2022 11:00pm January 12, 2024 9:30am Start: 04-40-2365tluh 1 tablet by mouth once dailyMetoprolol tartrate 50 mg Tab 50 mg = 1 tab(s), Oral, Daily, Refills(s) 0 Start Date: 04/01/22 Status: Ordered take 1 tablet by mouth every twelve hoursMetoprolol Tartrate 50 MG 1 tablet with food Orally Twice a day Activetake 1 tablet by mouth in the morning, then take 1 tablet by mouth at bedtimemetoprolol tartrate (LOPRESSOR) 100 mg tablet Take 1 tablet (100 mg total) by mouth in the morning and 1 tablet (100 mg total) before bedtime. 0 Activeomeprazole 40 mg delayed release oral capsule (2 sources)Proton Pump InhibitorStart: 02-02-2021 End: 30-79-6718fxcinnpplw (PRILOSEC) 40 mg capsule q 24 HR. 02/02/2021 04/30/2024 DiscontinuedsulfaSALAzine 500 mg oral tablet (10 sources)Aminosalicylatetake 2 tablets by mouth every twelve hours sulfaSALAzine 500 MG 2 TABLETS Orally TWICE A DAY Not-Taking/PRN Problems Active Problems Problem ClassificationProblemDateDocumented DateEpisodic/ChronicAbdominal pain (20 sources)Periumbilical pain; Translations: [Periumbilical pain]Onset: 78-92-0001YsafdgniUkwir and unspecified renal failure (1 source)Acute kidney failure, unspecified; Translations: [ACUTE KIDNEY FAILURE UNSPECIFIED]Onset: 46-81-5559LwipfjvkOekicid dysrhythmias (17 sources)Unspecified atrial fibrillation; Translations: [Atrial fibrillation] Onset: 06-24-0090KucoqomHjlxmlwv (1 source)CataractOnset: 49-85-2014Cfxzoufcfg heart failure; nonhypertensive (1 source)Unspecified diastolic (congestive) heart failure; Translations: [UNSPECIFIED DIASTOLIC HEART FAILURE]Onset: 43-23-7501DxxqhxbIlagbaga atherosclerosis and other heart disease (12 sources)Atherosclerotic heart disease of [place] coronary artery without angina pectoris; Translations: [Coronary atherosclerosis]Onset: 05-10-2022 56-83-6123HlgmrurZgbmholfgl and other anemia (9 sources)Anemia due to chronic blood loss; Translations: [Iron deficiency anemia secondary to blood loss (chronic)]ChronicDeficiency and other anemia (1 source)Iron deficiency anemia secondary to blood loss (chronic); Translations: [Iron deficiency anemia dueto chronic blood loss]ChronicDeficiency and other anemia (19 sources)Iron deficiency anemia; Translations: [Iron deficiency anemia, unspecified]Onset: 76-08-5353SwdsepdkClcvpjetik and other anemia (10 sources)Iron deficiency anemia, unspecified; Translations: [IRON DEFICIENCY ANEMIA UNSPECIFIED]Onset: 53-30-2684XkaqytieVuwsbbpuj of lipid metabolism (7 sources)Hyperlipidemia; Translations: [Hyperlipidemia, unspecified]Onset: 927518-59-0275DtwmwwnEhsdybxbehfkyx and diverticulitis (1 source)Diverticulosis of large intestine without perforation or abscess without bleeding; Translations: [DVRTCLOS LG INT NO PERF/ABSC W/O BL]Onset: 72-44-0097CosbcnwFylhtppnsh disorders (5 sources)Gastroesophageal reflux disease; Translations: [Gastro-esophageal reflux disease without esophagitis]28-74-1477XxupjlkTivxormzd hypertension (11 sources)Hypertensive disorder; Translations: [Essential (primary) hypertension]Onset: 903900-17-2007UhrywfwUxisx valve disorders (3 sources)Rheumatic disorders of both mitral and aortic valves; Translations: [Nonrheumatic mitral (valve) insufficiency]Onset: 00-43-9199SlevndoLbkgnykjens of prostate (1 source)Benign prostatic hyperplasia without lower urinary tract symptoms; Translations: [BENIGN PROSTATIC HYPRPLASIA WO LUTS]Onset: 44-05-8258Mwkubyp Hypertension with complications and secondary hypertension (1 source)Hypertensive heart disease with heart failure; Translations: [HTN HEART DISEASE W/HEART FAIL]Onset: 16-38-8191YbrjnjxHgtakvrrgx obstruction without hernia (8 sources)Other intestinal obstruction unspecified as to partial versus complete obstruction; Translations: [Stricture of small intestine]Onset: 308407-21-5264KlsfpxypEncrzhl and fatigue (1 source)Xqxhpoq36-94-1144PycrjtafWpyzresztfgqnl (1 source)Qdlwvgoonoohzq66-58-7903WhyponzBanvp aftercare (2 sources)Long-term current use of anticoagulant; Translations: [nursing home (current) use of anticoagulants]Onset: 89-77-5314LqbqfjigZprme aftercare (1 source)nursing home (current) use of aspirin; Translations: [RESIDENTIAL CURRENT USE OF ASPIRIN]Onset: 30-19-5505ApxndpseSzdki aftercare (1 source)Other snf (current) drug therapy; Translations: [OTH DRIP MOLDER CURRENT DRUG THERAPY]Onset: 41-95-7002XfyhxrrkHcuma aftercare (2 sources)Surgical follow-up; Translations: [Encounter for follow-up examination after completed treatment for conditions other than malignant neoplasm]51-43-1528HhzndbxoHkikq aftercare (1 source)Encounter for follow-up examination after completed treatment for conditions other than malignant neoplasm; Translations: [Follow-up examination after colorectal surgery]Onset: 93-43-8924DedvfoqwKrukk connective tissue disease (5 sources)Ganglion cyst of left dorsal wrist; Translations: [Ganglion, left wrist]06-89-6861QezafxmpWcgip gastrointestinal disorders (1 source)Irritable bowel syndrome without diarrhea; Translations: [IRRITABLE BOWEL SYND W/O DIARRHEA]Onset: 07-66-3418YjjvdfpBfaaj lower respiratory disease (1 source)Shortness of breath; Translations: [SHORTNESS OF BREATH]Onset: 03-16-5943ZnptdqcnUkryc lower respiratory disease (2 sources)Other forms of dyspnea; Translations: [Other forms of dyspnea]Onset: 32-07-6814MnfcklpcWffwt male genital disorders (1 source)Kkpvghpsm99-76-1537MhjxjewYepxl male genital disorders (5 sources)Induratio penis plastica; Translations: [Induration penis plastica] Onset: 341523-45-8720RnqsxhdWhggm male genital disorders (5 sources)Secondary erectile dysfunction; Translations: [Male erectile dysfunction, unspecified]Onset: 246497-31-2141UdpigtxHcgye nervous system disorders (1 source)Other acute postprocedural pain; Translations: [Post-op pain]Onset: 72-72-5367SwsbeoutPasse nutritional; endocrine; and metabolic disorders (5 sources)Unintentional weight loss; Translations: [Abnormal weight loss] 92-81-3387WrpybqnrVxypn nutritional; endocrine; and metabolic disorders (1 source)Abnormal weight loss; Translations: [Loss of weight]14-47-5527Uemhlzts Other screening for suspected conditions (not mental disorders or infectious disease) (1 source)Abnormal findings on diagnostic imaging of other specified body structures; Translations: [ABNORML FIND DX IMG OTH BODY STRUC]Onset: 05-10-2022 ChronicRegional enteritis and ulcerative colitis (20 sources)Crohn's disease; Translations: [Crohn's disease, unspecified, without complications]Onset: 07-04-2022 Resolved: 66-62-2077WfbvedoYnhhsjjysmt; intervertebral disc disorders; other back problems (1 source)Cervical disc ozugmsfb78-06-0422LuwafckXohtgnodxyfl (1 source)Patient encounter qvultp11-90-6307Bhljhrwfychk (1 source)CONTACT W/AND (SUSP) EXPOS COVID-19; Translations: [CONTACT W/AND (SUSP) EXPOS COVID-19]Onset: 26-09-3035Szbynoprhvdg (1 source)Other persistent atrial fibrillation; Translations: [OTHR PERSISTENT ATRIAL FIBRILLATION]Onset: 10-24-2022 Past or Other Problems Problem ClassificationProblemDateDocumented DateEpisodic/ChronicAbdominal hernia (1 source)Diaphragmatic hernia without obstruction or gangrene; Translations: [DIAPH HERNIA W/O OBST/GANGRENE]Onset: 26-49-6874OzvbufxnDxhupnj tract disease (7 sources)Biliary calculus; Translations: [Gallstone]Onset: 04-16-2022 30-64-1444GrrmfpmzDvpwgeknzw and other anemia (5 sources)Anemia, unspecified; Translations: [ANEMIA UNSPECIFIED]Onset: 67-28-9943WugvekmmRconnvwihp and other anemia (4 sources)Anemia; Translations: [Anemia, unspecified]Onset: 04-30-2024 28-40-3929YsfavyokNxycfhotkuvhu (1 source)Localized enlarged lymph nodes; Translations: [LOCALIZED ENLARGED LYMPH NODES]Onset: 66-49-9724QygollkgDpcalu and vomiting (4 sources)Nausea; Translations: [Nausea]Onset: 36-19-2996JsgovuusQrjcaojsmpndt gastroenteritis (1 source)Noninfective gastroenteritis and colitis, unspecified; Translations: [NONINFECTIVE GE AND COLITIS UNS]Onset: 89-04-3509DhujfczhLmfsh aftercare (1 source)watermaster (current) use of anticoagulants; Translations: [RESIDENTIAL CURRNT USE ANTICOAGULANTS]Onset: 05-45-3230AmgkxnhhKhfaz gastrointestinal disorders (2 sources)Diarrhea, unspecified; Translations: [DIARRHEA UNSPECIFIED]Onset: 28-22-6306EtesrxpxIxiwy gastrointestinal disorders (1 source)Change in bowel habit; Translations: [CHANGE IN BOWEL HABIT]Onset: 90-04-1291HlpanckrOnbdm screening for suspected conditions (not mental disorders or infectious disease) (8 sources)Other specified abnormal findings of blood chemistry; Translations: [Abnormal results of kidney function studies]Onset: 52-20-6208VvjwhzdhMujrkhcs; pneumothorax; pulmonary collapse (1 source)Pleural effusion, not elsewhere classified; Translations: [PLEURAL EFFUSION NEC]Onset: 93-15-0977Fgziwaei Results Test NameValueInterpretationReference RangeFacilityHCV Antibody Cascadeon 11-20-5544Nrqduccas C Virus AntibodyNon-ReactiveNormalNon ReactiveThe [facility] Physician GroupComment on above:Performed By: #### HCVCASCADE #### [facility] ,Interpretation Hepatitis CCommentNormal.The [facility] Physician [facility] GrenadaComment on above:Result Comment: Not infected with HCV unless early or acute infection is suspected (which may be delayed in an immunocompromised individual), or other evidence exists to indicate HCV infection. Performed at: [address] [id number] [employer] Machine Tender: Chalo Levine PhD, Phone: [phone] PERFORMED BY: [place] [address] PATHOLOGIST BUSINESS TAXES SPECIALIST ROJELIO CELESTE M.D.Performed By: #### HCVCASCADE #### [facility] ,Hepatitis B Core Antibodyon 08-37-3263Favtxsroo B Core AntibodyNegativeNormal NegativeThe [facility] Hill HospitalComment on above:Result Comment: Performed at: [address] [id number] [employer]ing Machine Tender: Chalo Levine PhD, Phone: [phone] By: #### HBSAG, HBCAB, HBSAB, QUANT TB #### [facility] ,Hepatitis B Surface Antibodyon 93-94-9484Jymmqahon B Surface Antibody Non-ReactiveNormal.The [facility] Physician [facility] GrenadaComment on above:Result Comment: Non Reactive: Not immune to HBV infection. Anti-HBs undetectable or less than 10 mIU/mL. Reactive: Evidence of HBV immunity. Anti-HBs levels greater than 10 mIU/mL.Performed By: #### HBSAG, HBCAB, HBSAB, QUANT TB #### [facility] ,Hepatitis B Surface Antigenon 00-54-8118IIdUz ScreenNegativeNormalNegativeThe [facility] Physician GroupComment on above:Result Comment: PERFORMED BY: [facility] [place] [address] PATHOLOGIST BUSINESS TAXES SPECIALIST ROJELIO CELESTE M.D.Performed By: #### HBSAG, HBCAB, HBSAB, QUANT TB #### [facility] ,QuantiFERON TB Goldon 61-20-6239HGFA CriteriaCommentNormal.The [facility] Physician GroupComment on above:Result Comment: QuantiFERON-TB Gold Plus is a qualitative indirect test for M tuberculosis infection (including disease) and is intended for use in conjunction with risk assessment, radiography, and other medical and diagnostic evaluations. The QuantiFERON-TB Gold Plus result is determined by subtracting the Nil value from either TB antigen (Ag) value. The Mitogen tube serves as a control for the test.Performed By: #### HBSAG, HBCAB, HBSAB, QUANT TB #### [facility] ,Quant TB Ag Value0.05Normal.The [facility] Physician GroupComment on above: Performed By: #### HBSAG, HBCAB, HBSAB, QUANT TB #### [facility] ,Quant TB Gold PlusNegativeNormalNegativeThe [facility] Physician GroupComment on above:Result Comment: No response to M tuberculosis antigens detected. Infection with M tuberculosis is unlikely, but high risk individuals should be considered for additional testing (ATS/IDSA/CDC Clinical Practice Guidelines, 2017). The reference range is an Antigen minus Nil result of <0.35 IU/mL. The specimen received for QuantiFERON testing was incubated by the ordering institution. Specific procedures outlined in our Directory of Services and in the package insert for the QuantiFERON Gold (In Tube) test must be followed to enable for proper stimulation of cells for the production of interferon gamma. Chemiluminescence immunoassay methodology Performed at: [facility] [address] [id number] Cart[employer] Forming Machine Tender: Chalo Levine PhD, Phone: [phone] PERFORMED BY: [place] [id number] PATHOLOGIST BUSINESS TAXES SPECIALIST ROJELIO CELESTE M.D.Performed By: #### HBSAG, HBCAB, HBSAB, QUANT TB #### [facility] ,Quant TB2 Ag Value0.03Normal.The [facility] Physician GroupComment on above: Performed By: #### HBSAG, HBCAB, HBSAB, QUANT TB #### [facility] ,Quantiferon Nil Value0.02Normal.The [facility] Physician GroupComment on above: Performed By: #### HBSAG, HBCAB, HBSAB, QUANT TB #### [facility] ,Quantiferon TB Mitogen>10.00Normal.The [facility] Physician GroupComment on above:Performed By: #### HBSAG, HBCAB, HBSAB, QUANT TB #### [facility] ,CT enterographyon 43-99-0059NF [facility]ography[facility] [address] [place] [id number] [facility] Scan Report Signed Patient: Ayo Alicia MR#: [id number] : 1960 Acct:[id number] Age/Sex: 65 / M ADM Date: 06/22/25 Loc: [place] Room: Type: [facility] Attending Dr: Nelly Arias DO Copies to: Nelly Arias DO Ordering Provider: Nelly Arias DO Date of Service: 06/22/25 CT/CT enterography: K56.699 - Other intestinal obstruction unspecified as to ... CT enterography TECHNIQUE: Axial imaging with 2-D reconstruction. The CT exam was performed using one or more the following dose reduction techniques: Automated exposure control, adjustment of the MA and/or Kv according to patient size, or use of the iterative reconstruction technique. COMPARISON: 04/16/2024 History: Constipation and diarrhea. History of surgery. Removal of cecum and ileum. Appendectomy. LIMITATIONS: None LOWER THORAX small hiatal hernia. Lung bases clear. LIVER: Hepatic steatosis GALLBLADDER: Cholelithiasis identified. BILE DUCTS: No dilatation SPLEEN: Calcified splenic granulomas. PANCREAS: Unremarkable ADRENAL GLANDS: Unremarkable KIDNEYS:Similar left renal cyst. AORTA: No abdominal aortic aneurysm identified. Atherosclerosis. RETROPERITONEUM: No significant retroperitoneal abnormalities identified. MESENTERY:Unremarkable STOMACH:Unremarkable SMALL BOWEL: Nondistended small bowel. No segmental wall thickening. No adjacent inflammation. No pneumatosis. APPENDIX: The appendix is normal. COLON: Sickle postsurgical changes. Mild distention of the colon. No focal narrowing. No wall thickening. URINARY BLADDER: Urinary bladder is unremarkable. REPRODUCTIVE SYSTEM: Reproductive structures are unremarkable. PNEUMOPERITONEUM: None PERITONEAL FLUID:None BONY STRUCTURES: L3-4 degenerative change. ABDOMINAL WALL: Small fat-containing umbilical hernia. CT/CT enterography IMPRESSION: Postsurgical changes of removal of the cecum and terminal ileum without complication seen. No regions of small bowel wall thickening. No wall thickening of the colon. No adenopathy. Cholelithiasis. Tiny hiatal hernia. No focal inflammatory changes. Impression dictated by: Thomas Sun M.D. 06/22/2025 4:36 PM Dictation Location: [place] [address] Transcribed By: [facility] 06/22/25 1636 Dictated By: Thomas Sun DO 06/22/25 1626 Signed By: 06/22/25 1636NoCritical access hospital Physician GroupCreatinineon 38-48-0980YCO/1.73 sq M.predicted MDRD (S/P/Bld) [Vol rate/Area]mL/min/{1.73_m2}NormalThe [facility] Physician GroupComment on above:Result Comment: PERFORMED BY: [place] [address] PATHOLOGIST BUSINESS TAXES SPECIALIST ROJELIO CELESTE M.D.Performed By: #### CREAT, BUN #### [facility] [address] [place] [address] USACreatinine [Mass/volume] in Serum or PlasmaOrdered By: Nelly price 51-69-4391Plhcgynjct [Mass/Vol]1.06 mg/dLNormal0.70-1.30 [facility]itus Medical CenterComment on above:Performed By: #### CREAT, BUN #### [facility] [address] [place] [address] USAGlomerular filtration rate [Volume Rate/Area] in Serum, Plasma or Blood by CreatinineOrdered By: Nelly Arias on 84-96-4940Uxwmfdgqmj filtration rate [Volume Rate/Area] in Serum, Plasma or Blood by Creatinine> 60.0 mL/MinFisher-Titus Medical CenterNo Panel InformationOrdered By: Nelly Arias on 14-34-6288Dzawfsnc Creatinine Clearance (ChemN/[facility] HospitalUrea nitrogen [Mass/volume] in Serum or PlasmaOrdered By: Nelly Arias on 73-75-7032Gmfb nitrogen [Mass/Vol]13 mg/dLNormal03-25[facility]-Titus Medical CenterComment on above:Performed By: #### CREAT, BUN #### [facility] [address] [place] [address] USAOffice Visiton 70-03-7597Dzyyoz-up [id number] Ayo Alicia 1960 M Date Provider Department Center [facility]/04/[address] [facility] Family History Problem Relation Age of Onset Atrial fibrillation Mother Other Mother Other Mother Coronary artery disease Father Family Status - Relation Status Age at Mother Father Level of Service:35246 MS OFFICE/OUTPATIENT ESTABLISHED MOD MDM 30 MIN Reason for Visit and Comments: Follow-up [451513] - 6 month follow upNormalUniversity of [facility] CNOVon 29-12-0600NGZNKwtzru Visit ([facility]) AYO ALICIA ([id number]) 1960 M Date Time Provider Department 08/20/24 10:40 AM CUBA HAYWOOD [facility] During your visit today, we recorded the [...] spasms. 15 tablet 0 adalimumab (HUMIRA,CF, PEN SYRZBO-LT-BM) 80 mg/0.8 mL pen kit Inject 80 [...] morbidity, mortality and/or complications of treatment plan: moderate Cuba Haywood MD Colorectal Surgery Referring Provider: CUBA HAYWOOD [[id number]] Allergies As of Date: 08/20/2024 (No Known Allergies) Date Reviewed: 08/20/2024 Reviewed by: Arleen Jernigan OCCA - Fully Assessed Reason for Visit: [...] for muscle spasms. - adalimumab (HUMIRA,CF, PEN GYHCCQ-MD-WN) 80 mg/0.8 mL pen kit Inject 80 mg (more content not included)...[place] [address]on 34-54-556255Axsq BP is <130/90, raghav with hx of heart disease. Recommend heart healthy diet and exercise. Also recommend we increase his lisinopril, we can go up to 30mg daily (1.5 tablets of his current 20mg Rx). Follow-up BMP in 2-3 weeks. Thanks [facility] HospitalOffice Visiton 21-12-7844Lngqeb-up [id number] Ayo Alicia 1960 M Date Provider Department Center 07/20/2024 [facility] Family History Problem Relation Age of Onset Atrial fibrillation Mother Other Mother Other Mother Coronary artery disease Father Family Status - Relation Status Age at Mother Father Level of Service:50140 MS OFFICE/OUTPATIENT ESTABLISHED MOD MDM 30 MIN Reason for Visit and Comments: Coronary Artery Disease [187] Hypertension [870542] Hyperlipidemia [182][facility] HospitalCNOVon 06-04-2024 CNOVOffice Visit ([facility]) AYO ALICIA ([id number]) 1960 M Date Time Provider Department 06/04/24 12:20 PM PEARL CALDERON [facility] During your visit today, we recorded the [...] AND dry Temperature: No Drains: No Pearl Calderon, KIMBERLY.CALENDERING SUPERVISOR 06/04/2024 12:46 PM Signed COLORECTAL SURGERY June 04, 2024 Ayo Alicia 64 year old This consult was requested by Dr. Haywood and my final recommendations will be communicated to the requesting health care provider by way of the shared medical record for internal providers or letter via the [employer] for external providers. Chief Complaint: [...] spasms. 15 tablet 0 adalimumab (HUMIRA,CF, PEN NXIMKM-UA-VC) 80 mg/0.8 mL pen kit Inject 80 [...] gone. Mild tenderness in (more content not included)...NormalEast [facility] 73-69-8490MIRFMPT ID: [id number] Author: CUBA HAYWOOD MD Service: Colorectal Author [...] tablet Commonly known as: COREG HUMIRA(CF) PEN SLJVYA-AG-RE 80 mg/0.8 mL pen kit Generic drug: adalimumab lisinopril 20 mg tablet Commonly known as: ZESTRIL PROTONIX 40 mg tablet Generic drug: pantoprazole DR sildenafil 100 mg tablet Commonly known as: VIAGRA STOP taking these medications metroNIDAZOLE 500 mg tablet Commonly known as: FLAGYL neomycin 500 mg tablet Where to Get Your Medications These medications were sent to [facility] [address] [place] [address] Hours: Friday-Friday: 7am-7pm, Sat: 9am-1pm acetaminophen 500 mg tablet lactobacillus rhamnosus 10 billion cell capsule methocarbamol 750 mg tablet oxyCODONE IR 5 mg immediate release tablet Future Appointments Date Time Provider Department Center 06/04/2024 12:20 PM Pearl Calderon APRN.[facility] Fvwestkremmling The patient's risk for 30-day readmission is determined using the following contributing factors: Pt variables contributing to increased readmission risk: 19 Most Recent BUN Result 10 Active Medication Orders (more content not included)...[facility] 05-17-2024 THERAPY NTHNO ID: [id number] Author: ONEYDA EDWARDS, PT Service: Physical Therapy Author Type: Physical Therapist Type: Therapy (PT/OT/Speech/Resp) Filed: 05/17/2024 13:05 Note Text: PHYSICAL THERAPY MISSED VISIT SERVICE DATE: 05/17/2024 SERVICE TIME: 0905 ROOM: [place] [address] Patient not seen due to pt ambulating independently per RN and OT ; will discharge PT order as patient has no further PT needs SIGNATURE: Oneyda Edwards, PT PATIENT NAME: Ayo Rodriguez Withem DATE: May 17, 2024 TIME: 1:04 [id number] Author: BECCA MONTENEGRO OTR/Rose Service: Occupational Therapy Author Type: Occupational Therapist Type: Therapy (PT/OT/Speech/Resp) Filed: 05/17/2024 12:23 Note Text: OCCUPATIONAL THERAPY MISSED VISIT SERVICE DATE: 05/17/2024 SERVICE TIME: 1220 ROOM: [place] [address] Patient not seen due to Clinical Appropriateness (Pt ambulating unit independently. Pt reported to this therapist that he is doing well, and has no further need for OT. Pt agreeable to discharge at this time. No billable hours.). Pt discharged from OT at this time. SIGNATURE: LAURA Sosa/Rose PATIENT NAME: Ayo Rodriguez Withem DATE: May 17, 2024 TIME: 12:22 [facility] 54-70-7169XWGIJG HEALTHHNO ID: [id number] Author: JEREMY MALDONADO, RT(R) Service: ? Author Type: Technologist Type: [...] PATIENT PRESENTS WITH AN IMPLANTABLE OR ATTACHED AQUACULTURE DIRECTOR: No RADIOLOGY DEPARTMENT: General X-ray: Exam(s) Completed: Abdomen X-Ray: Abdomen PERIPHERAL IV DATA: Not applicable SIGNED BY: RT Tonya(R) May 16, 2024 9:53 [facility] 05-16-2024 [facility] ID: [id number] Author: AFSANEH EDGE RN Service: Nursing Author Type: Registered Nurse Type: Nursing Progress Note Filed: 05/16/2024 11:03 Note Text: Daily Note: 0725: paged sent to [facility] regarding no lab order for AM. Awaiting response. 0733: per [facility], no labs needed at this time.[facility] HospitalXR ABDOMEN 1V SUPINEon 21-64-0012RA ABDOMEN 1V SUPINE* * *Final Report* * * DATE OF [...] bowel. Could reflect postoperative ileus or obstruction Motorcycle Maker: AARON Transcribe Date/Time: May 17 2024 7:20A Dictated by : SEBASTIEN ADORNO MD This examination was interpreted and the report reviewed and electronically signed by: SEBASTIEN ADORNO MD on May 17 2024 7:24AM EST [id number] HospitalBac metabolic 2000 panelon 59-78-7430Buvkt gap [Moles/Vol]8 mmol/LNormal8-15N[facility]ato HospitalComment on above:Order Comment: Specimen Type: TISSUE SPECIMEN [facility] Address: [address] [place], [place] [address]Performed By: #### S #### [facility] CLIA [id number] [address] [place] [address] [place] [facility] CLIA [id number] [address] [place] [address] [place] AMERICACalcium [Mass/Vol]8.3 mg/dL Low8.5-10.2Fcharlton memorial hospital HospitalComment on above:Order Comment: Specimen Type: TISSUE SPECIMEN [facility] Address: [address] [place], [place] [address]Performed By: #### S #### [facility] CLIA [id number] [address] [place] [address] [place] [facility] CLIA [id number] [address] [place] [address] [place] AMERICAChloride [Moles/Vol]106 mmol/VAwxlab24-662Afeguusd HospitalComment on above:Order Comment: Specimen Type: TISSUE SPECIMEN [facility] Address: [address] [place], [place] [address]Performed By: #### S #### [facility] CLIA [id number] [address] [place] [address] [place] [facility] CLIA [id number] [address] [place] [address] [place] AMERICACO2 [Moles/Vol]25 mmol/L Joewar12-26Dnurbtvj HospitalComment on above:Order Comment: Specimen Type: TISSUE SPECIMEN [facility] Address: [address] [place], [place] [address]Performed By: #### S #### [facility] CLIA [id number] [address] [place] [address] OF [facility] CLIA [id number] [address] [place] [address] [place] AMERICACreatinine [Mass/Vol]0.87 mg/dLNormal0.73-1.22[facility] HospitalComment on above:Order Comment: Specimen Type: TISSUE SPECIMEN [facility] Address: [address] [place], [place] [address]Performed By: #### S #### [facility] [place] [id number] [address] [place] [address] LAB CLIA [id number] [address] [place] [address] [place] [facility] HOSPITALCreatinine and Glomerular filtration rate.predicted panel (S/P/Bld)96 mL/min/1.73m???Normal>=60Longwood HospitalComment on above:Order Comment: Specimen Type: TISSUE SPECIMEN [facility] Address: [address] [place], [place] [address]Result Comment: Estimated Glomerular Filtration Rate (eGFR) is calculated using the 2020 CKD-EPI cre atinine equation. This equation utilizes serum creatinine, sex, and age as parameters. The creatinine assay has traceable calibration to isotope dilution- mass spectrometry. Refer to KDIGO guidelines for clinical interpretation. In patients with unstable renal function, e.g. those with acute kidney injury, the eGFR may not accurately reflect actual GFR.Performed By: #### S #### [facility] [place] [id number] [address] [place] [address] LAB CLIA [id number] [address] [place] [address] [place] AMERICAGlucose [Mass/Vol]119 mg/dL Yiow15-55Wwvsxzzo HospitalComment on above:Order Comment: Specimen Type: TISSUE SPECIMEN [facility] Address: [address] [place], [place] [id number] Comment: The [place] Diabetes [employer] (ADA) provides guidance for cutoff [...] Standards of Medical Care in Diabetes 2016, [place] [employer]. Diabetes Care. 2016.39(Suppl 1).Performed By: #### S #### [facility] CLIA [id number] [address] [place] [address] STATES [place] [facility] CLIA [id number] [address] [place] [address] [place] AMERICAPotassium [Moles/Vol]4.0 mmol/LNormal3.7-5.1Fcharlton memorial hospital HospitalComment on above:Order Comment: Specimen Type: TISSUE SPECIMEN [facility] Address: [address] [place], [place] [address]Performed By: #### S #### [facility] CLIA [id number] [address] [place] [address] [place] [facility] CLIA [id number] [address] [place] [address] STATES OF AMERICASodium [Moles/Vol]139 mmol/L Cqdnrv046-901Vbmksepl HospitalComment on above:Order Comment: Specimen Type: TISSUE SPECIMEN [facility] Address: [address] [place], [place] [address]Performed By: #### S #### [facility] CLIA [id number] [address] [place] [address] STATES [place] [facility] CLIA [id number] [id number], [place] [address] [place] AMERICAUrea nitrogen [Mass/Vol]19 mg/dLNormal9-24Fabaystate mary lane hospital HospitalComment on above:Order Comment: Specimen Type: TISSUE SPECIMEN [facility] Address: [address] [place], [place] [address]Performed By: #### S #### [facility] CLIA [id number] [address] [place] [address] [place] [facility] CLIA [id number] [address] [place] [address] [place] AMERICACB W Auto Differential panel (Bld)on 73-07-6948Jqwbkhzdt (Bld) [#/Vol]10*3/uLNormal<0.11[place] HospitalComment on above:Order Comment: Specimen Type: TISSUE SPECIMEN [facility] Address: [address] [place], [place] [address]Performed By: #### S #### [facility] CLIA [id number] [address] [place] [address] [place] [facility] CLIA [id number] [address] [place] [address] [place] AMERICABasophils/100 WBC (Bld)0.2 % NormalNulato HospitalComment on above:Order Comment: Specimen Type: TISSUE SPECIMEN [facility] Address: [address] [place], [place] [address]Performed By: #### S #### [facility] CLIA [id number] [address] [place] [address] [place] [facility] CLIA [id number] [address] [place] [address] [place] AMERICADifferential cell count method Nom (Bld)AutoNormalNulato HospitalComment on above:Order Comment: Specimen Type: TISSUE SPECIMEN [facility] Address: [address] [place], [place] [address]Performed By: #### S #### [facility] CLIA [id number] [address] [place] [address] [place] [facility] CLIA [id number] [address] [place] [address] [place] AMERICAEosinophils (Bld) [#/Vol] 0.07 10*3/uLNormal<0.46Fabaystate mary lane hospital HospitalComment on above:Order Comment: Specimen Type: TISSUE SPECIMEN [facility] Address: [address] [place], [place] [address]Performed By: #### S #### [facility] CLIA [id number] [address] [place] [address] [place] [facility] CLIA [id number] [address] [place] [address] [place] AMERICAEosinophils/100 WBC (Bld)0.6 %NormalNulato HospitalComment on above:Order Comment: Specimen Type: TISSUE SPECIMEN [facility] Address: [address] [place], [place] [address]Performed By: #### S #### [facility] CLIA [id number] [address] [place] [address] [place] [facility] CLIA [id number] [address] [place] [address] [place] AMERICAErythrocyte distribution width (RBC) [Ratio]15.9 %High11.5-15.0Fabaystate mary lane hospital HospitalComment on above:Order Comment: Specimen Type: TISSUE SPECIMEN [facility] Address: [address] [place], [place] [address]Performed By: #### S #### [facility] CLIA [id number] [address] [place] [address] [place] [facility] CLIA [id number] [address] [place] [address] [place] AMERICAHematocrit (Bld) [Volume fraction]23.5 %Low39.0-51.0Fabaystate mary lane hospital HospitalComment on above:Order Comment: Specimen Type: TISSUE SPECIMEN [facility] Address: [address] [place], [place] [address]Performed By: #### S #### [facility] CLIA [id number] [address] [place] [address] [place] [facility] CLIA [id number] [address] [place] [address] [place] AMERICAHemoglobin (Bld) [Mass/Vol] 7.1 g/dLLow13.0-17.0N[place] HospitalComment on above:Order Comment: Specimen Type: TISSUE SPECIMEN [facility] Address: [address] [place], [place] [address]Performed By: #### S #### [facility] CLIA [id number] [address] [place] [address] [place] [facility] CLIA [id number] [address] [place] [address] [place] AMERICAImmature granulocytes (Bld) [#/Vol]0.07 10*3/uLNormal<0.10Longwood HospitalComment on above:Order Comment: Specimen Type: TISSUE SPECIMEN [facility] Address: [address] [place], [place] [address]Performed By: #### S #### [facility] CLIA [id number] [address] [place] [address] [place] [facility] CLIA [id number] [address] [place] [address] [place] AMERICAImmature granulocytes/100 WBC (Bld)0.6 %NormalFabaystate mary lane hospital HospitalComment on above:Order Comment: Specimen Type: TISSUE SPECIMEN [facility] Address: [address] [place], [place] [address]Performed By: #### S #### [facility] CLIA [id number] [address] [place] [address] [place] [facility] CLIA [id number] [address] [place] [address] [place] AMERICALymphocytes (Bld) [#/Vol] 1.13 10*3/uLNormal1.00-4.00[place] HospitalComment on above:Order Comment: Specimen Type: TISSUE SPECIMEN [facility] Address: [address] [place], [place] [address]Performed By: #### S #### [facility] CLIA [id number] [address] [place] [address] LAB CLIA [id number] [address] [place] [address] [place] AMERICALymphocytes/100 WBC (Bld) 10.0 %NormalFabaystate mary lane hospital HospitalComment on above:Order Comment: Specimen Type: TISSUE SPECIMEN [facility] Address: [address] [place], [place] [address]Performed By: #### S #### [facility] CLIA [id number] [address] [place] [address] STATES OF [facility] CLIA [id number] [address] [place] [address] STATES OF AMERICAMCH (RBC) [Entitic mass]26.2 lsUrezky31.0-34.0Fabaystate mary lane hospital HospitalComment on above:Order Comment: Specimen Type: TISSUE SPECIMEN [facility] Address: [address] [place], [place] [address]Performed By: #### S #### [facility] CLIA [id number] [address] [place] [address] STATES OF [facility] CLIA [id number] [address] [place] [address] [place] AMERICAHC (RBC) [Mass/Vol]30.2 g/dLLow30.5-36.0[place] HospitalComment on above:Order Comment: Specimen Type: TISSUE SPECIMEN [facility] Address: [address] [place], [place] [address]Performed By: #### S #### [facility] CLIA [id number] [address] [place] [address] [place] [facility] CLIA [id number] [address] [place] [address] [place] AMERICAMCV (RBC) [Entitic vol]86.7 oRCpivmp03.0-100.0Fabaystate mary lane hospital HospitalComment on above:Order Comment: Specimen Type: TISSUE SPECIMEN [facility] Address: [address] [place], [place] [address]Performed By: #### S #### [facility] CLIA [id number] [address] [place] [address] [place] [facility] CLIA [id number] [address] [place] [address] [place] AMERICAMonocytes (Bld) [#/Vol]0.98 10*3/uLHigh<0.87Fabaystate mary lane [facility] HospitalComment on above:Order Comment: Specimen Type: TISSUE SPECIMEN [facility] Address: [address] [place], [place] [address]Performed By: #### S #### [facility] CLIA [id number] [address] [place] [address] [place] [facility] CLIA [id number] [address] [place] [address] [place] AMERICAMonocytes/100 WBC (Bld)8.7 % NormalFabaystate mary lane hospital HospitalComment on above:Order Comment: Specimen Type: TISSUE SPECIMEN [facility] Address: [address] [place], [place] [address]Performed By: #### S #### [facility] CLIA [id number] [address] [place] [address] [place] [facility] CLIA [id number] [address] [place] [address] [place] AMERICANeutrophils (Bld) [#/Vol] 9.02 10*3/uLHigh1.45-7.50Fabaystate m[facility] HospitalComment on above:Order Comment: Specimen Type: TISSUE SPECIMEN [facility] Address: [address] [place], [place] [address]Performed By: #### S #### [facility] CLIA [id number] [address] [place] [address] [place] [facility] CLIA [id number] [address] [place] [address] [place] AMERICANeutrophils/100 WBC (Bld) 79.9 %NormalFabaystate mary lane hospital HospitalComment on above:Order Comment: Specimen Type: TISSUE SPECIMEN [facility] Address: [address] [place], [place] [address]Performed By: #### S #### [facility] IA [id number] [address] [place] [address] [place] [facility] CLIA [id number] [address] [place] [address] [place] AMERICANucleated RBC (Bld) [#/Vol] 10*3/uLNormal<0.01[place] HospitalComment on above:Order Comment: Specimen Type: TISSUE SPECIMEN [facility] Address: [address] [place], [place] [address]Performed By: #### S #### [facility] IA [id number] [address] [place] [address] [place] [facility] CLIA [id number] [address] [place] [address] [place] AMERICANucleated RBC/100 WBC (Bld) [Ratio]0.0 /100 WBCNormalNulato HospitalComment on above:Order Comment: Specimen Type: TISSUE SPECIMEN [facility] Address: [address] [place], [place] [address]Performed By: #### S #### [facility] CLIA [id number] [address] [place] [address] [place] [facility] CLIA [id number] [address] [place] [address] [place] OF AMERICAPlatelet mean volume (Bld) [Entitic vol]9.7 fLNormal9.0-12.7Fcharlton [facility] hospital HospitalComment on above:Order Comment: Specimen Type: TISSUE SPECIMEN [facility] Address: [address] [place], [place] [address]Performed By: #### S #### [facility] CLIA [id number] [address] [place] [address] STATES OF [facility] CLIA [id number] [address] [place] [address] [place] AMERICAPlatelets (Bld) [#/Vol]299 10*3/dFOszlyk291-888Fihhkqkj HospitalComment on above:Order Comment: Specimen Type: TISSUE SPECIMEN [facility] Address: [address] [place], [place] [address]Performed By: #### S #### [facility] CLIA [id number] [address] [place] [address] [place] [facility] CLIA [id number] [address] [place] [address] STATES OF AMERICARBC (Bld) [#/Vol]2.71 10*6/uLLow4.20-6.00Fabay[facility] HospitalComment on above:Order Comment: Specimen Type: TISSUE SPECIMEN [facility] Address: [address] [place], [place] [address]Performed By: #### S #### [facility] CLIA [id number] [address] [place] [address] [place] [facility] CLIA [id number] [address] [place] [address] STATES OF AMERICAWBC (Bld) [#/Vol]11.29 10*3/uLHigh3.70-11.00Fabay[facility] HospitalComment on above:Order Comment: Specimen Type: TISSUE SPECIMEN [facility] Address: [address] [place], [place] [address]Performed By: #### S #### [facility] CLIA [id number] [address] [place], [place] [address] [place] [facility] CLIA [id number] [address] [facility] DESK [id number] [place], [place] [address]CBC panel Auto (Bld)on 31-02-6308Ongbhjcxbua distribution width (RBC) [Ratio]15.9 %High11.5-15.0 [place] HospitalComment on above:Order Comment: Specimen Type: BLOOD SPECIMENOrdering Facility: [facility] Address:[address] [place], [place] [address]Performed By: #### 06887-0 ####[facility] LABORATORYCLIA [id number] [place] [id number] [place] [facility] Hematocrit (Bld) [Volume fraction]27.6 %Low39.0-51.0Fabay[facility] HospitalComment on above:Order Comment: Specimen Type: BLOOD SPECIMENOrdering Facility: [facility] Address:[address] [place], [place] [address]Performed By: #### 43190-3 ####[facility] LABORATORYCLIA [id number] [place] [id number] [facility]ENTERHemoglobin (Bld) [Mass/Vol]8.4 g/dLLow13.0-17.0 [place] HospitalComment on above:Order Comment: Specimen Type: BLOOD SPECIMENOrdering Facility: [facility] Address:[address] [place], [place] [address]Performed By: #### 19699-9 ####[facility] LABORATORYCLIA [id number] [place] [id number] [facility] (RBC) [Entitic mass]26.3 acUsufdd95.0-34.0Fabaystate [facility] HospitalComment on above: Order Comment: Specimen Type: BLOOD SPECIMENOrdering Facility: [facility] Address:[address] [place], [place] [address]Performed By: #### 53464- 2 ####[facility] LABORATORYCLIA [id number] [place] [id number] [facility] (RBC) [Mass/Vol]30.4 g/dLLow30.5-36.0Fabay[facility] HospitalComment on above:Order Comment: Specimen Type: BLOOD SPECIMENOrdering Facility: [facility] Address:[address] [place], [place] [address]Performed By: #### 75289-1 ####[facility] LABORATORYCLIA [id number] [address] STATES OF [facility] HOSPITALMCV (RBC) [Entitic vol] 86.5 gHWptshh21.0-100.0Fabay[facility] HospitalComment on above:Order Comment: Specimen Type: BLOOD SPECIMENOrdering Facility: [facility] Address:[address] [place], [place] [address]Performed By: #### 82291-7 ####[facility] LABORATORYCLIA [id number] [address]ETucleated RBC (Bld) [#/Vol]10*3/uLNormal<0.01Fabay[facility] HospitalComment on above:Order Comment: Specimen Type: BLOOD SPECIMENOrdering Facility: [facility] Address:[address] [place], [place] [address]Performed By: #### 32404-2 ####[facility] LABORATORYCLIA [id number] [address]ETPlatelet mean volume (Bld) [Entitic vol]9.2 fL Normal9.0-12.7Fcharlton memorial hospital HospitalComment on above:Order Comment: Specimen Type: BLOOD SPECIMENOrdering Facility: [facility] Address:[address] [place], [place] [address]Performed By: #### 14438-4 ####[facility] LABORATORYCLIA [id number] [place] [id number] [facility] Platelets (Bld) [#/Vol]382 10*3/lKXhwzio321-125Ukdaqfkx HospitalComment on above:Order Comment: Specimen Type: BLOOD SPECIMENOrdering Facility: [facility] Address:[address] [place], [place] [address]Performed By: #### 18401-7 ####[facility] LABORATORYCLIA [id number] [place] [address] [place] AMERICARBC (Bld) [#/Vol]3.19 10*6/uLLow4.20-6.00Fabay[facility] HospitalComment on above:Order Comment: Specimen Type: BLOOD SPECIMENOrdering Facility: [facility] Address:[address] [place], [place] [address]Performed By: #### 62329-0 ####[facility] LABORATORYCLIA [id number] [place] [address] [place] OF AMERICAWBC (Bld) [#/Vol]12.88 10*3/uLHigh3.70-11.00FaWestover Air Force Base HospitalComment on above:Order Comment: Specimen Type: BLOOD SPECIMENOrdering Facility: [facility] Address:[address] [place], [place] [address]Performed By: #### 66943-1 ####[facility] LABORATORYCLIA [id number] [place] [address] [place] AMERICAMagnesium SerPl-mCncon 10-66-4676Dmaptqiyn [Mass/Vol]1.9 mg/dLNormal 1.7-2.3Fcharlton memorial hospital HospitalComment on above:Order Comment: Specimen Type: TISSUE SPECIMEN [facility] Address: [address] [place], [place] [address]Performed By: #### S #### [facility] CLIA [id number] [place] [address] [place] [facility] CLIA [id number] [address] [place], [place] [address] [address] [place] OF AMERICABasic metabolic 2000 panelon 85-18-5638Uazyq gap [Moles/Vol]11 mmol/LNormal8-15Fabay[facility] HospitalComment on above:Order Comment: Specimen Type: BLOOD SPECIMENOrdering Facility: [facility] Address:[address] [place], [place] [address]Performed By: #### 09053-8, 79433-1 ####[facility] LABORATORYCLIA [id number] [place] [address] [place] AMERICACalcium [Mass/Vol]8.3 mg/dLLow 8.5-10.2Fcharlton memorial hospital HospitalComment on above:Order Comment: Specimen Type: BLOOD SPECIMENOrdering Facility: [facility] Address:[address] [place], [place] [address]Performed By: #### 19211-7, ####[facility] LABORATORYCLIA [id number] [place] [id number] [place] OF AMERICAChloride [Moles/Vol]104 mmol/LBbxdbs76-245Jpmbltxb HospitalComment on above:Order Comment: Specimen Type: BLOOD SPECIMENOrdering Facility: [facility] Address:[address] [place], [place] [address]Performed By: #### 14725-2, ####[facility] LABORATORYCLIA [id number] [place] [id number] [place] AMERICACO2 [Moles/Vol]22 mmol/LNormal 22-30[place] HospitalComment on above:Order Comment: Specimen Type: BLOOD SPECIMENOrdering Facility: [facility] Address:[address] [place], [place] [address]Performed By: #### 39233-3, ####[facility] LABORATORYCLIA [id number] [place] [id number] [place] AMERICACreatinine [Mass/Vol]0.92 mg/dLNormal0.73-1.22[place] HospitalComment on above:Order Comment: Specimen Type: BLOOD SPECIMENOrdering Facility: [facility] Address:[address] [place] [address] Performed By: #### 25285-2, ####[facility] LABORATORYCLIA [id number] [place] [id number] [place] AMERICACreatinine and Glomerular filtration rate.predicted panel (S/P/Bld)92 mL/min/1.73m???Normal>=60 [facility] Hospitalment on above:Order Comment: Specimen Type: BLOOD SPECIMENOrdering Facility: [facility] Address:[address] [place], [place] [address]Vuxrfr Comment: Estimated Glomerular Filtration Rate (eGFR) is calculated using the 2020 CKD-EPI creatinine equation. This equation utilizes serum creatinine, sex, and age as parameters. The creatinine assay has traceable calibration to isotope dilution-mass spectrometry. Refer to KDIGO guidelines for clinical interpretation. In patients with unstable renal function, e.g. those with acute kidney injury, the eGFR may not accurately reflect actual GFR.Performed By: #### 95213-4, ####[facility] LABORATORYCLIA [id number] [place] [id number] [place] AMERICAGlucose [Mass/Vol]153 mg/pELciz94-30Wldkcxjh HospitalComment on above: Order Comment: Specimen Type: BLOOD SPECIMENOrdering Facility: [facility] Address:[address] [place] [id number] Comment: The [place] Diabetes [employer] (ADA) provides guidance for cutoff values for fast ing glucose and random glucose. The ADA defines [...] Standards of Medical Care in Diabetes 2016, [employer] [place] [employer]. Diabetes Care. 2016.39(Suppl 1).Performed By: #### 39252-9, ####[facility] LABORATORYCLIA [id number] [place] [address] [place] AMERICAPotassium [Moles/Vol]4.2 mmol/LNormal3.7-5.1FWorcester State HospitalComment on above:Order Comment: Specimen Type: BLOOD SPECIMENOrdering Facility: [facility] Address:[address] [place] [id number] By: #### 25840-1, ####[facility] LABORATORYCLIA [id number] [place] [id number] [place] OF TUSCARAWAS HOSPITALSodium [Moles/Vol]137 mmol/KGdvomc642-279Rizswjps HospitalComment on above:Order Comment: Specimen Type: BLOOD SPECIMENOrdering Facility: [facility] Address:[address] [place], [place] [address]Performed By: #### 59326- 2, ####[facility] LABORATORYCLIA [id number] [place] [id number] [place] AMERICAUrea nitrogen [Mass/Vol]17 mg/dLNormal9-24 [place] HospitalComment on above:Order Comment: Specimen Type: BLOOD SPECIMENOrdering Facility: [facility] Address:[address] [place], [place] [address]Performed By: #### 44319-7, ####[facility] LABORATORYCLIA [id number] [place] [address] [place] AMERICACB W Auto Differential panel (Bld)on 33-17-1699Kbxhlntck (Bld) [#/Vol] 10*3/uLNormal<0.11[place] HospitalComment on above:Order Comment: Specimen Type: TISSUE SPECIMEN [facility] Address: [address] [place], [place] [address]Performed By: #### S #### [facility] CLIA [id number] [address] [place] [address] [place] [facility] CLIA [id number] [address] [place] [address] [place] AMERICABasophils/100 WBC (Bld)0.1 % NormalFaWestover Air Force Base HospitalComment on above:Order Comment: Specimen Type: TISSUE SPECIMEN [facility] Address: [address] [place], [place] [address]Performed By: #### S #### [facility] CLIA [id number] [place] [address] [place] [facility] CLIA [id number] [address] [place] [address] [place] AMERICADifferential cell count method Nom (Bld)AutoNormalNulato HospitalComment on above:Order Comment: Specimen Type: TISSUE SPECIMEN [facility] Address: [address] [place], [place] [address]Performed By: #### S #### [facility] CLIA [id number] [address] [place] [address] [place] [facility] CLIA [id number] [address] [place] [address] [place] AMERICAEosinophils (Bld) [#/Vol] 10*3/uLNormal<0.46Fabay[facility] HospitalComment on above:Order Comment: Specimen Type: TISSUE SPECIMEN [facility] Address: [address] [place], [place] [address]Performed By: #### S #### [facility] CLIA [id number] [address] [place] [address] [place] [facility] CLIA [id number] [address] [place] [address] [place] AMERICAEosinophils/100 WBC (Bld)0.0 %NormalNulato HospitalComment on above:Order Comment: Specimen Type: TISSUE SPECIMEN [facility] Address: [address] [place], [place] [address]Performed By: #### S #### [facility] CLIA [id number] [address] [place] [address] [place] [facility] CLIA [id number] [address] [place] [address] [place] AMERICAErythrocyte distribution width (RBC) [Ratio]15.0 %Yxhhpo25.5-15.0[place] HospitalComment on above:Order Comment: Specimen Type: TISSUE SPECIMEN [facility] Address: [address] [place], [place] [address]Performed By: #### S #### [facility] CLIA [id number] [address] [place] [address] [place] [facility] CLIA [id number] [address] [place] [address] [place] AMERICAHematocrit (Bld) [Volume fraction]24.4 %Low39.0-51.0[facility] HospitalComment on above:Order Comment: Specimen Type: TISSUE SPECIMEN [facility] Address: [address] [place], [place] [address]Performed By: #### S #### [facility] CLIA [id number] [address] [place] [address] OF [facility] CLIA [id number] [address] [place] [address] [place] AMERICAHemoglobin (Bld) [Mass/Vol] 7.7 g/dLLow13.0-17.0[place] HospitalComment on above:Order Comment: Specimen Type: TISSUE SPECIMEN [facility] Address: [address] [place], [place] [address]Performed By: #### S #### [facility] [place] [id number] [address] [place] [address] OF [facility] CLIA [id number] [address] [place] [address] [place] AMERICAImmature granulocytes (Bld) [#/Vol]0.06 10*3/uLNormal<0.10[place] HospitalComment on above:Order Comment: Specimen Type: TISSUE SPECIMEN [facility] Address: [address] [place], [place] [address]Performed By: #### S #### [facility] [place] [id number] [address] [place] [address] OF [facility] CLIA [id number] [address] [place] [address] [place] AMERICAImmature granulocytes/100 WBC (Bld)0.5 %NormalFabaystate mary lane hospital HospitalComment on above:Order Comment: Specimen Type: TISSUE SPECIMEN [facility] Address: [address] [place], [place] [address]Performed By: #### S #### [facility] CLIA [id number] [address] [place] [address] LAB CLIA [id number] [address] [place] [address] [place] TUSCARAW[facility] HOSPITALLymphocytes (Bld) [#/Vol] 0.45 10*3/uLLow1.00-4.00[place] HospitalComment on above:Order Comment: Specimen Type: TISSUE SPECIMEN [facility] Address: [address] [place], [place] [address]Performed By: #### S #### [facility] CLIA [id number] [address] [place] [address] LAB CLIA [id number] [address] [place] [address] [place] AMERICALymphocytes/100 WBC (Bld)3.7 %NormalFabaystate mary lane hospital HospitalComment on above:Order Comment: Specimen Type: TISSUE SPECIMEN [facility] Address: [address] [place], [place] [address]Performed By: #### S #### [facility] [place] [id number] [address] [place] [address] LAB CLIA [id number] [address] [place] [address] [place] TUSCARAWAS HOSPITALMCH (RBC) [Entitic mass]26.6 ruCitquh63.0-34.0Fabaystate [facility] HospitalComment on above:Order Comment: Specimen Type: TISSUE SPECIMEN [facility] Address: [address] [place], [place] [address]Performed By: #### S #### [facility] CLIA [id number] [address] [place] [address] STATES OF [facility] CLIA [id number] [address] [place] [address] STATES OF AMERICAMCHC (RBC) [Mass/Vol]31.6 g/rCOyaerl06.5-36.0Fabay[facility] HospitalComment on above:Order Comment: Specimen Type: TISSUE SPECIMEN [facility] Address: [address] [place], [place] [address]Performed By: #### S #### [facility] CLIA [id number] [address] [place] [address] [place] OF [facility] CLIA [id number] [address] [place] [address] [place] TUSCARAWAS HOSPITALMCV (RBC) [Entitic vol]84.4 uQEaywqf34.0-100.0Fabaystate [facility] HospitalComment on above:Order Comment: Specimen Type: TISSUE SPECIMEN [facility] Address: [address] [place], [place] [address]Performed By: #### S #### [facility] CLIA [id number] [address] [place] [address] [place] [facility] CLIA [id number] [address] [place] [address] [place] AMERICAMonocytes (Bld) [#/Vol]0.92 10*3/uLHigh<0.87[place] HospitalComment on above:Order Comment: Specimen Type: TISSUE SPECIMEN [facility] Address: [address] [place], [place] [address]Performed By: #### S #### [facility] CLIA [id number] [address] [place] [address] [place] [facility] CLIA [id number] [address] [place] [address] [place] AMERICAMonocytes/100 WBC (Bld)7.6 % NormalFabaystate mary lane hospital HospitalComment on above:Order Comment: Specimen Type: TISSUE SPECIMEN [facility] Address: [address] [place], [place] [address]Performed By: #### S #### [facility] CLIA [id number] [address] [place] [address] [place] [facility] CLIA [id number] [address] [place] [address] [place] AMERICANeutrophils (Bld) [#/Vol] 10.69 10*3/uLHigh1.45-7.50[place] HospitalComment on above:Order Comment: Specimen Type: TISSUE SPECIMEN [facility] Address: [address] [place], [place] [address]Performed By: #### S #### [facility] CLIA [id number] [address] [place] [address] [place] [facility] CLIA [id number] [address] [place] [address] [place] AMERICANeutrophils/100 WBC (Bld) 88.1 %NormalFabaystate mary lane hospital HospitalComment on above:Order Comment: Specimen Type: TISSUE SPECIMEN [facility] Address: [address] [place], [place] [address]Performed By: #### S #### [facility] [place] [id number] [address] [place] [address] [place] [facility] CLIA [id number] [address] [place] [address] [place] AMERICANucleated RBC (Bld) [#/Vol] 10*3/uLNormal<0.01[place] HospitalComment on above:Order Comment: Specimen Type: TISSUE SPECIMEN [facility] Address: [address] [place], [place] [address]Performed By: #### S #### [facility] [place] [id number] [address] [place] [address] [place] [facility] CLIA [id number] [address] [place] [address] [place] AMERICANucleated RBC/100 WBC (Bld) [Ratio]0.0 /100 WBCNormalNulato HospitalComment on above:Order Comment: Specimen Type: TISSUE SPECIMEN [facility] Address: [address] [place], [place] [address]Performed By: #### S #### [facility] CLIA [id number] [address] [place] [address] [place] [facility] CLIA [id number] [address] [place] [address] [place] AMERICAPlatelet mean volume (Bld) [Entitic vol]9.5 fLNormal9.0-12.7Fcharlton memorial hospital HospitalComment on above:Order Comment: Specimen Type: TISSUE SPECIMEN [facility] Address: [address] [place], [place] [address]Performed By: #### S #### [facility] CLIA [id number] [address] [place] [address] [place] [facility] CLIA [id number] [address] [place] [address] [place] AMERICAPlatelets (Bld) [#/Vol]291 10*3/oKZwzdan281-376Gpkaaums HospitalComment on above:Order Comment: Specimen Type: TISSUE SPECIMEN [facility] Address: [address] [place], [place] [address]Performed By: #### S #### [facility] CLIA [id number] [address] [place] [address] [place] [facility] CLIA [id number] [address] [place] [address] [place] AMERICARBC (Bld) [#/Vol]2.89 10*6/uLLow4.20-6.00Fabaystate [facility] HospitalComment on above:Order Comment: Specimen Type: TISSUE SPECIMEN [facility] Address: [address] [place], [place] [address]Performed By: #### S #### [facility] CLIA [id number] [address] [place] [address] [place] [facility] CLIA [id number] [address] [place] [address] [place] AMERICAWBC (Bld) [#/Vol]12.13 10*3/uLHigh3.70-11.00Fabaystate [facility] HospitalComment on above:Order Comment: Specimen Type: TISSUE SPECIMEN [facility] Address: [address] [place], [place] [address]Performed By: #### S #### [facility] CLIA [id number] [address] [place] [address] [place] [facility] CLIA [id number] [address] [facility] DESK [id number] [place], [place] [address] [facility]CARAW[facility] HOSPITALCBC panel Auto (Bld)on 60-68-6538Vfztvtfmqee distribution width (RBC) [Ratio]15.4 %High11.5-15.0 [place] HospitalComment on above:Order Comment: Specimen Type: BLOOD SPECIMENOrdering Facility: [facility] Address:[address] [place], [place] [address]Performed By: #### 80858-6 ####[facility] LABORATORYCLIA [id number] [place] [address] [place] Hematocrit (Bld) [Volume fraction]26.3 %Low39.0-51.0Fabaystate mary lane [facility] HospitalComment on above:Order Comment: Specimen Type: BLOOD SPECIMENOrdering Facility: [facility] Address:[address] [place], [place] [address]Performed By: #### 26566-1 ####[facility] LABORATORYCLIA [id number] [place] [id number] [place] TUSCARAWAS HOSPITALHemoglobin (Bld) [Mass/Vol]8.3 g/dLLow13.0-17.0 [place] HospitalComment on above:Order Comment: Specimen Type: BLOOD SPECIMENOrdering Facility: [facility] Address:[address] [place], [place] [address]Performed By: #### 35165-2 ####DEVIN LABORATORYCLIA [id number] [place] [id number] [place] AMERICAMCH (RBC) [Entitic mass]26.6 ofTxanvy50.0-34.0Fabaystate [facility] HospitalComment on above: Order Comment: Specimen Type: BLOOD SPECIMENOrdering Facility: [facility] Address:[address] [place], [place] [address]Performed By: #### 69207- 2 ####DEVIN LABORATORYCLIA [id number] [place] [id number] [facility]ENTERHC (RBC) [Mass/Vol]31.6 g/hVUcingf80.5-36.0[facility]ay[facility] HospitalComment on above:Order Comment: Specimen Type: BLOOD SPECIMENOrdering Facility: [facility] Address:[address] [place], [place] [address]Performed By: #### 02009-1 ####DEVIN LABORATORYCLIA [id number] [place] [id number] [facility] CENTERMCV (RBC) [Entitic vol] 84.3 fAMjxjra59.0-100.0Fabay[facility] HospitalComment on above:Order Comment: Specimen Type: BLOOD SPECIMENOrdering Facility: [facility] Address:[address] [place], [place] [address]Performed By: #### 47920-3 ####DEVIN LABORATORYCLIA [id number] [place] [id number] [facility] CENTERucleated RBC (Bld) [#/Vol]10*3/uLNormal<0.01Fabaystate [facility] HospitalComment on above:Order Comment: Specimen Type: BLOOD SPECIMENOrdering Facility: [facility] Address:[address] [place], [place] [address]Performed By: #### 26127-5 ####[facility] LABORATORYCLIA [id number] [place] [id number] [facility] MEDICAL CENTERPlatelet mean volume (Bld) [Entitic vol]9.5 fL Normal9.0-12.7Fcharlton memorial hospital HospitalComment on above:Order Comment: Specimen Type: BLOOD SPECIMENOrdering Facility: [facility] Address:[address] [place], [place] [address]Performed By: #### 00817-2 ####DEVIN LABORATORYCLIA [id number] [place] [address] [place] Platelets (Bld) [#/Vol]382 10*3/eRVcsskj759-460Onklhghx HospitalComment on above:Order Comment: Specimen Type: BLOOD SPECIMENOrdering Facility: [facility] Address:[address] [place], [place] [address]Performed By: #### 71852-9 ####DEVIN LABORATORYCLIA [id number] [place] [address] [facility] AMERICARBC (Bld) [#/Vol]3.12 10*6/uLLow4.20-6.00[place] HospitalComment on above:Order Comment: Specimen Type: BLOOD SPECIMENOrdering Facility: [facility] Address:[address] [place], [place] [address]Performed By: #### 07797-0 ####DEVIN LABORATORYCLIA [id number] [place] [address] [facility] AMERICAWBC (Bld) [#/Vol]17.27 10*3/uLHigh3.70-11.00[place] HospitalComment on above:Order Comment: Specimen Type: BLOOD SPECIMENOrdering Facility: [facility] Address:[address] [place], [place] [address]Performed By: #### 44265-6 ####DEVIN LABORATORYCLIA [id number] [place] [address] [facility]ORS' HOSPITALMagnesium SerPl-mCncon 12-12-9407Vqrdxqltk [Mass/Vol]1.4 mg/dLLow1.7-2.3 [place] HospitalComment on above:Order Comment: Specimen Type: BLOOD SPECIMENOrdering Facility: [facility] Address:[address] [place], [place] [address]Performed By: #### 01993-0, 91424-3 ####DEVIN LABORATORYCLIA [id number] [place] [address] [facility]ENTERURSING PROGon 12-16-0563BYYNGUZ PROGHNO ID: [id number] Author: LUI NGO RN Service: Nursing Author Type: Registered Nurse Type: Nursing Progress Note Filed: 05/14/2024 02:19 Note Text: 213: pt AANDOx3. C/o 3/10 pain to abdomen. Denies nausea at this time. No flatus since surgery. Tolerating ice chips and popsicles. Midline and lap sites SHREDDER PICKER with glue. 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 Perez draining keith urine. A-fib on telemetry. Lungs diminished on RA. 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) Comments: Sig Other works FT Entry To [...] Muscle Weakness (generalized) TREATMENT INTERVENTIONS Evaluation, Self Correction Management (92042) Timed Code Treatment (minutes): 10 Skilled Treatment Time (minutes): 25 TRAINING AND EDUCATION PROVIDED Activity Adaptation/Compensatory Strategies, Adaptive Equipment/DME, Assistive Device Use, Bed Mobility, Benefits of In-Hospital Mobility, Discharge Planning, Disease Specific Education, Energy Conservation, Expected Functional Level, Precautions/Restrictions, Role of Occupational Therapy, Positioning, Safety/Judgment, Standing Balance to Improve Stafford with ADLs/Self-Care, Transfer - Bed to Chair, [...] Training, Fall Prevention, Energy Conservation SIGNATURE: LAURA Sosa/L PATIENT NAME: Ayo Alicia DATE: May 14, 2024 TIME: 10:51 [facility] NTHNO ID: [id number] Author: ONEYDA EDWARDS PT Service: Physical Therapy Author Type: Physical Therapist Type: Therapy (PT/OT/Speech/Resp) Filed: 05/14/2024 09:57 Note Text: Physical Therapy Evaluation Summary SERVICE DATE: 05/14/2024 SERVICE TIME: 904 to 930 ROOM: [place] [address] PT 6 Clicks Score: 21 DISCHARGE RECOMMENDATIONS [...] Significant Other Assistance 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) Entry To Home: Stairs, With Rail Number [...] and signs-other TREATMENT INTERVENTIONS Evaluation, Gait Training (76481) Timed Code Treatment (minutes): 11 Skilled Treatment Time (minutes): 26 TRAINING AND EDUCATION PROVIDED Bed Mobility, Benefits of In-Hospital Mobility, Anatomy and Impact on Deficits, Gait Pattern, Reduction of Deviations, Falls Prevention, Expected Functional Level, Home Safety, Precautions/Restrictions, Role of Physical Therapy, Transfers, Standing Balance [...] By Assistance Gait Device: Wheeled Walker General Deviations/Observations: Eduarda decreased, Step length decreased (cues for [...] SIGNATURE: Oneyda Edwards PT PATIENT NAME: Ayo Alicia DATE: May 14, 2024 TIME: 9:57 [facility] POSTPROC EVALon 24-68-3038MBUG POSTPROC EVALHNO ID: [id number] Author: ORLANDO TINSLEY MD Service: Anesthesiology Author Type: Anesthesiologist Type: Anesthesia Postprocedure Evaluation Filed: 05/13/2024 12:03 Note Text: POST ANESTHESIA EVALUATION NOTE : 1960 Procedure Summary Date: 05/13/24 Room / Location: [place] [address] / OR Anesthesia Start: 742 Anesthesia Stop: [...] May 13, 2024 TIME: 12:03 PM CSN: [id number] Home PRE-OPon 60-26-3205DIUT PRE-OPHNO ID: [id number] Author: ORLANDO TINSLEY MD Service: Anesthesiology Author [...] and consent discussed: yes. Patient / Responsible Republican agrees to proceed: yes Patient / Surrogate agrees to blood products: Yes Potential Anesthesia issues that may suggest increased risk of complications or contraindication to planned procedure: none. Vitals Value Taken Time BP 136/65 05/13/24656 Pulse Resp 18 05/13/24656 Temp 36.4 ?C (97.5 ?F) 05/13/24656 SpO2 98 % 05/13/24656 Facility-Administered Medications as of 05/13/2024 Medication Dose [...] May 13, 2024 TIME: 7:27 AM CSN: [id number] [facility] NOTon 05-13-2024 BRIEF OP NOTHNO ID: [id number] Author: JOSE J JOHNS MD Service: Colorectal Author Type: Resident Type: Brief Op Note Filed: 05/13/2024 10:56 Note Text: DDSI BRIEF OP NOTE LOG ID: [id number] SURGERY/PROCEDURE DATE: 05/13/2024 INCISION/PROCEDURE START TIME: 8:27 AM INCISION CLOSE/PROCEDURE END TIME: 10:28 AM SURGEON(S)/PROCEDURALIST(S) AND SUBSTATION OPERATOR TRANSFORMING(S): Surgeons and Role: * Cuba Haywood MD [...] Jose J Johns MD PATIENT NAME: Ayo Rodriguez Withem DATE: May 13, 2024 TIME: 10:49 AM PAGER/CONTACT #:[facility] 05-13-2024 [facility] ID: [id number] Author: RENEE CAICEDO RN Service: ? Author Type: Registered Nurse Type: Nursing Progress Note Filed: 05/13/2024 13:40 Note Text: Transfer Note: PATIENT NAME: Ayo Alicia Patient Location: [place] [address] Room: [place] [address] Patient transferred into room/unit PK4 in stable condition. Actions taken: No futher actions taken at this time. Will continue to monitor and check with patient.[facility] ID: [id number] Author: DAMARI DAY RN Service: Nursing Author Type: Registered Nurse Type: Nursing Progress Note Filed: 05/13/2024 13:35 Note Text: Transfer Note: PATIENT NAME: Ayo Alicia Patient Location: [place] [address] Room: [place] [address] Patient transferred into room/unit 3B room 314 in stable condition. Actions taken: No futher actions taken at this time. Will continue to monitor and check with patient.[facility] 18-90-6491NLFJNTYYA NOHNO ID: [id number] Author: CUBA HAYWOOD MD Service: Colorectal Author Type: Physician Type: Operative Report Filed: 05/15/2024 18:24 Note Text: COLON AND RECTAL SURGERY OPERATIVE REPORT PATIENT NAME: Ayo Alicia ADMISSION DATE: 05/13/2024 LOG ID: [id number] SURGERY/PROCEDURE DATE: 05/13/2024 INCISION/PROCEDURE START TIME: 8:27 AM INCISION CLOSE/PROCEDURE END TIME: 10:28 AM AGE: [age] year old SEX: male SURGEON(S)/PROCEDURALIST(S) AND SUBSTATION OPERATOR TRANSFORMING(S): Surgeons and Role: * Cuba Haywood MD [...] were divided with JETHRO-80 purple stapler. A hxvm-lr-isnz functional end-to-end anastomosis was created using a [...] COMPLICATIONS: None INTRAOPERATIVE FLUIDS: See anesthesia record. SPONGE/INSTRUMENT/NEEDLE COUNTS: Correct x2. PRESENCE STATEMENT: I was present for the entire procedure as I have dictated above. Cuba Haywood M.D. Department of Surgery Division of Colon and Rectal SurgeryFarren Memorial Hospital EDon 69-07-7138AD EDHNO ID: [id number] Author: BECCA OZUNA, RN Service: ? Author Type: Registered Nurse [...] REFERRAL (RECOMMENDATION): None Electronically Signed By: Becca OzunaBristol County [facility] PATHOLOGYon 05-31-6202HGBTKKNO 1:[facility] HospitalComment on above:Order Comment: Specimen Type: TISSUE SPECIMEN [facility] Address: [address] [place], [place] [address]Result Comment: A CD10 immunostain was inadvertently omitted from the final report. The result is negative in the lymphoid infiltrate. There is no change to the final diagnosis. Addendum electronically signed by Neda Clarke DO on 06/09/2024 at 3:03 PM Performed By: #### S #### [facility] CLIA [id number] [place] [address] OF [facility] CLIA [id number] [address] [place] [address] [address]ETCASE REPORTNoHubbard Regional HospitalComment on above:Order Comment: Specimen Type: TISSUE SPECIMEN [facility] Address: [address] [place], [place] [address]Result Comment: Surgical Pathology Report Case: [id number] Authorizing Provider: Cuba Haywood MD Collected: 05/13/2024 09:36 AM Ordering Location: [facility] Received: 05/13/2024 10:04 AM Operating Room Pathologist: Beto Mosley MD Specimen: Small Bowel, Terminal Ileum, Resection, terminal ileum AND CECUM Performed By: #### S #### [facility] CLIA [id number] [address] [place] [address] LAB CLIA [id number] [address] [place] [address] AMERICACLINICAL HISTORYNormal [facility] HospitalComment on above:Order Comment: Specimen Type: TISSUE SPECIMEN [facility] Address: [address] [place], [place] [address]Result Comment: Pre-op diagnosis: Crohn's disease of both small and large intestine without complication (HCC) [K50.80]Performed By: #### S #### [facility] CLIA [id number] [address] [place] [address] LAB CLIA [id number] [address] [place], [place] [address]DIAGNOSIS COMMENTNormal [facility] HospitalComment on above:Order Comment: Specimen Type: TISSUE SPECIMEN [facility] Address: [address] [place], [place] [address]Result Comment: The histologic findings in the small [...] of CD2, CD5, or CD7. CD21 highlights afew residual HALFWAY meshworks. CD20 stains fewer small B cells. [...] been determined by the performing laboratory within [facility]???s [facility] Pathology and Laboratory Medicine Department ([facility], [facility], [facility], [facility], [facility], [facility], or [facility]) in a manner consistent with CLIA requirements. One or more of these tests havenot been cleared or approved by the FDA. [facility] is regulated under CLIA as qualified to perform high-complexity testing. These tests are used for clinical purposes. They should not be regarded as investigational or for research. Positive and negative controls stain appropriately.Performed By: #### S #### [facility] CLIA [id number] [place] [address] STATES OF [facility] CLIA [id number] [address] [place] [address] [id number] [place], [place] [address]FINAL DIAGNOSISNormal [facility] HospitalComment on above:Order Comment: Specimen Type: TISSUE SPECIMEN [facility] Address: [address] [place], [place] [address]Result Comment: Terminal ileum, cecum, and appendix, ileocecectomy: - Segment of small bowel with multiple strictures, patchy chronic active enteritis, ulcers, pyloricgland metaplasia, and inflammatory-type polyps. - Retained endoscopy capsule. - Appendix with fibrolipomatous obliteration. - Cecum with no diagnostic abnormality. - Benign lymph nodes with paracortical hyperplasia. - See comment. JEL 05/17/2024 Performed By: #### S #### [facility] CLIA [id number] [address] [place] [address] LAB CLIA [id number] [address] [place] [address] LABNoLowell General HospitalComment on above:Order Comment: Specimen Type: TISSUE SPECIMEN [facility] Address: [address] [place], [place] [address]Result Comment: Diagnostic interpretation performed at [facility], [address] [place] [address] CLIA# [id number] [place] Manager: Bette Mcmillan M.D.Performed By: #### S #### [facility] CLIA [id number] [address] [place] [address] LAB CLIA [id number] [address] [place], [place] [address] DESCRIPTIONWestern Massachusetts HospitalComment on above:Order Comment: Specimen Type: TISSUE SPECIMEN [facility] Address: [address] [place], [place] [address]Result Comment: A. Small Bowel, Terminal Ileum, Resection Received in formalin designated terminal ileum and cecum is a specimen consisting of a segment ofsmall bowel (59.8 cm and ranges in circumference from 2 to 4.1 cm), portion of colon (5.5 cm in length by 9.5 cm in circumference), and appendix (4.8 cm in length by 0.5 cm in diameter). The proximalmargin is inked blue, and the distal margin is inked orange. Within the lumen of the small bowel isan endoscopic camera measuring 2.4 x 1 x [...] from the proximal margin, extends for a lengthof 1.8 cm, and measures 2.6 cm in [...] flat at the areas of stricture. The serosalsurface is alicea-pink and smooth with creeping fat. [...] lymph nodes measuring up to 1 cm ingreatest dimension. Charge Account Clerk sections are submitted as follows: A1 perpendicular proximal anddistal margins, A2 first stricture, A3 second stricture, [...] 2024 11:35 AM Gross examination performed at [facility], [address] [place], [place] [address] CLIA # [id number] Additional sections are submitted as follows: A17 four intact lymph nodes, A18 four intact lymph nodes. WE May 20, 2024 7:50 AM Gross examination performed at [facility], [address] [place], [place] [address]Performed By: #### S #### [facility] CLIA [id number] [address] [place] [address] STATES OF [facility] CLIA [id number] [address] [place], [place] [address] OF [facility]ITALT-CELL CLONALITY BIOMED2 [facility] 59-02-9754A-CELL CLONALITY BIOMED2 [facility] for WomenComment on above:Order Comment: Specimen Type: TISSUE SPECIMEN [facility] Address: [address] [place], [place] [address]Result Comment: [facility] Accession Number: [id number] Case #: [id number] Block #: A16 Sample Description: Terminal Ileum [...] beta (TCRB) and gamma (TCRG) chain loci ([employer], [place], [place]). Fluorescently labeled PCR products were analyzed [...] developed and its performance characteristics determined by [facility]'s Pathology and Laboratory Medicine Department. It has not been cleared or approved by the FDA. [facility]'s Pathology and Laboratory Medicine Department is regulated under CLIA as certified to perform high-complexity testing. This test is used for clinical purposes. It should not be regarded as investigational or for research. Testing and interpretation performed at [facility], [address] [place] [address]. 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 Just wanted to send an FYI. TANDEWEY completed. If there are any issues with [...] Fully Assessed Reason for Visit: Anesthesia Consult [0340] Prescriptions as of 05/07/2024 - acetaminophen (TYLENOL) 325 mg tablet Take 650 mg by mouth every 6 hours as needed. - adalimumab (HUMIRA,CF, PEN YXDARZ-YZ-CF) 80 mg/0.8 mL pen kit Inject 80 [...] [K21.9] Encounter Status:Closed by ERNA MONTOYA on 05/07/24NormalCThe [facility] System W Auto Differential panel (Bld)on 02-80-0955Nphldkgle (Bld) [#/Vol] 0.04 10*3/uLNormal<0.11CProMedica Bay Park Hospital on above:Order Comment: Specimen Type: BLOOD SPECIMEN [facility] Address: [address] [place], [place] [address]Performed By: #### 38715-8 #### [facility] CLIA [id number] [address] [place] [address] [place] AMERICABasophils/100 WBC (Bld)0.7 % NormalCherrington Hospital on above:Order Comment: Specimen Type: BLOOD SPECIMEN [facility] Address: [address] [place], [place] [address]Performed By: #### 78103-4 #### [facility] CLIA [id number] [address] [place] [address] [place] AMERICADifferential cell count method Nom (Bld)AutoNormalCProMedica Bay Park Hospital on above:Order Comment: Specimen Type: BLOOD SPECIMEN [facility] Address: [address] [place], [place] [address]Performed By: #### 10617-6 #### [facility] CLIA [id number] [address] [place] [address] [place] AMERICAEosinophils (Bld) [#/Vol] 0.21 10*3/uLNormal<0.46[facility] on above:Order Comment: Specimen Type: BLOOD SPECIMEN [facility] Address: [address] [place], [place] [address]Performed By: #### 67341-2 #### [facility] CLIA [id number] [address] [place] [address] [place] AMERICAEosinophils/100 WBC (Bld)3.6 %NormalCherrington Hospital on above:Order Comment: Specimen Type: BLOOD SPECIMEN [facility] Address: [address] [place], [place] [address]Performed By: #### 94576-8 #### [facility] CLIA [id number] [address] [place] [address] [place] AMERICAErythrocyte distribution width (RBC) [Ratio]15.2 %High11.5-15.0[facility] on above:Order Comment: Specimen Type: BLOOD SPECIMEN [facility] Address: [address] [place], [place] [address]Performed By: #### 12165-5 #### [facility] CLIA [id number] [address] [place] [address] [place] AMERICAHematocrit (Bld) [Volume fraction]26.4 %Low39.0-51.0[facility] on above:Order Comment: Specimen Type: BLOOD SPECIMEN [facility] Address: [address] [place], [place] [address]Performed By: #### 16441-6 #### [facility] CLIA [id number] [address] [place] [address] [place] AMERICAHemoglobin (Bld) [Mass/Vol] 7.7 g/dLLow13.0-17.0[facility] on above:Order Comment: Specimen Type: BLOOD SPECIMEN [facility] Address: [address] [place], [place] [address]Performed By: #### 93735-6 #### [facility] CLIA [id number] [address] [place] [address] [place] AMERICAImmature granulocytes (Bld) [#/Vol]0.03 10*3/uLNormal<0.10[facility] on above:Order Comment: Specimen Type: BLOOD SPECIMEN [facility] Address: [address] [place], [place] [address]Performed By: #### 12409-0 #### [facility] CLIA [id number] [address] [place] [address] [place] AMERICAImmature granulocytes/100 WBC (Bld)0.5 %NormalCherrington Hospital on above:Order Comment: Specimen Type: BLOOD SPECIMEN [facility] Address: [address] [place], [place] [address]Performed By: #### 50464-7 #### [facility] CLIA [id number] [address] [place] [address] [place] AMERICALymphocytes (Bld) [#/Vol] 1.32 10*3/uLNormal1.00-4.00[facility] on above:Order Comment: Specimen Type: BLOOD SPECIMEN [facility] Address: [address] [place], [place] [address]Performed By: #### 18999-0 #### [facility] CLIA [id number] [address] [place] [address] [place] AMERICALymphocytes/100 WBC (Bld) 22.5 %NormalCherrington Hospital on above:Order Comment: Specimen Type: BLOOD SPECIMEN [facility] Address: [address] [place], [place] [address]Performed By: #### 63874-2 #### [facility] CLIA [id number] [address] [place] [address] STATES OF AMERICAH (RBC) [Entitic mass]25.3 pgLow26.0-34.0[facility] on above:Order Comment: Specimen Type: BLOOD SPECIMEN [facility] Address: [address] [place], [place] [address]Performed By: #### 09267-9 #### [facility] CLIA [id number] [address] [place] [address] [place] AMERICAHC (RBC) [Mass/Vol]29.2 g/dLLow30.5-36.0[facility] on above:Order Comment: Specimen Type: BLOOD SPECIMEN [facility] Address: [address] [place], [place] [address]Performed By: #### 86781-5 #### [facility] CLIA [id number] [address] [id number] [address] [place] AMERICAMCV (RBC) [Entitic vol]86.8 nLZyvkco70.0-100.0[facility] on above:Order Comment: Specimen Type: BLOOD SPECIMEN [facility] Address: [address] [place], [place] [address]Performed By: #### 02297-8 #### [facility] CLIA [id number] [address] [place] [address] [place] AMERICAMonocytes (Bld) [#/Vol]0.62 10*3/uLNormal<0.87[facility] on above:Order Comment: Specimen Type: BLOOD SPECIMEN [facility] Address: [address] [place], [place] [address]Performed By: #### 27499-3 #### [facility] CLIA [id number] [address] [place] [address] [place] AMERICAMonocytes/100 WBC (Bld)10.6 %[facility] on above:Order Comment: Specimen Type: BLOOD SPECIMEN [facility] Address: [address] [place], [place] [address]Performed By: #### 79855-5 #### [facility] CLIA [id number] [address] [place] [address] [place] AMERICANeutrophils (Bld) [#/Vol] 3.64 10*3/uLNormal1.45-7.50[facility] on above:Order Comment: Specimen Type: BLOOD SPECIMEN [facility] Address: [address] [place], [place] [address]Performed By: #### 01258-2 #### [facility] CLIA [id number] [address] [place] [address] [place] AMERICANeutrophils/100 WBC (Bld) 62.1 %NormalCherrington Hospital on above:Order Comment: Specimen Type: BLOOD SPECIMEN [facility] Address: [address] [place], [place] [address]Performed By: #### 65164-5 #### [facility] CLIA [id number] [address] [place] [address] [place] AMERICANucleated RBC (Bld) [#/Vol] 10*3/uLNormal<0.01[facility] on above:Order Comment: Specimen Type: BLOOD SPECIMEN [facility] Address: [address] [place], [place] [address]Performed By: #### 43232-9 #### [facility] CLIA [id number] [address] [place] [address] [place] OF AMERICANucleated RBC/100 WBC (Bld) [Ratio]0.0 /100 WBCNormalCProMedica Bay Park Hospital on above:Order Comment: Specimen Type: BLOOD SPECIMEN [facility] Facility[facility] Address: [address] [place], [place] [address]Performed By: #### 57764-4 #### [facility] CLIA [id number] [address] [place] [address] [place] OF AMERICAPlatelet mean volume (Bld) [Entitic vol]10.1 fLNormal9.0-12.7CProMedica Bay Park Hospital on above: Order Comment: Specimen Type: BLOOD SPECIMEN [facility] Address: [address] [place], [place] [address]Performed By: #### 32660-3 #### [facility] CLIA [id number] [address] [place] [address] [place] AMERICAPlatelets (Bld) [#/Vol]300 10*3/wQNwssqa956-276UkkkatokhCherrington Hospital on above:Order Comment: Specimen Type: BLOOD SPECIMEN [facility] Address: [address] [place], [place] [address]Performed By: #### 81022-9 #### [facility] CLIA [id number] [address] [place] [address] [place] AMERICARBC (Bld) [#/Vol]3.04 10*6/uLLow4.20-6.00[facility] on above:Order Comment: Specimen Type: BLOOD SPECIMEN [facility] Address: [address] [place], [place] [address]Performed By: #### 82125-6 #### [facility] CLIA [id number] [address] [place] [address] [place] AMERICAWBC (Bld) [#/Vol]5.86 10*3/uLNormal3.70-11.00[facility] on above:Order Comment: Specimen Type: BLOOD SPECIMEN [facility] Address: [address] [place], [place] [address]Performed By: #### 74671-0 #### [facility] CLIA [id number] [address] [place] [address] STATES OF AMERICACONFIRM BLOOD TYPEon 32-01-7040SPBZUgahrvWnuksxnfzProMedica Bay Park Hospital on above:Order Comment: Specimen Type: BLOOD SPECIMEN [facility] Address: [address] [place], [place] [address]Performed By: #### CONABO #### [facility] CLIA [id number] [address] [place] [address] [place] OF AMERICARh Nom (Bld)PositiveNormal [facility] on above:Order Comment: Specimen Type: BLOOD SPECIMEN [facility] Address: [address] [place], [place] [address]Performed By: #### CONABO #### [facility] CLIA [id number] [address] [place] [address] [place] AMERICAComprehensive metabolic 2000 panelon 16-73-7154Ogftyhl [Mass/Vol]3.6 g/dLLow3.9-4.9CProMedica Bay Park Hospital on above:Order Comment: Specimen Type: BLOOD SPECIMEN [facility] Address: [address] [place], [place] [address]Performed By: #### 48706-2 #### [facility] CLIA [id number] [address] [address] [place] OF AMERICAALP [Catalytic activity/Vol] 59 U/ZGrvwii86-756LsudvhkkhCherrington Hospital on above:Order Comment: Specimen Type: BLOOD SPECIMEN [facility] Address: [address] [place], [place] [address]Performed By: #### 21944-9 #### [facility] CLIA [id number] [address] [place], [place] [address] [place] AMERICAALT [Catalytic activity/Vol] 8 U/UQwd66-00FdxjdqwvjCherrington Hospital on above:Order Comment: Specimen Type: BLOOD SPECIMEN [facility] Address: [address] [place], [place] [address]Performed By: #### 31558-2 #### [facility] CLIA [id number] [address] [place] [address] [place] AMERICAAnion gap [Moles/Vol]9 mmol/LNormal8-15[facility] on above:Order Comment: Specimen Type: BLOOD SPECIMEN [facility] Address: [address] [place], [place] [address]Performed By: #### 21553-1 #### [facility] CLIA [id number] [address] [address] [place] OF AMERICAAST [Catalytic activity/Vol] 16 U/OMkicrz78-73PiqvnvpwaCherrington Hospital on above:Order Comment: Specimen Type: BLOOD SPECIMEN [facility] Address: [address] [place], [place] [address]Performed By: #### 23745-1 #### [facility] CLIA [id number] [address] [place] [id number] [place] OF AMERICABilirubin [Mass/Vol]0.5 mg/dLNormal0.2-1.3CProMedica Bay Park Hospital on above:Order Comment: Specimen Type: BLOOD SPECIMEN [facility] Address: [address] [place], [place] [address]Performed By: #### 48580-0 #### [facility] CLIA [id number] [address] [place] [address] [place] AMERICACalcium [Mass/Vol]8.3 mg/dL Low8.5-10.2CProMedica Bay Park Hospital on above:Order Comment: Specimen Type: BLOOD SPECIMEN [facility] Address: [address] [place], [place] [address]Performed By: #### 29602-7 #### [facility] CLIA [id number] [address] [place] [address] [place] AMERICAChloride [Moles/Vol]106 mmol/GBtwbmo04-008UmnbvkouaCherrington Hospital on above:Order Comment: Specimen Type: BLOOD SPECIMEN [facility] Address: [address] [place], [place] [address]Performed By: #### 01783-9 #### [facility] CLIA [id number] [address] [place] [address] [place] AMERICACO2 [Moles/Vol]25 mmol/L Hsqcvk62-99SbqaxgnbxCherrington Hospital on above:Order Comment: Specimen Type: BLOOD SPECIMEN [facility] Address: [address] [place], [place] [address]Performed By: #### 39538-9 #### [facility] CLIA [id number] [address] [place], [place] [address] [place] AMERICACreatinine [Mass/Vol]0.87 mg/dLNormal0.73-1.22[facility] ClevelandComment on above:Order Comment: Specimen Type: BLOOD SPECIMEN [facility] Address: [address] [place], [place] [address]Performed By: #### 17067-4 #### [facility] CLIA [id number] [address] [place] [address] [place] AMERICACreatinine and Glomerular filtration rate.predicted panel (S/P/Bld)96 mL/min/1.73m???Normal>=60[facility] on above:Order Comment: Specimen Type: BLOOD SPECIMEN [facility] Address: [address] [place], [place] [address]Result Comment: Estimated Glomerular Filtration Rate (eGFR) is calculated using the 2020 CKD-EPI cre atinine equation. This equation utilizes serum creatinine, sex, and age as parameters. The creatinine assay has traceable calibration to isotope dilution- mass spectrometry. Refer to KDIGO guidelines for clinical interpretation. In patients with unstable renal function, e.g. those with acute kidney injury, the eGFR may not accurately reflect actual GFR.Performed By: #### 59856-2 #### [facility] CLIA [id number] [address] [place] [address] [place] AMERICAGlucose [Mass/Vol]104 mg/dL Tlgj68-92CzdsdxzijCherrington Hospital on above:Order Comment: Specimen Type: BLOOD SPECIMEN [facility] Address: [address] [place], [place] [address]Result Comment: The [place] Diabetes [employer] (ADA) provides guidance for cutoff [...] Standards of Medical Care in Diabetes 2016, [place] [employer]. Diabetes Care. 2016.39(Suppl 1).Performed By: #### 38983-5 #### [facility] CLIA [id number] [address] [place] [address] [place] AMERICAPotassium [Moles/Vol]4.5 mmol/LNormal3.7-5.1CProMedica Bay Park Hospital on above:Order Comment: Specimen Type: BLOOD SPECIMEN [facility] Address: [address] [place], [place] [address]Performed By: #### 85357-5 #### [facility] CLIA [id number] [address] [place] [address] [place] AMERICAProtein [Mass/Vol]5.8 g/dL Low6.3-8.0[facility] on above:Order Comment: Specimen Type: BLOOD SPECIMEN [facility] Address: [address] [place], [place] [address]Performed By: #### 23071-8 #### [facility] CLIA [id number] [address] [place] [address] [place] AMERICASodium [Moles/Vol]140 mmol/L Sapvwv094-248CsvggzpkvCherrington Hospital on above:Order Comment: Specimen Type: BLOOD SPECIMEN [facility] Address: [address] [place], [place] [address]Performed By: #### 76133-4 #### [facility] CLIA [id number] [address] [place] [address] [place] AMERICAUrea nitrogen [Mass/Vol]13 mg/dLNormal9-24[facility] on above:Order Comment: Specimen Type: BLOOD SPECIMEN [facility] Address: [address] [place], [place] [address]Performed By: #### 51434-3 #### [facility] CLIA [id number] [address] [place] [address] [place] AMERICAECG COMPLETEon 97-67-9484OXH COMPLETEVentricular Rate : 65 BPM Atrial Rate : 65 BPM P-R Interval : 150 ms QRS Duration : 90 ms Q-T Interval : 416 ms QTC Calculation(Bazett) : 432 ms Calculated P [place] : -17 degrees Calculated R [place] : 49 degrees Calculated T [place] : 44 degrees NORMAL SINUS RHYTHM NORMAL ECG Confirmed by FIDEL WILLOUGHBY MD ([id number]) on 05/24/2024 9:51:42 AM NAME : AYO ALICIA PID : [id number] : 1960 Gender : Male Race : Unknown ORD : [id number] Procedure Date : Apr 30 2024 13:55:34 Edit Date : May 24 2024 09:57:32 Diagnosis: NORMAL SINUS RHYTHM NORMAL ECG Confirmed by FIDEL WILLOUGHBY MD ([id number]) on 05/24/2024 9:51:42 AM Test Reason : Z01.818 Pre-op evaluation Location : 145 : [place] Overread By : FIDEL WILLOUGHBY MD Edited By : FIDEL WILLOUGHBY MD Referred By : CUBA HAYWOOD Acquired by : vanessa mayer NormalGlenbeigh HospitalTORY PHYSICALon 76-87-5336JMFEQWO PHYSICALHNO ID: [id number] Author: DOLLY NELSON APRN.CALENDERING SUPERVISOR Service: ? Author Type: Nurse Practitioner Type: [...] or recurrence Follows with Dr. Pagan @ [place] Atherosclerosis of coronary artery Assessment: Stable S/p Stenting in 2020 On ASA, DOAC, AND Statin Negative stress test 06/17/2023 Follows with Cardiology at [place] GERD (gastroesophageal reflux disease) Assessment: Controlled with [...] have a large neck STOP-Bang Score: 3 ORE9LP5-AIEe Score: Age: 65-74 Sex: male CHF history: No Hypertension history: Yes Stroke/TIA/thromboembolism history: No Vascular disease history: Yes Diabetes history: No [id number] Score: 3 ARISCAT Score: Age: 51-80 Preoperative [...] Thick neck: no Lip Bite Test: II Microretrognathia/Micronagthia/Recessed Chin: No DENTAL Dental findings: teeth intact [...] okay to proceed? Cuba Haywood MD to Ks Krupa Casillas RN Proceed with surgery 05/07/2024 [...] cells, platelets, plasma, cryoprecipit (more content not included)...NormalOhiohealthTYPE AND SCREEN,30 DAYon 46-27-3022MKMRFynwvsEntwufamoProMedica Bay Park Hospital on above:Order Comment: Specimen Type: BLOOD SPECIMEN [facility] Address: [address] [place], [place] [address]Performed By: #### [id number] #### [facility] CLIA [id number] [address] [place], [place] [address] [address] OF AMERICAHISTORICAL AB SCR STATUS NegativeNormalCProMedica Bay Park Hospital on above:Order Comment: Specimen Type: BLOOD SPECIMEN [facility] Address: [address] [place], [place] [address]Performed By: #### [id number] #### [facility] CLIA [id number] [address] [place] [address] [place] AMERICARh Nom (Bld)PositiveNormal OhiohealthComment on above:Order Comment: Specimen Type: BLOOD SPECIMEN [facility] Address: [address] [place], [place] [address]Performed By: #### [id number] #### [facility] CLIA [id number] [address] [place] [address] [place] AMERICACNOVon 20-61-3741IKPABlrjoz Visit ([facility]) AYO ALICIA ([id number]) 1960 M Date Time Provider Department 04/28/24 12:20 PM CUBA HAYWOOD [facility] During your visit today, we recorded the [...] for internal providers or letter via the [employer] for external providers. Chief Complaint: retained capsule History of Present Illness: Ayo Alicia is a 64 year old male presents today for evaluation of retained endoscopic camera. Crohn's disease - dx [address] enterography 04/16/24 Scan on 04/22/2024 8:26 AM by Lisa Arreaga: [facility] CT ABD AND PEL [id number] - Tiny hiatal hernia - Cholelithiasis - [...] Abdomen, CT Pelvis I have discussed Ayo Rose Alicia's treatment plan and/or results with Dr. [...] BLOOD COUNT AND DIFFERENTIAL [SQCBCDIF] Order #: [id number] FUTURE COMPREHENSIVE METABOLIC PANEL [SQCMP] Order #: [id number] FUTURE metroNIDAZOLE (FLAGYL) 500 mg tabletTake 1 [...] tablet Take by mouth. (more content not included)...NormalBellevue Hospital ClevelandCreatinine [Mass/volume] in Serum or PlasmaOrdered By: Nelly Arias on 62-39-2406Jopknfjufd [Mass/Vol]0.98 mg/dL0.70-1.30[facility] Medical CenterNo Panel InformationOrdered By: Nelly Arias on 62-36-3313Tpwrcmgyo GFR (CKD-EPI)> 60.0 mL/MinFisher-Titus Medical CenterPharmacy Creatinine Clearance (ChemN/A [facility] Medical CenterUrea nitrogen [Mass/volume] in Serum or Plasma Ordered By: Nelly Arias on 72-26-3261Buol nitrogen [Mass/Vol]24 mg/dL03-25 [facility] Medical CenterHEMOGLOBINon 66-17-2651Ltyfwzxsth (Bld) [Mass/Vol]12.3 g/dLLow13.0-17.0ProMethodist Mansfield Medical CenterComment on above: Performed By: #### 718-7 #### [facility] ([id number]) [address] [place] [address], [address] [place], [place] [address]Ibdlwjfutopq 68-52-0251Wfatxwshbs (Bld) [Mass/Vol]12.3 g/dLLow 13.0 - 17.0 g/dLSelect Medical Specialty Hospital - CantonHemoglobin (Bld) [Mass/Vol]on 08-27-2023 Interpretation and review of laboratory resultsAbnormalProVan Wert County Hospital ProMPhillips Eye Institute SystemAlbumin [Mass/volume] in Serum or Plasma by Bromocresol green (BCG) dye binding methoOrdered By: Enoch Neal on 13-83-9007Uuyjzvu BCG dye [Mass/Vol]3.8 g/dL3.5-5.7FOhioHealth Hardin Memorial HospitalBasophils Auto (Bld) [#/Vol]Ordered By: Enoch Neal on 26-23-2117Kqgencmvb (Bld) [#/Vol]0.1 10*3/uL0.0-0.2FOhioHealth Hardin Memorial HospitalBasophils/100 WBC Auto (Bld)Ordered By: Enoch Neal on 58-85-0697Wnhvbwawa/100 WBC (Bld)0.8 %. [facility] Medical CenterBilirubin.total [Mass/volume] in Serum or PlasmaOrdered By: Enoch Neal on 27-64-3151Omrghpjbs [Mass/Vol]0.9 mg/dL 0.3-1.0[facility] Medical CenterCalcium [Mass/volume] in Serum or Plasma Ordered By: Enoch Neal on 60-76-3226Hwvwqqv [Mass/Vol]8.7 mg/dL8.6-10.3 [facility] Medical CenterCarbon dioxide, total [Moles/volume] in Serum or PlasmaOrdered By: Enoch Neal on 65-12-3231WR2 [Moles/Vol]29.7 mmol/L 21.0-31.0[facility] Medical CenterComprehensive Metabolic Panelon 21-08-9041Uwgjlbf [Mass/Vol]3.957045 g/dLNormal3.5-5.7 g/dLNoAlminder Other bilirubin [Mass/Vol]0.3061358 mg/dLNormal0.3-1.0 mg/dL [employer] Other Calcium [Mass/Vol]8.4027662 mg/dLNormal8.6-10.3 mg/dL [employer] Other CO2 [Moles/Vol]29.82945160 mmol/MRpfxqx55.0-31.0 mmol/LNMind Lab Other Creatinine [Mass/Vol]1.07631496 mg/dLNormal0.70-1.30 mg/dLAlminder Other GFR/1.73 sq M.predicted MDRD (S/P/Bld) [Vol rate/Area] mL/min/{1.73_m2}[employer] Other Potassium [Moles/Vol]3.05382346 mmol/LLow3.5-5.1 mmol/LNMind Lab Other Protein [Mass/Vol]6.918295 g/dLLow6.4-8.9 g/dLeRele[employer] Other Comprehensive Metabolic Panel2.2 g/dLeRelevance Corporation Other Comprehensive Metabolic PanelOrdered By: Enoch Neal on 71-74-7084Osgsiva/Globulin [Mass ratio]1.7 {ratio}[facility] Medical CenterALP [Catalytic activity/Vol]45 U/C35-980RxjrhxrcnFisher-Titus Medical CenterALT [Catalytic activity/Vol]12 U/L7-52[facility] Medical CenterAST [Catalytic activity/Vol]11 U/Z41-97OmbtcmmjgFisher-Titus Medical CenterChloride [Moles/Vol]106 mmol/W55-316OjlrqfiyhFisher-Titus Medical Center Glucose [Mass/Vol]140 mg/kI43-826RipjlmxpdFisher-Titus Medical CenterComment on above:ADA recommended reference rangeRandom Glucose Reference Range is dependent on time and content of last meal. Glucose of more than 200 mg/dL in a nonstressed, ambulatory subject supports the diagnosisof Diabetes Mellitus. Sodium [Moles/Vol]141 mmol/M629-977CdkwigskoFisher-Titus Medical CenterUrea nitrogen [Mass/Vol]15 mg/dL7-25[facility] Medical CenterCreatinine [Mass/volume] in Serum or PlasmaOrdered By: Enoch Neal on 04-23-2023 Creatinine [Mass/Vol]1.08 mg/dL0.70-1.30[facility] Eosinophils Auto (Bld) [#/Vol]Ordered By: Enoch Neal on 04-23-2023 Eosinophils (Bld) [#/Vol]0.1 10*3/uL0.0-0.45[facility] Eosinophils/100 WBC Auto (Bld)Ordered By: Enoch Neal on 04-23-2023 Eosinophils/100 WBC (Bld)1.4 %.[facility]-Titus Medical CenterErythrocyte distribution width Auto (RBC) [Ratio]Ordered By: Enoch Neal on 79-48-3255Ewhppftdeon distribution width (RBC) [Ratio]19.1 %12.0-14.8[facility]-Titus Medical CenterGlobulin Calc (S) [Mass/Vol]Ordered By: Enoch Neal on 44-09-3748Impxbrui (S) [Mass/Vol]2.2 g/dLFisher-Titus Medical CenterHematocrit Auto (Bld) [Volume fraction]Ordered By: Enoch Neal on 81-28-7630Yiutuxposv (Bld) [Volume fraction]25.3 %38.8-50.0[facility]-Titus Medical CenterHemoglobin [Mass/volume] in BloodOrdered By: Enoch Neal on 01-33-7479Cmkwbaawir (Bld) [Mass/Vol]7.7 g/dL13.0-17.0[facility]-Titus Medical CenterLeukocytes [#/volume] corrected for nucleated erythrocytes in Blood by Automated counOrdered By: Enoch Neal on 03-49-0574OGK corrected for nucl RBC Auto (Bld) [#/Vol]9.8 10*3/uL4.1-10.5FOhioHealth Hardin Memorial HospitalLymphocytes Auto (Bld) [#/Vol]Ordered By: Enoch Neal on 04-23-2023 Lymphocytes (Bld) [#/Vol]0.7 10*3/uL1.00-4.8[facility] Lymphocytes/100 WBC Auto (Bld)Ordered By: Enoch Neal on 04-23-2023 Lymphocytes/100 WBC (Bld)7.2 %.[facility]-Titus Medical CenterMCH Auto (RBC) [Entitic mass]Ordered By: Enoch Neal on 47-74-6621YUJ (RBC) [Entitic mass]22.0 pg27.5-35.2FOhioHealth Hardin Memorial HospitalMCHC Auto (RBC) [Mass/Vol] Ordered By: Enoch Neal on 56-02-7589DVDL (RBC) [Mass/Vol]30.3 g/dL 32.5-35.6FOhioHealth Hardin Memorial HospitalMCV Auto (RBC) [Entitic vol]Ordered By: Enoch Neal on 88-01-3885SLB (RBC) [Entitic vol]72.5 fL83.5-101 [facility] Medical CenterMonocytes Auto (Bld) [#/Vol]Ordered By: Enoch Neal on 18-77-5229Imngogfdd (Bld) [#/Vol]0.8 10*3/uL0.0-0.8 [facility] Medical CenterMonocytes/100 WBC Auto (Bld)Ordered By: Enoch Neal on 88-85-3548Xvzbonoaj/100 WBC (Bld)8.0 %.[facility]-Titus Medical CenterNeutrophils Auto (Bld) [#/Vol]Ordered By: Enoch Neal on 28-55-0860Klyxweujjbj (Bld) [#/Vol]8.1 10*3/uL1.8-7.7FOhioHealth Hardin Memorial HospitalNeutrophils/100 WBC Auto (Bld)Ordered By: Enoch Neal on 04-23-2023 Neutrophils/100 WBC (Bld)82.6 %.[facility] Medical CenterNo Panel InformationOrdered By: Enoch Neal on 83-53-4751Lhymxqhqs GFR (CKD-EPI)> 60.0 mL/MinFisher-Titus Medical CenterPharmacy Creatinine Clearance (Chem N/AFOhioHealth Hardin Memorial HospitalNucleated erythrocytes [Presence] in Blood by Automated countOrdered By: Enoch Neal on 32-12-9809Odwtpegno RBC Auto Ql (Bld)0.1 /100{WBC}0-0.5FOhioHealth Hardin Memorial HospitalPlatelet mean volume Auto (Bld) [Entitic vol]Ordered By: Enoch Neal on 40-00-8438Ohxvmhct mean volume (Bld) [Entitic vol]7.5 fL6.6-10.1FOhioHealth Hardin Memorial Hospital Platelets Auto (Bld) [#/Vol]Ordered By: Enoch Neal on 04-23-2023 Platelets (Bld) [#/Vol]359 10*3/sN538-329FfcfrawnnFisher-Titus Medical Center Potassium [Moles/volume] in Serum or PlasmaOrdered By: Enoch Neal on 42-39-9323Lkcwnojgr [Moles/Vol]3.3 mmol/L3.5-5.1FOhioHealth Hardin Memorial HospitalProtein [Mass/volume] in Serum or PlasmaOrdered By: Enoch Neal on 36-45-8356Uncswuu [Mass/Vol]6.0 g/dL6.4-8.9[facility]-Titus Medical CenterRBC Auto (Bld) [#/Vol]Ordered By: Enoch Neal on 49-19-8749EIN (Bld) [#/Vol] 3.49 10*6/uL3.90-5.60McCullough-Hyde Memorial Hospitalerum or plasma anion gap determinationOrdered By: Enoch Neal on 98-91-0813Vloui gap [Moles/Vol] 8.6 mmol/L6.0-15.0[facility]-T[facility] Medical CenterWBC Auto (Bld) [#/Vol]Ordered By: Enoch Neal on 45-39-8750PYT (Bld) [#/Vol]9.8 10*3/uL4.1-10.5 [facility] Medical CenterCBC AUTO DIFFon 72-21-2631XXEY #0.1 103/ul Normal0.0-0.1The [facility], BeachwoodComment on above:Performed By: #### CMREP #### [facility] [place] [facility] [address] [address] [address] Sayda KapoorBasophils/100 WBC (Bld)0.7 %Normal0.2-2.0The [facility] [place] Comment on above:Performed By: #### CMREP #### [facility] [place] [facility] [address] [place] [address] Dr. Sayda Patterson #0.1 103/ulNormal0.0-0.7The [facility], BeachwoodComment on above: Performed By: #### CMREP #### [facility] [place] [facility] [address] [address] [address] Sayda Piresosinophils/100 WBC (Bld)1.4 %Normal0.9-7.0The [facility] [place] Comment on above:Performed By: #### CMREP #### [facility] [place] [facility] [address] [address] [address] Sayda Piresrythrocyte distribution width (RBC) [Ratio]15.9 %Critically high 11.0-15.0The [facility], BeachwoodComment on above:Performed By: #### CMREP #### [facility] [place] [facility] [address] [place] [address] Dr. Sayda KapoorHematocrit (Bld) [Volume fraction]31.5 %Critically low42.0-54.0 The [facility], BeachwoodComment on above:Performed By: #### CMREP #### [facility] [place] [facility] [address] [place] [address] Dr. Sayda KapoorHemoglobin (Bld) [Mass/Vol]9.1 g/dLCritically low14.0-18.0The [facility], BeachwoodComment on above:Performed By: #### CMREP #### [facility] [place] [facility] [address] [address] [address] Sayda Loredo #0.20 10e3/ulCritically high0.00-0.03The [facility] [place] Comment on above:Performed By: #### CMREP #### [facility] [place] [facility] [address] [address] [address] Sayda Loredo %2.3 %Critically high0.0-0.5The [facility], BeachwoodComment on above:Performed By: #### CMREP #### [facility] [place] [facility] [address] [address] [address] Sayda Nixon #0.8 103/ulCritically low1.2-3.8The [facility] [place] Comment on above:Performed By: #### CMREP #### [facility] [place] [facility] [address] [address] [address] Sayda Contrerashocytes/100 WBC (Bld)9.4 %Critically low20.5-60.0[facility] Vincent Medical CenterComment on above:Performed By: #### CMREP #### [facility] [place] [facility] [address] [address] [address] Sayda ThibodeauxUAL DIFF REQNONormalThe [facility], BeachwoodComment on above: Performed By: #### CMREP #### [facility] [place] [facility] [address] [address] [address] Sayda Samano (RBC) [Entitic mass]22.9 pgCritically low25.9-34.0The [facility], BeachwoodComment on above:Performed By: #### CMREP #### [facility] [place] [facility] [address] [place] [address] Dr. Sayda Samano (RBC) [Mass/Vol]28.9 g/dLCritically low29.9-35.2The [facility], BeachwoodComment on above:Performed By: #### CMREP #### [facility] [place] [facility] [address] [place] [address] Dr. Sayda Samano (RBC) [Entitic vol]79.1 fLCritically low80.0-94.0The [facility], BeachwoodComment on above:Performed By: #### CMREP #### [facility] [place] [facility] [address] [place] [address] Dr. Sayda Mendiola #0.6 103/ulNormal0.3-0.8The [facility], [place]woodComment on above:Performed By: #### CMREP #### [facility] [place] [facility] [address] [place] [address] Dr. Sayda De La Torreocytes/100 WBC (Bld)7.2 %Normal1.7-12.0The [facility] [place] Comment on above:Performed By: #### CMREP #### [facility] [place] [facility] [address] [place] [address] Dr. Sayda Nicole #6.9 103/ulCritically high1.4-6.5The [facility] [place] Comment on above:Performed By: #### CMREP #### [facility] [place] [facility] [address] [place] [address] Dr. Sayda Infanteutrophils/100 WBC (Bld)79.0 %Critically high43.0-75.0The [facility] [place] on above:Performed By: #### CMREP #### [facility] [place] [facility] [address] [place] [address] Dr. Sayda Ac mean volume (Bld) [Entitic vol]9.1 fLCritically low 9.5-13.5The [facility] [place] on above:Performed By: #### CMREP #### [facility] [place] [facility] [address] [place] [address] Dr. Sayda KapoorPLT416 103/bqCbgkym365-753Dkq [facility] [place]Comment on above: Performed By: #### CMREP #### [facility] [place] [facility] [address] [place] [address] Dr. Sayda KapoorRBC3.98 106/ulCritically low4.70-6.10The [facility] [place]Comment on above:Performed By: #### CMREP #### [facility] [place] [facility] [address] [place] [address] Dr. Yilan ChangWBC8.8 103/ulNormal4.0-11.0The [facility] [place] on above: Performed By: #### CMREP #### [facility] [place] [facility] [address] [address] [address] Sayda KapoorPROF CHEM 8 (BAS METB)on [id number] gap [Moles/Vol]9.0 mmol/LNormalThe [facility] [place]woodComment on above:Performed By: #### BNP, CMP, LIPA, TONI #### [facility] [place] [facility] [address] [address] [address] Sayda KapoorCalcium [Mass/Vol]8.2 mg/dLCritically low8.5-10.1The [facility] [place]Comment on above:Performed By: #### BNP, CMP, LIPA, TONI #### [facility] [place] [facility] [address] [place] [address] Dr. Sayda KapoorChloride [Moles/Vol]104 mmol/UFdvlim02-446Bia [facility] [place] Comment on above:Performed By: #### BNP, CMP, LIPA, TONI #### [facility] [place] [facility] [address] [address] [address] Sayda KapoorCO2 [Moles/Vol]32.5 mmol/LCritically high21.0-32.0The [facility] [place] on above:Performed By: #### BNP, CMP, LIPA, TONI #### [facility] [place] [facility] [address] [place] [address] Dr. Sayda KapoorCreatinine [Mass/Vol]0.93 mg/dLNormal0.70-1.30The [facility] [place] on above:Performed By: #### BNP, CMP, LIPA, TONI #### [facility] [place] [facility] [address] [address] [address] Sayda PiresGFR-AF MOSOTHO>60Normal>=60The [facility] [place]Comment on above:Performed By: #### BNP, CMP, LIPA, TONI #### [facility] [place] [facility] [address] [address] [address] Sayda PiresGFR-NON AF MOSOTHO>60Normal>=60The [facility] [place] on above:Performed By: #### BNP, CMP, LIPA, TONI #### [facility] [place] [facility] [address] [address] [address] Sayda KapoorGlucose [Mass/Vol]145 mg/dLCritically znrp07-249Nlh [facility] [place]Comment on above:Performed By: #### BNP, CMP, LIPA, TONI #### [facility] [place] [facility] [address] [place] [address] Dr. Sayda KapoorPotassium [Moles/Vol]3.5 mmol/LNormal3.5-5.1The [facility] [place] Comment on above:Performed By: #### BNP, CMP, LIPA, TONI #### [facility] [place] [facility] [address] [place] [address] Dr. Sayda KapoorSodium [Moles/Vol]142 mmol/JPagxqm238-788Wfk [facility] [place] Comment on above:Performed By: #### BNP, CMP, LIPA, TONI #### [facility] [place] [facility] [address] [place] [address] Dr. Sayda KapoorUrea nitrogen [Mass/Vol]20.0 mg/dLCritically high7.0-18.0The [facility] [place] on above:Performed By: #### BNP, CMP, LIPA, TONI #### [facility] [place] [facility] [address] [place] [address] Dr. Sayda Gonzalez nitrogen/Creatinine [Mass ratio]21.5 mg/mgNormalThe [facility] [place]woodComment on above:Performed By: #### BNP, CMP, LIPA, TONI #### [facility] [place] [facility] [address] [place] [address] Dr. Sayda Motley [id number] peptide B (Bld) [Mass/Vol]2297.0 pg/mLCritically high<=900.0The [facility] [place]Comment on above:Performed By: #### CMREP #### [facility] [place] [facility] [address] [place] [address] Dr. Sayda Casas AUTO DIFFon [id number] #0.1 103/ulNormal0.0-0.1[facility] CenterComment on above:Performed By: #### DIG #### [facility] [place] [facility] [address] [place] [address] Dr. Sayda Francosophils/100 WBC (Bld)0.7 %Normal0.2-2.0[facility] Comment on above:Performed By: #### DIG #### [facility] [place] [facility] [address] [place] [address] Dr. Sayda Patterson #0.1 103/ulNormal0.0-0.7The [facility] [place] on above: Performed By: #### DIG #### [facility] [place] [facility] [address] [place] [address] Dr. Sayda Piresosinophils/100 WBC (Bld)1.9 %Normal0.9-7.0[facility] Comment on above:Performed By: #### DIG #### [facility] [place] [facility] [address] [place] [address] Dr. Sayda Piresrythrocyte distribution width (RBC) [Ratio]15.6 %Critically high 11.0-15.0[facility] CenterComment on above:Performed By: #### DIG #### [facility] [place] [facility] [address] [place] [address] Dr. Sayda Raderatocrit (Bld) [Volume fraction]29.1 %Critically low42.0-54.[address] [facility] CenterComment on above:Performed By: #### DIG #### [facility] [place] [facility] [address] [place] [address] Dr. Sayda KapoorHemoglobin (Bld) [Mass/Vol]8.4 g/dLCritically low14.0-18.0[facility] CenterComment on above:Performed By: #### DIG #### [facility] [place] [facility] [address] [place] [address] Dr. Sayda Loredo #0.06 10e3/ulCritically high0.00-0.03[facility] Comment on above:Performed By: #### DIG #### [facility] [place] [facility] [address] [place] [address] Dr. Sayda Loredo %0.8 %Critically high0.0-0.5The [facility] [place]Comment on above:Performed By: #### DIG #### [facility] [place] [facility] [address] [place] [address] Dr. Sayda Nixon #1.1 103/ulCritically low1.2-3.8The [facility] [place] Comment on above:Performed By: #### DIG #### [facility] [place] [facility] [address] [place] [address] Dr. Sayda Contrerashocytes/100 WBC (Bld)14.8 %Critically low20.5-60.0The [facility] [place]woodComment on above:Performed By: #### DIG #### [facility] [place] [facility] [address] [place] [address] Dr. Sayda ThibodeauxUAL DIFF REQNONormalThe [facility] [place]Comment on above: Performed By: #### DIG #### [facility] [place] [facility] [address] [place] [address] Dr. Sayda Damon (RBC) [Entitic mass]23.3 pgCritically low25.9-34.0The [facility] [place]Comment on above:Performed By: #### DIG #### [facility] [place] [facility] [address] [place] [address] Dr. Sayda Samano (RBC) [Mass/Vol]28.9 g/dLCritically low29.9-35.2The [facility] [place]Comment on above:Performed By: #### DIG #### [facility] [place] [facility] [address] [place] [address] Dr. Sayda Samano (RBC) [Entitic vol]80.6 xBUzlwfq40.0-94.0The [facility] [place]woodComment on above:Performed By: #### DIG #### [facility] [place] [facility] [address] [place] [address] Dr. Sayda Mendiola #0.7 103/ulNormal0.3-0.8The [facility] [place]woodComment on above:Performed By: #### DIG #### [facility] [place] [facility] [address] [place] [address] Dr. Sayda De La Torreocytes/100 WBC (Bld)8.7 %Normal1.7-12.0The [facility] [place] Comment on above:Performed By: #### DIG #### [facility] [place] [facility] [address] [place] [address] Dr. Sayda InfanteUT #5.5 103/ulNormal1.4-6.5The [facility] [place]woodComment on above:Performed By: #### DIG #### [facility] [place] [facility] [address] [place] [address] Dr. Sayda Infanteutrophils/100 WBC (Bld)73.1 %Moexzp69.0-75.0The [facility] [place]woodComment on above:Performed By: #### DIG #### [facility] [place] [facility] [address] [place] [address] Dr. Sayda Portillolet mean volume (Bld) [Entitic vol]9.5 fLNormal9.5-13.5The [facility] [place]woodComment on above:Performed By: #### DIG #### [facility] [place] [facility] [address] [place] [address] Dr. Sayda KapoorPLT281 103/dbZsofsc313-593Klz [facility] [place]woodComment on above: Performed By: #### DIG #### [facility] [place] [facility] [address] [place] [address] Dr. Sayda KapoorRBC3.61 106/ulCritically low4.70-6.10The [facility] [place]woodComment on above:Performed By: #### DIG #### [facility] [place] [facility] [address] [place] [address] Dr. Sayda KapoorWBC7.6 103/ulNormal4.0-11.0The [facility] [place]woodComment on above: Performed By: #### DIG #### [facility] [place] [facility] [address] [place] [address] Dr. Sayda Carmona 17-01-7552BKT5.9 ng/mLNormal0.9-2.0The [facility] [place]woodComment on above:Performed By: #### DIG #### [facility] [place] [facility] [address] [place], [place] [id number] Dr. Sayda Li 14(COMP METB)on 50-56-4182Hupsyaa [Mass/Vol]2.4 g/dL Critically low3.4-5.0The [facility] on above:Performed By: #### CMREP #### [facility] [place] [facility] [address] [place] [address] Dr. Sayda KapoorAlbumin/Globulin [Mass ratio]0.9 {ratio}NormalThe [facility]woodComcorewell [facility] on above:Performed By: #### CMREP #### [facility] [place] [facility] [address] [place] [address] Dr. Sayda SalcidoP [Catalytic activity/Vol]62 U/RAmofyp47-002Vpm [facility] on above:Performed By: #### CMREP #### [facility] [place] [address] [place] [address] Dr. Sayda SalcidoT [Catalytic activity/Vol]33 U/KYcqajg34-11Nfh [facility]ment on above:Performed By: #### CMREP #### [facility] [place] [facility] [address] [place] [address] Dr. Sayda Delgadillo gap [Moles/Vol]8.2 mmol/LNormalThe [facility] on above:Performed By: #### CMREP #### [facility] [place] [facility] [address] [place] [address] Dr. Sayda KapoorAST [Catalytic activity/Vol]15 U/CEiitrn85-18Pey [facility] on above:Performed By: #### CMREP #### [facility] [place] [facility] [address] [place] [address] Dr. Sayda KapoorBilirubin [Mass/Vol]1.3 mg/dLCritically high0.2-1.0The [facility] on above:Performed By: #### CMREP #### [facility] [address] [place] [address] Dr. Sayda KapoorCalcium [Mass/Vol]7.6 mg/dLCritically low8.5-10.1The [facility] [place] on above:Performed By: #### CMREP #### [facility] [place] [facility] [address] [address] [address] Sayda KapoorChloride [Moles/Vol]105 mmol/ZWbwrmd67-639Omx [facility] [place] Comment on above:Performed By: #### CMREP #### [facility] [place] [facility] [address] [address] [address] Sayda KapoorCO2 [Moles/Vol]30.2 mmol/FUzovrd34.0-32.0The [facility] [place] Comment on above:Performed By: #### CMREP #### [facility] [place] [facility] [address] [address] [address] Sayda KapoorCreatinine [Mass/Vol]1.07 mg/dLNormal0.70-1.30The [facility] [place]woodComment on above:Performed By: #### CMREP #### [facility] [place] [facility] [address] [place] [address] Dr. Alfredo ChangEGFR-AF MOSOTHO>60Normal>=60The [facility] [place]Comment on above:Performed By: #### CMREP #### [facility] [place] [facility] [address] [address] [address] Sayda PiresGFR-NON AF MOSOTHO>60Normal>=60The [facility] [place]woodComment on above:Performed By: #### CMREP #### [facility] [place] [facility] [address] [place] [address] Dr. Sayda KapoorGlobulin (S) [Mass/Vol]2.7 g/dLNormalThe [facility] [place]woodComment on above:Performed By: #### CMREP #### [facility] [place] [facility] [address] [place] [address] Dr. Sayda KapoorGlucose [Mass/Vol]101 mg/fRVkhigd21-648Uzw [facility] [place] Comment on above:Performed By: #### CMREP #### [facility] [place] [facility] [address] [address] [address] Sayda KapoorPotassium [Moles/Vol]3.4 mmol/LCritically low3.5-5.1The [facility] [place]woodComment on above:Performed By: #### CMREP #### [facility] [place] [facility] [address] [address] [address] Sayda KapoorProtein [Mass/Vol]5.1 g/dLCritically low6.4-8.2The [facility] [place]Comment on above:Performed By: #### CMREP #### [facility] [place] [facility] [address] [address] [address] Sayda KapoorSomagalium [Moles/Vol]140 mmol/LAnrjli944-181Vhw [facility] [place] Comment on above:Performed By: #### CMREP #### [facility] [place] [facility] [address] [place] [address] Dr. Sayda Gonzalez nitrogen [Mass/Vol]20.0 mg/dLCritically high7.0-18.0The [facility] [place]Comment on above:Performed By: #### CMREP #### [facility] [place] [facility] [address] [place] [address] Dr. Sayda Gonzalez nitrogen/Creatinine [Mass ratio]18.7 mg/mgNormalThe [facility] [place]woodComment on above:Performed By: #### CMREP #### [facility] [place] [facility] [address] [place] [address] Dr. Sayda KapoorT3, TOTAL (TRIIODOTHYRONINE)on 42-28-5127A3, TOTAL93 ng/dLNormal 71-180The [facility] [place]woodComment on above:Performed By: #### BNP, CMP, LIPA, TONI #### [facility] [place] [facility] [address] [place] [address] Dr. Sayda Motley 64-05-4095Gwutbnyhucv peptide B (Bld) [Mass/Vol]2419.0 pg/mLCritically high<=900.0The [facility] [place]Comment on above:Performed By: #### BNP, CMP, LIPA, TONI #### [facility] [place] [facility] [address] [place] [address] Dr. Sayda Foreman BETTE 3-6on [id number] [Catalytic activity/Vol]88 U/L Trovuf69-647Ets [facility] [place]woodComment on above:Performed By: #### QNTTB #### [facility] [place] [facility] [address] [place] [address] Dr. Sayda Ortega.MB [Mass/Vol]1.44 ng/mLNormal<=3.60The [facility] [place] Comment on above:Performed By: #### QNTTB #### [facility] [place] [facility] [address] [place] [address] Dr. Sayda KapoorHSTROP15.1 pg/mLNormal4.0-76.1[facility] CenterComment on above:Result Comment: CUT-OFF POINTS HAVE BEEN ESTABLISHED BASED ON THE FOURTH UNIVERSAL DEFINITIONS OF MYOCARDIAL INFARCTION. THE UPPER REFERENCE LIMIT (URL) OF TROPONIN, DEFINED THE 99TH PERCENTILE OF cTnI DISTRIBUTION IN A REFERENCE POPULATION, HAS BEEN CONFIRMED THE DECISION THRESHOLD FOR [place] DIAGNOSIS.Performed By: #### QNTTB #### [facility] [place] [facility] [address] [place] [address] Dr. Sayda Casas AUTO DIFFon 80-45-2521OYGG #0.1 103/ulNormal0.0-0.1The [facility] [place]wood[facility] on above:Performed By: #### CBC #### [facility] [place] [facility] [address] [place] [address] Dr. Sayda KapoorBasophils/100 WBC (Bld)0.5 %Normal0.2-2.0[facility] Comment on above:Performed By: #### CBC #### [facility] [place] [facility] [address] [place] [address] Dr. Sayda Patterson #0.2 103/ulNormal0.0-0.7The [facility] [place]woodComment on above: Performed By: #### CBC #### [facility] [place] [facility] [address] [place] [address] Dr. Sayda Piresosinophils/100 WBC (Bld)1.8 %Normal0.9-7.0The [facility] [place] Comment on above:Performed By: #### CBC #### [facility] [place] [facility] [address] [place] [address] Dr. Sayda Piresrythrocyte distribution width (RBC) [Ratio]15.7 %Critically high 11.0-15.0The [facility] [place]wood[facility] on above:Performed By: #### CBC #### [facility] [place] [facility] [address] [address] [address] Sayda KapoorHematocrit (Bld) [Volume fraction]27.0 %Critically low42.0-54.0 The [facility] [place]woodComment on above:Performed By: #### CBC #### [facility] [place] [address] [address] [address] Sayda KapoorHemoglobin (Bld) [Mass/Vol]7.9 g/dLCritically low14.0-18.0The [facility]Comment [facility] above:Performed By: #### CBC #### [facility] [place] [address] [place] [address] Dr. Sayda KapoorIG #0.06 10e3/ulCritically high0.00-0.03The [facility] [place] Comment on above:Performed By: #### CBC #### [facility] [place] [facility] [address] [place] [address] Dr. Sayda KapoorIG %0.6 %Critically high0.0-0.5The [facility] [place]woodComment on above:Performed By: #### CBC #### [facility] [place] [facility] [address] [place] [address] Dr. Sayda Nixon #1.2 103/ulNormal1.2-3.8The [facility] [place]woodComment on above:Performed By: #### CBC #### [facility] [place] [facility] [address] [place] [address] Dr. Sayda Contrerashocytes/100 WBC (Bld)13.0 %Critically low20.5-60.0The [facility] [place]woodComment on above:Performed By: #### CBC #### [facility] [place] [facility] [address] [place] [address] Dr. Sayda KapoorMANUAL DIFF REQNONormalThe [facility] [place]woodComment on above: Performed By: #### CBC #### [facility] [place] [facility] [address] [place] [address] Dr. Sayda Damon (RBC) [Entitic mass]23.1 pgCritically low25.9-34.0The [facility] [place]woodComment on above:Performed By: #### CBC #### [facility] [address] [address] [address] Sayda SamanoHC (RBC) [Mass/Vol]29.3 g/dLCritically low29.9-35.2The [facility] BeachwoodComment on above:Performed By: #### CBC #### [facility] [place] [facility] [address] [address] [address] Sayda SamanoV (RBC) [Entitic vol]78.9 fLCritically low80.0-94.0The [facility], BeachwoodComment on above:Performed By: #### CBC #### [facility] [place] [facility] [address] [address] [address] Sayda Mendiola #0.8 103/ulNormal0.3-0.8The [facility], BeachwoodComment on above:Performed By: #### CBC #### [facility] [place] [facility] [address] [address] [address] Sayda De La Torreocytes/100 WBC (Bld)8.0 %Normal1.7-12.0[facility] Comment on above:Performed By: #### CBC #### [facility] [place] [facility] [address] [address] [address] Sayda Nicole #7.2 103/ulCritically high1.4-6.5The [facility] [place] Comment on above:Performed By: #### CBC #### [facility] [place] [facility] [address] [address] [address] Sayda Infanteutrophils/100 WBC (Bld)76.1 %Critically high43.0-75.0The [facility], [place]woodComment on above:Performed By: #### CBC #### [facility] [place] [facility] [address] [address] [address] Sayda Portillolet mean volume (Bld) [Entitic vol]9.9 fLNormal9.5-13.5The [facility], BeachwoodComment on above:Performed By: #### CBC #### [facility] [place] [facility] [address] [address] [address] Sayda KapoorPLT320 103/dvXazvhy704-914Tlh Jeannine HospitalComment on above: Performed By: #### CBC #### [facility] [place] [facility] [address] [address] [address] Sayda KapoorRBC3.42 106/ulCritically low4.70-6.10The [facility], BeachwoodComment on above:Performed By: #### CBC #### [facility] [place] [facility] [address] [address] [address] Sayda KapoorWBC9.4 103/ulNormal4.0-11.0The [facility], BeachwoodComment on above: Performed By: #### CBC #### [facility] [place] [facility] [address] [address] [address] Sayda FrancoSO #0.0 103/ulNormal0.0-0.1The [facility], BeachwoodComment on above:Performed By: #### DIG #### [facility] [place] [facility] [address] [address] [address] Sayda Francosophils/100 WBC (Bld)0.4 %Normal0.2-2.0The [facility] [place] Comment on above:Performed By: #### DIG #### [facility] [place] [facility] [address] [address] [address] Sayda Patterson #0.1 103/ulNormal0.0-0.7The [facility] [place]woodComment on above: Performed By: #### DIG #### [facility] [place] [facility] [address] [address] [address] Sayda Piresosinophils/100 WBC (Bld)1.0 %Normal0.9-7.0The [facility] [place] Comment on above:Performed By: #### DIG #### [facility] [place] [facility] [address] [address] [address] Sayda Piresrythrocyte distribution width (RBC) [Ratio]15.8 %Critically high 11.0-15.0The [facility], [place]woodComment on above:Performed By: #### DIG #### [facility] [place] [facility] [address] [place] [address] Dr. Sayda KapoorHematocrit (Bld) [Volume fraction]28.0 %Critically low42.0-54.0 The [facility], BeachwoodComment on above:Performed By: #### DIG #### [facility] [place] [facility] [address] [place] [address] Dr. Sayda KapoorHemoglobin (Bld) [Mass/Vol]8.0 g/dLCritically low14.0-18.0The [facility], [place]woodComment on above:Performed By: #### DIG #### [facility] [place] [facility] [address] [place] [address] Dr. Sayda Loredo #0.03 10e3/ulNormal0.00-0.03The [facility], BeachwoodComment on above:Performed By: #### DIG #### [facility] [place] [facility] [address] [place] [address] Dr. Sayda Loredo %0.4 %Normal0.0-0.5The [facility], [place]woodComment on above: Performed By: #### DIG #### [facility] [place] [facility] [address] [place] [address] Dr. Sayda Nixon #1.2 103/ulNormal1.2-3.8The [facility], BeachwoodComment on above:Performed By: #### DIG #### [facility] [place] [facility] [address] [place] [address] Dr. Sayda Contrerashocytes/100 WBC (Bld)14.3 %Critically low20.5-60.0[facility] CenterComment on above:Performed By: #### DIG #### [facility] [place] [facility] [address] [place] [address] Dr. Sayda ThibodeauxUAL DIFF REQNONormalThe [facility], [place]woodComment on above: Performed By: #### DIG #### [facility] [place] [facility] [address] [place] [address] Dr. Sayda Damon (RBC) [Entitic mass]23.3 pgCritically low25.9-34.0The [facility], [place]woodComment on above:Performed By: #### DIG #### [facility] [place] [facility] [address] [place] [address] Dr. Sayda Samano (RBC) [Mass/Vol]28.6 g/dLCritically low29.9-35.2The [facility], [place]woodComment on above:Performed By: #### DIG #### [facility] [place] [facility] [address] [place] [address] Dr. Sayda Miranda (RBC) [Entitic vol]81.4 lNPgqvpu31.0-94.0The [facility], [place]woodComment on above:Performed By: #### DIG #### [facility] [place] [facility] [address] [place] [address] Dr. Sayda Mendiola #0.6 103/ulNormal0.3-0.8The [facility], [place]woodComment on above:Performed By: #### DIG #### [facility] [place] [facility] [address] [place] [address] Dr. Sayda De La Torreocytes/100 WBC (Bld)7.1 %Normal1.7-12.0The [facility] [place] Comment on above:Performed By: #### DIG #### [facility] [place] [facility] [address] [place] [address] Dr. Sayda Nicole #6.2 103/ulNormal1.4-6.5The [facility], [place]woodComment on above:Performed By: #### DIG #### [facility] [place] [facility] [address] [place] [address] Dr. Sayda Infanteutrophils/100 WBC (Bld)76.8 %Critically high43.0-75.0The [facility], [place]woodComment on above:Performed By: #### DIG #### [facility] [place] [facility] [address] [place] [address] Dr. Sayda Portillolet mean volume (Bld) [Entitic vol]9.5 fLNormal9.5-13.5The [facility], BeachwoodComment on above:Performed By: #### DIG #### [facility] [place] [facility] [address] [place] [address] Dr. Sayda TorresT252 103/nqSffzxa773-814Wio [facility], BeachwoodComment on above: Performed By: #### DIG #### [facility] [place] [facility] [address] [place] [address] Dr. Sayda KapoorRBC3.44 106/ulCritically low4.70-6.10The [facility], BeachwoodComment on above:Performed By: #### DIG #### [facility] [place] [facility] [address] [place] [address] [address] [address] Sayda KapoorWBC8.1 103/ulNormal4.0-11.0The [facility], BeachwoodComment on above: Performed By: #### DIG #### [facility] [place] [facility] [address] [place] [address] [address] [address] Sayda Ravi CHEST WO W CONon [id number] CHEST WO W CONEXAMINATION: CTA CHEST WO W CON HISTORY: Paroxysmal [...] Electronically authenticated by: CL POTTS Date: 2022-10-22 09:30NormClermont County HospitalCULTURE URINEon [id number] URINECulture Observations: NO GROWTH.NormalThe [facility], BeachwoodComment on above:Performed By: #### DIG #### [facility] [place] [facility] [address], [place] [address] Dr. Sayda Carmona [id number] ng/mLNormal0.9-2.0The [facility], BeachwoodComment on above:Performed By: #### BNP, CMP, LIPA, TONI #### [facility] [place] [facility] [address] [address] [address] Alfredo ChangECHOCARDIO M/2D COMPLETEon [id number] M/2D COMPLETE Patient: AYO ALICIA Exam Date: 10/22/2022 : 1960 Gender:M Ordering : DR PERICO MCCABE . Admission #: [id number] Family : DR GLORIA PAGAN M.D. Order #: [id number] CLICK HERE TO VIEW EXAM ECHOCARDIOGRAM REPORT [...] by: Tacos Whitney M.D. on 10/22/2022 at 16:41White HospitalPROF 14(COMP METB)on [id number] [Mass/Vol]2.6 g/dLCritically low 3.4-5.0The [facility], BeachwoodComment on above:Performed By: #### BNP, CMP, LIPA, TONI #### [facility] [place] [facility] [address] [place] [address] Dr. Sayda KapoorAlbumin/Globulin [Mass ratio]1.0 {ratio}NormalThe [facility], BeachwoodComment on above:Performed By: #### BNP, CMP, LIPA, TONI #### [facility] [place] [facility] [address] [place] [address] Dr. Sayda Mattson [Catalytic activity/Vol]61 U/MUvvccd53-396Fzk [facility], BeachwoodComment on above:Performed By: #### BNP, CMP, LIPA, TONI #### [facility] [place] [facility] [address] [place] [address] Dr. Sayda Alvarado [Catalytic activity/Vol]37 U/DIaejbp30-97Vjd [facility], BeachwoodComment on above:Performed By: #### BNP, CMP, LIPA, TONI #### [facility] [place] [facility] [address] [place] [address] Dr. Sayda Delgadillo gap [Moles/Vol]11.4 mmol/LNormalThe [facility] [place] Comment on above:Performed By: #### BNP, CMP, LIPA, TONI #### [facility] [place] [facility] [address] [place] [address] Dr. Sayda Fitzpatrick [Catalytic activity/Vol]20 U/NEniqpu46-88Ucd [facility], BeachwoodComment on above:Performed By: #### BNP, CMP, LIPA, TONI #### [facility] [place] [facility] [address] [place] [address] Dr. Sayda Garrettirubin [Mass/Vol]1.4 mg/dLCritically high0.2-1.0The [facility], BeachwoodComment on above:Performed By: #### BNP, CMP, LIPA, TONI #### [facility] [place] [facility] [address] [place] [address] Dr. Sayda KapoorCalcium [Mass/Vol]8.1 mg/dLCritically low8.5-10.1The [facility], BeachwoodComment on above:Performed By: #### BNP, CMP, LIPA, TONI #### [facility] [place] [facility] [address] [place] [address] Dr. Sayda KapoorChloride [Moles/Vol]104 mmol/PRjnzmm47-944Kzo [facility] [place] Comment on above:Performed By: #### BNP, CMP, LIPA, TONI #### [facility] [place] [facility] [address] [place] [address] Dr. Sayda KapoorCO2 [Moles/Vol]27.6 mmol/OOneikc62.0-32.0The [facility] [place] Comment on above:Performed By: #### BNP, CMP, LIPA, TONI #### [facility] [place] [facility] [address] [place] [address] Dr. Sayda KapoorCreatinine [Mass/Vol]1.07 mg/dLNormal0.70-1.30The [facility], BeachwoodComment on above:Performed By: #### BNP, CMP, LIPA, TONI #### [facility] [place] [facility] [address] [place] [address] Dr. Sayda PiresGFR-AF MOSOTHO>60Normal>=60The [facility], [place]woodComment on above:Performed By: #### BNP, CMP, LIPA, TONI #### [facility] [place] [facility] [address] [place] [address] Dr. Sayda PiresGFR-NON AF MOSOTHO>60Normal>=60The [facility], BeachwoodComment on above:Performed By: #### BNP, CMP, LIPA, TONI #### [facility] [place] [facility] [address] [place] [address] Dr. Sayda KapoorGlobulin (S) [Mass/Vol]2.5 g/dLNormalThe [facility], BeachwoodComment on above:Performed By: #### BNP, CMP, LIPA, TONI #### [facility] [place] [facility] [address] [place] [address] Dr. Sayda KapoorGlucose [Mass/Vol]96 mg/aEInmyik20-574PetMercy Health [facility] Comment on above:Performed By: #### BNP, CMP, LIPA, TONI #### [facility] [place] [facility] [address] [address] [address] Sayda KapoorPotassium [Moles/Vol]4.0 mmol/LNormal3.5-5.1[facility] Comment on above:Performed By: #### BNP, CMP, LIPA, TONI #### [facility] [place] [facility] [address] [place] [address] Dr. Sayda KapoorProtein [Mass/Vol]5.1 g/dLCritically low6.4-8.2[facility] Medical CenterComment on above:Performed By: #### BNP, CMP, LIPA, TONI #### [facility] [place] [facility] [address] [place] [address] Dr. Sayda KapoorSodium [Moles/Vol]139 mmol/RRnautd449-854TpkMercy Health St. [facility] Comment on above:Performed By: #### BNP, CMP, LIPA, TONI #### [facility] [place] [facility] [address] [place] [address] Dr. Sayda KapoorUrea nitrogen [Mass/Vol]25.0 mg/dLCritically high7.0-18.0[facility] Vincent Medical CenterComment on above:Performed By: #### BNP, CMP, LIPA, TONI #### [facility] [place] [facility] [address] [place] [address] Dr. Sayda Gonzalez nitrogen/Creatinine [Mass ratio]23.4 mg/mgNormalThe [facility], [place]woodComment on above:Performed By: #### BNP, CMP, LIPA, TONI #### [facility] [place] [facility] [address] [place] [address] Dr. Sayda Paez RANDOM W/MICROSCOPICon [id number] SEENNormalNONE SEENMercy Health St. Vincent Medical CenterComment on above:Performed By: #### DIG #### [facility] [place] [facility] [address] [place] [address] Dr. Sayda KapoorBilirubin Ql (U)NegativeNormalNEGATIVEMercy Health St. [facility] Comment on above:Performed By: #### DIG #### [facility] [place] [facility] [address] [address] [address] Sayda KapoorCASTNONE SEENNormalNONE SEENMercy Health St. Vincent Medical CenterComcorewell health ze[facility] hospital on above:Performed By: #### DIG #### [facility] [place] [facility] [address] [address] [address] Sayda Stanleyarity (U)CLEARNormalCLEARMercy Health St. Vincent Medical CenterComment on above: Performed By: #### DIG #### [facility] [place] [facility] [address] [address] [address] Sayda Bellelor (U)YELLOWNormalYELLOWMercy Health St. Vincent Medical CenterComment on above: Performed By: #### DIG #### [facility] [place] [facility] [address] [address] [address] Sayda KapoorCrystals LM Nom (Urine sed)NONE SEENNormalNONE SEENMercy Health St. Vincent Medical CenterComment on above:Performed By: #### DIG #### [facility] [place] [facility] [address] [address] [address] Sayda Callowaythelial cells LM Ql (Urine sed)NONE SEENNormalNONE SEEN /RARE The [facility], BeachwoodComment on above:Performed By: #### DIG #### [facility] [place] [facility] [address] [place] [address] Dr. Sayda KapoorGlucose Ql (U)NegativeNormalNEGATIVEMercy Health St. Vincent Medical CenterComment on above:Performed By: #### DIG #### [facility] [place] [facility] [address] [address] [address] Sayda KpaoorHemoglobin Ql (U)TRACE-INTACTAbnormalNEGATIVEMercy Health St. Vincent Medical CenterComment on above:Performed By: #### DIG #### [facility] [place] [facility] [address] [place] [address] Dr. Sayda KapoorKetones Ql (U)NegativeNormalNEGATIVEMercy Health St. Vincent Medical CenterComcorewell health zeeland hospital on above:Performed By: #### DIG #### [facility] [place] [facility] [address] [address] [address] Sayda KapoorLEUKOCYTESNegativeNormalNEGATIVEMercy Health St. Vincent Medical CenterComment on above:Performed By: #### DIG #### [facility] [place] [facility] [address] [address] [address] Sayda AlamoCOUSTRACEAbnormalNONE SEENThe [facility], BeachwoodComment on above:Performed By: #### DIG #### [facility] [place] [facility] [address] [place] [address] Dr. Sayda Maddoxtrite Ql (U)NegativeNormalNEGATIVEThe [facility], BeachwoodComment on above:Performed By: #### DIG #### [facility] [place] [facility] [address] [place] [address] Dr. Sayda KapoorpH (U)6.0 [pH]Normal5-9The [facility], BeachwoodComment on above: Performed By: #### DIG #### [facility] [place] [facility] [address] [place] [address] Dr. Sayda KapoorIdysoFRG7-6Uubobh0-4Ddz [facility], BeachwoodComment on above:Performed By: #### DIG #### [facility] [place] [facility] [address] [place] [address] Dr. Sayda KapoorSPEC GRAVITY1.237Xjimpb3.005-<=1.025The [facility], BeachwoodComment on above:Performed By: #### DIG #### [facility] [place] [facility] [address] [place] [address] Dr. Sayda Paez QANNQJW89 mg/dlAbnormalNEGATIVE/ TRACEThe [facility] [place] Comment on above:Performed By: #### DIG #### [facility] [place] [facility] [address] [place] [address] Dr. Sayda Marshallinogen Qn (U)1.0 {Rosi'U}/dLNormal0.2 - 1.0The [facility], BeachwoodComment on above:Performed By: #### DIG #### [facility] [place] [facility] [address] [place] [address] Dr. Sayda RiveroBCNONFranny SEENNormalNONE SEENThe [facility], BeachwoodComment on above: Performed By: #### DIG #### [facility] [place] [facility] [address] [place] [address] Dr. Sayda Motley 28-45-8031Lecjlfskjqy peptide B (Bld) [Mass/Vol]4504.0 pg/mLCritically high<=900.0The [facility], BeachwoodComment on above:Performed By: #### QNTTB #### [facility] [place] [facility] [address] [place] [address] Dr. Sayda AMOS 3-6on 51-35-0063ZK [Catalytic activity/Vol]111 U/L Qbfnva04-514Yan [facility], BeachwoodComment on above:Performed By: #### CMREP #### [facility] [place] [facility] [address] [place] [address] Dr. Sayda JonesMB [Mass/Vol]1.72 ng/mLNormal<=3.60[facility] Comment on above:Performed By: #### CMREP #### [facility] [place] [facility] [address] [place] [address] Dr. Sayda Pitt15.2 pg/mLNormal4.0-76.1The [facility] on above:Result Comment: CUT-OFF POINTS HAVE BEEN ESTABLISHED BASED ON THE FOURTH UNIVERSAL DEFINITIONS OF MYOCARDIAL INFARCTION. THE UPPER REFERENCE LIMIT (URL) OF TROPONIN, DEFINED THE 99TH PERCENTILE OF cTnI DISTRIBUTION IN A REFERENCE POPULATION, HAS BEEN CONFIRMED THE DECISION THRESHOLD FOR [place] DIAGNOSIS.Performed By: #### CMREP #### [facility] [place] [facility] [address] [place] [address] Dr. Sayda AMOS ADMITon [id number] [Catalytic activity/Vol]114 U/L Gqzijv02-490Fqh [facility] Hospitalment on above:Performed By: #### QNTTB #### [facility] [place] [facility] [address] [place] [address] Dr. Sayda Park [Mass/Vol]1.94 ng/mLNormal<=3.60[facility] Comment on above:Performed By: #### QNTTB #### [facility] [place] [facility] [address] [place] [address] Dr. Sayda Pitt17.4 pg/mLNormal4.0-76.1The [facility] on above:Result Comment: CUT-OFF POINTS HAVE BEEN ESTABLISHED BASED ON THE FOURTH UNIVERSAL DEFINITIONS OF MYOCARDIAL INFARCTION. THE UPPER REFERENCE LIMIT (URL) OF TROPONIN, DEFINED THE 99TH PERCENTILE OF cTnI DISTRIBUTION IN A REFERENCE POPULATION, HAS BEEN CONFIRMED THE DECISION THRESHOLD FOR [place] DIAGNOSIS.Performed By: #### QNTTB #### [facility] [place] [facility] [address] [place] [address] Dr. Sayda KapoorMYO105 ng/mLCritically pszi76-49Upg [facility] BeachwoodComment on above:Performed By: #### QNTTB #### [facility] [place] [facility] [address] [place] [address] Dr. Sayda Casas AUTO DIFFon [id number] #0.0 103/ulNormal0.0-0.1The [facility], BeachwoodComment on above:Performed By: #### CMREP #### [facility] [facility] [place] [facility] [address] [place] [address] Dr. Sayda KapoorBasophils/100 WBC (Bld)0.3 %Normal0.2-2.0The [facility] [place] Comment on above:Performed By: #### CMREP #### [facility] [place] [facility] [address] [place] [address] Dr. Sayda Patterson #0.0 103/ulNormal0.0-0.7The [facility], [place] on above: Performed By: #### CMREP #### [facility] [place] [facility] [address] [place] [address] Dr. Sayda Piresosinophils/100 WBC (Bld)0.1 %Critically low0.9-7.0The [facility] [place] on above:Performed By: #### CMREP #### [facility] [place] [facility] [address] [place] [address] Dr. Sayda Piresrythrocyte distribution width (RBC) [Ratio]15.6 %Critically high 11.0-15.0The [facility] [place] on above:Performed By: #### CMREP #### [facility] [place] [facility] [address] [place] [address] Dr. Sayda KapoorHematocrit (Bld) [Volume fraction]29.7 %Critically low42.0-54.0 The [facility] [place] on above:Performed By: #### CMREP #### [facility] [place] [facility] [address] [place] [address] Dr. Sayda KapoorHemoglobin (Bld) [Mass/Vol]8.7 g/dLCritically low14.0-18.0The [facility] [place] on above:Performed By: #### CMREP #### [facility] [place] [facility] [address] [place] [address] Dr. Sayda Loredo #0.06 10e3/ulCritically high0.00-0.03The [facility] [place] Comment on above:Performed By: #### CMREP #### [facility] [place] [facility] [address] [place] [address] Dr. Sayda Loredo %0.6 %Critically high0.0-0.5The [facility] [place] on above:Performed By: #### CMREP #### [facility] [place] [facility] [address] [place] [address] Dr. Sayda Nixon #1.0 103/ulCritically low1.2-3.8The [facility] [place] Comment on above:Performed By: #### CMREP #### [facility] [place] [facility] [address] [place] [address] Dr. Sayda Contrerashocytes/100 WBC (Bld)9.0 %Critically low20.5-60.0The [facility] [place] on above:Performed By: #### CMREP #### [facility] [place] [facility] [address] [place] [address] Dr. Sayda ThibodeauxUAL DIFF REQNONormalThe [facility] [place]Comment on above: Performed By: #### CMREP #### [facility] [place] [facility] [address] [place] [address] Dr. Sayda Damon (RBC) [Entitic mass]23.6 pgCritically low25.9-34.0The [facility] [place] on above:Performed By: #### CMREP #### [facility] [place] [facility] [address] [place] [address] Dr. Sayda Samano (RBC) [Mass/Vol]29.3 g/dLCritically low29.9-35.2The [facility] [place]Comment on above:Performed By: #### CMREP #### [facility] [place] [facility] [address] [place] [address] Dr. Sayda Miranda (RBC) [Entitic vol]80.5 cYIzmdgb38.0-94.0The [facility] [place] on above:Performed By: #### CMREP #### [facility] [place] [facility] [address] [place] [address] Dr. Sayda Mendiola #0.7 103/ulNormal0.3-0.8The [facility] [place] on above:Performed By: #### CMREP #### [facility] [place] [facility] [address] [place] [address] Dr. Sayda De La Torreocytes/100 WBC (Bld)6.0 %Normal1.7-12.0The [facility] [place] Comment on above:Performed By: #### CMREP #### [facility] [place] [facility] [address] [place] [address] Dr. Sayda Nicole #9.1 103/ulCritically high1.4-6.5The [facility] [place] Comment on above:Performed By: #### CMREP #### [facility] [place] [facility] [address] [place] [address] Dr. Sayda Infanteutrophils/100 WBC (Bld)84.0 %Critically high43.0-75.0The [facility] [place] on above:Performed By: #### CMREP #### [facility] [place] [facility] [address] [place] [address] Dr. Sayda Portillolet mean volume (Bld) [Entitic vol]10.1 fLNormal9.5-13.5The [facility] [place] on above:Performed By: #### CMREP #### [facility] [place] [facility] [address] [place] [address] Dr. Sayda KapoorPLT374 103/nxMqtclj960-468Dhd [facility] [place]Comment on above: Performed By: #### CMREP #### [facility] [place] [facility] [address] [place] [address] Dr. Sayda KapoorRBC3.69 106/ulCritically low4.70-6.10The [facility] [place]Comment on above:Performed By: #### CMREP #### [facility] [place] [facility] [address] [place] [address] Dr. Sayda KapoorWBC10.8 103/ulNormal4.0-11.0The [facility] [place] on above:Performed By: #### CMREP #### [facility] [place] [facility] [address] [place] [address] Dr. Sayda KapoorCovid-19 PCR ([facility])on [id number]-CoV-2 (COVID-19) RNA KAT+probe Ql (Unsp spec)Not detectedNormalNOT DETECTEDThe [facility] [place] Comment on above:Result Comment: When diagnostic testing is negative, the [...] for this test is supported by the [place] of Health and Human Service's declaration that circumstances exist to justify the emergency use of in vitro diagnostics for the detection and/or diagnosis of the virus that causes COVID-19. This EUA will remain in effect for the duration of the COVID-19 declaration justifying emergency of IVDs, unless it is terminated or revoked by the FDA (after which the test may no longer be used).Performed By: #### DIG #### [facility] [place] [facility] [address] [place] [address] Dr. Sayda KapoorLACTATE/LACTIC ACIDon [id number] [Moles/Vol]2.5 mmol/L Critically high0.4-1.9The [facility] [place] on above:Performed By: #### QNTTB #### [facility] [place] [facility] [address] [place] [address] Dr. Sayda Dowctate [Moles/Vol]2.3 mmol/LCritically high0.4-1.9The [facility] [place] on above:Performed By: #### BNP, CMP, LIPA, TONI #### [facility] [place] [facility] [address] [place] [address] Dr. Sayda Li 14(COMP METB)on [id number] [Mass/Vol]2.8 g/dL Critically low3.4-5.0The [facility] [place] on above:Performed By: #### QNTTB #### [facility] [place] [facility] [address] [place] [address] Dr. Sayda KapoorAlbumin/Globulin [Mass ratio]0.9 {ratio}NormalThe [facility] [place]Comment on above:Performed By: #### QNTTB #### [facility] [place] [facility] [address] [place] [address] Dr. Sayda Mattson [Catalytic activity/Vol]66 U/DCgfikr20-827Jtr [facility] [place]woodComment on above:Performed By: #### QNTTB #### [facility] [place] [facility] [address] [address] [address] Sayda Alvarado [Catalytic activity/Vol]41 U/ELnfrwf29-17Gcy [facility] [place]woodComment on above:Performed By: #### QNTTB #### [facility] [place] [facility] [address] [address] [address] Sayda Delgadillo gap [Moles/Vol]11.9 mmol/LNormalThe [facility] [place] Comment on above:Performed By: #### QNTTB #### [facility] [place] [facility] [address] [place] [address] Dr. Sadya KapoorAST [Catalytic activity/Vol]22 U/MZxoohf25-23Gva [facility] [place]Comment on above:Performed By: #### QNTTB #### [facility] [place] [facility] [address] [place] [address] Dr. Sayda KapoorBilirubin [Mass/Vol]1.3 mg/dLCritically high0.2-1.0The [facility] [place] on above:Performed By: #### QNTTB #### [facility] [place] [facility] [address] [address] [address] Sayda KapoorCalcium [Mass/Vol]8.1 mg/dLCritically low8.5-10.1The [facility] [place] on above:Performed By: #### QNTTB #### [facility] [place] [facility] [address] [address] [address] Sayda KapoorChloride [Moles/Vol]105 mmol/IMbjoaa77-111Cji [facility] [place] Comment on above:Performed By: #### QNTTB #### [facility] [place] [facility] [address] [address] [address] Sayda KapoorCO2 [Moles/Vol]27.4 mmol/BScmiqa84.0-32.0The [facility] [place] Comment on above:Performed By: #### QNTTB #### [facility] [place] [facility] [address] [place] [address] Dr. Sayda KapoorCreatinine [Mass/Vol]1.44 mg/dLCritically high0.70-1.30The [facility] [place] on above:Performed By: #### QNTTB #### [facility] [place] [facility] [address] [address] [address] Sayda PiresGFR-AF MAQHHMBU30 mL/min/1.31h4Ikbayu>=60[facility] Comment on above:Performed By: #### QNTTB #### [facility] [place] [facility] [address] [address] [address] Sayda PiresGFR-NON AF ELZCXJTG85 mL/min/1.08l2Mtmgwyvkcw low>=60The [facility] [place] on above:Performed By: #### QNTTB #### [facility] [place] [facility] [address] [address] [address] Sayda KapoorGlobulin (S) [Mass/Vol]3.0 g/dLNormalThe [facility] [place]Comment on above:Performed By: #### QNTTB #### [facility] [place] [facility] [address] [address] [address] Sayda KapoorGlucose [Mass/Vol]132 mg/dLCritically hdig37-951Ffa [facility] [place]Comment on above:Performed By: #### QNTTB #### [facility] [place] [facility] [address] [place] [address] Dr. Sayda KapoorPotassium [Moles/Vol]4.3 mmol/LNormal3.5-5.1The [facility] [place] Comment on above:Performed By: #### QNTTB #### [facility] [place] [facility] [address] [place] [address] Dr. Sayda KapoorProtein [Mass/Vol]5.8 g/dLCritically low6.4-8.2The [facility] [place] on above:Performed By: #### QNTTB #### [facility] [place] [facility] [address] [place] [address] Dr. Sayda KapoorSodium [Moles/Vol]140 mmol/YUithpd846-107Kxw [facility] [place] Comment on above:Performed By: #### QNTTB #### [facility] [place] [facility] [address] [place] [address] Dr. Sayda KapoorUrea nitrogen [Mass/Vol]31.0 mg/dLCritically high7.0-18.0The [facility] [place] on above:Performed By: #### QNTTB #### [facility] [place] [facility] [address] [place] [address] Dr. Sayda Gonzalez nitrogen/Creatinine [Mass ratio]21.5 mg/mgNormalThe [facility] [place]Comment on above:Performed By: #### QNTTB #### [facility] [place] [facility] [address] [place] [address] Dr. Sayda Montano4on [id number] [Mass/Vol]5.00 ug/dLNormal4.50-12.10The [facility] [place] on above:Performed By: #### QNTTB #### [facility] [place] [facility] [address] [place] [address] Dr. Sayda Pereyra [id number] uIU/mLNormal0.358-3.740The [facility] [place] on above:Performed By: #### QNTTB #### [facility] [place] [facility] [address] [place] [address] Dr. Sayda KapoorXR CHEST 1 Von [id number] CHEST 1 VEXAM: XR CHEST 1 V HISTORY: SHORTNESS OF BREATH COMPARISON: None. TECHNIQUE: Portable chest FINDINGS: IMPRESSION: Poor inspiratory effort. No focal consolidation or infiltrate. The heart is not enlarged. No pneumothorax or discrete pleural effusion. Electronically authenticated by: CUBA RO Date: 2022-10-21 18:09White HospitalCREATININEon 38-21-2047Zsjtnuzlrx [Mass/Vol]1.21 mg/dLNormal 0.70-1.30[facility] CenterComment on above:Performed By: #### BNP, CMP, LIPA, TONI #### [facility] [place] [facility] [address] [place] [address] Dr. Sayda PiresGFR-AF [place]>60Normal>=60The [facility] [place]Comment on above:Performed By: #### BNP, CMP, LIPA, TONI #### [facility] [place] [facility] [address] [place] [address] Dr. Sayda PiresGFR-NON AF [place]>60Normal>=60The [facility] [place] on above:Performed By: #### BNP, CMP, LIPA, TONI #### [facility] [place] [facility] [address] [place] [address] Dr. Sayda KapoorConsultation Noteon [id number] Note [id number]#1.00CD:127NormalFishJohns [facility] AUTO DIFFon [id number] #0.1 103/ulNormal0.0-0.1[facility] CenterComment on above:Performed By: #### BNP, CMP, LIPA, TONI #### [facility] [place] [facility] [address] [place] [address] Dr. Sayda KapoorBasophils/100 WBC (Bld)0.8 %Normal0.2-2.0[facility] Comment on above:Performed By: #### BNP, CMP, LIPA, TONI #### [facility] [place] [facility] [address] [place] [address] Dr. Sayda Patterson #0.2 103/ulNormal0.0-0.7The [facility] [place] on above: Performed By: #### BNP, CMP, LIPA, TONI #### [facility] [place] [facility] [address] [place] [address] Dr. Sayda Piresosinophils/100 WBC (Bld)2.9 %Normal0.9-7.0The [facility] [place] Comment on above:Performed By: #### BNP, CMP, LIPA, TONI #### [facility] [place] [facility] [address] [place] [address] Dr. Sayda Piresrythrocyte distribution width (RBC) [Ratio]14.3 %Azazmz43.0-15.0 The [facility] [place]Comment on above:Performed By: #### BNP, CMP, LIPA, TONI #### [facility] [place] [facility] [address] [place] [address] Dr. Sayda KapoorHematocrit (Bld) [Volume fraction]31.5 %Critically low42.0-54.0 The [facility] [place] on above:Performed By: #### BNP, CMP, LIPA, TONI #### [facility] [place] [facility] [address] [place] [address] Dr. Sayda KapoorHemoglobin (Bld) [Mass/Vol]10.1 g/dLCritically low14.0-18.0[facility] CenterComment on above:Performed By: #### BNP, CMP, LIPA, TONI #### [facility] [place] [facility] [address] [place] [address] Dr. Sayda Loredo #0.07 10e3/ulCritically high0.00-0.03The [facility] [place] Comment on above:Performed By: #### BNP, CMP, LIPA, TONI #### [facility] [place] [facility] [address] [place] [address] Dr. Sayda Loredo %1.1 %Critically high0.0-0.5The [facility] [place]Comment on above:Performed By: #### BNP, CMP, LIPA, TONI #### [facility] [place] [facility] [address] [place] [address] Dr. Sayda Nixon #1.1 103/ulCritically low1.2-3.8The [facility] [place] Comment on above:Performed By: #### BNP, CMP, LIPA, TONI #### [facility] [place] [facility] [address] [place] [address] Dr. Sayda Contrerashocytes/100 WBC (Bld)17.1 %Critically low20.5-60.0The [facility] HospitalComment [facility] above:Performed By: #### BNP, CMP, LIPA, TONI #### [facility] [place] [facility] [address] [place] [address] Dr. Sayda Shelton DIFF REQNONormalThe [facility] [place]Comment on above: Performed By: #### BNP, CMP, LIPA, TONI #### [facility] [place] [facility] [address] [place] [address] Dr. Sayda Samano (RBC) [Entitic mass]27.2 uhVqmszb78.9-34.0The [facility] HospitalComment on above:Performed By: #### BNP, CMP, LIPA, TONI #### [facility] [place] [facility] [address] [place] [address] Dr. Sayda Samano (RBC) [Mass/Vol]32.1 g/gIVdxflm87.9-35.2The [facility] [place] on above:Performed By: #### BNP, CMP, LIPA, TONI #### [facility] [place] [facility] [address] [place] [address] Dr. Sayda Samano (RBC) [Entitic vol]84.7 dNSputng07.0-94.0The [facility] [place] on above:Performed By: #### BNP, CMP, LIPA, TONI #### [facility] [place] [facility] [address] [place] [address] Dr. Sayda Mendiola #0.7 103/ulNormal0.3-0.8The [facility] [place]Comment on above:Performed By: #### BNP, CMP, LIPA, TONI #### [facility] [place] [facility] [address] [place] [address] Dr. Sayda De La Torreocytes/100 WBC (Bld)10.4 %Normal1.7-12.0The [facility] [place] Comment on above:Performed By: #### BNP, CMP, LIPA, TONI #### [facility] [place] [facility] [address] [place] [address] Dr. Sayda Nicole #4.5 103/ulNormal1.4-6.5The [facility] [place]Comment on above:Performed By: #### BNP, CMP, LIPA, TONI #### [facility] [place] [facility] [address] [place] [address] Dr. Sayda Infanteutrophils/100 WBC (Bld)67.7 %Oilsll06.0-75.0The [facility] [place]Comment on above:Performed By: #### BNP, CMP, LIPA, TONI #### [facility] [place] [facility] [address] [place] [address] Dr. Sayda KapoorPlatelet mean volume (Bld) [Entitic vol]9.0 fLCritically low 9.5-13.5The [facility] [place]Comment on above:Performed By: #### BNP, CMP, LIPA, TONI #### [facility] [place] [facility] [address] [place] [address] Dr. Sayda KapoorPLT318 103/vyOaspyt098-033Wyc [facility] [place]woodComment on above: Performed By: #### BNP, CMP, LIPA, TONI #### [facility] [place] [facility] [address] [place] [address] Dr. Sayda KapoorRBC3.72 106/ulCritically low4.70-6.10The [facility] [place]Comment on above:Performed By: #### BNP, CMP, LIPA, TONI #### [facility] [place] [facility] [address] [place] [address] Dr. Sayda KapoorWBC6.6 103/ulNormal4.0-11.0The [facility] [place]Comment on above: Performed By: #### BNP, CMP, LIPA, TONI #### [facility] [place] [facility] [address] [place] [address] Dr. Sayda Gamez 47-64-4755Vffikdfg [Mass/Vol]19.0 ng/mLCritically low 26.0-388.0The [facility] [place]woodComment on above:Performed By: #### BNP, CMP, LIPA, TONI #### [facility] [place] [facility] [address] [place] [address] Dr. Sayda Albarado AND TIBCon 07-26-2022% ABXYSIOOUX01.0 %NormalThe [facility] [place]Comment on above:Performed By: #### BNP, CMP, LIPA, TONI #### [facility] [place] [facility] [address] [place] [address] Dr. Sayda Albarado [Mass/Vol]30.0 ug/dLCritically low65.0-175.0The [facility] [place]woodComment on above:Performed By: #### BNP, CMP, LIPA, TONI #### [facility] [place] [facility] [address] [place] [address] Dr. Sayda KapoorTIBC QDTCFS028.0 ug/nAWzemzv242.0-450.0The [facility] [place] Comment on above:Performed By: #### BNP, CMP, LIPA, TONI #### [facility] [place] [facility] [address] [place] [address] Dr. Sayda DhillonCREATIC ELASTASE FECALon 35-62-7087Mxnjqtqjgy Elastase, Fecal 466 ug Elast./gNormal>200The [facility] [place]Comment on above:Result Comment: Severe Pancreatic Insufficiency: <100 Moderate Pancreatic Insufficiency: 100 - 200 Normal: >200Performed By: #### CMREP #### [facility] [place] [facility] [address] [place] [address] Dr. Sayda [place] DISORDERS EVALUATION RULE-OUT CASCon [id number] unitsNormal0-19The [facility], BeachwoodComment on above:Result Comment: Negative 0 - 19 Weak Positive 20 - 30 Moderate to Strong Positive >30 .Performed By: #### BNP, CMP, LIPA, TONI #### [facility] [place] [facility] [address] [place] [address] Dr. Sayda KapoorAtypical pANCANegativeNormalNegativeThe [facility], BeachwoodComment on above:Performed By: #### BNP, CMP, LIPA, TONI #### [facility] [place] [facility] [address] [address] [address] Sayda KapoorNotfranny:[place] continuesNoMercy Health Clermont HospitalComment on above:Performed By: #### BNP, CMP, LIPA, TONI #### [facility] [place] [facility] [address] [address] [address] Sayda KapoorNotfranny:[facility] Charles HospitalComment on above:Result Comment: Suggestive of irritable bowel syndrome (IBS). Careful evaluation of the patient's history, physical examination, and application of [place] III diagnostic criteria may help to rule in or rule out the diagnosis of IBS. Subsequent testing for Fecal Calprotectin (891018) may be recommended. If IBD is strongly suspected, subsequent testing with the Crohn's Disease Prognostic Profile (003824) that includes anti- glycan antibodies AMCA, ALCA, ACCA, and Sarbjit may aid in differential diagnosis.Performed By: #### BNP, CMP, LIPA, TONI #### [facility] [place] [facility] [address] [place] [address] Dr. Sayda KapoorSaccharomyces Cer. IgG<20.8Cebgkk3.0-24.9The [facility] [place] Comment on above:Result Comment: Negative <20.0 Equivocal 20.1 - 24.9 Positive >or= 25.0Performed By: #### BNP, CMP, LIPA, TONI #### [facility] [place] [facility] [address] [place] [address] Dr. Sayda Olivia/DGP SCRNegativeNormalNegativeThe [facility], BeachwoodComment on above:Performed By: #### BNP, CMP, LIPA, TONI #### [facility] [place] [facility] [address] [place] [address] Dr. Sayda KapoorLACTOFERRIN FECAL QUANTon [id number], Fecal, Quant. 35.24 ug/mL(g)Critically high0.00-7.24The [facility] Hospitalment on above: Result Comment: Results verified by repeat testing . Baseline (normal) [...] from those with non-inflammatory irritable bowel syndrome (IBS).Performed By: #### DIG #### [facility] [place] [facility] [address] [place] [address] Dr. Sayda Earl TB GOLD PLUSon [id number] CriteriaComment White HospitalComment on above:Result Comment: QuantiFERON-TB Gold Plus is a qualitative indirect test for M tuberculosis infection (including disease) and is intended for use in conjunction with risk assessment, radiography, and other medical and diagnostic evaluations. The QuantiFERON-TB Gold Plus result is determined by subtracting the Nil value from either TB antigen (Ag) value. The Mitogen tube serves as a control for the test.Performed By: #### QNTTB #### [facility] [place] [facility] [address] [place] [address] Dr. Sayda Earl IncubationIncubation performed.White HospitalComment on above:Performed By: #### QNTTB #### [facility] [place] [facility] [address] [place] [address] Dr. Sayda Earl Mitogen Value8.53 IU/mLNOhioHealth Grant Medical Center Comment on above:Performed By: #### QNTTB #### [facility] [place] [facility] [address] [place] [address] Dr. Sayda Earl Nil Value0.04 IU/mLNOhioHealth Grant Medical CenterComment on above:Performed By: #### QNTTB #### [facility] [place] [facility] [address] [place] [address] Dr. Sayda Earl TB1 Ag Value0.07 IU/mLNOhioHealth Grant Medical Center Comment on above:Performed By: #### QNTTB #### [facility] [place] [facility] [address] [place] [address] Dr. Sayda Earl TB2 Ag Value0.04 IU/mLNOhioHealth Grant Medical Center Comment on above:Performed By: #### QNTTB #### [facility] [place] [facility] [address] [place] [address] Dr. Sayda KapoorQuantiFERON-TB Gold PlusNegativeNormalNegativeThe [facility], BeachwoodComment on above:Result Comment: No response to M tuberculosis antigens detected. Infection with M tuberculosis is unlikely, but high risk individuals should be considered for additional testing (ATS/IDSA/CDC Clinical Practice Guidelines, 2017). The reference range is an Antigen minus Nil result of <0.35 IU/mL. Chemiluminescence immunoassay methodologyPerformed By: #### QNTTB #### [facility] [place] [facility] [address] [place] [address] Dr. Sayda KapoorCALPROTECTIN, FECALon [id number], Agkte830 ug/g Critically high0-120The [facility], BeachwoodComment on above:Result Comment: Concentration Interpretation Follow-Up <16 - 50 ug/g Normal None >50 -120 ug/g Borderline Re-evaluate in 4-6 weeks >120 ug/g Abnormal Repeat as clinically indicatedPerformed By: #### CMREP #### [facility] [place] [facility] [address] [place] [address] Dr. Sayda Figueredo B COREon 65-47-8532Ocd B Core Ab, TotNegativeNormalNegative The [facility], BeachwoodComment on above:Performed By: #### HBCORE #### [facility] [place] [facility] [address] [place] [address] Dr. Sayda Villanueva SURFACE ANTIGEN SCREENon 52-03-6079JPjFh ScreenNegative NormalNegativeThe [facility], BeachwoodComment on above:Performed By: #### BNP, CMP, LIPA, TONI #### [facility] [place] [facility] [address] [place] [address] Dr. Sayda LutherC AUTO DIFFon [id number] #0.1 103/ulNormal0.0-0.1The [facility], BeachwoodComment on above:Performed By: #### CBC #### [facility] [place] [facility] [address] [place] [address] Dr. Sayda KapoorBasophils/100 WBC (Bld)0.8 %Normal0.2-2.0The [facility] [place] Comment on above:Performed By: #### CBC #### [facility] [place] [facility] [address] [place] [address] Dr. Sayda Patterson #0.2 103/ulNormal0.0-0.7The [facility], BeachwoodComment on above: Performed By: #### CBC #### [facility] [place] [facility] [address] [place] [address] Dr. Sayda Piresosinophils/100 WBC (Bld)3.3 %Normal0.9-7.0The [facility] [place] Comment on above:Performed By: #### CBC #### [facility] [place] [facility] [address] [place] [address] Dr. Sayda Piresrythrocyte distribution width (RBC) [Ratio]14.6 %Fsjaco98.0-15.0 The [facility], BeachwoodComment on above:Performed By: #### CBC #### [facility] [place] [facility] [address] [place] [address] Dr. Sayda KapoorHematocrit (Bld) [Volume fraction]29.7 %Critically low42.0-54.[address] [facility] Medical CenterComment on above:Performed By: #### CBC #### [facility] [place] [facility] [address] [place] [address] Dr. Sayda KapoorHemoglobin (Bld) [Mass/Vol]9.5 g/dLCritically low14.0-18.0The [facility], BeachwoodComment on above:Performed By: #### CBC #### [facility] [place] [facility] [address] [place] [address] Dr. Sayda Loredo #0.03 10e3/ulNormal0.00-0.03The [facility], BeachwoodComment on above:Performed By: #### CBC #### [facility] [place] [facility] [address] [place] [address] Dr. Sadya Loredo %0.4 %Normal0.0-0.5The [facility], BeachwoodComment on above: Performed By: #### CBC #### [facility] [place] [facility] [address] [place] [address] Dr. Sayda Contreras #1.0 103/ulCritically low1.2-3.8The [facility] [place] Comment on above:Performed By: #### CBC #### [facility] [place] [facility] [address] [place] [address] Dr. Sayda Albarranmphocytes/100 WBC (Bld)13.6 %Critically low20.5-60.0The [facility], BeachwoodComment on above:Performed By: #### CBC #### [facility] [place] [facility] [address] [place] [address] Dr. Sayda Shelton DIFF REQNONormalThe [facility], BeachwoodComment on above: Performed By: #### CBC #### [facility] [place] [facility] [address] [place] [address] Dr. Sayda Samano (RBC) [Entitic mass]27.6 amUazqqd24.9-34.0The [facility], BeachwoodComment on above:Performed By: #### CBC #### [facility] [place] [facility] [address] [place] [address] Dr. Sayda Samano (RBC) [Mass/Vol]32.0 g/bGAzdunr66.9-35.2The [facility], BeachwoodComment on above:Performed By: #### CBC #### [facility] [place] [facility] [address] [place] [address] Dr. Sayda Miranda (RBC) [Entitic vol]86.3 eSNwcize37.0-94.0The [facility], BeachwoodComment on above:Performed By: #### CBC #### [facility] [place] [facility] [address] [place] [address] Dr. Sayda Mendiola #0.6 103/ulNormal0.3-0.8The [facility], BeachwoodComment on above:Performed By: #### CBC #### [facility] [place] [facility] [address] [place] [address] Dr. Sayda De La Torreocytes/100 WBC (Bld)8.6 %Normal1.7-12.0[facility] Comment on above:Performed By: #### CBC #### [facility] [place] [facility] [address] [place] [address] Dr. Sayda Nicole #5.2 103/ulNormal1.4-6.5The [facility], BeachwoodComment on above:Performed By: #### CBC #### [facility] [place] [facility] [address] [place] [address] Dr. Sayda Infanteutrophils/100 WBC (Bld)73.3 %Swrfcs07.0-75.0The [facility], BeachwoodComment on above:Performed By: #### CBC #### [facility] [place] [facility] [address] [place] [address] Dr. Sayda Ac mean volume (Bld) [Entitic vol]8.9 fLCritically low 9.5-13.5The [facility], BeachwoodComment on above:Performed By: #### CBC #### [facility] [place] [facility] [address] [place] [address] Dr. Sayda TorresT242 103/eqBuyvjx129-232Kwf [facility], BeachwoodComment on above: Performed By: #### CBC #### [facility] [place] [facility] [address] [place] [address] Dr. Sayda ColvinC3.44 106/ulCritically low4.70-6.10The [facility], BeachwoodComment on above:Performed By: #### CBC #### [facility] [place] [facility] [address] [place] [address] Dr. Sayda KapoorWBC7.1 103/ulNormal4.0-11.0The [facility], BeachwoodComment on above: Performed By: #### CBC #### [facility] [place] [facility] [address] [place] [address] Dr. Sayda Camara 94-27-0117QRD1.5 mg/dLNormal<=1.0The [facility] [place] Comment on above:Performed By: #### QNTTB #### [facility] [place] [facility] [address] [place] [address] Dr. Sayda Li 14(COMP METB)on 64-88-2484Ohhkhil [Mass/Vol]2.9 g/dL Critically low3.4-5.0The [facility], BeachwoodComment on above:Performed By: #### QNTTB #### [facility] [place] [facility] [address] [address] [address] Sayda KapoorAlbumin/Globulin [Mass ratio]0.9 {ratio}NormalThe [facility], BeachwoodComment on above:Performed By: #### QNTTB #### [facility] [place] [facility] [address] [address] [address] Sayda SalcidoP [Catalytic activity/Vol]60 U/NDtgvbz73-722Vgb [facility], BeachwoodComment on above:Performed By: #### QNTTB #### [facility] [place] [facility] [address] [address] [address] Sayda SalcidoT [Catalytic activity/Vol]15 U/LCritically oyb03-91Axe [facility], BeachwoodComment on above:Performed By: #### QNTTB #### [facility] [place] [facility] [address] [place] [address] Dr. Sayda Ivoryon gap [Moles/Vol]8.6 mmol/LNormalThe [facility], BeachwoodComment on above:Performed By: #### QNTTB #### [facility] [place] [facility] [address] [place] [address] Dr. Sayda KapoorAST [Catalytic activity/Vol]10 U/LCritically erp24-21Btb [facility], BeachwoodComment on above:Performed By: #### QNTTB #### [facility] [place] [facility] [address] [place] [address] Dr. Sayda KapoorBilirubin [Mass/Vol]0.3 mg/dLNormal0.2-1.0The [facility] [place] Comment on above:Performed By: #### QNTTB #### [facility] [place] [facility] [address] [place] [address] Dr. Sayda KapoorCalcium [Mass/Vol]8.4 mg/dLCritically low8.5-10.1The [facility] BeachwoodComment on above:Performed By: #### QNTTB #### [facility] [place] [facility] [address] [place] [address] Dr. Sayda KapoorChloride [Moles/Vol]104 mmol/VNcxdfm73-274Ibr [facility] [place] Comment on above:Performed By: #### QNTTB #### [facility] [place] [facility] [address] [address] [address] Sayda KapoorCO2 [Moles/Vol]29.2 mmol/CZxkmuv71.0-32.0The [facility] [place] Comment on above:Performed By: #### QNTTB #### [facility] [place] [facility] [address] [address] [address] Sayda KapoorCreatinine [Mass/Vol]1.04 mg/dLNormal0.70-1.30The [facility], BeachwoodComment on above:Performed By: #### QNTTB #### [facility] [place] [facility] [address] [address] [address] Alfredo ChangEGFR-AF MOSOTHO>60Normal>=60The [facility], BeachwoodComment on above:Performed By: #### QNTTB #### [facility] [place] [facility] [address] [place] [address] Dr. Sayda PiresGFR-NON AF [place]>60Normal>=60The [facility], BeachwoodComment on above:Performed By: #### QNTTB #### [facility] [place] [facility] [address] [place] [address] Dr. Sayda KapoorGlobulin (S) [Mass/Vol]3.4 g/dLNormalThe [facility], BeachwoodComment on above:Performed By: #### QNTTB #### [facility] [place] [facility] [address] [place] [address] Dr. Sayda KapoorGlucose [Mass/Vol]93 mg/jHBodykn16-134Gkb [facility] [place] Comment on above:Performed By: #### QNTTB #### [facility] [place] [facility] [address] [place] [address] Dr. Sayda KapoorPotassium [Moles/Vol]3.8 mmol/LNormal3.5-5.1The [facility] [place] Comment on above:Performed By: #### QNTTB #### [facility] [place] [facility] [address] [place] [address] Dr. Sayda KapoorProtein [Mass/Vol]6.3 g/dLCritically low6.4-8.2The [facility] BeachwoodComment on above:Performed By: #### QNTTB #### [facility] [place] [facility] [address] [address] [address] Sayda KapoorSodium [Moles/Vol]138 mmol/SWneopf057-409DjuMercy Health St. [facility] Comment on above:Performed By: #### QNTTB #### [facility] [place] [facility] [address] [address] [address] Sayda Gonzalez nitrogen [Mass/Vol]17.0 mg/dLNormal7.0-18.0[facility] Medical CenterComment on above:Performed By: #### QNTTB #### [facility] [place] [facility] [address] [address] [address] Sayda Gonzalez nitrogen/Creatinine [Mass ratio]16.3 mg/mgNoMercy Health Clermont HospitalComment on above:Performed By: #### QNTTB #### [facility] [place] [facility] [address] [place] [address] Dr. Sayda KapoorPROTLyn 33-17-9949SSS Coag (PPP) [Relative time]1.07 {INR} NormalMercy Health St. Vincent Medical CenterComment on above:Performed By: #### QNTTB #### [facility] [place] [facility] [address] [place] [address] Dr. Sayda Bryan [facility] BELOWWhite HospitalComment on above:Result Comment: DESIRED INR: 2.0 - 3.0 CONDITIONS NOT LISTED BELOW 2.5 - 3.5 FOR PROSTHETIC HEART VALVE REPLACEMENT 2.5 - 3.5 RECURRENT THROMBOSIS Performed By: #### QNTTB #### [facility] [place] [facility] [address] [place] [address] Dr. Sayda Bacon Coag (PPP) [Time]11.5 sNormal9.0-11.6ThSt. Mary's [facility] Comment on above:Performed By: #### QNTTB #### [facility] [place] [facility] [address] [place] [address] Dr. Sayda Sevilla RATE GUILDERLAND CENTERERGREN 72-57-8386CCI RATE16 mm/hrNormal<=20The [facility], BeachwoodComment on above:Performed By: #### DIG #### [facility] [place] [facility] [address] [place] [address] Dr. Sayda Fergusoned GI Testingon 98-98-0382Ekgtqvm GI Testing [id number]#1.00CD:127AnaymykeChildren'S Hospital For RehabilitationCBC AUTO DIFFon 83-35-7536XUQD #0.1 103/ulNormal0.0-0.1[facility] Vincent Medical CenterComment on above:Performed By: #### CMREP #### [facility] [place] [facility] [address] [place] [address] Dr. Sayda KapoorBasophils/100 WBC (Bld)0.6 %Normal0.2-2.0The [facility] [place] Comment on above:Performed By: #### CMREP #### [facility] [place] [facility] [address] [place] [address] Dr. Sayda Patterson #0.2 103/ulNormal0.0-0.7The [facility], BeachwoodComment on above: Performed By: #### CMREP #### [facility] [place] [facility] [address] [place] [address] Dr. Sayda Piresosinophils/100 WBC (Bld)2.2 %Normal0.9-7.0The [facility] [place] Comment on above:Performed By: #### CMREP #### [facility] [place] [facility] [address] [place] [address] Dr. Sayda Piresrythrocyte distribution width (RBC) [Ratio]14.7 %Uiemim18.0-15.[address] [facility] Medical CenterComment on above:Performed By: #### CMREP #### [facility] [place] [facility] [address] [place] [address] Dr. Sayda KapoorHematocrit (Bld) [Volume fraction]31.9 %Critically low42.0-54.[address] [facility] Medical CenterComment on above:Performed By: #### CMREP #### [facility] [place] [facility] [address] [place] [address] Dr. Sayda KapoorHemoglobin (Bld) [Mass/Vol]10.2 g/dLCritically low14.0-18.0The [facility] HospitalComment on above:Performed By: #### CMREP #### [facility] [place] [facility] [address] [address] [address] Sayda Loredo #0.09 10e3/ulCritically high0.00-0.03The [facility] [place] Comment on above:Performed By: #### CMREP #### [facility] [place] [facility] [address] [address] [address] Sayda Loredo %1.1 %Critically high0.0-0.5The [facility], BeachwoodComment on above:Performed By: #### CMREP #### [facility] [place] [facility] [address] [place] [address] Dr. Sayda Nixon #1.2 103/ulNormal1.2-3.8The [facility], BeachwoodComment on above:Performed By: #### CMREP #### [facility] [place] [facility] [address] [place] [address] Dr. Sayda Contrerashocytes/100 WBC (Bld)14.6 %Critically low20.5-60.0The [facility], BeachwoodComment on above:Performed By: #### CMREP #### [facility] [place] [facility] [address] [place] [address] Dr. Sayda ThibodeauxUAL DIFF REQNONormalThe [facility], BeachwoodComment on above: Performed By: #### CMREP #### [facility] [place] [facility] [address] [place] [address] Dr. Sayda Samano (RBC) [Entitic mass]27.5 yuJqmydp99.9-34.0The [facility], BeachwoodComment on above:Performed By: #### CMREP #### [facility] [place] [facility] [address] [place] [address] Dr. Sayda Samano (RBC) [Mass/Vol]32.0 g/uGNuhvsa16.9-35.2The [facility], BeachwoodComment on above:Performed By: #### CMREP #### [facility] [place] [facility] [address] [place] [address] Dr. Sayda Samano (RBC) [Entitic vol]86.0 sBWwfobx90.0-94.0The [facility] BeachwoodComment on above:Performed By: #### CMREP #### [facility] [place] [facility] [address] [place] [address] Dr. Sayda Mendiola #0.9 103/ulCritically high0.3-0.8The [facility] [place] Comment on above:Performed By: #### CMREP #### [facility] [place] [facility] [address] [place] [address] Dr. Sayda De La Torreocytes/100 WBC (Bld)10.4 %Normal1.7-12.0The [facility] [place] Comment on above:Performed By: #### CMREP #### [facility] [place] [facility] [address] [place] [address] Dr. Sayda Nicole #5.9 103/ulNormal1.4-6.5The [facility], BeachwoodComment on above:Performed By: #### CMREP #### [facility] [place] [facility] [address] [place] [address] Dr. Sayda Infanteutrophils/100 WBC (Bld)71.1 %Xyegxp27.0-75.0The [facility], BeachwoodComment on above:Performed By: #### CMREP #### [facility] [place] [facility] [address] [place] [address] Dr. Sayda Ac mean volume (Bld) [Entitic vol]8.8 fLCritically low 9.5-13.5The [facility], BeachwoodComment on above:Performed By: #### CMREP #### [facility] [place] [facility] [address] [place] [address] Dr. Sayda KapoorPLT252 103/oyVcolrt230-728Qkt [facility] BeachwoodComment on above: Performed By: #### CMREP #### [facility] [place] [facility] [address] [place] [address] Dr. Sayda KapoorRBC3.71 106/ulCritically low4.70-6.10The [facility], BeachwoodComment on above:Performed By: #### CMREP #### [facility] [place] [facility] [address] [place] [address] Dr. Sayda KapoorWBC8.3 103/ulNormal4.0-11.0The [facility] on above: Performed By: #### CMREP #### [facility] [place] [facility] [address] [place] [address] Dr. Sayda Camara 90-29-4773QVL5.8 mg/dLCritically high<=1.0The [facility] on above:Performed By: #### BNP, CMP, LIPA, TONI #### [facility] [place] [facility] [address] [place] [address] Dr. Sayda MoralesF 14(COMP METB)on 20-22-4228Cuykspz [Mass/Vol]3.0 g/dL Critically low3.4-5.0The [facility] on above:Performed By: #### BNP, CMP, LIPA, TONI #### [facility] [place] [facility] [address] [place] [address] Dr. Sayda KapoorAlbumin/Globulin [Mass ratio]1.0 {ratio}NormalThe [facility] on above:Performed By: #### BNP, CMP, LIPA, TONI #### [facility] [place] [facility] [address] [place] [address] Dr. Sayda Mattson [Catalytic activity/Vol]54 U/KAsmuut24-004Ord [facility] on above:Performed By: #### BNP, CMP, LIPA, TONI #### [facility] [place] [facility] [address] [place] [address] Dr. Sayda Alvarado [Catalytic activity/Vol]17 U/ZWqifrv63-36Tbm [facility] on above:Performed By: #### BNP, CMP, LIPA, TONI #### [facility] [place] [facility] [address] [place] [address] Dr. Sayda Delgadillo gap [Moles/Vol]6.8 mmol/LNormalThe [facility] on above:Performed By: #### BNP, CMP, LIPA, TONI #### [facility] [place] [facility] [address] [place] [address] Dr. Sayda Fitzpatrick [Catalytic activity/Vol]13 U/LCritically jic87-44Sho Jeannine HospitalComment on above:Performed By: #### BNP, CMP, LIPA, TONI #### [facility] [place] [facility] [address] [place] [address] Dr. Sayda KapoorBilirubin [Mass/Vol]0.5 mg/dLNormal0.2-1.0[facility] Comment on above:Performed By: #### BNP, CMP, LIPA, TONI #### [facility] [place] [facility] [address] [place] [address] Dr. Sayda KapoorCalcium [Mass/Vol]8.3 mg/dLCritically low8.5-10.1The [facility], BeachwoodComment on above:Performed By: #### BNP, CMP, LIPA, TONI #### [facility] [place] [facility] [address] [place] [address] Dr. Sayda KapoorChloride [Moles/Vol]102 mmol/OApmgzw42-955Eaj [facility] [place] Comment on above:Performed By: #### BNP, CMP, LIPA, TONI #### [facility] [place] [facility] [address] [place] [address] Dr. Sayda KapoorCO2 [Moles/Vol]31.7 mmol/LFxegtp84.0-32.0The [facility] [place] Comment on above:Performed By: #### BNP, CMP, LIPA, TONI #### [facility] [place] [facility] [address] [place] [address] Dr. Sayda KapoorCreatinine [Mass/Vol]1.03 mg/dLNormal0.70-1.30The [facility], BeachwoodComment on above:Performed By: #### BNP, CMP, LIPA, TONI #### [facility] [place] [facility] [address] [place] [address] Dr. Sayda PiresGFR-AF MOSOTHO>60Normal>=60The [facility], BeachwoodComment on above:Performed By: #### BNP, CMP, LIPA, TONI #### [facility] [place] [facility] [address] [place] [address] Dr. Sayda PiresGFR-NON AF MOSOTHO>60Normal>=60The [facility], [place]woodComment on above:Performed By: #### BNP, CMP, LIPA, TONI #### [facility] [place] [facility] [address] [place] [address] Dr. Sayda KapoorGlobulin (S) [Mass/Vol]3.1 g/dLNoMercy Health Clermont HospitalComment on above:Performed By: #### BNP, CMP, LIPA, TONI #### [facility] [place] [facility] [address] [place] [address] Dr. Sayda KapoorGlucose [Mass/Vol]102 mg/lBMakwbr94-933Pzq [facility] [place] Comment on above:Performed By: #### BNP, CMP, LIPA, TONI #### [facility] [place] [facility] [address] [place] [address] Dr. Sayda KapoorPotassium [Moles/Vol]3.5 mmol/LNormal3.5-5.1The [facility] [place] Comment on above:Performed By: #### BNP, CMP, LIPA, TONI #### [facility] [place] [facility] [address] [place] [address] Dr. Sayda KapoorProtein [Mass/Vol]6.1 g/dLCritically low6.4-8.2The [facility], BeachwoodComment on above:Performed By: #### BNP, CMP, LIPA, TONI #### [facility] [place] [facility] [address] [place] [address] Dr. Sayda Rushdium [Moles/Vol]137 mmol/VFsnpmk691-863Yhl [facility] [place] Comment on above:Performed By: #### BNP, CMP, LIPA, TONI #### [facility] [place] [facility] [address] [place] [address] Dr. Sayda KapoorUrea nitrogen [Mass/Vol]19.0 mg/dLCritically high7.0-18.0The [facility], BeachwoodComment on above:Performed By: #### BNP, CMP, LIPA, TONI #### [facility] [place] [facility] [address] [place] [address] Dr. Sayda Gonzalez nitrogen/Creatinine [Mass ratio]18.4 mg/mgNoMercy Health Clermont HospitalComment on above:Performed By: #### BNP, CMP, LIPA, TONI #### [facility] [place] [facility] [address] [place] [address] Dr. Sayda Sevilla RATE WESTERGRENon 11-18-3241WMO RATE17 mm/hrNormal<=20The [facility], BeachwoodComment on above:Performed By: #### CMREP #### [facility] [place] [facility] [id number] Sayda Fergusoned GI Testingon 46-46-9087Hqrcroa GI Testing [id number]:127[facility] Medical Centercanned GI [id number]#1.00CD:127 [facility] CenterUS SINGLE QUAD RT UPPERon 49-62-6971FS SINGLE QUAD RT UPPEREXAMINATION: US SINGLE QUAD RT UPPER HISTORY: Cholelithiasis [...] Electronically authenticated by: CUBA HERNANDEZ Date: 2022-06-23 16:17NormalThSt. Mary's Medical Center, Ironton CampusOutside Colonoscopyon 54-75-2396Nfobbcd Colonoscopy [id number]#1.00CD:[address] [place], [place] [address]Lab Reportson 00-84-0251Btu Reports [id number]#1.00CD:[address] [place], [place] [address]Covid-19 PCR (CVDTBH)on 25-89-0188FKIL-CoV-2 (COVID-19) RNA KAT+probe Ql (Unsp spec)Not detectedNormalNOT DETECTEDThe [facility], BeachwoodComment on above: Result Comment: This test is not yet approved or cleared by the [place] FDA. When there are no FDA-approved or cleared tests available, and other criteria are met, FDA can make tests available under an emergency access mechanism called an Emergency Use Authorization (EUA). The EUA for this test is supported by the [employer] of Health and Human Service's (HHS's) declaration [...] of clinical signs and symptoms consistent with SARS-CoV-2.Performed By: #### CMREP #### [facility] [place] [facility] [address] [place] [address] Dr. Sayda Quinonez for Procedure/Surgeryon 03-85-3073Aowwcom for Procedure/[id number]#1.00CD:127[facility] CenterRAD - CT Reporton 94-09-3592SMJ - CT Report [id number]:127[facility] Medical CenterCT ABD/PELV W CONon 15-13-9936TS ABD/PELV W CONEXAMINATION: CT ABD/PELV W CON, 04/13/2022 8:34 AM [...] Electronically authenticated by: CUBA HERNANDEZ Date: 2022-04-14 14:28White HospitalConsultation Noteon 82-53-2300Crxnrbnjrbuq Note [id number]:127[facility] CenterGeneral Surgery Office/Clinic Noteon 01-43-5245Cqkbeqf Surgery Office/Clinic NoteChief Complaint re-evaluate nausea and vomiting HPI Staff [...] swallowing difficulties, no hearing loss, no ear infection(s),no nose bleeds. Cardiovascular: normal blood pressure, no [...] further evaluation; also proceed with EGD and colonoscopy;informed consent obtained. 2. Abdominal pain, RLQ (R10.31: Right lower quadrant pain) see # 1 3. Abdominal pain, periumbilical (R10.33: Periumbilical pain) see # 1 4. Change in bowel habits (R19.4: Change in bowel habit) see # 1 5. Iron deficiency anemia (D50.9: Iron deficiency anemia, unspecified) see # 1 6. Nausea (R11.0: Nausea) see # 1 7. Chronic anticoagulation (Z79.01: nursing home (current) use of anticoagulants) will check with [...] 75 mg Tab, 7 (more content not included)...[facility] CenterComment on above:Result Comment: Electronically Signed By: LAZARO DANGELO, Javid Du\.br\Date and Time Signed: 04/04/22 11:03 EDTConsultation Noteon 25-14-3639Kqcpbzbddjmm [id number]#1.00CD:127 NormalFisher Greater Baltimore Medical CenterAmbulatory Visit Summaryon 89-94-2678Wjeqydcpmo Visit Summary AYO ALICIA :1960 Visit Date:04/01/2022 [...] Iron deficiency anemia Nausea Osteoarthritis RUQ pain NormalChildren'S Hospital For RehabilitationPROF 14(COMP METB)on 04-01-2022 Albumin [Mass/Vol]2.7 g/dLCritically low3.4-5.0The [facility], BeachwoodComment on above:Performed By: #### DIG #### [facility] [place] [facility] [address] [place] [address] Dr. Sayda KapoorAlbumin/Globulin [Mass ratio]0.9 {ratio}NormalThe [facility], BeachwoodComment on above:Performed By: #### DIG #### [facility] [place] [facility] [address] [place] [address] Dr. Sayda Mattson [Catalytic activity/Vol]55 U/OUlefvl22-324Qai [facility], BeachwoodComment on above:Performed By: #### DIG #### [facility] [place] [facility] [address] [place] [address] Dr. Sayda Alvarado [Catalytic activity/Vol]16 U/PHlczos83-94Kxi [facility], BeachwoodComment on above:Performed By: #### DIG #### [facility] [place] [facility] [address] [place] [address] Dr. Sayda Delgadillo gap [Moles/Vol]13.0 mmol/LNormalThe [facility] [place] Comment on above:Performed By: #### DIG #### [facility] [place] [facility] [address] [place] [address] Dr. Sayda Fitzpatrick [Catalytic activity/Vol]10 U/LCritically dyy75-29Idd [facility] Hospitalment on above:Performed By: #### DIG #### [facility] [place] [facility] [address] [place] [address] Dr. Sayda KapoorBilirubin [Mass/Vol]0.7 mg/dLNormal0.2-1.0The [facility] [place] Comment on above:Performed By: #### DIG #### [facility] [place] [facility] [address] [place] [address] Dr. aSyda KapoorCalcium [Mass/Vol]7.4 mg/dLCritically low8.5-10.1The [facility], BeachwoodComment on above:Performed By: #### DIG #### [facility] [place] [facility] [address] [place] [address] Dr. Sayda KapoorChloride [Moles/Vol]110 mmol/LCritically wxat88-780Oio [facility], BeachwoodComment on above:Performed By: #### DIG #### [facility] [place] [facility] [address] [place] [address] Dr. Sayda KapoorCO2 [Moles/Vol]25.1 mmol/BXcrnsp13.0-32.0The [facility] [place] Comment on above:Performed By: #### DIG #### [facility] [place] [facility] [address] [place] [address] Dr. Sayda KapoorCreatinine [Mass/Vol]1.16 mg/dLNormal0.70-1.30The [facility], BeachwoodComcorewell health zeeland hospital on above:Performed By: #### DIG #### [facility] [place] [facility] [address] [place] [address] Dr. Sayda PiresGFR-AF MOSOTHO>60Normal>=60The [facility], BeachwoodComment on above:Performed By: #### DIG #### [facility] [place] [facility] [address] [place] [address] Dr. Sayda PiresGFR-NON AF MOSOTHO>60Normal>=60The [facility], BeachwoodComcorewell health zeeland hospital on above:Performed By: #### DIG #### [facility] [place] [facility] [address] [place] [address] Dr. Sayda KapoorGlobulin (S) [Mass/Vol]3.0 g/dLNormalThe [facility], BeachwoodComment on above:Performed By: #### DIG #### [facility] [place] [facility] [address] [place] [address] Dr. Sayda KapoorGlucose [Mass/Vol]122 mg/dLCritically bthj98-802Mmy [facility], BeachwoodComment on above:Performed By: #### DIG #### [facility] [place] [facility] [address] [address] [address] Sayda KapoorPotassium [Moles/Vol]3.1 mmol/LCritically low3.5-5.1The [facility], BeachwoodComment on above:Performed By: #### DIG #### [facility] [place] [facility] [address] [address] [address] Sayda KapoorProtein [Mass/Vol]5.7 g/dLCritically low6.4-8.2The [facility], BeachwoodComment on above:Performed By: #### DIG #### [facility] [place] [facility] [address] [place] [address] Dr. Sayda KapoorSodium [Moles/Vol]145 mmol/ZPejesy786-222Yjy [facility] [place] Comment on above:Performed By: #### DIG #### [facility] [place] [facility] [address] [address] [address] Sayda KapoorUrea nitrogen [Mass/Vol]16.0 mg/dLNormal7.0-18.0The [facility], BeachwoodComment on above:Performed By: #### DIG #### [facility] [place] [facility] [address] [place] [address] Dr. Sayda KapoorUrea nitrogen/Creatinine [Mass ratio]13.8 mg/mgNormalThe [facility], BeachwoodComment on above:Performed By: #### DIG #### [facility] [place] [facility] [address] [place] [address] Dr. Sayda Cruz Reportson 46-82-7421Hci Reports [id number]#1.00CD:CeciliaChildren'S Hospital For RehabilitationRAD - Ultrasound Reporton 47-43-2973HNQ - Ultrasound Report [id number]#1.00CD:127NomykeChildren'S Hospital For RehabilitationPROF 14(COMP METB)on 99-62-7438Htuhbfj [Mass/Vol]3.1 g/dLCritically low 3.4-5.0The [facility], BeachwoodComment on above:Performed By: #### BNP, CMP, LIPA, TONI #### [facility] [place] [facility] [address] [place] [address] Dr. Sayda KapoorAlbumin/Globulin [Mass ratio]0.9 {ratio}NormalThe [facility], BeachwoodComment on above:Performed By: #### BNP, CMP, LIPA, TONI #### [facility] [place] [facility] [address] [place] [address] Dr. Sayda Mattson [Catalytic activity/Vol]67 U/JQzmcnm20-866Poo [facility], BeachwoodComment on above:Performed By: #### BNP, CMP, LIPA, TONI #### [facility] [place] [facility] [address] [place] [address] Dr. Sayda SalcidoT [Catalytic activity/Vol]25 U/ZNjkobk43-69Cnb [facility], BeachwoodComcorewell health [facility]eland hospital on above:Performed By: #### BNP, CMP, LIPA, TONI #### [facility] [place] [facility] [address] [place] [address] Dr. Sayda Delgadillo gap [Moles/Vol]10.1 mmol/LNormalMercy Health St[facility] Comment on above:Performed By: #### BNP, CMP, LIPA, TONI #### [facility] [place] [facility] [address] [place] [address] Dr. Sayda KapoorAST [Catalytic activity/Vol]15 U/DAtkogh58-16Jew [facility], BeachwoodComment on above:Performed By: #### BNP, CMP, LIPA, TONI #### [facility] [place] [facility] [address] [place] [address] Dr. Sayda KapoorBilirubin [Mass/Vol]1.1 mg/dLCritically high0.2-1.0The [facility], BeachwoodComment on above:Performed By: #### BNP, CMP, LIPA, TONI #### [facility] [place] [facility] [address] [place] [address] Dr. Sayda KapoorCalcium [Mass/Vol]8.7 mg/dLNormal8.5-10.1[facility] Comment on above:Performed By: #### BNP, CMP, LIPA, TONI #### [facility] [place] [facility] [address] [place] [address] Dr. aSyda KapoorChloride [Moles/Vol]103 mmol/EHkdpiy75-064Mlt [facility] [place] Comment on above:Performed By: #### BNP, CMP, LIPA, TONI #### [facility] [place] [facility] [address] [place] [address] Dr. Sayda KapoorCO2 [Moles/Vol]28.7 mmol/BEkzbpg51.0-32.0The [facility] [place] Comment on above:Performed By: #### BNP, CMP, LIPA, TONI #### [facility] [place] [facility] [address] [place] [address] Dr. Sayda KapoorCreatinine [Mass/Vol]1.61 mg/dLCritically high0.70-1.30The [facility], BeachwoodComment on above:Performed By: #### BNP, CMP, LIPA, TONI #### [facility] [place] [facility] [address] [place] [address] Dr. Sayda PiresGFR-AF FWDADOZI45 mL/min/1.37x7Dcyridrawo low>=60The [facility], BeachwoodComment on above:Performed By: #### BNP, CMP, LIPA, TONI #### [facility] [place] [facility] [address] [place] [address] Dr. Sayda PiresGFR-NON AF ROAQKSCV04 mL/min/1.52c4Ebsjaqwgaf low>=60The [facility], BeachwoodComment on above:Performed By: #### BNP, CMP, LIPA, TONI #### [facility] [place] [facility] [address] [place] [address] Dr. Sayda KapoorGlobulin (S) [Mass/Vol]3.6 g/dLNormalThe [facility], BeachwoodComment on above:Performed By: #### BNP, CMP, LIPA, TONI #### [facility] [place] [facility] [address] [place] [address] Dr. Sayda KapoorGlucose [Mass/Vol]130 mg/dLCritically cadr12-672Vwi [facility], BeachwoodComment on above:Performed By: #### BNP, CMP, LIPA, TONI #### [facility] [place] [facility] [address] [place] [address] Dr. Sayda KapoorPotassium [Moles/Vol]3.8 mmol/LNormal3.5-5.1The [facility] [place] Comment on above:Performed By: #### BNP, CMP, LIPA, TONI #### [facility] [place] [facility] [address] [place] [address] Dr. Sayda KapoorProtein [Mass/Vol]6.7 g/dLNormal6.4-8.2The [facility] [place] Comment on above:Performed By: #### BNP, CMP, LIPA, TONI #### [facility] [place] [facility] [address] [place] [address] Dr. Sayda KapoorSodium [Moles/Vol]138 mmol/UTyizla405-991Red [facility] [place] Comment on above:Performed By: #### BNP, CMP, LIPA, TONI #### [facility] [place] [facility] [address] [place] [address] Dr. Sayda KapoorUrea nitrogen [Mass/Vol]31.0 mg/dLCritically high7.0-18.0The [facility], BeachwoodComment on above:Performed By: #### BNP, CMP, LIPA, TONI #### [facility] [place] [facility] [address] [place] [address] Dr. Sayda Gonzalez nitrogen/Creatinine [Mass ratio]19.3 mg/mgNormalThe [facility] BeachwoodComment on above:Performed By: #### BNP, CMP, LIPA, TONI #### [facility] [place] [facility] [address] [place] [address] Dr. Sayda KapoorAMYLASEon [id number] [Catalytic activity/Vol]63 U/LNormal 25-115The [facility], BeachwoodComment on above:Performed By: #### BNP, CMP, LIPA, TONI #### [facility] [place] [facility] [address] [place] [address] Dr. Sayda Motley 04-61-0748Lbjxnoequaz peptide B (Bld) [Mass/Vol]47.0 pg/mL Normal<=900.0The [facility], BeachwoodComment on above:Performed By: #### BNP, CMP, LIPA, TONI #### [facility] [place] [facility] [address] [place] [address] Dr. Sayda Casas AUTO DIFFon [id number] #0.0 103/ulNormal0.0-0.1[facility] CenterComment on above:Performed By: #### CMREP #### [facility] [place] [facility] [address] [place] [address] Dr. Sayda KapoorBasophils/100 WBC (Bld)0.5 %Normal0.2-2.0[facility] Comment on above:Performed By: #### CMREP #### [facility] [place] [facility] [address] [place] [address] Dr. Sayda Patterson #0.3 103/ulNormal0.0-0.7The [facility], BeachwoodComment on above: Performed By: #### CMREP #### [facility] [place] [facility] [address] [place] [address] Dr. Sayda Piresosinophils/100 WBC (Bld)3.1 %Normal0.9-7.0The [facility] [place] Comment on above:Performed By: #### CMREP #### [facility] [place] [facility] [address] [place] [address] Dr. Sayda Piresrythrocyte distribution width (RBC) [Ratio]13.8 %Yqsqbz92.0-15.[address] Vincent Medical CenterComment on above:Performed By: #### CMREP #### [facility] [place] [facility] [address] [place] [address] Dr. Sayda KapoorHematocrit (Bld) [Volume fraction]35.0 %Critically low42.0-54.0 The [facility], BeachwoodComment on above:Performed By: #### CMREP #### [facility] [place] [facility] [address] [place] [address] Dr. Sayda KapoorHemoglobin (Bld) [Mass/Vol]11.3 g/dLCritically low14.0-18.0[facility] Vincent Medical CenterComment on above:Performed By: #### CMREP #### [facility] [place] [facility] [address] [place] [address] Dr. Sayda Loredo #0.05 10e3/ulCritically high0.00-0.03[facility] Comment on above:Performed By: #### CMREP #### [facility] [place] [facility] [address] [place] [address] Dr. Sayda Loredo %0.6 %Critically high0.0-0.5The [facility], BeachwoodComment on above:Performed By: #### CMREP #### [facility] [place] [facility] [address] [place] [address] Dr. Sayda Nixon #1.0 103/ulCritically low1.2-3.8The [facility] [place] Comment on above:Performed By: #### CMREP #### [facility] [place] [facility] [address] [place] [address] Dr. Sayda Contrerashocytes/100 WBC (Bld)11.7 %Critically low20.5-60.0The [facility], BeachwoodComment on above:Performed By: #### CMREP #### [facility] [place] [facility] [address] [place] [address] Dr. Sayda ThibodeauxUAL DIFF REQNONormalThe [facility], BeachwoodComment on above: Performed By: #### CMREP #### [facility] [place] [facility] [address] [place] [address] Dr. Sayda Samano (RBC) [Entitic mass]29.0 vmVcvtex37.9-34.0[facility] Vincent Medical CenterComment on above:Performed By: #### CMREP #### [facility] [place] [facility] [address] [place] [address] Dr. Sayda Samano (RBC) [Mass/Vol]32.3 g/vNSuisou08.9-35.2The [facility], BeachwoodComment on above:Performed By: #### CMREP #### [facility] [place] [facility] [address] [place] [address] Dr. Sayda Samano (RBC) [Entitic vol]90.0 vGIrpcjm53.0-94.0The [facility], BeachwoodComment on above:Performed By: #### CMREP #### [facility] [place] [facility] [address] [address] [address] Sayda Mendiola #0.8 103/ulNormal0.3-0.8The [facility], BeachwoodComment on above:Performed By: #### CMREP #### [facility] [place] [facility] [address] [place] [address] Dr. Sayda De La Torreocytes/100 WBC (Bld)8.9 %Normal1.7-12.0[facility] Comment on above:Performed By: #### CMREP #### [facility] [place] [facility] [address] [place] [address] Dr. Sayda InfanteUT #6.6 103/ulCritically high1.4-6.5The [facility] [place] Comment on above:Performed By: #### CMREP #### [facility] [place] [facility] [address] [place] [address] Dr. Sayda Infanteutrophils/100 WBC (Bld)75.2 %Critically high43.0-75.0The [facility], BeachwoodComment on above:Performed By: #### CMREP #### [facility] [place] [facility] [address] [place] [address] Dr. Sayda Portillolet mean volume (Bld) [Entitic vol]8.9 fLCritically low 9.5-13.5The [facility], BeachwoodComment on above:Performed By: #### CMREP #### [facility] [place] [facility] [address] [place] [address] Dr. Sayda KapoorPLT317 103/vqJktyth002-246Cmn [facility] BeachwoodComment on above: Performed By: #### CMREP #### [facility] [place] [facility] [address] [place] [address] Dr. Sayda KapoorRBC3.89 106/ulCritically low4.70-6.10The [facility], BeachwoodComment on above:Performed By: #### CMREP #### [facility] [place] [facility] [address] [place] [address] Dr. Sayda KapoorWBC8.7 103/ulNormal4.0-11.0The [facility], BeachwoodComment on above: Performed By: #### CMREP #### [facility] [place] [facility] [address] [address] [address] Sayda Mata 33-70-3236Yayw [Mass/Vol]42.0 ug/dLCritically low 65.0-175.0The [facility], BeachwoodComment on above:Performed By: #### BNP, CMP, LIPA, TONI #### [facility] [place] [facility] [address] [place] [address] Dr. Sayda Villaloboson 26-56-8546Ewbnbz [Catalytic activity/Vol]80.0 U/LNormal 73.0-393.0The [facility], BeachwoodComment on above:Performed By: #### BNP, CMP, LIPA, TONI #### [facility] [place] [facility] [address] [place] [address] Dr. Sayda Li 14(COMP METB)on 53-80-2942Oedlpsl [Mass/Vol]3.3 g/dL Critically low3.4-5.0The [facility], BeachwoodComment on above:Performed By: #### BNP, CMP, LIPA, TONI #### [facility] [place] [facility] [address] [place] [address] Dr. Sayda KapoorAlbumin/Globulin [Mass ratio]0.8 {ratio}NormalThe [facility], BeachwoodComment on above:Performed By: #### BNP, CMP, LIPA, TONI #### [facility] [place] [facility] [address] [place] [address] Dr. Sayda Mattson [Catalytic activity/Vol]70 U/HCqxiur76-286Zbc [facility], BeachwoodComment on above:Performed By: #### BNP, CMP, LIPA, TONI #### [facility] [place] [facility] [address] [place] [address] Dr. Sayda Alvarado [Catalytic activity/Vol]25 U/VHforbc87-94Oaf [facility], BeachwoodComment on above:Performed By: #### BNP, CMP, LIPA, TONI #### [facility] [place] [facility] [address] [place] [address] Dr. Sayda Delgadillo gap [Moles/Vol]13.7 mmol/LNormalThe [facility] [place] Comment on above:Performed By: #### BNP, CMP, LIPA, TONI #### [facility] [place] [facility] [address] [place] [address] Dr. Sayda KapoorAST [Catalytic activity/Vol]15 U/RRuvjjq97-91Iwu [facility], BeachwoodComment on above:Performed By: #### BNP, CMP, LIPA, TONI #### [facility] [place] [facility] [address] [place] [address] Dr. Sayda KapoorBilirubin [Mass/Vol]0.8 mg/dLNormal0.2-1.0The [facility] [place] Comment on above:Performed By: #### BNP, CMP, LIPA, TONI #### [facility] [place] [facility] [address] [place] [address] Dr. Sayda KapoorCalcium [Mass/Vol]8.7 mg/dLNormal8.5-10.1[facility] Comment on above:Performed By: #### BNP, CMP, LIPA, TONI #### [facility] [place] [facility] [address] [place] [address] Dr. Sayda KapoorChloride [Moles/Vol]102 mmol/NLzyvjl91-855Wol [facility] [place] Comment on above:Performed By: #### BNP, CMP, LIPA, TONI #### [facility] [place] [facility] [address] [place] [address] Dr. Sayda KapoorCO2 [Moles/Vol]28.1 mmol/WFfwqse92.0-32.0[facility] Comment on above:Performed By: #### BNP, CMP, LIPA, TONI #### [facility] [place] [facility] [address] [place] [address] Dr. Sayda KapoorCreatinine [Mass/Vol]2.04 mg/dLCritically high0.70-1.30The [facility], BeachwoodComment on above:Performed By: #### BNP, CMP, LIPA, TONI #### [facility] [place] [facility] [address] [place] [address] Dr. Sayda PiresGFR-AF NRXTSQSX86 mL/min/1.65i9Emfiwhhswd low>=60The [facility], BeachwoodComment on above:Performed By: #### BNP, CMP, LIPA, TONI #### [facility] [place] [facility] [address] [place] [address] Dr. Sayda PiresGFR-NON AF THBETQGB89 mL/min/1.46k5Ukicqxaqpv low>=60The [facility], BeachwoodComment on above:Performed By: #### BNP, CMP, LIPA, TONI #### [facility] [place] [facility] [address] [place] [address] Dr. Sayda KapoorGlobulin (S) [Mass/Vol]3.9 g/dLNormalThe [facility], BeachwoodComment on above:Performed By: #### BNP, CMP, LIPA, TONI #### [facility] [place] [facility] [address] [place] [address] Dr. Sayda KapoorGlucose [Mass/Vol]120 mg/dLCritically bywo43-370Rhn [facility], BeachwoodComment on above:Performed By: #### BNP, CMP, LIPA, TONI #### [facility] [place] [facility] [address] [place] [address] Dr. Sayda KapoorPotassium [Moles/Vol]3.8 mmol/LNormal3.5-5.1The [facility] [place] Comment on above:Performed By: #### BNP, CMP, LIPA, TONI #### [facility] [place] [facility] [address] [place] [address] Dr. Sayda KapoorProtein [Mass/Vol]7.2 g/dLNormal6.4-8.2[facility] Comment on above:Performed By: #### BNP, CMP, LIPA, TONI #### [facility] [place] [facility] [address] [place] [address] Dr. Sayda KapoorSodium [Moles/Vol]140 mmol/YAkgmch689-359Xsy [facility] [place] Comment on above:Performed By: #### BNP, CMP, LIPA, TONI #### [facility] [place] [facility] [address] [place] [address] Dr. Sayda KapoorUrea nitrogen [Mass/Vol]38.0 mg/dLCritically high7.0-18.0The [facility], BeachwoodComment on above:Performed By: #### BNP, CMP, LIPA, TONI #### [facility] [place] [facility] [address] [place] [address] Dr. Sayda KapoorUrea nitrogen/Creatinine [Mass ratio]18.6 mg/mgWhite HospitalComment on above:Performed By: #### BNP, CMP, LIPA, TONI #### [facility] [place] [facility] [address] [address] [address] Sayda KapoorPhysician Referralon [id number] Referral [id number]#1.00CD:127[facility] CenterUS SINGLE QUAD RT UPPERon 91-28-0613GE SINGLE QUAD RT UPPEREXAMINATION: US SINGLE QUAD RT UPPER HISTORY: Cholelithiasis [...] Electronically authenticated by: CL POTTS Date: 2022-03-08 17:27White HospitalCardiovascular Lab Reporton [id number] Lab Report [facility]: [id number] Department of Physician: Fatuma Garcia M.D. Division of Service Date: 01/26/2021 Cardiology Birthdate: 1960 Adult Cardiovascular Room #: [address] [place] [address] Cardiovascular Laboratory Report FINAL IMPRESSIONS: 1. Severe, [...] area of myocardium. 6. Follow up with [facility] Cardiology in the [facility] in the next 2 to 3 [...] the right radial artery was obtained. A 6-Turkish glide sheath was inserted without difficulty. Bilateral selective coronary angiography was performed using a 6-Turkish TIG catheter. After reviewing the images, it was elected to proceed with an interventional procedure. A 6-Turkish XB3.0 guide catheter was advanced in over [...] than 2 mm in (more content not included)...NormalThe [facility] HospitalCORONAVIRUS 2019 BY PCRon 07-21-2020 CORONAVIRUS 2019,PCRDETECTEDAbnormalNot [facility] Emerald CoastComment on above:Order Comment: COVID CALLED TO RICHARD , 07/21/2020 16:56Result Comment: . This assay is designed to [...] patient management decisions. Fact sheet for providers: https://www.fda.gov/media/857551/download Fact sheet for patients: https://www.fda.gov/media/109522/download This test has received FDA Emergency Use Authorization (EUA) and has been verified by [facility] ([facility]). This test is only authorized for the duration of time that circumstances exist to justify the authorization of the emergency use of in vitro diagnostic tests for the detection of SARS-CoV-2 virus and/or diagnosis of COVID-19 infection under section 564(b)(1) of the Act, 21 U.S.C. 360bbb-3(b)(1), unless the authorization is terminated or revoked sooner. [facility] is certified under CLIA-88 as qualified to perform high complexity testing. Testing is performed in the [facility] laboratories located at [address] [place] [address]. COVID CALLED TO RICHARD , 07/21/2020 16:56Performed By: #### COV19 #### [address] [place], [place] [address]YTTQGCTS IN HEALTHCARE?[facility] Comment on above:Order Comment: COVID CALLED TO RICHARD , 07/21/2020 16:56 Performed By: #### COV19 #### [facility] [id number] [place] [address]. [place], [place] [address]NWHFT COVID NASAL SWAB TEST?[facility]-PhiladelphiaComment on above:Order Comment: COVID CALLED TO RICHARD , 07/21/2020 16:56 Performed By: #### COV19 #### [facility] [id number] [place] [address]. [place], [place] [address]RTPMQOQXIEMM (OR PLANNED TO BE ADMITTED)?[facility]adelphiaComment on above:Order Comment: COVID CALLED TO RICHARD , 07/21/2020 16:56Performed By: #### COV19 #### [facility] [address] [place], [place] [address]ZMT?[facility]-PhiladelphiaComment on above: Order Comment: COVID CALLED TO RICHARD , 07/21/2020 16:56Performed By: #### COV19 #### [facility] [address] [place], [place] [address]IQLLSQWP IN CONGREGATE CARE SETTING?UnknownHorsham ClinicComment on above:Order Comment: COVID CALLED TO RICHARD , 07/21/2020 16:56Performed By: #### COV19 #### [facility] [address] [place], [place] [address]YGOENVCDZKN DEFINED BY CDC?[facility]adelphiaComment on above:Order Comment: COVID CALLED TO RICHARD , 07/21/2020 16:56 Performed By: #### COV19 #### [facility] [address] [place], [place] [address]Uscpo 19 Resultson [id number] 19 ResultsAdult POSITIVE COVID-19 Test [place] Your local [...] available, clean hands with an alcohol-based hand tool drawing checker that contains at least 60% alcohol. Remember [...] 20 seconds or use an alcohol-based hand tool drawing checker that contains at least 60% alcohol. Avoid touching your face Do not permit visitors who do not have an essential need to be in your home. Mask when caring for these individuals. Household members caring for a COVID-19 positive patient should consider self-quarantine for 14 days. If symptoms develop, testing for COVID-19 should be considered.. Revised 7.28.20 Electronic Signatures: PSCMServKudan, PSCMServices (ADMIN) (Signature pending) Authored Last Updated: 21-Jul-2020 16:32 by PSCMSProvender, PSCMServices (ADMIN)[facility] ClinicCORONAVIRUS 2019 BY PCRdee [id number] Specimen Source Nasal, NasopharyngealNormalUH Martin Memorial Health SystemsComment on above:Order Comment: COVID CALLED TO RICHARD , 07/21/2020 16:56Performed By: #### COV19 #### [facility] [address] [place] [address] Vital Signs Date TimeVital SignValuePerforming [id number] 11:02-0500 Diastolic blood dqgkbjaz30 mm[Hg]Perico Mccabe MD Work Phone: 1(201)[address] [place], [place] 7703111-06-2025 11:02-0500 Heart rate60 /[place] Mccabe MD Work Phone: 1(384)[address] [place], [place] 7703111-06-2025 11:02-0500 Respiratory rate18 /[place] Mccabe MD Work Phone: 1(974)[address] [place], [place] 7703111-06-2025 11:02-0500 SaO2% (BldA) [Mass fraction]97 %Perico Mccabe MD Work Phone: 1(038)[address] [place], [place] 7703111-06-2025 11:02-0500 Systolic blood mkynnvmp235 mm[Hg]Perico Mccabe MD Work Phone: 1(278)[address] [place], [place] 7703111-06-2025 09:48-0500 Body rywrfr815.72 cmPerico Mccabe MD Work Phone: 1(573)[address] [place], [place] 7703111-06-2025 09:48-0500 Body rwjduz54.62 kgPerico Mccabe MD Work Phone: 1(536)[address] [place], [place] 7703110-07-2025 13:28-0400 Body xtjlvi586.72 cmPerico Mccabe MD Work Phone: 1(547)[address] [place], [place] 7703110-07-2025 13:28-0400 Body mass index (BMI) [Ratio]30.5 kg/i7TxvhqtuPerico Mccabe MD Work Phone: 1(207)[address] [place], [place] [address]703110-07-2025 13:28-0400 Body kvkpov16.17 kgPerico Mccabe MD Work Phone: 1(130)[address] [place], [place] 7703104-07-2025 13:13-0400 Body orxuyt271.72 cmFisher[facility]04-07-2025 13:13-0400Body mass index (BMI) [Ratio]30.4 kg/n7ZzdselkloFisher-Titus Medical Center04-07-2025 13:13-0400Body eujpkc18.71 kgFisher-Titus Medical Center12-20-2024 10:37-0500Body cupqsnigfqk71.3 [degF]Cuba Haywood MD Work Phone: [facility]12-20-2024 10:37-0500Diastolic blood rfvnyizw31 mm[Hg]Cuba Haywood MD Work Phone: [facility]12-20-2024 10:37-0500Heart rate77 /min Cuba Haywood MD Work Phone: [facility]12-20-2024 10:37-3930JnY8% (BldA) [Mass fraction]98 %Cuba Haywood MD Work Phone: [facility]12-20-2024 10:37-0500Systolic blood qrbcxylj152 mm[Hg]Cuba Haywood MD Work Phone: [facility]10-04-2024 12:19-0400Body temperature 97.81 [degF]Pearl Calderon RN [employer].CALENDERING SUPERVISOR Work Phone: [facility]10-04-2024 12:19-0400Diastolic blood ouzycwfe67 mm[Hg]Pearl Calderon RN [employer].CALENDERING SUPERVISOR Work Phone: [facility]vue HospitalComment on above:states stressed from -61-6127 12:19-0400Heart rate69 /minPearl Calderon RN FORENSIC.CALENDERING SUPERVISOR Work Phone: [facility]10-04-2024 12:19-7921QfW1% (BldA) [Mass fraction]99 %Pearl Calderon RN FORENSIC.CALENDERING SUPERVISOR Work Phone: [facility]10-04-2024 12:19-0400Systolic blood uxdudmgv421 mm[Hg]Pearl Calderon RN [employer]ENS[employer].CALENDERING SUPERVISOR Work Phone: [facility]vue HospitalComment on above:states stressed from jaqqdyd01-93-8815 14:23-0400Diastolic blood vxyggfxi44 mm[Hg]Pacc 1 Work Phone: [facility]08-30-2024 14:23-0400Systolic blood egrslnmt525 mm[Hg]Pacc 1 Work Phone: [facility]08-30-2024 13:37-0400Body wsuuvh585.7 cmPacc 1 Work Phone: [facility]08-30-2024 13:37-0400Body mass index (BMI) [Ratio]26.68 kg/m2Pacc 1 Work Phone: [facility]08-30-2024 13:37-0400Body temperature 98.29 [degF]Pacc 1 Work Phone: [place] [address]-30-2024 13:37-0400Body ribdqz33.6 kgPacc 1 Work Phone: [place] [address]-30-2024 13:37-0400Heart rate66 /min Pacc 1 Work Phone: [place] [address]-30-2024 13:37-8357FsD4% (BldA) [Mass fraction]98 %Pacc 1 Work Phone: [facility]08-28-2024 12:22-0400Body .7 cmDabiju Haywood MD Work Phone: [facility]08-28-2024 12:22-0400Body mass index (BMI) [Ratio]25.85 kg/s1UwrlrCuba Haywood MD Work Phone: [phone]08-28-2024 12:22-0400Body temperature 97.5 [degF]Cuba Haywood MD Work Phone: [place] [address]-28-2024 12:22-0400Body gimgmm01.11 kgCuba Haywood MD Work Phone: [place] [address]-28-2024 12:22-0400Diastolic blood rridkode69 mm[Hg]Cuba Haywood MD Work Phone: [place] [address]-28-2024 12:22-0400Heart rate61 /min Cuba Haywood MD Work Phone: [place] [address]-28-2024 12:22-2166VhS9% (BldA) [Mass fraction]99 %Cuba Haywood MD Work Phone: [facility]08-28-2024 12:22040Systolic blood mm[Hg]Cuba Haywood MD Work Phone: [facility]08-05-2024 10:21-0400Body ekxpic855.72 cmMD Perico Mccabe Work Phone: [facility]08-05-2024 10:21-0400 Body mass index (BMI) [Ratio]25.8 kg/m2MD Perico Mccabe Work Phone: [facility]08-05-2024 10:21-0400 Body emnfia02.11 kgMD Perico Mccabe Work Phone: [facility]01-11-2024 15:00-0500 Body lymems161.72 StephaniatOnePlace.comormack Other [employer] Other 01-11-2024 15:00-0500Body mass index (BMI) [Ratio] 32.38 kg/t0Jdwczera Bluwan Other [employer] Other 01-11-2024 15:00-0500Body whwwaz70.62 kgLamatt Deyvi Other [employer] Other 12-27-2023 13:07-0500Body qpnoyu790.[address] [employer] Wxoohp12-35-4831 13:07-0500Body mass index (BMI) [Ratio]28.13 kg/m2Pmh 2 [facility] [employer] Hpbiao67-45-5616 13:07-0500Body srbxxu77.[address] [place], [place] 164[address]08-23-2023 10:45-0400Body etbyyd876.72 EstherTimefultin Deyvi Other [employer] Other 08-23-2023 10:45-0400Body mass index (BMI) [Ratio] 32.37 kg/t3Uijyoaecmatt Neal Other [employer] Other 08-23-2023 10:45-0400Body qgbohn01.57 kgLamatt Neal Other [employer] Other 08-23-2023 10:45-0400Diastolic blood mqdwutno80 mm[Hg] Enoch Neal Other [employer] Other 08-23-2023 10:45-0400Systolic blood saesmgnx567 mm[Hg] Enoch Neal Other [employer] Other 11-08-2022 15:30-0500Body qviump441.72 cmLawzuleika Neal Other [employer] Other 11-08-2022 15:30-0500Body mass index (BMI) [Ratio] 27.52 kg/p2Mvyitmnamatt Neal Other [employer] Other 11-08-2022 15:30-0500Body .1 kgLawrernestina Neal Other [employer] Other 09-26-2022 15:44-0400Body weight0 kgMD Perico Hoy Work Phone: [facility]08-01-2022 15:06-0400 Blood Pressure LocationMichaerose NILL [phone]-JrazyThe [facility] [place] 488021-16-9761 15:06-0400Diastolic blood buabeccb18 mm[Hg] Javid WILLIS 120-2529Nzqtuh-BxhcaThe [facility] Hospital [facility] [place] 08-01-2022 15:06-0400Heart rate58 /minMichael NILL [phone]-YqrblThe [facility] [place] 08-01-2022 15:06-0400Respiratory rate16 /minMichael NILL [phone]-HpninThe [facility] Hospital [facility] [place] 08-01-2022 15:06-0400Systolic blood sjacswrc111 mm[Hg] Javid WILLIS [phone]-QfgnhParkview Health Surgery [place] Encounters Encounter DateEncounter TypeCare ProviderFacilityStart: 07-07-2025 End: 57-28-9797cslulmoblsYklmjum M HoyFacility:[facility] Start: 79-04-8526Gyx-patient / Non-visitCatherine L Ly DO-[facility] Work Phone: Start: 06-22-2025 End: 21-28-7909Ojpqwbu encounter procedureCatherine L Ly DO-CT Scan [facility] Work Phone: Start: 06-22-2025 End: 99-52-9624qyevpcrxguKkonxdx M Hoy MD Work Phone: -[facility] CampusStart: 06-07-2025 End: 90-50-7838cxzwaraozqEwdmzcu M Hoy MD Work Phone: [facility] Work Phone: Start: 06-07-2025 End: 86-48-9375Fyewfzu encounter procedureCatherine L Ly DO-[facility] Work Phone: Start: 01-04-2025 End: 57-68-3795dysvpdrmgdNJWE [facility] Hospitaltart: 12-06-2024 End: 86-79-6738rbacltpyufUfjdfqajoC[facility] Clinic [facility] Work Phone: Start: 12-06-2024 End: 77-19-9034Zvgcdny encounter procedureChristycarilion new [facility] Physician GroupCarondelet Health Work Phone: Start: 08-20-2024 End: 35-94-2450nfjuzsqrlvNHLRJ ROSENFacility:[facility] Shawtart: 08-20-2024 End: 25-95-7108Txrwflw encounter procedureCuba Haywood MD Work Phone: Colorectal SurgeryComment on above:Follow-up examination after colorectal surgery (Primary Dx)Start: 07-20-2024 End: 57-75-6740otmbjkyjllVRRJWNZCherrington Hospitaltart: 06-04-2024 End: 59-37-1094qardsjaxnoDWXTL ROSENFacility:[facility] Shawtart: 06-04-2024 End: 29-99-1114Lakachb encounter Amanda Calderon APRN.CNP Work Phone: Colorectal SurgeryComment on above:Follow-up examination after colorectal surgery (Primary Dx)Start: 05-13-2024 End: 45-30-8942Mvjptjkpnq and management of inpatientDAALYSAD CHASTITY Facility:[facility]tart: 05-04-2024 End: 26-56-4583Dancypxfv encounterDolly Nelson APRN.CNP Work Phone: pre AnesthesiaComment on above:Anesthesia Consult Start: 04-30-2024 End: 27-74-7464Hcicfraqk to establishmentPacc George 1 Work Phone: pre AnesthesiaStart: 04-30-2024 End: 27-38-5259Nwcfkdspjo consultationPacc George 1 Work Phone: pre AnesthesiaComment on above:Pre-op evaluation (Primary Dx); Hyperlipidemia, unspecified hyperlipidemia type; Atrial fibrillation, unspecified type (HCC); Atherosclerosis of [place] coronary artery of [place] heart, unspecified whether angina present; Gastroesophageal reflux disease, unspecified whether esophagitis present; Essential hypertensionStart: 04-30-2024 End: 74-97-0593Jkewnaefmhxup examination Shanice Olsen Work Phone: [facility] Work Phone: Start: 04-30-2024 End: 42-72-8775qnlmvypfbhPILJH ROSENFacility:[facility] Shawtart: 43-81-3531Sxuwuihje for other preprocedural examinationCUBA HAYWOODOhiohealthStart: 04-28-2024 End: 40-77-8139cgttvdhzlcDRNXA ROSENFacility:[facility] Shawtart: 04-28-2024 End: 44-91-1997Dzrjpgi encounter procedureCuba Haywood MD Work Phone: Colorectal SurgeryComment on above:Crohn's disease of both small and large intestine without complication (HCC) (Primary Dx)Start: 04-16-2024 End: 78-03-9378roujupnqmaVI Perico Sandoval Andrey Work Phone: [facility] Work Phone: Start: 04-16-2024 End: 88-58-1240Ynzlqkf encounter procedure Perico Mccabe Work Phone: [phone] [place] [address] Ctr-CT Scan Main [place] Work Phone: Start: 04-05-2024 End: 57-16-5447Tpmtqsf encounter procedure Perico Mccabe Work Phone: [facility] G[facility] Work Phone: Start: 10-01-2023 End: 10-76-4092Qehlljlefh and management of inpatientVERN D [facility] Hospitaltart: 09-30-2023 End: 92-00-4890Zgviduamze and management of inpatientSUSAN [facility] Campustart: 09-16-2023 End: 80-36-7294Zvpygxcwgi and management of inpatientVERN D [facility] Hospitaltart: 09-16-2023 End: 59-20-4088Aqopzvphgw and management of inpatientSMcCullough-Hyde Memorial Hospitaltart: 09-11-2023 End: 77-30-9479omgoufkcpnSrypndma McCormack Other [employer] Other Start: 36-65-9566Chzjxy outpatient visit 25 minutes Enoch CaballeroG GastroenterologyStart: 37-29-3543Vjihrkiib encounter Enoch CaballeroG GastroenterologyStart: 08-27-2023 End: 99-14-5249mysccsdcbbQRRSG M [facility] Hospitaltart: 64-16-8046Eoyibnikb for other preprocedural examinationSMcCullough-Hyde Memorial Hospitaltart: 08-27-2023 End: 03-29-5914Rtccxiz encounter procedurePm Pre-Admission Testing [address] [place] [address] - Pre AdmitComment on above:Preop examination (Primary Dx); Coronary artery disease, unspecified vessel or lesion type, unspecified whether angina present, unspecified whether [place] or transplanted heartStart: 08-27-2023 End: 20-98-5552Tjiazxwrcqkjs examination done[address]tart: 05-19-2023 End: 21-17-0477qgjqxqobmoGhfhdrdu McCormack Other [employer] Other Start: 13-37-4820Awtzeqqhz encounterLawrence Deyvi [facility] GastroenterologyStart: 04-24-2023 End: 45-45-9558kzjczchuukIsbbjfbg Deyvi Other [employer] Other Start: 04-46-6236Dgipuhpgg encounterLawrence Deyvi [facility] GastroenterologyStart: 55-23-1582Byzgxo outpatient visit 25 minutesLamatt CaballeroG GastroenterologyStart: 51-65-2584Gqqgpymyv encounterLawrence AdaG GastroenterologyStart: 04-23-2023 End: 92-28-9812ghhqyjzjklEU Perico Sandoval Hojeremy Work Phone: [employer] [employer] Other Start: 04-23-2023 End: 33-62-1536Algmpjl encounter procedureMD Perico Mccabe Work Phone: [facility] [place] Work Phone: Start: 28-29-6290Nwzkdxosl for other preprocedural examinationPAUL [facility] HospitalStart: 15-28-0729Ctwzmzpvo for preprocedural laboratory examinationPAUL [facility] HospitalStart: 11-01-2022 End: 45-42-4598hngspgcqrhPYUP CHACKOFacility:T1Ipbzs: 11-01-2022 End: 01-95-5154Hbvarupmx for preprocedural laboratory examinationPAUL BENOIT Facility:C7Gtkfl: 46-65-1929Qccibmjwi for other preprocedural examinationPAUL [facility] Healthtart: 10-21-2022 End: 76-58-4639izzmhnretvPV PERICO MCCABE .Facility:J2Chymc: 10-19-2022 End: 86-81-4592nveodallshAYTNDC R DARRENEBERFacility:L7Bwffy: 10-19-2022 End: 67-54-2964Imcxtovlc for other preprocedural examinationSTEVEN R KATLYN Facility:E0Fwnsf: 09-05-2022 End: 85-51-0116huaojnsutuRfocdwcm Deyvi Other [facility] [employer] Other Start: 27-46-5656Hcqqrxlse encounterLawrence Deyvi [facility] GastroenterologyStart: 07-26-2022 End: 47-88-1160zkfyfexahqVP L R MARISSAORMSHYAMFacility:Q4Qyekx: 07-24-2022 End: 15-52-4854hrjcddgkepQhwereph Deyvi Other [employer] Other Start: 31-14-3258Wgiqhrndr encounterLawrence Deyvi [facility] GastroenterologyStart: 07-11-2022 End: 77-20-2864pzenbtnujeGV PERICO HOY .Facility:D5Duibu: 07-09-2022 End: 51-36-7968emwdlssgveTjrrswdt Deyvi Other [employer] Other Start: 46-17-7172Qllzoz outpatient new 45 minutes Enoch CauseyormackFPG GastroenterologyStart: 07-04-2022 End: 31-90-1355itkalitwgjQN PERICO HOY .Facility:F3Rrney: 06-22-2022 End: 09-95-9719kpakarzfdeNY PERICO HOY .Facility:Z9Cfakv: 06-10-2022 End: 73-74-0795glesgwmphmMK Perico M Hoy Work Phone: [facility] Work Phone: Start: 06-10-2022 End: 50-68-6823Mfnardh encounter procedureMD Perico Hoy Work Phone: [facility]-Digestive HealthStart: 05-27-2022 End: 13-56-2814irilljtorzSwqqxlzl McCormack Other [employer] Other Start: 66-23-3319Rdvnhxgah encounterLawrence Deyvi [facility] GastroenterologyStart: 05-08-2022 End: 85-27-5709gmqrivnikyIriavri R NILLFacility:CD:[id number]: 05-04-2022 End: 44-47-4149wmbtfjpaxnQD PERICO HOY .Facility:C4Mucwo: 04-13-2022 End: 92-43-3973bfgxozyqpsZG PERICO HOY .Facility:T1Hpdji: 04-01-2022 End: 78-27-3031Zwsmzey encounter procedureMichael R NILL 942-8012Ybwijw-XyabpThe [facility] [place] Start: 04-01-2022 End: 01-23-1569ckspjcxqmwIliwrzg R NILLFacility: Damaristart: 03-13-2022 End: 98-38-0389zpddpvdzupPD PERICO HOY .Facility:Q5Ritxz: 03-08-2022 End: 05-05-8068imaovhjolmGR PERICO HOY .Facility:R7Dhepw: 01-26-2021 End: 79-03-4317qispbqidskJJSFEVXTP UNKNOWNFacility:[facility] Procedures DateProcedureProcedure DetailPerforming ClinicianStart: 71-81-3173ZE of small intestineDokaylie Mccabe MD Work Phone: Start: 13-92-1049Rusibsdw screenDAVIKaylah ROSENComment on above:Order Comment: Specimen Type: BLOOD SPECIMEN Ordering Facility: [facility] Address: [address] [place], [place] [address]Performed By: #### [id number] #### [facility] CLIA [id number] [address] [place] [address] [place] OF AMERICAStart: 58-49-7443DJ of small intestineMD Perico Hoy Work Phone: Start: 45-73-3206Cljmmdc endoscopyMD Perico Hoy Work Phone: Start: 34-02-4600Lenhpwkpmtg of blood vesselMichael NILL Start: 10-01-0430Qkffzzqlp of stent into aortaMichael NILL Arthroplasty of kneeMichael NILL Arthroscopy of kneeMichael NILL Cardiac catheterizationMichael NILL Excision of cervical intervertebral discMichael NILL Comment on above:C6-Q0QpchptjacvnjtRlksxgg NILL VasectomyMichael NILL Plan of Treatment DateCare ActivityDetailCommunity Regional Medical Centertart: 41-77-3606Acoijptt ScreeningDiabetes ScreeningDayton VA Medical Centertart: 51-97-8422Citoavha ScreeningDiabetes Screening [facility] Centertart: 94-63-0541Jphoqrtkh B core antibody measurementMcCullough-Hyde Memorial Hospitaltart: 07-07-2025 End: 18-26-3948DtojzlbhpMcCullough-Hyde Memorial Hospitaltart: 39-13-9334Wlxza BMI ScreeningAdult BMI ScreeningIredell Memorial Hospitaltart: 74-57-1892Imlpajh ScreeningTobacco ScreeningIredell Memorial Hospitaltart: 08-20-2024 End: 18-63-0255Jjsrpdu encounter trkbiljab94/20/2024 10:40 AM EST Office Visit Colorectal Surgery [place] [id number] [place] [address] [place] [address] EST 3 mo f/u Open [employer] Ileocolic resection Colorectal SurgeryComment on above:EST 3 mo f/u Open [employer] Assist Ileocolic resectionStart: 05-13-2024 End: 21-41-5936Dluwrwaxh to same day surgery sznrmt7805/13/2024 7:30 AM EDT - 05/13/2024 9:50 AM EDT Surgery [facility] Operating Room [id number] [place] [address] [place] [address] [facility] [address] [place] [address] LAPAROSCOPY ENTERECTOMY RESECTION SMALL INTESTINE, SINGLE RESECTION AND ANASTOMOSISFaWestover Air Force Base Hospital Operating RoomComment on above:LAPAROSCOPY ENTERECTOMY RESECTION SMALL INTESTINE, SINGLE RESECTION AND ANASTOMOSISStart: 05-13-2024 End: 39-70-0176Oweq enterect rescj 1 small intest rescj & anaLAPAROSCOPY ENTERECTOMY RESECTION SMALL INTESTINE, SINGLE RESECTION AND ANASTOMOSIS Crohn's diseaseof both small and large intestine without complication (HCC) 05/13/2024 7:30 AM EDTFV ORStart: 47-76-5467Oloijgvwhk hospital visit by physician 05/13/2024 7:30 AM EDT Hospital Encounter [facility] Operating Room [address] [place] [place] [id number] [place] [address] [place], [place] [id number] Crohn's disease of both small and large intestine without complication (HCC) [K50.80][facility] Operating RoomComment on above:Crohn's disease of both small and large intestine without complication (HCC) [K50.80]Start: 52-78-1487Dskcj-19 Vaccine ()Covid-19 Vaccine ()[facility] Centertart: 59-39-5138Vlpny-19 Vaccine ()Covid-19 Vaccine ()[facility] Centertart: 13-98-1250Ddhkpdhjm vaccinationInfluenza Vaccine (#1)[facility] Centertart: 04-30-2024 End: 99-07-2203IRHEPDD BLOOD TYPEBellevue HospitalComment on above:Expected: 04/30/2024, Expires: 07/30/2024Start: 04-30-2024 End: 22-04-8930NOMG AND SCREEN,30 DAYSelect [facility] Work Phone: comment on above:Expected: 04/30/2024, Expires: 07/30/2024Start: 04-30-2024 End: 60-50-0981Vjbkbfrlvs yqwuiigjpnrb51/30/2024 1:40 PM EDT PAT Pre Anesthesia [address] [place] [address] 1, Pacc George [address] [place] [address] LAPAROSCOPY ENTERECTOMY RESE CTION SMALL INTESTINE, SINGLE RESECTION AND ANASTOMOSIS [8910] - Abdomen - N/A Pre AnesthesiaComment on above:LAPAROSCOPY ENTERECTOMY RESECTION SMALL INTESTINE, SINGLE RESECTION AND ANASTOMOSIS [7410] - Abdomen - N/AStart: 04-29-2024 End: 78-10-6272UBU W Auto Differential panel - BloodCOMPLETE BLOOD COUNT AND DIFFERENTIAL Lab Routine Crohn's disease of both small and large intestine without complication (HCC) Expected: 04/29/2024 (Approximate), Expires: 07/29/2024leveland [facility] Work Phone: Comment on above:Expected: 04/29/2024 (Approximate), Expires: 07/29/2024Start: 04-29-2024 End: 38-60-4530Aggvwnxvacugt metabolic 2000 panel - Serum or PlasmaCOMPREHENSIVE METABOLIC PANEL Lab Routine Crohn's disease of both small and large intestine withoutcomplication (HCC) Expected: 04/29/2024 (Approximate), Expires: 07/29/2024levelatrium health waxhaw ClinicComment on above:Expected: 04/29/2024 (Approximate), Expires: 07/29/2024Start: 96-90-5354Bseuosx Directive DiscussionAdvance Directive DiscussionDayton VA Medical Centertart: 17-88-2126Hwsmcoecjxww Vaccine: 65+ (1 of 1 - PCV)Pneumococcal Vaccine: 65+ (1 of 1 - PCV)[facility] Centertart: 09-30-2023 End: 24-79-5249Ofujzldlq to same day surgery jkvwqy5309/30/2023 3:00 PM EST - 09/30/2023 3:45 PM EST Surgery [facility] - Surgery [address] [place] [address] [place] [address] [place] [address] EXTRACTION CATARACT INTRAOCULAR LENS [52437 (CPT )][facility] SurgeryComment on above:EXTRACTION CATARACT INTRAOCULAR LENS [86461 (CPT )] Start: 43-97-0941Sncgvlxvsh hospital visit by fwjkaxbgd37/30/2024 3:00 PM EST Hospital Encounter [facility] - Surgery [address] [place] [id number] Letha Montoya MD [address] [place] [address] [phone] [facility] - SurgeryStart: 09-30-2023 End: 00-63-4291Taikeh ctrc rmvl insj io lens prosth w/o ecpEXTRACTION CATARACT INTRAOCULAR LENS cataract left eye 09/30/2023 3:00 PM ESTFREMONT SURGERYStart: 09-29-2023 End: 26-71-1666qlkqwsxfye27/29/2024 4:00 PM EST Support Visit [facility] Admit [address] [place] [address] [facility] AdmitStart: 09-16-2023 End: 97-64-7136Ixxozlsvl to same day surgery rqeiws0209/16/2023 3:00 PM EST - 09/16/2023 3:45 PM EST Surgery [facility] - Surgery [address] [place] [address] Letha Montoya MD [address] [place] [address] [id number] EXTRACTION CATARACT INTRAOCULAR LENS [75412 (CPT )][facility] - SurgeryComment on above:EXTRACTION CATARACT INTRAOCULAR LENS [24931 (CPT )] Start: 75-56-5841Zzitommvii hospital visit by sflqnigbj19/16/2024 3:00 PM EST Hospital Encounter [facility] - Surgery [address] [place] [address] Letha Montoya MD [address] [place] [address] [phone] [facility] - SurgeryStart: 09-16-2023 End: 00-79-9829Dsyipc ctrc rmvl insj io lens prosth w/o ecpEXTRACTION CATARACT INTRAOCULAR LENS cataract right eye 09/16/2023 3:00 PM ESTFREMONT SURGERYStart: 51-23-2248Zagyt-19 Vaccine ( season)Covid-19 Vaccine ( season)[facility] Centertart: 11-59-6531Zeeqcggtp vaccinationInfluenza Vaccine [facility] Hospitaltart: 27-50-3742KkjljzgpoMcCullough-Hyde Memorial Hospitaltart: 72-58-4453YFP Vaccine (1 - 1-dose 60+ series)RSV Vaccine (1 - 1-dose 60+ series) [facility]art: 67-44-1223FXY Vaccine (1 - Risk 60-74 years 1-dose series)RSV Vaccine (1 - Risk 60-74 years 1-dose series)[facility]ertart: 80-55-0048Njcvfcza specific antigen measurementProstate Cancer Screening DiscussionDayton VA Medical Centertart: 45-81-1577Pyhbcgubcmwkuc of varicella zoster vaccineZoster (Shingles) Vaccine (1 of 2)[facility] Hospitaltart: 71-30-4905Qomaddgl Vaccine (1 of 2)Shingrix Vaccine (1 of 2)[facility] Start: 40-25-8667Mdsaneyb ScreeningDiabetes ScreeningDayton VA Medical Centertart: 66-71-6718Vtokbnfte for malignant neoplasm of colonDayton VA Medical Centertart: 24-28-2683Nlcfc panelLipid ScreeningDayton VA Medical Centertart: 22-40-7053UQmP,Tdap and Td Vaccines (1 - Tdap)DTaP,Tdap and Td Vaccines (1 - Tdap)[facility] Hospitaltart: 59-32-6921Bdneyxolnjld Vaccine: 50+ (1 of 2 - PCV)Pneumococcal Vaccine: 50+ (1 of 2 - PCV)[facility] Cent[facility]art: 58-43-1929Enxiracx Vaccine (1 of 2)Shingrix Vaccine (1 of 2)[facility]ertart: 01-26-1549Xdtap microalbumin profileDTaP,Tdap,Td Vaccine (1 - Tdap)[facility]ertart: 80-11-7146Olhcs BMI Follow Up PlanAdult BMI Follow Up PlanProAvita Health System [facility]cy[facility] SystemStart: 76-20-3732Zjmihu PCP Team Chronic Disease VisitAnnual PCP Team Chronic Disease VisitDayton VA Medical Centertart: 57-49-9033Hphrcrk ScreeningAnxiety ScreeningDayton VA Medical Centertart: 67-51-5052EV Controlled (<130/80)BP Controlled (<130/80)[facility]ertart: 05-99-4855Cfqiqcrglk ScreeningDepression ScreeningDayton VA Medical Centertart: 50-84-6947Zcafidtgm B surface antibody levelLDL CholesterolDayton VA Medical Centertart: 62-90-7871Jjhtcntyg C screeningHepatitis C ScreeningDayton VA Medical Centertart: 61-72-0744SIR screeningHIV ScreeningDayton VA Medical Centertart: 87-94-8809Abwbywnbhp ScreeningDepression ScreeningPike Community Hospital SystemStart: 44-38-3966Cwvrsehufvmj Vaccine: 65+ (1 of 2 - PCV)Pneumococcal Vaccine: 65+ (1 of 2 - PCV)[facility] Abdomen and PelvisFisher-Titus Medical CenterECG COMPLETEECG COMPLETE ECG Routine Pre-op evaluation Ordered: 04/30/2024leveland ClinicComment on above:Ordered: 04/30/2024[facility] B virus surface Ab [Presence] in SerumMarietta Osteopathic Clinic B virus surface Ag [Presence] in Serum or Plasma by ImmunoassayFisher-Titus Medical CenterHerobert f. [facility] C virus IgG Ab [Presence] in Serum or Plasma by ImmunoassayFisher-Titus Medical CenterHerobert f. [facility] C virus RNA [log units/volume] (viral load) in Serum or Plasma by KAT with probe detection [facility] CenterHerobert [facility] C virus RNA [Units/volume] (viral load) in Serum or Plasma by KAT with probe detectionFisher-Titus Medical CenterInterferon gamma assayFisher-Titus Medical CenterMycobacterium tuberculosis stimulated gamma interferon [Interpretation] in Blood Qualitative [facility] Medical CenterMycobacterium tuberculosis stimulated gamma interferon release by CD4+ and CD8+ T-cells [Units/volume] corrected for background in BloodFisher-Titus Medical CenterMycobacterium tuberculosis tuberculin stimulated gamma interferon [Presence] in BloodFisher-Titus Medical CenterPatient EducationGastritis - Discharge instructions Hiatal hernia - Discharge instructions [facility] Hemorrhoids Discharge Instructions Know your Meds [facility] Colon Polypectomy Discharge InstructionsMiami Valley Hospital Work Phone: Payers DatePayer CategoryPayerPolicy [id number]-zar [id number] 2024MedicareUHC MEDICARE UHC MEDICARE ADVANTAGE PPO [id number] 2024-Present [phone] [address] [address] [place] [address] [id number] Health [id number] MEDICAL MUTUAL MMO SUPERMED [id number] 2019-Present [phone] [address] [place], [place] [id number]2230.55798-05-9231 Owza-[id number] 2.16.840.1.936246.3.579.2.73[id number] 2.16.840.1.855128.3.57[id number] 2.16.840.1.679668.3.579.2.35210-40-8932Frsebam4588421 2.16.840.1.840997.3.579.2.43449-55-8880Xyyoxdb6828550 2.16.840.1.430797.3.579.2.17844-16-5827Vklweut8452909 2.16.840.1.279464.3.579.2.63736-08-1953Ntcrjkp6004279 2.16.840.1.538723.3.579.2.81082-00-3317Atvcjvs7502867 2.16.840.1.020382.3.579.2.21066-10-4574Cttvfpu1669005 2.16.840.1.540478.3.579.2.94467-93-7327Mixvlyu6395516 2.16.840.1.114875.3.579.2.41992-95-4948Fwfoqty2522762 2.16.840.1.185153.3.579.2.50575-24-7914Dlheorr9902553 2.16.840.1.487665.3.579.2.11792-49-5903Qcamcmr3617679 2.16.840.1.625203.3.579.2.12731-33-5517Mpfaerr6011418 2.16840.1.814893.3.579.2.71496-49-1608Ajazlqn6200868 2.16840.1.127292.3.579.2.98317-00-5036Dsxkdhu3225565 2.16.840.1.864097.3.579.2.19346-22-2795Wbgjmys2148927 2.16.840.1.800393.3.579.2.56880-62-6475Xebcxgj0490375 2.16840.1.240045.3.579.2.99312-24-7304Gijomjg57743363 2.16.840.1.222681.3.579.2.406650-30-8674Jajktpz25205845 2.16840.1.607170.3.579.2.679223-32-9340Vvrcylu03022346 2.16.840.1.682411.3.579.2.141449-02-3533Sfkyugs4931909 2.16840.1.715855.3.579.2.576458-28-1636Pmbhcao8006927 2..1.484650.3.579.2.702518-69-5824Taqxmkf5762235 2.0.1.336171.3.579.2.719574-20-6242Agcwuof6062920 2.0.1.504177.3.579.2.294250-50-4343Sygtfwu8977984 2.0.1.924635.3.579.2.1286UnknownAnthem /[id number] 2.0.1.9[id number] 2..1.363083.3.579.2.531 Social History DateTypeDetailFacilityStart: 04-01-2022 End: 20-70-5631Tdmfepl smoking statusNever smoked tobacco (finding)[facility] Tobacco [facility] statusNeverK[facility] Start: 09-26-2020 End: 71-69-7014Gav Assigned At [facility] Start: 45-16-5927Iup [facility] At [facility]art: 11-03-3199Epqcquv smoking status NHISTobacco smoking consumption unknown (finding)[facility]21 End: 37-75-7086Ctygnng use and exposureSmokeless tobacco non-userProUc Medical Centerca Health SystemStart: 08-27-2023 End: 93-66-9964Seereomkp beverage intakeEx-drinker (finding)[facility]Start: 09-[facility]2020 End: 54-38-2758Ldvinqc of Social functionDayton VA Medical Centertart: 44-25-6826Bwh assigned at birthNot on [facility]. LouisHas the electric, gas, oil, or water company threatened to shut off services in your home in past 12MoNo [facility](I/We) worried whether (my/our) food would run out before (I/we) got money to buy more.Never trueDayton VA Medical Centertart: 53-75-8061Qhljqhm Commentvery Critical access hospitaltart: 04-99-0535NgbXjxd (finding) [facility] Medical Equipment Procedure CodeEquipment CodeEquipment Original TextEquipment IdentifierDates Capsule endoscopy, for patency of lumen evaluationVideo capsule endoscopy system ([id number] FDAStart: 06-10-2022 Goals DatePatient GoalDesired Activity/State Functional Status RlstPoczjofzmpNqbknfQtqkmujv39-31-5622Dhwogcnupy StatusN/[facility] [place] Clinical Notes 05-08-2022 to 06-22-2025 Note Date & IsxeCsygOrctjwde76-39-5726 Radiology Diagnostic study [facility] [place] [address] CT Scan Report Signed Patient: Ayo Alicia MR#: [id number] : 1960 Acct:[id number] Age/Sex: 65 / M ADM Date: 5 Loc: CT Room: Type: [facility] Attending Dr: Nelly Arias DO Copies to: Nelly Arias DO~ Ordering Provider: Nelly Arias DO Date of Service: 06/22/25 CT/CT enterography: K56.699 - Other intestinal obstruction unspecified as to ... CT enterography TECHNIQUE: Axial imaging with 2-D reconstruction. The CT exam was performed using one or more the following dose reduction techniques: Automated exposure control, adjustment of the MA and/or Kv according to patient size, or use of theiterative reconstruction technique. COMPARISON: 04/16/2024 History: Constipation and diarrhea. History of surgery. Removal of cecum and ileum. Appendectomy. LIMITATIONS: None LOWER THORAX small hiatal hernia. Lung bases clear. LIVER: Hepatic steatosis GALLBLADDER: Cholelithiasis identified. BILE DUCTS: No dilatation SPLEEN: Calcified splenic granulomas. PANCREAS: Unremarkable ADRENAL GLANDS: Unremarkable KIDNEYS:Similar left renal cyst. AORTA: No abdominal aortic aneurysm identified. Atherosclerosis. RETROPERITONEUM: No significant retroperitoneal abnormalities identified. MESENTERY:Unremarkable STOMACH:Unremarkable SMALL BOWEL: Nondistended small bowel. No segmental wall thickening. No adjacent inflammation. No pneumatosis. APPENDIX: The appendix is normal. COLON: Sickle postsurgical changes. Mild distention of the colon. No focal narrowing. No wall thickening. URINARY BLADDER: Urinary bladder is unremarkable. REPRODUCTIVE SYSTEM: Reproductive structures are unremarkable. PNEUMOPERITONEUM: None PERITONEAL FLUID:None BONY STRUCTURES: L3-4 degenerative change. ABDOMINAL WALL: Small fat-containing umbilical hernia. CT/CT enterography IMPRESSION: Postsurgical changes of removal of the cecum and terminal ileum without complication seen. No regions of small bowel wall thickening. No wall thickening of the colon. No adenopathy. Cholelithiasis. Tiny hiatal hernia. No focal inflammatory changes. Impression dictated by: Thomas Sun M.D. 06/22/2025 4:36 PM Dictation Location: [place] [address] Transcribed By: [facility] 06/22/25 1636 Dictated By: Thomas Sun DO 06/22/25 1626 Signed By: 06/22/25 1636 [facility]10-07-2025 Evaluation note* Diagnosis Onset Date Resolution Status Admit Date Iron deficiency anemia acuteOctober 2024 1:24pmStricture of small intestineacuteOctober 2024 1:24pm [facility] Work Phone: 1(182) 922-840205-06-2025 [facility] Chief Complaint: HPI: Ayo [...] by intravascular lithotripsy and (more content not included)...[facility]12-20-2024 History of Present illness Narrative* Cuba Haywood MD - 08/20/2024 10:40 AM EST COLORECTAL SURGERY August 20, 2024 Ayo Alicia 64 year old Chief Complaint: post op, Crohn's disease History of Present Illness: Ayo Alicia is a 64 year old male presents today s/p Laparoscopic Ileocolic Resection (PartialColectomy) on 05/13/24 due to Crohn's disease, retained endoscopy capsule. Operative Findings: Extremely thickened friable ileal mesentery, normal colon, capsule found stuck in distal ileum prior to stricture Surgical Pathology FINAL DIAGNOSIS Terminal ileum, cecum, and appendix, ileocecectomy: - Segment of small bowel with multiple strictures, patchy chronic active enteritis, ulcers, pyloricgland metaplasia, and inflammatory-type polyps. - Retained endoscopy [...] three times a day as needed for musclespasms. 15 tablet 0 adalimumab (JOSE J,CF, PEN OYGCPM-WW-HW) 80 mg/0.8 mL pen kit Inject 80 [...] BP Cuff Size: Regular Adult) Pulse 77 Temp36.3 C (97.3 F) SpO2 98% General Appearance: [...] Haywood MD Colorectal Surgery documented in [facility]12-20-2024 NoteHNO ID: [id number] Author: CUBA HAYWOOD MD Service: ? Author [...] spasms. 15 tablet 0 adalimumab (HUMIRA,CF, PEN OBVQDA-TD-UW) 80 mg/0.8 mL pen kit Inject 80 [...] of treatment plan: mauricio Haywood MD [facility]-2024 NotePt is here for six month follow up. Review of Systems Constitutional: Positive for malaise/fatigue. Musculoskeletal: Positive for arthritis, back pain, joint pain and myalgias. Gastrointestinal: Positive for abdominal pain. Neurological: Positive for light-headedness ( occasional ). All other systems reviewed and are negative.[facility] 07-20-2024 NoteCardiovascular Medicine [facility] SUBJECTIVE Chief Complaint Patient presents with Coronary [...] spine Erectile dysfunction Fatigue Iron deficiency anemia nursing home current use of anticoagulant therapy Aortic valve [...] ALT 14 05/27/23 Hgb (more content not included)...[facility]10-04-2024 History of Present illness Narrative* Pearl Calderon APRN.CALENDERING SUPERVISOR - 06/04/2024 12:20 PM EDT COLORECTAL SURGERY June 04, 2024 Ayo Rodriguez Withem 64 year old This consult was requested by Dr. Haywood and my final recommendations will be communicated to the requesting health care provider by way of the shared medical record for internal providers or letter via the [employer] for external providers. Chief Complaint: [...] multiple strictures, patchy chronic active enteritis, ulcers, pyloricgland metaplasia, and inflammatory-type polyps. - Retained endoscopy [...] three times a day as needed for musclespasms. 15 tablet 0 adalimumab (HUMIRA,CF, PEN HDQBEP-NK-VH) 80 mg/0.8 mL pen kit Inject 80 [...] BP Cuff Size: Regular Adult) Pulse 69 Temp36.6 C (97.8 F) SpO2 99% General Appearance: Well appearing, alert, in no acute distress, well-hydrated, well nourished. Abdomen: Soft, nontender, nondistended. Incisions healing well and glue is gone. Mild tenderness inthe right lower quadrant Assessment Assessment and Plan: [...] Calderon APRN.CNP Colorectal Surgery documented in this encounterBelle[facility]10-04-2024 NoteHNO ID: [id number] Author: PEARL CALDERON APRN.CNP Service: ? Author Type: Nurse Practitioner Type: Progress Notes Filed: 06/04/2024 12:46 Note Text: COLORECTAL SURGERY June 04, 2024 Ayo Alicia 64 year old This consult was requested by Dr. Haywood and my final recommendations will be communicated to the requesting health care provider by way of the shared medical record for internal providers or letter via the [employer] for external providers. Chief Complaint: [...] spasms. 15 tablet 0 adalimumab (HUMIRA,CF, PEN JESYFU-KF-BI) 80 mg/0.8 mL pen kit Inject 80 [...] in 3 months, scheduled (more content not included)...[facility]10-04-[facility] Nurse Note* Arleen Jernigan OCCA - 06/04/2024 12:19 PM EDT What is the reason for your visit today? Post op Who is your referring physician? Are you having poor oral intake? NO Have you had unintentional weight loss of 15 lbs/7 Kg in the last 3-6 months? NO Bowels: regular or soft Wound: clean & dry Temperature: No Drains: No [facility]10-04-2024 Nurse Note* Arleen Jernigan OCCA - 06/04/2024 12:19 PM EDT What is the reason for your visit today? Post op Who is your referring physician? Are you having poor oral intake? NO Have you had unintentional weight loss of 15 lbs/7 Kg in the last 3-6 months? NO Bowels: regular or soft Wound: clean & dry Temperature: No Drains: No documented in this [place]Christ[place] [address]-17-2024 NoteHNO ID: [id number] Author: ?, ?, ? Service: ? Author Type: ? Type: Plan of Care Filed: 05/18/2024 18:00 Note Text: PHARMACY BEDSIDE DELIVERY SERVICE Patient Name: Ayo Alicia The marked outpatient medications were Filled at: [place] and delivered to the patient's bedside to [place] [address]. Medication List START taking these medications DIGESTIVE [...] tablet Commonly known as: COREG HUMIRA(CF) PEN QVEHVH-PN-BM 80 mg/0.8 mL pen kit Generic drug: [...] neomycin 500 mg tablet Lis Herbert PAGER: [phone] May 18, 2024 5:59 [facility]09-17-2024 NoteHNO ID: [id number] Author: NASIM JENKINS LSW Service: Care Management Author Type: Asphalt Mixer Type: Care Mgt Progress Note Filed: 05/18/2024 [...] Primary Care Physician Name/Phone: Perico Mccabe MD [phone] Additional Information: Patient is ambulating the sotelo unassisted with no DME. No skilled needs. SIGNATURE: FIDELINA Lara PATIENT NAME: Ayo Alicia DATE: May 18, 2024 TIME: 1:20 PM CONTACT #: [phone] IMM Follow Up Copy Given: Yes Copy given to:: Patient Method: In PersonLongwood HospitalLzyetkzo34-29-8440 NoteHNO ID: [id number] Author: AMADA PETTIT MD Service: Colorectal Author [...] Surgery Resident, PGY-2 05/18/2024 7:57 AM Pager: [phone] SUBJECTIVE: - No acute events overnight - [...] WBC 12.88* HB 8.4* HCT 27.6* PLT 382FaWestover Air Force Base HospitalWvizmgzn48-79-1913 NoteHNO ID: [id number] Author: AMADA PETTIT MD Service: Colorectal Author [...] Surgery Resident, PGY-2 05/17/2024 5:58 AM Pager: [phone] SUBJECTIVE: - No acute events overnight - [...] MG -- 1.9 -- CA -- 8.3* --Longwood HospitalAofrqame04-31-6069 NoteHNO ID: [id number] Author: VANITA CLAIRE RN Service: Care Management Author Type: Registered Nurse Type: Care Mgt Progress Note Filed: 05/16/2024 16:09 Note Text: CARE MANAGEMENT PROGRESS NOTE SERVICE DATE: 05/16/2024 SERVICE TIME: 4:07 PM LOS: 3 days Post-Acute Discharge Planning Patient Goal(s): General wellness [place] of Choice Explained: Yes post-Acute Discharge Plan: CM met with pt at bedside. Pt agreeable to visit. PT rec Home PT. Choices HC agencies provided to pt and referrals sent in [facility]. Will need F2F order. Several attempts to contact surg resident iron bender for order. SIGNATURE: Vanita Claire RN PATIENT NAME: Ayo Rodriguez Withem DATE: May 16, 2024 TIME: 4:07 PM PAGER/CONTACT #: [phone] [id number] NoteHNO ID: [id number] Author: VANITA CLAIRE RN Service: Care Management Author Type: Registered Nurse Type: Care Mgt Progress Note Filed: 05/16/2024 15:19 Note Text: CARE MANAGEMENT PROGRESS NOTE SERVICE DATE: 05/16/2024 SERVICE TIME: 3:17 PM LOS: 3 days Post-Acute Discharge Planning Patient Goal(s): General wellness [place] of Choice Explained: Yes Post-Acute Discharge Plan: PT rec Home PT. CM met with pt at bedside. Pt is agreeable to HC PT. Unable to reach surgery for HC order. Bedside RN stated she will try to reach certified surgical tech/first assistant for HC order. SIGNATURE: Vanita Claire RN PATIENT NAME: Ayo Rodriguez Withem DATE: May 16, 2024 TIME: 3:17 PM PAGER/CONTACT #: [phone] [id number] NoteHNO ID: [id number] Author: AMADA PETTIT MD Service: Colorectal Author [...] Surgery Resident, PGY-2 05/16/2024 9:02 AM Pager: [phone] SUBJECTIVE: - No acute events overnight - [...] 1.9 -- 1.4* CA -- 8.3* -- 8.3*Longwood HospitalZixkqlww27-52-6263 NoteHNO ID: [id number] Author: HARRISON RIVERA DO Service: Colorectal Author [...] 05/13/24. - Pain: Multimodal pain regimen, D/C HUMAN RESOURCES RECORDS CLERK - CV: Repeat Hb today at noon. [...] DO, PhD General Surgery Resident, PGY-6 Pager: [phone] Subjective INTERVAL HISTORY OF PRESENT ILLNESS: No [...] mg INTRAVENOUS q 2 MIN PRN HYDROmorphone HUMAN RESOURCES RECORDS CLERK 0.5 mg/mL in NaCl 0.9% 100 mL [...] Date Value 04/30/2024 8 (L) URINALYSIS Specific [place], Ur Date Value Ref Range Status 02/12/2021 [...] Urine Date Value R (more content not included)...[facility] HospitalRqiasquj41-18-8605 NoteHNO ID: [id number] Author: NASIM JENKINS LSW Service: Care Management Author Type: Asphalt Mixer Type: Care Mgt Initial Assessment Filed: 05/14/2024 [...] Current Advance Directive: Health Care Power of Printed Circuit Photographer In Chart: No Conveyor Belt Repairer Attempted to Assist with AD Completion: Yes Action: Education Provided Current Living Arrangements and Support Lives with: Spouse/significant other Type of Residence: Private Residence (House) Does the patient have to climb stairs at home?: stairs within the home Support: Spouse/significant other, Children, Family members How do you manage to accomplish the following: Independent: Ambulation;Transportation to appointments/community;Bathe/Shower;Dress;Meals/Meal Prep;Going to the bathroom;Medication Management Current Services/Equipment Current Post-Acute Service(s): DME Current DME Type: Walker, Cane Discharge Planning Patient Goal(s): General wellness [place] of Choice Explained: [place] of Choice Given: No Reason Not Given: [...] forward to finally being able to tackle [employer] projects. Per patient he is and has 2 children - a son and daughter. Per patient his son is his POA. No forms in the chart at this time. Patients dad about 3 years ago, his mom lives close by. No skilled needs. HCPOA [place] on file within [employer] and verified to be current as of date/time of this note: No Legal Next of Kin Hierarchy per [place] Revised Code: not in the chart - per patient his son has the forms Majority of Adult Children (consensus if possible) son and daughter Parents mom Majority of Adult Siblings (consensus if possible) sister Nearest Blood Relative FIDELINA Lara May 14, 2024 SIGNATURE: FIDELINA Lara PATIENT NAME: Ayo Alicia DATE: May 14, 2024 TIME: 12:32 PM CONTACT #: [phone] [id number] NoteHNO ID: [id number] Author: HARRISON RIVERA DO Service: Colorectal Author [...] - VTE Ppx: SCDs, SQH - Disposition: RNF Plan of care discussed with staff. Harrison Rivera DO, PhD General Surgery Resident, PGY-6 Pager: [phone] Subjective INTERVAL HISTORY OF PRESENT ILLNESS: No [...] mg INTRAVENOUS q 2 MIN PRN HYDROmorphone HUMAN RESOURCES RECORDS CLERK 0.5 mg/mL in NaCl 0.9% 100 mL [...] Date Value 04/30/2024 8 (L) URINALYSIS Specific [place], Ur Date Value Ref Range Status 02/12/2021 [...] Value Ref Range Status 02/12/2021 Negative Negative FinalLongwood HospitalWcpwwuwl90-83-8471 NoteHNO ID: [id number] Author: ROHIT DEL CID APRN.INSPECTOR OPEN DIE Service: Anesthesiology Author Type: Nurse Acid Tester Type: Anesthesia Procedure Notes Filed: 05/13/2024 09:27 Note Text: ANESTHESIOLOGY PROCEDURE NOTE PIV General Information Procedure Start Time/Medication Administration: 05/13/2024 9:05 AM Procedure End Time: 05/13/2024 9:06 AM Patient Location: OR Staffing INSPECTOR OPEN DIE: Rohit Del Cid APRN.INSPECTOR OPEN DIE Performed by: ESSENCE Preparation Sterility Preparation: hand hygiene performed prior to procedure Site Prep: Chloraprep Procedure Details Indication: need for IV access Needle Size/Type: 18 gauge angiocath Orientation: Right Location: Hand Imaging Guidance Used: No SIGNATURE: Rohit Del Cid APRN.CRNA PATIENT NAME: Ayo Rodriguez Withem DATE: May 13, 2024 TIME: 9:27 AM CSN: [id number] NoteHNO ID: [id number] Author: ROHIT DEL CID APRN.CRNA Service: Anesthesiology Author Type: Nurse Acid Tester Type: Anesthesia Procedure Notes Filed: 05/13/2024 08:33 Note Text: ANESTHESIOLOGY PROCEDURE NOTE Airway General Information Procedure Start Time/Medication Administration: 05/13/2024 7:55 AM Procedure End Time: 05/13/2024 7:56 AM Patient location during procedure: OR Patient identity confirmed: arm band Staffing INSPECTOR OPEN DIE: Rohit Del Cid APRN.INSPECTOR OPEN DIE Performed by: ESSENCE Indications and Patient Condition [...] May 13, 2024 TIME: 8:32 AM CSN: [id number] Telephone encounter Note * Telephone Encounter - Erna Montoya LPN - 05/07/2024 10:21 AM EDT Spoke with patient via phone call. Aware of anticoag instructions. No questions/concerns voiced. Erna Montoya LPN [facility]09-06-2024 Miscellaneous Notes* Telephone Encounter - Erna Montoya LPN - 05/07/2024 10:21 AM EDT Spoke with patient via phone call. Aware of anticoag instructions. No questions/concerns voiced. Erna Montoya LPN * Telephone Encounter - Dolly Nelson APRN.JOVANA - 05/07/2024 9:54 AM EDT I just received fax from cardiology patient okay to stop Eliquis 3 days prior to procedure but he would like him to continue the ASA (PACC OXYGEN THERAPY TEACHER please call and relay this message to patient). Just wanted to send an FYI. T&S completed. If there are any issues with him continuing the ASA or anything else needed from my end please let me know. Thanks, Dolly Nelson APRN.JOVANA * Telephone Encounter - Dolly Nelson APRN.JOVANA - 05/04/2024 12:29 PM EDT I saw this patient for pre-anesthesia on [...] A type and screen has been completed. Wouldyou like to postpone and have him get a series of infusions first or do you feel it is okay to proceed? Thank you, Lidya documented in this encounterBellevue Hospital09-06-2024 Telephone encounter Note * Telephone Encounter - Dolly Nelson APRN.CNP - 05/07/2024 9:54 AM EDT I just received fax from cardiology patient okay to stop Eliquis 3 days prior to procedure but he would like him to continue the ASA (PACC OXYGEN THERAPY TEACHER please call and relay this message to patient). Just wanted to send an FYI. T&S completed. If there are any issues with him continuing the ASA or anything else needed from my end please let me know. Thanks, Dolly Nelson APRN.CNP [facility]09-03-2024 Telephone encounter Note* Telephone Encounter - Dolly Nelson APRN.CNP - 05/04/2024 12:29 PM EDT I saw this patient for pre-anesthesia on [...] A type and screen has been completed. Wouldyou like to postpone and have him get a series of infusions first or do you feel it is okay to proceed? Thank you, Lidya [facility]08-30-2024 History and physical note* Dolly Nelson APRN.CNP - 04/30/2024 1:40 PM EDT HISTORY AND PHYSICAL EXAMINATION SERVICE DATE: 04/30/2024 SERVICE TIME: 1:44 PM PRIMARY CARE PHYSICIAN: Perico Mccabe MD REASON FOR VISIT: Ayo Alicia is a 64 year old male who is scheduled for LAPAROSCOPY ENTERECTOMY RESECTION SMALLINTESTINE, SINGLE RESECTION AND ANASTOMOSIS at the request [...] any palpitations or recurrence Follows with Dr. aPgan @ [place] Atherosclerosis of coronary artery Assessment: Stable S/p Stenting in 2020 On ASA, DOAC, & Statin Negative stress test 06/17/2023 Follows with Cardiology at [place] GERD (gastroesophageal reflux disease) Assessment: Controlled with [...] have a large neck STOP-Bang Score: 3 [id number] Score: Age: 65-74 Sex: male CHF history: No Hypertension history: Yes Stroke/TIA/thromboembolism history: No Vascular disease history: Yes Diabetes history: No [id number] Score: 3 ARISCAT Score: Age: 51-80 Preoperative [...] Thick neck: no Lip Bite Test: II Microretrognathia/Micronagthia/Recessed Chin: No DENTAL Dental findings: teeth intact [...] This should be scheduled to be collected noearlier than 29 days before your scheduled procedure. If you receive blood products (red blood cells, platelets, plasma, cryoprecipitate) at any point before your procedure or are a female and become, please inform your provider. This test will be canceled, and a standard type and screen will need to be ordered to be collected within 3 days of your procedure. Order Specific Question: [facility] or Procedure: Answer: Devin Order Specific Question: Status of surgery/procedure: Answer: [...] 6 hours as needed. adalimumab (HUMIRA,CF, PEN SYWNDZ-OU-FN) 80 mg/0.8 mL pen kit Sig: Inject [...] pain especially when lifting items. Has elected forsurgical intervention. PAST MEDICAL HISTORY No date: A-fib [...] 6 hours as needed. Taking Yes adalimumab (HUMPEGGY,CF, PEN VONFZY-YM-UU) 80 mg/0.8 mL pen kit Inject 80 [...] as directed. Take one tab at 6:00 p.m.,another at 7:00 p.m. and the last one [...] fevers. Neuro: No history of TIA's, stroke, PAINT PREPARER tumor, impaired sensorium, hemiplegia, paraplegia or quadraplegia. No neurological symptoms or problems. Respiratory: No history of current cough or dyspnea, or pneumonia in the past 6 weeks. No history of respiratory/pulmonary symptoms or problems. Cardiovascular: Negative for Recent [place], Angina, Chest Pain, PVD, DVT/PE +CAD s/p [...] Rodriguez Withem DATE: 04/30/2024 TIME: 2:08 PM [facility]08-30-[facility] History and physical note* Dolly Nelson APRN.JOVANA - 04/30/2024 1:40 PM EDT HISTORY AND PHYSICAL EXAMINATION SERVICE DATE: 04/30/2024 SERVICE TIME: 1:44 PM PRIMARY CARE PHYSICIAN: Perico Mccabe MD REASON FOR VISIT: Ayo Alicia is a 64 year old male who is scheduled for LAPAROSCOPY ENTERECTOMY RESECTION SMALLINTESTINE, SINGLE RESECTION AND ANASTOMOSIS at the request [...] or recurrence Follows with Dr. Pagan @ [place] Atherosclerosis of coronary artery Assessment: Stable S/p Stenting in 2020 On ASA, DOAC, & Statin Negative stress test 06/17/2023 Follows with Cardiology at [place] GERD (gastroesophageal reflux disease) Assessment: Controlled with [...] have a large neck STOP-Bang Score: 3 [id number] Score: Age: 65-74 Sex: male CHF history: No Hypertension history: Yes Stroke/TIA/thromboembolism history: No Vascular disease history: Yes Diabetes history: No [id number] Score: 3 ARISCAT Score: Age: 51-80 Preoperative [...] Thick neck: no Lip Bite Test: II Microretrognathia/Micronagthia/Recessed Chin: No DENTAL Dental findings: teeth intact [...] This should be scheduled to be collected noearlier than 29 days before your scheduled procedure. If you receive blood products (red blood cells, platelets, plasma, cryoprecipitate) at any point before your procedure or are a female and become, please inform your provider. This test will be canceled, and a standard type and screen will need to be ordered to be collected within 3 days of your procedure. Order Specific Question: [facility] or Procedure: Answer: Devin Order Specific Question: Status of surgery/procedure: Answer: [...] 6 hours as needed. adalimumab (HUMIRA,CF, PEN MPNRWC-UN-VQ) 80 mg/0.8 mL pen kit Sig: Inject [...] pain especially when lifting items. Has elected forsurgical intervention. PAST MEDICAL HISTORY No date: A-fib [...] Prior to Admission medications as of 04/30/24 1207 Medication Sig Last Dose Taking acetaminophen (TYLENOL) 325 mg tablet Take 650 mg by mouth every 6 hours as needed. Taking Yes adalimumab (HUMIRA,CF, PEN RTFCAN-EX-NV) 80 mg/0.8 mL pen kit Inject 80 [...] as directed. Take one tab at 6:00 p.m.,another at 7:00 p.m. and the last one [...] fevers. Neuro: No history of TIA's, stroke, PAINT PREPARER tumor, impaired sensorium, hemiplegia, paraplegia or quadraplegia. No neurological symptoms or problems. Respiratory: No history of current cough or dyspnea, or pneumonia in the past 6 weeks. No history of respiratory/pulmonary symptoms or problems. Cardiovascular: Negative for Recent [place], Angina, Chest Pain, PVD, DVT/PE +CAD s/p [...] 04/30/2024 TIME: 2:08 PM documented in this encounterBellevue Hospital08-30-2024 Instructions* Patient Instructions* Dolly Nelson APRN.CNP - 04/30/2024 8:09 AM EDT PATIENT PREOPERATIVE INSTRUCTIONS Your Surgeon has scheduled you for your procedure at this [facility] center: [facility]: [phone] --[address] [place] [address]. Please check in on the1st floor at registration desk 6. Please read [...] Procedures: - YOU MUST HAVE A RESPONSIBLE LENS ASSORTER TAKE YOU HOME. A AUTOMOTIVE PARTS COUNTER PERSON OR BRAKE REPAIRER HYDRAULIC CANNOT BE MADE A RESPONSIBLE LENS ASSORTER. - We recommend that a responsible person stays with you overnight to take care of you. - You cannot stay in a hotel alone after outpatient surgery. You will not be permitted to have yoursurgery, if you do not have someone to [...] Advance Directive, please fax a copy to [phone] or email to for it to be added to your chart. If you do not have an Advance Directive, you can find the appropriate form and more information at [email or web address]. We recommend that youcomplete the Advance Directive form found on the website and bring it with you the day of your surgery. It can be witnessed and scanned into your chart that day. Dolly Nelson APRN.JOVANA documented in this encounterB[facility] History of Present illness Narrative* Cuba Haywood MD - 04/28/2024 12:20 PM EDT COLORECTAL SURGERY April 28, 2024 Ayo Alicia 64 year old This consult was requested by Dr. Arias and my final recommendations will be communicated to the requesting health care provider by way of the shared medical record for internal providers or letter via the [employer] for external providers. Chief Complaint: retained capsule History of Present Illness: Ayo Alicia is a 64 year old male presents today for evaluation of retained endoscopic camera. Crohn's disease - dx [address] [facility] [address] enterography 04/16/24 Scan on 04/22/2024 8:26 AM by Lisa Arreaga: [facility] ABD & PEL [phone] - Tiny hiatal hernia - Cholelithiasis - [...] Haywood MD Colorectal Surgery documented in this encounterBellevue Hospital08-28-[facility]24 NoteHNO ID: [id number] Author: CUBA HAYWOOD MD Service: ? Author Type: Physician Type: Progress Notes Filed: 04/29/2024 21:55 Note Text: COLORECTAL SURGERY April 28, 2024 Ayo Alicia 64 year old This consult was requested by Dr. Arias and my final recommendations will be communicated to the requesting health care provider by way of the shared medical record for internal providers or letter via the [employer] for external providers. Chief Complaint: retained capsule History of Present Illness: Ayo Alicia is a 64 year old male presents today for evaluation of retained endoscopic camera. Crohn's disease - dx [address] enterography 04/16/24 Scan on 04/22/2024 8:26 AM by Lisa Arreaga: [facility] CT ABD AND PEL [phone] - Tiny hiatal hernia - Cholelithiasis - [...] treatment plan: high Cuba Haywood [facility] Evaluation note* Encounter Date Diagnosis Assessment Notes Treatment Notes Treatment Clinical Notes Sep, Crohns disease (ICD-10 - K50.90) [...] did have some recent labs done at [facility] will obtain these reports Patient is to start Amjevita RTO 6 weeks [employer] Other 12-27-2023 Instructions* Patient Instructions* Supriya Morel [...] you have a Living Will/Durable Power of [employer] that is not on file here, please bring a copy the day of surgery. 3. Please wash your face with baby shampoo prior to procedure as instructed by your physician. 4. NO powder, lotion, perfume/cologne, aftershave, make-up, nail yi on at least one finger, deodorant, or [...] please call the [facility] office at [phone], Mon.-Fri. 7 a.m.-3 p.m. Leave a voicemail [...] days prior to procedure [facility] Miscellaneous Notes* Perioperative Nursing Note - Supriya [...] you have a Living Will/Durable Power of [employer] that is not on file here, please bring a copy the day of surgery. 3. Please wash your face with baby shampoo prior to procedure as instructed by your physician. 4. NO powder, lotion, perfume/cologne, aftershave, make-up, nail yi on at least one finger, deodorant, or [...] please call the [facility] Testing office at [phone], Mon.-Fri. 7 a.m.-3 p.m. Leave a voicemail [...] reviewed. Patient verbalized understanding. documented in this encounter[facility]27-[facility] Nurse Note* Perioperative Nursing Note - Supriya Morel RN - 08/27/2023 12:45 PM EST Preoperative Education Checklist- General Surgery date: 09/16/23 Surgery time: 3:00 p.m. Arrival time: 1:00 p.m. 1. Bring a photo ID and your insurance card with you the day of surgery. You will check in at the main [employer] registration desk as soon as you walk in the entrance. 2. If you have a Living Will/Durable Power of [employer] that is not on file here, please bring a copy the day of surgery. 3. Please wash your face with baby shampoo prior to procedure as instructed by your physician. 4. NO powder, lotion, perfume/cologne, aftershave, make-up, nail yi on at least one finger, deodorant, or [...] please call the P[facility]mission Testing office at [phone], Mon.-Fri. 7 a.m.-3 p.m. Leave a voicemail [...] Stop taking 0 days prior to procedure [email or web address] Nurse Note* Perioperative Nursing Note - Supriya Morel RN - 08/27/2023 12:45 PM EST Surgical instructions reviewed. Patient verbalized understanding. [email or web address] Evaluation note* Encounter Date Diagnosis Assessment Notes Treatment Notes Treatment Clinical Notes May, Crohns disease (ICD-10 - K50.90) [employer] Other 08-24-2023 Evaluation note* Encounter Date Diagnosis Assessment Notes Treatment Notes Treatment Clinical Notes Apr, Iron deficiency anemia (ICD-10 - D50.9) [employer] Other 08-23-2023 Evaluation note* Encounter Date Diagnosis Assessment Notes Treatment Notes Treatment Clinical Notes Apr, Crohns disease (ICD-10 - K50.90) Pt is taking budesonide. Pt advised to start humira and stop budesonide. Labs ordered Pt RTO in 6 wks [employer] Other 11-23-2022 Evaluation note* Encounter Date Diagnosis Assessment Notes Treatment Notes Treatment Clinical Notes Jul, Iron deficiency anemia (ICD-10 - D50.9) [employer] Other 11-08-2022 Evaluation note* Encounter Date Diagnosis Assessment Notes Treatment Notes Treatment Clinical Notes Jul, Iron deficiency anemia (ICD-10 - D50.9) Jul,rohns disease (ICD-10 - K50.90)CONTINUE SULFASALAZINE 2 TABLETS TWICE A DAY RTO 4 WEEKS Jul,bdominal pain (ICD-10 - R10.9) Jul,2Diarrhea (ICD-10 - R19.7) [employer] Other 09-07-2022 NoteOPERATIVE NOTE OPERATION DATE: 05/08/2022 [...] in good condition. CC: Perico Mccabe M.D.[facility] + Plan note No data available for this section [facility] Evaluation noteNo assessment information available [facility] [employer] Work Phone: Evaluation noteNo InformationN[employer] Other Evaluation note* Diagnosis Onset Date Resolution Status Abdominal pain acuteCrohn's diseaseacuteWeight loss, non-intentionalacute [facility] Work Phone: Evaluation note* Diagnosis Crohn's disease of both small and large intestine without complication (HCC)- Primary Regional enteritis of small intestine with large intestine Crohn's disease of both small and large intestine without complication (HCC) Regional enteritis of small intestine with large intestine documented in this encounter [facility]* Diagnosis Pre-op evaluation- Primary Preoperative examination, unspecified Hyperlipidemia, unspecified hyperlipidemia type Atrial fibrillation, unspecified type (HCC) Atherosclerosis of [place] coronary artery of [place] heart, unspecified whether angina present Gastroesophageal reflux [...] stress test 06/17/2023 Follows with Cardiology at [facility] * Assessment & Plan Note - Dolly Nelson APRN.CNP - 04/30/2024 2:01 PM EDT Associated Problem(s): Atrial fibrillation (HCC) Assessment: Stable per last Cardiology OV note 01/04/2023 S/p Ablation 11/21/2022 On BB, ASA, and Eliquis- Will send letter for coag clearance Denies any palpitations or recurrence Follows with Dr. Pagan @ [facility] * Assessment & Plan Note - Dolly Nelson APRN.CNP - 04/30/2024 1:47 PM EDT Associated Problem(s): Hyperlipidemia Assessment: On Statin Follows with PCP documented [facility] encounter [facility]* Diagnosis Pre-op evaluation- Primary Preoperative examination, unspecified Hyperlipidemia, unspecified hyperlipidemia type Atrial fibrillation, unspecified type (HCC) Atherosclerosis of [place] coronary artery of [place] heart, unspecified whether angina present Gastroesophageal reflux disease, unspecified whether esophagitis present Essential hypertension Unspecified essential hypertension Anemia, unspecified type Follow-up examination after colorectal surgery- Primary Follow-up examination, following other surgery documented in this encounter [facility] note* Diagnosis Pre-op evaluation- Primary Preoperative examination, unspecified Hyperlipidemia, unspecified hyperlipidemia type Atrial fibrillation, unspecified type (HCC) Atherosclerosis of [place] coronary artery of [place] heart, unspecified whether angina present Gastroesophageal reflux disease, unspecified whether esophagitis present Essential hypertension Unspecified essential hypertension Anemia, unspecified type Follow-up examination after colorectal surgery- Primary Follow-up examination, following other surgery documented in this encounter [facility]* Diagnosis Preop examination- Primary Unspecified pre-operative examination Coronary artery disease, unspecified vessel or lesion type, unspecified whether angina present, unspecified whether [place] or transplanted heart [facility] Diagnosis Onset Date Resolution Status Admit Date Iron deficiency anemia acuteOctober 2024 1:24pmStricture of small intestineacuteOctober 2024 1:24pm [facility] Work Phone: Hisjrly general Narrative - Reported* Type Description Date Surgical History knee replacement-right Surgical Historyknee arthroscopy-leftSurgical Historyback surgerySurgical HistoryNeck SurgerySurgical Historyganglion cyst-leftSurgical Historyheart stent [employer] Other Hisswwa general Narrative - Reported* Type Description Date Medical History Afib Surgical Historyknee replacement-rightSurgical Historyknee arthroscopy-left Surgical Historyback surgerySurgical HistoryNeck SurgerySurgical Historyganglion cyst-leftSurgical Historyheart stentSurgical Historycardiac ablasion [employer] Other Hospital Discharge instructions No data available for this section [facility] Discharge instructionsAdditional Instructions DISCHARGE INSTRUCTIONS FOR COLONOSCOPY WHAT TO EXPECT: - You may feel full, gassy or cramping after your procedure. In some cases, this may be from a few hours to a day. Walking may help relieve the discomfort. - If you have polyp(s) removed you may note some minor bloody discharge after your first bowel movements. - You should begin to recover from anesthesia within 1 hour of the procedure, however may feel groggy for the next 24 hours. DO's AND DON'Ts: - Call your doctor right away if you have a hard abdomen, severe pain, are passing lots of bright red blood or clots. - Call your doctor if you develop any rashes, hives or difficulty breathing. - Let your doctor know if you have not had a bowel movement by 3 days after your procedure. - If you take 81 mg aspirin for your heart it is safe to resume this medication. - If you take other blood thinner medications your doctor will instruct you when these can safely be resumed. - Do NOT drive for 24 hours. - Do NOT operate machinery such as power tools, lawn mowers, snow blowers, sewing machines, etc. for 24 hours. - Avoid alcoholic beverages and drugs for allergies, nerves, or sleep. - Do NOT stay alone. Do NOT leave your child unattended. - Do NOT make important personal or business decisions or sign any legal documents. - Eat solid foods and drink liquids in smaller amounts than usual until normal appetite returns. If you should experience an upset stomach, liquids high in sugar content (soda, Shahriar-Aid, non-acid juices) are recommended. - You can resume normal activities tomorrow. FOLLOW UP & RECOMMENDATIONS: -Please call the office and make a follow up appointment to see me in 3 months if you do not have an appointment scheduled. -Notify the doctor if you have any problems. -Repeat colonoscopy pending biopsy result -Follow up with PCP. -Office number [phone]. [facility] Work Phone: Progress note No data available for this section [facility] Reason for referral (narrative)* Outpatient Procedure (Routine) - New RequestSpecialtyDiagnoses / ProceduresReferred By Contact [facility] Diagnoses Pre-op evaluation Procedures ECG COMPLETE ECG ROUTINE ECG W/LEAST 12 LDS W/I&R Dolly Nelson APRN.CNP [address] [place] [address] [facility] [place] [address] [place] [id number] Referral IDStatusReasonStart DateExpiration DateVisits RequestedVisits [id number] Request Auto-Generated Referral [facility] for referral (narrative)No reason for referral information availableC[facility] Work Phone: Summary Purpose Family History No Family History Records Found Relationship Condition Age at Onset Recorded Date/T nicolasa mother Heart disease Unknown Iron deficiencyUnknownfatherHistory of cardiac ablationUnknown Advance Directives No Advanced Directives Records Found Advance Directive Response Recorded Date/ Time Advance Directives No January 22 1:32pm Advance Directive Response Recorded Date/ Time Advance Directives No January 22 12:32pm Chief Complaint and Reason for Visit Chief Complaint Iron Deficiency Anem ia, Nausea, Abdominal Pain, Ep Chief Complaint K50.90 Chief Complaint 3 month follow up K50.90Reason for VisitAbdominal pain Crohn's disease Weight loss, non-intentional Chief Complaint Admit Date 6 month follow up December 06, 2024 12:4 8pm Chief Complaint Admit Date 6 month follow up/post surgery June 072024 1:24pm Reason for Visit Admit Date Iron deficiency anemia June 07, 2025 1:24pm Stricture of small intestine June 1:24pm Chief Complaint Admit Date 6 month follow up/post surgery June 072024 1:24pm K56.699 R10.9 June 22, 2025 1 0:33am Chief Complaint Admit Date 6 month follow up/post surgery June 072024 1:24pm K56.699 R10.9 June 22, 2025 1 0:33am iron def anemia July 07, 2025 8 :54am Additional Source Comments (unrecognized sect ion and content) No Status Records FoundNo Status Records FoundNo Status Records FoundNo Status Records FoundNo Status Records FoundNo Status Records FoundNo Status Records FoundNo Status Records FoundNo Status Records Found INFORMATION SOURCE (unrecogn ized section and content) DATE CREATED AUTHOR 07/22/2020 [facility] DATE CREATED AUTHOR AUTHOR'S ORGANIZ ATION 12/15/2021 [facility] DATE CREATED AUTHOR AUTHOR'S ORGANIZ ATION 08/05/2022 [facility] DATE CREATED AUTHOR AUTHOR'S ORGANIZ ATION 11/06/[address] [facility] DATE CREATED AUTHOR AUTHOR'S ORGANIZ ATION 10/05/2023 [facility] DATE CREATED AUTHOR AUTHOR'S ORGANIZ ATION 06/11/2024 [facility] DATE CREATED AUTHOR AUTHOR'S ORGANIZ ATION 08/23/2024 [facility] DATE CREATED AUTHOR AUTHOR'S ORGANIZ ATION 01/07/2025 [facility] DATE CREATED AUTHOR AUTHOR'S ORGANIZ ATION 07/12/2025 [facility] Care Team (unrecognized sect ion and content) Team Status: Active Member Role Status Dates Perico Mccabe MD Primary Care Provider Active Team Status: Inactive Member Role Status Dates Perico Mccabe MD Primary Care Provider Active Enoch Neal MDAttjessica ProviderActive Team Status: Inactive Member Role Status Dates Perico Mccabe MD Primary Care Provider Active Start: April 05, 2024 End: April 05atherine L Ly , DOAttending ProviderActiveStart: April 05, 2024 End: April 05, 2024 Team Status: Inactive Member Role Status Dates Perico Mccabe MD Primary Care Provider Active Start: April 16, 2024 End: April 16atherine L Ly , DOAttending ProviderActiveStart: April 16, 2024 End: April 16, 2024Team MemberRelationshipSpecialtyStart DateEnd Date Perico Mccabe MD PCP - GeneralFamily Medicine02/14/14Team MemberRelationshipSpecialtyStart DateEnd Date Perico Mccabe MD PCP - GeneralFamily Medicine02/14/14Team MemberRelationshipSpecialtyStart DateEnd Date Perico Mccabe MD PCP - GeneralFamily Medicine02/14/14Team MemberRelationshipSpecialtyStart DateEnd Date Perico Mccabe MD PCP - GeneralFamily Medicine02/14/14Team MemberRelationshipSpecialtyStart DateEnd Date Perico Mccabe MD PCP - [facility] Medicine02/14/14Team MemberRelationshipSpecialtyStart DateEnd Perico Smith MD [address] [place] [address] [facility] Njgdvrla57[facility]27[facility]23 Team Status: Inactive Member Role Status Jocy Mccabe MD Primary Care Provider Active Start: December 06, 2024 End: December 06atherine L Ly , DOAttending ProviderActiveStart: December 06, 2024 End: December 06, 2024 Team Status: Inactive Member Role Status Jocy Mccabe MD Primary Care Provider Active Start: June 07, 2025 End: June 07atherine L Ly , DOAttending ProviderActiveStart: June 07, 2025 End: June 07, 2025 Team Status: Active Member Role/Relationship Status Jocy Mccabe MD Primary Care Provider Active Team Status: Inactive Member Role/Relationship Status Jocy Mccabe MD Primary Care Provider Active Start: June 07, 2025 End: June 07atherine L Ly , DOAttending ProviderActiveStart: June 07, 2025 End: June 07, 2025 Team Status: Inactive Member Role/Relationship Status Jocy Mccabe MD Primary Care Provider Active Start: June 22, 2025 End: June 22atherine L Ly , DOAttending ProviderActiveStart: June 22, 2025 End: June 22, 2025 Team Status: Active Member Role/Relationship Status Jocy Mccabe MD Primary Care Provider Active Start: July 07, 2025 Nelly L Ly , DOAttending ProviderActiveStart: July 07, 2025 Nelly L Ly , DOOther ProviderActiveStart: July 07, 2025 REASON FOR VISIT (unrecogniz ed section and content) ReasonCommentsNew Patientretained capsuleReasonCommentsAnesthesia ConsultReason CommentsAnesthesia ConsultReasonCommentsPost Op Follow UpReasonCommentsPost Op Goals (unrecognized section and content) Goals may be documented in a n alternate section Source Comments (unrecognize d section and content) In the event this informatio n is protected by the Federal Confidentiality of Alcohol and Drug Abuse Patient Records regulations: The Federal rules restrict any use of the information to criminally investigate or prosecute any alcohol or drug abuse patient.[facility] HospitalIn the event this information is protected by the Federal Confidentiality of Alcohol and Drug Abuse Patient Records regulations: The Federal rules restrict any use of the information to criminally investigate or prosecute any alcohol or drug abuse patient.B[facility] HospitalIn the event this information is protected by the Federal Confidentiality of Alcohol and Drug Abuse Patient Records regulations: The Federal rules restrict any use of the information to criminally investigate or prosecute any alcohol or drug abuse patient.[facility] HospitalIn the event this information is protected by the Federal Confidentiality of Alcohol and Drug Abuse Patient Records regulations: The Federal rules restrict any use of the information to criminally investigate or prosecute any alcohol or drug abuse patient.[facility] HospitalIn the event this information is protected by the Federal Confidentiality of Alcohol and Drug Abuse Patient Records regulations: The Federal rules restrict any use of the information to criminally investigate or prosecute any alcohol or drug abuse patient.[facility] FOR RECORDS PERTAINING TO PATIENTS WHO [...] BE BASED ON THE PRIMARY CLINICAL RECORDS. [facility]. provides no warranty or guarantee of the accuracy or completeness of information in this document.
[2025-08-04 12:43] LABS: Anion Gap 9.7; Blood Urea Nitrogen 10.0 mg/dL (7.0-18.0); Calcium 8.3 mg/dL (8.5-10.1); Carbon Dioxide 31.3 mmol/L (21.0-32.0); Chloride 103 mmol/L (98-107); Estimated GFR (African America >60 (>=60 mL/min/1.73m^2); Estimated GFR (Non-African Ame >60 (>=60 mL/min/1.73m^2); Glucose 109 mg/dL (74-106); Potassium 4.0 mmol/L (3.5-5.1); Sodium 140 mmol/L (136-145)
== END 2025-08-04 11:49 | disposition home or self-care (01) ==
LOC: LAB 11:50
PROVIDERS: PCP Family Medicine; Visit Provider Nurse Practitioner Family
DX: I10 Essential (primary) hypertension (principal)
CPT/HCPCS: 36415; 80048